=== PATIENT | female | born 1950 | race Caucasian/White ===

== ENCOUNTER → 2021-03-01 11:41 | Outpatient (CLI) | payer MEDICARE, SELFPAY ==
--- NOTE | 2021-03-01 | EMB_PTH ---
PATIENT: MARCELLO CARRILLO LOC: [facility] U#:[id number] AGE/SX: 75/F ROOM: RE03/01/[address]: Dr. Bart Ceballos MD : 1950 BED: DIS: SPEC #: [id number] RECD: 03/01/21 13:30 STATUS: JOHNNY PAOLA #: [id number] ALVIN: 03/01/21 00:[address]: Bart Ceballos DEPT: SURGICAL PATHOLOGY RECD BY: Remigio Mcconnell Tissues: Endometrium, NOS Procedures: Surgery Specimen Level IV HEADER OPERATION: Endometrial biopsy PRE-OP DIAGNOSIS: Endometrial thickening TISSUE SUBMITTED: Endometrial biopsy MICROSCOPIC DIAGNOSIS Endometrial biopsy: Scant fragments of benign endometrial epithelium, consistent with atrophic endometrium. See comment. ISAIAS:christofer 03/04/2021 COMMENT The specimen predominantly consists of mucoid tissue. Clinical correlation and appropriate follow up are necessary. MICROSCOPIC DESCRIPTION Slides are reviewed. GROSS DESCRIPTION Received in fixative is one container labeled with the patient's name and designated EMB. The specimen consists of multiple fragments of hemorrhagic mucoid tissue that in aggregate measure 2.5 x 1 x 0.2 cm. The specimen is totally submitted in one cassette. / ISAIAS:christofer 03/01/21 TC:4 CPT: 80998
== END ==
PROVIDERS: Visit Provider Obstetrics & Gynecology
DX: R93.89 Abnormal findings on diagnostic imaging of other specified body structures (principal)
CPT/HCPCS: 88305

== ENCOUNTER 2021-03-25 09:29 | Day surgery (SDC) | payer MEDICARE, SELFPAY ==
--- NOTE | 2021-03-21 11:10 | EKG12_ITS ---
Test Reason : PREOP Blood Pressure : / mmHG Vent. Rate : 066 BPM Atrial Rate : 066 BPM P-R Int : 172 ms QRS Dur : 082 ms QT Int : 410 ms P-R-T Axes : 078 028 043 degrees QTc Int : 429 ms Normal sinus rhythm Low voltage QRS Borderline ECG Confirmed by CLARK PIRES, ABRAHAM ([id number]), editorial manager JEFFREY ADAN ([id number]) on 03/22/2021 11:19:59 A M Referred By: Bart Ceballos Confirmed By:CARINA RODAS MD
[2021-03-21 11:44] LABS: Hematocrit 43.7 % (37-47); Mean Corpuscular Hgb 29.6 pg (27.0-32.0); Mean Corpuscular Volume 92.4 fL (81-99); Mean Platelet Vol. 9.3 fl (6.2-12.0); Platelet Count 366 K/mm3 (150-450); RBC Distribution Width CV 12.4 % (11.6-14.6); RBC Distribution Width SD 42.6 fl (35.1-43.9); Red Blood Count 4.73 M/mm3 (4.2-5.4); White Blood Count 7.9 K/mm3 (4.4-11.0)
[2021-03-21 11:49] LABS: Partial Thromboplast Time 22.5 Seconds (24.1-36.2); Prothrombin Time (Protime)PT. 12.5 SECONDS (11.7-14.9)
[2021-03-21 12:06] LABS: ALB/GLOB Ratio 0.8 RATIO (0.9-2.4); AST(SGOT) 33 U/L (15-37); Alanine Aminotransfer ALT/SGPT 47 U/L (13-56); Albumin, Serum 3.1 g/dL (3.2-5.0); Alkaline Phosphatase 72 U/L (45-117); Anion Gap 7 (5-15); BUN 14 mg/dL (7-18); BUN/Creat Ratio 17.7 RATIO (10-20); Calcium,Total 9.1 mg/dL (8.5-10.1); Chloride 105 mmol/L (98-107); Creatinine, Serum 0.79 mg/dL (0.55-1.02); EST Glomerular Filtration Rate 76 mL/min (>60); Est Glom Filt Rate - Afr Amer 92 mL/min (>60); Glucose 95 mg/dL (74-106); Protein, Total 7.1 g/dL (6.4-8.2); Sodium Level 140 mmol/L (136-145)
--- NOTE | 2021-03-24 20:48 | HP.PCM_ITS ---
History and Physical Date of Admission: 03/25/21 Surgical History and Physical Jessika Mccain, a 70 year old female 3 0 0 0 3, presents for D and C, Hysteroscopy on March 25, 2021 at 12:30. -- Thickened Endometrium -- Jessika presents here today as referral from Shu Chow PA-C for thickened Endometrium. 70 y.o. G 3 P 3 post-menopausal non-smoker and reports that she had been having trouble with her lower back and had an MRI which revealed spurs on her back, but also a need for an US that she had at [facility] on 01-30-21 with thickened Endometrium of 15.9 mm . 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 Thick endometrium Jessika claims it started US 01-30-21 at [facility] and has been present 4 weeks ago. It occurs all the time. It is located in the Uterus. Jessika characterizes the quality asymptomatic. Severity is moderate and very concerned. Additional comments are: denies any vaginal bleeding. MEDICATIONS HISTORY: Patient is also takin. lisinopril 20 mg-hydrochlorothiazide 25 mg tablet, One pill by mouth once a day 2. metoprolol succinate ER 50 mg tablet,extended release 24 hr, One pill by mouth once a day ALLERGIES: No Known Allergies Infections - Chicken pox, Mumps and Measles Illnesses - HTN, Spurs on Back, Meineires Dx Accidents - None Hospitalizations - see surgery Review of Systems: GENERAL - Denies fever, or chills SKIN - Denies skin changes EYES - Denies visual changes EARS - Denies difficulty hearing NOSE - Denies nasal congestion or bleeding MOUTH - Denies sore throat or difficulty swallowing NECK - Denies pain or swelling RESPIRATORY - Denies shortness of breath or wheezing CARDIOVASCULAR - Denies palpitations or chest pain GASTROINTESTINAL - Denies nausea, vomiting, diarrhea, constipation GENITOURINARY - Denies dysuria, frequency of urination, incontinence of urine MUSCULOSKELETAL - Denies joint or muscle pain NEUROLOGICAL - Denies localized numbness or weakness PSYCHIATRIC - Denies depression or anxiety ENDOCRINE - Denies heat or cold intolerance, weight loss or gain HEMATO-IMMUNOLOGIC - Denies excesive bleeding with cuts SOCIAL HISTORY: Alcohol Use - None Smoking - Never Diet - no special diet Lifestyle - moderate stress lifestyle and Exercise - minimal Seat Belt Use - always Employer - [employer] Illicit Drug Use - None Sexual Activity - Spouse-Sig Other Name - Ar Spouse-Sig Other Occupation - [employer] Children Name(s) - 3 children Control - postmenopausal FAMILY HISTORY: MENSTRUAL HISTORY: LMP Known?- Postmenopausal PAST PREGNANCIES: Total Pregnancies - 3; Full Term Pregnancies - 3; Premature - 0; Abortions, Induced - 0; Abortions, Spontaneous - 0; Ectopics - 0; Multiple Births - 0; Living Children - 3 PHYSICAL EXAM BP- 138/74 Sitting, Right arm, large cuff Weight- 236.48445 lbs Height- 61.5 inch BMI:43.96 CONSTITUTIONAL - NAD, well nourished, and well developed SKIN - No rash, lesions, or ulcers HEENT - Normocephalic, PERRLA, EOMI NECK - No nodes, no nuchal rigidity and thyroid normal size and texture LYMPH NODES - Palpation of lymph nodes in neck and groins within normal limits LUNGS - CTA x2 without wheezes, crackles or rales CARDIAC - Regular rate and rhythm without rubs, murmurs, or gallops ABDOMEN - Without hepatosplenomegaly, distention, masses, rebound, or guarding; normal bowel sounds; no hernias EXTREMITIES - No edema or calf tenderness NEUROLOGICAL - Cranial nerves II-XII grossly intact PSYCHIATRIC - A and O to time, place, person, mood and affect External Genitial Vagina - non-tender without lesions Urethra/Urethral Meatus - non-tender Bladder - non-tender Vagina - loss of rugae and lax vaginal sidewalls Cervix - without cervical motion tenderness and has normal size and features without evident lesions Uterus - uterus 6-7 cm non tender Adnexa - clear without massess or tenderness ASSESSMENT/PLAN: 1. Abnormal Findings On Diagnostic Imaging Of Other Specified Body Structures EMBx results benign in the office. Likely polyp. Will proceed with D and C, H/S. Discussed RBAs and all questions answered.
--- NOTE | 2021-03-24 20:49 | PCM.HP.BLA ---
History and Physical Date of Admission: 03/25/21 Surgical History and Physical Wanda Denton, a 42 year old female 5 0 0 0 5, presents for L/S LSO and right salpingectomy on March 25, 2021 at 1:30. -- Chronic LLQ Pain; Prior ESSURE -- Concerns regarding LLQ pain from a (L) Ovarian cyst found on US in . 42 y.o. G 5 P 5 non-smoker with history of Irregular Menses and LMP of 12-25-20. Reports that the pain will often radiate around to her back, often cramping with a pulling, stabbing sensation. Adds that she feels very bloated and just not feeling well. LLQ Pain began 6 months ago. Wanda claims it started gradually and has been present Cyst on Ovary seen in . It occurs all the time. It is located in the LLQ of the abdomen. Wanda characterizes it to be to the back. Wanda characterizes the quality cramping.; Wanda characterizes the quality searing.; Wanda characterizes the quality stabbing. Severity is moderate and not improving; Associated signs and symptoms are no menses for 3-4 months. Additional comments are: Feels awful. Additional comments are: cyst noted on left ovary in November. MEDICATIONS HISTORY: Current medications prescribed by our practice are: 1. Provera 10 mg tablet, One pill by mouth once a day ALLERGIES: NKA Infections - Chicken pox Illnesses - no serious past illnesses Accidents - no injuries of consequence Hospitalizations - Childbirth Review of Systems: GENERAL - Denies fever, or chills SKIN - Denies skin changes EYES - Denies visual changes EARS - Denies difficulty hearing NOSE - Denies nasal congestion or bleeding MOUTH - Denies sore throat or difficulty swallowing NECK - Denies pain or swelling RESPIRATORY - Denies shortness of breath or wheezing CARDIOVASCULAR - Denies palpitations or chest pain GASTROINTESTINAL - Denies nausea, vomiting, diarrhea, constipation GENITOURINARY - Denies dysuria, frequency of urination, incontinence of urine MUSCULOSKELETAL - Denies joint or muscle pain NEUROLOGICAL - Denies localized numbness or weakness PSYCHIATRIC - Denies depression or anxiety ENDOCRINE - Denies heat or cold intolerance, weight loss or gain HEMATO-IMMUNOLOGIC - Denies excesive bleeding with cuts SOCIAL HISTORY: Alcohol Use - occasionally Smoking - denies use Diet - no special diet Lifestyle - Exercise - active Seat Belt Use - always 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 Maternal Grandfather: Prostate CA. MENSTRUAL HISTORY: LMP Known?- DefiniteAmount/Duration - 4 days, Regularity - Irregular, Frequency - monthly days, LMP - 12/24/20, Age Onset Menarche - 14 PAST PREGNANCIES: Total Pregnancies - 5; Full Term Pregnancies - 5; Premature - 0; Abortions, Induced - 0; Abortions, Spontaneous - 0; Ectopics - 0; Multiple Births - 0; Living Children - 5 SURGICAL HISTORY: 1. 05/30/2010 Essilana Tubal ; Bart Ceballos M.D. - PHYSICAL EXAM BP- 100/70 Sitting, Right arm, regular cuff Weight- 144.54102 lbs Height- 69.00 inch BMI:21.43 CONSTITUTIONAL - NAD, well nourished, and well developed SKIN - No rash, lesions, or ulcers HEENT - Normocephalic, PERRLA, EOMI NECK - No nodes, no nuchal rigidity and thyroid normal size and texture LYMPH NODES - Palpation of lymph nodes in neck and groins within normal limits LUNGS - CTA x2 without wheezes, crackles or rales CARDIAC - Regular rate and rhythm without rubs, murmurs, or gallops ABDOMEN - Without hepatosplenomegaly, distention, masses, rebound, or guarding; normal bowel sounds; no hernias EXTREMITIES - No edema or calf tenderness NEUROLOGICAL - Cranial nerves II-XII grossly intact PSYCHIATRIC - A and O to time, place, person, mood and affect ASSESSMENT/PLAN: 1. Abdominal Pain,LLQ Likely persistent left ovarian cyst by history and time course. Not resolving. Will proceed with L/S LSO and RS. Discussed RBAs including possibility of not helping or need for laparotomy.
[2021-03-25] VITALS (9 sets, daily range): BP systolic 137–169; BP diastolic 65–97; PULSE 58–70; RESP 16; TEMP 36.2–36.5; O2SAT 95–97; BMI 42.9
[2021-03-25] MEDS: Lactated Ringers 1,000 ML 100 ML IV (10:26)
--- NOTE | 2021-03-25 11:41 | PCM.OPRPT ---
Problems Associated Problem List Diagnoses (1) Abn findings- organs: Report of Operation Date of Procedure: 03/25/21 Pre-Operative Diagnosis: Thickened Endometrial Lining in Postmenopausal Patient Post-Operative Diagnosis: Thickened Endometrial Lining in Postmenopausal Patient Surgery/Procedure Performed:: Diagnostic Hysteroscopy, Dilation and Curettage Description of Surgical Findings:: 8 cm endometrial cavity with 1 x 3 cm endometrial polyp noted. Cervix high in vagina which would make robotic approach preferred if hysterectomy is necessary Surgeon: Bart Ceballos Type of Anesthesia: MAC Anesthesiologist: Ross Ayers Specimen's removed: Endocervical and endometrial curettings Estimated Blood Loss (mL): Minimal Fluids Replaced: Crystalloid Description of Procedure: Indications: This is a 70 year old patient who had a recent ultrasound done which showed a thickened endometrium of 15 mm. Given this we decided to proceed with the above surgery. The patient has been counseled regarding the risk and indications of this procedure including the possibility of bleeding, infection, and injury to surrounding structures such as bowel bladder. All questions were answered and we consider the patient well-informed. Procedure: The patient was taken to the operating room where after induction of general anesthesia, she was placed in the dorsolithotomy position and prepped and draped in the usual sterile fashion. Anterior cervix was grasped with the tenaculum and dilated to about 4-5 mm. Endocervical curettings were obtained. A 3 mm hysteroscope was placed in the uterus of the above findings were noted. Cervix was dilated to about 7-8 mm and uterus was gently curetted removing all contents. Hysteroscope was reinserted and all material was noted to be removed. In the course of the procedure approximately 100 cc of saline distending media was used and virtually all of this was recovered. Patient tolerated procedure well was taken to recovery room in satisfactory condition sponge instrument and needle counts were all reportedly correct. Estimated blood loss for the case was minimal. Specimens to pathology was endometrial and endocervical curettings Complications: None Grafts/Implants Used: None Complications None Admit VTE Documentation VTE Present on Admission: Yes VTE Mechan Device Prophylaxis: SCD's
--- NOTE | 2021-03-25 11:45 | DCINST_ITS ---
Discharge Instructions Diet Discharge Diet: No restrictions (Increase fluid intake for the next 48 hours.) Activity Discharge Activity: Return to Normal Activity, May not drive while taking narcotic pain medications., May Shower and May Take a Tub Bath May resume sexual activity in: 1 week Additional Activity Instructions:: Ambulate often the next week after surgery. Nothing in the vagina for 1 week. Dressing / Incision Call your doctor if your incision/area has: Continuous Slow Oozing, Sudden Increased Bleeding, Increased Pain/ Swelling, Increased Redness and Foul Smell ing Discharge Call your doctor if you observe: Fever of 101 or Higher, Inability to urinate, Inability to have a bowel movement and Using more than one pad per hour Follow Up Care Please Follow Up With: Bart Ceballos MD When: Call [phone] for an appointment in 2 to 3 weeks Test Results: Test results from this visit will be discussed in further detail at your follow-up appointment, if applicable. Discharge Plan Admission Primary Reason for Your Visit: Dilation and Curettage Attending Provider: Bart Ceballos Primary Care Provider: Shu Chow Discharge Orders/Prescriptions Prescriptions: Continued metoprolol tartrate 50 mg Tablet 50 mg PO DAILY RF: 0 lisinopril-hydrochlorothiazide 20-25 mg Tablet 1 tab PO DAILY RF: 0 calcium carbonate-vitamin D3 [Calcium 600 + D(3)] 600 mg(1,500mg) -400 unit Tablet 3 tab PO DAILY RF: 0 Referrals / Follow Up: hSu Chow PA [Primary Care Provider] - Disposition Disposition (needs filled in before D/C Order can be placed): Home, self care
--- NOTE | 2021-03-25 12:30 | EMB_PTH ---
PATIENT: MARCELLO [place]RILLO [place] [facility] [place][id number] AGE/SX: 70/F ROOM: RE03/25/[address]: Dr. Bart Ceballos MD : 1950 BED: DIS: 03/25/2021 SPEC #: [id number] RECD: 03/25/21 15:26 STATUS: JOHNNY PAOLA #: [id number] ALVIN: 03/25/21 12:[address]: Bart Ceballos DEPT: SURGICAL PATHOLOGY RECD BY: Katerin Scales ENTERED: 03/26/21 08:28 SP TYPE: ENDOM BX/C MANUELA DR: JUVENTINO Pérez Tissues: A - Endocervical B - Endometrium, NOS Procedures: Surgery Specimen Level IV HEADER OPERATION: Hysterectomy, dilation and curettage PRE-OP DIAGNOSIS: Thickened endometrial lining in postmenopausal patient TISSUE SUBMITTED: A ? Endocervical curettage, B ? Endometrial curettings MICROSCOPIC DIAGNOSIS A. Endocervix, curettings: Strips of benign superficial endocervix and squamous mucosa. B. Endometrium, curettings: Polypoid fragments of simple cystic hyperplasia without atypia. AM:christofer 03/27/2021 MICROSCOPIC DESCRIPTION Slides are reviewed. GROSS DESCRIPTION A - Received in fixative is one container labeled with the patient's name and designated endocervical curettings. The specimen consists of multiple irregular fragments of sofia mucoid tissue that in aggregate measure 2 x 1 x 0.1 cm. The specimen is totally submitted in one cassette. B - Received in fixative is one container labeled with the patient's name and designated endometrial curettings. The specimen consists of multiple variable sized fragments of sofia-pink polypoid tissue measuring in aggregate 3.5 x 3 x 1 cm. The largest piece measures 1.7 cm in greatest dimension. The largest piece is serially sectioned. The intermediate sized piece is bisected. The entire specimen is submitted in three cassettes. / SJ:christofer 03/26/21 TC:5 CPT: 86021 x2
== END 2021-03-25 13:58 | disposition home or self-care (01) ==
LOC: SDC 09:32 → AC 09:33
PROVIDERS: PCP Physician Assistant; Referring Provider Obstetrics & Gynecology; Visit Provider Obstetrics & Gynecology
PROC: 0UDB8ZZ Extraction of Endometrium, Via Natural or Artificial Opening Endoscopic (ICD-10-PCS; CPT 58558; principal; 2021-03-25 12:20)
DX: N85.01 Benign endometrial hyperplasia (principal); M19.90 Unspecified osteoarthritis, unspecified site; E78.00 Pure hypercholesterolemia, unspecified; I10 Essential (primary) hypertension; Z79.899 Other long term (current) drug therapy; Z87.891 Personal history of nicotine dependence; R94.31 Abnormal electrocardiogram [ECG] [EKG]
CPT/HCPCS: 00952; 58558; 36415; 80053; 85027; 85610; 85730; 86850; 86900; 86901; 87426; 88305; 93005; C9803; J7120; A4216

== ENCOUNTER 2025-03-20 11:03 | Day surgery (SDC) | payer MEDICARE, SELFPAY ==
[2025-03-20] VITALS (9 sets, daily range): BP systolic 122–171; BP diastolic 44–83; PULSE 54–65; RESP 14–16; TEMP 36.6–36.9; O2SAT 97–99; BMI 34.2
--- NOTE | 2025-03-20 11:15 | PCM.PRE.AN2 ---
ASA Classification* ASA Classification ASA Classification: 2 Assessment & Plan Anesthesia* Anesthesia Assessment Anesthesia Assessment: Discussed sedation and/or anesthesia options, risks, benefits, and alternatives with patient/parents/legal guardian/POA. Questions invited. The patient/parents/legal guardian/POA seems to understand and agrees to proceed with anesthesia plan. Reviewed the physical assessment, medical history, allergy history and patient home medications list prior to surgery/procedure/anesthetic and documented any changes. Performed airway and anesthesia risk assessments. Anesthesia Type Anesthesia Type: MAC Anesthesia Focused Assessment* Airway Assessment Mouth opens: >3 cm Mallampati Score: II Focused Labs Anesthesia Preop lab: CBC WBC 7.7 K/mm3 (4.4-11.0) 03/09/25 10:15 03/09/25 RBC 4.57 M/mm3 (4.2-5.4) 03/09/25 10:15 03/09/25 Hgb 13.9 g/dL (12.0-15.0) 03/09/25 10:15 03/09/25 Hct 41.3 % (37-47) 03/09/25 10:15 03/09/25 Plt Count 382 K/mm3 (150-450) 03/09/25 10:15 03/09/25 CHEMISTRY Potassium 4.2 mmol/L (3.3-5.1) 03/09/25 10:15 03/09/25 Sodium 139 mmol/L (133-145) 03/09/25 10:15 03/09/25 BUN 15 mg/dL (4-19) 03/09/25 10:15 03/09/25 Creatinine 0.74 mg/dL (0.70-1.20) 03/09/25 10:15 03/09/25 Glucose 101 mg/dL (70-99) H 03/09/25 10:15 03/09/25 COAG PT 12.5 SECONDS (11.7-14.9) 03/21/21 11:01 03/21/21 Pre-Assessment Diagnosis/Proposed Procedure Planned Operative Procedure(s): INSERTION VASCULAR PORT LEFT Anesthesia History 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 When Was Last Pacemaker Check QUESTION #4 FULL TEXT: You/Your Family Experience fever (hyperthermia) with Anesthesia Last Oral Intake Last Oral intake: Last Oral Intake NPO since Meds taken in AM with sips of water? Meds patient instructed to take am of surgery PONV PONV - internet sales representative: PONV - internet sales representative Female Yes 03/17/25 11:44 HX of Motion Sickness No 03/17/25 11:44 HX of N/V After Surgery No 03/17/25 11:44 Non-Smoker Yes 03/17/25 11:44 Duration of Surgery greater No 03/17/25 11:44 than 60 minutes Number of Risk Factors 2 03/17/25 11:44 PONV Score Moderate Risk 03/17/25 11:44 Height & Weight Height & Weight: Anesthesia: Height & Weight Height 5 ft 2 in 03/17/25 08:59 Weight: 84.822 kg 03/17/25 08:59 Respiratory Assessment Respiratory Assessment - internet sales representative: Respiratory Tract Infection Hx - internet sales representative Hx Respiratory Tract Infection No 03/17/25 11:44 STOP Sleep Apnea STOP Sleep Apnea - internet sales representative: STOP Sleep Apnea - internet sales representative Hx Hypertension Yes: controlled with med 03/17/25 11:44 Hx Sleep Apnea No 03/17/25 11:44 CPAP Yes 03/17/25 11:44 BIPAP Do you snore loudly (louder No 03/17/25 11:44 than talking or can be heard Do you often feel tired/ No 03/17/25 11:44 fatigued/ sleepy during daytime? Has anyone observed you stop No 03/17/25 11:44 breathing during sleep? STOP Results Negative 03/17/25 11:44 QUESTION #5 FULL TEXT : Do you snore loudly (louder than talking or can be heard through closed doors)? Tobacco Use History Tobacco Use History - internet sales representative: Tobacco Use History - internet sales representative Tobacco Use Non-smoker 03/18/21 09:51 Smoking Status Former smoker 03/17/25 11:44 Hx Tobacco Use No 03/17/25 11:44 Years Smoking Packs Smoked per Day Smoking Cessation Date was No - quit smoking greater 03/17/25 11:44 within the last 15 years than 15 years ago Hx Smoking Cessation Date 11/02/89 03/17/25 11:44 Hx Smoking Cessation No 03/17/25 11:44 Counseling Hematologic Medial History Hematologic Hx - internet sales representative: Hematologic Medical Hx - senior counsel commercial Hx of Blood Transfusion No 03/17/25 11:44 Hx of Transfusion in last 3 No 03/17/25 11:44 Months Date of Last Transfusion (if within last 3 months) Ever experience any problems No 03/17/25 11:44 with transfusion(s)? Specify any problems Hx of Preganancy in last 3 No 03/17/25 11:44 Months Nurse Filling Out Transfusion DSCHRIBER 03/17/25 11:44 & Questions: Date: 03/17/25 03/17/25 11:44 Time: 11:45 03/17/25 11:44 Patient unable to answer at this time (ie. confused, unrespo /Reproduction History /Reproductive History - internet sales representative: /Reproductive Hx- internet sales representative Hx Now Gestational Age (in weeks): EDC: Hx Hx Para Hx Section SAB No 03/17/25 11:44 Active Medications Active Medications: Current Medications Generic Name Dose Route Start Last Admin Trade Name Freq PRN Reason Stop Dose Admin Cefazolin Sodium 2 gm/ Sodium 110 mls @ 150 mls/hr 03/20/25 12:30 Chloride IV 03/20/25 13:13 INTRAOP ONE PFSH Medical History Loss of hearing Wears glasses Post-menopausal Cancer Asthma History of pain when walking Encounter for education Regional lymph node metastasis present Degenerative joint disease Arthritis High cholesterol Migraine headache History of Meniere's disease Former smoker Hx of echocardiogram Hypertension Home Medications ?Medication ?Instructions ?Recorded ?Last Taken ?Type lisinopril 20 1 tab PO DAILY 03/18/21 03/25/21 History mg-hydrochlorothiazide 25 mg tablet metoprolol tartrate 50 mg tablet 50 mg PO DAILY 03/18/21 03/25/21 History multivitamin 1 tab PO QDAY 03/06/25 Unknown History turmeric 400 mg capsule 400 mg PO DAILY 03/06/25 Unknown History lidocaine-prilocaine 2.5 %-2.5 % 1 applic topical ONCE PRN port 03/15/25 Unknown Rx topical cream access 30 days #30 grams ondansetron 8 mg disintegrating 8 mg PO Q8H PRN nausea and 03/15/25 Unknown Rx tablet vomiting #30 tabs prochlorperazine maleate 10 mg 10 mg PO Q6H PRN nausea and 03/15/25 Unknown Rx tablet vomiting #30 tabs Allergy/AdvReac Type Severity Reaction Status Date / Time No Known Allergies Allergy Verified 03/17/25 11:42 Family History Father Heart disease Aunt Breast cancer Surgical History History of hysteroscopy History of colectomy History of total right knee replacement Hx of colonoscopy Social History Smoking Status: Former smoker Tobacco: How many years used: 5 alcohol intake: never substance use type: does not use Review of Systems (Anesthesia) ROS Narrative System reviewed and no additional complaints, except as documented.
--- NOTE | 2025-03-20 12:05 | PCM.HP.STD ---
HPI - General General Date of Admission: 03/20/25 Date of Service: 03/20/25 Chief Complaint: Mediport placement HPI Narrative MARCELLO CARRILLO, is a 74 F who presents today for Mediport placement. She was recently discovered to have colon cancer. Her treating oncologist have recommended chemotherapy. She is supposed to begin chemotherapy I believe on March 21. [facility] Medical History Loss of hearing Wears glasses Post-menopausal Cancer Asthma History of pain when walking Encounter for education Regional lymph node metastasis present Degenerative joint disease Arthritis High cholesterol Migraine headache History of Meniere's disease Former smoker Hx of echocardiogram Hypertension Home Medications ?Medication ?Instructions ?Recorded ?Last Taken ?Type lisinopril 20 1 tab PO DAILY 03/18/21 03/25/21 History mg-hydrochlorothiazide 25 mg tablet metoprolol tartrate 50 mg tablet 50 mg PO DAILY 03/18/21 03/20/25 07:00 History multivitamin 1 tab PO QDAY 03/06/25 Unknown History turmeric 400 mg capsule 400 mg PO DAILY 03/06/25 Unknown History lidocaine-prilocaine 2.5 %-2.5 % 1 applic topical ONCE PRN port 03/15/25 Unknown Rx topical cream access 30 days #30 grams ondansetron 8 mg disintegrating 8 mg PO Q8H PRN nausea and 03/15/25 Unknown Rx tablet vomiting #30 tabs prochlorperazine maleate 10 mg 10 mg PO Q6H PRN nausea and 03/15/25 Unknown Rx tablet vomiting #30 tabs Allergy/AdvReac Type Severity Reaction Status Date / Time No Known Allergies Allergy Verified 03/20/25 11:27 Family History Father Heart disease Aunt Breast cancer Surgical History History of hysteroscopy History of colectomy History of total right knee replacement Hx of colonoscopy Social History Smoking Status: Former smoker Tobacco: How many years used: 5 alcohol intake: never substance use type: does not use Vital Signs Vital Signs Vital Signs: Weight Weight: 187 lb Assessment & Plan Assessment/Plan (1) Colon cancer: QUALIFIERS: Colon location: ascending Qualified Code(s): C18.2 - Malignant neoplasm of ascending colon PLAN: Plan Patient is a 74-year-old female with recently discovered and treated colon cancer. Her treating oncologist are recommending chemotherapy. She presents today for port placement. This will begin shortly
[2025-03-20] MEDS: Lactated Ringers 1,000 ML 15 ML IV (12:12)
[2025-03-20] MEDS: Cefazolin 2 GM in 0.9% Normal Saline (100mL Bag) 100 ML IV (12:30)
[2025-03-20] MEDS: Lidocaine 1% /Epi 1:100 (20ml) 20 ML Vial (12:57)
[2025-03-20] MEDS: Bupivacaine Mpf 0.5% 30 ML VIAL (12:57)
--- NOTE | 2025-03-20 13:16 | EX.PCM.DISCH ---
Discharge Instructions Diet Discharge Diet: Light diet - advance as tolerated Activity Discharge Activity: May Shower May shower in (days): 2 Ice area for (Minutes): 30 Dressing / Incision Call your doctor if your incision/area has: Continuous Slow Oozing, Sudden Increased Bleeding, Increased Pain/ Swelling, Increased Redness, Foul Smelling Discharge and Swelling at the incision site Call your doctor if you observe: Fever of 101 or Higher Cleanse incision/area with: Soap & Water Follow Up Care Please Follow Up With: Michael Gaines MD When: as needed Test Results: Test results from this visit will be discussed in further detail at your follow-up appointment, if applicable. Discharge Plan Admission Primary Reason for Your Visit: Mediport placement Attending Provider: Michael Gaines Primary Care Provider: Shu Chow Instructions Print Language: Latvian Discharge Orders/Prescriptions Prescriptions: New oxycodone-acetaminophen [Percocet] 5-325 mg tablet 1 tab PO Q8H PRN (Reason: pain) 3 Days Qty: 5 0RF Continued multivitamin Tablet 1 tab PO QDAY turmeric 400 mg capsule 400 mg PO DAILY lidocaine-prilocaine 2.5-2.5 % cream 1 applic topical ONCE PRN (Reason: port access) 30 Days Qty: 30 2RF ondansetron 8 mg tablet,disintegrating 8 mg PO Q8H PRN (Reason: nausea and vomiting) Qty: 30 2RF prochlorperazine maleate 10 mg tablet 10 mg PO Q6H PRN (Reason: nausea and vomiting) Qty: 30 2RF metoprolol tartrate 50 mg Tablet 50 mg PO DAILY lisinopril-hydrochlorothiazide 20-25 mg Tablet 1 tab PO DAILY Referrals / Follow Up: Shu Chow PA [Primary Care Provider] - Disposition Disposition (needs filled in before D/C Order can be placed): Home, Self Care
--- NOTE | 2025-03-20 13:17 | PCM.POST.ANE ---
Anesthesia: Postop Eval I Current Vital Signs Temperature: 97.9 F Pulse Rate: 54 Blood Pressure: 124/52 Respiratory Rate: 14 Pulse Ox: 97 Oxygen Delivery Method: Room Air Assessment Airway patent: Yes Spontaneous unlabored respirations: Yes Mental status: Awake nausea: No Vomiting: No Anesthesia Complication: No Fluid Hydration Crystalloid volume administer (ml): 500 Total IV fluid infused: 500 Progress Note Anesthesia document: Postop Eval 1 completed: Yes
--- NOTE | 2025-03-20 13:21 | PCM.OPRPT ---
Problems Associated Problem List Diagnoses (1) Colon cancer: Procedures Cardiovascular CF Procedures [id number]: [id number] Insert tunneled cv cath Operative Report (Standard) Operative Information Date of Procedure: 03/20/25 Pre-Operative Diagnosis: Colon cancer Post-Operative Diagnosis: Colon cancer Surgery/Procedure Performed: Left subclavian Mediport placement with C arm extension service advisor: No Type of Anesthesia: Local and MAC RN Documented Start/Stop Times: Operation Date: 03/20/25 12:30 Case Time Into Pre-Op 03/20/25 11:17 Out of Pre-Op 03/20/25 12:24 Anesthesia Start 03/20/25 12:27 Into Room 03/20/25 12:27 Procedure Start 03/20/25 12:43 Procedure End 03/20/25 13:08 Anesthesia End 03/20/25 13:11 Out of Room 03/20/25 13:11 Into Recovery 03/20/25 13:15 Procedure Start Time: 12:43 Procedure Stop Time: 13:08 Select all DRAINS/GRAFTS/IMPLANTS that apply: Implanted device Implanted device details: PowerPort injectable Mediport Special Medications: 2 g Ancef IV preop Estimated Blood Loss: 5 mL Specimen collected: No Description of surgery: The patient is a 74-year-old female who was recently seen in the office with a new diagnosis of colon cancer. She has undergone surgery and her treating oncology team is recommending chemotherapy. As a result she presents for placement of a Mediport. In the office we discussed the details of the planned procedure as well as risks benefits and alternatives. She wishes to proceed. The patient was brought to the operating today following informed consent. Preoperative antibiotics were given and a timeout was performed. She was placed supine on the operative table with arms outstretched and arm boards. A MAC anesthesia was induced. Once adequately sedated an axillary roll was placed between her shoulder blades to improve exposure. The left upper chest and neck regions were prepped and draped in the usual manner. Local anesthetic was then injected in the left periclavicular area. Then using the supplied needle and syringe I was able to gain access to the left subclavian vein on the first pass. The blood return was a dark red, nonpulsatile, venous appearing blood return. The supplied guidewire was then threaded through the aperture and the needle. This was advanced without difficulty. It was secured to the drapes using a curved hemostat. C-arm was brought in and confirmed good positioning of the wire. A small incision was made in the left upper chest for placement of the subcutaneous hub of the port. Local anesthetic was injected into this area. Incision was made using #15 blade. Bovie electrocautery was then used dissect down through the subcutaneous tissues. A subcutaneous pocket was created. Another small incision was made at the entry point of the guidewire. The Mediport tubing was then attached to the tunneling device and this was used to tunnel with a tubing into the larger incision and up and out through the smaller more superior incision. Tubing was then trimmed to about 20 cm. No bed then attached to the port hub. The hub was then affixed to the underlying pectoralis fascia using Prolene suture x 2. The dilator and tear-away sheath were then threaded over the guidewire and was advanced. C arm was used to confirm good placement. The dilator and guidewire were then removed thus leaving that sheath in place. The free end of the Mediport tubing was then threaded down the sheath. The sheath was then extracted. The port was tested using injectable saline. It mirza and flushed easily. Hemostasis was excellent. The wound was then closed with 3-0 Vicryl and 4-0 Vicryl. Skin glue was applied as dressing. The port was then accessed using 1 inch Mccain needle accessing tubing. A sterile 2 x 2 was placed underneath the accessing needle. A large Tegaderm was then applied over the entire area. The access and tubing was able to draw and flush easily. It was then flushed with heparin flush. The patient was awakened from anesthesia and taken to recovery in good condition. Surgical Findings: See operative note Complications Complications: No Admit VTE Documentation VTE Present on Admission: No VTE Mechan Device Prophylaxis: SCD's VTE Pharm Prophylaxis ordered?: No Reason prophylaxis not ordered: Treatment Not Indicated
--- NOTE | 2025-03-20 13:23 | RAD_ITS ---
PROCEDURE: CXR FOR LINE PLACEMENT 03/20/2025 REASON FOR EXAM: NEW PORT PLACEMENT TECHNIQUE: Single AP upright view of the chest COMPARISON: November 17, 2024 FINDINGS: Heart normal size. New left central venous port in good position terminating in the superior vena cava. No infiltrates. No pleural effusions. No pneumothorax. Osseous structures grossly appear intact. RAD/CXR for Line Placement IMPRESSION: 1. New left central venous port in good position terminating in superior vena cava. 2. No infiltrates. 3. No pneumothorax. Reading [facility]
--- NOTE | 2025-03-20 14:24 | POSTOPAN2_ITS ---
Anesthesia Postop Eval I Sum Postop Eval Completion status Anesthesia document: Postop Eval 1 completed: Yes Anesthesia Postop Eval I Summary Anesthesia Postop Eval I Summary: Anesthesia Postop Eval I: Assessment Summary Airway patent Yes 03/20/25 13:18 REALTY [email or web address] Spontaneous unlabored Yes 03/20/25 13:18 REALTY [email or web address] [email or web address] respirations Mental status Awake 03/20/25 13:18 REALTY LOAN [email or web address] nausea No 03/20/25 13:18 REALTY LOAN [email or web address].[email or web address] Vomiting No 03/20/25 13:18 REALTY LOAN [email or web address].[email or web address] Anesthesia Postop Eval I: Fluid Summary Crystalloid volume administer 500 03/20/25 13:18 REALTY [email or web address] [email or web address] (ml) Colloids volume administered ( ml) Blood Product volume administered (ml) Total IV fluid infused 500 03/20/25 13:18 REALTY LOAN [email or web address].HBARR Anesthesia Postop Eval I: Summary Notes Anesthesia Complication No 03/20/25 13:18 REALTY [email or web address] Anesthesia Complication Comment: Post-operative progress note Anesthesia: Postop Eval II Evaluation Mental status: Awake Pain Level: 0 nausea: No Vomiting: No
--- NOTE | 2025-03-20 14:24 | PCM.POSTANE2 ---
Anesthesia Postop Eval I Sum Postop Eval Completion status Anesthesia document: Postop Eval 1 completed: Yes Anesthesia Postop Eval I Summary Anesthesia Postop Eval I Summary: Anesthesia Postop Eval I: Assessment Summary Airway patent Yes 03/20/25 13:18 NEW [email or web address] [email or web address] Spontaneous unlabored Yes 03/20/25 13:18 NEW [email or web address] [email or web address] respirations Mental status Awake 03/20/25 13:18 NEW GRAD [email or web address] nausea No 03/20/25 13:18 NEW GRAD [email or web address] Vomiting No 03/20/25 13:18 NEW GRAD [email or web address] Anesthesia Postop Eval I: Fluid Summary Crystalloid volume administer 500 03/20/25 13:18 NEW GRAD [email or web address] (ml) Colloids volume administered ( ml) Blood Product volume administered (ml) Total IV fluid infused 500 03/20/25 13:18 NEW GRAD [email or web address].HBARR Anesthesia Postop Eval I: Summary Notes Anesthesia Complication No 03/20/25 13:18 NEW GRAD [email or web address].HBARR Anesthesia Complication Comment: Post-operative progress note Anesthesia: Postop Eval II Evaluation Mental status: Awake Pain Level: 0 nausea: No Vomiting: No
== END 2025-03-20 14:56 | disposition home or self-care (01) ==
LOC: SDC 11:08 → AC 11:08
PROVIDERS: PCP Physician Assistant; Referring Provider Surgery; Visit Provider Surgery
PROC: (CPT 36561; principal; 2025-03-20 12:15)
DX: C18.2 Malignant neoplasm of ascending colon (principal); I10 Essential (primary) hypertension; J45.909 Unspecified asthma, uncomplicated; Z79.899 Other long term (current) drug therapy; Z87.891 Personal history of nicotine dependence
CPT/HCPCS: 36561; 00532; 71045; 77001; C1788; J2405

== ENCOUNTER 2025-05-13 12:10 | Inpatient (IN) | payer MEDICARE, SELFPAY ==
[2025-05-13] VITALS (13 sets, daily range): BP systolic 89–135; BP diastolic 53–92; PULSE 17–114; RESP 14–120; TEMP 36.8–38.3; O2SAT 94–99; BMI 32.5; BMI 33.9
--- NOTE | 2025-05-13 12:46 | CT_ITS ---
PROCEDURE: BRAIN/HEAD WITHOUT CONTRAST 05/13/2025 REASON FOR EXAM: HEAD TRAUMA TECHNIQUE: BRAIN/HEAD WITHOUT CONTRAST Coronal and Sagittal reconstruction series were provided. One or more dose reduction techniques were used (e.g., Automated exposure control, adjustment of the mA and/or kV according to patient size, use of iterative reconstruction technique. RADIATION DOSE SUMMARY: CTDlvol: 45 mGy DLP: 779 mGycm COMPARISON: None FINDINGS: Brain: There is calcification in the left parietal lobe measuring approximately 1.8 x 1.5 cm trans axially (series 2, image 26). No midline shift or mass effect. Bilateral basal ganglia calcifications. CSF Spaces: Unremarkable for age Sinuses/Mastoids: Clear at visualized levels Bones: No displaced fracture. Atherosclerotic calcification of the intracranial vasculature. CT/Brain/Head without Contrast IMPRESSION: Focal calcification in the left parietal lobe measuring up to 1.8 cm, concernin g for metastatic spread in this patient with history of colon cancer. Differential also includes other neoplasms (meningioma ) or sequela of prior insult (vascular, infectious/inflammatory). Recommend contrast-enhanced MRI for further evaluati on, if not previously performed. Reading Location: [id number]
--- OUTSIDE RECORDS SUMMARY | 2025-05-13 13:03 | XMS RPT_ITS | CCD ---
Author Organization [facility] Care Team Providers Care Decator Operator Name Role Phone Pavel Elkins Unavailable Unavailable Pavel Elkins Unavailable Unavailable Shu Chow PA-C Unavailable Shu Chow PA-C Unavailable Etta jewel lathe operator, . . Unavailable ENT Provider Unavailable Unavailable General Surgery Provider Unavailable Unavail able [facility], . Unavailable Lin PIRES, Dr. Bart Rausch Unavailable Orthopedic Provider Unavailable Unavailable Stella LAI, Hiral Shannon Unavailable [phone] Vanna AGRICULTURAL SCIENCES PROFESSOR, Becky Unavailable Joao ZHUN, Sasha Amador Unavailable Unavailable Keila ZHUN, Roverto Rausch Unavailable Unavailab Nicole Mcmillan Unavailable Unavailable Russ ZHUN, Irish Unavailable Unavailabl e Citlali AGRICULTURAL SCIENCES PROFESSOR, Venessa K Unavailable Josie Bray SECURITY INFRASTRUCTURE ENGINEER-C, Robin Shay Unavailable Khalida Loya RN Unavailable Unavailable Silvestre ZHUN, Karlie Unavailable Unavailable Nathalie Jett MA Unavailable Unavailable Benny AGRICULTURAL SCIENCES PROFESSOR, Andrew Unavailable Unavailable Unavailable Unavailable Carlie Xiao LPN Unavailable Unavailabl SHU Neves Consulting Unavailable KALPESH BOLES DR Admitting Unavailable KALPESH BOLES DR Attending Unavailable KALPESH BOLES DR Primary Care Unavailable PROVIDER, UNKNOWN Consulting Unavailable SHU CHOW Consulting Unavailable KALPESH BOLES DR Admitting Unavailable KALPESH BOLES DR Attending Unavailable KALPESH BOLES DR Primary Care Unavailable PROVIDER, UNKNOWN Consulting Unavailable SHU CHOW Consulting Unavailable BOLES, FLEX Primary Care Unavailable BOLES, FLEX Admitting Unavailable BOLES, FLEX Attending Unavailable PROVIDER, UNKNOWN Consulting Unavailable BOLES, FLEX Attending Unavailable CHOW, SHU J Consulting Unavailable BOLES, FLEX Primary Care Unavailable BOLES, FLEX Admitting Unavailable PROVIDER, UNKNOWN Consulting Unavailable CHOW, SHU J Consulting Unavailable BOLES, FLEX Primary Care Unavailable BOLES, FLEX Admitting Unavailable BOLES, FLEX Attending Unavailable PROVIDER, UNKNOWN Consulting Unavailable RAMSEY, YARI PAC Admitting Unavailable CHOW, SHU J Consulting Unavailable RAMSEY, YARI PAC Attending Unavailable RAMSEY, YARI PAC Primary Care Unavailable PROVIDER, UNKNOWN Consulting Unavailable CHOW, SHU J Consulting Unavailable CHOW, SHU J Primary Care Unavailable CHOW, SHU J Admitting Unavailable CHOW, SHU J Attending Unavailable PROVIDER, UNKNOWN Consulting Unavailable Chow PA-C, Shu J Primary Care Provider Santana TELLO, Hiral Mays Unavailable Unavaila brant LEGER, Sachi Foster Unavailable Zeferino TELLO, Eleonora Unavailable Unavailable Amy Zhang Unavailable Unavailable Chow PA-C, Shu J Primary Care Provider Cheryl MACARIO, Crystal Unavailable Unavail able Chow PA, Shu Primary Care Provider Shikha Marroquin LPN Attending Provider Unavailab Dr. Sachi Steward MD Referring Provider Dr. [place] MD Attending Provider Dr. [place] MD Referring Provider Chow PA, Shu Referring Provider Keila MELLO-C, Alyssa Attending Provider Dr. Michael Gaines MD Attending Provider Dr. Michael Gaines MD Referring Provider Dr. Michael Gaines MD Other Provider [phone] Dr. [place] MD Referring Provider Dr. [place] MD Referring Provider Dr. [place] MD Referring Provider MACKENZIE REYES Attending Unavailable CHOW, SHU J Primary Care Unavailable CHAKA, SACHI G Referring Unavailable CHOW, SHU J Referring Unavailable CHOW, SHU J Primary Care Unavailable CHOW, SHU J Referring Unavailable CHOW, SHU J Primary Care Unavailable CHAKA, SACHI G Attending Unavailable CHOW, SHU J Primary Care Unavailable CHAKA, SACHI G Attending Unavailable CHAKA, SACHI G Referring Unavailable CHOW, SHU J Primary Care Unavailable CHAKA, SACHI G Attending Unavailable CHAKA, SACHI G Referring Unavailable CHOW, SHU J Primary Care Unavailable BOLESFLEX Referring Unavailable CHAKA, SACHI G Attending Unavailable CHOW, SHU J Referring Unavailable CHOW, SHU J Primary Care Unavailable CHAKA, SACHI G Attending Unavailable AGATA MONTOYA Attending Unavailable HCOW, SHU J Primary Care Unavailable MALICK RICCI Referring Unavailable CHOW, SHU J Referring Unavailable CHOW, SHU J Primary Care Unavailable CHAKA, SACHI G Attending Unavailable BOLES FLEX Referring Unavailable CHOW, SHU J Primary Care Unavailable CONSULT, ANESTHESIA PAIN MED Consulting Silvina vailable CHAKA, SACHI G Admitting Unavailable CHAKA, SACHI G Attending Unavailable ALEJANDROHTMACKENZIE PATEL Attending Unavailable CHOW, SHU J Primary Care Unavailable CHAKA, SACHI G Referring Unavailable Dr. [place] MD Referring Provider [phone] Michael Gaines Referring Unavailable WanekMichael Attending Unavailable WanekMichael Consulting Unavailable Chow, Shu Primary Care Unavailable Chow, Shu Primary Care Unavailable Chow, Shu Referring Unavailable [place] Attending Unavailable Chow, Shu Referring Unavailable Keila SECURITY INFRASTRUCTURE ENGINEER, Alyssa Attending Unavailable Chow, Shu Primary Care Unavailable Chow, Shu Referring Unavailable Keila SECURITY INFRASTRUCTURE ENGINEER, Alyssa Attending Unavailable Chow, Shu Primary Care Unavailable Chow, Shu Referring Unavailable Keila SECURITY INFRASTRUCTURE ENGINEER, Alyssa Attending Unavailable Chow, Shu Primary Care Unavailable Chow, Shu Referring Unavailable WanekMichael Attending Unavailable Chow, Shu Primary Care Unavailable Chow, Shu Primary Care Unavailable [place] Attending Unavailable Chaka, Sachi Referring Unavailable Chow, Shu Primary Care Unavailable Chow, Shu Referring Unavailable Keila SECURITY INFRASTRUCTURE ENGINEER, Alyssa Attending Unavailable Michael Gaines Referring Unavailable Michael Gaines Attending Unavailable [facility] Primary Care Unavailable Chow Shu Primary Care Unavailable [place] Referring Unavailable [place] Attending Unavailable [facility] Care Unavailable Shikha Marroquin Attending Unavailable Medications Current Medications Medication Drug Class(es) Dates Sig (Normalized) Sig (Original) acetaminophen 325 mg oral tablet (7 sources) Start: 01-24-2025 End: 02-03-2025 take 2 tablets by mouth every eight hours Acetaminophen 325 MG tablet Take 2 tablets by mouth every 8 hours for 10 days. 60 tablet 01/24/2025 Active Start: 01-23-2025 End: 01-28-2025 take 1 tablet by mouth every eight hours 975 mg, Oral, EVERY 8 HOURS NON-STANDARD, First dose on Thu01/23/25 at 1500, Until Discontinued, Maximum dose of acetaminophen is 4000 mg from all sources in 24 hours., Post-op/Post-Proc Start: 01-23-2025 End: 01-23-2025 take 4000 mg by mouth every twenty-four hours 975 mg, Oral, ONCE, 1 dose, On Thu01/23/25 at 0600, Maximum dose of acetaminophen is 4000 mg from all sources in 24 hours., Pre-op/Pre-Proc End: 01-24-2025 Acetaminophen 325 MG tablet Take 1 tablet by mouth as needed for Mild Pain. 01/24/2025 Discontinued (Stop Taking at Discharge) acetaminophen 325 mg / oxyCODONE hydrochloride 5 mg oral tablet (5 sources) Opioid Agonist Start: 03-20-2025 take 1 tablet by mouth every eight hours as needed for pain Oxycodone-Acetaminophen (Percocet) 5-325 mg tablet Active 1 {tbl} PO Q8H as needed for pain 5 3 0 March 20, 2025 Malignant neoplasm of colon Malignant neoplasm of ascending colon calcium citrate 950 mg oral tablet (8 sources) take 1 tablet by mouth once daily in the morning Calcium citrate 950 (200 Ca) MG tablet Take 1 tablet by mouth daily every morning. Active Calcium Citrate / Vitamin D (20 sources) Calcium-Vitamin D gabapentin 100 mg oral capsule (4 sources) Anti-epilept ic Agent Start: 01-23-2025 End: 02-03-2025 take 1 capsule by mouth every eight hours Gabapentin 100 MG capsule Take 1 capsule by mouth every 8 hours for 10 days. 30 capsule 01/24/2025 02/03/2025 Active Start: 01-23-2025 End: 01-23-2025 take 1 dose by mouth once 300 mg, Oral, ONCE, 1 dose, On Thu01/23/25 at 0600, Pre-op/Pre-Proc hydroCHLOROthiazide 25 mg / lisinopril 20 mg oral tablet (20 sources) Thiazide Diuretic, Angiotensin Converting Enzyme Inhibitor Start: 06-27-2024 lisinopriL 20 mg-hydrochlorothiazide 25 mg tablet ; 1 (one) Tablet daily for 0 days Quantity: 90 {Tablet} Refills: 1 Ordered: 24-Feb-2025 JOELLE Chow Start: 24-Feb-2025 Start: 02-05-2024 lisinopriL 20 mg-hydrochlorothiazide 25 mg tablet ; 1 (one) Tablet daily for 0 days Quantity: 90 {Tablet} Refills: 1 Ordered: 05-Feb-2024 JOELLE Chow Start: 05-Feb-2024 Start: 01-20-2024 lisinopriL 20 mg-hydrochlorothiazide 25 mg tablet ; 1 (one) Tablet daily for 0 days Quantity: 30 {Tablet} Refills: 0 Ordered: 20-Jan-2024 JOELLE Chow Start: 20-Jan-2024 Start: 03-18-2021 Lisinopril-Hyd rochlorothiazide 20-25 mg Tablet Active 1 {tbl} PO DAILY March 18, 2021 12:00am ibuprofen 600 mg oral tablet (3 sources) Nonsteroidal Anti-inflammatory Drug Start: 01-23-2025 End: 02-03-2025 take 1 tablet by mouth every eight hours Ibuprofen 600 MG tablet Take 1 tablet by mouth every 8 hours for 10 days. 30 tablet 01/24/2025 02/03/2025 Active lidocaine 25 mg/ml / prilocaine 25 mg/ml topical cream (7 sources) Antiarrhythmic, Amide Local Anesthetic Start: 03-15-2025 Lidocaine-Priloc kevin 2.5-2.5 % cream Active 1 NMA TOPICAL ONCE as needed for port access 30 30 2 March 15, 2025 12:00am Malignant neoplasm of colon Malignant neoplasm of ascending colon 24 hr metoprolol succinate 50 mg extended release oral tablet (20 sources) beta-Adrenergic Leena Start: 02-23-2025 metoprolol succinate ER 50 mg tablet,extended release 24 hr ; 1 (one) Tablet once daily for 0 days Quantity: 90 {Tablet} Refills: 1 Ordered: 23-Feb-2025 JOELLE Chow Start: 23-Feb-2025 Start: 06-27-2024 End: 01-28-2025 metoprolol succinate ER 50 m g tablet,extended release 24 hr ; 1 (one) Tablet once daily for 0 days Quantity: 90 {Tablet} Refills: 1 Ordered: 23-Feb-2025 JOELLE Chow Start: 23-Feb-2025 Start: 02-05-2024 metoprolol suc cinate ER 50 mg tablet,extended release 24 hr ; 1 (one) Tablet once daily for 0 days Quantity: 90 {Tablet} Refills: 1 Ordered: 05-Feb-2024 JOELLE Chow Start: 05-Feb-2024 Start: 01-20-2024 metoprolol suc cinate ER 50 mg tablet,extended release 24 hr ; 1 (one) Tablet once daily for 0 days Quantity: 30 {Tablet} Refills: 0 Ordered: 20-Jan-2024 JOELLE Chow Start: 20-Jan-2024 Start: 07-27-2023 metoprolol suc cinate ER 50 mg tablet,extended release 24 hr ; 1 (one) Tablet once daily for 0 days Quantity: 90 {Tablet} Refills: 1 Ordered: 27-Jul-2023 JOELLE Chow Start: 27-Jul-2023 Start: 03-18-2021 take 1 tablet by bennie th once daily Metoprolol Tartrate 50 mg Tablet Active 50 mg PO DAILY March 18, 2021 12:00am Start: 04-29-2017 End: 12-10-2017 take 1 tablet by mouth once daily Metoprolol Tartrate 50 MG Oral Tablet ; 1 (one) Tablet daily for 0 days Quantity: 90 {Tablet} Refills: 3 Ordered: 10-Dec-2017 JOELLE Chow Start: 29-Apr-2017 End: 10-Dec-2017 Status: Inactive Multivitamin Adults Oral Tablet (20 sources) take 1 tablet by mouth once daily Multivitamin Adults Oral Tablet ; 1 daily Multivitamin tablet (7 sources) Start: 03-06-20 Multivitamin tablet Active 1 {tbl} PO daily March 06, 2025 12:00am ondansetron 8 mg disintegrating oral tablet (9 sources) Serotonin-3 Receptor Antagonist Start: 03-15-20 take 1 tablet by mouth every eight hours as needed for nausea and vomiting Ondansetron 8 mg tablet,disintegratin g Active 8 mg PO Q8H as needed for nausea and vomiting 30 March 15, 2025 12:00am Malignant neoplasm of colon Malignant neoplasm of ascending colon Start: 01-24-2025 End: 01-28-2025 take 4 mg intravenously every six hours as needed Start: 01-23-2025 End: 01-24-2025 take 4 mg intravenously every six hours 4 mg, Intravenous, EVERY 6 HOURS NON-STANDARD, 4 doses, First dose on Thu01/23/25 at 1300, Last dose on Thu01/24/25 at 0500, Post-op/Post-Proc prochlorperazine 10 mg oral tablet (8 sources) Phenothiazine Start: 03-15-2025 take 1 tablet by mouth every six hours as needed for nausea and vomiting Prochlorperazine Maleate 10 mg tablet Active 10 mg PO EVERY 6 HOURS as needed for nausea and vomiting March 15, 2025 12:00am Chemotherapy-induced nausea and vomiting Malignant neoplasm of colon Nausea with vomiting, unspecified Adverse effect of antineoplastic and immunosuppressive drugs, initial encounter Malignant neoplasm of ascending colon Start: 01-23-2025 End: 01-23-2025 5 mg, Intravenous, Administe r over 5 Minutes, ONCE NEEDED, 1 dose, Starting on Thu01/23/25 at 1105, Until Thu01/23/25 at 1229, Nausea / Vomiting, FIRST Line Agent, For IV route: dilute dose with 10mL normal saline and give by slow IV push at a rate of 5mg/min. Maximum of 40mg/day., Recovery Turmeric extract (20 sources) Start: 03-06-2025 take 1 capsule by mo uth once daily Turmeric 400 mg capsule Active 400 mg PO DAILY March 06, 2025 12:00am Start: 03-06-2025 take 1 mg by mouth once daily Turmeric 400 mg capsule Active mg PO DAILY March 06, 2025 12:00am take 1 capsule by mo uth once daily in the morning Turmeric 5-1000 MG capsule Take 1,000 mg by mouth daily every morning. Active Turmeric 5-1000 MG capsule Take by mouth. Active Turmeric Completed/Discontinued Medications Medication Drug Class(es) Dates Sig (Normalized) Sig (Original) amoxicillin 875 mg / clavulanate 125 mg oral tablet (20 sources) Penicillin-class Antibacterial Start: 01-02-2020 End: 01-12-2020 take 1 tablet by mouth twice daily at mealtime Amoxicillin-Pot Clavulanate 875-125 MG Oral Tablet ; 1 (one) Tablet BID for 10 days Quantity: 20 {Tablet} Refills: 0 Ordered: 02-Jan-2020 JOELLE Chow Start: 02-Jan-2020 End: 12-Jan-2020 Status: Inactive Comments: Take with food Start: 02-12-2015 End: 02-22-2015 take 1 tablet by mouth twice daily at mealtime AUGMENTIN, 875-125MG (Oral Tablet) ; 1 (one) Tablet BID for 10 days Quantity: 20 {Tablet} Refills: 0 Ordered: 12-Feb-2015 JOELLE Chow Start: 12-Feb-2015 End: 22-Feb-2015 Status: Inactive Comments: Take with food Comment on above: Take with food aspirin 81 mg delayed release oral tablet (20 sources) Platelet Aggregation Inhibitor, Nonsteroidal Anti-inflammatory Drug take 1 tablet by mouth once daily Aspirin 81 MG Oral Tablet Delayed Release ; 1 tablet daily (81 MG) Status: Inactive azithromycin 250 mg oral tablet (20 sources) Macrolide Antimicrobial Start: 10-09-20 16 End: 04-28-20 17 Zithromax Z-David 250 MG Oral Tablet ; 2 (two) Tabs day one, then one daily for 4 days for 0 days Quantity: 1 {Package} Refills: 0 Ordered: 28-Apr-2017 MIRIAM Solano Start: 09-Oct-2016 End: 28-Apr-2017 Status: Inactive benzonatate 100 mg oral capsule (20 sources) Non-narcotic Antitussive Start: 10-09-20 16 End: 04-28-20 17 take 1 capsule by mouth three times daily as needed Tessalon Perles 100 MG Oral Capsule ; 1 (one) Cap three times daily as needed for cough for 0 days Quantity: 30 {Cap} Refills: 0 Ordered: 28-Apr-2017 MIRIAM Solano Start: 09-Oct-2016 End: 28-Apr-2017 Status: Inactive Comments: Medication taken as needed. swallow whole Comment on above: Medication taken as needed. swallow whole calcium carbonate 1500 mg / cholecalciferol 0.01 mg oral tablet (7 sources) Vitamin D Start: 03-18-20 End: 03-06-20 Calcium Carbonate-Vitamin D3 (Calcium 600 + D(3)) 600 mg(1,500mg) -400 unit Tablet Discontinued 3 {tbl} PO DAILY March 18, 2021 12:00am March 06, 2025 4:49pm calcium chloride 0.0014 meq/ml / potassium chloride 0.004 meq/ml / sodium chloride 0.103 meq/ml / sodium lactate 0.028 meq/ml injectable solution (2 sources) Start: 01-26-20 End: 01-26-20 25 500 mL, Intravenous, ONCE, 1 dose, On Thu01/25/25 at 0800, Fluid Bolus Start: 01-23-2025 End: 01-24-2025 Intravenous, at 100 mL/hr, C ONTINUOUS, Starting on Thu01/23/25 at 1130, Until Thu01/24/25 at 0737, Post-op/Post-Proc ciprofloxacin 500 mg oral tablet (20 sources) Quinolone Antimicrobial Start: 10-04-2018 End: 10-11-2018 take 1 tablet by mouth twice daily Cipro 500 MG Oral Tablet ; 1 Tab two times daily for 7 days Quantity: 14 {Tablet} Refills: 0 Ordered: 04-Oct-2018 JOELLE Douglas Start: 04-Oct-2018 End: 11-Oct-2018 Status: Inactive 0.4 ml enoxaparin sodium 100 mg/ml prefilled syringe (1 source) Low Molecular Weight Heparin Start: 01-24-2025 End: 01-28-2025 inject 40 mg by subcutaneous injection every twenty-four hours 40 mg, Subcutaneous, EVERY 24 HOURS, First dose on Thu01/24/25 at 0900, Until Discontinued, For SUBCUTANEOUS route ONLY: alternate injection sites between left and right abdominal wall, pinching location and avoiding area around navel. If unable to use abdominal sites, may use the front or side of thighs., Indications: DVT/PE prophylaxis, Post-op/Post-Proc Gadopiclenol SOLN 1-25 mL (1 source) Start: 12-31-2024 End: 12-31-2024 1-25 mL, Intravenous, ONCE, 1 dose, On 12/31/24 at 0830 1 ml heparin sodium, porcine 5000 unt/ml prefilled syringe (1 source) Unfractionated Heparin, Anti-coagulant Start: 01-23-2025 End: 01-23-2025 5,000 Units, Subcutaneous, ONCE, 1 dose, On 01/23/25 at 0600, Pre op Nurse: Hold for patients receiving Intrathecal morphine or epidural. Consult with Anesthesia Team., Pre-op/Pre-Proc 1 ml hydrALAZINE hydrochloride 20 mg/ml injection (1 source) Arteriolar Vasodilator Start: 01-25-2025 End: 01-28-2025 take 10 mg intravenously every six hours as needed 10 mg, Intravenous, EVERY 6 HOURS NEEDED, Starting on Thu01/25/25 at 2038, Until 01/28/25 at 1438, SBP > 160 mmHg with HR hydroCHLOROthiazide 25 mg oral tablet (2 sources) Thiazide Diuretic Start: 01-27-2025 End: 01-28-2025 take 1 tablet by mouth once daily hydroCHLOROthiazide 25 MG tablet Take 1 tablet by mouth daily. 30 tablet 01/28/2025 01/28/2025 Discontinued (Stop Taking at Discharge) iohexol (OMNIPAQUE) 350 MG/ML injection 1-171 mL (1 source) Start: 12-31-2024 End: 12-31-2024 1-171 mL, Intravenous, ONCE, 1 dose, On 12/31/24 at 0815, Extravasation Risk, CT Procedure labetalol hydrochloride 5 mg/ml injectable solution (1 source) beta-Adrenergic Leena Start: 01-25-2025 End: 01-28-2025 take 10 mg intravenously every six hours as needed 10 mg, Intravenous, EVERY 6 HOURS NEEDED, Starting on Thu01/25/25 at 2030, Until 01/28/25 at 1438, SBP > 160 mmHg with HR >60 bpm, Administration duration: up to 20 mg over 2 minutes. Telemetry required except for COPING MACHINE OPERATOR patients on [address] Floors 6 and 7. For vials: labetalol should be treated as a SINGLE USE VIAL. Discard remaining contents after one use. lisinopril 20 mg oral tablet (2 sources) Angiotensin Converting Enzyme Inhibitor Start: 01-26-2025 End: 01-28-2025 take 1 tablet by mouth once daily Lisinopril 20 MG tablet Take 1 tablet by mouth daily. 30 tablet 01/28/2025 01/28/2025 Discontinued (Stop Taking at Discharge) 50 ml magnesium sulfate 80 mg/ml injection (1 source) Start: 01-25-2025 End: 01-25-2025 4 g, Intravenous, at 12.5 mL/hr, Administer over 4 Hours, ONCE, 1 dose, On Thu01/25/25 at 0615 meclizine hydrochloride 25 mg oral tablet (20 sources) Antiemetic Start: 06-18-2020 End: 01-09-2021 take 1 tablet by mouth every eight hours as needed for dizziness Meclizine HCl 25 MG Oral Tablet ; 1 (one) Tablet every 8 hours prn dizziness for 0 days Quantity: 30 {Tablet} Refills: 0 Ordered: 09-Jan-2021 MIRIAM Lynch Start: 18-Jun-2020 End: 09-Jan-2021 Status: Inactive melatonin 3 mg oral tablet (1 source) Start: 01-23-2025 End: 01-28-2025 take 6 mg by mouth once daily at bedtime as needed 6 mg, Oral, DAILY AT BEDTIME NEEDED, Starting on 01/23/25 at 1444, Until 01/28/25 at 1438, Insomnia, Post-op/Post-Proc metroNIDAZOLE 500 mg oral tablet (3 sources) Nitroimidazole Antimicrobial Start: 01-03-2025 End: 01-09-2026 metroNIDAZOLE 500 MG tablet On the day before your surgery: Take 2 tablets at 1 pm, 2 tablets at 2 pm, and 2 tablets at 9 pm 6 tablet 01/03/2025 01/24/2025 Discontinued (Stop Taking at Discharge) neomycin sulfate 500 mg oral tablet (3 sources) Aminoglycoside Antibacterial Start: 01-03-2025 End: 01-09-2026 Neomycin 500 MG tablet On the day before your surgery: Take 2 tablets at 1 pm, 2 tablets at 2 pm, and 2 tablets at 9 pm 6 tablet 01/03/2025 01/24/2025 Discontinued (Stop Taking at Discharge) nystatin 671261 unt/ml topical cream (20 sources) Polyene Antifungal Start: 06-15-2019 End: 01-29-2023 Nystatin 442995 UNIT/GM External Cream ; 1 (one) Application Application to affected areas BID for 0 days Quantity: 30 {Gram} Refills: 0 Ordered: 29-Jan-2023 JOELLE Chow Start: 15-Jun-2019 End: 29-Jan-2023 Status: Inactive oxyCODONE (2 sources) Opioid Agonist Start: 01-25-2025 End: 01-28-2025 take 1 tablet by mouth every four hours as needed oxyCODONE (ROXICODONE) tablet 5 mg Start: 01-24-2025 End: 01-27-2025 take 1 tablet by mouth every six hours as needed for pain oxyCODONE 5 MG tablet Indications: Malignant neoplasm of ascending colon Take 1 tablet by mouth every 6 hours as needed for Severe Pain for up to 3 days. 5 tablet 01/24/2025 01/27/2025 phenol 14 mg/ml mucosal spray (1 source) Start: 01-23-2025 End: 01-28-2025 microencapsulated potassium chloride 20 meq extended release oral tablet (1 source) Start: 01-25-2025 End: 01-25-2025 40 mEq, Oral, ONCE, 1 dose, On Thu01/25/25 at 0615, Swallow tablets whole; do not crush, chew, or suck on tablet. Tablet may also be broken in half and each half swallowed separately. Prochlorperazine (COMPAZINE) injection 10 mg (1 source) Start: 01-23-2025 End: 01-28-2025 take 10 mg intravenously every six hours as needed Prochlorperazine (COMPAZINE) injection 10 mg simvastatin 40 mg oral tablet (20 sources) HMG-CoA Reductase Inhibitor Start: 01-23-2022 End: 01-29-2023 take 1 tablet by mouth at bedtime Simvastatin 40 MG Oral Tablet ; 1 (one) Tablet at bedtime or with evening meal for 0 days Quantity: 90 {Tablet} Refills: 1 Ordered: 29-Jan-2023 JOELLE Chow Start: 23-Jan-2022 End: 29-Jan-2023 Status: Inactive 1000 ml sodium chloride 9 mg/ml injection (3 sources) Start: 01-25-2025 End: 01-26-2025 Intravenous, at 75 mL/hr, CONTINUOUS, Starting on 01/25/25 at 1730, Until Anne 01/26/25 at 0959 Start: 12-31-2024 End: 12-31-2024 1-250 mL, Intravenous, ONCE NEEDED, 1 dose, Starting on 12/31/24 at 0827, Until 12/31/24 at 0853, Flush, MR Procedure Problems Active Problems Problem Classification Problem Date Documented Da te Episodic/Chronic Acute bronchitis (20 sources) Acute bronchitis; Translations: [Acute bronchitis, unspecified] 10-09-2016 Episodic Administrative/social admission (15 sources) Patient encounter status; Translations: [Counseling, unspecified] Onset: 5 03-15-2025 Episodic Cancer of colon (20 sources) Malignant neoplasm of colon, unspecified; Translations: [Malignant tumor of ascending colon] Onset: 5 12-10-2024 Chronic Cardiac dysrhythmias (20 sources) Cardiac arrhythmia; Translations: [Cardiac arrhythmia, unspecified] 06-27-2024 Chronic Chronic obstructive pulmonary disease and bronchiectasis (20 sources) Bronchitis; Translations: [Bronchitis, not specified as acute or chronic] 04-22-2018 Episodic Conditions associated with dizziness or vertigo (20 sources) Dizziness; Translations: [Dizziness and giddiness] 11-09-2017 Episodic Deficiency and other anemia (5 sources) Anemia; Translations: [Anemia, unspecified] 04-18-2025 Episodic Deficiency and other anemia (2 sources) Anemia, unspecified; Translations: [Anemia, unspecified] Onset: 5 Episodic Disorders of lipid metabolism (20 sources) Hyperlipidemia; Translations: [Hyperlipidemia, unspecified] Onset: 5 11-23-2023 Chronic Comment on above: borderline E Codes: Adverse effects of medical drugs (1 source) Adverse effect of antineoplastic and immunosuppressive drugs, initial encounter; Translations: [Adverse effect of antineoplastic and immunosuppressive drugs, initial encounter] Onset: 5 Episodic Essential hypertension (20 sources) Hypertensive disorder; Translations: [Essential (primary) hypertension] Onset: 5 11-23-2023 Chronic Comment on above: controlled with med Immunizations and screening for infectious disease (20 sources) Needs influenza immunization; Translations: [Encounter for immunization] 10-03-2015 Episodic Maintenance chemotherapy; radiotherapy (13 sources) Patient encounter status; Translations: [Encounter for antineoplastic chemotherapy] Onset: 5 03-21-2025 Chronic Mycoses (20 sources) Candidal intertrigo; Translations: [Candidiasis of skin and nail] 01-02-2020 Episodic Nausea and vomiting (1 source) Nausea with vomiting, unspecified; Translations: [Nausea with vomiting, unspecified] Onset: 5 Episodic Nutritional deficiencies (20 sources) Vitamin D deficiency; Translations: [Vitamin D deficiency, unspecified] 11-23-2023 Chronic Osteoarthritis (20 sources) Arthritis; Translations: [Unspecified osteoarthritis, unspecified site] Onset: 4 11-23-2023 Chronic Other connective tissue disease (20 sources) Tenosynovitis of left radial styloid; Translations: [Radial styloid tenosynovitis [de Quervain]] 01-23-2022 Episodic Other gastrointestinal disorders (7 sources) Diarrhea due to drug; Translations: [Toxic gastroenteritis and colitis] 04-04-2025 Episodic Other gastrointestinal disorders (1 source) Toxic gastroenteritis and colitis; Translations: [Toxic gastroenteritis and colitis] Onset: 5 Episodic Other liver diseases (20 sources) Elevated liver enzymes level; Translations: [Abnormal levels of other serum enzymes] 11-23-2023 Episodic Other lower respiratory disease (20 sources) Lower respiratory tract infection; Translations: [Unspecified acute lower respiratory infection] 05-03-2020 Episodic Other lower respiratory disease (20 sources) Snoring; Translations: [Snoring] 04-22-2018 Episodic Other lower respiratory disease (20 sources) Apnea; Translations: [Apnea, not elsewhere classified] 04-22-2018 Episodic Other lower respiratory disease (20 sources) Multiple nodules of lung; Translations: [Other nonspecific abnormal finding of lung field] 03-09-2025 Episodic Other lower respiratory disease (1 source) Other nonspecific abnormal finding of lung field; Translations: [Other nonspecific abnormal finding of lung field] Onset: 5 Episodic Other nervous system disorders (7 sources) H/O: Meniere's disease; Translations: [Personal history of other diseases of the nervous system and sense organs] 03-09-2025 Episodic Comment on above: PATIENT STATES RESOL CYRUS Other non-traumatic joint disorders (20 sources) Pain in left knee; Translations: [Pain in joint, lower leg] 11-03-2018 Episodic Other nutritional; endocrine; and metabolic disorders (20 sources) Body mass index 40+ - severely obese; Translations: [Body mass index (BMI) 40.0-44.9, adult] 11-03-2018 Chronic Other nutritional; endocrine; and metabolic disorders (20 sources) Morbid obesity; Translations: [Morbid (severe) obesity due to excess calories] 11-23-2023 Chronic Other nutritional; endocrine; and metabolic disorders (13 sources) Obesity; Translations: [Obesity, unspecified] 07-27-2023 Chronic Other screening for suspected conditions (not mental disorders or infectious disease) (20 sources) Endometrium thickened; Translations: [Abnormal findings on diagnostic imaging of other specified body structures] 01-29-2023 Chronic Other screening for suspected conditions (not mental disorders or infectious disease) (20 sources) Computed tomography of brain abnormal; Translations: [Other abnormal findings on diagnostic imaging of central nervous system] Onset: 4 01-23-2022 Episodic Other upper respiratory infections (20 sources) Sinusitis; Translations: [Chronic sinusitis, unspecified] 05-03-2020 Chronic Residual codes; unclassified (20 sources) Obstructive sleep apnea syndrome; Translations: [Obstructive sleep apnea (adult) (pediatric)] 11-23-2023 Chronic Residual codes; unclassified (20 sources) Postmenopausal state; Translations: [Asymptomatic menopausal state] 11-23-2023 Episodic Secondary malignancies (20 sources) Regional lymph node metastasis present ; Translations: [Secondary and unspecified malignant neoplasm of lymph node, unspecified] 03-09-2025 Chronic Secondary malignancies (2 sources) Secondary and unspecified malignant neoplasm of lymph node, unspecified; Translations: [Secondary and unspecified malignant neoplasm of lymph node, unspecified] Onset: 5 Chronic Spondylosis; intervertebral disc disorders; other back problems (7 sources) Backache; Translations: [Dorsalgia, unspecified] 03-09-2025 Episodic Comment on above: bone spurs Unclassified (20 sources) Number of Children 07-27-2023 Comment on above: 3. Unclassified (20 sources) Number of Pregnancies 07-27-2023 Comment on above: 3. Unclassified (20 sources) Vaginal deliveries 07-27-2023 Comment on above: 3. Unclassified (20 sources) Follow up for multiple chronic conditions - The patient is here for follow-up of arthritis, hyperlipidemia, hypertension and obesity. The patient always takes the prescribed medications. No side effects noted. The patient engages in regular exercise program 3-5 times per week. The patient states that the disease has no overall impact. Note for Multiple chronic conditions follow-up: Hasn't been checking BP at home and had stressful 2 weeks which she thinks is playing role. 01-29-2023 Unclassified (20 sources) Follow up for multiple chronic conditions - The patient is here for follow-up of arthritis, hyperlipidemia, hypertension and obesity. The patient always takes the prescribed medications. No side effects noted. The patient engages in regular exercise program 3-5 times per week (walks). The patient's out of office blood pressure checks occur occasionally. The patient states that weight has increased. The patient states that the disease has no overall impact. Note for Multiple chronic conditions follow-up: Feeling well with no complaints. 08-01-2022 Unclassified (20 sources) Follow up for chronic condition - The patient is here for follow-up of hypertension, hyperlipidemia and obesity. The patient always takes the prescribed medications. No side effects noted. The patient engages in regular exercise program 3-5 times per week (every day). The patient's out of office blood pressure checks occur frequently. The patient states that weight has decreased. The patient states that the disease has no overall impact. Note for Chronic condition follow-up: Weight is down 16 pounds. 01-23-2022 Unclassified (20 sources) Endometrial thickening - Pt is here for follow up MRI; endometrial thickening noted on lumbar MRI ordered by ortho.Pt denies symptoms.No family history of uterine cancer.No spotting. 01-23-2021 Unclassified (20 sources) Follow up for multiple chronic conditions - The patient is here for follow-up of arthritis, hyperlipidemia, hypertension and obesity. The patient always takes the prescribed medications. No side effects noted. The patient has low activity level and no regular exercise program. The patient's out of office blood pressure checks occur occasionally. The patient states that weight has increased. The patient states that the disease has no overall impact. Note for Multiple chronic conditions follow-up: Pt need refills on both bp meds.Just started weight loss plan this week - said it was a rough winter. 01-09-2021 Unclassified (20 sources) MCR Well Adult - In general the patient feels well with no complaints, has good energy level and is sleeping well. The patient has a balanced diet and takes supplemental vitamins. The patient does not exercise and sleeps 9 hours per night. The patient denies having trouble with bathing, dressing/grooming, toileting, preparing meals and ambulating. The patient denies having trouble with grocery shopping, driving, use of telephone, housework, laundry, preparing/taking medications and finances. The first day of the last menstrual period was : (age 64). The patient performs monthly self breast exam. 06-18-2020 Unclassified (20 sources) [ADDITIONAL REASON] Follow up for multiple chronic conditions - The patient is here for follow-up of hyperlipidemia, hypertension, obesity and other condition(s) (NELSON, Vitamine D deficiency.). The patient always takes the prescribed medications. No side effects noted. The patient has an active lifestyle but no regular exercise program. The patient's out of office blood pressure checks occur occasionally and dietary compliance is fairly good usually adhering to recommendations. The patient states that breathing effort is stable, there is no recent angina or dyspnea, there are no vision changes or weakness (Last eye appointment was about 4 yrs ago.), pain is generally stable (arthritis. Appt with [facility] next week.), sleep patterns have improved and they do not have headaches. Note for Multiple chronic conditions follow-up: She said that her back was bothering her so [facility] checked and she has 5 spurs on the last 5 spine. 06-18-2020 Unclassified (20 sources) MCR Well Adult - In general the patient feels well with no complaints, has good energy level (depends on day) and is sleeping well. The patient has a balanced diet and takes supplemental vitamins. The patient does not exercise and sleeps 8 hours per night. The patient denies having trouble with bathing, dressing/grooming, toileting, preparing meals and ambulating. The patient denies having trouble with grocery shopping, driving, use of telephone, housework, laundry, preparing/taking medications and finances. The patient performs monthly self breast exam. The patient does not have Healthcare Power of Director Revenue or Living Will. 06-16-2019 Unclassified (20 sources) [ADDITIONAL REASON] Follow up for multiple chronic conditions - The patient is here for follow-up of arthritis, hyperlipidemia, hypertension, obesity and other condition(s) (moderate NELSON, vit D deficiency). The patient always takes the prescribed medications. No side effects noted. The patient has low activity level and no regular exercise program (walking). The patient's out of office blood pressure checks occur occasionally (once every 2 wks) and dietary compliance is fairly good usually adhering to recommendations. The patient states that breathing effort is stable, there is no recent angina or dyspnea, there are no vision changes or weakness (last eye appointment was about 4 years ago), pain is generally stable (none), sleep patterns have improved and they do not have headaches. Note for Multiple chronic conditions follow-up: Last office visit 11/04/2018. No CPAP.For 2-3 days has had red rash under both breasts. 06-16-2019 Unclassified (20 sources) Follow up for multiple chronic conditions - The patient is here for follow-up of arthritis, hyperlipidemia, hypertension, obesity and other condition(s) (moderate NELSON, vit D deficiency). The patient always takes the prescribed medications. No side effects noted. The patient has low activity level and no regular exercise program. The patient's out of office blood pressure checks occur occasionally (once a week; 134/77 last time) and dietary compliance is fairly good usually adhering to recommendations. The patient states that breathing effort is stable, there is no recent angina or dyspnea, there are no vision changes or weakness (last eye appointment was about 4 years ago), pain is generally stable, sleep patterns have improved and they do not have headaches. Note for Multiple chronic conditions follow-up: Does not have CPAP machine - never had CPAP titration done. 11-04-2018 Unclassified (20 sources) MCR Well Adult - In general the patient feels well with minor complaints (Last episode of dizziness was on 11/03/17 - blood pressure was 181/92 so she took meclizine, laid down and slept, and when she woke up she felt fine.), has good energy level and is sleeping well (does get up 2-3 times per night to urinate). The patient has a balanced diet and takes supplemental vitamins. The patient exercises weekly (bike inside) and sleeps 9 hours per night. The patient denies having trouble with bathing, dressing/grooming, toileting, preparing meals and ambulating. The patient denies having trouble with grocery shopping, driving, use of telephone, housework, laundry, preparing/taking medications and finances. The patient performs monthly self breast exam. The patient does not have Healthcare Power of Director Revenue or Living Will. 11-09-2017 Unclassified (20 sources) [ADDITIONAL REASON] Follow up from hospital stay - Name of Hospital: [facility]. Date of Admission: 10/25/2017. Date of Discharge: 10/26/2017. The patient was hospitalized for dizziness. New medications include aspirin , meclizene (and amoxicillin). Post hospital therapies ordered include none (After CT of brain - she needs MRI per hospital, ECHO, carotid doppler and sleep study). Patient was discharged to home. Note for Follow up from hospital stay: Labs, chest x-ray, EKG, and head CT were done. Head CT showed calcification of parietal complex.BP has been running 140s-170s/60s-70s. Has been doing good taking her meds regularly since hospital stay. 11-09-2017 Unclassified (20 sources) [ADDITIONAL REASON] Transition into care - The patient is transitioning into care from a hospital and a summary of care was reviewed. 11-09-2017 Unclassified (20 sources) Follow up for multiple chronic conditions - The patient is here for follow-up of hypertension, hyperlipidemia and other condition(s) (arthritis, vit D deficiency.). The patient always takes the prescribed medications. No side effects noted. The patient has an active lifestyle but no regular exercise program. The patient's out of office blood pressure checks occur rarely (145/?) and dietary compliance is fairly good usually adhering to recommendations. The patient states that breathing effort is stable, there is no recent angina or dyspnea, there are no vision changes or weakness, pain is generally stable and they do not have headaches. Note for Multiple chronic conditions follow-up: Her fall that occurred was when she was helping her grandson and missed the curb - fell down and hit her nose (improved now). 04-29-2017 Unclassified (20 sources) Follow up for multiple chronic conditions - The patient is here for follow-up of hypertension, hyperlipidemia, obesity, arthritis and other condition(s) (vit d deficiency). The patient always takes the prescribed medications. Side effects noted (she was getting hives so she figured it was from metoprolol so she cut out evening dose and only takes it 1 qd now and she doesn't have hives anymore). The patient's out of office blood pressure checks occur occasionally (once a wk; yesterday it was 140/67 (usually is lower than this)) and dietary compliance is fairly good usually adhering to recommendations. The patient states that breathing effort is stable, there is no recent angina or dyspnea, there are no vision changes or weakness, pain is generally stable and they do not have headaches. Note for Multiple chronic conditions follow-up: Weight is down 3 pounds in the past 6 months.Was not contacted regarding sleep study. 04-24-2016 Unclassified (20 sources) Follow up for multiple chronic conditions - The patient is here for follow-up of hypertension and hyperlipidemia (no med; just monitoring). The patient always takes the prescribed medications. No side effects noted. The patient has an active lifestyle but no regular exercise program. The patient's out of office blood pressure checks occur rarely (Last checked 2 months ago and it was 140s/70s.) and dietary compliance is fairly good usually adhering to recommendations (states has been using extra salt in food due to company). The patient states that breathing effort is stable, there is no recent angina or dyspnea, there are no vision changes or weakness, weight has increased (Weight is up 10 pounds since October.) and they do not have headaches. Note for Multiple chronic conditions follow-up: 10/2014: cmp,lipidOccasional feet/ankle swelling. 04-04-2015 Unclassified (20 sources) Follow up for chronic condition - The patient is here for follow-up of hypertension. The patient always takes the prescribed medications. No side effects noted (Take all of metoprolol at night and lisinopril-HCTZ at night; hasn't taken medication yet today). The patient has an active lifestyle but no regular exercise program. The patient's out of office blood pressure checks occur occasionally (Not as high as it was today.), dietary compliance is fairly good usually adhering to recommendations and dietary compliance is fair often eating foods not normally recommended. The patient states that breathing effort is stable, there is no recent angina or dyspnea, there are no vision changes or weakness, weight has increased (Up 2 pounds.) and they do not have headaches. Note for Chronic condition follow-up: Had colonoscopy done 06/2014 - normal. Still planning to do mammogram but hasn't yet. Has received pneumovax in the past but it was about 10 years ago. 10-04-2014 Unclassified (20 sources) Follow up for multiple chronic conditions - The patient is here for follow-up of hyperlipidemia, hypertension, obesity and other condition(s) (NELSON, Vitamine D deficiency.). The patient always takes the prescribed medications. No side effects noted. The patient has an active lifestyle but no regular exercise program. The patient's out of office blood pressure checks occur occasionally and dietary compliance is fairly good usually adhering to recommendations. The patient states that breathing effort is stable, there is no recent angina or dyspnea, there are no vision changes or weakness (Last eye appointment was about 4 yrs ago.), pain is generally stable (arthritis. Appt with [facility] next week.), sleep patterns have improved and they do not have headaches. Note for Multiple chronic conditions follow-up: She said that her back was bothering her so [facility] checked and she has 5 spurs on the last 5 spine. 06-18-2020 Unclassified (20 sources) [ADDITIONAL REASON] MCR Well Adult - In general the patient feels well with no complaints, has good energy level and is sleeping well. The patient has a balanced diet and takes supplemental vitamins. The patient does not exercise and sleeps 9 hours per night. The patient denies having trouble with bathing, dressing/grooming, toileting, preparing meals and ambulating. The patient denies having trouble with grocery shopping, driving, use of telephone, housework, laundry, preparing/taking medications and finances. The first day of the last menstrual period was : (age 64). The patient performs monthly self breast exam. 06-18-2020 Unclassified (16 sources) Follow up for multiple chronic conditions - The patient is here for follow-up of arthritis, hyperlipidemia, hypertension, obesity and other condition(s) (moderate NELSON, vit D deficiency). The patient always takes the prescribed medications. No side effects noted. The patient has low activity level and no regular exercise program (walking). The patient's out of office blood pressure checks occur occasionally (once every 2 wks) and dietary compliance is fairly good usually adhering to recommendations. The patient states that breathing effort is stable, there is no recent angina or dyspnea, there are no vision changes or weakness (last eye appointment was about 4 years ago), pain is generally stable (none), sleep patterns have improved and they do not have headaches. Note for Multiple chronic conditions follow-up: Last office visit 11/04/2018. No CPAP.For 2-3 days has had red rash under both breasts. 06-16-2019 Unclassified (16 sources) [ADDITIONAL REASON] MCR Well Adult - In general the patient feels well with no complaints, has good energy level (depends on day) and is sleeping well. The patient has a balanced diet and takes supplemental vitamins. The patient does not exercise and sleeps 8 hours per night. The patient denies having trouble with bathing, dressing/grooming, toileting, preparing meals and ambulating. The patient denies having trouble with grocery shopping, driving, use of telephone, housework, laundry, preparing/taking medications and finances. The patient performs monthly self breast exam. The patient does not have Healthcare Power of Director Revenue or Living Will. 06-16-2019 Unclassified (17 sources) Transition into care - The patient is transitioning into care from a hospital and a summary of care was reviewed. 11-09-2017 Unclassified (20 sources) [ADDITIONAL REASON] MCR Well Adult - In general the patient feels well with minor complaints (Last episode of dizziness was on 11/03/17 - blood pressure was 181/92 so she took meclizine, laid down and slept, and when she woke up she felt fine.), has good energy level and is sleeping well (does get up 2-3 times per night to urinate). The patient has a balanced diet and takes supplemental vitamins. The patient exercises weekly (bike inside) and sleeps 9 hours per night. The patient denies having trouble with bathing, dressing/grooming, toileting, preparing meals and ambulating. The patient denies having trouble with grocery shopping, driving, use of telephone, housework, laundry, preparing/taking medications and finances. The patient performs monthly self breast exam. The patient does not have Healthcare Power of Director Revenue or Living Will. 11-09-2017 Unclassified (20 sources) Follow up for multiple chronic conditions - The patient is here for follow-up of arthritis, hyperlipidemia, hypertension and obesity. The patient always takes the prescribed medications. No side effects noted. The patient has low activity level and no regular exercise program. The patient's out of office blood pressure checks occur occasionally. The patient states that there is no recent angina or dyspnea and they do not have headaches. The patient states that the disease has no overall impact. Note for Multiple chronic conditions follow-up: Patient states she feels well today, only minor complaint of leg stiffness. She states this is normal for her. 02-05-2024 Unclassified (3 sources) Follow up from hospital stay - Name of Hospital: [facility]. Date of Admission: 10/25/2017. Date of Discharge: 10/26/2017. The patient was hospitalized for dizziness. New medications include aspirin , meclizene (and amoxicillin). Post hospital therapies ordered include none (After CT of brain - she needs MRI per hospital, ECHO, carotid doppler and sleep study). Patient was discharged to home. Note for Follow up from hospital stay: Labs, chest x-ray, EKG, and head CT were done. Head CT showed calcification of parietal complex.BP has been running 140s-170s/60s-70s. Has been doing good taking her meds regularly since hospital stay. 11-09-2017 Unclassified (20 sources) Follow up from hospital stay - Name of Hospital: [facility]. Date of Admission: 01/23/25. Date of Discharge: 01/28/25. The patient was hospitalized for surgery (right hemicolectomy w/ intracorporeal anastomosis). No new medications were prescribed. Consultations ordered while in the hospital include surgery (Follow on 02/21/25). Post hospital therapies ordered include none (discussing at surgery follow up). Patient was discharged to home. Current Symptoms: bloating. Note for Follow up from hospital stay: Tylenol, ibuprofen and gabapentin. Has narcotic if has extreme pain but hasn't had to take that. Pain is 2-3/10.Having BMs - watery, pebble size BMs and passing gas. Some fecal incontinence when passing gas.She spoke to surgeon's office regarding the bloating and they weren't concerned. Don't want her taking stool softeners. Walking helps. 02-01-2025 Unclassified (14 sources) C18.2 - Malignant neoplasm of ascending colon,C77.9 - Secondary and unspecified malignant neoplasm of lymph node, unspecified Unclassified (2 sources) Malignant neoplasm of colon Urinary tract infections (20 sources) Acute urinary tract infection; Translations: [Urinary tract infection, site not specified] 10-04-2018 Episodic Past or Other Problems Problem Classification Problem Date Documented Date Episodic/Chronic Mood disorders (8 sources) Mood disorders Onset: 12-06-2024 Resolved: 02-21-2025 12-06-2024 Residual codes; unclassified (2 sources) Other specified health status; Translations: [Other specified health status] Onset: 01-16-2025 Episodic Unclassified (20 sources) Pre-operative clearance - Surgical procedure(s) planned: other (total right knee replacement). Date of procedure: (12/21/2023) Surgeon: (Dr Kalpesh Boles) and Location of procedure: ([facility]) There have been no problems with general anesthesia or blood/blood products. Note for Pre-operative clearance: Pt has an appt with Dr Kalpesh boles on 12/01. Will have preop appt with ortho on 12/09/23. 11-23-2023 Unclassified (20 sources) MCR Well Adult - In general the patient feels well with no complaints, has good energy level and is sleeping well. The patient has a balanced diet and takes supplemental vitamins. The patient exercises 3 - 4 times per week and sleeps 7 hours per night. The patient denies having trouble with bathing, dressing/grooming, toileting, preparing meals and ambulating. The patient denies having trouble with grocery shopping, driving, use of telephone, housework, laundry, preparing/taking medications and finances. The patient performs monthly self breast exam. The patient does not have Healthcare Power of Director Revenue or Living Will. Note for MCR Well Adult: Feeling well with no complaints. 07-27-2023 Unclassified (20 sources) Cold Symptoms - Symptoms include nasal congestion, runny nose, dry cough, productive cough, headache and facial pain, but do not include ear pain, sore throat (did but it is gone), fever, chills or general malaise. The onset was gradual 5 day(s) ago. The symptoms occur constantly. The patient describes this as moderate in severity and worsening (yesterday). Current treatment includes non-prescription cold medication, NSAIDs (nothing today) and vit C and E. The patient has been exposed to an individual with similar symptoms. Patient denies history of seasonal allergies, recurrent sinusitis, recurrent strep pharyngitis, asthma (possible- Dr Daily said she thought she did), tonsillectomy or recurrent ear infections. 01-02-2020 Unclassified (20 sources) UTI - Symptoms include dysuria, urinary frequency, urinary urgency and dark urine, but do not include hematuria, flank pain, abdominal pain or back pain. There is no assiciated pain. There is no radiation. The patient describes the pain as burning. Onset was gradual 2 week(s) ago. There is no known event that preceded symptom onset. The symptoms occur frequently. The patient describes this as moderate in severity and worsening. Symptoms are relieved by cranberry juice, but are not relieved by urinary anesthetics or non-opioid analgesics. Associated symptoms do not include fever, chills, nausea or vomiting. Risk factors include menopause. 10-04-2018 Unclassified (20 sources) Leg pain - The leg pain began gradually over time and has been occurring for 1 week. The symptoms have been occurring in an increasing pattern. The symptoms are described as a piercing pain and are moderate to severe. The symptoms occur on exertion, when climbing stairs and when walking. There is involvement of the left lower extremity. There are no precipitating factors. Aggravating factors include sitting, walking, running and climbing stairs. There has been no associated chest pain, dizziness, dyspnea, cough, fever or chills. There is a family history of hypertension, while there is no history of myocardial infarction before age 55, coronary artery disease, diabetes, elevated cholesterol, elevated triglycerides or peripheral vascular disease. Note for Leg pain: Iced it which took the swelling away but then it came back.Has had times of no pain at all. Has taken ibuprofen which helps.No recent prolonged travel or sitting prior to symptoms starting.No history of blood clots.Mentions that she had gone about 2 months without vertigo but then has had 2 in April. One happened when she was really tired. Dizzy, vomited, hot - took meclizine and slept and felt fine after that. Saw ENT and was told that ears were fine. Does have constant ringing in the ears. 04-23-2018 Unclassified (20 sources) Follow up diagnostic procedure results - Diagnostic tests performed on : (11/11/17) include mammography, MRI and other (echocardiogram, carotid doppler, sleep study - this was last week and results are not back yet). Follow up visit with no current symptoms. Note for Diagnostic procedure results follow-up: Last episode of vertigo was on Thursday - threw up with it but no headache or other symptoms with it. She took meclizine and slept and felt fine when she woke up. Has had a few other episodes (1-2 times/week) - usually takes meclizine right away and is fine. No known trigger.Has been taking higher dose of lisinopril-HCTZ but thought pharmacist told her she didn't need the metoprolol so hasn't been taking that since her last appt.BP is running 150-160s systolically but when has vertiginous episode it can go up to 170s-180s.Has been having constant humming/ringing in her left ear - seems to get more intense with the vertigo.Also has decreased hearing in the left ear with episodes - sounds like she is in a tunnel or muffled. 12-13-2017 Unclassified (20 sources) Cold Symptoms - Symptoms include nasal congestion, sore throat (improving), productive cough (yellow sputum), wheezing (at night time, has shortness of breath occasionally. Does have an achy pain of her left lower anterior chest. ), general malaise and headache, but do not include runny nose, ear pain, dry cough, fever, chills or facial pain. The onset was sudden 1 week(s) ago. The symptoms occur constantly. The patient describes this as moderate in severity and unchanged. Current treatment includes non-prescription cold medication (Tylenol Cold) and Vicks Vapor Rub ([place]). Risk factors do not include smoking. The patient has been exposed to an individual with an upper respiratory infection ([facility] Patient denies history of seasonal allergies, asthma or tonsillectomy. Note for Upper respiratory infection: Patient applied Vicks vapor rub to upper chest. Noticed that she developed a rash where she applied the Vicks Vapor rub. No previous rash developed in the past when patient used the Vicks Vapor rub. Reviewed by CHARISSE. 10-09-2016 Unclassified (20 sources) Well adult female - The patient feels well with no complaints, has good energy level and is sleeping well. The first day of the last menstrual period was : (1999). The patient has a balanced diet and takes supplemental vitamins. The patient exercises daily (q am). The patient sleeps 8 hours per night. Note for Well adult female: Pt has no complaints. 10-03-2015 Unclassified (20 sources) Cough - The onset of the cough has been gradual and has been occurring in a persistent pattern for 1 week (Last Thursday.). The course has been increasing. The cough occurs all the time. The cough is aggravated by the supine posture. Associated symptoms include headache (and ribs are sore when she coughs. SOB and pulse ox 96%. Has used throat/cough lozenges and uses vicks vapor rub at night and drinking fluids.) and sore throat (Had s/t when first started out with cough but none now.), while there is no fever or post-nasal drip. Note for Cough: Dry at times while other times will expectorate small amounts of yellowish colored sputum. + exposure to someone with similar symptoms. 02-12-2015 Unclassified (20 sources) Wrist pain - The pain is in the left wrist and is described as being located in the radial aspect of wrist. The onset of the wrist pain has been gradual and has been occurring in a persistent pattern for 2 months. The course has been worsening. The wrist pain is characterized as a moderate sharp stabbing. Aggravating factors include physical activity. Note for Wrist pain: Pt also has high bp. She was on metoprolol 50mg BID and lisinopril 20mg/HCTZ 12.5mg in the past but stopped 2-3 months ago because she wanted to change providers. Has ringing in her ears occasionally. No headaches or dizziness. Has been trying to eat better and walk more. Last mammogram and pap was 8-10 years ago. Has never had a colonoscopy. Had labs done through [facility] outreach screening but never received the results. If there is time today she would like to have a complete physical exam. 05-03-2014 Unclassified (20 sources) MCR Well Adult - In general the patient feels well with no complaints, has good energy level and is sleeping well. The patient has a balanced diet and takes supplemental vitamins. The patient exercises 3 - 4 times per week (walks) and sleeps 7 hours per night. The patient denies having trouble with bathing, dressing/grooming, toileting, preparing meals and ambulating. The patient denies having trouble with grocery shopping, driving, use of telephone, housework, laundry, preparing/taking medications and finances. The patient performs monthly self breast exam. The patient does not have Healthcare Power of Director Revenue or Living Will. Note for MCR Well Adult: Doing TOPS for weight loss - cut out all sweets but ice cream. 06-27-2024 Unclassified (1 source) Patient encounter status 01-11-2025 Unclassified (6 sources) MCR Well Adult - In general the patient feels well with minor complaints (Dx with colon cancer.), has decreased energy level and is sleeping well. The patient has a balanced diet and takes no supplemental vitamins & iron. The patient exercises 3 - 4 times per week and sleeps 8 hours per night. The patient denies having trouble with bathing, dressing/grooming, toileting, preparing meals and ambulating. The patient denies having trouble with grocery shopping, driving, use of telephone, housework, laundry, preparing/taking medications and finances. The patient performs monthly self breast exam. The patient does not have Healthcare Power of Director Revenue or Living Will. Note for MCR Well Adult: Has spoken with international recruiter and is in process.Started chemo - has had one treatment so far. Every other week x 12 sessions. 03-24-2025 Results Test Name Value Interpretation Reference Range Facility Carcinoembryonic Antigenon 0 05-03-2025 CEA 8.3 ng/mL High 0.0-4.7 [facility] Comment on above: Result Comment: Nons mokers <3.9 Smokers <5.6 [facility] Electrochemiluminescence Immunoassay (ECLIA) Values obtained with different assay methods or kits cannot be used interchangeably. Results cannot be interpreted as absolute evidence of the presence or absence of malignant disease. Performed at: - [facility], [place], [place] [id number] Agricultural Technician: Abimael Sheridan PhD, Phone: [phone] Performed By: #### L 503.0106, L503.6550, L3100.2300, L501.2300, L503.6030 ####[facility] [id number] [place], [address] Absolute lymphocyte countOrd ered By: [facility] on 05-02-2025 Lymphocytes Auto (Unsp spec) [#/Vol] 1.36 10*3/uL 0.83-4.51 [facility] Absolute neutrophil countOrd ered By: [facility] on 05-02-2025 Neutrophils (Bld) [#/Vol] 1.9 10*3/uL Low 2.0-7.7 [facility] Anion gap in Serum or Plasma Ordered By: [facility] on 05-02-2025 Anion gap [Moles/Vol] 13 mmol/L 5-15 [facility] Automated lymphocyte count a s percentage of total leukocytesOrdered By: [facility] on 05-02-2025 Lymphocytes/100 WBC Auto (Unsp spec) 32.5 % 19-41 [facility] BUN/creatinine ratioOrdered By: [facility] on 05-02-2025 Urea nitrogen/Creatinine [Mass ratio] 22.2 mg/mg High 10-20 [facility] Basophil percentageOrdered B y: [facility] [place] on 05-02-2025 Basophils/100 WBC (Bld) 1.0 % 0-1 [facility] Bilirubin, totalOrdered By: [facility] on 05-02-2025 Bilirubin [Mass/Vol] 0.31 mg/dL 0.00-1.30 [facility] CBC W/Diff, Automatedon Absolute Lymph 1.36 X10 3/uL Normal 0.83-4.51 [facility] Comment on above: Performed By: #### L 100.0100, L500.4050, L501.5200 #### [facility] [address] [place], [address] Absolute Neut 1.9 X10 3/uL Low 2.0-7.7 [facility] Comment on above: Performed By: #### L 100.0100, L500.4050, L501.5200 #### [facility] [address] [place], [address] Basophils/100 WBC (Bld) 1.0 % Normal 0-1 [facility] Comment on above: Performed By: #### L 100.0100, L500.4050, L501.5200 #### [facility] [address] [place], [address] Eosinophils/100 WBC (Bld) 8.6 % High 0-5 [facility] Comment on above: Performed By: #### L 100.0100, L500.4050, L501.5200 #### [facility] [address] [place], [address] Erythrocyte distribution width (RBC) [Ratio] 14.4 % Normal 11.6-14.6 [facility] Comment on above: Performed By: #### L 100.0100, L500.4050, L501.5200 #### [facility] [address] [place], [address] Hematocrit (Bld) [Volume fraction] 36.1 % Low 37-47 [facility] Comment on above: Performed By: #### L 100.0100, L500.4050, L501.5200 #### [facility] [address] [place], [address] Hemoglobin (Bld) [Mass/Vol] 11.9 g/dL Low 12.0-15.0 [facility] Comment on above: Performed By: #### L 100.0100, L500.4050, L501.5200 #### [facility] [address] [place], [address] IG% 0.700 Normal 0.0-0.9 [facility] Comment on above: Result Comment: IG% - Immature Granulocytes (promyelocytes, myelocytes and metamyelocytes) > 1% indicates that a LEFT SHIFT is Present. Performed By: #### L 100.0100, L500.4050, L501.5200 #### [facility] [address] [place], [address] Lymphocytes/100 WBC (Bld) 32.5 % Normal 19-41 [facility] Comment on above: Performed By: #### L 100.0100, L500.4050, L501.5200 #### [facility] [address] [place], [address] MCH (RBC) [Entitic mass] 29.8 pg Normal 27.0-32.0 [facility] Comment on above: Performed By: #### L 100.0100, L500.4050, L501.5200 #### [facility] [address] [place], [address] MCHC (RBC) [Mass/Vol] 33.0 g/dL Normal 32-36 [facility] Comment on above: Performed By: #### L 100.0100, L500.4050, L501.5200 #### [facility] [address] [place], [address] MCV (RBC) [Entitic vol] 90.5 fL Normal 81-99 [facility] Comment on above: Performed By: #### L 100.0100, L500.4050, L501.5200 #### [facility] [address] [place], [address] Monocytes/100 WBC (Bld) 11.5 % High 0-10 [facility] Comment on above: Performed By: #### L 100.0100, L500.4050, L501.5200 #### [facility] [address] [place], [address] Neutrophils/100 WBC (Bld) 45.7 % Low 47-70 [facility] Comment on above: Performed By: #### L 100.0100, L500.4050, L501.5200 #### [facility] [address] [place], [address] Nucleated RBC (Bld) [#/Vol] 0 10*3/uL Normal 0-5 [facility] Comment on above: Performed By: #### L 100.0100, L500.4050, L501.5200 #### [facility] [address] [place], [address] Platelet mean volume (Bld) [Entitic vol] 8.3 fL Normal 6.2-12.0 [facility] Comment on above: Performed By: #### L 100.0100, L500.4050, L501.5200 #### [facility] [address] [place], [address] Platelets (Bld) [#/Vol] 197 10*3/uL Normal 150-450 [facility] Comment on above: Performed By: #### L 100.0100, L500.4050, L501.5200 #### [facility] [address] [place], [address] RBC (Bld) [#/Vol] 3.99 10*6/uL Low 4.2-5.4 [facility] Comment on above: Performed By: #### L 100.0100, L500.4050, L501.5200 #### [facility] [address] [place], [address] RDW SD 43.6 fl Normal 35.1-43.9 [facility] Comment on above: Performed By: #### L 100.0100, L500.4050, L501.5200 #### [facility] [address] [place], [address] WBC (Bld) [#/Vol] 4.2 10*3/uL Low 4.4-11.0 [facility] Comment on above: Performed By: #### L 100.0100, L500.4050, L501.5200 #### [facility] [address] [place], [address] Carbon dioxide, total [Moles /volume] in Central venous bloodOrdered By: [place] on 05-02-2025 CO2 [Moles/Vol] 22.3 mmol/L 21.0-32.0 [facility] Chloride assayOrdered By: [place] on 05-02-2025 Chloride [Moles/Vol] 103 mmol/L 98-108 [facility] Comprehensive Metabolic Prof ilon 05-02-2025 Albumin [Mass/Vol] 3.4 g/dL Normal 3.4-4.8 [facility] Comment on above: Performed By: #### L 100.0100, L500.4050, L501.5200 #### [facility] [address] [place], [address] Albumin/Globulin [Mass ratio] 1.1 {ratio} Normal 0.9-2.4 [facility] Comment on above: Performed By: #### L 100.0100, L500.4050, L501.5200 #### [facility] [address] [place], [address] ALK PHOS 82 U/L Normal 35-104 [facility] Comment on above: Performed By: #### L 100.0100, L500.4050, L501.5200 #### [facility] [address] [place], [address] ALT [Catalytic activity/Vol] 53 U/L High <=34 [facility] Comment on above: Performed By: #### L 100.0100, L500.4050, L501.5200 #### [facility] [address] [place], [address] AST [Catalytic activity/Vol] 48 U/L High <=31 [facility] Comment on above: Performed By: #### L 100.0100, L500.4050, L501.5200 #### [facility] [address] [place], [address] Bilirubin [Mass/Vol] 0.31 mg/dL Normal 0.00-1.30 [facility] Comment on above: Performed By: #### L 100.0100, L500.4050, L501.5200 #### [facility] [address] [place], [address] BUN/CRE 22.2 RATIO High 10-20 [facility] Comment on above: Performed By: #### L 100.0100, L500.4050, L501.5200 #### [facility] [address] [place], [address] Calcium [Mass/Vol] 9.1 mg/dL Normal 7.6-11.0 [facility] Comment on above: Performed By: #### L 100.0100, L500.4050, L501.5200 #### [facility] [address] [place], [address] Chloride [Moles/Vol] 103 mmol/L Normal 98-108 [facility] Comment on above: Performed By: #### L 100.0100, L500.4050, L501.5200 #### [facility] [address] [place], [address] CO2 [Moles/Vol] 22.3 mmol/L Normal 21.0-32.0 [facility] Comment on above: Performed By: #### L 100.0100, L500.4050, L501.5200 #### [facility] [address] [place], [address] Creatinine [Mass/Vol] 0.76 mg/dL Normal 0.70-1.20 [facility] Comment on above: Performed By: #### L 100.0100, L500.4050, L501.5200 #### [facility] [address] [place], [address] ECRCL 60.24 ml/min Normal 50-250 [facility] Comment on above: Performed By: #### L 100.0100, L500.4050, L501.5200 #### [facility] [address] [place], [address] GAP 13 Normal 5-15 [facility] Comment on above: Performed By: #### L 100.0100, L500.4050, L501.5200 #### [facility] [address] [place], [address] GFR/1.73 sq M.predicted among non-blacks MDRD (S/P/Bld) [Vol rate/Area] 82 mL/min/{1.73_m2} Normal >60 [facility] Comment on above: Result Comment: mL/m in/1.73m2 CKD-EPI Creatinine Equation (2020) Performed By: #### L 100.0100, L500.4050, L501.5200 #### [facility] [address] [place], [address] Globulin (S) [Mass/Vol] 3.1 g/dL Normal 2.2-4.2 [facility] Comment on above: Performed By: #### L 100.0100, L500.4050, L501.5200 #### [facility] [address] [place], [address] Glucose [Mass/Vol] 153 mg/dL High 70-99 [facility] Comment on above: Performed By: #### L 100.0100, L500.4050, L501.5200 #### [facility] [address] [place], [address] Potassium [Moles/Vol] 3.3 mmol/L Normal 3.3-5.1 [facility] Comment on above: Performed By: #### L 100.0100, L500.4050, L501.5200 #### [facility] [address] [place], [address] Sodium [Moles/Vol] 138 mmol/L Normal 133-145 [facility] Comment on above: Performed By: #### L 100.0100, L500.4050, L501.5200 #### [facility] [address] [place], [address] T PROT 6.5 g/dL Normal 5.9-8.4 [facility] Comment on above: Performed By: #### L 100.0100, L500.4050, L501.5200 #### [facility] [address] [place], [address] Urea nitrogen [Mass/Vol] 17 mg/dL Normal 4-19 [facility] Comment on above: Performed By: #### L 100.0100, L500.4050, L501.5200 #### [facility] [address] [place], [address] Eosinophil percentageOrdered By: [place] on 05-02-2025 Eosinophils/100 WBC (Bld) 8.6 % High 0-5 [facility] Erythrocyte distribution wid th ratioOrdered By: [place] on 05-02-2025 Erythrocyte distribution width (RBC) [Ratio] 14.4 % 11.6-14.6 [facility] Erythrocyte distribution wid th standard deviationOrdered By: [place] on 05-02-2025 Erythrocyte distribution width (RBC) [Ratio] 43.6 fl 35.1-43.9 [facility] Ferritinon 05-02-2025 Ferritin [Mass/Vol] 151 ng/mL Normal 22-378 [facility] Comment on above: Performed By: #### L 503.0106, L503.6550, L3100.2300, L501.2300, L503.6030 ####[facility] [address] [place], [place], [id number] Glomerular filtration rate ( GFR) estimation/1.73 sq m using serum, plasma, or whole bOrdered By: [place] on 05-02-2025 GFR/1.73 sq M.predicted among non-blacks MDRD (S/P/Bld) [Vol rate/Area] 82 mL/min/{1.73_m2} >60 [facility] Comment on above: mL/min/1.73m2 CKD-EP I Creatinine Equation (2020) Hematocrit Auto (Bld) [Volum e fraction]Ordered By: [place] on 05-02-2025 Hematocrit (Bld) [Volume fraction] 36.1 % Low 37-47 [facility] Hemoglobin measurementOrdere d By: [place] on 05-02-2025 Hemoglobin (Bld) [Mass/Vol] 11.9 g/dL Low 12.0-15.0 [facility] Immature granulocytes/100 WB C Auto (Bld)Ordered By: [place] on 05-02-2025 Immature granulocytes/100 WBC (Bld) 0.700 % 0.0-0.9 [facility] Comment on above: IG% - Immature Granu locytes (promyelocytes, myelocytes and metamyelocytes) > 1% indicates that a LEFT SHIFT is Present. Iron+Iron Binding Capacityon 05-02-2025 Iron [Mass/Vol] 70 ug/dL Normal 50-170 [facility] Comment on above: Performed By: #### L 503.0106, L503.6550, L3100.2300, L501.2300, L503.6030 ####[facility] [id number] [place], [place], [id number] IRON SATURATION 21.0 Normal 13-59 [facility] Comment on above: Performed By: #### L 503.0106, L503.6550, L3100.2300, L501.2300, L503.6030 ####[facility] [address] [place], [address] TIBC 337 ug/dL Normal 250-450 [facility] Comment on above: Performed By: #### L 503.0106, L503.6550, L3100.2300, L501.2300, L503.6030 ####[facility] [address] [place], [address] UIBC 267 ug/dL Normal 228-428 [facility] Comment on above: Performed By: #### L 503.0106, L503.6550, L3100.2300, L501.2300, L503.6030 ####[facility] [address] [place], [address] Laboratory - Chemistry and C hemistry - challengeOrdered By: [place] on 05-02-2025 AST [Catalytic activity/Vol] 48 U/L High <32 [facility] MCV (mean corpuscular volume ) determinationOrdered By: [place] on 05-02-2025 MCV (RBC) [Entitic vol] 90.5 fL 81-99 [facility] Magnesiumon 05-02-2025 Magnesium [Mass/Vol] 2.1 mg/dL Normal 1.5-2.2 [facility] Comment on above: Performed By: #### L 100.0100, L500.4050, L501.5200 #### [facility] [address] [place], [address] Magnesium measurement (mass/ volume)Ordered By: [place] on 05-02-2025 Magnesium (Unsp spec) [Mass/Vol] 2.1 mg/dL 1.5-2.2 [facility] Mean corpuscular hemoglobin (MCH) determinationOrdered By: [place] on 05-02-2025 MCH (RBC) [Entitic mass] 29.8 pg 27.0-32.0 [facility] Mean corpuscular hemoglobin concentration (MCHC) determinationOrdered By: [place] on 05-02-2025 MCHC (RBC) [Mass/Vol] 33.0 g/dL 32-36 [facility] Mean platelet volume determi nationOrdered By: [facility] Senia on 05-02-2025 Platelet mean volume (Bld) [Entitic vol] 8.3 fL 6.2-12.0 [facility] Monocyte percentageOrdered B y: [facility] Senia on 05-02-2025 Monocytes/100 WBC (Bld) 11.5 % High 0-10 [facility] Neutrophil percentageOrdered By: [facility] on 05-02-2025 Neutrophils/100 WBC (Bld) 45.7 % Low 47-70 [facility] Nucleated red blood cell per centageOrdered By: [facility] on 05-02-2025 Nucleated RBC/100 WBC (Bld) [Ratio] 0 % 0-5 [facility] Oncology Visit Reporton 07 Oncology Visit Report [facility] [address] [place] [id number] OFFICE VISIT Date of Service: 05/02/25 0800 MR#: [id number] Acct: [id number] Name: JESSIKA CARRILLO Rep #: [id number] : 1950 From: Alyssa Lynch NP [employer]ITY [employer]URE ENGINEER -C Age/Sex: 74/F Location: [facility] Status: Signed HPI Subjective Date of Service 05/02/25 Chief Complaint Colon cancer on treatment History of Present Illness 74-year-old female with no family of colon cancer had screening colonoscopy August 17, [address] Boles at [place] with 2 sessile polypoid lesions were found, at 30 cm was positive for adenocarcinoma, the second lesion was at 50 cm no pathology was found. November 17, 2024 CT scan of the abdomen and pelvis showed a filling defect at the mid descending colon, none specific mesenteric lymph nodes, hypodense foci in the right and left hepatic lobes too small to characterize. Incidental findings were a right renal cyst and a 10 mm hypodense focus in the upper pole of the left kidney. Patient was then referred to [facility] for further management. December 31, 2024 MRI of the abdomen and pelvis: Benign cysts in the liver and kidney, ascending colonic mass with adjacent infiltrative or reactive inflammatory change with a mass abutting the inferior right lobe of liver without dividing the fat plane and right mesenteric lymphadenopathy. December 31, 2024 CT of the chest: 2 nonspecific pulmonary nodules in the left lung base measuring 6 mm and 3 mm. January 23, 2025 robotic right hemicolectomy at [facility] by Dr. Antonio. 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 Mismatch repair protein by IHC showed MLH1 absent/lost, PMS2 absent/lost, MSH2 present/intact, MSH6 present/intact. 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 No further testing was indicated. Treatment summary and response: January 23, 2025 robotic right hemicolectomy at [facility]. March 21, 2025 adjuvant modified FOLFOX 6 Interval History The patient is presenting to clinic accompanied by adult daughter, Don for an evaluation anticipating she will begin cycle 4 adjuvant mFOLFOX. Reports she had 4-6 episodes of diarrhea on days 4-6 of each cycle. Admits she usually has some episodes before she decides to use loperamide. However, loperamide is effective. . Appetite fair, PO fluid intake estimated as 2 L of fluid each day, water. No numbness/tingling outside of cold exposure. Denies fever/chills, sweats, headaches, dizziness, mouth sores, rash, abd pain, N/V, swelling of her extremities. [facility] Medical History Anemia Diarrhea due to drug Encounter for chemotherapy management Loss of hearing Wears glasses Post-menopausal Cancer Asthma History of pain when walking Encounter for education Regional lymph node metastasis present Degenerative joint disease Arthritis High cholesterol Migraine headache History of Meniere's disease Former smoker Hx of echocardiogram Hypertension Surgical History History of hysteroscopy History of colectomy History of total right knee replacement Hx of colonoscopy Family History Father Heart disease Aunt Breast cancer Social History Smoking Status: Former smoker Tobacco: How many years used: 5 alcohol intake: never substance use type: does not use ROS ROS Narrative Negative except as documented in the interval HPI Intake Vital Signs 04/18/25 09:29 05/02/25 08:03 Height 5 ft 2 in 5 ft 2 in Weight: 185 lb 180 lb 7 oz BMI 33.8 33.0 BP 129/83 H 118/76 Blood Pressure Location Lt brachial Rt brachial Position Sitting Sitting Respiration 16 18 Pulse 69 77 Pulse Source Monitor Monitor Temp 98.5 F 97.7 F L Temperature Source Temporal Artery Temporal Artery Pulse Oximetry (%) 96 97 Oxygen Delivery Method room air room air Intake Is patient in pain?: No Allergies No Known Allergies Allergy (Verified 05/02/25 08:04) Medications ???Medication ???Instructions ???Recorded ???Confirmed ???Type lisinopril 20 1 tab PO DAILY 03/18/21 05/02/25 H istory mg-hydrochlorothiazide 25 mg tablet metoprolol tartrate 50 mg tablet 50 mg PO DAILY 03/18/21 05/02/25 H ist (more content not included)... Normal [facility] Phosphoruson 05-02-2025 Phosphate [Mass/Vol] 3.0 mg/dL Normal 2.7-4.5 [facility] Comment on above: Performed By: #### L 503.0106, L503.6550, L3100.2300, L501.2300, L503.6030 #### [facility] [address] [place], [address] Platelet countOrdered By: Ru Conn on 05-02-2025 Platelets (Bld) [#/Vol] 197 10*3/uL 150-450 [facility] Potassium measurement (mass/ volume)Ordered By: [place] on 05-02-2025 Potassium (Unsp spec) [Mass/Vol] 3.3 mmol/L 3.3-5.1 [facility] RBC Auto (Bld) [#/Vol]Ordere d By: [place] on 05-02-2025 RBC (Bld) [#/Vol] 3.99 10*6/uL Low 4.2-5.4 [facility] Serum creatinine measurement (mass/volume)Ordered By: [place] on 05-02-2025 Creatinine [Mass/Vol] 0.76 mg/dL 0.70-1.20 [facility] Serum globulin measurementOr dered By: [place] on 05-02-2025 Globulin (S) [Mass/Vol] 3.1 g/dL 2.2-4.2 [facility] Serum glucose measurement (m ass/volume)Ordered By: [place] on 05-02-2025 Glucose [Mass/Vol] 153 mg/dL High 70-99 [facility] Serum or plasma alanine rojo otransferase (ALT) measurementOrdered By: [place] on 05-02-2025 ALT [Catalytic activity/Vol] 53 U/L High <35 [facility] Serum or plasma albumin alfredo urement (mass/volume)Ordered By: [place] on 05-02-2025 Albumin [Mass/Vol] 3.4 g/dL 3.4-4.8 [facility] Serum or plasma albumin/glob ulin mass ratioOrdered By: [place] on 05-02-2025 Albumin/Globulin [Mass ratio] 1.1 {ratio} 0.9-2.4 [facility] Serum or plasma alkaline marisabel sphatase measurementOrdered By: [place] on 05-02-2025 ALP [Catalytic activity/Vol] 82 U/L 35-104 [facility] Serum or plasma calcium alfredo urement (mass/volume)Ordered By: [place] on 05-02-2025 Calcium [Mass/Vol] 9.1 mg/dL 7.6-11.0 [facility] Serum or plasma urea nitroge n measurement (mass/volume)Ordered By: [place] on 05-02-2025 Urea nitrogen [Mass/Vol] 17 mg/dL 4-19 [facility] Sodium levelOrdered By: Kurt mejia Senia on 05-02-2025 Sodium [Moles/Vol] 138 mmol/L 133-145 [facility] Total proteinOrdered By: Shady burroughs Senia on 05-02-2025 Protein [Mass/Vol] 6.5 g/dL 5.9-8.4 [facility] Vitamin B12on 05-02-2025 Cobalamin (Vitamin B12) [Mass/Vol] 633 pg/mL Normal 180-914 [facility] Comment on above: Performed By: #### L 503.0106, L503.6550, L3100.2300, L501.2300, L503.6030 ####[facility] [address] [place], [address] White blood cell (WBC) count Ordered By: Kurtjackie Conn on 05-02-2025 WBC (Bld) [#/Vol] 4.2 10*3/uL Low 4.4-11.0 [facility] Absolute lymphocyte countOrd ered By: New [place] on 04-18-2025 Lymphocytes Auto (Unsp spec) [#/Vol] 1.59 10*3/uL 0.83-4.51 [facility] Absolute neutrophil countOrd ered By: [place] on 04-18-2025 Neutrophils (Bld) [#/Vol] 2.6 10*3/uL 2.0-7.7 [facility] Anion gap in Serum or Plasma Ordered By: [place] on 04-18-2025 Anion gap [Moles/Vol] 12 mmol/L 5-15 [facility] Automated lymphocyte count a s percentage of total leukocytesOrdered By: [place] on 04-18-2025 Lymphocytes/100 WBC Auto (Unsp spec) 30.1 % 19-41 [facility] BUN/creatinine ratioOrdered By: [place] on 04-18-2025 Urea nitrogen/Creatinine [Mass ratio] 18.4 mg/mg 10-20 [facility] Basophil percentageOrdered B y: [place] on 04-18-2025 Basophils/100 WBC (Bld) 0.9 % 0-1 [facility] Bilirubin, totalOrdered By: [place] on 04-18-2025 Bilirubin [Mass/Vol] 0.25 mg/dL 0.00-1.30 [facility] CBC W/Diff, Automatedon 04-02 Absolute Lymph 1.59 X10 3/uL Normal 0.83-4.51 [facility] Comment on above: Performed By: #### L 100.0100, L500.4050, L501.5200 ####[facility] [address] [place], [address] Absolute Neut 2.6 X10 3/uL Normal 2.0-7.7 [facility] Comment on above: Performed By: #### L 100.0100, L500.4050, L501.5200 ####[facility] [address] [place], [address] Basophils/100 WBC (Bld) 0.9 % Normal 0-1 [facility] Comment on above: Performed By: #### L 100.0100, L500.4050, L501.5200 ####[facility] [address] [place], [address] Eosinophils/100 WBC (Bld) 5.3 % High 0-5 [facility] Comment on above: Performed By: #### L 100.0100, L500.4050, L501.5200 ####[facility] [address] [place], [address] Erythrocyte distribution width (RBC) [Ratio] 13.2 % Normal 11.6-14.6 [facility] Comment on above: Performed By: #### L 100.0100, L500.4050, L501.5200 ####[facility] [address] [place], [address] Hematocrit (Bld) [Volume fraction] 35.4 % Low 37-47 [facility] Comment on above: Performed By: #### L 100.0100, L500.4050, L501.5200 ####[facility] [address] [place], [address] Hemoglobin (Bld) [Mass/Vol] 11.8 g/dL Low 12.0-15.0 [facility] Comment on above: Performed By: #### L 100.0100, L500.4050, L501.5200 ####[facility] [address] [place], [address] IG% 0.600 Normal 0.0-0.9 [facility] Comment on above: Result Comment: IG% - Immature Granulocytes (promyelocytes, myelocytes and metamyelocytes) > 1% indicates that a LEFT SHIFT is Present. Performed By: #### L 100.0100, L500.4050, L501.5200 ####[facility] [address] [place], [address] Lymphocytes/100 WBC (Bld) 30.1 % Normal 19-41 [facility] Comment on above: Performed By: #### L 100.0100, L500.4050, L501.5200 ####[facility] [address] [place], [address] MCH (RBC) [Entitic mass] 30.0 pg Normal 27.0-32.0 [facility] Comment on above: Performed By: #### L 100.0100, L500.4050, L501.5200 ####[facility] [address] [place], [address] MCHC (RBC) [Mass/Vol] 33.3 g/dL Normal 32-36 [facility] Comment on above: Performed By: #### L 100.0100, L500.4050, L501.5200 ####[facility] [address] [place], [address] MCV (RBC) [Entitic vol] 90.1 fL Normal 81-99 [facility] Comment on above: Performed By: #### L 100.0100, L500.4050, L501.5200 ####[facility] [address] [place], [address] Monocytes/100 WBC (Bld) 13.4 % High 0-10 [facility] Comment on above: Performed By: #### L 100.0100, L500.4050, L501.5200 ####[facility] [address] [place], [address] Neutrophils/100 WBC (Bld) 49.7 % Normal 47-70 [facility] Comment on above: Performed By: #### L 100.0100, L500.4050, L501.5200 ####[facility] [address] [place], [address] Nucleated RBC (Bld) [#/Vol] 0 10*3/uL Normal 0-5 [facility] Comment on above: Performed By: #### L 100.0100, L500.4050, L501.5200 ####[facility] [address] [place], [address] Platelet mean volume (Bld) [Entitic vol] 8.6 fL Normal 6.2-12.0 [facility] Comment on above: Performed By: #### L 100.0100, L500.4050, L501.5200 ####[facility] [address] [place], [address] Platelets (Bld) [#/Vol] 216 10*3/uL Normal 150-450 [facility] Comment on above: Performed By: #### L 100.0100, L500.4050, L501.5200 ####[facility] [address] [place], [address] RBC (Bld) [#/Vol] 3.93 10*6/uL Low 4.2-5.4 [facility] Comment on above: Performed By: #### L 100.0100, L500.4050, L501.5200 ####[facility] [address] [place], [address] RDW SD 42.1 fl Normal 35.1-43.9 [facility] Comment on above: Performed By: #### L 100.0100, L500.4050, L501.5200 ####[facility] [address] [place], [address] WBC (Bld) [#/Vol] 5.3 10*3/uL Normal 4.4-11.0 [facility] Comment on above: Performed By: #### L 100.0100, L500.4050, L501.5200 ####[facility] [address] [place], [address] Carbon dioxide, total [Moles /volume] in Central venous bloodOrdered By: [place] on 04-18-2025 CO2 [Moles/Vol] 24.3 mmol/L 21.0-32.0 [facility] Chloride assayOrdered By: Ru Conn on 04-18-2025 Chloride [Moles/Vol] 102 mmol/L 98-108 [facility] Comprehensive Metabolic Prof ilon 04-18-2025 Albumin [Mass/Vol] 3.6 g/dL Normal 3.4-4.8 [facility] Comment on above: Performed By: #### L 100.0100, L500.4050, L501.5200 ####[facility] [address] [place], [address] Albumin/Globulin [Mass ratio] 1.3 {ratio} Normal 0.9-2.4 [facility] Comment on above: Performed By: #### L 100.0100, L500.4050, L501.5200 ####[facility] [address] [place], [address] ALK PHOS 85 U/L Normal 35-104 [facility] Comment on above: Performed By: #### L 100.0100, L500.4050, L501.5200 ####[facility] [address] [place], [address] ALT [Catalytic activity/Vol] 24 U/L Normal <=34 [facility] Comment on above: Performed By: #### L 100.0100, L500.4050, L501.5200 ####[facility] [address] [place], [address] AST [Catalytic activity/Vol] 25 U/L Normal <=31 [facility] Comment on above: Performed By: #### L 100.0100, L500.4050, L501.5200 ####[facility] [address] [place], [address] Bilirubin [Mass/Vol] 0.25 mg/dL Normal 0.00-1.30 [facility] Comment on above: Performed By: #### L 100.0100, L500.4050, L501.5200 ####[facility] [address] [place], [address] BUN/CRE 18.4 RATIO Normal 10-20 [facility] Comment on above: Performed By: #### L 100.0100, L500.4050, L501.5200 ####[facility] [address] [place], [address] Calcium [Mass/Vol] 9.4 mg/dL Normal 7.6-11.0 [facility] Comment on above: Performed By: #### L 100.0100, L500.4050, L501.5200 ####[facility] [address] [place], [address] Chloride [Moles/Vol] 102 mmol/L Normal 98-108 [facility] Comment on above: Performed By: #### L 100.0100, L500.4050, L501.5200 ####[facility] [address] [place], [address] CO2 [Moles/Vol] 24.3 mmol/L Normal 21.0-32.0 [facility] Comment on above: Performed By: #### L 100.0100, L500.4050, L501.5200 ####[facility] [address] [place], [address] Creatinine [Mass/Vol] 0.78 mg/dL Normal 0.70-1.20 [facility] Comment on above: Performed By: #### L 100.0100, L500.4050, L501.5200 ####[facility] [address] [place], [address] ECRCL 61.03 ml/min Normal 50-250 [facility] Comment on above: Performed By: #### L 100.0100, L500.4050, L501.5200 ####[facility] [address] [place], [address] GAP 12 Normal 5-15 [facility] Comment on above: Performed By: #### L 100.0100, L500.4050, L501.5200 ####[facility] [address] [place], [address] GFR/1.73 sq M.predicted among non-blacks MDRD (S/P/Bld) [Vol rate/Area] 79 mL/min/{1.73_m2} Normal >60 [facility] Comment on above: Result Comment: mL/m in/1.73m2 CKD-EPI Creatinine Equation (2020) Performed By: #### L 100.0100, L500.4050, L501.5200 ####[facility] [address], [address] Globulin (S) [Mass/Vol] 2.8 g/dL Normal 2.2-4.2 [facility] Comment on above: Performed By: #### L 100.0100, L500.4050, L501.5200 ####[facility] [address] [place], [address] Glucose [Mass/Vol] 135 mg/dL High 70-99 [facility] Comment on above: Performed By: #### L 100.0100, L500.4050, L501.5200 ####[facility] [address] [place], [address] Potassium [Moles/Vol] 3.9 mmol/L Normal 3.3-5.1 [facility] Comment on above: Performed By: #### L 100.0100, L500.4050, L501.5200 ####[facility] [address] [place], [address] Sodium [Moles/Vol] 138 mmol/L Normal 133-145 [facility] Comment on above: Performed By: #### L 100.0100, L500.4050, L501.5200 ####[facility] [address] [place], [address] T PROT 6.4 g/dL Normal 5.9-8.4 [facility] Comment on above: Performed By: #### L 100.0100, L500.4050, L501.5200 ####[facility] [address] [place], [address] Urea nitrogen [Mass/Vol] 14 mg/dL Normal 4-19 [facility] Comment on above: Performed By: #### L 100.0100, L500.4050, L501.5200 ####[facility] [address] [place], [address] Eosinophil percentageOrdered By: [place] on 04-18-2025 Eosinophils/100 WBC (Bld) 5.3 % High 0-5 [facility] Erythrocyte distribution wid th ratioOrdered By: [place] on 04-18-2025 Erythrocyte distribution width (RBC) [Ratio] 13.2 % 11.6-14.6 [facility] Erythrocyte distribution wid th standard deviationOrdered By: [place] on 04-18-2025 Erythrocyte distribution width (RBC) [Ratio] 42.1 fl 35.1-43.9 [facility] Glomerular filtration rate ( GFR) estimation/1.73 sq m using serum, plasma, or whole bOrdered By: [place] on 04-18-2025 GFR/1.73 sq M.predicted among non-blacks MDRD (S/P/Bld) [Vol rate/Area] 79 mL/min/{1.73_m2} >60 [facility] Comment on above: mL/min/1.73m2 CKD-EP I Creatinine Equation (2020) Hematocrit Auto (Bld) [Volum e fraction]Ordered By: [facility] on 04-18-2025 Hematocrit (Bld) [Volume fraction] 35.4 % Low 37-47 [facility] Hemoglobin measurementOrdere d By: [place] on 04-18-2025 Hemoglobin (Bld) [Mass/Vol] 11.8 g/dL Low 12.0-15.0 [facility] Immature granulocytes/100 WB C Auto (Bld)Ordered By: [place] on 04-18-2025 Immature granulocytes/100 WBC (Bld) 0.600 % 0.0-0.9 [facility] Comment on above: IG% - Immature Granu locytes (promyelocytes, myelocytes and metamyelocytes) > 1% indicates that a LEFT SHIFT is Present. Laboratory - Chemistry and C hemistry - challengeOrdered By: [place] on 04-18-2025 AST [Catalytic activity/Vol] 25 U/L <32 [facility] MCV (mean corpuscular volume ) determinationOrdered By: [place] on 04-18-2025 MCV (RBC) [Entitic vol] 90.1 fL 81-99 [facility] Magnesiumon 04-18-2025 Magnesium [Mass/Vol] 2.0 mg/dL Normal 1.5-2.2 [facility] Comment on above: Performed By: #### L 100.0100, L500.4050, L501.5200 ####[facility] [address] [place], [address] Magnesium measurement (mass/ volume)Ordered By: [facility] on 04-18-2025 Magnesium (Unsp spec) [Mass/Vol] 2.0 mg/dL 1.5-2.2 [facility] Mean corpuscular hemoglobin (MCH) determinationOrdered By: [facility] on 04-18-2025 MCH (RBC) [Entitic mass] 30.0 pg 27.0-32.0 [facility] Mean corpuscular hemoglobin concentration (MCHC) determinationOrdered By: [facility] Senia on 04-18-2025 MCHC (RBC) [Mass/Vol] 33.3 g/dL 32-36 [facility] Mean platelet volume determi nationOrdered By: [facility] Senia on 04-18-2025 Platelet mean volume (Bld) [Entitic vol] 8.6 fL 6.2-12.0 [facility] Monocyte percentageOrdered B y: [place] on 04-18-2025 Monocytes/100 WBC (Bld) 13.4 % High 0-10 [facility] Neutrophil percentageOrdered By: [facility] Senia on 04-18-2025 Neutrophils/100 WBC (Bld) 49.7 % 47-70 [facility] Nucleated red blood cell per centageOrdered By: [facility] Senia on 04-18-2025 Nucleated RBC/100 WBC (Bld) [Ratio] 0 % 0-5 [facility] Oncology Visit Reporton 04-02 Oncology Visit Report [facility] [address] [place] [address] OFFICE VISIT Date of Service: 04/18/25928 MR#: [id number] Acct: [id number] Name: JESSIKA CARRILLO Rep #: [id number] : 1950 From: [place] MD Age/Sex: 74/F Location: [facility] Status: Signed HPI Subjective Date of Service 04/18/25 Chief Complaint Colon cancer on treatment History of Present Illness 74-year-old female with no family of colon cancer had screening colonoscopy August 17, [address] Boles at [place] with 2 sessile polypoid lesions were found, at 30 cm was positive for adenocarcinoma, the second lesion was at 50 cm no pathology was found. November 17, 2024 CT scan of the abdomen and pelvis showed a filling defect at the mid descending colon, none specific mesenteric lymph nodes, hypodense foci in the right and left hepatic lobes too small to characterize. Incidental findings were a right renal cyst and a 10 mm hypodense focus in the upper pole of the left kidney. Patient was then referred to [facility] for further management. December 31, 2024 MRI of the abdomen and pelvis: Benign cysts in the liver and kidney, ascending colonic mass with adjacent infiltrative or reactive inflammatory change with a mass abutting the inferior right lobe of liver without dividing the fat plane and right mesenteric lymphadenopathy. December 31, 2024 CT of the chest: 2 nonspecific pulmonary nodules in the left lung base measuring 6 mm and 3 mm. January 23, 2025 robotic right hemicolectomy at [facility] by Dr. Antonio. 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 Mismatch repair protein by IHC showed MLH1 absent/lost, PMS2 absent/lost, MSH2 present/intact, MSH6 present/intact. 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 No further testing was indicated. Treatment summary and response: January 23, 2025 robotic right hemicolectomy at [facility]. March 21, 2025 adjuvant modified FOLFOX 6 PFSH Medical History (Updated 04/18/25 @ 09:[address] [place] MD) Anemia Diarrhea due to drug Encounter for chemotherapy management Loss of hearing Wears glasses Post-menopausal Cancer Asthma History of pain when walking Encounter for education Regional lymph node metastasis present Degenerative joint disease Arthritis High cholesterol Migraine headache History of Meniere's disease Former smoker Hx of echocardiogram Hypertension Surgical History History of hysteroscopy History of colectomy History of total right knee replacement Hx of colonoscopy Family History Father Heart disease Aunt Breast cancer Social History Smoking Status: Former smoker Tobacco: How many years used: 5 alcohol intake: never substance use type: does not use ROS Constitutional Constitutional: Reports systems reviewed and no addt'l complaints, except as documented and other Details: able to do ADL independently ; Denies fatigue, fever(s) or weight loss Eyes Eyes: Reports systems reviewed and no addt'l complaints, except as documented ENT HEENT: Reports systems reviewed and no addt'l complaints, except as documented; Denies mouth lesions Cardiovascular Cardiovascular: Reports systems reviewed and no addt'l complaints, except as documented; Denies chest pain with activity or edema Respiratory/Chest Respiratory/Chest: Reports systems reviewed and no addt'l complaints, except as documented; Denies cough or dyspnea Gastrointestinal Gastrointestinal: Reports systems reviewed and no addt'l complaints, except as documented, diarrhea, nausea and other Details: Infrequent episodes of nausea, diarrhea is manageable with diet modification and Imodium ; Denies dysphagia, hematochezia or melena Genitourinary Genitourinary: Reports systems reviewed and no addt'l complaints, except as documented Musculoskeletal Musculoskeletal: Reports systems reviewed and no addt'l complaints, except as documented, arthralgias, back pain and other Details: Chronic ; Denies difficulty walking Integumentary Integumentary: Reports systems reviewed and no addt'l complaints, except as documented; Denies new lesions Neurologic Neurologic: Reports systems reviewed and no addt'l complaints, except as documented; Denies focal weakness or paresthe (more content not included)... Normal [facility] Platelet countOrdered By: Ru Conn on 04-18-2025 Platelets (Bld) [#/Vol] 216 10*3/uL 150-450 [facility] Potassium measurement (mass/ volume)Ordered By: [place] on 04-18-2025 Potassium (Unsp spec) [Mass/Vol] 3.9 mmol/L 3.3-5.1 [facility] RBC Auto (Bld) [#/Vol]Ordere d By: [place] on 04-18-2025 RBC (Bld) [#/Vol] 3.93 10*6/uL Low 4.2-5.4 [facility] Serum creatinine measurement (mass/volume)Ordered By: [place] on 04-18-2025 Creatinine [Mass/Vol] 0.78 mg/dL 0.70-1.20 [facility] Serum globulin measurementOr dered By: [place] on 04-18-2025 Globulin (S) [Mass/Vol] 2.8 g/dL 2.2-4.2 [facility] Serum glucose measurement (m ass/volume)Ordered By: [place] on 04-18-2025 Glucose [Mass/Vol] 135 mg/dL High 70-99 [facility] Serum or plasma alanine rojo otransferase (ALT) measurementOrdered By: [place] on 04-18-2025 ALT [Catalytic activity/Vol] 24 U/L <35 [facility] Serum or plasma albumin alfredo urement (mass/volume)Ordered By: [place] on 04-18-2025 Albumin [Mass/Vol] 3.6 g/dL 3.4-4.8 [facility] Serum or plasma albumin/glob ulin mass ratioOrdered By: [place] on 04-18-2025 Albumin/Globulin [Mass ratio] 1.3 {ratio} 0.9-2.4 [facility] Serum or plasma alkaline marisabel sphatase measurementOrdered By: [place] on 04-18-2025 ALP [Catalytic activity/Vol] 85 U/L 35-104 [facility] Serum or plasma calcium alfredo urement (mass/volume)Ordered By: [place] on 04-18-2025 Calcium [Mass/Vol] 9.4 mg/dL 7.6-11.0 [facility] Serum or plasma urea nitroge n measurement (mass/volume)Ordered By: [place] on 04-18-2025 Urea nitrogen [Mass/Vol] 14 mg/dL 4-19 [facility] Sodium levelOrdered By: Kurt mejia Senia on 04-18-2025 Sodium [Moles/Vol] 138 mmol/L 133-145 [facility] Total proteinOrdered By: Shady burroughs [place]ia on 04-18-2025 Protein [Mass/Vol] 6.4 g/dL 5.9-8.4 [facility] White blood cell (WBC) count Ordered By: [place] on 04-18-2025 WBC (Bld) [#/Vol] 5.3 10*3/uL 4.4-11.0 [facility] Absolute lymphocyte countOrd ered By: [facility] on 04-04-2025 Lymphocytes Auto (Unsp spec) [#/Vol] 1.69 10*3/uL 0.83-4.51 [facility] Absolute neutrophil countOrd ered By: [place] on 04-04-2025 Neutrophils (Bld) [#/Vol] 3.6 10*3/uL 2.0-7.7 [facility] Anion gap in Serum or Plasma Ordered By: Kurtjackie Conn on 04-04-2025 Anion gap [Moles/Vol] 10 mmol/L 5-15 [facility] Automated lymphocyte count a s percentage of total leukocytesOrdered By: Kurtjackie Conn on 04-04-2025 Lymphocytes/100 WBC Auto (Unsp spec) 27.5 % 19-41 [facility] BUN/creatinine ratioOrdered By: Kurtjackie Conn on 04-04-2025 Urea nitrogen/Creatinine [Mass ratio] 20.4 mg/mg High 10-20 [facility] Basophil percentageOrdered B y: Kurtjackie Conn on 04-04-2025 Basophils/100 WBC (Bld) 1.1 % High 0-1 [facility] Bilirubin, totalOrdered By: Kurtjackie Conn on 04-04-2025 Bilirubin [Mass/Vol] 0.21 mg/dL 0.00-1.30 [facility] CBC W/Diff, Automatedon Absolute Lymph 1.69 X10 3/uL Normal 0.83-4.51 [facility] Comment on above: Performed By: #### L 100.0100, L501.5200, L500.4050 ####[facility] [address] [place], [address] Absolute Neut 3.6 X10 3/uL Normal 2.0-7.7 [facility] Comment on above: Performed By: #### L 100.0100, L501.5200, L500.4050 ####[facility] [address] [place], [address] Basophils/100 WBC (Bld) 1.1 % High 0-1 [facility] Comment on above: Performed By: #### L 100.0100, L501.5200, L500.4050 ####[facility] [address] [place], [address] Eosinophils/100 WBC (Bld) 4.6 % Normal 0-5 [facility] Comment on above: Performed By: #### L 100.0100, L501.5200, L500.4050 ####[facility] [address] [place], [address] Erythrocyte distribution width (RBC) [Ratio] 12.7 % Normal 11.6-14.6 [facility] Comment on above: Performed By: #### L 100.0100, L501.5200, L500.4050 ####[facility] [address] [place], [address] Hematocrit (Bld) [Volume fraction] 37.5 % Normal 37-47 [facility] Comment on above: Performed By: #### L 100.0100, L501.5200, L500.4050 ####[facility] [address] [place], [address] Hemoglobin (Bld) [Mass/Vol] 12.2 g/dL Normal 12.0-15.0 [facility] Comment on above: Performed By: #### L 100.0100, L501.5200, L500.4050 ####[facility] [address] [place], [address] IG% 0.500 Normal 0.0-0.9 [facility] Comment on above: Result Comment: IG% - Immature Granulocytes (promyelocytes, myelocytes and metamyelocytes) > 1% indicates that a LEFT SHIFT is Present. Performed By: #### L 100.0100, L501.5200, L500.4050 ####[facility] [address] [place], [address] Lymphocytes/100 WBC (Bld) 27.5 % Normal 19-41 [facility] Comment on above: Performed By: #### L 100.0100, L501.5200, L500.4050 ####[facility] [address] [place], [address] MCH (RBC) [Entitic mass] 30.0 pg Normal 27.0-32.0 [facility] Comment on above: Performed By: #### L 100.0100, L501.5200, L500.4050 ####[facility] [address] [place], [address] MCHC (RBC) [Mass/Vol] 32.5 g/dL Normal 32-36 [facility] Comment on above: Performed By: #### L 100.0100, L501.5200, L500.4050 ####[facility] [address] [place], [address] MCV (RBC) [Entitic vol] 92.4 fL Normal 81-99 [facility] Comment on above: Performed By: #### L 100.0100, L501.5200, L500.4050 ####[facility] [address] [place], [address] Monocytes/100 WBC (Bld) 8.3 % Normal 0-10 [facility] Comment on above: Performed By: #### L 100.0100, L501.5200, L500.4050 ####[facility] [address] [place], [address] Neutrophils/100 WBC (Bld) 58.0 % Normal 47-70 [facility] Comment on above: Performed By: #### L 100.0100, L501.5200, L500.4050 ####[facility] [address] [place], [address] Nucleated RBC (Bld) [#/Vol] 0 10*3/uL Normal 0-5 [facility] Comment on above: Performed By: #### L 100.0100, L501.5200, L500.4050 ####[facility] [address] [place], [address] Platelet mean volume (Bld) [Entitic vol] 8.8 fL Normal 6.2-12.0 [facility] Comment on above: Performed By: #### L 100.0100, L501.5200, L500.4050 ####[facility] [address] [place], [address] Platelets (Bld) [#/Vol] 270 10*3/uL Normal 150-450 [facility] Comment on above: Performed By: #### L 100.0100, L501.5200, L500.4050 ####[facility] [address] [place], [address] RBC (Bld) [#/Vol] 4.06 10*6/uL Low 4.2-5.4 [facility] Comment on above: Performed By: #### L 100.0100, L501.5200, L500.4050 ####[facility] [address] [place], [address] RDW SD 42.2 fl Normal 35.1-43.9 [facility] Comment on above: Performed By: #### L 100.0100, L501.5200, L500.4050 ####[facility] [address] [place], [address] WBC (Bld) [#/Vol] 6.2 10*3/uL Normal 4.4-11.0 [facility] Comment on above: Performed By: #### L 100.0100, L501.5200, L500.4050 ####[facility] [address] [place], [address] Carbon dioxide, total [Moles /volume] in Central venous bloodOrdered By: [place] on 04-04-2025 CO2 [Moles/Vol] 25.8 mmol/L 21.0-32.0 [facility] Chloride assayOrdered By: Ru Conn on 04-04-2025 Chloride [Moles/Vol] 105 mmol/L 98-108 [facility] Comprehensive Metabolic Prof ilon 04-04-2025 Albumin [Mass/Vol] 3.7 g/dL Normal 3.4-4.8 [facility] Comment on above: Performed By: #### L 100.0100, L501.5200, L500.4050 ####[facility] [address] [place], [address] Albumin/Globulin [Mass ratio] 1.3 {ratio} Normal 0.9-2.4 [facility] Comment on above: Performed By: #### L 100.0100, L501.5200, L500.4050 ####[facility] [address] [place], [address] ALK PHOS 77 U/L Normal 35-104 [facility] Comment on above: Performed By: #### L 100.0100, L501.5200, L500.4050 ####[facility] [address] [place], [address] ALT [Catalytic activity/Vol] 26 U/L Normal <=34 [facility] Comment on above: Performed By: #### L 100.0100, L501.5200, L500.4050 ####[facility] [address] [place], [address] AST [Catalytic activity/Vol] 28 U/L Normal <=31 [facility] Comment on above: Performed By: #### L 100.0100, L501.5200, L500.4050 ####[facility] [address] [place], [address] Bilirubin [Mass/Vol] 0.21 mg/dL Normal 0.00-1.30 [facility] Comment on above: Performed By: #### L 100.0100, L501.5200, L500.4050 ####[facility] [address] [place], [address] BUN/CRE 20.4 RATIO High 10-20 [facility] Comment on above: Performed By: #### L 100.0100, L501.5200, L500.4050 ####[facility] [address] [place], [address] Calcium [Mass/Vol] 9.1 mg/dL Normal 7.6-11.0 [facility] Comment on above: Performed By: #### L 100.0100, L501.5200, L500.4050 ####[facility] [address] [place], [address] Chloride [Moles/Vol] 105 mmol/L Normal 98-108 [facility] Comment on above: Performed By: #### L 100.0100, L501.5200, L500.4050 ####[facility] [address] [place], [address] CO2 [Moles/Vol] 25.8 mmol/L Normal 21.0-32.0 [facility] Comment on above: Performed By: #### L 100.0100, L501.5200, L500.4050 ####[facility] [address] [place], [address] Creatinine [Mass/Vol] 0.68 mg/dL Low 0.70-1.20 [facility] Comment on above: Performed By: #### L 100.0100, L501.5200, L500.4050 ####[facility] [address] [place], [address] ECRCL 61.42 ml/min Normal 50-250 [facility] Comment on above: Performed By: #### L 100.0100, L501.5200, L500.4050 ####[facility] [address] [place], [address] GAP 10 Normal 5-15 [facility] Comment on above: Performed By: #### L 100.0100, L501.5200, L500.4050 ####[facility] [address] [place], [address] GFR/1.73 sq M.predicted among non-blacks MDRD (S/P/Bld) [Vol rate/Area] 91 mL/min/{1.73_m2} Normal >60 [facility] Comment on above: Result Comment: mL/m in/1.73m2 CKD-EPI Creatinine Equation (2020) Performed By: #### L 100.0100, L501.5200, L500.4050 ####[facility] [address] [place], [address] Globulin (S) [Mass/Vol] 2.8 g/dL Normal 2.2-4.2 [facility] Comment on above: Performed By: #### L 100.0100, L501.5200, L500.4050 ####[facility] [address] [place], [address] Glucose [Mass/Vol] 124 mg/dL High 70-99 [facility] Comment on above: Performed By: #### L 100.0100, L501.5200, L500.4050 ####[facility] [address] [place], [address] Potassium [Moles/Vol] 4.0 mmol/L Normal 3.3-5.1 [facility] Comment on above: Performed By: #### L 100.0100, L501.5200, L500.4050 ####[facility] [address] [place], [address] Sodium [Moles/Vol] 140 mmol/L Normal 133-145 [facility] Comment on above: Performed By: #### L 100.0100, L501.5200, L500.4050 ####[facility] [address] [place], [address] T PROT 6.6 g/dL Normal 5.9-8.4 [facility] Comment on above: Performed By: #### L 100.0100, L501.5200, L500.4050 ####[facility] [address] [place], [address] Urea nitrogen [Mass/Vol] 14 mg/dL Normal 4-19 [facility] Comment on above: Performed By: #### L 100.0100, L501.5200, L500.4050 ####[facility] [address] [place], [address] Eosinophil percentageOrdered By: [place] on 04-04-2025 Eosinophils/100 WBC (Bld) 4.6 % 0-5 [facility] Erythrocyte distribution wid th ratioOrdered By: [place] on 04-04-2025 Erythrocyte distribution width (RBC) [Ratio] 12.7 % 11.6-14.6 [facility] Erythrocyte distribution wid th standard deviationOrdered By: [facility] Conn on 04-04-2025 Erythrocyte distribution width (RBC) [Ratio] 42.2 fl 35.1-43.9 [facility] Glomerular filtration rate ( GFR) estimation/1.73 sq m using serum, plasma, or whole bOrdered By: [facility] Conn on 04-04-2025 GFR/1.73 sq M.predicted among non-blacks MDRD (S/P/Bld) [Vol rate/Area] 91 mL/min/{1.73_m2} >60 [facility] Comment on above: mL/min/1.73m2 CKD-EP I Creatinine Equation (2020) Hematocrit Auto (Bld) [Volum e fraction]Ordered By: [facility] Conn on 04-04-2025 Hematocrit (Bld) [Volume fraction] 37.5 % 37-47 [facility] Hemoglobin measurementOrdere d By: [facility] [place] on 04-04-2025 Hemoglobin (Bld) [Mass/Vol] 12.2 g/dL 12.0-15.0 [facility] Immature granulocytes/100 WB C Auto (Bld)Ordered By: [facility] Conn on 04-04-2025 Immature granulocytes/100 WBC (Bld) 0.500 % 0.0-0.9 [facility] Comment on above: IG% - Immature Granu locytes (promyelocytes, myelocytes and metamyelocytes) > 1% indicates that a LEFT SHIFT is Present. Laboratory - Chemistry and C hemistry - challengeOrdered By: [facility] Conn on 04-04-2025 AST [Catalytic activity/Vol] 28 U/L <32 [facility] MCV (mean corpuscular volume ) determinationOrdered By: [facility] on 04-04-2025 MCV (RBC) [Entitic vol] 92.4 fL 81-99 [facility] Magnesiumon 04-04-2025 Magnesium [Mass/Vol] 2.1 mg/dL Normal 1.5-2.2 [facility] Comment on above: Performed By: #### L 100.0100, L501.5200, L500.4050 ####[facility] [address] [place], [address] Magnesium measurement (mass/ volume)Ordered By: [place] on 04-04-2025 Magnesium (Unsp spec) [Mass/Vol] 2.1 mg/dL 1.5-2.2 [facility] Mean corpuscular hemoglobin (MCH) determinationOrdered By: [facility] Conn on 04-04-2025 MCH (RBC) [Entitic mass] 30.0 pg 27.0-32.0 [facility] Mean corpuscular hemoglobin concentration (MCHC) determinationOrdered By: [facility] Conn on 04-04-2025 MCHC (RBC) [Mass/Vol] 32.5 g/dL 32-36 [facility] Mean platelet volume determi nationOrdered By: [facility] Conn on 04-04-2025 Platelet mean volume (Bld) [Entitic vol] 8.8 fL 6.2-12.0 [facility] Monocyte percentageOrdered B y: [facility] [place] on 04-04-2025 Monocytes/100 WBC (Bld) 8.3 % 0-10 [facility] Neutrophil percentageOrdered By: [facility] [place] on 04-04-2025 Neutrophils/100 WBC (Bld) 58.0 % 47-70 [facility] Nucleated red blood cell per centageOrdered By: [facility] [place] on 04-04-2025 Nucleated RBC/100 WBC (Bld) [Ratio] 0 % 0-5 [facility] Oncology Visit Reporton Oncology Visit Report [facility] [place] [facility] [address] [place] [address] OFFICE VISIT Date of Service: 04/04/25 0814 MR#: [id number] Acct: [id number] Name: FITOJESSIKA Shannon Perry Rep #: [id number] : 1950 From: Alyssa Lynch NP [employer]ITY [employer]STRUCTURE ENGINEER -C Age/Sex: 74/F Location: [facility] Status: Signed HPI Subjective Date of Service 04/04/25 Chief Complaint Colon cancer on treatment History of Present Illness 74-year-old female with no family of colon cancer had screening colonoscopy August 17, [address] Boles at [place] with 2 sessile polypoid lesions were found, at 30 cm was positive for adenocarcinoma, the second lesion was at 50 cm no pathology was found. November 17, 2024 CT scan of the abdomen and pelvis showed a filling defect at the mid descending colon, none specific mesenteric lymph nodes, hypodense foci in the right and left hepatic lobes too small to characterize. Incidental findings were a right renal cyst and a 10 mm hypodense focus in the upper pole of the left kidney. Patient was then referred to [facility] for further management. December 31, 2024 MRI of the abdomen and pelvis: Benign cysts in the liver and kidney, ascending colonic mass with adjacent infiltrative or reactive inflammatory change with a mass abutting the inferior right lobe of liver without dividing the fat plane and right mesenteric lymphadenopathy. December 31, 2024 CT of the chest: 2 nonspecific pulmonary nodules in the left lung base measuring 6 mm and 3 mm. January 23, 2025 robotic right hemicolectomy at [facility] by Dr. Antonio. 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 Mismatch repair protein by IHC showed MLH1 absent/lost, PMS2 absent/lost, MSH2 present/intact, MSH6 present/intact. 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 No further testing was indicated. Treatment summary and response: January 23, 2025 robotic right hemicolectomy at [facility]. March 21, 2025- mFOLFOX Interval History The patient is presenting to clinic accompanied by adult daughter, Don for an evaluation anticipating she will begin cycle 2 adjuvant mFOLFOX. Experienced diarrhea on days 4 5, estimates 12 or more episodes each day. She did not use loperamide until the evening of day 5. Did force herself to drink electrolyte rich solutions. No numbness/tingling outside of cold exposure. Denies fever/chills, sweats, headaches, dizziness, mouth sores, rash, abd pain, N/V, swelling of her extremities. Appetite good, PO fluid intake estimated as 2 L of fluid each day. 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[employer]RASTRUCTURE ENGINEER-C) Diarrhea due to drug Encounter for chemotherapy management Loss of hearing Wears glasses Post-menopausal Cancer Asthma History of pain when walking Encounter for education Regional lymph node metastasis present Degenerative joint disease Arthritis High cholesterol Migraine headache History of Meniere's disease Former smoker Hx of echocardiogram Hypertension Surgical History History of hysteroscopy History of colectomy History of total right knee replacement Hx of colonoscopy Family History Father Heart disease Aunt Breast cancer Social History Smoking Status: Former smoker Tobacco: How many years used: 5 alcohol intake: never substance use type: does not use ROS ROS Narrative Negative except as documented in the interval HPI Intake Vital Signs 03/15/25 08:10 04/04/25 08:16 Height 5 ft 2 in 5 ft 2 in Weight: 187 lb 4 oz BMI 34.2 BP 133/83 H Blood Pressure Location Rt brachial Position Sitting Respiration 16 Pulse 64 Pulse Source Monitor Temp 98.2 F Temperature Source Temporal Artery Pulse Oximetry (%) 97 Oxygen Delivery Method room air Intake Allergies No Known Allergies Allergy (Verified 04/04/25 08:19) Medications ???Medication ???Instructions ???Recorded ???Confirmed ???Type lisinopril 20 1 tab PO DAILY 03/18/21 04/04/25 H istory mg-hydrochlorothiazide 25 mg tablet metoprolol tartrate 50 mg tablet 50 mg PO DAILY 03/18/21 04/04/25 H istory multivitamin 1 tab PO QDAY 03/06/25 04/04/25 Hi story turmeric 400 mg capsule 400 mg PO DAILY 03/06/25 04/04/25 History lidocaine-prilocain (more content not included)... Normal [facility] Platelet countOrdered By: Ru Conn on 04-04-2025 Platelets (Bld) [#/Vol] 270 10*3/uL 150-450 [facility] Potassium measurement (mass/ volume)Ordered By: [place] on 04-04-2025 Potassium (Unsp spec) [Mass/Vol] 4.0 mmol/L 3.3-5.1 [facility] RBC Auto (Bld) [#/Vol]Ordere d By: [place] on 04-04-2025 RBC (Bld) [#/Vol] 4.06 10*6/uL Low 4.2-5.4 [facility] Serum creatinine measurement (mass/volume)Ordered By: [place] on 04-04-2025 Creatinine [Mass/Vol] 0.68 mg/dL Low 0.70-1.20 [facility] Serum globulin measurementOr dered By: [place] on 04-04-2025 Globulin (S) [Mass/Vol] 2.8 g/dL 2.2-4.2 [facility] Serum glucose measurement (m ass/volume)Ordered By: [place] on 04-04-2025 Glucose [Mass/Vol] 124 mg/dL High 70-99 [facility] Serum or plasma alanine rojo otransferase (ALT) measurementOrdered By: [place] on 04-04-2025 ALT [Catalytic activity/Vol] 26 U/L <35 [facility] Serum or plasma albumin alfredo urement (mass/volume)Ordered By: [place] on 04-04-2025 Albumin [Mass/Vol] 3.7 g/dL 3.4-4.8 [facility] Serum or plasma albumin/glob ulin mass ratioOrdered By: [place] on 04-04-2025 Albumin/Globulin [Mass ratio] 1.3 {ratio} 0.9-2.4 [facility] Serum or plasma alkaline marisabel sphatase measurementOrdered By: [place] on 04-04-2025 ALP [Catalytic activity/Vol] 77 U/L 35-104 [facility] Serum or plasma calcium alfredo urement (mass/volume)Ordered By: [place] on 04-04-2025 Calcium [Mass/Vol] 9.1 mg/dL 7.6-11.0 [facility] Serum or plasma urea nitroge n measurement (mass/volume)Ordered By: [place] on 04-04-2025 Urea nitrogen [Mass/Vol] 14 mg/dL 4-19 [facility] Sodium levelOrdered By: Kurt mejia Senia on 04-04-2025 Sodium [Moles/Vol] 140 mmol/L 133-145 [facility] Total proteinOrdered By: Shady burroughs Senia on 04-04-2025 Protein [Mass/Vol] 6.6 g/dL 5.9-8.4 [facility] White blood cell (WBC) count Ordered By: New Senia on 04-04-2025 WBC (Bld) [#/Vol] 6.2 10*3/uL 4.4-11.0 [facility] Carcinoembryonic Antigenon 0 03-22-2025 CEA 5.5 ng/mL High 0.0-4.7 [facility] Comment on above: Order Comment: ADD O N FROM EARLIER TODAY, THANKS Result Comment: Nons mokers <3.9 Smokers <5.6 [facility] Electrochemiluminescence Immunoassay (ECLIA) Values obtained with different assay methods or kits cannot be used interchangeably. Results cannot be interpreted as absolute evidence of the presence or absence of malignant disease. Performed at: [facility] [employer] [id number] Agricultural Technician: Abimael Sheridan PhD, Phone: [phone] Performed By: #### L [id number] #### [facility] [address] [place], [address] Absolute lymphocyte countOrd ered By: Kurtjackie Conn on 03-21-2025 Lymphocytes Auto (Unsp spec) [#/Vol] 2.00 10*3/uL 0.83-4.51 [facility] Absolute neutrophil countOrd ered By: uKrtjackie Conn on 03-21-2025 Neutrophils (Bld) [#/Vol] 4.1 10*3/uL 2.0-7.7 [facility] Anion gap in Serum or Plasma Ordered By: [place] on 03-21-2025 Anion gap [Moles/Vol] 10 mmol/L 5-15 [facility] Automated lymphocyte count a s percentage of total leukocytesOrdered By: [place] on 03-21-2025 Lymphocytes/100 WBC Auto (Unsp spec) 28.7 % - [facility] BUN/creatinine ratioOrdered By: [place] on 03-21-2025 Urea nitrogen/Creatinine [Mass ratio] 24.4 mg/mg High - [facility] Basophil percentageOrdered B y: [place] on 03-21-2025 Basophils/100 WBC (Bld) 0.7 % 0- [facility] Bilirubin, totalOrdered By: [place] on 03-21-2025 Bilirubin [Mass/Vol] 0.23 mg/dL 0.00-1.30 [facility] CBC W/Diff, Automatedon 03-03 Absolute Lymph 2.00 X10 3/uL Normal 0.83-4.51 [facility] Comment on above: Performed By: #### L 100.0100, L500.4050, L501.5200 ####[facility] [address] [place], [address] Absolute Neut 4.1 X10 3/uL Normal 2.0-7.7 [facility] Comment on above: Performed By: #### L 100.0100, L500.4050, L501.5200 ####[facility] [address] [place], [address] Basophils/100 WBC (Bld) 0.7 % Normal 0-1 [facility] Comment on above: Performed By: #### L 100.0100, L500.4050, L501.5200 ####[facility] [address] [place], [address] Eosinophils/100 WBC (Bld) 3.4 % Normal 0-5 [facility] Comment on above: Performed By: #### L 100.0100, L500.4050, L501.5200 ####[facility] [address] [place], [address] Erythrocyte distribution width (RBC) [Ratio] 12.6 % Normal 11.6-14.6 [facility] Comment on above: Performed By: #### L 100.0100, L500.4050, L501.5200 ####[facility] [address] [place], [address] Hematocrit (Bld) [Volume fraction] 37.7 % Normal 37-47 [facility] Comment on above: Performed By: #### L 100.0100, L500.4050, L501.5200 ####[facility] [address] [place], [address] Hemoglobin (Bld) [Mass/Vol] 12.2 g/dL Normal 12.0-15.0 [facility] Comment on above: Performed By: #### L 100.0100, L500.4050, L501.5200 ####[facility] [address] [place], [address] IG% 0.400 Normal 0.0-0.9 [facility] Comment on above: Result Comment: IG% - Immature Granulocytes (promyelocytes, myelocytes and metamyelocytes) > 1% indicates that a LEFT SHIFT is Present. Performed By: #### L 100.0100, L500.4050, L501.5200 ####[facility] [address] [place], [address] Lymphocytes/100 WBC (Bld) 28.7 % Normal 19-41 [facility] Comment on above: Performed By: #### L 100.0100, L500.4050, L501.5200 ####[facility] [address] [place], [address] MCH (RBC) [Entitic mass] 29.9 pg Normal 27.0-32.0 [facility] Comment on above: Performed By: #### L 100.0100, L500.4050, L501.5200 ####[facility] [address] [place], [address] MCHC (RBC) [Mass/Vol] 32.4 g/dL Normal 32-36 [facility] Comment on above: Performed By: #### L 100.0100, L500.4050, L501.5200 ####[facility] [address] [place], [address] MCV (RBC) [Entitic vol] 92.4 fL Normal 81-99 [facility] Comment on above: Performed By: #### L 100.0100, L500.4050, L501.5200 ####[facility] [address] [place], [address] Monocytes/100 WBC (Bld) 7.9 % Normal 0-10 [facility] Comment on above: Performed By: #### L 100.0100, L500.4050, L501.5200 ####[facility] [address] [place], [address] Neutrophils/100 WBC (Bld) 58.9 % Normal 47-70 [facility] Comment on above: Performed By: #### L 100.0100, L500.4050, L501.5200 ####[facility] [address] [place], [address] Nucleated RBC (Bld) [#/Vol] 0 10*3/uL Normal 0-5 [facility] Comment on above: Performed By: #### L 100.0100, L500.4050, L501.5200 ####[facility] [address] [place], [address] Platelet mean volume (Bld) [Entitic vol] 9.4 fL Normal 6.2-12.0 [facility] Comment on above: Performed By: #### L 100.0100, L500.4050, L501.5200 ####[facility] [address] [place], [address] Platelets (Bld) [#/Vol] 326 10*3/uL Normal 150-450 [facility] Comment on above: Performed By: #### L 100.0100, L500.4050, L501.5200 ####[facility] [address] [place], [address] RBC (Bld) [#/Vol] 4.08 10*6/uL Low 4.2-5.4 [facility] Comment on above: Performed By: #### L 100.0100, L500.4050, L501.5200 ####[facility] [address] [place], [address] RDW SD 42.9 fl Normal 35.1-43.9 [facility] Comment on above: Performed By: #### L 100.0100, L500.4050, L501.5200 ####[facility] [address] [place], [address] WBC (Bld) [#/Vol] 7.0 10*3/uL Normal 4.4-11.0 [facility] Comment on above: Performed By: #### L 100.0100, L500.4050, L501.5200 ####[facility] [address] [place], [address] Carbon dioxide, total [Moles /volume] in Central venous bloodOrdered By: [place] on 03-21-2025 CO2 [Moles/Vol] 24.6 mmol/L 21.0-32.0 [facility] Chloride assayOrdered By: Ru Conn on 03-21-2025 Chloride [Moles/Vol] 105 mmol/L 98-108 [facility] Comprehensive Metabolic Prof ilon 03-21-2025 Albumin [Mass/Vol] 3.7 g/dL Normal 3.4-4.8 [facility] Comment on above: Performed By: #### L 100.0100, L500.4050, L501.5200 ####[facility] [address] [place], [address] Albumin/Globulin [Mass ratio] 1.2 {ratio} Normal 0.9-2.4 [facility] Comment on above: Performed By: #### L 100.0100, L500.4050, L501.5200 ####[facility] [address] [place], [address] ALK PHOS 63 U/L Normal 35-104 [facility] Comment on above: Performed By: #### L 100.0100, L500.4050, L501.5200 ####[facility] [address] [place], [address] ALT [Catalytic activity/Vol] 18 U/L Normal <=34 [facility] Comment on above: Performed By: #### L 100.0100, L500.4050, L501.5200 ####[facility] [address] [place], [address] AST [Catalytic activity/Vol] 24 U/L Normal <=31 [facility] Comment on above: Performed By: #### L 100.0100, L500.4050, L501.5200 ####[facility] [address] [place], [address] Bilirubin [Mass/Vol] 0.23 mg/dL Normal 0.00-1.30 [facility] Comment on above: Performed By: #### L 100.0100, L500.4050, L501.5200 ####[facility] [address] [place], [address] BUN/CRE 24.4 RATIO High 10-20 [facility] Comment on above: Performed By: #### L 100.0100, L500.4050, L501.5200 ####[facility] [address] [place], [address] Calcium [Mass/Vol] 9.0 mg/dL Normal 7.6-11.0 [facility] Comment on above: Performed By: #### L 100.0100, L500.4050, L501.5200 ####[facility] [address] [place], [address] Chloride [Moles/Vol] 105 mmol/L Normal 98-108 [facility] Comment on above: Performed By: #### L 100.0100, L500.4050, L501.5200 ####[facility] [address] [place], [address] CO2 [Moles/Vol] 24.6 mmol/L Normal 21.0-32.0 [facility] Comment on above: Performed By: #### L 100.0100, L500.4050, L501.5200 ####[facility] [address] [place], [address] Creatinine [Mass/Vol] 0.77 mg/dL Normal 0.70-1.20 [facility] Comment on above: Performed By: #### L 100.0100, L500.4050, L501.5200 ####[facility] [address] [place], [address] ECRCL 61.90 ml/min Normal 50-250 [facility] Comment on above: Performed By: #### L 100.0100, L500.4050, L501.5200 ####[facility] [address] [place], [address] GAP 10 Normal 5-15 [facility] Comment on above: Performed By: #### L 100.0100, L500.4050, L501.5200 ####[facility] [address] [place], [address] GFR/1.73 sq M.predicted among non-blacks MDRD (S/P/Bld) [Vol rate/Area] 81 mL/min/{1.73_m2} Normal >60 [facility] Comment on above: Result Comment: mL/m in/1.73m2 CKD-EPI Creatinine Equation (2020) Performed By: #### L 100.0100, L500.4050, L501.5200 ####[facility] [address] [place], [address] Globulin (S) [Mass/Vol] 3.0 g/dL Normal 2.2-4.2 [facility] Comment on above: Performed By: #### L 100.0100, L500.4050, L501.5200 ####[facility] [address] [place], [address] Glucose [Mass/Vol] 124 mg/dL High 70-99 [facility] Comment on above: Performed By: #### L 100.0100, L500.4050, L501.5200 ####[facility] [address] [place], [address] Potassium [Moles/Vol] 3.8 mmol/L Normal 3.3-5.1 [facility] Comment on above: Performed By: #### L 100.0100, L500.4050, L501.5200 ####[facility] [address] [place], [address] Sodium [Moles/Vol] 139 mmol/L Normal 133-145 [facility] Comment on above: Performed By: #### L 100.0100, L500.4050, L501.5200 ####[facility] [address] [place], [address] T PROT 6.6 g/dL Normal 5.9-8.4 [facility] Comment on above: Performed By: #### L 100.0100, L500.4050, L501.5200 ####[facility] [address] [place], [address] Urea nitrogen [Mass/Vol] 19 mg/dL Normal 4-19 [facility] Comment on above: Performed By: #### L 100.0100, L500.4050, L501.5200 ####[facility] [address] [place], [address] Eosinophil percentageOrdered By: [place] on 03-21-2025 Eosinophils/100 WBC (Bld) 3.4 % 0-5 [facility] Erythrocyte distribution wid th ratioOrdered By: [facility] on 03-21-2025 Erythrocyte distribution width (RBC) [Ratio] 12.6 % 11.6-14.6 [facility] Erythrocyte distribution wid th standard deviationOrdered By: [place] on 03-21-2025 Erythrocyte distribution width (RBC) [Ratio] 42.9 fl 35.1-43.9 [facility] Glomerular filtration rate ( GFR) estimation/1.73 sq m using serum, plasma, or whole bOrdered By: [place] on 03-21-2025 GFR/1.73 sq M.predicted among non-blacks MDRD (S/P/Bld) [Vol rate/Area] 81 mL/min/{1.73_m2} >60 [facility] Comment on above: mL/min/1.73m2 CKD-EP I Creatinine Equation (2020) Hematocrit Auto (Bld) [Volum e fraction]Ordered By: [facility] on 03-21-2025 Hematocrit (Bld) [Volume fraction] 37.7 % 37-47 [facility] Hemoglobin measurementOrdere d By: [place] on 03-21-2025 Hemoglobin (Bld) [Mass/Vol] 12.2 g/dL 12.0-15.0 [facility] Immature granulocytes/100 WB C Auto (Bld)Ordered By: [place] on 03-21-2025 Immature granulocytes/100 WBC (Bld) 0.400 % 0.0-0.9 [facility] Comment on above: IG% - Immature Granu locytes (promyelocytes, myelocytes and metamyelocytes) > 1% indicates that a LEFT SHIFT is Present. Laboratory - Chemistry and C hemistry - challengeOrdered By: [place] on 03-21-2025 AST [Catalytic activity/Vol] 24 U/L <32 [facility] MCV (mean corpuscular volume ) determinationOrdered By: [place] on 03-21-2025 MCV (RBC) [Entitic vol] 92.4 fL 81-99 [facility] Magnesiumon 03-21-2025 Magnesium [Mass/Vol] 2.1 mg/dL Normal 1.5-2.2 [facility] Comment on above: Performed By: #### L 100.0100, L500.4050, L501.5200 ####[facility] [address] [place], [place], [id number] Magnesium measurement (mass/ volume)Ordered By: [place] on 03-21-2025 Magnesium (Unsp spec) [Mass/Vol] 2.1 mg/dL 1.5-2.2 [facility] Mean corpuscular hemoglobin (MCH) determinationOrdered By: [place] on 03-21-2025 MCH (RBC) [Entitic mass] 29.9 pg 27.0-32.0 [facility] Mean corpuscular hemoglobin concentration (MCHC) determinationOrdered By: [place] on 03-21-2025 MCHC (RBC) [Mass/Vol] 32.4 g/dL 32-36 [facility] Mean platelet volume determi nationOrdered By: [place] on 03-21-2025 Platelet mean volume (Bld) [Entitic vol] 9.4 fL 6.2-12.0 [facility] Monocyte percentageOrdered B y: [place] on 03-21-2025 Monocytes/100 WBC (Bld) 7.9 % 0-10 [facility] Neutrophil percentageOrdered By: [facility] on 03-21-2025 Neutrophils/100 WBC (Bld) 58.9 % 47-70 [facility] Nucleated red blood cell per centageOrdered By: [facility] Conn on 03-21-2025 Nucleated RBC/100 WBC (Bld) [Ratio] 0 % 0-5 [facility] Oncology Visit Reporton 03-03 Oncology Visit Report [facility] [address] [place] [address] OFFICE VISIT Date of Service: 03/21/25 0800 MR#: [id number] Acct: [id number] Name: JESSIKA CARRILLO Rep #: [id number] : 1950 From: Alyssa Lynch NP SECURITY INFRASTRUCTURE ENGINEER -C Age/Sex: 74/F Location: [facility] Status: Signed HPI Subjective Date of Service 03/21/25 Chief Complaint Colon cancer History of Present Illness 74-year-old female with no family of colon cancer had screening colonoscopy August 17, [address] Boles at [place] with 2 sessile polypoid lesions were found, at 30 cm was positive for adenocarcinoma, the second lesion was at 50 cm no pathology was found. November 17, 2024 CT scan of the abdomen and pelvis showed a filling defect at the mid descending colon, none specific mesenteric lymph nodes, hypodense foci in the right and left hepatic lobes too small to characterize. Incidental findings were a right renal cyst and a 10 mm hypodense focus in the upper pole of the left kidney. Patient was then referred to [facility] for further management. December 31, 2024 MRI of the abdomen and pelvis: Benign cysts in the liver and kidney, ascending colonic mass with adjacent infiltrative or reactive inflammatory change with a mass abutting the inferior right lobe of liver without dividing the fat plane and right mesenteric lymphadenopathy. December 31, 2024 CT of the chest: 2 nonspecific pulmonary nodules in the left lung base measuring 6 mm and 3 mm. January 23, 2025 robotic right hemicolectomy at [facility] by Dr. Antonio. 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 Mismatch repair protein by IHC showed MLH1 absent/lost, PMS2 absent/lost, MSH2 present/intact, MSH6 present/intact. 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 No further testing was indicated. Treatment summary and response: January 23, 2025 robotic right hemicolectomy at [facility]. March 21, 2025- mFOLFOX Interval History The patient is presenting to clinic accompanied by adult daughter, Don for an evaluation anticipating she will begin adjuvant mFOLFOX. No diarrhea. LBM 03/21/25. Reports active lifestyle and good support system by way of daughters. [facility] Medical History (Updated 03/21/25 @ 08:45 by Alyssa Lynch SECURITY INFRASTRUCTURE ENGINEER, SECURITY INFRASTRUCTURE ENGINEER-C) Encounter for chemotherapy management Loss of hearing Wears glasses Post-menopausal Cancer Asthma History of pain when walking Encounter for education Regional lymph node metastasis present Degenerative joint disease Arthritis High cholesterol Migraine headache History of Meniere's disease Former smoker Hx of echocardiogram Hypertension Surgical History History of hysteroscopy History of colectomy History of total right knee replacement Hx of colonoscopy Family History Father Heart disease Aunt Breast cancer Social History Smoking Status: Former smoker Tobacco: How many years used: 5 alcohol intake: never substance use type: does not use ROS ROS Narrative Negative except as documented in the interval HPI Intake Vital Signs 03/15/25 08:10 03/21/25 08:02 03/21/25 08:05 Height 5 ft 2 in 5 ft 2 in 5 ft 2 in Weight: 190 lb BMI 34.7 BP 158/88 H Blood Pressure Location Lt brachial Position Sitting Respiration 16 Pulse 60 Pulse Source Monitor Temp 98.2 F Temperature Source Temporal Artery Pulse Oximetry (%) 98 Oxygen Delivery Method room air Intake Is patient in pain?: No Allergies No Known Allergies Allergy (Verified 03/21/25 08:04) Medications ???Medication ???Instructions ???Recorded ???Confirmed ???Type lisinopril 20 1 tab PO DAILY 03/18/21 03/21/25 H istory mg-hydrochlorothiazide 25 mg tablet metoprolol tartrate 50 mg tablet 50 mg PO DAILY 03/18/21 03/21/25 H istory multivitamin 1 tab PO QDAY 03/06/25 03/21/25 Hi story turmeric 400 mg capsule 400 mg PO DAILY 03/06/25 03/21/25 History lidocaine-prilocaine 2.5 %-2.5 % 1 applic topical ONCE PRN port 03/21/25 Rx topical cream access 30 days #30 grams ondansetron 8 mg disintegrating 8 mg PO Q8H PRN nausea and 5 03/21/25 Rx tablet vomiting #30 tabs prochlorperazine maleate 10 mg 10 mg PO Q6H PRN nausea and 03/21/25 Rx tablet (more content not included)... Normal [facility] Platelet countOrdered By: Ru Conn on 03-21-2025 Platelets (Bld) [#/Vol] 326 10*3/uL 150-450 [facility] Potassium measurement (mass/ volume)Ordered By: [place] on 03-21-2025 Potassium (Unsp spec) [Mass/Vol] 3.8 mmol/L 3.3-5.1 [facility] RBC Auto (Bld) [#/Vol]Ordere d By: [place] on 03-21-2025 RBC (Bld) [#/Vol] 4.08 10*6/uL Low 4.2-5.4 [facility] Serum creatinine measurement (mass/volume)Ordered By: [place] on 03-21-2025 Creatinine [Mass/Vol] 0.77 mg/dL 0.70-1.20 [facility] Serum globulin measurementOr dered By: [place] on 03-21-2025 Globulin (S) [Mass/Vol] 3.0 g/dL 2.2-4.2 [facility] Serum glucose measurement (m ass/volume)Ordered By: [place] on 03-21-2025 Glucose [Mass/Vol] 124 mg/dL High 70-99 [facility] Serum or plasma alanine rojo otransferase (ALT) measurementOrdered By: [place] on 03-21-2025 ALT [Catalytic activity/Vol] 18 U/L <35 [facility] Serum or plasma albumin alfredo urement (mass/volume)Ordered By: [place] on 03-21-2025 Albumin [Mass/Vol] 3.7 g/dL 3.4-4.8 [facility] Serum or plasma albumin/glob ulin mass ratioOrdered By: [place] on 03-21-2025 Albumin/Globulin [Mass ratio] 1.2 {ratio} 0.9-2.4 [facility] Serum or plasma alkaline marisabel sphatase measurementOrdered By: [place] on 03-21-2025 ALP [Catalytic activity/Vol] 63 U/L 35-104 [facility] Serum or plasma calcium alfredo urement (mass/volume)Ordered By: [place] on 03-21-2025 Calcium [Mass/Vol] 9.0 mg/dL 7.6-11.0 [facility] Serum or plasma carcinoembry onic antigen measurement (mass/volume)Ordered By: Alyssa Lynch on 03-21-2025 Carcinoembryonic Ag [Mass/Vol] 5.5 ng/mL High 0.0-4.7 [facility] Comment on above: Nonsmokers <3.9 Smok ers <5.6[facility] Electrochemiluminescence Immunoassay(ECLIA)Values obtained with different assay methods or kitscannot be used interchangeably. Results cannot beinterpreted as absolute evidence of the presence orabsence of malignant disease.Performed at: [employer] [id number] Director: Abimael Sheridan PhD, Phone: [phone] Serum or plasma urea nitroge n measurement (mass/volume)Ordered By: [place] on 03-21-2025 Urea nitrogen [Mass/Vol] 19 mg/dL 4-19 [facility] Sodium levelOrdered By: Kurt Conn on 03-21-2025 Sodium [Moles/Vol] 139 mmol/L 133-145 [facility] Total proteinOrdered By: Shady Conn on 03-21-2025 Protein [Mass/Vol] 6.6 g/dL 5.9-8.4 [facility] White blood cell (WBC) count Ordered By: [place] on 03-21-2025 WBC (Bld) [#/Vol] 7.0 10*3/uL 4.4-11.0 [facility] CXR for Line Placementon CXR for Line Placement [facility] Services [address] [place] [address] CXR for Line Placement MR#: [id number] Acct: [id number] Name: JESSIKA CARRILLO Rep #: [id number] : 1950 F 74 From: Russell Greco MD PCP: JUVENTINO Pérez [place] [facility] [place]: CXR for Line Placement Date of Exam: 03/20/25 Exam# [id number] Ordering Dr: Michael Gaines MD PROCEDURE: CXR FOR LINE PLACEMENT 03/20/2025 REASON FOR EXAM: NEW PORT PLACEMENT TECHNIQUE: Single AP upright view of the chest COMPARISON: November 17, 2024 FINDINGS: Heart normal size. New left central venous port in good position terminating in the superior vena cava. No infiltrates. No pleural effusions. No pneumothorax. Osseous structures grossly appear intact. RAD/CXR for Line Placement IMPRESSION: 1. New left central venous port in good position terminating in superior vena cava. 2. No infiltrates. 3. No pneumothorax. Reading [facility] CC: Dr. Michael Gaines MD; JUVENTINO Pérez Lace Inspector: Signed Normal [facility] Discharge Instructionon 03-02 Discharge Instruction [facility] Medical Records Department [address] [place] [address] Instructions for Home/Discharge Instructions 03/20/25 1316 MR#: [id number] Acct: [id number] Name: JESSIKA CARRILLO Rep #: [id number] : 1950 74 From: Michael Gaines MD PCP: JUVENTINO Pérez [place] [place]charge Instructions Diet Discharge Diet: Light diet - advance as tolerated Activity Discharge Activity: May Shower May shower in (days): 2 Ice area for (Minutes): 30 Dressing / Incision Call your doctor if your incision/area has: Continuous Slow Oozing, Sudden Increased Bleeding, Increased Pain/ Swelling, Increased Redness, Foul Smelling Discharge and Swelling at the incision site Call your doctor if you observe: Fever of 101 or Higher Cleanse incision/area with: Soap Water Follow Up Care Please Follow Up With: Michael Gaines MD When: as needed Test Results: Test results from this visit will be discussed in further detail at your follow-up appointment, if applicable. Discharge Plan Admission Primary Reason for Your Visit: Mediport placement Attending Provider: Michael Gaines Primary Care Provider: Shu Chow Instructions Print Language: [place] African Discharge Orders/Prescriptions Prescriptions: New oxycodone-acetaminophen [Percocet] 5-325 mg tablet 1 tab PO Q8H PRN (Reason: pain) 3 Days Qty: 5 0RF Continued multivitamin Tablet 1 tab PO QDAY turmeric 400 mg capsule 400 mg PO DAILY lidocaine-prilocaine 2.5-2.5 % cream 1 applic topical ONCE PRN (Reason: port access) 30 Days Qty: 30 2RF ondansetron 8 mg tablet,disintegrating 8 mg PO Q8H PRN (Reason: nausea and vomiting) Qty: 30 2RF prochlorperazine maleate 10 mg tablet 10 mg PO Q6H PRN (Reason: nausea and vomiting) Qty: 30 2RF metoprolol tartrate 50 mg Tablet 50 mg PO DAILY lisinopril-hydrochlorothia zide 20-25 mg Tablet 1 tab PO DAILY Referrals / Follow Up: Shu Chow PA [Primary Care Provider] - Disposition Disposition (needs filled in before D/C Order can be placed): Home, Self Care 03/20/25 1320 Michael Gaines MD CC: JUVENTINO Pérez Signed Normal [facility] MR/POSTOP.[facility] 03-20-2025 MR/POSTOP.[facility] Medical Records Department [address] [place] [address] Anesthesia Postop Eval I 03/20/25 1317 MR#: [id number] Acct: [id number] Name: JESSIKA CARRILLO Rep #: [id number] : 1950 74 From: Ora Perez CRNA PCP: JUVENTINO Pérez Status:REG [facility] Y Race: C Location: [place] [address] Anesthesia: Postop Eval I Current Vital Signs Temperature: 97.9 F Pulse Rate: 54 Blood Pressure: 124/52 Respiratory Rate: 14 Pulse Ox: 97 Oxygen Delivery Method: Room Air Assessment Airway patent: Yes Spontaneous unlabored respirations: Yes Mental status: Awake nausea: No Vomiting: No Anesthesia Complication: No Fluid Hydration Crystalloid volume administer (ml): 500 Total IV fluid infused: 500 Progress Note Anesthesia document: Postop Eval 1 completed: Yes 03/20/25 1318 Date Ora Perez GANG PUNCH OPERATOR Cosigner Signature: Date CC: Signed Normal [facility] MR/PURQKQRX5nd 03-20-2025 [facility] Medical Records Department [address] [place] [address] Anesthesia Postop Eval II 03/20/25 1424 MR#: [id number] Acct: [id number] Name: JESSIKA CARRILLO Rep #: [id number] : 1950 74 From: Josue Ceballos MD PCP: JUVENTINO Pérez [place] [place] Race: C Location: [place] [address] Anesthesia Postop Eval I Sum Postop Eval Completion status Anesthesia document: Postop Eval 1 completed: Yes Anesthesia Postop Eval I Summary Anesthesia Postop Eval I Summary: Anesthesia Postop Eval I: Assessment Summary Airway patent Yes 03/20/25 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 Spontaneous unlabored Yes 03/20/25 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 respirations Mental status Awake 03/20/25 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 nausea No 03/20/25 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 Vomiting No 03/20/25 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 Anesthesia Postop Eval I: Fluid Summary Crystalloid volume administer 500 03/20/25 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 (ml) Colloids volume administered ( ml) Blood Product volume administered (ml) Total IV fluid infused 500 03/20/25 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 Anesthesia Postop Eval I: Summary Notes Anesthesia Complication No 03/20/25 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 Anesthesia Complication Comment: Post-operative progress note Anesthesia: Postop Eval II Evaluation Mental status: Awake Pain Level: 0 nausea: No Vomiting: No 03/20/25 1424 Date Josue Smyth Signature: Date CC: Signed Normal [facility] Operative Reporton 5 Operative Report [facility] Medical Records Department [address] [place] [address] Operative Report 03/20/25 1321 MR#: [id number] Acct: [id number] Name: JESSIKA CARRILLO Rep #: [id number] : 1950 74 From: Michael Gaines MD PCP: JUVENTINO Pérez Status:[facility] Location: [place] [address] Problems Associated Problem List Diagnoses (1) Colon cancer: Procedures Cardiovascular CF Procedures [id number]-39xxx: [id number] Insert tunneled cv cath Operative Report (Standard) Operative Information Date of Procedure: 03/20/25 Pre-Operative Diagnosis: Colon cancer Post-Operative Diagnosis: Colon cancer Surgery/Procedure Performed: Left subclavian Mediport placement with C arm retail receiving clerk: No Type of Anesthesia: Local and MAC RN Documented Start/Stop Times: Operation Date: 03/20/25 12:30 Case Time Into Pre-Op 03/20/25 11:17 Out of Pre-Op 03/20/25 12:24 Anesthesia Start 03/20/25 12:27 Into Room 03/20/25 12:27 Procedure Start 03/20/25 12:43 Procedure End 03/20/25 13:08 Anesthesia End 03/20/25 13:11 Out of Room 03/20/25 13:11 Into Recovery 03/20/25 13:15 Procedure Start Time: 12:43 Procedure Stop Time: 13:08 Select all DRAINS/GRAFTS/IMPLANTS that apply: Implanted device Implanted device details: PowerPort injectable Mediport Special Medications: 2 g Ancef IV preop Estimated Blood Loss: 5 mL Specimen collected: No Description of surgery: The patient is a 74-year-old female who was recently seen in the office with a new diagnosis of colon cancer. She has undergone surgery and her treating oncology team is recommending chemotherapy. As a result she presents for placement of a Mediport. In the office we discussed the details of the planned procedure as well as risks benefits and alternatives. She wishes to proceed. The patient was brought to the operating today following informed consent. Preoperative antibiotics were given and a timeout was performed. She was placed supine on the operative table with arms outstretched and arm boards. A MAC anesthesia was induced. Once adequately sedated an axillary roll was placed between her shoulder blades to improve exposure. The left upper chest and neck regions were prepped and draped in the usual manner. Local anesthetic was then injected in the left periclavicular area. Then using the supplied needle and syringe I was able to gain access to the left subclavian vein on the first pass. The blood return was a dark red, nonpulsatile, venous appearing blood return. The supplied guidewire was then threaded through the aperture and the needle. This was advanced without difficulty. It was secured to the drapes using a curved hemostat. C-arm was brought in and confirmed good positioning of the wire. A small incision was made in the left upper chest for placement of the subcutaneous hub of the port. Local anesthetic was injected into this area. Incision was made using #15 blade. Bovie electrocautery was then used dissect down through the subcutaneous tissues. A subcutaneous pocket was created. Another small incision was made at the entry point of the guidewire. The Mediport tubing was then attached to the tunneling device and this was used to tunnel with a tubing into the larger incision and up and out through the smaller more superior incision. Tubing was then trimmed to about 20 cm. No bed then attached to the port hub. The hub was then affixed to the underlying pectoralis fascia using Prolene suture x 2. The dilator and tear-away sheath were then threaded over the guidewire and was advanced. C arm was used to confirm good placement. The dilator and guidewire were then removed thus leaving that sheath in place. The free end of the Mediport tubing was then threaded down the sheath. The sheath was then extracted. The port was tested using injectable saline. It mirza and flushed easily. Hemostasis was excellent. The wound was then closed with 3-0 Vicryl and 4-0 Vicryl. Skin glue was applied as dressing. The port was then accessed using 1 inch Mccain needle accessing tubing. A sterile 2 x 2 was placed underneath the accessing needle. A large Tegaderm was then applied over the entire area. The access and tubing was able to draw and flush easily. It was then flushed with heparin flush. The patient was awakened from anesthesia and taken to recovery in good condition. Surgical Findings: See operative note Complications Complications: No Admit VTE Documentation VTE Present on Admission: No VTE Mechan Device Prophylaxis: SCD's VTE Pharm Prophylaxis ordered?: No Reason prophylaxis not ordered: Treatment Not Indicated 03/20/25 1335 Cosigner Signature (if applicable): CC: Dr. Michael Gaines MD; JUVENTINO Pérez Signed Normal [facility] CBC (INCLUDES DIFF/PLT)on Basophils (Bld) [#/Vol] 0.055 10*3/uL Normal 0-200 [facility] Comment on above: Performed By: #### 7 600, 899, 64213, 6399, 74429 #### [facility] [address], [address] [place] [address] Pouring Crane Operator: Esteban Shen MD Basophils/100 WBC (Bld) 0.5 % Normal [facility] Comment on above: Performed By: #### 7 600, 899, 69071, 6399, 61658 #### [facility] [address], [address] [place] [address] Pouring Crane Operator: Esteban Shen MD Eosinophils (Bld) [#/Vol] 0.154 10*3/uL Normal 15-500 [facility] Comment on above: Performed By: #### 7 600, 899, 91071, 6399, 25620 #### [facility] [address], [address] [place] [address] Pouring Crane Operator: Esteban Shen MD Eosinophils/100 WBC (Bld) 1.4 % Normal [facility] Comment on above: Performed By: #### 7 600, 899, 07993, 6399, 33047 #### [facility] of [address], [address] [place] [address] Pouring Crane Operator: Esteban Shen MD Erythrocyte distribution width (RBC) [Ratio] 14.0 % Normal 11.0-15.0 [facility] Comment on above: Performed By: #### 7 600, 899, 39677, 6399, 10233 #### [facility] of [address], [address] [place] [address] Pouring Crane Operator: Esteban Shen MD Hematocrit (Bld) [Volume fraction] 42.3 % Normal 35.0-45.0 [facility] Comment on above: Performed By: #### 7 600, 899, 66135, 6399, 04155 #### [facility] of [address], [address] [place] [address] Pouring Crane Operator: Esteban Shen MD Hemoglobin (Bld) [Mass/Vol] 13.0 g/dL Normal 11.7-15.5 [facility] Comment on above: Performed By: #### 7 600, 899, 64310, 6399, 02604 #### [facility] of [place] [address] Pouring Crane Operator: Esteban Shen MD Lymphocytes (Bld) [#/Vol] 1.606 10*3/uL Normal 850-3900 [facility] Comment on above: Performed By: #### 7 600, 899, 74407, 6399, 73200 #### [facility] of [place] [address] Pouring Crane Operator: Esteban Shen MD Lymphocytes/100 WBC (Bld) 14.6 % Normal [facility] Comment on above: Performed By: #### 7 600, 899, 82400, 6399, 42219 #### [facility] of [address], [address] [place] [address] Pouring Crane Operator: Esteban Shen MD MCH (RBC) [Entitic mass] 29.7 pg Normal 27.0-33.0 [facility] Comment on above: Performed By: #### 7 600, 899, 80291, 6399, 25688 #### [facility] [place] [address] Pouring Crane Operator: Esteban Shen MD MCHC (RBC) [Mass/Vol] 30.7 g/dL Low 32.0-36.[address] [facility] Comment on above: Result Comment: For adults, a slight decrease in the calculated MCHC value (in the range of 30 to 32 g/dL) is most likely not clinically significant; however, it should be interpreted with caution in correlation with other red cell parameters and the patient's clinical condition. Performed By: #### 7 600, 899, 74509, 6399, 70681 #### [facility] [place] [address] Pouring Crane Operator: Esteban Shen MD MCV (RBC) [Entitic vol] 96.6 fL Normal 80.0-100.0 [facility] Comment on above: Performed By: #### 7 600, 899, 75994, 6399, 03732 #### [facility] [place] [address] Pouring Crane Operator: Esteban Shen MD Monocytes (Bld) [#/Vol] 0.539 10*3/uL Normal 200-950 [facility] Comment on above: Performed By: #### 7 600, 899, 69956, 6399, 87928 #### [facility] [place] [address] Pouring Crane Operator: Esteban Shen MD Monocytes/100 WBC (Bld) 4.9 % Normal [facility] Comment on above: Performed By: #### 7 600, 899, 16636, 6399, 23942 #### [facility] [place] [address] Pouring Crane Operator: Esteban Shen MD Neutrophils (Bld) [#/Vol] 8.646 10*3/uL High 6288-8730 [facility] Comment on above: Performed By: #### 7 600, 899, 77683, 6399, 43390 #### [facility] of [place] [address] Pouring Crane Operator: Esteban Shen MD Neutrophils/100 WBC (Bld) 78.6 % Normal [facility] Comment on above: Performed By: #### 7 600, 899, 41420, 6399, 09462 #### [facility] of [place] [address] Pouring Crane Operator: Esteban Shen MD Platelet mean volume (Bld) [Entitic vol] 10.4 fL Normal 7.5-12.5 [facility] Comment on above: Performed By: #### 7 600, 899, 50151, 6399, 99080 #### [facility] of [place] [address] Pouring Crane Operator: Esteban Shen MD Platelets (Bld) [#/Vol] 357 10*3/uL Normal 140-400 [facility] Comment on above: Performed By: #### 7 600, 899, 40111, 6399, 95675 #### [facility] of [place] [address] Pouring Crane Operator: Esteban Shen MD RBC (Bld) [#/Vol] 4.38 10*6/uL Normal 3.80-5.10 [facility] Comment on above: Performed By: #### 7 600, 899, 48302, 6399, 51997 #### [facility] of [place] [address] Pouring Crane Operator: Esteban Shen MD WBC (Bld) [#/Vol] 11.0 10*3/uL High 3.8-10.8 [facility] Comment on above: Performed By: #### 7 600, 899, 40218, 6399, 10177 #### [facility] of [address] [place] [address] Pouring Crane Operator: Esteban Shen MD [facility] METABOLIC PANE [facility] 03-18-2025 Albumin [Mass/Vol] 4.0 g/dL Normal 3.6-5.1 [facility] Comment on above: Performed By: #### 7 600, 899, 36775, 6399, 57305 #### [facility] of [place] [address] Pouring Crane Operator: Esteban Shen MD Albumin/Globulin [Mass ratio] 1.5 {ratio} Normal 1.0-2.5 [facility] Comment on above: Performed By: #### 7 600, 899, 37881, 6399, 29921 #### [facility] of [place] [address] Pouring Crane Operator: Esteban Shen MD ALP [Catalytic activity/Vol] 55 U/L Normal 37-153 [facility] Comment on above: Performed By: #### 7 600, 899, 03866, 6399, 27118 #### [facility] of [place] [address] Pouring Crane Operator: Esteban Shen MD ALT [Catalytic activity/Vol] 19 U/L Normal 6-29 [facility] Comment on above: Performed By: #### 7 600, 899, 62374, 6399, 54483 #### [facility] of [place] [address] Pouring Crane Operator: Esteban Shen MD AST [Catalytic activity/Vol] 18 U/L Normal 10-35 [facility] Comment on above: Performed By: #### 7 600, 899, 14573, 6399, 73481 #### [facility] of [place] [address] Pouring Crane Operator: Esteban Shen MD Bilirubin [Mass/Vol] 0.4 mg/dL Normal 0.2-1.2 [facility] Comment on above: Performed By: #### 7 600, 899, 19827, 6399, 91734 #### [facility] of [address], [address] [place] [address] Pouring Crane Operator: Esteban Shen MD BUN/CREATININE RATIO SEE NOTE: Normal 6-22 [facility] Comment on above: Result Comment: Not Reported: BUN and Creatinine are within reference range. Performed By: #### 7 600, 899, 94154, 6399, 36794 #### [facility] of [address], [address] [place] [address] Pouring Crane Operator: Esteban Shen MD Calcium [Mass/Vol] 9.3 mg/dL Normal 8.6-10.4 [facility] Comment on above: Performed By: #### 7 600, 899, 07461, 6399, 44020 #### [facility] of [place] [address] Pouring Crane Operator: Esteban Shen MD Chloride [Moles/Vol] 105 mmol/L Normal 98-110 [facility] Comment on above: Performed By: #### 7 600, 899, 71194, 6399, 35280 #### [facility] [place] [address] Pouring Crane Operator: Esteban Shen MD CO2 [Moles/Vol] 25 mmol/L Normal 20-32 [facility] Comment on above: Performed By: #### 7 600, 899, 60114, 6399, 91221 #### [facility] of [place] [address] Pouring Crane Operator: Esteban Shen MD Creatinine [Mass/Vol] 0.66 mg/dL Normal 0.60-1.00 Replaced By [facility] Comment on above: Performed By: #### 7 600, 899, 33596, 6399, 74867 #### [facility] of [place] [address] Pouring Crane Operator: Esteban Shen MD GFR/1.73 sq M.predicted among non-blacks MDRD (S/P/Bld) [Vol rate/Area] 91 mL/min/{1.73_m2} Normal > OR = 60 [facility] Comment on above: Performed By: #### 7 600, 899, 15600, 6399, 26847 #### [facility] [place] [address] Pouring Crane Operator: Esteban Shen MD Globulin (S) [Mass/Vol] 2.7 g/dL Normal 1.9-3.7 [facility] Comment on above: Performed By: #### 7 600, 899, 56024, 6399, 66229 #### [facility] of [place] [address] Pouring Crane Operator: Esteban Shen MD Glucose [Mass/Vol] 96 mg/dL Normal 65-99 [facility] Comment on above: Result Comment: Fasting reference interval Performed By: #### 7 600, 899, 90978, 6399, 47382 #### [facility] [place] [address] Pouring Crane Operator: Esteban Shen MD Potassium [Moles/Vol] 4.4 mmol/L Normal 3.5-5.3 Replaced By [facility] Comment on above: Performed By: #### 7 600, 899, 17551, 6399, 92005 #### [facility] [place] [address] Pouring Crane Operator: Esteban Shen MD Protein [Mass/Vol] 6.7 g/dL Normal 6.1-8.1 [facility] Comment on above: Performed By: #### 7 600, 899, 18093, 6399, 92830 #### [facility] of [place] [address] Pouring Crane Operator: Esteban Shen MD Sodium [Moles/Vol] 140 mmol/L Normal 135-146 [facility] Comment on above: Performed By: #### 7 600, 899, 52476, 6399, 16883 #### [facility] of [place] [address] Pouring Crane Operator: Esteban Shen MD Urea nitrogen [Mass/Vol] 21 mg/dL Normal 7-25 [facility] Comment on above: Performed By: #### 7 600, 899, 05499, 6399, 08731 #### [facility] [place] [address] Pouring Crane Operator: Esteban Shen MD LIPID PANEL, [address] Cholesterol [Mass/Vol] 190 mg/dL Normal <200 [facility] Comment on above: Performed By: #### 7 600, 899, 32045, 6399, 95960 #### [facility] [address], [address] [place] [address] Pouring Crane Operator: Esteban Shen MD Cholesterol in HDL [Mass/Vol] 66 mg/dL Normal > OR = 50 [facility] Comment on above: Performed By: #### 7 600, 899, 80544, 6399, 80616 #### [facility] [place] [address] Pouring Crane Operator: Esteban Shen MD Cholesterol in LDL [Mass/Vol] 103 mg/dL High [facility] Comment on above: Result Comment: Refe rence range: <100 Desirable range <100 mg/dL for primary prevention; <70 mg/dL for patients with CHD or diabetic patients with > or = 2 CHD risk factors. LDL-C is now calculated using the Sugey calculation, which is a validated novel method providing better accuracy than the Friedewald equation in the estimation of LDL-C. Rohan HO et al. NIEVES. 2013;310(19): 6527-3529 (http://education.Publons.LIBCAST/faq/GQT247) Performed By: #### 7 600, 899, 64274, 6399, 10170 #### [facility] [address], [address] [place] [address] Pouring Crane Operator: Esteban Shen MD Cholesterol.total/Chol esterol in HDL [Mass ratio] 2.9 {ratio} Normal <5.0 [facility] Comment on above: Performed By: #### 7 600, 899, 90077, 6399, 40480 #### [facility] [place] [address] Pouring Crane Operator: Esteban Shen MD NON HDL CHOLESTEROL 124 mg/dL (calc) Normal <130 [facility] Comment on above: Result Comment: For patients with diabetes plus 1 major ASCVD risk factor, treating to a non-HDL-C goal of <100 mg/dL (LDL-C of <70 mg/dL) is considered a therapeutic option. Performed By: #### 7 600, 899, 44130, 6399, 89919 #### [facility] [place] [address] Pouring Crane Operator: Esteban Shen MD Triglyceride [Mass/Vol] 116 mg/dL Normal <150 [facility] Comment on above: Performed By: #### 7 600, 899, 69460, 6399, 35687 #### [facility] [place] [address] Pouring Crane Operator: Esteban Shen MD T4, FREEon 03-18-2025 Free T4 [Mass/Vol] 1.0 ng/dL Normal 0.8-1.8 [facility] Comment on above: Performed By: #### 7 600, 899, 88174, 6399, 48622 #### [facility] [place] [address] Pouring Crane Operator: Esteban Shen MD TSHon 03-18-2025 TSH Qn 2.46 m[IU]/L Normal 0.40-4.50 [facility] Comment on above: Performed By: #### 1 0231, 7600, 76792, 899, 1005, 866 #### [facility] [place] [address] Pouring Crane Operator: Esteban Shen MD VITAMIN D,25-OH,TOTAL,IAon 0 03-18-2025 VITAMIN D,25-OH,TOTAL,IA 26 ng/mL Low 30-100 [facility] Comment on above: Result Comment: Ryan[place] min D Status 25-OH Vitamin D: Deficiency: <20 ng/mL Insufficiency: 20 - 29 ng/mL Optimal: > or = 30 ng/mL For 25-OH Vitamin D testing on patients on D2-supplementation and patients for whom quantitation of D2 and D3 fractions is required, the QuestAssureD(TM) 25-OH VIT D, (D2,D3), LC/MS/MS is recommended: order code 08541 (patients >2yrs). See Note 1 Note 1 For additional information, please refer to http://education.Publons.LIBCAST/faq/TQD210 (This link is being provided for informational/ educational purposes only.) Performed By: #### 1 0231, 7600, 21838, [phone], [phone], 866 #### [facility] [place] [id number] [facility], [address] [place] [id number] Pouring Crane Operator: Esteban Shen MD Laboratory - Chemistry and C hemistry - challengeon 03-17-2025 Albumin [Mass/Vol] 4.0 g/dL Normal 3.6 - 5.1 g/dL [facility], [facility].; [employer] Albumin/Globulin [Mass ratio] 1.5 {ratio} Normal 1.0 - 2.5 [facility], [facility].; [employer] ALP [Catalytic activity/Vol] 55 U/L Normal 37 - 153 U/L [facility], [facility].; [employer] [facility] ALT [Catalytic activity/Vol] 19 U/L Normal 6 - 29 U/L [facility], [facility].; [employer] AST [Catalytic activity/Vol] 18 U/L Normal 10 - 35 U/L [facility], [facility].; [employer] Bilirubin [Mass/Vol] 0.4 mg/dL Normal 0.2 - 1 .2 mg/dL [facility], [facility].; [employer] Calcium [Mass/Vol] 9.3 mg/dL Normal 8.6 - 10. 4 mg/dL [facility], [facility].; [employer] Chloride [Moles/Vol] 105 mmol/L Normal 98 - 11 0 mmol/L [facility], [facility].; [employer] Cholesterol [Mass/Vol] 190 mg/dL Normal [facility] [employer] [facility]. Cholesterol in HDL [Mass/Vol] 66 mg/dL Normal [facility].; [facility]. Cholesterol in LDL [Mass/Vol] 103 mg/dL Abnormal [facility].; [facility], [facility]. CO2 [Moles/Vol] 25 mmol/L Normal 20 - 32 mmol/L [facility].; [facility], [facility]. Creatinine [Mass/Vol] 0.66 mg/dL Normal 0.60 - 1.00 mg/dL [facility].; [employer], [facility]. Free T4 [Mass/Vol] 1.0 ng/dL Normal 0.8 - 1.8 ng/dL [facility].; [employer] [facility]. GFR/1.73 sq M.predicted among non-blacks MDRD (S/P/Bld) [Vol rate/Area] 91 mL/min/{1.73_m2} Normal [facility].; [facility], [facility]. Glucose [Mass/Vol] 96 mg/dL Normal 65 - 99 mg/dL [facility].; [employer], [facility]. Potassium [Moles/Vol] 4.4 mmol/L Normal 3.5 - 5.3 mmol/L [facility].; [facility], [employer]. Protein [Mass/Vol] 6.7 g/dL Normal 6.1 - 8.1 g/dL [facility], [facility].; [employer], [employer] Sodium [Moles/Vol] 140 mmol/L Normal 135 - 146 mmol/L [facility].; [employer], [employer] Triglyceride [Mass/Vol] 116 mg/dL Normal [facility].; [employer], [employer] TSH Qn 2.46 m[IU]/L Normal 0.40 - 4.50 {mIU/L} [facility].; [employer], [employer] Urea nitrogen [Mass/Vol] 21 mg/dL Normal 7 - 25 mg/dL [facility].; [employer]. Laboratory - Hematology and Cell countson 03-17-2025 Basophils (Bld) [#/Vol] 0.055 10*3/uL Normal 0 - 200 {cells/uL} [facility].; [facility]. Basophils/100 WBC (Bld) 0.5 % Normal [facility].; [facility], [facility]. Eosinophils (Bld) [#/Vol] 0.154 10*3/uL Normal 15 - 500 {cells/uL} [facility], [facility].; [facility], [facility]. Eosinophils/100 WBC (Bld) 1.4 % Normal [facility].; [facility], [facility] Erythrocyte distribution width (RBC) [Ratio] 14.0 % Normal 11.0 - 15.0 % [facility].; [facility], [facility]. Hematocrit (Bld) [Volume fraction] 42.3 % Normal 35.0 - 45.0 % [facility], [facility].; [facility], [facility] Hemoglobin (Bld) [Mass/Vol] 13.0 g/dL Normal 11.7 - 15.5 g/dL [facility].; [facility], [facility]. Lymphocytes (Bld) [#/Vol] 1.606 10*3/uL Normal 850 - 3900 {cells/uL} [facility].; [facility], [facility]. Lymphocytes/100 WBC (Bld) 14.6 % Normal [facility].; [employer], [facility]. MCH (RBC) [Entitic mass] 29.7 pg Normal 27.0 - 33.0 pg [facility].; [employer], [facility]. MCHC (RBC) [Mass/Vol] 30.7 g/dL Abnormal 32.0 - 36.0 g/dL [facility].; [facility], [facility]. MCV (RBC) [Entitic vol] 96.6 fL Normal 80.0 - 100.0 fL [facility].; [facility], [facility]. Monocytes (Bld) [#/Vol] 0.539 10*3/uL Normal 200 - 950 {cells/uL} [facility], [facility].; [employer], [facility]. Monocytes/100 WBC (Bld) 4.9 % Normal [facility].; [facility]. Neutrophils (Bld) [#/Vol] 8.646 10*3/uL Abnormal 1500 - 7800 {cells/uL} [facility].; [employer]. Neutrophils/100 WBC (Bld) 78.6 % Normal [employer]. Platelet mean volume (Bld) [Entitic vol] 10.4 fL Normal 7.5 - 12.5 fL [facility].; [employer]. Platelets (Bld) [#/Vol] 357 10*3/uL Normal 140 - 400 [employer]. RBC (Bld) [#/Vol] 4.38 10*6/uL Normal 3.80 - 5.10 {Million/u L} [employer]. WBC (Bld) [#/Vol] 11.0 10*3/uL Abnormal 3.8 - 10.8 [facility].; [employer]. No Panel Informationon 03-17 BUN/CREATININE RATIO SEE NOTE: Normal 6 - 22 [facility].; [employer]. CHOL/HDLC RATIO 2.9 Normal [employer] GLOBULIN 2.7 Normal 1.9 - 3.7 [facility].; [employer]. NON HDL CHOLESTEROL 124 Normal [facility].; [employer]. VITAMIN D,25-OH,TOTAL,IA 26 ng/mL Abnormal 30 - 100 ng/mL [employer]. Oncology Visit Reporton 03-02 Oncology Visit Report [facility] [address] [place] [address] OFFICE VISIT Date of Service: 03/15/25804 MR#: [id number] Acct: [id number] Name: JESSIKA CARRILLO Rep #: [id number] : 1950 From: Alyssa Lynch NP SECURITY INFRASTRUCTURE ENGINEER -C Age/Sex: 74/F Location: [facility] Status: Signed HPI Subjective Date of Service 03/15/25 Chief Complaint Colon cancer History of Present Illness 74-year-old female with no family of colon cancer had screening colonoscopy August 17, [address] Boles at [place] with 2 sessile polypoid lesions were found, at 30 cm was positive for adenocarcinoma, the second lesion was at 50 cm no pathology was found. November 17, 2024 CT scan of the abdomen and pelvis showed a filling defect at the mid descending colon, none specific mesenteric lymph nodes, hypodense foci in the right and left hepatic lobes too small to characterize. Incidental findings were a right renal cyst and a 10 mm hypodense focus in the upper pole of the left kidney. Patient was then referred to [facility] for further management. December 31, 2024 MRI of the abdomen and pelvis: Benign cysts in the liver and kidney, ascending colonic mass with adjacent infiltrative or reactive inflammatory change with a mass abutting the inferior right lobe of liver without dividing the fat plane and right mesenteric lymphadenopathy. December 31, 2024 CT of the chest: 2 nonspecific pulmonary nodules in the left lung base measuring 6 mm and 3 mm. January 23, 2025 robotic right hemicolectomy at [facility] by Dr. Antonio. 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 Mismatch repair protein by IHC showed MLH1 absent/lost, PMS2 absent/lost, MSH2 present/intact, MSH6 present/intact. 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 No further testing was indicated. Treatment summary and response: January 23, 2025 robotic right hemicolectomy at [facility]. Interval History The patient is presenting to clinic accompanied by adult daughter, Don for an education visit. No diarrhea, has not identified any aggravating foods. Reports active lifestyle and good support system by way of daughters. [facility] Medical History (Updated 03/15/25 @ 08:16 by Alyssa Lynch NP, SECURITY INFRASTRUCTURE ENGINEER-C) Encounter for education Lung nodules Regional lymph node metastasis present Degenerative joint disease Arthritis High cholesterol Back pain Migraine headache Syncope History of Meniere's disease Former smoker Hx of echocardiogram Hypertension Surgical History History of colectomy History of total right knee replacement Hx of colonoscopy Family History Father Heart disease Aunt Breast cancer Social History Smoking Status: Former smoker Tobacco: How many years used: 5 alcohol intake: never substance use type: does not use ROS ROS Narrative Negative except as documented in the interval HPI Intake Vital Signs 03/09/25 09:22 03/15/25 08:06 03/15/25 08:10 Height 5 ft 2 in 5 ft 2 in 5 ft 2 in Weight: 185 lb 2 oz 187 lb 3 oz BMI 33.8 34.2 BP 157/85 H 151/80 H Blood Pressure Location Lt brachial Rt brachial Position Sitting Sitting Respiration 16 16 Pulse 63 57 L Pulse Source Monitor Monitor Temp 97.3 F L 98.2 F Temperature Source Temporal Artery Temporal Artery Pulse Oximetry (%) 100 98 Oxygen Delivery Method room air room air Intake Allergies No Known Allergies Allergy (Verified 03/15/25 08:09) Medications ???Medication ???Instructions ???Recorded ???Confirmed ???Type lisinopril 20 1 tab PO DAILY 03/18/21 03/15/25 H istory mg-hydrochlorothiazide 25 mg tablet metoprolol tartrate 50 mg tablet 50 mg PO DAILY 03/18/21 03/15/25 H istory multivitamin 1 tab PO QDAY 03/06/25 03/15/25 Hi story turmeric 400 mg capsule mg PO DAILY 03/06/25 03/15/25 Hist ory lidocaine-prilocaine 2.5 %-2.5 % 1 applic topical ONCE PRN port 03/15/25 Rx topical cream access 30 days #30 grams ondansetron 8 mg disintegrating 8 mg PO Q8H PRN nausea and 5 03/15/25 Rx tablet vomiting #30 tabs prochlorperazine maleate 10 mg 10 mg PO Q6H PRN nausea and 03/15/25 Rx tablet vomiting #30 tabs Have you fallen in the past year?: No Central Venous Access Minal (more content not included)... Normal [facility] Surgery Visit Reporton 03-15 Surgery Visit Report [facility] [address] [place] [address] OFFICE VISIT Date of Service: 03/15/25 MR#: [id number] Acct: [id number] Name: JESSIKA CARRILLO Rep #: [id number] : 1950 Provider: Dr. Michael pagan MD Age/Sex: 74/F Location: [facility] Status: Signed Intake Vital Signs 03/09/25 09:22 03/15/25 08:10 03/15/25 10:10 Height 5 ft 2 in 5 ft 2 in 5 ft 2 in Weight: 187 lb 3 oz BMI 34.2 BP 148/84 H Blood Pressure Location Rt brachial Position Sitting Respiration 18 Pulse 61 Pulse Source Monitor Temp 97.6 F L Temp Source Temporal Pulse Oximetry (%) 96 Oxygen Delivery Method room air Intake Visit Reasons: PORT PLACEMENT Chief Complaint: port placement Accompanied by: Daughter Is patient in pain?: No Allergies No Known Allergies Allergy (Verified 03/15/25 10:11) Medications ???Medication ???Instructions ???Recorded ???Confirmed ???Type lisinopril 20 1 tab PO DAILY 03/18/21 03/15/25 H istory mg-hydrochlorothiazide 25 mg tablet metoprolol tartrate 50 mg tablet 50 mg PO DAILY 03/18/21 03/15/25 H istory multivitamin 1 tab PO QDAY 03/06/25 03/15/25 Hi story turmeric 400 mg capsule mg PO DAILY 03/06/25 03/15/25 Hist ory lidocaine-prilocaine 2.5 %-2.5 % 1 applic topical ONCE PRN port 03/15/25 Rx topical cream access 30 days #30 grams ondansetron 8 mg disintegrating 8 mg PO Q8H PRN nausea and 5 03/15/25 Rx tablet vomiting #30 tabs prochlorperazine maleate 10 mg 10 mg PO Q6H PRN nausea and 03/15/25 Rx tablet vomiting #30 tabs Have you fallen in the past year?: No PFSH Medical History Encounter for education Lung nodules Regional lymph node metastasis present Degenerative joint disease Arthritis High cholesterol Back pain Migraine headache Syncope History of Meniere's disease Former smoker Hx of echocardiogram Hypertension Surgical History History of colectomy History of total right knee replacement Hx of colonoscopy Family History Father Heart disease Aunt Breast cancer Social History Smoking Status: Former smoker Tobacco: How many years used: 5 alcohol intake: never substance use type: does not use HPI HPI HPI: The patient is a 74-year-old female who is being seen today to discuss port placement. She was recently discovered to have colon cancer. Her treating oncologist have recommended chemotherapy. She is supposed to begin chemotherapy I believe on March 21. She is here to discuss and schedule port placement ROS General General: Yes colon cancer; No weight change, appetite, fatigue, breast cancer or weakness HEENT HEENT: No difficulty swallowing, eye injury, eye surgery, swollen glands or hoarseness Endo Endocrine: No thyroid disease, diabetes mellitus, thyroid cancer, Hair loss, heat intolerance or cold intolerance Skin Skin: No rash or changing moles Musc Musculoskeletal: Yes arthritis; No back problems, rheumatoid arthritis, gout or joint pain Cardio Cardiovascular: Yes high blood pressure; No murmur, pacemaker, heart disease, atrial fibrillation, heart attack, heart stent, palpitations, shortness of breath with exertion or chest pain Psych Psychiatric: No depression, anxiety or hearing voices Resp Respiratory: No shortness of breath, No sleep apnea, No cough, No COPD, Yes asthma, No emphysema and No wheezing Gastro Gastrointestinal: No abdominal pain, No nausea or vomiting, No diarrhea, No constipation, No blood in stool, No acid reflux, Yes hemorrhoids, No ulcers, No gallbladder problem and No black,tarry stools Justino Hematologic: No blood thinners, No blood disorders, No bleeding, No anemia and No blood clots Neuro Neurologic: No numbness, No tingling and No weakness Exam Const General: cooperative, healthy appearing, comfortable and no acute distress HENRI Head: normal to inspection Eyes General: appearance normal, both eyes and all related structures Neck Neck: normal visual inspection Resp Effort Inspection: normal respiratory effort Assessment and Plan Assessment and Plan (1) Colon cancer: Status: Acute Qualifiers: Colon location: ascending Qualified Code(s): C18.2 - Malignant neoplasm of ascending colon Plan: The patient is a 74-year-old female recently discovered to have colon cancer. We discussed the details of the planned Mediport placement. We will place this on her left side. We discussed risks and benefits and she wishes to proceed. This will be scheduled in a timely manner. Coding Level o (more content not included)... Normal [facility] Carcinoembryonic Antigenon 0 03-10-2025 CEA 6.3 ng/mL High 0.0-4.7 [facility] Comment on above: Result Comment: Nons mokers <3.9 Smokers <5.6 [facility] Electrochemiluminescence Immunoassay (ECLIA) Values obtained with different assay methods or kits cannot be used interchangeably. Results cannot be interpreted as absolute evidence of the presence or absence of malignant disease. Performed at: [address] [id number] Agricultural Technician: Abimael Sheridan PhD, Phone: [phone] Performed By: #### L 100.7183, K024.4720, W0832.8811 ####[facility] [address] [place], [address] Absolute lymphocyte countOrd ered By: [place] on 03-09-2025 Lymphocytes Auto (Unsp spec) [#/Vol] 1.75 10*3/uL 0.83-4.51 [facility] Absolute neutrophil countOrd ered By: [place] on 03-09-2025 Neutrophils (Bld) [#/Vol] 5.1 10*3/uL 2.0-7.7 [facility] Anion gap in Serum or Plasma Ordered By: [place] on 03-09-2025 Anion gap [Moles/Vol] 11 mmol/L 5-15 [facility] Automated lymphocyte count a s percentage of total leukocytesOrdered By: [place] on 03-09-2025 Lymphocytes/100 WBC Auto (Unsp spec) 22.7 % 19-41 [facility] BUN/creatinine ratioOrdered By: [facility] on 03-09-2025 Urea nitrogen/Creatinine [Mass ratio] 20.1 mg/mg High 10-20 [facility] Basophil percentageOrdered B y: [place] on 03-09-2025 Basophils/100 WBC (Bld) 1.2 % High 0-1 [facility] Bilirubin, totalOrdered By: [facility] on 03-09-2025 Bilirubin [Mass/Vol] 0.41 mg/dL 0.00-1.30 [facility] CBC W/Diff, Automatedon Absolute Lymph 1.75 X10 3/uL Normal 0.83-4.51 [facility] Comment on above: Performed By: #### L 100.0100, L500.4050, L3100.2300 ####[facility] [address] [place], [address] Absolute Neut 5.1 X10 3/uL Normal 2.0-7.7 [facility] Comment on above: Performed By: #### L 100.0100, L500.4050, L3100.2300 ####[facility] [address] [place], [address] Basophils/100 WBC (Bld) 1.2 % High 0-1 [facility] Comment on above: Performed By: #### L 100.0100, L500.4050, L3100.2300 ####[facility] [address] [place], [address] Eosinophils/100 WBC (Bld) 2.5 % Normal 0-5 [facility] Comment on above: Performed By: #### L 100.0100, L500.4050, L3100.2300 ####[facility] [address] [place], [address] Erythrocyte distribution width (RBC) [Ratio] 12.9 % Normal 11.6-14.6 [facility] Comment on above: Performed By: #### L 100.0100, L500.4050, L3100.2300 ####[facility] [address] [place], [address] Hematocrit (Bld) [Volume fraction] 41.3 % Normal 37-47 [facility] Comment on above: Performed By: #### L 100.0100, L500.4050, L3100.2300 ####[facility] [address] [place], [address] Hemoglobin (Bld) [Mass/Vol] 13.9 g/dL Normal 12.0-15.0 [facility] Comment on above: Performed By: #### L 100.0100, L500.4050, L3100.2300 ####[facility] [address] [place], [address] IG% 0.400 Normal 0.0-0.9 [facility] Comment on above: Result Comment: IG% - Immature Granulocytes (promyelocytes, myelocytes and metamyelocytes) > 1% indicates that a LEFT SHIFT is Present. Performed By: #### L 100.0100, L500.4050, L3100.2300 ####[facility] [address] [place], [address] Lymphocytes/100 WBC (Bld) 22.7 % Normal 19-41 [facility] Comment on above: Performed By: #### L 100.0100, L500.4050, L3100.2300 ####[facility] [address] [place], [address] MCH (RBC) [Entitic mass] 30.4 pg Normal 27.0-32.0 [facility] Comment on above: Performed By: #### L 100.0100, L500.4050, L3100.2300 ####[facility] [address] [place], [address] MCHC (RBC) [Mass/Vol] 33.7 g/dL Normal 32-36 [facility] Comment on above: Performed By: #### L 100.0100, L500.4050, L3100.2300 ####[facility] [address] [place], [address] MCV (RBC) [Entitic vol] 90.4 fL Normal 81-99 [facility] Comment on above: Performed By: #### L 100.0100, L500.4050, L3100.2300 ####[facility] [address] [place], [address] Monocytes/100 WBC (Bld) 6.7 % Normal 0-10 [facility] Comment on above: Performed By: #### L 100.0100, L500.4050, L3100.2300 ####[facility] [address] [place], [address] Neutrophils/100 WBC (Bld) 66.5 % Normal 47-70 [facility] Comment on above: Performed By: #### L 100.0100, L500.4050, L3100.2300 ####[facility] [address] [place], [address] Nucleated RBC (Bld) [#/Vol] 0 10*3/uL Normal 0-5 [facility] Comment on above: Performed By: #### L 100.0100, L500.4050, L3100.2300 ####[facility] [address] [place], [address] Platelet mean volume (Bld) [Entitic vol] 8.8 fL Normal 6.2-12.0 [facility] Comment on above: Performed By: #### L 100.0100, L500.4050, L3100.2300 ####[facility] [address] [place], [address] Platelets (Bld) [#/Vol] 382 10*3/uL Normal 150-450 [facility] Comment on above: Performed By: #### L 100.0100, L500.4050, L3100.2300 ####[facility] [address] [place], [address] RBC (Bld) [#/Vol] 4.57 10*6/uL Normal 4.2-5.4 [facility] Comment on above: Performed By: #### L 100.0100, L500.4050, L3100.2300 ####[facility] [address] [place], [address] RDW SD 42.3 fl Normal 35.1-43.9 [facility] Comment on above: Performed By: #### L 100.0100, L500.4050, L3100.2300 ####[facility] [address] [place], [address] WBC (Bld) [#/Vol] 7.7 10*3/uL Normal 4.4-11.0 [facility] [facility] Comment on above: Performed By: #### L 100.0100, L500.4050, L3100.2300 ####[facility] [address] [place], [address] Carbon dioxide, total [Moles /volume] in Central venous bloodOrdered By: New oCnn on 03-09-2025 CO2 [Moles/Vol] 25.5 mmol/L 21.0-32.0 [facility] Chloride assayOrdered By: Ru Conn on 03-09-2025 Chloride [Moles/Vol] 102 mmol/L 98-108 [facility] Comprehensive Metabolic Prof ilon 03-09-2025 Albumin [Mass/Vol] 4.1 g/dL Normal 3.4-4.8 [facility] Comment on above: Performed By: #### L 100.0100, L500.4050, L3100.2300 ####[facility] [address] [place], [address] Albumin/Globulin [Mass ratio] 1.3 {ratio} Normal 0.9-2.4 [facility] Comment on above: Performed By: #### L 100.0100, L500.4050, L3100.2300 ####[facility] [address] [place], [address] ALK PHOS 73 U/L Normal 35-104 [facility] Comment on above: Performed By: #### L 100.0100, L500.4050, L3100.2300 ####[facility] [address] [place], [address] ALT [Catalytic activity/Vol] 26 U/L Normal <=34 [facility] Comment on above: Performed By: #### L 100.0100, L500.4050, L3100.2300 ####[facility] [address] [place], [address] AST [Catalytic activity/Vol] 34 U/L High <=31 [facility] Comment on above: Performed By: #### L 100.0100, L500.4050, L3100.2300 ####[facility] [address] [place], [address] Bilirubin [Mass/Vol] 0.41 mg/dL Normal 0.00-1.30 [facility] Comment on above: Performed By: #### L 100.0100, L500.4050, L3100.2300 ####[facility] [address] [place], [address] BUN/CRE 20.1 RATIO High 10-20 [facility] Comment on above: Performed By: #### L 100.0100, L500.4050, L3100.2300 ####[facility] [address] [place], [address] Calcium [Mass/Vol] 9.8 mg/dL Normal 7.6-11.0 [facility] Comment on above: Performed By: #### L 100.0100, L500.4050, L3100.2300 ####[facility] [address] [place], [address] Chloride [Moles/Vol] 102 mmol/L Normal 98-108 [facility] Comment on above: Performed By: #### L 100.0100, L500.4050, L3100.2300 ####[facility] [address] [place], [address] CO2 [Moles/Vol] 25.5 mmol/L Normal 21.0-32.0 [facility] Comment on above: Performed By: #### L 100.0100, L500.4050, L3100.2300 ####[facility] [address] [place], [address] Creatinine [Mass/Vol] 0.74 mg/dL Normal 0.70-1.20 [facility] Comment on above: Performed By: #### L 100.0100, L500.4050, L3100.2300 ####[facility] [address] [place], [address] GAP 11 Normal 5-15 [facility] Comment on above: Performed By: #### L 100.0100, L500.4050, L3100.2300 ####[facility] [address] [place], [address] GFR/1.73 sq M.predicted among non-blacks MDRD (S/P/Bld) [Vol rate/Area] 84 mL/min/{1.73_m2} Normal >60 [facility] Comment on above: Result Comment: mL/m in/1.73m2 CKD-EPI Creatinine Equation (2020) Performed By: #### L 100.0100, L500.4050, L3100.2300 ####[facility] [address] [place], [address] Globulin (S) [Mass/Vol] 3.3 g/dL Normal 2.2-4.2 [facility] Comment on above: Performed By: #### L 100.0100, L500.4050, L3100.2300 ####[facility] [address] [place], [address] Glucose [Mass/Vol] 101 mg/dL High 70-99 [facility] Comment on above: Performed By: #### L 100.0100, L500.4050, L3100.2300 ####[facility] [address] [place], [address] Potassium [Moles/Vol] 4.2 mmol/L Normal 3.3-5.1 [facility] Comment on above: Performed By: #### L 100.0100, L500.4050, L3100.2300 ####[facility] [address] [place], [address] Sodium [Moles/Vol] 139 mmol/L Normal 133-145 [facility] Comment on above: Performed By: #### L 100.0100, L500.4050, L3100.2300 ####[facility] [address] [place], [address] T PROT 7.4 g/dL Normal 5.9-8.4 [facility] Comment on above: Performed By: #### L 100.0100, L500.4050, L3100.2300 ####[facility] [address] [place], [address] Urea nitrogen [Mass/Vol] 15 mg/dL Normal 4-19 [facility] Comment on above: Performed By: #### L 100.0100, L500.4050, L3100.2300 ####[facility] [address] [place], [address] Eosinophil percentageOrdered By: [place] on 03-09-2025 Eosinophils/100 WBC (Bld) 2.5 % 0-5 [facility] Erythrocyte distribution wid th ratioOrdered By: [facility] on 03-09-2025 Erythrocyte distribution width (RBC) [Ratio] 12.9 % 11.6-14.6 [facility] Erythrocyte distribution wid th standard deviationOrdered By: [place] on 03-09-2025 Erythrocyte distribution width (RBC) [Ratio] 42.3 fl 35.1-43.9 [facility] Glomerular filtration rate ( GFR) estimation/1.73 sq m using serum, plasma, or whole bOrdered By: [facility] Conn on 03-09-2025 GFR/1.73 sq M.predicted among non-blacks MDRD (S/P/Bld) [Vol rate/Area] 84 mL/min/{1.73_m2} >60 [facility] Comment on above: mL/min/1.73m2 CKD-EP I Creatinine Equation (2020) Hematocrit Auto (Bld) [Volum e fraction]Ordered By: [facility] Conn on 03-09-2025 Hematocrit (Bld) [Volume fraction] 41.3 % 37-47 [facility] Hemoglobin measurementOrdere d By: [place] on 03-09-2025 Hemoglobin (Bld) [Mass/Vol] 13.9 g/dL 12.0-15.0 [facility] Immature granulocytes/100 WB C Auto (Bld)Ordered By: [place] on 03-09-2025 Immature granulocytes/100 WBC (Bld) 0.400 % 0.0-0.9 [facility] Comment on above: IG% - Immature Granu locytes (promyelocytes, myelocytes and metamyelocytes) > 1% indicates that a LEFT SHIFT is Present. Laboratory - Chemistry and C hemistry - challengeOrdered By: [place] on 03-09-2025 AST [Catalytic activity/Vol] 34 U/L High <32 [facility] MCV (mean corpuscular volume ) determinationOrdered By: [place] on 03-09-2025 MCV (RBC) [Entitic vol] 90.4 fL 81-99 [facility] Mean corpuscular hemoglobin (MCH) determinationOrdered By: [place] on 03-09-2025 MCH (RBC) [Entitic mass] 30.4 pg 27.0-32.0 [facility] Mean corpuscular hemoglobin concentration (MCHC) determinationOrdered By: [place] on 03-09-2025 MCHC (RBC) [Mass/Vol] 33.7 g/dL 32-36 [facility] Mean platelet volume determi nationOrdered By: [place] on 03-09-2025 Platelet mean volume (Bld) [Entitic vol] 8.8 fL 6.2-12.0 [facility] Monocyte percentageOrdered B y: [place] on 03-09-2025 Monocytes/100 WBC (Bld) 6.7 % 0-10 [facility] Neutrophil percentageOrdered By: [place] on 03-09-2025 Neutrophils/100 WBC (Bld) 66.5 % 47-70 [facility] Nucleated red blood cell per centageOrdered By: [place] on 03-09-2025 Nucleated RBC/100 WBC (Bld) [Ratio] 0 % 0-5 [facility] Oncology Visit Reporton Oncology Visit Report [facility] [place] [facility] [address] [place] [address] OFFICE VISIT Date of Service: 03/09/2515 MR#: [id number] Acct: [id number] Name: JESSIKA CARRILLO Perry Rep #: [id number] : 1950 From: [place] MD Age/Sex: 74/F Location: [facility] Status: Signed HPI Subjective Date of Service 03/09/25 Chief Complaint Colon cancer History of Present Illness 74-year-old female with no family of colon cancer had screening colonoscopy August 17, [address] Boles at [place] with 2 sessile polypoid lesions were found, at 30 cm was positive for adenocarcinoma, the second lesion was at 50 cm no pathology was found. November 17, 2024 CT scan of the abdomen and pelvis showed a filling defect at the mid descending colon, none specific mesenteric lymph nodes, hypodense foci in the right and left hepatic lobes too small to characterize. Incidental findings were a right renal cyst and a 10 mm hypodense focus in the upper pole of the left kidney. Patient was then referred to [facility] for further management. December 31, 2024 MRI of the abdomen and pelvis: Benign cysts in the liver and kidney, ascending colonic mass with adjacent infiltrative or reactive inflammatory change with a mass abutting the inferior right lobe of liver without dividing the fat plane and right mesenteric lymphadenopathy. December 31, 2024 CT of the chest: 2 nonspecific pulmonary nodules in the left lung base measuring 6 mm and 3 mm. January 23, 2025 robotic right hemicolectomy at [facility] by Dr. Antonio. 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 Mismatch repair protein by IHC showed MLH1 absent/lost, PMS2 absent/lost, MSH2 present/intact, MSH6 present/intact. 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 No further testing was indicated. Treatment summary and response: January 23, 2025 robotic right hemicolectomy at [facility]. [facility] Medical History (Updated 03/09/25 @ 10:[address] [place] Conn MD) Lung nodules Regional lymph node metastasis present Degenerative joint disease Arthritis High cholesterol Back pain Migraine headache Syncope History of Meniere's disease Former smoker Hx of echocardiogram Hypertension Surgical History History of colectomy History of total right knee replacement Hx of colonoscopy Family History (Updated 03/09/25 @ 09:27 by Kalie Burnett) Father Heart disease Aunt Breast cancer Social History (Updated 03/09/25 @ 09:26 by Kalie Burnett) Smoking Status: Former smoker Tobacco: How many years used: 5 alcohol intake: never substance use type: does not use ROS Constitutional Constitutional: Reports systems reviewed and no addt'l complaints, except as documented and other Details: , lives alone, 1 level house, able to do ADL independently ; Denies fatigue, fever(s) or weight loss Eyes Eyes: Reports systems reviewed and no addt'l complaints, except as documented ENT HEENT: Reports systems reviewed and no addt'l complaints, except as documented; Denies mouth lesions Cardiovascular Cardiovascular: Reports systems reviewed and no addt'l complaints, except as documented; Denies chest pain with activity or edema Respiratory/Chest Respiratory/Chest: Reports systems reviewed and no addt'l complaints, except as documented; Denies cough or dyspnea Gastrointestinal Gastrointestinal: Reports systems reviewed and no addt'l complaints, except as documented; Denies change in bowel habits, dysphagia, hematochezia or melena Genitourinary Genitourinary: Reports systems reviewed and no addt'l complaints, except as documented Musculoskeletal Musculoskeletal: Reports systems reviewed and no addt'l complaints, except as documented, arthralgias, back pain and other Details: Chronic ; Denies difficulty walking Integumentary Integumentary: Reports systems reviewed and no addt'l complaints, except as documented; Denies new lesions Neurologic Neurologic: Reports systems reviewed and no addt'l complaints, except as documented; Denies focal weakness or paresthesias Psychiatric Psychiatric: Reports systems reviewed and no addt'l complaints, except as documented Endocrine Endocrinology: Reports systems reviewed and no addt'l complaints, except as documented Hematologic/Lymphatic Hematologic/Lymphatic: Reports systems reviewed and no addt'l complaints, except as documen (more content not included)... Normal [facility] Platelet countOrdered By: Ru Conn on 03-09-2025 Platelets (Bld) [#/Vol] 382 10*3/uL 150-450 [facility] Potassium measurement (mass/ volume)Ordered By: [place] on 03-09-2025 Potassium (Unsp spec) [Mass/Vol] 4.2 mmol/L 3.3-5.1 [facility] RBC Auto (Bld) [#/Vol]Ordere d By: [place] Conn on 03-09-2025 RBC (Bld) [#/Vol] 4.57 10*6/uL 4.2-5.4 [facility] Serum creatinine measurement (mass/volume)Ordered By: [place] Conn on 03-09-2025 Creatinine [Mass/Vol] 0.74 mg/dL 0.70-1.20 [facility] Serum globulin measurementOr dered By: [place] Conn on 03-09-2025 Globulin (S) [Mass/Vol] 3.3 g/dL 2.2-4.2 [facility] Serum glucose measurement (m ass/volume)Ordered By: [place] Conn on 03-09-2025 Glucose [Mass/Vol] 101 mg/dL High 70-99 [facility] Serum or plasma alanine rojo otransferase (ALT) measurementOrdered By: [place] on 03-09-2025 ALT [Catalytic activity/Vol] 26 U/L <35 [facility] Serum or plasma albumin alfredo urement (mass/volume)Ordered By: [place] Conn on 03-09-2025 Albumin [Mass/Vol] 4.1 g/dL 3.4-4.8 [facility] Serum or plasma albumin/glob ulin mass ratioOrdered By: [place] Conn on 03-09-2025 Albumin/Globulin [Mass ratio] 1.3 {ratio} 0.9-2.4 [facility] Serum or plasma alkaline marisabel sphatase measurementOrdered By: [place] on 03-09-2025 ALP [Catalytic activity/Vol] 73 U/L 35-104 [facility] Serum or plasma calcium alfredo urement (mass/volume)Ordered By: [place] on 03-09-2025 Calcium [Mass/Vol] 9.8 mg/dL 7.6-11.0 [facility] Serum or plasma carcinoembry onic antigen measurement (mass/volume)Ordered By: [place] Conn on 03-09-2025 Carcinoembryonic Ag [Mass/Vol] 6.3 ng/mL High 0.0-4.7 [facility] Comment on above: Nonsmokers <3.9 Smok ers <5.6[employer] Electrochemiluminescence Immunoassay(ECLIA)Values obtained with different assay methods or kitscannot be used interchangeably. Results cannot beinterpreted as absolute evidence of the presence orabsence of malignant disease.Performed at: [facility] [place], [place] [address] Director: Abimael Sheridan PhD, Phone: [phone] Serum or plasma urea nitroge n measurement (mass/volume)Ordered By: [place] on 03-09-2025 Urea nitrogen [Mass/Vol] 15 mg/dL 4-19 [facility] Sodium levelOrdered By: Kurt mejia [place] on 03-09-2025 Sodium [Moles/Vol] 139 mmol/L 133-145 [facility] Total proteinOrdered By: Shady burroughs [place] on 03-09-2025 Protein [Mass/Vol] 7.4 g/dL 5.9-8.4 [facility] White blood cell (WBC) count Ordered By: [place] on 03-09-2025 WBC (Bld) [#/Vol] 7.7 10*3/uL 4.4-11.0 [facility] CBC,PLATELETSon 01-28-2025 Erythrocyte distribution width (RBC) [Ratio] 13.1 % 10.8 - 14.9 % [facility] Hematocrit (Bld) [Volume fraction] 36.4 % 34.9 - 44.3 % [facility] Hemoglobin (Bld) [Mass/Vol] 12.1 g/dL 11.4 - 15.2 g/dL [facility] Interpretation and review of laboratory results Abnormal [facility] MCH (RBC) [Entitic mass] 30.3 pg 25.9 - 33.[address] [facility] MCHC (RBC) [Mass/Vol] 33.2 g/dL 31.4 - 35.9 g/dL [facility] MCV (RBC) [Entitic vol] 91 fL 79.6 - 97.[address] [facility] Platelet mean volume (Bld) [Entitic vol] 8.8 fL 8.5 - 12.[address] [facility] Platelets (Bld) [#/Vol] 377 10*3/uL 150 - 393 K/uL [facility] RBC (Bld) [#/Vol] 4 10*6/uL [facility] WBC (Bld) [#/Vol] 11.33 10*3/uL High 3.99 - 11.19 K/uL [facility] Hematocrit (Bld) [Volume fraction] 36.4 % Normal 34.9-44.3 [facility] Comment on above: Performed By: #### H EMOGC #### [facility] (DEFAULT) [address] [address] Hemoglobin (Bld) [Mass/Vol] 12.1 g/dL Normal 11.4-15.2 [facility] Comment on above: Performed By: #### H EMOGC #### [facility] (DEFAULT) [address] [address] MCV (RBC) [Entitic vol] 91.0 fL Normal 79.6-97.7 [facility] Comment on above: Performed By: #### H EMOGC #### [facility] (DEFAULT) [address] [address] Mean Cell Hgb 30.3 pg Normal 25.9-33.9 [facility] Comment on above: Performed By: #### H EMOGC #### [facility] (DEFAULT) [address] [address] Mean Cell Hgb Conc 33.2 g/dL Normal 31.4-35.9 [facility] Comment on above: Performed By: #### H EMOGC #### [facility] (DEFAULT) [address] [address] Platelet mean volume (Bld) [Entitic vol] 8.8 fL Normal 8.5-12.2 [facility] Comment on above: Performed By: #### H EMOGC #### [facility] (DEFAULT) [address] [address] Platelets (Bld) [#/Vol] 377 10*3/uL Normal 150-393 [facility] Comment on above: Performed By: #### H EMOGC #### [facility] (DEFAULT) [address] [place] [address] RBC (Bld) [#/Vol] 4.00 10*6/uL Normal 3.91-5.04 [facility] Comment on above: Performed By: #### H [facility] #### [facility] (DEFAULT) [address] [place] [address] RBC Distribution 13.1 % Normal 10.8-14.9 [facility] Comment on above: Performed By: #### H [facility] #### [facility] (DEFAULT) [address] [place] [address] WBC (Bld) [#/Vol] 11.33 10*3/uL High 3.99-11.19 [facility] Comment on above: Performed By: #### H [facility] #### [facility] (DEFAULT) [address] [place] [address] CHEM 7 (LYTES,BUN,CREA,GLUC) on 01-28-2025 Anion gap [Moles/Vol] 11 mmol/L 7 - 17 mmol/L [facility] Chloride [Moles/Vol] 104 mmol/L 98 - 10 8 mmol/L [facility] CO2 [Moles/Vol] 25 mmol/L 21 - 31 mmol/L [facility] Creatinine [Mass/Vol] 0.66 mg/dL 0.50 - 1.20 mg/dL [facility] eGFR, CKD-EPI, Female - PINF [facility] Comment on above: Reported eGFR is bas ed on the CKD-EPI 2020 equation using creatinine, age, and sex. Glucose [Mass/Vol] 98 mg/dL 70 - 179 mg/dL [facility] Osmolality Calc [Osmolality] [address] [facility] Potassium [Moles/Vol] 4.2 mmol/L 3.5 - 5.0 mmol/L [facility] Sodium [Moles/Vol] 136 mmol/L 135 - 145 mmol/L [facility] Urea nitrogen [Mass/Vol] 10 mg/dL 7 - 25 mg/dL [facility] Urea nitrogen/Creatinine [Mass ratio] 15 mg/mg [facility] Anion gap [Moles/Vol] 11 mmol/L Normal 7-17 [facility] Comment on above: Performed By: #### MILAGRO HUNT, CHM7 #### [facility] (DEFAULT) [address] [place] [address] Chloride [Moles/Vol] 104 mmol/L Normal 98-108 [facility] Comment on above: Performed By: #### MILAGRO HUNT, CHM7 #### [facility] (DEFAULT) [address] [place] [address] CO2 [Moles/Vol] 25 mmol/L Normal 21-31 [facility] Comment on above: Performed By: #### MILAGRO HUNT, CHM7 #### [facility] (DEFAULT) [address] [place] [address] Creatinine [Mass/Vol] 0.66 mg/dL Normal 0.50-1.20 [facility] Comment on above: Performed By: #### MILAGRO HUNT, CHM7 #### [facility] (DEFAULT) [address] [place] [address] eGFR, CKD-EPI, Female > Normal >=60 [facility] Comment on above: Result Comment: Repo rted eGFR is based on the CKD-EPI 2020 equation using creatinine, age, and sex. Performed By: #### MILAGRO HUNT, CHM7 #### [facility] (DEFAULT) [address] [place] [address] Glucose [Mass/Vol] 98 mg/dL Normal Nonfastin g : 70-179 mg/dL; Fastin-99 [facility] Comment on above: Performed By: #### MILAGRO HUNT, CHM7 #### [facility] (DEFAULT) [address] [place] [address] Osmolality [Osmolality] 285 mosm/kg Normal 278-305 [facility] Comment on above: Performed By: #### MILAGRO HUNT, CHM7 #### [facility] (DEFAULT) [address] [place] [address] Potassium [Moles/Vol] 4.2 mmol/L Normal 3.5-5.0 [facility] Comment on above: Performed By: #### MILAGRO HUNT, CHM7 #### [facility] (DEFAULT) [address] [place] [address] Sodium [Moles/Vol] 136 mmol/L Normal 135-145 [facility] Comment on above: Performed By: #### MILAGRO HUNT CHM7 #### [facility] (DEFAULT) [address] [place] [address] Urea nitrogen [Mass/Vol] 10 mg/dL Normal 7-25 [facility] Comment on above: Performed By: #### MILAGRO HUNT CHM7 #### [facility] (DEFAULT) [address] [place] [address] Urea nitrogen/Creatinine [Mass ratio] 15 mg/mg Normal [facility] Comment on above: Performed By: #### MILAGRO HUNT, CHM7 #### [facility] (DEFAULT) [address] [place] [address] MAGNESIUMon 01-28-2025 Magnesium [Mass/Vol] 1.8 mg/dL 1.6 - 2 .6 mg/dL [facility] Magnesium [Mass/Vol] 1.8 mg/dL Normal 1.6-2.6 [facility] Comment on above: Performed By: #### MILAGRO HUNT, CHM7 #### [facility] (DEFAULT) [address] [place] [address] No Panel Informationon 01-28 Interpretation and review of laboratory results Normal [facility] PHOSPHATE, INORGANICon 01-28 Phosphate [Mass/Vol] 3.2 mg/dL 2.2 - 4 .6 mg/dL [facility] Phosphorous 3.2 mg/dL Normal 2.2-4.6 [facility] Comment on above: Performed By: #### M POORNIMA, MILAGRO, CHM7 #### [facility] (DEFAULT) [address] [place] [address] XR ABDOMEN 1 VIEW PORTABLEon 01-28-2025 XR ABDOMEN 1 VIEW PORTABLE EXAM: XR ABDOMEN 1 VIEW PORTABLE, 01/28/2025 03:42 AM COMPARISON: XR ABDOMEN 1 VIEW PORTABLE January 27, 2025 CLINICAL INDICATIONS: Comparison to prior KUB FINDINGS: Tubes: None. Bowel gas pattern: Increased mild gaseous distention of small bowel, measuring up to 3.3 cm. No visible colonic gas aside from a small amount of gas in the rectum. No visible free air. Abnormal calcifications/Radiopaciti es: Extensive subcutaneous emphysema. Bones: No acute abnormality. Other findings: None. IMPRESSION: Worsening probable postoperative ileus versus less likely obstruction. Normal [facility] XR Abdomen Single viewon IMPRESSION: Worsening probable postoperative ileus versus less likely obstruction. OLOGY EXAM: XR ABDOMEN 1 V IEW PORTABLE, 01/28/2025 03:42 AM COMPARISON: XR ABDOMEN 1 VIEW PORTABLE January 27, 2025 CLINICAL INDICATIONS: Comparison to prior KUB FINDINGS: Tubes: None. Bowel gas pattern: Increased mild gaseous distention of small bowel, measuring up to 3.3 cm. No visible colonic gas aside from a small amount of gas in the rectum. No visible free air. Abnormal calcifications/Radiopaciti es: Extensive subcutaneous emphysema. Bones: No acute abnormality. Other findings: None. RADIOLOGY Katia Palencia MD - 01/28/2025 EXAM: XR ABDOMEN 1 VIEW PORTABLE, 01/28/2025 03:42 AM COMPARISON: XR ABDOMEN 1 VIEW PORTABLE January 27, 2025 CLINICAL INDICATIONS: Comparison to prior KUB FINDINGS: Tubes: None. Bowel gas pattern: Increased mild gaseous distention of small bowel, measuring up to 3.3 cm. No visible colonic gas aside from a small amount of gas in the rectum. No visible free air. Abnormal calcifications/Radiopaciti es: Extensive subcutaneous emphysema. Bones: No acute abnormality. Other findings: None. IMPRESSION IMPRESSION: Worsening probable postoperative ileus versus less likely obstruction. [facility] Radiology Study observation (narrative) [facility] XR Abdomen Single viewOrdere d By: Katia Palencia on 01-28-[address] [facility] Work Phone: CBC,PLATELETSon 01-27-2025 Erythrocyte distribution width (RBC) [Ratio] 13.2 % 10.8 - 14.9 % [facility] Hematocrit (Bld) [Volume fraction] 37.2 % 34.9 - 44.3 % [facility] Hemoglobin (Bld) [Mass/Vol] 11.7 g/dL 11.4 - 15.2 g/dL [facility] Interpretation and review of laboratory results Abnormal [facility] MCH (RBC) [Entitic mass] 29.2 pg 25.9 - 33.[address] [facility] MCHC (RBC) [Mass/Vol] 31.5 g/dL 31.4 - 35.9 g/dL [facility] MCV (RBC) [Entitic vol] 92.8 fL 79.6 - 97.[address] [facility] Platelet mean volume (Bld) [Entitic vol] 9.8 fL 8.5 - 12.[address] [facility] Platelets (Bld) [#/Vol] 379 10*3/uL 150 - 393 K/uL [facility] RBC (Bld) [#/Vol] 4.01 10*6/uL [facility] WBC (Bld) [#/Vol] 11.95 10*3/uL High 3.99 - 11.19 K/uL [facility] Hematocrit (Bld) [Volume fraction] 37.2 % Normal 34.9-44.3 [facility] Comment on above: Performed By: #### [facility] #### [facility] (DEFAULT) [address] [address] Hemoglobin (Bld) [Mass/Vol] 11.7 g/dL Normal 11.4-15.2 [facility] Comment on above: Performed By: #### H EMOGC #### [facility] (DEFAULT) [address] [address] MCV (RBC) [Entitic vol] 92.8 fL Normal 79.6-97.7 [facility] Comment on above: Performed By: #### H EMOGC #### [facility] (DEFAULT) [address] [address] Mean Cell Hgb 29.2 pg Normal 25.9-33.9 [facility] Comment on above: Performed By: #### H EMOGC #### [facility] (DEFAULT) [address] [address] Mean Cell Hgb Conc 31.5 g/dL Normal 31.4-35.9 [facility] Comment on above: Performed By: #### H EMOGC #### [facility] (DEFAULT) [address] [address] Platelet mean volume (Bld) [Entitic vol] 9.8 fL Normal 8.5-12.2 [facility] Comment on above: Performed By: #### H EMOGC #### [facility] (DEFAULT) [address] [address] Platelets (Bld) [#/Vol] 379 10*3/uL Normal 150-393 [facility] Comment on above: Performed By: #### H EMOGC #### [facility] (DEFAULT) [address] [address] RBC (Bld) [#/Vol] 4.01 10*6/uL Normal 3.91-5.04 [facility] Comment on above: Performed By: #### H EMOGC #### [facility] (DEFAULT) [address] [place] [address] RBC Distribution 13.2 % Normal 10.8-14.9 [facility] Comment on above: Performed By: #### [facility] #### [facility] (DEFAULT) [address] [place] [address] WBC (Bld) [#/Vol] 11.95 10*3/uL High 3.99-11.19 [facility] Comment on above: Performed By: #### [facility] #### [facility] (DEFAULT) [address] [place] [address] CHEM 7 (LYTES,BUN,CREA,GLUC) on 01-27-2025 Anion gap [Moles/Vol] 12 mmol/L 7 - 17 mmol/L [facility] Chloride [Moles/Vol] 105 mmol/L 98 - 10 8 mmol/L [facility] CO2 [Moles/Vol] 23 mmol/L 21 - 31 mmol/L [facility] Creatinine [Mass/Vol] 0.85 mg/dL 0.50 - 1.20 mg/dL [facility] eGFR, CKD-EPI, Female 70 - PINF [facility] Comment on above: Reported eGFR is bas ed on the CKD-EPI 2020 equation using creatinine, age, and sex. Glucose [Mass/Vol] 84 mg/dL 70 - 179 mg/dL [facility] Osmolality Calc [Osmolality] [address] [facility] Potassium [Moles/Vol] 4 mmol/L 3.5 - 5.0 mmol/L [facility] Sodium [Moles/Vol] 136 mmol/L 135 - 145 mmol/L [facility] Urea nitrogen [Mass/Vol] 12 mg/dL 7 - 25 mg/dL [facility] Urea nitrogen/Creatinine [Mass ratio] 14 mg/mg [facility] Anion gap [Moles/Vol] 12 mmol/L Normal 7-17 [facility] Comment on above: Performed By: #### [facility] #### [facility] (DEFAULT) [address] [address] Chloride [Moles/Vol] 105 mmol/L Normal 98-108 [facility] Comment on above: Performed By: #### H EMO #### [facility] (DEFAULT) [address] [address] CO2 [Moles/Vol] 23 mmol/L Normal 21-31 [facility] Comment on above: Performed By: #### H EMOGC #### [facility] (DEFAULT) [address] [address] Creatinine [Mass/Vol] 0.85 mg/dL Normal 0.50-1.20 [facility] Comment on above: Performed By: #### [facility] #### [facility] (DEFAULT) [address] [address] GFR/1.73 sq M.predicted among non-blacks MDRD (S/P/Bld) [Vol rate/Area] 71 mL/min/{1.73_m2} Normal >=60 [facility] Comment on above: Result Comment: Repo rted eGFR is based on the CKD-EPI 2020 equation using creatinine, age, and sex. Performed By: #### [facility] #### [facility] (DEFAULT) [address] [address] Glucose [Mass/Vol] 84 mg/dL Normal Nonfastin g : 70-179 mg/dL; Fastin-99 [facility] Comment on above: Performed By: #### H EMO #### [facility] (DEFAULT) [address] [address] Osmolality [Osmolality] 284 mosm/kg Normal 278-305 [facility] Comment on above: Performed By: #### H EMOGC #### [facility] (DEFAULT) [address] [address] Potassium [Moles/Vol] 4.0 mmol/L Normal 3.5-5.0 [facility] Comment on above: Performed By: #### H EMOGC #### [facility] (DEFAULT) [address] [place] [address] Sodium [Moles/Vol] 136 mmol/L Normal 135-145 [facility] Comment on above: Performed By: #### H EMOGC #### [facility] (DEFAULT) [address] [place] [address] Urea nitrogen [Mass/Vol] 12 mg/dL Normal 7-25 [facility] Comment on above: Performed By: #### H EMO #### [facility] (DEFAULT) [address] [place] [address] Urea nitrogen/Creatinine [Mass ratio] 14 mg/mg Normal [facility] Comment on above: Performed By: #### H EMO #### [facility] (DEFAULT) [address] [place] [address] MAGNESIUMon 01-27-2025 Magnesium [Mass/Vol] 2.1 mg/dL 1.6 - 2 .6 mg/dL [facility] Magnesium [Mass/Vol] 2.1 mg/dL Normal 1.6-2.6 [facility] Comment on above: Performed By: #### H EMO #### [facility] (DEFAULT) [address] [place] [address] No Panel Informationon 01-27 Interpretation and review of laboratory results Normal [facility] PHOSPHATE, INORGANICon 01-27 Phosphate [Mass/Vol] 3.5 mg/dL 2.2 - 4 .6 mg/dL [facility] Phosphorous 3.5 mg/dL Normal 2.2-4.6 [facility] Comment on above: Performed By: #### H EMO #### [facility] (DEFAULT) [address] [place] [address] XR ABDOMEN 1 VIEW PORTABLEon 01-27-2025 XR ABDOMEN 1 VIEW PORTABLE EXAM: XR ABDOMEN 1 VIEW PORTABLE, 01/27/2025 07:58 AM COMPARISON: Abdominal radiograph dated January 25, 2025. CLINICAL INDICATIONS: Comparsion to prior KUB. Still remains mildly bloated and full feeling. FINDINGS: Tubes: None. Bowel gas pattern: Persistent mild diffuse small bowel gaseous dilatation. No abnormal large bowel dilatation. No visible free air. Abnormal calcifications/Radiopaciti es: None. Bones: No acute abnormality. Spinal degenerative changes. Other findings: Extensive body wall subcutaneous emphysema. IMPRESSION: Unchanged small bowel ileus. Normal [facility] XR Abdomen Single viewon IMPRESSION: Unchanged small bowel ileus. OLOGY EXAM: XR ABDOMEN 1 V IEW PORTABLE, 01/27/2025 07:58 AM COMPARISON: Abdominal radiograph dated January 25, 2025. CLINICAL INDICATIONS: Comparsion to prior KUB. Still remains mildly bloated and full feeling. FINDINGS: Tubes: None. Bowel gas pattern: Persistent mild diffuse small bowel gaseous dilatation. No abnormal large bowel dilatation. No visible free air. Abnormal calcifications/Radiopaciti es: None. Bones: No acute abnormality. Spinal degenerative changes. Other findings: Extensive body wall subcutaneous emphysema. RADIOLOGY Maria Victoria Vaca MD - 01/27/2025 EXAM: XR ABDOMEN 1 VIEW PORTABLE, 01/27/2025 07:58 AM COMPARISON: Abdominal radiograph dated January 25, 2025. CLINICAL INDICATIONS: Comparsion to prior KUB. Still remains mildly bloated and full feeling. FINDINGS: Tubes: None. Bowel gas pattern: Persistent mild diffuse small bowel gaseous dilatation. No abnormal large bowel dilatation. No visible free air. Abnormal calcifications/Radiopaciti es: None. Bones: No acute abnormality. Spinal degenerative changes. Other findings: Extensive body wall subcutaneous emphysema. IMPRESSION IMPRESSION: Unchanged small bowel ileus. [facility] Radiology Study observation (narrative) [facility] XR Abdomen Single viewOrdere d By: Maria Victoria Vaca on 01-27-[address] [facility] Work Phone: CARDIAC RHYTHMon 01-26-[address] [facility] CBC,PLATELETSon 01-26-2025 Erythrocyte distribution width (RBC) [Ratio] 12.8 % 10.8 - 14.9 % [facility] Hematocrit (Bld) [Volume fraction] 39.2 % 34.9 - 44.3 % [facility] Hemoglobin (Bld) [Mass/Vol] 12.6 g/dL 11.4 - 15.2 g/dL [facility] Interpretation and review of laboratory results Abnormal [facility] MCH (RBC) [Entitic mass] 29.2 pg 25.9 - 33.[address] [facility] MCHC (RBC) [Mass/Vol] 32.1 g/dL 31.4 - 35.9 g/dL [facility] MCV (RBC) [Entitic vol] 91 fL 79.6 - 97.[address] [facility] Platelet mean volume (Bld) [Entitic vol] 9.2 fL 8.5 - 12.[address] [facility] Platelets (Bld) [#/Vol] 355 10*3/uL 150 - 393 K/uL [facility] RBC (Bld) [#/Vol] 4.31 10*6/uL [facility] WBC (Bld) [#/Vol] 11.52 10*3/uL High 3.99 - 11.19 K/uL [facility] Hematocrit (Bld) [Volume fraction] 39.2 % Normal 34.9-44.3 [facility] Comment on above: Performed By: #### MILAGRO HUNT, ANITAM7 #### [facility] (DEFAULT) [address] [place] [address] Hemoglobin (Bld) [Mass/Vol] 12.6 g/dL Normal 11.4-15.2 [facility] Comment on above: Performed By: #### MILAGRO HUNT, ANITAM7 #### [facility] (DEFAULT) [address] [place] [address] MCV (RBC) [Entitic vol] 91.0 fL Normal 79.6-97.7 [facility] Comment on above: Performed By: #### M POORNIMA IPB, CHM7 #### [facility] (DEFAULT) [address] [address] Mean Cell Hgb 29.2 pg Normal 25.9-33.9 [facility] Comment on above: Performed By: #### M POORNIMA, IPB, CHM7 #### [facility] (DEFAULT) [address] [address] Mean Cell Hgb Conc 32.1 g/dL Normal 31.4-35.9 [facility] Comment on above: Performed By: #### Miracle NOGUERA IPB, CHM7 #### [facility] (DEFAULT) [address] [address] Platelet mean volume (Bld) [Entitic vol] 9.2 fL Normal 8.5-12.2 [facility] Comment on above: Performed By: #### Miracle NOGUERA, IPB, CHM7 #### [facility] (DEFAULT) [address] [address] Platelets (Bld) [#/Vol] 355 10*3/uL Normal 150-393 [facility] Comment on above: Performed By: #### M POORNIMA, IPB, CHM7 #### [facility] (DEFAULT) [address] [address] RBC (Bld) [#/Vol] 4.31 10*6/uL Normal 3.91-5.04 [facility] Comment on above: Performed By: #### M GO, IPB, CHM7 #### [facility] (DEFAULT) [address] [address] RBC Distribution 12.8 % Normal 10.8-14.9 [facility] Comment on above: Performed By: #### M GO, IPB, CHM7 #### [facility] (DEFAULT) [address] [address] WBC (Bld) [#/Vol] 11.52 10*3/uL High 3.99-11.19 [facility] Comment on above: Performed By: #### MILAGRO HUNT CHM7 #### [facility] (DEFAULT) [address] [place], [place] [address] CHEM 7 (LYTES,BUN,CREA,GLUC) on 01-26-2025 Anion gap [Moles/Vol] 9 mmol/L 7 - 17 mmol/L [facility] Chloride [Moles/Vol] 105 mmol/L 98 - 10 8 mmol/L [facility] CO2 [Moles/Vol] 27 mmol/L 21 - 31 mmol/L [facility] Creatinine [Mass/Vol] 0.53 mg/dL 0.50 - 1.20 mg/dL [facility] eGFR, CKD-EPI, Female - PINF [facility] Comment on above: Reported eGFR is bas ed on the CKD-EPI 2020 equation using creatinine, age, and sex. Glucose [Mass/Vol] 109 mg/dL 70 - 179 mg/dL [facility] Osmolality Calc [Osmolality] [address] [facility] Potassium [Moles/Vol] 4.3 mmol/L 3.5 - 5.0 mmol/L [facility] Sodium [Moles/Vol] 137 mmol/L 135 - 145 mmol/L [facility] Urea nitrogen [Mass/Vol] 9 mg/dL 7 - 25 mg/dL [facility] Urea nitrogen/Creatinine [Mass ratio] 17 mg/mg [facility] Anion gap [Moles/Vol] 9 mmol/L Normal 7-17 [facility] Comment on above: Performed By: #### MILAGRO HUNT CHM7 #### [facility] (DEFAULT) [address] [place] [address] Chloride [Moles/Vol] 105 mmol/L Normal 98-108 [facility] Comment on above: Performed By: #### MILAGRO HUNT CHM7 #### [facility] (DEFAULT) [address] [place] [address] CO2 [Moles/Vol] 27 mmol/L Normal 21-31 [facility] Comment on above: Performed By: #### MILAGRO HUNT CHM7 #### [facility] (DEFAULT) [address] [place] [address] Creatinine [Mass/Vol] 0.53 mg/dL Normal 0.50-1.20 [facility] Comment on above: Performed By: #### MILAGRO HUNT CHM7 #### [facility] (DEFAULT) [address] [place] [address] eGFR, CKD-EPI, Female > Normal >=60 [facility] Comment on above: Result Comment: Repo rted eGFR is based on the CKD-EPI 2020 equation using creatinine, age, and sex. Performed By: #### MILAGRO HUNT CHM7 #### [facility] (DEFAULT) [address] [place] [address] Glucose [Mass/Vol] 109 mg/dL Normal Nonfastin g : 70-179 mg/dL; Fastin-99 [facility] Comment on above: Performed By: #### MILAGRO HUNT CHM7 #### [facility] (DEFAULT) [address] [place] [address] Osmolality [Osmolality] 287 mosm/kg Normal 278-305 [facility] Comment on above: Performed By: #### MILAGRO HUNT CHM7 #### [facility] (DEFAULT[facility] [address] [place] [address] Potassium [Moles/Vol] 4.3 mmol/L Normal 3.5-5.0 [facility] Comment on above: Performed By: #### MILAGRO HUNT CHM7 #### [facility] (DEFAULT) [address] [place] [address] Sodium [Moles/Vol] 137 mmol/L Normal 135-145 [facility] Comment on above: Performed By: #### MILAGRO HUNT CHM7 #### [facility] (DEFAULT) [address] [place] [address] Urea nitrogen [Mass/Vol] 9 mg/dL Normal 7-25 [facility] Comment on above: Performed By: #### MILAGRO HUNT, CHM7 #### [facility] (DEFAULT) [address] [place] [address] Urea nitrogen/Creatinine [Mass ratio] 17 mg/mg Normal [facility] Comment on above: Performed By: #### MILAGRO HUNT, CHM7 #### [facility] (DEFAULT) [address] [place] [address] MAGNESIUMon 01-26-2025 Magnesium [Mass/Vol] 2.2 mg/dL 1.6 - 2 .6 mg/dL [facility] Magnesium [Mass/Vol] 2.2 mg/dL Normal 1.6-2.6 [facility] Comment on above: Performed By: #### MILAGRO HUNT CHMNegro #### [facility] (DEFAULT) [address] [place] [address] No Panel Informationon 01-26 Interpretation and review of laboratory results Normal [facility] PHOSPHATE, INORGANICon 01-26 Phosphate [Mass/Vol] 2.6 mg/dL 2.2 - 4 .6 mg/dL [facility] Phosphorous 2.6 mg/dL Normal 2.2-4.6 [facility] Comment on above: Performed By: #### MILAGRO HUNT, CHM7 #### [facility] (DEFAULT) [address] [place] [address] CBC,PLATELETSon 01-25-2025 Erythrocyte distribution width (RBC) [Ratio] 12.7 % 10.8 - 14.9 % [facility] Hematocrit (Bld) [Volume fraction] 43.3 % 34.9 - 44.3 % [facility] Hemoglobin (Bld) [Mass/Vol] 14 g/dL 11.4 - 15.2 g/dL [facility] Interpretation and review of laboratory results Normal [facility] MCH (RBC) [Entitic mass] 29.3 pg 25.9 - 33.[address] [facility] MCHC (RBC) [Mass/Vol] 32.3 g/dL 31.4 - 35.9 g/dL [facility] MCV (RBC) [Entitic vol] 90.6 fL 79.6 - 97.[address] [facility] Platelet mean volume (Bld) [Entitic vol] 9.5 fL 8.5 - 12.[address] [facility] Platelets (Bld) [#/Vol] 330 10*3/uL 150 - 393 K/uL [facility] RBC (Bld) [#/Vol] 4.78 10*6/uL [facility] WBC (Bld) [#/Vol] 10.65 10*3/uL 3.99 - 11.19 K/uL [facility] Hematocrit (Bld) [Volume fraction] 43.3 % Normal 34.9-44.3 [facility] Comment on above: Performed By: #### [facility] #### [facility] (DEFAULT) [address] [address] Hemoglobin (Bld) [Mass/Vol] 14.0 g/dL Normal 11.4-15.2 [facility] Comment on above: Performed By: #### [facility] #### [facility] (DEFAULT) [address] [address] MCV (RBC) [Entitic vol] 90.6 fL Normal 79.6-97.7 [facility] Comment on above: Performed By: #### [facility] #### [facility] (DEFAULT) [address] [address] Mean Cell Hgb 29.3 pg Normal 25.9-33.9 [facility] Comment on above: Performed By: #### [facility] #### [facility] (DEFAULT) [address] [place] [address] Mean Cell Hgb Conc 32.3 g/dL Normal 31.4-35.9 [facility] Comment on above: Performed By: #### H EMOGC #### [facility] (DEFAULT) [address] [place] [address] Platelet mean volume (Bld) [Entitic vol] 9.5 fL Normal 8.5-12.2 [facility] Comment on above: Performed By: #### H EMOGC #### [facility] (DEFAULT) [address] [place] [address] Platelets (Bld) [#/Vol] 330 10*3/uL Normal 150-393 [facility] Comment on above: Performed By: #### H EMOGC #### [facility] (DEFAULT) [address] [place] [address] RBC (Bld) [#/Vol] 4.78 10*6/uL Normal 3.91-5.04 [facility] Comment on above: Performed By: #### H EMOGC #### [facility] (DEFAULT) [address] [place] [address] RBC Distribution 12.7 % Normal 10.8-14.9 [facility] Comment on above: Performed By: #### H EMOGC #### [facility] (DEFAULT) [address] [place] [address] WBC (Bld) [#/Vol] 10.65 10*3/uL Normal 3.99-11.19 [facility] Comment on above: Performed By: #### H EMOGC #### [facility] (DEFAULT) [address] [address] CHEM 7 (LYTES,BUN,CREA,GLUC) Ordered By: Randi Bonner on 01-25-2025 Anion gap [Moles/Vol] 13 mmol/L 7 - 17 mmol/L [facility] Chloride [Moles/Vol] 105 mmol/L 98 - 10 8 mmol/L [facility] CO2 [Moles/Vol] 26 mmol/L 21 - 31 mmol/L [facility] Creatinine [Mass/Vol] 0.76 mg/dL 0.50 - 1.20 mg/dL [facility] eGFR, CKD-EPI, Female 82 - PINF [facility] Comment on above: Reported eGFR is bas ed on the CKD-EPI 2020 equation using creatinine, age, and sex. Glucose [Mass/Vol] 94 mg/dL 70 - 179 mg/dL [facility] Osmolality Calc [Osmolality] [address] [facility] Potassium [Moles/Vol] 3.7 mmol/L 3.5 - 5.0 mmol/L [facility] Sodium [Moles/Vol] 140 mmol/L 135 - 145 mmol/L [facility] Urea nitrogen [Mass/Vol] 16 mg/dL 7 - 25 mg/dL [facility] Urea nitrogen/Creatinine [Mass ratio] 21 mg/mg [facility] CHEM 7 (LYTES,BUN,CREA,GLUC) on 01-25-2025 Anion gap [Moles/Vol] 13 mmol/L Normal 7-17 [facility] Comment on above: Performed By: #### MILAGRO HUNT, CHM7 #### [facility] (DEFAULT) [address] [place] [address] Chloride [Moles/Vol] 105 mmol/L Normal 98-108 [facility] Comment on above: Performed By: #### MILAGRO HUNT, CHM7 #### [facility] (DEFAULT) [address] [place] [address] CO2 [Moles/Vol] 26 mmol/L Normal 21-31 [facility] Comment on above: Performed By: #### MILAGRO HUNT, CHM7 #### [facility] (DEFAULT) [address] [place] [address] Creatinine [Mass/Vol] 0.76 mg/dL Normal 0.50-1.20 [facility] Comment on above: Performed By: #### MILAGRO HUNT CHM7 #### [facility] (DEFAULT) [address] [place] [address] GFR/1.73 sq M.predicted among non-blacks MDRD (S/P/Bld) [Vol rate/Area] 82 mL/min/{1.73_m2} Normal >=60 [facility] Comment on above: Result Comment: Repo rted eGFR is based on the CKD-EPI 2020 equation using creatinine, age, and sex. Performed By: #### MILAGRO HUNT CHM7 #### [facility] (DEFAULT) [address] [place] [address] Glucose [Mass/Vol] 94 mg/dL Normal Nonfastin g : 70-179 mg/dL; Fastin-99 [facility] Comment on above: Performed By: #### MILAGRO HUNT CHM7 #### [facility] (DEFAULT) [address] [place] [address] Osmolality [Osmolality] 293 mosm/kg Normal 278-305 [facility] Comment on above: Performed By: #### MILAGRO HUNT CHMiracle7 #### [facility] (DEFAULT) [address] [place] [address] Potassium [Moles/Vol] 3.7 mmol/L Normal 3.5-5.0 [facility] Comment on above: Performed By: #### MILAGRO HUNT CHM7 #### [facility] (DEFAULT) [address] [place] [address] Sodium [Moles/Vol] 140 mmol/L Normal 135-145 [facility] Comment on above: Performed By: #### MILAGRO HUNT CHMiracle7 #### [facility] (DEFAULT) [address] [place] [address] Urea nitrogen [Mass/Vol] 16 mg/dL Normal 7-25 [facility] Comment on above: Performed By: #### MILAGRO HUNT CHM7 #### [facility] (DEFAULT) [address] [place] [address] Urea nitrogen/Creatinine [Mass ratio] 21 mg/mg Normal [facility] Comment on above: Performed By: #### MILAGRO HUNT CHM7 #### [facility] (DEFAULT) [address] [place] [address] MAGNESIUMon 01-25-2025 Magnesium [Mass/Vol] 1.9 mg/dL 1.6 - 2 .6 mg/dL [facility] Magnesium [Mass/Vol] 1.9 mg/dL Normal 1.6-2.6 [facility] Comment on above: Performed By: #### MILAGRO HUNT CHM7 #### [facility] (DEFAULT) [address] [place] [address] No Panel Informationon 01-25 Interpretation and review of laboratory results Normal [facility] PHOSPHATE, INORGANICon 01-25 Phosphate [Mass/Vol] 2.8 mg/dL 2.2 - 4 .6 mg/dL [facility] Phosphorous 2.8 mg/dL Normal 2.2-4.6 [facility] Comment on above: Performed By: #### MILAGRO HUNT CHM7 #### [facility] (DEFAULT) [address] [place] [address] XR ABDOMEN 1 VIEW PORTABLEon 01-25-2025 XR ABDOMEN 1 VIEW PORTABLE EXAM: XR ABDOMEN 1 VIEW PORTABLE, 01/25/2025 18:53 PM COMPARISON: No priors available for comparison. CLINICAL INDICATIONS: emesis and nausea FINDINGS: Tubes: None. Bowel gas pattern: Mild diffuse gaseous distention of small bowel. No visible free air. Abnormal calcifications/Radiopaciti es: None. Bones: No acute abnormality. Other findings: Body wall emphysema likely postoperative. IMPRESSION: Mild diffuse gaseous distention of small bowel, suggesting ileus. Normal [facility] XR Abdomen Single viewon IMPRESSION: Mild diffuse gaseous distention of small bowel, suggesting ileus. OLOGY EXAM: XR ABDOMEN 1 V IEW PORTABLE, 01/25/2025 18:53 PM COMPARISON: No priors available for comparison. CLINICAL INDICATIONS: emesis and nausea FINDINGS: Tubes: None. Bowel gas pattern: Mild diffuse gaseous distention of small bowel. No visible free air. Abnormal calcifications/Radiopaciti es: None. Bones: No acute abnormality. Other findings: Body wall emphysema likely postoperative. RADIOLOGY Cali Suarez M D - 01/25/2025 EXAM: XR ABDOMEN 1 VIEW PORTABLE, 01/25/2025 18:53 PM COMPARISON: No priors available for comparison. CLINICAL INDICATIONS: emesis and nausea FINDINGS: Tubes: None. Bowel gas pattern: Mild diffuse gaseous distention of small bowel. No visible free air. Abnormal calcifications/Radiopaciti es: None. Bones: No acute abnormality. Other findings: Body wall emphysema likely postoperative. IMPRESSION IMPRESSION: Mild diffuse gaseous distention of small bowel, suggesting ileus. [facility] Radiology Study observation (narrative) [facility] XR Abdomen Single viewOrdere d By: Cali Suarez on 01-25-[address] [facility] Work Phone: CBC,PLATELETSon 01-24-2025 Erythrocyte distribution width (RBC) [Ratio] 12.5 % 10.8 - 14.9 % [facility] Hematocrit (Bld) [Volume fraction] 36.5 % 34.9 - 44.3 % [facility] Hemoglobin (Bld) [Mass/Vol] 11.9 g/dL 11.4 - 15.2 g/dL [facility] Interpretation and review of laboratory results Normal [facility] MCH (RBC) [Entitic mass] 29.5 pg 25.9 - 33.[address] [facility] MCHC (RBC) [Mass/Vol] 32.6 g/dL 31.4 - 35.9 g/dL [facility] MCV (RBC) [Entitic vol] 90.6 fL 79.6 - 97.[address] [facility] Platelet mean volume (Bld) [Entitic vol] 10.1 fL 8.5 - 12.[address] [facility] Platelets (Bld) [#/Vol] 279 10*3/uL 150 - 393 K/uL [facility] RBC (Bld) [#/Vol] 4.03 10*6/uL [facility] WBC (Bld) [#/Vol] 11.1 10*3/uL 3.99 - 11.19 K/uL [facility] Hematocrit (Bld) [Volume fraction] 36.5 % Normal 34.9-44.3 [facility] Comment on above: Performed By: #### MILAGRO HUNT CHM7 #### [facility] (DEFAULT) [address] [place] [address] [id number] Hemoglobin (Bld) [Mass/Vol] 11.9 g/dL Normal 11.4-15.2 [facility] Comment on above: Performed By: #### MILAGRO HUNT CHM7 #### [facility] (DEFAULT) [address] [place] [address] 25098 MCV (RBC) [Entitic vol] 90.6 fL Normal 79.6-97.7 [facility] Comment on above: Performed By: #### MILAGRO HUNT, CHM7 #### [facility] (DEFAULT) [address] [place] [address] 09298 Mean Cell Hgb 29.5 pg Normal 25.9-33.9 [facility] Comment on above: Performed By: #### MILAGRO HUNT, CHM7 #### [facility] (DEFAULT) [address] [place] [address] 20146 Mean Cell Hgb Conc 32.6 g/dL Normal 31.4-35.9 [facility] Comment on above: Performed By: #### MILAGRO HUNT, CHM7 #### [facility] (DEFAULT) [address] [place] [address] 36671 Platelet mean volume (Bld) [Entitic vol] 10.1 fL Normal 8.5-12.2 [facility] Comment on above: Performed By: #### MILAGRO HUNT, CHM7 #### [facility] (DEFAULT) [address] [place] [address] 80771 Platelets (Bld) [#/Vol] 279 10*3/uL Normal 150-393 [facility] Comment on above: Performed By: #### MILAGRO HUNT, CHM7 #### [facility] (DEFAULT) [address] [place] [address] 99841 RBC (Bld) [#/Vol] 4.03 10*6/uL Normal 3.91-5.04 [facility] Comment on above: Performed By: #### MILAGRO HUNT, CHM7 #### [facility] (DEFAULT) [address] [place] [address] 68761 RBC Distribution 12.5 % Normal 10.8-14.9 [facility] Comment on above: Performed By: #### MILAGRO HUNT, CHM7 #### [facility] (DEFAULT) [address] [place] [address] 97461 WBC (Bld) [#/Vol] 11.10 10*3/uL Normal 3.99-11.19 [facility] Comment on above: Performed By: #### MILAGRO HUNT, CHM7 #### [facility] (DEFAULT) [address] [place] [address] 96690 CHEM 7 (LYTES,BUN,CREA,GLUC) on 01-24-2025 Anion gap [Moles/Vol] 13 mmol/L 7 - 17 mmol/L [facility] Chloride [Moles/Vol] 102 mmol/L 98 - 10 8 mmol/L [facility] CO2 [Moles/Vol] 23 mmol/L 21 - 31 mmol/L [facility] Creatinine [Mass/Vol] 0.78 mg/dL 0.50 - 1.20 mg/dL [facility] eGFR, CKD-EPI, Female 79 - PINF [facility] Comment on above: Reported eGFR is bas ed on the CKD-EPI 2020 equation using creatinine, age, and sex. Glucose [Mass/Vol] 109 mg/dL 70 - 179 mg/dL [facility] Interpretation and review of laboratory results Abnormal [facility] Osmolality Calc [Osmolality] [address] [facility] Potassium [Moles/Vol] 5.3 mmol/L High 3.5 - 5.0 mmol/L [facility] Comment on above: Specimen slightly he molyzed. Potassium results may be falsey elevated by more than 0.5 mmol/L. Consider recollection. Sodium [Moles/Vol] 133 mmol/L Low 135 - 145 mmol/L [facility] Urea nitrogen [Mass/Vol] 13 mg/dL 7 - 25 mg/dL [facility] Urea nitrogen/Creatinine [Mass ratio] 17 mg/mg [facility] Anion gap [Moles/Vol] 13 mmol/L Normal 7-17 [facility] Comment on above: Performed By: #### MILAGRO HUNT CHM7 #### [facility] (DEFAULT) [address] [place] [address] Chloride [Moles/Vol] 102 mmol/L Normal 98-108 [facility] Comment on above: Performed By: #### MILAGRO HUNT CHM7 #### [facility] (DEFAULT) [address] [place] [address] CO2 [Moles/Vol] 23 mmol/L Normal 21-31 [facility] Comment on above: Performed By: #### MILAGRO HUNT CHM7 #### [facility] (DEFAULT) [address] [place] [address] Creatinine [Mass/Vol] 0.78 mg/dL Normal 0.50-1.20 [facility] Comment on above: Performed By: #### MILAGRO HUNT CHMiracle7 #### [facility] (DEFAULT) [address] [place] [address] 26505 GFR/1.73 sq M.predicted among non-blacks MDRD (S/P/Bld) [Vol rate/Area] 79 mL/min/{1.73_m2} Normal >=60 [facility] Comment on above: Result Comment: Repo rted eGFR is based on the CKD-EPI 2020 equation using creatinine, age, and sex. Performed By: #### MILAGRO HUNT CHM7 #### [facility] (DEFAULT) [address] [place] [address] 23885 Glucose [Mass/Vol] 109 mg/dL Normal Nonfastin g : 70-179 mg/dL; Fastin-99 [facility] Comment on above: Performed By: #### MILAGRO HUNT CHM7 #### [facility] (DEFAULT) [address] [place] [address] 78599 Osmolality [Osmolality] 283 mosm/kg Normal 278-305 [facility] Comment on above: Performed By: #### MILAGRO HUNT CHM7 #### [facility] (DEFAULT) [address] [place] [address] 95315 Potassium [Moles/Vol] 5.3 mmol/L High 3.5-5.0 [facility] Comment on above: Result Comment: Spec imen slightly hemolyzed. Potassium results may be falsey elevated by more than 0.5 mmol/L. Consider recollection. Performed By: #### MILAGRO HUNT CHMNegro #### [facility] (DEFAULT) [address] [place] [address] 61077 Sodium [Moles/Vol] 133 mmol/L Low 135-145 [facility] Comment on above: Performed By: #### MILAGRO HUNT CHM7 #### [facility] (DEFAULT) [address] [place] [address] 89076 Urea nitrogen [Mass/Vol] 13 mg/dL Normal 7-25 [facility] Comment on above: Performed By: #### MILAGRO HUNT CHM7 #### [facility] (DEFAULT) [address] [place] [address] 89220 Urea nitrogen/Creatinine [Mass ratio] 17 mg/mg Normal [facility] Comment on above: Performed By: #### MILAGRO HUNT CHM7 #### [facility] (DEFAULT) [address] [place] [address] 22963 MAGNESIUMon 01-24-2025 Magnesium [Mass/Vol] 1.8 mg/dL 1.6 - 2 .6 mg/dL [facility] Magnesium [Mass/Vol] 1.8 mg/dL Normal 1.6-2.6 [facility] Comment on above: Performed By: #### MILAGRO HUNT CHM7 #### [facility] (DEFAULT) [address] [place] [address] 85364 No Panel Informationon 01-24 Interpretation and review of laboratory results Normal [facility] PHOSPHATE, INORGANICon 01-24 Phosphate [Mass/Vol] 4.1 mg/dL 2.2 - 4 .6 mg/dL [facility] Phosphorous 4.1 mg/dL Normal 2.2-4.6 [facility] Comment on above: Performed By: #### MILAGRO HUNT CHM7 #### [facility] (DEFAULT) [address] [place] [address] 38356 ABORH TYPE RECONFIRMATIONon 01-23-2025 ABO/RH(D) TYPE Positive [facility] ABO/RH(D) TYPE Positive Normal [facility] Comment on above: Performed By: #### MILAGRO HUNT CHM7 #### [facility] (DEFAULT) [address] [place] [address] 87632 CONTINUOUS CARDIAC MONITORIN G STRIPon 01-23-[address] [facility] CONTINUOUS CARDIAC MONITORIN G STRIPOrdered By: Unassigned Pacs on 01-23-[address] [facility] Work Phone: [id number] PROMOTER METHYLATION, A CCESSIONINGon 01-23-2025 AP BLOCK/SLIDE ID [id number] [facility] Comment on above: Performed By: #### M GO, IPB, CHM7 #### [facility] (DEFAULT) [address] [place] [address] AP SLIDE SCANNED [facility] Comment on above: Performed By: #### M GO, IPB, CHM7 #### [facility] (DEFAULT) [address] [place] [address] APCP HISTOLOGY COMMENTS [facility] Comment on above: Performed By: #### M GO, IPB, CHM7 #### [facility] (DEFAULT) [address] [place] [address] SURG PATH REQUESTon 01-24-20 Case Report [facility] Comment on above: Result Comment: Surg ical Pathology Report Case: [id number] Authorizing Provider: AFRICA Thomas Collected: 01/23/2025 10:43 AM [facility] Received: 01/23/2025 11:35 AM Pathologist: AFRICA Mercado Specimen: SURG PATH, Right colon and terminal ileum Performed By: #### S URGP #### [facility] (DEFAULT) [address] [place] [address] Clinical History Malignant neoplasm o f ascending colon. Medical History: Malignant neoplasm of colon. Essential hypertension, benign. Hyperlipidemia. Arthritis. [facility] Comment on above: Performed By: #### S URGP #### [facility] (DEFAULT) [address] [place] [address] Gross Description [facility] Comment on above: Result Comment: The specimen is received in one properly labeled container with the patient's name and accession number. A. The specimen is designated right colon and terminal ileum and consists of a segment of large bowel and terminal ileum with attached pericolonic fat. The portion of terminal ileum is 15.5 cm in length with an average internal circumference of 3 cm and a wall thickness of 0.6 cm. The serosa is sofia-pink and smooth and the mucosa is sofia and finely granular with a regular folding pattern. The segment of large bowel and cecum measure 31.5 cm in length and ranges in internal circumference from 4 cm to 6.5 cm and a wall thickness of 0.7 cm. The serosal surface is sofia-pink and covered by lobulated adipose tissue and shows an area of puckering and induration at the level of the ascending colon. The serosal surface in the area of puckering is inked blue and the proximal and distal along with the mesenteric margins are inked green. Opening the specimen reveals a 6.3 x 4.0 x 2.0 cm sofia-brown fungating mass in the ascending colon with gross depth of invasion of 1.5 cm. The mass is 20.5 cm from the proximal resection margin and 22.5 cm from the distal resection margin. Cut sections of the mass reveal castro-white homogeneous cut surfaces invading the bowel wall. The mass abuts the inked serosal surface and is 2 cm from the mesenteric margin with possible linear spiculation into the pericolonic adipose. The remainder of the mucosal surface is unremarkable. The appendix is present and unremarkable measuring 3.7 cm in length and 0.5 cm in average diameter. A total of 25 lymph nodes are found in the pericolonic adipose, 10 lymph nodes are found near to the mass measuring from 1.1 x 0.7 x 0.4 cm to 2.3 x 1.8 x 1.5 cm. Cut sections of the larger nodes reveal fleshy sofia-pink cut surfaces with white discoloration suspicious for metastatic involvement. 15 lymph nodes are found distant to the mass measuring from 0.5 x 0.5 x 0.3 cm to 1.5 x 1.5 x 0.8 cm. Cut sections of the larger lymph nodes reveal unremarkable sofia-brown cut surfaces. (TP) RS 27 Cassettes: A1, proximal margin (shave) A2, distal margin (shave) A3, mass to inked serosal surface A4, mass to inked serosal surface and mesenteric margin A5, mass with possible linear spiculation into pericolonic adipose A6-A8, motor vehicle representative mass A9, random uninvolved large bowel A10, random uninvolved small bowel A11, appendix A12-A14, two lymph nodes each, near to mass, differentially inked, bisected A15-A16, one lymph node each, trisected A17, one lymph node, suspicious for metastatic involvement, trisected A18-A19, one lymph node, suspicious for metastatic involvement, quadrisected A20, three lymph nodes, distant to mass A21-A22, two lymph nodes each, distant to mass, differentially inked, bisected A23-A24, one lymph node each, distant to mass, trisected A25, three lymph nodes, distant to mass A26, two lymph nodes, distant to mass, bisected A27, one lymph node, distant to mass, quadrisected Lab Use Only: JobID [id number] Performed By: #### S URGP #### [facility] (DEFAULT) [address] [place] [address] Microscopic Description Normal [facility] Comment on above: Result Comment: A mi croscopic examination was performed. All controls show appropriate reactivity. All immunohistochemistry (IHC), in situ hybridization (SHAE), and histochemical tests were developed by and are performed at the [facility], Histology and IHC Lab, [address] [place] [address]. All Immunofluorescent (IF) tests were developed by and are performed at the [facility], Renal Division, [address] [place] [address]. All tests reported here, except for PD-L1, have not been cleared by or approved by the [place] Food and Drug Administration (FDA). The laboratory is regulated under CLIA as qualified to perform high-complexity testing. The tests are used for clinical purposes. They should not be regarded as investigational or for research. Performed By: #### S URGP #### [facility] (DEFAULT) [address] [place] [address] Pathologic Diagnosis Normal [facility] Comment on above: Result Comment: A. 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 Tumor infiltrates through muscularis propria, focally into pericolonic soft tissue. Small vessel lymphovascular invasion is identified. Metastatic carcinoma identified in six of twenty-seven lymph nodes (6/27). Resection margins are negative for carcinoma. Pathology stage: pT3/N2a. Terminal ileum, negative for malignancy. Appendix with fibrous obliteration of lumen, negative for malignancy. Comment: Mismatch Repair Protein (MMR) Nuclear Expression by IHC: (present/intact or absent/lost) MLH1: absent/lost PMS2: absent/lost MSH2: present/intact MSH6: present/intact IHC Interpretation: Loss of nuclear expression of MLH1 and PMS2: testing for methylation of the MLH1 promoter is requested. (the presence of MLH1 methylation suggests that the tumor is sporadic and germline evaluation is probably not indicated; absence of MLH1 methylation suggests the possibility of Gabreil syndrome, and sequencing and/or large deletion/duplication testing of germline MLH1 may be indicated)# # There are exceptions to the above IHC interpretations. These results should not be considered in isolation, and clinical correlation with genetic counseling is recommended to assess the need for germline testing. The mismatch repair proteins are evaluated by immunohistochemistry on formalin-fixed, paraffin-embedded tissue, using clone [id number] for MLH1, clone EP51 for PMS2, clone RED2 for MSH2, and clone EP49 for MSH6, and Tissue Lyndon Genie? Pro Detection Kit, DAB on the Debbie Tissue Lyndon Genie Advanced Staining System. Convincing nuclear staining in > 1% of tumor cells that is as strong as internal control is considered present/intact. Complete absence of nuclear staining in tumor cells in the presence of nuclear expression in internal control cells is considered absent/lost. Rarely a discrete area of a tumor can show loss of staining with retained nuclear expression in the adjacent tumor cells and internal control cells, which is regarded as subclonal loss and can also be of clinical significance. at 1813 EDT Performed By: #### S URGP #### [facility] (DEFAULT) [address] [place] [address] Professional Interpretation Performed at: [facility] Comment on above: Result Comment: [facility] For Immediate Release to Patient's MyChart? Yes [address] [place] [address] Performed By: #### S URGP #### [facility] (DEFAULT) [address] [place] [address] 07269 Synoptic Checklist Normal [facility] Comment on above: Result Comment: COLO N AND RECTUM: Resection COLON AND RECTUM: RESECTION - All Specimens 8th Edition - Protocol posted: 04/20/2024 SPECIMEN Procedure: Right hemicolectomy TUMOR Tumor Site: Ascending colon Histologic Type: Medullary adenocarcinoma Histologic Grade: G3, poorly differentiated Tumor Size: Greatest dimension (Centimeters): 6.3 cm Tumor Extent: Invades through muscularis propria into the pericolonic or perirectal tissue Macroscopic Tumor Perforation: Not identified Lymphatic and / or Vascular Invasion: Small vessel Perineural Invasion: Not identified Tumor Budding Score: High (10 or more) Type of Polyp in which Invasive Carcinoma Arose: None identified Treatment Effect: No known presurgical therapy MARGINS Margin Status for Invasive Carcinoma: All margins negative for invasive carcinoma Closest Margin(s) to Invasive Carcinoma: Mesenteric Distance from Invasive Carcinoma to Closest Margin: 2.3 cm Margin Status for Non-Invasive Tumor: All margins negative for high-grade dysplasia / intramucosal carcinoma and low-grade dysplasia REGIONAL LYMPH NODES Regional Lymph Node Status: : Tumor present in regional lymph node(s) Number of Lymph Nodes with Tumor: 6 Number of Lymph Nodes Examined: 27 Tumor Deposits: Not identified pTNM CLASSIFICATION (AJCC 8th Edition) Reporting of pT, pN, and (when applicable) pM categories is based on information available to the pathologist at the time the report is issued. As per the AJCC (Chapter 1, 8th Ed.) it is the managing physician's responsibility to establish the final pathologic stage based upon all pertinent information, including but potentially not limited to this pathology report. pT Category: pT3 pN Category: pN2a Performed By: #### S URGP #### [facility] (DEFAULT) [address] [place] [address] 16141 CBC AND ELECTRONIC DIFFon Basophils (Bld) [#/Vol] 0.06 10*3/uL 0.00 - 0.15 K/uL [facility] Basophils/100 WBC (Bld) 0.8 % [facility] Differential cell count method Nom (Bld) Electronic Differential O [facility] Eosinophils (Bld) [#/Vol] 0.33 10*3/uL 0.00 - 0.42 K/uL [facility] Eosinophils/100 WBC (Bld) 4.2 % [facility] Erythrocyte distribution width (RBC) [Ratio] 12.8 % 10.8 - 14.9 % [facility] Hematocrit (Bld) [Volume fraction] 43.6 % 34.9 - 44.3 % [facility] Hemoglobin (Bld) [Mass/Vol] 13.8 g/dL 11.4 - 15.2 g/dL [facility] Immature granulocytes (Bld) [#/Vol] K/uL NINF - 0.08 K/uL [facility] Immature granulocytes/100 WBC (Bld) 0.4 % [facility] Lymphocytes (Bld) [#/Vol] 1.98 10*3/uL 1.16 - 3.51 K/uL [facility] Lymphocytes/100 WBC (Bld) 25.4 % [facility] MCH (RBC) [Entitic mass] 29.4 pg 25.9 - 33.[address] [facility] MCHC (RBC) [Mass/Vol] 31.7 g/dL 31.4 - 35.9 g/dL [facility] MCV (RBC) [Entitic vol] 93 fL 79.6 - 97.[address] [facility] Monocytes (Bld) [#/Vol] 0.58 10*3/uL 0.22 - 0.87 K/uL [facility] Monocytes/100 WBC (Bld) 7.4 % [facility] Neutrophils (Bld) [#/Vol] 4.83 10*3/uL 1.64 - 7.28 K/uL [facility] Nucleated RBC/100 WBC (Bld) [Ratio] 0 % NINF [facility] Platelet mean volume (Bld) [Entitic vol] 10.2 fL 8.5 - 12.[address] [facility] Platelets (Bld) [#/Vol] 375 10*3/uL 150 - 393 K/uL [facility] RBC (Bld) [#/Vol] 4.69 10*6/uL [facility] Segmented neutrophils/100 WBC (Bld) 61.8 % [facility] WBC (Bld) [#/Vol] 7.81 10*3/uL 3.99 - 11.19 K/uL [facility] Basophils (Bld) [#/Vol] 0.06 10*3/uL Normal 0.00-0.15 [facility] Comment on above: Performed By: #### L [id number] #### [facility] (DEFAULT) [address] [place] [address] 66706 Basophils/100 WBC (Bld) 0.8 % Normal [facility] Comment on above: Performed By: #### L [id number] #### [facility] (DEFAULT) [address] [place] [address] 85469 DIFF STATUS Electronic Differential Normal [facility] Comment on above: Performed By: #### L [id number] #### [facility] (DEFAULT) [address] [place] [address] 80253 Eosinophils (Bld) [#/Vol] 0.33 10*3/uL Normal 0.00-0.42 [facility] Comment on above: Performed By: #### L [id number] #### [facility] (DEFAULT) [address] [place] [address] 17528 Eosinophils/100 WBC (Bld) 4.2 % Normal [facility] Comment on above: Performed By: #### L [id number] #### [facility] (DEFAULT) [address] [place] [address] 05072 Hematocrit (Bld) [Volume fraction] 43.6 % Normal 34.9-44.3 [facility] Comment on above: Performed By: #### L [id number] #### [facility] (DEFAULT) [address] [place] [address] 01602 Hemoglobin (Bld) [Mass/Vol] 13.8 g/dL Normal 11.4-15.2 [facility] Comment on above: Performed By: #### L [id number] #### [facility] (DEFAULT) [address] [address] Immature Grans % 0.4 % Normal [facility] Comment on above: Performed By: #### L [id number] #### [facility] (DEFAULT) [address] [address] Immature Grans Absolute < Normal <=0.08 [facility] Comment on above: Performed By: #### L [id number] #### [facility] (DEFAULT) [address] [address] Lymphocytes (Bld) [#/Vol] 1.98 10*3/uL Normal 1.16-3.51 [facility] Comment on above: Performed By: #### L [id number] #### [facility] (DEFAULT) [address] [address] Lymphocytes/100 WBC (Bld) 25.4 % Normal [facility] Comment on above: Performed By: #### L [id number] #### [facility] (DEFAULT) [address] [address] MCV (RBC) [Entitic vol] 93.0 fL Normal 79.6-97.7 [facility] Comment on above: Performed By: #### L [id number] #### [facility] (DEFAULT) [address] [address] Mean Cell Hgb 29.4 pg Normal 25.9-33.9 [facility] Comment on above: Performed By: #### L [id number] #### [facility] (DEFAULT) [address] [address] Mean Cell Hgb Conc 31.7 g/dL Normal 31.4-35.9 [facility] Comment on above: Performed By: #### L [id number] #### [facility] (DEFAULT) [address] [address] Monocytes (Bld) [#/Vol] 0.58 10*3/uL Normal 0.22-0.87 [facility] Comment on above: Performed By: #### L [id number] #### [facility] (DEFAULT) [address] [place] [address] 99486 Monocytes/100 WBC (Bld) 7.4 % Normal [facility] Comment on above: Performed By: #### L [id number] #### [facility] (DEFAULT) [address] [place] [address] 04561 Nucleated RBC 0.0 /100 WBC Normal <=0.2 [facility] Comment on above: Performed By: #### L [id number] #### [facility] (DEFAULT) [address] [place] [address]4740 Platelet mean volume (Bld) [Entitic vol] 10.2 fL Normal 8.5-12.2 [facility] Comment on above: Performed By: #### L [id number] #### [facility] (DEFAULT) [address] [place] [address] 20862 Platelets (Bld) [#/Vol] 375 10*3/uL Normal 150-393 [facility] Comment on above: Performed By: #### L [id number] #### [facility] (DEFAULT) [address] [place] [address] 76336 RBC (Bld) [#/Vol] 4.69 10*6/uL Normal 3.91-5.04 [facility] Comment on above: Performed By: #### L [id number] #### [facility] (DEFAULT) [address] [place] [address] 45329 RBC Distribution 12.8 % Normal 10.8-14.9 [facility] Comment on above: Performed By: #### L [id number] #### [facility] (DEFAULT) [address] [place] [address] 51679 Segs + Bands Auto 61.8 % Normal [facility] Comment on above: Performed By: #### L [id number] #### [facility] (DEFAULT) [address] [place] [address] Segs + Bands,Absolute Auto 4.83 K/uL Normal 1.64-7.28 [facility] Comment on above: Performed By: #### L [id number] #### [facility] (DEFAULT) [address] [place] [address] WBC (Bld) [#/Vol] 7.81 10*3/uL Normal 3.99-11.19 [facility] Comment on above: Performed By: #### L [id number] #### [facility] (DEFAULT) [address] [place] [address] COMPREHENSIVE METABOLIC PANE Anish 01-10-2025 Albumin [Mass/Vol] 4.2 g/dL 3.5 - 5.0 g/dL [facility] ALP [Catalytic activity/Vol] 55 U/L 32 - 126 U/L [facility] ALT [Catalytic activity/Vol] 16 U/L 9 - 48 U/L [facility] Anion gap [Moles/Vol] 14 mmol/L 7 - 17 mmol/L [facility] AST [Catalytic activity/Vol] 19 U/L 10 - 39 U/L [facility] Bilirubin [Mass/Vol] 0.4 mg/dL NINF - 1.5 mg/dL [facility] Calcium [Mass/Vol] 9.8 mg/dL 8.6 - 10. 5 mg/dL [facility] Chloride [Moles/Vol] 99 mmol/L 98 - 10 8 mmol/L [facility] CO2 [Moles/Vol] 30 mmol/L 21 - 31 mmol/L [facility] Creatinine [Mass/Vol] 0.68 mg/dL 0.50 - 1.20 mg/dL [facility] eGFR, CKD-EPI, Female - PINF [facility] Comment on above: Reported eGFR is bas ed on the CKD-EPI 2020 equation using creatinine, age, and sex. Glucose [Mass/Vol] 80 mg/dL 70 - 99 mg/dL [facility] Osmolality Calc [Osmolality] [address] [facility] Potassium [Moles/Vol] 4.3 mmol/L 3.5 - 5.0 mmol/L [facility] Protein [Mass/Vol] 7.4 g/dL 6.4 - 8.3 g/dL [facility] Sodium [Moles/Vol] 139 mmol/L 135 - 145 mmol/L [facility] Urea nitrogen [Mass/Vol] 17 mg/dL 7 - 25 mg/dL [facility] Urea nitrogen/Creatinine [Mass ratio] 25 mg/mg [facility] Albumin [Mass/Vol] 4.2 g/dL Normal 3.5-5.0 [facility] Comment on above: Performed By: #### M POORNIMA IPB, CHM7 #### [facility] (DEFAULT) [address] [place] [address] 69130 ALP [Catalytic activity/Vol] 55 U/L Normal 32-126 [facility] Comment on above: Performed By: #### M POORNIMA IPB, CHM7 #### [facility] (DEFAULT) [address] [place] [address] 03896 ALT [Catalytic activity/Vol] 16 U/L Normal 9-48 [facility] Comment on above: Performed By: #### M POORNIMA IPB, CHM7 #### [facility] (DEFAULT) [address] [place] [address] 91869 Anion gap [Moles/Vol] 14 mmol/L Normal 7-17 [facility] Comment on above: Performed By: #### M POORNIMA IPB, CHM7 #### [facility] (DEFAULT) [address] [place] [address] 52875 AST [Catalytic activity/Vol] 19 U/L Normal 10-39 [facility] Comment on above: Performed By: #### Miracle NOGUERA IPB, CHM7 #### [facility] (DEFAULT) [address] [place] [address] 77421 Bilirubin [Mass/Vol] 0.4 mg/dL Normal <1.5 [facility] Comment on above: Performed By: #### MILAGRO HUNT, CHM7 #### [facility] (DEFAULT) [address] [place] [address] 40004 Calcium [Mass/Vol] 9.8 mg/dL Normal 8.6-10.5 [facility] Comment on above: Performed By: #### MILAGRO HUNT, CHM7 #### [facility] (DEFAULT) [address] [place] [address] 05465 Chloride [Moles/Vol] 99 mmol/L Normal 98-108 [facility] Comment on above: Performed By: #### MILAGRO HUNT, CHM7 #### [facility] (DEFAULT) [address] [place] [address] 00282 CO2 [Moles/Vol] 30 mmol/L Normal 21-31 [facility] Comment on above: Performed By: #### MILAGRO HUNT, CHM7 #### [facility] (DEFAULT) [address] [place] [address] 75250 Creatinine [Mass/Vol] 0.68 mg/dL Normal 0.50-1.20 [facility] Comment on above: Performed By: #### MILAGRO HUNT, CHM7 #### [facility] (DEFAULT) [address] [place] [address] 79524 eGFR, CKD-EPI, Female > Normal >=60 [facility] Comment on above: Result Comment: Repo rted eGFR is based on the CKD-EPI 2020 equation using creatinine, age, and sex. Performed By: #### MILAGRO HUNT, CHM7 #### [facility] (DEFAULT) [address] [place] [address] 41275 Glucose [Mass/Vol] 80 mg/dL Normal 70-99 [facility] Comment on above: Performed By: #### MILAGRO HUNT, CHM7 #### [facility] (DEFAULT) [address] [place] [address] 73720 Osmolality [Osmolality] 292 mosm/kg Normal 278-305 [facility] Comment on above: Performed By: #### MILAGRO HUNT, CHM7 #### [facility] (DEFAULT) [address] [place] [address] 12168 Potassium [Moles/Vol] 4.3 mmol/L Normal 3.5-5.0 [facility] Comment on above: Performed By: #### MILAGRO HUNT, CHM7 #### [facility] (DEFAULT) [address] [place] [address] 41453 Protein [Mass/Vol] 7.4 g/dL Normal 6.4-8.3 [facility] Comment on above: Performed By: #### MILAGRO HUNT, CHM7 #### [facility] (DEFAULT) [address] [place] [address] 46153 Sodium [Moles/Vol] 139 mmol/L Normal 135-145 [facility] Comment on above: Performed By: #### MILAGRO HUNT, CHM7 #### [facility] (DEFAULT) [address] [place] [address] 58637 Urea nitrogen [Mass/Vol] 17 mg/dL Normal 7-25 [facility] Comment on above: Performed By: #### MILAGRO HUNT, CHM7 #### [facility] (DEFAULT) [address] [place] [address] 79467 Urea nitrogen/Creatinine [Mass ratio] 25 mg/mg Normal [facility] Comment on above: Performed By: #### MILAGRO HUNT, CHM7 #### [facility] (DEFAULT) [address] [place] [address] 54859 PREPARE TO TRANSFUSE OR RED BLOOD CELLSon 01-10-[address] [facility] PROTIME-INRon 01-10-2025 INR Coag (Bld) [Relative time] 0.9 {INR} 0.9 - 1.[address] [facility] Interpretation and review of laboratory results Normal [facility] PT Coag (PPP) [Time] 12.3 s [facility] INR Coag (PPP) [Relative time] 0.9 {INR} Normal 0.9-1.1 [facility] Comment on above: Performed By: #### MILAGRO HUNT CHM7 #### [facility] (DEFAULT) [address] [place] [address] 88430 PT Coag (PPP) [Time] 12.3 s Normal 11.9-14.2 [facility] Comment on above: Performed By: #### MILAGRO HUNT CHM7 #### [facility] (DEFAULT) [address] [place] [address] 69249 PTTon 01-10-2025 aPTT Coag (PPP) [Time] 24.6 s [facility] Interpretation and review of laboratory results Normal [facility] aPTT Coag (Bld) [Time] 24.6 s Normal 24.0-34.3 [facility] Comment on above: Performed By: #### MILAGRO HUNT, LAURA #### [facility] (DEFAULT) [address] [place] [address] 00407 TYPE AND SCREEN - PREADMISSI ONon 01-10-2025 ABO/RH(D) TYPE Positive [facility] Specimen Expiration 02/09/2025 23:59 [facility] ABO/RH(D) TYPE Positive Normal [facility] Comment on above: Performed By: #### X MPO #### [facility] (DEFAULT) [address] [place] [address] 85477 Specimen Expiration 01/26/2025 23:59 Normal [facility] Comment on above: Performed By: #### X MPO #### [facility] (DEFAULT) [address] [place] [address] CHEST WITH CONTRASTon CT CHEST WITH CONTRAST EXAM: CT CHEST WI TH CONTRAST COMPARISON: None CLINICAL INDICATIONS: colon cancer staging TECHNIQUE: IV contrast enhanced axial CT images of the chest 5 mm with 1 mm contiguous high-resolution, coronal MIP and sagittal MPR series. FINDINGS: No acute fracture or suspicious osseous lesion. Degenerative changes seen in the osseous structures. The soft tissues demonstrate no acute abnormality. There is no axillary, supraclavicular, mediastinal, or hilar lymphadenopathy. Normal appearance of the thyroid gland. No large central pulmonary embolus. The heart is normal in size without pericardial effusion. No thoracic aortic aneurysm or dissection. Coronary artery and aortic atherosclerosis. There is evidence of prior granulomatous disease. The upper abdomen is evaluated in detail on the same day separately dictated MRI abdomen. The central airways are patent. No pneumothorax or pleural effusion. There is evidence of prior granulomatous disease. No focal pulmonary consolidation. Solid noncalcified 6 x 4 mm left lower lobe pulmonary nodule. Solid noncalcified 3 mm subpleural left lower lobe pulmonary nodule. 3/235. IMPRESSION: 1. Two nonspecific pulmonary nodules in the left lung base measuring 6 mm and 3 mm. 2. No intrathoracic lymphadenopathy. Vivian Cyr M.D. This report has been electronically signed and verified by the Radiologist whose name is printed above. This report contains privileged and confidential information and is intended solely for the use of the individual or entity to which it is addressed. If you are not the intended recipient of this report, you are hereby notified that any copying, distribution, dissemination or action taken in relation to the contents of this report is strictly prohibited and may be unlawful. If you have received this report in error, please notify the sender immediately at [phone] and permanently delete the original report and destroy any copies or printouts. Normal [facility] MRI ABDOMEN WITH AND WITHOUT CONTRASTon 01-02-2025 MRI ABDOMEN WITH AND WITHOUT CONTRAST EXAM: MRI ABDOMEN WITH AND WITHOUT CONTRAST, 12/31/2024 09:00 AM CLINICAL INDICATIONS: Abnormal CT scan with liver / renal lesion in setting of colon cancer C18.2:Malignant neoplasm of ascending colon Sex: Female, Age: 74 years COMPARISON: CT abdomen pelvis from November 17, 2024 TECHNIQUE: Multiplanar, multisequence MRI scanning was performed of the abdomen before and after the administration of intravenous contrast. CONTRAST: Gadopiclenol SOLN 1-25 mL; Route of Administration: Intravenous; Dose: 8.5 mL. FINDINGS: Lung Bases: Please see dedicated chest CT scan of the same date for full description of the intra-thoracic contents. Liver: Normal size. Levar lobe configuration. Mild signal loss on out of phase imaging suggests steatosis. Scattered hepatic cysts, two of which correspond with the hypodense lesions seen on prior CT. No suspicious hepatic lesion. Possible involvement by the colonic mass as described below. Gallbladder: Normal. Bile Ducts: Normal in caliber. Spleen: Normal. Pancreas: There are couple punctate pancreatic cystic foci without suspicious features. No main ductal dilatation. Adrenals: Normal. Kidneys: Bilateral simple renal cysts. A left-sided cyst corresponds with the too hypodensity on the prior CT. No suspicious renal lesion. No hydronephrosis. Gastrointestinal: The stomach is normal. Large duodenal diverticulum abutting the pancreatic head/uncinate. Bowel loops are nondilated. Heterogeneously enhancing, diffusion restricting mass in the ascending colon is poorly evaluated on MRI, but approximately measures 5 cm in length (24/49). There is adjacent stranding which could be due to local infiltration or reactive inflammation. No clear delineation between the edge of the mass in the inferior right lobe of liver (/,88). Peritoneum/retroperitoneum : No ascites. Lymph nodes: Multiple right mesenteric nodes, concerning for malignant involvement given proximity to the colonic mass. An example right midabdominal node measures 1.4 x 1.1 cm (). No lymphadenopathy outside the mesentery. Vasculature: The abdominal aorta is normal in course and caliber. Patent celiac and superior mesenteric arteries. Patent portal, splenic, and superior mesenteric veins. Body Wall: Small fat-containing umbilical hernia. Bones: Multilevel degenerative changes of the spine. Mildly heterogeneous marrow may be secondary to degenerative change. No suspicious osseous lesion. IMPRESSION: 1. Benign cysts in the liver and kidney, some of which correspond with the hypodensities described on the prior CT. 2. Ascending colonic mass with adjacent infiltrative or reactive inflammatory change, poorly evaluated on MRI. The mass abuts the inferior right lobe of liver without a dividing fat plane, raising concern for local invasion. 3. Right mesenteric lymphadenopathy, suspicious for metastatic disease. Normal [facility] CREAT/GFRon 12-31-2024 Creatinine [Mass/Vol] 0.61 mg/dL 0.50 - 1.20 mg/dL [facility] GFR/1.73 sq M.predicted CKD-EPI (S/P/Bld) [Vol rate/Area] - PINF [facility] Comment on above: Reported eGFR is bas ed on the CKD-EPI 2020 equation using creatinine, age, and sex. Interpretation and review of laboratory results Normal [facility] Test performed at ad dress of the patient encounter. [facility] CBC + DIFFon 11-17-2024 Baso # 0.02 x10EE3/UL Normal 0.00 - 0.10 [facility] Comment on above: Performed By: #### 2 [id number] #### [facility],[address] [place] [address] 18822 Basophils/100 WBC (Bld) 0.3 % Normal 0.0 - 2.0 [facility] Comment on above: Performed By: #### 2 88680 #### [facility],[address] [place] [address] 58648 CBC + DIFF Normal [facility] Comment on above: Result Comment: CBC- COMPLETE BLOOD COUNT Performed By: #### 2 97917 #### [facility],[address] [place] [address] 19657 EO # 0.29 x10EE3/UL Normal 0.00 - 0.50 [facility] Comment on above: Performed By: #### 2 58039 #### [facility],[address] [place] [address] 17399 Eosinophils/100 WBC (Bld) 4.3 % Normal 0.0 - 7.0 [facility] Comment on above: Performed By: #### 2 29288 #### [facility],[address] [place] [address] 40370 Erythrocyte distribution width (RBC) [Ratio] 13.0 % Normal 12.0 - 15.6 [facility] Comment on above: Performed By: #### 2 39109 #### [facility],[address] [place] [address] Hematocrit (Bld) [Volume fraction] 47.5 % High 34.0 - 46.0 [facility] Comment on above: Performed By: #### 2 25215 #### [facility],[address] [place] [address] Hemoglobin (Bld) [Mass/Vol] 15.8 g/dL Normal 12.0 - 16.0 [facility] Comment on above: Performed By: #### 2 53948 #### [facility],[address] [place] [address] Lymph # 1.93 x10EE3/UL Normal 0.80 - 2.80 [facility] Comment on above: Performed By: #### 2 40225 #### [place] [address] Lymphocytes/100 WBC (Bld) 28.9 % Normal 20.0 - 45.0 [facility] Comment on above: Performed By: #### 2 97327 #### [facility],[address] [place] [address] MANUAL DIFF N/A Normal [facility] Comment on above: Performed By: #### 2 03193 #### [facility],[address] [place], [place] [id number] MCH (RBC) [Entitic mass] 30 pg Normal 27 - 33 [facility] Comment on above: Performed By: #### 2 17631 #### [place] [id number] MCHC 33 X10 3 Normal 32 - 36 [facility] Comment on above: Performed By: #### 2 43862 #### [facility],[address] [place], [place] [id number] MCV (RBC) [Entitic vol] 90 fL Normal 80 - 99 [facility] Comment on above: Performed By: #### 2 94081 #### [facility],[address] [place] [address] 80040 Alexander # 0.55 x10EE3/UL Normal 0.20 - 1.00 [facility] Comment on above: Performed By: #### 2 05022 #### [facility],[address] [place] [address] 67604 MONOS % 8.3 % Normal 0.0 - 10.0 [facility] Comment on above: Performed By: #### 2 32638 #### [facility],[address] [place] [address] 79095 Morphology Miguel (Bld) [Interp] N/A Normal [facility] Comment on above: Performed By: #### 2 26773 #### [facility],[address] [place] [address] 27342 Neut # 3.89 x10EE3/UL Normal 1.50 - 7.10 [facility] Comment on above: Performed By: #### 2 20112 #### [facility],[address] [place] [address] 92154 Neutrophils/100 WBC (Bld) 58.3 % Normal 46.0 - 76.0 [facility] Comment on above: Performed By: #### 2 68819 #### [facility],[address] [place] [address] 52325 PLATELET 373 x10EE3/UL Normal 150 - 450 [facility] Comment on above: Performed By: #### 2 91176 #### [facility],[address] [place] [address] 76123 Platelet mean volume (Bld) [Entitic vol] 7.8 fL Normal 6.6 - 10.5 [facility] Comment on above: Result Comment: AUTO MATED DIFFERENTIAL Performed By: #### 2 37193 #### [facility],[address] [place] [address] 02287 RBC 5.28 x 10EE6/UL Normal 4.10 - 5.30 [facility] Comment on above: Performed By: #### 2 55596 #### [facility],[address] [place] [address] 82152 WBC 6.7 x 10EE3/UL Normal 4.5 - 10.8 [facility] Comment on above: Performed By: #### 2 33877 #### [facility],[address] [place] [address] 16019 CHEST 2 VIEWSon 11-17-2024 CHEST 2 VIEWS [place] [address] Patient: JESSIKA CARRILLO Phone#: : [phone] Age: 74 Gender: F Pt. Type: Out Account: [id number] Location: [facility] Ordering: FLEX BOLES Exam Date: 11/17/2024/8:11 Family Phys: SHU CHOW Charge Code: [id number] Physician: Reeves Order #: [id number] Dose#: PROCEDURE: X-RAY CHEST 2 VIEWS COMPARISON: [facility], , CHEST 2 VIEWS, 12/01/2023, 9:37. INDICATIONS: Colon cancer FINDINGS: LUNGS: Normal. No significant pulmonary parenchymal abnormalities. VASCULATURE: Normal. Unremarkable pulmonary vasculature. CARDIAC: Normal. No cardiac silhouette abnormality or cardiomegaly. MEDIASTINUM: Aorta is ectatic. PLEURA: Normal. No effusion or pleural thickening. BONES: No fracture or visible bony lesion. Degenerative changes of the spine are present. OTHER: There is mild pectus excavatum. CONCLUSION: No acute disease. No significant change has occurred. Dictated by: Bertha Granda MD on 11/17/2024 at 8:37 Approved by: Bertha Granda MD on 11/17/2024 at 8:39 Normal [facility] CMP with eGFRon 11-17-2024 AGE 74 years Normal [facility] Comment on above: Performed By: #### 2 91842 #### [facility],[address] [place] [address] 45080 Albumin [Mass/Vol] 3.6 g/dL Normal 3.4 - 5.0 [facility] Comment on above: Performed By: #### 2 48870 #### [facility],[address] [place] [address] 52300 Albumin/Globulin [Mass ratio] 0.9 {ratio} Normal 0.9 - 1.6 [facility] Comment on above: Performed By: #### 2 23449 #### [facility],[address] [place] [address] 54117 ALK PHOS 73 U/L Normal 46 - 116 [facility] Comment on above: Performed By: #### 2 68671 #### [facility],[address] [place] [address] 42796 ALT [Catalytic activity/Vol] 27 U/L Normal 16 - 63 [facility] Comment on above: Performed By: #### 2 05202 #### [facility],[address] [place] [address] 28863 Anion gap [Moles/Vol] 13 mmol/L Normal 10 - 20 [facility] Comment on above: Performed By: #### 2 72573 #### [facility],[address] [place] [address] 71796 AST [Catalytic activity/Vol] 20 U/L Normal 13 - 39 [facility] Comment on above: Performed By: #### 2 06510 #### [facility],[address] [place] [address] 02430 B/C RATIO 24 ratio Normal 0 - 30 [facility] Comment on above: Performed By: #### 2 03969 #### [facility],[address] [place] [address] 62717 Bilirubin [Mass/Vol] 0.4 mg/dL Normal 0.2 - 1.0 [facility] Comment on above: Performed By: #### 2 68477 #### [facility],[address] [place] [address] 14398 Calcium [Mass/Vol] 9.5 mg/dL Normal 8.5 - 10.1 [facility] Comment on above: Performed By: #### 2 41919 #### [facility],[address] [place] [address] 49456 Chloride [Moles/Vol] 103 mmol/L Normal 98 - 107 [facility] Comment on above: Performed By: #### 2 22271 #### [facility],[address] [place] [address] 28276 CMP with eGFR Normal [facility] Comment on above: Result Comment: COMP REHENSIVE METABOLIC PANEL Performed By: #### 2 81095 #### [facility],[address] [place] [address] 10388 CO2 [Moles/Vol] 29.4 mmol/L Normal 21.0 - 32.0 [facility] Comment on above: Performed By: #### 2 72869 #### [facility],[address] [place] [address] 63774 Creatinine [Mass/Vol] 0.86 mg/dL Normal 0.55 - 1.02 [facility] Comment on above: Performed By: #### 2 02631 #### [facility],[address] [place] [address] 89796 GFR/1.73 sq M.predicted among non-blacks MDRD (S/P/Bld) [Vol rate/Area] mL/min/{1.73_m2} Normal 60 - 999 [facility] Comment on above: Performed By: #### 2 06338 #### [facility],[address] [place] [address] 83779 Result Comment: ACCO RDING TO THE NATIONAL KIDNEY DISEASE EDUCATION PROGRAM(NKDE), A NORMAL eGFR IS A VALUE GREATER THAN OR EQUAL TO 60 ML/MIN/1.73 SQ METERS. CHRONIC KIDNEY DISEASE: <60mL/MIN/1.73 SQ METERS KIDNEY FAILURE: <15mL/MIN/1.73 SQ METERS THIS TEST SHOULD ONLY BE USED FOR PATIENTS 18 YEARS OF AGE AND OLDER. Globulin (S) [Mass/Vol] 4.1 g/dL High 1.5 - 3.8 [facility] Comment on above: Performed By: #### 2 35504 #### [facility],[address] [place] [address] 17724 Glucose [Mass/Vol] 94 mg/dL Normal 74 - 106 [facility] Comment on above: Performed By: #### 2 11821 #### [facility],[address] [place] [address] 55460 Potassium [Moles/Vol] 4.0 mmol/L Normal 3.5 - 5.1 [facility] Comment on above: Performed By: #### 2 51568 #### [address] [address] Protein [Mass/Vol] 7.7 g/dL Normal 6.4 - 8.2 [facility] Comment on above: Performed By: #### 2 62082 #### [address] [address] Sodium [Moles/Vol] 141 mmol/L Normal 136 - 145 [facility] Comment on above: Performed By: #### 2 44541 #### [address] [address] Urea nitrogen [Mass/Vol] 21 mg/dL High 7 - 18 [facility] Comment on above: Performed By: #### 2 53222 #### [address] [address] [address] CT ABDOMEN/PELVIS [facility] [address] CT ABDOMEN/PELVIS [place] [address] Patient: JESSIKA CARRILLO Phone#: : 1950 Age: 74 Gender: F Pt. Type: Out Account: [id number] Location: 062 Ordering: FLEX BOLES Exam Date: 11/17/2024/9:17 Family Phys: SHU CHOW Charge Code: [id number] Physician: Reeves Order #: [id number] Dose#: [id number] PROCEDURE: CT ABDOMEN/PELVIS WITH CONTRAST COMPARISON: None. INDICATIONS: Adenocarcinoma, colon. TECHNIQUE: After obtaining the patient's consent, CT images were created with non-ionic intravenous contrast and oral contrast material. All CT scans at this facility use dose modulation, iterative reconstruction, and/or weight based dosing when appropriate to reduce radiation dose to as low as reasonably achievable. IV CONTRAST: Omnipaque 350,80ml TOTAL DOSE: 28.40 CTDIvol(mGy) FINDINGS: LIVER: There is a 12 millimeter hypodense focus in the mid left hepatic lobe too small to characterize with certainty. Small hypodense focus in the mid right hepatic lobe is present too small to characterize with certainty. No other focal or enhancing lesion is identified. BILIARY: Normal. No visible dilatation or calcification. PANCREAS: Normal. No lesion, fluid collection, ductal dilatation, or atrophy. SPLEEN: Normal. No enlargement or focal lesion. KIDNEYS: A 21 millimeter right renal cyst is present. Right kidney is otherwise unremarkable. There is no evidence of hydronephrosis. There is a 10 millimeter hypodense exophytic focus arising from the upper pole of the left kidney too small to characterize with certainty. ADRENALS: Normal. No mass or enlargement. AORTA/VASCULAR: Normal. No aneurysm or dissection. RETROPERITONEUM: Normal. No mass or adenopathy. BOWEL/MESENTERY: A 5 centimeter duodenal diverticulum is present. At the mid ascending colon there is an irregularly-shaped 3.2 x 3.7 x 2.1 centimeter filling defect suspicious for neoplastic process. Scattered nonspecific mesenteric lymph nodes are present. There is a grouping of mesenteric lymph nodes adjacent to the mid ascending colon. ABDOMINAL WALL: Normal. No mass or hernia. Continued Report - Page 2 of 2 Patient: JESSIKA CARRILLO Phone#: : 1950 Age: 74 Gender: F Pt. Type: Out Account: [id number] Location: 062 Ordering: FLEX BOLES Exam Date: 11/17/2024/9:17 Family Phys: SHU CHOW Charge Code: [id number] Physician: Reeves Order #: [id number] Dose#: [id number] URINARY BLADDER: Normal. No visible focal wall thickening, lesion, or calculus. PELVIC NODES: Normal. No adenopathy. PELVIC ORGANS: Normal. No visible mass. Pelvic organs appropriate for patient age. BONES: Degenerative changes of the spine are present. LUNG BASES: Normal. No visible pulmonary or pleural disease. OTHER: Negative. CONCLUSION: 1. Irregularly shaped filling defect at the mid ascending colon. 2. Nonspecific mesenteric lymph nodes are present. 3. Right renal cyst. 4. 10 millimeter hypo dense focus too small to characterize with certainty at the upper pole of the left kidney. 5. Hypodense foci are present in the right and left hepatic lobes too small to characterize with certainty. Dictated by: Bertha Granda MD on 11/17/2024 at 11:16 Approved by: Bertha Granda MD on 11/17/2024 at 11:29 Normal [facility] Supplemental Reporton 2023 Supplemental Report . Pathology Reports Accession: Collected Date/Time: Received Date/Time: Pathologist: [id number] 08/17/2024 13:36 EDT 08/19/2024 08:23 EDT CALI EVANS MD Supplemental Report SUPPLEMENTAL: [facility] [address] [place] [id number] MLH1 Methylation Analysis Clinical summary and Indication: Colon Adenocarcinoma Body Site: Colon Biopsy MLH1 Result: Positive Hypermethylation of the MLH1 promoter was detected in the provided specimen. Hypermethylation of the MLH1 promoter and presence of BRAF V600E mutation are characteristic of sporadic cancers. Results should be interpreted in conjunction with clinical and other laboratory findings for the most accurate interpretation. Complete report scanned into chart. Electronically Signed by Diagnostic interpretation performed at [facility] CALI EVANS Sign out Date: 09/23/2024 14:35 Performing Lab: [facility], [address] [place] [address] Pathology Dept Final Surgical Pathology Report DIAGNOSIS: A. COLON, BIOPSY AT 30 CM: - POSITIVE FOR ADENOCARCINOMA WITH A NONSPECIFIC IMMUNOPHENOTYPE - KERATIN CHELITA STRONGLY POSITIVE. KERATIN AE1/3 AND CDX2 FOCAL WEAK POSITIVE. PAX8, GATA3, S100, P40, CD45, CK7, CK20, CD117, VIMENTIN, SYNAPTOPHYSIN NEGATIVE B. COLON, BIOPSY AT 50 CM: - COLONIC MUCOSA WITHOUT SIGNIFICANT MICROSCOPIC PATHOLOGY Colon and Rectum Biomarker Reporting Template RESULTS Mismatch Repair IMMUNOHISTOCHEMISTRY (IHC) TESTING FOR MISMATCH REPAIR (MMR) PROTEINS: MLH1 RESULT: Loss of nuclear expression MSH2 RESULT: Intact nuclear expression MSH6 RESULT: Intact nuclear expression PMS2 RESULT: Loss of nuclear expression IHC INTERPRETATION: Loss of nuclear expression of MLH1 and PMS2: testing for methylation of the MLH1 promoter and / or mutation of BRAF is indicated (the presence of a BRAF V600E mutation and / or MLH1 methylation suggests that the tumor is sporadic and germline evaluation is probably not indicated; absence of both MLH1 methylation and of BRAF V600E mutation suggests the possibility of Gabriel syndrome and sequencing and / or large deletion / duplication testing of germline MLH1 may be indicated) LEARNING SUPPORT ASSISTANT TUMOR BLOCK(S): A Pathology Reports Accession: Collected Date/Time: Received Date/Time: Pathologist: [id number] 08/17/2024 13:36 EDT 08/19/2024 08:23 EDT CALI EVANS MD COMMENT: [facility] - [id number] CLINICAL INFORMATION: HISTORY OF POLYPS SPECIMEN: A COLON BX AT 130cm B COLON BX AT 150cm GROSS DESCRIPTION: All parts labelled with patient name and [id number]. Received in formalin labeled biopsy at 130 cm are multiple sofia-brown tissue fragments aggregating to 0.7 x 0.4 x 0.3 cm greatest dimension. TS-1 B. received in formalin labeled biopsy at 150 cm is 1 wispy sofia tissue fragment measuring 0.5 x 0.3 cm greatest dimension. TS-1 Ines Merrill, Grossing Edm Operator/ Dr. Cali Evans, Pathologist Performed by Ines Merrill MICROSCOPIC DESCRIPTION: The microscopic examination is performed, except in the case of Gross Only. Electronically Signed by Pathology Report verified by [facility] CALI EVANS Sign out Date: 08/30/2024 15:56 Performing Lab: [facility], [address] [place] [address] Pathology Dept Disclaimer If ancillary studies were utilized, the following Laboratory Developed Test (LDT) disclaimer will apply: Under CLIA requirements, [facility] is qualified to perform high complexity testing. For all ancillary stains, positive and negative controls stain appropriately. Performance characteristics of immunohistochemical and chromogenic in-situ hybridization tests have been determined by [facility]. These tests are used for clinical purposes, They should not be regarded as investigational or for research. Normal [facility] Final Surgical Pathology Rep matthias 08-30-2024 Final Surgical Pathology Report . Pathology Reports Accession: Collected Date/Time: Received Date/Time: Pathologist: [id number] 08/17/2024 13:36 EDT 08/19/2024 08:23 EDT CALI EVANS MD Final Surgical Pathology Report DIAGNOSIS: A. COLON, BIOPSY AT 30 CM: - POSITIVE FOR ADENOCARCINOMA WITH A NONSPECIFIC IMMUNOPHENOTYPE - KERATIN CHELITA STRONGLY POSITIVE. KERATIN AE1/3 AND CDX2 FOCAL WEAK POSITIVE. PAX8, GATA3, S100, P40, CD45, CK7, CK20, CD117, VIMENTIN, SYNAPTOPHYSIN NEGATIVE B. COLON, BIOPSY AT 50 CM: - COLONIC MUCOSA WITHOUT SIGNIFICANT MICROSCOPIC PATHOLOGY Colon and Rectum Biomarker Reporting Template RESULTS Mismatch Repair IMMUNOHISTOCHEMISTRY (IHC) TESTING FOR MISMATCH REPAIR (MMR) PROTEINS: MLH1 RESULT: Loss of nuclear expression MSH2 RESULT: Intact nuclear expression MSH6 RESULT: Intact nuclear expression PMS2 RESULT: Loss of nuclear expression IHC INTERPRETATION: Loss of nuclear expression of MLH1 and PMS2: testing for methylation of the MLH1 promoter and / or mutation of BRAF is indicated (the presence of a BRAF V600E mutation and / or MLH1 methylation suggests that the tumor is sporadic and germline evaluation is probably not indicated; absence of both MLH1 methylation and of BRAF V600E mutation suggests the possibility of Gabriel syndrome and sequencing and / or large deletion / duplication testing of germline MLH1 may be indicated) LEARNING SUPPORT ASSISTANT TUMOR BLOCK(S): A COMMENT: [facility] - [id number] CLINICAL INFORMATION: HISTORY OF POLYPS SPECIMEN: A COLON BX AT 130cm B COLON BX AT 150cm GROSS DESCRIPTION: All parts labelled with patient name and [id number] A. Received in formalin labeled biopsy at 130 cm are multiple sofia-brown tissue fragments aggregating to 0.7 x 0.4 x 0.3 cm greatest dimension. TS-1 B. received in formalin labeled biopsy at 150 cm is 1 wispy sofia tissue fragment measuring 0.5 x 0.3 cm greatest dimension. TS-1 Ines Merrill, Grossing Edm Operator/ Dr. Cali Evans, Pathologist Performed by Ines Merrill MICROSCOPIC DESCRIPTION: The microscopic examination is performed, except in the case of Gross Only. Pathology Reports Accession: Collected Date/Time: Received Date/Time: Pathologist: [id number] 08/17/2024 13:36 EDT 08/19/2024 08:23 EDT CALI EVANS MD Electronically Signed by Pathology Report verified by [facility] CALI EVANS Sign out Date: 08/30/2024 15:56 Performing Lab: [facility], [address] [place] [address] Pathology Dept Disclaimer If ancillary studies were utilized, the following Laboratory Developed Test (LDT) disclaimer will apply: Under CLIA requirements, [facility] is qualified to perform high complexity testing. For all ancillary stains, positive and negative controls stain appropriately. Performance characteristics of immunohistochemical and chromogenic in-situ hybridization tests have been determined by [facility]. These tests are used for clinical purposes, They should not be regarded as investigational or for research. Normal [facility] OPERATIVE PROCEDURESon 08-27 OPERATIVE PROCEDURES [facility] OPERATIVE REPORT NAME ACCOUNT SEX AGE ADMIT DISCHARGE PT MED. RECORD# NUMBER DATE DATE TYPE JESSIKA CARRILLO [id number] F 74 08/17/24 08/17/24 2 [id number] ROOM: [facility] DATE OF : 1950 DICTATING PHYSICIAN: Flex Boles DATE OF SURGERY: August 17, 2024 SURGEON: Flex Boles MD CROTCH PIECE BASTER: ANESTHESIOLOGIST: ANESTHETIC: PREOPERATIVE DIAGNOSIS: POSTOPERATIVE DIAGNOSIS: Screening colonoscopy, diverticulosis, colonic polyps and hemorrhoids. OPERATION PERFORMED: Colonoscopy with biopsy, polypectomy and tattooing (tattoo was placed at 130 cm; this was at 70 cm on withdrawal). COMPLICATIONS: ESTIMATED BLOOD LOSS: Minimal. SPECIMEN: Biopsies at 130 cm and 150 cm, sent to Pathology. DISPOSITION: Stable, to recovery. INDICATIONS: Jessika Carrillo is a 74-year-old lady who presents for screening endoscopy. Of note is the fact that she has been in good health. DESCRIPTION OF OPERATION: After informed consent and intravenous fluids, she was brought to the endoscopy suite and placed on a padded gurney in the left lateral decubitus position with adequate padding at pressure points, and time-out verification was done appropriately. She was given sedation per Anesthesia with monitoring throughout. Digital examination showed external hemorrhoidal tags, normal tone, small internal tags, and no discrete mass. The Olympus [id number] flexible endoscope was introduced through the anal verge and carefully advanced, protecting the surrounding mucosa. The scope was advanced through the rectal vault and in through the sigmoid Page 1 of 2 JESSIKA CARRILLO Operative Report JESSIKA Perry GERARDO : 1950 colon, which was rather tortuous. Fluid, mucus and stool particles were irrigated and suctioned. She does have scattered diverticula in the sigmoid and descending colon. The scope was advanced through the sigmoid and descending colon, beyond the splenic flexure, transverse colon, hepatic flexure, and ascending colon toward the ileocecal junction. At about 130 cm, there was a raised, rounded, somewhat sessile polypoid structure which was biopsied with the cold grasp forceps using standard technique. There was good hemostasis. The scope was passed beyond this to the area of the cecum. At 150 cm, close to the cecum, there were some raised, rounded areas which were biopsied with the cold grasp forceps using standard technique. The patient has a rather patulous and floppy colon. It appeared this may be close to the ileocecal junction. There was good hemostasis. The scope was then carefully rotated. The prep was not very good, but with copious irrigation and suctioning the view improved. The scope was withdrawn after documenting the landmarks. The scope was carefully withdrawn through the ascending colon. At about 130 cm, the previously-described raised, rounded, sessile polypoid structure which was erythematous was noted. Additional biopsies were taken with the cold grasp forceps. It was noted that upon withdrawal this appeared to be closer to 70 cm, and the scope was further withdrawn until it was immediately proximal to the above-described polypoid lesion. This area was injected with methylene blue using standard technique to demarcate this area. The scope was then further withdrawn through the transverse, descending and sigmoid colon. There were scattered diverticula, especially in the descending and sigmoid colon. The scope was withdrawn into the rectal vault, retroflexed, rotated, straightened out and withdrawn with decompression. There were some internal and external hemorrhoids, but there was no tear and no fissure, and no other worrisome findings were encountered. The patient tolerated the procedure well. She does have a large, patulous, floppy colon indicating possible constipation. I will discuss the findings with her and give her instructions, and pathology will be followed by my office as an outpatient. Dictated By: Flex Boles MD 08/17/24 13:53 JOB #: [id number] Transcribed By: dasia 08/17/24 16:29 Electronically signed by: E-Sign Dr. Flex Boles MD 08/27/24 12:39 Page 2 of 2 JESSIKA CARRILLO Operative Report Normal [facility] 3D MAMM BILAT SCREENon 08-01 3D MAMM BILAT SCREEN [place] [address] Patient: FITOJESSIKA Shannon. Phone#: : 1950 Age: 73 Gender: F Pt. Type: Out Account: [id number] Location: [facility] Ordering: SHU CHOW Exam Date: 08/01/2024/10:25 Family Phys: Charge Code: [id number] Physician: Reeves Order #: [id number] Dose#: PROCEDURE: BILATERAL SCREENING BREAST TOMOSYNTHESIS MAMMOGRAM WITH CAD COMPARISON: [facility], 3D BILAT SCREEN, 08/28/2022, 13:27. [facility], 3D BILAT SCREEN, 08/21/2023, 11:12. INDICATIONS: screening BREAST COMPOSITION: Scattered areas fibroglandular density. FINDINGS: DIAGNOSTIC CATEGORY 1--NEGATIVE NO CHANGE FROM COMPARISON ASSESSMENT. RIGHT BREAST: No significant suspicious finding. No significant change has occurred. LEFT BREAST: No significant suspicious finding. No significant change has occurred. RECOMMENDATIONS: ROUTINE MAMMOGRAM AND CLINICAL EVALUATION IN 12 MONTHS. PLEASE NOTE: A NORMAL MAMMOGRAM DOES NOT EXCLUDE THE POSSIBILITY OF BREAST CANCER. A CLINICALLY SUSPICIOUS PALPABLE LUMP SHOULD BE BIOPSIED. THIS FACILITY UTILIZES A REMINDER SYSTEM TO ENSURE THAT ALL PATIENTS RECEIVE REMINDER LETTERS FOR APPOINTMENTS. THIS INCLUDES REMINDERS FOR ROUTINE MAMMOGRAMS, DIAGNOSITC MAMMOGRAMS, OR OTHER BREAST IMAGING INTERVENTIONS WHEN APPROPRIATE. THIS PATIENT WILL BE PLACED IN THE APPROPRIATE REMINDER SYSTEM. Dictated by: Bertha Granda MD on 08/01/2024 at 12:43 Approved by: Bertha Granda MD on 08/01/2024 at 12:45 Normal [facility] COMPREHENSIVE METABOLIC PANE Anish 07-06-2024 Albumin [Mass/Vol] 4.2 g/dL Normal 3.6-5.1 [facility] Comment on above: Performed By: #### 1 0231, 7600, 53066, 899, 1005, 866 #### [facility] [place] [address] Pouring Crane Operator: Esteban Shen MD Albumin/Globulin [Mass ratio] 1.4 {ratio} Normal 1.0-2.5 [facility] Comment on above: Performed By: #### 1 0231, 7600, 85017, 899, 1005, 866 #### [facility] [place] [address] Pouring Crane Operator: Esteban Shen MD ALP [Catalytic activity/Vol] 56 U/L Normal 37-153 [facility] Comment on above: Performed By: #### 1 0231, 7600, 36666, 899, 1005, 866 #### [facility] [place] [address] Pouring Crane Operator: Esteban Shen MD ALT [Catalytic activity/Vol] 25 U/L Normal 6-29 [facility] Comment on above: Performed By: #### 1 0231, 7600, 15889, 899, 1005, 866 #### [facility] [place] [address] Pouring Crane Operator: Esteban Shen MD AST [Catalytic activity/Vol] 30 U/L Normal 10-35 [facility] Comment on above: Performed By: #### 1 0231, 7600, 42017, 899, 1005, 866 #### [facility] [place] [address] Pouring Crane Operator: Esteban Shen MD Bilirubin [Mass/Vol] 0.5 mg/dL Normal 0.2-1.2 [facility] Comment on above: Performed By: #### 1 0231, 7600, 48938, 899, 1005, 866 #### [facility] [place] [address] Pouring Crane Operator: Esteban Shen MD BUN/CREATININE RATIO SEE NOTE: Normal 6-22 [facility] Comment on above: Result Comment: Not Reported: BUN and Creatinine are within reference range. Performed By: #### 1 0231, 7600, 75721, 899, 1005, 866 #### [facility] [address], [address] [place] [address] Pouring Crane Operator: Esteban Shen MD Calcium [Mass/Vol] 9.9 mg/dL Normal 8.6-10.4 [facility] Comment on above: Performed By: #### 1 0231, 7600, 21663, 899, 1005, 866 #### [facility] [address], [address] [place] [address] Pouring Crane Operator: Esteban Shen MD Chloride [Moles/Vol] 100 mmol/L Normal 98-110 [facility] Comment on above: Performed By: #### 1 0231, 7600, 11136, 899, 1005, 866 #### [facility] [address], [address] [place] [address] Pouring Crane Operator: Esteban Shen MD CO2 [Moles/Vol] 29 mmol/L Normal 20-32 [facility] Comment on above: Performed By: #### 1 0231, 7600, 54876, 899, 1005, 866 #### [facility] [address], [address] [place] [address] Pouring Crane Operator: Esteban Shen MD Creatinine [Mass/Vol] 0.70 mg/dL Normal 0.60-1.[address] [facility] Comment on above: Performed By: #### 1 0231, 7600, 67271, 899, 1005, 866 #### [facility] [address], [address] [place] [address] Pouring Crane Operator: Esteban Shen MD GFR/1.73 sq M.predicted among non-blacks MDRD (S/P/Bld) [Vol rate/Area] 91 mL/min/{1.73_m2} Normal > OR = 60 [facility] Comment on above: Performed By: #### 1 0231, 7600, 84185, 899, 1005, 866 #### [facility] [place] [address] Pouring Crane Operator: Esteban Shen MD Globulin (S) [Mass/Vol] 2.9 g/dL Normal 1.9-3.7 [facility] Comment on above: Performed By: #### 1 0231, 7600, 07517, 899, 1005, 866 #### [facility] [place] [address] Pouring Crane Operator: Esteban Shen MD Glucose [Mass/Vol] 91 mg/dL Normal 65-99 [facility] Comment on above: Result Comment: Fasting reference interval Performed By: #### 1 0231, 7600, 12729, 899, 1005, 866 #### [facility] [place] [address] Pouring Crane Operator: Esteban Shen MD Potassium [Moles/Vol] 4.5 mmol/L Normal 3.5-5.3 Replaced By [facility] Comment on above: Performed By: #### 1 0231, 7600, 16325, 899, 1005, 866 #### [facility] [place] [address] Pouring Crane Operator: Esteban Shen MD Protein [Mass/Vol] 7.1 g/dL Normal 6.1-8.1 [facility] Comment on above: Performed By: #### 1 0231, 7600, 79397, 899, 1005, 866 #### [facility] [place] [address] Pouring Crane Operator: Esteban Shen MD Sodium [Moles/Vol] 139 mmol/L Normal 135-146 [facility] Comment on above: Performed By: #### 1 0231, 7600, 06793, 899, 1005, 866 #### [facility] [place] [address] Pouring Crane Operator: Esteban Shen MD Urea nitrogen [Mass/Vol] 14 mg/dL Normal 7-25 [facility] Comment on above: Performed By: #### 1 0231, 7600, 03036, 899, 1005, 866 #### [facility] [place] [address] Pouring Crane Operator: Esteban Shen MD LIPID PANEL, [facility] Cholesterol [Mass/Vol] 213 mg/dL High <200 [facility] Comment on above: Performed By: #### 1 0231, 7600, 05849, 899, 1005, 866 #### [facility] [place] [address] Pouring Crane Operator: Esteban Shen MD Cholesterol in HDL [Mass/Vol] 51 mg/dL Normal > OR = 50 [facility] Comment on above: Performed By: #### 1 0231, 7600, 84578, 899, 1005, 866 #### [facility] [place] [address] Pouring Crane Operator: Esteban Shen MD Cholesterol in LDL [Mass/Vol] 126 mg/dL High [facility] Comment on above: Result Comment: Refe rence range: <100 Desirable range <100 mg/dL for primary prevention; <70 mg/dL for patients with CHD or diabetic patients with > or = 2 CHD risk factors. LDL-C is now calculated using the Sugey calculation, which is a validated novel method providing better accuracy than the Friedewald equation in the estimation of LDL-C. Rohan HO et al. NIEVES. 2013;310(19): 2390-0947 (http://education.Publons.LIBCAST/faq/BGV659) Performed By: #### 1 0231, 7600, 78507, 899, 1005, 866 #### [facility] [address], [address] [place] [address] Pouring Crane Operator: Esteban Shen MD Cholesterol.total/Chol esterol in HDL [Mass ratio] 4.2 {ratio} Normal <5.0 [facility] Comment on above: Performed By: #### 1 0231, 7600, 92793, 899, 1005, 866 #### [facility] [place] [address] Pouring Crane Operator: Esteban Shen MD NON HDL CHOLESTEROL 162 mg/dL (calc) High <130 [facility] Comment on above: Result Comment: For patients with diabetes plus 1 major ASCVD risk factor, treating to a non-HDL-C goal of <100 mg/dL (LDL-C of <70 mg/dL) is considered a therapeutic option. Performed By: #### 1 0231, 7600, 56952, 899, 1005, 866 #### [facility] [place] [address] Pouring Crane Operator: Esteban Shen MD Triglyceride [Mass/Vol] 216 mg/dL High <150 [facility] Comment on above: Result Comment: If a non-fasting specimen was collected, consider repeat triglyceride testing on a fasting specimen if clinically indicated. Jamel et al. J. of Clin. Lipidol. 2015;9:129-169. Performed By: #### 1 0231, 7600, 94720, 899, 1005, 866 #### [facility] [place] [address] Pouring Crane Operator: Esteban Shen MD T4, FREEon 07-06-2024 Free T4 [Mass/Vol] 1.1 ng/dL Normal 0.8-1.8 [facility] Comment on above: Performed By: #### 1 0231, 7600, 44347, 899, 1005, 866 #### [facility] [place] [address] Pouring Crane Operator: Esteban Shen MD TEST AUTHORIZATIONon 024 CLIENT CONTACT: ROVERTO LYNCH Normal [facility] Comment on above: Performed By: #### 1 0231, 7600, 56341, 899, 1005, 866 #### [facility] [address], [address] [place] [address] Pouring Crane Operator: Esteban Shen MD COMMENT Normal [facility] Comment on above: Result Comment: Plea se have the ordering physician or his or her authorized motor vehicle representative sign a copy of this report and promptly return it by faxing it to: [phone] or by returning the form to your lecturer in marketing. Performed By: #### 1 0231, 7600, 08567, 899, 1005, 866 #### [facility] [place] [address] Pouring Crane Operator: Esteban Shen MD REPORT ALWAYS MESSAGE SIGNATURE Normal [facility] Comment on above: Result Comment: The laboratory testing on this patient was verbally requested or confirmed by the ordering physician or his or her authorized motor vehicle representative after contact with an employee of [employer]. Federal regulations require that we maintain on file written authorization for all laboratory testing. Accordingly we are asking that the ordering physician or his or her authorized motor vehicle representative sign a copy of this report and promptly return it to the client services analyst. Signature: Performed By: #### 1 0231, 7600, 77464, 899, 1005, 866 #### [facility] [address], [address] [place] [address] Pouring Crane Operator: Esteban Shen MD TEST CODE: 866SB Normal [facility] Comment on above: Performed By: #### 1 0231, 7600, 91948, 899, 1005, 866 #### [facility] [address], [address] [place] [address] Pouring Crane Operator: Esteban Shen MD TEST NAME: T4, FREE Normal [facility] Comment on above: Performed By: #### 1 0231, 7600, 64605, 899, 1005, 866 #### [facility] [address], [address] [place], [place] [id number] Pouring Crane Operator: Esteban Shen MD TSHon 07-06-2024 TSH Qn 4.86 m[IU]/L High 0.40-4.50 [facility] Comment on above: Performed By: #### 1 0231, 0, 78442, 899, 1005, 866 #### [facility] [address], [address] Pouring Crane Operator: Esteban Shen MD VITAMIN D,25-OH,TOTAL,IAon 0 07-06-2024 VITAMIN D,25-OH,TOTAL,IA 36 ng/mL Normal 30-100 [facility] Comment on above: Result Comment: Ryanne min D Status 25-OH Vitamin D: Deficiency: <20 ng/mL Insufficiency: 20 - 29 ng/mL Optimal: > or = 30 ng/mL For 25-OH Vitamin D testing on patients on D2-supplementation and patients for whom quantitation of D2 and D3 fractions is required, the QuestAssureD(TM) 25-OH VIT D, (D2,D3), LC/MS/MS is recommended: order code 89000 (patients >2yrs). See Note 1 Note 1 For additional information, please refer to http://education.Publons.LIBCAST/faq/KEB884 (This link is being provided for informational/ educational purposes only.) Performed By: #### 1 0231, 0, 78866, 899, 1005, 866 #### [facility] [address], [address] [place] [address] Pouring Crane Operator: Esteban Shen MD Laboratory - Chemistry and C hemistry - challengeon 07-05-2024 Albumin [Mass/Vol] 4.2 g/dL Normal 3.6 - 5.1 g/dL [facility] Albumin/Globulin [Mass ratio] 1.4 {ratio} Normal 1.0 - 2.5 [facility], [facility].; [facility] ALP [Catalytic activity/Vol] 56 U/L Normal 37 - 153 U/L [facility].; [facility], [facility]. ALT [Catalytic activity/Vol] 25 U/L Normal 6 - 29 U/L [facility].; [facility], [employer]. AST [Catalytic activity/Vol] 30 U/L Normal 10 - 35 U/L [facility], [facility].; [employer] [facility] [facility] Bilirubin [Mass/Vol] 0.5 mg/dL Normal 0.2 - 1 .2 mg/dL [facility].; [facility], [facility]. Calcium [Mass/Vol] 9.9 mg/dL Normal 8.6 - 10. 4 mg/dL [facility].; [facility] [facility]. Chloride [Moles/Vol] 100 mmol/L Normal 98 - 11 0 mmol/L [facility], [facility].; [employer], [employer] Cholesterol [Mass/Vol] 213 mg/dL Abnormal [facility].; [facility] [facility] [facility] Cholesterol in HDL [Mass/Vol] 51 mg/dL Normal [facility].; [employer] Cholesterol in LDL [Mass/Vol] 126 mg/dL Abnormal [facility].; [employer]. CO2 [Moles/Vol] 29 mmol/L Normal 20 - 32 mmol/L [facility].; [employer], [facility] Creatinine [Mass/Vol] 0.70 mg/dL Normal 0.60 - 1.00 mg/dL [facility].; [employer]. Free T4 [Mass/Vol] 1.1 ng/dL Normal 0.8 - 1.8 ng/dL [facility].; [employer] Work Phone: GFR/1.73 sq M.predicted among non-blacks MDRD (S/P/Bld) [Vol rate/Area] 91 mL/min/{1.73_m2} Normal [facility].; [employer] Glucose [Mass/Vol] 91 mg/dL Normal 65 - 99 mg/dL [facility] [employer] Potassium [Moles/Vol] 4.5 mmol/L Normal 3.5 - 5.3 mmol/L [facility]; [facility] [facility] [facility] Protein [Mass/Vol] 7.1 g/dL Normal 6.1 - 8.1 g/dL [facility]; [facility] [facility] [facility] Sodium [Moles/Vol] 139 mmol/L Normal 135 - 146 mmol/L [facility]; [facility] [facility] [facility] Triglyceride [Mass/Vol] 216 mg/dL Abnormal [facility]; [facility] [facility] [facility] TSH Qn 4.86 m[IU]/L Abnormal 0.40 - 4.50 {mIU/L} [facility]; [facility] [facility] [facility] Urea nitrogen [Mass/Vol] 14 mg/dL Normal 7 - 25 mg/dL [facility]; [employer] [facility] No Panel Informationon 07-05 [id number] See Below Normal [facility]; [employer] [facility] Work Phone: BUN/CREATININE RATIO SEE NOTE: Normal 6 - 22 [facility]; [employer] [facility] [facility] CHOL/HDLC RATIO 4.2 Normal [facility]; [employer] [facility] CLIENT CONTACT: ROVERTO LYNCH Normal [facility]; [employer] [facility] Work Phone: GLOBULIN 2.9 Normal 1.9 - 3.7 [facility]; [employer] [facility] NON HDL CHOLESTEROL 162 Abnormal [facility]; [employer] [facility] TEST CODE: 866SB Normal [employer] [facility]; [employer] Work Phone: TEST NAME: T4, FREE Normal [facility] [facility]; [employer] Work Phone: VITAMIN D,25-OH,TOTAL,IA 36 ng/mL Normal 30 - 100 ng/mL [facility]; [employer] Final Surgical Pathology Rep [facility] 12-25-2023 Final Surgical Pathology Report . Pathology Reports Accession: Collected Date/Time: Received Date/Time: Pathologist: [id number] 12/21/2023 08:30 EST 12/23/2023 08:05 CALI FLAHERTY MD Final Surgical Pathology Report DIAGNOSIS: RIGHT KNEE BONE: - DEGENERATIVE ARTICULAR CHANGES WITHOUT ACUTE INFLAMMATION OR TUMOR COMMENT: [facility] # [id number] CLINICAL INFORMATION: OSTEOARTHRITIS RIGHT KNEE SPECIMEN: A BONE RIGHT KNEE GROSS DESCRIPTION: All parts labelled with patient name and [id number] Received in formalin labelled right knee bone Dimensions/description - multiple convex and concave fragmented portions of sofia-yellow bone/soft tissue aggregating 8 x 8 x 4.5 cm, articular surfaces are focally eburnated, cartilage is focally nodular, underlying bone is yellow/dense to trabecular RS-1 following decalcification JUVENTINO Hernandez Dictated by KELLEY MARTIN MICROSCOPIC DESCRIPTION: The microscopic examination is performed, except in the case of Gross Only. Electronically Signed by Pathology Report verified by [facility] CALI EVANS Sign out Date: 12/25/2023 10:06 Performing Lab: [facility], [address] [place] [address] Pathology Dept Disclaimer If ancillary studies were utilized, the following Laboratory Developed Test (LDT) disclaimer will apply: Under CLIA requirements, [facility] is qualified to perform high complexity testing. For all ancillary stains, positive and negative controls stain appropriately. Performance characteristics of immunohistochemical and chromogenic in-situ hybridization tests have been determined by [facility]. These tests are used for clinical purposes, They should not be regarded as investigational or for research. Normal [facility] KNEE 2 VIEWS RTon 12-21-2023 KNEE 2 VIEWS [place] [address] Patient: JESSIKA CARRILLO Phone#: : 1950 Age: 73 Gender: F Pt. Type: Out Account: [id number] Location: [id number] Ordering: [facility] Date: 12/21/2023/10:30 Family Phys: SHU CHOW Charge Code: [id number] Physician: Reeves Order #: [id number] Dose#: PROCEDURE: X-RAY KNEE RT 2 VIEWS COMPARISON: [facility], XR, KNEE COMPLETE RT MIN 4 VIEWS, 06/25/2015, 12:19. INDICATIONS: Post Operative. FINDINGS: BONES: Postoperative changes of right knee arthroplasty with tibial and femoral hardware components. SOFT TISSUES: Expected postoperative air in the soft tissues. Cutaneous rossana are present. EFFUSION: None visible. OTHER: Negative. CONCLUSION: 1. Expected postoperative changes of right knee arthroplasty. Dictated by: Fernanda Santooy MD on 12/21/2023 at 13:53 Approved by: Fernanad Santoyo MD on 12/21/2023 at 13:54 Normal [facility] BMP with eGFRon 12-01-2023 AGE 73 years Normal [facility] Comment on above: Performed By: #### 2 72259 #### [facility],[address] [place], [place] [id number] Anion gap [Moles/Vol] 11 mmol/L Normal 10 - 20 [facility] Comment on above: Performed By: #### 2 45492 #### [facility],[address] [place], [place] [id number] BMP with eGFR Normal [facility] Comment on above: Result Comment: BASI C METABOLIC PANEL Performed By: #### 2 76337 #### [address] [address] Calcium [Mass/Vol] 9.7 mg/dL Normal 8.5 - 10.1 [facility] Comment on above: Performed By: #### 2 23762 #### [facility],[address] [place] [address] Chloride [Moles/Vol] 103 mmol/L Normal 98 - 107 [facility] Comment on above: Performed By: #### 2 28001 #### [facility],[address] [place] [address]67 CO2 [Moles/Vol] 29.7 mmol/L Normal 21.0 - 32.0 [facility] Comment on above: Performed By: #### 2 32786 #### [facility],[address] [place] [address]65 Creatinine [Mass/Vol] 0.91 mg/dL Normal 0.55 - 1.02 [facility] Comment on above: Performed By: #### 2 65214 #### [facility],[address] [place] [address] 81429 eGFR 60 ML/MINUTE Normal 60 - 999 [facility] Comment on above: Performed By: #### 2 80328 #### [facility],[address] [place] [address] GFR/1.73 sq M.predicted among non-blacks MDRD (S/P/Bld) [Vol rate/Area] mL/min/{1.73_m2} Normal 60 - 999 [facility] Comment on above: Result Comment: ACCO RDING TO THE NATIONAL KIDNEY DISEASE EDUCATION PROGRAM(NKDE), A NORMAL eGFR IS A VALUE GREATER THAN OR EQUAL TO 60 ML/MIN/1.73 SQ METERS. CHRONIC KIDNEY DISEASE: <60mL/MIN/1.73 SQ METERS KIDNEY FAILURE: <15mL/MIN/1.73 SQ METERS THIS TEST SHOULD ONLY BE USED FOR PATIENTS 18 YEARS OF AGE AND OLDER. Performed By: #### 2 32306 #### [facility],[address] [place] [address] Glucose [Mass/Vol] 98 mg/dL Normal 74 - 106 [facility] Comment on above: Performed By: #### 2 04319 #### [facility],[address] [place] [address] Potassium [Moles/Vol] 3.9 mmol/L Normal 3.5 - 5.1 [facility] Comment on above: Performed By: #### 2 45155 #### [address] [address] Sodium [Moles/Vol] 140 mmol/L Normal 136 - 145 [facility] Comment on above: Performed By: #### 2 11417 #### [facility],[address] [place] [address]8427 Urea nitrogen [Mass/Vol] 13 mg/dL Normal 7 - 18 [facility] Comment on above: Performed By: #### 2 72432 #### [facility],[address] [place] [address] 63468 CBC + DIFFon 12-01-2023 Baso # 0.10 x10EE3/UL Normal 0.00 - 0.10 [facility] Comment on above: Performed By: #### 2 13518 #### [facility],[address] [place] [address] 67781 Basophils/100 WBC (Bld) 1.3 % Normal 0.0 - 2.0 [facility] Comment on above: Performed By: #### 2 03714 #### [facility],[address] [place] [address]309 CBC + DIFF Normal [facility] Comment on above: Result Comment: CBC- COMPLETE BLOOD COUNT Performed By: #### 2 79184 #### [facility],[address] [place] [address]76 EO # 0.20 x10EE3/UL Normal 0.00 - 0.50 [facility] Comment on above: Performed By: #### 2 78340 #### [facility],[address] [place] [address] 04685 Eosinophils/100 WBC (Bld) 2.9 % Normal 0.0 - 7.0 [facility] Comment on above: Performed By: #### 2 36373 #### [facility],[address] [place] [address]1105 Erythrocyte distribution width (RBC) [Ratio] 13.6 % Normal 12.0 - 15.6 [facility] Comment on above: Performed By: #### 2 96239 #### [facility],[address] [place] [address] 23617 Hematocrit (Bld) [Volume fraction] 46.6 % High 34.0 - 46.0 [facility] Comment on above: Performed By: #### 2 92369 #### [facility],[address] [place] [address] 82843 Hemoglobin (Bld) [Mass/Vol] 15.5 g/dL Normal 12.0 - 16.0 [facility] Comment on above: Performed By: #### 2 79093 #### [facility],[address] [place] [address] 92435 Lymph # 1.60 x10EE3/UL Normal 0.80 - 2.80 [facility] Comment on above: Performed By: #### 2 54397 #### [facility],[address] [place] [address] 93487 Lymphocytes/100 WBC (Bld) 21.4 % Normal 20.0 - 45.0 [facility] Comment on above: Performed By: #### 2 00095 #### [facility],[address] [place] [address]250 MANUAL DIFF N/A Normal [facility] Comment on above: Performed By: #### 2 79609 #### [facility],[address] [place] [address] 17206 MCH (RBC) [Entitic mass] 30 pg Normal 27 - 33 [facility] Comment on above: Performed By: #### 2 60357 #### [facility],[address] [place] [address] 20967 MCHC 33 X10 3 Normal 32 - 36 [facility] Comment on above: Performed By: #### 2 99803 #### [facility],[address] [place] [address]3732 MCV (RBC) [Entitic vol] 91 fL Normal 80 - 99 [facility] Comment on above: Performed By: #### 2 71103 #### [facility],[address] [place] [address] Alexander # 0.60 x10EE3/UL Normal 0.20 - 1.00 [facility] Comment on above: Performed By: #### 2 46479 #### [facility],[address] [place] [address] 15724 MONOS % 7.5 % Normal 0.0 - 10.0 [facility] Comment on above: Performed By: #### 2 92557 #### [facility],[address] [place] [address] 33678 Morphology Miguel (Bld) [Interp] N/A Normal [facility] Comment on above: Result Comment: {CD] Performed By: #### 2 57341 #### [facility],[address] [place] [address]446 Neut # 4.90 x10EE3/UL Normal 1.50 - 7.10 [facility] Comment on above: Performed By: #### 2 29318 #### [facility],[address] [place] [address] 80570 Neutrophils/100 WBC (Bld) 66.9 % Normal 46.0 - 76.0 [facility] Comment on above: Performed By: #### 2 86728 #### [facility],[address] [place] [address]2940 PLATELET 370 x10EE3/UL Normal 150 - 450 [facility] Comment on above: Performed By: #### 2 31009 #### [facility],[address] [place] [address] 88190 Platelet mean volume (Bld) [Entitic vol] 8.2 fL Normal 6.6 - 10.5 [facility] Comment on above: Result Comment: AUTO MATED DIFFERENTIAL Performed By: #### 2 92965 #### [facility],[address] [place] [address] 07585 RBC 5.13 x 10EE6/UL Normal 4.10 - 5.30 [facility] Comment on above: Performed By: #### 2 76469 #### [facility],[address] [place] [address] 20095 WBC 7.3 x 10EE3/UL Normal 4.5 - 10.8 [facility] Comment on above: Performed By: #### 2 44500 #### [facility],[address] [place] [address]22 CHEST 2 VIEWSon 12-01-2023 CHEST [address] [address] Patient: JESSIKA CARRILLO Phone#: : 1950 Age: 73 Gender: F Pt. Type: Out Account: [id number] Location: [facility] Ordering: KALPESH BOLES Exam Date: 12/01/2023/9:37 Family Phys: SHU CHOW Charge Code: [id number] Physician: Reeves Order #: [id number] Dose#: PROCEDURE: X-RAY CHEST 2 VIEWS COMPARISON: None. INDICATIONS: Pre-operative. FINDINGS: LUNGS: Normal. No significant pulmonary parenchymal abnormalities. VASCULATURE: Normal. Unremarkable pulmonary vasculature. CARDIAC: Normal. No cardiac silhouette abnormality or cardiomegaly. MEDIASTINUM: Normal. No visible mass or adenopathy. PLEURA: Normal. No effusion or pleural thickening. BONES: Degenerative changes of the spine are present. Pectus excavatum is present. OTHER: Negative. CONCLUSION: 1. Pectus excavatum. 2. There is no evidence of acute thoracic abnormality. Dictated by: Bertha Granda MD on 12/01/2023 at 15:17 Approved by: Bertha Granda MD on 12/01/2023 at 15:18 Normal [facility] Laboratory - Chemistry and C hemistry - challengeon 11-23-2023 Albumin [Mass/Vol] 4.2 g/dL Normal 3.6 - 5.1 g/dL [facility] Albumin/Globulin [Mass ratio] 1.6 {ratio} Normal 1.0 - 2.5 [facility].; [facility], [facility]. ALP [Catalytic activity/Vol] 51 U/L Normal 37 - 153 U/L [facility].; [facility], [facility]. ALT [Catalytic activity/Vol] 52 U/L Abnormal 6 - 29 U/L [facility], [facility].; [facility], [facility]. AST [Catalytic activity/Vol] 54 U/L Abnormal 10 - 35 U/L [facility], [facility].; [facility], [facility]. Bilirubin [Mass/Vol] 0.4 mg/dL Normal 0.2 - 1 .2 mg/dL [facility], [facility].; [facility], [facility]. Calcium [Mass/Vol] 9.7 mg/dL Normal 8.6 - 10. 4 mg/dL [facility], [facility].; [facility], [facility]. Chloride [Moles/Vol] 106 mmol/L Normal 98 - 11 0 mmol/L [facility], [facility].; [facility] [facility], [employer] CO2 [Moles/Vol] 22 mmol/L Normal 20 - 32 mmol/L [facility].; [facility] [facility], [facility]. Creatinine [Mass/Vol] 0.76 mg/dL Normal 0.60 - 1.00 mg/dL [facility].; [facility], [facility]. GFR/1.73 sq M.predicted among non-blacks MDRD (S/P/Bld) [Vol rate/Area] 82 mL/min/{1.73_m2} Normal [facility].; [facility], [facility]. Glucose [Mass/Vol] 96 mg/dL Normal 65 - 99 mg/dL [facility], [facility].; [facility], [facility]. Potassium [Moles/Vol] 4.6 mmol/L Normal 3.5 - 5.3 mmol/L [facility].; [facility], [facility]. Protein [Mass/Vol] 6.9 g/dL Normal 6.1 - 8.1 g/dL [facility], [facility].; [facility] Sodium [Moles/Vol] 144 mmol/L Normal 135 - 146 mmol/L [facility].; [facility] [facility], [facility]. Urea nitrogen [Mass/Vol] 17 mg/dL Normal 7 - 25 mg/dL [facility].; [facility] [facility], [facility] Laboratory - Hematology and Cell countson 11-23-2023 Basophils (Bld) [#/Vol] 0.073 10*3/uL Normal 0 - 200 {cells/uL} [facility], [facility].; [facility], [facility] Basophils/100 WBC (Bld) 1.0 % Normal [facility].; [facility], [facility] Eosinophils (Bld) [#/Vol] 0.212 10*3/uL Normal 15 - 500 {cells/uL} [facility].; [facility], [facility] Eosinophils/100 WBC (Bld) 2.9 % Normal [facility].; [facility], [facility] Erythrocyte distribution width (RBC) [Ratio] 12.6 % Normal 11.0 - 15.0 % [facility].; [facility], [facility] Hematocrit (Bld) [Volume fraction] 45.8 % Abnormal 35.0 - 45.0 % [facility].; [employer], [facility] Hemoglobin (Bld) [Mass/Vol] 15.2 g/dL Normal 11.7 - 15.5 g/dL [facility].; [facility], [facility]. Lymphocytes (Bld) [#/Vol] 1.927 10*3/uL Normal 850 - 3900 {cells/uL} [facility], [facility].; [facility] [facility], [facility] Lymphocytes/100 WBC (Bld) 26.4 % Normal [facility].; [employer], [facility]. MCH (RBC) [Entitic mass] 30.9 pg Normal 27.0 - 33.0 pg [facility].; [employer], [facility]. MCHC (RBC) [Mass/Vol] 33.2 g/dL Normal 32.0 - 36.0 g/dL [facility], [facility].; [employer], [facility]. MCV (RBC) [Entitic vol] 93.1 fL Normal 80.0 - 100.0 fL [facility].; [employer], [facility]. Monocytes (Bld) [#/Vol] 0.621 10*3/uL Normal 200 - 950 {cells/uL} [facility].; [employer]. Monocytes/100 WBC (Bld) 8.5 % Normal [facility].; [facility], [employer]. Neutrophils (Bld) [#/Vol] 4.468 10*3/uL Normal 1500 - 7800 {cells/uL} [facility].; [employer]. Neutrophils/100 WBC (Bld) 61.2 % Normal [facility].; [employer]. Platelet mean volume (Bld) [Entitic vol] 11.0 fL Normal 7.5 - 12.5 fL [facility].; [employer]. Platelets (Bld) [#/Vol] 360 10*3/uL Normal 140 - 400 [facility].; [employer], [employer] RBC (Bld) [#/Vol] 4.92 10*6/uL Normal 3.80 - 5.10 {Million/u L} [facility].; [employer], [employer]. WBC (Bld) [#/Vol] 7.3 10*3/uL Normal 3.8 - 10.8 [employer].; [employer] No Panel Informationon 11-23 BUN/CREATININE RATIO SEE NOTE: Normal - [facility].; [employer] GLOBULIN 2.7 Normal 1.9 - 3.7 [facility] [facility].; [employer]. Laboratory - Chemistry and C hemistry - challengeon 07-20-2023 Albumin [Mass/Vol] 4.0 g/dL Normal 3.6 - 5.1 g/dL [facility] [facility].; [employer], [employer]. Albumin/Globulin [Mass ratio] 1.4 {ratio} Normal 1.0 - 2.5 [facility] [facility].; [employer], [employer]. ALP [Catalytic activity/Vol] 47 U/L Normal 37 - 153 U/L [employer] [facility].; [employer]. ALT [Catalytic activity/Vol] 54 U/L Abnormal 6 - 29 U/L [facility].; [facility], [facility]. AST [Catalytic activity/Vol] 49 U/L Abnormal 10 - 35 U/L [facility], [facility].; [facility], [facility]. Bilirubin [Mass/Vol] 0.5 mg/dL Normal 0.2 - 1 .2 mg/dL [facility], [facility].; [facility], [facility]. Calcium [Mass/Vol] 9.6 mg/dL Normal 8.6 - 10. 4 mg/dL [facility], [facility].; [facility], [facility]. Chloride [Moles/Vol] 100 mmol/L Normal 98 - 11 0 mmol/L [facility], [facility].; [facility], [facility]. Cholesterol [Mass/Vol] 204 mg/dL Abnormal [facility].; [facility], [facility] Cholesterol in HDL [Mass/Vol] 67 mg/dL Normal [facility], [facility].; [facility], [facility] Cholesterol in LDL [Mass/Vol] 107 mg/dL Abnormal [facility], [facility].; [facility], [facility]. CO2 [Moles/Vol] 28 mmol/L Normal 20 - 32 mmol/L [facility], [facility].; [facility], [facility]. Creatinine [Mass/Vol] 0.83 mg/dL Normal 0.60 - 1.00 mg/dL [facility], [facility].; [facility], [facility]. GFR/1.73 sq M.predicted among non-blacks MDRD (S/P/Bld) [Vol rate/Area] 74 mL/min/{1.73_m2} Normal [facility], [facility].; [facility] [employer] Glucose [Mass/Vol] 96 mg/dL Normal 65 - 99 mg/dL [facility], [facility].; [facility], [facility]. Potassium [Moles/Vol] 3.9 mmol/L Normal 3.5 - 5.3 mmol/L [facility], [facility].; [facility] Protein [Mass/Vol] 6.9 g/dL Normal 6.1 - 8.1 g/dL [facility], [facility].; [facility] Sodium [Moles/Vol] 138 mmol/L Normal 135 - 146 mmol/L [facility] CenterD[facility].; [employer]. Triglyceride [Mass/Vol] 178 mg/dL Abnormal [facility] Center[facility].; [employer] Urea nitrogen [Mass/Vol] 17 mg/dL Normal 7 - 25 mg/dL [facility] [facility].; [employer] No Panel Informationon 07-20 BUN/CREATININE RATIO SEE NOTE: Normal 6 - 22 [facility].; [facility] [employer] [facility] HospitalD[facility] CHOL/HDLC RATIO 3.0 Normal [facility]; [employer] GLOBULIN 2.9 Normal 1.9 - 3.7 [facility].; [employer] NON HDL CHOLESTEROL 137 Abnormal [facility]; [facility] [facility] VITAMIN D,25-OH,TOTAL,IA 22 ng/mL Abnormal 30 - 100 ng/mL [facility].; [employer]. Laboratory - Chemistry and C hemistry - challengeon 08-18-2022 Albumin [Mass/Vol] 4.0 g/dL Normal 3.6 - 5.1 g/dL [facility].; [employer], [employer] Albumin/Globulin [Mass ratio] 1.3 {ratio} Normal 1.0 - 2.5 [facility] [facility].; [employer]. ALP [Catalytic activity/Vol] 60 U/L Normal 37 - 153 U/L [facility] [facility].; [employer], [employer]. ALT [Catalytic activity/Vol] 37 U/L Abnormal 6 - 29 U/L [facility] [facility].; [employer]. AST [Catalytic activity/Vol] 34 U/L Normal 10 - 35 U/L [facility] [facility].; [employer], [employer]. Bilirubin [Mass/Vol] 0.5 mg/dL Normal 0.2 - 1 .2 mg/dL [facility] [facility].; [employer], [employer]. Calcium [Mass/Vol] 9.6 mg/dL Normal 8.6 - 10. 4 mg/dL [facility] [facility].; [employer]. Chloride [Moles/Vol] 98 mmol/L Normal 98 - 11 0 mmol/L [facility].; [facility], [facility]. Cholesterol [Mass/Vol] 225 mg/dL Abnormal [facility].; [facility], [facility]. Cholesterol in HDL [Mass/Vol] 57 mg/dL Normal [facility], [facility].; [facility] Cholesterol in LDL [Mass/Vol] 139 mg/dL Abnormal [facility], [facility].; [facility], [facility]. CO2 [Moles/Vol] 29 mmol/L Normal 20 - 32 mmol/L [facility], [facility].; [facility], [facility]. Creatinine [Mass/Vol] 0.67 mg/dL Normal 0.60 - 1.00 mg/dL [facility], [facility].; [facility], [facility]. GFR/1.73 sq M.predicted among non-blacks MDRD (S/P/Bld) [Vol rate/Area] 92 mL/min/{1.73_m2} Normal [facility], [facility].; [facility], [facility]. Glucose [Mass/Vol] 82 mg/dL Normal 65 - 99 mg/dL [facility], [facility].; [facility], [facility]. Potassium [Moles/Vol] 4.4 mmol/L Normal 3.5 - 5.3 mmol/L [facility], [facility].; [facility], [facility]. Protein [Mass/Vol] 7.2 g/dL Normal 6.1 - 8.1 g/dL [facility], [facility].; [employer] Sodium [Moles/Vol] 136 mmol/L Normal 135 - 146 mmol/L [facility], [facility].; [facility], [facility]. Triglyceride [Mass/Vol] 157 mg/dL Abnormal [facility] Center[facility].; [facility], [facility]. Urea nitrogen [Mass/Vol] 11 mg/dL Normal 7 - 25 mg/dL [facility], [facility].; [facility], [facility]. No Panel Informationon 08-18 BUN/CREATININE RATIO NOT APPLICABLE Normal 6 - 22 [facility], [facility].; [employer] CHOL/HDLC RATIO 3.9 Normal [facility], [facility].; [employer], [employer] GLOBULIN 3.2 Normal 1.9 - 3.7 [facility].; [facility], [facility]. NON HDL CHOLESTEROL 168 Abnormal [facility].; [facility], [facility] VITAMIN D,25-OH,TOTAL,IA 34 ng/mL Normal 30 - 100 ng/mL [facility].; [facility], [facility] Laboratory - Chemistry and C hemistry - challengeon 04-16-2022 Albumin [Mass/Vol] 4.0 g/dL Normal 3.6 - 5.1 g/dL [facility]; [facility], [facility] Albumin/Globulin [Mass ratio] 1.3 {ratio} Normal 1.0 - 2.5 [facility]; [facility], [facility] ALP [Catalytic activity/Vol] 58 U/L Normal 37 - 153 U/L [facility]; [facility], [facility]. ALT [Catalytic activity/Vol] 33 U/L Abnormal 6 - 29 U/L [facility].; [facility], [facility]. AST [Catalytic activity/Vol] 29 U/L Normal 10 - 35 U/L [facility].; [facility] Center[facility]. Bilirubin [Mass/Vol] 0.5 mg/dL Normal 0.2 - 1 .2 mg/dL [facility]; [facility], [facility]. Calcium [Mass/Vol] 9.2 mg/dL Normal 8.6 - 10. 4 mg/dL [facility].; [facility], [facility]. Chloride [Moles/Vol] 105 mmol/L Normal 98 - 11 0 mmol/L [facility].; [facility], [facility]. Cholesterol [Mass/Vol] 208 mg/dL Abnormal [facility]; [facility], [facility] Cholesterol in HDL [Mass/Vol] 57 mg/dL Normal [facility]; [facility], [facility] Cholesterol in LDL [Mass/Vol] 125 mg/dL Abnormal [facility].; [facility], [facility]. CO2 [Moles/Vol] 25 mmol/L Normal 20 - 32 mmol/L [facility].; [facility], [facility] Creatinine [Mass/Vol] 0.78 mg/dL Normal 0.60 - 0.93 mg/dL [facility].; [facility] GFR/1.73 sq M.predicted among blacks MDRD (S/P/Bld) [Vol rate/Area] 88 mL/min/{1.73_m2} Normal [facility]; [facility], [facility] Glucose [Mass/Vol] 98 mg/dL Normal 65 - 99 mg/dL [facility]; [facility], [facility] Potassium [Moles/Vol] 4.3 mmol/L Normal 3.5 - 5.3 mmol/L [facility]; [facility], [facility] Protein [Mass/Vol] 7.0 g/dL Normal 6.1 - 8.1 g/dL [facility]; [facility], [facility] Sodium [Moles/Vol] 139 mmol/L Normal 135 - 146 mmol/L [facility]; [facility], [facility] Triglyceride [Mass/Vol] 145 mg/dL Normal [facility]; [facility], [facility] Urea nitrogen [Mass/Vol] 13 mg/dL Normal 7 - 25 mg/dL [facility]; [facility] [facility] No Panel Informationon 04-16 BUN/CREATININE RATIO NOT APPLICABLE Normal 6 - 22 [facility]; [facility], [facility] CHOL/HDLC RATIO 3.6 Normal [facility]; [facility], [facility] eGFR NON-AFR. CUBAN 76 Normal [facility]; [facility], [facility] GLOBULIN 3.0 Normal 1.9 - 3.7 [facility]; [facility], [facility] NON HDL CHOLESTEROL 151 Abnormal [facility]; [facility] [facility] Laboratory - Chemistry and C hemistry - challengeon 04-11-2021 Albumin [Mass/Vol] 4.0 g/dL Normal 3.6 - 5.1 g/dL [facility].; [facility], [facility] Albumin/Globulin [Mass ratio] 1.3 {ratio} Normal 1.0 - 2.5 [facility]; [facility]. ALP [Catalytic activity/Vol] 67 U/L Normal 37 - 153 U/L [facility], [facility].; [facility], [facility]. ALT [Catalytic activity/Vol] 36 U/L Abnormal 6 - 29 U/L [facility].; [facility], [facility]. AST [Catalytic activity/Vol] 30 U/L Normal 10 - 35 U/L [facility].; [facility], [facility] Bilirubin [Mass/Vol] 0.4 mg/dL Normal 0.2 - 1 .2 mg/dL [facility].; [facility], [facility] Calcium [Mass/Vol] 9.6 mg/dL Normal 8.6 - 10. 4 mg/dL [facility]; [facility], [facility]. Chloride [Moles/Vol] 103 mmol/L Normal 98 - 11 0 mmol/L [facility], [facility].; [facility], [facility] Cholesterol [Mass/Vol] 247 mg/dL Abnormal [facility].; [facility], [facility] Cholesterol in HDL [Mass/Vol] 65 mg/dL Normal [facility]; [facility], [facility] Cholesterol in LDL [Mass/Vol] 163 mg/dL Abnormal [facility]; [facility], [facility]. CO2 [Moles/Vol] 28 mmol/L Normal 20 - 32 mmol/L [facility].; [facility], [facility] Creatinine [Mass/Vol] 0.73 mg/dL Normal 0.60 - 0.93 mg/dL [facility], [facility].; [facility], [facility]. GFR/1.73 sq M.predicted among blacks MDRD (S/P/Bld) [Vol rate/Area] 96 mL/min/{1.73_m2} Normal [facility], [facility].; [facility], [facility]. Glucose [Mass/Vol] 115 mg/dL Abnormal 65 - 99 mg/dL [facility], [facility].; [facility], [facility]. Potassium [Moles/Vol] 4.1 mmol/L Normal 3.5 - 5.3 mmol/L [facility], [facility].; [facility], [facility] Protein [Mass/Vol] 7.0 g/dL Normal 6.1 - 8.1 g/dL [facility]; [facility] Sodium [Moles/Vol] 139 mmol/L Normal 135 - 146 mmol/L [facility]; [facility] Triglyceride [Mass/Vol] 88 mg/dL Normal [facility]; [facility], [facility] Urea nitrogen [Mass/Vol] 16 mg/dL Normal 7 - 25 mg/dL [facility]; [facility] No Panel Informationon 04-11 BUN/CREATININE RATIO NOT APPLICABLE Normal 6 - 22 [facility]; [facility], [facility] CHOL/HDLC RATIO 3.8 Normal [facility]; [facility] eGFR NON-AFR. CUBAN 83 Normal [facility]; [facility] GLOBULIN 3.0 Normal 1.9 - 3.7 [facility]; [facility] NON HDL CHOLESTEROL 182 Abnormal [facility]; [facility] Laboratory - Hematology and Cell countson 01-23-2021 Basophils (Bld) [#/Vol] 0.062 10*3/uL Normal 0 - 200 {cells/uL} [facility]; [facility], [facility] Basophils/100 WBC (Bld) 0.8 % Normal [facility]; [facility], [facility] Eosinophils (Bld) [#/Vol] 0.3 10*3/uL Normal 15 - 500 {cells/uL} [facility]; [facility], [facility] Eosinophils/100 WBC (Bld) 3.9 % Normal [facility]; [facility], [facility] Erythrocyte distribution width (RBC) [Ratio] 13.3 % Normal 11.0 - 15.0 % [facility]; [facility], [facility] Hematocrit (Bld) [Volume fraction] 44.6 % Normal 35.0 - 45.0 % [facility]; [facility], [facility] Hemoglobin (Bld) [Mass/Vol] 14.6 g/dL Normal 11.7 - 15.5 g/dL [facility].; [facility], [facility]. Lymphocytes (Bld) [#/Vol] 2.025 10*3/uL Normal 850 - 3900 {cells/uL} [facility], [facility].; [facility], [facility]. Lymphocytes/100 WBC (Bld) 26.3 % Normal [facility], [facility].; [facility], [facility]. MCH (RBC) [Entitic mass] 30.4 pg Normal 27.0 - 33.0 pg [facility].; [facility], [facility]. MCHC (RBC) [Mass/Vol] 32.7 g/dL Normal 32.0 - 36.0 g/dL [facility], [facility].; [facility], [facility]. MCV (RBC) [Entitic vol] 92.9 fL Normal 80.0 - 100.0 fL [facility], [facility].; [facility], [facility]. Monocytes (Bld) [#/Vol] 0.747 10*3/uL Normal 200 - 950 {cells/uL} [facility], [facility].; [employer], [facility]. Monocytes/100 WBC (Bld) 9.7 % Normal [facility].; [facility], [facility]. Neutrophils (Bld) [#/Vol] 4.566 10*3/uL Normal 1500 - 7800 {cells/uL} [facility], [facility].; [facility], [facility]. Neutrophils/100 WBC (Bld) 59.3 % Normal [facility].; [facility], [facility]. Platelet mean volume (Bld) [Entitic vol] 9.7 fL Normal 7.5 - 12.5 fL [facility].; [facility], [facility]. Platelets (Bld) [#/Vol] 360 10*3/uL Normal 140 - 400 [facility].; [facility], [facility]. RBC (Bld) [#/Vol] 4.80 10*6/uL Normal 3.80 - 5.10 {Million/u L} [facility], [facility].; [employer], [facility]. WBC (Bld) [#/Vol] 7.7 10*3/uL Normal 3.8 - 10.8 [facility].; [facility] Laboratory - Chemistry and C hemistry - challengeon 06-18-2020 Albumin [Mass/Vol] 3.9 g/dL Normal 3.6 - 5.1 g/dL [facility]; [facility], [facility] Albumin/Globulin [Mass ratio] 1.4 {ratio} Normal 1.0 - 2.5 [facility]; [facility], [facility] ALP [Catalytic activity/Vol] 62 U/L Normal 37 - 153 U/L [facility].; [facility], [facility]. ALT [Catalytic activity/Vol] 33 U/L Abnormal 6 - 29 U/L [facility]; [facility], [facility]. AST [Catalytic activity/Vol] 35 U/L Normal 10 - 35 U/L [facility].; [facility], [facility] Bilirubin [Mass/Vol] 0.4 mg/dL Normal 0.2 - 1 .2 mg/dL [facility].; [facility], [facility] Calcium [Mass/Vol] 9.5 mg/dL Normal 8.6 - 10. 4 mg/dL [facility], [facility].; [facility], [facility]. Chloride [Moles/Vol] 108 mmol/L Normal 98 - 11 0 mmol/L [facility].; [facility], [facility]. Cholesterol [Mass/Vol] 207 mg/dL Abnormal [facility]; [facility], [facility] Cholesterol in HDL [Mass/Vol] 53 mg/dL Normal [facility].; [facility], [facility]. Cholesterol in LDL [Mass/Vol] 128 mg/dL Abnormal [facility], [facility] CO2 [Moles/Vol] 14 mmol/L Abnormal 20 - 32 mmol/L [facility].; [facility], [facility]. Creatinine [Mass/Vol] 0.82 mg/dL Normal 0.60 - 0.93 mg/dL [facility], [facility].; [facility] [facility], [facility]. GFR/1.73 sq M.predicted among blacks MDRD (S/P/Bld) [Vol rate/Area] 84 mL/min/{1.73_m2} Normal [facility].; [employer] [facility] Glucose [Mass/Vol] 87 mg/dL Normal 65 - 99 mg/dL [facility].; [facility] [employer] [facility], [facility]. Potassium [Moles/Vol] 4.9 mmol/L Normal 3.5 - 5.3 mmol/L [facility].; [employer] Protein [Mass/Vol] 6.6 g/dL Normal 6.1 - 8.1 g/dL [facility].; [employer] Sodium [Moles/Vol] 140 mmol/L Normal 135 - 146 mmol/L [facility].; [employer] Triglyceride [Mass/Vol] 151 mg/dL Abnormal [facility] [facility]; [employer] Urea nitrogen [Mass/Vol] 13 mg/dL Normal 7 - 25 mg/dL [facility] [facility]; [employer] No Panel Informationon 06-18 [id number] SEE NOTE Normal [facility]; [employer] Work Phone: BUN/CREATININE RATIO NOT APPLICABLE Normal 6 - 22 [facility]; [employer]. CHOL/HDLC RATIO 3.9 Normal [facility]; [employer], [employer]. eGFR NON-AFR. CUBAN 72 Normal [facility]; [employer] EXTRA LAVENDER-TOP TUBE See Below Normal [employer] [facility].; [employer]. Work Phone: GLOBULIN 2.7 Normal 1.9 - 3.7 [employer]; [employer], [employer] NON HDL CHOLESTEROL 154 Abnormal [facility] [facility].; [employer], [employer] Laboratory - Chemistry and C hemistry - challengeon 04-25-2019 25-hydroxyvitamin D3 [Mass/Vol] 30 ng/mL Normal 30 - 100 ng/mL [facility].; [employer], [employer] Albumin [Mass/Vol] 3.8 g/dL Normal 3.6 - 5.1 g/dL [facility].; [facility], [facility]. Albumin/Globulin [Mass ratio] 1.4 {ratio} Normal 1.0 - 2.5 [facility].; [facility], [facility] ALP [Catalytic activity/Vol] 64 U/L Normal 33 - 130 U/L [facility].; [facility], [facility] ALT [Catalytic activity/Vol] 25 U/L Normal 6 - 29 U/L [facility].; [facility], [facility]. AST [Catalytic activity/Vol] 21 U/L Normal 10 - 35 U/L [facility].; [facility], [facility] Bilirubin [Mass/Vol] 0.4 mg/dL Normal 0.2 - 1 .2 mg/dL [facility].; [facility], [facility] Calcium [Mass/Vol] 9.0 mg/dL Normal 8.6 - 10. 4 mg/dL [facility].; [facility], [facility] Chloride [Moles/Vol] 103 mmol/L Normal 98 - 11 0 mmol/L [facility].; [facility], [facility]. Cholesterol [Mass/Vol] 191 mg/dL Normal [facility]; [facility], [facility] Cholesterol in HDL [Mass/Vol] 54 mg/dL Normal [facility].; [facility], [facility]. Cholesterol in LDL [Mass/Vol] 112 mg/dL Abnormal 0 - 100 mg/dL [facility].; [facility], [facility] Cholesterol non HDL [Mass/Vol] 137 mg/dL Abnormal [facility].; [facility], [facility]. Cholesterol.total/Chol esterol in HDL [Mass ratio] 3.5 {ratio} Normal [facility].; [facility], [facility] CO2 [Moles/Vol] 26 mmol/L Normal 20 - 32 mmol/L [facility].; [facility], [facility]. Creatinine [Mass/Vol] 0.67 mg/dL Normal 0.50 - 0.99 mg/dL [facility], [facility].; [facility], [facility] GFR/1.73 sq M.predicted among blacks MDRD (S/P/Bld) [Vol rate/Area] 104 {ML/MIN/1.73M2} Normal [facility].; [facility]. GFR/1.73 sq M.predicted MDRD (S/P/Bld) [Vol rate/Area] 90 {ML/MIN/1.73M2} Normal [facility].; [facility] [employer] [facility] Globulin (S) [Mass/Vol] 2.7 g/dL Normal 1.9 - 3.7 g/dL [facility].; [facility]. Glucose [Mass/Vol] 95 mg/dL Normal 65 - 99 mg/dL [facility]; [facility]. Potassium [Moles/Vol] 4.2 mmol/L Normal 3.5 - 5.3 mmol/L [facility]; [facility] Protein [Mass/Vol] 6.5 g/dL Normal 6.1 - 8.1 g/dL [facility].; [facility]. Sodium [Moles/Vol] 136 mmol/L Normal 135 - 146 mmol/L [facility].; [facility]. Triglyceride [Mass/Vol] 137 mg/dL Normal [facility]; [facility] [facility]. Urea nitrogen [Mass/Vol] 19 mg/dL Normal 7 - 25 mg/dL [facility]; [facility] [employer] [facility], [facility] Urea nitrogen/Creatinine [Mass ratio] 28.8 mg/mg Abnormal 6 - 22 [facility]; [facility] [facility] Laboratory - Chemistry and C hemistry - challengeon 10-04-2018 Bilirubin Ql (U) Negative Normal [facility].; [facility] [facility] [facility] Ketones Ql (U) Negative Normal [facility].; [facility] [facility]. pH (U) 6.0 [pH] Normal [facility].; [facility] [facility], [facility]. Specific gravity (U) [Rel density] 1.025 Normal [facility].; [employer] [facility] Urobilinogen Qn (U) 0.2 mg/dL Normal [facility].; [employer]. Laboratory - Hematology and Cell countson 10-04-2018 Hemoglobin Ql (U) trace, hemolyzed Abnormal [facility].; [employer]. Laboratory - Specimen inform ationon 10-04-2018 Appearance (U) clear Normal [employer].; [employer]. Color (U) yellow Normal [employer].; [employer]. Laboratory - Urinalysison Glucose Test strip (U) [Mass/Vol] Negative Normal [employer].; [employer]. Leukocyte esterase Test strip Ql (U) small Abnormal [employer].; [employer]. Nitrite Ql (U) Negative Normal [employer].; [employer]. Protein Ql (U) 30 mg/dL Abnormal [employer].; [employer]. Laboratory - Chemistry and C hemistry - challengeon 11-09-2017 Bilirubin Ql (U) Negative Normal [employer].; [employer]. Ketones Ql (U) Negative Normal [employer].; [employer]. pH (U) 7.0 [pH] Normal [employer].; [employer]. Specific gravity (U) [Rel density] 1.020 Normal [employer].; [employer]. Urobilinogen Qn (U) 0.2 mg/dL Normal [facility] [employer].; [employer]. Laboratory - Hematology and Cell countson 11-09-2017 Hemoglobin Ql (U) Negative Normal [employer].; [employer]. Laboratory - Specimen inform ationon 11-09-2017 Appearance (U) cloudy Abnormal [employer].; [employer]. Color (U) yellow Normal [employer].; [employer]. Laboratory - Urinalysison Glucose Test strip (U) [Mass/Vol] Negative Normal [employer].; [employer]. Leukocyte esterase Test strip Ql (U) small Abnormal [employer].; [facility]. Nitrite Ql (U) Negative Normal [facility].; [facility] [facility]. Protein Ql (U) Negative Normal [facility].; [facility]. Cardiac Troponin-Ion 017 Troponin I.cardiac mass conc ng/mL Normal < 45.0 [facility] Comment on above: Result Comment: Elev ation of troponin indicates some degree of myocardial necrosis butunless there is a significant rise and/or fall (if elevated) identified,it unlikely that an acute event has taken placeSamples from patients routinely receiving high dose biotin therapy(100-300 mg/day) may show falsely decreased results. Please correlateclinically. Performed By: #### T SH, CTNI, LIPID ####Unless otherwise noted, all testing performed by [address] [phone]: [id number] Director: Robin Hills M.D. Culture, Urineon 10-26-2017 Culture, Urine Test Name: Culture, UrineCulture Status: FinalMicro Source: UrineORGANISM ID: 1 - >100,000 CFU/ml MORGANELLA MORGANII SSP. MORGANII AVOID fluoroquinolone treatment whenever possible. Risk of serious side effects may outweigh benefit.ANTIBIOTIC INTERPRETATION DARBY STATUSAmpicillin R >= 32 FAmp/Sulbactam S 8 FCefazolin R >= 64 FCefepime S <= 1 FCeftazidime S <= 1 FCeftriaxone S <= 1 FCiprofloxacin S <= 0.25 FGentamicin S <= 1 FNitrofurantoin R 128 FPiperacillin/Tazo S <= 4 FTobramycin S <= 1 FTrimeth/Sulfa S <= 20 F Normal [facility] Comment on above: Performed By: #### C BCDIF, PT, CMET, EDCTNI, LIPASE ####Unless otherwise noted, all testing performed by [address] [phone]: [id number] Director: Robin Hills M.D. Lipid Panelon 10-26-2017 Cholesterol 188 mg/dL Normal 100-199 [facility] Comment on above: Performed By: #### T SH, CTNI, LIPID ####Unless otherwise noted, all testing performed by [address] [phone]: [id number] Director: Robin Hills M.D. Cholesterol in VLDL mass conc 25 mg/dL Normal 5-40 [facility] Comment on above: Performed By: #### T SH, CTNI, LIPID ####Unless otherwise noted, all testing performed by [address] [phone]: [id number] Director: Robin Hills M.D. Cholesterol to HDL Ratio 3.2 {ratio} Normal 3.2-4.5 [facility] Comment on above: Result Comment: Bijan le Coronary Heart Disease Risk Factor (CHDRF):Average risk= 4.41/2 Average risk= 3.32 times Average risk= 7.1 Performed By: #### T SH, CTNI, LIPID ####Unless otherwise noted, all testing performed by [address] [phone]: [id number] Director: Robin Hills M.D. HDL Cholesterol 59 mg/dL Normal 40-59 [facility] Comment on above: Performed By: #### T SH, CTNI, LIPID ####Unless otherwise noted, all testing performed by [address] [phone]: [id number] Director: Robin Hills M.D. LDL Cholesterol 104 mg/dL Normal 10-150 [facility] Comment on above: Performed By: #### T SH, CTNI, LIPID ####Unless otherwise noted, all testing performed by [address] [phone]: [id number] Director: Robin Hills M.D. Triglyceride 123 mg/dL Normal 30-150 [facility] Comment on above: Performed By: #### T SH, CTNI, LIPID ####Unless otherwise noted, all testing performed by [address] [phone]: [id number] Director: Robin Hills M.D. Troponin I.cardiac mass conc No Biomarker evidence of myocardial injury within the past 14 hours. Normal [facility] Comment on above: Performed By: #### T SH, CTNI, LIPID ####Unless otherwise noted, all testing performed by [address] [phone]: [id number] Director: Robin Hills M.D. TSHon 10-26-2017 Thyroid stimulating hormone (TSH) 3.53 uIU/mL Normal 0.32-5.00 [facility] Comment on above: Result Comment: Samp les from patients routinely receiving high dose biotin therapy(100-300 mg/day) may show falsely decreased results. Please correlateclinically. Performed By: #### T SH, CTNI, LIPID ####Unless otherwise noted, all testing performed by [address] [phone]: [id number] Director: Robin Hills M.D. Urine with Indicated Culture on 10-26-2017 Bilirubin,Urine Negative Normal NEG;NEGATI VE [facility] Comment on above: Performed By: #### C BCDIF, PT, CMET, EDCTNI, LIPASE ####Unless otherwise noted, all testing performed by [facility] [address] [phone]: [id number] Director: Robin Hills M.D. Blood,Urine Negative Normal NEG;NEGATI VE [facility] Comment on above: Performed By: #### C BCDIF, PT, CMET, EDCTNI, LIPASE ####Unless otherwise noted, all testing performed by [address] [phone]: [id number] Director: Robin Hills M.D. Ketone,Urine Negative Normal NEGATIVE;N EG [facility] Comment on above: Performed By: #### C BCDIF, PT, CMET, EDCTNI, LIPASE ####Unless otherwise noted, all testing performed by [address] [phone]: [id number] Director: Robin Hills M.D. Leuk.Esterase,Urine Small Abnormal Negative [facility] Comment on above: Performed By: #### C BCDIF, PT, CMET, EDCTNI, LIPASE ####Unless otherwise noted, all testing performed by [address] [phone]: [id number] Director: Robin Hills M.D. Mucus, Urine Few Abnormal None Seen [facility] Comment on above: Performed By: #### C BCDIF, PT, CMET, EDCTNI, LIPASE ####Unless otherwise noted, all testing performed by [address] [phone]: [id number] Director: Robin Hills M.D. Nitrite,Urine Positive Abnormal NEG;NEGATI VE [facility] Comment on above: Performed By: #### C BCDIF, PT, CMET, EDCTNI, LIPASE ####Unless otherwise noted, all testing performed by [address] [phone]: [id number] Director: Robin Hills M.D. Protein,Urine Negative Normal NEGATIVE;N EG [facility] Comment on above: Performed By: #### C BCDIF, PT, CMET, EDCTNI, LIPASE ####Unless otherwise noted, all testing performed by [address] [phone]: [id number] Director: Roibn Hills M.D. Specific Harlan,Urine 1.010 Normal 1.003 -1.02 9 [facility] Comment on above: Performed By: #### C BCDIF, PT, CMET, EDCTNI, LIPASE ####Unless otherwise noted, all testing performed by [address] [phone]: [id number] Director: Robin Hills M.D. Squamous Epithelial 5-10 Abnormal 0-3+;NS [facility] Comment on above: Performed By: #### C BCDIF, PT, CMET, EDCTNI, LIPASE ####Unless otherwise noted, all testing performed by [address] [phone]: [id number] Director: Robin Hills M.D. Urine, bacteria in sediment Many Abnormal NS;RARE [facility] Comment on above: Performed By: #### C BCDIF, PT, CMET, EDCTNI, LIPASE ####Unless otherwise noted, all testing performed by [address] [phone]: [id number] Director: Robin Hills M.D. Urine, character Slightly Cloudy Normal [facility] Comment on above: Performed By: #### C BCDIF, PT, CMET, EDCTNI, LIPASE ####Unless otherwise noted, all testing performed by [address] [phone]: [id number] Director: Robin Hills M.D. Urine, color Yellow Normal [facility] Comment on above: Performed By: #### C BCDIF, PT, CMET, EDCTNI, LIPASE ####Unless otherwise noted, all testing performed by [address] [phone]: [id number] Director: Robin Hills M.D. Urine, erythrocytes in sediment by area 0-3 Normal 0-3+;NS [facility] Comment on above: Performed By: #### C BCDIF, PT, CMET, EDCTNI, LIPASE ####Unless otherwise noted, all testing performed by [address] [phone]: [id number] Director: Robin Hills M.D. Urine, glucose presence Negative Normal NEG;NEGATI VE [facility] Comment on above: Performed By: #### C BCDIF, PT, CMET, EDCTNI, LIPASE ####Unless otherwise noted, all testing performed by [address] [phone]: [id number] Director: Robin Hills M.D. Urine, leukocytes in sedmiment 40-60 Abnormal 0-3+;3-5+; NS [facility] Comment on above: Performed By: #### C BCDIF, PT, CMET, EDCTNI, LIPASE ####Unless otherwise noted, all testing performed by [address] [phone]: [id number] Director: Robin Hills M.D. Urine, pH 6.5 [pH] Normal 4.5-8.0 [facility] Comment on above: Performed By: #### C BCDIF, PT, CMET, EDCTNI, LIPASE ####Unless otherwise noted, all testing performed by [address] [phone]: [id number] Director: Robin Hills M.D. Urobilinogen,Urine 0.2 EU/dL Normal 0.2 [facility] Comment on above: Performed By: #### C BCDIF, PT, CMET, EDCTNI, LIPASE ####Unless otherwise noted, all testing performed by [address] [phone]: [id number] Director: Robin Hills M.D. CBC with Diffon 10-25-2017 Basophils Auto #/vol (Bld) 0.1 K/mcL Normal 0-0.2 [facility] Comment on above: Performed By: #### C BCDIF, PT, CMET, EDCTNI, LIPASE ####Unless otherwise noted, all testing performed by [address] [phone]: [id number] Director: Robin Hills M.D. Basophils/100 WBC Auto (Bld) 0.7 % Normal [facility] Comment on above: Performed By: #### C BCDIF, PT, CMET, EDCTNI, LIPASE ####Unless otherwise noted, all testing performed by [address] [phone]: [id number] Director: Robin Hills M.D. Eosinophils 0.2 K/mcL Normal 0-0.5 [facility] Comment on above: Performed By: #### C BCDIF, PT, CMET, EDCTNI, LIPASE ####Unless otherwise noted, all testing performed by [address] [phone]: [id number] Director: Robin Hills M.D. Eosinophils/100 leukocytes 2.0 % Normal [facility] Comment on above: Performed By: #### C BCDIF, PT, CMET, EDCTNI, LIPASE ####Unless otherwise noted, all testing performed by [address] [phone]: [id number] Director: Robin Hills M.D. Erythrocyte distribution width Auto Ratio (RBC) 13.3 % Normal 10-14.4 [facility] Comment on above: Performed By: #### C BCDIF, PT, CMET, EDCTNI, LIPASE ####Unless otherwise noted, all testing performed by [address] [phone]: [id number] Director: Robin Hills M.D. Erythrocytes (RBC) 4.57 M/mcL Normal 3.7-5.0 [facility] Comment on above: Performed By: #### C BCDIF, PT, CMET, EDCTNI, LIPASE ####Unless otherwise noted, all testing performed by [address] [phone]: [id number] Director: Robin Hills M.D. Hematocrit (HCT) 41.4 % Normal 34.4-44.8 [facility] Comment on above: Performed By: #### C BCDIF, PT, CMET, EDCTNI, LIPASE ####Unless otherwise noted, all testing performed by [address] [phone]: [id number] Director: Robin Hills M.D. Hemoglobin mass conc (Bld) 13.7 g/dL Normal 11.6-15.4 [facility] Comment on above: Performed By: #### C BCDIF, PT, CMET, EDCTNI, LIPASE ####Unless otherwise noted, all testing performed by [place] [phone]: [id number] Director: Robin Hills M.D. Lymphocytes 2.0 K/mcL Normal 1.0-3.7 [facility] Comment on above: Performed By: #### C BCDIF, PT, CMET, EDCTNI, LIPASE ####Unless otherwise noted, all testing performed by [address] [phone]: [id number] Director: Robin Hills M.D. Lymphocytes/100 leukocytes 21.3 % Normal [facility] Comment on above: Performed By: #### C BCDIF, PT, CMET, EDCTNI, LIPASE ####Unless otherwise noted, all testing performed by [address] [phone]: [id number] Director: oRbin Hills M.D. MCH 30.0 pg Normal 27.9-33.9 [facility] Comment on above: Performed By: #### C BCDIF, PT, CMET, EDCTNI, LIPASE ####Unless otherwise noted, all testing performed by [address] [phone]: [id number] Director: Robin Hills M.D. MCHC mass conc (RBC) 33.2 g/dL Normal 33.1-35.1 [facility] Comment on above: Performed By: #### C BCDIF, PT, CMET, EDCTNI, LIPASE ####Unless otherwise noted, all testing performed by [address] [phone]: [id number] Director: Robin Hills M.D. MCV 90.5 fL Normal 82.6-98.9 [facility] Comment on above: Performed By: #### C BCDIF, PT, CMET, EDCTNI, LIPASE ####Unless otherwise noted, all testing performed by [address] [phone]: [id number] Director: Robin Hills M.D. Monocytes 0.7 K/mcL High 0.1-0.6 [facility] Comment on above: Performed By: #### C BCDIF, PT, CMET, EDCTNI, LIPASE ####Unless otherwise noted, all testing performed by [address] [phone]: [id number] Director: Robin Hills M.D. Monocytes/100 leukocytes 7.1 % Normal [facility] Comment on above: Performed By: #### C BCDIF, PT, CMET, EDCTNI, LIPASE ####Unless otherwise noted, all testing performed by [address] [phone]: [id number] Director: Robin Hills M.D. Neutrophils 6.3 K/mcL Normal 1.2-6.9 [facility] Comment on above: Performed By: #### C BCDIF, PT, CMET, EDCTNI, LIPASE ####Unless otherwise noted, all testing performed by [address] [phone]: [id number] Director: Robin Hills M.D. Platelet mean volume (PMV) 7.6 fL Normal 7.0-10.6 [facility] Comment on above: Performed By: #### C BCDIF, PT, CMET, EDCTNI, LIPASE ####Unless otherwise noted, all testing performed by [address] [phone]: [id number] Director: Robin Hills M.D. Platelets 314 K/mcL Normal 162-402 [facility] Comment on above: Performed By: #### C BCDIF, PT, CMET, EDCTNI, LIPASE ####Unless otherwise noted, all testing performed by [address] [phone]: [id number] Director: Robin Hills M.D. Segmented Neut % 68.9 % Normal [facility] Comment on above: Performed By: #### C BCDIF, PT, CMET, EDCTNI, LIPASE ####Unless otherwise noted, all testing performed by [address] [phone]: [id number] Director: Robin Hills M.D. WBC (Leukocytes) 9.2 K/mcL Normal 3.4-10.6 [facility] Comment on above: Performed By: #### C BCDIF, PT, CMET, EDCTNI, LIPASE ####Unless otherwise noted, all testing performed by [address] [phone]: [id number] Director: Robin Hills M.D. CHEST (ONE VIEW ONLY)on 10-03 CHEST (ONE VIEW ONLY) Final ReportAccession No: [id number] Performed: Oct 25 2017 3:25PMExamination: CHEST (ONE VIEW ONLY)Vomiting and/or nauseaCHEST (ONE VIEW ONLY) 10/25/2017 3:25 PMFINDINGS: The lungs are well-expanded. There is groundglass density atthe left lung base. There is subtle blunting of the costophrenic sulci.Cardiac silhouette is enlarged. There is moderate thoracic spondylosis.No pneumothorax.IMPRESSION:1. Small bilateral pleural effusions.2. Borderline enlargement of cardiac silhouette.Interpreting Physician: UBALDO CHÁVEZ M.D.Trans: : cc: Normal [facility] CT BRAIN W/O CONTRASTon 10-03 CT BRAIN W/O CONTRAST Final ReportAccession No: [id number] Performed: Oct 25 2017 5:11PMExamination: CT BRAIN W/O CONTRASTCLINICAL HISTORY: Generalized weakness and dizziness with nausea andvomiting.CT BRAIN ON 10/25/2017 AT 5:11 PM:COMPARISON: None.TECHNIQUE: A noncontrast head CT was performed.FINDINGS: There is no midline shift or mass effect. The CSF spaces toinclude the ventricles, cisterns and cerebral sulci are age appropriate.There are no pathologic fluid collections or evidence of acuteintracranial hemorrhage.There are mild hypoattenuating regions within the white matter which aremost compatible with age indeterminate microvascular ischemic changes.There are atherosclerotic calcifications within the carotid siphons.Calcifications are seen within the left posterior parietal region.There is no acute sinus disease. No significant mastoid air cell fluid.The imaged soft tissues of the neck and orbits are unremarkable.IMPRESSION:1. Mild hypoattenuating regions within the white matter which are mostcompatible with age indeterminate microvascular ischemic changes.2. No acute intracranial hemorrhage, midline shift or mass effect.3. There are calcifications in the posterior left parietal region, likelywithin the castro matter. Comparison to prior examinations is recommendedto ensure stability.LEOLA Lee/KAVITHAlectronically Signed by and VerifiedDate Report Signed: 10/26/2017 6:39:08 PMInterpreting Physician: FELIPE,Trans: [id number] : cc: Normal [facility] Comprehensive Metabolic Pane anish 10-25-2017 Alanine aminotransferase (ALT) 42 U/L Normal 14-65 [facility] Comment on above: Result Comment: This test result might be falsely depressed or falsely elevated onsamples drawn from patients taking Sulfasalazine and Sulfapyridine.Venipuncture should occur prior to taking either of these drugs. Performed By: #### C BCDIF, PT, CMET, EDCTNI, LIPASE ####Unless otherwise noted, all testing performed by [address] [phone]: [id number] Director: Robin Hills M.D. Albumin 3.2 g/dL Normal 3.2-5.2 [facility] Comment on above: Performed By: #### C BCDIF, PT, CMET, EDCTNI, LIPASE ####Unless otherwise noted, all testing performed by [address] [phone]: [id number] Director: Robin Hills M.D. Alkaline phosphatase (ALP) 72 U/L Normal 40-150 [facility] Comment on above: Performed By: #### C BCDIF, PT, CMET, EDCTNI, LIPASE ####Unless otherwise noted, all testing performed by [address] [phone]: [id number] Director: Robin Hills M.D. Aspartate aminotransferase (AST) 38 U/L Normal 0-45 [facility] Comment on above: Result Comment: This test result might be falsely depressed or falsely elevated onsamples drawn from patients taking Sulfasalazine and Sulfapyridine.Venipuncture should occur prior to taking either of these drugs. Performed By: #### C BCDIF, PT, CMET, EDCTNI, LIPASE ####Unless otherwise noted, all testing performed by [address] [phone]: [id number] Director: Robin Hills M.D. Bilirubin (total) 0.4 mg/dL Normal 0.3-1.2 [facility] Comment on above: Performed By: #### C BCDIF, PT, CMET, EDCTNI, LIPASE ####Unless otherwise noted, all testing performed by [address] [phone]: [id number] Director: Robin Hills M.D. Calcium 8.9 mg/dL Normal 8.4-10.2 [facility] Comment on above: Performed By: #### C BCDIF, PT, CMET, EDCTNI, LIPASE ####Unless otherwise noted, all testing performed by [address] [phone]: [id number] Director: Robin Hills M.D. Chloride 105 mmol/L Normal 98-108 [facility] Comment on above: Performed By: #### C BCDIF, PT, CMET, EDCTNI, LIPASE ####Unless otherwise noted, all testing performed by [address] [phone]: [id number] Director: Robin Hills M.D. CO2 24 mmol/L Normal 21-32 [facility] Comment on above: Performed By: #### C BCDIF, PT, CMET, EDCTNI, LIPASE ####Unless otherwise noted, all testing performed by [address] [phone]: [id number] Director: Robin Hills M.D. Creatinine 0.89 mg/dL Normal 0.60-1.20 [facility] Comment on above: Performed By: #### C BCDIF, PT, CMET, EDCTNI, LIPASE ####Unless otherwise noted, all testing performed by [address] [phone]: [id number] Director: oRbin Hills M.D. eGFR (black) mL/min/{1.73_m2} Normal [facility] Comment on above: Result Comment: Afri can [place] GFR Calc Performed By: #### C BCDIF, PT, CMET, EDCTNI, LIPASE ####Unless otherwise noted, all testing performed by [address] [phone]: [id number] Director: Robin Hills M.D. eGFR (non-black) mL/min/{1.73_m2} Normal [facility] Comment on above: Result Comment: Non- GFR CalceGFR is an estimated Glomerular Filtration Rate based on the valueof the patient's serum creatinine. In outpatients, eGFR should be usedas a helpful tool in screening for CKD. In inpatients or patients withacute renal failure, eGFR represents the GFR at the moment of the drawand should be used with caution. Performed By: #### C BCDIF, PT, CMET, EDCTNI, LIPASE ####Unless otherwise noted, all testing performed by [address] [phone]: [id number] Director: Robin Hills M.D. Glucose mass conc 135 mg/dL High 70-99 [facility] Comment on above: Result Comment: This test result might be falsely depressed or falsely elevated onsamples drawn from patients taking Sulfasalazine and Sulfapyridine.Venipuncture should occur prior to taking either of these drugs. Performed By: #### C BCDIF, PT, CMET, EDCTNI, LIPASE ####Unless otherwise noted, all testing performed by [address] [phone]: [id number] Director: Robin Hills M.D. Potassium molar conc 3.8 mmol/L Normal 3.5-5.1 [facility] Comment on above: Performed By: #### C BCDIF, PT, CMET, EDCTNI, LIPASE ####Unless otherwise noted, all testing performed by [address] [phone]: [id number] Director: Robin Hills M.D. Protein 7.6 g/dL Normal 6.0-8.0 [facility] Comment on above: Performed By: #### C BCDIF, PT, CMET, EDCTNI, LIPASE ####Unless otherwise noted, all testing performed by [address] [phone]: [id number] Director: Robin Hills M.D. Sodium 138 mmol/L Normal 135-145 [facility] Comment on above: Performed By: #### C BCDIF, PT, CMET, EDCTNI, LIPASE ####Unless otherwise noted, all testing performed by [address] [phone]: [id number] Director: Robin Hills M.D. Urea nitrogen 12 mg/dL Normal 8-25 [facility] Comment on above: Performed By: #### C BCDIF, PT, CMET, EDCTNI, LIPASE ####Unless otherwise noted, all testing performed by [address] [phone]: [id number] Director: Robin Hills M.D. ED Cardiac Troponin-Ion 10-03 Troponin I.cardiac mass conc ng/mL Normal < 45 [facility] Comment on above: Result Comment: Elev ation of troponin indicates some degree of myocardial necrosis butunless there is a significant rise and/or fall (if elevated) identified,it unlikely that an acute event has taken placeSamples from patients routinely receiving high dose biotin therapy(100-300 mg/day) may show falsely decreased results. Please correlateclinically. Performed By: #### C BCDIF, PT, CMET, EDCTNI, LIPASE ####Unless otherwise noted, all testing performed by [address] [phone]: [id number] Director: Robin Hills M.D. Influenza A,B Rapid Molecula dot 10-25-2017 Influenza A Rapid Molecular Not Detected Normal Not Detected [facility] Comment on above: Performed By: #### F LUNAT ####Unless otherwise noted, all testing performed by [address] [phone]: [id number] Director: Robin Hills M.D. Influenza B Rapid Molecular Not Detected Normal Not Detected [facility] Comment on above: Performed By: #### F LUNAT ####Unless otherwise noted, all testing performed by [address] [phone]: [id number] Director: Robin Hills M.D. Lipaseon 10-25-2017 Lipase 115 U/L Normal 73-393 [facility] Comment on above: Performed By: #### C BCDIF, PT, CMET, EDCTNI, LIPASE ####Unless otherwise noted, all testing performed by [address] [phone]: [id number] Director: Robin Hills M.D. Protimeon 10-25-2017 INR Coag RelTime (PPP) 0.90 {INR} Normal [facility] Comment on above: Result Comment: The [place] [employer] recommended therapeutic rangefor Warfarin (Coumadin) therapy goals:PROPHYLAXIS/TREATMENT of:INRVenous Thrombosis, Pulmonary Embolism2.0-3.0Prevention of VTE (Orthopedic Surgery)2.0-3.0Atrial Fibrillation2.0-3.0Myocardial Infarction2.0-3.0Mechanical Prosthetic Heart Valves (Aortic position)2.0-3.0Mechanical Prosthetic Heart Valves (Mitral Position)2.5-3.5American College of Chest Physicians evidence-based clinical practiceguidelines. CHEST. 2012 (9th ed) Performed By: #### C BCDIF, PT, CMET, EDCTNI, LIPASE ####Unless otherwise noted, all testing performed by [address] [phone]: [id number] Director: Robin Hills M.D. Prothrombin time (PT) Coag time (PPP) 11.8 s Normal 11.8-14.3 [facility] Comment on above: Performed By: #### C BCDIF, PT, CMET, EDCTNI, LIPASE ####Unless otherwise noted, all testing performed by [address] [phone]: [id number] Director: Robin Hills M.D. Laboratory - Chemistry and C hemistry - challengeon 04-29-2017 Albumin [Mass/Vol] 3.9 g/dL Normal 3.6 - 5.1 g/dL [facility] [employer], [employer]. Albumin/Globulin [Mass ratio] 1.3 {ratio} Normal 1.0 - 2.5 [facility], [employer].; [employer], [employer] ALP [Catalytic activity/Vol] 69 U/L Normal 33 - 130 U/L [employer] [facility].; [employer], [employer]. ALT [Catalytic activity/Vol] 27 U/L Normal 6 - 29 U/L [employer], [employer]. AST [Catalytic activity/Vol] 26 U/L Normal 10 - 35 U/L [employer].; [employer], [employer] Bilirubin [Mass/Vol] 0.4 mg/dL Normal 0.2 - 1 .2 mg/dL [employer].; [employer], [employer]. Calcium [Mass/Vol] 9.2 mg/dL Normal 8.6 - 10. 4 mg/dL [employer].; [employer], [employer]. Chloride [Moles/Vol] 102 mmol/L Normal 98 - 11 0 mmol/L [facility] [facility].; [employer], [employer]. Cholesterol [Mass/Vol] 193 mg/dL Normal 125 - 200 mg/dL [employer], [employer].; [employer], [employer]. Cholesterol in HDL [Mass/Vol] 61 mg/dL Normal [employer]. Cholesterol in LDL [Mass/Vol] 109 mg/dL Normal [employer].; [employer], [employer]. Cholesterol non HDL [Mass/Vol] 132 mg/dL Normal [employer].; [employer], [employer]. Cholesterol.total/Chol esterol in HDL [Mass ratio] 3.2 {ratio} Normal [employer], [employer].; [employer], [employer]. CO2 [Moles/Vol] 27 mmol/L Normal 20 - 31 mmol/L [employer], [employer]. Creatinine [Mass/Vol] 0.68 mg/dL Normal 0.50 - 0.99 mg/dL [facility].; [employer] [facility], [facility]. GFR/1.73 sq M.predicted among blacks MDRD (S/P/Bld) [Vol rate/Area] 105 {ML/MIN/1.73M2} Normal [facility], [facility].; [facility], [facility]. GFR/1.73 sq M.predicted MDRD (S/P/Bld) [Vol rate/Area] 91 {ML/MIN/1.73M2} Normal [facility], [facility].; [employer], [facility]. Globulin (S) [Mass/Vol] 2.9 g/dL Normal 1.9 - 3.7 g/dL [facility].; [employer], [employer]. Glucose [Mass/Vol] 81 mg/dL Normal 65 - 99 mg/dL [facility], [facility].; [employer], [employer]. Potassium [Moles/Vol] 4.2 mmol/L Normal 3.5 - 5.3 mmol/L [facility].; [employer], [employer]. Protein [Mass/Vol] 6.8 g/dL Normal 6.1 - 8.1 g/dL [facility], [facility].; [employer], [employer]. Sodium [Moles/Vol] 138 mmol/L Normal 135 - 146 mmol/L [facility].; [employer], [employer]. Triglyceride [Mass/Vol] 117 mg/dL Normal [facility], [facility].; [employer], [employer]. Urea nitrogen [Mass/Vol] 17 mg/dL Normal 7 - 25 mg/dL [facility].; [employer], [employer]. Urea nitrogen/Creatinine [Mass ratio] 25.0 mg/mg Abnormal 6 - 22 [facility].; [employer], [employer] Laboratory - Chemistry and C hemistry - challengeon 04-24-2016 25-hydroxyvitamin D3 [Mass/Vol] 31 ng/mL Normal 30 - 100 ng/mL [facility].; [employer] Calcium [Mass/Vol] 9.5 mg/dL Normal 8.6 - 10. 4 mg/dL [facility].; [facility]. Chloride [Moles/Vol] 105 mmol/L Normal 98 - 11 0 mmol/L [facility].; [facility]. CO2 [Moles/Vol] 15 mmol/L Abnormal 19 - 30 mmol/L [facility].; [facility] Creatinine [Mass/Vol] 0.65 mg/dL Normal 0.50 - 0.99 mg/dL [facility].; [facility], [facility]. GFR/1.73 sq M.predicted among blacks MDRD (S/P/Bld) [Vol rate/Area] 107 {ML/MIN/1.73M2} Normal [facility].; [facility], [facility] GFR/1.73 sq M.predicted MDRD (S/P/Bld) [Vol rate/Area] 93 {ML/MIN/1.73M2} Normal [facility].; [employer] [facility] Glucose [Mass/Vol] 81 mg/dL Normal 65 - 99 mg/dL [facility].; [facility], [facility]. Potassium [Moles/Vol] 4.7 mmol/L Normal 3.5 - 5.3 mmol/L [facility].; [facility], [facility]. Sodium [Moles/Vol] 138 mmol/L Normal 135 - 146 mmol/L [facility].; [facility], [facility]. Urea nitrogen [Mass/Vol] 17 mg/dL Normal 7 - 25 mg/dL [facility].; [facility], [facility] Urea nitrogen/Creatinine [Mass ratio] 26.8 mg/mg Abnormal 6 - 22 [facility].; [facility], [facility]. Laboratory - Chemistry and C hemistry - challengeon 10-03-2015 25-hydroxyvitamin D3 [Mass/Vol] 22 ng/mL Abnormal 30 - 100 ng/mL [facility].; [facility], [facility]. Albumin [Mass/Vol] 3.9 g/dL Normal 3.6 - 5.1 g/dL [facility].; [employer], [facility] Albumin/Globulin [Mass ratio] 1.2 {ratio} Normal 1.0 - 2.5 [facility].; [employer] [facility]. ALP [Catalytic activity/Vol] 69 U/L Normal 33 - 130 U/L [facility].; [facility], [facility]. ALT [Catalytic activity/Vol] 34 U/L Abnormal 6 - 29 U/L [facility].; [facility], [facility]. AST [Catalytic activity/Vol] 26 U/L Normal 10 - 35 U/L [facility].; [facility], [facility]. Bilirubin [Mass/Vol] 0.5 mg/dL Normal 0.2 - 1 .2 mg/dL [facility].; [facility], [facility]. Calcium [Mass/Vol] 9.5 mg/dL Normal 8.6 - 10. 4 mg/dL [facility].; [facility], [facility]. Chloride [Moles/Vol] 102 mmol/L Normal 98 - 11 0 mmol/L [facility], [facility].; [facility], [facility]. Cholesterol [Mass/Vol] 221 mg/dL Abnormal 125 - 200 mg/dL [facility].; [facility], [facility]. Cholesterol in HDL [Mass/Vol] 60 mg/dL Normal [facility].; [employer] [facility]. Cholesterol in LDL [Mass/Vol] 131 mg/dL Abnormal [facility].; [facility], [facility]. Cholesterol non HDL [Mass/Vol] 161 mg/dL Abnormal [facility].; [facility], [facility]. Cholesterol.total/Chol esterol in HDL [Mass ratio] 3.7 {ratio} Normal [facility].; [employer] [facility]. CO2 [Moles/Vol] 26 mmol/L Normal 19 - 30 mmol/L [facility].; [facility], [facility]. Creatinine [Mass/Vol] 0.73 mg/dL Normal 0.50 - 0.99 mg/dL [facility].; [facility], [facility]. GFR/1.73 sq M.predicted among blacks MDRD (S/P/Bld) [Vol rate/Area] 99 {ML/MIN/1.73M2} Normal [facility].; [facility], [facility]. GFR/1.73 sq M.predicted MDRD (S/P/Bld) [Vol rate/Area] 86 {ML/MIN/1.73M2} Normal [facility]; [facility], [facility] Globulin (S) [Mass/Vol] 3.2 g/dL Normal 1.9 - 3.7 g/dL [facility].; [facility], [facility] Glucose [Mass/Vol] 84 mg/dL Normal 65 - 99 mg/dL [facility].; [facility], [facility] Potassium [Moles/Vol] 4.2 mmol/L Normal 3.5 - 5.3 mmol/L [facility]; [facility], [facility] Protein [Mass/Vol] 7.1 g/dL Normal 6.1 - 8.1 g/dL [facility]; [facility], [facility] Sodium [Moles/Vol] 139 mmol/L Normal 135 - 146 mmol/L [facility].; [facility], [facility] Triglyceride [Mass/Vol] 150 mg/dL Abnormal [facility]; [facility], [facility] TSH Qn 2.46 m[IU]/L Normal 0.40 - 4.50 {mIU/L} [facility].; [facility], [facility]. Urea nitrogen [Mass/Vol] 17 mg/dL Normal 7 - 25 mg/dL [facility], [facility].; [facility], [facility] Urea nitrogen/Creatinine [Mass ratio] 23.7 mg/mg Abnormal 6 - 22 [facility].; [facility], [facility] Laboratory - Chemistry and C hemistry - challengeon 04-04-2015 Calcium [Mass/Vol] 9.1 mg/dL Normal 8.6 - 10. 4 mg/dL [facility], [facility].; [facility], [facility] Chloride [Moles/Vol] 104 mmol/L Normal 98 - 11 0 mmol/L [facility], [facility].; [facility], [facility]. CO2 [Moles/Vol] 21 mmol/L Normal 19 - 30 mmol/L [facility], [facility].; [facility], [facility] Creatinine [Mass/Vol] 0.68 mg/dL Normal 0.50 - 0.99 mg/dL [facility].; [facility]. GFR/1.73 sq M.predicted among blacks MDRD (S/P/Bld) [Vol rate/Area] 106 {ML/MIN/1.73M2} Normal [facility].; [facility], [facility] GFR/1.73 sq M.predicted MDRD (S/P/Bld) [Vol rate/Area] 92 {ML/MIN/1.73M2} Normal [facility].; [facility] Glucose [Mass/Vol] 82 mg/dL Normal 65 - 99 mg/dL [facility], [facility].; [facility], [facility]. Potassium [Moles/Vol] 4.5 mmol/L Normal 3.5 - 5.3 mmol/L [facility].; [facility], [facility]. Sodium [Moles/Vol] 138 mmol/L Normal 135 - 146 mmol/L [facility], [facility].; [facility], [facility]. Urea nitrogen [Mass/Vol] 16 mg/dL Normal 7 - 25 mg/dL [facility].; [facility], [facility] Urea nitrogen/Creatinine [Mass ratio] 24.0 mg/mg Abnormal 6 - 22 [facility]; [facility], [facility]. Laboratory - Chemistry and C hemistry - challengeon 10-04-2014 Albumin [Mass/Vol] 4.0 g/dL Normal 3.6 - 5.1 g/dL [facility], [facility].; [facility], [facility]. Albumin/Globulin [Mass ratio] 1.3 {ratio} Normal 1.0 - 2.5 [facility].; [facility]. ALP [Catalytic activity/Vol] 70 U/L Normal 33 - 130 U/L [facility].; [facility], [facility]. ALT [Catalytic activity/Vol] 27 U/L Normal 6 - 29 U/L [facility], [facility].; [facility], [facility]. AST [Catalytic activity/Vol] 24 U/L Normal 10 - 35 U/L [facility], [facility].; [facility], [facility]. Bilirubin [Mass/Vol] 0.4 mg/dL Normal 0.2 - 1 .2 mg/dL [facility], [facility].; [facility], [facility]. Calcium [Mass/Vol] 9.3 mg/dL Normal 8.6 - 10. 4 mg/dL [facility], [facility].; [facility], [facility]. Chloride [Moles/Vol] 103 mmol/L Normal 98 - 11 0 mmol/L [facility], [facility].; [facility], [facility]. Cholesterol [Mass/Vol] 239 mg/dL Abnormal 125 - 200 mg/dL [facility], [facility].; [facility], [facility]. Cholesterol in HDL [Mass/Vol] 63 mg/dL Normal [facility], [facility].; [facility], [facility]. Cholesterol in LDL [Mass/Vol] 148 mg/dL Abnormal [facility].; [facility], [facility]. Cholesterol non HDL [Mass/Vol] 177 mg/dL Abnormal [facility], [facility].; [facility], [facility]. Cholesterol.total/Chol esterol in HDL [Mass ratio] 3.8 {ratio} Normal [facility], [facility].; [facility], [employer] CO2 [Moles/Vol] 26 mmol/L Normal 19 - 30 mmol/L [facility], [facility].; [facility], [facility]. Creatinine [Mass/Vol] 0.69 mg/dL Normal 0.50 - 0.99 mg/dL [facility], [facility].; [facility] GFR/1.73 sq M.predicted among blacks MDRD (S/P/Bld) [Vol rate/Area] 106 {ML/MIN/1.73M2} Normal [facility], [facility].; [facility], [facility]. GFR/1.73 sq M.predicted MDRD (S/P/Bld) [Vol rate/Area] 91 {ML/MIN/1.73M2} Normal [facility], [facility].; [employer] Globulin (S) [Mass/Vol] 3.1 g/dL Normal 1.9 - 3.7 g/dL [facility], [facility].; [employer] Glucose [Mass/Vol] 79 mg/dL Normal 65 - 99 mg/dL [facility], [facility].; [facility] Potassium [Moles/Vol] 4.3 mmol/L Normal 3.5 - 5.3 mmol/L [facility].; [facility] Protein [Mass/Vol] 7.1 g/dL Normal 6.1 - 8.1 g/dL [facility]; [facility], [facility] Sodium [Moles/Vol] 138 mmol/L Normal 135 - 146 mmol/L [facility]; [facility] Triglyceride [Mass/Vol] 141 mg/dL Normal [facility]; [facility] Urea nitrogen [Mass/Vol] 16 mg/dL Normal 7 - 25 mg/dL [facility]; [facility] Urea nitrogen/Creatinine [Mass ratio] 22.5 mg/mg Abnormal 6 - 22 [facility]; [facility] Laboratory - Cytologyon Microscopic observation Cyto stain Nom (Cvx) Normal [facility]; [facility] Vital Signs Date Time Vital Sign Value Performing Clinician Facility 05-02-2025 08:03-0400 Body height 157.48 cm Shu Chow PA Work Phone: [facility] 05-02-2025 08:03-0400 Body mass index (BMI) [Ratio] 33 kg/m2 Shu Chow PA Work Phone: [facility] 05-02-2025 08:03-0400 Body temperature 97.7 [degF] Shu Chow PA Work Phone: [facility] 05-02-2025 08:03-0400 Body weight 81.84 kg Shu Chow PA Work Phone: [facility] 05-02-2025 08:03-0400 Diastolic blood pressure 76 mm[Hg] Shu Chow PA Work Phone: [facility] 05-02-2025 08:03-0400 Heart rate 77 /min Shu Chow PA Work Phone: [facility] 05-02-2025 08:03-0400 Respiratory rate 18 /min Shu Chow PA Work Phone: [facility] 05-02-2025 08:03-0400 SaO2% (BldA) [Mass fraction] 97 % Shu Chow PA Work Phone: [facility] 05-02-2025 08:03-0400 Systolic blood pressure 118 mm[Hg] Shu Chow PA Work Phone: 0(932)780-511205 [place] [address] 04-18-2025 09:29-0400 Body height 157.48 cm Shu Chow PA Work Phone: 0(630)496-854805 [place] [address] 04-18-2025 09:29-0400 Body mass index (BMI) [Ratio] 33.8 kg/m2 Shu Chow PA Work Phone: 0(517)944-559491 [address] 04-18-2025 09:29-0400 Body temperature 98.5 [degF] Shu Chow PA Work Phone: 5(968)343-050505 [place] [address] 04-18-2025 09:29-0400 Body weight 83.91 kg Shu Chow PA Work Phone: 7(103)450-657805 [place] [address] 04-18-2025 09:29-0400 Diastolic blood pressure 83 mm[Hg] Shu Chow PA Work Phone: 3(816)489-895291 [address] 04-18-2025 09:29-0400 Heart rate 69 /min Shu Chow PA Work Phone: 3(060)479-538705 [place] [address] 04-18-2025 09:29-0400 Respiratory rate 16 /min Shu Chow PA Work Phone: 0(313)742-186905 [place] [address] 04-18-2025 09:29-0400 SaO2% (BldA) [Mass fraction] 96 % Shu Chow PA Work Phone: 1(759)853-012305 [place] [address] 04-18-2025 09:29-0400 Systolic blood pressure 129 mm[Hg] Shu Chow PA Work Phone: 0(507)470-856405 [place] [address] 04-04-2025 08:16-0400 Body height 157.48 cm Shu Chow PA Work Phone: 5(461)849-147505 [place] [address] 04-04-2025 08:16-0400 Body mass index (BMI) [Ratio] 34.2 kg/m2 Shu Chow PA Work Phone: [facility] 04-04-2025 08:16-0400 Body temperature 98.2 [degF] Shu Chow PA Work Phone: [facility] 04-04-2025 08:16-0400 Body weight 84.93 kg Shu Chow PA Work Phone: [facility] 04-04-2025 08:16-0400 Diastolic blood pressure 83 mm[Hg] Shu Chow PA Work Phone: [facility] 04-04-2025 08:16-0400 Heart rate 64 /min Shu Chow PA Work Phone: [facility] 04-04-2025 08:16-0400 Respiratory rate 16 /min Shu Chow PA Work Phone: [facility] 04-04-2025 08:16-0400 SaO2% (BldA) [Mass fraction] 97 % Shu Chow PA Work Phone: [facility] 04-04-2025 08:16-0400 Systolic blood pressure 133 mm[Hg] Shu Chow PA Work Phone: [facility] 03-24-2025 08:48-0400 Body height 152.4 cm Shu Haney Chow PA-C Work Phone: [facility]; [employer] [facility]. 03-24-2025 08:48-0400 Body mass index (BMI) [Ratio] 37.11 kg/m2 Shu Lyndon Chow PA-C Work Phone: [facility]; [facility] [facility]. 03-24-2025 08:48-0400 Body surface area Derived from formula 1.83 m2 Shu J Chow PA-C Work Phone: [employer]; [employer] [facility]. 03-24-2025 08:48-0400 Body weight 86.18 kg Shu Abbotter PA-C Work Phone: [employer] [facility]; [facility] [facility] 03-24-2025 08:48-0400 Diastolic blood pressure 82 mm[Hg] Shu Haney Chow PA-C Work Phone: [facility] [employer]; [employer] Comment on above: Patient Position: Sitting; Cuff Location : Left Arm; Cuff Size: Standard 03-24-2025 08:48-0400 Heart rate 72 /min Shu Haney Chow PA-C Work Phone: [employer]; [employer] Comment on above: Pattern: Regular 03-24-2025 08:48-0400 Systolic blood pressure 135 mm[Hg] Shu Haney Chow PA-C Work Phone: [employer]; [employer] Comment on above: Patient Position: Sitting; Cuff Location : Left Arm; Cuff Size: Standard 03-21-2025 08:05-0400 Body height 157.48 cm Shu Chow PA Work Phone: [facility] 03-21-2025 08:05-0400 Body mass index (BMI) [Ratio] 34.7 kg/m2 Shu Chow PA Work Phone: [facility] 03-21-2025 08:05-0400 Body temperature 98.2 [degF] Shu Chow PA Work Phone: [facility] 03-21-2025 08:05-0400 Body weight 86.18 kg Shu Chow PA Work Phone: [facility] 03-21-2025 08:05-0400 Diastolic blood pressure 88 mm[Hg] Shu Chow PA Work Phone: [facility] 03-21-2025 08:05-0400 Heart rate 60 /min Shu Chow PA Work Phone: [facility] 03-21-2025 08:05-0400 Respiratory rate 16 /min Shu Chow PA Work Phone: [facility] 03-21-2025 08:05-0400 SaO2% (BldA) [Mass fraction] 98 % Shu Chow PA Work Phone: [facility] 03-21-2025 08:05-0400 Systolic blood pressure 158 mm[Hg] Shu Chow PA Work Phone: [facility] 03-20-2025 13:42-0400 Body temperature 98.5 [degF] Shu Chow PA Work Phone: 4(533)425-724105 [place] [address] 03-20-2025 13:42-0400 Diastolic blood pressure 61 mm[Hg] Shu Chow PA Work Phone: 3(377)049-956505 [place] [address] 03-20-2025 13:42-0400 Heart rate 55 /min Shu Chow PA Work Phone: 2(558)408-677405 [place] [address] 03-20-2025 13:42-0400 Respiratory rate 16 /min Shu Chow PA Work Phone: [facility] 03-20-2025 13:42-0400 SaO2% (BldA) [Mass fraction] 99 % Shu Chow PA Work Phone: [facility] 03-20-2025 13:42-0400 Systolic blood pressure 129 mm[Hg] Shu Chow PA Work Phone: [facility] 03-20-2025 12:08-0400 Body height 157.48 cm Shu Chow PA Work Phone: [facility] 03-20-2025 11:38-0400 Body mass index (BMI) [Ratio] 34.2 kg/m2 Shu Chow PA Work Phone: [facility] 03-20-2025 11:38-0400 Body weight 85 kg Shu Chow PA Work Phone: [facility] 03-15-2025 10:10-0400 Body height 157.48 cm Shu Chow PA Work Phone: [facility] 03-15-2025 10:10-0400 Body mass index (BMI) [Ratio] 34.2 kg/m2 Shu Chow PA Work Phone: [facility] 03-15-2025 10:10-0400 Body temperature 97.6 [degF] Shu Chow PA Work Phone: [facility] 03-15-2025 10:10-0400 Body weight 84.9 kg Shu Chow PA Work Phone: 9(096)067-925905 [place] [address] 03-15-2025 10:10-0400 Diastolic blood pressure 84 mm[Hg] Shu Chow PA Work Phone: 6(746)266-592705 [place] [address] 03-15-2025 10:10-0400 Heart rate 61 /min Shu Chow PA Work Phone: 9(876)724-898405 [place] [address] 03-15-2025 10:10-0400 Respiratory rate 18 /min Shu Chow PA Work Phone: 3(276)339-275905 [place] [address] 03-15-2025 10:10-0400 SaO2% (BldA) [Mass fraction] 96 % Shu Chow PA Work Phone: 3(595)125-053805 [place] [address] 03-15-2025 10:10-0400 Systolic blood pressure 148 mm[Hg] Shu Chow PA Work Phone: 6(674)073-481005 [place] [address] 03-15-2025 08:10-0400 Body height 157.48 cm Shu Chow PA Work Phone: [facility] 03-15-2025 08:10-0400 Body mass index (BMI) [Ratio] 34.2 kg/m2 Shu Chow PA Work Phone: [facility] 03-15-2025 08:10-0400 Body temperature 98.2 [degF] Shu Chow PA Work Phone: [facility] 03-15-2025 08:10-0400 Body weight 84.9 kg Shu Chow PA Work Phone: 6(393)015-426205 [place] [address] 03-15-2025 08:10-0400 Diastolic blood pressure 80 mm[Hg] Shu Chow PA Work Phone: 4(437)420-592902 [place] [address] 03-15-2025 08:10-0400 Heart rate 57 /min Shu Chow PA Work Phone: 6(689)584-772502 [place] [address] 03-15-2025 08:10-0400 Respiratory rate 16 /min Shu Chow PA Work Phone: 1(734)662-417702 [place] [address] 03-15-2025 08:10-0400 SaO2% (BldA) [Mass fraction] 98 % Shu Chow PA Work Phone: 8(145)278-959502 [place] [address] 03-15-2025 08:10-0400 Systolic blood pressure 151 mm[Hg] Shu Chow PA Work Phone: 8(117)307-995602 [place] [address] 03-09-2025 09:22-0400 Body mass index (BMI) [Ratio] 33.8 kg/m2 Shu Chow PA Work Phone: 2(358)089-174002 [place] [address] 03-09-2025 09:22-0400 Body temperature 97.3 [degF] Shu Chow PA Work Phone: 7(449)536-160302 [place] [address] 03-09-2025 09:22-0400 Body weight 83.97 kg Shu Chow PA Work Phone: 6(286)399-572302 [place] [address] 03-09-2025 09:22-0400 Diastolic blood pressure 85 mm[Hg] Shu Chow PA Work Phone: 1(150)793-517202 [place] [address] 03-09-2025 09:22-0400 Heart rate 63 /min Shu Chow PA Work Phone: 1(248)238-558602 [place] [address] 03-09-2025 09:22-0400 Respiratory rate 16 /min Shu Chow PA Work Phone: 3(939)515-221602 [place] [address] 03-09-2025 09:22-0400 SaO2% (BldA) [Mass fraction] 100 % Shu Chow PA Work Phone: 2(313)294-952905 [place] [address] 03-09-2025 09:22-0400 Systolic blood pressure 157 mm[Hg] Shu JAUREGUI Work Phone: [facility] 02-21-2025 13:21-0400 Body height 154.9 cm Sachi Chaka MBBS Work Phone: [facility] 02-21-2025 13:21-0400 Body mass index (BMI) [Ratio] 35.64 kg/m2 Sachi Chaka MBBS Work Phone: [facility] 02-21-2025 13:21-040 Body temperature 98.01 [degF] Sachi Chaka MBBS Work Phone: [facility] 02-21-2025 13:21040 Body weight 85.55 kg Sachi Chaka MBBS Work Phone: [facility] 02-21-2025 13:21-0400 Diastolic blood pressure 74 mm[Hg] Sachi Chaka MBBS Work Phone: [facility] 02-21-2025 13:21-0400 Heart rate 75 /min Sachi Chaka MBBS Work Phone: [facility] 02-21-2025 13:21-0400 Respiratory rate 18 /min Sachi Chaka MBBS Work Phone: [facility] 02-21-2025 13:21-0400 SaO2% (BldA) [Mass fraction] 97 % Sachi Chaka MBBS Work Phone: [facility] Comment on above: room air 02-21-2025 13:21-0400 Systolic blood pressure 166 mm[Hg] Sachi Chaka MBBS Work Phone: [facility] 02-01-2025 14:11040 Body height 152.4 cm Amy HERNANDEZ [facility], [facility]. 02-01-2025 14:11-0400 Body mass index (BMI) [Ratio] 36.72 kg/m2 Amy Soriano [facility].; [facility]. 02-01-2025 14:110400 Body surface area Derived from formula 1.82 m2 Amy Soriano [facility].; [facility] 02-01-2025 14:110400 Body weight 85.28 kg Amy Soriano [facility].; [facility]. 02-01-2025 14:110400 Diastolic blood pressure 83 mm[Hg] Amy Soriano [facility].; [facility]. Comment on above: Patient Position: Sitting; Cuff Location : Left Arm; Cuff Size: Standard 02-01-2025 14:110400 Heart rate 75 /min Amy Soriano [facility].; [facility]. Comment on above: Pattern: Regular 02-01-2025 14:110400 Systolic blood pressure 121 mm[Hg] Amy Soriano [facility].; [facility]. Comment on above: Patient Position: Sitting; Cuff Location : Left Arm; Cuff Size: Standard 01-28-2025 08:07-0400 Body temperature 97.81 [degF] Sachi Rosas MBBS Work Phone: [facility] 01-28-2025 08:07-0400 Diastolic blood pressure 74 mm[Hg] Sachi Rosas MBBS Work Phone: [facility] 01-28-2025 08:07-0400 Heart rate 68 /min Sachi Chaka MBBS Work Phone: [facility] 01-28-2025 08:07-0400 Respiratory rate 16 /min Sachimele Rosas MBBS Work Phone: [facility] 01-28-2025 08:07-0400 SaO2% (BldA) [Mass fraction] 95 % Sachimele Rosas MBBS Work Phone: [facility] 01-28-2025 08:07-0400 Systolic blood pressure 170 mm[Hg] Sachi Chaka MBBS Work Phone: [facility] 01-23-2025 05:58-0400 Body height 154.9 cm Sachi Chaka MBBS Work Phone: [facility] 01-23-2025 05:58-0400 Body mass index (BMI) [Ratio] 35.52 kg/m2 Sachi Chaka MBBS Work Phone: [facility] 01-23-2025 05:58-0400 Body weight 85.28 kg Sachi Chaka MBBS Work Phone: [facility] 01-10-2025 15:20-0400 Diastolic blood pressure 72 mm[Hg] Mackenzie Takhtay [employer] Work Phone: [facility] 01-10-2025 15:20-0400 Systolic blood pressure 128 mm[Hg] Mackenzie Takhtay [employer]ERK Work Phone: [facility] 01-10-2025 14:34-0400 Body height 154.9 cm Mackenzie Takhtay [employer] CLERK Work Phone: [facility] 01-10-2025 14:34-0400 Body mass index (BMI) [Ratio] 36.15 kg/m2 Mackenzie Takhtay [employer]ERK Work Phone: [facility] 01-10-2025 14:34-0400 Body temperature 97.9 [degF] Mackenzie Takhtay [employer] CLERK Work Phone: [facility] 01-10-2025 14:34-0400 Body weight 86.77 kg Mackenzie Takhtay [employer]ERK Work Phone: [facility] 01-10-2025 14:34-0400 Heart rate 70 /min Mackenzie Takhtay [employer] CLERK Work Phone: [facility] 01-10-2025 14:34-0400 Respiratory rate 16 /min Mackenzie Reyes [employer]ERK Work Phone: [facility] 01-10-2025 14:34-0400 SaO2% (BldA) [Mass fraction] 98 % Mackenzie Reyes [employer]ERK Work Phone: [facility] 12-31-2024 08:03-0500 Body height 152.4 cm Sachi Chaka MBBS Work Phone: [facility] 12-31-2024 08:03-0500 Diastolic blood pressure 79 mm[Hg] Sachi Chaka MBBS Work Phone: [facility] 12-31-2024 08:03-0500 Heart rate 70 /min Sachi Chaka MBBS Work Phone: [facility] 12-31-2024 08:03-0500 Systolic blood pressure 176 mm[Hg] Sachi Chaka MBBS Work Phone: [facility] 12-06-2024 13:06-0500 Body height 154 cm Sachi Chaka MBBS Work Phone: [facility] 12-06-2024 13:06-0500 Body mass index (BMI) [Ratio] 36.76 kg/m2 Sachi Hcaka MBBS Work Phone: [facility] 12-06-2024 13:06-0500 Body temperature 98.1 [degF] Sachi Chaka MBBS Work Phone: [facility] 12-06-2024 13:06-0500 Body weight 87.18 kg Sachi Chaka MBBS Work Phone: [facility] Comment on above: w/o shoes 12-06-2024 13:06-0500 Diastolic blood pressure 77 mm[Hg] Sachi Chaka MBBS Work Phone: [facility] 12-06-2024 13:06-0500 Heart rate 74 /min Sachi Chaka MBBS Work Phone: [facility] 12-06-2024 13:06-0500 Respiratory rate 18 /min Sachi Chaka MBBS Work Phone: [facility] 12-06-2024 13:06-0500 SaO2% (BldA) [Mass fraction] 95 % Sachi Chaka MBBS Work Phone: [facility] 12-06-2024 13:06-0500 Systolic blood pressure 177 mm[Hg] Sachi Chaka MBBS Work Phone: [facility] 06-27-2024 13:56-0400 Body height 152.4 cm Roverto Lynch [facility], [facility].; [employer], [facility]. 06-27-2024 13:56-0400 Body mass index (BMI) [Ratio] 37.5 kg/m2 Roverto Rausch Keila [facility], [facility].; [facility], [facility]. 06-27-2024 13:56-0400 Body surface area Derived from formula 1.83 m2 Roverto Lynch [facility], [facility].; [facility], [facility]. 06-27-2024 13:56-0400 Body weight 87.09 kg Roverto Lynch [facility], [facility].; [employer] 06-27-2024 13:56-0400 Diastolic blood pressure 78 mm[Hg] Roverto Lynch [facility], [facility].; [employer], [employer] Comment on above: Patient Position: Sitting; Cuff Location : Left Arm; Cuff Size: Standard 06-27-2024 13:56-0400 Heart rate 72 /min Roverto Lynch [facility] [employer]. Comment on above: Pattern: Regular 06-27-2024 13:56-0400 Systolic blood pressure 130 mm[Hg] Roverto Lynch LPN [employer] Comment on above: Patient Position: Sitting; Cuff Location : Left Arm; Cuff Size: Standard 02-05-2024 10:44-0400 Body height 152.4 cm Shu J Chow PA-C Work Phone: [employer] 02-05-2024 10:44-0400 Body mass index (BMI) [Ratio] 41.21 kg/m2 Shu J Chow PA-C Work Phone: [employer].; [employer] [facility]. 02-05-2024 10:44-0400 Body surface area Derived from formula 1.91 m2 Shu J Chow PA-C Work Phone: [employer].; [employer] [facility]. 02-05-2024 10:44-0400 Body weight 95.71 kg Shu J Chow PA-C Work Phone: [employer].; [employer]. 02-05-2024 10:44-0400 Diastolic blood pressure 82 mm[Hg] Shu J Chow PA-C Work Phone: [employer].; [employer]. Comment on above: Patient Position: Sitting; Cuff Location : Left Arm; Cuff Size: Standard 02-05-2024 10:44-0400 Heart rate 71 /min Shu J Chow PA-C Work Phone: [employer].; [employer]. Comment on above: Pattern: Regular 02-05-2024 10:44-0400 Systolic blood pressure 124 mm[Hg] Shu J Chow PA-C Work Phone: [employer].; [employer]. Comment on above: Patient Position: Sitting; Cuff Location : Left Arm; Cuff Size: Standard 11-23-2023 10:25-0500 Body height 152.4 cm Roverto M Keila [facility], [facility].; [facility], [facility]. 11-23-2023 10:25-0500 Body mass index (BMI) [Ratio] 43.55 kg/m2 Roverto Lynch [facility], Inc.; [employer] [facility], Inc[facility] 11-23-2023 10:25-0500 Body surface area Derived from formula 1.96 m2 Roverto Lynch [facility], [facility].; [employer] [facility]. 11-23-2023 10:25-0500 Body weight 101.15 kg Roverto Lynch [facility], [facility].; [employer], [facility]. 11-23-2023 10:25-0500 Diastolic blood pressure 78 mm[Hg] Roverto Lynch [facility], [facility].; [employer] Comment on above: Patient Position: Sitting; Cuff Location : Right Arm; Cuff Size: Standard 11-23-2023 10:25-0500 Heart rate 67 /min Roverto Lynch [facility], [facility].; [employer], [employer]. Comment on above: Pattern: Regular 11-23-2023 10:25-0500 Systolic blood pressure 139 mm[Hg] Roverto Lynch [facility], [facility].; [employer], [employer] Comment on above: Patient Position: Sitting; Cuff Location : Right Arm; Cuff Size: Standard 07-27-2023 09:30-0400 Body height 152.4 cm Roverto Lynch [facility], [facility].; [employer] 07-27-2023 09:30-0400 Body mass index (BMI) [Ratio] 45.89 kg/m2 Roverto Lynch [facility], [facility].; [employer] [facility], [facility]. 07-27-2023 09:30-0400 Body surface area Derived from formula 2 m2 Roverto Lynch [facility], [facility].; [employer] [facility]. 07-27-2023 09:30-0400 Body weight 106.6 kg Roverto Lynch [facility] MePlease [facility] HospitalNucle[facility].; [employer]. 07-27-2023 09:30-0400 Diastolic blood pressure 75 mm[Hg] Roverto Lynch LPN [facility] [employer].; [employer] [facility]. Comment on above: Patient Position: Sitting; Cuff Location : Left Arm; Cuff Size: Standard 07-27-2023 09:30-0400 Heart rate 81 /min Roverto Lynch LPN [facility], [employer].; [employer]. Comment on above: Pattern: Regular 07-27-2023 09:30-0400 Systolic blood pressure 136 mm[Hg] Roverto Lynch [facility]PN [facility].; [employer]. Comment on above: Patient Position: Sitting; Cuff Location : Left Arm; Cuff Size: Standard 01-29-2023 09:32-0400 Body weight 105.24 kg Shu JAUREGUI-C Work Phone: [employer] [facility].; [employer]. 01-29-2023 09:32-0400 Diastolic blood pressure 84 mm[Hg] Shu JAUREGUI-C Work Phone: [employer] [facility].; [employer]. Comment on above: Patient Position: Sitting; Cuff Location : Left Arm; Cuff Size: Standard 01-29-2023 09:32-0400 Heart rate 70 /min Shu Chow PA-C Work Phone: [employer] [facility].; [employer]. Comment on above: Pattern: Regular 01-29-2023 09:32-0400 Systolic blood pressure 153 mm[Hg] Shu JAUREGUI-C Work Phone: [employer] [facility].; [employer]. Comment on above: Patient Position: Sitting; Cuff Location : Left Arm; Cuff Size: Standard 08-01-2022 10:20-0400 Body height 152.4 cm Roverto Lynch LPN [facility] [facility], [employer].; [employer]. 08-01-2022 10:20-0400 Body mass index (BMI) [Ratio] 43.94 kg/m2 Roverto Lynch LPN [facility], [facility].; [facility], [facility]. 08-01-2022 10:20-0400 Body surface area Derived from formula 1.96 m2 Roverto Aparicioach [facility], [facility].; [employer] [facility], [facility] 08-01-2022 10:20-0400 Body weight 102.06 kg Roverto Lynch [facility], [facility].; [employer] [facility]. 08-01-2022 10:20-0400 Diastolic blood pressure 82 mm[Hg] Roverto Lynch [facility], [facility].; [employer]. Comment on above: Patient Position: Sitting; Cuff Location : Left Arm; Cuff Size: Standard 08-01-2022 10:20-0400 Heart rate 71 /min Roverto Lynch [facility], [facility].; [employer]. Comment on above: Pattern: Regular 08-01-2022 10:20-0400 Systolic blood pressure 137 mm[Hg] Roverto Lynch [facility], [facility].; [employer]. Comment on above: Patient Position: Sitting; Cuff Location : Left Arm; Cuff Size: Standard 01-23-2022 [id number]:110400 Body height 152.4 cm Roverto Lynch AGRICULTURAL SCIENCES PROFESSOR [facility], [facility].; [employer]. 01-23-2022 13:11-0400 Body mass index (BMI) [Ratio] 42.97 kg/m2 Roverto Lynch [facility], [facility].; [employer] 01-23-2022 13:110400 Body surface area Derived from formula 1.94 m2 Roverto Lynch [facility], [facility].; [employer] [facility]. 01-23-2022 13:110400 Body weight 99.79 kg Roverto Lynch [facility], [facility].; [employer]. 01-23-2022 13:11-0400 Diastolic blood pressure 72 mm[Hg] Roverto [facility] Center[facility] Bi[facility].; [employer]. Comment on above: Patient Position: Sitting; Cuff Location : Left Arm; Cuff Size: Standard 01-23-2022 13:11-0400 Heart rate 72 /min Roverto Allenlabach [facility], [facility].; [employer] [facility]. Comment on above: Pattern: Regular 01-23-2022 13:11-0400 Systolic blood pressure 121 mm[Hg] Roverto Aparicioach AGRICULTURAL SCIENCES PROFESSOR [facility], Inc.; [employer]. Comment on above: Patient Position: Sitting; Cuff Location : Left Arm; Cuff Size: Standard 01-23-2021 10:55-0400 Body height 152.4 cm [facility] [employer].; [employer] [facility]. 01-23-2021 10:55-0400 Body mass index (BMI) [Ratio] 46.09 kg/m2 Roverto Rausch Keila [facility], Inc.; [employer] [facility]. 01-23-2021 10:55-0400 Body surface area Derived from formula 2 m2 Roverto M Keila [facility], [facility].; [employer]. 01-23-2021 10:55-0400 Body weight 107.05 kg Roverto Lynch [facility], [facility].; [employer]. 01-23-2021 10:55-0400 Diastolic blood pressure 84 mm[Hg] Roverto Allenlabach [facility], [employer].; [employer]. Comment on above: Patient Position: Sitting; Cuff Location : Right Arm; Cuff Size: Standard 01-23-2021 10:55-0400 Heart rate 71 /min Roverto Allenlabach AGRICULTURAL SCIENCES PROFESSOR [facility], [employer].; [employer]. Comment on above: Pattern: Regular 01-23-2021 10:55-0400 Systolic blood pressure 151 mm[Hg] Roverto Aparicioach AGRICULTURAL SCIENCES PROFESSOR [employer] [facility].; [employer]. Comment on above: Patient Position: Sitting; Cuff Location : Right Arm; Cuff Size: Standard 01-09-2021 09:51-0500 Body height 152.4 cm Shu Chow PA-C Work Phone: [facility] [employer]; [employer] [facility]. 01-09-2021 09:51-0500 Body mass index (BMI) [Ratio] 46.87 kg/m2 Shu Abbotter PA-C Work Phone: [employer] [facility] [employer].; [employer] [facility]. 01-09-2021 09:51-0500 Body surface area Derived from formula 2.02 m2 Shu Abbotter PA-C Work Phone: [employer] [facility] [employer]; [employer] [facility]. 01-09-2021 09:51-0500 Body weight 108.86 kg Shu Abbotter PA-C Work Phone: [employer]; [employer] [facility]. 01-09-2021 09:51-0500 Diastolic blood pressure 79 mm[Hg] Shu Abbotter PA-C Work Phone: [employer]; [employer]. Comment on above: Patient Position: Sitting; Cuff Location : Left Arm; Cuff Size: Standard 01-09-2021 09:51-0500 Heart rate 66 /min Shu Abbotter PA-C Work Phone: [employer]; [employer]. Comment on above: Pattern: Regular 01-09-2021 09:51-0500 Systolic blood pressure 127 mm[Hg] Shu Abbotter PA-C Work Phone: [employer]; [employer]. Comment on above: Patient Position: Sitting; Cuff Location : Left Arm; Cuff Size: Standard 06-18-2020 08:32-0400 Body height 152.4 cm Shu Haney Chow PA-C Work Phone: [employer]; [employer]. 06-18-2020 08:32-0400 Body mass index (BMI) [Ratio] 44.92 kg/m2 Shu Haney Chow PA-C Work Phone: [employer]; [employer]. 06-18-2020 08:32-0400 Body surface area Derived from formula 1.98 m2 Suh Haney Chow PA-C Work Phone: [employer]; [employer]. 06-18-2020 08:32-0400 Body weight 104.33 kg Shu Haney Chow PA-C Work Phone: [employer].; [employer]. 06-18-2020 08:32-0400 Diastolic blood pressure 80 mm[Hg] Shu Haney Chow PA-C Work Phone: [employer]; [employer]. Comment on above: Patient Position: Sitting; Cuff Location : Left Arm; Cuff Size: Standard 06-18-2020 08:32-0400 Heart rate 64 /min Shu Haney Chow PA-C Work Phone: [employer]; [employer]. Comment on above: Pattern: Regular 06-18-2020 08:32-0400 Inhaled oxygen concentration 20 % Shu Lyndon Chow PA-C Work Phone: [employer]; [employer]. Comment on above: Room air 06-18-2020 08:32-0400 Inhaled oxygen concentration 21 % Shu Lyndon Chow PA-C Work Phone: [employer]; [employer]. Comment on above: Room air 06-18-2020 08:32-0400 SaO2% (BldA) [Mass fraction] 99 % Shu Haney Chow PA-C Work Phone: [employer]; [employer]. 06-18-2020 08:32-0400 Systolic blood pressure 128 mm[Hg] Shu Lyndon Chow PA-C Work Phone: [employer]; [employer]. Comment on above: Patient Position: Sitting; Cuff Location : Left Arm; Cuff Size: Standard 01-02-2020 11:42-0500 Body height 152.4 cm Irish Cruzgretchen PINEDA [facility], [facility].; [employer] [facility], [facility]. 01-02-2020 11:42-0500 Body mass index (BMI) [Ratio] 45.11 kg/m2 Irish Anthonygretchen [facility], [facility].; [employer], [employer] 01-02-2020 11:42-0500 Body surface area Derived from formula 1.98 m2 Irish Solnao LPN [facility], [facility].; [employer] [facility], [facility] 01-02-2020 11:42-0500 Body temperature 98.1 [degF] Irish Wegretchen [facility], [facility].; [employer], [employer] Comment on above: Method: Tympanic 01-02-2020 11:42-0500 Body weight 104.78 kg Irishkatherine Solano LPN [facility], [facility].; [employer], [employer] 01-02-2020 11:42-0500 Diastolic blood pressure 76 mm[Hg] Irish Solano [facility]Please [facility], [facility].; [employer], [employer]. Comment on above: Patient Position: Sitting; Cuff Location : Left Arm; Cuff Size: Standard 01-02-2020 11:42-0500 Heart rate 72 /min Irishkatherine Solano LPN [facility], [facility].; [employer] Comment on above: Pattern: Regular 01-02-2020 11:42-0500 Inhaled oxygen concentration 20 % Irish Solano LPN [facility], [facility].; [employer], [employer] Comment on above: Room air 01-02-2020 11:42-0500 Inhaled oxygen concentration 21 % Irish Solano LPN [facility], [facility].; [employer], [employer]. Comment on above: Room air 01-02-2020 11:42-0500 SaO2% (BldA) [Mass fraction] 95 % Irish Solano LPN [facility], [facility].; [employer], [employer] 01-02-2020 11:42-0500 Systolic blood pressure 130 mm[Hg] Irish Solano LPN [facility], [facility].; [employer]. Comment on above: Patient Position: Sitting; Cuff Location : Left Arm; Cuff Size: Standard 06-15-2019 10:47-0400 Body height 152.4 cm Irish Wegretchen PINEDA [facility], [facility].; [employer], [employer] 06-15-2019 10:47-0400 Body mass index (BMI) [Ratio] 43.94 kg/m2 Irish Wegretchen PINEDA [employer].; [employer], [employer] 06-15-2019 10:47-0400 Body surface area Derived from formula 1.96 m2 Irish Russ PINEDA [employer], [employer].; [employer], [employer] 06-15-2019 10:47-0400 Body weight 102.06 kg Irish Russ PINEDA [employer], [employer].; [employer], [employer] 06-15-2019 10:47-0400 Diastolic blood pressure 84 mm[Hg] Irish Russ PINEDA [employer], [employer] Comment on above: Patient Position: Sitting; Cuff Location : Left Arm; Cuff Size: Standard 06-15-2019 10:47-0400 Heart rate 71 /min Irish Russ PINEDA [employer], [employer], [employer] Comment on above: Pattern: Regular 06-15-2019 10:47-0400 Systolic blood pressure 130 mm[Hg] Irish Wegretchen PINEDA [employer], [employer].; [employer], [employer] Comment on above: Patient Position: Sitting; Cuff Location : Left Arm; Cuff Size: Standard 11-04-2018 10:45-0500 Body height 152.4 cm Irish Wegretchen PINEDA [employer].; [employer] 11-04-2018 10:45-0500 Body mass index (BMI) [Ratio] 43.55 kg/m2 Irish Russ PINEDA [employer].; [employer], [employer] 11-04-2018 10:45-0500 Body surface area Derived from formula 1.96 m2 Irish Solano LPN [employer], [employer]. 11-04-2018 10:45-0500 Body weight 101.15 kg Irish Sanchezshiva PINEDA [employer].; [employer]. 11-04-2018 10:45-0500 Diastolic blood pressure 80 mm[Hg] Irish Cruzgretchen PINEDA [employer].; [employer]. Comment on above: Patient Position: Sitting; Cuff Location : Left Arm; Cuff Size: Standard 11-04-2018 10:45-0500 Heart rate 77 /min Irish Cruzgretchen PINEDA [employer]. Comment on above: Pattern: Regular 11-04-2018 10:45-0500 Inhaled oxygen concentration 20 % Irish Cruzgretchen PINEDA [employer]. Comment on above: Room air 11-04-2018 10:45-0500 Inhaled oxygen concentration 21 % Irish Cruzgretchen PINEDA [employer]. Comment on above: Room air 11-04-2018 10:45-0500 SaO2% (BldA) [Mass fraction] 97 % Irish Hopkinsstefanie [facility] Healthcare[facility]ers[facility] The[facility], Inc.; [employer]. 11-04-2018 10:45-0500 Systolic blood pressure 127 mm[Hg] Irish Cruzgretchen PINEDA [employer], [employer]. Comment on above: Patient Position: Sitting; Cuff Location : Left Arm; Cuff Size: Standard 10-04-2018 08:24-0500 Body height 152.4 cm [employer]uVisible Technologies PA-C Work Phone: [employer].; [employer]. 10-04-2018 08:24-0500 Body mass index (BMI) [Ratio] 43.36 kg/m2 [employer] PA-C Work Phone: [employer].; [employer]. 10-04-2018 08:24-0500 Body surface area Derived from formula 1.95 m2 [employer] PA-C Work Phone: [employer]; [employer] 10-04-2018 08:24-0500 Body temperature 98 [degF] Shu Abbotter PA-C Work Phone: [employer]; [employer]. Comment on above: Method: Tympanic 10-04-2018 08:24-0500 Body weight 100.7 kg Shu Abbotter PA-C Work Phone: [employer]; [employer]. 10-04-2018 08:24-0500 Diastolic blood pressure 84 mm[Hg] Shu Chow PA-C Work Phone: [employer]; [employer]. Comment on above: Patient Position: Sitting; Cuff Location : Left Arm; Cuff Size: Standard 10-04-2018 08:24-0500 Heart rate 75 /min Shu Abbotter PA-C Work Phone: [employer]; [employer]. Comment on above: Pattern: Regular 10-04-2018 08:24-0500 Systolic blood pressure 150 mm[Hg] Shu Chow PA-C Work Phone: [employer]; [employer]. Comment on above: Patient Position: Sitting; Cuff Location : Left Arm; Cuff Size: Standard 04-22-2018 09:53-0400 Body height 152.4 cm Shu Haney Chow PA-C Work Phone: [employer]; [employer]. 04-22-2018 09:53-0400 Body mass index (BMI) [Ratio] 42.38 kg/m2 Shu Haney Chow PA-C Work Phone: [employer]; [employer]. 04-22-2018 09:53-0400 Body surface area Derived from formula 1.93 m2 Shu J Chow PA-C Work Phone: [employer]; [employer] 04-22-2018 09:53-0400 Body weight 98.43 kg Shu Abbotter PA-C Work Phone: [employer].; [employer]. 04-22-2018 09:53-0400 Diastolic blood pressure 89 mm[Hg] Shu Abbotter PA-C Work Phone: [employer].; [employer]. Comment on above: Patient Position: Sitting; Cuff Location : Left Arm; Cuff Size: Standard 04-22-2018 09:53-0400 Heart rate 73 /min Shu Abbotter PA-C Work Phone: [employer]; [employer]. Comment on above: Pattern: Regular 04-22-2018 09:53-0400 Inhaled oxygen concentration 20 % Shu Haney Chow PA-C Work Phone: [employer]; [employer]. Comment on above: Room air 04-22-2018 09:53-0400 Inhaled oxygen concentration 21 % Shu Haney Chow PA-C Work Phone: [employer].; [employer]. Comment on above: Room air 04-22-2018 09:53-0400 SaO2% (BldA) [Mass fraction] 97 % Shu Abbotter PA-C Work Phone: [employer].; [employer] 04-22-2018 09:53-0400 Systolic blood pressure 142 mm[Hg] Shu Haney Chow PA-C Work Phone: [employer].; [employer]. Comment on above: Patient Position: Sitting; Cuff Location : Left Arm; Cuff Size: Standard 12-10-2017 10:05-0500 Body height 152.4 cm Roverto Lynch LPN [employer] 12-10-2017 10:05-0500 Body mass index (BMI) [Ratio] 42.77 kg/m2 Roverto Lynch [facility] Medical CenterZulahoo.; [employer] 12-10-2017 10:05-0500 Body surface area Derived from formula 1.94 m2 Roverto Rausch Keila PINEDA [facility], [facility].; [employer] 12-10-2017 10:05-0500 Body weight 99.34 kg Roverto Rausch Keila PINEDA [facility], [employer].; [employer] 12-10-2017 10:05-0500 Diastolic blood pressure 86 mm[Hg] Roverto Rausch Keila [facility] [employer], [employer] Comment on above: Patient Position: Sitting; Cuff Location : Right Arm; Cuff Size: Standard 12-10-2017 10:05-0500 Heart rate 83 /min Roverto Rausch Keila [facility], [employer].; [employer], [employer] Comment on above: Pattern: Regular 12-10-2017 10:05-0500 Systolic blood pressure 159 mm[Hg] Roverto Rausch Keila PINEDA [employer], [employer] Comment on above: Patient Position: Sitting; Cuff Location : Right Arm; Cuff Size: Standard 11-09-2017 10:31-0500 Body height 152.4 cm Irish Solano LPN [employer], [employer] 11-09-2017 10:31-0500 Body mass index (BMI) [Ratio] 42.57 kg/m2 Irish Solano LPN [employer], [employer], [employer] 11-09-2017 10:31-0500 Body surface area Derived from formula 1.94 m2 Irish Solano LPN [employer], [employer] 11-09-2017 10:31-0500 Body weight 98.88 kg Irish Russ [facility], Inc.; [employer] 11-09-2017 10:31-0500 Diastolic blood pressure 93 mm[Hg] Irish Solano LPN [employer]. Comment on above: Patient Position: Sitting; Cuff Location : Left Arm; Cuff Size: Standard 11-09-2017 10:31-0500 Heart rate 72 /min Irish Cruzgretchen PINEDA [employer], [employer]. Comment on above: Pattern: Regular 11-09-2017 10:31-0500 Systolic blood pressure 156 mm[Hg] Irish Hopkinsstefanie PINEDA [facility], [facility].; [employer], [employer] Comment on above: Patient Position: Sitting; Cuff Location : Left Arm; Cuff Size: Standard 04-29-2017 11:02-0400 Body height 152.4 cm Irish Cruzgretchen PINEDA [employer], [employer], [employer]. 04-29-2017 11:02-0400 Body mass index (BMI) [Ratio] 41.99 kg/m2 Irish Cruzgretchen [facility] [employer], Inc.; [employer] 04-29-2017 11:02-0400 Body surface area Derived from formula 1.93 m2 Irish Anthonygretchen [facility], Inc.; [employer], [employer] 04-29-2017 11:02-0400 Body weight 97.52 kg Irish Cruzgretchen [facility], Inc.; [employer], [employer]. 04-29-2017 11:02-0400 Diastolic blood pressure 84 mm[Hg] Irish Cruzluis angelshiva AGRICULTURAL SCIENCES PROFESSOR [employer], [employer] Comment on above: Patient Position: Sitting; Cuff Location : Left Arm; Cuff Size: Standard 04-29-2017 11:02-0400 Heart rate 64 /min Irish Cruzgretchen PINEDA [employer]. Comment on above: Pattern: Regular 04-29-2017 11:02-0400 Systolic blood pressure 162 mm[Hg] Irish Solano AGRICULTURAL SCIENCES PROFESSOR [employer]. Comment on above: Patient Position: Sitting; Cuff Location : Left Arm; Cuff Size: Standard 10-09-2016 12:49-0500 Body height 154.94 cm Hiral Dillon RN [employer], [employer].; [employer], [employer]. 10-09-2016 12:49-0500 Body mass index (BMI) [Ratio] 39.87 kg/m2 Hiral Dillon RN [employer].; [employer]. 10-09-2016 12:49-0500 Body surface area Derived from formula 1.93 m2 Hiral Dillon RN [employer].; [employer]. 10-09-2016 12:49-0500 Body temperature 97.6 [degF] Hiral Dillon RN [employer].; [employer]. Comment on above: Method: Tympanic 10-09-2016 12:49-0500 Body weight 95.71 kg Hiral Dillon RN [employer].; [employer]. 10-09-2016 12:49-0500 Diastolic blood pressure 89 mm[Hg] Hiral Dillon RN [employer].; [employer]. Comment on above: Patient Position: Sitting; Cuff Location : Right Arm; Cuff Size: Standard 10-09-2016 12:49-0500 Heart rate 78 /min Hiral Dillon RN [employer].; [employer]. Comment on above: Pattern: Regular 10-09-2016 12:49-0500 Inhaled oxygen concentration 20 % Shu Chow PA-C Work Phone: [employer]; [employer]. Comment on above: Room air 10-09-2016 12:49-0500 Inhaled oxygen concentration 21 % Hiral Dillon RN [employer].; [employer]. Comment on above: Room air 10-09-2016 12:49-0500 SaO2% (BldA) [Mass fraction] 94 % Hiral Dillon RN [employer].; [employer]. 10-09-2016 12:49-0500 Systolic blood pressure 157 mm[Hg] Hiral Dillon RN [employer].; [employer]. Comment on above: Patient Position: Sitting; Cuff Location : Right Arm; Cuff Size: Standard 04-24-2016 09:01-0400 Body height 154.94 cm Shu Abbotter PA-C Work Phone: [employer].; [employer]. 04-24-2016 09:01-0400 Body mass index (BMI) [Ratio] 40.43 kg/m2 Shu Abbotter PA-C Work Phone: [employer].; [employer]. 04-24-2016 09:01-0400 Body surface area Derived from formula 1.94 m2 Shu Abbotter PA-C Work Phone: [employer]. 04-24-2016 09:01-0400 Body weight 97.07 kg Shu Abbotter PA-C Work Phone: [employer]. 04-24-2016 09:01-0400 Diastolic blood pressure 84 mm[Hg] Shu Abbotter PA-C Work Phone: [employer]. Comment on above: Patient Position: Sitting; Cuff Location : Left Arm; Cuff Size: Standard 04-24-2016 09:01-0400 Heart rate 67 /min Shu Abbotter PA-C Work Phone: [employer]; [employer]. Comment on above: Pattern: Regular 04-24-2016 09:01-0400 Systolic blood pressure 142 mm[Hg] Shu Abbotter PA-C Work Phone: [employer]. Comment on above: Patient Position: Sitting; Cuff Location : Left Arm; Cuff Size: Standard 10-03-2015 10:17-0500 Body height 154.94 cm Shu Abbotter PA-C Work Phone: [employer]. 10-03-2015 10:17-0500 Body mass index (BMI) [Ratio] 41.1 kg/m2 Shu Haney Chow PA-C Work Phone: [employer]. 10-03-2015 10:17-0500 Body surface area Derived from formula 1.96 m2 Shu Haney Chow PA-C Work Phone: [employer].; [employer]. 10-03-2015 10:17-0500 Body weight 98.66 kg Shu Abbotter PA-C Work Phone: [employer]. 10-03-2015 10:17-0500 Diastolic blood pressure 84 mm[Hg] Shu Abbotter PA-C Work Phone: [employer]. Comment on above: Patient Position: Sitting; Cuff Location : Left Arm; Cuff Size: Standard 10-03-2015 10:17-0500 Heart rate 61 /min Shu Abbotter PA-C Work Phone: [employer]; [employer]. Comment on above: Pattern: Regular 10-03-2015 10:17-0500 Systolic blood pressure 136 mm[Hg] Shu Abbotter PA-C Work Phone: [employer]. Comment on above: Patient Position: Sitting; Cuff Location : Left Arm; Cuff Size: Standard 04-04-2015 09:40-0400 Body height 156.46 cm Irish Solano LPN [employer] [facility] [facility].; [employer]. 04-04-2015 09:40-0400 Body mass index (BMI) [Ratio] 39.89 kg/m2 Irish Solano LPN [employer], [employer]. 04-04-2015 09:40-0400 Body surface area Derived from formula 1.96 m2 Irish Solano LPN [employer], [employer]. 04-04-2015 09:40-0400 Body weight 97.67 kg Irish Solano LPN [employer]. 04-04-2015 09:40-0400 Diastolic blood pressure 90 mm[Hg] Irish Russ PINEDA [employer] [facility], [employer]. Comment on above: Patient Position: Sitting; Cuff Location : Left Arm; Cuff Size: Standard 04-04-2015 09:40-0400 Heart rate 63 /min Irish Russ PINEDA [facility] [facility], Inc.; [employer]. Comment on above: Pattern: Regular 04-04-2015 09:40-0400 Systolic blood pressure 178 mm[Hg] Irish Russ PINEDA [employer]. Comment on above: Patient Position: Sitting; Cuff Location : Left Arm; Cuff Size: Standard 02-12-2015 18:30-0400 Body temperature 98 [degF] Sasha Shepherd LPN [employer], [employer]. 02-12-2015 18:30-0400 Body weight 95.71 kg Sasha Shepherd LPN [facility] [facility], [employer]. 02-12-2015 18:30-0400 Diastolic blood pressure 84 mm[Hg] Sasha Shepherd LPN [employer], [employer]. Comment on above: Patient Position: Sitting; Cuff Location : Left Arm; Cuff Size: Standard 02-12-2015 18:30-0400 Heart rate 81 /min Sasha Shepherd LPN [facility] [facility], [employer]. Comment on above: Pattern: Regular 02-12-2015 18:30-0400 Inhaled oxygen concentration 20 % Sasha Shepherd LPN [facility] [facility], [employer]. Comment on above: Room air 02-12-2015 18:30-0400 Inhaled oxygen concentration 21 % Sasha Shepherd LPN [facility] [facility], [employer]. Comment on above: Room air 02-12-2015 18:30-0400 SaO2% (BldA) [Mass fraction] 96 % Sasha Shepherd LPN [facility], Inc.; [employer] 02-12-2015 18:30-0400 Systolic blood pressure 155 mm[Hg] Sasha Shepherd LPN [facility] [employer]. Comment on above: Patient Position: Sitting; Cuff Location : Left Arm; Cuff Size: Standard 10-04-2014 09:50-0500 Body height 152.4 cm Shu J Chow PA-C Work Phone: [employer] 10-04-2014 09:50-0500 Body mass index (BMI) [Ratio] 40.11 kg/m2 Shu Lyndon Chow PA-C Work Phone: [employer].; [employer]. 10-04-2014 09:50-0500 Body surface area Derived from formula 1.89 m2 Shu J Chow PA-C Work Phone: [employer].; [employer]. 10-04-2014 09:50-0500 Body weight 93.16 kg Shu Lyndon Chow PA-C Work Phone: [employer].; [employer]. 10-04-2014 09:50-0500 Diastolic blood pressure 93 mm[Hg] Shu Lyndon Chow PA-C Work Phone: [employer]. Comment on above: Patient Position: Sitting; Cuff Location : Left Arm; Cuff Size: Standard 10-04-2014 09:50-0500 Heart rate 73 /min Shu Lyndon Chow PA-C Work Phone: [employer]. Comment on above: Pattern: Regular 10-04-2014 09:50-0500 Systolic blood pressure 171 mm[Hg] Shu Lyndon Chow PA-C Work Phone: [employer]. Comment on above: Patient Position: Sitting; Cuff Location : Left Arm; Cuff Size: Standard 05-03-2014 10:13-0400 Body height 154.94 cm Shu Lyndon Chow PA-C Work Phone: [employer] 05-03-2014 10:13-0400 Body mass index (BMI) [Ratio] 38.36 kg/m2 Shu Haney Chow PA-C Work Phone: [employer]; [employer]. 05-03-2014 10:13-0400 Body surface area Derived from formula 1.9 m2 Shu Haney Chow PA-C Work Phone: [employer]. 05-03-2014 10:13-0400 Body weight 92.08 kg Shu Haney Chow PA-C Work Phone: [employer]; [employer]. 05-03-2014 10:13-0400 Diastolic blood pressure 110 mm[Hg] Shu Haney Chow PA-C Work Phone: [employer]; [employer]. Comment on above: Patient Position: Sitting; Cuff Location : Left Arm; Cuff Size: Standard 05-03-2014 10:13-0400 Heart rate 74 /min Shu Haney Chow PA-C Work Phone: [employer]; [employer]. Comment on above: Pattern: Regular 05-03-2014 10:13-0400 Systolic blood pressure 200 mm[Hg] Shu Haney Chow PA-C Work Phone: [employer]; [employer]. Comment on above: Patient Position: Sitting; Cuff Location : Left Arm; Cuff Size: Standard Encounters Encounter Date Encounter Type Care Provider Facility Start: 05-04-2025 ambulatory [facility] Facility :[facility] Start: 05-02-[address] Sherry Conn MD -[facility] Start: 05-02-2025 End: 05-02-2025 Patient encounter procedure Alyssa HAWKINS -[facility] Work Phone: Start: 05-02-2025 End: 05-02-2025 ambulatory Shu Chow PA Work Phone: -[facility] Start: 04-18-2025 End: 04-18-[address] [place] Conn MD -[facility] Work Phone: Start: 04-18-2025 End: 04-18-2025 ambulatory Shu Abbotter PA Work Phone: [facility] Work Phone: Start: 04-18-[address] Sherry Conn MD -[facility] Start: 04-04-[address] Sherry Conn MD -[facility] Start: 04-04-2025 End: 04-04-2025 Patient encounter procedure Alyssa AllenKeila SECURITY INFRASTRUCTURE ENGINEER-C -[facility] Work Phone: Start: 04-04-2025 End: 04-04-2025 ambulatory Shu Chow PA Work Phone: [facility] Work Phone: Start: 03-24-2025 End: 03-24-2025 Patient encounter procedure Shu Chow PA-C Work Phone: [facility]; [facility] Start: 03-24-2025 End: 03-24-2025 Periodic preventive med est patient 65yrs& older Shu Abbotter PA-C Work [facility]: [facility] Start: 03-21-[address] Sherry Conn MD -[facility] Start: 03-21-2025 End: 03-21-2025 Patient encounter procedure Alyssa AllenKeila SECURITY INFRASTRUCTURE ENGINEER-C -[facility] Work Phone: Start: 03-21-2025 End: 03-21-2025 ambulatory Shu Abbotter PA Work Phone: [facility] Work Phone: Start: 03-20-2025 ambulatory Michael Gaines Facility :[facility] Start: 03-20-2025 Non-patient / Non-visit Dr. Storm PIRES -[facility] Start: 03-20-2025 End: 03-20-2025 Admission to same day surgery center Dr. Michael G[facility] Start: 03-20-2025 End: 03-20-2025 ambulatory Shu Chow PA Work Phone: [facility] Work Phone: Start: 03-17-2025 End: 03-17-[facility]: [facility] Start: 03-15-2025 End: 03-15-[address] Michael Gaines MD -[facility] Work Phone: Start: 03-15-2025 End: 03-15-[address] [facility] Work Phone: [facility] Work Phone: Start: 03-15-2025 End: 03-15-2025 Patient encounter procedure Alyssa Lynch NP-C -[facility] Work Phone: Start: 03-15-2025 End: 03-15-[address] [facility] Work Phone: [facility] Work Phone: Start: 03-09-[address] Sherry Conn MD -[facility] Start: 03-09-2025 End: 03-09-[address] New Conn MD -[facility] Work Phone: Start: 03-09-2025 End: 03-09-2025 ambulatory [facility] Facility:[facility] Start: 03-06-2025 Non-patient / Non-visit Shikha Pleitez si, LPN -[facility] Work Phone: Start: 03-06-2025 ambulatory [facility] Facility :[facility] Start: 02-21-2025 End: 02-21-2025 Postop follow up visit related to original px Sachi Rosas MBBS Work Phone: Division of Colon & Rectal Surgery Comment on above: Malignant neoplasm o f ascending colon (Primary Dx) Start: 02-21-2025 ambulatory SHU Chiu ty:[facility] Start: 02-01-2025 End: 02-01-2025 Office outpatient visit 25 minutes Shu Chow PA-C Work Phone: [employer] [facility] [employer] Start: 02-01-2025 ambulatory AGATA Ellis ity:[facility] Start: 01-30-2025 End: 01-30-2025 Telephone follow-up Shu Chow PA-C Work Phone: [employer] Start: 01-29-2025 End: 01-29-2025 ambulatory Tricia Otero RN Oncology Nurse Wendi amador Start: 01-23-2025 End: 01-28-2025 Evaluation and management of inpatient Sachi LEGER Work Phone: [email or web address] Comment on above: Colon cancer Start: 01-16-2025 End: 01-16-2025 Orders Shu Chow PA-C Work Phone: [employer] Start: 01-16-2025 ambulatory SHU Chiu ty:[facility] Start: 01-13-2025 Review Shu Chow PA-C Work Phone: [employer] [facility] [employer] Start: 01-10-2025 ambulatory MACKENZIE REYES Facilit y:[facility] Start: 01-10-2025 End: 01-10-2025 Office outpatient new 45 minutes Mackenzie Reyes POLISHER AND SANDER-RECEIVING ROOM CLERK Work Phone: Pre-Procedure Evaluation and Assessment [facility] Comment on above: Preop exam for inter nal medicine (Primary Dx); Malignant neoplasm of ascending colon; Essential hypertension; Mixed hyperlipidemia; Abnormal coagulation profile Start: 01-10-2025 End: 01-10-2025 Patient encounter status Mackenzie Reyes POLISHER AND SANDER-RECEIVING ROOM CLERK Work Phone: [facility] Start: 01-10-2025 Encounter for other preprocedural examination MACKENZIE REYES Facility:[facility] Start: 01-10-2025 End: 01-10-2025 Clinical Support Encounter [facility] Humberto Payton 8 Work Phone: [facility] Comment on above: Malignant neoplasm o f ascending colon (Primary Dx) Start: 01-10-2025 ambulatory MACKENZIEALEX REYES Facilit y:[facility] Start: 01-03-2025 ambulatory SHU Chiu ty:[facility] Start: 12-31-2024 ambulatory SHU Ellisi ty:[facility] Start: 12-31-2024 End: 12-31-2024 Subsequent hospital visit by physician Sachi LEGER Work Phone: [facility] Comment on above: Arrived Start: 12-06-2024 End: 12-06-2024 Office consultation new/estab patient 40 min Sachi LEGER Work Phone: Division of Colon & Rectal Surgery Comment on above: Malignant neoplasm o f ascending colon (Primary Dx) Start: 12-06-2024 ambulatory SHU Chiu ty:[facility] Start: 11-17-2024 End: 11-17-2024 ambulatory [facility] Start: 11-15-2024 Evaluation and manag ement of inpatient [facility] Start: 08-17-2024 End: 08-17-2024 ambulatory [facility] Start: 08-01-2024 End: 08-01-2024 ambulatory [facility] Start: 07-05-2024 End: 07-06-2024 Orders Shu Chow PA-C Work Phone: [employer] [facility] Start: 06-27-2024 End: 06-27-2024 Patient encounter procedure Shu Chow PA-C Work Phone: [facility].; [facility]. Start: 06-27-2024 End: 06-27-2024 Periodic preventive med est patient 65yrs& older Shu Chow PA-C Work Phone: [employer]. Start: 05-04-2024 End: 05-06-2024 Orders Shu Chow PA-C Work Phone: [employer] Start: 02-05-2024 End: 02-05-2024 Office outpatient visit 25 minutes Shu Chow PA-C Work Phone: [employer]. Start: 12-23-2023 End: 02-04-2024 ambulatory [facility] Start: 12-21-2023 End: 12-21-2023 ambulatory DURAND Lyndon [facility] Start: 12-01-2023 End: 12-01-2023 ambulatory SHU Lyndon [facility] Start: 12-01-2023 End: 12-01-2023 Encounter for other preprocedural examination KALPESH BOLES [facility] Start: 11-23-2023 End: 11-23-2023 Patient encounter procedure Shu Chow PA-C Work Phone: [facility] [facility]. Start: 11-23-2023 End: 11-23-2023 Preprocedural examination done Shu Chow PA-C Work Phone: [employer]. Start: 07-27-2023 End: 07-27-2023 Patient encounter procedure Shu Chow PA-C Work Phone: [employer]. Start: 07-20-2023 End: 07-20-2023 Orders Shu Chow PA-C Work Phone: [employer]. Start: 01-29-2023 End: 01-29-2023 Office outpatient visit 25 minutes Shu Chow PA-C Work Phone: [employer]. Start: 08-18-2022 End: 08-18-2022 Orders Shu Chow PA-C Work Phone: [employer]. Start: 08-01-2022 End: 08-01-2022 Patient encounter procedure Shu Chow PA-C Work Phone: [employer]. Start: 04-16-2022 End: 04-16-2022 Orders Shu Chow PA-C Work Phone: [employer]. Start: 01-23-2022 End: 01-23-2022 Office outpatient visit 25 minutes Shu Chow PA-C Work Phone: [employer]. Start: 04-11-2021 End: 04-11-2021 Orders Shu Chow PA-C Work Phone: [employer]. Start: 01-23-2021 End: 01-23-2021 Office outpatient visit 15 minutes Shu Chow PA-C Work Phone: [employer]. Start: 01-09-2021 End: 01-09-2021 Office outpatient visit 25 minutes Shu Chow PA-C Work Phone: [employer]. Start: 06-25-2020 End: 06-25-2020 Orders Shu Chow PA-C Work Phone: [employer]. Start: 06-25-2020 End: 06-25-2020 Orders Shu Chow PA-C Work Phone: [employer]. Start: 06-18-2020 End: 06-18-2020 Patient encounter procedure Irish Solano LPN [employer]. Start: 05-03-2020 End: 05-07-2020 Orders Shu Chow PA-C Work Phone: [employer]. Start: 01-02-2020 End: 01-02-2020 Office outpatient visit 15 minutes Shu Chow PA-C Work Phone: [employer]. Start: 06-15-2019 End: 06-16-2019 Patient encounter procedure Irish Solano LPN [employer]. Start: 05-18-2019 End: 05-18-2019 Orders Shu Chow PA-C Work Phone: [employer]. Start: 11-04-2018 End: 11-04-2018 Office outpatient visit 25 minutes Shu Chow PA-C Work Phone: [employer]. Start: 10-04-2018 End: 10-04-2018 Office outpatient visit 15 minutes Shu Chow PA-C Work Phone: [employer]. Start: 04-26-2018 End: 04-26-2018 Orders Shu Chow PA-C Work Phone: [employer]. Start: 04-22-2018 End: 04-23-2018 Office outpatient visit 15 minutes Shu Chow PA-C Work Phone: [employer]. Start: 12-14-2017 End: 12-14-2017 Orders Shu Chow PA-C Work Phone: [employer]. Start: 12-10-2017 End: 12-13-2017 Patient encounter procedure Shu Chow PA-C Work Phone: [employer]. Start: 11-09-2017 End: 11-09-2017 Patient encounter procedure Irish Solano AGRICULTURAL SCIENCES PROFESSOR [employer]. Start: 10-25-2017 End: 10-25-2017 Emergency department patient visit [facility] Facility:[facility] Start: 09-04-2017 End: 09-04-2017 Orders Shu Chow PA-C Work Phone: [employer]. Start: 04-29-2017 End: 04-29-2017 Office outpatient visit 15 minutes Shu Chow PA-C Work Phone: [employer]. Start: 10-09-2016 End: 10-09-2016 Patient encounter procedure Shu Chow PA-C Work Phone: [employer]. Start: 04-24-2016 End: 04-24-2016 Patient encounter procedure Shu Chow PA-C Work Phone: [employer]. Start: 04-23-2016 End: 04-23-2016 Historical Summary Shu Chow PA-C Work Phone: [employer]. Start: 10-10-2015 End: 10-10-2015 Orders Shu Chow PA-C Work Phone: [employer]. Start: 10-03-2015 End: 10-03-2015 Patient encounter procedure Shu Chow PA-C Work Phone: [employer]. Start: 08-22-2015 End: 08-22-2015 Orders Shu Chow PA-C Work Phone: [employer]. Start: 04-04-2015 End: 04-04-2015 Patient encounter procedure Shu Chow PA-C Work Phone: [employer]. Start: 02-12-2015 End: 02-12-2015 Patient encounter procedure Shu Chow PA-C Work Phone: [employer]. Start: 10-04-2014 End: 10-04-2014 Patient encounter procedure Shu Chow PA-C Work Phone: [employer]. Start: 05-03-2014 End: 05-03-2014 Manual pelvic examination Shu ROLDANC Work Phone: [employer].; [employer]. Start: 05-03-2014 End: 05-03-2014 Patient encounter procedure Shu JAUREGUI-C Work Phone: [employer]. [facility] Shu JAUREGUI-C Work Phone: [employer].; [employer] Admission to [facility] Carlie Xiao AGRICULTURAL SCIENCES PROFESSORGallup Indian Medical CenterLocalmind [facility] HospitalNuclea Biote[employer]ologies Inc.; [facility] [facility], Inc. Admission to [facility] Roverto Lynch AGRICULTURAL SCIENCES PROFESSOR [facility].; [facility], [facility] Admission to [facility] Amy Leonbrittanie [facility], [facility].; [facility] Manual pelvic examination Amy Edwardbrittanie [facility], [facility] Patient encounter procedure Roverto Miracle Lynch LPN [facility].; [facility] Patient encounter procedure Amyjen Soriano [facility].; [facility] Procedures Date Procedure Procedure Detail Performing Clinician Start: 05-02-2025 Estimated creatinine clearance Shu Chow PA Work Phone: Start: 04-18-2025 Estimated creatinine clearance Shu Chow PA Work Phone: Start: 04-04-2025 Estimated creatinine clearance Shu Chow PA Work Phone: Start: 03-24-2025 End: 03-24-2025 Adv care pln/ no alt dcsn mkr docd or refusal Shu Haney Chow PA-C Work Phone: Start: 03-24-2025 End: 03-24-2025 Depression screening Shu J Chow PA -C Work Phone: Start: 03-24-2025 End: 03-24-2025 Falls risk assessment documented Shu J Chow PA-C Work Phone: Start: 03-24-2025 End: 03-24-2025 PPPS, subseq visit Shu J Chow PA- C Work Phone: Start: 03-24-2025 End: 03-24-2025 Pt falls assess docd w/o fall/injury past year Shu J Chow PA-C Work Phone: Start: 03-24-2025 End: 03-24-2025 Scr dep neg, no plan reqd Shu Haney Palm er PA-C Work Phone: Start: 03-21-2025 Estimated creatinine clearance Shu Chow PA Work Phone: Start: 03-20-2025 End: 03-20-2025 port placement for CA treatment Amy Soriano CCMA Start: 03-20-2025 Plain chest X-ray Debbie sa Geraldo JAUREGUI Work Phone: Start: 03-20-2025 Implantation to cardiovascular system Shu Geraldo JAUREGUI Work Phone: Start: 03-20-2025 Fluoroscopic guidance Miracle cuauhtemoc Geraldo JAUREGUI Work Phone: Start: 01-28-2025 Radiologic exam abdo men 1 view Malick Mays Ricci POLISHER AND SANDER-RECEIVING ROOM CLERK Work Phone: Start: 01-28-2025 Assay of magnesium Giorgio Mares MD Work Phone: Start: 01-27-2025 Radiologic exam abdo men 1 view Malick Ricci POLISHER AND SANDER-RECEIVING ROOM CLERK Work Phone: Start: 01-27-2025 Assay of magnesium Giorgio Mares MD Work Phone: Start: 01-26-2025 CARDIAC RHYTHM Other Ot her OT Start: 01-26-2025 Assay of magnesium Giorgio Mares MD Work Phone: Start: 01-25-2025 Radiologic exam abdo men 1 view Rica Ocampo MD Work Phone: Start: 01-25-2025 Assay of magnesium Giorgio Mares MD Work Phone: Start: 01-24-2025 Assay of magnesium Giorgio Mares MD Work Phone: Start: 01-23-2025 End: 01-23-2025 Right hemicolectomy Amy Soriano CCMA Start: 01-23-2025 CONTINUOUS CARDIAC MONITORING STRIP Other Other Start: 01-23-2025 End: 01-23-2025 Laparoscopy colectomy partial w/anastomosis Sachi LEGER Work Phone: Start: 01-23-2025 CONTINUOUS CARDIAC MONITORING STRIP Other Other Start: 01-23-2025 ABORH TYPE RECONFIRMATION Akua Grove DO Work Phone: Start: 01-10-2025 Antibody screen Mackenzie haley POLISHER AND SANDER-RECEIVING ROOM CLERK Work Phone: Start: 01-10-2025 Antibody screen MACKENZIE HALEY Comment on above: Performed By: #### X MPO #### [facility] (DEFAULT) [address] [place] [id number] Start: 01-10-2025 Blood typing serologic abo Mackenzie Noblesbrendanfrancis POLISHER AND SANDER-RECEIVING ROOM CLERK Work Phone: Start: 01-10-2025 CBC AND ELECTRONIC DIFF Mackenzie Reyes POLISHER AND SANDER-RECEIVING ROOM CLERK Work Phone: Start: 01-10-2025 Complete blood count with white cell differential, automated Mackenzie Reyes POLISHER AND SANDER-RECEIVING ROOM CLERK Work Phone: Start: 01-10-2025 Comprehensive metabo lic panel Mackenzie Reyes POLISHER AND SANDER-RECEIVING ROOM CLERK Work Phone: Start: 01-10-2025 PREPARE TO TRANSFUSE OR RED BLOOD CELLS Mackenzie Noblesmady POLISHER AND SANDER-RECEIVING ROOM CLERK Work Phone: Start: 12-31-2024 Creatinine blood Sachi G Chaka MBBS Work Phone: Start: 06-27-2024 End: 06-27-2024 Adv care pln/ no alt dcsn mkr docd or refusal Shu Chow PA-C Work Phone: Start: 06-27-2024 End: 06-27-2024 Depression screening Shu Strickland Work Phone: Start: 06-27-2024 End: 06-29-2024 Ecg routine ecg w/least 12 lds w/i&r Shu Chow PA-C Work Phone: Comment on above: Sinus rhythm with oc casional supraventricular complexes. Start: 06-27-2024 End: 06-27-2024 Falls risk assessment documented Shu Chow PA-C Work Phone: Start: 06-27-2024 End: 06-27-2024 No Known Past Surgical History Shu Chow PA-C Work Phone: Start: 06-27-2024 End: 06-27-2024 PPPS, subseq visit Shu Chow PA- C Work Phone: Start: 06-27-2024 End: 06-27-2024 Pt falls assess docd w/o fall/injury past year Shu Chow PA-C Work Phone: Start: 06-27-2024 End: 06-27-2024 Scr dep neg, no plan reqd Shu Abbott er PA-C Work Phone: Start: 12-03-2023 End: 12-03-2023 Total replacement of right knee joint Shu Chow PA-C Work Phone: Start: 11-23-2023 End: 11-27-2023 Ecg routine ecg w/least 12 lds w/i&r Shu Chow PA-C Work Phone: Comment on above: Normal sinus rhythm Start: 07-27-2023 End: 07-27-2023 Adv care pln/ no alt dcsn mkr docd or refusal Shu Chow PA-C Work Phone: Start: 07-27-2023 End: 07-27-2023 Depression screening Shu Chow PA -C Work Phone: Start: 07-27-2023 End: 07-27-2023 Falls risk assessment documented Shu Chow PA-C Work Phone: Start: 07-27-2023 End: 07-27-2023 PPPS, subseq visit Shu Chow PA- C Work Phone: Start: 07-27-2023 End: 07-27-2023 Pt falls assess docd w/o fall/injury past year Shu Chow PA-C Work Phone: Start: 07-27-2023 End: 07-27-2023 Scr dep neg, no plan reqd Shu Abbott er PA-C Work Phone: Start: 07-27-2023 End: 08-24-2023 Screening digital breast tomosynthesis bi Shu Haney Chow PA-C Work Phone: Start: 07-20-2023 End: 07-20-2023 Lipid panel Roverto Rausch Keila LP N Comment on above: TC 204, HDL 67, LDL 107, Trig 178 Start: 08-01-2022 End: 08-01-2022 Bone density scan Roverto Rausch Keila LP N Comment on above: Normal. Start: 08-01-2022 End: 08-28-2022 Screening mammography Roverto Rausch Keila AGRICULTURAL SCIENCES PROFESSOR Comment on above: Normal. Start: 08-01-2022 End: 08-29-2022 Dxa bone density study 1/> sites axial skel Shu Lyndon Abbotter PA-C Work Phone: Start: 07-17-2022 End: 07-17-2022 Lab findings surveillance Roverto Rausch Markus ach AGRICULTURAL SCIENCES PROFESSOR Comment on above: 98 CMP Start: 01-23-2021 End: 02-04-2021 Us abdominal real time w/image documentation Shu Haney Chow PA-C Work Phone: Start: 06-18-2020 End: 06-18-2020 Depression screening Shu Lyndon Abbotter PA -C Work Phone: Start: 06-18-2020 End: 06-18-2020 Falls risk assessment documented Shutim Abbotter PA-C Work Phone: Start: 06-18-2020 End: 06-18-2020 PPPS, subseq visit Shu Lyndon Abbotter PA- C Work Phone: Start: 06-18-2020 End: 06-18-2020 Pt falls assess docd w/o fall/injury past year Shu Lyndon Abbotter PA-C Work Phone: Start: 06-18-2020 End: 06-18-2020 Scr dep neg, no plan reqd Shu Haney Scar er PA-C Work Phone: Start: 06-14-2020 End: 03-04-2022 Screening mammography bi 2-view breast inc cad Shu J Chow PA-C Work Phone: Start: 06-15-2019 End: 06-15-2019 Depression screening Shu Chow PA -C Work Phone: Start: 06-15-2019 End: 06-15-2019 Falls risk assessment documented Shu Abbotter PA-C Work Phone: Start: 06-15-2019 End: 06-15-2019 PPPS, subseq visit Shu Abbotter PA- C Work Phone: Start: 06-15-2019 End: 06-15-2019 Pt falls assess docd 2/> falls/fall w/injury/yr Shu Abbotter PA-C Work Phone: Start: 06-15-2019 End: 06-15-2019 Scr dep neg, no plan reqd Shu Abbott er PA-C Work Phone: Start: 05-18-2019 End: 03-04-2022 Screening mammography bi 2-view breast inc cad Shu Abbotter PA-C Work Phone: Start: 04-25-2019 End: 04-25-2019 vit d Roverto Lynch LP N Comment on above: Normal. 30 Start: 04-26-2018 End: 03-04-2022 Polysom 6/>yrs sleep w/cpap 4/> addl jacob attnd Shu Haney Chow PA-C Work Phone: Start: 12-14-2017 End: 05-12-2018 Continuous negative pressure ventj initiat&mgm Shu Abbotter PA-C Work Phone: Start: 12-10-2017 End: 12-10-2017 Body mass index documented Shu Haney Pal heriberto PA-C Work Phone: Start: 11-09-2017 End: 11-09-2017 Body mass index documented Shu Haney Pal heriberto PA-C Work Phone: Start: 11-09-2017 End: 11-09-2017 Most recent diastol blood pres >/equal 90 mm hg Shu Haney Chow PA-C Work Phone: Start: 11-09-2017 End: 11-09-2017 Most recent systolic blood pres>/equal 140 mm hg Shu ROLDANC Work Phone: Start: 11-09-2017 End: 11-09-2017 Pt falls assess docd w/o fall/injury past year Shu JAUREGUI-C Work Phone: Start: 11-09-2017 End: 11-09-2017 Scr dep neg, no plan reqd Shu ROLDANC Work Phone: Start: 11-09-2017 End: 12-11-2017 Mri brain brain stem w/o contrast material Shu Chow PA-C Work Phone: Start: 11-09-2017 End: 11-11-2017 Duplex scan extracranial art compl bi study Shu ROLDANC Work Phone: Start: 11-09-2017 End: 11-13-2017 Doppler echocard pulse wave w/spectral display Shu Chow PA-C Work Phone: Start: 11-09-2017 End: 12-13-2017 PPPS, subseq visit Shu ROLDAN C Work Phone: Start: 11-09-2017 End: 12-10-2017 Screening mammography bi 2-view breast inc cad Shu ROLDANC Work Phone: Start: 11-09-2017 End: 11-09-2017 Falls risk assessment documented Shu ROLDANC Work Phone: Start: 11-09-2017 End: 11-09-2017 Depression screen annual Shu yan PA-C Work Phone: Start: 04-29-2017 End: 04-29-2017 Depression screen annual Shu yan PA-C Work Phone: Start: 04-29-2017 End: 08-11-2017 Falls risk assessment documented Shu JAUREGUI-C Work Phone: Start: 10-03-2015 End: 08-29-2019 PPPS, initial visit Shu Vela Work Phone: Start: 10-03-2015 End: 12-12-2015 Dxa bone density study 1/> sites axial skel Shu Lyndon Chow PA-C Work Phone: Start: 10-03-2015 End: 10-31-2015 Mammogram, screening Suh Lyndon Strickland Work Phone: Start: 10-02-2015 End: 10-02-2015 Thyrotropin [Units/volume] in Serum or Plasma Roverto Lynch LPN Comment on above: 2.46 Start: 10-02-2014 End: 10-02-2014 Basic metabolic 2000 panel - Serum or Plasma Roverto Lynch LPN Comment on above: glucose 82 Start: 06-06-2014 End: 06-06-2014 Screening colonoscopy Roverto Lynch LPN Comment on above: Normal. Dr Abby Boles Start: 05-03-2014 End: 05-03-2014 No Known Past Surgical History Shu Chow PA-C Work Phone: Start: 05-02-2014 End: 05-02-2014 Microscopic examination of cervical Papanicolaou smear Roverto Lynch AGRICULTURAL SCIENCES PROFESSOR LMP Roverto M Schlaba ch AGRICULTURAL SCIENCES PROFESSOR Comment on above: 64 LMP Roverto M Schlaba ch AGRICULTURAL SCIENCES PROFESSOR Comment on above: 64 LMP Amy Soriano CCMA Comment on above: 64 Ophthalmic examinati on and evaluation Roverto yLnch AGRICULTURAL SCIENCES PROFESSOR Comment on above: 4 years ago Ophthalmic examinati on and evaluation Roverto Lynch AGRICULTURAL SCIENCES PROFESSOR Comment on above: 4 years ago Ophthalmic examinati on and evaluation Amy Soriano CCMA Comment on above: 4 years ago Plan of Treatment Date Care Activity Detail Author Start: 01-28-2026 Potassium [Moles/volume] in Serum or Plasma POTASSIUM [facility] Start: 08-17-2025 Screening for malignant neoplasm of colon COLORECTAL CANCER SCREENING DISCUSSION [facility] Start: 07-03-2025 Influenza vaccination INFLUENZA VACCINE (Season Ended) [facility] Start: 05-02-2025 Carcinoembryonic Ag [Mass/volume] in Serum or Plasma [facility] Start: 05-02-2025 Cobalamin (Vitamin B12) [Mass/volume] in Serum or Plasma [facility] Start: 05-02-2025 Ferritin [Mass/volume] in Serum or Plasma [facility] Start: 05-02-2025 Iron and Iron binding capacity panel - Serum or Plasma [facility] Start: 05-02-2025 Serum inorganic phosphate measurement [facility] Start: 05-02-2025 [facility] Start: 05-02-2025 Vital signs measurements [facility] Start: 04-18-2025 [facility] Start: 04-18-2025 Vital signs measurements [facility] Start: 04-04-2025 [facility] Start: 04-04-2025 Vital signs measurements [facility] Start: 03-24-2025 Patient encounter procedure Medical; [facility] Start: 24-Mar-2025 08:20-04:00 JOELLE Chow [facility] Start: 03-21-2025 Carcinoembryonic Ag [Mass/volume] in Serum or Plasma [facility] Start: 03-21-2025 [facility] Start: 03-21-2025 Venous catheter care management [facility] Start: 03-21-2025 Vital signs measurements [facility] Start: 03-21-2025 [facility] Start: 03-20-2025 Anesthesia access central venous circulation ANESTH VASCULAR ACCESS [facility] Start: 03-20-2025 Insj tunneled ctr vad w/subq port age 4 yr/> INSERT TUNNELED CV CATH [facility] Start: 03-20-2025 Patient discharge [facility] Start: 03-17-2025 25 hydroxy includes fractions if performed [employer] Start: 03-17-2025 Assay of free thyroxine [employer]. Start: 03-17-2025 Assay of thyroid stimulating hormone tsh [employer]. Start: 03-17-2025 Comprehensive metabolic panel [employer] Start: 03-17-2025 [facility]id [facility]; [facility]. Start: 03-17-2025 Blood count complete auto&auto difrntl wbc [facility]; [facility] Start: 03-17-2025 Nursing evaluation of patient and report Medical; Nurse visit - AWV. [facility] Start: 17-Mar-2025 09:00-04:00 NURSE, FLOAT Appointment [facility] Start: 03-09-2025 Patient referral [facility] Work Phone: Start: 02-21-2025 End: 02-21-2025 Patient encounter procedure 02/21/2025 1:45 PM EDT Office Visit Division of Colon & Rectal Surgery [address] [phone] Sachi Rosas MBBS [address] [phone] Division of Colon & Rectal Surgery Start: 02-01-2025 Patient encounter procedure Medical; Hospital F/U - IPFU [facility] 01/28, R hemicolectomy sec. to colon ca [facility] Start: 01-Feb-2025 14:00-04:00 JOELLE Chow [facility]ment [facility] Start: 01-23-2025 End: 01-23-2025 Evaluation and management of inpatient 01/23/2025 7:15 AM EDT - 01/23/2025 12:15 PM EDT Surgery [facility]CT [facility] [address] [place] [address] Sachi Rosas MBBS [address] [phone] COLECTOMY PARTIAL ROBOTIC XI RIGHT [facility] Comment on above: COLECTOMY PARTIAL ROBOTIC XI RIGHT Start: 01-23-2025 End: 01-23-2025 Laparoscopy colectomy partial w/anastomosis COLECTOMY PARTIAL ROBOTIC XI RIGHT Malignant neoplasm of ascending colon 01/23/2025 7:15 AM EDT [facility] Start: 01-23-2025 Evaluation and management of inpatient 01/23/2025 5:15 AM EDT Hospital Encounter [facility] [address] [place] [phone] Sachi Rosas, MBBS [address] [phone] Malignant neoplasm of ascending colon [facility] Comment on above: Malignant neoplasm of ascending colon Start: 01-16-2025 End: 01-16-2025 Anesthesia consultation 01/16/2025 2:00 PM EDT Pre-Operative Nurse Assessment [facility] [address] [place] [phone] Sachi Rosas, MBBS [address] [place] [phone] [facility] Start: 01-03-2025 End: 01-03-2025 Telemedicine consultation with patient 01/03/2025 7:45 AM EST Telemedicine Division of Colon & Rectal Surgery [address] [place] [phone] Sachi Rosas, MBBS [address] [phone] Division of Colon & Rectal Surgery Start: 12-31-2024 End: 12-31-2024 Patient encounter procedure [facility] Start: 12-06-2024 End: 12-06-2025 CT Chest W contrast IV CT CHEST WITH CONTRAST Imaging Routine Malignant neoplasm of ascending colon Expected: 12/06/2024, Expires: 12/06/2025 [facility] Comment on above: Expected: 12/06/2024, Expires: Start: 12-06-2024 End: 12-06-2025 MR Abdomen WO and W contrast IV MRI ABDOMEN WITH AND WITHOUT CONTRAST Imaging Routine Malignant neoplasm of ascending colon Expected: 12/06/2024, Expires: 12/06/[address] [facility] Comment on above: Expected: 12/06/2024, Expires: Start: 2024 RSV VACCINE (1 - 1-dose 75+ series) RSV VACCINE (1 - 1-dose 75+ series) [facility] Start: 08-04-2024 Patient encounter procedure Medical; EXTENDED RTN - 6 mo rtn [facility] Start: 04-Aug-2024 13:10-04:00 JOELLE Chow [facility] Start: 07-05-2024 Assay of thyroid stimulating hormone tsh TSH (THYROID STIMULATING HORMONE) (99636) Start: 05-Jul-2024 08:27-04:00 Request [employer]. Start: 07-05-2024 Lipid panel LIPID PANEL (75833) Start: 05-Jul-2024 08:25-04:00 Request [employer]. Start: 07-05-2024 Comprehensive metabolic panel CMP w/ GFR* ([id number]) Start: 05-Jul-2024 08:25-04:00 Request [employer]. Start: 07-05-2024 25 hydroxy includes fractions if performed Vitamin D, 25-Hydroxy, LC/MS/MS ([id number]) Start: 05-Jul-2024 08:25-04:00 Request [employer]. Start: 07-05-2024 Nursing evaluation of patient and report Medical; Nurse visit - Fasting Labs - MJP [employer] Start: 05-Jul-2024 08:20-04:00 NURSE, FLOAT Appointment Request [employer] Start: 07-03-2024 COVID-19 VACCINE () COVID-19 VACCINE () [facility] Start: 07-03-2024 Influenza vaccination INFLUENZA VACCINE (#1) [facility] Start: 06-28-2024 Assay of thyroid stimulating hormone tsh TSH (THYROID STIMULATING HORMONE) ([id number]) Start: 28-Jun-2024 Request [employer]. Start: 06-27-2024 End: 06-27-2024 Ecg routine ecg w/least 12 lds w/i&r ELECTROCARDIOGRAM WITH INTERPRETATION ([id number]) Date: 27-Jun-2024 Comments: Sinus rhythm with occasional supraventricular complexes. [employer]. Comment on above: Sinus rhythm with occasional supraventri cular complexes. Start: 06-27-2024 Patient encounter procedure Medical; PHYSICAL - Medicare wellness [employer]. Start: 27-Jun-2024 14:00-04:00 JOELLE Chow Appointment Request [facility] Start: 06-27-2024 Screening digital breast tomosynthesis bi Mammogram 3D (tomosynthesis), bilateral (75828) Start: 27-Jun-2024 Intent [employer]; [employer]. Start: 06-02-2024 25 hydroxy includes fractions if performed Vitamin D, 25-Hydroxy, LC/MS/MS (61391) Start: 02-Jun-2024 Request [employer]; [employer]. Start: 06-02-2024 Comprehensive metabolic panel CMP w/ GFR* (44587) Start: 02-Jun-2024 Request [employer]. Start: 06-02-2024 Lipid panel LIPID PANEL ([id number]) Start: 02-Jun-2024 Request [employer]. Start: 06-02-2024 Nursing evaluation of patient and report Medical; Nurse visit - Medicare wellness fasting labs MJP [employer]. Start: 02-Jun-2024 08:40-04:00 NURSE, FLOAT Appointment Request [employer]. Start: 02-04-2024 Patient encounter procedure [employer] Start: 11-23-2023 Ecg routine ecg w/least 12 lds w/i&r ELECTROCARDIOGRAM WITH INTERPRETATION ([id number]) Start: 23-Nov-2023 Intent Comments: Normal sinus rhythm [employer]; [employer]. Comment on above: Normal sinus rhythm Start: 11-23-2023 Blood count complete auto&auto difrntl wbc CBC, PLATELETS & AUT DIFF (F) (37747) Start: 23-Nov-2023 10:46 Request [employer]; [employer]. Start: 11-23-2023 Comprehensive metabolic panel CMP w/ GFR* ([id number]) Start: 23-Nov-2023 10:46 Request [employer]; [employer]. Start: 11-23-2023 Admission to same day surgery [facility]; EXTENDED RTN - preop [facility] R knee (surgery 12/21 [employer]. Start: 23-Nov-2023 10:20 JOELLE Chow Appointment Request [employer]. Start: 07-27-2023 Provider Instructions for Treatment [facility] HM Issues, 65+ female Indication: Medicare annual wellness visit, subsequent Start: 27-Jul-2023 Instruction Type: Provider Instructions for Treatment [employer]. Start: 1999 Pneumococcal vaccination PNEUMOCOCCAL VACCINE SERIES (1 of 1 - PCV) [facility] Start: 1999 Zoster vaccine hzv live for subcutaneous use ZOSTER (SHINGLES) VACCINE (1 of 2) [facility] Start: 1989 Lipid panel LIPID SCREENING [facility] Start: 1989 Screening for malignant neoplasm of breast MAMMOGRAM SCREENING DISCUSSION [facility] Start: 1970 Screening for malignant neoplasm of cervix CERVICAL CANCER SCREENING DISCUSSION [facility] Start: 1968 Third diphtheria, tetanus and acellular pertussis (DTaP) vaccination TDAP (ADULT) [facility] Start: 1949 Hepatitis C screening HEPATITIS C VIRUS SCREENING [facility] Start: 1949 Screening for osteoporosis DEXA SCAN DISCUSSION [facility] Start: 1949 Tetanus vaccination TETANUS [facility] Alanine aminotransfe rase [Enzymatic activity/volume] in Serum or Plasma [facility] Albumin [Mass/volume ] in Serum or Plasma [facility] Alkaline phosphatase [Enzymatic activity/volume] in Serum or Plasma [facility] Anion gap in Serum o r Plasma [facility] Bilirubin, total measurement [facility] BUN/Creatinine ratio [facility] Calcium [Mass/volume ] in Serum or Plasma [facility] Carbon dioxide, tota l [Moles/volume] in Central venous blood [facility] Carcinoembryonic Ag [Mass/volume] in Serum or Plasma [facility] Cobalamin (Vitamin B 12) [Mass/volume] in Serum or Plasma [facility] Creatinine [Mass/vol ume] in Serum or Plasma [facility] End: 12-31-2024 CT Chest W contrast IV [facility] Comment on above: 1 Occurrences starting 12/31/2024 until 12/31/2024 Ecg routine ecg w/le ast 12 lds w/i&r MN ECG ROUTINE ECG W/LEAST 12 LDS W/I&R MN - OFFICE PERFORMED Routine Preop exam for internal medicine Malignant neoplasm of ascending colon Essential hypertension Mixed hyperlipidemia Ordered: 01/10/2025 [facility] Comment on above: Ordered: 01/10/2025 Erythrocyte mean corpuscular volume determination [facility] Ferritin [Mass/volum e] in Serum or Plasma [facility] Glucose [Mass/volume ] in Serum or Plasma [facility] Hematocrit [Volume Fraction] of Blood [facility] Hemoglobin [Mass/vol ume] in Blood [facility] Iron [Mass/mass] in Unspecified specimen [facility] Iron and Iron bindin g capacity panel - Serum or Plasma [facility] Iron saturation [Mas s Fraction] in Serum or Plasma [facility] Leukocytes [#/volume ] in Blood [facility] Magnesium measurement [facility] Mean corpuscular hemoglobin concentration determination [facility] Mean corpuscular hemoglobin determination [facility] Measurement of renal function [facility] End: 12-31-2024 MR Abdomen WO and W contrast IV [facility] Comment on above: 1 Occurrences starting 12/31/2024 until 12/31/2024 Neutrophil count [facility] Neutrophil percent differential count [facility] Patient referral [facility] Work Phone: Platelets [#/volume] in Blood [facility] Potassium measurement [facility] Red blood cell count [facility] Red cell distributio n width determination [facility] Serum chloride measurement [facility] Serum inorganic phosphate measurement [facility] Sodium measurement [facility] SURG PATH REQUEST [facility] Comment on above: Release Upon Ordering for 1 Occurrences starting 01/23/2025, 1 completed Total iron binding capacity measurement [facility] Total protein measurement [facility] Urea nitrogen [Mass/volume] in Serum or Plasma [facility] Immunizations Immunization Date Immunization Notes Care Provider Zachary alfarolashay 06-18-2020 diphtheria, tetanus toxoids and acellular pertussis vaccine, unspecified formulation Shu Chow PA-C Work Phone: [employer]; [employer] 10-02-2017 influenza, injectabl e, quadrivalent, contains preservative Shu Chow PA-C Work Phone: [employer]; [employer] 10-03-2015 ADMINISTRATION OF INFLUENZA VIRUS VACCINE (G0008) Shu Chow PA-C Work Phone: [employer]; [employer] 10-03-2015 influenza, seasonal, injectable Shu Chow PA-C Work Phone: [employer]; [employer]. Comment on above: Site: Deltoid (Left) VIS Given: * Inactivated Influenza (06/08/2015) 10-02-2015 influenza virus vacc ine, unspecified formulation Shu Chow PA-C Work Phone: [employer]; [employer] 04-04-2015 pneumococcal polysaccharide vaccine, 23 valent Shu Chow PA-C Work Phone: [employer]; [employer] Comment on above: Site: Deltoid (Right )VIS Given: * Pneumococcal Polysaccharide (PPSV23) (08/07/09) 10-04-2014 influenza, seasonal, injectable Shu Chow PA-C Work Phone: [facility]. Comment on above: Site: Deltoid (Right )VIS Given: * Influenza, Inactivated ([id number]) 10-04-2014 pneumococcal conjuga te vaccine, 13 valent Shu Chow PA-C Work Phone: [facility]. Comment on above: Site: Deltoid (Left) VIS Given: * Pneumococcal Conjugate (PCV13) (12/29/12) Payers Date Payer Category Payer Medicare [id number] 2025 Self-pay 2024 Medicare (Managed Care) MEDICARE [employer] PPO [id number] 2024 Medicare [id number] 1949 Unknown [id number] 2.16840.1.536459.3.579.2. 651 1949 Unknown [id number] 2.16840.1.464302.3.579.2. 651 1949 Unknown [id number] 2.16.840.1.490965.3.579.2. 651 1949 Unknown [id number] 2.16.840.1.567987.3.579.2. 651 1949 Unknown [id number] 2.16.840.1.461311.3.579.2. 651 1949 Unknown [id number] 2.16.840.1.812618.3.579.2. 651 1949 Unknown [id number] 2.16.840.1.708037.3.579.2. 651 1949 Unknown [id number] 2.16.840.1.354893.3.579.2. 594 1949 Unknown [id number] 2.16.840.1.161334.3.579.2. 594 1949 Unknown [id number] 2.16.840.1.782849.3.579.2. 594 1949 Unknown [id number] 2.16.840.1.793244.3.579.2. 594 1949 Unknown [id number] 2.16.840.1.773418.3.579.2. 594 1949 Unknown [id number] 2.16.840.1.667305.3.579.2. 594 1949 Unknown [id number] 2.16.840.1.271843.3.579.2. 594 1949 Unknown [id number] 2.16.840.1.869894.3.579.2. 594 1949 Unknown [id number] 2.16.840.1.259540.3.579.2. 594 1949 Unknown [id number] 2.16.840.1.092581.3.579.2. 594 1949 Unknown [id number] 2.16.840.1.063867.3.579.2. 594 Medicare [id number] Unknown Unknown [id number] 2.16.840.1.525252.3.579.2. 462 Unknown [id number] 2.16.840.1.837404.3.579.2. 462 Unknown [id number] 2.16.840.1.526531.3.579.2. 462 Unknown [id number] 2.16.840.1.691519.3.579.2. 462 Unknown [id number] 2.16.840.1.244507.3.579.2. 462 Unknown [id number] 2.16.840.1.471398.3.579.2. 462 Unknown [id number] 2.16.840.1.942282.3.579.2. 462 Unknown [id number] 2.16.840.1.174591.3.579.2. 462 Unknown [id number] 2.16.840.1.353960.3.579.2. 462 Unknown [id number] 2.16.840.1.649664.3.579.2. 462 Unknown [id number] 2.16.840.1.141354.3.579.2. 462 Social History Date Type Detail Facility Start: 12-06-2024 End: 02-21-2025 Caffeine Use [facility] Marital status: Marital status: ; . [facility] [employer] Tobacco Use: Tobacco Use: ; F ormer smoker. [facility] Start: 1950 Female [facility] Start: 12-06-2024 End: 03-17-2025 Ex-smoker [facility] Work Phone: End: 12-06-2019 History of tobacco use Current smoker [facility] End: 12-06-2019 History of tobacco use Cigarette Smoker [facility] Start: 12-06-2024 Tobacco use and exposure Smokeless tobacco non-user [facility] Start: 12-06-2024 End: 01-24-2025 Alcoholic beverage intake Current drinker of alcohol (finding) [facility] Start: 12-06-2024 End: 02-21-[address] use [address] [facility] Hospital Adolescent depressio n screening assessment [address] [facility] Start: 12-06-2024 Alcohol Comment wine twice per year [facility] Start: 1950 Sex assigned at Not on file O [facility] Start: 11-22-2024 Sex Female (finding) [facility] Start: 01-01-2025 Gender identity Identifies as female gender (finding) [facility] Start: 01-01-2025 Sexual orientation Heterosexual (fin gustavo) [facility] How often to you hav e a drink containing alcohol? Never [facility] Start: 02-21-2025 Alcoholic beverage intake Ex-drinker (finding) [facility] Start: 03-18-2021 Tobacco Use Tobacco Use [facility] Medical Equipment Procedure Code Equipment Code Equipment Origin al Text Equipment Identifier Dates Insertion, vascular access port ([id number]) Vascular port/catheter [id number] FDA Start: 03-20-2025 Goals Date Patient Goal Desired Activity /State Functional Status Date Assessment Result Facility 01-23-2025 Are you deaf, or do you have serious difficulty hearing No 01/23/2025 3:57 PM Yoav Liang RN No [facility] 01-23-2025 Are you blind, or do you have serious difficulty seeing, even when wearing glasses No 01/23/2025 3:57 PM Yoav Liang RN No [facility] 01-23-2025 Do you have serious difficulty walking or climbing stairs No 01/23/2025 3:57 PM Yoav Liang RN No [facility] 01-23-2025 Do you have difficul ty dressing or bathing No 01/23/2025 3:57 PM Yoav Liang RN No [facility] 01-23-2025 Because of a physica l, mental, or emotional condition, do you have difficulty doing errands alone such as visiting a physician's office or shopping No 01/23/2025 3:57 PM Yoav Liang RN No [facility] Status Date Assessment Result Facility 03-20-2025 Cognitive function Voice/Name [facility] Work Phone: 01-23-2025 Because of a physica l, mental, or emotional condition, do you have serious difficulty concentrating, remembering, or making decisions No 01/23/2025 3:57 PM EDT Yoav Schwartz, RN No 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 Boles at [place] with 2 sessile polypoid lesions were found, at 30 cm was positive for adenocarcinoma, the second lesion was at 50 cm no pathology was found. November 17, 2024 CT scan of the abdomen and pelvis showed a filling defect at the mid descending colon, none specific mesenteric lymph nodes, hypodense foci in the right and left hepatic lobes too small to characterize. Incidental findings were a right renal cyst and a 10 mm hypodense focus in the upper pole of the left kidney. Patient was then referred to [facility] for further management. December 31, 2024 MRI of the abdomen and pelvis: Benign cysts in the liver and kidney, ascending colonic mass with adjacent infiltrative or reactive inflammatory change with a mass abutting the inferior right lobe of liver without dividing the fat plane and right mesenteric lymphadenopathy. December 31, 2024 CT of the chest: 2 nonspecific pulmonary nodules in the left lung base measuring 6 mm and 3 mm. January 23, 2025 robotic right hemicolectomy at [facility] by Dr. Antonio. 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 Mismatch repair protein by IHC showed MLH1 absent/lost, PMS2 absent/lost, MSH2 present/intact, MSH6 present/intact. The presence of hyper methylation of MLH1 promoter in the tumor sample with loss of MLH1 expression by IHC suggests a MLH1 germline mismatch repair gene mutation isnot present. No further testing was indicated. Treatment summary and response: January 23, 2025 robotic right hemicolectomy at [facility]. March 21, 2025 adjuvant modified FOLFOX 6 Interval History The patient is presenting to clinic accompanied by adult daughter, Don for an evaluation anticipating she will begin cycle 4 adjuvant mFOLFOX. Reports she had 4-6 episodes of diarrhea on days 4-6 of each cycle. Admits she usually has some episodes before she decides to use loperamide. However, loperamide is effective. . Appetite fair, PO fluid intake estimated as 2 L of fluid each day, water. No numbness/tingling outside of cold exposure. Denies fever/chills, sweats, headaches, dizziness, mouth sores, rash, abd pain, N/V, swelling of her extremities. [facility] Medical History Anemia Diarrhea due to drug Encounter for chemotherapy management Loss of hearing Wears glasses Post-menopausal Cancer Asthma History of pain when walking Encounter for education Regional lymph node metastasis present Degenerative joint disease Arthritis High cholesterol Migraine headache History of Meniere's disease Former smoker Hx of echocardiogram Hypertension Surgical History History of hysteroscopy History of colectomy History of total right knee replacement Hx of colonoscopy Family History Father Heart disease Aunt Breast cancer Social History Smoking Status: Former smoker Tobacco: How many years used: 5 alcohol intake: never substance use type: does not use ROS ROS Narrative Negative except as documented in the interval HPI Intake Vital Signs 04/18/25 09:29 05/02/25 08:03 Height 5 ft 2 in 5 ft 2 in Weight: 185 lb 180 lb 7 oz BMI 33.8 33.0 BP 129/83 H 118/76 Blood Pressure Location Lt brachial Rt brachial Position Sitting Sitting Respiration 16 18 Pulse 69 77 Pulse Source Monitor Monitor Temp 98.5 F 97.7 F L Temperature Source Temporal Artery Temporal Artery Pulse Oximetry (%) 96 97 Oxygen Delivery Method room air room air Intake Is patient in pain?: No Allergies No Known Allergies Allergy (Verified 05/02/25 08:04) Medications ?Medication ?Instructions ?Recorded ?Confirmed ?Type lisinopril 20 1 tab PO DAILY 03/18/2111/26 History mg-hydrochlorothiazide 25 mg tablet metoprolol tartrate 50 mg tablet 50 mg PO DAILY 05/02/25 History multivitamin 1 tab PO QDAY 03/06/2505/02 History turmeric 400 mg capsule 400 mg PO DAILY 03/06/2511/26 History lidocaine-prilocaine 2.5 %-2.5 % 1 applic topical ONCE PRN port 03/15/25 05/02/25 Rx topical cream access 30 days #30 grams ondansetron 8 mg disintegrating 8 mg PO Q8H PRN nausea and 03/15/25 05/02/25 Rx tablet vomiting #30 tabs prochlorperazine maleate 10 mg 10 mg PO Q6H PRN nausea and 03/15/25 05/02/25 Rx tablet vomiting #30 tabs oxycodone-acetaminophen 5 mg-325 1 tab PO Q8H PRN pain 3 days #5 03/20/25 Rx mg tablet (Percocet) tabs Have you fallen in the past year?: No Central Venous Access Central Venous Access: Yes Port/PICC: Port Laboratory Tests 05/02/25 07:50 WBC 4.2 L Hgb 11.9 L Hct 36.1 L Plt Count 197 Absolute Neuts (auto) 1.9 L Laboratory Tests 05/02/25 07:50 Sodium 138 Potassium 3.3 Chloride 103 Carbon Dioxide 22.3 BUN 17 Creatinine 0.76 Glucose 153 H Calcium 9.1 Magnesium 2.1 Total Bilirubin 0.31 AST 48 H ALT 53 H Alkaline Phosphatase 82 Albumin 3.4 Exam Physical Exam Narrative ECOG 0-1 Const alert, oriented x3 and no apparent distress General Appearance: comfortable Nutritional Appearance: overweight HEENT Face and Sinus: normal facial exam Mouth: oral and palatal mucosa normal Eyes General Eye: normal appearance of both eyes Neck no lymphadenopathy and no JVD Chest Chest: vascular access Resp clear to auscultation bilaterally Cardio regular rate, regular rhythm, S1 normal heart sound and S2 normal heart sound Jugular Venous Distention: Negative for JVD GI normal to inspection, nondistended, normoactive bowel sounds and soft to palpation Back/Spine no CVA tenderness and no thoracic nor lumbar tenderness Extremity no clubbing, cyanosis or edema Skin no rashes or lesions noted Neuro oriented x3, CN's II-XII intact bilaterally, moves all extremities and no focal motor deficits Speech: speech normal Gait (Neuro): normal gait Psych mental status grossly normal Coding Level of Care Code Off vis,est,level 4 Exam Problem Focused Diagnoses Malignant neoplasm of ascending colon C18.2 Colon location: ascending Regional lymph node metastasis present C77.9 Lung nodules R91.8 Anemia D64.9 Diarrhea due to drug K52.1 Encounter for chemotherapy management Z51.11 Assessment and Plan Assessment and Plan (1) Colon cancer: Status: Acute Qualifiers: Colon location: ascending Qualified Code(s): C18.2 - Malignant neoplasmof ascending colon (2) Regional lymph node metastasis present: Status: Acute (3) Lung nodules: Status: Acute (4) Anemia: Status: Acute (5) Diarrhea due to drug: Status: Acute (6) Encounter for chemotherapy management: Status: Acute Plan 74-year-old female with high risk stage III colon cancer (T3, N2, M0), status post robotic assisted right hemicolectomy December 2024 at [facility]. There are 2 subcentimeter too small to characterize lung nodules that will be followedup. Started adjuvant modified FOLFOX March 2025 with diarrhea being main side effect experienced Chronic comorbid conditions: Hypertension, dyslipidemia, DJD, obesity and history of M?ni?re's disease. Recommendations: Based on NCCN guidelines and up-to-date review of treatment of stage III high risk colon cancer with intent to cure advise: 1. Continue 6 months adjuvant modified FOLFOX 6. Proceed with cycle 4 today. Declining ANC observed. 2. 2 lung nodules will be followed up with CT of the chest, abdomen and pelvis at the end of treatment. 3. Will follow CEA to normalization, a preoperative CEA from outside was not found. CEA pending. 4. Anemia of cancer and chemotherapy- grade 1. continue to monitor. Iron studies are pending. 5. Diarrhea- grade 1. Counseled on aggressive use of loperamide. Encouraged BRAT diet/electrolyte rich solutions during times of GI losses RTO on 05/16/25 for ?c5 FOLFOX. Clinical Quality Measures Falls Risk Screening/Assistive Devices Have you fallen in the past year?: No 05/02/25922 <Electronically signed by Alyssa HAWKINS> Date _ Alyssa HAWKINS Cosigner Signature: Date (if applicable) CC: ~ [employer] Work Phone: [phone]) 660-715206-17-2025 Progress [facility] [address] [address] OFFICE VISIT Date of Service: 04/18/2529 MR#: [id number] Acct: [id number] Name: JESSIKA CARRILLO Rep #: [id number] : 1950 From: New peterson MD Age/Sex: 74/F Location: [facility] Status: Signed HPI Subjective Date of Service 04/18/25 Chief Complaint Colon cancer on treatment History of Present Illness 74-year-old female with no family of colon cancer had screening colonoscopy August 17, 2024 by at [place] with 2 sessile polypoid lesions were found, at 30 cm was positive for adenocarcinoma, the second lesion was at 50 cm no pathology was found. November 17, 2024 CT scan of the abdomen and pelvis showed a filling defect at the mid descending colon, none specific mesenteric lymph nodes, hypodense foci in the right and left hepatic lobes too small to characterize. Incidental findings were a right renal cyst and a 10 mm hypodense focus in the upper pole of the left kidney. Patient was then referred to [facility] for further management. December 31, 2024 MRI of the abdomen and pelvis: Benign cysts in the liver and kidney, ascending colonic mass with adjacent infiltrative or reactive inflammatory change with a mass abutting the inferior right lobe of liver without dividing the fat plane and right mesenteric lymphadenopathy. December 31, 2024 CT of the chest: 2 nonspecific pulmonary nodules in the left lung base measuring 6 mmand 3 mm. January 23, 2025 robotic right hemicolectomy at [facility] by Dr. Antonio. 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 Mismatch repair protein by IHC showed MLH1 absent/lost, PMS2 absent/lost, MSH2 present/intact, MSH6 present/intact. The presence of hyper methylation of MLH1 promoter in the tumor sample with loss of MLH1 expression by IHC suggests a MLH1 germline mismatch repair gene mutation isnot present. No further testing was indicated. Treatment summary and response: January 23, 2025 robotic right hemicolectomy at [facility]. March 21, 2025 adjuvant modified FOLFOX 6 PFSH Medical History (Updated 04/18/25 @ 09:[address] [place] MD) Anemia Diarrhea due to drug Encounter for chemotherapy management Loss of hearing Wears glasses Post-menopausal Cancer Asthma History of pain when walking Encounter for education Regional lymph node metastasis present Degenerative joint disease Arthritis High cholesterol Migraine headache History of Meniere's disease Former smoker Hx of echocardiogram Hypertension Surgical History History of hysteroscopy History of colectomy History of total right knee replacement Hx of colonoscopy Family History Father Heart disease Aunt Breast cancer Social History (Reviewed 04/18/25 @ 09:32 by [place] Amos Smoking Status: Former smoker Tobacco: How many years used: 5 alcohol intake: never substance use type: does not use ROS Constitutional Constitutional: Reports systems reviewed and no addt'l complaints, except as documented and other Details: able to do ADL independently ; Denies fatigue, fever(s) or weight loss Eyes Eyes: Reports systems reviewed and no addt'l complaints, except as documented ENT HEENT: Reports systems reviewed and no addt'l complaints, except as documented; Denies mouth lesions Cardiovascular Cardiovascular: Reports systems reviewed and no addt'l complaints, except as documented; Denies chest pain with activity or edema Respiratory/Chest Respiratory/Chest: Reports systems reviewed and no addt'l complaints, except as documented; Denies cough or dyspnea Gastrointestinal Gastrointestinal: Reports systems reviewed and no addt'l complaints, except as documented, diarrhea, nausea and other Details: Infrequent episodes of nausea, diarrhea is manageable with diet modification and Imodium ; Denies dysphagia, hematochezia or melena Genitourinary Genitourinary: Reports systems reviewed and no addt'l complaints, except as documented Musculoskeletal Musculoskeletal: Reports systems reviewed and no addt'l complaints, except as documented, arthralgias, back pain and other Details: Chronic ; Denies difficulty walking Integumentary Integumentary: Reports systems reviewed and no addt'l complaints, except as documented; Denies new lesions Neurologic Neurologic: Reports systems reviewed and no addt'l complaints, except as documented; Denies focal weakness or paresthesias Psychiatric Psychiatric: Reports systems reviewed and no addt'l complaints, except as documented Endocrine Endocrinology: Reports systems reviewed and no addt'l complaints, except as documented and cold intolerance Hematologic/Lymphatic Hematologic/Lymphatic: Reports systems reviewed and no addt'l complaints, exceptas documented Intake Vital Signs 03/15/25 08:10 04/04/25 08:16 04/18/25 09:29 Height 5 ft 2 in 5 ft 2 in 5 ft 2 in Weight: 84.935 kg 83.915 kg BMI 34.2 33.8 BP 133/83 H 129/83 H Blood Pressure Location Rt brachial Lt brachial Position Sitting Sitting Respiration 16 16 Pulse 64 69 Pulse Source Monitor Monitor Temp 98.2 F 98.5 F Temperature Source Temporal Artery Temporal Artery Pulse Oximetry (%) 97 96 Oxygen Delivery Method room air room air Intake Inter Com Servicer Required: No Accompanied by: Daughter Is patient in pain?: No Allergies No Known Allergies Allergy (Verified 04/18/25 09:31) Medications ?Medication ?Instructions ?Recorded ?Confirmed ?Type lisinopril 20 1 tab PO DAILY 03/18/2104/02 History mg-hydrochlorothiazide 25 mg tablet metoprolol tartrate 50 mg tablet 50 mg PO DAILY 04/18/25 History multivitamin 1 tab PO QDAY 03/06/2504/18 History turmeric 400 mg capsule 400 mg PO DAILY 03/06/25 History lidocaine-prilocaine 2.5 %-2.5 % 1 applic topical ONCE PRN port 03/15/25 04/18/25 Rx topical cream access 30 days #30 grams ondansetron 8 mg disintegrating 8 mg PO Q8H PRN nausea and 03/15/25 04/18/25 Rx tablet vomiting #30 tabs prochlorperazine maleate 10 mg 10 mg PO Q6H PRN nausea and 03/15/25 04/18/25 Rx tablet vomiting #30 tabs oxycodone-acetaminophen 5 mg-325 1 tab PO Q8H PRN pain 3 days #5 03/20/25 04/18/25 Rx mg tablet (Percocet) tabs Have you fallen in the past year?: No Central Venous Access Central Venous Access: Yes Port/PICC: Port (left chest) Laboratory Tests 03/09/25 03/21/25 10:15 07:56 Carcinoembryonic Ag 6.3 H 5.5 H Exam Physical Exam Narrative ECOG 0-1 Const alert, oriented x3 and no apparent distress General Appearance: cooperative and comfortable Nutritional Appearance: overweight HEENT Face and Sinus: normal facial exam Mouth: oral and palatal mucosa normal Eyes General Eye: normal appearance of both eyes Neck no lymphadenopathy and no JVD Chest Chest: vascular access Resp clear to auscultation bilaterally Cardio regular rate and regular rhythm Jugular Venous Distention: Negative for JVD GI soft to palpation, non-tender and non-distended Back/Spine no thoracic nor lumbar tenderness Extremity no clubbing, cyanosis or edema Skin no rashes or lesions noted Neuro oriented x3, CN's II-XII intact bilaterally, moves all extremities and no focal motor deficits Coordination / Balance: [id number] test normal Speech: speech normal Gait (Neuro): normal gait Psych mental status grossly normal Coding Level of Care Code Off vis,est,level 4 Exam Problem Focused Diagnoses Malignant neoplasm of ascending colon C18.2 Colon location: ascending Regional lymph node metastasis present C77.9 Lung nodules R91.8 Anemia D64.9 Diarrhea due to drug K52.1 Assessment and Plan Assessment and Plan (1) Colon cancer: Status: Acute Qualifiers: Colon location: ascending Qualified Code(s): C18.2 - Malignant neoplasmof ascending colon (2) Regional lymph node metastasis present: Status: Acute (3) Lung nodules: Status: Acute (4) Anemia: Status: Acute (5) Diarrhea due to drug: Status: Acute Plan 74-year-old female with high risk stage III colon cancer (T3, N2, M0), status post robotic assistedright hemicolectomy December 2024 at [facility]. There are 2 subcentimeter too small to characterize lung nodules that will be followedup. Started adjuvant modified FOLFOX March 2025 with diarrhea being main side effect experienced Chronic comorbid conditions: Hypertension, dyslipidemia, DJD, obesity and history of M?ni?re's disease. Recommendations: Based on NCCN guidelines and up-to-date review of treatment of stage III high riskcolon cancer with intent to cure advise: 1. Continue 6 months adjuvant modified FOLFOX 6. 2. Supportive treatment with antiemetics and Imodium 3. 2 lung nodules will be followed up with CT of the chest, abdomen and pelvis at the end of treatment. 4. Will follow CEA to normalization, a preoperative CEA from outside was not found. 5. Anemia of cancer and chemotherapy, will evaluate for any nutritional deficiencies of iron or B12 Patient was seen with her daughter, impression and plan discussed. [place] MD Inspector [employer], [facility] Divisions of Medical Oncology & Hematology Department of Internal Medicine [place] [phone] This note was generated using a voice recognition system software. Although itwas reviewed by the author prior to finalization, it may still contain incorrectwords, spelling, and punctuation that were not noted when reviewing prior to saving. If a clinically significant typo or inaccurately typed phrase is noted, please notify the author. Clinical Quality Measures Falls Risk Screening/Assistive Devices Have you fallen in the past year?: No 04/18/25 0954 [email or web address] PIRES> Date _ [place] MD Cosigner Signature: Date (if applicable) CC: ~ [facility]06-17-2025 Progress note Author [place] [facility] Note Date/Time April 18, 2025 9:54 am [facility] [address] [address] OFFICE VISIT Date of Service: 04/18/25 0929 MR#: [id number] Acct: [id number] Name: JESSIKA CARRILLO Rep #: [id number] : 1950 From: New peterson MD Age/Sex: 74/F Location: [facility] Status: Signed HPI Subjective Date of Service 04/18/25 Chief Complaint Colon cancer on treatment History of Present Illness 74-year-old female with no family of colon cancer had screening colonoscopy August 17, [address] Boles at [place] with 2 sessile polypoid lesions were found, at 30 cm was positive for adenocarcinoma, the second lesion was at 50 cm no pathology was found. November 17, 2024 CT scan of the abdomen and pelvis showed a filling defect at the mid descending colon, none specific mesenteric lymph nodes, hypodense foci in the right and left hepatic lobes too small to characterize. Incidental findings were a right renal cyst and a 10 mm hypodense focus in the upper pole of the left kidney. Patient was then referred to [facility] for further management. December 31, 2024 MRI of the abdomen and pelvis: Benign cysts in the liver and kidney, ascending colonic mass with adjacent infiltrative or reactive inflammatory change with a mass abutting the inferior right lobe of liver without dividing the fat plane and right mesenteric lymphadenopathy. December 31, 2024 CT of the chest: 2 nonspecific pulmonary nodules in the left lung base measuring 6 mm and 3 mm. January 23, 2025 robotic right hemicolectomy at [facility] by Dr. Antonio. 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 Mismatch repair protein by IHC showed MLH1 absent/lost, PMS2 absent/lost, MSH2 present/intact, MSH6 present/intact. The presence of hyper methylation of MLH1 promoter in the tumor sample with loss of MLH1 expression by IHC suggests a MLH1 germline mismatch repair gene mutation isnot present. No further testing was indicated. Treatment summary and response: January 23, 2025 robotic right hemicolectomy at [facility]. March 21, 2025 adjuvant modified FOLFOX 6 PFSH Medical History (Updated 04/18/25 @ 09:[address] [place] MD) Anemia Diarrhea due to drug Encounter for chemotherapy management Loss of hearing Wears glasses Post-menopausal Cancer Asthma History of pain when walking Encounter for education Regional lymph node metastasis present Degenerative joint disease Arthritis High cholesterol Migraine headache History of Meniere's disease Former smoker Hx of echocardiogram Hypertension Surgical History History of hysteroscopy History of colectomy History of total right knee replacement Hx of colonoscopy Family History Father Heart disease Aunt Breast cancer Social History Smoking Status: Former smoker Tobacco: How many years used: 5 alcohol intake: never substance use type: does not use ROS Constitutional Constitutional: Reports systems reviewed and no addt'l complaints, except as documented and other Details: able to do ADL independently ; Denies fatigue, fever(s) or weight loss Eyes Eyes: Reports systems reviewed and no addt'l complaints, except as documented ENT HEENT: Reports systems reviewed and no addt'l complaints, except as documented; Denies mouth lesions Cardiovascular Cardiovascular: Reports systems reviewed and no addt'l complaints, except as documented; Denies chest pain with activity or edema Respiratory/Chest Respiratory/Chest: Reports systems reviewed and no addt'l complaints, except as documented; Denies cough or dyspnea Gastrointestinal Gastrointestinal: Reports systems reviewed and no addt'l complaints, except as documented, diarrhea, nausea and other Details: Infrequent episodes of nausea, diarrhea is manageable with diet modification and Imodium ; Denies dysphagia, hematochezia or melena Genitourinary Genitourinary: Reports systems reviewed and no addt'l complaints, except as documented Musculoskeletal Musculoskeletal: Reports systems reviewed and no addt'l complaints, except as documented, arthralgias, back pain and other Details: Chronic ; Denies difficulty walking Integumentary Integumentary: Reports systems reviewed and no addt'l complaints, except as documented; Denies new lesions Neurologic Neurologic: Reports systems reviewed and no addt'l complaints, except as documented; Denies focal weakness or paresthesias Psychiatric Psychiatric: Reports systems reviewed and no addt'l complaints, except as documented Endocrine Endocrinology: Reports systems reviewed and no addt'l complaints, except as documented and cold intolerance Hematologic/Lymphatic Hematologic/Lymphatic: Reports systems reviewed and no addt'l complaints, exceptas documented Intake Vital Signs 03/15/25 08:10 04/04/25 08:16 04/18/25 09:29 Height 5 ft 2 in 5 ft 2 in 5 ft 2 in Weight: 84.935 kg 83.915 kg BMI 34.2 33.8 BP 133/83 H 129/83 H Blood Pressure Location Rt brachial Lt brachial Position Sitting Sitting Respiration 16 16 Pulse 64 69 Pulse Source Monitor Monitor Temp 98.2 F 98.5 F Temperature Source Temporal Artery Temporal Artery Pulse Oximetry (%) 97 96 Oxygen Delivery Method room air room air Intake Inter Com Servicer Required: No Accompanied by: Daughter Is patient in pain?: No Allergies No Known Allergies Allergy (Verified 04/18/25 09:31) Medications ?Medication ?Instructions ?Recorded ?Confirmed ?Type lisinopril 20 1 tab PO DAILY 03/18/2104/02 History mg-hydrochlorothiazide 25 mg tablet metoprolol tartrate 50 mg tablet 50 mg PO DAILY 04/18/25 History multivitamin 1 tab PO QDAY 03/06/2504/18 History turmeric 400 mg capsule 400 mg PO DAILY 03/06/25 History lidocaine-prilocaine 2.5 %-2.5 % 1 applic topical ONCE PRN port 03/15/25 04/18/25 Rx topical cream access 30 days #30 grams ondansetron 8 mg disintegrating 8 mg PO Q8H PRN nausea and 03/15/25 04/18/25 Rx tablet vomiting #30 tabs prochlorperazine maleate 10 mg 10 mg PO Q6H PRN nausea and 03/15/25 04/18/25 Rx tablet vomiting #30 tabs oxycodone-acetaminophen 5 mg-325 1 tab PO Q8H PRN pain 3 days #5 03/20/25 04/18/25 Rx mg tablet (Percocet) tabs Have you fallen in the past year?: No Central Venous Access Central Venous Access: Yes Port/PICC: Port (left chest) Laboratory Tests 03/09/25 03/21/25 10:15 07:56 Carcinoembryonic Ag 6.3 H 5.5 H Exam Physical Exam Narrative ECOG 0-1 Const alert, oriented x3 and no apparent distress General Appearance: cooperative and comfortable Nutritional Appearance: overweight HEENT Face and Sinus: normal facial exam Mouth: oral and palatal mucosa normal Eyes General Eye: normal appearance of both eyes Neck no lymphadenopathy and no JVD Chest Chest: vascular access Resp clear to auscultation bilaterally Cardio regular rate and regular rhythm Jugular Venous Distention: Negative for JVD GI soft to palpation, non-tender and non-distended Back/Spine no thoracic nor lumbar tenderness Extremity no clubbing, cyanosis or edema Skin no rashes or lesions noted Neuro oriented x3, CN's II-XII intact bilaterally, moves all extremities and no focal motor deficits Coordination / Balance: [id number] test normal Speech: speech normal Gait (Neuro): normal gait Psych mental status grossly normal Coding Level of Care Code Off vis,est,level 4 Exam Problem Focused Diagnoses Malignant neoplasm of ascending colon C18.2 Colon location: ascending Regional lymph node metastasis present C77.9 Lung nodules R91.8 Anemia D64.9 Diarrhea due to drug K52.1 Assessment and Plan Assessment and Plan (1) Colon cancer: Status: Acute Qualifiers: Colon location: ascending Qualified Code(s): C18.2 - Malignant neoplasmof ascending colon (2) Regional lymph node metastasis present: Status: Acute (3) Lung nodules: Status: Acute (4) Anemia: Status: Acute (5) Diarrhea due to drug: Status: Acute Plan 74-year-old female with high risk stage III colon cancer (T3, N2, M0), status post robotic assisted right hemicolectomy December 2024 at [facility]. There are 2 subcentimeter too small to characterize lung nodules that will be followedup. Started adjuvant modified FOLFOX March 2025 with diarrhea being main side effect experienced Chronic comorbid conditions: Hypertension, dyslipidemia, DJD, obesity and history of M?ni?re's disease. Recommendations: Based on NCCN guidelines and up-to-date review of treatment of stage III high risk colon cancer with intent to cure advise: 1. Continue 6 months adjuvant modified FOLFOX 6. 2. Supportive treatment with antiemetics and Imodium 3. 2 lung nodules will be followed up with CT of the chest, abdomen and pelvis at the end of treatment. 4. Will follow CEA to normalization, a preoperative CEA from outside was not found. 5. Anemia of cancer and chemotherapy, will evaluate for any nutritional deficiencies of iron or B12 Patient was seen with her daughter, impression and plan discussed. [place] MD Inspector Eyeglass Frames, [facility] Divisions of Medical Oncology & Hematology Department of Internal Medicine [place] [phone] This note was generated using a voice recognition system software. Although itwas reviewed by the author prior to finalization, it may still contain incorrectwords, spelling, and punctuation that were not noted when reviewing prior to saving. If a clinically significant typo or inaccurately typed phrase is noted, please notify the author. Clinical Quality Measures Falls Risk Screening/Assistive Devices Have you fallen in the past year?: No 04/18/25 0954 <Electronically signed by New barroso MD> Date _ [place] MD Cosigner Signature: Date (if applicable) CC: ~ [employer] Work Phone: 1(584) 822-732205-20-2025 Progress [facility] [address] [place] [address] OFFICE VISIT Date of Service: 03/21/25 0800 MR#: [id number] Acct: [id number] Name: JESSIKA CARRILLO Rep #: [id number] : 1950 From: Alyssa Zavala ch, NP SECURITY INFRASTRUCTURE ENGINEER-C Age/Sex: 74/F Location: [facility] Status: Signed HPI Subjective Date of Service 03/21/25 Chief Complaint Colon cancer History of Present Illness 74-year-old female with no family of colon cancer had screening colonoscopy August 17, 2024 by at [place] with 2 sessile polypoid lesions were found, at 30 cm was positive for adenocarcinoma, the second lesion was at 50 cm no pathology was found. November 17, 2024 CT scan of the abdomen and pelvis showed a filling defect at the mid descending colon, none specific mesenteric lymph nodes, hypodense foci in the right and left hepatic lobes too small to characterize. Incidental findings were a right renal cyst and a 10 mm hypodense focus in the upper pole of the left kidney. Patient was then referred to [facility] for further management. December 31, 2024 MRI of the abdomen and pelvis: Benign cysts in the liver and kidney, ascending colonic mass with adjacent infiltrative or reactive inflammatory change with a mass abutting the inferior right lobe of liver without dividing the fat plane and right mesenteric lymphadenopathy. December 31, 2024 CT of the chest: 2 nonspecific pulmonary nodules in the left lung base measuring 6 mmand 3 mm. January 23, 2025 robotic right hemicolectomy at [facility] by Dr. Antonio. 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 Mismatch repair protein by IHC showed MLH1 absent/lost, PMS2 absent/lost, MSH2 present/intact, MSH6 present/intact. The presence of hyper methylation of MLH1 promoter in the tumor sample with loss of MLH1 expression by IHC suggests a MLH1 germline mismatch repair gene mutation isnot present. No further testing was indicated. Treatment summary and response: January 23, 2025 robotic right hemicolectomy at [facility]. March 21, 2025- mFOLFOX Interval History The patient is presenting to clinic accompanied by adult daughter, Don for an evaluation anticipating she will begin adjuvant mFOLFOX. No diarrhea. LBM 03/21/25. Reports active lifestyle and good support system by way of daughters. [facility] Medical History (Updated 03/21/25 @ 08:45 by Alyssa Lynch SECURITY INFRASTRUCTURE ENGINEER, SECURITY INFRASTRUCTURE ENGINEER-C) Encounter for chemotherapy management Loss of hearing Wears glasses Post-menopausal Cancer Asthma History of pain when walking Encounter for education Regional lymph node metastasis present Degenerative joint disease Arthritis High cholesterol Migraine headache History of Meniere's disease Former smoker Hx of echocardiogram Hypertension Surgical History History of hysteroscopy History of colectomy History of total right knee replacement Hx of colonoscopy Family History Father Heart disease Aunt Breast cancer Social History Smoking Status: Former smoker Tobacco: How many years used: 5 alcohol intake: never substance use type: does not use ROS ROS Narrative Negative except as documented in the interval HPI Intake Vital Signs 03/15/25 08:10 03/21/25 08:02 03/21/25 08:05 Height 5 ft 2 in 5 ft 2 in 5 ft 2 in Weight: 190 lb BMI 34.7 BP 158/88 H Blood Pressure Location Lt brachial Position Sitting Respiration 16 Pulse 60 Pulse Source Monitor Temp 98.2 F Temperature Source Temporal Artery Pulse Oximetry (%) 98 Oxygen Delivery Method room air Intake Is patient in pain?: No Allergies No Known Allergies Allergy (Verified 03/21/25 08:04) Medications ?Medication ?Instructions ?Recorded ?Confirmed ?Type lisinopril 20 1 tab PO DAILY 03/18/2103/03 History mg-hydrochlorothiazide 25 mg tablet metoprolol tartrate 50 mg tablet 50 mg PO DAILY 03/21/25 History multivitamin 1 tab PO QDAY 03/06/2503/21 History turmeric 400 mg capsule 400 mg PO DAILY 03/06/25 History lidocaine-prilocaine 2.5 %-2.5 % 1 applic topical ONCE PRN port 03/15/25 03/21/25 Rx topical cream access 30 days #30 grams ondansetron 8 mg disintegrating 8 mg PO Q8H PRN nausea and 03/15/25 03/21/25 Rx tablet vomiting #30 tabs prochlorperazine maleate 10 mg 10 mg PO Q6H PRN nausea and 03/15/25 03/21/25 Rx tablet vomiting #30 tabs oxycodone-acetaminophen 5 mg-325 1 tab PO Q8H PRN pain 3 days #5 03/20/25 03/21/25 Rx mg tablet (Percocet) tabs Have you fallen in the past year?: No Central Venous Access Central Venous Access: Yes Port/PICC: Port (left upper chest ) Laboratory Tests 03/21/25 07:56 WBC 7.0 Hgb 12.2 Hct 37.7 Plt Count 326 Absolute Neuts (auto) 4.1 Exam Physical Exam Narrative ECOG 0-1 Const alert, oriented x3 and no apparent distress General Appearance: comfortable Nutritional Appearance: overweight HEENT Face and Sinus: normal facial exam Mouth: oral and palatal mucosa normal Eyes General Eye: normal appearance of both eyes Neck no lymphadenopathy and no JVD Chest Chest: vascular access Resp clear to auscultation bilaterally Cardio regular rate, regular rhythm, S1 normal heart sound and S2 normal heart sound Jugular Venous Distention: Negative for JVD GI normal to inspection, nondistended, normoactive bowel sounds and soft to palpation Back/Spine no CVA tenderness and no thoracic nor lumbar tenderness Extremity no clubbing, cyanosis or edema Skin no rashes or lesions noted Neuro oriented x3, CN's II-XII intact bilaterally, moves all extremities and no focal motor deficits Speech: speech normal Gait (Neuro): normal gait Psych mental status grossly normal Coding Level of Care Code Off vis,est,level 4 Exam Problem Focused Diagnoses Malignant neoplasm of ascending colon C18.2 Colon location: ascending Regional lymph node metastasis present C77.9 Lung nodules R91.8 Encounter for chemotherapy management Z51.11 Assessment and Plan Assessment and Plan (1) Colon cancer: Status: Acute Qualifiers: Colon location: ascending Qualified Code(s): C18.2 - Malignant neoplasmof ascending colon (2) Regional lymph node metastasis present: Status: Acute (3) Lung nodules: Status: Acute (4) Encounter for chemotherapy management: Status: Acute Orders: Orders Carcinoembryonic Antigen Today C18.2 - Malignant neoplasm of ascending colon Plan 74-year-old female with high risk stage III colon cancer (T3, N2, M0), status post robotic assistedright hemicolectomy December 2024 at [facility]. There are 2 subcentimeter too small to characterize lung nodules that will be followedup. Chronic comorbid conditions: Hypertension, dyslipidemia, DJD, obesity and history of M?ni?re's disease. Recommendations: Based on NCCN guidelines and up-to-date review of treatment of stage III high riskcolon cancer with intent to cure advise: 1. 6 months adjuvant modified FOLFOX 6. The patient's questions were addressedto her satisfaction and she is agreeable to proceed with cycle 1 today. 2. Preoperative CEA was requested. 3. Two lung nodules will be followed up with CT of the chest, abdomen and pelvisat the end of treatment. Clinical Quality Measures Falls Risk Screening/Assistive Devices Have you fallen in the past year?: No 03/21/25 0848 h SECURITY INFRASTRUCTURE ENGINEER SECURITY INFRASTRUCTURE ENGINEER-C> Date _ Alyssa Lynch SECURITY INFRASTRUCTURE ENGINEER SECURITY INFRASTRUCTURE ENGINEER-C Cosigner Signature: Date (if applicable) CC: ~ [facility]05-20-2025 Progress note Author Alyssa Lynch [facility] Note Date/Time March 21, 2025 8:48a m [facility] [address] [place] [address] OFFICE VISIT Date of Service: 03/21/25 0800 MR#: [id number] Acct: [id number] Name: JESSIKA CARRILLO Rep #: [id number] : 1950 From: Alyssa Zavala anita SECURITY INFRASTRUCTURE ENGINEER SECURITY INFRASTRUCTURE ENGINEER-C Age/Sex: 74/F Location: [facility] Status: Signed HPI Subjective Date of Service 03/21/25 Chief Complaint Colon cancer History of Present Illness 74-year-old female with no family of colon cancer had screening colonoscopy August 17, [address] Boles at [place] with 2 sessile polypoid lesions were found, at 30 cm was positive for adenocarcinoma, the second lesion was at 50 cm no pathology was found. November 17, 2024 CT scan of the abdomen and pelvis showed a filling defect at the mid descending colon, none specific mesenteric lymph nodes, hypodense foci in the right and left hepatic lobes too small to characterize. Incidental findings were a right renal cyst and a 10 mm hypodense focus in the upper pole of the left kidney. Patient was then referred to [facility] for further management. December 31, 2024 MRI of the abdomen and pelvis: Benign cysts in the liver and kidney, ascending colonic mass with adjacent infiltrative or reactive inflammatory change with a mass abutting the inferior right lobe of liver without dividing the fat plane and right mesenteric lymphadenopathy. December 31, 2024 CT of the chest: 2 nonspecific pulmonary nodules in the left lung base measuring 6 mm and 3 mm. January 23, 2025 robotic right hemicolectomy at [facility] by Dr. Antonio. 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 Mismatch repair protein by IHC showed MLH1 absent/lost, PMS2 absent/lost, MSH2 present/intact, MSH6 present/intact. The presence of hyper methylation of MLH1 promoter in the tumor sample with loss of MLH1 expression by IHC suggests a MLH1 germline mismatch repair gene mutation isnot present. No further testing was indicated. Treatment summary and response: January 23, 2025 robotic right hemicolectomy at [facility]. March 21, 2025- mFOLFOX Interval History The patient is presenting to clinic accompanied by adult daughter, Don for an evaluation anticipating she will begin adjuvant mFOLFOX. No diarrhea. LBM 03/21/25. Reports active lifestyle and good support system by way of daughters. [facility] Medical History (Updated 03/21/25 @ 08:45 by Alyssa Lynch SECURITY INFRASTRUCTURE ENGINEER, SECURITY INFRASTRUCTURE ENGINEER-C) Encounter for chemotherapy management Loss of hearing Wears glasses Post-menopausal Cancer Asthma History of pain when walking Encounter for education Regional lymph node metastasis present Degenerative joint disease Arthritis High cholesterol Migraine headache History of Meniere's disease Former smoker Hx of echocardiogram Hypertension Surgical History History of hysteroscopy History of colectomy History of total right knee replacement Hx of colonoscopy Family History Father Heart disease Aunt Breast cancer Social History Smoking Status: Former smoker Tobacco: How many years used: 5 alcohol intake: never substance use type: does not use ROS ROS Narrative Negative except as documented in the interval HPI Intake Vital Signs 03/15/25 08:10 03/21/25 08:02 03/21/25 08:05 Height 5 ft 2 in 5 ft 2 in 5 ft 2 in Weight: 190 lb BMI 34.7 BP 158/88 H Blood Pressure Location Lt brachial Position Sitting Respiration 16 Pulse 60 Pulse Source Monitor Temp 98.2 F Temperature Source Temporal Artery Pulse Oximetry (%) 98 Oxygen Delivery Method room air Intake Is patient in pain?: No Allergies No Known Allergies Allergy (Verified 03/21/25 08:04) Medications ?Medication ?Instructions ?Recorded ?Confirmed ?Type lisinopril 20 1 tab PO DAILY 03/18/21 05/2 0 History mg-hydrochlorothiazide 25 mg tablet metoprolol tartrate 50 mg tablet 50 mg PO DAILY 03/21/25 History multivitamin 1 tab PO QDAY 03/06/2503/21 History turmeric 400 mg capsule 400 mg PO DAILY 03/06/25 History lidocaine-prilocaine 2.5 %-2.5 % 1 applic topical ONCE PRN port 03/15/25 03/21/25 Rx topical cream access 30 days #30 grams ondansetron 8 mg disintegrating 8 mg PO Q8H PRN nausea and 03/15/25 03/21/25 Rx tablet vomiting #30 tabs prochlorperazine maleate 10 mg 10 mg PO Q6H PRN nausea and 03/15/25 03/21/25 Rx tablet vomiting #30 tabs oxycodone-acetaminophen 5 mg-325 1 tab PO Q8H PRN pain 3 days #5 03/20/25 03/21/25 Rx mg tablet (Percocet) tabs Have you fallen in the past year?: No Central Venous Access Central Venous Access: Yes Port/PICC: Port (left upper chest ) Laboratory Tests 03/21/25 07:56 WBC 7.0 Hgb 12.2 Hct 37.7 Plt Count 326 Absolute Neuts (auto) 4.1 Exam Physical Exam Narrative ECOG 0-1 Const alert, oriented x3 and no apparent distress General Appearance: comfortable Nutritional Appearance: overweight HEENT Face and Sinus: normal facial exam Mouth: oral and palatal mucosa normal Eyes General Eye: normal appearance of both eyes Neck no lymphadenopathy and no JVD Chest Chest: vascular access Resp clear to auscultation bilaterally Cardio regular rate, regular rhythm, S1 normal heart sound and S2 normal heart sound Jugular Venous Distention: Negative for JVD GI normal to inspection, nondistended, normoactive bowel sounds and soft to palpation Back/Spine no CVA tenderness and no thoracic nor lumbar tenderness Extremity no clubbing, cyanosis or edema Skin no rashes or lesions noted Neuro oriented x3, CN's II-XII intact bilaterally, moves all extremities and no focal motor deficits Speech: speech normal Gait (Neuro): normal gait Psych mental status grossly normal Coding Level of Care Code Off vis,est,level 4 Exam Problem Focused Diagnoses Malignant neoplasm of ascending colon C18.2 Colon location: ascending Regional lymph node metastasis present C77.9 Lung nodules R91.8 Encounter for chemotherapy management Z51.11 Assessment and Plan Assessment and Plan (1) Colon cancer: Status: Acute Qualifiers: Colon location: ascending Qualified Code(s): C18.2 - Malignant neoplasmof ascending colon (2) Regional lymph node metastasis present: Status: Acute (3) Lung nodules: Status: Acute (4) Encounter for chemotherapy management: Status: Acute Orders: Orders Carcinoembryonic Antigen Today C18.2 - Malignant neoplasm of ascending colon Plan 74-year-old female with high risk stage III colon cancer (T3, N2, M0), status post robotic assisted right hemicolectomy December 2024 at [facility]. There are 2 subcentimeter too small to characterize lung nodules that will be followedup. Chronic comorbid conditions: Hypertension, dyslipidemia, DJD, obesity and history of M?ni?re's disease. Recommendations: Based on NCCN guidelines and up-to-date review of treatment of stage III high risk colon cancer with intent to cure advise: 1. 6 months adjuvant modified FOLFOX 6. The patient's questions were addressedto her satisfaction and she is agreeable to proceed with cycle 1 today. 2. Preoperative CEA was requested. 3. Two lung nodules will be followed up with CT of the chest, abdomen and pelvisat the end of treatment. Clinical Quality Measures Falls Risk Screening/Assistive Devices Have you fallen in the past year?: No 03/21/25 0848 <Electronically signed by Alyssa TORRESC> Date _ Alyssa HAWKINS Cosigner Signature: Date (if applicable) CC: ~ [facility] Work Phone: 1(521) 798-207205-19-2025 Radiology Diagnostic study note [facility] Imaging Services [address] [place], [place] [address] CXR for Line Placement MR#: [id number] Acct: [id number] Name: JESSIKA CARRILLO Rep #: [id number] : 1950 F 74 From: Tomer Greco MD PCP: JUVENTINO Pérez Status: [facility] Study:CXR for Line Placement Date of Exam: 03/20/25 Exam# [id number] Ordering Dr: St lou Gaines MD PROCEDURE: CXR FOR LINE PLACEMENT 03/20/2025 REASON FOR EXAM: NEW PORT PLACEMENT TECHNIQUE: Single AP upright view of the chest COMPARISON: November 17, 2024 FINDINGS: Heart normal size. New left central venous port in good position terminating in the superior vena cava. No infiltrates. No pleural effusions. No pneumothorax. Osseous structures grossly appear intact. RAD/CXR for Line Placement IMPRESSION: 1. New left central venous port in good position terminating in superior vena cava. 2. No infiltrates. 3. No pneumothorax. Reading [facility] CC: Dr. Micahel Gaines MD; JUVENTINO Pérez ~ Lace Inspector: Signed [facility]05-19-2025 Consult note [facility] Medical Records Department [address] [place] [address] Anesthesia Postop Eval II 03/20/25 1424 MR#: [id number] Acct: [id number] Name: JESSIKA CARRILLO Rep #:[id number] : 1950 74 From: Josue Ceballos MD PCP: JUVENTINO Pérez Status:REG SDC Y Race: C Location: [place] [address] Anesthesia Postop Eval I Sum Postop Eval Completion status Anesthesia document: Postop Eval 1 completed: Yes Anesthesia Postop Eval I Summary Anesthesia Postop Eval I Summary: Anesthesia Postop Eval I: Assessment Summary Airway patent Yes 03/20/25 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 Spontaneous unlabored Yes 03/20/25 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 respirations Mental status Awake 03/20/25 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 nausea No 03/20/25 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 Vomiting No 03/20/25 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 Anesthesia Postop Eval I: Fluid Summary Crystalloid volume administer 500 03/20/25 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 (ml) Colloids volume administered ( ml) Blood Product volume administered (ml) Total IV fluid infused 500 03/20/25 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 Anesthesia Postop Eval I: Summary Notes Anesthesia Complication No 03/20/25 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 Anesthesia Complication Comment: Post-operative progress note Anesthesia: Postop Eval II Evaluation Mental status: Awake Pain Level: 0 nausea: No Vomiting: No 03/20/25 1424 > Date _ Josue Smyth Signature: Date CC: ~ Signed [facility]05-19-2025 History and physical note Author Michael Gaines [facility] Note Date/Time March 20, 2025 12:07 pm [facility] Medical Records Department [address] [place] [address] History & Physical Exam 03/20/25 1205 MR#: [id number] Acct: [id number] Name: JESSIKA CARRILLO Rep #:[id number] : 1950 74 From: Michael Gaines MD PCP: JUVENTINO Pérez Status:[facility] Location: [place] [address] HPI - General General Date of Admission: 03/20/25 Date of Service: 03/20/25 Chief Complaint: Mediport placement HPI Narrative JESSIKA CARRILLO, is a 74 F who presents today for Mediport placement. She was recently discovered to have colon cancer. Her treating oncologist have recommended chemotherapy. She is supposed to begin chemotherapy I believe on March 21. [facility] Medical History Loss of hearing Wears glasses Post-menopausal Cancer Asthma History of pain when walking Encounter for education Regional lymph node metastasis present Degenerative joint disease Arthritis High cholesterol Migraine headache History of Meniere's disease Former smoker Hx of echocardiogram Hypertension Home Medications ?Medication ?Instructions ?Recorded ?Last Taken ?Type lisinopril 20 1 tab PO DAILY 03/18/2103/03 History mg-hydrochlorothiazide 25 mg tablet metoprolol tartrate 50 mg tablet 50 mg PO DAILY 03/20/25 07:00 History multivitamin 1 tab PO QDAY 03/06/25 Unkno wn History turmeric 400 mg capsule 400 mg PO DAILY 03/06/25 Unk nown History lidocaine-prilocaine 2.5 %-2.5 % 1 applic topical ONCE PRN port 03/15/25 Unknown Rx topical cream access 30 days #30 grams ondansetron 8 mg disintegrating 8 mg PO Q8H PRN nausea and 03/15/25 Unknown Rx tablet vomiting #30 tabs prochlorperazine maleate 10 mg 10 mg PO Q6H PRN nausea and 03/15/25 Unknown Rx tablet vomiting #30 tabs Allergy/AdvReac Type Severity Reaction Status Date / Time No Known Allergies Allergy Verified 03/20/25 11:27 Family History Father Heart disease Aunt Breast cancer Surgical History History of hysteroscopy History of colectomy History of total right knee replacement Hx of colonoscopy Social History Smoking Status: Former smoker Tobacco: How many years used: 5 alcohol intake: never substance use type: does not use Vital Signs Vital Signs Vital Signs: Weight Weight: 187 lb Assessment & Plan Assessment/Plan (1) Colon cancer: QUALIFIERS: Colon location: ascending Qualified Code(s): C18.2 - Malignant neoplasm of ascending colon PLAN: Plan Patient is a 74-year-old female with recently discovered and treated colon cancer. Her treating oncologist are recommending chemotherapy. She presents today for port placement. This will begin shortly 03/20/25 1207 <Electronically signed by Michael Gaines MD> Cosigner Signature (if applicable): CC: Dr. Michael Gaines MD; JUVENTINO Pérez~ Signed [facility] Work Phone: 1(323) 706-736605-19-2025 Procedure note [facility] Medical Records Department [address] [place] [address] Operative Report 03/20/25 1321 MR#: [id number] Acct: [id number] Name: JESSIKA CARRILLO Rep #:[id number] : 1950 74 From: Michael Gaines MD PCP: JUVENTINO Pérez Status:[facility] Location: [place] [address] Problems Associated Problem List Diagnoses (1) Colon cancer: Procedures Cardiovascular CF Procedures [id number]: [id number] Insert tunneled cv cath Operative Report (Standard) Operative Information Date of Procedure: 03/20/25 Pre-Operative Diagnosis: Colon cancer Post-Operative Diagnosis: Colon cancer Surgery/Procedure Performed: Left subclavian Mediport placement with C arm retail receiving clerk: No Type of Anesthesia: Local and MAC RN Documented Start/Stop Times: Operation Date: 03/20/25 12:30 Case Time Into Pre-Op 03/20/25 11:17 Out of Pre-Op 03/20/25 12:24 Anesthesia Start 03/20/25 12:27 Into Room 03/20/25 12:27 Procedure Start 03/20/25 12:43 Procedure End 03/20/25 13:08 Anesthesia End 03/20/25 13:11 Out of Room 03/20/25 13:11 Into Recovery 03/20/25 13:15 Procedure Start Time: 12:43 Procedure Stop Time: 13:08 Select all DRAINS/GRAFTS/IMPLANTS that apply: Implanted device Implanted device details: PowerPort injectable Mediport Special Medications: 2 g Ancef IV preop Estimated Blood Loss: 5 mL Specimen collected: No Description of surgery: The patient is a 74-year-old female who was recently seen in the office with a new diagnosis of colon cancer. She has undergone surgery and her treating oncology team is recommending chemotherapy. Asa result she presents for placement of a Mediport. In the office we discussed the details of the planned procedure as well as risks benefits and alternatives. She wishes to proceed. The patient was brought to the operating today following informed consent. Preoperative antibiotics were given and a timeout was performed. She was placedsupine on the operative table with arms outstretched and arm boards. A MAC anesthesia was induced. Once adequately sedated an axillary roll was placed between her shoulder blades to improve exposure. The left upper chest and neck regions were prepped and draped in the usual manner. Local anesthetic was then injected in the left periclavicular area. Then using the supplied needle and syringe I was able to gain access to the left subclavian vein on the first pass. The blood return was a dark red, nonpulsatile, venous appearing blood return. The supplied guidewire was then threaded through the aperture and the needle. This was advanced without difficulty. Itwas secured to the drapes using a curved hemostat. C-arm was brought in and confirmed good positioning of the wire. A small incision was made in the left upper chest for placement of the subcutaneoushub of the port. Local anesthetic was injected into this area. Incision was made using #15 blade. Bovie electrocautery was then used dissect down through the subcutaneous tissues. A subcutaneous pocket was created. Another small incision was made at the entry point of the guidewire. The Mediport tubing was then attached to the tunneling device and this was used to tunnel with a tubing into the larger incision and up and out through the smallermore superior incision. Tubing was then trimmed to about 20 cm. No bed then attached to the port hub. The hub was then affixed to the underlying pectoralisfascia using Prolene suture x 2. The dilator and tear-away sheath were then threaded over the guidewire and was advanced. C arm was used to confirm good placement. The dilator and guidewire were then removed thus leaving that sheathin place. The free end of the Mediport tubing was then threaded down the sheath. The sheath was then extracted. The port was tested using injectable saline. It mirza and flushed easily. Hemostasis was excellent. The wound was then closed with 3-0 Vicryl and 4-0 Vicryl. Skin glue was applied as dressing. The port was then accessed using 1 inch Mccain needle accessing tubing. A sterile 2 x 2 was placed underneath the accessing needle. A large Tegaderm was then applied over the entire area. The access and tubing was able to draw and flush easily. It was then flushed with heparin flush. The patient was awakenedfrom anesthesia and taken to recovery in good condition. Surgical Findings: See operative note Complications Complications: No Admit VTE Documentation VTE Present on Admission: No VTE Mechan Device Prophylaxis: SCD's VTE Pharm Prophylaxis ordered?: No Reason prophylaxis not ordered: Treatment Not Indicated 03/20/25 3431 Cosigner Signature (if applicable): CC: Dr. Michael Gaines MD; JUVENTINO Pérez~ Signed [facility]05-19-2025 Discharge summary [facility] Medical Records Department [address] [place] [address] Instructions for Home/Discharge Instructions 03/20/25 1316 MR#: [id number] Acct: [id number] Name: JESSIKA CARRILLO Rep #:[id number] : 1950 74 From: Michael Gaines MD PCP: JUVENTINO Pérez [place] [place] Instructions Diet Discharge Diet: Light diet - advance as tolerated Activity Discharge Activity: May Shower May shower in (days): 2 Ice area for (Minutes): 30 Dressing / Incision Call your doctor if your incision/area has: Continuous Slow Oozing, Sudden Increased Bleeding, Increased Pain/ Swelling, Increased Redness, Foul Smelling Discharge and Swelling at the incision site Call your doctor if you observe: Fever of 101 or Higher Cleanse incision/area with: Soap & Water Follow Up Care Please Follow Up With: Michael Gaines MD When: as needed Test Results: Test results from this visit will be discussed in further detail at your follow- up appointment, if applicable. Discharge Plan Admission Primary Reason for Your Visit: Mediport placement Attending Provider: Michael Gaines Primary Care Provider: Shu Chow Instructions Print Language: [place] Discharge Orders/Prescriptions Prescriptions: New oxycodone-acetaminophen [Percocet] 5-325 mg tablet 1 tab PO Q8H PRN (Reason: pain) 3 Days Qty: 5 0RF Continued multivitamin Tablet 1 tab PO QDAY turmeric 400 mg capsule 400 mg PO DAILY lidocaine-prilocaine 2.5-2.5 % cream 1 applic topical ONCE PRN (Reason: port access) 30 Days Qty: 30 2RF ondansetron 8 mg tablet,disintegrating 8 mg PO Q8H PRN (Reason: nausea and vomiting) Qty: 30 2RF prochlorperazine maleate 10 mg tablet 10 mg PO Q6H PRN (Reason: nausea and vomiting) Qty: 30 2RF metoprolol tartrate 50 mg Tablet 50 mg PO DAILY lisinopril-hydrochlorothiazide 20-25 mg Tablet 1 tab PO DAILY Referrals / Follow Up: Shu Chow PA [Primary Care Provider] - Disposition Disposition (needs filled in before D/C Order can be placed): Home, Self Care 03/20/25 1320Michael Gaines MD CC: JUVENTINO Pérez ~ Signed [facility]05-19-2025 Consult note [facility] Medical Records Department [address] [place] [address] Anesthesia Postop Eval I 03/20/25 1317 MR#: [id number] Acct: [id number] Name: FITOShivaJESSIKA E Rep #:[id number] : 1950 74 From: Ora Perez CRNA PCP: JUVENTINO Pérez Status:[facility] Y Race: C Location: [place] [address] Anesthesia: Postop Eval I Current Vital Signs Temperature: 97.9 F Pulse Rate: 54 Blood Pressure: 124/52 Respiratory Rate: 14 Pulse Ox: 97 Oxygen Delivery Method: Room Air Assessment Airway patent: Yes Spontaneous unlabored respirations: Yes Mental status: Awake nausea: No Vomiting: No Anesthesia Complication: No Fluid Hydration Crystalloid volume administer (ml): 500 Total IV fluid infused: 500 Progress Note Anesthesia document: Postop Eval 1 completed: Yes 03/20/25 1318 NA> Date _ Ora Perez CRNA Cosigner Signature: Date CC: ~ Signed [facility]05-19-2025 Consult note Author Josue Ceballos [facility] Note Date/Time March 20, 2025 11:16 am [facility] Medical Records Department [address] [address] Pre-Anesthesia Evaluation 03/20/25 1115 MR#: [id number] Acct: [id number] Name: FITOShivaJESSIKA E Rep #:[id number] : 1950 74 From: Josue Ceballos MD PCP: JUVENTINO Pérez Status:[facility] Race: C Location: AC AC22-1 ASA Classification* ASA Classification ASA Classification: 2 Assessment & Plan Anesthesia* Anesthesia Assessment Anesthesia Assessment: Discussed sedation and/or anesthesia options, risks, benefits, and alternatives with patient/parents/legal guardian/POA. Questions invited. The patient/parents/legal guardian/POA seems to understand and agrees to proceedwith anesthesia plan. Reviewed the physical assessment, medical history, allergy history and patient home medications list prior to surgery/procedure/anesthetic and documented any changes. Performed airway and anesthesia risk assessments. Anesthesia Type Anesthesia Type: MAC Anesthesia Focused Assessment* Airway Assessment Mouth opens: >3 cm Mallampati Score: II Focused Labs Anesthesia Preop lab: CBC WBC 7.7 K/mm3 (4.4-11.0) 03/09/25 10:15 03/09/25 RBC 4.57 M/mm3 (4.2-5.4) 03/09/25 10:15 03/09/25 Hgb 13.9 g/dL (12.0-15.0) 03/09/25 10:15 03/09/25 Hct 41.3 % (37-47) 03/09/25 10:15 03/09/25 Plt Count 382 K/mm3 (150-450) 03/09/25 10:15 03/09/25 CHEMISTRY Potassium 4.2 mmol/L (3.3-5.1) 03/09/25 10:15 03/09/25 Sodium 139 mmol/L (133-145) 03/09/25 10:15 03/09/25 BUN 15 mg/dL (4-19) 03/09/25 10:15 03/09/25 Creatinine 0.74 mg/dL (0.70-1.20) 03/09/25 10:15 03/09/25 Glucose 101 mg/dL (70-99) H 03/09/25 10:15 03/09/25 COAG PT 12.5 SECONDS (11.7-14.9) 03/21/21 11:01 Pre-Assessment Diagnosis/Proposed Procedure Planned Operative Procedure(s): INSERTION VASCULAR PORT LEFT Anesthesia History Anesthesia History - lift builder whole: Anesthesia History - lift builder whole Hx Hospitalization No 03/17/25 11:44 Any Problems With Anesthesia Yes: N,V 03/17/25 11:44 Cholinesterase deficiency No 03/17/25 11:44 You/Your Family Experience No 03/17/25 11:44 fever (hyperthermia) with Relationship Recent Exposure to Contagious No 03/25/21 10:01 Disease Does patient have nerve No 03/17/25 11:44 stimulator Patient instructed to have device shut off --Does patient have Pacemaker or ICD? When Was Last Pacemaker Check QUESTION #4 FULL TEXT: You/Your Family Experience fever (hyperthermia) with Anesthesia Last Oral Intake Last Oral intake: Last Oral Intake NPO since Meds taken in AM with sips of water? Meds patient instructed to take am of surgery PONV PONV - lift builder whole: PONV - lift builder whole Female Yes 03/17/25 11:44 HX of Motion Sickness No 03/17/25 11:44 HX of N/V After Surgery No 03/17/25 11:44 Non-Smoker Yes 03/17/25 11:44 Duration of Surgery greater No 03/17/25 11:44 than 60 minutes Number of Risk Factors 2 03/17/25 11:44 PONV Score Moderate Risk 03/17/25 11:44 Height & Weight Height & Weight: Anesthesia: Height & Weight Height 5 ft 2 in 03/17/25 08:59 Weight: 84.822 kg 03/17/25 08:59 Respiratory Assessment Respiratory Assessment - lift builder whole: Respiratory Tract Infection Hx - lift builder whole Hx Respiratory Tract Infection No 03/17/25 11:44 STOP Sleep Apnea STOP Sleep Apnea - lift builder whole: STOP Sleep Apnea - lift builder whole Hx Hypertension Yes: controlled with med 03/17/25 11:44 Hx Sleep Apnea No 03/17/25 11:44 CPAP Yes 03/17/25 11:44 BIPAP Do you snore loudly (louder No 03/17/25 11:44 than talking or can be heard Do you often feel tired/ No 03/17/25 11:44 fatigued/ sleepy during daytime? Has anyone observed you stop No 03/17/25 11:44 breathing during sleep? STOP Results Negative 03/17/25 11:44 QUESTION #5 FULL TEXT : Do you snore loudly (louder than talking or can be heard through closed doors)? 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 Specify any problems Hx of Preganancy in last 3 No 03/17/25 11:44 Months Nurse Filling Out Transfusion DSCHRIBER 03/17/25 11:44 & Questions: Date: 03/17/25 03/17/25 11:44 Time: 11:45 03/17/25 11:44 Patient unable to answer at this time (ie. confused, unrespo /Reproduction History /Reproductive History - lift builder whole: /Reproductive Hx- lift builder whole Hx Now Gestational Age (in weeks): EDC: Hx Hx Para Hx Section SAB No 03/17/25 11:44 Active Medications Active Medications: Current Medications Generic Name Dose Route Start Last Admin Trade Name Freq PRN Reason Stop Dose Admin Cefazolin Sodium 2 gm/ Sodium 110 mls @ 150 mls/hr 03/20/25 12:30 Chloride IV 03/20/25 13:13 INTRAOP ONE PFSH Medical History Loss of hearing Wears glasses Post-menopausal Cancer Asthma History of pain when walking Encounter for education Regional lymph node metastasis present Degenerative joint disease Arthritis High cholesterol Migraine headache History of Meniere's disease Former smoker Hx of echocardiogram Hypertension Home Medications ?Medication ?Instructions ?Recorded ?Last Taken ?Type lisinopril 20 1 tab PO DAILY 03/18/21/02/20 History mg-hydrochlorothiazide 25 mg tablet metoprolol tartrate 50 mg tablet 50 mg PO DAILY 03/25/21 History multivitamin 1 tab PO QDAY 03/06/25 Unkno wn History turmeric 400 mg capsule 400 mg PO DAILY 03/06/25 Unk nown History lidocaine-prilocaine 2.5 %-2.5 % 1 applic topical ONCE PRN port 03/15/25 Unknown Rx topical cream access 30 days #30 grams ondansetron 8 mg disintegrating 8 mg PO Q8H PRN nausea and 03/15/25 Unknown Rx tablet vomiting #30 tabs prochlorperazine maleate 10 mg 10 mg PO Q6H PRN nausea and 03/15/25 Unknown Rx tablet vomiting #30 tabs Allergy/AdvReac Type Severity Reaction Status Date / Time No Known Allergies Allergy Verified 03/17/25 11:42 Family History Father Heart disease Aunt Breast cancer Surgical History History of hysteroscopy History of colectomy History of total right knee replacement Hx of colonoscopy Social History Smoking Status: Former smoker Tobacco: How many years used: 5 alcohol intake: never substance use type: does not use Review of Systems (Anesthesia) ROS Narrative System reviewed and no additional complaints, except as documented. 03/20/25 1116 <Electronically signed by Josue Ceballos MD > Date _ Josue Ceballos MD Cosigner Signature: Date CC: ~ Signed [facility] Work Phone: [phone]) 458-364005-19-2025 History and physical note [facility] Medical Records Department [address] [place] [address] History & Physical Exam 03/20/25 1205 MR#: [id number] Acct: [id number] Name: JESSIKA CARRILLO Rep #:[id number] : 1950 74 From: Michael Gaines MD PCP: JUVENTINO Pérez [place] Location: [address] HPI - General General Date of Admission: 03/20/25 Date of Service: 03/20/25 Chief Complaint: Mediport placement HPI Narrative JESSIKA CARRILLO, is a 74 F who presents today for Mediport placement. She was recently discovered to have colon cancer. Her treating oncologist have recommended chemotherapy. She is supposed to begin chemotherapy I believe on March 21. [facility] Medical History Loss of hearing Wears glasses Post-menopausal Cancer Asthma History of pain when walking Encounter for education Regional lymph node metastasis present Degenerative joint disease Arthritis High cholesterol Migraine headache History of Meniere's disease Former smoker Hx of echocardiogram Hypertension Home Medications ?Medication ?Instructions ?Recorded ?Last Taken ?Type lisinopril 20 1 tab PO DAILY 03/18/2103/03 History mg-hydrochlorothiazide 25 mg tablet metoprolol tartrate 50 mg tablet 50 mg PO DAILY 03/20/25 07:00 History multivitamin 1 tab PO QDAY 03/06/25 Unkno wn History turmeric 400 mg capsule 400 mg PO DAILY 03/06/25 Unk nown History lidocaine-prilocaine 2.5 %-2.5 % 1 applic topical ONCE PRN port 03/15/25 Unknown Rx topical cream access 30 days #30 grams ondansetron 8 mg disintegrating 8 mg PO Q8H PRN nausea and 03/15/25 Unknown Rx tablet vomiting #30 tabs prochlorperazine maleate 10 mg 10 mg PO Q6H PRN nausea and 03/15/25 Unknown Rx tablet vomiting #30 tabs Allergy/AdvReac Type Severity Reaction Status Date / Time No Known Allergies Allergy Verified 03/20/25 11:27 Family History Father Heart disease Aunt Breast cancer Surgical History History of hysteroscopy History of colectomy History of total right knee replacement Hx of colonoscopy Social History Smoking Status: Former smoker Tobacco: How many years used: 5 alcohol intake: never substance use type: does not use Vital Signs Vital Signs Vital Signs: Weight Weight: 187 lb Assessment & Plan Assessment/Plan (1) Colon cancer: QUALIFIERS: Colon location: ascending Qualified Code(s): C18.2 - Malignant neoplasm of ascending colon PLAN: Plan Patient is a 74-year-old female with recently discovered and treated colon cancer. Her treating oncologist are recommending chemotherapy. She presents today for port placement. This will begin shortly 03/20/25 1207 Cosign Signature (if applicable): CC: Dr. Michael Gaines MD; JUVENTINO Pérez~ Signed [facility]05-19-2025 [facility] Medical Records Department [address] [place] [address] History Physical Exam 03/20/25 1205 MR#: [id number] Acct: [id number] Name: JESSIKA CARRILLO Rep #: [id number] : 1950 74 From: Michael Gaines MD PCP: JUVENTINO Pérez Status:[facility] Location: [place] [address] HPI - General General Date of Admission: 03/20/25 Date of Service: 03/20/25 Chief Complaint: Mediport placement HPI Narrative JESSIKA CARRILLO, is a 74 F who presents today for Mediport placement. She was recently discovered to have colon cancer. Her treating oncologist have recommended chemotherapy. She is supposed to begin chemotherapy I believe on March 21. [facility] Medical History Loss of hearing Wears glasses Post-menopausal Cancer Asthma History of pain when walking Encounter for education Regional lymph node metastasis present Degenerative joint disease Arthritis High cholesterol Migraine headache History of Meniere's disease Former smoker Hx of echocardiogram Hypertension Home Medications ???Medication ???Instructions ???Recorded ???Last Taken ???Type lisinopril 20 1 tab PO DAILY 03/18/21 03/25/21 H istory mg-hydrochlorothiazide 25 mg tablet metoprolol tartrate 50 mg tablet 50 mg PO DAILY 03/18/21 03/20/25 0 7:00 History multivitamin 1 tab PO QDAY 03/06/25 Unknown His tory turmeric 400 mg capsule 400 mg PO DAILY 03/06/25 Unknown H istory lidocaine-prilocaine 2.5 %-2.5 % 1 applic topical ONCE PRN port Unknown Rx topical cream access 30 days #30 grams ondansetron 8 mg disintegrating 8 mg PO Q8H PRN nausea and 5 Unknown Rx tablet vomiting #30 tabs prochlorperazine maleate 10 mg 10 mg PO Q6H PRN nausea and Unknown Rx tablet vomiting #30 tabs Allergy/AdvReac Type Severity Reaction Status Date / Time No Known Allergies Allergy Verified 03/20/25 11:27 Family History Father Heart disease Aunt Breast cancer Surgical History History of hysteroscopy History of colectomy History of total right knee replacement Hx of colonoscopy Social History Smoking Status: Former smoker Tobacco: How many years used: 5 alcohol intake: never substance use type: does not use Vital Signs Vital Signs Vital Signs: Weight Weight: 187 lb Assessment Plan Assessment/Plan (1) Colon cancer: QUALIFIERS: Colon location: ascending Qualified Code(s): C18.2 - Malignant neoplasm of ascending colon PLAN: Plan Patient is a 74-year-old female with recently discovered and treated colon cancer. Her treating oncologist are recommending chemotherapy. She presents today for port placement. This will begin shortly 03/20/25 1207 Cosigner Signature (if applicable): CC: Dr. Michael Gaines MD; JUVENTINO [facility]rez [facility] Consult note [facility] Medical Records Department [address] [place] [address] Pre-Anesthesia Evaluation 03/20/25 1115 MR#: [id number] Acct: [id number] Name: JESSIKA CARRILLO Rep #:[id number] : 1950 74 From: Josue Ceballos MD PCP: JUVENTINO Pérez Status:REG SDC Y Race: C Location: [place] [address]- ASA Classification* ASA Classification ASA Classification: 2 Assessment & Plan Anesthesia* Anesthesia Assessment Anesthesia Assessment: Discussed sedation and/or anesthesia options, risks, benefits, and alternatives with patient/parents/legal guardian/POA. Questions invited. The patient/parents/legal guardian/POA seems to understand and agrees to proceedwith anesthesia plan. Reviewed the physical assessment, medical history, allergy history and patient home medications list prior to surgery/procedure/anesthetic and documented any changes. Performed airway and anesthesia risk assessments. Anesthesia Type Anesthesia Type: MAC Anesthesia Focused Assessment* Airway Assessment Mouth opens: >3 cm Mallampati Score: II Focused Labs Anesthesia Preop lab: CBC WBC 7.7 K/mm3 (4.4-11.0) 03/09/25 10:15 03/09/25 RBC 4.57 M/mm3 (4.2-5.4) 03/09/25 10:15 03/09/25 Hgb 13.9 g/dL (12.0-15.0) 03/09/25 10:15 03/09/25 Hct 41.3 % (37-47) 03/09/25 10:15 03/09/25 Plt Count 382 K/mm3 (150-450) 03/09/25 10:15 03/09/25 CHEMISTRY Potassium 4.2 mmol/L (3.3-5.1) 03/09/25 10:15 03/09/25 Sodium 139 mmol/L (133-145) 03/09/25 10:15 03/09/25 BUN 15 mg/dL (4-19) 03/09/25 10:15 03/09/25 Creatinine 0.74 mg/dL (0.70-1.20) 03/09/25 10:15 03/09/25 Glucose 101 mg/dL (70-99) H 03/09/25 10:15 03/09/25 COAG PT 12.5 SECONDS (11.7-14.9) 03/21/21 11:01 Pre-Assessment Diagnosis/Proposed Procedure Planned Operative Procedure(s): INSERTION VASCULAR PORT LEFT Anesthesia History Anesthesia History - lift builder whole: Anesthesia History - lift builder whole Hx Hospitalization No 03/17/25 11:44 Any Problems With Anesthesia Yes: N,V 03/17/25 11:44 Cholinesterase deficiency No 03/17/25 11:44 You/Your Family Experience No 03/17/25 11:44 fever (hyperthermia) with Relationship Recent Exposure to Contagious No 03/25/21 10:01 Disease Does patient have nerve No 03/17/25 11:44 stimulator Patient instructed to have device shut off --Does patient have Pacemaker or ICD? When Was Last Pacemaker Check QUESTION #4 FULL TEXT: You/Your Family Experience fever (hyperthermia) with Anesthesia Last Oral Intake Last Oral intake: Last Oral Intake NPO since Meds taken in AM with sips of water? Meds patient instructed to take am of surgery PONV PONV - lift builder whole: PONV - lift builder whole Female Yes 03/17/25 11:44 HX of Motion Sickness No 03/17/25 11:44 HX of N/V After Surgery No 03/17/25 11:44 Non-Smoker Yes 03/17/25 11:44 Duration of Surgery greater No 03/17/25 11:44 than 60 minutes Number of Risk Factors 2 03/17/25 11:44 PONV Score Moderate Risk 03/17/25 11:44 Height & Weight Height & Weight: Anesthesia: Height & Weight Height 5 ft 2 in 03/17/25 08:59 Weight: 84.822 kg 03/17/25 08:59 Respiratory Assessment Respiratory Assessment - lift builder whole: Respiratory Tract Infection Hx - lift builder whole Hx Respiratory Tract Infection No 03/17/25 11:44 STOP Sleep Apnea STOP Sleep Apnea - lift builder whole: STOP Sleep Apnea - lift builder whole Hx Hypertension Yes: controlled with med 03/17/25 11:44 Hx Sleep Apnea No 03/17/25 11:44 CPAP Yes 03/17/25 11:44 BIPAP Do you snore loudly (louder No 03/17/25 11:44 than talking or can be heard Do you often feel tired/ No 03/17/25 11:44 fatigued/ sleepy during daytime? Has anyone observed you stop No 03/17/25 11:44 breathing during sleep? STOP Results Negative 03/17/25 11:44 QUESTION #5 FULL TEXT : Do you snore loudly (louder than talking or can be heard through closeddoors)? 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 Specify any problems Hx of Preganancy in last 3 No 03/17/25 11:44 Months Nurse Filling Out Transfusion DSCHRIBER 03/17/25 11:44 & Questions: Date: 03/17/25 03/17/25 11:44 Time: 11:45 03/17/25 11:44 Patient unable to answer at this time (ie. confused, unrespo /Reproduction History /Reproductive History - lift builder whole: /Reproductive Hx- lift builder whole Hx Now Gestational Age (in weeks): EDC: Hx Hx Para Hx Section SAB No 03/17/25 11:44 Active Medications Active Medications: Current Medications Generic Name Dose Route Start Last Admin Trade Name Freq PRN Reason Stop Dose Admin Cefazolin Sodium 2 gm/ Sodium 110 mls @ 150 mls/hr 03/20/25 12:30 Chloride IV 03/20/25 13:13 INTRAOP ONE PFSH Medical History Loss of hearing Wears glasses Post-menopausal Cancer Asthma History of pain when walking Encounter for education Regional lymph node metastasis present Degenerative joint disease Arthritis High cholesterol Migraine headache History of Meniere's disease Former smoker Hx of echocardiogram Hypertension Home Medications ?Medication ?Instructions ?Recorded ?Last Taken ?Type lisinopril 20 1 tab PO DAILY 03/18/21 05/02/20 History mg-hydrochlorothiazide 25 mg tablet metoprolol tartrate 50 mg tablet 50 mg PO DAILY 03/25/21 History multivitamin 1 tab PO QDAY 03/06/25 Unkno wn History turmeric 400 mg capsule 400 mg PO DAILY 03/06/25 Unk nown History lidocaine-prilocaine 2.5 %-2.5 % 1 applic topical ONCE PRN port 03/15/25 Unknown Rx topical cream access 30 days #30 grams ondansetron 8 mg disintegrating 8 mg PO Q8H PRN nausea and 03/15/25 Unknown Rx tablet vomiting #30 tabs prochlorperazine maleate 10 mg 10 mg PO Q6H PRN nausea and 03/15/25 Unknown Rx tablet vomiting #30 tabs Allergy/AdvReac Type Severity Reaction Status Date / Time No Known Allergies Allergy Verified 03/17/25 11:42 Family History Father Heart disease Aunt Breast cancer Surgical History History of hysteroscopy History of colectomy History of total right knee replacement Hx of colonoscopy Social History Smoking Status: Former smoker Tobacco: How many years used: 5 alcohol intake: never substance use type: does not use Review of Systems (Anesthesia) ROS Narrative System reviewed and no additional complaints, except as documented. 03/20/25 1116 > Date _ Josue Ramos Signature: Date CC: ~ Signed [facility]05-14-2025 Progress [facility] [place] [address] OFFICE VISIT Date of Service: 03/15/25 0805 MR#: [id number] Acct: [id number] Name: JESSIKA CARRILLO Rep #: [id number] : 1950 From: Alyssa Zavala anita MELLO SECURITY INFRASTRUCTURE ENGINEER-C Age/Sex: 74/F Location: [facility] Status: Signed HPI Subjective Date of Service 03/15/25 Chief Complaint Colon cancer History of Present Illness 74-year-old female with no family of colon cancer had screening colonoscopy August 17, 2024 by at [place] with 2 sessile polypoid lesions were found, at 30 cm was positive for adenocarcinoma, the second lesion was at 50 cm no pathology was found. November 17, 2024 CT scan of the abdomen and pelvis showed a filling defect at the mid descending colon, none specific mesenteric lymph nodes, hypodense foci in the right and left hepatic lobes too small to characterize. Incidental findings were a right renal cyst and a 10 mm hypodense focus in the upper pole of the left kidney. Patient was then referred to [facility] for further management. December 31, 2024 MRI of the abdomen and pelvis: Benign cysts in the liver and kidney, ascending colonic mass with adjacent infiltrative or reactive inflammatory change with a mass abutting the inferior right lobe of liver without dividing the fat plane and right mesenteric lymphadenopathy. December 31, 2024 CT of the chest: 2 nonspecific pulmonary nodules in the left lung base measuring 6 mmand 3 mm. January 23, 2025 robotic right hemicolectomy at [facility] by Dr. Antonio. 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 Mismatch repair protein by IHC showed MLH1 absent/lost, PMS2 absent/lost, MSH2 present/intact, MSH6 present/intact. The presence of hyper methylation of MLH1 promoter in the tumor sample with loss of MLH1 expression by IHC suggests a MLH1 germline mismatch repair gene mutation isnot present. No further testing was indicated. Treatment summary and response: January 23, 2025 robotic right hemicolectomy at [facility]. Interval History The patient is presenting to clinic accompanied by adult daughterDon for an education visit. No diarrhea, has not identified any aggravating foods. Reports active lifestyle and good support system by way of daughters. [facility] Medical History (Updated 03/15/25 @ 08:16 by Alyssa Lynch SECURITY INFRASTRUCTURE ENGINEER, SECURITY INFRASTRUCTURE ENGINEER-C) Encounter for education Lung nodules Regional lymph node metastasis present Degenerative joint disease Arthritis High cholesterol Back pain Migraine headache Syncope History of Meniere's disease Former smoker Hx of echocardiogram Hypertension Surgical History History of colectomy History of total right knee replacement Hx of colonoscopy Family History Father Heart disease Aunt Breast cancer Social History Smoking Status: Former smoker Tobacco: How many years used: 5 alcohol intake: never substance use type: does not use ROS ROS Narrative Negative except as documented in the interval HPI Intake Vital Signs 03/09/25 09:22 03/15/25 08:06 03/15/25 08:10 Height 5 ft 2 in 5 ft 2 in 5 ft 2 in Weight: 185 lb 2 oz 187 lb 3 oz BMI 33.8 34.2 BP 157/85 H 151/80 H Blood Pressure Location Lt brachial Rt brachial Position Sitting Sitting Respiration 16 16 Pulse 63 57 L Pulse Source Monitor Monitor Temp 97.3 F L 98.2 F Temperature Source Temporal Artery Temporal Artery Pulse Oximetry (%) 100 98 Oxygen Delivery Method room air room air Intake Allergies No Known Allergies Allergy (Verified 03/15/25 08:09) Medications ?Medication ?Instructions ?Recorded ?Confirmed ?Type lisinopril 20 1 tab PO DAILY 03/18/2103/02 History mg-hydrochlorothiazide 25 mg tablet metoprolol tartrate 50 mg tablet 50 mg PO DAILY 03/15/25 History multivitamin 1 tab PO QDAY 03/06/2503/15 History turmeric 400 mg capsule mg PO DAILY 03/06/25 5 History lidocaine-prilocaine 2.5 %-2.5 % 1 applic topical ONCE PRN port 03/15/25 03/15/25 Rx topical cream access 30 days #30 grams ondansetron 8 mg disintegrating 8 mg PO Q8H PRN nausea and 03/15/25 03/15/25 Rx tablet vomiting #30 tabs prochlorperazine maleate 10 mg 10 mg PO Q6H PRN nausea and 03/15/25 03/15/25 Rx tablet vomiting #30 tabs Have you fallen in the past year?: No Central Venous Access Central Venous Access: No Exam Physical Exam Narrative ECOG 0-1 Const alert, oriented x3 and no apparent distress General Appearance: comfortable Nutritional Appearance: overweight HEENT Face and Sinus: normal facial exam Mouth: oral and palatal mucosa normal Eyes General Eye: normal appearance of both eyes Neck no lymphadenopathy and no JVD Resp clear to auscultation bilaterally Cardio regular rate and regular rhythm Jugular Venous Distention: Negative for JVD GI soft to palpation, non-tender and non-distended Back/Spine no thoracic nor lumbar tenderness Extremity no clubbing, cyanosis or edema Skin no rashes or lesions noted Neuro oriented x3, CN's II-XII intact bilaterally, moves all extremities and no focal motor deficits Speech: speech normal Gait (Neuro): normal gait Psych mental status grossly normal Coding Level of Care Code Off vis,est,level 5 Exam Problem Focused Diagnoses Malignant neoplasm of ascending colon C18.2 Colon location: ascending Regional lymph node metastasis present C77.9 Lung nodules R91.8 Encounter for education Z71.9 Assessment and Plan Assessment and Plan (1) Colon cancer: Status: Acute Qualifiers: Colon location: ascending Qualified Code(s): C18.2 - Malignant neoplasmof ascending colon (2) Regional lymph node metastasis present: Status: Acute (3) Lung nodules: Status: Acute (4) Encounter for education: Status: Acute Medications: New lidocaine-prilocaine 2.5-2.5 % 1 applic topical ONCE 30 days PRN 30 grams 2RF port access C18.2 - Malignant neoplasm of ascending colon ondansetron 8 mg PO Q8H PRN 30 tabs 2RF nausea and vomiting C18.2 - Malignant neoplasm of ascendingcolon prochlorperazine maleate 10 mg PO Q6H PRN 30 tabs 2RF nausea and vomiting C18.2 - Malignant neoplasm of ascending colon, R11.2 - Nausea with vomiting, unspecified, T45.1X5A - Adverse effect of antineoplastic and immunosuppressive drugs, initial encounter Plan 74-year-old female with high risk stage III colon cancer (T3, N2, M0), status post robotic assistedright hemicolectomy December 2024 at [facility]. There are 2 subcentimeter too small to characterize lung nodules that will be followedup. Chronic comorbid conditions: Hypertension, dyslipidemia, DJD, obesity and history of M?ni?re's disease. Recommendations: Based on NCCN guidelines and up-to-date review of treatment of stage III high riskcolon cancer with intent to cure advise: 1. 6 months adjuvant modified FOLFOX 6. The patient has been thoroughly educated to risks/benefits associated with oxaliplatin, leucovorin,fluorouracil. Specifically, she has been educated to potential side effects, recommendations for symptom management, and circumstances in which she should contact provider immediately, such as the dev elopment of any signs/symptoms of infection inclusive of temperature > 100.4. Encouraged to go directly to ED should fever occur outside normal clinic hours. She has been provided written educational information and after hours contact information and prescriptions for prn antiemetics/EMLA cream. A significant amount of time was allotted for questions. All the patient's concerns were addressedto her satisfaction and she is agreeable to proceed. Tentatively, she will commence with cycle 1 on. 2. Preoperative CEA (if any) requested. 3. Two lung nodules will be followed up with CT of the chest, abdomen and pelvisat the end of treatment. I spent 65 minutes today reviewing labs, records and history. Time includes coordination of care and education, as well as documenting clinical information. Clinical Quality Measures Falls Risk Screening/Assistive Devices Have you fallen in the past year?: No 03/15/25 0930 h SECURITY INFRASTRUCTURE ENGINEER SECURITY INFRASTRUCTURE ENGINEER-C> Date _ Alyssa Lynch SECURITY INFRASTRUCTURE ENGINEER SECURITY INFRASTRUCTURE ENGINEER-C Cosigner Signature: Date (if applicable) CC: ~ [facility]05-14-2025 Progress note Author Alyssa Lynch [facility] Note Date/Time March 15, 2025 9:30a m [facility] [place] [address] OFFICE VISIT Date of Service: 03/15/25804 MR#: [id number] Acct: [id number] Name: JESSIKA CARRILLO Rep #: [id number] : 1950 From: Alyssa Zavala ch SECURITY INFRASTRUCTURE ENGINEER SECURITY INFRASTRUCTURE ENGINEER-C Age/Sex: 74/F Location: [facility] Status: Signed HPI Subjective Date of Service 03/15/25 Chief Complaint Colon cancer History of Present Illness 74-year-old female with no family of colon cancer had screening colonoscopy August 17, [address] Boles at [place] with 2 sessile polypoid lesions were found, at 30 cm was positive for adenocarcinoma, the second lesion was at 50 cm no pathology was found. November 17, 2024 CT scan of the abdomen and pelvis showed a filling defect at the mid descending colon, none specific mesenteric lymph nodes, hypodense foci in the right and left hepatic lobes too small to characterize. Incidental findings were a right renal cyst and a 10 mm hypodense focus in the upper pole of the left kidney. Patient was then referred to [facility] for further management. December 31, 2024 MRI of the abdomen and pelvis: Benign cysts in the liver and kidney, ascending colonic mass with adjacent infiltrative or reactive inflammatory change with a mass abutting the inferior right lobe of liver without dividing the fat plane and right mesenteric lymphadenopathy. December 31, 2024 CT of the chest: 2 nonspecific pulmonary nodules in the left lung base measuring 6 mm and 3 mm. January 23, 2025 robotic right hemicolectomy at [facility] by Dr. Antonio. 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 Mismatch repair protein by IHC showed MLH1 absent/lost, PMS2 absent/lost, MSH2 present/intact, MSH6 present/intact. The presence of hyper methylation of MLH1 promoter in the tumor sample with loss of MLH1 expression by IHC suggests a MLH1 germline mismatch repair gene mutation isnot present. No further testing was indicated. Treatment summary and response: January 23, 2025 robotic right hemicolectomy at [facility]. Interval History The patient is presenting to clinic accompanied by adult daughter, Don for an education visit. No diarrhea, has not identified any aggravating foods. Reports active lifestyle and good support system by way of daughters. [facility] Medical History (Updated 03/15/25 @ 08:16 by Alyssa Lynch SECURITY INFRASTRUCTURE ENGINEER, SECURITY INFRASTRUCTURE ENGINEER-C) Encounter for education Lung nodules Regional lymph node metastasis present Degenerative joint disease Arthritis High cholesterol Back pain Migraine headache Syncope History of Meniere's disease Former smoker Hx of echocardiogram Hypertension Surgical History History of colectomy History of total right knee replacement Hx of colonoscopy Family History Father Heart disease Aunt Breast cancer Social History Smoking Status: Former smoker Tobacco: How many years used: 5 alcohol intake: never substance use type: does not use ROS ROS Narrative Negative except as documented in the interval HPI Intake Vital Signs 03/09/25 09:22 03/15/25 08:06 03/15/25 08:10 Height 5 ft 2 in 5 ft 2 in 5 ft 2 in Weight: 185 lb 2 oz 187 lb 3 oz BMI 33.8 34.2 BP 157/85 H 151/80 H Blood Pressure Location Lt brachial Rt brachial Position Sitting Sitting Respiration 16 16 Pulse 63 57 L Pulse Source Monitor Monitor Temp 97.3 F L 98.2 F Temperature Source Temporal Artery Temporal Artery Pulse Oximetry (%) 100 98 Oxygen Delivery Method room air room air Intake Allergies No Known Allergies Allergy (Verified 03/15/25 08:09) Medications ?Medication ?Instructions ?Recorded ?Confirmed ?Type lisinopril 20 1 tab PO DAILY 03/18/2103/02 History mg-hydrochlorothiazide 25 mg tablet metoprolol tartrate 50 mg tablet 50 mg PO DAILY 03/15/25 History multivitamin 1 tab PO QDAY 03/06/2503/15 History turmeric 400 mg capsule mg PO DAILY 03/06/25 5 History lidocaine-prilocaine 2.5 %-2.5 % 1 applic topical ONCE PRN port 03/15/25 03/15/25 Rx topical cream access 30 days #30 grams ondansetron 8 mg disintegrating 8 mg PO Q8H PRN nausea and 03/15/25 03/15/25 Rx tablet vomiting #30 tabs prochlorperazine maleate 10 mg 10 mg PO Q6H PRN nausea and 03/15/25 03/15/25 Rx tablet vomiting #30 tabs Have you fallen in the past year?: No Central Venous Access Central Venous Access: No Exam Physical Exam Narrative ECOG 0-1 Const alert, oriented x3 and no apparent distress General Appearance: comfortable Nutritional Appearance: overweight HEENT Face and Sinus: normal facial exam Mouth: oral and palatal mucosa normal Eyes General Eye: normal appearance of both eyes Neck no lymphadenopathy and no JVD Resp clear to auscultation bilaterally Cardio regular rate and regular rhythm Jugular Venous Distention: Negative for JVD GI soft to palpation, non-tender and non-distended Back/Spine no thoracic nor lumbar tenderness Extremity no clubbing, cyanosis or edema Skin no rashes or lesions noted Neuro oriented x3, CN's II-XII intact bilaterally, moves all extremities and no focal motor deficits Speech: speech normal Gait (Neuro): normal gait Psych mental status grossly normal Coding Level of Care Code Off vis,est,level 5 Exam Problem Focused Diagnoses Malignant neoplasm of ascending colon C18.2 Colon location: ascending Regional lymph node metastasis present C77.9 Lung nodules R91.8 Encounter for education Z71.9 Assessment and Plan Assessment and Plan (1) Colon cancer: Status: Acute Qualifiers: Colon location: ascending Qualified Code(s): C18.2 - Malignant neoplasmof ascending colon (2) Regional lymph node metastasis present: Status: Acute (3) Lung nodules: Status: Acute (4) Encounter for education: Status: Acute Medications: New lidocaine-prilocaine 2.5-2.5 % 1 applic topical ONCE 30 days PRN 30 grams 2RF port access C18.2 - Malignant neoplasm of ascending colon ondansetron 8 mg PO Q8H PRN 30 tabs 2RF nausea and vomiting C18.2 - Malignant neoplasm of ascending colon prochlorperazine maleate 10 mg PO Q6H PRN 30 tabs 2RF nausea and vomiting C18.2 - Malignant neoplasm of ascending colon, R11.2 - Nausea with vomiting, unspecified, T45.1X5A - Adverse effect of antineoplastic and immunosuppressive drugs, initial encounter Plan 74-year-old female with high risk stage III colon cancer (T3, N2, M0), status post robotic assisted right hemicolectomy December 2024 at [facility]. There are 2 subcentimeter too small to characterize lung nodules that will be followedup. Chronic comorbid conditions: Hypertension, dyslipidemia, DJD, obesity and history of M?ni?re's disease. Recommendations: Based on NCCN guidelines and up-to-date review of treatment of stage III high risk colon cancer with intent to cure advise: 1. 6 months adjuvant modified FOLFOX 6. The patient has been thoroughly educated to risks/benefits associated with oxaliplatin, leucovorin, fluorouracil. Specifically, she has been educated to potential side effects, recommendations for symptom management, and circumstances in which she should contact provider immediately, such as the development of any signs/symptoms of infection inclusive of temperature > 100.4. Encouraged to go directly to ED should fever occur outside normal clinic hours. She has been provided written educational information and after hours contact information and prescriptions for prn antiemetics/EMLA cream. A significant amount of time was allotted for questions. All the patient's concerns were addressed to her satisfaction and she is agreeable to proceed. Tentatively, she will commence with cycle 1 on . 2. Preoperative CEA (if any) requested. 3. Two lung nodules will be followed up with CT of the chest, abdomen and pelvisat the end of treatment. I spent 65 minutes today reviewing labs, records and history. Time includes coordination of care and education, as well as documenting clinical information. Clinical Quality Measures Falls Risk Screening/Assistive Devices Have you fallen in the past year?: No 03/15/25 0930 <Electronically signed by Alyssa li NP SECURITY INFRASTRUCTURE ENGINEER-C> Date _ Alyssa Lynch NP SECURITY INFRASTRUCTURE ENGINEER-C Cosigner Signature: Date (if applicable) CC: ~ [facility] Work Phone: [phone] 323-237805-08-2025 Evaluation note* Diagnosis Onset Date Resolution Status Admit Date Colon cancer acute March 09 8:53am Lung nodules acute March 09 8:53am Regional lymph node metastas is present acute March 09, 2025 8: 53am Colon cancer acute March 15 7:58am Encounter for education acute M ay 2024 7:58am Lung nodules acute March 15 7:58am Regional lymph node metastas is present acute March 15, 2025 7 :58am [employer] [facility] Work Phone: 1(261) 826-931205-08-2025 Evaluation note* Diagnosis Onset Date Resolution Status Admit Date Colon cancer acute March 09 8:53am Lung nodules acute March 09 8:53am Regional lymph node metastas is present acute March 09, 2025 8: 53am Colon cancer acute March 15 7:58am Encounter for education acute M ay 2024 7:58am Lung nodules acute March 15 7:58am Regional lymph node metastas is present acute March 15, 2025 7 :58am Colon cancer acute March 15 9:51am Colon cancer acute March 20 11:03am [facility] Work Phone: 1(373) 441-997505-08-2025 Evaluation note* Diagnosis Onset Date Resolution Status Admit Date Colon cancer acute March 09 8:53am Lung nodules acute March 09 8:53am Regional lymph node metastas is present acute March 09, 2025 8: 53am Colon cancer acute March 15 7:58am Encounter for education acute M ay 2024 7:58am Lung nodules acute March 15 7:58am Regional lymph node metastas is present acute March 15, 2025 7 :58am Colon cancer acute March 15 9:51am Colon cancer acute March 20 11:03am Colon cancer acute March 21 7:21am Encounter for chemotherapy management acute March 21, 2025 7 :21am Lung nodules acute March 21 7:21am Regional lymph node metastas is present acute March 21, 2025 7 :21am [facility] Work Phone: 1(945) 189-572705-08-2025 Evaluation note* Diagnosis Onset Date Resolution Status Admit Date Colon cancer acute March 09 8:53am Lung nodules acute March 09 8:53am Regional lymph node metastas is present acute March 09, 2025 8: 53am Colon cancer acute March 15 7:58am Encounter for education acute M ay 2024 7:58am Lung nodules acute March 15 7:58am Regional lymph node metastas is present acute March 15, 2025 7 :58am Colon cancer acute March 15 9:51am Colon cancer acute March 20 11:03am Colon cancer acute March 21 7:21am Encounter for chemotherapy management acute March 21, 2025 7 :21am Lung nodules acute March 21 7:21am Regional lymph node metastas is present acute March 21, 2025 7 :21am Colon cancer acute April 04 7:42am Encounter for chemotherapy management acute April 04, 2025 7 :42am Lung nodules acute April 04 7:42am Regional lymph node metastas is present acute April 04, 2025 7 :42am [employer] Work Phone: 1(624) 789-164105-08-2025 Evaluation note* Diagnosis Onset Date Resolution Status Admit Date Colon cancer acute March 09 8:53am Lung nodules acute March 09 8:53am Regional lymph node metastas is present acute March 09, 2025 8: 53am Colon cancer acute March 15 7:58am Encounter for education acute M ay 2024 7:58am Lung nodules acute March 15 7:58am Regional lymph node metastas is present acute March 15, 2025 7 :58am Colon cancer acute March 15 9:51am Colon cancer acute March 20 11:03am Colon cancer acute March 21 7:21am Encounter for chemotherapy management acute March 21, 2025 7 :21am Lung nodules acute March 21 7:21am Regional lymph node metastas is present acute March 21, 2025 7 :21am Colon cancer acute April 04 7:42am Diarrhea due to drug acute April 04, 2025 7:42am Encounter for chemotherapy management acute April 04, 2025 7 :42am Lung nodules acute April 04 7:42am Regional lymph node metastas is present acute April 04, 2025 7 :42am Anemia acute April 18 8:49am Colon cancer acute April 18 8:49am Diarrhea due to drug acute April 18, 2025 8:49am Lung nodules acute April 18 8:49am Regional lymph node metastas is present acute April 18, 2025 8:49am [facility] Work Phone: 1([phone]) 501-780705-08-2025 Evaluation note* Diagnosis Onset Date Resolution Status Admit Date Colon cancer acute March 09 8:53am Lung nodules acute March 09 8:53am Regional lymph node metastas is present acute March 09, 2025 8: 53am Colon cancer acute March 15 7:58am Encounter for education acute M 2024 7:58am Lung nodules acute March 15 7:58am Regional lymph node metastas is present acute March 15, 2025 7 :58am Colon cancer acute March 15 9:51am Colon cancer acute March 20 11:03am Colon cancer acute March 21 7:21am Encounter for chemotherapy management acute March 21, 2025 7 :21am Lung nodules acute March 21 7:21am Regional lymph node metastas is present acute March 21, 2025 7 :21am Colon cancer acute April 04 7:42am Diarrhea due to drug acute April 04, 2025 7:42am Encounter for chemotherapy management acute April 04, 2025 7 :42am Lung nodules acute April 04 7:42am Regional lymph node metastas is present acute April 04, 2025 7 :42am Anemia acute April 18 8:49am Colon cancer acute April 18 8:49am Diarrhea due to drug acute April 18, 2025 8:49am Lung nodules acute April 18 8:49am Regional lymph node metastas is present acute April 18, 2025 8:49am Anemia acute May 02, 2025 7:29am Colon cancer acute May 02 7:29am Diarrhea due to drug acute May 02, 2025 7:29am Encounter for chemotherapy management acute May 02, 2025 7 :29am Lung nodules acute May 02 7:29am Regional lymph node metastas is present acute May 02, 2025 7 :29am [facility] Work Phone: 1(646) 663-992904-22-2025 History of Present illness Narrative* Malick Ricci, POLISHER [employer]ANDER[employer]RECEIVING ROOM CLERK - 02/21/2025 1:45 PM EDT Chief Complaint: Chief Complaint Patient presents with Post Op Visit 01/23/2025 COLECTOMY PARTIAL ROBOTIC XI RIGHT HPI: Jessika Carrillo a 74 y.o. female returns for follow up after robotic partial right colectomy on 01/23/2025. In the interim she has done very well. Appetite, energy levels, and bowel function are back at baseline. She is aware of the need for adjuvant treatment and wishes to follow up locally. Pathologic Diagnosis A. Right colon, terminal ileum and appendix, robotic right hemicolectomy: Medullary carcinoma of the ascending colon, 6.3 cm, see comment and synoptic report. Tumor infiltrates through muscularis propria, focally into pericolonic soft tissue. Small vessel lymphovascular invasion is identified. Metastatic carcinoma identified in six of twenty-seven lymph nodes (6/27). Resection margins are negative for carcinoma. Pathology stage: pT3/N2a. Terminal ileum, negative for malignancy. Appendix with fibrous obliteration of lumen, negative for malignancy. Subjective: BP 166/74 Pulse 75 Temp 98 F (36.7 C) (Infrared) Resp 18 Ht 1.549 m (5' 1) Wt 85.5 kg (188 lb 9.6 oz) SpO2 97% Comment: room air BMI 35.64 kg/m Smoking Status Former Physical Exam: Gen: Alert, well appearing, and in no distress Cardiac: Normal rate Abdomen: soft, non-tender, non-distended. Well healed surgical incisions Neuro: No focal deficits, II-XII grossly intact, alert & oriented X 3 A/P: Jessika Carrillo is a 74 y.o. female with a history of colon cancer s/p partial colectomy. Her recovery has been uneventful, but pathology suggest she will need follow up treatment. - Referral to oncology. Prefer to establish with [facility] as this is closer to home. Referral placed and faxed. Patient was seen in conjunction with Dr. Rosas and the plan of care was developed by him. [facility] * AFRICA Thomas - 02/21/2025 1:45 PM EDT I saw and evaluated the patient with SECURITY [employer]RASTRUCTURE ENGINEER. I personally reviewed the chart / imaging studies and provided a substantive portion of the care for this patient. I personally performed all aspects of the medical decision making for this encounter. I have reviewed and verified this documentation and it accurately reflects our care and have added a separate note to reflect my clinical impression. Doing well, denies any new issues, reports good bowel function. Exam normal with incisions healing well. Pathologic Diagnosis A. Right colon, terminal ileum and appendix, robotic right hemicolectomy: Medullary carcinoma of the ascending colon, 6.3 cm, see comment and synoptic report. Tumor infiltrates through muscularis propria, focally into pericolonic soft tissue. Small vessel lymphovascular invasion is identified. Metastatic carcinoma identified in six of twenty-seven lymph nodes (6/27). Resection margins are negative for carcinoma. Pathology stage: pT3/N2a. Terminal ileum, negative for malignancy. Appendix with fibrous obliteration of lumen, negative for malignancy. Comment: Mismatch Repair Protein (MMR) Nuclear Expression by IHC: (present/intact or absent/lost) MLH1: absent/lost PMS2: absent/lost MSH2: present/intact MSH6: present/intact Need of adjuvant immunotherapy / chemotherapy was discussed given LN+ disease. Patient indicated that she wishes to pursue treatment locally. A referral was sent to Dr. Schuler's office. She will return to see me on as needed basis. [facility] Instructions* Patient Instructions* Irish Boyce RN - 02/21/2025 1:45 PM EDT Survey Following your visit today, you may receive a survey via text or email asking about your experience. We are always looking for ways to improve your visit. Please share your feedback and comments withus- We would love to hear from you! [facility] Tele[facility] encounter Note* Telephone Encounter - Tricia Otero RN - 01/29/2025 12:15 PM EDT AUTOMATED POST DISCHARGE FOLLOW UP CALL Jessika Carrillo received an automated post discharge call on 01/29/2025 , after discharge from the hospital yesterday. An alert in the [employer] ([employer]) system was received after the patient completed the automated call assessment. The ([employer] System) Alert, medical record, and discharge summary were reviewed. A call back to the patient was then placed to the patient on 01/29/2025. [employer] Questionnaire with Alert: Feedback and alerts Question (Questions are listed alphabetically) Response Alert Are you feeling worse than you felt when you left the facility? No At this time, do you need a nurse to contact you regarding any other concerns? No Do you have any questions about any of your follow-up appointments? No Do you have any questions about your follow up process or care instructions that we have provided? Yes Alert We like to recognize any employee or doctor who did an excellent job for you while you were in the facility. Are there any employees or doctors you'd like to recognize? When you were discharged, were you prescribed any new medications? No SITUATION: The nurse followed up with the patient with regard to the (above) [employer] post- discharge alerts. In discussion of how they are feeling since being discharged from the hospital, the patient's condition can be best described as stable. The patient reports they have no questions or concerns at this time. BACKGROUND: Patient has a history of arthritis, HTN, HLD, ascending colon cancer. Patient underwent robotic right colectomy 01/23/[address] Rosas.She tolerated the procedure well and there were no immediate complications. Her hospital course was complicated by an ileus for which she was NPO for 2 days. She had + ROBF and her nausea resolved. At that point her diet was advanced to regular diet, which she tolerated well. She was discharged 01/28/25 home in stable condition. On day of discharge, she was ambulating independently, voiding spontaneously, and tolerating a regular diet. She reports pain is controlled on an oral regimen, and vital signs are stable. Medications: gabapentin, ibuprofen. Change: Acetaminophen. Resume Home Meds.Stop flagyl and neomycin. Ask your provider about: oxycodone. DME: no needs identified HHC: no needs identified. LDA: Incisions Abd laparoscopic puncture five and all closed with dermabond Appointments:02/21 Dr Rosas, Referrals: JTOCC ASSESSMENT: SYMPTOMS: QUESTIONS: Assessment Plan Any Additional Symptoms? Patient Reports NO current symptomseating and drinking w/o difficulty.Having BM's urinating w/o difficulty. Incisions c/d/i Instructed how to access the After Hours Nurse Triage Line after the provider's office has closed by calling the provider's office number. It will automatically ring over to the Nurse. We are available whenever the office is closed on weekends & holidays, 25/05. Other: MEDICATIONS: QUESTIONS: Assessment Plan Any Questions regarding your Meds? No If Yes: What questions do they have about their medications? Do you understand why you have been prescribed your medications? Yes Do you understand how to take your medications? Yes Could you fill your medications (new/ renewed) after discharge? Yes If no: What medications were you not able to fill & why? Did someone review/ provide education about your meds with you or your caregiver prior to discharge? Yes Other: FOLLOW UP: QUESTIONS: Assessment Plan Do you have any upcoming appointments with your primary doctor at the [facility]? Yes 02/21/2025 1:45 PM S[facility] Rosas Division of Colon & Rectal Surgery Arrive at: Arrive to [facility] Registration [phone] How do you plan to get to your appointments? (Transportation) Family member Other: EDUCATION: QUESTIONS: Assessment Plan Where you provided a copy of your AVS/Discharge Instructions at Discharge? Yes Patient instructed that if they have any additional clinical needs, questions or a change in condition to contact their physician's office. Provided patient/caregiver with primary physician's phone number and informed them that this number is routed to the [facility] Clinical Call Center nurse triage team after hours. Do you have questions about your Discharge Instructions (AVS)? No If Yes: What questions do they have? Prior to your discharge, did you receive education about your Discharge needs/ Review AVS? (i.e. teaching on medication management, line/tubes/drain/airways, injection teaching, home health care, equipment, appointments, symptom management, etc)? Yes Prior to discharge, did you/caregiver provide a demonstration back on how you would care for yourself at home after discharge? Yes Other: POST ACUTE CARE: QUESTIONS: Assessment Plan HOME HEALTH/ INFUSION/ PT/ OT Were any services arranged for you for your discharge needs? No QUESTIONS: Assessment Plan DURABLE MEDICAL EQUIPMENT Any new DME at discharge? No Do you have any other DME at home currently? yes - Cane (Standard), yes - Walker (Standard - no wheels), and yes - Walker (with 2 front wheels) What DME do you use at home? Walker (with 2 front wheels) QUESTIONS: Assessment Plan LINES/TUBES/DRAINS Do you have any Lines/Tubes/Drains? Yes If Yes: Patient has: Surgical Incision If Yes: Contact Information Supply Company Incisions laparoscopic punctures closed with dermabond Patient confirms they have the contact information for they supply company No - Nurse Provided supplies from hospital at discharge. Patient confirms they have supplies required at home? No - No supplies needed/ required at home Patient confirms they know how to obtain more when needed? No - No supplies needed/ indicated Nurse reviewed education about the patient's lines/tubes/drains and patient verbalizes understanding of care Yes, Nurse reviewed care instructions and education of patient's incisions on abd and laparoscopic punctures closed with dermabond with Patient. Patient verbalizes understanding of care needs and reports they know who to contact if they have additional questions or issues related to the above. Reviewed s/s of infection. Call if temperature of 100.4 or above. Incision (s) appears red, swollen, painful, draining (color yellow/green, pus-like, odor) red streak from incision. If incision appears to be opening or coming apart. Pt states understanding. ADDITIONAL NEEDS/ QUESTIONS: Assessment Plan RESOLUTION/PLAN Patient verbalized understanding of instructions/ education listed above. No additional needs identified, forwarding the above information to the patient's primary team. Dr Rosas Patient instructed when to seek Help: Patient instructed on signs and symptoms and when they call their physician s office. Instructed patient that if they have any additional clinical needs, questions or a change in condition to contacttheir physician s office, which is routed to the [facility] [place] nurse triage team afterhours. Discussed emergency plan with patient. If patient has a medical emergency, patient instructed to call 911, or proceed to their nearest emergency room. Assisted the patient to formulate a plan, such as keeping all healthcare provider numbers in a prominent place. Tricia Otero RN, BSN, OCN [facility] Post Discharge Call Team & Nurse Clinical Call Center Team [facility] Miscellaneous Notes* Telephone Encounter - Tricia Otero RN - 01/29/2025 12:15 PM EDT AUTOMATED POST DISCHARGE FOLLOW UP CALL Jessika Carrillo received an automated post discharge call on 01/29/2025 , after discharge from the hospital yesterday. An alert in the [employer] system was received after the patient completed the automated call assessment. The ([employer] System) Alert, medical record, and discharge summary were reviewed. A call back to the patient was then placed to the patient on 01/29/2025. [employer] Questionnaire with Alert: Feedback and alerts Question (Questions are listed alphabetically) Response Alert Are you feeling worse than you felt when you left the facility? No At this time, do you need a nurse to contact you regarding any other concerns? No Do you have any questions about any of your follow-up appointments? No Do you have any questions about your follow up process or care instructions that we have provided? Yes Alert We like to recognize any employee or doctor who did an excellent job for you while you were in the facility. Are there any employees or doctors you'd like to recognize? When you were discharged, were you prescribed any new medications? No SITUATION: The nurse followed up with the patient with regard to the (above) [employer] post- discharge alerts. In discussion of how they are feeling since being discharged from the hospital, the patient's condition can be best described as stable. The patient reports they have no questions or concerns at this time. BACKGROUND: Patient has a history of arthritis, HTN, HLD, ascending colon cancer. Patient underwent robotic right colectomy 01/23/[address] Rosas.She tolerated the procedure well and there were no immediate complications. Her hospital course was complicated by an ileus for which she was NPO for 2 days. She had + ROBF and her nausea resolved. At that point her diet was advanced to regular diet, which she tolerated well. She was discharged 01/28/25 home in stable condition. On day of discharge, she was ambulating independently, voiding spontaneously, and tolerating a regular diet. She reports pain is controlled on an oral regimen, and vital signs are stable. Medications: gabapentin, ibuprofen. Change: Acetaminophen. Resume Home Meds.Stop flagyl and neomycin. Ask your provider about: oxycodone. DME: no needs identified HHC: no needs identified. LDA: Incisions Abd laparoscopic puncture five and all closed with dermabond Appointments:02/21 Dr Rosas, Referrals: [facility]TOCC ASSESSMENT: SYMPTOMS: QUESTIONS: Assessment Plan Any Additional Symptoms? Patient Reports NO current symptomseating and drinking w/o difficulty.Having BM's urinating w/o difficulty. Incisions c/d/i Instructed how to access the After Hours Nurse Triage Line after the provider's office has closed by calling the provider's office number. It will automatically ring over to the Nurse. We are available whenever the office is closed on weekends & holidays, 25/05. Other: MEDICATIONS: QUESTIONS: Assessment Plan Any Questions regarding your Meds? No If Yes: What questions do they have about their medications? Do you understand why you have been prescribed your medications? Yes Do you understand how to take your medications? Yes Could you fill your medications (new/ renewed) after discharge? Yes If no: What medications were you not able to fill & why? Did someone review/ provide education about your meds with you or your caregiver prior to discharge? Yes Other: FOLLOW UP: QUESTIONS: Assessment Plan Do you have any upcoming appointments with your primary doctor at the [facility]? Yes 02/21/2025 1:45 PM Sachi Rosas Division of Colon & Rectal Surgery Arrive at: Arrive to [facility] Registration [phone] How do you plan to get to your appointments? (Transportation) Family member Other: EDUCATION: QUESTIONS: Assessment Plan Where you provided a copy of your AVS/Discharge Instructions at Discharge? Yes Patient instructed that if they have any additional clinical needs, questions or a change in condition to contact their physician's office. Provided patient/caregiver with primary physician's phone number and informed them that this number is routed to the [facility] nurse triage team after hours. Do you have questions about your Discharge Instructions (AVS)? No If Yes: What questions do they have? Prior to your discharge, did you receive education about your Discharge needs/ Review AVS? (i.e. teaching on medication management, line/tubes/drain/airways, injection teaching, home health care, equipment, appointments, symptom management, etc)? Yes Prior to discharge, did you/caregiver provide a demonstration back on how you would care for yourself at home after discharge? Yes Other: POST ACUTE CARE: QUESTIONS: Assessment Plan HOME HEALTH/ INFUSION/ PT/ OT Were any services arranged for you for your discharge needs? No QUESTIONS: Assessment Plan DURABLE MEDICAL EQUIPMENT Any new DME at discharge? No Do you have any other DME at home currently? yes - Cane (Standard), yes - Walker (Standard - no wheels), and yes - Walker (with 2 front wheels) What DME do you use at home? Walker (with 2 front wheels) QUESTIONS: Assessment Plan LINES/TUBES/DRAINS Do you have any Lines/Tubes/Drains? Yes If Yes: Patient has: Surgical Incision If Yes: Contact Information Supply Company Incisions laparoscopic punctures closed with dermabond Patient confirms they have the contact information for they supply company No - Nurse Provided supplies from hospital at discharge. Patient confirms they have supplies required at home? No - No supplies needed/ required at home Patient confirms they know how to obtain more when needed? No - No supplies needed/ indicated Nurse reviewed education about the patient's lines/tubes/drains and patient verbalizes understanding of care Yes, Nurse reviewed care instructions and education of patient's incisions on abd and laparoscopic punctures closed with dermabond with Patient. Patient verbalizes understanding of care needs and reports they know who to contact if they have additional questions or issues related to the above. Reviewed s/s of infection. Call if temperature of 100.4 or above. Incision (s) appears red, swollen, painful, draining (color yellow/green, pus-like, odor) red streak from incision. If incision appears to be opening or coming apart. Pt states understanding. ADDITIONAL NEEDS/ QUESTIONS: Assessment Plan RESOLUTION/PLAN Patient verbalized understanding of instructions/ education listed above. No additional needs identified, forwarding the above information to the patient's primary team. Dr Rosas Patient instructed when to seek Help: Patient instructed on signs and symptoms and when they call their physician s office. Instructed patient that if they have any additional clinical needs, questions or a change in condition to contacttheir physician s office, which is routed to the [facility] [place] nurse triage team afterhours. Discussed emergency plan with patient. If patient has a medical emergency, patient instructed to call 911, or proceed to their nearest emergency room. Assisted the patient to formulate a plan, such as keeping all healthcare provider numbers in a prominent place. Tricia Otero RN, BSN, OCN [facility] Post Discharge Call Team & Nurse Clinical Call [facility] Nurse Note* Nursing Notes - Reyna Maher RN - 01/28/2025 12:28 PM EDT AVS read to pt and family they voice understanding. IV's removed. Meds reviewed. Pt d/c'd in stablecondition at this time. [facility]03-29-[facility] Miscellaneous Notes* Nursing Notes - Reyna Maher RN - 01/28/2025 12:28 PM EDT AVS read to pt and family they voice understanding. IV's removed. Meds reviewed. Pt d/c'd in stablecondition at this time. * Nursing Notes - Miracle Etienne RN - 01/27/2025 9:53 AM EDT 01/27/25 0953 Final Discharge Planning Discharge Disposition Home Plan Plan pt to DC to home in am. Patient/Family In Agreement With Plan yes Plan Comments see note Transport Request Mode of Transfer Private Vehicle [facility] PCR Discharge Note Jessika Carrillo was discussed in medical rounds for discharge to home in am. PCRM met with the patient to discuss final discharge plan. The pt will DC to home independently. She will have outpt follow-up. She will have JTOCC follow-up. Services for Discharge Jessika Carrillo is to discharge to home with support provided by family. She will be discharging with outpt services. Consults with Final Discharge Recommendations NA Lines/Tubes/Drains/Wounds/Supplies The patient does not require any line/tube/drain or wound supplies. Medications Medical team will reconcile her medications at discharge. Durable Medical Equipment No DME needs were identified during this admission. Transportation Transportation to home will be provided by family. Education Patient and family instructed on the discharge plan. Follow Up(s) See AVS. 02/21/2025 1:45 PM Sachi Rosas Division of Colon & Rectal Surgery Arrive at: Arrive to [facility] Floor Registration [facility] Risk of Readmission: 2.9% Risk of Readmission: 2.9 Category Reference: Low: 0% - 5% Medium - Low: 5.1% - 10% Medium - High: 10.1% - 16% High: 16.1% - 100% Readmission Risk Interventions Documented: Yes Was a referral made to an Ambulatory PCRM? Yes, Eleonora Mcgarry The PCRM has updated the patient's nurse Reyna regarding the final discharge plan. This pt will discharge to home in am. The pt is to follow all appointments, and instructions as listed in the AVS. No other discharge needs have been identified at this time. Patient and family are in agreement with final discharge plan. Please refer to AVS and medical record for additional information. Jessika Carrillo has been instructed to call with questions. PCRM will continue to follow with medical team for any additional discharge planning needs. For evening and weekend discharge assistance please page the financial services professional PCRM at [phone]. PCRM to continue to follow and provide support. Natalia Etienne RN Float PCRM [phone] * Nursing Notes - Reyna Maher RN - 01/27/2025 9:10 AM EDT 0900- Lovenox education given pt able to perform return demonstration correctly at this time. * Plan of Care - Rickie Armstrong RN - 01/26/2025 6:26 PM EDT Patient has performed amazing walking 5 times has chewed gum and has been tolerating a clear liquiddiet. She has had no nausea and no emesis. However her abdomen remains tympanic and she has not passed gas since yesterday. Patient remains at risk for emesis. However Bp has come down and more controlled. Patient is progressing as expected. * Plan of Care - Alberta Cowart PT - 01/26/2025 1:48 PM EDT Problem: PT - General Goals Goal: Supine <-> Sit Transfers - Patient will perform supine to/from sit transfers with independence and without use of hospital bed features in order to improve functional mobility and safety. Outcome: Met Goal: Sit <-> Stand Transfers - Patient will perform sit to/from stand transfers with independence and without an assistive device in order to improve functional mobility and safety. Outcome: Met Goal: Standing Endurance/Balance - Patient will perform standing balance tasks for 5 min with independence and without an assistive device to improve endurance and safety with standing tasks such as cooking. Outcome: Met Goal: Ambulation - Patient will ambulate 500 feet with independence and without an assistive deviceto improve ability to safely navigate home and community. Outcome: Progressing Goal: Strength - Patient will verbalize understanding of exercise program. Outcome: Met Alberta Cowart PT , DPT, CLT License #: [id number] * Nursing Notes - Lianna Charles RN - 01/25/2025 8:09 PM EDT 1957 (R) PIV Infiltrated and removed. Pictured in chart along with abdominal sites 2007 Contacted financial services professional regarding [id number] Jessika Carrillo. Pt's BP 191/111 (MAP 144). Hx HTN. Resting in bed. Denied pain/symptoms. No PRN for increased BP. Looks like she was elevated during the day as well. CB [id number] Inquired about tele order due to labetalol admin instructions 0420 Contacted financial services professional regarding [id number] Jessika Carrillo. Pt reports having three loose black stools on shift. Patient states that this has been ongoing postoperatively. She was wondering if there was anything to help w/ BM. CB [id number] * Plan of Care - Nelly Ramirez RN - 01/25/2025 5:32 PM EDT Problem: Adult Inpatient Plan of Care Goal: Optimal Comfort and Wellbeing Intervention: Monitor Pain and Promote Comfort Flowsheets (Taken 01/25/2025 1731) Pain Management Interventions: [id number] dosing utilized diversional activity provided pain management plan reviewed with patient/caregiver premedicated for activity * Nursing Notes - Nelly Ramirez RN - 01/25/2025 3:54 PM EDT This RN notified Dr. Rica Ocampo via secure chat, patient with 550 ml emesis after ambulation. IV nausea medicine given. Dr. Strauss at bedside to assess. New orders place, NPO and XR A/P. This Rn will continue to monitor. * Nursing Notes - Yoav Schwartz RN - 01/24/2025 4:40 PM EDT Patient had 3 bowel movements today. Bowel movements look bloody, picture of last BM taken and uploaded to chart. Vidhya Lucas NP notified. * Nursing Notes - Miracle Etienne, RN - 01/24/2025 3:12 PM EDT 01/24/25 1512 Final Discharge Planning Discharge Disposition Home Services at Discharge Outpatient clinical services (ie: lab draws, transfusions, injectables) Plan Plan pt to DC to home in am as she remains stable. Patient/Family In Agreement With Plan yes Plan Comments see note Transport Request Mode of Transfer Private Vehicle [facility] PCRM Discharge Note Jessika Carrillo was discussed in medical rounds for discharge to home in am as she remains stable. PCRM met with the patient and family to discuss final discharge plan. The pt will DC to home independently and follow-up outpt. Services for Discharge Jessika Carrillo is to discharge to home with support provided by family. She will be discharging with outpt services. Consults with Final Discharge Recommendations NA Lines/Tubes/Drains/Wounds/Supplies The patient does not require any line/tube/drain or wound supplies. Medications Medical team will reconcile her medications at discharge. The scripts were sent electronically to local pharmacy. Durable Medical Equipment No DME needs were identified during this admission. Transportation Transportation to home will be provided by family. Education Patient and family instructed on the discharge plan. Follow Up(s) See AVS. 02/21/2025 1:45 PM Sachi Rosas Division of Colon & Rectal Surgery Arrive at: Arrive to [facility] First Floor Registration [facility] Risk of Readmission: 2.9% Risk of Readmission: 2.9 Category Reference: Low: 0% - 5% Medium - Low: 5.1% - 10% Medium - High: 10.1% - 16% High: 16.1% - 100% Readmission Risk Interventions Documented: Yes ACO patient- NO Was a referral made to an Ambulatory PCRM? no The PCRM has updated the patient's nurse Yoav regarding the final discharge plan. This pt will discharge to home in am. The pt is to follow all appointments, and instructions as listed in the AVS. No other discharge needs have been identified at this time. Patient and family are in agreement with final discharge plan. Please refer to AVS and medical record for additional information. Jessika Carrillo has been instructed to call with questions. PCRM will continue to follow with medical team for any additional discharge planning needs. For evening and weekend discharge assistance please page the financial services professional PCRM at [phone]. PCRM to continue to follow and provide support. Natalia Etienne RN Float PCRM [phone] * Nursing Notes - Miralce Etienne RN - 01/24/2025 10:45 AM EDT 01/24/25 1045 Referral Information Arrived From operating room Readmission Information Was patient readmitted within 30 Days? No Information Source Information Source patient ;child Information Source Name Lucy Rosen Information Source Number [phone] Outpatient Providers Outpatient Providers Updated In IHIS Yes Contact Information Parent Partner/SW Added to Care Team Yes This Submarine Cable Equipment Technician is Primary Parent Partner/SW No Parent Partner Name Natalia Etienne Parent Partner's Social Work Contact Name Cluster coverage. Game Breeding Farm Manager's Phone Number see care team. Living Environment Lives With alone (daughter Don lives close by) Living Arrangement and Set Up house Provides Primary Care For no one Caregiving Concerns NA Primary Care Provided By self Support System Immediate family;Congregational;Extended family;Friends;Neighbors Able to Return to Prior Arrangements yes Functional Status Patient's Functional Status Prior To This Admission? Independent Are There Status Changes This Admission? No Changes Observed Since Admission? No Changes Observed Concerns With Patient Being Able To Care For Themselves At Discharge? Has Assistance (Friend, Family, Skilled Provider) Who Is Patient's Primary Contact For Discharge Planning, Education And Care For Discharge? self Can Support Person Meet The Care Needs Of The Patient? Yes Employment/Financial Employed? Retired Employment Details NA Employment/Financial Concerns no Employment/Financial Comments NA Source Of Income social security Financial Concerns none Insurance Medical Insurance Verified Yes Prescription Coverage Yes Pharmacy updated in IHIS Yes Initial Discharge Planning Home Care Services (ENGINE ASSEMBLY SUPERVISOR) No Home Therapies (ENGINE ASSEMBLY SUPERVISOR) None DME (ENGINE ASSEMBLY SUPERVISOR) None Medical Supplies (ENGINE ASSEMBLY SUPERVISOR) None Patient Goal for Discharge Get better Anticipated Services at Discharge Outpatient clinical services (ie: lab draws, transfusions, injectables) Anticipated Changes Related to Illness none Current Discharge Risk chronically ill Transportation Available car Discharge Coordination/Progress pt to DC to home once medically stable. Home Care Services (ENGINE ASSEMBLY SUPERVISOR) Additional Home Care Services (ENGINE ASSEMBLY SUPERVISOR) no Assessment/Concerns to be Addressed Concerns To Be Addressed no discharge needs identified;denies needs/concerns at this time Concerns Comments see note PCRM Initial Assessment Met with the pt and daughter Christal to complete the initial assessment. Explained role and function of PCRM in multidisciplinary team. Contact number provided for questions. Demographic information reviewed with patient/family and confirmed as correct. The pt is alert and oriented and able to answer questions. She lives in her home alone but her daughter Don lives close by. She also has great support from her friends, neighbors and zoroastrian. She hs no HHC or DME and denies needs. Family will transport to home. She follows with Dr Rosas. Reason for Admission: 74 y.o. 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 Estimated length of stay: 2-3 days. Advance directives Patient does not have Advanced Directives on File Lines/Drains/Tubes PIV Initial PCRM Discharge Planning DC to home independently. Final plan will be determined closer to discharge, pending therapy and medical team recommendations. Patient/family verbalized understanding and agreement with the plan of care. Patient/family have no questions at this time. PCRM will continue to follow patient with multidisciplinary team for ongoing assessment of needs and for discharge planning. Medical team updated. PCRM to continue to follow and provide support. Natalia Etienne RN Float PCR [phone] For evening and weekend discharge assistance please page the financial services professional PCRM at [phone]. * Plan of Care - Alberta Cowart, PT - 01/24/2025 9:23 AM EDT Problem: PT - General Goals Goal: Supine <-> Sit Transfers - Patient will perform supine to/from sit transfers with independence and without use of hospital bed features in order to improve functional mobility and safety. Outcome: Ongoing Goal: Sit <-> Stand Transfers - Patient will perform sit to/from stand transfers with independence and without an assistive device in order to improve functional mobility and safety. Outcome: Ongoing Goal: Standing Endurance/Balance - Patient will perform standing balance tasks for 5 min with independence and without an assistive device to improve endurance and safety with standing tasks such as cooking. Outcome: Ongoing Goal: Ambulation - Patient will ambulate 500 feet with independence and without an assistive deviceto improve ability to safely navigate home and community. Outcome: Ongoing Goal: Strength - Patient will verbalize understanding of exercise program. Outcome: Ongoing Alberta Cowart PT , DPT, CLT License #: [id number] * Plan of Care - Leobardo Garcia OT - 01/24/2025 9:01 AM EDT Problem: OT - ADLs Goal: Lower Body Dressing - Patient will complete lower body dressing tasks with standby assistanceusing adaptive equipment/compensatory strategies as needed for improved ability to complete self-care activities. Outcome: Ongoing Goal: Grooming - Patient will complete grooming in standing with supervision for improved ability to safely complete ADLs. Outcome: Ongoing Goal: Toileting - Patient will complete toileting task with supervision and adaptive equipment as needed for improved ability to safely complete self-care activities. Outcome: Ongoing Goal: Bathing - Patient will perform full body bathing routine with standby assistance while seatedfor improved ability to complete self-care activities Outcome: Ongoing Problem: OT - Transfers Goal: Transfers Logroll - Patient will properly utilize logroll technique transfer to EOB with standby assistance, in order to follow precautions and improve participation in ADLs. Outcome: Ongoing Goal: Transfers Toilet/ Bedside Commode - Patient will transfer to/from toilet/bedside commode withsupervision for improved ability to safely complete ADLs. Outcome: Ongoing Goal: Transfers Shower - Patient will demonstrate safe completion of shower transfer to mimic home environment with standby assistance in preparation for safe discharge. Outcome: Ongoing Problem: OT - Balance Goal: Balance - Standing - Patient will perform ~5 minutes of functional task in standing with supervision and good balance to promote safety and improved balance required for self-care activities. Outcome: Ongoing Problem: OT - Endurance Goal: Endurance Functional Mobility - Patient will complete distance needed for common household mobility with no rest breaks for improved tolerance to safely complete I/ADL's Outcome: Ongoing Goal: Endurance Functional Task Standing - Patient will engage in standing functional task for ~5 minutes with supervision to improve activity tolerance necessary for safe ADL completion at recommended discharge destination. Outcome: Ongoing * Plan of Care - Glendy Simms MD - 01/24/2025 7:16 AM EDT Anesthesia Acute Pain Progress Note S: Patient seen and examined at bedside. No acute events overnight. Pain well- controlled with current regimen. Patient complained of mild headache overnight. Denies SOB, nausea, emesis, pruritus, and paresthesias. O: Temp: [97.5 F (36.4 C)-97.6 F (36.4 C)] 97.5 F (36.4 C) Pulse (Heart Rate): [56-63] 56 Resp Rate: [10-16] 12 BP: (121-164)/(56-74) 133/60 O2 Sat (%): [92 %-99 %] 96 % General: NAD Neuro: Alert and oriented, no focal deficits, bilateral lower extremity motor strength 5/5, sensation intact Assessment and Plan: 74 y.o. female s/p Procedure(s) (LRB): COLECTOMY PARTIAL ROBOTIC XI RIGHT (Right) on 01/23/25. Patient received an intrathecal morphine dose for post-op pain control. Doing well with minimal adverse effects. APS will sign off at this time. Please call [phone] or page [phone] with any questions or concerns. Glendy Simms MD Anesthesiology * Nursing Notes - Yoav Schwartz RN - 01/23/2025 3:00 PM EDT On admission to [facility], from PACU a dual RN initial assessment of skin condition was performed by Yoav Schwartz RN and Reyna Maher RN. Skin Assessment: Skin not within defined limits. - Pressure Injury suspected: No - Wound(s) identified: Yes - Consult ordered: No - Photo taken and uploaded into notes in IHIS: Yes Patient admitted from PACU right partial robotic colectomy. Patient has x5 laparoscpic incisions, covered with dermabond and open to air. No other ski issues noted on admission. Bro Score: 20 LDA Added:No Liliia Kostiuk, RN * Plan of Care - KIRBY Dhaliwal - 01/23/2025 2:52 PM EDT Colorectal Surgery Post-Op Check Note S: Jessika Carrillo is a 74 y.o. female who is now status post robotic right colectomy. I came to evaluate the patient after coming up to the hospital floor. Patient reports pain is controlled. Drowsy. Patient denies chest pain, shortness of breath, nausea or vomiting. O: BP 141/68 (BP Location: Left arm, BP Position: Lying) Pulse 61 Temp 97.5 F (36.4 C) (Oral) Resp 14 Ht 1.549 m (5' 1) Wt 85.3 kg (188 lb) SpO2 94% BMI 35.52 kg/m Smoking Status Former : Gen: laying in bed, NAD Lung: no increased work of breathing, on RA Cardiac: regular rate and rhythm Abdomen: soft, appropriately tender to palpation, non-distended; lap surgical incisions c/d/I with derma oviedo : palencia with clear yellow urine Extremities: no cyanosis or edema, SCDs in place A/P: Jessika Carrillo is a 74 y.o. female who is now s/p robotic right colectomy. Patient is recovering well post-operatively. - Out of bed to chair tonight - palencia to continue tonight - pain and nausea control as needed - will continue to monitor KIRBY Dhaliwal * Op Note - AFRICA Thomas - 01/23/2025 12:41 PM EDT Preoperative diagnosis: Ascending Colon Adenocarcinoma Postoperative diagnosis: Ascending Colon Adenocarcinoma Procedure: Robotic Right Hemicolectomy with Intracorporeal Anastomosis Surgeon: Dr. Sachi Rosas Anesthesia: Gen. Via endotracheal tube Complications: None Specimen: Terminal ileum and right colon EBL: Minimal. Drain: None Indications for procedure: Patient presented to colorectal surgery office with recently diagnosed ascending colon adenocarcinoma. Decision was made to proceed with robotic right hemicolectomy. Risks, benefits and potential complications were discussed with patient at length. Details of procedure: The patient came in via ambulatory surgery, was seen by anesthesiology in the preoperative assessment area then taken to the operating room and placed supine on the operating table. The patient's identity was confirmed, sequential compression devices were placed and IV antibiotics were administered. Gen. Anesthesia was administered via endotracheal tube without difficulty. Upon successfull induction of anesthesia and Palencia catheter was inserted sterilely. The operative site was prepped and draped in the usual sterile manner and pneumoperitoneum was established using a 5 mm Opti-Vu port in the left upper quadrant. Upon confirming atraumatic entry, the 5 mm optivue port was converted to 12 mm robotic trocar. Additional 8 mm robotic ports were placed in supra pubic, left lateral and left paraumbilical region and a 5 mm assist port was placed in left flank. We began by retracting the small bowel loops medially to expose ileocolic pedicle. A mesenteric window was created near the origin of the vessels and a white load of robotic stapler was used to divide the vessels at this location. Following this a medial to lateral dissection was performed paying careful attention to avoid injury to right ureter. Once we reached the lateral extent of our dissection, the lateral peritoneal attachments of right colon were divided using sharp dissection. The mesentery of terminal ileum was then freed from its retroperitoneal attachment. The proximal transverse colon was then retracted in caudad dissection and its superior attachments including hepatic flexure were divided using vessel sealer device. At this point, we proceeded with dividing the terminal ileum with Robotic VIDYA stapler about 15 cm from the ileocecal junction. The interventing mesentery was divided using sequential firing of the vessel sealer device. Similarly, transverse colon was divided using Robotic VIDYA stapler. This resultedin complete freeing of the specimen. We now proceeded with an intracorporeal isoperistaltic anastomosis. The terminal ileum was aligned with the transverse colon using a stay suture. Then, an enterotomy was created on each loop of the bowel and an Robotic VIDYA 60 mm stapler was passed into the bowel lumen via these enterotomies. The stapler was fired creating a side to side anastomosis. The resultant common enterotomy was closed using a running 3-0 Stratifix suture. The 12 mm port site was extended to a 5 cm transverse incision. A wound protector device was placedand the specimen was then exteriorized via this site. The fascial incision was closed in layers using running #1 PDS sutures. Finally, the skin was closed using 4-0 Monocryl and Dermabond was applied. The patient tolerated the procedure well, there were no immediate postoperative or post anesthesia complications. Patient was taken from the operating room to recovery room in stable condition. All instrument and sponge counts were correct and I was scrubbed and present throughout the entire case. * Brief Op Note - Giorgio Mares MD - 01/23/2025 11:27 AM EDT Jessika Carrillo ([id number]) PRE OPERATIVE DIAGNOSIS Malignant neoplasm of ascending colon [C18.2] POST OPERATIVE DIAGNOSIS Malignant neoplasm of ascending colon [C18.2] PROCEDURE PERFORMED Procedure(s) (LRB): COLECTOMY PARTIAL ROBOTIC XI RIGHT (Right) PRIMARY CLOSURE Yes INTRAOPERATIVE FINDINGS Proximal right colon mass with tattoo seen distally. Hand sewn isoperistaltic side to side anastomosis. SURGEON Surgeons and Role: * AFRICA Thomas - Primary ANESTHESIOLOGIST Anesthesiologist: George Negron MD; Michael Blank MD Supervisor Plastics Assisting: Tanmay Martinez DDS SURGICAL STAFF Gourmet Coffee Attendant: Whitney Castillo RN Physician Engagement Director: Casi Kinney PA-C Relief Gourmet Coffee Attendant: Nelly Fuentes RN Relief Scrub: Chirag Sunshine; Jessenia Madrigal Scrub Person: Lala Kirkland Fellow: Giorgio Mares MD COMPLICATIONS None ESTIMATED BLOOD LOSS Minimal SPECIMENS ID Type Source Tests Collected by Time Destination 1 : Right colon and terminal ileum Permanent SURG PATH SURG PATH REQUEST AFRICA Thomas 01/23/2025 1043 Colon Resection Operation performed with curative intent Yes Tumor Location (select all that apply) Ascending colon Extent of colon and vascular resection (select all that apply) Right hemicolectomy - ileocolic, right colic (if present) Giorgio Mares MD January 23, 2025 11:27 AM Cosigned by AFRICA Thomas at 01/25/2025 12:41 PM EDT [facility] History of Present illness Narrative* Breann Mar RN - 01/28/2025 12:15 PM EDT PCRM received message from bedside RN asking about home PT. Reviewed EMR, PT recommending OP rehab services. Team placed order for OP rehab. PCRM placed hand off for primary PCRM to schedule and follow up with the patient. ISAIAS Mcneal RN [facility] Float PCRM Pager: [phone] Float Pager: [phone] If any changes to this individualized plan of care during evening and weekend hours and assistance is needed, please page the financial services professional PCRM at [phone]. * Zainab Rosas MD - 01/28/2025 9:13 AM EDT Colorectal Surgery Daily Progress Note Attending: AFRICA Thomas Length of Stay: 5 Surgery: robotic R colectomy 01/23/25 Subjective/Interval events: - N or V, KuB with improved distention +BMs WBC stable O:BP 170/74 (BP Location: Left arm, BP Position: Lying) Pulse 68 Temp 97.8 F (36.6 C) (Oral) Resp 16 Ht 1.549 m (5' 1) Wt 85.3 kg (188 lb) SpO2 95% BMI 35.52 kg/m Smoking Status Former 01/27 0700 - 01/28 0659 In: 780 [P.O.:780] Out: 1600 [Urine:1600] PE: General: NAD, lying in bed Pulm: Respirations easy and non labored Abd: soft, nd, appropriately tender, port sites c/d/I with dermabond Labs: WBC/Hgb/Hct/Plts: 11.33/12.1/36.4/377 (03/29 0308) Bun/Creat/Cl/CO2/Glucose: 10/0.66/104/25/98 (01/29 308) Na/K+/Phos/Mg/Ca: 136/4.2/3.2/1.8/-- (01/29 308) A/P: Jessika Carrillo is a 74 y.o. female with ascending adenocarcinoma s/p robotic right colectomy 01/23/25 Today's Plan - DC today, Will make sure she has OP PT setup Primary Problem/Diagnosis: ascending colon adenocarcinoma s/p robotic right colectomy 01/23/25 +ROBF Drains: none Wound Care: dermabond PT/OT consulted, Activity as tolerated Acute pain Continue multimodal pain regimen. Oxycodone prn Complexity. Obesity, Class II Body mass index is 35.52 kg/m . - Follow with PCP for dietary and lifestyle modifications. Any conditions listed below are present on admission unless otherwise specified. . Essential primary HTN (POA): continue home metoprolol and lisinopril. Start hctz Central Line Indications: No line currently in place Fall Risk: Assessed for patient fall risk and discussed safety measures during rounding. Diet: DIET REGULAR No Carbonated Beverages DVT prophylaxis: Lovenox, Ambulate daily, SCD's. [place]: removed 01/24 Lines: PIV Code status: Full Level of care: Med Surg Planned Discharge date: TBD pending resolution of leukocytosis and more robust bowel function. Dispo- DC today Patient seen with colorectal team, plan of care discussed, and they are in agreement. Zainab Rosas MD * Malick Ricci APRN-RECEIVING ROOM CLERK - 01/27/2025 7:00 AM EDT Colorectal Surgery Daily Progress Note Attending: AFRICA Thomas Length of Stay: 4 Surgery: robotic R colectomy 01/23/25 Subjective/Interval events: Overall reports feeling pretty good. Passing some flatus, but does feeling a little bloated and full. WBC remains elevated at ~12. Vitals are stable and she is afebrile. O:BP 160/72 (BP Location: Left arm, BP Position: Lying) Pulse 71 Temp 98.1 F (36.7 C) (Oral) Resp 14 Ht 1.549 m (5' 1) Wt 85.3 kg (188 lb) SpO2 95% BMI 35.52 kg/m Smoking Status Former 01/26 0700 - 01/27 0659 In: 600 [P.O.:600] Out: 1050 [Urine:1050] PE: General: NAD, lying in bed Pulm: Respirations easy and non labored Abd: soft, nd, appropriately tender, port sites c/d/I with dermabond Labs: WBC/Hgb/Hct/Plts: 11.95/11.7/37.2/379 (01/27 227) Bun/Creat/Cl/CO2/Glucose: 12/0.85/105/23/84 (01/27 227) Na/K+/Phos/Mg/Ca: 136/4.0/3.5/2.1/-- (01/27 227) A/P: Jessika Carrillo is a 74 y.o. female with ascending adenocarcinoma s/p robotic right colectomy 01/23/25 Today's Plan -Resume Hydrochlorothiazide for better BP control -KUB to evaluate small bowel ileus -Leukocytosis, will continue to monitor. If further elevated on Thursday would obtain a CT scan Primary Problem/Diagnosis: ascending colon adenocarcinoma s/p robotic right colectomy 01/23/25 ROBF Drains: none Wound Care: dermabond PT/OT consulted, Activity as tolerated Acute pain Continue multimodal pain regimen. Oxycodone prn Complexity. Obesity, Class II Body mass index is 35.52 kg/m . - Follow with PCP for dietary and lifestyle modifications. Any conditions listed below are present on admission unless otherwise specified. . Essential primary HTN (POA): continue home metoprolol and lisinopril. Start hctz Central Line Indications: No line currently in place Fall Risk: Assessed for patient fall risk and discussed safety measures during rounding. Diet: DIET REGULAR No Carbonated Beverages DVT prophylaxis: Lovenox, Ambulate daily, SCD's. Palencia: removed 01/24 Lines: PIV Code status: Full Level of care: Med Surg Planned Discharge date: TBD pending resolution of leukocytosis and more robust bowel function. Dispo- TBD Patient seen with colorectal team, plan of care discussed, and they are in agreement. KIRBY Madera * Alberta Cowart, PT - 01/26/2025 1:48 PM EDT Acute Physical Therapy Treatment Prior Gross Functional Mobility: independent Current AM-PAC score(s): CURRENT AM-PAC Mobility Raw Score: 23 Based on the above AM-PAC score(s) and PT clinical judgment, patient is a good candidate for discharge to Home with Outpatient Rehab Services (initial 25/05 assist at home (daughters noted they are able to provide) Outpatient PT for improvement in overall strength and balance training) Barriers to discharge home: None Mobility equipment available at home: front-wheeled walker, straight cane, rollator, none used ADL equipment available at home: grab bars, hand held shower hose Equipment needed for discharge: none Current therapy frequency recommendation in acute: PT Therapy Frequency: 1 time a week Activity Recommendations for outside of rehab session: up with Ax1 and FWW. walk 3-4 times a day atleast. encourage sit<>stands at chair. Precautions and Weightbearing Status: Existing Precautions/Restrictions: abdominal, fall No critical lines at this time Patient Safety Communication Prior to Visit: Nursing Subjective: I love the way to get out of bed you taught me. I've been using it and it really helps with pain! Pain: General Pain Documentation (Adult, OB, Peds) Presence of Pain: denies pain/discomfort Presence of Pain Score (Auto-calculated): 0 Pain Location: abdomen, incisional DVPRS (Defense and Veterans Pain Rating Scale) DVPRS: Rest: 0- no pain DVPRS: Activity: 1- mild pain Objective/Observation: Vitals/Vitals Responses to Treatment: stable O2 Device: room air Cognition Overall Cognitive Status: Within Functional Limits Arousal/Alertness: Appropriate responses to stimuli Orientation Level: Oriented X4 Following Commands: Follows all commands and directions without difficulty Safety Judgment: Good awareness of safety precautions Awareness of Errors: Good awareness of errors made Deficits: Fully aware of deficits Attention Span: Appears intact Memory: Appears intact Problem Solving: Able to problem solve independently Extremity Assessments: See PT Evaluation flowsheet for Extremity Measurement updates. Skin and Edema: Balance: Sitting Balance Static Sitting-Level of Assistance: Independent Dynamic Sitting-Level of Assistance: Independent Sitting Balance Skilled Intervention/Details: seated EOB and at chair Standing Balance Static Standing-Level of Assistance: Independent Dynamic Standing-Level of Assistance: Independent Standing Balance Skilled Intervention/Details: standing in room at Edge of chair to move lines and get comfortable prior to sitting. x2 minutes, Mobility Assessment/Intervention: Rolling/Turning Mobility [place] Level: Rolling/Turning: independent Bed Features/Set-up: Rolling/Turning: Flat Skilled Intervention/Details: Rolling/Turning: use of log roll technique Supine to Sit Mobility [place] Level: Supine->Sit: independent Bed Features/Set-up: Supine->Sit: Flat Skilled Intervention/Details: Supine->Sit: use of log roll technique Sit to Supine Mobility [place] Level: Sit->Supine: independent Bed Features/Set-up: Sit->Supine: Flat Skilled Intervention/Details: Sit->Supine: use of log roll technique Transfer Assessment/Intervention: Sit to Stand Transfer [place] Level: Sit->Stand: independent Skilled Intervention/Details: Sit->Stand: from chair and EOB Stand to Sit Transfer [place] Level: Stand->Sit: independent Skilled Intervention/Details: Stand->Sit: to EOB and chair Bed-Chair Transfer [place] Level: Bed<->Chair: independent Skilled Intervention/Details: Bed<->Chair: walked around bed x 10 feet to chair on other sideof the room without the use of the FWW. did demonstrate bilateral trendelenberg Gait/Functional Mobility Assessment/Intervention: Gait Assessment [place] Level: Gait: modified independence Assistive Device: Gait: gait belt, front-wheeled walker Ambulation Distance (Feet): 800 Skilled Intervention/Details - Gait: demonstrated improved mike this session from previous session Stairs Assessment/Intervention: Outcome Score(s): CURRENT [facility] Basic Mobility Inpatient Short Form Turning over in bed: 4 - No Assistance Moving from lying on back to sittin - No Assistance Moving to and from bed to chair: 4 - No Assistance Sitting/standing from chair: 4 - No Assistance Walk in hospital room: 4 - No Assistance Climbing 3-5 steps with a railin - A Little Assistance CURRENT [facility] Mobility Raw Score: 23 CURRENT [facility] Mobility Functional Limitation: 11.20% Impaired in Basic Mobility Interventions: Intervention 1 Intervention Name: sit to stands from chair Sets/Reps/Duration: 1 x 8 reps ( to fatigue) Details: educated to perform 1 set 3 x a day to fatigue for improvement in lower body strength. Assessment & Plan: Jessika demonstrated improvement in ability this session with perfect execution of log roll technique. Her mike was improved and she demonstrated very strong gait with the use of the FWW. As she noted that she felt more comfortable walking with the walker, utilizzed this during the session. She was able to walk 10 feet without the walker at the end of the session demonstrating B trendelenberg but overall stable gait with no LOB. Patient Instruction/Education this session: Learners: Patient, Family Education provided: Home exercise program Teaching method: Verbal Education/Instruction, Demonstration Learner response: Applies knowledge, States/Identifies/Teaches back, Returns demonstration Plan for next session: progress ambulation without the use of the FWW Acute PT Goals Plan of Care by Alberta Cowart PT at 01/26/2025 1:48 PM Version 1 of 1 Problem: PT - General Goals Goal: Supine <-> Sit Transfers - Patient will perform supine to/from sit transfers with independence and without use of hospital bed features in order to improve functional mobility and safety. Outcome: Met Goal: Sit <-> Stand Transfers - Patient will perform sit to/from stand transfers with independence and without an assistive device in order to improve functional mobility and safety. Outcome: Met Goal: Standing Endurance/Balance - Patient will perform standing balance tasks for 5 min with independence and without an assistive device to improve endurance and safety with standing tasks such as cooking. Outcome: Met Goal: Ambulation - Patient will ambulate 500 feet with independence and without an assistive deviceto improve ability to safely navigate home and community. Outcome: Progressing Goal: Strength - Patient will verbalize understanding of exercise program. Outcome: Met Alberta Cowart PT , DPT, CLT License #: [id number] PT treatment consisted of the following to progress towards the above goal(s): PT Evaluation and Treatment Time Therapeutic Activity Time Entry: 15 Treating Therapist: Alberta Cowart PT , DPT, CLT License #: [id number] Additional Details: PT Co-Eval/Treatment Information Co-evaluation/co-treatment performed?: No simultaneous skilled care performed PPE used during patient interaction: gloves Patient location at end of session: chair Alarms on at end of session: RN aware, none altered Needs in reach. Time In: 1348 Time Out: 1403 Total Visit Time: 15 minutes Total Treatment Time (skilled, billable minutes): 15 minutes Upon discontinuation of Acute Care Physical Therapy Services or patient discharge from the hospitalthis note represents the current Physical Therapy Discharge Summary. * Malick Ricci, POLISHER AND SANDER-RECEIVING ROOM CLERK - 01/26/2025 7:15 AM EDT Colorectal Surgery Daily Progress Note Attending: AFRICA Thomsa Length of Stay: 3 Surgery: robotic R colectomy 01/23/25 Subjective/Interval events: Episode of emesis yesterday afternoon, feeling a little better today. Reports she is starting to have more of appetite. Having BMs, that are slightly blood tinged. O:BP 139/63 (BP Location: Left arm, BP Position: Lying) Pulse 70 Temp 97.6 F (36.4 C) (Oral) Resp 14 Ht 1.549 m (5' 1) Wt 85.3 kg (188 lb) SpO2 93% BMI 35.52 kg/m Smoking Status Former 01/25 0700 - 01/26 0659 In: 1893.8 [P.O.:800; I.V.:1058.3] Out: 1475 [Urine:800] PE: General: NAD, lying in bed Pulm: Respirations easy and non labored Abd: soft, nd, appropriately tender, port sites c/d/I with dermabond Labs: WBC/Hgb/Hct/Plts: 11.52/12.6/39.2/355 (01/26 307) Bun/Creat/Cl/CO2/Glucose: 9/0.53/105/27/109 (01/26 307) Na/K+/Phos/Mg/Ca: 137/4.3/2.6/2.2/-- (01/26 307) A/P: Jessika Carrillo is a 74 y.o. female with ascending adenocarcinoma s/p robotic right colectomy 01/23/25 Today's Plan -Resume lovenox -Clears this AM. If tolerating will give regular for dinner and SL MIV. Primary Problem/Diagnosis: ascending colon adenocarcinoma s/p robotic right colectomy 01/23/25 ROBF Drains: none Wound Care: dermabond PT/OT consulted, Activity as tolerated Acute pain Continue multimodal pain regimen. Oxycodone prn Complexity. Obesity, Class II Body mass index is 35.52 kg/m . - Follow with PCP for dietary and lifestyle modifications. Any conditions listed below are present on admission unless otherwise specified. . Essential primary HTN (POA): continue home metoprolol and lisinopril. Hold hctz CENTRAL LINES: Central Line Indications: No line currently in place Fall Risk: Assessed for patient fall risk and discussed safety measures during rounding. Diet: DIET CLEAR LIQUID Oral Supplement; No Carbonated Beverages DIET REGULAR No Carbonated Beverages DVT prophylaxis: Lovenox, Ambulate daily, SCD's. [place]: removed 01/24 Lines: PIV Code status: Full Level of care: Med Surg Planned Discharge date: Tomorrow, 01/27 Dispo- discharge today Patient seen with colorectal team, plan of care discussed, and they are in agreement. KIRBY Madera * Grace Garcias - 01/25/2025 3:22 PM EDT Introduced self and role of the welder assistant to patient/family. Provided emotional and spiritual support and the patient/family responded by sharing their experience and discussed the following: Patient sitting in chair, no family present. Patient reports that she is doing ok, has family here to support her who are just not in the room at this time. Offered active listening, comfort, supportand prayer. Patient/family encouraged to request a welder assistant as needed. Chaplains are available in-house 24 hours a day and 7 days a week. For urgent matters in the [facility],please page [phone]. If the request is not urgent, please enter a consult. Consults are responded to within 24 hours. Bobbin Collector Grace Garcias, Crow,MAHL, BCC Senior [facility] Bass 12, 18, 19 25/05 On-Call Pager [facility] ([phone]) 01/25/25 1500 Clinical Encounter Type Visited With Patient Visit Type Introduction Pastoral Time Spent 15 min Referral (Rounding) Jew Encounters Jew Needs Prayer Spiritual Assessment Emotional Observation Coping well Hope Observation Specific hope focus Support Observation By Family Interventions Provided Active listening;Prayer;Supportive presence Facilitated Verbalization of feelings Explored Expectations Hydroelectric Plant Mechanical Engineer Education Hydroelectric Plant Mechanical Engineer Service Available Yes Educated Patient Plan of Care Continue Visiting PRN * Shila Lantigua, WAREHOUSE PULLER - 01/25/2025 1:41 PM EDTSummary: Psychosocial Assessment Psychosocial Assessment Per chart review, patient is a 74 y.o., female, who was 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 SW met with patient and daughters to introduce self, explain social staff worker role during inpatient stay, and answer questions. Patient was alert and oriented x4 and agreeable to SW visit. Contact Information: Parent Partner Name: Please see care team Social Work Contact Name: Please see care team Advance Directive Discussion: Patient does not have any advance directives on file. SW inquired whether or not patient is interested in completing health care power of patent attorney and/or living will paperwork during this admission. SW reviewed the documents, discussed the benefits of completing them, and provided education re: Legal NOK (LNOK). Patient expressed interest in completing the documents,but requested additional time to review the paperwork. Per patient's request, copies of both documents were provided for them to review. Patient informed of SW availability to assist in completing documents during inpatient hospitalization or at a future appointment. SW advised paperwork does NOT have to be completed at [facility] and canbe completed in the community by either a public notary or witnessed by two individuals not relatedto the patient. Patient voiced understanding and stated plan to reach out to SW should they requireadditional information and/or assistance in completing the documents. Legal NOK: Pt LNOK would be her three adult children: DaughterDon, Daughter, Christal Carreno, Daughter, Kaia Dinh, Emotional/Psychological: Mood: congruent to situation, congruent to affect Current Interpersonal Conduct/Behavior: appropriate to situation, cooperative Mental Health Conditions/Symptoms: denies Previous Mental Health Treatment: not applicable Emotional/Psychological Comments: Pt denies any history of or current concerns related to mental health or emotional needs. Pt endorses good support systems and coping skills. Distress Screen: Deferred to allow for pt to rest with family at bedside. Pt endorses good support,limited stressors, and denies any distressing concerns related to physical, emotional, sexual, or spiritual well-being at this time. Patient Coping/Stress Concerns: Patient Coping/Stress Concerns: No Patient Personal Strengths: able to adapt, courageous, expressive of emotions, expressive of needs,positive attitude, strong support system, future/goal oriented, motivated Sources Of Support: adult child(jerald), other family members Reaction To Health Status: adjusting, accepting Understanding Of Condition And Treatment: adequate understanding of medical condition, adequate understanding of treatment Living Environment: Lives With: alone Living Arrangement and Set Up: house (1 level w/ basement; Ramp to enter) Caregiver Coping/Stress Concerns: Caregiver Coping/Stress Concerns: No Reaction To Health Status: accepting, adjusting, hopeful, motivated Employment/Financial: Employed?: Retired Employment/Financial Concerns: no Source Of Income: social security Food Insecurity: Within the past 12 months, did you worry that your food would run out before you got money to buy more?: No Within the past 12 months, did the food you bought just not last and you didn t have money to get more?: No Housing/Utilities: Do you have housing?: Yes Are you worried about losing your housing?: No Within the past 12 months, have you or your family members you live with been unable to get utilities (heat, electricity) when it was really needed?: No Transportation: Within the past 12 months, has lack of transportation kept you from medical appointments, getting your medicines, non-medical meetings or appointments, work, or from getting things that you need?: No Alcohol Use: Q1: How often do you have a drink containing alcohol?: Never Substance Use: How many times in the past year have you used illegal drugs?: Never Interpersonal Safety: Do you feel physically and emotionally safe where you currently live?: Patient unable to answer Within the past 12 months, have you been hit, slapped, kicked or otherwise physically hurt by someone?: Patient unable to answer Within the past 12 months, have you been humiliated or emotionally abused in other ways by your partner or ex-partner?: Patient unable to answer Community Resources: No community resource linkage identified at this time. Patient denied the needfor resource information and new referrals. Pt was encouraged to contact SW should this status change in the future. Anticipated Discharge Plan: Anticipated Discharge Plan: Home Pt confirms that they will have transportation home following discharge and wishes to return home. Medical Team Considerations: None SW Interventions/Recommendations: Service SW name and contact information placed on white board in patient's room to contact as needed. SW will continue to remain available to provide assistance and support as needed during inpatient stay. Informed pt of 25/05 availability of SW if needs change. Reviewed AD and identified LNOK. Identified pt access to resources relevant to [facility]. SW provided emotional support through active listening,and the normalization and validation of feelings and emotions. ALEKS Henry IRP Game Breeding Farm Manager PH: [phone] For Evening (4:30pm-8am), Weekend, and Holiday SW needs please call [phone] or page [phone]. * France Rooney RN - 01/25/2025 10:33 AM EDT Jessika Carrillo's POC discussed this morning in multidisciplinary rounds. Patient will discharge today as anticipated. [facility] All four prescriptions have been processed through insurance for pickler helper. Total co-pay is $4.00. PCRM met with patient at the bedside to discussdischarge planning. Patient is not interested in additional PT/OT upon discharge. Family reports they are working on ordering her a tub transfer bench/shower chair to accommodate her set up. No additional questions or concerns from patient, family or bedside RM Nelly at this time. Please refer to final discharge note completed by Natalia Etienne on 01/24/2025 for additional discharge details. PCRM will continue to follow and provide support as needed. France ESPARZA, RN, PCRM Phone #: [phone] For evening and weekend discharge assistance please page the financial services professional PCRM at [phone]. Addendum at 1504: Per Dr. Ocampo, patient will not be discharging today. * AMIRAH Fung - 01/24/2025 1:25 PM EDTSummary: KARINE Advance Directives Advance Directives Consult Reason for Consult: Patient wanting to complete advance directives. Referral Source[facility] Advance Directives Discussion: SW met with pt who was A&Ox4 at the time of visit. Patient does not have any advance directives on file. SW inquired whether or not patient is interested in completing health care power of patent attorney and/or living will paperwork during this admission. SW reviewed the documents, discussed the benefits of completing them, and provided education re: Legal NOK (LNOK).Patient expressed interest in completing the documents, but requested additional time to review thepaperwork. Per patient's request, copies of both documents were provided for them to review. Patient informed of SW availability to assist in completing documents during inpatient hospitalization or at a future appointment. SW advised paperwork does NOT have to be completed at [facility] and canbe completed in the community by either a public notary or witnessed by two individuals not relatedto the patient. Patient voiced understanding and stated plan to reach out to SW should they requireadditional information and/or assistance in completing the documents. Legal NOK: Patient has three adult children: Don (ph: [phone]), Christal (ph: [phone]), and Kaia (ph:[phone]). She reported her spouse is . * Miracle Etienne RN - 01/24/2025 9:55 AM EDT Jessika BISHOP discussed this am in multidisciplinary rounds. The pt was admitted overnight, 74 y.o. 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 Pt now POD 1, awaiting bowel function. Pt from home, plan to return once medically stable. PT/OT c/s for eval. Dispo TBD. PCRM to continue to follow, and provide support. Natalia Etienne RN PCRM [phone] For evening and weekend discharge assistance please page the financial services professional PCRM at [phone]. * Alberta Cowart, PT - 01/24/2025 9:23 AM EDT Acute Physical Therapy Evaluation Prior Gross Functional Mobility: independent Current AM-PAC score(s): CURRENT AM-PAC Mobility Raw Score: 21 Based on the above AM-PAC score(s) and PT clinical judgment, patient is a good candidate for discharge to Home with Outpatient Rehab Services (initial 25/05 assist at home (daughters noted they are able to provide) Outpatient PT for improvement in overall strength and balance training) Barriers to discharge home: None Mobility equipment available at home: front-wheeled walker, straight cane, rollator, none used ADL equipment available at home: grab bars, hand held shower hose Equipment needed for discharge: none Current therapy frequency recommendation in acute: PT Therapy Frequency: 4 times a week Activity Recommendations for outside of rehab session: up with Ax1 and gait belt. walk 2-3 times this date and up in chait 2-3 times for 2-3 hours Precautions and Weightbearing Status: Existing Precautions/Restrictions: fall No critical lines at this time Patient Safety Communication Prior to Visit: Nursing Subjective: Jessika reports that she has no pain and is resting comfortably in bed when the therapy team entered the room Pain: General Pain Documentation (Adult, OB, Peds) Presence of Pain: denies pain/discomfort Presence of Pain Score (Auto-calculated): 0 Pain Location: abdomen, incisional DVPRS (Defense and Veterans Pain Rating Scale) DVPRS: Rest: 0- no pain DVPRS: Activity: 4- mild pain Home Setting Residence: House (1st floor setup) Lives With: alone () Patient receives help from : none Patient reported support for discharge plannin hour supervision, 24 hour physical assistance (daughters will be taking turn staying with her as well as close friends and neighbors from her [employer] that have offered to help as much as needed) First floor setup: bedroom, tub shower, grab bars (usually uses tub) Second floor setup: walk in shower Number of stairs to enter home: ramp entrance Number of stairs in home: 0 Mobility Equipment Available: front-wheeled walker, straight cane, rollator, none used ADL Equipment Available: grab bars, hand held shower hose Previous Level of Function Gross Functional Mobility: independent Assistive Device: none used Prior level ADL Overview: Independent with all ADLs Bed Mobility: independent Transfers: independent Stairs: independent Ambulation: independent with all needs Prior Level of Function Details: denies falls Objective/Observation: Vitals/Vitals Responses to Treatment: stable O2 Device: room air Cognition Overall Cognitive Status: Within Functional Limits Arousal/Alertness: Appropriate responses to stimuli Orientation Level: Oriented X4 Following Commands: Follows all commands and directions without difficulty Safety Judgment: Good awareness of safety precautions Awareness of Errors: Good awareness of errors made Deficits: Fully aware of deficits Attention Span: Appears intact Memory: Appears intact Problem Solving: Able to problem solve independently Vision Screen Currently wearing corrective lenses: No Visual Impairments Observed?: No Speech Speech: no gross deficits noted Successful Methods (Communication Strategies): verbal speech Hearing Hearing: no gross deficits noted Extremity Assessments: RLE Assessment RLE Assessment: Within Functional Limits LLE Assessment LLE Assessment: Within Functional Limits Sensation Overall Sensation: Intact Sensation Comments: denies any numbness/tingling Mobility Assessment: Supine to Sit Mobility [place] Level: Supine->Sit: stand-by assist Bed Features/Set-up: Supine->Sit: Use of bed rail, Head of bed elevated Skilled Rationale: Verbal cues, Hand placement, Positioning, Technique of activity Skilled Intervention/Details: Supine->Sit: educated on use of log roll technique Sit to Supine Mobility [place] Level: Sit->Supine: not tested Skilled Intervention/Details: Sit->Supine: seated in chair at end of session Balance: Sitting Balance Static Sitting-Level of Assistance: Supervision Dynamic Sitting-Level of Assistance: Contact guard Sitting Balance Skilled Intervention/Details: seated at EOB and in chair Standing Balance Static Standing-Level of Assistance: Stand-by assist Dynamic Standing-Level of Assistance: Contact guard Standing-Balance Support: Gait belt Skilled Rationale: Verbal cues, Full extension to upright positioning/posture Transfer Assessment: Sit to Stand Transfer [place] Level: Sit->Stand: stand-by assist Assistive Device: Sit->Stand: gait belt Skilled Rationale: Verbal cues, Hand placement Skilled Intervention/Details: Sit->Stand: from EOB Stand to Sit Transfer [place] Level: Stand->Sit: stand-by assist Assistive Device: Stand->Sit: gait belt Skilled Rationale: Verbal cues, Hand placement Skilled Intervention/Details: Stand->Sit: 1x to chair Gait/Functional Mobility: Gait Assessment [place] Level: Gait: contact guard assist (contact guard to standby assist) Assistive Device: Gait: gait belt (initially with handheld assist but progressed to ambulation without assist and) Ambulation Distance (Feet): 450 Gait Deviations Identified: decreased mike (decreased R LE stance time, apears antalgic however patient denies pain of the R LE, slight R LE trendelenberg) Gait Skilled Rationale: verbal Stairs: Outcome Score(s): CURRENT [facility] Basic Mobility Inpatient Short Form Turning over in bed: 4 - No Assistance Moving from lying on back to sittin - No Assistance Moving to and from bed to chair: 3 - A Little Assistance Sitting/standing from chair: 4 - No Assistance Walk in hospital room: 3 - A Little Assistance Climbing 3-5 steps with a railin - A Little Assistance CURRENT [facility] Mobility Raw Score: 21 CURRENT [facility] Mobility Functional Limitation: 28.97% Impaired in Basic Mobility Interventions: Assessment & Plan: Patient was admitted for colon cancer and seen for therapy evaluation related to discharge recommendations. Exam findings include impairments in: Strength, Balance, Transfers, Gait/Locomotion, Aerobic capacity/endurance. These impairments contribute to functional limitations including Ambulation/locomotionpain, Decreased ambulation distance/endurance, Difficulty stair climbing/descent, Increased fall risk, Difficulty ambulating on uneven/dynamic surfaces, Difficulty with bed mobility, Difficulty with transfers, Difficulty getting off the floor, Decreased functional mobility. Current clinical presentation is Evolving - changing/inconsistent clinical characteristics (Moderate). Patient history factors impacting Plan Of Care include s/p surgery for colectomy. Patient will benefit from skilled physical therapy to address these impairments, functional limitations, and participation restrictions and has good rehab potential to achieve therapy goals. Planned Therapy Interventions: bed mobility training, endurance, functional activity tolerance, gait training, strengthening, transfer training Patient Instruction/Education this session: Learners: Patient, Adult Child/Children Education provided: Activity outside of therapy, Bed mobility, Gait belt use, Gait training safety,Fall precautions, Role of this discipline, Safety Teaching method: Audiovisual, Verbal Education/Instruction, Teach back Learner response: Applies knowledge, States/Identifies/Teaches back Learning preferences: Auditory, Visual Learning considerations: No barriers/ready to learn Plan for next session: progress ambulation, balance trainingi Acute PT Goals Plan of Care by Alberta Cowart PT at 01/24/2025 9:23 AM Version 1 of 1 Problem: PT - General Goals Goal: Supine <-> Sit Transfers - Patient will perform supine to/from sit transfers with independence and without use of hospital bed features in order to improve functional mobility and safety. Outcome: Ongoing Goal: Sit <-> Stand Transfers - Patient will perform sit to/from stand transfers with independence and without an assistive device in order to improve functional mobility and safety. Outcome: Ongoing Goal: Standing Endurance/Balance - Patient will perform standing balance tasks for 5 min with independence and without an assistive device to improve endurance and safety with standing tasks such as cooking. Outcome: Ongoing Goal: Ambulation - Patient will ambulate 500 feet with independence and without an assistive deviceto improve ability to safely navigate home and community. Outcome: Ongoing Goal: Strength - Patient will verbalize understanding of exercise program. Outcome: Ongoing Alberta Cowart PT , DPT, CLT License #: [id number] PT treatment consisted of the following to progress towards the above goal(s): PT Evaluation and Treatment Time PT Evaluation (Moderate) Time Entry: 22 Evaluating Therapist: Alberta Cowart PT , DINAH, CLT License #: [id number] Additional Details: PT Co-Eval/Treatment Information Co-evaluation/co-treatment performed?: Yes, simultaneous billable skilled care was necessary due tomedical complexity and functional deficits Other discipline: OT Rationale for need to co-eval/treat: coordination Co-treatment goal focus: balance, mobility Evaluation Complexity Components History: High (3 personal factors and/or comorbidities) Body Systems Review: High (Addressing a total of 4 or more elements) Clinical Presentation: Evolving - changing/inconsistent clinical characteristics (Moderate) Clinical Decision Making Complexity: Moderate Time In: 900 Time Out: 922 Total Visit Time: 22 minutes Total Treatment Time (skilled, billable minutes): 22 minutes PPE used during patient interaction: gloves Patient location at end of session: chair Alarms on at end of session: chair alarm Needs in reach. Upon discontinuation of Acute Care Physical Therapy Services or patient discharge from the hospitalthis note represents the current Physical Therapy Discharge Summary. * Leobardorafa Garcia, OT - 01/24/2025 9:01 AM EDT Acute Occupational Therapy Evaluation Prior Gross Functional Mobility: independent Current AM-PAC score(s): CURRENT AM-PAC Activity Raw Score: 17 Based on the above AM-PAC score(s) and OT clinical judgment, discharge destination recommendation is: Home with Home Health (Initial 24 supervision/support) Barriers to discharge home: Patient needs assistance with functional mobility, Patient needs assistance with ADLs, Patient needs assistance with IADLs (see note below) Mobility equipment available at home: front-wheeled walker, straight cane, rollator, none used ADL equipment available at home: grab bars, hand held shower hose Equipment recommendations for discharge: tub bench Equipment issued: Current therapy frequency recommendation(s) in acute: 3 times a week Activity Recommendations for outside of rehab session: 01/24: x1 assist with gait belt and FWW as needed Precautions and Weightbearing Status: OT Existing Precautions/Restrictions: fall No critical lines at this time Patient Safety Communication Prior to Visit: Nursing Subjective: pt supine in bed upon arrival and agreeable for OT evaluation this date; daughter and son in law present in room throughout Pain: General Pain Documentation (Adult, OB, Peds) Presence of Pain: denies pain/discomfort Presence of Pain Score (Auto-calculated): 0 Pain Location: abdomen, incisional DVPRS (Defense and Veterans Pain Rating Scale) DVPRS: Rest: 0- no pain DVPRS: Activity: 4- mild pain Home Setting Residence: House (1st floor setup) Lives With: alone () Patient receives help from : none Patient reported support for discharge plannin hour supervision, 24 hour physical assistance (daughters will be taking turn staying with her as well as close friends and neighbors from her [place] that have offered to help as much as needed) First floor setup: bedroom, tub shower, grab bars (usually uses tub) Second floor setup: walk in shower Number of stairs to enter home: ramp entrance Number of stairs in home: 0 Mobility Equipment Available: front-wheeled walker, straight cane, rollator, none used ADL Equipment Available: grab bars, hand held shower hose Previous Level of Function Gross Functional Mobility: independent Assistive Device: none used Prior level ADL Overview: Independent with all ADLs Bed Mobility: independent Transfers: independent Stairs: independent Ambulation: independent with all needs Prior Level of Function Details: denies falls IADL History Primary Language: [place] Objective/Observation: Vitals/Vitals Responses to Treatment: WFL O2 Device: room air Vision Screen Currently wearing corrective lenses: No Visual Impairments Observed?: No Speech Speech: no gross deficits noted Successful Methods (Communication Strategies): verbal speech Hearing Hearing: no gross deficits noted Cognition Overall Cognitive Status: Within Functional Limits Arousal/Alertness: Appropriate responses to stimuli Orientation Level: Oriented X4 Following Commands: Follows all commands and directions without difficulty Safety Judgment: Good awareness of safety precautions Awareness of Errors: Good awareness of errors made Deficits: Fully aware of deficits Attention Span: Appears intact Memory: Appears intact Problem Solving: Able to problem solve independently ADLs: ADL Assessment: LE Dressing Deficit ADL Anticipated Performance (ADLs not directly observed this session): Eating, Grooming, Bathing, Toileting, UE Dressing Eating Assistance: Independent Grooming Assistance: Stand by Bathing Assistance: Moderate UE Dressing Assistance: Set up supervision LE Dressing Assistance: Moderate LE Dressing Location: edge of bed LE Dressing Deficit: Don/doff R sock, Don/doff L sock, Balance, Activity tolerance, Pain LE Dressing Skilled Rationale (Verbal/Tactile/Visual/Demonstration): Compensatory techniques, Cues for increased safety, Technique of activity, Facilitate positioning, Facilitate postural control LE Dressing Intervention/Details: pt unable to reach compensatory figure 4 technique this date to promote LB dressing; pt educated on long-handled adaptive equipment however defers need at this time and reports she will have the support she needs at home Toilet Assistance: Contact guard assist Extremity Assessments: RUE Assessment RUE Assessment: Within Functional Limits Right UE Assessment Details: generalized deconditioning LUE Assessment LUE Assessment: Within Functional Limits Left UE Assessment Details: generalized deconditioning Balance: Sitting Balance Static Sitting-Level of Assistance: Supervision Dynamic Sitting-Level of Assistance: Contact guard Sitting Balance Skilled Intervention/Details: pt seated unsupported EOB with no LOB; required CGA when attempting to reach figure 4 position for LB dressing Standing Balance Static Standing-Level of Assistance: Stand-by assist Dynamic Standing-Level of Assistance: Stand-by assist, Contact guard Standing-Balance Support: Gait belt, No upper extremity support Skilled Rationale: Verbal cues, Full extension to upright positioning/posture Standing Balance Skilled Intervention/Details: pt progressed from R hand held assist to no UE support; good upright posture Neuro: Sensation Overall Sensation: Intact Sensation Comments: pt denies n/t Skin and Edema: Mobility Assessment: Supine to Sit Mobility [place] Level: Supine->Sit: stand-by assist Bed Features/Set-up: Supine->Sit: Use of bed rail, Head of bed elevated Skilled Rationale: Positioning, Hand placement, Verbal cues, Technique of activity, Cues for increased safety Skilled Intervention/Details: Supine->Sit: x1 to R EOB; pt's bed slightly elevated to mimic homesetup; verbal cues for log rolling technique with good carryover; increased effort required Sit to Supine Mobility [place] Level: Sit->Supine: not tested Skilled Intervention/Details: Sit->Supine: pt seated in armed chair at end of session Transfer Assessment: Sit to Stand Transfer [place] Level: Sit->Stand: stand-by assist Assistive Device: Sit->Stand: gait belt Skilled Rationale: Positioning, Verbal cues, Full extension to upright positioning/posture Skilled Intervention/Details: Sit->Stand: x1 from EOB; good upright posture Stand to Sit Transfer [place] Level: Stand->Sit: stand-by assist Assistive Device: Stand->Sit: gait belt, armed chair Skilled Rationale: Positioning, Hand placement, Verbal cues, Controlled descent for sitting Skilled Intervention/Details: Stand->Sit: x1 to armed chair; verbal cues to reach back to assistwith controlled descent with fair eccentric control; verbal cues for breathing strategies during descent to assist with pain management Functional Mobility: Functional Mobility [place] Level: Functional Mobility/Gait: (CGA - SBA) Assistive Device: Functional Mobility/Gait: gait belt, hand held assist (R hand held assist progressing to no UE support) Functional Mobility Distance: Distance needed for common household mobility Ambulation Distance (Feet): 450 Functional Mobility Deficits: Activity tolerance, Balance, Decreased step length, Generalized weakness, Pain, Slowed gait speed Functional Mobility Skilled Rationale: Verbal cues, Technique of activity Skilled Intervention/Details - Functional Mobility/Gait: pt ambulated into hallway initially requiring R hand held assist to promote stability however pt able to progress to SBA with no UE support; slowed gait speed noted however pt reports that speed soto she is very similar to baseline, but her stabillity is wobbly Outcome Score(s): CURRENT [facility] Daily Activity Inpatient Short Form Putting on/Taking Off Lower Body Clothin - A Lot of Assistance Bathin - A Lot of Assistance Toiletin - A Little Assistance Putting on/Taking Off Upper Body Clothin - A Little Assistance Groomin - A Little Assistance Eatin - No Assistance CURRENT [facility] Activity Raw Score: 17 CURRENT [facility] Activity Functional Limitation/Modifier: 50.11% Currently Impaired in Daily Activity- CK Assessment & Plan: Patient was admitted for POD1 R colectomy and seen for therapy evaluation related to post-op deconditioning 2/2 disease process impacting ADLs. Exam findings include impairments in: balance, endurance, pain with movement, posture, reaction speed, strength, transfers. These impairments contribute to occupational performance limitations including bathing, dressing, grooming, toileting, functional mobility, ADL transfers. The following factors impact the plan of care: POD1 Patient will benefit from skilled occupational therapy to address these impairments, occupational performance limitations, and participation restrictions. Patient's rehab potential is: good. Planned Therapy Interventions (OT Eval): ADL retraining, IADL retraining, balance training, bed mobility training, functional activity tolerance, strengthening, transfer training Patient Instruction/Education this session: Learners: Patient Education provided: Role of this discipline, Plan of care Teaching method: Verbal Education/Instruction Learner response: Applies knowledge Learning preferences: Auditory Learning considerations: No barriers/ready to learn Plan for next session: progress LB/standing ADLs and bathing routine; functional transfers/mobilitytolerance; AE as needed Acute OT Goals Plan of Care by Leobardo Garcia OT at 01/24/2025 9:01 AM Version 1 of 1 Problem: OT - ADLs Goal: Lower Body Dressing - Patient will complete lower body dressing tasks with standby assistanceusing adaptive equipment/compensatory strategies as needed for improved ability to complete self-care activities. Outcome: Ongoing Goal: Grooming - Patient will complete grooming in standing with supervision for improved ability to safely complete ADLs. Outcome: Ongoing Goal: Toileting - Patient will complete toileting task with supervision and adaptive equipment as needed for improved ability to safely complete self-care activities. Outcome: Ongoing Goal: Bathing - Patient will perform full body bathing routine with standby assistance while seatedfor improved ability to complete self-care activities Outcome: Ongoing Problem: OT - Transfers Goal: Transfers Logroll - Patient will properly utilize logroll technique transfer to EOB with standby assistance, in order to follow precautions and improve participation in ADLs. Outcome: Ongoing Goal: Transfers Toilet/ Bedside Commode - Patient will transfer to/from toilet/bedside commode withsupervision for improved ability to safely complete ADLs. Outcome: Ongoing Goal: Transfers Shower - Patient will demonstrate safe completion of shower transfer to mimic home environment with standby assistance in preparation for safe discharge. Outcome: Ongoing Problem: OT - Balance Goal: Balance - Standing - Patient will perform ~5 minutes of functional task in standing with supervision and good balance to promote safety and improved balance required for self-care activities. Outcome: Ongoing Problem: OT - Endurance Goal: Endurance Functional Mobility - Patient will complete distance needed for common household mobility with no rest breaks for improved tolerance to safely complete I/ADL's Outcome: Ongoing Goal: Endurance Functional Task Standing - Patient will engage in standing functional task for ~5 minutes with supervision to improve activity tolerance necessary for safe ADL completion at recommended discharge destination. Outcome: Ongoing OT treatment consisted of the following to work and progress towards the above goal(s): OT Evaluation and Treatment Time OT Evaluation (Moderate) Time Entry: Evaluating Therapist: Leobardo Garcia OT Additional Details: OT Co-Eval/Treatment Information Co-evaluation/co-treatment performed?: Yes, simultaneous billable skilled care was necessary due tomedical complexity and functional deficits Other discipline: PT Rationale for need to co-eval/treat: postural control Co-treatment goal focus: self-care, balance, endurance OT Evaluation Complexity Occupational Profile and Client History: Moderate - expanded history Assessment of Occupational Performance: Moderate (3-5 performance deficits) Clinical Decision/Performance Deficits: Moderate (detailed assessments w/several treatment options) Time In: 900 Time Out: 921 Total Visit Time: 21 minutes Total Treatment Time (skilled, billable minutes): 21 minutes PPE used during patient interaction: gloves Patient location at end of session: chair Alarms on at end of session: chair alarm Needs in reach. Upon discontinuation of Acute Care Occupational Therapy Services or patient discharge from the hospital this note represents the current Occupational Therapy Discharge Summary. * Vidhya Lucas, RAMBO-RECEIVING ROOM CLERK - 01/24/2025 7:37 AM EDT Colorectal Surgery Daily Progress Note Attending: AFRICA Thomas Length of Stay: 1 Surgery: robotic right colectomy 01/23/25 Subjective/Interval events: No acute events. Denies pain or nausea. No bowel function O:BP 140/69 (BP Location: Left arm, BP Position: Lying) Pulse 58 Temp 97.8 F (36.6 C) (Axillary) Resp 12 Ht 1.549 m (5' 1) Wt 85.3 kg (188 lb) SpO2 95% BMI 35.52 kg/m Smoking Status Former 01/23 0700 - 01/24 0659 In: 3317.4 [P.O.:340; I.V.:2827.4] Out: 730 [Urine:730] PE: General: NAD, lying in bed Pulm: Respirations easy and non labored Abd: soft, nd, appropriately tender, ls site c/d/I with dermabond, mild ecchymosis surrounding leftupper extraction site : palencia with clear yellow urine Labs: WBC/Hgb/Hct/Plts: 11.10/11.9/36.5/279 (01/24 310) Bun/Creat/Cl/CO2/Glucose: 13/0.78/102/23/109 (01/24 310) Na/K+/Phos/Mg/Ca: 133/5.3/4.1/1.8/-- (01/24 310) A/P: Jessika Carrillo is a 74 y.o. female with ascending adenocarcinoma s/p robotic right colectomy 01/23/25 Today's Plan SLIV AROBF Advance to regular diet as tolerated Void trial Diagnosis: ascending colon adenocarcinoma Surgery: robotic right colectomy 01/23/25 AROBF Drains: none Wound Care: dermabond PT/OT consulted, Activity as tolerated Acute pain Continue multimodal pain regimen. Oxycodone prn Complexity. Hyponatremia - Secondary to fluid shifts. Monitor. Obesity, Class II Body mass index is 35.52 kg/m . - Follow with PCP for dietary and lifestyle modifications. Any conditions listed below are present on admission unless otherwise specified. . Essential Primary Hypertension (POA): continue home metoprolol, hold lisinopril/hctz CENTRAL LINES: Central Line Indications: No line currently in place Can line/s be removed today? Select all that apply No line in place at this time Dressing/s Clean/Dry/Intact?: Select all that apply No line currently in place Fall Risk: Assessed for patient fall risk and discussed safety measures during rounding. Diet: DIET REGULAR Low Fiber DVT prophylaxis: Lovenox, Ambulate daily, SCD's. Palencia: removal 01/24 Lines: PIV Code status: Full Level of care: Med Surg Planned Discharge date: pending surgical recovery Dispo- inpatient Patient seen with colorectal team, plan of care discussed, and they are in agreement. KIRBY Dhaliwal [facility]* Nursing Notes - Miracle Etienne RN - 01/27/2025 9:53 AM EDT 01/27/25 0953 Final Discharge Planning Discharge Disposition Home Plan Plan pt to DC to home in am. Patient/Family In Agreement With Plan yes Plan Comments see note Transport Request Mode of Transfer Private Vehicle [facility] PCR Discharge Note Jessika Carrillo was discussed in medical rounds for discharge to home in am. PCRM met with the patient to discuss final discharge plan. The pt will DC to home independently. She will have outpt follow-up. She will have JTO follow-up. Services for Discharge Jessika Carrillo is to discharge to home with support provided by family. She will be discharging with outpt services. Consults with Final Discharge Recommendations NA Lines/Tubes/Drains/Wounds/Supplies The patient does not require any line/tube/drain or wound supplies. Medications Medical team will reconcile her medications at discharge. Durable Medical Equipment No DME needs were identified during this admission. Transportation Transportation to home will be provided by family. Education Patient and family instructed on the discharge plan. Follow Up(s) See AVS. 02/21/2025 1:45 PM [facility] Rosas Division of Colon & Rectal Surgery [facility] Risk of Readmission: 2.9% Risk of Readmission: 2.9 Category Reference: Low: 0% - 5% Medium - Low: 5.1% - 10% Medium - High: 10.1% - 16% High: 16.1% - 100% Readmission Risk Interventions Documented: Yes Was a referral made to an Ambulatory PCRM? Yes, Eleonora Mcgarry The PCRM has updated the patient's nurse Reyna regarding the final discharge plan. This pt will discharge to home in am. The pt is to follow all appointments, and instructions as listed in the AVS. No other discharge needs have been identified at this time. Patient and family are in agreement with final discharge plan. Please refer to AVS and medical record for additional information. Jessika Gerardo has been instructed to call with questions. PCRM will continue to follow with medical team for any additional discharge planning needs. For evening and weekend discharge assistance please page the financial services professional PCRM at [phone]. PCRM to continue to follow and provide support. Natalia Etienne RN Float PCRM [phone] [facility]03-28-[facility] Nurse Note* Nursing Notes - Reyna Maher RN - 01/27/2025 9:10 AM EDT 0900- Lovenox education given pt able to perform return demonstration correctly at this time. [facility]03-27[facility] Plan of care note* Plan of Care - Rickie Armstrong RN - 01/26/2025 6:26 PM EDT Patient has performed amazing walking 5 times has chewed gum and has been tolerating a clear liquiddiet. She has had no nausea and no emesis. However her abdomen remains tympanic and she has not passed gas since yesterday. Patient remains at risk for emesis. However Bp has come down and more controlled. Patient is progressing as expected. [facility]03-27[facility] Plan of care note* Plan of Care - Alberta Cowart PT - 01/26/2025 1:48 PM EDT Problem: PT - General Goals Goal: Supine <-> Sit Transfers - Patient will perform supine to/from sit transfers with independence and without use of hospital bed features in order to improve functional mobility and safety. Outcome: Met Goal: Sit <-> Stand Transfers - Patient will perform sit to/from stand transfers with independence and without an assistive device in order to improve functional mobility and safety. Outcome: Met Goal: Standing Endurance/Balance - Patient will perform standing balance tasks for 5 min with independence and without an assistive device to improve endurance and safety with standing tasks such as cooking. Outcome: Met Goal: Ambulation - Patient will ambulate 500 feet with independence and without an assistive deviceto improve ability to safely navigate home and community. Outcome: Progressing Goal: Strength - Patient will verbalize understanding of exercise program. Outcome: Met Alberta Cowart PT , DPT, CLT License #: [id number] [facility]03-26-[facility] Nurse Note* Nursing Notes - Lianna Charles RN - 01/25/2025 8:09 PM EDT 195 (R) PIV Infiltrated and removed. Pictured in chart along with abdominal sites 2007 Contacted financial services professional regarding [id number] Jessika Leid. Pt's BP 191/111 (MAP 144). Hx HTN. Resting in bed. Denied pain/symptoms. No PRN for increased BP. Looks like she was elevated during the day as well. CB [phone] [id number] Inquired about tele order due to labetalol admin instructions 0420 Contacted financial services professional regarding [id number] Jessika Leid. Pt reports having three loose black stools on shift. Patient states that this has been ongoing postoperatively. She was wondering if there was anything to help w/ BM. [phone] [facility] Plan of care note* Plan of Care - Nelly Ramirez RN - 01/25/2025 5:32 PM EDT Problem: Adult Inpatient Plan of Care Goal: Optimal Comfort and Wellbeing Intervention: Monitor Pain and Promote Comfort Flowsheets (Taken 01/25/2025 1731) Pain Management Interventions: [id number] dosing utilized diversional activity provided pain management plan reviewed with patient/caregiver premedicated for activity [facility]03-[facility] Nurse Note* Nursing Notes - Nelly Ramirez RN - 01/25/2025 3:54 PM EDT This RN notified Dr. Rica Ocmapo via secure chat, patient with 550 ml emesis after ambulation. IV nausea medicine given. Dr. Strauss at bedside to assess. New orders place, NPO and XR A/P. This Rn will continue to monitor. [facility]03-[facility] Nurse Note* Nursing Notes - Yoav Schwartz RN - 01/24/2025 4:40 PM EDT Patient had 3 bowel movements today. Bowel movements look bloody, picture of last BM taken and uploaded to chart. Vidhya Lucas NP notified. [facility]03-[facility] Nurse Note* Nursing Notes - Miracle Etienne RN - 01/24/2025 3:12 PM EDT 01/24/25 1512 Final Discharge Planning Discharge Disposition Home Services at Discharge Outpatient clinical services (ie: lab draws, transfusions, injectables) Plan Plan pt to DC to home in am as she remains stable. Patient/Family In Agreement With Plan yes Plan Comments see note Transport Request Mode of Transfer Private Vehicle [facility] PCRM Discharge Note Jessika Carrillo was discussed in medical rounds for discharge to home in am as she remains stable. PCRM met with the patient and family to discuss final discharge plan. The pt will DC to home independently and follow-up outpt. Services for Discharge Jessika Carrillo is to discharge to home with support provided by family. She will be discharging with outpt services. Consults with Final Discharge Recommendations NA Lines/Tubes/Drains/Wounds/Supplies The patient does not require any line/tube/drain or wound supplies. Medications Medical team will reconcile her medications at discharge. The scripts were sent electronically to local pharmacy. Durable Medical Equipment No DME needs were identified during this admission. Transportation Transportation to home will be provided by family. Education Patient and family instructed on the discharge plan. Follow Up(s) See AVS. 02/21/2025 1:45 PM Sachi Rosas Division of Colon & Rectal Surgery Arrive at: Arrive to [facility] First Floor Registration [facility] Risk of Readmission: 2.9% Risk of Readmission: 2.9 Category Reference: Low: 0% - 5% Medium - Low: 5.1% - 10% Medium - High: 10.1% - 16% High: 16.1% - 100% Readmission Risk Interventions Documented: Yes ACO patient- NO Was a referral made to an Ambulatory PCRM? no The PCRM has updated the patient's nurse Yoav regarding the final discharge plan. This pt will discharge to home in am. The pt is to follow all appointments, and instructions as listed in the AVS. No other discharge needs have been identified at this time. Patient and family are in agreement with final discharge plan. Please refer to AVS and medical record for additional information. Jessika Carrillo has been instructed to call with questions. PCRM will continue to follow with medical team for any additional discharge planning needs. For evening and weekend discharge assistance please page the financial services professional PCRM at [phone]. PCRM to continue to follow and provide support. Natalia Etienne RN Float PCRM [phone] Discharge instructions* Discharge Instructions* KIRBY Dhaliwal - 01/24/2025 11:09 AM EDT Images from the original note were not included. COLORECTAL ADDITIONAL CONTACTS For Concerns During Weekend or Evening Hours: -If you have questions or concerns call and ask the rivet machine operator to page the vice president education financial services professional. Reminder: [employer] messaging goes unmonitored during evenings and weekends. Any concerns or questions during this time, please call using instructions above. Clinic Office Main Number: [phone] Colorectal non-Cancer: [phone] Fax Line: [phone] Parent Partner: Akua Azevedo ([facility]) BILLING RELATED QUESTIONS, please call [phone] ENTEROSTOMAL THERAPY RN + OSTOMY Clinic+ IMPORTANT: Automated Post Discharge Call Patient Information As part of your care, we will call you at the primary number we have on file, the day after you aredischarged at 9:30 a.m. to check on you. Please expect a two-minute automated telephone call from the hospital. This call will come from [phone]. If you are unable to answer or do not receive the automated call, please call [phone] to complete this important evaluation. By answering the phone evaluation, a [facility] nurse will be notified if you have any questions or concerns and call you back. If you have an immediate medical need call your doctor s office, or if you have a medical emergencycall 911. * Medications* KIRBY Dhaliwal - 01/24/2025 11:08 AM EDT Pain Medication A prescription for pain medicine may be sent home with you. Do not drive while taking prescription pain medicine. Eat when taking pain medicines to avoid nausea. When your pain decreases switch to over the counter acetaminophen, like Tylenol. Follow the dose aslabel directs. * Discharge Instr - Activity* KIRBY Dhaliwal - 01/24/2025 11:08 AM EDT Activity No Driving for two weeks. No Driving while on pain medications. No lifting over 10 pounds for 6 weeks. No pushing, pulling or straining of abdominal muscles for 6 weeks. Activity as tolerated. Walking is encouraged however no strenuous exercise. You may shower. Do not take a tub bath, go swimming, or use a hot tub until instructed to do so. * Discharge Instr - Diet* KIRBY Dhaliwal - 01/24/2025 11:08 AM EDT Regular Diet to help you maintain your health and control your weight. Choose healthy fats and oils such ascanola or olive oils, and good sources of fiber and carbohydrates. Choose lean meats or vegetables proteins. Avoid adding salt to your foods. Increase daily intake of fruits and vegetables. You may find it easier to eat smaller meals throughout the day. Advance your diet as tolerated. * Discharge Instr - Notify* KIRBY Dhaliwal - 01/24/2025 11:08 AM EDT For Concerns During Weekend or Evening Hours: -If you have questions or concerns call and ask the rivet machine operator to have the general surgery chief resident paged. Reminder: [employer] messaging goes unmonitored during evenings and weekends. Any concerns or questions during this time, please call using instructions above. Clinic Office Main Number: [phone] NOTIFY PHYSICIAN: SYMPTOMS WOUND INFECTION - Increase in pain in or around wound - Change in the amount of drainage - Change in the color of drainage - Change in the odor of drainage - Warmth in the tissues around the wound - Red streaks on the skin near the wound - Fever (temperature greater than 101 degrees F) - Incision separates or opens up UNRELIEVED PAIN + - Increased or unrelieved pain NAUSEA/VOMITING + - Nausea and vomiting that continues for more than 24 hours - Not able to keep medicine down - Not able to keep fluids down SYMPTOMS OF DVT + DVT = Deep Vein Thrombus, or Blood Clot -Any Tender, Swollen, or Reddened Areas from Your Groin to Your Heels -Numbness or Tingling In Groin or Calf -The Skin on Your Leg Looks Pale or Blue or It Feels Cold To Touch -Numbness or Tingling In Groin or Calf -Any Shortness of Breath -Chest Pain -Fever or Chills SYMPTOMS OF GI BLEED + Call your doctor or nurse if you have signs of slow blood loss such as: -Black tarry bowel movements -Cold hands and feet -Weakness -Dizzyness Call 911 if you suddenly have signs of blood loss such as: -Vomiting blood -Fast heart rate -Feeling faint or blacking out -Passing bright red blood from your rectum * Discharge Instr - Wound Care* KIRBY Dhaliwal - 01/24/2025 11:08 AM EDT Incision located: abdomen FOR YOUR INCISION CARE + - You do not need to cover your incision. - Watch for increasing redness, pus-like discharge or apart of the incision. - Do not let the water from the shower stream hit the incision directly. Dermabond A special skin glue called Dermabond is used to close and cover your incision. It is to stay in place for 10 to 14 days and wears off on its own. The glue is waterproof but you should not soak your incision or take a tub bath for 2 weeks because it could loosen the glue too soon. Do not pick or peel the glue off your skin. [facility] Note* Nursing Notes - Miracle Etienne RN - 01/24/2025 10:45 AM EDT 01/24/25 1045 Referral Information Arrived From operating room Readmission Information Was patient readmitted within 30 Days? No Information Source Information Source patient ;child Information Source Name Lucy Rosen Information Source Number [phone] Outpatient Providers Outpatient Providers Updated In IHIS Yes Contact Information Parent Partner/SW Added to Care Team Yes This Submarine Cable Equipment Technician is Primary Parent Partner/SW No Parent Partner Name Natalia Etienne Parent Partner's Social Work Contact Name Cluster coverage. Game Breeding Farm Manager's Phone Number see care team. Living Environment Lives With alone (daughter Don lives close by) Living Arrangement and Set Up house Provides Primary Care For no one Caregiving Concerns NA Primary Care Provided By self Support System Immediate family;Congregational;Extended family;Friends;Neighbors Able to Return to Prior Arrangements yes Functional Status Patient's Functional Status Prior To This Admission? Independent Are There Status Changes This Admission? No Changes Observed Since Admission? No Changes Observed Concerns With Patient Being Able To Care For Themselves At Discharge? Has Assistance (Friend, Family, Skilled Provider) Who Is Patient's Primary Contact For Discharge Planning, Education And Care For Discharge? self Can Support Person Meet The Care Needs Of The Patient? Yes Employment/Financial Employed? Retired Employment Details NA Employment/Financial Concerns no Employment/Financial Comments NA Source Of Income social security Financial Concerns none Insurance Medical Insurance Verified Yes Prescription Coverage Yes Pharmacy updated in IHIS Yes Initial Discharge Planning Home Care Services (ENGINE ASSEMBLY SUPERVISOR) No Home Therapies (ENGINE ASSEMBLY SUPERVISOR) None DME (ENGINE ASSEMBLY SUPERVISOR) None Medical Supplies (ENGINE ASSEMBLY SUPERVISOR) None Patient Goal for Discharge Get better Anticipated Services at Discharge Outpatient clinical services (ie: lab draws, transfusions, injectables) Anticipated Changes Related to Illness none Current Discharge Risk chronically ill Transportation Available car Discharge Coordination/Progress pt to DC to home once medically stable. Home Care Services (ENGINE ASSEMBLY SUPERVISOR) Additional Home Care Services (ENGINE ASSEMBLY SUPERVISOR) no Assessment/Concerns to be Addressed Concerns To Be Addressed no discharge needs identified;denies needs/concerns at this time Concerns Comments see note PCRM Initial Assessment Met with the pt and daughter Christal to complete the initial assessment. Explained role and function of PCRM in multidisciplinary team. Contact number provided for questions. Demographic information reviewed with patient/family and confirmed as correct. The pt is alert and oriented and able to answer questions. She lives in her home alone but her daughter Don lives close by. She also has great support from her friends, neighbors and zoroastrian. She hs no HHC or DME and denies needs. Family will transport to home. She follows with Dr Rosas. Reason for Admission: 74 y.o. 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 Estimated length of stay: 2-3 days. Advance directives Patient does not have Advanced Directives on File Lines/Drains/Tubes PIV Initial PCRM Discharge Planning DC to home independently. Final plan will be determined closer to discharge, pending therapy and medical team recommendations. Patient/family verbalized understanding and agreement with the plan of care. Patient/family have no questions at this time. PCRM will continue to follow patient with multidisciplinary team for ongoing assessment of needs and for discharge planning. Medical team updated. PCRM to continue to follow and provide support. Natalia Etienne RN Float PCRM [phone] For evening and weekend discharge assistance please page the financial services professional PCRM at [phone]. [facility]03-25-[facility] Plan of care note* Plan of Care - Alberta Cowart, PT - 01/24/2025 9:23 AM EDT Problem: PT - General Goals Goal: Supine <-> Sit Transfers - Patient will perform supine to/from sit transfers with independence and without use of hospital bed features in order to improve functional mobility and safety. Outcome: Ongoing Goal: Sit <-> Stand Transfers - Patient will perform sit to/from stand transfers with independence and without an assistive device in order to improve functional mobility and safety. Outcome: Ongoing Goal: Standing Endurance/Balance - Patient will perform standing balance tasks for 5 min with independence and without an assistive device to improve endurance and safety with standing tasks such as cooking. Outcome: Ongoing Goal: Ambulation - Patient will ambulate 500 feet with independence and without an assistive deviceto improve ability to safely navigate home and community. Outcome: Ongoing Goal: Strength - Patient will verbalize understanding of exercise program. Outcome: Ongoing Alberta Cowart PT , DPT, CLT License #: [id number] [facility]03-[facility] Plan of care note* Plan of Care - Leobardo Garcia OT - 01/24/2025 9:01 AM EDT Problem: OT - ADLs Goal: Lower Body Dressing - Patient will complete lower body dressing tasks with standby assistanceusing adaptive equipment/compensatory strategies as needed for improved ability to complete self-care activities. Outcome: Ongoing Goal: Grooming - Patient will complete grooming in standing with supervision for improved ability to safely complete ADLs. Outcome: Ongoing Goal: Toileting - Patient will complete toileting task with supervision and adaptive equipment as needed for improved ability to safely complete self-care activities. Outcome: Ongoing Goal: Bathing - Patient will perform full body bathing routine with standby assistance while seatedfor improved ability to complete self-care activities Outcome: Ongoing Problem: OT - Transfers Goal: Transfers Logroll - Patient will properly utilize logroll technique transfer to EOB with standby assistance, in order to follow precautions and improve participation in ADLs. Outcome: Ongoing Goal: Transfers Toilet/ Bedside Commode - Patient will transfer to/from toilet/bedside commode withsupervision for improved ability to safely complete ADLs. Outcome: Ongoing Goal: Transfers Shower - Patient will demonstrate safe completion of shower transfer to mimic home environment with standby assistance in preparation for safe discharge. Outcome: Ongoing Problem: OT - Balance Goal: Balance - Standing - Patient will perform ~5 minutes of functional task in standing with supervision and good balance to promote safety and improved balance required for self-care activities. Outcome: Ongoing Problem: OT - Endurance Goal: Endurance Functional Mobility - Patient will complete distance needed for common household mobility with no rest breaks for improved tolerance to safely complete I/ADL's Outcome: Ongoing Goal: Endurance Functional Task Standing - Patient will engage in standing functional task for ~5 minutes with supervision to improve activity tolerance necessary for safe ADL completion at recommended discharge destination. Outcome: Ongoing [facility]03-25-2025 Plan of care note* Plan of Care - Glendy Simms MD - 01/24/2025 7:16 AM EDT Anesthesia Acute Pain Progress Note S: Patient seen and examined at bedside. No acute events overnight. Pain well- controlled with current regimen. Patient complained of mild headache overnight. Denies SOB, nausea, emesis, pruritus, and paresthesias. O: Temp: [97.5 F (36.4 C)-97.6 F (36.4 C)] 97.5 F (36.4 C) Pulse (Heart Rate): [56-63] 56 Resp Rate: [10-16] 12 BP: (121-164)/(56-74) 133/60 O2 Sat (%): [92 %-99 %] 96 % General: NAD Neuro: Alert and oriented, no focal deficits, bilateral lower extremity motor strength 5/5, sensation intact Assessment and Plan: 74 y.o. female s/p Procedure(s) (LRB): COLECTOMY PARTIAL ROBOTIC XI RIGHT (Right) on 01/23/25. Patient received an intrathecal morphine dose for post-op pain control. Doing well with minimal adverse effects. APS will sign off at this time. Please call [phone] or page [phone] with any questions or concerns. Glendy Simms MD Anesthesiology [facility] Work Phone: [phone] Nurse Note* Nursing Notes - Yoav Schwartz RN - 01/23/2025 3:00 PM EDT On admission to [facility], from PACU a dual RN initial assessment of skin condition was performed by Yoav Schwartz RN and Reyna Maher RN. Skin Assessment: Skin not within defined limits. - Pressure Injury suspected: No - Wound(s) identified: Yes - Consult ordered: No - Photo taken and uploaded into notes in IHIS: Yes Patient admitted from PACU right partial robotic colectomy. Patient has x5 laparoscpic incisions, covered with dermabond and open to air. No other ski issues noted on admission. Bro Score: 20 LDA Added:No Yoav Schwartz RN [facility]03-24-2025 Plan of care note* Plan of Care - KIRBY Dhaliwal - 01/23/2025 2:52 PM EDT Colorectal Surgery Post-Op Check Note S: Jessika Carrillo is a 74 y.o. female who is now status post robotic right colectomy. I came to evaluate the patient after coming up to the hospital floor. Patient reports pain is controlled. Drowsy. Patient denies chest pain, shortness of breath, nausea or vomiting. O: BP 141/68 (BP Location: Left arm, BP Position: Lying) Pulse 61 Temp 97.5 F (36.4 C) (Oral) Resp 14 Ht 1.549 m (5' 1) Wt 85.3 kg (188 lb) SpO2 94% BMI 35.52 kg/m Smoking Status Former : Gen: laying in bed, NAD Lung: no increased work of breathing, on RA Cardiac: regular rate and rhythm Abdomen: soft, appropriately tender to palpation, non-distended; lap surgical incisions c/d/I with derma oviedo : palencia with clear yellow urine Extremities: no cyanosis or edema, SCDs in place A/P: Jessika Carrillo is a 74 y.o. female who is now s/p robotic right colectomy. Patient is recovering well post-operatively. - Out of bed to chair tonight - palencia to continue tonight - pain and nausea control as needed - will continue to monitor KIRBY Dhaliwal [facility]03-24-2025 Surgery Postoperative evaluation and management note* Op Note - AFRICA Thomas - 01/23/2025 12:41 PM EDT Preoperative diagnosis: Ascending Colon Adenocarcinoma Postoperative diagnosis: Ascending Colon Adenocarcinoma Procedure: Robotic Right Hemicolectomy with Intracorporeal Anastomosis Surgeon: Dr. Sachi Rosas Anesthesia: Gen. Via endotracheal tube Complications: None Specimen: Terminal ileum and right colon EBL: Minimal. Drain: None Indications for procedure: Patient presented to colorectal surgery office with recently diagnosed ascending colon adenocarcinoma. Decision was made to proceed with robotic right hemicolectomy. Risks, benefits and potential complications were discussed with patient at length. Details of procedure: The patient came in via ambulatory surgery, was seen by anesthesiology in the preoperative assessment area then taken to the operating room and placed supine on the operating table. The patient's identity was confirmed, sequential compression devices were placed and IV antibiotics were administered. Gen. Anesthesia was administered via endotracheal tube without difficulty. Upon successfull induction of anesthesia and Palencia catheter was inserted sterilely. The operative site was prepped and draped in the usual sterile manner and pneumoperitoneum was established using a 5 mm Opti-Vu port in the left upper quadrant. Upon confirming atraumatic entry, the 5 mm optivue port was converted to 12 mm robotic trocar. Additional 8 mm robotic ports were placed in supra pubic, left lateral and left paraumbilical region and a 5 mm assist port was placed in left flank. We began by retracting the small bowel loops medially to expose ileocolic pedicle. A mesenteric window was created near the origin of the vessels and a white load of robotic stapler was used to divide the vessels at this location. Following this a medial to lateral dissection was performed paying careful attention to avoid injury to right ureter. Once we reached the lateral extent of our dissection, the lateral peritoneal attachments of right colon were divided using sharp dissection. The mesentery of terminal ileum was then freed from its retroperitoneal attachment. The proximal transverse colon was then retracted in caudad dissection and its superior attachments including hepatic flexure were divided using vessel sealer device. At this point, we proceeded with dividing the terminal ileum with Robotic VIDYA stapler about 15 cm from the ileocecal junction. The interventing mesentery was divided using sequential firing of the vessel sealer device. Similarly, transverse colon was divided using Robotic VIDYA stapler. This resultedin complete freeing of the specimen. We now proceeded with an intracorporeal isoperistaltic anastomosis. The terminal ileum was aligned with the transverse colon using a stay suture. Then, an enterotomy was created on each loop of the bowel and an Robotic VIDYA 60 mm stapler was passed into the bowel lumen via these enterotomies. The stapler was fired creating a side to side anastomosis. The resultant common enterotomy was closed using a running 3-0 Stratifix suture. The 12 mm port site was extended to a 5 cm transverse incision. A wound protector device was placedand the specimen was then exteriorized via this site. The fascial incision was closed in layers using running #1 PDS sutures. Finally, the skin was closed using 4-0 Monocryl and Dermabond was applied. The patient tolerated the procedure well, there were no immediate postoperative or post anesthesia complications. Patient was taken from the operating room to recovery room in stable condition. All instrument and sponge counts were correct and I was scrubbed and present throughout the entire case. [facility]03-24-2025 Surgery Postoperative evaluation and management note* Brief Op Note - Giorgio Mares MD - 01/23/2025 11:27 AM EDT Jessika Carrillo ([id number]) PRE OPERATIVE DIAGNOSIS Malignant neoplasm of ascending colon [C18.2] POST OPERATIVE DIAGNOSIS Malignant neoplasm of ascending colon [C18.2] PROCEDURE PERFORMED Procedure(s) (LRB): COLECTOMY PARTIAL ROBOTIC XI RIGHT (Right) PRIMARY CLOSURE Yes INTRAOPERATIVE FINDINGS Proximal right colon mass with tattoo seen distally. Hand sewn isoperistaltic side to side anastomosis. SURGEON Surgeons and Role: * AFRICA Thomas - Primary ANESTHESIOLOGIST Anesthesiologist: George Negron MD; Michael Blank MD Supervisor Plastics Assisting: Tanmay Martinez DDS SURGICAL STAFF [employer] Attendant: Whitney Castillo RN Physician Engagement Director: Casi Kinney PA-C Relief [employer] Attendant: Nelly Fuentes RN Relief Scrub: Chirag Sunshine; Jessenia Madrigal Scrub Person: Lala Kirkland Fellow: Giorgio Mares MD COMPLICATIONS None ESTIMATED BLOOD LOSS Minimal SPECIMENS ID Type Source Tests Collected by Time Destination 1 : Right colon and terminal ileum Permanent SURG PATH SURG PATH REQUEST AFRICA Thomas 01/23/2025 1043 Colon Resection Operation performed with curative intent Yes Tumor Location (select all that apply) Ascending colon Extent of colon and vascular resection (select all that apply) Right hemicolectomy - ileocolic, right colic (if present) Giorgio Mares MD January 23, 2025 11:27 AM Cosigned by AFRICA Thomas at 01/25/2025 12:41 PM EDT [facility] Work Phone: 1(940) 486-514903-24-2025 Nurse Surgical operation note* Whitney Castillo RN - 01/23/2025 8:18 AM EDT 0810 Family notified of surgery start 937 Family updated 1040 Hand-off report sent to PACU charge nurse 1058 PACU given notice of arrival 1132 Patient extubated and transported to PACU with anesthesia at bedside [facility] oxygen inhalation[facility] Note* Whitney Castillo RN - 01/23/2025 8:18 AM EDT 0810 Family notified of surgery start 937 Family updated 1040 Hand-off report sent to PACU charge nurse 1058 PACU given notice of arrival 1132 Patient extubated and transported to PACU with anesthesia at bedside on oxygen inhalation. * Maurisio Finn RN - 01/23/2025 6:21 AM EDT Patient denies hx of chemo and radiation. Patient denies metal or foreign objects in body. EXCEPT Rknee replacement. Patient denies hx of seizure or stroke. [facility] Surgical operation note* Maurisio Finn RN - 01/23/2025 6:21 AM EDT Patient denies hx of chemo and radiation. Patient denies metal or foreign objects in body. EXCEPT Rknee replacement. Patient denies hx of seizure or stroke. [facility]03-11-2025 History and physical note* Mackenzie Reyes APRN-RECEIVING ROOM CLERK - 01/10/2025 3:00 PM EDT Images from the original note were not included. PREOPERATIVE ASSESSMENT H&P [facility] Name: Jessika Carrillo Date of Surgery: 01/23/2025 . Surgeon: AFRICA Thomas Pre-Op Diagnosis: Malignant neoplasm of ascending colon Planned Procedure: Laparoscopic / Robotic Right Colectomy Anesthesia Type: planned for general anesthesia SUMMARY AND RECOMMENDATIONS The patient is medically optimized at the time of this visit. Anesthesia/Medical Assessment/plan: Reviewed patient's history, assessment & ECG findings with Anesthesiologist Dr. Spann Strict NPO Diet recommended. Jessika Carrillo is a 74 y.o. year old patient with a history the following diagnoses which increase her risk for perioperative complications. she being referred for pre operative evaluation and optimization. The relative status of the medical conditions are further explained in this note. 1. Preop exam for internal medicine 2. Malignant neoplasm of ascending colon 3. Essential hypertension 4. Mixed hyperlipidemia 5. Abnormal coagulation profile ANESTHESIA and AIRWAY Anesthesia alerts: NELSON Risk, ERAS, PONV Personal history of problems related to anesthesia (ex.Malignant Hyperthermia): no Family History of problems related to anesthesia (ex.Malignant Hyperthermia: no Pacer/AICD: no Parenteral Access: no Glaucoma: no NELSON: no STOP-BANG Risk Assessment Do you snore - Yes Are you frequently tired during the day? - No Have you been observed gasping or choking while asleep? - No Do you have high blood pressure? - Yes Age more than 50? - Yes Gender male? - No Neck circumference greater than 40 cm? - No Neck Circumference (cm): 36 BMI more then 35? - Yes Body mass index is 36.15 kg/m . Mallampati class - 2 TM Distance - 3 FB Oral Opening - 3 FB Teeth - chehalis dentition Cervical range of motion - within normal limits Neck circumference - Neck Circumference (cm): 36 Allergies and adverse drug reactions Not on File ANESTHESIA/AIRWAY ASSESSMENT AND PLAN- # Anesthesia Alerts as above if applicable # Patient is at Intermediate (3-4) risk for NELSON # Previous Airway Details below (if available) CARDIOVASCULAR Do you take Aspirin or other antiplatelet agents? no Do you take anti-coagulations? no Beta Leena: yes - metoprolol Patient denies a history of cardiac events or LA. Denies chest pain, palpitation or worsening SOB over the last few months ASSESSMENT AND PLAN- # Functional status - METS: Moderate: 4-7 METS functional status. 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 # Pre-operative Risk Evaluation: Patient Meets the Following RCRI Criteria (RCRI): *High-risk surgery: 1 criteria suggesting a 6.0% risk of major cardiac events or within 30 days. Jessika Carrillo is at a Elevated risk based on the RCRI above. Patient can achieve METS > 4. Per ACC/AHA guidelines, the patient requires no further testing at this time. The patient is at elevated risk for the following perioperative complications not captured by the RCRI: N/A # Essential HTN: Appears poorly controlled on lisinopril-hydrochlorothiazide and metoprolol ; initial BP today 178/82 - Per patient, when she checks this at home, it is controlled on current regimen. - Denies dizziness, SOB, activity intolerance, CP, palpitations, etc. - hold lisinopril-hydrochlorothiazide 24 hours prior to surgery Rechecked at end of visit and BP is 128/72 BP Readings from Last 3 Encounters: 01/10/25 128/72 12/31/24 176/79 12/06/24 177/77 # Hyperlipidemia: stable without medication. CARDIAC TESTING and REVIEW OF PREVIOUS CARDIAC TESTING/IMAGING EKG (01/10/2025): Sinus bradycardia with a HR of 57. No LVH. No ST changes noted as interpreted by me PULMONARY ASSESSMENT AND PLAN: # None Denies Asthma, COPD, or other chronic lung disease Denies recent cough cold or fever PULMONARY TESTING AND REVIEW OF RECORDS if any SOCIAL/SUBSTANCE USE HISTORY Social History Tobacco Use Smoking Status Former Current packs/day: 0.00 Types: Cigarettes Quit date: 12/06/2019 Years since quittin.1 Smokeless Tobacco Never Social History Substance and Sexual Activity Alcohol Use Yes Comment: wine twice per year Social History Substance and Sexual Activity Drug Use Never Does the patient Vape? no ASSESSMENT AND PLAN: # No active use Encouraged to stop all ETOH use at least 5 days prior to surgery and Marijuana use 3 days prior to surgery. HEMATOLOGY History of DVT/PE - no In case of surgeons plan or unforseen emergency, are you okay with receiving blood products? - yes Have you ever been diagnosed with any bleeding disorders in the past (Hemophilia A or B, Von Willebrand Disease)? - No Patient has not received blood transfusions in the last 90 days. ASSESSMENT AND PLAN # None Recommend standard VTE prophylaxis inpatient DIABETES and ENDOCRINOLOGY ASSESSMENT AND PLAN Denies DM 1 or 2 or thyroid disease No results found for: HGBA1C ADDITIONAL DIAGNOSES OF CONCERN # Malignant neoplasm of ascending colon: managed with upcoming surgery. 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 MELD PELD: 6 at 01/10/2025 3:42 PM Calculated from: Serum Creatinine: 0.68 mg/dL (Using min of 1 mg/dL) at 01/10/2025 3:42 PM Total Bilirubin: 0.4 mg/dL (Using min of 1 mg/dL) at 01/10/2025 3:42 PM INR(ratio): 0.9 (Using min of 1) at 01/10/2025 3:42 PM Age: 74 years Denies issues with GERD, CKD, or other chronic conditions. ADVANCED CARE PLANNING (for elderly and frail patients) # Code Status: Not on file FULL CODE MEDICATIONS Current Outpatient Medications Medication Sig Acetaminophen 325 MG tablet Take 1 tablet by mouth as needed for Mild Pain. Calcium citrate 950 (200 Ca) MG tablet Take 1 tablet by mouth daily every morning. lisinopril-hydrochlorothiazide 20-25 MG per tablet Take 1 tablet by mouth daily every morning. Metoprolol succinate 50 MG tablet XL Take 1 tablet by mouth daily every morning. metroNIDAZOLE 500 MG tablet On the day before your surgery: Take 2 tablets at 1 pm, 2 tablets at 2 pm, and 2 tablets at 9 pm Neomycin 500 MG tablet On the day before your surgery: Take 2 tablets at 1 pm, 2 tablets at 2 pm, and 2 tablets at 9 pm Turmeric 5-1000 MG capsule Take 1,000 mg by mouth daily every morning. Medication A/P - Instructions for preoperative medications given to the patient in AVS. LABS Orders Placed This Encounter CBC, EDIF, PLATELET COMPREHENSIVE METABOLIC PANEL PROTIME-INR PTT CBC AND ELECTRONIC DIFF Type and Cross -Preadmission PREPARE TO TRANSFUSE OR RED BLOOD CELLS: 2 Units MN ECG, CLINIC PERFORMED Lab A/P - Personally reviewed pertinent imaging and testing Lab Results Component Value Date SODIUM 139 01/10/2025 POTASSIUM 4.3 01/10/2025 CHLORIDE 99 01/10/2025 CO2 30 01/10/2025 BUN 17 01/10/2025 CREATSERUM 0.68 01/10/2025 GLUCOSE 80 01/10/2025 Lab Results Component Value Date WBC 7.81 01/10/2025 HGB 13.8 01/10/2025 HCT 43.6 01/10/2025 PLATELET 375 01/10/2025 MCV 93.0 01/10/2025 Lab Results Component Value Date INR 0.9 01/10/2025 PT 12.3 01/10/2025 Estimated Creatinine Clearance: 72 mL/min (by C-G formula based on SCr of 0.68 mg/dL). Chest xray (11/17/2024): Thank you for allowing us to participate in the care of Jessika Carrillo. Total time spent on the day of patient's visit was 55 minutes. This includes but is not limited to time spent preparing to see the patient, precharting, reviewing outside medical records, time spent in the patient's room doing a history and physical exam along with medication education, ordering lab test and requesting medical information as well as interpreting lab results and testing completed at [facility] and outside facilities through [facility] Everywhere. All the labs reviewed have been summarized and included in my history above. Note to patient: The Century Cures Act makes medical notes like these available to patients inthe interest of transparency. However, be advised this is a medical document. It is intended as [id number] communication. It is written in medical language and may contain abbreviations or verbiagethat are unfamiliar. It may appear blunt or direct. Medical documents are intended to carry relevant information, facts as evident, and the clinical opinion of the practitioner. Mackenzie Reyes, POLISHER AND SANDER-RECEIVING ROOM CLERK [place] [facility] [facility] [address] [facility] Review of Systems (OSUROS) Review of Systems Constitutional: Negative for activity change, chills and diaphoresis. HENT: Negative for congestion, dental problem, rhinorrhea and sore throat. Respiratory: Negative for cough and shortness of breath. Cardiovascular: Negative for chest pain, palpitations and leg swelling. Gastrointestinal: Negative for abdominal pain, blood in stool, constipation, diarrhea, nausea and vomiting. Endocrine: Negative for cold intolerance and polydipsia. Genitourinary: Negative for difficulty urinating, dysuria and hematuria. Neurological: Negative for dizziness, weakness, numbness and headaches. Hematological: Does not bruise/bleed easily. All other pertinent positives are also in the note above. Physical Examination (PHYSEXAM) Blood pressure 128/72, pulse 70, temperature 97.9 F (36.6 C), resp. rate 16, height 1.549 m (5' 1), weight 86.8 kg (191 lb 4.8 oz), SpO2 98%. Physical Exam Vitals reviewed. Constitutional: General: She is not in acute distress. Appearance: Normal appearance. She is obese. She is not ill-appearing. HENT: Mouth/Throat: Mouth: Mucous membranes are moist. Pharynx: Oropharynx is clear. No posterior oropharyngeal erythema. Eyes: Extraocular Movements: Extraocular movements intact. Conjunctiva/sclera: Conjunctivae normal. Pupils: Pupils are equal, round, and reactive to light. Neck: Vascular: No carotid bruit. Cardiovascular: Rate and Rhythm: Regular rhythm. Bradycardia present. Pulses: Normal pulses. Heart sounds: Normal heart sounds. No murmur heard. No friction rub. No gallop. Pulmonary: Effort: Pulmonary effort is normal. No respiratory distress. Breath sounds: Normal breath sounds. No stridor. No wheezing, rhonchi or rales. Chest: Chest wall: No tenderness. Abdominal: General: Bowel sounds are normal. Palpations: Abdomen is soft. Tenderness: There is no abdominal tenderness. Musculoskeletal: Cervical back: Normal range of motion and neck supple. No tenderness. Right lower leg: No edema. Left lower leg: No edema. Lymphadenopathy: Cervical: No cervical adenopathy. Skin: General: Skin is warm and dry. Capillary Refill: Capillary refill takes less than 2 seconds. Findings: No erythema or rash. Neurological: General: No focal deficit present. Mental Status: She is alert and oriented to person, place, and time. Cranial Nerves: No cranial nerve deficit. Psychiatric: Mood and Affect: Mood normal. Behavior: Behavior normal. Past Medical History: Diagnosis Date Arthritis Essential hypertension, benign Hyperlipidemia Malignant neoplasm of colon Past Surgical History: Procedure Laterality Date KNEE REPLACEMENT Right Patient Care Team: Shu Chow PA-C as PCP - General (Physician Engagement Director) Family History Problem Relation Age of Onset Heart Disease - Other Father Breast Cancer Paternal Aunt 2 aunts with breast cancer Social History Socioeconomic History Marital status: Tobacco Use Smoking status: Former Current packs/day: 0.00 Types: Cigarettes Quit date: 12/06/2019 Years since quittin.1 Smokeless tobacco: Never Substance and Sexual Activity Alcohol use: Yes Comment: wine twice per year Drug use: Never [facility]03-11-2025 History and physical note* KIRBY Segovia - 01/10/2025 3:00 PM EDT Images from the original note were not included. PREOPERATIVE ASSESSMENT H&P [facility] Name: Jessika Carrillo Date of Surgery: 01/23/2025 . Surgeon: AFRICA Thomas Pre-Op Diagnosis: Malignant neoplasm of ascending colon Planned Procedure: Laparoscopic / Robotic Right Colectomy Anesthesia Type: planned for general anesthesia SUMMARY AND RECOMMENDATIONS The patient is medically optimized at the time of this visit. Anesthesia/Medical Assessment/plan: Reviewed patient's history, assessment & ECG findings with Anesthesiologist Dr. Spann Strict NPO Diet recommended. Jessika Carrillo is a 74 y.o. year old patient with a history the following diagnoses which increase her risk for perioperative complications. she being referred for pre operative evaluation and optimization. The relative status of the medical conditions are further explained in this note. 1. Preop exam for internal medicine 2. Malignant neoplasm of ascending colon 3. Essential hypertension 4. Mixed hyperlipidemia 5. Abnormal coagulation profile ANESTHESIA and AIRWAY Anesthesia alerts: NELSON Risk, ERAS, PONV Personal history of problems related to anesthesia (ex.Malignant Hyperthermia): no Family History of problems related to anesthesia (ex.Malignant Hyperthermia: no Pacer/AICD: no Parenteral Access: no Glaucoma: no NELSON: no STOP-BANG Risk Assessment Do you snore - Yes Are you frequently tired during the day? - No Have you been observed gasping or choking while asleep? - No Do you have high blood pressure? - Yes Age more than 50? - Yes Gender male? - No Neck circumference greater than 40 cm? - No Neck Circumference (cm): 36 BMI more then 35? - Yes Body mass index is 36.15 kg/m . Mallampati class - 2 TM Distance - 3 FB Oral Opening - 3 FB Teeth - chehalis dentition Cervical range of motion - within normal limits Neck circumference - Neck Circumference (cm): 36 Allergies and adverse drug reactions Not on File ANESTHESIA/AIRWAY ASSESSMENT AND PLAN- # Anesthesia Alerts as above if applicable # Patient is at Intermediate (3-4) risk for NELSON # Previous Airway Details below (if available) CARDIOVASCULAR Do you take Aspirin or other antiplatelet agents? no Do you take anti-coagulations? no Beta Leena: yes - metoprolol Patient denies a history of cardiac events or LA. Denies chest pain, palpitation or worsening SOB over the last few months ASSESSMENT AND PLAN- # Functional status - METS: Moderate: 4-7 METS functional status. 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 # Pre-operative Risk Evaluation: Patient Meets the Following RCRI Criteria (RCRI): *High-risk surgery: 1 criteria suggesting a 6.0% risk of major cardiac events or within 30 days. Jessika Carrillo is at a Elevated risk based on the RCRI above. Patient can achieve METS > 4. Per ACC/AHA guidelines, the patient requires no further testing at this time. The patient is at elevated risk for the following perioperative complications not captured by the RCRI: N/A # Essential HTN: Appears poorly controlled on lisinopril-hydrochlorothiazide and metoprolol ; initial BP today 178/82 - Per patient, when she checks this at home, it is controlled on current regimen. - Denies dizziness, SOB, activity intolerance, CP, palpitations, etc. - hold lisinopril-hydrochlorothiazide 24 hours prior to surgery Rechecked at end of visit and BP is 128/72 BP Readings from Last 3 Encounters: 01/10/25 128/72 12/31/24 176/79 12/06/24 177/77 # Hyperlipidemia: stable without medication. CARDIAC TESTING and REVIEW OF PREVIOUS CARDIAC TESTING/IMAGING EKG (01/10/2025): Sinus bradycardia with a HR of 57. No LVH. No ST changes noted as interpreted by me PULMONARY ASSESSMENT AND PLAN: # None Denies Asthma, COPD, or other chronic lung disease Denies recent cough cold or fever PULMONARY TESTING AND REVIEW OF RECORDS if any SOCIAL/SUBSTANCE USE HISTORY Social History Tobacco Use Smoking Status Former Current packs/day: 0.00 Types: Cigarettes Quit date: 12/06/2019 Years since quittin.1 Smokeless Tobacco Never Social History Substance and Sexual Activity Alcohol Use Yes Comment: wine twice per year Social History Substance and Sexual Activity Drug Use Never Does the patient Vape? no ASSESSMENT AND PLAN: # No active use Encouraged to stop all ETOH use at least 5 days prior to surgery and Marijuana use 3 days prior to surgery. HEMATOLOGY History of DVT/PE - no In case of surgeons plan or unforseen emergency, are you okay with receiving blood products? - yes Have you ever been diagnosed with any bleeding disorders in the past (Hemophilia A or B, Von Willebrand Disease)? - No Patient has not received blood transfusions in the last 90 days. ASSESSMENT AND PLAN # None Recommend standard VTE prophylaxis inpatient DIABETES and ENDOCRINOLOGY ASSESSMENT AND PLAN Denies DM 1 or 2 or thyroid disease No results found for: HGBA1C ADDITIONAL DIAGNOSES OF CONCERN # Malignant neoplasm of ascending colon: managed with upcoming surgery. 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 MELD PELD: 6 at 01/10/2025 3:42 PM Calculated from: Serum Creatinine: 0.68 mg/dL (Using min of 1 mg/dL) at 01/10/2025 3:42 PM Total Bilirubin: 0.4 mg/dL (Using min of 1 mg/dL) at 01/10/2025 3:42 PM INR(ratio): 0.9 (Using min of 1) at 01/10/2025 3:42 PM Age: 74 years Denies issues with GERD, CKD, or other chronic conditions. ADVANCED CARE PLANNING (for elderly and frail patients) # Code Status: Not on file FULL CODE MEDICATIONS Current Outpatient Medications Medication Sig Acetaminophen 325 MG tablet Take 1 tablet by mouth as needed for Mild Pain. Calcium citrate 950 (200 Ca) MG tablet Take 1 tablet by mouth daily every morning. lisinopril-hydrochlorothiazide 20-25 MG per tablet Take 1 tablet by mouth daily every morning. Metoprolol succinate 50 MG tablet XL Take 1 tablet by mouth daily every morning. metroNIDAZOLE 500 MG tablet On the day before your surgery: Take 2 tablets at 1 pm, 2 tablets at 2 pm, and 2 tablets at 9 pm Neomycin 500 MG tablet On the day before your surgery: Take 2 tablets at 1 pm, 2 tablets at 2 pm, and 2 tablets at 9 pm Turmeric 5-1000 MG capsule Take 1,000 mg by mouth daily every morning. Medication A/P - Instructions for preoperative medications given to the patient in AVS. LABS Orders Placed This Encounter CBC, EDIF, PLATELET COMPREHENSIVE METABOLIC PANEL PROTIME-INR PTT CBC AND ELECTRONIC DIFF Type and Cross -Preadmission PREPARE TO TRANSFUSE OR RED BLOOD CELLS: 2 Units [place] ECG, CLINIC PERFORMED Lab A/P - Personally reviewed pertinent imaging and testing Lab Results Component Value Date SODIUM 139 01/10/2025 POTASSIUM 4.3 01/10/2025 CHLORIDE 99 01/10/2025 CO2 30 01/10/2025 BUN 17 01/10/2025 CREATSERUM 0.68 01/10/2025 GLUCOSE 80 01/10/2025 Lab Results Component Value Date WBC 7.81 01/10/2025 HGB 13.8 01/10/2025 HCT 43.6 01/10/2025 PLATELET 375 01/10/2025 MCV 93.0 01/10/2025 Lab Results Component Value Date INR 0.9 01/10/2025 PT 12.3 01/10/2025 Estimated Creatinine Clearance: 72 mL/min (by C-G formula based on SCr of 0.68 mg/dL). Chest xray (11/17/2024): Thank you for allowing us to participate in the care of Jessika Carrillo. Total time spent on the day of patient's visit was 55 minutes. This includes but is not limited to time spent preparing to see the patient, precharting, reviewing outside medical records, time spent in the patient's room doing a history and physical exam along with medication education, ordering lab test and requesting medical information as well as interpreting lab results and testing completed at [facility] and outside facilities through [facility] Everywhere. All the labs reviewed have been summarized and included in my history above. Note to patient: The Century Cures Act makes medical notes like these available to patients inthe interest of transparency. However, be advised this is a medical document. It is intended as onti-vl-qvvn communication. It is written in medical language and may contain abbreviations or verbiagethat are unfamiliar. It may appear blunt or direct. Medical documents are intended to carry relevant information, facts as evident, and the clinical opinion of the practitioner. Mackenzie Reyes, POLISHER AND SANDER-RECEIVING ROOM CLERK [facility] [address] [facility] Review of Systems (OSUROS) Review of Systems Constitutional: Negative for activity change, chills and diaphoresis. HENT: Negative for congestion, dental problem, rhinorrhea and sore throat. Respiratory: Negative for cough and shortness of breath. Cardiovascular: Negative for chest pain, palpitations and leg swelling. Gastrointestinal: Negative for abdominal pain, blood in stool, constipation, diarrhea, nausea and vomiting. Endocrine: Negative for cold intolerance and polydipsia. Genitourinary: Negative for difficulty urinating, dysuria and hematuria. Neurological: Negative for dizziness, weakness, numbness and headaches. Hematological: Does not bruise/bleed easily. All other pertinent positives are also in the note above. Physical Examination (PHYSEXAM) Blood pressure 128/72, pulse 70, temperature 97.9 F (36.6 C), resp. rate 16, height 1.549 m (5' 1), weight 86.8 kg (191 lb 4.8 oz), SpO2 98%. Physical Exam Vitals reviewed. Constitutional: General: She is not in acute distress. Appearance: Normal appearance. She is obese. She is not ill-appearing. HENT: Mouth/Throat: Mouth: Mucous membranes are moist. Pharynx: Oropharynx is clear. No posterior oropharyngeal erythema. Eyes: Extraocular Movements: Extraocular movements intact. Conjunctiva/sclera: Conjunctivae normal. Pupils: Pupils are equal, round, and reactive to light. Neck: Vascular: No carotid bruit. Cardiovascular: Rate and Rhythm: Regular rhythm. Bradycardia present. Pulses: Normal pulses. Heart sounds: Normal heart sounds. No murmur heard. No friction rub. No gallop. Pulmonary: Effort: Pulmonary effort is normal. No respiratory distress. Breath sounds: Normal breath sounds. No stridor. No wheezing, rhonchi or rales. Chest: Chest wall: No tenderness. Abdominal: General: Bowel sounds are normal. Palpations: Abdomen is soft. Tenderness: There is no abdominal tenderness. Musculoskeletal: Cervical back: Normal range of motion and neck supple. No tenderness. Right lower leg: No edema. Left lower leg: No edema. Lymphadenopathy: Cervical: No cervical adenopathy. Skin: General: Skin is warm and dry. Capillary Refill: Capillary refill takes less than 2 seconds. Findings: No erythema or rash. Neurological: General: No focal deficit present. Mental Status: She is alert and oriented to person, place, and time. Cranial Nerves: No cranial nerve deficit. Psychiatric: Mood and Affect: Mood normal. Behavior: Behavior normal. Past Medical History: Diagnosis Date Arthritis Essential hypertension, benign Hyperlipidemia Malignant neoplasm of colon Past Surgical History: Procedure Laterality Date KNEE REPLACEMENT Right Patient Care Team: Shu Chow PA-C as PCP - General (Physician Engagement Director) Family History Problem Relation Age of Onset Heart Disease - Other Father Breast Cancer Paternal Aunt 2 aunts with breast cancer Social History Socioeconomic History Marital status: Tobacco Use Smoking status: Former Current packs/day: 0.00 Types: Cigarettes Quit date: 12/06/2019 Years since quittin.1 Smokeless tobacco: Never Substance and Sexual Activity Alcohol use: Yes Comment: wine twice per year Drug use: [facility]* Patient Instructions* Shanell Mayo LPN - 01/10/2025 3:00 PM EDT PRIOR TO SURGERY INSTRUCTIONS Please follow these instructions prior to surgery to help us minimize delays and complications to your surgery THE FOLLOWING MEDICATIONS LABS, STUDIES, AND CONSULTATIONS WERE ORDERED TODAY: Orders Placed This Encounter CBC, EDIF, PLATELET COMPREHENSIVE METABOLIC PANEL PROTIME-INR PTT Type and Cross -Preadmission PREPARE TO TRANSFUSE OR RED BLOOD CELLS: 2 Units [place] ECG, CLINIC PERFORMED PREOPERATIVE MEDICATION INSTRUCTIONS Below are instructions for what to do with your medicines before your surgery/procedure. Take the medications marked take the morning of surgery/procedure with a sip of water. Please follow this table below for instructions on which medications to hold prior to surgery If you have a change in daily medications prior to surgery/procedure, call the [facility] Clinic at [phone]. Current Outpatient Medications Medication Sig Acetaminophen 325 MG tablet Take 1 tablet by mouth as needed for Mild Pain. Take AM surgery if needed Calcium citrate 950 (200 Ca) MG tablet Take 1 tablet by mouth daily every morning. Hold the morningof surgery lisinopril-hydrochlorothiazide 20-25 MG per tablet Take 1 tablet by mouth daily every morning. Holdthe morning of surgery Metoprolol succinate 50 MG tablet XL Take 1 tablet by mouth daily every morning. Take AM of surgery metroNIDAZOLE 500 MG tablet On the day before your surgery: Take 2 tablets at 1 pm, 2 tablets at 2 pm, and 2 tablets at 9 pm Take as directed. Neomycin 500 MG tablet On the day before your surgery: Take 2 tablets at 1 pm, 2 tablets at 2 pm, and 2 tablets at 9 pm Take as directed Turmeric 5-1000 MG capsule Take 1,000 mg by mouth daily every morning. Do Not take 14 days prior tosurgery DO NOT take Excedrin, ibuprofen, Advil, Voltaren (Diclofenac), Motrin, naproxen, or Aleve, Mobic (Meloxicam) for the 7 days before surgery unless your surgeon has instructed you otherwise. Acetaminophen (Tylenol) is ok to take up until the day of surgery for pain control VITAMINS & HERBALS Do NOT take herbal medications or vitamins such as, but not limited to, fish oil (Hammond-3), garlic,glucosamine -chondroitin, gingko, ginseng, probiotics, or multivitamins) 2 weeks before surgery unless your surgeon instructed differently. If your Medical Doctor has prescribed vitamins or herbal supplements due to a medical condition such as malabsorption issues, only hold the day of surgery. DIET INSTRUCTIONS: NO food or drink after 11 pm the night before surgery except for enough water to take your medications. (No Candy, Mints and/or Gum). If your surgeon has given you special shakes to take prior to surgery, it is okay to take them and follow those instructions OTHER PREOPERATIVE INSTRUCTIONS: To lessen your chance of getting an infection after your surgery, you will need to wash your skin with a special soap called 4% Chlorhexidine Gluconate (CHG) before your surgery. Your nurse has givenyou CHG soap today and written instructions; Getting Your Skin Ready for Surgery. Please review the instructions carefully prior to your surgery. Patient identified as being at high risk for sleep apnea. Patient education material for obstructive sleep apnea given and reviewed. PREOPERATIVE INSTRUCTIONS: If additional testing has been ordered by [facility] outside of what can be done today after your visit, we will contact you with an appointment date, location and time for this testing. Please complete this testing as it would be vital to proceeding with your surgery. Any delays in testing could result in delays in your surgery. Please bring remote/s for any devices that you may have implanted like ICDs, pacemakers, nerve stimulators (deep brain, vagus, pudendal, hypoglossal, sacral or spinal) Do not wear any jewelry, watches, rings, hairpieces, makeup, dentures, glasses or contact lenses onday of surgery. Do not wear artificial nails or nail canadian the day of surgery. Do NOT bring your hearing aids or dentures or partials with you into surgery. They may get lost. Give them to someone to bring to you after surgery Shower the night before and the morning of surgery. If we have provided you with a special soap, follow those directions. AVOID using surgical soap around eyes, ears, nose, mouth, and genital areas Avoid any creams, ointments or deodorant on the morning of surgery Do not shave, or pluck hair from anywhere near the surgical area for 1 week prior to surgery. [place] your teeth and rinse your mouth the morning of surgery. Avoid Swallowing toothpaste. If you are a female, under the age of 60, you may be required to provide a urine specimen the morning of surgery. DO NOT DRINK ALCOHOL for at least 5 days prior to surgery. AVOID USING NICOTINE or TOBACCO of any form around the time of surgery. This includes but not limited to: Smoking, Cigarettes, Vaping, Chewing/Rubbing Tobacco and Nicorette Gum. If you smoke, we recommend that you quit smoking at least 2 weeks prior to surgery as nicotine products can impair wound healing. Your anesthesia team recommends that you have no nicotine in your system for at least 24 hours (at a minimum) prior to anesthesia. Your surgery could get cancelled at your surgeon's discretion if you do not follow these instructions AVOID MARIJUANA USE for at least 72 hours prior to surgery. Arriving to surgery intoxicated or under the influence of recreational drugs may result in cancellation of procedure. If you have a cold or flu symptoms, recently hospitalized or new diagnosis, please contact your surgeon s office before your procedure. If you become ill, develop a fever, cough, develop any type of infection, or are admitted to the hospital for any reason within 14 days of your scheduled surgery, please notify our team ([facility])and your surgeon's office. You may need to have your surgery moved, as we would not want to put youat risk for complications, You MUST arrange for a responsible adult to drive you to your procedure, stay for the surgery, listen to discharge instructions, and drive you home after surgery, otherwise your surgery may be cancelled. [facility] Preoperative Testing Clinic Mary Cain [phone] AVS/EEH [facility] History of Present illness Narrative* Hali Barnett RN - 01/10/2025 1:30 PM EDT Patient was provided with instructions for pre surgery BOWEL PREP and patient education handout on Colectomy. Demonstrated to patient the steps regarding bowel prep day before surgery. Pt able to verbalize understanding of instructions of bowel prep. Also reviewed the handout regarding all aspects of preparing for surgery, what will happen day of surgery, recovering in hospital and at home. Patients voiced questions were answered to patients satisfaction. Patient provided with 2 Ensure Surgery Clear Carbohydrate drinks, samples of 2 Ensure Plus High Protein supplements and a coupon for Ensureproducts. [facility] Instructions* Patient Instructions* Hali Barnett RN - 01/10/2025 1:30 PM EDT You are scheduled for surgery on 01/23/25 with AFRICA Thomas. We will call you the day prior to your surgery date to provide you with your arrival timesand location details. You will be asked to arrive 2 hours prior to your scheduled surgery time. Planning ahead for surgery: Call the office immediately if you develop a fever, an infection, the flu, or other illness To reduce the risk of infection, your healthcare team may instruct you to start showering or cleansing with a soap containing Chlorhexidine Gluconate (CHG) such as Hibiclens. You are scheduled for a Humberto Pre-Anesthesia Assessment ([facility]) appointment on 01/16/25(telephone call). A pre-operative RN will call you to complete this pre-anesthesia assessment within two weeks of your scheduled procedure date. Please have an up-to-date medication list available as the RN will review your allergies, medications, and medical history during this visit. This visit will help determineyour procedural readiness and location of procedure. Additional Needs Prior to Surgery: Bring a comprehensive medication list that includes medication name, dosage, and frequency. Do not smoke after 6pm the night before your surgery. You may shower the morning of your surgery. Plan ahead about valuables, transportation, and being back home. If you are expected to go home the day of your surgery, a responsible adult must drive you home andstay with you for a recommended 24 hours. Your clothes and valuables will be given to your support person while you are in surgery. If you require an overnight stay at the hospital, arrange for home transport according to your anticipated discharge date. On the day of discharge ensure your support person is available to be taughtabout your care needs and help you get home. For your surgery you should plan: To spend one night or several nights in the hospital If you are coming in from out of town: You may want to make arrangements for lodging at the [facility] , or the [facility], [address] [facility], . Discounted rates are available upon request at the [facility]. Please inquire about free shuttle service to and from the hospital. [employer] shuttle service can be contacted at . On the Day of Surgery: Please check in at the central Registration Office on the entry level accountant (2 hours prior to surgery time). After Registration you be directed to our Perioperative Unit for your procedure. Surgery times can vary from the actual scheduled times. They can be either longer or shorter than expected. Please check the below website for our current Visitor Policy prior to your scheduled Surgery: [email or web address] Pre-Operative Bowel Preparation [facility] 2022 A bowel prep is done to prepare the bowel for surgery or a procedure. Its purpose is to clear out the bowel of all solid matter. Please follow these instructions. Begin the bowel prep on the day before your scheduled surgery. Prescriptions will be sent to your pharmacy [facility] [address] [place] [phone] [facility] for: Dulcolax 20 mg (available over the counter) MiraLAX 238 g (available over the counter) Metronidazole or Erythromycin (if Metronidazole allergic) Neomycin On the day before your surgery: Drink only clear liquids. You should not have any solid food or milk products until after your surgery. Do not drink any liquids that are red, orange or purple in color. You may drink as much of these liquids as you like. In fact, the more you drink, the better your prep and the better your body will tolerate the prep. Also, continue drinking clear fluids after you finish the prep (until midnight) will make it easier to place your IV on the morning of surgery. These clear liquids are allowed: Water Strained fruit juices with no pulp Popsicles Ice Soft drinks Gatorade (Lemon [place] preferred) Clear broth or bouillon Jell-O Coffee or tea with no milk or cream Micah-Aid (no red, orange or purple) Begin the bowel prep: Plan ahead so that you will have a bathroom nearby. You may need to get to the toilet right away. You will have several bowel movements through the day. They will become very watery. The bowels are clear or clean when there is only pale- yellow fluid without flecks of stool. Please follow the steps as directed starting at 11 AM on the day before your surgery. The steps will clean your bowel for surgery and help protect against infection. You may only consume CLEAR LIQUIDS twenty-four (24) hours prior to surgery. STEP 1 - 11 AM: Take all 4, 5 mg Bisacodyl (Dulcolax) tablets (20 mg total in 1 single dose) STEP 2 - 11 AM: Pour the entire 8.3 oz (238 g) bottle of Polyethylene Glycol (MiraLAX) powder into a large 64-ounce bottle of sports drink like Gatorade or PowerAde that is not red, orange, or purplein color. Lemon-[place] is preferred. You may need to pour out a cup of the drink from the bottle intoa glass to make room before pouring the powder into the bottle. Shake well. Drink entire contents (60 oz.) over 2 hours. STEP 3 - 1 PM: Take 2 , 500 mg Metronidazole (Flagyl) tablets and 2 , 500 mg Neomycin tablets STEP 4 - 2 PM: Take 2 , 500 mg Metronidazole (Flagyl) tablets and 2 , 500 mg Neomycin tablets STEP 5 - 9 PM: Take 2 , 500 mg Metronidazole (Flagyl) tablets and 2 , 500 mg Neomycin tablets STEP 6 - Before Bedtime: Take a shower and wash your hair and body as usual. Turn off shower. Apply a generous amount of theHibiclens (chlorhexidine) wash directly onto your skin (We will supply you with the soap prior to your surgery). Lather your body from the neck down. Pay special attention to the area where the surgery will be. Leave the wash on for 5 minutes then rinse well in the shower. Do not discard the Hibiclens (chlorhexidine) wash after showering. You will need to use the same bottle in the morning. Do NOT apply lotion or anything onto skin after showering. Put on clean clothes. STEP 7 - Before Bedtime: - Drink 1 bottle of Ensure Pre-Surgery Clear Nutritional drink. STEP 8- Morning of Surgery: Repeat STEP 6 above. Apply a generous amount of the Hibiclens (chlorhexidine) wash directly onto your skin. Lather your body from the neck down. Pay special attention to the area where the surgery will be. Leave the wash on for 5 minutes then rinse well in the shower. Do NOT apply lotion or anything onto skin after showering. Put on clean clothes. You will likely have extra Hibiclens (chlorhexidine) wash leftover that you may continue to use when you return home after surgery. STEP 9 - Morning of Surgery: - Drink the second bottle of Ensure Pre-Surgery Clear Nutritional drink on the way to the hospital prior to your procedure. STEP 10 - Please bring this form with you to your procedure. The morning of your surgery: Do not eat or drink anything other than the Preoperative Nutrition drink supplied by your doctor ordoctor's office. If you are to take your morning medicines, take with small sips of water only. Bring all medicines you usually take (in the original containers) to the hospital with you. Follow any other instructions you were given to prepare for your surgery. If you have any questions, call your surgeon's office. Nothing to eat or drink (NPO) after midnight except for certain medications (See medication guidelines that were given to you during you pre-op visit) and the Ensure Pre-Surgery clear nutrition drink(see information below for directions on this drink before surgery). * You will be given 2 bottles of Ensure Pre-Surgery clear nutrition drink today to take prior to surgery. What is Ensure Pre-Surgery clear nutrition drink, and what does it do? Surgery creates unique nutrition needs for your body. Ensure Pre-Surgery is formulated for those needs with carbohydrates and antioxidants to help your body recover after surgery. What is the drink important? Your healthcare provider has recommended this specialized Ensure nutrition drink to help your body prepare for, and recover from, surgery. It's important that you follow your doctor's nutrition recommendations to help with recovery. Pre-Surgery Carbohydrate-Loading Drinks have been shown to help patient recovery: Reduced nausea and vomiting after surgery Reduced pain after surgery Reduced time in the hospital When should I drink Ensure Pre-Surgery? We recommend you drink 1 bottle the night before surgery and drink 1 bottle the morning of your surgery up to 2 hours before surgery. This should be consumed quickly (in less than 5 minutes, rather than sipped over time). You should not have anything to eat or drink after midnight before surgery except your doctor's approved medications with a sip of water and this Ensure Pre-Surgery clear nutrition drink that should be consumed in the morning of surgery and finish it no later than 2 hours prior to surgery time. Youshould have nothing to eat or drink at all 2 hours prior to your surgery. What is Ensure High Protein 20 g ? As you continue to recover from surgery, add Ensure High Protein to your diet. Ensure High Protein is the only advanced nutrition shake that has an All-in-One blend with 20 grams of protein, HMB, fiber, vitamins and minerals. Ensure High Protein helps rebuild muscle for strength and energy during recovery from surgery. Ensure High Protein has been clinically shown to help significantly improve health outcomes. Patient who drank Ensure High Protein twice daily saw improvements in nutritional status, weight gain, and vitamin D levels. If you are diabetic, then we recommend Glucerna Shake Hunger Smart (10 fluid oz.) instead of EnsureHigh Protein We are providing you with 2 bottles of Ensure High Protein (or Glucerna if you are diabetic) as a sample for you to use. This is available at all major retailers. Our recommendation is to use a nutritional supplement for 14 days before and 14 days after surgery as part of a healthy diet. This time frame before surgery is a general guideline. Please note: This is a general guideline. The time frame before surgery may be shorter if your surgery is scheduled sooner than 14 days. Please be aware that the Ensure High Protein is different than the Ensure Pre- Surgery Clear Nutrition Drink. Ensure High Protein should not be drank the morning of surgery. This should be consumed when recovering from your surgery. Exercise and Improve Your Strength Before Surgery Being in good physical shape can help you recover from surgery more quickly and with fewer problems. The stronger you are before surgery, the easier things will be for you after surgery. Exercise 30 minutes each day most days of the week. Walking in your neighborhood or on a treadmill, riding a bike, and strength training using light weights are all good options. Try to increase the amount of time or how hard you are exercising every few days to build up your strength and stamina. If you have a regular exercise routine most days of the week, stay with it until your surgery. Your surgeon may have you see a physical therapist (PT) before your surgery if you are not very active or you are weak. Stop Tobacco Use If you smoke or use other tobacco products you need to stop 4 weeks before the surgery. You also need to avoid tobacco use for up to 8 weeks after surgery to help your wound healing. Talk to your doctor about a smoking cessation program. You can also get help through: [facility], National Quit Line, [place] [employer], [place] [employer], Smokefree.gov website Stop Alcohol Use If you drink alcohol you will need to stop drinking 4 weeks before the surgery to reduce your risk of problems after surgery. Avoid alcohol up to 8 weeks after your surgery to help reduce your risk of infection and to help your wound heal more quickly. Talk to your doctor if you need help to stop alcohol use. You may also find these resources helpful:Alcoholics Anonymous (AA) http://www.aa.org/ Rethinking Drinking https://www.rethinkingdrinking.niaaa.nih.gov/ National [place] of Alcohol Abuse and Alcoholism https://niaaa.nih.gov/ Andrews Jerome 778-472-0991 -Inpatient, partial hospitalization and outpatient services for teens or adults and their families, as well as educational programs are offered. PREOPERATIVE PAIN MANAGEMENT Most people can have some pain after surgery. Good pain control helps you feel comfortable so you can take deep breaths, walk and sleep better. This can help lower the risk of complications such as pneumonia or blood clots after surgery. Pain control starts before surgery Your doctor may prescribe medicine to help control your pain. Medications that you may be given before surgery include: Acetaminophen (Tylenol) Oxycodone Gabapentin Other types of medications that you may be given include anti-anxiety and anti- nausea medicines. Taking your pain medicine as ordered by your doctor will bring you the most relief as your body heals. Pain Relief Procedures In addition to medications, your surgeon and/or anesthesiologist may recommend a pain relieving procedure that will be done before you go into the operating room. Spinal Spinal analgesia is a procedure that can provide substantial pain relief after surgery. After cleaning and numbing the skin, a needle is advanced to the intrathecal space (it does not go into your spinal cord). After the needle is in the correct place, pain relieving medication is injected and then the needle is removed. Rare side effects from intrathecal injection may include: headaches, numbness or tingling in the lower legs, back soreness, bleeding, allergic reaction or infection. Epidural Epidural analgesia is another way to give pain medicine after surgery. A very thin plastic tube called an epidural catheter is placed in your back just before surgery. A small pump that delivers numbing medication is attached to the epidural catheter. The catheter is taped to your back and you will be able to move around in bed or walk. The epiduralcan stay in until 24-48 hours before discharge from the hospital. Rare side effects from an epidural may include: headaches, bleeding, allergic reaction or infection. Alternative Pain Relief Options If the previously mentioned pain relief procedures are not best for you, do not worry, there are alternative options to provide pain relief after surgery. Patient Controlled Analgesia (also known as a IN STORE MARKETING REPRESENTATIVE) A IN STORE MARKETING REPRESENTATIVE is a pain pump that could be used to help control pain. The pain medicine is ordered by your doctor. The pump is connected to your IV line and you can push a button when you have pain. This will give a small amount of pain medicine into your blood stream. You should be the only person to push the button. Your nurse will give you further instructions about this pump. Pain control without medication Many patients find that using non-drug therapy for pain control brings them additional relief. Options include, but are not limited to: Relaxation Exercise or movement Distraction, such as reading, watching a movie or erin Aromatherapy Heat or cold therapy (limit time of use) Talk to a staff member to learn more. FOLLOW [facility]AC's RECOMMENDATIONS FOR SKIN PREP AND PREOPERATIVE MEDICATIONS * Attachments The following attachments cannot be sent through Care Everywhere. * Colorectal Resection (Lexis Paul) ([place]) * Use of Incentive Spirometer Before Your Surgery (Lexis Paul) ([place]) [facility] History of Present illness Narrative* AFRICA Thomas - 12/06/2024 1:45 PM EST Subjective Jessika Carrillo is a 74 y.o. female who presents for New Patient (Colon adenocarcinoma at 30 cm, possible mets) History of Present Illness The patient presents for evaluation of right colon cancer with possible liver / renal lesion. She underwent a routine colonoscopy as part of her decennial health check-up, during which a malignancy was identified in the right side of her colon. A subsequent CT scan revealed a hepatic lesion, prompting a referral to our facility by a local surgeon who had initially planned a surgical intervention for the colonic cancer. She has no history of myocardial infarction or cerebrovascular accident. She has been abstinent from tobacco use for the past 30 years and is not currently on any anticoagulant therapy. She retains the ability to ascend and descend stairs, utilizing handrails for support. SOCIAL HISTORY The patient has not smoked for 30 years. Objective Blood pressure 177/77, pulse 74, temperature 98.1 F (36.7 C), temperature source Infrared, resp. rate 18, height 1.54 m (5' 0.63), weight 87.2 kg (192 lb 3.2 oz), SpO2 95%. Physical Exam Abdomen was examined and was within normal limits. Results Imaging Colonoscopy showed cancer on the right side of the colon. CT scan showed a lesion on the liver and lymph nodes around the colon. A small lesion was also noted on the kidney. Assessment & Plan 1. Colon cancer. A recent colonoscopy revealed a cancerous lesion on the right side of the colon. A subsequent CT scan indicated a potential abnormality in the liver, which could be a metastasis, given that this typeof cancer often spreads to the liver via the lymph nodes. Lymph nodes around the colon were also noted. 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 A minor abnormality was also detected in the kidney, but it is not considered significant at this time. An MRI will be conducted to further investigate the liver abnormality. Additionally, a CT scan of the chest will be performed. The results of these tests will guide the subsequent treatment plan. If the liver abnormality is benign, surgical resection of the right side of the colon will be performed, followed by anastomosis. This procedure, typically performed laparoscopically or robotically, requires a hospital stay of 2 to 3 daysand carries a risk of infection in 4 to 5 percent of cases. There is also a 2 percent risk of colost cy, which may be necessary in the event of unexpected findings or severe infection. Other potential risks include bleeding and injury to surrounding organs. If the liver abnormality is malignant, chemotherapy will likely be initiated. The patient's mismatch repair mutation may allow for the use of immunotherapy, a gentler alternative to chemotherapy. The MRI may also provide additional information regarding the kidney abnormality. [facility] Instructions* Patient Instructions* Irish Boyce RN - 12/06/2024 1:45 PM EST - MRI & CT scan ordered - Telehealth to follow imaging Survey Following your visit today, you may receive a survey via text or email asking about your experience. We are always looking for ways to improve your visit. Please share your feedback and comments withus- We would love to hear from you! documented in [facility] Author Ora Perez [facility] Note Date/Time March 20, 2025 1:18p [facility] Medical Records Department [address] [place] [address] Anesthesia Postop Eval I 03/20/25 1317 MR#: [id number] Acct: [id number] Name: JESSIKA CARRILLO Rep #:[id number] : 1950 74 From: Ora Perez CRNA PCP: JUVENTINO Pérez [place] [place] Race: C Location: [place] [address] Anesthesia: Postop Eval I Current Vital Signs Temperature: 97.9 F Pulse Rate: 54 Blood Pressure: 124/52 Respiratory Rate: 14 Pulse Ox: 97 Oxygen Delivery Method: Room Air Assessment Airway patent: Yes Spontaneous unlabored respirations: Yes Mental status: Awake nausea: No Vomiting: No Anesthesia Complication: No Fluid Hydration Crystalloid volume administer (ml): 500 Total IV fluid infused: 500 Progress Note Anesthesia document: Postop Eval 1 completed: Yes 03/20/25 1318 <Electronically signed by Ora Perez CR NA> Date _ Ora Perez CRNA Cosigner Signature: Date CC: ~ Signed [facility] Work Phone: Consult note Author Josue Ceballos [facility] Note Date/Time March 20, 2025 2:24p [facility] Medical Records Department [address] [place] [address] Anesthesia Postop Eval II 03/20/25 1424 MR#: [id number] Acct: [id number] Name: JESSIKA CARRILLO Rep #:[id number] : 1950 74 From: Josue Ceballos MD PCP: JUVENTINO Pérez Status:REG [facility] Y Race: C Location: [address] Anesthesia Postop Eval I Sum Postop Eval Completion status Anesthesia document: Postop Eval 1 completed: Yes Anesthesia Postop Eval I Summary Anesthesia Postop Eval I Summary: Anesthesia Postop Eval I: Assessment Summary Airway patent Yes 03/20/25 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 Spontaneous unlabored Yes 03/20/25 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 respirations Mental status Awake 03/20/25 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 nausea No 03/20/25 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 Vomiting No 03/20/25 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 Anesthesia Postop Eval I: Fluid Summary Crystalloid volume administer 500 03/20/25 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 (ml) Colloids volume administered ( ml) Blood Product volume administered (ml) Total IV fluid infused 500 03/20/25 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 Anesthesia Postop Eval I: Summary Notes Anesthesia Complication No 03/20/25 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 Anesthesia Complication Comment: Post-operative progress note Anesthesia: Postop Eval II Evaluation Mental status: Awake Pain Level: 0 nausea: No Vomiting: No 03/20/25 1424 <Electronically signed by Josue Ceballos MD > Date _ Josue Ceballos MD [facility] Signature: Date CC: ~ Signed [facility] Work Phone: Discharge summary Author Michael Gaines [facility] Note Date/Time March 20, 2025 1:20p m [facility] Medical Records Department [address] [place] [address] Instructions for Home/Discharge Instructions 03/20/25 1316 MR#: [id number] Acct: [id number] Name: JESSIKA CARRILLO Rep #:[id number] : 1950 74 From: Michael Gaines MD PCP: JUVENTINO Pérez [place] [place]charge Instructions Diet Discharge Diet: Light diet - advance as tolerated Activity Discharge Activity: May Shower May shower in (days): 2 Ice area for (Minutes): 30 Dressing / Incision Call your doctor if your incision/area has: Continuous Slow Oozing, Sudden Increased Bleeding, Increased Pain/ Swelling, Increased Redness, Foul Smelling Discharge and Swelling at the incision site Call your doctor if you observe: Fever of 101 or Higher Cleanse incision/area with: Soap & Water Follow Up Care Please Follow Up With: Michael Gaines MD When: as needed Test Results: Test results from this visit will be discussed in further detail at your follow- up appointment, if applicable. Discharge Plan Admission Primary Reason for Your Visit: Mediport placement Attending Provider: Michael Gaines Primary Care Provider: Shu Chow Instructions Print Language: [place] Discharge Orders/Prescriptions Prescriptions: New oxycodone-acetaminophen [Percocet] 5-325 mg tablet 1 tab PO Q8H PRN (Reason: pain) 3 Days Qty: 5 0RF Continued multivitamin Tablet 1 tab PO QDAY turmeric 400 mg capsule 400 mg PO DAILY lidocaine-prilocaine 2.5-2.5 % cream 1 applic topical ONCE PRN (Reason: port access) 30 Days Qty: 30 2RF ondansetron 8 mg tablet,disintegrating 8 mg PO Q8H PRN (Reason: nausea and vomiting) Qty: 30 2RF prochlorperazine maleate 10 mg tablet 10 mg PO Q6H PRN (Reason: nausea and vomiting) Qty: 30 2RF metoprolol tartrate 50 mg Tablet 50 mg PO DAILY lisinopril-hydrochlorothiazide 20-25 mg Tablet 1 tab PO DAILY Referrals / Follow Up: Shu Chow PA [Primary Care Provider] - Disposition Disposition (needs filled in before D/C Order can be placed): Home, Self Care 03/20/25 1320<Electronically signed by Michael Gaines MD>Michael Gaines MD CC: JUVENTINO Pérez ~ Signed [facility] Work Phone: Evaluation note* Diagnosis Malignant neoplasm of ascending colon- Primary [facility] Diagnosis Malignant neoplasm of ascending colon [facility] Diagnosis Malignant neoplasm of ascending colon [facility] Diagnosis Malignant neoplasm of ascending colon- Primary Malignant neoplasm of ascending colon [facility] Diagnosis Preop exam for internal medicine- Primary Other specified pre-operative examination Malignant neoplasm of ascending colon Essential hypertension Unspecified essential hypertension Mixed hyperlipidemia Abnormal coagulation profile Malignant neoplasm of ascending colon [facility] Diagnosis Colon cancer- Primary Malignant neoplasm of colon, unspecified site Malignant neoplasm of ascending colon [facility] Diagnosis Malignant neoplasm of ascending colon- Primary [facility] N[facility]* MRI/CAT Scan (Routine) - Closed Specialty Diagnoses / Procedures Referred By Yaw gayle Referred To Contact Diagnoses Malignant neoplasm of ascending colon Procedures CT CHEST WITH CONTRAST CHG DIAGNOSTIC COMPUTED TOMOGRAPHY THORAX W/CONTRAST Sachi Rosas MBBS [address] [address] Phone: tel: fax: Referral ID Status Reason Start Date Expiration Date Visits Re quested Visits Authorized [id number] Closed 12/06/2024 12/31/2025 1 1 [facility] for visit Narrative* MRI/CAT Scan (Routine) - Closed Specialty Diagnoses / Procedures Referred By Yaw gayle Referred To Contact Diagnoses Malignant neoplasm of ascending colon Procedures MRI ABDOMEN WITH AND WITHOUT CONTRAST CHG MRI ABDOMEN W/O CONTRAST FLWD BY W/CONTRAST Sachi Rosas [employer] [address] [address] Phone: tel: fax: Referral ID Status Reason Start Date Expiration Date Visits Re quested Visits Authorized [id number] Closed 12/06/2024 12/31/[address] Auth/Cert Specialty Diagnoses / Procedures Referred By Yaw t Referred To Contact Diagnoses Malignant neoplasm of ascending colon Malignant neoplasm of ascending colon [C18.2] Procedures MN LAPAROSCOPY COLECTOMY PARTIAL W/ANASTOMOSIS COLECTOMY PARTIAL ROBOTIC XI RIGHT Sachi Rosas, MBBS [address] [place] [address] Phone: tel: fax: [facility] [address] [place] [address] Referral ID Status Reason Start Date Expiration Date Visits Re quested Visits Authorized [id number] [address] [facility] Summary Purpose Family History No Family History Records Found Breast Cancer Status:Active Comments:Paterna l Aunt. Coronary Artery Disease Status:Active Comments :Father. Hypertension Status:Active Comments:Brother . Sister. Mother. Breast Cancer Status:Active Comments:Paterna l Aunt. Coronary Artery Disease Status:Active Comments :Father. Hypertension Status:Active Comments:Brother . Sister. Mother. Breast Cancer Status:Active Comments:Paterna l Aunt. Coronary Artery Disease Status:Active Comments :Father. Hypertension Status:Active Comments:Brother . Sister. Mother. Breast Cancer Status:Active Comments:Paterna l Aunt. Coronary Artery Disease Status:Active Comments :Father. Hypertension Status:Active Comments:Brother . Sister. Mother. Breast Cancer Status:Active Comments:Paterna l Aunt. Coronary Artery Disease Status:Active Comments :Father. Hypertension Status:Active Comments:Brother . Sister. Mother. Breast Cancer Status:Active Comments:Paterna l Aunt. Coronary Artery Disease Status:Active Comments :Father. Hypertension Status:Active Comments:Brother . Sister. Mother. Breast Cancer Status:Active Comments:Paterna l Aunt. Coronary Artery Disease Status:Active Comments :Father. Hypertension Status:Active Comments:Brother . Sister. Mother. Breast Cancer Status:Active Comments:Paterna l Aunt. Coronary Artery Disease Status:Active Comments :Father. Hypertension Status:Active Comments:Brother . Sister. Mother. Breast Cancer Status:Active Comments:Paterna l Aunt. Coronary Artery Disease Status:Active Comments :Father. Hypertension Status:Active Comments:Brother . Sister. Mother. Breast Cancer Status:Active Comments:Paterna l Aunt. Coronary Artery Disease Status:Active Comments :Father. Hypertension Status:Active Comments:Brother . Sister. Mother. Breast Cancer Status:Active Comments:Paterna l Aunt. Coronary Artery Disease Status:Active Comments :Father. Hypertension Status:Active Comments:Brother . Sister. Mother. Breast Cancer Status:Active Comments:Paterna l Aunt. Coronary Artery Disease Status:Active Comments :Father. Hypertension Status:Active Comments:Brother . Sister. Mother. Breast Cancer Status:Active Comments:Paterna l Aunt. Coronary Artery Disease Status:Active Comments :Father. Hypertension Status:Active Comments:Brother . Sister. Mother. Breast Cancer Status:Active Comments:Paterna l Aunt. Coronary Artery Disease Status:Active Comments :Father. Hypertension Status:Active Comments:Brother . Sister. Mother. Breast Cancer Status:Active Comments:Paterna l Aunt. Coronary Artery Disease Status:Active Comments :Father. Hypertension Status:Active Comments:Brother . Sister. Mother. Breast Cancer Status:Active Comments:Paterna l Aunt. Coronary Artery Disease Status:Active Comments :Father. Hypertension Status:Active Comments:Brother . Sister. Mother. Breast Cancer Status:Active Comments:Paterna l Aunt. Coronary Artery Disease Status:Active Comments :Father. Hypertension Status:Active Comments:Brother . Sister. Mother. Breast Cancer Status:Active Comments:Paterna l Aunt. Coronary Artery Disease Status:Active Comments :Father. Hypertension Status:Active Comments:Brother . Sister. Mother. Breast Cancer Status:Active Comments:Paterna l Aunt. Coronary Artery Disease Status:Active Comments :Father. Hypertension Status:Active Comments:Brother . Sister. Mother. Breast Cancer Status:Active Comments:Paterna l Aunt. Coronary Artery Disease Status:Active Comments :Father. Hypertension Status:Active Comments:Brother . Sister. Mother. Breast Cancer Status:Active Comments:Paterna l Aunt. Coronary Artery Disease Status:Active Comments :Father. Hypertension Status:Active Comments:Brother . Sister. Mother. Breast Cancer Status:Active Comments:Paterna l Aunt. Coronary Artery Disease Status:Active Comments :Father. Hypertension Status:Active Comments:Brother . Sister. Mother. Breast Cancer Status:Active Comments:Paterna l Aunt. Coronary Artery Disease Status:Active Comments :Father. Hypertension Status:Active Comments:Brother . Sister. Mother. Breast Cancer Status:Active Comments:Paterna l Aunt. Coronary Artery Disease Status:Active Comments :Father. Hypertension Status:Active Comments:Brother . Sister. Mother. Breast Cancer Status:Active Comments:Paterna l Aunt. Coronary Artery Disease Status:Active Comments :Father. Hypertension Status:Active Comments:Brother . Sister. Mother. Breast Cancer Status:Active Comments:Paterna l Aunt. Coronary Artery Disease Status:Active Comments :Father. Hypertension Status:Active Comments:Brother . Sister. Mother. Breast Cancer Status:Active Comments:Paterna l Aunt. Coronary Artery Disease Status:Active Comments :Father. Hypertension Status:Active Comments:Brother . Sister. Mother. Breast Cancer Status:Active Comments:Paterna l Aunt. Coronary Artery Disease Status:Active Comments :Father. Hypertension Status:Active Comments:Brother . Sister. Mother. Breast Cancer Status:Active Comments:Paterna l Aunt. Coronary Artery Disease Status:Active Comments :Father. Hypertension Status:Active Comments:Brother . Sister. Mother. Breast Cancer Status:Active Comments:Paterna l Aunt. Coronary Artery Disease Status:Active Comments :Father. Hypertension Status:Active Comments:Brother . Sister. Mother. Breast Cancer Status:Active Comments:Paterna l Aunt. Coronary Artery Disease Status:Active Comments :Father. Hypertension Status:Active Comments:Brother . Sister. Mother. Breast Cancer Status:Active Comments:Paterna l Aunt. Coronary Artery Disease Status:Active Comments :Father. Hypertension Status:Active Comments:Brother . Sister. Mother. Relationship Condition Age at Onset Recorded Date/T francis father Cardiac disease Unknown aunt Malignant neoplasm of breast Unknown Breast Cancer Status:Active Comments:Paterna l Aunt. Coronary Artery Disease Status:Active Comments :Father. Hypertension Status:Active Comments:Brother . Sister. Mother. Breast Cancer Status:Active Comments:Paterna l Aunt. Coronary Artery Disease Status:Active Comments :Father. Hypertension Status:Active Comments:Brother . Sister. Mother. Breast Cancer Status:Active Comments:Paterna l Aunt. Coronary Artery Disease Status:Active Comments :Father. Hypertension Status:Active Comments:Brother . Sister. Mother. Breast Cancer Status:Active Comments:Paterna l Aunt. Coronary Artery Disease Status:Active Comments :Father. Hypertension Status:Active Comments:Brother . Sister. Mother. Breast Cancer Status:Active Comments:Paterna l Aunt. Coronary Artery Disease Status:Active Comments :Father. Hypertension Status:Active Comments:Brother . Sister. Mother. Breast Cancer Status:Active Comments:Paterna l Aunt. Coronary Artery Disease Status:Active Comments :Father. Hypertension Status:Active Comments:Brother . Sister. Mother. Breast Cancer Status:Active Comments:Paterna l Aunt. Coronary Artery Disease Status:Active Comments :Father. Hypertension Status:Active Comments:Brother . Sister. Mother. Breast Cancer Status:Active Comments:Paterna l Aunt. Coronary Artery Disease Status:Active Comments :Father. Hypertension Status:Active Comments:Brother . Sister. Mother. Breast Cancer Status:Active Comments:Paterna l Aunt. Coronary Artery Disease Status:Active Comments :Father. Hypertension Status:Active Comments:Brother . Sister. Mother. Breast Cancer Status:Active Comments:Paterna l Aunt. Coronary Artery Disease Status:Active Comments :Father. Hypertension Status:Active Comments:Brother . Sister. Mother. Breast Cancer Status:Active Comments:Paterna l Aunt. Coronary Artery Disease Status:Active Comments :Father. Hypertension Status:Active Comments:Brother . Sister. Mother. Breast Cancer Status:Active Comments:Paterna l Aunt. Coronary Artery Disease Status:Active Comments :Father. Hypertension Status:Active Comments:Brother . Sister. Mother. Breast Cancer Status:Active Comments:Paterna l Aunt. Coronary Artery Disease Status:Active Comments :Father. Hypertension Status:Active Comments:Brother . Sister. Mother. Advance Directives No Advanced Directives Records Found Date Activated Date Inactivated Comments 01/23/2025 2:44 PM Date Activated Date Inactivated Comments 01/23/2025 5:52 AM 01/23/2025 2:44 PM Date Activated Date Inactivated Comments 01/23/2025 2:44 PM Date Activated Date Inactivated Comments 01/23/2025 5:52 AM 01/23/2025 2:44 PM Advance Directive Response Recorded Date/ Time Do you have a Healthcare Power of Director Revenue? No March 17, 2025 11:44am Advance Directive Response Recorded Date/ Time Do you have a Healthcare Power of Director Revenue? No March 17, 2025 11:44am Advance Directives on File No March 032024 11:35am Living Will No March 23, 2025 1 1:35am Do you have a Healthcare Power of Director Revenue? No March 23, 2025 11:35am Advance Directives No March 23 11:35am Advance Directive Response Recorded Date/ Time Do you have a Healthcare Power of Director Revenue? No March 17, 2025 11:44am Advance Directives on File No April 06, 2025 3:33pm Living Will No April 06, 2025 3 :33pm Do you have a Healthcare Power of Director Revenue? No April 06, 2025 3:33pm Advance Directives No April 06 3:33pm Advance Directive Response Recorded Date/ Time Do you have a Healthcare Power of Director Revenue? No March 17, 2025 11:44am Advance Directives on File No April 20, 2025 12:28pm Living Will No April 20, 2025 12:28pm Do you have a Healthcare Power of Director Revenue? No April 20, 2025 12:28pm Advance Directives No April 20 12:28pm Chief Complaint and Reason for Visit Chief Complaint Admit Date Amb Documentation March 06, 2025 4:41pm COLON CA March 09, 2025 8:53am NEW [facility] - LABS - [facility] March 09, 2025 9:58am CHEMO ED March 15, 2025 7:58a m Reason for Visit Admit Date Colon cancer March 09, 2025 8:53am Lung nodules March 09, 2025 8:53am Regional lymph node metastasis present M ay 2024 8:53am Colon cancer March 15, 2025 7:58a m Encounter for education March 15, 2025 7 :58am Lung nodules March 15, 2025 7:58a m Regional lymph node metastasis present M ay 2024 7:58am Chief Complaint Admit Date Amb Documentation March 06, 2025 4:41pm COLON CA March 09, 2025 8:53am NEW [facility] - LABS - [facility] March 09, 2025 9:58am CHEMO ED March 15, 2025 7:58a m PORT PLACEMENT March 15, 2025 9:51a m Chief Complaint Admit Date Amb Documentation March 06, 2025 4:41pm COLON CA March 09, 2025 8:53am NEW [facility] - LABS - [facility] March 09, 2025 9:58am CHEMO ED March 15, 2025 7:58a m PORT PLACEMENT March 15, 2025 9:51a m Insertion, Vascular Port March 20, 2025 11:03am Insertion, Vascular Port March 20, 2025 12:05pm Reason for Visit Admit Date Colon cancer March 09, 2025 8:53am Lung nodules March 09, 2025 8:53am Regional lymph node metastasis present M ay 2024 8:53am Colon cancer March 15, 2025 7:58a m Encounter for education March 15, 2025 7 :58am Lung nodules March 15, 2025 7:58a m Regional lymph node metastasis present M ay 2024 7:58am Colon cancer March 15, 2025 9:51a m Colon cancer March 20, 2025 11:03 am Chief Complaint Admit Date Amb Documentation March 06, 2025 4:41pm COLON CA March 09, 2025 8:53am CHEMO ED March 15, 2025 7:58a m PORT PLACEMENT March 15, 2025 9:51a m Insertion, Vascular Port March 20, 2025 11:03am Insertion, Vascular Port March 20, 2025 12:05pm NEW [facility] - LABS - [facility] March 21, 2025 7:21am NEW [facility] - LABS - [place] March 21, 2025 7:30am Reason for Visit Admit Date Colon cancer March 09, 2025 8:53am Lung nodules March 09, 2025 8:53am Regional lymph node metastasis present M ay 2024 8:53am Colon cancer March 15, 2025 7:58a m Encounter for education March 15, 2025 7 :58am Lung nodules March 15, 2025 7:58a m Regional lymph node metastasis present M ay 2024 7:58am Colon cancer March 15, 2025 9:51a m Colon cancer March 20, 2025 11:03 am Colon cancer March 21, 2025 7:21a m Encounter for chemotherapy management Ma y 2024 7:21am Lung nodules March 21, 2025 7:21a m Regional lymph node metastasis present M ay 2024 7:21am Chief Complaint Admit Date Amb Documentation March 06, 2025 4:41pm COLON CA March 09, 2025 8:53am CHEMO ED March 15, 2025 7:58a m PORT PLACEMENT March 15, 2025 9:51a m Insertion, Vascular Port March 20, 2025 11:03am Insertion, Vascular Port March 20, 2025 12:05pm [facility] - LABS - [facility] March 21, 2025 7:21am 2 WKS - LABS - [facility] April 04, 2025 7:4 2am NEW [facility] - LABS - [facility] April 04, 2025 7:45am Reason for Visit Admit Date Colon cancer March 09, 2025 8:53am Lung nodules March 09, 2025 8:53am Regional lymph node metastasis present M ay 2024 8:53am Colon cancer March 15, 2025 7:58a m Encounter for education March 15, 2025 7 :58am Lung nodules March 15, 2025 7:58a m Regional lymph node metastasis present M ay 2024 7:58am Colon cancer March 15, 2025 9:51a m Colon cancer March 20, 2025 11:03 am Colon cancer March 21, 2025 7:21a m Encounter for chemotherapy management Ma y 2024 7:21am Lung nodules March 21, 2025 7:21a m Regional lymph node metastasis present M ay 2024 7:21am Colon cancer April 04, 2025 7:42a m Encounter for chemotherapy management [facility] 2024 7:42am Lung nodules April 04, 2025 7:42a m Regional lymph node metastasis present J formerly [facility] 2024 7:42am Chief Complaint Admit Date Amb Documentation March 06, 2025 4:41pm COLON CA March 09, 2025 8:53am CHEMO ED March 15, 2025 7:58a m PORT PLACEMENT March 15, 2025 9:51a m Insertion, Vascular Port March 20, 2025 11:03am Insertion, Vascular Port March 20, 2025 12:05pm NEW [facility] - LABS - [place] March 21, 2025 7:21am 2 WKS - LABS - [facility] April 04, 2025 7:4 2am NEW [facility] - LABS - [facility] April 18 8:45am 2 WKS - LABS - [facility] April 18, 2025 8: 49am Reason for Visit Admit Date Colon cancer March 09, 2025 8:53am Lung nodules March 09, 2025 8:53am Regional lymph node metastasis present M ay 2024 8:53am Colon cancer March 15, 2025 7:58a m Encounter for education March 15, 2025 7 :58am Lung nodules March 15, 2025 7:58a m Regional lymph node metastasis present M ay 2024 7:58am Colon cancer March 15, 2025 9:51a m Colon cancer March 20, 2025 11:03 am Colon cancer March 21, 2025 7:21a m Encounter for chemotherapy management Ma y 2024 7:21am Lung nodules March 21, 2025 7:21a m Regional lymph node metastasis present M ay 2024 7:21am Colon cancer April 04, 2025 7:42a m Diarrhea due to drug April 04, 2025 7:42 am Encounter for chemotherapy management Rachell ne 2024 7:42am Lung nodules April 04, 2025 7:42a m Regional lymph node metastasis present J formerly [facility] 2024 7:42am Anemia April 18, 2025 8:49 am Colon cancer April 18, 2025 8:49 am Diarrhea due to drug April 18, 2025 8:4 9am Lung nodules April 18, 2025 8:49 am Regional lymph node metastasis present J formerly [facility] 2024 8:49am Chief Complaint Admit Date Amb Documentation March 06, 2025 4:41pm COLON CA March 09, 2025 8:53am CHEMO ED March 15, 2025 7:58a m PORT PLACEMENT March 15, 2025 9:51a m Insertion, Vascular Port March 20, 2025 11:03am Insertion, Vascular Port March 20, 2025 12:05pm NEW [facility] - LABS - [place] March 21, 2025 7:21am 2 WKS - LABS - [place] April 04, 2025 7:4 2am 2 WKS - LABS - [place] April 18, 2025 8: 49am 2 WKS - LABS - [place] May 02, 2025 7:2 9am NEW [facility] - LABS - [place] May 02, 2025 7:30am Reason for Visit Admit Date Colon cancer March 09, 2025 8:53am Lung nodules March 09, 2025 8:53am Regional lymph node metastasis present M ay 2024 8:53am Colon cancer March 15, 2025 7:58a m Encounter for education March 15, 2025 7 :58am Lung nodules March 15, 2025 7:58a m Regional lymph node metastasis present M ay 2024 7:58am Colon cancer March 15, 2025 9:51a m Colon cancer March 20, 2025 11:03 am Colon cancer March 21, 2025 7:21a m Encounter for chemotherapy management Ma y 2024 7:21am Lung nodules March 21, 2025 7:21a m Regional lymph node metastasis present M ay 2024 7:21am Colon cancer April 04, 2025 7:42a m Diarrhea due to drug April 04, 2025 7:42 am Encounter for chemotherapy management Ju ne 2024 7:42am Lung nodules April 04, 2025 7:42a m Regional lymph node metastasis present J une 2024 7:42am Anemia April 18, 2025 8:49 am Colon cancer April 18, 2025 8:49 am Diarrhea due to drug April 18, 2025 8:4 9am Lung nodules April 18, 2025 8:49 am Regional lymph node metastasis present J une 2024 8:49am Anemia May 02, 2025 7:29a m Colon cancer May 02, 2025 7:29a m Diarrhea due to drug May 02, 2025 7:29 am Encounter for chemotherapy management Ju ly 2024 7:29am Lung nodules May 02, 2025 7:29a m Regional lymph node metastasis present J chata 2024 7:29am Additional Source Comments INFORMATION SOURCE (unrecogn ized section and content) DATE CREATED AUTHOR 04/27/2018 [facility] DATE CREATED AUTHOR AUTHOR'S ORGANIZ ATION 01/02/2024 [facility] ([place]) DATE CREATED AUTHOR AUTHOR'S ORGANIZ ATION 09/26/2024 [facility] DATE CREATED AUTHOR AUTHOR'S ORGANIZ ATION 11/18/2024 [facility] DATE CREATED AUTHOR AUTHOR'S ORGANIZ ATION 03/19/2025 [facility] DATE CREATED AUTHOR AUTHOR'S ORGANIZ ATION 04/29/2025 [facility] DATE CREATED AUTHOR AUTHOR'S ORGANIZ ATION 05/07/2025 [facility] Reason for Visit (unrecogniz ed section and content) Reason Comments New Patient Colon adenocarcinoma at 30 cm, possible mets Specialty Diagnoses / Procedures Referred By Contac t Referred To Contact Colon & Rectal Surgery Diagnoses Adenocarcinoma of colon Flex Boles [facility] [address] [facility] [address] [place] [address] Phone: tel: fax: [facility] [address] [place] [address] Referral ID Status Reason Start Date Expiration Date V isits Requested Visits Authorized [id number] Pending Review 11/22/2024 12/17/2025 1 1 Reason Comments Other Pre op teaching- CER Reason Comments Preoperative Assessment Specialty Diagnoses / Procedures Referred By Yaw gayle Referred To Contact PreOp Diagnoses Malignant neoplasm of ascending colon Sachi Rosas, [place] [address] [place] [address] Phone: tel: fax: Referral ID Status Reason Start Date Expiration Date V isits Requested Visits Authorized [id number] New Request 01/03/2025 01/28/2026 1 1 Reason Onset Date Comments Post-Discharge Follow Up 01/29/2025 Do you have any questions about your follow up process or care instructions that we have provided? Yes Patient Education 01/29/2025 Reason Comments Post Op Visit 01/23/2025 COLECTOMY PARTIAL ROBOTIC XI RIGHT Care Teams (unrecognized sec tion and content) Decator Operator Relationship Specialty Start Date End Date Shu Chow PA-C [address] [place] [phone] PCP - General Physician Engagement Director 12/06/24 Decator Operator Relationship Specialty Start Date End Date Shu Chow PA-C [address] [place] [phone] PCP - General Physician Engagement Director 12/06/24 Decator Operator Relationship Specialty Start Date End Date Shu Chow PA-C [address] [facility] [address] [place] [phone] PCP - General Physician Engagement Director 12/06/24 Decator Operator Relationship Specialty Start Date End Date Shu Chow PA-C [address] [facility] [address] [place] [phone] PCP - General Physician Engagement Director 12/06/24 Decator Operator Relationship Specialty Start Date End Date Shu Chow PA-C [address] [facility] [address] [place] [phone] PCP - General Physician Engagement Director 12/06/24 Decator Operator Relationship Specialty Start Date End Date Shu Chow PA-C [address] [facility] [address] [place] [phone] PCP - General Physician Engagement Director 12/06/24 Sachi Rosas MBBS [address] [phone] Colon Rectal Surgeon Colon And Rectal Surgery 01/24/25 Eleonora Mcgarry, core microarchitect 01/27/25 Decator Operator Relationship Specialty Start Date End Date Shu Chow PA-C [address] [facility] [address] [place] [phone] PCP - General Physician Engagement Director 12/06/24 Sachi Rosas MBBS [address] [phone] Colon Rectal Surgeon Colon And Rectal Surgery 01/24/25 Eleonora Mcgarry, core microarchitect 01/27/25 Decator Operator Relationship Specialty Start Date End Date Shu Chow PA-C PCP - General Physician Engagement Director 12/06/24 Sachi Rosas MBBS [address] [place] [address] Colon Rectal Surgeon Colon And Rectal Surgery 01/24/25 Desiree Luna LISW Game Breeding Farm Manager 02/21/25 Team Status: Active Member Role Status Dates Shu Chow PA, PA Primary Care Provider Active Team Status: Active Member Role Status Dates Shu Chow PA, PA Primary Care Provider Active Start: March 06, 2025 Shikha Marroquin LPN Attending Provider Active S tart: March 06, 2025 Team Status: Inactive Member Role Status Dates Shu Chow PA, PA Primary Care Provider Active Start: March 09, 2025 End: March 09, 2025 Dr. Sachi Rosas MD Referring Provider Active S tart: March 09, 2025 End: March 09, 2025 Dr. [place] MD Attending Provider Active Start: March 09, 2025 End: March 09, 2025 Team Status: Active Member Role Status Dates Shu Chow PA, PA Primary Care Provider Active Start: March 09, 2025 Dr. [place] MD Attending Provider Active Start: March 09, 2025 Dr. [place] MD Referring Provider Active Start: March 09, 2025 Team Status: Inactive Member Role Status Dates Shu Chow PA, PA Primary Care Provider Active Start: March 15, 2025 End: March 15, 2025 Shu Chow PA, PA Referring Provider Active Start: March 15, 2025 End: March 15, 2025 Alyssa Lynch SECURITY INFRASTRUCTURE ENGINEER, SECURITY INFRASTRUCTURE ENGINEER-C Attending Provider Active Start: March 15, 2025 End: March 15, 2025 Team Status: Inactive Member Role Status Dates Shu Chow PA, PA Primary Care Provider Active Start: March 15, 2025 End: March 15, 2025 Shu Chow PA, PA Referring Provider Active Start: March 15, 2025 End: March 15, 2025 Dr. Michael Gaines MD Attending Provider Active Start: March 15, 2025 End: March 15, 2025 Team Status: Inactive Member Role Status Dates Shu Chow PA, PA Primary Care Provider Active Start: March 20, 2025 End: March 20, 2025 Dr. Michael Gaines MD Attending Provider Active Start: March 20, 2025 End: March 20, 2025 Dr. Michael Gaines MD Referring Provider Active Start: March 20, 2025 End: March 20, 2025 Team Status: Active Member Role Status Dates Shu Abbotter PA, PA Primary Care Provider Active Start: March 20, 2025 Dr. Michael Gaines MD Attending Provider Active Start: March 20, 2025 Dr. Michael Gaines MD Referring Provider Active Start: March 20, 2025 Dr. Michael Gaines MD Other Provider Active St art: March 20, 2025 Team Status: Inactive Member Role Status Dates Shu Chow PA, PA Primary Care Provider Active Start: March 21, 2025 End: March 21, 2025 Shu Chow PA, PA Referring Provider Active Start: March 21, 2025 End: March 21, 2025 Alyssa Lynch SECURITY INFRASTRUCTURE ENGINEER, SECURITY INFRASTRUCTURE ENGINEER-C Attending Provider Active Start: March 21, 2025 End: March 21, 2025 Team Status: Active Member Role Status Dates Shu Chow PA, PA Primary Care Provider Active Start: March 21, 2025 Dr. [place] MD Attending Provider Active Start: March 21, 2025 Dr. [place] MD Referring Provider Active Start: March 21, 2025 Team Status: Inactive Member Role Status Dates Shu Chow PA, PA Primary Care Provider Active Start: April 04, 2025 End: April 04, 2025 Shu Chow PA, PA Referring Provider Active Start: April 04, 2025 End: April 04, 2025 Alyssa Lynch SECURITY INFRASTRUCTURE ENGINEER, SECURITY INFRASTRUCTURE ENGINEER-C Attending Provider Active Start: April 04, 2025 End: April 04, 2025 Team Status: Active Member Role Status Dates Shu Chow PA, PA Primary Care Provider Active Start: April 04, 2025 Dr. [place] MD Attending Provider Active Start: April 04, 2025 Dr. [place] MD Referring Provider Active Start: April 04, 2025 Team Status: Active Member Role Status Dates Shu Abbotter PA, PA Primary Care Provider Active Start: April 18, 2025 Dr. [place] MD Attending Provider Active Start: April 18, 2025 Dr. [place] MD Referring Provider Active Start: April 18, 2025 Team Status: Inactive Member Role Status Dates Shu Chow PA, PA Primary Care Provider Active Start: April 18, 2025 End: April 18, 2025 Shu Chow PA, PA Referring Provider Active Start: April 18, 2025 End: April 18, 2025 Dr. [place] MD Attending Provider Active Start: April 18, 2025 End: April 18, 2025 Team Status: Active Member Role/Relationship Status Dates Shu Chow PA, PA Primary Care Provider Active Team Status: Active Member Role/Relationship Status Dates Shu Chow PA, PA Primary Care Provider Active Start: March 06, 2025 Shikha Marroquin LPN Attending Provider Active S tart: March 06, 2025 Team Status: Inactive Member Role/Relationship Status Dates Shu Chow PA, PA Primary Care Provider Active Start: March 09, 2025 End: March 09, 2025 Dr. Sachi Rosas MD Referring Provider Active S tart: March 09, 2025 End: March 09, 2025 Dr. [place] MD Attending Provider Active Start: March 09, 2025 End: March 09, 2025 Team Status: Inactive Member Role/Relationship Status Dates Shu Chow PA, PA Primary Care Provider Active Start: March 15, 2025 End: March 15, 2025 Shu Chow PA, PA Referring Provider Active Start: March 15, 2025 End: March 15, 2025 Alyssa Lynch SECURITY INFRASTRUCTURE ENGINEER, SECURITY INFRASTRUCTURE ENGINEER-C Attending Provider Active Start: March 15, 2025 End: March 15, 2025 Team Status: Inactive Member Role/Relationship Status Dates Shu Chow PA, PA Primary Care Provider Active Start: March 15, 2025 End: March 15, 2025 Shu Chow PA, PA Referring Provider Active Start: March 15, 2025 End: March 15, 2025 Dr. Michael Gaines MD Attending Provider Active Start: March 15, 2025 End: March 15, 2025 Team Status: Inactive Member Role/Relationship Status Dates Shu Chow PA, PA Primary Care Provider Active Start: March 20, 2025 End: March 20, 2025 Dr. Michael Gaines MD Attending Provider Active Start: March 20, 2025 End: March 20, 2025 Dr. Michael Gaines MD Referring Provider Active Start: March 20, 2025 End: March 20, 2025 Team Status: Active Member Role/Relationship Status Dates Shu Chow PA, PA Primary Care Provider Active Start: March 20, 2025 Dr. Michael Gaines MD Attending Provider Active Start: March 20, 2025 Dr. Michael Gaines MD Referring Provider Active Start: March 20, 2025 Dr. Michael Gaines MD Other Provider Active St art: March 20, 2025 Team Status: Inactive Member Role/Relationship Status Dates Shu Chow PA, PA Primary Care Provider Active Start: March 21, 2025 End: March 21, 2025 Shu Chow PA, PA Referring Provider Active Start: March 21, 2025 End: March 21, 2025 Alyssa Lynch SECURITY INFRASTRUCTURE ENGINEER, SECURITY INFRASTRUCTURE ENGINEER-C Attending Provider Active Start: March 21, 2025 End: March 21, 2025 Team Status: Inactive Member Role/Relationship Status Dates Shu Chow PA, PA Primary Care Provider Active Start: April 04, 2025 End: April 04, 2025 Shu Chow PA, PA Referring Provider Active Start: April 04, 2025 End: April 04, 2025 Alyssa Lynch SECURITY INFRASTRUCTURE ENGINEER, SECURITY INFRASTRUCTURE ENGINEER-C Attending Provider Active Start: April 04, 2025 End: April 04, 2025 Team Status: Inactive Member Role/Relationship Status Dates Shu Chow PA, PA Primary Care Provider Active Start: April 18, 2025 End: April 18, 2025 Shu Chow PA, PA Referring Provider Active Start: April 18, 2025 End: April 18, 2025 Dr. [place] MD Attending Provider Active Start: April 18, 2025 End: April 18, 2025 Team Status: Inactive Member Role/Relationship Status Dates Shu Chow PA, PA Primary Care Provider Active Start: May 02, 2025 End: May 02, 2025 Shu Chow PA, PA Referring Provider Active Start: May 02, 2025 End: May 02, 2025 Alyssa Lynch SECURITY INFRASTRUCTURE ENGINEER, SECURITY INFRASTRUCTURE ENGINEER-C Attending Provider Active Start: May 02, 2025 End: May 02, 2025 Team Status: Active Member Role/Relationship Status Dates Shu JAUREGUI PA Primary Care Provider Active Start: May 02, 2025 Dr. [place] MD Attending Provider Active Start: May 02, 2025 Dr. [place] MD Referring Provider Active Start: May 02, 2025 Scheduled Active and Recently Administ ered Medications (unrecognized section and content) Medication Order 01/26/2025 01/27/2025 01/28/2025 Acetaminophen (TYLENOL) tablet 975 mg 975 mg, Oral, EVERY 8 HOURS NON-STANDARD, First dose on Thu01/23/25 at 1500, Until Discontinued, Maximum dose of acetaminophen is 4000 mg from all sources in 24 hours., Post-op/Post-Proc 0852 (Given - Provider: Rickie Armstrong RN)1639 (Given - Provider: Rickie Armstrong RN)2240 (Given - Provider: Sara Ghorta RN) 0538 (Given - Provider: Sara Ghotra RN)1600 (Not Given - Provider: Reyna Maher RN - Reason: Patient/family refused)2311 (Given - Provider: Sara Ghotra RN) 0627 (Given - Provider: Sara Ghotra RN) Enoxaparin Sodium (LOVENOX) injection 40 mg 40 mg, Subcutaneous, EVERY 24 HOURS, First dose on Thu01/24/25 at 0900, Until Discontinued, For SUBCUTANEOUS route ONLY: alternate injection sites between left and right abdominal wall, pinching location and avoiding area around navel. If unable to use abdominal sites, may use the front or side of thighs., Indications: DVT/PE prophylaxis, Post-op/Post-Proc 0758 (Unheld by provider - Provider: Malick Ricci, POLISHER AND SANDER-RECEIVING ROOM CLERK)0852 (Given - Provider: Rickie Armstrong RN) 0859 (Given - Provider: Reyna Maher RN) 0906 (Given - Provider: Reyna Maher RN) Gabapentin (NEURONTIN) capsule 100 mg 100 mg, Oral, EVERY 8 HOURS NON-STANDARD, First dose on Thu01/23/25 at 1500, Until Discontinued, Post-op/Post-Proc 0852 (Given - Provider: Rickie Armstrong RN)1639 (Given - Provider: Rickie Armstrong RN)2240 (Given - Provider: Sara Ghotra RN) 0538 (Given - Provider: Sara Ghotra RN)1600 (Not Given - Provider: Reyna Maher RN - Reason: Patient/family refused)2311 (Given - Provider: Sara Ghotra RN) 0627 (Given - Provider: Sara Ghotra RN) hydroCHLOROthiazide (HYDRODIURIL) tablet 25 mg 25 mg, Oral, DAILY, First dose on Thu01/27/25 at 0900, Until Discontinued 0900 (Given - Provider: Reyna Maher RN) 0906 (Given - Provider: Reyna Maher RN) Ibuprofen (MOTRIN) tablet 600 mg 600 mg, Oral, EVERY 8 HOURS NON-STANDARD, First dose on Thu01/23/25 at 1600, Until Discontinued, Give with food, Post-op/Post-Proc 0852 (Given - Provider: Rickie Armstrong RN)1639 (Given - Provider: Rickie Armstrong RN)2240 (Given - Provider: Sara Ghotra RN) 0859 (Given - Provider: Reyna Maher RN)1600 (Not Given - Provider: Reyna Maher RN - Reason: Patient/family refused)2311 (Given - Provider: Sara Ghotra RN) 0907 (Not Given - Provider: Reyna Maher RN - Reason: Patient/family refused)1130 (Given - Provider: Reyna Maher RN) Lisinopril (PRINIVIL) tablet 20 mg 20 mg, Oral, DAILY, First dose on Thu01/26/25 at 0900, Until Discontinued 1302 (Given - Provider: Rickie Armstrong RN) 0900 (Given - Provider: Reyna Maher RN) 0906 (Given - Provider: Reyna Maher RN) Metoprolol succinate (TOPROL-XL) tablet XL 50 mg 50 mg, Oral, DAILY EVERY MORNING, First dose on Thu01/24/25 at 0900, Until Discontinued, Slow release product. Do not crush. Extended release can be cut in half., Post-op/Post-Proc 0852 (Given - Provider: Rickie Armstrong RN) 0900 (Given - Provider: Reyna Maher RN) 0906 (Given - Provider: Reyna Maher RN) Continuous Medication Order 01/26/2025 01/27/2025 01/28/2025 Sodium chloride 0.9% IV solution (CANCELED) Intravenous, at 75 mL/hr, CONTINUOUS, Starting on Thu01/25/25 at 1730, Until Anne 01/26/25 at 0959 0257 (Paused - Provider: Lianna Charles, RN)0316 ($$New Bag$$ - Provider: Lianna Charles, RN) PRN Medication Order 01/26/2025 01/27/2025 01/28/2025 hydrALAZINE (APRESOLINE) injection 10 mg 10 mg, Intravenous, EVERY 6 HOURS NEEDED, Starting on Thu01/25/25 at 2039, Until 01/28/25 at 1438, SBP > 160 mmHg with HR <60 bpm 0304 (Given - Provider: Lianna Charles, RN) Labetalol (NORMODYNE) injection 10 mg 10 mg, Intravenous, EVERY 6 HOURS NEEDED, Starting on Thu01/25/25 at 2031, Until 01/28/25 at 1438, SBP > 160 mmHg with HR >60 bpm, Administration duration: up to 20 mg over 2 minutes. Telemetry required except for COPING MACHINE OPERATOR patients on [address] Floors 6 and 7. For vials: labetalol should be treated as a SINGLE USE VIAL. Discard remaining contents after one use. 0004 (Given - Provider: Lianna Charles RN) Melatonin tablet 6 mg 6 mg, Oral, DAILY AT BEDTIME NEEDED, Starting on 01/23/25 at 1444, Until 01/28/25 at 1438, Insomnia, Post-op/Post-Proc Ondansetron 4mg/2ml (ZOFRAN) injection 4 mg 4 mg, Intravenous, EVERY 6 HOURS NEEDED, Starting on 01/24/25 at 0720, Until 01/28/25 at 1438, Nausea / Vomiting, 2nd Line Nausea / Vomiting, Post-op/Post-Proc oxyCODONE (ROXICODONE) tablet 5 mg(Linked Group 1) 5 mg, Oral, EVERY 4 HOURS NEEDED, Starting on 01/23/25 at 1444, Until 01/25/25 at 1443, Mild Pain, Moderate Pain, Severe Pain, Use as initial dose. Higher dose may be administered if lower dose was previously documented as ineffective and did not result in adverse effects (RR<10, decrease in level of consciousness)., Post-op/Post-Proc oxyCODONE (ROXICODONE) tablet 5 mg(Linked Group 2) 5 mg, Oral, EVERY 4 HOURS NEEDED, Starting on Thu01/25/25 at 1120, Until 01/28/25 at 1438, Moderate Pain, Severe Pain, Use as initial dose. Higher dose may be administered if lower dose was previously documented as ineffective and did not result in adverse effects (RR<10, decrease in level of consciousness)., Post-op/Post-Proc 0414 (Given - Provider: Lianna Charles, RN - Comment: Pt verbalized pain after ambulating to restroom. Requesting PRN) oxyCODONE HCl (ROXICODONE) tablet 10 mg(Linked Group 2) 10 mg, Oral, EVERY 4 HOURS NEEDED, Starting on Thu01/25/25 at 1120, Until 01/28/25 at 1438, Moderate Pain, Severe Pain, Higher dose may be administered if lower dose was previously documented as ineffective and did not result in adverse effects (RR<10, decrease in level of consciousness). Decrease back to lower dose if patient has adverse effects, or no PRN used in previous 12 hours., Post-op/Post-Proc 4 (See Alternative - Provider: Lianna hCarles, OMER) Phenol (CHLORASEPTIC) 1.4 % oral spray 1 spray 1 spray, Mouth/Throat, NEEDED, Starting on Thu01/23/25 at 1444, Until 01/28/25 at 1438, Sore Throat, Patient may self-administer., Post-op/Post-Proc Prochlorperazine (COMPAZINE) injection 10 mg(Linked Group 3) 10 mg, Intravenous, EVERY 6 HOURS NEEDED, Starting on Thu01/23/25 at 1444, Until 01/28/25 at 1438, Nausea / Vomiting, moderate nausea and vomiting, 1st line (if NOT tolerating PO), For IV route: dilute dose with 10mL normal saline and give by slow IV push at a rate of 5mg/min. Maximum of 40mg/day., Post-op/Post-Proc Prochlorperazine (COMPAZINE) tablet 10 mg(Linked Group 3) 10 mg, Oral, EVERY 6 HOURS NEEDED, Starting on 01/23/25 at 1444, Until 01/28/25 at 1438, Nausea / Vomiting, Refractory Nausea Vomiting, 1st line (if tolerating PO), Post-op/Post-Proc Linked Groups Order Group 1: oxyCODONE (ROXICODONE) tablet 5 mgJump to med 5 mg, Oral, EVERY 4 HOURS NEEDED, Starting on Thu01/23/25 at 1444, Until Thu01/25/25 at 1443, Mild Pain, Moderate Pain, Severe Pain, Use as initial dose. Higher dose may be administered if lower dose was previously documented as ineffective and did not result in adverse effects (RR<10, decrease in level of consciousness)., Post-op/Post-Proc Or oxyCODONE HCl (ROXICODONE) tablet 10 mg () 10 mg, Oral, EVERY 4 HOURS NEEDED, Starting on Thu01/23/25 at 1444, Until 01/25/25 at 1443, Mild Pain, Moderate Pain, Severe Pain, Higher dose may be administered if lower dose was previously documented as ineffective and did not result in adverse effects (RR<10, decrease in level of consciousness). Decrease back to lower dose if patient has adverse effects, or no PRN used in previous 12 hours., Post-op/Post-Proc Group 2: oxyCODONE (ROXICODONE) tablet 5 mgJump to med 5 mg, Oral, EVERY 4 HOURS NEEDED, Starting on Thu01/25/25 at 1120, Until 01/28/25 at 1438, Moderate Pain, Severe Pain, Use as initial dose. Higher dose may be administered if lower dose was previously documented as ineffective and did not result in adverse effects (RR<10, decrease in level of consciousness)., Post-op/Post-Proc Or oxyCODONE HCl (ROXICODONE) tablet 10 mgJump to med 10 mg, Oral, EVERY 4 HOURS NEEDED, Starting on Thu01/25/25 at 1120, Until 01/28/25 at 1438, Moderate Pain, Severe Pain, Higher dose may be administered if lower dose was previously documented as ineffective and did not result in adverse effects (RR<10, decrease in level of consciousness). Decrease back to lower dose if patient has adverse effects, or no PRN used in previous 12 hours., Post-op/Post-Proc Group 3: Prochlorperazine (COMPAZINE) injection 10 mgJump to med 10 mg, Intravenous, EVERY 6 HOURS NEEDED, Starting on 01/23/25 at 1444, Until 01/28/25 at 1438, Nausea / Vomiting, moderate nausea and vomiting, 1st line (if NOT tolerating PO), For IV route: dilute dose with 10mL normal saline and give by slow IV push at a rate of 5mg/min. Maximum of 40mg/day., Post-op/Post-Proc Or Prochlorperazine (COMPAZINE) tablet 10 mgJump to med 10 mg, Oral, EVERY 6 HOURS NEEDED, Starting on 01/23/25 at 1444, Until 01/28/25 at 1438, Nausea / Vomiting, Refractory Nausea Vomiting, 1st line (if tolerating PO), Post-op/Post-Proc Goals (unrecognized section and content) Goals may be documented in a n alternate sectionGoals may be documented in an alternate section FOR RECORDS PERTAINING TO PATIENTS WHO ARE OR HAVE BEEN ENROLLED IN A CHEMICAL DEPENDENCY/SUBSTANCEABUSE PROGRAM, SOME INFORMATION MAY BE OMITTED. This clinical summary was aggregated from multiple sources. Caution should be exercised in using it in the provision of clinical care. This summary normalizes information from multiple sources, and as a consequence, information in this document may materially change the coding, format and clinical context of patient data. In addition, data may be omitted in some cases. CLINICAL DECISIONS SHOULD BE BASED ON THE PRIMARY CLINICAL RECORDS. [employer] [facility]. provides no warranty or guarantee of the accuracy or completeness of information in this document.
--- NOTE | 2025-05-13 13:05 | RAD_ITS ---
PROCEDURE: CHEST 1 VIEW (PORTABLE) 05/13/2025 REASON FOR EXAM: WEAKNESS TECHNIQUE: Frontal view of the chest. COMPARISON: Chest radiograph dated 03/20/2025 FINDINGS: Hardware: Left chest port with tip in the superior vena cava, unchanged. Heart: Cardiac and mediastinal contours are stable. Lungs: No focal consolidation or pleural effusion. Bones: Degenerative changes are identified within the shoulders and thoracic spine. RAD/Chest 1 View (Portable) IMPRESSION: No acute cardiopulmonary abnormality. Reading Location: [facility]
[2025-05-13] MEDS: 0.9% Normal Saline (1000mL) 1,000 ML 1000 ML IV (13:23)
[2025-05-13 13:32] LABS: Hematocrit 34.0 % (37-47); Hemoglobin 11.5 g/dL (12.0-15.0); Mean Corp Hgb Conc 33.8 g/dL (32-36); Mean Corpuscular Volume 89.5 fL (81-99); Mean Platelet Vol. 9.0 fl (6.2-12.0); POSITIVE COUNT YES; POSITIVE DIFFERENTIAL YES; POSITIVE MORPHOLOGY YES; Platelet Count 225 K/mm3 (150-450); RBC Distribution Width CV 14.7 % (11.6-14.6); RBC Distribution Width SD 45.4 fl (35.1-43.9); Red Blood Count 3.80 M/mm3 (4.2-5.4); White Blood Count 2.4 K/mm3 (4.4-11.0)
[2025-05-13 13:37] LABS: AST(SGOT) 24 U/L (<=31); Alanine Aminotransfer ALT/SGPT 25 U/L (<=34); Albumin, Serum 3.1 g/dL (3.4-4.8); Alkaline Phosphatase 74 U/L (35-104); Anion Gap 13 (5-15); BUN 12 mg/dL (4-19); BUN/Creat Ratio 15.0 RATIO (10-20); Calcium,Total 8.7 mg/dL (7.6-11.0); Carbon Dioxide 21.5 mmol/L (21.0-32.0); Chloride 98 mmol/L (98-108); Differential Indicated MANUAL DIFF; Estimated Creatinine Clearance 57.64 ml/min (50-250); Globulin 3.4 g/dL (2.2-4.2); Glucose 147 mg/dL (70-99); Lipase 13 U/L (13-75); Magnesium 1.9 mg/dL (1.5-2.2); Potassium 3.1 mmol/L (3.3-5.1)
--- NOTE | 2025-05-13 14:16 | EDS_ITS ---
HPI History of Present Illness Chief Complaint: Syncope Informant: patient and family Narrative Narrative: Patient is a 74-year-old female with history of colon cancer currently undergoing chemotherapy and status post right hemicolectomy (December 2024). Her last treatment was May 02. States this week she has had increased diarrhea, decreased appetite and dizziness. Denies any blood in her stool. Denies any vomiting. Yesterday was going unlock the door before her grandson came over and she passed out. She did hit the right side of her head. She states everything went black before she fell. She woke up on the ground. She is not exactly sure how long she was on the ground was able to get herself back up. Told her daughter about it today who called the office and they recommended either pushing fluids or coming in for evaluation. They opted to come in. Patient denies any fever or chills. Denies any chest pain or shortness of breath. Denies any swelling of her legs. Does not have a colostomy. PFSH PFS Medical History Anemia Diarrhea due to drug Encounter for chemotherapy management Loss of hearing Wears glasses Post-menopausal Cancer Asthma History of pain when walking Encounter for education Regional lymph node metastasis present Degenerative joint disease Arthritis High cholesterol Migraine headache History of Meniere's disease Former smoker Hx of echocardiogram Hypertension Home Medications ?Medication ?Instructions ?Recorded ?Last Taken ?Type lisinopril 20 1 tab PO DAILY 03/18/2105/02 History mg-hydrochlorothiazide 25 mg tablet metoprolol succinate 50 mg 50 mg PO DAILY 05/13/2510/26 History tablet,extended release 24 hr Allergy/AdvReac Type Severity Reaction Status Date / Time No Known Allergies Allergy Verified 05/02/25 08:04 Family History Father Heart disease Aunt Breast cancer Surgical History History of hysteroscopy History of colectomy History of total right knee replacement Hx of colonoscopy Social History Smoking Status: Former smoker Tobacco: How many years used: 5 alcohol intake: never substance use type: does not use ROS ROS ED Constitutional Constitutional ED: Reports other Details: Decreased appetite ; Denies chills or fever(s) Eyes Eyes: Denies change in vision ENT ENT ED: Denies sore throat Cardiovascular Cardiovascular: Denies chest pain or palpitations Respiratory/Chest Respiratory/Chest: Denies cough or dyspnea Gastrointestinal Gastrointestinal: Reports diarrhea and nausea; Denies abdominal pain or vomiting Musculoskeletal Musculoskeletal: Denies arthralgias or myalgias Integumentary Reports other Details: Bruising to the right buddhism Neurologic Neurologic: Reports weakness; Denies headache(s) or paresthesias Hematologic/Lymphatic Hematologic/Lymphatic: Denies easy bleeding or easy bruising EXAM Physical Exam Const Vital Signs: 05/13/25 12:11 05/13/25 12:13 05/13/25 12:27 Temperature 98.3 F 98.9 F Temperature Source Oral Oral Pulse Rate 17 L 93 Pulse Rate [Lying] Pulse Rate [Sitting (for 1 minute prior to obtaining)] Pulse Rate [Standing (for 1 minute prior to obtaining)] Respiratory Rate 120 H 14 Respiratory Effort Normal Respiratory Pattern Normal Blood Pressure 89/53 L 99/72 Blood Pressure [Lying] Blood Pressure [Sitting (for 1 minute prior to obtaining)] Blood Pressure [Standing (for 1 minute prior to obtaining)] Blood Pressure Mean 65 81 Blood Pressure Mean [Lying] Blood Pressure Mean [Sitting (for 1 minute prior to obtaining)] Blood Pressure Mean [Standing (for 1 minute prior to obtaining)] Pulse Ox 94 97 Oxygen Delivery Method Room Air Room Air 05/13/25 13:13 05/13/25 14:00 05/13/25 15:00 Temperature 98.6 F 98.7 F 98.7 F Temperature Source Temporal Temporal Oral Pulse Rate 89 89 78 Pulse Rate [Lying] Pulse Rate [Sitting (for 1 minute prior to obtaining)] Pulse Rate [Standing (for 1 minute prior to obtaining)] Respiratory Rate 18 18 27 H Respiratory Effort Respiratory Pattern Blood Pressure 100/60 107/59 L 105/67 Blood Pressure [Lying] Blood Pressure [Sitting (for 1 minute prior to obtaining)] Blood Pressure [Standing (for 1 minute prior to obtaining)] Blood Pressure Mean 73 75 79 Blood Pressure Mean [Lying] Blood Pressure Mean [Sitting (for 1 minute prior to obtaining)] Blood Pressure Mean [Standing (for 1 minute prior to obtaining)] Pulse Ox 99 97 95 Oxygen Delivery Method Room Air Room Air 05/13/25 16:00 05/13/25 16:02 Temperature Temperature Source Pulse Rate 81 Pulse Rate [Lying] 85 Pulse Rate [Sitting (for 1 minute prior to obtaining)] 92 Pulse Rate [Standing (for 1 minute prior to obtaining)] 114 H Respiratory Rate 14 Respiratory Effort Respiratory Pattern Blood Pressure 126/74 H Blood Pressure [Lying] 115/69 Blood Pressure [Sitting (for 1 minute prior to obtaining)] 114/75 Blood Pressure [Standing (for 1 minute prior to obtaining)] 114/92 H Blood Pressure Mean 91 Blood Pressure Mean [Lying] 84 Blood Pressure Mean [Sitting (for 1 minute prior to obtaining)] 88 Blood Pressure Mean [Standing (for 1 minute prior to obtaining)] 99 Pulse Ox 96 Oxygen Delivery Method Room Air Positive well nourished and well developed General Appearance ED: well developed and NAD HEENT Reports dry mucous membranes HEENT Narrative: Ecchymosis to the right buddhism area. No hematoma appreciated. No signs of facial trauma. No hemotympanum. trauma Mouth ED: Yes dry mucous membranes Mouth: dry mucous membranes Neck supple and no JVD Chest Wall inspection of chest normal and palpation of chest normal Resp normal respiratory effort and clear to auscultation bilaterally Cardio regular rhythm and no murmurs Rate: tachycardic GI normal to inspection, nondistended, normoactive bowel sounds and non-tender Auscultation: normoactive bowel sounds Palpation: soft; Negative for tender or guarding Extremity normal to inspection General Extremety ED: Negative for edema General Extremity: Negative for edema Neuro oriented x3 Sensorium / Orientation: alert Motor Exam: general weakness Psych mental status grossly normal MDM MDM MDM Narrative Medical decision making narrative: Patient evaluated for near syncopal episode that occurred yesterday with subsequent head injury. She is been very weak. Upon arrival she is tachycardic and hypotensive. Side claiming chest pain shortness of breath. Has been having ongoing diarrhea. No report of any fevers. Differential includes dehydration, sepsis, RODOLFO, hypovolemia, arrhythmia, intracranial hemorrhage, electrolyte disturbance. Given her ongoing diarrhea lower suspicion for bowel obstruction. She is not any abdominal pain is low suspicion for acute intra-abdominal infection or acute surgical process. Patient does have a leukopenia with white blood cell count of 2.4 and absolute neutrophil count of 0.7. She is afebrile. She does not require empiric antibiotics or cultures at this time. Lactate elevated 2.4 and it is unclear if this is from hypovolemia, hypoperfusion or sepsis. BMP shows hyponatremia the sodium 132, potassium 3.1 however bicarb and anion gap as well as kidney function are normal. Liver enzymes are normal. CT of the brain obtained because of her syncopal episode and head injury. There is a focal dense calcification of the left parotid lobe measuring 1.8 cm which is concern for metastatic spread. No report of any vasogenic edema associated with it. Patient is given 2 L of IV fluid. On repeat evaluation she states she is feeling better. She is finally able to provide urine. This is pending. Will obtain orthostatic vital signs. She is unaware of any history of atrial fibrillation which she states once her PCP did tell her that her heart sounded irregular. Case discussed with Dr. Conn, oncology on-call about the CT findings. He states she will need an MRI. If she gets discharged home they can arrange for it on Thursday. States that for diarrhea associated with her chemotherapy she can off-label use Imodium every 2 hours for up to 12 doses in 1 day. No other recommendations at this time. Repeat EKG continues show atrial flutter. I do not see any prior record in our system of a history of atrial flutter. After 2 L of fluid patient's blood pressure is no longer orthostatic positive but her heart rate does go up. Her urinalysis is concerning for infection with 500 leukocyte esterase, 5-10 white blood cells and 2+ bacteria. Given presentation of syncope, leukopenia, urinary tract infection, dehydration, head injury and possible new onset atrial flutter I do think she would benefit from admission for further monitoring overnight. Patient is agreeable at this time. Will discuss with hospitalist for admission. Will hold off on anticoagulation given her recent head injury and possible new brain mass. Does not require rate control at this time. Lab Data Attestation: I reviewed the patient's lab results. Labs: Laboratory Results - last 24 hr 05/13/25 05/13/25 12:54 15:43 WBC 2.4 L RBC 3.80 L Hgb 11.5 L Hct 34.0 L MCV 89.5 MCH 30.3 MCHC 33.8 RDW Std Deviation 45.4 H RDW Coeff of [place] 14.7 H Plt Count 225 MPV 9.0 Neut % (Auto) Not Reportable Absolute Neuts (auto) 0.7 L Absolute Lymphs (auto) 0.98 Total Counted 100 Neutrophils % (Manual) 28 L Band Neutrophils % 2 Lymphocytes % (Manual) 40 Monocytes % (Manual) 29 H Eosinophils % (Manual) 1 Sodium 132 L Potassium 3.1 L Chloride 98 Carbon Dioxide 21.5 Anion Gap 13 BUN 12 Creatinine 0.83 Estim Creat Clear Calc 57.64 Est GFR (MDRD) Non-Af 74 BUN/Creatinine Ratio 15.0 Glucose 147 H Lactic Acid 2.4 H* Calcium 8.7 Magnesium 1.9 Total Bilirubin 0.42 AST 24 ALT 25 Alkaline Phosphatase 74 Total Protein 6.4 Albumin 3.1 L Globulin 3.4 Albumin/Globulin Ratio 0.9 Lipase 13 Urine Color Yellow Urine Clarity Sl. Cloudy Urine pH 6.5 Ur Specific [place] 1.010 Urine Protein 30 H Urine Glucose (UA) Normal Urine Ketones Negative Urine Occult Blood 10 H Urine Nitrite Negative Urine Bilirubin Negative Urine Urobilinogen Normal Ur Leukocyte Esterase 500 H Urine RBC 0-5 SEEN Urine WBC 5-10 SEEN Ur Squamous Epith Cells 0-5 SEEN Amorphous Sediment 1+ Urine Bacteria 2+ Hyaline Casts 0-5 SEEN Urine Mucus 1+ Radiography Chest X-Ray - ED: 1 View, Read by ED Physician, Read by Radiologist and No Acute Disease Diagnostic Testing: Clinical Impression(s) from Imaging Studies Brain CT 05/13/25 12:46 IMPRESSION: Focal calcification in the left parietal lobe measuring up to 1.8 cm, concerning for metastatic spread in this patient with history of colon cancer. Differential also includes other neoplasms (meningioma) or sequela of prior insult (vascular, infectious/inflammatory). Recommend contrast-enhanced MRI for further evaluation, if not previously performed. Reading Location: [id number] Chest X-Ray 05/13/25 13:05 IMPRESSION: No acute cardiopulmonary abnormality. Reading Location: [id number] Rhythm Strip Rhythm Strip: A-fib Rate: 97 Ectopy: None EKG Initial EKG: Attestation: I personally reviewed and interpreted this EKG as follows: Interpretation: Atrial Flutter Comments: Atrial flutter rate of 97 bpm with variable AV block Normal axis Normal ST segments Normal QT/QTc Compared to prior EKG patient now appears to have atrial flutter Follow-up EKG: Attestation: I personally reviewed and interpreted this EKG as follows: Interpretation: Atrial Flutter Comments: Atrial flutter with variable AV block at a rate of 82 bpm Normal axis Normal intervals Normal ST segments Low voltage QRS Management Discussion w/another healthcare provider: [employer]chool Substitute Teacher (oncology ) Discharge Plan Triage Chief Complaint: Syncope ED Provider: Cadence Castillo Dx/Rx/DC Orders Clinical Impression: Syncope and collapse, Colon cancer, Closed head injury, Acute hypokalemia, Neutropenia, Acidosis, lactic, New onset atrial flutter, Leukopenia, Abnormal brain CT, Acute UTI, Personal history of chemotherapy Prescriptions: No Action lisinopril-hydrochlorothiazide 20-25 mg Tablet 1 tab PO DAILY metoprolol succinate 50 mg tablet extended release 24 hr 50 mg PO DAILY Primary Care Provider: Shu Chow Referrals: Shu Chow PA [Primary Care Provider] - Print Language: Greenlandic
[2025-05-13 14:27] LABS: Neutrophil-Band 2 % (0-5); Neutrophil-Segmented 28 % (47-70); Total Cells Counted 100 (MANUAL DIFF)
[2025-05-13] MEDS: 0.9% Normal Saline (1000mL) 1,000 ML 999 ML IV (14:36)
[2025-05-13] MEDS: Potassium Chloride 10mEq/100mL 10 MEQ/100 ML IV.SOLN. 100 MEQ IV BOLUS (15:19)
--- NOTE | 2025-05-13 15:48 | EKG12_ITS ---
Test Reason : REPEAT Blood Pressure : */* mmHG Vent. Rate : 82 BPM Atrial Rate : 374 BPM P-R Int : * ms QRS Dur : 84 ms QT Int : 408 ms P-R-T Axes : 94 31 -58 degrees QTcB Int : 476 ms Atrial flutter with variable A-V block Low voltage QRS Abnormal ECG Confirmed by PHILLY PIRES, LAURA ([id number]), editorial writer MELISSA VALENTE ([id number]) on 05/15/2025 11:33:02 AM Referred By: Confirmed By: LAURA FRAGA MD
[2025-05-13 15:57] LABS: Color, Urine Yellow (Yellow); Glucose, Dipstick Normal (Normal); Ketone-Dipstick Negative (Negative); Leukocyte Esterase-Dipstick 500 /ul (Negative); Nitrite-Dipstick Negative (Negative); Occult Blood-Urine 10 /ul (Negative); Protein-Dipstick 30 mg/dl (Negative); Specific Gravity, Urine 1.010 (1.002-1.030); Urine Bilirubin Dipstick Negative (Negative)
[2025-05-13 16:39] LABS: Red Blood Cells-Urine 0-5 SEEN /hpf (0-5); Squamous Epithelial Cells - UA 0-5 SEEN /hpf (5-10)
[2025-05-13 16:41] LABS: Mucous, Urine 1+ /hpf (<or=2+)
[2025-05-13 17:03] LABS: Reflex Lactate? Y
--- OUTSIDE RECORDS SUMMARY | 2025-05-13 17:15 | XMS RPT_ITS | CCD ---
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 . Unavailable ENT Provider Unavailable Unavailable General Surgery Provider Unavailable Unavail able [facility], . Unavailable Lin PIRES, Dr. Bart Rausch Unavailable [phone] Orthopedic Provider Unavailable Unavailable Stella LAI, Hiral Shannon Unavailable [phone] Vanna CHAR FILTER TANK TENDER HEAD, Becky Unavailable Joao ZHUN, Sasha Amador Unavailable Unavailable Keila ZHUN, Roverto Rausch Unavailable Unavailab Nicole Mcmillan Unavailable Unavailable Russ ZHUN, Irish Unavailable Unavailabl e Citlali CHAR FILTER TANK TENDER HEAD, Venessa K Unavailable Josie Bray BRIDGE MAINTAINER-C, Robin Shay Unavailable Khalida Loya RN Unavailable Unavailable Silvestre ZHUN, Karlie Unavailable Unavailable Nathalie Jett MA Unavailable Unavailable Benny CHAR FILTER TANK TENDER HEAD, Andrew Unavailable Unavailable Unavailable Unavailable Carlie Xiao [...] Unavailable CHOW, SHU J Primary Care Unavailable COHW, SHU J Admitting Unavailable CHOW, SHU J Attending Unavailable PROVIDER, UNKNOWN Consulting Unavailable Chow PA-C, Shu J Primary Care Provider Santana TELLO, Hiral Mays Unavailable Unavaila brant LEGER, Sachi Foster Unavailable Zeferino TELLO, Eleonora Unavailable Unavailable Amy Zhang Unavailable Unavailable Chow PA-C, Shu J Primary Care Provider Cheyrl MACARIO, Crystal Unavailable Unavail able Chow PA, Shu Primary Care Provider Shikha Marroquin LPN Attending Provider Unavailab Dr. Sachi Steward MD Referring Provider Dr. [place] MD Attending Provider Dr. [place] MD Referring Provider Chow PA, Shu Referring Provider Keila MELLO-C, Alyssa Attending Provider Dr. Michael Gaines MD Attending Provider Dr. Michael Gaines MD Referring Provider Dr. Michael Gaines MD Other Provider Dr. [place] MD Referring Provider [...] J Primary Care Unavailable BOLESFLEX Referring Unavailable CHKAA, SACHI G Attending Unavailable CHOW, SHU J Referring Unavailable CHOW, SHU J Primary Care Unavailable CHAKA, SACHI G Attending Unavailable AGATA MONTOYA Attending Unavailable CHOW, SHU J Primary Care Unavailable MALICK RICCI [...] Dr. [place] MD Referring Provider [phone] Michael Gaines Referring Unavailable WanekMichael Attending Unavailable WanekMichael Consulting Unavailable Chow, Shu Primary Care Unavailable Chow, Shu Primary Care Unavailable Chow, Shu Referring Unavailable Nwe [place] Attending Unavailable Chow, Shu Referring Unavailable Keila BRIDGE MAINTAINER, Alyssa Attending Unavailable Chow, Shu Primary Care Unavailable Chow, Shu Referring Unavailable Keila BRIDGE MAINTAINER, Alyssa Attending Unavailable Chow, Shu Primary Care Unavailable Chow, Shu Referring Unavailable Keila BRIDGE MAINTAINER, Alyssa Attending Unavailable Chow, Shu Primary Care Unavailable Chow, Shu Referring Unavailable WanekMichael Attending Unavailable Chow, Shu Primary Care Unavailable Chow, Shu Primary Care Unavailable [place] Attending Unavailable Chaka, Sachi Referring Unavailable Chow, Shu Primary Care Unavailable Chow, Shu Referring Unavailable Keila BRIDGE MAINTAINER, Alyssa Attending Unavailable Michael Gaines Referring Unavailable Michael Gaines Attending Unavailable [facility] Primary Care Unavailable Chow Shu Primary Care Unavailable [place] Referring Unavailable [place] Attending Unavailable [facility] Care Unavailable Shikha Marroquin Attending Unavailable Medications [...] over 2 minutes. Telemetry required except for GRAIN GRADER patients on [address] 6 and 7. [...] 01/24/2025 Discontinued (Stop Taking at Discharge) nystatin 416507 unt/ml topical cream (20 sources) Polyene Antifungal Start: 06-15-2019 End: 01-29-2023 Nystatin 724148 UNIT/GM External Cream ; 1 (one) Application [...] patient does not have Healthcare Power of Paper Machine Backtender or Living Will. 06-16-2019 Unclassified (20 sources) [...] patient does not have Healthcare Power of Paper Machine Backtender or Living Will. 11-09-2017 Unclassified (20 sources) [ADDITIONAL REASON] Follow up from hospital stay - Name of Hospital: [facility]. Date of Admission: 10/25/2017. Date of [...] that her back was bothering her so [facility] checked and she has 5 spurs [...] patient does not have Healthcare Power of Paper Machine Backtender or Living Will. 06-16-2019 Unclassified (17 sources) [...] patient does not have Healthcare Power of Paper Machine Backtender or Living Will. 11-09-2017 Unclassified (20 sources) [...] from hospital stay - Name of Hospital: [facility]. Date of Admission: 10/25/2017. Date of [...] (Dr Kalpesh Boles) and Location of procedure: ([facility]) There have been no problems with general [...] patient does not have Healthcare Power of Paper Machine Backtender or Living Will. Note for MCR Well [...] an upper respiratory infection (cold symptoms around [facility]). Patient denies history of seasonal allergies, [...] had a colonoscopy. Had labs done through [facility] outreach screening but never received the results. [...] patient does not have Healthcare Power of Paper Machine Backtender or Living Will. Note for MCR Well [...] patient does not have Healthcare Power of Paper Machine Backtender or Living Will. Note for MCR Well Adult: Has spoken with fruit express agent and is in process.Started chemo - has had one treatment so far. Every other week x 12 sessions. 03-24-2025 Results Test Name Value Interpretation Reference Range Facility Carcinoembryonic Antigenon 0 05-03-2025 CEA 8.3 ng/mL High 0.0-4.7 [facility] Comment on above: Result Comment: Nons mokers <3.9 Smokers <5.6 [facility] Electrochemiluminescence Immunoassay (ECLIA) Values obtained with different assay methods or kits cannot be used interchangeably. Results cannot be interpreted as absolute evidence of the presence or absence of malignant disease. Performed at: - [facility], [place], [place] [id number] Scouts: Abimael Sheridan PhD, Phone: [phone] Performed By: #### L 503.0106, L503.6550, L3100.2300, L501.2300, L503.6030 ####[facility] [address] [place], [address] Absolute lymphocyte countOrd ered By: [facility] on 05-02-2025 Lymphocytes Auto (Unsp spec) [#/Vol] 1.36 10*3/uL 0.83-4.51 [facility] Absolute neutrophil countOrd ered By: [facility] on 05-02-2025 Neutrophils (Bld) [#/Vol] 1.9 10*3/uL Low 2.0-7.7 [facility] Anion gap in Serum or Plasma Ordered By: [facility] on 05-02-2025 Anion gap [Moles/Vol] 13 mmol/L 5-15 [facility] Automated lymphocyte count a s percentage of total leukocytesOrdered By: [facility] on 05-02-2025 Lymphocytes/100 WBC Auto (Unsp spec) 32.5 % 19-41 [facility] BUN/creatinine ratioOrdered By: [facility] on 05-02-2025 Urea nitrogen/Creatinine [Mass ratio] 22.2 mg/mg High 10-20 [facility] Basophil percentageOrdered B y: [facility] [place]ia on 05-02-2025 Basophils/100 WBC (Bld) 1.0 % 0-1 [facility] Bilirubin, totalOrdered By: [facility] on 05-02-2025 Bilirubin [Mass/Vol] 0.31 mg/dL 0.00-1.30 [facility] CBC W/Diff, Automatedon Absolute Lymph 1.36 X10 3/uL Normal 0.83-4.51 [facility] Comment on above: Performed By: #### L 100.0100, L500.4050, L501.5200 #### [facility] [address] [place], [address] Absolute Neut 1.9 X10 3/uL Low 2.0-7.7 [facility] Comment on above: Performed By: #### L 100.0100, L500.4050, L501.5200 #### [facility] [address] [place], [address] Basophils/100 WBC (Bld) 1.0 % Normal 0-1 [facility] Comment on above: Performed By: #### L 100.0100, L500.4050, L501.5200 #### [facility] [address] [place], [address] Eosinophils/100 WBC (Bld) 8.6 % High 0-5 [facility] Comment on above: Performed By: #### L 100.0100, L500.4050, L501.5200 #### [facility] [address] [place], [address] Erythrocyte distribution width (RBC) [Ratio] 14.4 % Normal 11.6-14.6 [facility] Comment on above: Performed By: #### L 100.0100, L500.4050, L501.5200 #### [facility] [address] [place], [address] Hematocrit (Bld) [Volume fraction] 36.1 % Low 37-47 [facility] Comment on above: Performed By: #### L 100.0100, L500.4050, L501.5200 #### [facility] [address] [place], [address] Hemoglobin (Bld) [Mass/Vol] 11.9 g/dL Low 12.0-15.0 [facility] Comment on above: Performed By: #### L 100.0100, L500.4050, L501.5200 #### [facility] [address] [place], [address] IG% 0.700 Normal 0.0-0.9 [facility] Comment on above: Result Comment: IG% - Immature Granulocytes (promyelocytes, myelocytes and metamyelocytes) > 1% indicates that a LEFT SHIFT is Present. Performed By: #### L 100.0100, L500.4050, L501.5200 #### [facility] [address] [place], [address] Lymphocytes/100 WBC (Bld) 32.5 % Normal 19-41 [facility] Comment on above: Performed By: #### L 100.0100, L500.4050, L501.5200 #### [facility] [address] [place], [address] MCH (RBC) [Entitic mass] 29.8 pg Normal 27.0-32.0 [facility] Comment on above: Performed By: #### L 100.0100, L500.4050, L501.5200 #### [facility] [address] [place], [address] MCHC (RBC) [Mass/Vol] 33.0 g/dL Normal 32-36 [facility] Comment on above: Performed By: #### L 100.0100, L500.4050, L501.5200 #### [facility] [address] [place], [address] MCV (RBC) [Entitic vol] 90.5 fL Normal 81-99 [facility] Comment on above: Performed By: #### L 100.0100, L500.4050, L501.5200 #### [facility] [address] [place], [address] Monocytes/100 WBC (Bld) 11.5 % High 0-10 [facility] Comment on above: Performed By: #### L 100.0100, L500.4050, L501.5200 #### [facility] [address] [place], [address] Neutrophils/100 WBC (Bld) 45.7 % Low 47-70 [facility] Comment on above: Performed By: #### L 100.0100, L500.4050, L501.5200 #### [facility] [address] [place], [address] Nucleated RBC (Bld) [#/Vol] 0 10*3/uL Normal 0-5 [facility] Comment on above: Performed By: #### L 100.0100, L500.4050, L501.5200 #### [facility] [address] [place], [address] Platelet mean volume (Bld) [Entitic vol] 8.3 fL Normal 6.2-12.0 [facility] Comment on above: Performed By: #### L 100.0100, L500.4050, L501.5200 #### [facility] [address] [place], [address] Platelets (Bld) [#/Vol] 197 10*3/uL Normal 150-450 [facility] Comment on above: Performed By: #### L 100.0100, L500.4050, L501.5200 #### [facility] [address] [place], [address] RBC (Bld) [#/Vol] 3.99 10*6/uL Low 4.2-5.4 [facility] Comment on above: Performed By: #### L 100.0100, L500.4050, L501.5200 #### [facility] [address] [place], [address] RDW SD 43.6 fl Normal 35.1-43.9 [facility] Comment on above: Performed By: #### L 100.0100, L500.4050, L501.5200 #### [facility] [address] [place], [address] WBC (Bld) [#/Vol] 4.2 10*3/uL Low 4.4-11.0 [facility] Comment on above: Performed By: #### L 100.0100, L500.4050, L501.5200 #### [facility] [address] [place], [address] Carbon dioxide, total [Moles /volume] in Central venous bloodOrdered By: [place] on 05-02-2025 CO2 [Moles/Vol] 22.3 mmol/L 21.0-32.0 [facility] Chloride assayOrdered By: Ru [place] on 05-02-2025 Chloride [Moles/Vol] 103 mmol/L 98-108 [facility] Comprehensive Metabolic Prof ilon 05-02-2025 Albumin [Mass/Vol] 3.4 g/dL Normal 3.4-4.8 [facility] Comment on above: Performed By: #### L 100.0100, L500.4050, L501.5200 #### [facility] [address] [place], [address] Albumin/Globulin [Mass ratio] 1.1 {ratio} Normal 0.9-2.4 [facility] Comment on above: Performed By: #### L 100.0100, L500.4050, L501.5200 #### [facility] [address] [place], [address] ALK PHOS 82 U/L Normal 35-104 [facility] Comment on above: Performed By: #### L 100.0100, L500.4050, L501.5200 #### [facility] [address] [place], [address] ALT [Catalytic activity/Vol] 53 U/L High <=34 [facility] Comment on above: Performed By: #### L 100.0100, L500.4050, L501.5200 #### [facility] [address] [place], [address] AST [Catalytic activity/Vol] 48 U/L High <=31 [facility] Comment on above: Performed By: #### L 100.0100, L500.4050, L501.5200 #### [facility] [address] [place], [address] Bilirubin [Mass/Vol] 0.31 mg/dL Normal 0.00-1.30 [facility] Comment on above: Performed By: #### L 100.0100, L500.4050, L501.5200 #### [facility] [address] [place], [address] BUN/CRE 22.2 RATIO High 10-20 [facility] Comment on above: Performed By: #### L 100.0100, L500.4050, L501.5200 #### [facility] [address] [place], [address] Calcium [Mass/Vol] 9.1 mg/dL Normal 7.6-11.0 [facility] Comment on above: Performed By: #### L 100.0100, L500.4050, L501.5200 #### [facility] [address] [place], [address] Chloride [Moles/Vol] 103 mmol/L Normal 98-108 [facility] Comment on above: Performed By: #### L 100.0100, L500.4050, L501.5200 #### [facility] [address] [place], [address] CO2 [Moles/Vol] 22.3 mmol/L Normal 21.0-32.0 [facility] Comment on above: Performed By: #### L 100.0100, L500.4050, L501.5200 #### [facility] [address] [place], [address] Creatinine [Mass/Vol] 0.76 mg/dL Normal 0.70-1.20 [facility] Comment on above: Performed By: #### L 100.0100, L500.4050, L501.5200 #### [facility] [address] [place], [address] ECRCL 60.24 ml/min Normal 50-250 [facility] Comment on above: Performed By: #### L 100.0100, L500.4050, L501.5200 #### [facility] [address] [place], [address] GAP 13 Normal 5-15 [facility] Comment on above: Performed By: #### L 100.0100, L500.4050, L501.5200 #### [facility] [address] [place], [address] GFR/1.73 sq M.predicted among non-blacks MDRD (S/P/Bld) [Vol rate/Area] 82 mL/min/{1.73_m2} Normal >60 [facility] Comment on above: Result Comment: mL/m in/1.73m2 CKD-EPI Creatinine Equation (2020) Performed By: #### L 100.0100, L500.4050, L501.5200 #### [facility] [address] [place], [address] Globulin (S) [Mass/Vol] 3.1 g/dL Normal 2.2-4.2 [facility] Comment on above: Performed By: #### L 100.0100, L500.4050, L501.5200 #### [facility] [address] [place], [address] Glucose [Mass/Vol] 153 mg/dL High 70-99 [facility] Comment on above: Performed By: #### L 100.0100, L500.4050, L501.5200 #### [facility] [address] [place], [address] Potassium [Moles/Vol] 3.3 mmol/L Normal 3.3-5.1 [facility] Comment on above: Performed By: #### L 100.0100, L500.4050, L501.5200 #### [facility] [address] [place], [address] Sodium [Moles/Vol] 138 mmol/L Normal 133-145 [facility] Comment on above: Performed By: #### L 100.0100, L500.4050, L501.5200 #### [facility] [address] [place], [address] T PROT 6.5 g/dL Normal 5.9-8.4 [facility] Comment on above: Performed By: #### L 100.0100, L500.4050, L501.5200 #### [facility] [address] [place], [address] Urea nitrogen [Mass/Vol] 17 mg/dL Normal 4-19 [facility] Comment on above: Performed By: #### L 100.0100, L500.4050, L501.5200 #### [facility] [address] [place], [address] Eosinophil percentageOrdered By: [place] on 05-02-2025 Eosinophils/100 WBC (Bld) 8.6 % High 0-5 [facility] Erythrocyte distribution wid th ratioOrdered By: [place] on 05-02-2025 Erythrocyte distribution width (RBC) [Ratio] 14.4 % 11.6-14.6 [facility] Erythrocyte distribution wid th standard deviationOrdered By: [place] on 05-02-2025 Erythrocyte distribution width (RBC) [Ratio] 43.6 fl 35.1-43.9 [facility] Ferritinon 05-02-2025 Ferritin [Mass/Vol] 151 ng/mL Normal 22-378 [facility] Comment on above: Performed By: #### L 503.0106, L503.6550, L3100.2300, L501.2300, L503.6030 ####[facility] [address] [place], [place], [address] Glomerular filtration rate ( GFR) estimation/1.73 sq m using serum, plasma, or whole bOrdered By: [place] on 05-02-2025 GFR/1.73 sq M.predicted among non-blacks MDRD (S/P/Bld) [Vol rate/Area] 82 mL/min/{1.73_m2} >60 [facility] Comment on above: mL/min/1.73m2 CKD-EP I Creatinine Equation (2020) Hematocrit Auto (Bld) [Volum e fraction]Ordered By: [place] on 05-02-2025 Hematocrit (Bld) [Volume fraction] 36.1 % Low 37-47 [facility] Hemoglobin measurementOrdere d By: [place] on 05-02-2025 Hemoglobin (Bld) [Mass/Vol] 11.9 g/dL Low 12.0-15.0 [facility] Immature granulocytes/100 WB C Auto (Bld)Ordered By: [place] on 05-02-2025 Immature granulocytes/100 WBC (Bld) 0.700 % 0.0-0.9 [facility] Comment on above: IG% - Immature Granu locytes (promyelocytes, myelocytes and metamyelocytes) > 1% indicates that a LEFT SHIFT is Present. Iron+Iron Binding Capacityon 05-02-2025 Iron [Mass/Vol] 70 ug/dL Normal 50-170 [facility] Comment on above: Performed By: #### L 503.0106, L503.6550, L3100.2300, L501.2300, L503.6030 ####[facility] [address] [place], [place], [address] IRON SATURATION 21.0 Normal 13-59 [facility] Comment on above: Performed By: #### L 503.0106, L503.6550, L3100.2300, L501.2300, L503.6030 ####[facility] [address] [place], [address] TIBC 337 ug/dL Normal 250-450 [facility] Comment on above: Performed By: #### L 503.0106, L503.6550, L3100.2300, L501.2300, L503.6030 ####[facility] [address] [place], [address] UIBC 267 ug/dL Normal 228-428 [facility] Comment on above: Performed By: #### L 503.0106, L503.6550, L3100.2300, L501.2300, L503.6030 ####[facility] [address] [place], [address] Laboratory - Chemistry and C hemistry - challengeOrdered By: [place] on 05-02-2025 AST [Catalytic activity/Vol] 48 U/L High <32 [facility] MCV (mean corpuscular volume ) determinationOrdered By: [place] on 05-02-2025 MCV (RBC) [Entitic vol] 90.5 fL 81-99 [facility] Magnesiumon 05-02-2025 Magnesium [Mass/Vol] 2.1 mg/dL Normal 1.5-2.2 [facility] Comment on above: Performed By: #### L 100.0100, L500.4050, L501.5200 #### [facility] [address] [place], [address] Magnesium measurement (mass/ volume)Ordered By: [place] on 05-02-2025 Magnesium (Unsp spec) [Mass/Vol] 2.1 mg/dL 1.5-2.2 [facility] Mean corpuscular hemoglobin (MCH) determinationOrdered By: [place] on 05-02-2025 MCH (RBC) [Entitic mass] 29.8 pg 27.0-32.0 [facility] Mean corpuscular hemoglobin concentration (MCHC) determinationOrdered By: [place] on 05-02-2025 MCHC (RBC) [Mass/Vol] 33.0 g/dL 32-36 [facility] Mean platelet volume determi nationOrdered By: [facility] [place] on 05-02-2025 Platelet mean volume (Bld) [Entitic vol] 8.3 fL 6.2-12.0 [facility] Monocyte percentageOrdered B y: [facility] [place] on 05-02-2025 Monocytes/100 WBC (Bld) 11.5 % High 0-10 [facility] Neutrophil percentageOrdered By: [facility] on 05-02-2025 Neutrophils/100 WBC (Bld) 45.7 % Low 47-70 [facility] Nucleated red blood cell per centageOrdered By: [facility] on 05-02-2025 Nucleated RBC/100 WBC (Bld) [Ratio] 0 % 0-5 [facility] Oncology Visit Reporton 07 Oncology Visit Report [facility] [facility] [address] [place] [id number] OFFICE VISIT Date of Service: 05/02/25 0800 MR#: [id number] Acct: [id number] Name: JESSIKA CARRILLO Rep #: [id number] : 1950 From: Alyssa Lynch NP BRIDGE MAINTAINER -C Age/Sex: 74/F Location[place] [facility] [place]: Signed HPI Subjective Date of Service 05/02/25 Chief Complaint Colon cancer on treatment History of Present Illness 74-year-old female with no family of colon cancer had screening colonoscopy August 17, [address] Boles at [place] with 2 sessile polypoid lesions were found, [...] left kidney. Patient was then referred to [facility] for further management. December 31, 2024 MRI [...] January 23, 2025 robotic right hemicolectomy at [facility] by Dr. [place]. Pathology: Right colon terminal [...] January 23, 2025 robotic right hemicolectomy at [facility]. March 21, 2025 adjuvant modified FOLFOX 6 [...] abd pain, N/V, swelling of her extremities. [facility] Medical History Anemia Diarrhea due to drug [...] H ist (more content not included)... Normal [facility] Phosphoruson 05-02-2025 Phosphate [Mass/Vol] 3.0 mg/dL Normal 2.7-4.5 [facility] Comment on above: Performed By: #### L 503.0106, L503.6550, L3100.2300, L501.2300, L503.6030 #### [facility] [address] [place], [address] Platelet countOrdered By: [place] on 05-02-2025 Platelets (Bld) [#/Vol] 197 10*3/uL 150-450 [facility] Potassium measurement (mass/ volume)Ordered By: [place] on 05-02-2025 Potassium (Unsp spec) [Mass/Vol] 3.3 mmol/L 3.3-5.1 [facility] RBC Auto (Bld) [#/Vol]Ordere d By: [place] on 05-02-2025 RBC (Bld) [#/Vol] 3.99 10*6/uL Low 4.2-5.4 [facility] Serum creatinine measurement (mass/volume)Ordered By: [place] on 05-02-2025 Creatinine [Mass/Vol] 0.76 mg/dL 0.70-1.20 [facility] Serum globulin measurementOr dered By: [place] on 05-02-2025 Globulin (S) [Mass/Vol] 3.1 g/dL 2.2-4.2 [facility] Serum glucose measurement (m ass/volume)Ordered By: [place] on 05-02-2025 Glucose [Mass/Vol] 153 mg/dL High 70-99 [facility] Serum or plasma alanine rojo otransferase (ALT) measurementOrdered By: [place] on 05-02-2025 ALT [Catalytic activity/Vol] 53 U/L High <35 [facility] Serum or plasma albumin alfredo urement (mass/volume)Ordered By: [place] on 05-02-2025 Albumin [Mass/Vol] 3.4 g/dL 3.4-4.8 [facility] Serum or plasma albumin/glob ulin mass ratioOrdered By: [place] on 05-02-2025 Albumin/Globulin [Mass ratio] 1.1 {ratio} 0.9-2.4 [facility] Serum or plasma alkaline marisabel sphatase measurementOrdered By: [place] on 05-02-2025 ALP [Catalytic activity/Vol] 82 U/L 35-104 [facility] Serum or plasma calcium alfredo urement (mass/volume)Ordered By: [place] on 05-02-2025 Calcium [Mass/Vol] 9.1 mg/dL 7.6-11.0 [facility] Serum or plasma urea nitroge n measurement (mass/volume)Ordered By: [place] on 05-02-2025 Urea nitrogen [Mass/Vol] 17 mg/dL 4-19 [facility] Sodium levelOrdered By: Kurt mejia Senia on 05-02-2025 Sodium [Moles/Vol] 138 mmol/L 133-145 [facility] Total proteinOrdered By: Shady burroughs Senia on 05-02-2025 Protein [Mass/Vol] 6.5 g/dL 5.9-8.4 [facility] Vitamin B12on 05-02-2025 Cobalamin (Vitamin B12) [Mass/Vol] 633 pg/mL Normal 180-914 [facility] Comment on above: Performed By: #### L 503.0106, L503.6550, L3100.2300, L501.2300, L503.6030 ####[facility] [address] [place], [address] White blood cell (WBC) count Ordered By: Kurtjackie Conn on 05-02-2025 WBC (Bld) [#/Vol] 4.2 10*3/uL Low 4.4-11.0 [facility] Absolute lymphocyte countOrd ered By: [place] Senia on 04-18-2025 Lymphocytes Auto (Unsp spec) [#/Vol] 1.59 10*3/uL 0.83-4.51 [facility] Absolute neutrophil countOrd ered By: [place] on 04-18-2025 Neutrophils (Bld) [#/Vol] 2.6 10*3/uL 2.0-7.7 [facility] Anion gap in Serum or Plasma Ordered By: [place] on 04-18-2025 Anion gap [Moles/Vol] 12 mmol/L 5-15 [facility] Automated lymphocyte count a s percentage of total leukocytesOrdered By: [place] on 04-18-2025 Lymphocytes/100 WBC Auto (Unsp spec) 30.1 % 19-41 [facility] BUN/creatinine ratioOrdered By: [place] on 04-18-2025 Urea nitrogen/Creatinine [Mass ratio] 18.4 mg/mg 10-20 [facility] Basophil percentageOrdered B y: [place] on 04-18-2025 Basophils/100 WBC (Bld) 0.9 % 0-1 [facility] Bilirubin, totalOrdered By: [place] on 04-18-2025 Bilirubin [Mass/Vol] 0.25 mg/dL 0.00-1.30 [facility] CBC W/Diff, Automatedon 04-02 Absolute Lymph 1.59 X10 3/uL Normal 0.83-4.51 [facility] Comment on above: Performed By: #### L 100.0100, L500.4050, L501.5200 ####[facility] [address] [place], [address] Absolute Neut 2.6 X10 3/uL Normal 2.0-7.7 [facility] Comment on above: Performed By: #### L 100.0100, L500.4050, L501.5200 ####[facility] [address] [place], [address] Basophils/100 WBC (Bld) 0.9 % Normal 0-1 [facility] Comment on above: Performed By: #### L 100.0100, L500.4050, L501.5200 ####[facility] [address] [place], [address] Eosinophils/100 WBC (Bld) 5.3 % High 0-5 [facility] Comment on above: Performed By: #### L 100.0100, L500.4050, L501.5200 ####[facility] [address] [place], [address] Erythrocyte distribution width (RBC) [Ratio] 13.2 % Normal 11.6-14.6 [facility] Comment on above: Performed By: #### L 100.0100, L500.4050, L501.5200 ####[facility] [address] [place], [address] Hematocrit (Bld) [Volume fraction] 35.4 % Low 37-47 [facility] Comment on above: Performed By: #### L 100.0100, L500.4050, L501.5200 ####[facility] [address] [place], [address] Hemoglobin (Bld) [Mass/Vol] 11.8 g/dL Low 12.0-15.0 [facility] Comment on above: Performed By: #### L 100.0100, L500.4050, L501.5200 ####[facility] [address] [place], [address] IG% 0.600 Normal 0.0-0.9 [facility] Comment on above: Result Comment: IG% - Immature Granulocytes (promyelocytes, myelocytes and metamyelocytes) > 1% indicates that a LEFT SHIFT is Present. Performed By: #### L 100.0100, L500.4050, L501.5200 ####[facility] [address] [place], [address] Lymphocytes/100 WBC (Bld) 30.1 % Normal 19-41 [facility] Comment on above: Performed By: #### L 100.0100, L500.4050, L501.5200 ####[facility] [address] [place], [address] MCH (RBC) [Entitic mass] 30.0 pg Normal 27.0-32.0 [facility] Comment on above: Performed By: #### L 100.0100, L500.4050, L501.5200 ####[facility] [address] [place], [address] MCHC (RBC) [Mass/Vol] 33.3 g/dL Normal 32-36 [facility] Comment on above: Performed By: #### L 100.0100, L500.4050, L501.5200 ####[facility] [address] [place], [address] MCV (RBC) [Entitic vol] 90.1 fL Normal 81-99 [facility] Comment on above: Performed By: #### L 100.0100, L500.4050, L501.5200 ####[facility] [address] [place], [address] Monocytes/100 WBC (Bld) 13.4 % High 0-10 [facility] Comment on above: Performed By: #### L 100.0100, L500.4050, L501.5200 ####[facility] [address] [place], [address] Neutrophils/100 WBC (Bld) 49.7 % Normal 47-70 [facility] Comment on above: Performed By: #### L 100.0100, L500.4050, L501.5200 ####[facility] [address] [place], [address] Nucleated RBC (Bld) [#/Vol] 0 10*3/uL Normal 0-5 [facility] Comment on above: Performed By: #### L 100.0100, L500.4050, L501.5200 ####[facility] [address] [place], [address] Platelet mean volume (Bld) [Entitic vol] 8.6 fL Normal 6.2-12.0 [facility] Comment on above: Performed By: #### L 100.0100, L500.4050, L501.5200 ####[facility] [address] [place], [address] Platelets (Bld) [#/Vol] 216 10*3/uL Normal 150-450 [facility] Comment on above: Performed By: #### L 100.0100, L500.4050, L501.5200 ####[facility] [address] [place], [address] RBC (Bld) [#/Vol] 3.93 10*6/uL Low 4.2-5.4 [facility] Comment on above: Performed By: #### L 100.0100, L500.4050, L501.5200 ####[facility] [address] [place], [address] RDW SD 42.1 fl Normal 35.1-43.9 [facility] Comment on above: Performed By: #### L 100.0100, L500.4050, L501.5200 ####[facility] [address] [place], [address] WBC (Bld) [#/Vol] 5.3 10*3/uL Normal 4.4-11.0 [facility] Comment on above: Performed By: #### L 100.0100, L500.4050, L501.5200 ####[facility] [address] [place], [address] Carbon dioxide, total [Moles /volume] in Central venous bloodOrdered By: [place] on 04-18-2025 CO2 [Moles/Vol] 24.3 mmol/L 21.0-32.0 [facility] Chloride assayOrdered By: Ru [place] on 04-18-2025 Chloride [Moles/Vol] 102 mmol/L 98-108 [facility] Comprehensive Metabolic Prof ilon 04-18-2025 Albumin [Mass/Vol] 3.6 g/dL Normal 3.4-4.8 [facility] Comment on above: Performed By: #### L 100.0100, L500.4050, L501.5200 ####[facility] [address] [place], [address] Albumin/Globulin [Mass ratio] 1.3 {ratio} Normal 0.9-2.4 [facility] Comment on above: Performed By: #### L 100.0100, L500.4050, L501.5200 ####[facility] [address] [place], [address] ALK PHOS 85 U/L Normal 35-104 [facility] Comment on above: Performed By: #### L 100.0100, L500.4050, L501.5200 ####[facility] [address] [place], [address] ALT [Catalytic activity/Vol] 24 U/L Normal <=34 [facility] Comment on above: Performed By: #### L 100.0100, L500.4050, L501.5200 ####[facility] [address] [place], [address] AST [Catalytic activity/Vol] 25 U/L Normal <=31 [facility] Comment on above: Performed By: #### L 100.0100, L500.4050, L501.5200 ####[facility] [address] [place], [address] Bilirubin [Mass/Vol] 0.25 mg/dL Normal 0.00-1.30 [facility] Comment on above: Performed By: #### L 100.0100, L500.4050, L501.5200 ####[facility] [address] [place], [address] BUN/CRE 18.4 RATIO Normal 10-20 [facility] Comment on above: Performed By: #### L 100.0100, L500.4050, L501.5200 ####[facility] [address] [place], [address] Calcium [Mass/Vol] 9.4 mg/dL Normal 7.6-11.0 [facility] Comment on above: Performed By: #### L 100.0100, L500.4050, L501.5200 ####[facility] [address] [place], [address] Chloride [Moles/Vol] 102 mmol/L Normal 98-108 [facility] Comment on above: Performed By: #### L 100.0100, L500.4050, L501.5200 ####[facility] [address] [place], [address] CO2 [Moles/Vol] 24.3 mmol/L Normal 21.0-32.0 [facility] Comment on above: Performed By: #### L 100.0100, L500.4050, L501.5200 ####[facility] [address] [place], [address] Creatinine [Mass/Vol] 0.78 mg/dL Normal 0.70-1.20 [facility] Comment on above: Performed By: #### L 100.0100, L500.4050, L501.5200 ####[facility] [address] [place], [address] ECRCL 61.03 ml/min Normal 50-250 [facility] Comment on above: Performed By: #### L 100.0100, L500.4050, L501.5200 ####[facility] [address] [place], [address] GAP 12 Normal 5-15 [facility] Comment on above: Performed By: #### L 100.0100, L500.4050, L501.5200 ####[facility] [address] [place], [address] GFR/1.73 sq M.predicted among non-blacks MDRD (S/P/Bld) [Vol rate/Area] 79 mL/min/{1.73_m2} Normal >60 [facility] Comment on above: Result Comment: mL/m in/1.73m2 CKD-EPI Creatinine Equation (2020) Performed By: #### L 100.0100, L500.4050, L501.5200 ####[facility] [address] [place], [address] Globulin (S) [Mass/Vol] 2.8 g/dL Normal 2.2-4.2 [facility] Comment on above: Performed By: #### L 100.0100, L500.4050, L501.5200 ####[facility] [address] [place], [address] Glucose [Mass/Vol] 135 mg/dL High 70-99 [facility] Comment on above: Performed By: #### L 100.0100, L500.4050, L501.5200 ####[facility] [address] [place], [address] Potassium [Moles/Vol] 3.9 mmol/L Normal 3.3-5.1 [facility] Comment on above: Performed By: #### L 100.0100, L500.4050, L501.5200 ####[facility] [address] [place], [address] Sodium [Moles/Vol] 138 mmol/L Normal 133-145 [facility] Comment on above: Performed By: #### L 100.0100, L500.4050, L501.5200 ####[facility] [address] [place], [address] T PROT 6.4 g/dL Normal 5.9-8.4 [facility] Comment on above: Performed By: #### L 100.0100, L500.4050, L501.5200 ####[facility] [address] [place], [address] Urea nitrogen [Mass/Vol] 14 mg/dL Normal 4-19 [facility] Comment on above: Performed By: #### L 100.0100, L500.4050, L501.5200 ####[facility] [address] [place], [address] Eosinophil percentageOrdered By: [place] on 04-18-2025 Eosinophils/100 WBC (Bld) 5.3 % High 0-5 [facility] Erythrocyte distribution wid th ratioOrdered By: [place] on 04-18-2025 Erythrocyte distribution width (RBC) [Ratio] 13.2 % 11.6-14.6 [facility] Erythrocyte distribution wid th standard deviationOrdered By: [place] on 04-18-2025 Erythrocyte distribution width (RBC) [Ratio] 42.1 fl 35.1-43.9 [facility] Glomerular filtration rate ( GFR) estimation/1.73 sq m using serum, plasma, or whole bOrdered By: [place] on 04-18-2025 GFR/1.73 sq M.predicted among non-blacks MDRD (S/P/Bld) [Vol rate/Area] 79 mL/min/{1.73_m2} >60 [facility] Comment on above: mL/min/1.73m2 CKD-EP I Creatinine Equation (2020) Hematocrit Auto (Bld) [Volum e fraction]Ordered By: [facility] 04-18-2025 Hematocrit (Bld) [Volume fraction] 35.4 % Low 37-47 [facility] Hemoglobin measurementOrdere d By: [place] on 04-18-2025 Hemoglobin (Bld) [Mass/Vol] 11.8 g/dL Low 12.0-15.0 [facility] Immature granulocytes/100 WB C Auto (Bld)Ordered By: [place] on 04-18-2025 Immature granulocytes/100 WBC (Bld) 0.600 % 0.0-0.9 [facility] Comment on above: IG% - Immature Granu locytes (promyelocytes, myelocytes and metamyelocytes) > 1% indicates that a LEFT SHIFT is Present. Laboratory - Chemistry and C hemistry - challengeOrdered By: [place] on 04-18-2025 AST [Catalytic activity/Vol] 25 U/L <32 [facility] MCV (mean corpuscular volume ) determinationOrdered By: [place] on 04-18-2025 MCV (RBC) [Entitic vol] 90.1 fL 81-99 [facility] Magnesiumon 04-18-2025 Magnesium [Mass/Vol] 2.0 mg/dL Normal 1.5-2.2 [facility] Comment on above: Performed By: #### L 100.0100, L500.4050, L501.5200 ####[facility] [address] [place], [address] Magnesium measurement (mass/ volume)Ordered By: [facility] on 04-18-2025 Magnesium (Unsp spec) [Mass/Vol] 2.0 mg/dL 1.5-2.2 [facility] Mean corpuscular hemoglobin (MCH) determinationOrdered By: [facility] on 04-18-2025 MCH (RBC) [Entitic mass] 30.0 pg 27.0-32.0 [facility] Mean corpuscular hemoglobin concentration (MCHC) determinationOrdered By: [facility] Senia on 04-18-2025 MCHC (RBC) [Mass/Vol] 33.3 g/dL 32-36 [facility] Mean platelet volume determi nationOrdered By: [facility] Senia on 04-18-2025 Platelet mean volume (Bld) [Entitic vol] 8.6 fL 6.2-12.0 [facility] Monocyte percentageOrdered B y: [place] on 04-18-2025 Monocytes/100 WBC (Bld) 13.4 % High 0-10 [facility] Neutrophil percentageOrdered By: [facility] Senia on 04-18-2025 Neutrophils/100 WBC (Bld) 49.7 % 47-70 [facility] Nucleated red blood cell per centageOrdered By: [facility] Senia on 04-18-2025 Nucleated RBC/100 WBC (Bld) [Ratio] 0 % 0-5 [facility] Oncology Visit Reporton 04-02 Oncology Visit Report [facility] [place] [facility] [address] [place] [address] OFFICE VISIT Date of Service: 04/18/25928 MR#: [id number] Acct: [id number] Name: JESSIKA CARRILLO Rep #: [id number] : 1950 From: [place] MD Age/Sex: 74/F Location: [facility] [place] Status: Signed HPI Subjective Date of Service 04/18/25 Chief Complaint Colon cancer on treatment History of Present Illness 74-year-old female with no family of colon cancer had screening colonoscopy August 17, [address] Boles at [place] with 2 sessile polypoid lesions were found, [...] left kidney. Patient was then referred to [facility] for further management. December 31, 2024 MRI [...] January 23, 2025 robotic right hemicolectomy at [facility] by Dr. [place]. Pathology: Right colon terminal [...] January 23, 2025 robotic right hemicolectomy at [facility]. March 21, 2025 adjuvant modified FOLFOX 6 [...] or paresthe (more content not included)... Normal [facility] Platelet countOrdered By: Ru [place] on 04-18-2025 Platelets (Bld) [#/Vol] 216 10*3/uL 150-450 [facility] Potassium measurement (mass/ volume)Ordered By: [place] on 04-18-2025 Potassium (Unsp spec) [Mass/Vol] 3.9 mmol/L 3.3-5.1 [facility] RBC Auto (Bld) [#/Vol]Ordere d By: [place] on 04-18-2025 RBC (Bld) [#/Vol] 3.93 10*6/uL Low 4.2-5.4 [facility] Serum creatinine measurement (mass/volume)Ordered By: [place] on 04-18-2025 Creatinine [Mass/Vol] 0.78 mg/dL 0.70-1.20 [facility] Serum globulin measurementOr dered By: [place] on 04-18-2025 Globulin (S) [Mass/Vol] 2.8 g/dL 2.2-4.2 [facility] Serum glucose measurement (m ass/volume)Ordered By: [place] on 04-18-2025 Glucose [Mass/Vol] 135 mg/dL High 70-99 [facility] Serum or plasma alanine rojo otransferase (ALT) measurementOrdered By: [place] on 04-18-2025 ALT [Catalytic activity/Vol] 24 U/L <35 [facility] Serum or plasma albumin alfredo urement (mass/volume)Ordered By: [place] on 04-18-2025 Albumin [Mass/Vol] 3.6 g/dL 3.4-4.8 [facility] Serum or plasma albumin/glob ulin mass ratioOrdered By: [place] on 04-18-2025 Albumin/Globulin [Mass ratio] 1.3 {ratio} 0.9-2.4 [facility] Serum or plasma alkaline marisabel sphatase measurementOrdered By: [place] on 04-18-2025 ALP [Catalytic activity/Vol] 85 U/L 35-104 [facility] Serum or plasma calcium alfredo urement (mass/volume)Ordered By: [place] on 04-18-2025 Calcium [Mass/Vol] 9.4 mg/dL 7.6-11.0 [facility] Serum or plasma urea nitroge n measurement (mass/volume)Ordered By: [place] on 04-18-2025 Urea nitrogen [Mass/Vol] 14 mg/dL 4-19 [facility] Sodium levelOrdered By: Kurt mejia Senia on 04-18-2025 Sodium [Moles/Vol] 138 mmol/L 133-145 [facility] Total proteinOrdered By: Shady burroughs Senia on 04-18-2025 Protein [Mass/Vol] 6.4 g/dL 5.9-8.4 [facility] White blood cell (WBC) count Ordered By: [place] on 04-18-2025 WBC (Bld) [#/Vol] 5.3 10*3/uL 4.4-11.0 [facility] Absolute lymphocyte countOrd ered By: [facility] Senia on 04-04-2025 Lymphocytes Auto (Unsp spec) [#/Vol] 1.69 10*3/uL 0.83-4.51 [facility] Absolute neutrophil countOrd ered By: [place] on 04-04-2025 Neutrophils (Bld) [#/Vol] 3.6 10*3/uL 2.0-7.7 [facility] Anion gap in Serum or Plasma Ordered By: Kurtjackie Conn on 04-04-2025 Anion gap [Moles/Vol] 10 mmol/L 5-15 [facility] Automated lymphocyte count a s percentage of total leukocytesOrdered By: Kurtjackie Conn on 04-04-2025 Lymphocytes/100 WBC Auto (Unsp spec) 27.5 % 19-41 [facility] BUN/creatinine ratioOrdered By: Kurtjackie Conn on 04-04-2025 Urea nitrogen/Creatinine [Mass ratio] 20.4 mg/mg High 10-20 [facility] Basophil percentageOrdered B y: Kurtjackie Conn on 04-04-2025 Basophils/100 WBC (Bld) 1.1 % High 0-1 [facility] Bilirubin, totalOrdered By: Kurtjackie Conn on 04-04-2025 Bilirubin [Mass/Vol] 0.21 mg/dL 0.00-1.30 [facility] CBC W/Diff, Automatedon Absolute Lymph 1.69 X10 3/uL Normal 0.83-4.51 [facility] Comment on above: Performed By: #### L 100.0100, L501.5200, L500.4050 ####[facility] [address] [place], [address] Absolute Neut 3.6 X10 3/uL Normal 2.0-7.7 [facility] Comment on above: Performed By: #### L 100.0100, L501.5200, L500.4050 ####[facility] [address] [place], [address] Basophils/100 WBC (Bld) 1.1 % High 0-1 [facility] Comment on above: Performed By: #### L 100.0100, L501.5200, L500.4050 ####[facility] [address] [place], [address] Eosinophils/100 WBC (Bld) 4.6 % Normal 0-5 [facility] Comment on above: Performed By: #### L 100.0100, L501.5200, L500.4050 ####[facility] [address] [place], [address] Erythrocyte distribution width (RBC) [Ratio] 12.7 % Normal 11.6-14.6 [facility] Comment on above: Performed By: #### L 100.0100, L501.5200, L500.4050 ####[facility] [address] [place], [address] Hematocrit (Bld) [Volume fraction] 37.5 % Normal 37-47 [facility] Comment on above: Performed By: #### L 100.0100, L501.5200, L500.4050 ####[facility] [address] [place], [address] Hemoglobin (Bld) [Mass/Vol] 12.2 g/dL Normal 12.0-15.0 [facility] Comment on above: Performed By: #### L 100.0100, L501.5200, L500.4050 ####[facility] [address] [place], [address] IG% 0.500 Normal 0.0-0.9 [facility] Comment on above: Result Comment: IG% - Immature Granulocytes (promyelocytes, myelocytes and metamyelocytes) > 1% indicates that a LEFT SHIFT is Present. Performed By: #### L 100.0100, L501.5200, L500.4050 ####[facility] [address] [place], [address] Lymphocytes/100 WBC (Bld) 27.5 % Normal 19-41 [facility] Comment on above: Performed By: #### L 100.0100, L501.5200, L500.4050 ####[facility] [address] [place], [address] MCH (RBC) [Entitic mass] 30.0 pg Normal 27.0-32.0 [facility] Comment on above: Performed By: #### L 100.0100, L501.5200, L500.4050 ####[facility] [address] [place], [address] MCHC (RBC) [Mass/Vol] 32.5 g/dL Normal 32-36 [facility] Comment on above: Performed By: #### L 100.0100, L501.5200, L500.4050 ####[facility] [address] [place], [address] MCV (RBC) [Entitic vol] 92.4 fL Normal 81-99 [facility] Comment on above: Performed By: #### L 100.0100, L501.5200, L500.4050 ####[facility] [address] [place], [address] Monocytes/100 WBC (Bld) 8.3 % Normal 0-10 [facility] Comment on above: Performed By: #### L 100.0100, L501.5200, L500.4050 ####[facility] [address] [place], [address] Neutrophils/100 WBC (Bld) 58.0 % Normal 47-70 [facility] Comment on above: Performed By: #### L 100.0100, L501.5200, L500.4050 ####[facility] [address] [place], [address] Nucleated RBC (Bld) [#/Vol] 0 10*3/uL Normal 0-5 [facility] Comment on above: Performed By: #### L 100.0100, L501.5200, L500.4050 ####[facility] [address] [place], [address] Platelet mean volume (Bld) [Entitic vol] 8.8 fL Normal 6.2-12.0 [facility] Comment on above: Performed By: #### L 100.0100, L501.5200, L500.4050 ####[facility] [address] [place], [address] Platelets (Bld) [#/Vol] 270 10*3/uL Normal 150-450 [facility] Comment on above: Performed By: #### L 100.0100, L501.5200, L500.4050 ####[facility] [address] [place], [address] RBC (Bld) [#/Vol] 4.06 10*6/uL Low 4.2-5.4 [facility] Comment on above: Performed By: #### L 100.0100, L501.5200, L500.4050 ####[facility] [address] [place], [address] RDW SD 42.2 fl Normal 35.1-43.9 [facility] Comment on above: Performed By: #### L 100.0100, L501.5200, L500.4050 ####[facility] [address] [place], [address] WBC (Bld) [#/Vol] 6.2 10*3/uL Normal 4.4-11.0 [facility] Comment on above: Performed By: #### L 100.0100, L501.5200, L500.4050 ####[facility] [address] [place], [address] Carbon dioxide, total [Moles /volume] in Central venous bloodOrdered By: [place] on 04-04-2025 CO2 [Moles/Vol] 25.8 mmol/L 21.0-32.0 [facility] Chloride assayOrdered By: Ru Conn on 04-04-2025 Chloride [Moles/Vol] 105 mmol/L 98-108 [facility] Comprehensive Metabolic Prof ilon 04-04-2025 Albumin [Mass/Vol] 3.7 g/dL Normal 3.4-4.8 [facility] Comment on above: Performed By: #### L 100.0100, L501.5200, L500.4050 ####[facility] [address] [place], [address] Albumin/Globulin [Mass ratio] 1.3 {ratio} Normal 0.9-2.4 [facility] Comment on above: Performed By: #### L 100.0100, L501.5200, L500.4050 ####[facility] [address] [place], [address] ALK PHOS 77 U/L Normal 35-104 [facility] Comment on above: Performed By: #### L 100.0100, L501.5200, L500.4050 ####[facility] [address] [place], [address] ALT [Catalytic activity/Vol] 26 U/L Normal <=34 [facility] Comment on above: Performed By: #### L 100.0100, L501.5200, L500.4050 ####[facility] [address] [place], [address] AST [Catalytic activity/Vol] 28 U/L Normal <=31 [facility] Comment on above: Performed By: #### L 100.0100, L501.5200, L500.4050 ####[facility] [address] [place], [address] Bilirubin [Mass/Vol] 0.21 mg/dL Normal 0.00-1.30 [facility] Comment on above: Performed By: #### L 100.0100, L501.5200, L500.4050 ####[facility] [address] [place], [address] BUN/CRE 20.4 RATIO High 10-20 [facility] Comment on above: Performed By: #### L 100.0100, L501.5200, L500.4050 ####[facility] [address] [place], [address] Calcium [Mass/Vol] 9.1 mg/dL Normal 7.6-11.0 [facility] Comment on above: Performed By: #### L 100.0100, L501.5200, L500.4050 ####[facility] [address] [place], [address] Chloride [Moles/Vol] 105 mmol/L Normal 98-108 [facility] Comment on above: Performed By: #### L 100.0100, L501.5200, L500.4050 ####[facility] [address] [place], [address] CO2 [Moles/Vol] 25.8 mmol/L Normal 21.0-32.0 [facility] Comment on above: Performed By: #### L 100.0100, L501.5200, L500.4050 ####[facility] [address] [place], [address] Creatinine [Mass/Vol] 0.68 mg/dL Low 0.70-1.20 [facility] Comment on above: Performed By: #### L 100.0100, L501.5200, L500.4050 ####[facility] [address] [place], [address] ECRCL 61.42 ml/min Normal 50-250 [facility] Comment on above: Performed By: #### L 100.0100, L501.5200, L500.4050 ####[facility] [address] [place], [address] GAP 10 Normal 5-15 [facility] Comment on above: Performed By: #### L 100.0100, L501.5200, L500.4050 ####[facility] [address] [place], [address] GFR/1.73 sq M.predicted among non-blacks MDRD (S/P/Bld) [Vol rate/Area] 91 mL/min/{1.73_m2} Normal >60 [facility] Comment on above: Result Comment: mL/m in/1.73m2 CKD-EPI Creatinine Equation (2020) Performed By: #### L 100.0100, L501.5200, L500.4050 ####[facility] [address] [place], [address] Globulin (S) [Mass/Vol] 2.8 g/dL Normal 2.2-4.2 [facility] Comment on above: Performed By: #### L 100.0100, L501.5200, L500.4050 ####[facility] [address] [place], [address] Glucose [Mass/Vol] 124 mg/dL High 70-99 [facility] Comment on above: Performed By: #### L 100.0100, L501.5200, L500.4050 ####[facility] [address] [place], [address] Potassium [Moles/Vol] 4.0 mmol/L Normal 3.3-5.1 [facility] Comment on above: Performed By: #### L 100.0100, L501.5200, L500.4050 ####[facility] [address] [place], [address] Sodium [Moles/Vol] 140 mmol/L Normal 133-145 [facility] Comment on above: Performed By: #### L 100.0100, L501.5200, L500.4050 ####[facility] [address] [place], [address] T PROT 6.6 g/dL Normal 5.9-8.4 [facility] Comment on above: Performed By: #### L 100.0100, L501.5200, L500.4050 ####[facility] [address] [place], [address] Urea nitrogen [Mass/Vol] 14 mg/dL Normal 4-19 [facility] Comment on above: Performed By: #### L 100.0100, L501.5200, L500.4050 ####[facility] [address] [place], [address] Eosinophil percentageOrdered By: [place] on 04-04-2025 Eosinophils/100 WBC (Bld) 4.6 % 0-5 [facility] Erythrocyte distribution wid th ratioOrdered By: [place] on 04-04-2025 Erythrocyte distribution width (RBC) [Ratio] 12.7 % 11.6-14.6 [facility] Erythrocyte distribution wid th standard deviationOrdered By: [facility] on 04-04-2025 Erythrocyte distribution width (RBC) [Ratio] 42.2 fl 35.1-43.9 [facility] Glomerular filtration rate ( GFR) estimation/1.73 sq m using serum, plasma, or whole bOrdered By: [facility] Hospital[facility] Conn on 04-04-2025 GFR/1.73 sq M.predicted among non-blacks MDRD (S/P/Bld) [Vol rate/Area] 91 mL/min/{1.73_m2} >60 [facility] Comment on above: mL/min/1.73m2 CKD-EP I Creatinine Equation (2020) Hematocrit Auto (Bld) [Volum e fraction]Ordered By: [facility] Conn on 04-04-2025 Hematocrit (Bld) [Volume fraction] 37.5 % 37-47 [facility] Hemoglobin measurementOrdere d By: [facility] Senia on 04-04-2025 Hemoglobin (Bld) [Mass/Vol] 12.2 g/dL 12.0-15.0 [facility] Immature granulocytes/100 WB C Auto (Bld)Ordered By: [facility] Conn on 04-04-2025 Immature granulocytes/100 WBC (Bld) 0.500 % 0.0-0.9 [facility] Comment on above: IG% - Immature Granu locytes (promyelocytes, myelocytes and metamyelocytes) > 1% indicates that a LEFT SHIFT is Present. Laboratory - Chemistry and C hemistry - challengeOrdered By: [facility] Conn on 04-04-2025 AST [Catalytic activity/Vol] 28 U/L <32 [facility] MCV (mean corpuscular volume ) determinationOrdered By: [facility] on 04-04-2025 MCV (RBC) [Entitic vol] 92.4 fL 81-99 [facility] Magnesiumon 04-04-2025 Magnesium [Mass/Vol] 2.1 mg/dL Normal 1.5-2.2 [facility] Comment on above: Performed By: #### L 100.0100, L501.5200, L500.4050 ####[facility] [address] [place], [address] Magnesium measurement (mass/ volume)Ordered By: [place] on 04-04-2025 Magnesium (Unsp spec) [Mass/Vol] 2.1 mg/dL 1.5-2.2 [facility] Mean corpuscular hemoglobin (MCH) determinationOrdered By: [facility] Conn on 04-04-2025 MCH (RBC) [Entitic mass] 30.0 pg 27.0-32.0 [facility] Mean corpuscular hemoglobin concentration (MCHC) determinationOrdered By: [facility] Conn on 04-04-2025 MCHC (RBC) [Mass/Vol] 32.5 g/dL 32-36 [facility] Mean platelet volume determi nationOrdered By: [facility] Conn on 04-04-2025 Platelet mean volume (Bld) [Entitic vol] 8.8 fL 6.2-12.0 [facility] Monocyte percentageOrdered B y: [facility] Senia on 04-04-2025 Monocytes/100 WBC (Bld) 8.3 % 0-10 [facility] Neutrophil percentageOrdered By: [facility] Senia on 04-04-2025 Neutrophils/100 WBC (Bld) 58.0 % 47-70 [facility] Nucleated red blood cell per centageOrdered By: [facility] Senia on 04-04-2025 Nucleated RBC/100 WBC (Bld) [Ratio] 0 % 0-5 [facility] Oncology Visit Reporton Oncology Visit Report [facility] [place] [facility] [address] [place] [address] OFFICE VISIT Date of Service: 04/04/25 0814 MR#: [id number] Acct: [id number] Name: FITOJESSIKA Shannon Perry Rep #: [id number] : 1950 From: Alyssa Lynch NP [employer]ID[employer]INTAINER -C Age/Sex: 74/F Location: [facility] [place] Status: Signed HPI Subjective Date of Service 04/04/25 Chief Complaint Colon cancer on treatment History of Present Illness 74-year-old female with no family of colon cancer had screening colonoscopy August 17, [address] Boles at [place] with 2 sessile polypoid lesions were found, [...] left kidney. Patient was then referred to [facility] for further management. December 31, 2024 MRI [...] January 23, 2025 robotic right hemicolectomy at [facility] by Dr. Antonio. Pathology: Right colon terminal [...] January 23, 2025 robotic right hemicolectomy at [facility]. March 21, 2025- mFOLFOX Interval History The [...] as 2 L of fluid each day. [facility] Medical History (Updated 04/04/25 @ 09:22 by Alyssa Lynch BRIDGE MAINTAINER, [employer]ID[employer]INTAINER-C) Diarrhea due to drug Encounter for chemotherapy [...] History lidocaine-prilocain (more content not included)... Normal [facility] Platelet countOrdered By: Ru Conn on 04-04-2025 Platelets (Bld) [#/Vol] 270 10*3/uL 150-450 [facility] Potassium measurement (mass/ volume)Ordered By: [place] on 04-04-2025 Potassium (Unsp spec) [Mass/Vol] 4.0 mmol/L 3.3-5.1 [facility] RBC Auto (Bld) [#/Vol]Ordere d By: [place] on 04-04-2025 RBC (Bld) [#/Vol] 4.06 10*6/uL Low 4.2-5.4 [facility] Serum creatinine measurement (mass/volume)Ordered By: [place] on 04-04-2025 Creatinine [Mass/Vol] 0.68 mg/dL Low 0.70-1.20 [facility] Serum globulin measurementOr dered By: [place] on 04-04-2025 Globulin (S) [Mass/Vol] 2.8 g/dL 2.2-4.2 [facility] Serum glucose measurement (m ass/volume)Ordered By: [place] on 04-04-2025 Glucose [Mass/Vol] 124 mg/dL High 70-99 [facility] Serum or plasma alanine rojo otransferase (ALT) measurementOrdered By: [place] on 04-04-2025 ALT [Catalytic activity/Vol] 26 U/L <35 [facility] Serum or plasma albumin alfredo urement (mass/volume)Ordered By: [place] on 04-04-2025 Albumin [Mass/Vol] 3.7 g/dL 3.4-4.8 [facility] Serum or plasma albumin/glob ulin mass ratioOrdered By: [place] on 04-04-2025 Albumin/Globulin [Mass ratio] 1.3 {ratio} 0.9-2.4 [facility] Serum or plasma alkaline marisabel sphatase measurementOrdered By: [place] on 04-04-2025 ALP [Catalytic activity/Vol] 77 U/L 35-104 [facility] Serum or plasma calcium alfredo urement (mass/volume)Ordered By: [place] on 04-04-2025 Calcium [Mass/Vol] 9.1 mg/dL 7.6-11.0 [facility] Serum or plasma urea nitroge n measurement (mass/volume)Ordered By: [place] on 04-04-2025 Urea nitrogen [Mass/Vol] 14 mg/dL 4-19 [facility] Sodium levelOrdered By: Kurt mejia [place] on 04-04-2025 Sodium [Moles/Vol] 140 mmol/L 133-145 [facility] Total proteinOrdered By: Shady burroughs [place] on 04-04-2025 Protein [Mass/Vol] 6.6 g/dL 5.9-8.4 [facility] White blood cell (WBC) count Ordered By: New [place] on 04-04-2025 WBC (Bld) [#/Vol] 6.2 10*3/uL 4.4-11.0 [facility] Carcinoembryonic Antigenon 0 03-22-2025 CEA 5.5 ng/mL High 0.0-4.7 [facility] Comment on above: Order Comment: ADD O N FROM EARLIER TODAY, THANKS Result Comment: Nons mokers <3.9 Smokers <5.6 [facility] Electrochemiluminescence Immunoassay (ECLIA) Values obtained with different assay methods or kits cannot be used interchangeably. Results cannot be interpreted as absolute evidence of the presence or absence of malignant disease. Performed at: [employer] [address] [id number] [employer]: Abimael Sheridan PhD, Phone: [phone] Performed By: #### L 3145.2199 #### [facility] [address] [place], [address] Absolute lymphocyte countOrd ered By: Kurtjackie Conn on 03-21-2025 Lymphocytes Auto (Unsp spec) [#/Vol] 2.00 10*3/uL 0.83-4.51 [facility] Absolute neutrophil countOrd ered By: Kurtjackie Conn on 03-21-2025 Neutrophils (Bld) [#/Vol] 4.1 10*3/uL 2.0-7.7 [facility] Anion gap in Serum or Plasma Ordered By: [place] on 03-21-2025 Anion gap [Moles/Vol] 10 mmol/L 5-15 [facility] Automated lymphocyte count a s percentage of total leukocytesOrdered By: [place] on 03-21-2025 Lymphocytes/100 WBC Auto (Unsp spec) 28.7 % - [facility] BUN/creatinine ratioOrdered By: [place] on 03-21-2025 Urea nitrogen/Creatinine [Mass ratio] 24.4 mg/mg High - [facility] Basophil percentageOrdered B y: [place] on 03-21-2025 Basophils/100 WBC (Bld) 0.7 % 0- [facility] Bilirubin, totalOrdered By: [place] on 03-21-2025 Bilirubin [Mass/Vol] 0.23 mg/dL 0.00-1.30 [facility] CBC W/Diff, Automatedon 03-03 Absolute Lymph 2.00 X10 3/uL Normal 0.83-4.51 [facility] Comment on above: Performed By: #### L 100.0100, L500.4050, L501.5200 ####[facility] [address] [place], [address] Absolute Neut 4.1 X10 3/uL Normal 2.0-7.7 [facility] Comment on above: Performed By: #### L 100.0100, L500.4050, L501.5200 ####[facility] [address] [place], [address] Basophils/100 WBC (Bld) 0.7 % Normal 0-1 [facility] Comment on above: Performed By: #### L 100.0100, L500.4050, L501.5200 ####[facility] [address] [place], [address] Eosinophils/100 WBC (Bld) 3.4 % Normal 0-5 [facility] Comment on above: Performed By: #### L 100.0100, L500.4050, L501.5200 ####[facility] [address] [place], [address] Erythrocyte distribution width (RBC) [Ratio] 12.6 % Normal 11.6-14.6 [facility] Comment on above: Performed By: #### L 100.0100, L500.4050, L501.5200 ####[facility] [address] [place], [address] Hematocrit (Bld) [Volume fraction] 37.7 % Normal 37-47 [facility] Comment on above: Performed By: #### L 100.0100, L500.4050, L501.5200 ####[facility] [address] [place], [address] Hemoglobin (Bld) [Mass/Vol] 12.2 g/dL Normal 12.0-15.0 [facility] Comment on above: Performed By: #### L 100.0100, L500.4050, L501.5200 ####[facility] [address] [place], [address] IG% 0.400 Normal 0.0-0.9 [facility] Comment on above: Result Comment: IG% - Immature Granulocytes (promyelocytes, myelocytes and metamyelocytes) > 1% indicates that a LEFT SHIFT is Present. Performed By: #### L 100.0100, L500.4050, L501.5200 ####[facility] [address] [place], [address] Lymphocytes/100 WBC (Bld) 28.7 % Normal 19-41 [facility] Comment on above: Performed By: #### L 100.0100, L500.4050, L501.5200 ####[facility] [address] [place], [address] MCH (RBC) [Entitic mass] 29.9 pg Normal 27.0-32.0 [facility] Comment on above: Performed By: #### L 100.0100, L500.4050, L501.5200 ####[facility] [address] [place], [address] MCHC (RBC) [Mass/Vol] 32.4 g/dL Normal 32-36 [facility] Comment on above: Performed By: #### L 100.0100, L500.4050, L501.5200 ####[facility] [address] [place], [address] MCV (RBC) [Entitic vol] 92.4 fL Normal 81-99 [facility] Comment on above: Performed By: #### L 100.0100, L500.4050, L501.5200 ####[facility] [address] [place], [address] Monocytes/100 WBC (Bld) 7.9 % Normal 0-10 [facility] Comment on above: Performed By: #### L 100.0100, L500.4050, L501.5200 ####[facility] [address] [place], [address] Neutrophils/100 WBC (Bld) 58.9 % Normal 47-70 [facility] Comment on above: Performed By: #### L 100.0100, L500.4050, L501.5200 ####[facility] [address] [place], [address] Nucleated RBC (Bld) [#/Vol] 0 10*3/uL Normal 0-5 [facility] Comment on above: Performed By: #### L 100.0100, L500.4050, L501.5200 ####[facility] [address] [place], [address] Platelet mean volume (Bld) [Entitic vol] 9.4 fL Normal 6.2-12.0 [facility] Comment on above: Performed By: #### L 100.0100, L500.4050, L501.5200 ####[facility] [address] [place], [address] Platelets (Bld) [#/Vol] 326 10*3/uL Normal 150-450 [facility] Comment on above: Performed By: #### L 100.0100, L500.4050, L501.5200 ####[facility] [address] [place], [address] RBC (Bld) [#/Vol] 4.08 10*6/uL Low 4.2-5.4 [facility] Comment on above: Performed By: #### L 100.0100, L500.4050, L501.5200 ####[facility] [address] [place], [address] RDW SD 42.9 fl Normal 35.1-43.9 [facility] Comment on above: Performed By: #### L 100.0100, L500.4050, L501.5200 ####[facility] [address] [place], [address] WBC (Bld) [#/Vol] 7.0 10*3/uL Normal 4.4-11.0 [facility] Comment on above: Performed By: #### L 100.0100, L500.4050, L501.5200 ####[facility] [address] [place], [address] Carbon dioxide, total [Moles /volume] in Central venous bloodOrdered By: [place] on 03-21-2025 CO2 [Moles/Vol] 24.6 mmol/L 21.0-32.0 [facility] Chloride assayOrdered By: Ru Conn on 03-21-2025 Chloride [Moles/Vol] 105 mmol/L 98-108 [facility] Comprehensive Metabolic Prof ilon 03-21-2025 Albumin [Mass/Vol] 3.7 g/dL Normal 3.4-4.8 [facility] Comment on above: Performed By: #### L 100.0100, L500.4050, L501.5200 ####[facility] [address] [place], [address] Albumin/Globulin [Mass ratio] 1.2 {ratio} Normal 0.9-2.4 [facility] Comment on above: Performed By: #### L 100.0100, L500.4050, L501.5200 ####[facility] [address] [place], [address] ALK PHOS 63 U/L Normal 35-104 [facility] Comment on above: Performed By: #### L 100.0100, L500.4050, L501.5200 ####[facility] [address] [place], [address] ALT [Catalytic activity/Vol] 18 U/L Normal <=34 [facility] Comment on above: Performed By: #### L 100.0100, L500.4050, L501.5200 ####[facility] [address] [place], [address] AST [Catalytic activity/Vol] 24 U/L Normal <=31 [facility] Comment on above: Performed By: #### L 100.0100, L500.4050, L501.5200 ####[facility] [address] [place], [address] Bilirubin [Mass/Vol] 0.23 mg/dL Normal 0.00-1.30 [facility] Comment on above: Performed By: #### L 100.0100, L500.4050, L501.5200 ####[facility] [address] [place], [address] BUN/CRE 24.4 RATIO High 10-20 [facility] Comment on above: Performed By: #### L 100.0100, L500.4050, L501.5200 ####[facility] [address] [place], [address] Calcium [Mass/Vol] 9.0 mg/dL Normal 7.6-11.0 [facility] Comment on above: Performed By: #### L 100.0100, L500.4050, L501.5200 ####[facility] [address] [place], [address] Chloride [Moles/Vol] 105 mmol/L Normal 98-108 [facility] Comment on above: Performed By: #### L 100.0100, L500.4050, L501.5200 ####[facility] [address] [place], [address] CO2 [Moles/Vol] 24.6 mmol/L Normal 21.0-32.0 [facility] Comment on above: Performed By: #### L 100.0100, L500.4050, L501.5200 ####[facility] [address] [place], [address] Creatinine [Mass/Vol] 0.77 mg/dL Normal 0.70-1.20 [facility] Comment on above: Performed By: #### L 100.0100, L500.4050, L501.5200 ####[facility] [address] [place], [address] ECRCL 61.90 ml/min Normal 50-250 [facility] Comment on above: Performed By: #### L 100.0100, L500.4050, L501.5200 ####[facility] [address] [place], [address] GAP 10 Normal 5-15 [facility] Comment on above: Performed By: #### L 100.0100, L500.4050, L501.5200 ####[facility] [address] [place], [address] GFR/1.73 sq M.predicted among non-blacks MDRD (S/P/Bld) [Vol rate/Area] 81 mL/min/{1.73_m2} Normal >60 [facility] Comment on above: Result Comment: mL/m in/1.73m2 CKD-EPI Creatinine Equation (2020) Performed By: #### L 100.0100, L500.4050, L501.5200 ####[facility] [address] [place], [address] Globulin (S) [Mass/Vol] 3.0 g/dL Normal 2.2-4.2 [facility] Comment on above: Performed By: #### L 100.0100, L500.4050, L501.5200 ####[facility] [address] [place], [address] Glucose [Mass/Vol] 124 mg/dL High 70-99 [facility] Comment on above: Performed By: #### L 100.0100, L500.4050, L501.5200 ####[facility] [address] [place], [address] Potassium [Moles/Vol] 3.8 mmol/L Normal 3.3-5.1 [facility] Comment on above: Performed By: #### L 100.0100, L500.4050, L501.5200 ####[facility] [address] [place], [address] Sodium [Moles/Vol] 139 mmol/L Normal 133-145 [facility] Comment on above: Performed By: #### L 100.0100, L500.4050, L501.5200 ####[facility] [address] [place], [address] T PROT 6.6 g/dL Normal 5.9-8.4 [facility] Comment on above: Performed By: #### L 100.0100, L500.4050, L501.5200 ####[facility] [address] [place], [address] Urea nitrogen [Mass/Vol] 19 mg/dL Normal 4-19 [facility] Comment on above: Performed By: #### L 100.0100, L500.4050, L501.5200 ####[facility] [address] [place], [address] Eosinophil percentageOrdered By: [place] on 03-21-2025 Eosinophils/100 WBC (Bld) 3.4 % 0-5 [facility] Erythrocyte distribution wid th ratioOrdered By: [facility] on 03-21-2025 Erythrocyte distribution width (RBC) [Ratio] 12.6 % 11.6-14.6 [facility] Erythrocyte distribution wid th standard deviationOrdered By: [place] on 03-21-2025 Erythrocyte distribution width (RBC) [Ratio] 42.9 fl 35.1-43.9 [facility] Glomerular filtration rate ( GFR) estimation/1.73 sq m using serum, plasma, or whole bOrdered By: [place] on 03-21-2025 GFR/1.73 sq M.predicted among non-blacks MDRD (S/P/Bld) [Vol rate/Area] 81 mL/min/{1.73_m2} >60 [facility] Comment on above: mL/min/1.73m2 CKD-EP I Creatinine Equation (2020) Hematocrit Auto (Bld) [Volum e fraction]Ordered By: [facility] on 03-21-2025 Hematocrit (Bld) [Volume fraction] 37.7 % 37-47 [facility] Hemoglobin measurementOrdere d By: [place] on 03-21-2025 Hemoglobin (Bld) [Mass/Vol] 12.2 g/dL 12.0-15.0 [facility] Immature granulocytes/100 WB C Auto (Bld)Ordered By: [place] on 03-21-2025 Immature granulocytes/100 WBC (Bld) 0.400 % 0.0-0.9 [facility] Comment on above: IG% - Immature Granu locytes (promyelocytes, myelocytes and metamyelocytes) > 1% indicates that a LEFT SHIFT is Present. Laboratory - Chemistry and C hemistry - challengeOrdered By: [place] on 03-21-2025 AST [Catalytic activity/Vol] 24 U/L <32 [facility] MCV (mean corpuscular volume ) determinationOrdered By: [place] on 03-21-2025 MCV (RBC) [Entitic vol] 92.4 fL 81-99 [facility] Magnesiumon 03-21-2025 Magnesium [Mass/Vol] 2.1 mg/dL Normal 1.5-2.2 [facility] Comment on above: Performed By: #### L 100.0100, L500.4050, L501.5200 ####[facility] [address] [place], [place], [id number] Magnesium measurement (mass/ volume)Ordered By: [place] on 03-21-2025 Magnesium (Unsp spec) [Mass/Vol] 2.1 mg/dL 1.5-2.2 [facility] Mean corpuscular hemoglobin (MCH) determinationOrdered By: [place] on 03-21-2025 MCH (RBC) [Entitic mass] 29.9 pg 27.0-32.0 [facility] Mean corpuscular hemoglobin concentration (MCHC) determinationOrdered By: [place] on 03-21-2025 MCHC (RBC) [Mass/Vol] 32.4 g/dL 32-36 [facility] Mean platelet volume determi nationOrdered By: [place] on 03-21-2025 Platelet mean volume (Bld) [Entitic vol] 9.4 fL 6.2-12.0 [facility] Monocyte percentageOrdered B y: [place] on 03-21-2025 Monocytes/100 WBC (Bld) 7.9 % 0-10 [facility] Neutrophil percentageOrdered By: [facility] on 03-21-2025 Neutrophils/100 WBC (Bld) 58.9 % 47-70 [facility] Nucleated red blood cell per centageOrdered By: [facility] on 03-21-2025 Nucleated RBC/100 WBC (Bld) [Ratio] 0 % 0-5 [facility] Oncology Visit Reporton 03-03 Oncology Visit Report [facility] [address] [place] [address] OFFICE VISIT Date of Service: 03/21/25 0800 MR#: [id number] Acct: [id number] Name: JESSIKA CARRILLO Rep #: [id number] : 1950 From: Alyssa Lynch NP BRIDGE MAINTAINER -C Age/Sex: 74/F Location: [facility] [place] Status: Signed HPI Subjective Date of Service 03/21/25 Chief Complaint Colon cancer History of Present Illness 74-year-old female with no family of colon cancer had screening colonoscopy August 17, [address] Boles at [place] with 2 sessile polypoid lesions were found, [...] left kidney. Patient was then referred to [facility] for further management. December 31, 2024 MRI [...] January 23, 2025 robotic right hemicolectomy at [facility] by Dr. Antonio. Pathology: Right colon terminal [...] January 23, 2025 robotic right hemicolectomy at [facility]. March 21, 2025- mFOLFOX Interval History The patient is presenting to clinic accompanied by adult daughter, Don for an evaluation anticipating she will begin adjuvant mFOLFOX. No diarrhea. LBM 03/21/25. Reports active lifestyle and good support system by way of daughters. [facility] Medical History (Updated 03/21/25 @ 08:45 by Alyssa Lynch BRIDGE MAINTAINER, BRIDGE MAINTAINER-C) Encounter for chemotherapy management Loss of hearing [...] Rx tablet (more content not included)... Normal [facility] Platelet countOrdered By: Ru Conn on 03-21-2025 Platelets (Bld) [#/Vol] 326 10*3/uL 150-450 [facility] Potassium measurement (mass/ volume)Ordered By: [place] on 03-21-2025 Potassium (Unsp spec) [Mass/Vol] 3.8 mmol/L 3.3-5.1 [facility] RBC Auto (Bld) [#/Vol]Ordere d By: [place] on 03-21-2025 RBC (Bld) [#/Vol] 4.08 10*6/uL Low 4.2-5.4 [facility] Serum creatinine measurement (mass/volume)Ordered By: [place] on 03-21-2025 Creatinine [Mass/Vol] 0.77 mg/dL 0.70-1.20 [facility] Serum globulin measurementOr dered By: [place] on 03-21-2025 Globulin (S) [Mass/Vol] 3.0 g/dL 2.2-4.2 [facility] Serum glucose measurement (m ass/volume)Ordered By: [place] on 03-21-2025 Glucose [Mass/Vol] 124 mg/dL High 70-99 [facility] Serum or plasma alanine rojo otransferase (ALT) measurementOrdered By: [place] on 03-21-2025 ALT [Catalytic activity/Vol] 18 U/L <35 [facility] Serum or plasma albumin alfredo urement (mass/volume)Ordered By: [place] on 03-21-2025 Albumin [Mass/Vol] 3.7 g/dL 3.4-4.8 [facility] Serum or plasma albumin/glob ulin mass ratioOrdered By: [place] on 03-21-2025 Albumin/Globulin [Mass ratio] 1.2 {ratio} 0.9-2.4 [facility] Serum or plasma alkaline marisabel sphatase measurementOrdered By: [place] on 03-21-2025 ALP [Catalytic activity/Vol] 63 U/L 35-104 [facility] Serum or plasma calcium alfredo urement (mass/volume)Ordered By: [place] on 03-21-2025 Calcium [Mass/Vol] 9.0 mg/dL 7.6-11.0 [facility] Serum or plasma carcinoembry onic antigen measurement (mass/volume)Ordered By: Alyssa Lynch on 03-21-2025 Carcinoembryonic Ag [Mass/Vol] 5.5 ng/mL High 0.0-4.7 [facility] Comment on above: Nonsmokers <3.9 Smok ers <5.6[facility] [employer] Electrochemiluminescence Immunoassay(ECLIA)Values obtained with different assay methods or kitscannot be used interchangeably. Results cannot beinterpreted as absolute evidence of the presence orabsence of malignant disease.Performed at: [address] [id number] Director: Abimael Sheridan PhD, Phone: [phone] Serum or plasma urea nitroge n measurement (mass/volume)Ordered By: [place] on 03-21-2025 Urea nitrogen [Mass/Vol] 19 mg/dL 4-19 [facility] Sodium levelOrdered By: Kurt Conn on 03-21-2025 Sodium [Moles/Vol] 139 mmol/L 133-145 [facility] Total proteinOrdered By: Shady Conn on 03-21-2025 Protein [Mass/Vol] 6.6 g/dL 5.9-8.4 [facility] White blood cell (WBC) count Ordered By: [place] on 03-21-2025 WBC (Bld) [#/Vol] 7.0 10*3/uL 4.4-11.0 [facility] CXR for Line Placementon CXR for Line Placement [facility] Imaging Services [address] [place] [address] CXR for Line Placement MR#: [id number] Acct: [id number] Name: JESSIKA CARRILLO Rep #: [id number] : 1950 F 74 From: Russell Greco MD PCP: JUVENTINO Pérez Status: [place] [facility] Study: CXR for Line Placement Date of Exam: 03/20/25 Exam# [id number] Ordering Dr: Michael Gaines MD PROCEDURE: CXR [...] No infiltrates. 3. No pneumothorax. [facility] CC: Dr. Michael Gaines MD; JUVENTINO Pérez Oil Pipeline Dispatcher: Signed Normal [facility] Discharge Instructionon 03-02 Discharge Instruction [facility] Medical Records Department [address] [place] [address] Instructions for Home/Discharge Instructions 03/20/25 1316 MR#: [id number] Acct: [id number] Name: JESSIKA CARRILLO Rep #: [id number] : 1950 74 From: Michael Gaines MD PCP: JUVENTINO Pérez Status:[facility] Discharge Instructions Diet Discharge Diet: Light diet [...] Care Provider: Shu Chow Instructions Print Language: Italian Discharge Orders/Prescriptions Prescriptions: New oxycodone-acetaminophen [Percocet] 5-325 [...] Care 03/20/25 1320 Michael Gaines MD CC: JVUENTINO Pérez Signed Normal [facility] MR/POSTOP.[facility] 03-20-2025 MR/POSTOP.[facility] Medical Records Department [address] [place] [address] Anesthesia Postop Eval I 03/20/25 1317 MR#: [id number] Acct: [id number] Name: JESSIKA CARRILLO Rep #: [id number] : 1950 74 From: Ora Perez CRNA PCP: JUVENTINO Pérez Status:REG SDC Y Race: C Location: [place] [address] Anesthesia: Postop Eval I Current Vital Signs [...] completed: Yes 03/20/25 1318 Date Ora Perez CHIEF CONTROLLER Cosigner Signature: Date CC: Signed Normal [facility] MR/[id number] 03-20-2025 [facility] Medical Records Department [address] [place] [address] Anesthesia Postop Eval II 03/20/25 1424 MR#: [id number] Acct: [id number] Name: JESSIKA CARRILLO Rep #: [id number] : 1950 74 From: Josue Ceballos MD PCP: JUVENTINO Pérez Status:[facility] Y Race: C Location: [place] [address] Anesthesia Postop Eval I Sum Postop Eval Completion status Anesthesia document: Postop Eval 1 completed: Yes Anesthesia Postop Eval I Summary Anesthesia Postop Eval I Summary: Anesthesia Postop Eval I: Assessment Summary Airway patent Yes 03/20/25 13:18 CHIEF CONTROLLER.HBARR Spontaneous unlabored Yes 03/20/25 13:18 CHIEF CONTROLLER.HBARR respirations Mental status Awake 03/20/25 13:18 CHIEF CONTROLLER.HBARR nausea No 03/20/25 13:18 CHIEF CONTROLLER.HBARR Vomiting No 03/20/25 13:18 CHIEF CONTROLLER.HBARR Anesthesia Postop Eval I: Fluid Summary Crystalloid volume administer 500 03/20/25 13:18 CHIEF CONTROLLER.HBARR (ml) Colloids volume administered ( ml) Blood Product volume administered (ml) Total IV fluid infused 500 03/20/25 13:18 CHIEF CONTROLLER.HBARR Anesthesia Postop Eval I: Summary Notes Anesthesia Complication No 03/20/25 13:18 CHIEF CONTROLLER.HBARR Anesthesia Complication Comment: Post-operative progress note Anesthesia: Postop Eval II Evaluation Mental status: Awake Pain Level: 0 nausea: No Vomiting: No 03/20/25 1424 Date Josue Smyth Signature: Date CC: Signed Normal [facility] Operative Reporton 5 Operative Report [facility] Medical Records Department [address] [place] [address] Operative Report 03/20/25 1321 MR#: [id number] Acct: [id number] Name: JESSIKA CARRILLO Rep #: [id number] : 1950 74 From: Michael Gaines MD PCP: JUVENTINO Pérez Status:[facility] Location: [place] [address] Problems Associated Problem List Diagnoses (1) Colon cancer: Procedures Cardiovascular CF Procedures 33xxx-39xxx: 23208 Insert tunneled cv cath Operative Report (Standard) Operative Information Date of Procedure: 03/20/25 Pre-Operative Diagnosis: Colon cancer Post-Operative Diagnosis: Colon cancer Surgery/Procedure Performed: Left subclavian Mediport placement with C arm post graduate internship: No Type of Anesthesia: Local and MAC [...] Michael Gaines MD; JUVENTINO Pérez Signed Normal [facility] CBC (INCLUDES DIFF/PLT)on Basophils (Bld) [#/Vol] 0.055 10*3/uL Normal 0-200 [facility] Comment on above: Performed By: #### 7 600, 899, 92258, 6399, 97229 #### [facility] [address], [address] [place] [address] Jeeper Operator: Esteban Shen MD Basophils/100 WBC (Bld) 0.5 % Normal [facility] Comment on above: Performed By: #### 7 600, 899, 13107, 6399, 04596 #### [facility] [address], [address] [place] [address] Jeeper Operator: Esteban Shen MD Eosinophils (Bld) [#/Vol] 0.154 10*3/uL Normal 15-500 [facility] Comment on above: Performed By: #### 7 600, 899, 47696, 6399, 11022 #### [facility] [address], [address] [place] [address] Jeeper Operator: Esteban Shen MD Eosinophils/100 WBC (Bld) 1.4 % Normal [facility] Comment on above: Performed By: #### 7 600, 899, 44144, 6399, 26533 #### [facility] of [address], [address] [place] [address] Jeeper Operator: Esteban Shen MD Erythrocyte distribution width (RBC) [Ratio] 14.0 % Normal 11.0-15.0 [facility] Comment on above: Performed By: #### 7 600, 899, 94958, 6399, 82738 #### [facility] of [address], [address] [place] [address] Jeeper Operator: Esteban Shen MD Hematocrit (Bld) [Volume fraction] 42.3 % Normal 35.0-45.0 [facility] Comment on above: Performed By: #### 7 600, 899, 88232, 6399, 22444 #### [facility] of [address], [address] [place] [address] Jeeper Operator: Esteban Shen MD Hemoglobin (Bld) [Mass/Vol] 13.0 g/dL Normal 11.7-15.5 [facility] Comment on above: Performed By: #### 7 600, 899, 48369, 6399, 90161 #### [facility] of [place] [address] Jeeper Operator: Esteban Shen MD Lymphocytes (Bld) [#/Vol] 1.606 10*3/uL Normal 850-3900 [facility] Comment on above: Performed By: #### 7 600, 899, 27106, 6399, 14700 #### [facility] of [place] [address] Jeeper Operator: Esteban Shen MD Lymphocytes/100 WBC (Bld) 14.6 % Normal [facility] Comment on above: Performed By: #### 7 600, 899, 94200, 6399, 68772 #### [facility] of [address], [address] [place] [address] Jeeper Operator: Esteban Shen MD MCH (RBC) [Entitic mass] 29.7 pg Normal 27.0-33.0 [facility] Comment on above: Performed By: #### 7 600, 899, 43715, 6399, 04800 #### [facility] [place] [address] Jeeper Operator: Esteban Shen MD MCHC (RBC) [Mass/Vol] [...] condition. Performed By: #### 7 600, 899, 68750, 6399, 60515 #### [facility] [place] [address] Jeeper Operator: Esteban Shen MD MCV (RBC) [Entitic vol] 96.6 fL Normal 80.0-100.0 [facility] Comment on above: Performed By: #### 7 600, 899, 61054, 6399, 04115 #### [facility] [place] [address] Jeeper Operator: Esteban Shen MD Monocytes (Bld) [#/Vol] 0.539 10*3/uL Normal 200-950 [facility] Comment on above: Performed By: #### 7 600, 899, 62183, 6399, 20829 #### [facility] [place] [address] Jeeper Operator: Esteban Shen MD Monocytes/100 WBC (Bld) 4.9 % Normal [facility] Comment on above: Performed By: #### 7 600, 899, 42605, 6399, 87032 #### [facility] [place] [address] Jeeper Operator: Esteban Shen MD Neutrophils (Bld) [#/Vol] 8.646 10*3/uL High 4321-0672 [facility] Comment on above: Performed By: #### 7 600, 899, 38311, 6399, 57713 #### [facility] of [place] [address] Jeeper Operator: Esteban Shen MD Neutrophils/100 WBC (Bld) 78.6 % Normal [facility] Comment on above: Performed By: #### 7 600, 899, 61527, 6399, 24255 #### [facility] of [place] [address] Jeeper Operator: Esteban Shen MD Platelet mean volume (Bld) [Entitic vol] 10.4 fL Normal 7.5-12.5 [facility] Comment on above: Performed By: #### 7 600, 899, 05536, 6399, 51738 #### [facility] of [place] [address] Jeeper Operator: Esteban Shen MD Platelets (Bld) [#/Vol] 357 10*3/uL Normal 140-400 [facility] Comment on above: Performed By: #### 7 600, 899, 25633, 6399, 34989 #### [facility] of [place] [address] Jeeper Operator: Esteban Shen MD RBC (Bld) [#/Vol] 4.38 10*6/uL Normal 3.80-5.10 [facility] Comment on above: Performed By: #### 7 600, 899, 34683, 6399, 65855 #### [facility] of [place] [address] Jeeper Operator: Esteban Shen MD WBC (Bld) [#/Vol] 11.0 10*3/uL High 3.8-10.8 [facility] Comment on above: Performed By: #### 7 600, 899, 41346, 6399, 70275 #### [facility] of [address] [place] [address] Jeeper Operator: Esteban Shen MD [facility] 03-18-2025 Albumin [Mass/Vol] 4.0 g/dL Normal 3.6-5.1 [facility] Comment on above: Performed By: #### 7 600, 899, 64476, 6399, 38255 #### [facility] of [place] [address] Jeeper Operator: Esteban Shen MD Albumin/Globulin [Mass ratio] 1.5 {ratio} Normal 1.0-2.5 [facility] Comment on above: Performed By: #### 7 600, 899, 39663, 6399, 09203 #### [facility] of [place] [address] Jeeper Operator: Esteban Shen MD ALP [Catalytic activity/Vol] 55 U/L Normal 37-153 [facility] Comment on above: Performed By: #### 7 600, 899, 93423, 6399, 17486 #### [facility] of [place] [address] Jeeper Operator: Esteban Shen MD ALT [Catalytic activity/Vol] 19 U/L Normal 6-29 [facility] Comment on above: Performed By: #### 7 600, 899, 74332, 6399, 56755 #### [facility] of [place] [address] Jeeper Operator: Esteban Shen MD AST [Catalytic activity/Vol] 18 U/L Normal 10-35 [facility] Comment on above: Performed By: #### 7 600, 899, 09014, 6399, 76463 #### [facility] of [place] [address] Jeeper Operator: Esteban Shen MD Bilirubin [Mass/Vol] 0.4 mg/dL Normal 0.2-1.2 [facility] Comment on above: Performed By: #### 7 600, 899, 41748, 6399, 91465 #### [facility] of [address], [address] [place] [address] Jeeper Operator: Esteban Shen MD BUN/CREATININE RATIO SEE NOTE: Normal 6-22 [facility] Comment on above: Result Comment: Not Reported: BUN and Creatinine are within reference range. Performed By: #### 7 600, 899, 40161, 6399, 44470 #### [facility] of [address], [address] [place] [address] Jeeper Operator: Esteban Shen MD Calcium [Mass/Vol] 9.3 mg/dL Normal 8.6-10.4 [facility] Comment on above: Performed By: #### 7 600, 899, 37711, 6399, 10306 #### [facility] of [place] [address] Jeeper Operator: Esteban Shen MD Chloride [Moles/Vol] 105 mmol/L Normal 98-110 [facility] Comment on above: Performed By: #### 7 600, 899, 86385, 6399, 64564 #### [facility] [place] [address] Jeeper Operator: Esteban Shen MD CO2 [Moles/Vol] 25 mmol/L Normal 20-32 [facility] Comment on above: Performed By: #### 7 600, 899, 79118, 6399, 83584 #### [facility] of [place] [address] Jeeper Operator: Esteban Shen MD Creatinine [Mass/Vol] 0.66 mg/dL Normal 0.60-1.[address] [facility] [address] [facility] Comment on above: Performed By: #### 7 600, 899, 16461, 6399, 71236 #### [facility] of [place] [address] Jeeper Operator: Esteban Shen MD GFR/1.73 sq M.predicted among non-blacks MDRD (S/P/Bld) [Vol rate/Area] 91 mL/min/{1.73_m2} Normal > OR = 60 [facility] Comment on above: Performed By: #### 7 600, 899, 64026, 6399, 98763 #### [facility] [place] [address] Jeeper Operator: Esteban Shen MD Globulin (S) [Mass/Vol] 2.7 g/dL Normal 1.9-3.7 [facility] Comment on above: Performed By: #### 7 600, 899, 57019, 6399, 04031 #### [facility] of [place] [address] Jeeper Operator: Esteban Shen MD Glucose [Mass/Vol] 96 mg/dL Normal 65-99 [facility] Comment on above: Result Comment: Fasting reference interval Performed By: #### 7 600, 899, 02990, 6399, 57588 #### [facility] [place] [address] Jeeper Operator: Esteban Shen MD Potassium [Moles/Vol] 4.4 mmol/L Normal 3.5-5.[address] [facility] [address] [facility] Comment on above: Performed By: #### 7 600, 899, 25498, 6399, 68337 #### [facility] [place] [address] Jeeper Operator: Esteban Shen MD Protein [Mass/Vol] 6.7 g/dL Normal 6.1-8.1 [facility] Comment on above: Performed By: #### 7 600, 899, 14857, 6399, 09255 #### [facility] of [place] [address] Jeeper Operator: Esteban Shen MD Sodium [Moles/Vol] 140 mmol/L Normal 135-146 [facility] Comment on above: Performed By: #### 7 600, 899, 98747, 6399, 06017 #### [facility] of [place] [address] Jeeper Operator: Esteban Shen MD Urea nitrogen [Mass/Vol] 21 mg/dL Normal 7-25 [facility] Comment on above: Performed By: #### 7 600, 899, 72798, 6399, 47693 #### [facility] [place] [address] Jeeper Operator: Esteban Shen MD LIPID PANEL, [address] Cholesterol [Mass/Vol] 190 mg/dL Normal <200 [facility] Comment on above: Performed By: #### 7 600, 899, 67072, 6399, 59119 #### [facility] [address], [address] [place] [address] Jeeper Operator: Esteban Shen MD Cholesterol in HDL [Mass/Vol] 66 mg/dL Normal > OR = 50 [facility] Comment on above: Performed By: #### 7 600, 899, 60878, 6399, 85733 #### [facility] [place] [address] Jeeper Operator: Esteban Shen MD Cholesterol in LDL [...] LDL-C. Rohan HO et al. NIEVES. 2013;310(19): 6190-5776 (http://education.Indyarocks.Shoette/faq/SXO695) Performed By: #### 7 600, 899, 86350, 6399, 59731 #### [facility] [address], [address] [place] [address] Jeeper Operator: Esteban Shen MD Cholesterol.total/Chol esterol in HDL [Mass ratio] 2.9 {ratio} Normal <5.0 [facility] Comment on above: Performed By: #### 7 600, 899, 60049, 6399, 71074 #### [facility] [place] [address] Jeeper Operator: Esteban Shen MD NON HDL CHOLESTEROL 124 mg/dL (calc) Normal <130 [facility] Comment on above: Result Comment: For patients with diabetes plus 1 major ASCVD risk factor, treating to a non-HDL-C goal of <100 mg/dL (LDL-C of <70 mg/dL) is considered a therapeutic option. Performed By: #### 7 600, 899, 42343, 6399, 37159 #### [facility] [place] [address] Jeeper Operator: Esteban Shen MD Triglyceride [Mass/Vol] 116 mg/dL Normal <150 [facility] Comment on above: Performed By: #### 7 600, 899, 78917, 6399, 65875 #### [facility] [place] [address] Jeeper Operator: Esteban Shen MD T4, FREEon 03-18-2025 Free T4 [Mass/Vol] 1.0 ng/dL Normal 0.8-1.8 [facility] Comment on above: Performed By: #### 7 600, 899, 57333, 6399, 81126 #### [facility] [place] [address] Jeeper Operator: Esteban Shen MD TSHon 03-18-2025 TSH Qn 2.46 m[IU]/L Normal 0.40-4.50 [facility] Comment on above: Performed By: #### 1 0231, 7600, 36961, 899, 1005, 866 #### [facility] [place] [address] Jeeper Operator: Esteban Shen MD VITAMIN D,25-OH,TOTAL,IAon 0 [...] D, (D2,D3), LC/MS/MS is recommended: order code 58857 (patients >2yrs). See Note 1 Note 1 For additional information, please refer to http://education.Indyarocks.Shoette/faq/TYQ704 (This link is being provided for informational/ educational purposes only.) Performed By: #### 1 0231, 7600, 81698, 899, 1005, 866 #### [facility] [place] [address] [facility], [address] [place] [id number] Jeeper Operator: Esteban Shen MD Laboratory - Chemistry and C hemistry - challengeon 03-17-2025 Albumin [Mass/Vol] 4.0 g/dL Normal 3.6 - 5.1 g/dL [facility], [facility].; [employer] Albumin/Globulin [Mass ratio] 1.5 {ratio} Normal 1.0 - 2.5 [facility], [facility].; [employer] ALP [Catalytic activity/Vol] 55 U/L Normal 37 - 153 U/L [facility], [facility].; [employer] [facility] ALT [Catalytic activity/Vol] 19 U/L Normal 6 - 29 U/L [facility], [facility].; [employer] AST [Catalytic activity/Vol] 18 U/L Normal 10 - 35 U/L [facility], [facility].; [employer] Bilirubin [Mass/Vol] 0.4 mg/dL Normal 0.2 - 1 .2 mg/dL [employer] [facility], [facility].; [employer] Calcium [Mass/Vol] 9.3 mg/dL Normal 8.6 - 10. 4 mg/dL [employer] [facility], [facility].; [employer] Chloride [Moles/Vol] 105 mmol/L Normal 98 - 11 0 mmol/L [facility], [facility].; [employer] Cholesterol [Mass/Vol] 190 mg/dL Normal [facility].; [employer] [facility]. Cholesterol in HDL [Mass/Vol] 66 mg/dL Normal [facility].; [facility]. Cholesterol in LDL [Mass/Vol] 103 mg/dL Abnormal [facility].; [employer] [facility], [facility]. CO2 [Moles/Vol] 25 mmol/L Normal 20 - 32 mmol/L [facility].; [employer] [facility], [facility]. Creatinine [Mass/Vol] 0.66 mg/dL Normal 0.60 - 1.00 mg/dL [facility].; [employer], [facility]. Free T4 [Mass/Vol] 1.0 ng/dL Normal 0.8 - 1.8 ng/dL [facility].; [employer] [facility]. GFR/1.73 sq M.predicted among non-blacks MDRD (S/P/Bld) [Vol rate/Area] 91 mL/min/{1.73_m2} Normal [facility].; [employer] [facility], [facility]. Glucose [Mass/Vol] 96 mg/dL Normal 65 - 99 mg/dL [facility].; [employer], [facility]. Potassium [Moles/Vol] 4.4 mmol/L Normal 3.5 - 5.3 mmol/L [facility].; [employer] [facility], [employer]. Protein [Mass/Vol] 6.7 g/dL Normal 6.1 - 8.1 g/dL [facility], [facility].; [employer], [employer]. Sodium [Moles/Vol] 140 mmol/L Normal 135 - 146 mmol/L [facility].; [employer], [employer]. Triglyceride [Mass/Vol] 116 mg/dL Normal [employer] [facility].; [employer], [employer]. TSH Qn 2.46 m[IU]/L Normal 0.40 - 4.50 {mIU/L} [employer] [facility].; [employer], [employer]. Urea nitrogen [Mass/Vol] 21 mg/dL Normal 7 - 25 mg/dL [facility].; [employer]. Laboratory - Hematology and Cell countson 03-17-2025 Basophils (Bld) [#/Vol] 0.055 10*3/uL Normal 0 - 200 {cells/uL} [facility].; [facility]. Basophils/100 WBC (Bld) 0.5 % Normal [facility].; [facility], [facility]. Eosinophils (Bld) [#/Vol] 0.154 10*3/uL Normal 15 - 500 {cells/uL} [facility], [facility].; [facility], [facility]. Eosinophils/100 WBC (Bld) 1.4 % Normal [facility].; [facility], [facility] Erythrocyte distribution width (RBC) [Ratio] 14.0 % Normal 11.0 - 15.0 % [facility].; [facility], [facility]. Hematocrit (Bld) [Volume fraction] 42.3 % Normal 35.0 - 45.0 % [facility], [facility].; [facility], [facility] Hemoglobin (Bld) [Mass/Vol] 13.0 g/dL Normal 11.7 - 15.5 g/dL [facility].; [facility], [facility]. Lymphocytes (Bld) [#/Vol] 1.606 10*3/uL Normal 850 - 3900 {cells/uL} [facility].; [facility], [facility]. Lymphocytes/100 WBC (Bld) 14.6 % Normal [facility].; [employer], [facility]. MCH (RBC) [Entitic mass] 29.7 pg Normal 27.0 - 33.0 pg [facility].; [employer], [facility]. MCHC (RBC) [Mass/Vol] 30.7 g/dL Abnormal 32.0 - 36.0 g/dL [facility].; [employer] [facility], [facility]. MCV (RBC) [Entitic vol] 96.6 fL Normal 80.0 - 100.0 fL [facility].; [employer] [facility], [facility]. Monocytes (Bld) [#/Vol] 0.539 10*3/uL Normal 200 - 950 {cells/uL} [facility], [facility].; [employer], [facility]. Monocytes/100 WBC (Bld) 4.9 % Normal [facility].; [employer] [facility]. Neutrophils (Bld) [#/Vol] 8.646 10*3/uL Abnormal 1500 - 7800 {cells/uL} [employer] [facility].; [employer]. Neutrophils/100 WBC (Bld) 78.6 % Normal [employer].; [employer]. Platelet mean volume (Bld) [Entitic vol] 10.4 fL Normal 7.5 - 12.5 fL [employer] [facility].; [employer]. Platelets (Bld) [#/Vol] 357 10*3/uL Normal 140 - 400 [employer]. RBC (Bld) [#/Vol] 4.38 10*6/uL Normal 3.80 - 5.10 {Million/u L} [employer].; [employer]. WBC (Bld) [#/Vol] 11.0 10*3/uL Abnormal 3.8 - 10.8 [facility] [employer] [facility].; [employer]. No Panel Informationon 03-17 BUN/CREATININE RATIO SEE NOTE: Normal 6 - 22 [facility] [employer] [facility].; [employer]. CHOL/HDLC RATIO 2.9 Normal [employer]. GLOBULIN 2.7 Normal 1.9 - 3.7 [employer] [facility].; [employer]. NON HDL CHOLESTEROL 124 Normal [facility] [employer] [facility].; [employer]. VITAMIN D,25-OH,TOTAL,IA 26 ng/mL Abnormal 30 - 100 ng/mL [employer]. Oncology Visit Reporton 03-02 Oncology Visit Report [facility] [address] [place] [address] OFFICE VISIT Date of Service: 03/15/25804 MR#: [id number] Acct: [id number] Name: JESSIKA CARRILLO Rep #: [id number] : 1950 From: Alyssa Lynch NP BRIDGE MAINTAINER -C Age/Sex: 74/F Location[place] [facility] [place]: Signed HPI Subjective Date of Service 03/15/25 Chief Complaint Colon cancer History of Present Illness 74-year-old female with no family of colon cancer had screening colonoscopy August 17, [address] Boles at [place] with 2 sessile polypoid lesions were found, [...] left kidney. Patient was then referred to [facility] for further management. December 31, 2024 MRI [...] January 23, 2025 robotic right hemicolectomy at [facility] by Dr. Antonio. Pathology: Right colon terminal [...] January 23, 2025 robotic right hemicolectomy at [facility]. Interval History The patient is presenting to clinic accompanied by adult daughter, Don for an education visit. No diarrhea, has not identified any aggravating foods. Reports active lifestyle and good support system by way of daughters. [facility] Medical History (Updated 03/15/25 @ 08:16 by Alyssa Lynch NP, BRIDGE MAINTAINER-C) Encounter for education Lung nodules Regional lymph [...] Access Minal (more content not included)... Normal [facility] Surgery Visit Reporton 03-15 Surgery Visit Report [facility] [address] [place] [address] OFFICE VISIT Date of Service: 03/15/25 MR#: [id number] Acct: [id number] Name: JESSIKA CARRILLO Rep #: [id number] : 1950 Provider: Dr. Michael pagan MD Age/Sex: 74/F Location: [facility] Status: Signed Intake Vital Signs 03/09/25 09:22 [...] healthy appearing, comfortable and no acute distress HENUT Head: normal to inspection Eyes General: appearance [...] Level o (more content not included)... Normal [facility] Carcinoembryonic Antigenon 0 03-10-2025 CEA 6.3 ng/mL High 0.0-4.7 [facility] Comment on above: Result Comment: Nons mokers <3.9 Smokers <5.6 [facility] Electrochemiluminescence Immunoassay (ECLIA) Values obtained with different assay methods or kits cannot be used interchangeably. Results cannot be interpreted as absolute evidence of the presence or absence of malignant disease. Performed at: [address] [id number] [employer]outs: Abimael Sheridan PhD, Phone: [phone] Performed By: #### L 100.7078, L551.3231, A4863.4113 ####[facility] [address] [place], [address] Absolute lymphocyte countOrd ered By: [place] on 03-09-2025 Lymphocytes Auto (Unsp spec) [#/Vol] 1.75 10*3/uL 0.83-4.51 [facility] Absolute neutrophil countOrd ered By: [place] on 03-09-2025 Neutrophils (Bld) [#/Vol] 5.1 10*3/uL 2.0-7.7 [facility] Anion gap in Serum or Plasma Ordered By: [place] on 03-09-2025 Anion gap [Moles/Vol] 11 mmol/L 5-15 [facility] Automated lymphocyte count a s percentage of total leukocytesOrdered By: [place] on 03-09-2025 Lymphocytes/100 WBC Auto (Unsp spec) 22.7 % 19-41 [facility] BUN/creatinine ratioOrdered By: [facility] [place] on 03-09-2025 Urea nitrogen/Creatinine [Mass ratio] 20.1 mg/mg High 10-20 [facility] Basophil percentageOrdered B y: [place] on 03-09-2025 Basophils/100 WBC (Bld) 1.2 % High 0-1 [facility] Bilirubin, totalOrdered By: [facility] [place]ia on 03-09-2025 Bilirubin [Mass/Vol] 0.41 mg/dL 0.00-1.30 [facility] CBC W/Diff, Automatedon Absolute Lymph 1.75 X10 3/uL Normal 0.83-4.51 [facility] Comment on above: Performed By: #### L 100.0100, L500.4050, L3100.2300 ####[facility] [address] [place], [address] Absolute Neut 5.1 X10 3/uL Normal 2.0-7.7 [facility] Comment on above: Performed By: #### L 100.0100, L500.4050, L3100.2300 ####[facility] [address] [place], [address] Basophils/100 WBC (Bld) 1.2 % High 0-1 [facility] Comment on above: Performed By: #### L 100.0100, L500.4050, L3100.2300 ####[facility] [address] [place], [address] Eosinophils/100 WBC (Bld) 2.5 % Normal 0-5 [facility] Comment on above: Performed By: #### L 100.0100, L500.4050, L3100.2300 ####[facility] [address] [place], [address] Erythrocyte distribution width (RBC) [Ratio] 12.9 % Normal 11.6-14.6 [facility] Comment on above: Performed By: #### L 100.0100, L500.4050, L3100.2300 ####[facility] [address] [place], [address] Hematocrit (Bld) [Volume fraction] 41.3 % Normal 37-47 [facility] Comment on above: Performed By: #### L 100.0100, L500.4050, L3100.2300 ####[facility] [address] [place], [address] Hemoglobin (Bld) [Mass/Vol] 13.9 g/dL Normal 12.0-15.0 [facility] Comment on above: Performed By: #### L 100.0100, L500.4050, L3100.2300 ####[facility] [address] [place], [address] IG% 0.400 Normal 0.0-0.9 [facility] Comment on above: Result Comment: IG% - Immature Granulocytes (promyelocytes, myelocytes and metamyelocytes) > 1% indicates that a LEFT SHIFT is Present. Performed By: #### L 100.0100, L500.4050, L3100.2300 ####[facility] [address] [place], [address] Lymphocytes/100 WBC (Bld) 22.7 % Normal 19-41 [facility] Comment on above: Performed By: #### L 100.0100, L500.4050, L3100.2300 ####[facility] [address] [place], [address] MCH (RBC) [Entitic mass] 30.4 pg Normal 27.0-32.0 [facility] Comment on above: Performed By: #### L 100.0100, L500.4050, L3100.2300 ####[facility] [address] [place], [address] MCHC (RBC) [Mass/Vol] 33.7 g/dL Normal 32-36 [facility] Comment on above: Performed By: #### L 100.0100, L500.4050, L3100.2300 ####[facility] [address] [place], [address] MCV (RBC) [Entitic vol] 90.4 fL Normal 81-99 [facility] Comment on above: Performed By: #### L 100.0100, L500.4050, L3100.2300 ####[facility] [address] [place], [address] Monocytes/100 WBC (Bld) 6.7 % Normal 0-10 [facility] Comment on above: Performed By: #### L 100.0100, L500.4050, L3100.2300 ####[facility] [address] [place], [address] Neutrophils/100 WBC (Bld) 66.5 % Normal 47-70 [facility] Comment on above: Performed By: #### L 100.0100, L500.4050, L3100.2300 ####[facility] [address] [place], [address] Nucleated RBC (Bld) [#/Vol] 0 10*3/uL Normal 0-5 [facility] Comment on above: Performed By: #### L 100.0100, L500.4050, L3100.2300 ####[facility] [address] [place], [address] Platelet mean volume (Bld) [Entitic vol] 8.8 fL Normal 6.2-12.0 [facility] Comment on above: Performed By: #### L 100.0100, L500.4050, L3100.2300 ####[facility] [address] [place], [address] Platelets (Bld) [#/Vol] 382 10*3/uL Normal 150-450 [facility] Comment on above: Performed By: #### L 100.0100, L500.4050, L3100.2300 ####[facility] [address] [place], [address] RBC (Bld) [#/Vol] 4.57 10*6/uL Normal 4.2-5.4 [facility] Comment on above: Performed By: #### L 100.0100, L500.4050, L3100.2300 ####[facility] [address] [place], [address] RDW SD 42.3 fl Normal 35.1-43.9 [facility] Comment on above: Performed By: #### L 100.0100, L500.4050, L3100.2300 ####[facility] [address] [place], [address] WBC (Bld) [#/Vol] 7.7 10*3/uL Normal 4.4-11.0 [facility] Comment on above: Performed By: #### L 100.0100, L500.4050, L3100.2300 ####[facility] [address] [place], [address] Carbon dioxide, total [Moles /volume] in Central venous bloodOrdered By: [place] on 03-09-2025 CO2 [Moles/Vol] 25.5 mmol/L 21.0-32.0 [facility] Chloride assayOrdered By: [place] on 03-09-2025 Chloride [Moles/Vol] 102 mmol/L 98-108 [facility] Comprehensive Metabolic Prof ilon 03-09-2025 Albumin [Mass/Vol] 4.1 g/dL Normal 3.4-4.8 [facility] Comment on above: Performed By: #### L 100.0100, L500.4050, L3100.2300 ####[facility] [address] [place], [address] Albumin/Globulin [Mass ratio] 1.3 {ratio} Normal 0.9-2.4 [facility] Comment on above: Performed By: #### L 100.0100, L500.4050, L3100.2300 ####[facility] [address] [place], [address] ALK PHOS 73 U/L Normal 35-104 [facility] Comment on above: Performed By: #### L 100.0100, L500.4050, L3100.2300 ####[facility] [address] [place], [address] ALT [Catalytic activity/Vol] 26 U/L Normal <=34 [facility] Comment on above: Performed By: #### L 100.0100, L500.4050, L3100.2300 ####[facility] [address] [place], [address] AST [Catalytic activity/Vol] 34 U/L High <=31 [facility] Comment on above: Performed By: #### L 100.0100, L500.4050, L3100.2300 ####[facility] [address] [place], [address] Bilirubin [Mass/Vol] 0.41 mg/dL Normal 0.00-1.30 [facility] Comment on above: Performed By: #### L 100.0100, L500.4050, L3100.2300 ####[facility] [address] [place], [address] BUN/CRE 20.1 RATIO High 10-20 [facility] Comment on above: Performed By: #### L 100.0100, L500.4050, L3100.2300 ####[facility] [address] [place], [address] Calcium [Mass/Vol] 9.8 mg/dL Normal 7.6-11.0 [facility] Comment on above: Performed By: #### L 100.0100, L500.4050, L3100.2300 ####[facility] [address] [place], [address] Chloride [Moles/Vol] 102 mmol/L Normal 98-108 [facility] Comment on above: Performed By: #### L 100.0100, L500.4050, L3100.2300 ####[facility] [address] [place], [address] CO2 [Moles/Vol] 25.5 mmol/L Normal 21.0-32.0 [facility] Comment on above: Performed By: #### L 100.0100, L500.4050, L3100.2300 ####[facility] [address] [place], [address] Creatinine [Mass/Vol] 0.74 mg/dL Normal 0.70-1.20 [facility] Comment on above: Performed By: #### L 100.0100, L500.4050, L3100.2300 ####[facility] [address] [place], [address] GAP 11 Normal 5-15 [facility] Comment on above: Performed By: #### L 100.0100, L500.4050, L3100.2300 ####[facility] [address] [place], [address] GFR/1.73 sq M.predicted among non-blacks MDRD (S/P/Bld) [Vol rate/Area] 84 mL/min/{1.73_m2} Normal >60 [facility] Comment on above: Result Comment: mL/m in/1.73m2 CKD-EPI Creatinine Equation (2020) Performed By: #### L 100.0100, L500.4050, L3100.2300 ####[facility] [address] [place], [address] Globulin (S) [Mass/Vol] 3.3 g/dL Normal 2.2-4.2 [facility] Comment on above: Performed By: #### L 100.0100, L500.4050, L3100.2300 ####[facility] [address] [place], [address] Glucose [Mass/Vol] 101 mg/dL High 70-99 [facility] Comment on above: Performed By: #### L 100.0100, L500.4050, L3100.2300 ####[facility] [address] [place], [address] Potassium [Moles/Vol] 4.2 mmol/L Normal 3.3-5.1 [facility] Comment on above: Performed By: #### L 100.0100, L500.4050, L3100.2300 ####[facility] [address] [place], [address] Sodium [Moles/Vol] 139 mmol/L Normal 133-145 [facility] Comment on above: Performed By: #### L 100.0100, L500.4050, L3100.2300 ####[facility] [address] [place], [address] T PROT 7.4 g/dL Normal 5.9-8.4 [facility] Comment on above: Performed By: #### L 100.0100, L500.4050, L3100.2300 ####[facility] [address] [place], [address] Urea nitrogen [Mass/Vol] 15 mg/dL Normal 4-19 [facility] Comment on above: Performed By: #### L 100.0100, L500.4050, L3100.2300 ####[facility] [address] [place], [address] Eosinophil percentageOrdered By: [place] on 03-09-2025 Eosinophils/100 WBC (Bld) 2.5 % 0-5 [facility] Erythrocyte distribution wid th ratioOrdered By: [facility] Hospital[facility] [place] on 03-09-2025 Erythrocyte distribution width (RBC) [Ratio] 12.9 % 11.6-14.6 [facility] Erythrocyte distribution wid th standard deviationOrdered By: [place] on 03-09-2025 Erythrocyte distribution width (RBC) [Ratio] 42.3 fl 35.1-43.9 [facility] Glomerular filtration rate ( GFR) estimation/1.73 sq m using serum, plasma, or whole bOrdered By: [facility] Hospital[facility]ie [place] on 03-09-2025 GFR/1.73 sq M.predicted among non-blacks MDRD (S/P/Bld) [Vol rate/Area] 84 mL/min/{1.73_m2} >60 [facility] Comment on above: mL/min/1.73m2 CKD-EP I Creatinine Equation (2020) Hematocrit Auto (Bld) [Volum e fraction]Ordered By: [facility] [place] on 03-09-2025 Hematocrit (Bld) [Volume fraction] 41.3 % 37-47 [facility] Hemoglobin measurementOrdere d By: [place] on 03-09-2025 Hemoglobin (Bld) [Mass/Vol] 13.9 g/dL 12.0-15.0 [facility] Immature granulocytes/100 WB C Auto (Bld)Ordered By: [place] Conn on 03-09-2025 Immature granulocytes/100 WBC (Bld) 0.400 % 0.0-0.9 [facility] Comment on above: IG% - Immature Granu locytes (promyelocytes, myelocytes and metamyelocytes) > 1% indicates that a LEFT SHIFT is Present. Laboratory - Chemistry and C hemistry - challengeOrdered By: [place] on 03-09-2025 AST [Catalytic activity/Vol] 34 U/L High <32 [facility] MCV (mean corpuscular volume ) determinationOrdered By: [place] on 03-09-2025 MCV (RBC) [Entitic vol] 90.4 fL 81-99 [facility] Mean corpuscular hemoglobin (MCH) determinationOrdered By: [place] on 03-09-2025 MCH (RBC) [Entitic mass] 30.4 pg 27.0-32.0 [facility] Mean corpuscular hemoglobin concentration (MCHC) determinationOrdered By: [place] on 03-09-2025 MCHC (RBC) [Mass/Vol] 33.7 g/dL 32-36 [facility] Mean platelet volume determi nationOrdered By: [place] on 03-09-2025 Platelet mean volume (Bld) [Entitic vol] 8.8 fL 6.2-12.0 [facility] Monocyte percentageOrdered B y: [place] on 03-09-2025 Monocytes/100 WBC (Bld) 6.7 % 0-10 [facility] Neutrophil percentageOrdered By: [place] on 03-09-2025 Neutrophils/100 WBC (Bld) 66.5 % 47-70 [facility] Nucleated red blood cell per centageOrdered By: [place] on 03-09-2025 Nucleated RBC/100 WBC (Bld) [Ratio] 0 % 0-5 [facility] Oncology Visit Reporton Oncology Visit Report [facility] [address] [place] [id number] OFFICE VISIT Date of Service: 03/09/2515 MR#: [id number] Acct: [id number] Name: JESSIKA CARRILLO Perry Rep #: [id number] : 1950 From: [place] MD Age/Sex: 74/F Location: [facility] [place] Status: Signed HPI Subjective Date of Service 03/09/25 Chief Complaint Colon cancer History of Present Illness 74-year-old female with no family of colon cancer had screening colonoscopy August 17, [address] Boles at [place] with 2 sessile polypoid lesions were found, [...] left kidney. Patient was then referred to [facility] for further management. December 31, 2024 MRI [...] January 23, 2025 robotic right hemicolectomy at [facility] by Dr. Antonio. Pathology: Right colon terminal [...] January 23, 2025 robotic right hemicolectomy at [facility]. [facility] Medical History (Updated 03/09/25 @ 10:09 by [...] as documen (more content not included)... Normal [facility] Platelet countOrdered By: Ru Conn on 03-09-2025 Platelets (Bld) [#/Vol] 382 10*3/uL 150-450 [facility] Potassium measurement (mass/ volume)Ordered By: [place] on 03-09-2025 Potassium (Unsp spec) [Mass/Vol] 4.2 mmol/L 3.3-5.1 [facility] RBC Auto (Bld) [#/Vol]Ordere d By: [place] on 03-09-2025 RBC (Bld) [#/Vol] 4.57 10*6/uL 4.2-5.4 [facility] Serum creatinine measurement (mass/volume)Ordered By: [place] on 03-09-2025 Creatinine [Mass/Vol] 0.74 mg/dL 0.70-1.20 [facility] Serum globulin measurementOr dered By: [place] on 03-09-2025 Globulin (S) [Mass/Vol] 3.3 g/dL 2.2-4.2 [facility] Serum glucose measurement (m ass/volume)Ordered By: [place] on 03-09-2025 Glucose [Mass/Vol] 101 mg/dL High 70-99 [facility] Serum or plasma alanine rojo otransferase (ALT) measurementOrdered By: [place] on 03-09-2025 ALT [Catalytic activity/Vol] 26 U/L <35 [facility] Serum or plasma albumin alfredo urement (mass/volume)Ordered By: [place] on 03-09-2025 Albumin [Mass/Vol] 4.1 g/dL 3.4-4.8 [facility] Serum or plasma albumin/glob ulin mass ratioOrdered By: [place] on 03-09-2025 Albumin/Globulin [Mass ratio] 1.3 {ratio} 0.9-2.4 [facility] Serum or plasma alkaline marisabel sphatase measurementOrdered By: [place] on 03-09-2025 ALP [Catalytic activity/Vol] 73 U/L 35-104 [facility] Serum or plasma calcium alfredo urement (mass/volume)Ordered By: [place] on 03-09-2025 Calcium [Mass/Vol] 9.8 mg/dL 7.6-11.0 [facility] Serum or plasma carcinoembry onic antigen measurement (mass/volume)Ordered By: [place] on 03-09-2025 Carcinoembryonic Ag [Mass/Vol] 6.3 ng/mL High 0.0-4.7 [facility] Comment on above: Nonsmokers <3.9 Smok ers <5.6[employer] Electrochemiluminescence Immunoassay(ECLIA)Values obtained with different assay methods or kitscannot be used interchangeably. Results cannot beinterpreted as absolute evidence of the presence orabsence of malignant disease.Performed at: [facility] [place], [place] [id number] Director: Abimael Sheridan PhD, Phone: [phone] Serum or plasma urea nitroge n measurement (mass/volume)Ordered By: [place] on 03-09-2025 Urea nitrogen [Mass/Vol] 15 mg/dL 4-19 [facility] Sodium levelOrdered By: Kurt mejia Senia on 03-09-2025 Sodium [Moles/Vol] 139 mmol/L 133-145 [facility] Total proteinOrdered By: Shady burroughs Senia on 03-09-2025 Protein [Mass/Vol] 7.4 g/dL 5.9-8.4 [facility] White blood cell (WBC) count Ordered By: [place] on 03-09-2025 WBC (Bld) [#/Vol] 7.7 10*3/uL 4.4-11.0 [facility] CBC,PLATELETSon 01-28-2025 Erythrocyte distribution width (RBC) [Ratio] 13.1 % 10.8 - 14.9 % [facility] Hematocrit (Bld) [Volume fraction] 36.4 % 34.9 - 44.3 % [facility] Hemoglobin (Bld) [Mass/Vol] 12.1 g/dL 11.4 - 15.2 g/dL [facility] Interpretation and review of laboratory results Abnormal [facility] MCH (RBC) [Entitic mass] 30.3 pg 25.9 - 33.9 pg [facility] MCHC (RBC) [Mass/Vol] 33.2 g/dL 31.4 - 35.9 g/dL [facility] MCV (RBC) [Entitic vol] 91 fL 79.6 - 97.7 fL [facility] Platelet mean volume (Bld) [Entitic vol] 8.8 fL 8.5 - 12.2 fL [facility] Platelets (Bld) [#/Vol] 377 10*3/uL 150 - 393 K/uL [facility] RBC (Bld) [#/Vol] 4 10*6/uL [facility] WBC (Bld) [#/Vol] 11.33 10*3/uL High 3.99 - 11.19 K/uL [facility] Hematocrit (Bld) [Volume fraction] 36.4 % Normal 34.9-44.3 [facility] Comment on above: Performed By: #### H EMOGC #### [facility] (DEFAULT) [address] [address] Hemoglobin (Bld) [Mass/Vol] 12.1 g/dL Normal 11.4-15.2 [facility] Comment on above: Performed By: #### H EMOGC #### [facility] (DEFAULT) [address] [address] MCV (RBC) [Entitic vol] 91.0 fL Normal 79.6-97.7 [facility] Comment on above: Performed By: #### H EMOGC #### [facility] (DEFAULT) [address] [address] Mean Cell Hgb 30.3 pg Normal 25.9-33.9 [facility] Comment on above: Performed By: #### H EMOGC #### [facility] (DEFAULT) [address] [address] Mean Cell Hgb Conc 33.2 g/dL Normal 31.4-35.9 [facility] Comment on above: Performed By: #### H EMOGC #### [facility] (DEFAULT) [address] [address] Platelet mean volume (Bld) [Entitic vol] 8.8 fL Normal 8.5-12.2 [facility] Comment on above: Performed By: #### H EMOGC #### [facility] (DEFAULT) [address] [address] Platelets (Bld) [#/Vol] 377 10*3/uL Normal 150-393 [facility] Comment on above: Performed By: #### H EMOGC #### [facility] (DEFAULT) [address] [place] [address] RBC (Bld) [#/Vol] 4.00 10*6/uL Normal 3.91-5.04 [facility] Comment on above: Performed By: #### [facility] [place] #### [facility] (DEFAULT) [address] [place] [address] RBC Distribution 13.1 % Normal 10.8-14.9 [facility] Comment on above: Performed By: #### [facility] [place] #### [facility] (DEFAULT) [address] [place] [address] WBC (Bld) [#/Vol] 11.33 10*3/uL High 3.99-11.19 [facility] Comment on above: Performed By: #### [facility] [place] #### [facility] (DEFAULT) [address] [place] [address] CHEM 7 (LYTES,BUN,CREA,GLUC) on 01-28-2025 Anion gap [Moles/Vol] 11 mmol/L 7 - 17 mmol/L [facility] Chloride [Moles/Vol] 104 mmol/L 98 - 10 8 mmol/L [facility] CO2 [Moles/Vol] 25 mmol/L 21 - 31 mmol/L [facility] Creatinine [Mass/Vol] 0.66 mg/dL 0.50 - 1.20 mg/dL [facility] eGFR, CKD-EPI, Female - PINF [facility] Comment on above: Reported eGFR is bas ed on the CKD-EPI 2020 equation using creatinine, age, and sex. Glucose [Mass/Vol] 98 mg/dL 70 - 179 mg/dL [facility] Osmolality Calc [Osmolality] 285 [facility] Potassium [Moles/Vol] 4.2 mmol/L 3.5 - 5.0 mmol/L [facility] Sodium [Moles/Vol] 136 mmol/L 135 - 145 mmol/L [facility] Urea nitrogen [Mass/Vol] 10 mg/dL 7 - 25 mg/dL [facility] Urea nitrogen/Creatinine [Mass ratio] 15 mg/mg [facility] Anion gap [Moles/Vol] 11 mmol/L Normal 7-17 [facility] Comment on above: Performed By: #### MILAGRO HUNT, CHM7 #### [facility] (DEFAULT) [address] [place] [address] Chloride [Moles/Vol] 104 mmol/L Normal 98-108 [facility] Comment on above: Performed By: #### MILAGRO HUNT, CHM7 #### [facility] (DEFAULT) [address] [place] [address] CO2 [Moles/Vol] 25 mmol/L Normal 21-31 [facility] Comment on above: Performed By: #### MILAGRO HUNT, CHM7 #### [facility] (DEFAULT) [address] [place] [address] Creatinine [Mass/Vol] 0.66 mg/dL Normal 0.50-1.20 [facility] Comment on above: Performed By: #### MILAGRO HUNT, CHM7 #### [facility] (DEFAULT) [address] [place] [address] eGFR, CKD-EPI, Female > Normal >=60 [facility] Comment on above: Result Comment: Repo rted eGFR is based on the CKD-EPI 2020 equation using creatinine, age, and sex. Performed By: #### MILAGRO HUNT, CHM7 #### [facility] (DEFAULT) [address] [place] [address] Glucose [Mass/Vol] 98 mg/dL Normal Nonfastin g : 70-179 mg/dL; Fastin-99 [facility] Comment on above: Performed By: #### MILAGRO HUNT, CHM7 #### [facility] (DEFAULT) [address] [place] [address] Osmolality [Osmolality] 285 mosm/kg Normal 278-305 [facility] Comment on above: Performed By: #### MILAGRO HUNT, CHM7 #### [facility] (DEFAULT) [address] [place] [address] Potassium [Moles/Vol] 4.2 mmol/L Normal 3.5-5.0 [facility] Comment on above: Performed By: #### MILAGRO HUNT, CHM7 #### [facility] (DEFAULT) [address] [place] [address] Sodium [Moles/Vol] 136 mmol/L Normal 135-145 [facility] Comment on above: Performed By: #### MILAGRO HUNT CHM7 #### [facility] (DEFAULT) [address] [place] [address] Urea nitrogen [Mass/Vol] 10 mg/dL Normal 7-25 [facility] Comment on above: Performed By: #### MILAGRO HUNT CHM7 #### [facility] (DEFAULT) [address] [place] [address] Urea nitrogen/Creatinine [Mass ratio] 15 mg/mg Normal [facility] Comment on above: Performed By: #### MILAGRO HUNT, CHM7 #### [facility] (DEFAULT) [address] [place] [address] MAGNESIUMon 01-28-2025 Magnesium [Mass/Vol] 1.8 mg/dL 1.6 - 2 .6 mg/dL [facility] Magnesium [Mass/Vol] 1.8 mg/dL Normal 1.6-2.6 [facility] Comment on above: Performed By: #### MILAGRO HUNT, CHM7 #### [facility] (DEFAULT) [address] [place] [address] No Panel Informationon 01-28 Interpretation and review of laboratory results Normal [facility] PHOSPHATE, INORGANICon 01-28 Phosphate [Mass/Vol] 3.2 mg/dL 2.2 - 4 .6 mg/dL [facility] Phosphorous 3.2 mg/dL Normal 2.2-4.6 [facility] Comment on above: Performed By: #### M POORNIMA, MILAGRO, CHM7 #### [facility] (DEFAULT) [address] [place] [address] XR ABDOMEN 1 VIEW PORTABLEon 01-28-2025 XR [...] postoperative ileus versus less likely obstruction. Normal [facility] XR Abdomen Single viewon IMPRESSION: Worsening probable [...] probable postoperative ileus versus less likely obstruction. [facility] Radiology Study observation (narrative) [facility] XR Abdomen Single viewOrdere d By: Katia Palencia on 01-28-2025 [facility] Work Phone: CBC,PLATELETSon 01-27-2025 Erythrocyte distribution width (RBC) [Ratio] 13.2 % 10.8 - 14.9 % [facility] Hematocrit (Bld) [Volume fraction] 37.2 % 34.9 - 44.3 % [facility] Hemoglobin (Bld) [Mass/Vol] 11.7 g/dL 11.4 - 15.2 g/dL [facility] Interpretation and review of laboratory results Abnormal [facility] MCH (RBC) [Entitic mass] 29.2 pg 25.9 - 33.9 pg [facility] MCHC (RBC) [Mass/Vol] 31.5 g/dL 31.4 - 35.9 g/dL [facility] MCV (RBC) [Entitic vol] 92.8 fL 79.6 - 97.7 fL [facility] Platelet mean volume (Bld) [Entitic vol] 9.8 fL 8.5 - 12.2 fL [facility] Platelets (Bld) [#/Vol] 379 10*3/uL 150 - 393 K/uL [facility] RBC (Bld) [#/Vol] 4.01 10*6/uL [facility] WBC (Bld) [#/Vol] 11.95 10*3/uL High 3.99 - 11.19 K/uL [facility] Hematocrit (Bld) [Volume fraction] 37.2 % Normal 34.9-44.3 [facility] Comment on above: Performed By: #### [facility] [place] #### [facility] (DEFAULT) [address] [address] Hemoglobin (Bld) [Mass/Vol] 11.7 g/dL Normal 11.4-15.2 [facility] Comment on above: Performed By: #### H EMOGC #### [facility] (DEFAULT) [address] [address] MCV (RBC) [Entitic vol] 92.8 fL Normal 79.6-97.7 [facility] Comment on above: Performed By: #### H EMOGC #### [facility] (DEFAULT) [address] [address] Mean Cell Hgb 29.2 pg Normal 25.9-33.9 [facility] Comment on above: Performed By: #### H EMOGC #### [facility] (DEFAULT) [address] [address] Mean Cell Hgb Conc 31.5 g/dL Normal 31.4-35.9 [facility] Comment on above: Performed By: #### H EMOGC #### [facility] (DEFAULT) [address] [address] Platelet mean volume (Bld) [Entitic vol] 9.8 fL Normal 8.5-12.2 [facility] Comment on above: Performed By: #### H EMOGC #### [facility] (DEFAULT) [address] [address] Platelets (Bld) [#/Vol] 379 10*3/uL Normal 150-393 [facility] Comment on above: Performed By: #### H EMOGC #### [facility] (DEFAULT) [address] [address] RBC (Bld) [#/Vol] 4.01 10*6/uL Normal 3.91-5.04 [facility] Comment on above: Performed By: #### H EMOGC #### [facility] (DEFAULT) [address] [place] [address] RBC Distribution 13.2 % Normal 10.8-14.9 [facility] Comment on above: Performed By: #### [facility] [place] #### [facility] (DEFAULT) [address] [place] [address] WBC (Bld) [#/Vol] 11.95 10*3/uL High 3.99-11.19 [facility] Comment on above: Performed By: #### [facility] [place] #### [facility] (DEFAULT) [address] [place] [address] CHEM 7 (LYTES,BUN,CREA,GLUC) on 01-27-2025 Anion gap [Moles/Vol] 12 mmol/L 7 - 17 mmol/L [facility] Chloride [Moles/Vol] 105 mmol/L 98 - 10 8 mmol/L [facility] CO2 [Moles/Vol] 23 mmol/L 21 - 31 mmol/L [facility] Creatinine [Mass/Vol] 0.85 mg/dL 0.50 - 1.20 mg/dL [facility] eGFR, CKD-EPI, Female 70 - PINF [facility] Comment on above: Reported eGFR is bas ed on the CKD-EPI 2020 equation using creatinine, age, and sex. Glucose [Mass/Vol] 84 mg/dL 70 - 179 mg/dL [facility] Osmolality Calc [Osmolality] 284 [facility] Potassium [Moles/Vol] 4 mmol/L 3.5 - 5.0 mmol/L [facility] Sodium [Moles/Vol] 136 mmol/L 135 - 145 mmol/L [facility] Urea nitrogen [Mass/Vol] 12 mg/dL 7 - 25 mg/dL [facility] Urea nitrogen/Creatinine [Mass ratio] 14 mg/mg [facility] Anion gap [Moles/Vol] 12 mmol/L Normal 7-17 [facility] Comment on above: Performed By: #### [facility] [place] #### [facility] (DEFAULT) [address] [address] Chloride [Moles/Vol] 105 mmol/L Normal 98-108 [facility] Comment on above: Performed By: #### H EMO #### [facility] (DEFAULT) [address] [address] CO2 [Moles/Vol] 23 mmol/L Normal 21-31 [facility] Comment on above: Performed By: #### H EMOGC #### [facility] (DEFAULT) [address] [address] Creatinine [Mass/Vol] 0.85 mg/dL Normal 0.50-1.20 [facility] Comment on above: Performed By: #### [facility] [place] #### [facility] (DEFAULT) [address] [address] GFR/1.73 sq M.predicted among non-blacks MDRD (S/P/Bld) [Vol rate/Area] 71 mL/min/{1.73_m2} Normal >=60 [facility] Comment on above: Result Comment: Repo rted eGFR is based on the CKD-EPI 2020 equation using creatinine, age, and sex. Performed By: #### [facility] [place] #### [facility] (DEFAULT) [address] [address] Glucose [Mass/Vol] 84 mg/dL Normal Nonfastin g : 70-179 mg/dL; Fastin-99 [facility] Comment on above: Performed By: #### H EMO #### [facility] (DEFAULT) [address] [address] Osmolality [Osmolality] 284 mosm/kg Normal 278-305 [facility] Comment on above: Performed By: #### H EMOGC #### [facility] (DEFAULT) [address] [address] Potassium [Moles/Vol] 4.0 mmol/L Normal 3.5-5.0 [facility] Comment on above: Performed By: #### H EMOGC #### [facility] (DEFAULT) [address] [place] [address] Sodium [Moles/Vol] 136 mmol/L Normal 135-145 [facility] Comment on above: Performed By: #### H EMOGC #### [facility] (DEFAULT) [address] [place] [address] Urea nitrogen [Mass/Vol] 12 mg/dL Normal 7-25 [facility] Comment on above: Performed By: #### H EMO #### [facility] (DEFAULT) [address] [place] [address] Urea nitrogen/Creatinine [Mass ratio] 14 mg/mg Normal [facility] Comment on above: Performed By: #### H EMO #### [facility] (DEFAULT) [address] [place] [address] MAGNESIUMon 01-27-2025 Magnesium [Mass/Vol] 2.1 mg/dL 1.6 - 2 .6 mg/dL [facility] Magnesium [Mass/Vol] 2.1 mg/dL Normal 1.6-2.6 [facility] Comment on above: Performed By: #### H EMO #### [facility] (DEFAULT) [address] [place] [address] No Panel Informationon 01-27 Interpretation and review of laboratory results Normal [facility] PHOSPHATE, INORGANICon 01-27 Phosphate [Mass/Vol] 3.5 mg/dL 2.2 - 4 .6 mg/dL [facility] Phosphorous 3.5 mg/dL Normal 2.2-4.6 [facility] Comment on above: Performed By: #### H EMO #### [facility] (DEFAULT) [address] [place] [address] XR ABDOMEN 1 VIEW PORTABLEon 01-27-2025 XR [...] emphysema. IMPRESSION: Unchanged small bowel ileus. Normal [facility] XR Abdomen Single viewon IMPRESSION: Unchanged small [...] emphysema. IMPRESSION IMPRESSION: Unchanged small bowel ileus. [facility] Radiology Study observation (narrative) [facility] XR Abdomen Single viewOrdere d By: Maria Victoria Vaca on 01-27-2025 [facility] Work Phone: CARDIAC RHYTHMon 01-26-2025 [facility] CBC,PLATELETSon 01-26-2025 Erythrocyte distribution width (RBC) [Ratio] 12.8 % 10.8 - 14.9 % [facility] Hematocrit (Bld) [Volume fraction] 39.2 % 34.9 - 44.3 % [facility] Hemoglobin (Bld) [Mass/Vol] 12.6 g/dL 11.4 - 15.2 g/dL [facility] Interpretation and review of laboratory results Abnormal [facility] MCH (RBC) [Entitic mass] 29.2 pg 25.9 - 33.9 pg [facility] MCHC (RBC) [Mass/Vol] 32.1 g/dL 31.4 - 35.9 g/dL [facility] MCV (RBC) [Entitic vol] 91 fL 79.6 - 97.7 fL [facility] Platelet mean volume (Bld) [Entitic vol] 9.2 fL 8.5 - 12.2 fL [facility] Platelets (Bld) [#/Vol] 355 10*3/uL 150 - 393 K/uL [facility] RBC (Bld) [#/Vol] 4.31 10*6/uL [facility] WBC (Bld) [#/Vol] 11.52 10*3/uL High 3.99 - 11.19 K/uL [facility] Hematocrit (Bld) [Volume fraction] 39.2 % Normal 34.9-44.3 [facility] Comment on above: Performed By: #### MILAGRO HUNT, ANITAM7 #### [facility] (DEFAULT) [address] [place] [address] Hemoglobin (Bld) [Mass/Vol] 12.6 g/dL Normal 11.4-15.2 [facility] Comment on above: Performed By: #### MILAGRO HUNT, ANITAM7 #### [facility] (DEFAULT) [address] [place] [address] MCV (RBC) [Entitic vol] 91.0 fL Normal 79.6-97.7 [facility] Comment on above: Performed By: #### M POORNIMA IPB, CHM7 #### [facility] (DEFAULT) [address] [address] Mean Cell Hgb 29.2 pg Normal 25.9-33.9 [facility] Comment on above: Performed By: #### M POORNIMA, IPB, CHM7 #### [facility] (DEFAULT) [address] [address] Mean Cell Hgb Conc 32.1 g/dL Normal 31.4-35.9 [facility] Comment on above: Performed By: #### Miracle NOGUERA IPB, CHM7 #### [facility] (DEFAULT) [address] [address] Platelet mean volume (Bld) [Entitic vol] 9.2 fL Normal 8.5-12.2 [facility] Comment on above: Performed By: #### Miracle NOGUERA, IPB, CHM7 #### [facility] (DEFAULT) [address] [address] Platelets (Bld) [#/Vol] 355 10*3/uL Normal 150-393 [facility] Comment on above: Performed By: #### M POORNIMA, IPB, CHM7 #### [facility] (DEFAULT) [address] [address] RBC (Bld) [#/Vol] 4.31 10*6/uL Normal 3.91-5.04 [facility] Comment on above: Performed By: #### M GO, IPB, CHM7 #### [facility] (DEFAULT) [address] [address] RBC Distribution 12.8 % Normal 10.8-14.9 [facility] Comment on above: Performed By: #### M GO, IPB, CHM7 #### [facility] (DEFAULT) [address] [address] [address] WBC (Bld) [#/Vol] 11.52 10*3/uL High 3.99-11.19 [facility] Comment on above: Performed By: #### MILAGRO HUNT CHM7 #### [facility] (DEFAULT) [address] [place], [place] [id number] CHEM 7 (LYTES,BUN,CREA,GLUC) on 01-26-2025 Anion gap [Moles/Vol] 9 mmol/L 7 - 17 mmol/L [facility] Chloride [Moles/Vol] 105 mmol/L 98 - 10 8 mmol/L [facility] CO2 [Moles/Vol] 27 mmol/L 21 - 31 mmol/L [facility] Creatinine [Mass/Vol] 0.53 mg/dL 0.50 - 1.20 mg/dL [facility] eGFR, CKD-EPI, Female - PINF [facility] Comment on above: Reported eGFR is bas ed on the CKD-EPI 2020 equation using creatinine, age, and sex. Glucose [Mass/Vol] 109 mg/dL 70 - 179 mg/dL [facility] Osmolality Calc [Osmolality] 287 [facility] Potassium [Moles/Vol] 4.3 mmol/L 3.5 - 5.0 mmol/L [facility] Sodium [Moles/Vol] 137 mmol/L 135 - 145 mmol/L [facility] Urea nitrogen [Mass/Vol] 9 mg/dL 7 - 25 mg/dL [facility] Urea nitrogen/Creatinine [Mass ratio] 17 mg/mg [facility] Anion gap [Moles/Vol] 9 mmol/L Normal 7-17 [facility] Comment on above: Performed By: #### MILAGRO HUNT CHM7 #### [facility] (DEFAULT) [address] [place] [address] Chloride [Moles/Vol] 105 mmol/L Normal 98-108 [facility] Comment on above: Performed By: #### MILAGRO HUNT CHM7 #### [facility] (DEFAULT) [address] [place] [address] CO2 [Moles/Vol] 27 mmol/L Normal 21-31 [facility] Comment on above: Performed By: #### MILAGRO HUNT CHM7 #### [facility] (DEFAULT) [address] [place] [address] Creatinine [Mass/Vol] 0.53 mg/dL Normal 0.50-1.20 [facility] Comment on above: Performed By: #### MILAGRO HUNT CHM7 #### [facility] (DEFAULT) [address] [place] [address] eGFR, CKD-EPI, Female > Normal >=60 [facility] Comment on above: Result Comment: Repo rted eGFR is based on the CKD-EPI 2020 equation using creatinine, age, and sex. Performed By: #### MILAGRO HUNT CHM7 #### [facility] (DEFAULT) [address] [place] [address] Glucose [Mass/Vol] 109 mg/dL Normal Nonfastin g : 70-179 mg/dL; Fastin-99 [facility] Comment on above: Performed By: #### MILAGRO HUNT CHM7 #### [facility] (DEFAULT) [address] [place] [address] Osmolality [Osmolality] 287 mosm/kg Normal 278-305 [facility] Comment on above: Performed By: #### MILAGRO HUNT CHM7 #### [facility] (DEFAULT) [address] [place] [address] Potassium [Moles/Vol] 4.3 mmol/L Normal 3.5-5.0 [facility] Comment on above: Performed By: #### MILAGRO HUNT CHM7 #### [facility] (DEFAULT) [address] [place] [address] Sodium [Moles/Vol] 137 mmol/L Normal 135-145 [facility] Comment on above: Performed By: #### MILAGRO HUNT CHM7 #### [facility] (DEFAULT) [address] [place] [address] Urea nitrogen [Mass/Vol] 9 mg/dL Normal 7-25 [facility] Comment on above: Performed By: #### MILAGRO HUNT, CHM7 #### [facility] (DEFAULT) [address] [place] [address] Urea nitrogen/Creatinine [Mass ratio] 17 mg/mg Normal [facility] Comment on above: Performed By: #### MILAGRO HUNT, CHM7 #### [facility] (DEFAULT) [address] [place] [address] MAGNESIUMon 01-26-2025 Magnesium [Mass/Vol] 2.2 mg/dL 1.6 - 2 .6 mg/dL [facility] Magnesium [Mass/Vol] 2.2 mg/dL Normal 1.6-2.6 [facility] Comment on above: Performed By: #### MILAGRO HUNT CHMNegro #### [facility] (DEFAULT) [address] [place] [address] No Panel Informationon 01-26 Interpretation and review of laboratory results Normal [facility] PHOSPHATE, INORGANICon 01-26 Phosphate [Mass/Vol] 2.6 mg/dL 2.2 - 4 .6 mg/dL [facility] Phosphorous 2.6 mg/dL Normal 2.2-4.6 [facility] Comment on above: Performed By: #### MILAGRO HUNT, CHM7 #### [facility] (DEFAULT) [address] [place] [address] CBC,PLATELETSon 01-25-2025 Erythrocyte distribution width (RBC) [Ratio] 12.7 % 10.8 - 14.9 % [facility] Hematocrit (Bld) [Volume fraction] 43.3 % 34.9 - 44.3 % [facility] Hemoglobin (Bld) [Mass/Vol] 14 g/dL 11.4 - 15.2 g/dL [facility] Interpretation and review of laboratory results Normal [facility] MCH (RBC) [Entitic mass] 29.3 pg 25.9 - 33.9 pg [facility] MCHC (RBC) [Mass/Vol] 32.3 g/dL 31.4 - 35.9 g/dL [facility] MCV (RBC) [Entitic vol] 90.6 fL 79.6 - 97.7 fL [facility] Platelet mean volume (Bld) [Entitic vol] 9.5 fL 8.5 - 12.2 fL [facility] Platelets (Bld) [#/Vol] 330 10*3/uL 150 - 393 K/uL [facility] RBC (Bld) [#/Vol] 4.78 10*6/uL [facility] WBC (Bld) [#/Vol] 10.65 10*3/uL 3.99 - 11.19 K/uL [facility] Hematocrit (Bld) [Volume fraction] 43.3 % Normal 34.9-44.3 [facility] Comment on above: Performed By: #### [facility] #### [facility] (DEFAULT) [address] [address] Hemoglobin (Bld) [Mass/Vol] 14.0 g/dL Normal 11.4-15.2 [facility] Comment on above: Performed By: #### [facility] #### [facility] (DEFAULT) [address] [address] MCV (RBC) [Entitic vol] 90.6 fL Normal 79.6-97.7 [facility] Comment on above: Performed By: #### [facility] #### [facility] (DEFAULT) [address] [address] Mean Cell Hgb 29.3 pg Normal 25.9-33.9 [facility] Comment on above: Performed By: #### [facility] #### [facility] (DEFAULT) [address] [place] [address] Mean Cell Hgb Conc 32.3 g/dL Normal 31.4-35.9 [facility] Comment on above: Performed By: #### H EMOGC #### [facility] (DEFAULT) [address] [place] [address] Platelet mean volume (Bld) [Entitic vol] 9.5 fL Normal 8.5-12.2 [facility] Comment on above: Performed By: #### H EMOGC #### [facility] (DEFAULT) [address] [place] [address] Platelets (Bld) [#/Vol] 330 10*3/uL Normal 150-393 [facility] Comment on above: Performed By: #### H EMOGC #### [facility] (DEFAULT) [address] [place] [address] RBC (Bld) [#/Vol] 4.78 10*6/uL Normal 3.91-5.04 [facility] Comment on above: Performed By: #### H EMOGC #### [facility] (DEFAULT) [address] [place] [address] RBC Distribution 12.7 % Normal 10.8-14.9 [facility] Comment on above: Performed By: #### H EMOGC #### [facility] (DEFAULT) [address] [place] [address] WBC (Bld) [#/Vol] 10.65 10*3/uL Normal 3.99-11.19 [facility] Comment on above: Performed By: #### H EMOGC #### [facility] (DEFAULT) [address] [address] CHEM 7 (LYTES,BUN,CREA,GLUC) Ordered By: Randi Bonner on 01-25-2025 Anion gap [Moles/Vol] 13 mmol/L 7 - 17 mmol/L [facility] Chloride [Moles/Vol] 105 mmol/L 98 - 10 8 mmol/L [facility] CO2 [Moles/Vol] 26 mmol/L 21 - 31 mmol/L [facility] Creatinine [Mass/Vol] 0.76 mg/dL 0.50 - 1.20 mg/dL [facility] eGFR, CKD-EPI, Female 81 - PINF [facility] Comment on above: Reported eGFR is bas ed on the CKD-EPI 2020 equation using creatinine, age, and sex. Glucose [Mass/Vol] 94 mg/dL 70 - 179 mg/dL [facility] Osmolality Calc [Osmolality] 293 [facility] Potassium [Moles/Vol] 3.7 mmol/L 3.5 - 5.0 mmol/L [facility] Sodium [Moles/Vol] 140 mmol/L 135 - 145 mmol/L [facility] Urea nitrogen [Mass/Vol] 16 mg/dL 7 - 25 mg/dL [facility] Urea nitrogen/Creatinine [Mass ratio] 21 mg/mg [facility] CHEM 7 (LYTES,BUN,CREA,GLUC) on 01-25-2025 Anion gap [Moles/Vol] 13 mmol/L Normal 7-17 [facility] Comment on above: Performed By: #### MILAGRO HUNT, CHM7 #### [facility] (DEFAULT) [address] [place] [address] Chloride [Moles/Vol] 105 mmol/L Normal 98-108 [facility] Comment on above: Performed By: #### MILAGRO HUNT, CHM7 #### [facility] (DEFAULT) [address] [place] [address] CO2 [Moles/Vol] 26 mmol/L Normal 21-31 [facility] Comment on above: Performed By: #### MILAGRO HUNT, CHM7 #### [facility] (DEFAULT) [address] [place] [address] Creatinine [Mass/Vol] 0.76 mg/dL Normal 0.50-1.20 [facility] Comment on above: Performed By: #### MILAGRO HUNT CHM7 #### [facility] (DEFAULT) [address] [place] [address] GFR/1.73 sq M.predicted among non-blacks MDRD (S/P/Bld) [Vol rate/Area] 82 mL/min/{1.73_m2} Normal >=60 [facility] Comment on above: Result Comment: Repo rted eGFR is based on the CKD-EPI 2020 equation using creatinine, age, and sex. Performed By: #### MILAGRO HUNT CHM7 #### [facility] (DEFAULT) [address] [place] [address] Glucose [Mass/Vol] 94 mg/dL Normal Nonfastin g : 70-179 mg/dL; Fastin-99 [facility] Comment on above: Performed By: #### MILAGRO HUNT CHM7 #### [facility] (DEFAULT) [address] [place] [address] Osmolality [Osmolality] 293 mosm/kg Normal 278-305 [facility] Comment on above: Performed By: #### MILAGRO HUNT CHMiracle7 #### [facility] (DEFAULT) [address] [place] [address] Potassium [Moles/Vol] 3.7 mmol/L Normal 3.5-5.0 [facility] Comment on above: Performed By: #### MILAGRO HUNT CHM7 #### [facility] (DEFAULT) [address] [place] [address] Sodium [Moles/Vol] 140 mmol/L Normal 135-145 [facility] Comment on above: Performed By: #### MILAGRO HUNT CHMiracle7 #### [facility] (DEFAULT) [address] [place] [address] Urea nitrogen [Mass/Vol] 16 mg/dL Normal 7-25 [facility] Comment on above: Performed By: #### MILAGRO HUNT CHM7 #### [facility] (DEFAULT) [address] [place] [address] Urea nitrogen/Creatinine [Mass ratio] 21 mg/mg Normal [facility] Comment on above: Performed By: #### MILAGRO HUNT CHM7 #### [facility] (DEFAULT) [address] [place] [address] MAGNESIUMon 01-25-2025 Magnesium [Mass/Vol] 1.9 mg/dL 1.6 - 2 .6 mg/dL [facility] Magnesium [Mass/Vol] 1.9 mg/dL Normal 1.6-2.6 [facility] Comment on above: Performed By: #### MILAGRO HUNT CHM7 #### [facility] (DEFAULT) [address] [place] [address] No Panel Informationon 01-25 Interpretation and review of laboratory results Normal [facility] PHOSPHATE, INORGANICon 01-25 Phosphate [Mass/Vol] 2.8 mg/dL 2.2 - 4 .6 mg/dL [facility] Phosphorous 2.8 mg/dL Normal 2.2-4.6 [facility] Comment on above: Performed By: #### MILAGRO HUNT CHM7 #### [facility] (DEFAULT) [address] [place] [address] XR ABDOMEN 1 VIEW PORTABLEon 01-25-2025 XR [...] distention of small bowel, suggesting ileus. Normal [facility] XR Abdomen Single viewon IMPRESSION: Mild diffuse [...] gaseous distention of small bowel, suggesting ileus. [facility] Radiology Study observation (narrative) [facility] XR Abdomen Single viewOrdere d By: Cali Suarez on 01-25-2025 [facility] Work Phone: CBC,PLATELETSon 01-24-2025 Erythrocyte distribution width (RBC) [Ratio] 12.5 % 10.8 - 14.9 % [facility] Hematocrit (Bld) [Volume fraction] 36.5 % 34.9 - 44.3 % [facility] Hemoglobin (Bld) [Mass/Vol] 11.9 g/dL 11.4 - 15.2 g/dL [facility] Interpretation and review of laboratory results Normal [facility] MCH (RBC) [Entitic mass] 29.5 pg 25.9 - 33.9 pg [facility] MCHC (RBC) [Mass/Vol] 32.6 g/dL 31.4 - 35.9 g/dL [facility] MCV (RBC) [Entitic vol] 90.6 fL 79.6 - 97.7 fL [facility] Platelet mean volume (Bld) [Entitic vol] 10.1 fL 8.5 - 12.2 fL [facility] Platelets (Bld) [#/Vol] 279 10*3/uL 150 - 393 K/uL [facility] RBC (Bld) [#/Vol] 4.03 10*6/uL [facility] WBC (Bld) [#/Vol] 11.1 10*3/uL 3.99 - 11.19 K/uL [facility] Hematocrit (Bld) [Volume fraction] 36.5 % Normal 34.9-44.3 [facility] Comment on above: Performed By: #### MILAGRO HUNT CHM7 #### [facility] (DEFAULT) [address] [place] [address] Hemoglobin (Bld) [Mass/Vol] 11.9 g/dL Normal 11.4-15.2 [facility] Comment on above: Performed By: #### MILAGRO HUNT CHM7 #### [facility] (DEFAULT) [address] [place] [address] MCV (RBC) [Entitic vol] 90.6 fL Normal 79.6-97.7 [facility] Comment on above: Performed By: #### MILAGRO HUNT, CHM7 #### [facility] (DEFAULT) [address] [place] [address] Mean Cell Hgb 29.5 pg Normal 25.9-33.9 [facility] Comment on above: Performed By: #### MILAGRO HUNT, CHM7 #### [facility] (DEFAULT) [address] [place] [address] Mean Cell Hgb Conc 32.6 g/dL Normal 31.4-35.9 [facility] Comment on above: Performed By: #### MILAGRO HUNT, CHM7 #### [facility] (DEFAULT) [address] [place] [address] Platelet mean volume (Bld) [Entitic vol] 10.1 fL Normal 8.5-12.2 [facility] Comment on above: Performed By: #### MILAGRO HUNT, CHM7 #### [facility] (DEFAULT) [address] [place] [address] Platelets (Bld) [#/Vol] 279 10*3/uL Normal 150-393 [facility] Comment on above: Performed By: #### MILAGRO HUNT, CHM7 #### [facility] (DEFAULT) [address] [place] [address] RBC (Bld) [#/Vol] 4.03 10*6/uL Normal 3.91-5.04 [facility] Comment on above: Performed By: #### MILAGRO HUNT, CHM7 #### [facility] (DEFAULT) [address] [place] [address]99 RBC Distribution 12.5 % Normal 10.8-14.9 [facility] Comment on above: Performed By: #### MILAGRO HUNT, CHM7 #### [facility] (DEFAULT) [address] [place] [address] WBC (Bld) [#/Vol] 11.10 10*3/uL Normal 3.99-11.19 [facility] Comment on above: Performed By: #### MILAGRO HUNT, CHM7 #### [facility] (DEFAULT) [address] [place] [address] CHEM 7 (LYTES,BUN,CREA,GLUC) on 01-24-2025 Anion gap [Moles/Vol] 13 mmol/L 7 - 17 mmol/L [facility] Chloride [Moles/Vol] 102 mmol/L 98 - 10 8 mmol/L [facility] CO2 [Moles/Vol] 23 mmol/L 21 - 31 mmol/L [facility] Creatinine [Mass/Vol] 0.78 mg/dL 0.50 - 1.20 mg/dL [facility] eGFR, CKD-EPI, Female 79 - PINF [facility] Comment on above: Reported eGFR is bas ed on the CKD-EPI 2020 equation using creatinine, age, and sex. Glucose [Mass/Vol] 109 mg/dL 70 - 179 mg/dL [facility] Interpretation and review of laboratory results Abnormal [facility] Osmolality Calc [Osmolality] 283 [facility] Potassium [Moles/Vol] 5.3 mmol/L High 3.5 - 5.0 mmol/L [facility] Comment on above: Specimen slightly he molyzed. Potassium results may be falsey elevated by more than 0.5 mmol/L. Consider recollection. Sodium [Moles/Vol] 133 mmol/L Low 135 - 145 mmol/L [facility] Urea nitrogen [Mass/Vol] 13 mg/dL 7 - 25 mg/dL [facility] Urea nitrogen/Creatinine [Mass ratio] 17 mg/mg [facility] Anion gap [Moles/Vol] 13 mmol/L Normal 7-17 [facility] Comment on above: Performed By: #### MILAGRO HUNT CHM7 #### [facility] (DEFAULT) [address] [place] [address] Chloride [Moles/Vol] 102 mmol/L Normal 98-108 [facility] Comment on above: Performed By: #### MILAGRO HUNT CHM7 #### [facility] (DEFAULT) [address] [place] [address] CO2 [Moles/Vol] 23 mmol/L Normal 21-31 [facility] Comment on above: Performed By: #### MILAGRO HUNT CHM7 #### [facility] (DEFAULT) [address] [place] [address] Creatinine [Mass/Vol] 0.78 mg/dL Normal 0.50-1.20 [facility] Comment on above: Performed By: #### MILAGRO HUNT CHMiracle7 #### [facility] (DEFAULT) [address] [place] [address] GFR/1.73 sq M.predicted among non-blacks MDRD (S/P/Bld) [Vol rate/Area] 79 mL/min/{1.73_m2} Normal >=60 [facility] Comment on above: Result Comment: Repo rted eGFR is based on the CKD-EPI 2020 equation using creatinine, age, and sex. Performed By: #### MILAGRO HUNT CHM7 #### [facility] (DEFAULT) [address] [place] [address] Glucose [Mass/Vol] 109 mg/dL Normal Nonfastin g : 70-179 mg/dL; Fastin-99 [facility] Comment on above: Performed By: #### MILAGRO HUNT CHM7 #### [facility] (DEFAULT) [address] [place] [address] Osmolality [Osmolality] 283 mosm/kg Normal 278-305 [facility] Comment on above: Performed By: #### MILAGRO HUNT CHM7 #### [facility] (DEFAULT) [address] [place] [address] Potassium [Moles/Vol] 5.3 mmol/L High 3.5-5.0 [facility] Comment on above: Result Comment: Spec imen slightly hemolyzed. Potassium results may be falsey elevated by more than 0.5 mmol/L. Consider recollection. Performed By: #### MILAGRO HUNT CHMNegro #### [facility] (DEFAULT) [address] [place] [address] Sodium [Moles/Vol] 133 mmol/L Low 135-145 [facility] Comment on above: Performed By: #### MILAGRO HUNT CHM7 #### [facility] (DEFAULT) [address] [place] [address]25 Urea nitrogen [Mass/Vol] 13 mg/dL Normal 7-25 [facility] Comment on above: Performed By: #### MILAGRO HUNT CHM7 #### [facility] (DEFAULT) [address] [place] [address] Urea nitrogen/Creatinine [Mass ratio] 17 mg/mg Normal [facility] Comment on above: Performed By: #### MILAGRO HUNT CHM7 #### [facility] (DEFAULT) [address] [place] [address] MAGNESIUMon 01-24-2025 Magnesium [Mass/Vol] 1.8 mg/dL 1.6 - 2 .6 mg/dL [facility] Magnesium [Mass/Vol] 1.8 mg/dL Normal 1.6-2.6 [facility] Comment on above: Performed By: #### MILAGRO HUNT CHM7 #### [facility] (DEFAULT) [address] [place] [address] No Panel Informationon 01-24 Interpretation and review of laboratory results Normal [facility] PHOSPHATE, INORGANICon 01-24 Phosphate [Mass/Vol] 4.1 mg/dL 2.2 - 4 .6 mg/dL [facility] Phosphorous 4.1 mg/dL Normal 2.2-4.6 [facility] Comment on above: Performed By: #### MILAGRO HUNT CHM7 #### [facility] (DEFAULT) [address] [place] [address] ABORH TYPE RECONFIRMATIONon 01-23-2025 ABO/RH(D) TYPE Positive [facility] ABO/RH(D) TYPE Positive Normal [facility] Comment on above: Performed By: #### MILAGRO HUNT CHM7 #### [facility] (DEFAULT) [address] [place] [address] CONTINUOUS CARDIAC MONITORIN G STRIPon 01-23-2025 [facility] CONTINUOUS CARDIAC MONITORIN G STRIPOrdered By: Unassigned Pacs on 01-23-2025 [facility] Work Phone: [id number] PROMOTER METHYLATION, A CCESSIONINGon 01-23-2025 AP BLOCK/SLIDE ID [id number] [facility] Comment on above: Performed By: #### M GO, IPB, CHM7 #### [facility] (DEFAULT) [address] [place] [address] AP SLIDE SCANNED [facility] Comment on above: Performed By: #### M GO, IPB, CHM7 #### [facility] (DEFAULT) [address] [place] [address] APCP HISTOLOGY COMMENTS [facility] Comment on above: Performed By: #### M GO, IPB, CHM7 #### [facility] (DEFAULT) [address] [place] [address] SURG PATH REQUESTon 01-24-20 Case Report [facility] Comment on above: Result Comment: Surg ical Pathology Report Case: [id number] Authorizing Provider: AFRICA Thomas Collected: 01/23/2025 10:43 AM [facility] Received: 01/23/2025 11:35 AM Pathologist: AFRICA Mercado Specimen: SURG PATH, Right colon and terminal ileum Performed By: #### S URGP #### [facility] (DEFAULT) [address] [place] [address] Clinical History Malignant neoplasm o f ascending colon. Medical History: Malignant neoplasm of colon. Essential hypertension, benign. Hyperlipidemia. Arthritis. [facility] Comment on above: Performed By: #### S URGP #### [facility] (DEFAULT) [address] [place] [address] Gross Description [facility] Comment on above: Result Comment: The specimen [...] possible linear spiculation into pericolonic adipose A6-A8, human resources representative mass A9, random uninvolved large bowel [...] to mass, quadrisected Lab Use Only: JobID [id number] Performed By: #### S URGP #### [facility] (DEFAULT) [address] [place] [address] Microscopic Description Normal [facility] Comment on above: Result Comment: A mi croscopic examination was performed. All controls show appropriate reactivity. All immunohistochemistry (IHC), in situ hybridization (SHAE), and histochemical tests were developed by and are performed at the [facility] Clinical Laboratory, Histology and IHC Lab, [address] [place] [address]. All Immunofluorescent (IF) tests were developed by and are performed at the [facility], Renal Division, [address] [place] [address]. All tests reported here, except for PD-L1, have not been cleared by or approved by the [place] Food and Drug Administration (FDA). The laboratory is regulated under CLIA as qualified to perform high-complexity testing. The tests are used for clinical purposes. They should not be regarded as investigational or for research. Performed By: #### S URGP #### [facility] (DEFAULT) [address] [place] [address] Pathologic Diagnosis Normal [facility] Comment on above: Result Comment: A. R [...] of MLH1 methylation suggests the possibility of Gabriel syndrome, and sequencing and/or large deletion/duplication testing [...] EDT Performed By: #### S URGP #### [facility] (DEFAULT) [address] [place] [address] Professional Interpretation Performed at: [facility] Comment on above: Result Comment: [facility] For Immediate Release to Patient's MyChart? Yes [address] [place] [address] Performed By: #### S URGP #### [facility] (DEFAULT) [address] [place] [address]329 Synoptic Checklist Normal [facility] Comment on above: Result Comment: COLO [...] pN2a Performed By: #### S URGP #### [facility] (DEFAULT) [address] [place] [address] 02033 CBC AND ELECTRONIC DIFFon Basophils (Bld) [#/Vol] 0.06 10*3/uL 0.00 - 0.15 K/uL [facility] Basophils/100 WBC (Bld) 0.8 % [facility] Differential cell count method Nom (Bld) Electronic Differential O [facility] Eosinophils (Bld) [#/Vol] 0.33 10*3/uL 0.00 - 0.42 K/uL [facility] Eosinophils/100 WBC (Bld) 4.2 % [facility] Erythrocyte distribution width (RBC) [Ratio] 12.8 % 10.8 - 14.9 % [facility] Hematocrit (Bld) [Volume fraction] 43.6 % 34.9 - 44.3 % [facility] Hemoglobin (Bld) [Mass/Vol] 13.8 g/dL 11.4 - 15.2 g/dL [facility] Immature granulocytes (Bld) [#/Vol] K/uL NINF - 0.08 K/uL [facility] Immature granulocytes/100 WBC (Bld) 0.4 % [facility] Lymphocytes (Bld) [#/Vol] 1.98 10*3/uL 1.16 - 3.51 K/uL [facility] Lymphocytes/100 WBC (Bld) 25.4 % [facility] MCH (RBC) [Entitic mass] 29.4 pg 25.9 - 33.9 pg [facility] MCHC (RBC) [Mass/Vol] 31.7 g/dL 31.4 - 35.9 g/dL [facility] MCV (RBC) [Entitic vol] 93 fL 79.6 - 97.7 fL [facility] Monocytes (Bld) [#/Vol] 0.58 10*3/uL 0.22 - 0.87 K/uL [facility] Monocytes/100 WBC (Bld) 7.4 % [facility] Neutrophils (Bld) [#/Vol] 4.83 10*3/uL 1.64 - 7.28 K/uL [facility] Nucleated RBC/100 WBC (Bld) [Ratio] 0 % NINF [facility] Platelet mean volume (Bld) [Entitic vol] 10.2 fL 8.5 - 12.2 fL [facility] Platelets (Bld) [#/Vol] 375 10*3/uL 150 - 393 K/uL [facility] RBC (Bld) [#/Vol] 4.69 10*6/uL [facility] Segmented neutrophils/100 WBC (Bld) 61.8 % [facility] WBC (Bld) [#/Vol] 7.81 10*3/uL 3.99 - 11.19 K/uL [facility] Basophils (Bld) [#/Vol] 0.06 10*3/uL Normal 0.00-0.15 [facility] Comment on above: Performed By: #### L [id number] #### [facility] (DEFAULT) [address] [place] [address] 58042 Basophils/100 WBC (Bld) 0.8 % Normal [facility] Comment on above: Performed By: #### L [id number] #### [facility] (DEFAULT) [address] [place] [address] 69607 DIFF STATUS Electronic Differential Normal [facility] Comment on above: Performed By: #### L [id number] #### [facility] (DEFAULT) [address] [place] [address] 81603 Eosinophils (Bld) [#/Vol] 0.33 10*3/uL Normal 0.00-0.42 [facility] Comment on above: Performed By: #### L [id number] #### [facility] (DEFAULT) [address] [place] [address] 41594 Eosinophils/100 WBC (Bld) 4.2 % Normal [facility] Comment on above: Performed By: #### L [id number] #### [facility] (DEFAULT) [address] [place] [address] 37914 Hematocrit (Bld) [Volume fraction] 43.6 % Normal 34.9-44.3 [facility] Comment on above: Performed By: #### L [id number] #### [facility] (DEFAULT) [address] [place] [address] 74996 Hemoglobin (Bld) [Mass/Vol] 13.8 g/dL Normal 11.4-15.2 [facility] Comment on above: Performed By: #### L [id number] #### [facility] (DEFAULT) [address] [address] Immature Grans % 0.4 % Normal [facility] Comment on above: Performed By: #### L [id number] #### [facility] (DEFAULT) [address] [address] Immature Grans Absolute < Normal <=0.08 [facility] Comment on above: Performed By: #### L [id number] #### [facility] (DEFAULT) [address] [address] Lymphocytes (Bld) [#/Vol] 1.98 10*3/uL Normal 1.16-3.51 [facility] Comment on above: Performed By: #### L [id number] #### [facility] (DEFAULT) [address] [address] Lymphocytes/100 WBC (Bld) 25.4 % Normal [facility] Comment on above: Performed By: #### L [id number] #### [facility] (DEFAULT) [address] [address] MCV (RBC) [Entitic vol] 93.0 fL Normal 79.6-97.7 [facility] Comment on above: Performed By: #### L [id number] #### [facility] (DEFAULT) [address] [address] Mean Cell Hgb 29.4 pg Normal 25.9-33.9 [facility] Comment on above: Performed By: #### L [id number] #### [facility] (DEFAULT) [address] [address] Mean Cell Hgb Conc 31.7 g/dL Normal 31.4-35.9 [facility] Comment on above: Performed By: #### L [id number] #### [facility] (DEFAULT) [address] [address] Monocytes (Bld) [#/Vol] 0.58 10*3/uL Normal 0.22-0.87 [facility] Comment on above: Performed By: #### L [id number] #### [facility] (DEFAULT) [address] [place] [address]379 Monocytes/100 WBC (Bld) 7.4 % Normal [facility] Comment on above: Performed By: #### L [id number] #### [facility] (DEFAULT) [address] [place] [address] 63651 Nucleated RBC 0.0 /100 WBC Normal <=0.2 [facility] Comment on above: Performed By: #### L [id number] #### [facility] (DEFAULT) [address] [place] [address] 16373 Platelet mean volume (Bld) [Entitic vol] 10.2 fL Normal 8.5-12.2 [facility] Comment on above: Performed By: #### L [id number] #### [facility] (DEFAULT) [address] [place] [address] 10964 Platelets (Bld) [#/Vol] 375 10*3/uL Normal 150-393 [facility] Comment on above: Performed By: #### L [id number] #### [facility] (DEFAULT) [address] [place] [address] 22762 RBC (Bld) [#/Vol] 4.69 10*6/uL Normal 3.91-5.04 [facility] Comment on above: Performed By: #### L [id number] #### [facility] (DEFAULT) [address] [place] [address] 25882 RBC Distribution 12.8 % Normal 10.8-14.9 [facility] Comment on above: Performed By: #### L [id number] #### [facility] (DEFAULT) [address] [place] [address] 57954 Segs + Bands Auto 61.8 % Normal [facility] Comment on above: Performed By: #### L [id number] #### [facility] (DEFAULT) [address] [place] [address] Segs + Bands,Absolute Auto 4.83 K/uL Normal 1.64-7.28 [facility] Comment on above: Performed By: #### L [id number] #### [facility] (DEFAULT) [address] [place] [address] WBC (Bld) [#/Vol] 7.81 10*3/uL Normal 3.99-11.19 [facility] Comment on above: Performed By: #### L [id number] #### [facility] (DEFAULT) [address] [place] [address] COMPREHENSIVE METABOLIC PANE Anish 01-10-2025 Albumin [Mass/Vol] 4.2 g/dL 3.5 - 5.0 g/dL [facility] ALP [Catalytic activity/Vol] 55 U/L 32 - 126 U/L [facility] ALT [Catalytic activity/Vol] 16 U/L 9 - 48 U/L [facility] Anion gap [Moles/Vol] 14 mmol/L 7 - 17 mmol/L [facility] AST [Catalytic activity/Vol] 19 U/L 10 - 39 U/L [facility] Bilirubin [Mass/Vol] 0.4 mg/dL NINF - 1.5 mg/dL [facility] Calcium [Mass/Vol] 9.8 mg/dL 8.6 - 10. 5 mg/dL [facility] Chloride [Moles/Vol] 99 mmol/L 98 - 10 8 mmol/L [facility] CO2 [Moles/Vol] 30 mmol/L 21 - 31 mmol/L [facility] Creatinine [Mass/Vol] 0.68 mg/dL 0.50 - 1.20 mg/dL [facility] eGFR, CKD-EPI, Female - PINF [facility] Comment on above: Reported eGFR is bas ed on the CKD-EPI 2020 equation using creatinine, age, and sex. Glucose [Mass/Vol] 80 mg/dL 70 - 99 mg/dL [facility] Osmolality Calc [Osmolality] 292 [facility] Potassium [Moles/Vol] 4.3 mmol/L 3.5 - 5.0 mmol/L [facility] Protein [Mass/Vol] 7.4 g/dL 6.4 - 8.3 g/dL [facility] Sodium [Moles/Vol] 139 mmol/L 135 - 145 mmol/L [facility] Urea nitrogen [Mass/Vol] 17 mg/dL 7 - 25 mg/dL [facility] Urea nitrogen/Creatinine [Mass ratio] 25 mg/mg [facility] Albumin [Mass/Vol] 4.2 g/dL Normal 3.5-5.0 [facility] Comment on above: Performed By: #### M POORNIMA IPB, CHM7 #### [facility] (DEFAULT) [address] [place] [address] ALP [Catalytic activity/Vol] 55 U/L Normal 32-126 [facility] Comment on above: Performed By: #### M POORNIMA IPB, CHM7 #### [facility] (DEFAULT) [address] [place] [address] 24347 ALT [Catalytic activity/Vol] 16 U/L Normal 9-48 [facility] Comment on above: Performed By: #### M POORNIMA IPB, CHM7 #### [facility] (DEFAULT) [address] [place] [address] 01842 Anion gap [Moles/Vol] 14 mmol/L Normal 7-17 [facility] Comment on above: Performed By: #### M POORNIMA IPB, CHM7 #### [facility] (DEFAULT) [address] [place] [address] 40791 AST [Catalytic activity/Vol] 19 U/L Normal 10-39 [facility] Comment on above: Performed By: #### Miracle NOGUERA IPB, CHM7 #### [facility] (DEFAULT) [address] [place] [address]26 Bilirubin [Mass/Vol] 0.4 mg/dL Normal <1.5 [facility] Comment on above: Performed By: #### MILAGRO HUNT, CHM7 #### [facility] (DEFAULT) [address] [place] [address]13 Calcium [Mass/Vol] 9.8 mg/dL Normal 8.6-10.5 [facility] Comment on above: Performed By: #### MILAGRO HUNT, CHM7 #### [facility] (DEFAULT) [address] [place] [address] 93881 Chloride [Moles/Vol] 99 mmol/L Normal 98-108 [facility] Comment on above: Performed By: #### MILAGRO HUNT, CHM7 #### [facility] (DEFAULT) [address] [place] [address] 32721 CO2 [Moles/Vol] 30 mmol/L Normal 21-31 [facility] Comment on above: Performed By: #### MILAGRO HUNT, CHM7 #### [facility] (DEFAULT) [address] [place] [address] 15434 Creatinine [Mass/Vol] 0.68 mg/dL Normal 0.50-1.20 [facility] Comment on above: Performed By: #### MILAGRO HUNT, CHM7 #### [facility] (DEFAULT) [address] [place] [address] 88913 eGFR, CKD-EPI, Female > Normal >=60 [facility] Comment on above: Result Comment: Repo rted eGFR is based on the CKD-EPI 2020 equation using creatinine, age, and sex. Performed By: #### MILAGRO HUNT, CHM7 #### [facility] (DEFAULT) [address] [place] [address] 39704 Glucose [Mass/Vol] 80 mg/dL Normal 70-99 [facility] Comment on above: Performed By: #### MILAGRO HUNT, CHM7 #### [facility] (DEFAULT) [address] [place] [address] 14651 Osmolality [Osmolality] 292 mosm/kg Normal 278-305 [facility] Comment on above: Performed By: #### MILAGRO HUNT, CHM7 #### [facility] (DEFAULT) [address] [place] [address] 50011 Potassium [Moles/Vol] 4.3 mmol/L Normal 3.5-5.0 [facility] Comment on above: Performed By: #### MILAGRO HUNT, CHM7 #### [facility] (DEFAULT) [address] [place] [address] 66025 Protein [Mass/Vol] 7.4 g/dL Normal 6.4-8.3 [facility] Comment on above: Performed By: #### MILAGRO HUNT, CHM7 #### [facility] (DEFAULT) [address] [place] [address] 32991 Sodium [Moles/Vol] 139 mmol/L Normal 135-145 [facility] Comment on above: Performed By: #### MILAGRO HUNT, CHM7 #### [facility] (DEFAULT) [address] [place] [address] 82496 Urea nitrogen [Mass/Vol] 17 mg/dL Normal 7-25 [facility] Comment on above: Performed By: #### MILAGRO HUNT, CHM7 #### [facility] (DEFAULT) [address] [place] [address] 68116 Urea nitrogen/Creatinine [Mass ratio] 25 mg/mg Normal [facility] Comment on above: Performed By: #### MILAGRO HUNT, CHM7 #### [facility] (DEFAULT) [address] [place] [address] 66911 PREPARE TO TRANSFUSE OR RED BLOOD CELLSon 01-10-2025 [facility] PROTIME-INRon 01-10-2025 INR Coag (Bld) [Relative time] 0.9 {INR} 0.9 - 1.1 [facility] Interpretation and review of laboratory results Normal [facility] PT Coag (PPP) [Time] 12.3 s [facility] INR Coag (PPP) [Relative time] 0.9 {INR} Normal 0.9-1.1 [facility] Comment on above: Performed By: #### MILAGRO HUNT CHM7 #### [facility] (DEFAULT) [address] [place] [address] 31172 PT Coag (PPP) [Time] 12.3 s Normal 11.9-14.2 [facility] Comment on above: Performed By: #### MILAGRO HUNT CHM7 #### [facility] (DEFAULT) [address] [place] [address] 31723 PTTon 01-10-2025 aPTT Coag (PPP) [Time] 24.6 s [facility] Interpretation and review of laboratory results Normal [facility] aPTT Coag (Bld) [Time] 24.6 s Normal 24.0-34.3 [facility] Comment on above: Performed By: #### MILAGRO HUNT, LAURA #### [facility] (DEFAULT) [address] [place] [address] 41679 TYPE AND SCREEN - PREADMISSI ONon 01-10-2025 ABO/RH(D) TYPE Positive [facility] Specimen Expiration 02/09/2025 23:59 [facility] ABO/RH(D) TYPE Positive Normal [facility] Comment on above: Performed By: #### X MPO #### [facility] (DEFAULT) [address] [place] [address] 60670 Specimen Expiration 01/26/2025 23:59 Normal [facility] Comment on above: Performed By: #### X MPO #### [facility] (DEFAULT) [address] [place] [address] CHEST WITH CONTRASTon CT CHEST WITH [...] 3 mm. 2. No intrathoracic lymphadenopathy. Vivian yCr M.D. This report has been electronically signed [...] error, please notify the sender immediately at [phone] and permanently delete the original report and destroy any copies or printouts. Normal [facility] MRI ABDOMEN WITH AND WITHOUT CONTRASTon 01-02-2025 [...] mesenteric lymphadenopathy, suspicious for metastatic disease. Normal [facility] CREAT/GFRon 12-31-2024 Creatinine [Mass/Vol] 0.61 mg/dL 0.50 - 1.20 mg/dL [facility] GFR/1.73 sq M.predicted CKD-EPI (S/P/Bld) [Vol rate/Area] - PINF [facility] Comment on above: Reported eGFR is bas ed on the CKD-EPI 2020 equation using creatinine, age, and sex. Interpretation and review of laboratory results Normal [facility] Test performed at ad dress of the patient encounter. [facility] CBC + DIFFon 11-17-2024 Baso # 0.02 x10EE3/UL Normal 0.00 - 0.10 [facility] Comment on above: Performed By: #### 2 00076 #### [facility],[address] [place] [address] 85949 Basophils/100 WBC (Bld) 0.3 % Normal 0.0 - 2.0 [facility] Comment on above: Performed By: #### 2 57888 #### [facility],[address] [place] [address] 71576 CBC + DIFF Normal [facility] Comment on above: Result Comment: CBC- COMPLETE BLOOD COUNT Performed By: #### 2 63193 #### [facility],[address] [place] [address] 36249 EO # 0.29 x10EE3/UL Normal 0.00 - 0.50 [facility] Comment on above: Performed By: #### 2 75127 #### [facility],[address] [place] [address] 35618 Eosinophils/100 WBC (Bld) 4.3 % Normal 0.0 - 7.0 [facility] Comment on above: Performed By: #### 2 96653 #### [facility],[address] [place] [address] 63103 Erythrocyte distribution width (RBC) [Ratio] 13.0 % Normal 12.0 - 15.6 [facility] Comment on above: Performed By: #### 2 87357 #### [facility],[address] [place] [address] Hematocrit (Bld) [Volume fraction] 47.5 % High 34.0 - 46.0 [facility] Comment on above: Performed By: #### 2 89306 #### [facility],[address] [place] [address] Hemoglobin (Bld) [Mass/Vol] 15.8 g/dL Normal 12.0 - 16.0 [facility] Comment on above: Performed By: #### 2 15150 #### [facility],[address] [place] [address] Lymph # 1.93 x10EE3/UL Normal 0.80 - 2.80 [facility] Comment on above: Performed By: #### 2 59493 #### [place] [address] Lymphocytes/100 WBC (Bld) 28.9 % Normal 20.0 - 45.0 [facility] Comment on above: Performed By: #### 2 68371 #### [facility],[address] [place] [address] MANUAL DIFF N/A Normal [facility] Comment on above: Performed By: #### 2 00738 #### [facility],[address] [place], [place] [address] MCH (RBC) [Entitic mass] 30 pg Normal 27 - 33 [facility] Comment on above: Performed By: #### 2 51522 #### [place] [id number] MCHC 33 X10 3 Normal 32 - 36 [facility] Comment on above: Performed By: #### 2 29219 #### [facility],[address] [place], [place] [address] MCV (RBC) [Entitic vol] 90 fL Normal 80 - 99 [facility] Comment on above: Performed By: #### 2 22270 #### [facility],[address] [place] [address] 02038 [place] # 0.55 x10EE3/UL Normal 0.20 - 1.00 [facility] Comment on above: Performed By: #### 2 29723 #### [facility],[address] [place] [address] 30799 MONOS % 8.3 % Normal 0.0 - 10.0 [facility] Comment on above: Performed By: #### 2 82253 #### [facility],[address] [place] [address] 72267 Morphology Miguel (Bld) [Interp] N/A Normal [facility] Comment on above: Performed By: #### 2 19337 #### [facility],[address] [place] [address] 72853 Neut # 3.89 x10EE3/UL Normal 1.50 - 7.10 [facility] Comment on above: Performed By: #### 2 13668 #### [facility],[address] [place] [address] 40940 Neutrophils/100 WBC (Bld) 58.3 % Normal 46.0 - 76.0 [facility] Comment on above: Performed By: #### 2 28402 #### [facility],[address] [place] [address] 18446 PLATELET 373 x10EE3/UL Normal 150 - 450 [facility] Comment on above: Performed By: #### 2 34593 #### [facility],[address] [place] [address] 24548 Platelet mean volume (Bld) [Entitic vol] 7.8 fL Normal 6.6 - 10.5 [facility] Comment on above: Result Comment: AUTO MATED DIFFERENTIAL Performed By: #### 2 97077 #### [facility],[address] [place] [address] 39223 RBC 5.28 x 10EE6/UL Normal 4.10 - 5.30 [facility] Comment on above: Performed By: #### 2 22956 #### [facility],[address] [place] [address] 65610 WBC 6.7 x 10EE3/UL Normal 4.5 - 10.8 [facility] Comment on above: Performed By: #### 2 23251 #### [facility],[address] [place] [address] 95148 CHEST 2 VIEWSon 11-17-2024 CHEST 2 VIEWS [place] [address] Patient: JESSIKA CARRILLO Phone#: : 1950 Age: 74 Gender: F Pt. Type: Out Account: [id number] Location: [facility] Ordering: FLEX BOLES Exam Date: 11/17/2024/8:11 Family Phys: SHU CHOW Charge Code: 960026 Physician: Will Order #: [id number] Dose#: PROCEDURE: X-RAY CHEST 2 VIEWS COMPARISON: [facility], , CHEST 2 VIEWS, 12/01/2023, 9:37. INDICATIONS: [...] Granda MD on 11/17/2024 at 8:39 Normal [facility] CMP with eGFRon 11-17-2024 AGE 74 years Normal [facility] Comment on above: Performed By: #### 2 87600 #### [facility],[address] [place] [address] 31841 Albumin [Mass/Vol] 3.6 g/dL Normal 3.4 - 5.0 [facility] Comment on above: Performed By: #### 2 61002 #### [facility],[address] [place] [address] 82989 Albumin/Globulin [Mass ratio] 0.9 {ratio} Normal 0.9 - 1.6 [facility] Comment on above: Performed By: #### 2 87078 #### [facility],[address] [place] [address] 16895 ALK PHOS 73 U/L Normal 46 - 116 [facility] Comment on above: Performed By: #### 2 18066 #### [facility],[address] [place] [address] 17654 ALT [Catalytic activity/Vol] 27 U/L Normal 16 - 63 [facility] Comment on above: Performed By: #### 2 34917 #### [facility],[address] [place] [address] 50808 Anion gap [Moles/Vol] 13 mmol/L Normal 10 - 20 [facility] Comment on above: Performed By: #### 2 66668 #### [facility],[address] [place] [address] 58506 AST [Catalytic activity/Vol] 20 U/L Normal 13 - 39 [facility] Comment on above: Performed By: #### 2 42355 #### [facility],[address] [place] [address] 23154 B/C RATIO 24 ratio Normal 0 - 30 [facility] Comment on above: Performed By: #### 2 91603 #### [facility],[address] [place] [address] 21342 Bilirubin [Mass/Vol] 0.4 mg/dL Normal 0.2 - 1.0 [facility] Comment on above: Performed By: #### 2 73735 #### [facility],[address] [place] [address] 09661 Calcium [Mass/Vol] 9.5 mg/dL Normal 8.5 - 10.1 [facility] Comment on above: Performed By: #### 2 17339 #### [facility],[address] [place] [address] 14514 Chloride [Moles/Vol] 103 mmol/L Normal 98 - 107 [facility] Comment on above: Performed By: #### 2 83739 #### [facility],[address] [place] [address] 07873 CMP with eGFR Normal [facility] Comment on above: Result Comment: COMP REHENSIVE METABOLIC PANEL Performed By: #### 2 23576 #### [facility],[address] [place] [address] 80048 CO2 [Moles/Vol] 29.4 mmol/L Normal 21.0 - 32.0 [facility] Comment on above: Performed By: #### 2 95107 #### [facility],[address] [place] [address] 98447 Creatinine [Mass/Vol] 0.86 mg/dL Normal 0.55 - 1.02 [facility] Comment on above: Performed By: #### 2 37311 #### [facility],[address] [place] [address] 36036 GFR/1.73 sq M.predicted among non-blacks MDRD (S/P/Bld) [Vol rate/Area] mL/min/{1.73_m2} Normal 60 - 999 [facility] Comment on above: Performed By: #### 2 35599 #### [facility],[address] [place] [address] 29128 Result Comment: ACCO RDING TO THE NATIONAL KIDNEY DISEASE EDUCATION PROGRAM(NKDE), A NORMAL eGFR IS A VALUE GREATER THAN OR EQUAL TO 60 ML/MIN/1.73 SQ METERS. CHRONIC KIDNEY DISEASE: <60mL/MIN/1.73 SQ METERS KIDNEY FAILURE: <15mL/MIN/1.73 SQ METERS THIS TEST SHOULD ONLY BE USED FOR PATIENTS 18 YEARS OF AGE AND OLDER. Globulin (S) [Mass/Vol] 4.1 g/dL High 1.5 - 3.8 [facility] Comment on above: Performed By: #### 2 91552 #### [facility],[address] [place] [address] Glucose [Mass/Vol] 94 mg/dL Normal 74 - 106 [facility] Comment on above: Performed By: #### 2 52547 #### [facility],[address] [place] [address] Potassium [Moles/Vol] 4.0 mmol/L Normal 3.5 - 5.1 [facility] Comment on above: Performed By: #### 2 34237 #### [address] [address] Protein [Mass/Vol] 7.7 g/dL Normal 6.4 - 8.2 [facility] Comment on above: Performed By: #### 2 93885 #### [address] [address] Sodium [Moles/Vol] 141 mmol/L Normal 136 - 145 [facility] Comment on above: Performed By: #### 2 91618 #### [address] [address] Urea nitrogen [Mass/Vol] 21 mg/dL High 7 - 18 [facility] Comment on above: Performed By: #### 2 72843 #### [address] [address] [address] ABDOMEN/PELVIS [facility] 2024 CT ABDOMEN/PELVIS [place] [address] Patient: JESSIKA CARRILLO Phone#: : 1950 Age: 74 Gender: F Pt. Type: Out Account: [id number] Location: 062 Ordering: FLEX BOLES Exam Date: 11/17/2024/9:17 Family Phys: SHU CHOW Charge Code: [id number] Physician: Will Order #: [id number] Dose#: [id number] PROCEDURE: CT ABDOMEN/PELVIS WITH CONTRAST [...] 74 Gender: F Pt. Type: Out Account: [id number] Location: 062 Ordering: FLEX BOLES Exam Date: 11/17/2024/9:17 Family Phys: SHU CHOW Charge Code: [id number] Physician: Will Order #: [id number] Dose#: [id number] URINARY BLADDER: Normal. No visible [...] Granda MD on 11/17/2024 at 11:29 Normal [facility] Supplemental Reporton 2023 Supplemental Report . Pathology Reports Accession: Collected Date/Time: Received Date/Time: Pathologist: [id number] 08/17/2024 13:36 EDT 08/19/2024 08:23 EDT CALI EVANS MD Supplemental Report SUPPLEMENTAL: [facility] [address] [place] [address] MLH1 Methylation Analysis Clinical summary and Indication: [...] Electronically Signed by Diagnostic interpretation performed at [facility] CALI EVANS Sign out Date: 09/23/2024 14:35 Performing Lab: [facility], [address] [place] [address] Pathology Dept Final Surgical Pathology Report DIAGNOSIS: [...] testing of germline MLH1 may be indicated) METAL TECHNICIAN TUMOR BLOCK(S): A Pathology Reports Accession: Collected Date/Time: Received Date/Time: Pathologist: [id number] 08/17/2024 13:36 EDT 08/19/2024 08:23 EDT CALI EVANS MD COMMENT: [facility] - [id number] CLINICAL INFORMATION: HISTORY OF POLYPS SPECIMEN: A COLON BX AT 130cm B COLON BX AT 150cm GROSS DESCRIPTION: All parts labelled with patient name and [id number] A. Received in formalin labeled biopsy at 130 cm are multiple sofia-brown tissue fragments aggregating to 0.7 x 0.4 x 0.3 cm greatest dimension. TS-1 B. received in formalin labeled biopsy at 150 cm is 1 wispy sofia tissue fragment measuring 0.5 x 0.3 cm greatest dimension. TS-1 Ines Merrill, Grossing [employer]/ Dr. Cali Evans, Pathologist Performed by Ines Merrill MICROSCOPIC DESCRIPTION: The microscopic examination is performed, except in the case of Gross Only. Electronically Signed by Pathology Report verified by [facility] CALI EVANS Sign out Date: 08/30/2024 15:56 Performing Lab: [facility], [address] [place] [address] Pathology Dept Disclaimer If ancillary studies were utilized, the following Laboratory Developed Test (LDT) disclaimer will apply: Under CLIA requirements, [facility] Pathology Laboratory is qualified to perform high complexity testing. For all ancillary stains, positive and negative controls stain appropriately. Performance characteristics of immunohistochemical and chromogenic in-situ hybridization tests have been determined by [facility] Pathology Laboratory. These tests are used for clinical purposes, They should not be regarded as investigational or for research. Normal [facility] Final Surgical Pathology Rep matthias 08-30-2024 Final Surgical Pathology Report . Pathology Reports Accession: Collected Date/Time: Received Date/Time: Pathologist: [id number] 08/17/2024 13:36 EDT 08/19/2024 08:23 EDT CALI [...] testing of germline MLH1 may be indicated) METAL TECHNICIAN TUMOR BLOCK(S): A COMMENT: [facility] - [id number] CLINICAL INFORMATION: HISTORY OF POLYPS SPECIMEN: A COLON BX AT 130cm B COLON BX AT 150cm GROSS DESCRIPTION: All parts labelled with patient name and [id number] A. Received in formalin labeled biopsy at 130 cm are multiple sofia-brown tissue fragments aggregating to 0.7 x 0.4 x 0.3 cm greatest dimension. TS-1 B. received in formalin labeled biopsy at 150 cm is 1 wispy sofia tissue fragment measuring 0.5 x 0.3 cm greatest dimension. TS-1 Ines Merrill, Grossing [employer]/ Dr. Cali Evans, Pathologist Performed by Ines Merrill MICROSCOPIC DESCRIPTION: The microscopic examination is performed, except in the case of Gross Only. Pathology Reports Accession: Collected Date/Time: Received Date/Time: Pathologist: [id number] 08/17/2024 13:36 EDT 08/19/2024 08:23 EDT CALI EVANS MD Electronically Signed by Pathology Report verified by [facility] CALI EVANS Sign out Date: 08/30/2024 15:56 Performing Lab: [facility], [address] [place] [address] Pathology Dept Disclaimer If ancillary studies were utilized, the following Laboratory Developed Test (LDT) disclaimer will apply: Under CLIA requirements, [facility] Pathology Laboratory is qualified to perform high complexity testing. For all ancillary stains, positive and negative controls stain appropriately. Performance characteristics of immunohistochemical and chromogenic in-situ hybridization tests have been determined by [facility] Pathology Laboratory. These tests are used for clinical purposes, They should not be regarded as investigational or for research. Normal [facility] OPERATIVE PROCEDURESon 08-27 OPERATIVE PROCEDURES [facility] OPERATIVE REPORT NAME ACCOUNT SEX AGE ADMIT DISCHARGE PT MED. RECORD# NUMBER DATE DATE TYPE JESSIKA CARRILLO [id number] F 74 08/17/24 08/17/24 2 [id number] ROOM: [facility] DATE OF : 1950 DICTATING PHYSICIAN: Flex Boles DATE OF SURGERY: August 17, 2024 SURGEON: Flex Boles MD CHORUS MASTER: ANESTHESIOLOGIST: ANESTHETIC: PREOPERATIVE DIAGNOSIS: POSTOPERATIVE DIAGNOSIS: Screening [...] tags, and no discrete mass. The Olympus [id number] flexible endoscope was introduced through the anal [...] Flex Boles MD 08/17/24 13:53 JOB #: [id number] Transcribed By: dasia 08/17/24 16:29 Electronically signed by: E-Sign Dr. Flex Boles MD 08/27/24 12:39 Page 2 of 2 JESSIKA CARRILLO Operative Report Normal [facility] 3D MAMM BILAT SCREENon 08-01 3D MAMM BILAT SCREEN [place] [address] Patient: FITOJESSIKA Shannon. Phone#: : 1950 Age: 73 Gender: F Pt. Type: Out Account: [id number] Location: [facility] Ordering: SHU CHOW Exam Date: 08/01/2024/10:25 Family Phys: Charge Code: [id number] Physician: Will Order #: [id number] Dose#: PROCEDURE: BILATERAL SCREENING BREAST TOMOSYNTHESIS MAMMOGRAM WITH CAD COMPARISON: [facility], 3D BILAT SCREEN, 08/28/2022, 13:27. [facility], 3D BILAT SCREEN, 08/21/2023, 11:12. [...] Granda MD on 08/01/2024 at 12:45 Normal [facility] COMPREHENSIVE METABOLIC PANE Anish 07-06-2024 Albumin [Mass/Vol] 4.2 g/dL Normal 3.6-5.1 [facility] Comment on above: Performed By: #### 1 0231, 7600, 83117, 899, 1005, 866 #### [facility] [place] [address] Jeeper Operator: Esteban Shen MD Albumin/Globulin [Mass ratio] 1.4 {ratio} Normal 1.0-2.5 [facility] Comment on above: Performed By: #### 1 0231, 7600, 90451, 899, 1005, 866 #### [facility] [place] [address] Jeeper Operator: Esteban Shen MD ALP [Catalytic activity/Vol] 56 U/L Normal 37-153 [facility] Comment on above: Performed By: #### 1 0231, 7600, 66211, 899, 1005, 866 #### [facility] [place] [address] Jeeper Operator: Esteban Shen MD ALT [Catalytic activity/Vol] 25 U/L Normal 6-29 [facility] Comment on above: Performed By: #### 1 0231, 7600, 14839, 899, 1005, 866 #### [facility] [place] [address] Jeeper Operator: Esteban Shen MD AST [Catalytic activity/Vol] 30 U/L Normal 10-35 [facility] Comment on above: Performed By: #### 1 0231, 7600, 99488, 899, 1005, 866 #### [facility] [place] [address] Jeeper Operator: Esteban Shen MD Bilirubin [Mass/Vol] 0.5 mg/dL Normal 0.2-1.2 [facility] Comment on above: Performed By: #### 1 0231, 7600, 28552, 899, 1005, 866 #### [facility] [place] [address] Jeeper Operator: Esteban Shen MD BUN/CREATININE RATIO SEE NOTE: Normal 6-22 [facility] Comment on above: Result Comment: Not Reported: BUN and Creatinine are within reference range. Performed By: #### 1 0231, 7600, 16927, 899, 1005, 866 #### [facility] [address], [address] [place] [address] Jeeper Operator: Esteban Shen MD Calcium [Mass/Vol] 9.9 mg/dL Normal 8.6-10.4 [facility] Comment on above: Performed By: #### 1 0231, 7600, 01478, 899, 1005, 866 #### [facility] [address], [address] [place] [address] Jeeper Operator: Esteban Shen MD Chloride [Moles/Vol] 100 mmol/L Normal 98-110 [facility] Comment on above: Performed By: #### 1 0231, 7600, 66242, 899, 1005, 866 #### [facility] [address], [address] [place] [address] Jeeper Operator: Esteban Shen MD CO2 [Moles/Vol] 29 mmol/L Normal 20-32 [facility] Comment on above: Performed By: #### 1 0231, 7600, 58226, 899, 1005, 866 #### [facility] [address], [address] [place] [address] Jeeper Operator: Esteban Shen MD Creatinine [Mass/Vol] 0.70 mg/dL Normal 0.60-1.[address] [facility] Comment on above: Performed By: #### 1 0231, 7600, 82464, 899, 1005, 866 #### [facility] [address], [address] [place] [address] Jeeper Operator: Esteban Shen MD GFR/1.73 sq M.predicted among non-blacks MDRD (S/P/Bld) [Vol rate/Area] 91 mL/min/{1.73_m2} Normal > OR = 60 [facility] Comment on above: Performed By: #### 1 0231, 7600, 51573, 899, 1005, 866 #### [facility] [place] [address] Jeeper Operator: Esteban Shen MD Globulin (S) [Mass/Vol] 2.9 g/dL Normal 1.9-3.7 [facility] Comment on above: Performed By: #### 1 0231, 7600, 01594, 899, 1005, 866 #### [facility] [place] [address] Jeeper Operator: Esteban Shen MD Glucose [Mass/Vol] 91 mg/dL Normal 65-99 [facility] Comment on above: Result Comment: Fasting reference interval Performed By: #### 1 0231, 7600, 71103, 899, 1005, 866 #### [facility] [place] [address] Jeeper Operator: Esteban Shen MD Potassium [Moles/Vol] 4.5 mmol/L Normal 3.5-5.[address] [facility] [address] [facility] Comment on above: Performed By: #### 1 0231, 7600, 82679, 899, 1005, 866 #### [facility] [place] [address] Jeeper Operator: Esteban Shen MD Protein [Mass/Vol] 7.1 g/dL Normal 6.1-8.1 [facility] Comment on above: Performed By: #### 1 0231, 7600, 29822, 899, 1005, 866 #### [facility] [place] [address] Jeeper Operator: Esteban Shen MD Sodium [Moles/Vol] 139 mmol/L Normal 135-146 [facility] Comment on above: Performed By: #### 1 0231, 7600, 82179, 899, 1005, 866 #### [facility] [place] [address] Jeeper Operator: Esteban Shen MD Urea nitrogen [Mass/Vol] 14 mg/dL Normal 7-25 [facility] Comment on above: Performed By: #### 1 0231, 7600, 17034, 899, 1005, 866 #### [facility] [place] [address] Jeeper Operator: Esteban Shen MD LIPID PANEL, [facility] Cholesterol [Mass/Vol] 213 mg/dL High <200 [facility] Comment on above: Performed By: #### 1 0231, 7600, 87701, 899, 1005, 866 #### [facility] [place] [address] Jeeper Operator: Esteban Shen MD Cholesterol in HDL [Mass/Vol] 51 mg/dL Normal > OR = 50 [facility] Comment on above: Performed By: #### 1 0231, 7600, 72644, 899, 1005, 866 #### [facility] [place] [address] Jeeper Operator: Esteban Shen MD Cholesterol in LDL [...] LDL-C. Rohan HO et al. NIEVES. 2013;310(19): 1256-6530 (http://education.Indyarocks.Shoette/faq/XLD667) Performed By: #### 1 0231, 7600, 59120, 899, 1005, 866 #### [facility] [address], [address] [place] [address] Jeeper Operator: Esteban Shen MD Cholesterol.total/Chol esterol in HDL [Mass ratio] 4.2 {ratio} Normal <5.0 [facility] Comment on above: Performed By: #### 1 0231, 7600, 96364, 899, 1005, 866 #### [facility] [place] [address] Jeeper Operator: Esteban Shen MD NON HDL CHOLESTEROL 162 mg/dL (calc) High <130 [facility] Comment on above: Result Comment: For patients with diabetes plus 1 major ASCVD risk factor, treating to a non-HDL-C goal of <100 mg/dL (LDL-C of <70 mg/dL) is considered a therapeutic option. Performed By: #### 1 0231, 7600, 19536, 899, 1005, 866 #### [facility] [place] [address] Jeeper Operator: Esteban Shen MD Triglyceride [Mass/Vol] 216 mg/dL High <150 [facility] Comment on above: Result Comment: If a non-fasting specimen was collected, consider repeat triglyceride testing on a fasting specimen if clinically indicated. Jamel et al. J. of Clin. Lipidol. 2015;9:129-169. Performed By: #### 1 0231, 7600, 53377, 899, 1005, 866 #### [facility] [place] [address] Jeeper Operator: Esteban Shen MD T4, FREEon 07-06-2024 Free T4 [Mass/Vol] 1.1 ng/dL Normal 0.8-1.8 [facility] Comment on above: Performed By: #### 1 0231, 7600, 86414, 899, 1005, 866 #### [facility] [place] [address] Jeeper Operator: Esteban Shen MD TEST AUTHORIZATIONon 024 CLIENT CONTACT: ROVERTO LYNCH Normal [facility] Comment on above: Performed By: #### 1 0231, 7600, 08815, 899, 1005, 866 #### [facility] [address], [address] [place] [address] Jeeper Operator: Esteban Shen MD COMMENT Normal [facility] Comment on above: Result Comment: Plea se have the ordering physician or his or her authorized human resources representative sign a copy of this report and promptly return it by faxing it to: [phone] or by returning the form to your applique sewer. Performed By: #### 1 0231, 7600, 25873, 899, 1005, 866 #### [facility] [place] [address] Jeeper Operator: Esteban Shen MD REPORT ALWAYS MESSAGE SIGNATURE Normal [facility] Comment on above: Result Comment: The laboratory testing on this patient was verbally requested or confirmed by the ordering physician or his or her authorized human resources representative after contact with an employee of [employer]. Federal regulations require that we maintain on file written authorization for all laboratory testing. Accordingly we are asking that the ordering physician or his or her authorized human resources representative sign a copy of this report and promptly return it to the software client architect. Signature: Performed By: #### 1 0231, 7600, 76989, 899, 1005, 866 #### [facility] [address], [address] [place] [address] Jeeper Operator: Esteban Shen MD TEST CODE: 866SB Normal [facility] Comment on above: Performed By: #### 1 0231, 7600, 59050, 899, 1005, 866 #### [facility] [address], [address] [place] [address] Jeeper Operator: Esteban Shen MD TEST NAME: T4, FREE Normal [facility] Comment on above: Performed By: #### 1 0231, 7600, 92914, 899, 1005, 866 #### [facility] [address], [address] [place], [place] [address] Jeeper Operator: Esteban Shen MD TSHon 07-06-2024 TSH Qn 4.86 m[IU]/L High 0.40-4.50 [facility] Comment on above: Performed By: #### 1 0231, 0, 96913, 899, 1005, 866 #### [facility] [address], [address] Jeeper Operator: Esteban Shen MD VITAMIN D,25-OH,TOTAL,IAon 0 [...] D, (D2,D3), LC/MS/MS is recommended: order code 39912 (patients >2yrs). See Note 1 Note 1 For additional information, please refer to http://education.Indyarocks.Shoette/faq/MCB039 (This link is being provided for informational/ educational purposes only.) Performed By: #### 1 0231, 0, 31006, 899, 1005, 866 #### [facility] [address], [address] [place] [address] Jeeper Operator: Esteban Shen MD Laboratory - Chemistry and C hemistry - challengeon 07-05-2024 Albumin [Mass/Vol] 4.2 g/dL Normal 3.6 - 5.1 g/dL [facility] Albumin/Globulin [Mass ratio] 1.4 {ratio} Normal 1.0 - 2.5 [facility], [facility].; [facility] ALP [Catalytic activity/Vol] 56 U/L Normal 37 - 153 U/L [facility].; [facility], [facility]. ALT [Catalytic activity/Vol] 25 U/L Normal 6 - 29 U/L [facility].; [employer] [facility], [employer]. AST [Catalytic activity/Vol] 30 U/L Normal 10 - 35 U/L [facility], [facility].; [employer] [facility] Bilirubin [Mass/Vol] 0.5 mg/dL Normal 0.2 - 1 .2 mg/dL [facility].; [employer] [facility], [facility]. Calcium [Mass/Vol] 9.9 mg/dL Normal 8.6 - 10. 4 mg/dL [facility].; [employer] [facility]. Chloride [Moles/Vol] 100 mmol/L Normal 98 - 11 0 mmol/L [facility], [facility].; [employer], [employer]. Cholesterol [Mass/Vol] 213 mg/dL Abnormal [facility].; [employer] [facility] Cholesterol in HDL [Mass/Vol] 51 mg/dL Normal [facility].; [employer] Cholesterol in LDL [Mass/Vol] 126 mg/dL Abnormal [employer] [facility].; [employer]. CO2 [Moles/Vol] 29 mmol/L Normal 20 - 32 mmol/L [facility].; [employer], [facility] Creatinine [Mass/Vol] 0.70 mg/dL Normal 0.60 - 1.00 mg/dL [facility].; [employer]. Free T4 [Mass/Vol] 1.1 ng/dL Normal 0.8 - 1.8 ng/dL [employer] [facility].; [employer] Work Phone: GFR/1.73 sq M.predicted among non-blacks MDRD (S/P/Bld) [Vol rate/Area] 91 mL/min/{1.73_m2} Normal [facility].; [employer] Glucose [Mass/Vol] 91 mg/dL Normal 65 - 99 mg/dL [facility] [employer] Potassium [Moles/Vol] 4.5 mmol/L Normal 3.5 - 5.3 mmol/L [facility]; [employer] [facility] Protein [Mass/Vol] 7.1 g/dL Normal 6.1 - 8.1 g/dL [facility]; [employer] [facility] Sodium [Moles/Vol] 139 mmol/L Normal 135 - 146 mmol/L [facility]; [employer] [facility] Triglyceride [Mass/Vol] 216 mg/dL Abnormal [employer] [facility]; [employer] [facility] TSH Qn 4.86 m[IU]/L Abnormal 0.40 - 4.50 {mIU/L} [facility]; [employer] [facility] Urea nitrogen [Mass/Vol] 14 mg/dL Normal 7 - 25 mg/dL [facility]; [employer] [facility] No Panel Informationon 07-05 [id number] See Below Normal [facility]; [employer] [facility] Work Phone: BUN/CREATININE RATIO SEE NOTE: Normal 6 - 22 [facility]; [employer] [facility] CHOL/HDLC RATIO 4.2 Normal [facility]; [employer] [facility] CLIENT CONTACT: ROVERTO LYNCH Normal [facility]; [employer] [facility] Work Phone: GLOBULIN 2.9 Normal 1.9 - 3.7 [facility]; [employer] [facility] NON HDL CHOLESTEROL 162 Abnormal [facility]; [employer] [facility] TEST CODE: 866SB Normal [employer] [facility]; [employer] Work Phone: TEST NAME: T4, FREE Normal [employer] [facility]; [employer] Work Phone: VITAMIN D,25-OH,TOTAL,IA 36 ng/mL Normal 30 - 100 ng/mL [facility]; [employer] Final Surgical Pathology Rep [facility] medical [facility] 12-25-2023 Final Surgical Pathology Report . 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 INFLAMMATION OR TUMOR COMMENT: [facility] # [id number] CLINICAL INFORMATION: OSTEOARTHRITIS RIGHT KNEE SPECIMEN: A BONE RIGHT KNEE GROSS DESCRIPTION: All parts labelled with patient name and [id number] Received in formalin labelled right knee bone [...] Electronically Signed by Pathology Report verified by [facility] CALI EVANS Sign out Date: 12/25/2023 10:06 Performing Lab: [facility], [address] [place] [address] Pathology Dept Disclaimer If ancillary studies were utilized, the following Laboratory Developed Test (LDT) disclaimer will apply: Under CLIA requirements, [facility] Pathology Laboratory is qualified to perform high complexity testing. For all ancillary stains, positive and negative controls stain appropriately. Performance characteristics of immunohistochemical and chromogenic in-situ hybridization tests have been determined by [facility] Pathology Laboratory. These tests are used for clinical purposes, They should not be regarded as investigational or for research. Normal [facility] KNEE 2 VIEWS RTon 12-21-2023 KNEE 2 VIEWS [place] [address] Patient: JESSIKA CARRILLO Phone#: : 1950 Age: 73 Gender: F Pt. Type: Out Account: [id number] Location: 062 Ordering: [facility] Date: 12/21/2023/10:30 Family Phys: SHU CHOW Charge Code: [id number] Physician: Will Order #: [id number] Dose#: PROCEDURE: X-RAY KNEE RT 2 VIEWS COMPARISON: [facility], XR, KNEE COMPLETE RT MIN 4 VIEWS, 06/25/2015, 12:19. INDICATIONS: Post Operative. FINDINGS: BONES: Postoperative changes of right knee arthroplasty with tibial and femoral hardware components. SOFT TISSUES: Expected postoperative air in the soft tissues. Cutaneous rossana are present. EFFUSION: None visible. OTHER: Negative. CONCLUSION: 1. Expected postoperative changes of right knee arthroplasty. Dictated by: Fernanda Santoyo MD on 12/21/2023 at 13:53 Approved by: Fernanda Santoyo MD on 12/21/2023 at 13:54 Normal [facility] BMP with eGFRon 12-01-2023 AGE 73 years Normal [facility] Comment on above: Performed By: #### 2 [id number] #### [facility],[address] [place], [place] [id number] Anion gap [Moles/Vol] 11 mmol/L Normal 10 - 20 [facility] Comment on above: Performed By: #### 2 [id number] #### [facility],[address] [place], [place] [id number] BMP with eGFR Normal [facility] Comment on above: Result Comment: BASI C METABOLIC PANEL Performed By: #### 2 [id number] #### [address] [address] Calcium [Mass/Vol] 9.7 mg/dL Normal 8.5 - 10.1 [facility] Comment on above: Performed By: #### 2 86555 #### [facility],[address] [place] [address] 24005 Chloride [Moles/Vol] 103 mmol/L Normal 98 - 107 [facility] Comment on above: Performed By: #### 2 86437 #### [facility],[address] [place] [address] 20258 CO2 [Moles/Vol] 29.7 mmol/L Normal 21.0 - 32.0 [facility] Comment on above: Performed By: #### 2 63287 #### [facility],[address] [place] [address] 09168 Creatinine [Mass/Vol] 0.91 mg/dL Normal 0.55 - 1.02 [facility] Comment on above: Performed By: #### 2 92648 #### [facility],[address] [place] [address] 91607 eGFR 60 ML/MINUTE Normal 60 - 999 [facility] Comment on above: Performed By: #### 2 43294 #### [facility],[address] [place] [address] 96448 GFR/1.73 sq M.predicted among non-blacks MDRD (S/P/Bld) [Vol rate/Area] mL/min/{1.73_m2} Normal 60 - 999 [facility] Comment on above: Result Comment: ACCO RDING TO THE NATIONAL KIDNEY DISEASE EDUCATION PROGRAM(NKDE), A NORMAL eGFR IS A VALUE GREATER THAN OR EQUAL TO 60 ML/MIN/1.73 SQ METERS. CHRONIC KIDNEY DISEASE: <60mL/MIN/1.73 SQ METERS KIDNEY FAILURE: <15mL/MIN/1.73 SQ METERS THIS TEST SHOULD ONLY BE USED FOR PATIENTS 18 YEARS OF AGE AND OLDER. Performed By: #### 2 43471 #### [facility],[address] [place] [address] 45571 Glucose [Mass/Vol] 98 mg/dL Normal 74 - 106 [facility] Comment on above: Performed By: #### 2 86765 #### [facility],[address] [place] [address] 77809 Potassium [Moles/Vol] 3.9 mmol/L Normal 3.5 - 5.1 [facility] Comment on above: Performed By: #### 2 71393 #### [address] [address] Sodium [Moles/Vol] 140 mmol/L Normal 136 - 145 [facility] Comment on above: Performed By: #### 2 30212 #### [facility],[address] [place] [address] 74800 Urea nitrogen [Mass/Vol] 13 mg/dL Normal 7 - 18 [facility] Comment on above: Performed By: #### 2 55959 #### [facility],[address] [place] [address] 39723 CBC + DIFFon 12-01-2023 Baso # 0.10 x10EE3/UL Normal 0.00 - 0.10 [facility] Comment on above: Performed By: #### 2 19694 #### [facility],[address] [place] [address] 87840 Basophils/100 WBC (Bld) 1.3 % Normal 0.0 - 2.0 [facility] Comment on above: Performed By: #### 2 77227 #### [facility],[address] [place] [address] 33451 CBC + DIFF Normal [facility] Comment on above: Result Comment: CBC- COMPLETE BLOOD COUNT Performed By: #### 2 31742 #### [facility],[address] [place] [address] 01595 EO # 0.20 x10EE3/UL Normal 0.00 - 0.50 [facility] Comment on above: Performed By: #### 2 99374 #### [facility],[address] [place] [address] 53728 Eosinophils/100 WBC (Bld) 2.9 % Normal 0.0 - 7.0 [facility] Comment on above: Performed By: #### 2 96260 #### [facility],[address] [place] [address] 40329 Erythrocyte distribution width (RBC) [Ratio] 13.6 % Normal 12.0 - 15.6 [facility] Comment on above: Performed By: #### 2 28189 #### [facility],[address] [place] [address] 88537 Hematocrit (Bld) [Volume fraction] 46.6 % High 34.0 - 46.0 [facility] Comment on above: Performed By: #### 2 68337 #### [facility],[address] [place] [address] 41741 Hemoglobin (Bld) [Mass/Vol] 15.5 g/dL Normal 12.0 - 16.0 [facility] Comment on above: Performed By: #### 2 00489 #### [facility],[address] [place] [address] 64932 Lymph # 1.60 x10EE3/UL Normal 0.80 - 2.80 [facility] Comment on above: Performed By: #### 2 24917 #### [facility],[address] [place] [address] 90144 Lymphocytes/100 WBC (Bld) 21.4 % Normal 20.0 - 45.0 [facility] Comment on above: Performed By: #### 2 32460 #### [facility],[address] [place] [address] 04680 MANUAL DIFF N/A Normal [facility] Comment on above: Performed By: #### 2 63442 #### [facility],[address] [place] [address] 28433 MCH (RBC) [Entitic mass] 30 pg Normal 27 - 33 [facility] Comment on above: Performed By: #### 2 65131 #### [facility],[address] [place] [address] 30334 MCHC 33 X10 3 Normal 32 - 36 [facility] Comment on above: Performed By: #### 2 09809 #### [facility],[address] [place] [address] 53275 MCV (RBC) [Entitic vol] 91 fL Normal 80 - 99 [facility] Comment on above: Performed By: #### 2 91294 #### [facility],[address] [place] [address] 01565 [place] # 0.60 x10EE3/UL Normal 0.20 - 1.00 [facility] Comment on above: Performed By: #### 2 44163 #### [facility],[address] [place] [address] 43393 MONOS % 7.5 % Normal 0.0 - 10.0 [facility] Comment on above: Performed By: #### 2 96793 #### [facility],[address] [place] [address] 06325 Morphology Miguel (Bld) [Interp] N/A Normal [facility] Comment on above: Result Comment: {CD] Performed By: #### 2 34201 #### [facility],[address] [place] [address] 37665 Neut # 4.90 x10EE3/UL Normal 1.50 - 7.10 [facility] Comment on above: Performed By: #### 2 22366 #### [facility],[address] [place] [address] 85236 Neutrophils/100 WBC (Bld) 66.9 % Normal 46.0 - 76.0 [facility] Comment on above: Performed By: #### 2 90301 #### [facility],[address] [place] [address] PLATELET 370 x10EE3/UL Normal 150 - 450 [facility] Comment on above: Performed By: #### 2 59048 #### [facility],[address] [place] [address] 30746 Platelet mean volume (Bld) [Entitic vol] 8.2 fL Normal 6.6 - 10.5 [facility] Comment on above: Result Comment: AUTO MATED DIFFERENTIAL Performed By: #### 2 94562 #### [facility],[address] [place] [address] 26884 RBC 5.13 x 10EE6/UL Normal 4.10 - 5.30 [facility] Comment on above: Performed By: #### 2 16937 #### [facility],[address] [place] [address] 44645 WBC 7.3 x 10EE3/UL Normal 4.5 - 10.8 [facility] Comment on above: Performed By: #### 2 64520 #### [facility],[address] [place] [address] CHEST 2 VIEWSon 12-01-2023 CHEST [address] [address] Patient: JESSIKA CARRILLO Phone#: : 1950 Age: 73 Gender: F Pt. Type: Out Account: [id number] Location: [facility] Ordering: KALPESH BOLES Exam Date: 12/01/2023/9:37 Family Phys: SHU CHOW Charge Code: [id number] Physician: Will Order #: [id number] Dose#: PROCEDURE: X-RAY CHEST 2 VIEWS COMPARISON: [...] Granda MD on 12/01/2023 at 15:18 Normal [facility] Laboratory - Chemistry and C hemistry - challengeon 11-23-2023 Albumin [Mass/Vol] 4.2 g/dL Normal 3.6 - 5.1 g/dL [facility] Albumin/Globulin [Mass ratio] 1.6 {ratio} Normal 1.0 - 2.5 [facility].; [facility], [facility]. ALP [Catalytic activity/Vol] 51 U/L Normal 37 - 153 U/L [facility].; [facility], [facility]. ALT [Catalytic activity/Vol] 52 U/L Abnormal 6 - 29 U/L [facility], [facility].; [facility], [facility]. AST [Catalytic activity/Vol] 54 U/L Abnormal 10 - 35 U/L [facility], [facility].; [facility], [facility]. Bilirubin [Mass/Vol] 0.4 mg/dL Normal 0.2 - 1 .2 mg/dL [facility], [facility].; [facility], [facility]. Calcium [Mass/Vol] 9.7 mg/dL Normal 8.6 - 10. 4 mg/dL [facility], [facility].; [employer] [facility], [facility]. Chloride [Moles/Vol] 106 mmol/L Normal 98 - 11 0 mmol/L [facility], [facility].; [employer] [facility], [employer]. CO2 [Moles/Vol] 22 mmol/L Normal 20 - 32 mmol/L [facility].; [employer] [facility], [facility]. Creatinine [Mass/Vol] 0.76 mg/dL Normal 0.60 - 1.00 mg/dL [facility].; [employer] [facility], [facility]. GFR/1.73 sq M.predicted among non-blacks MDRD (S/P/Bld) [Vol rate/Area] 82 mL/min/{1.73_m2} Normal [facility].; [facility], [facility]. Glucose [Mass/Vol] 96 mg/dL Normal 65 - 99 mg/dL [facility], [facility].; [employer] [facility], [facility]. Potassium [Moles/Vol] 4.6 mmol/L Normal 3.5 - 5.3 mmol/L [facility].; [employer] [facility], [facility]. Protein [Mass/Vol] 6.9 g/dL Normal 6.1 - 8.1 g/dL [facility], [facility].; [employer] [facility] Sodium [Moles/Vol] 144 mmol/L Normal 135 - 146 mmol/L [facility].; [employer] [facility], [facility]. Urea nitrogen [Mass/Vol] 17 mg/dL Normal 7 - 25 mg/dL [facility].; [employer] [facility], [facility] Laboratory - Hematology and Cell countson 11-23-2023 Basophils (Bld) [#/Vol] 0.073 10*3/uL Normal 0 - 200 {cells/uL} [facility], [facility].; [facility], [facility] Basophils/100 WBC (Bld) 1.0 % Normal [facility].; [facility], [facility] Eosinophils (Bld) [#/Vol] 0.212 10*3/uL Normal 15 - 500 {cells/uL} [facility].; [employer] [facility], [facility] Eosinophils/100 WBC (Bld) 2.9 % Normal [facility].; [employer] [facility], [facility] Erythrocyte distribution width (RBC) [Ratio] 12.6 % Normal 11.0 - 15.0 % [facility].; [employer] [facility], [facility] Hematocrit (Bld) [Volume fraction] 45.8 % Abnormal 35.0 - 45.0 % [facility].; [employer], [facility] Hemoglobin (Bld) [Mass/Vol] 15.2 g/dL Normal 11.7 - 15.5 g/dL [facility].; [employer] [facility], [facility]. Lymphocytes (Bld) [#/Vol] 1.927 10*3/uL Normal 850 - 3900 {cells/uL} [facility], [facility].; [employer] [facility], [facility] Lymphocytes/100 WBC (Bld) 26.4 % Normal [facility].; [employer], [facility]. MCH (RBC) [Entitic mass] 30.9 pg Normal 27.0 - 33.0 pg [employer] [facility].; [employer], [facility]. MCHC (RBC) [Mass/Vol] 33.2 g/dL Normal 32.0 - 36.0 g/dL [facility], [facility].; [employer], [facility]. MCV (RBC) [Entitic vol] 93.1 fL Normal 80.0 - 100.0 fL [facility].; [employer], [facility]. Monocytes (Bld) [#/Vol] 0.621 10*3/uL Normal 200 - 950 {cells/uL} [facility].; [employer]. Monocytes/100 WBC (Bld) 8.5 % Normal [facility].; [facility], [employer]. Neutrophils (Bld) [#/Vol] 4.468 10*3/uL Normal 1500 - 7800 {cells/uL} [facility].; [employer]. Neutrophils/100 WBC (Bld) 61.2 % Normal [facility].; [employer]. Platelet mean volume (Bld) [Entitic vol] 11.0 fL Normal 7.5 - 12.5 fL [facility].; [employer]. Platelets (Bld) [#/Vol] 360 10*3/uL Normal 140 - 400 [facility].; [employer], [employer] RBC (Bld) [#/Vol] 4.92 10*6/uL Normal 3.80 - 5.10 {Million/u L} [facility].; [employer], [employer]. WBC (Bld) [#/Vol] 7.3 10*3/uL Normal 3.8 - 10.8 [employer].; [employer] No Panel Informationon 11-23 BUN/CREATININE RATIO SEE NOTE: Normal - [facility].; [employer] GLOBULIN 2.7 Normal 1.9 - 3.7 [employer] [facility].; [employer]. Laboratory - Chemistry and C hemistry - challengeon 07-20-2023 Albumin [Mass/Vol] 4.0 g/dL Normal 3.6 - 5.1 g/dL [employer] [facility].; [employer], [employer]. Albumin/Globulin [Mass ratio] 1.4 {ratio} Normal 1.0 - 2.5 [employer] [facility].; [employer], [employer]. ALP [Catalytic activity/Vol] 47 U/L Normal 37 - 153 U/L [employer] [facility].; [employer]. ALT [Catalytic activity/Vol] 54 U/L Abnormal 6 - 29 U/L [facility].; [facility], [facility]. AST [Catalytic activity/Vol] 49 U/L Abnormal 10 - 35 U/L [facility], [facility].; [facility], [facility]. Bilirubin [Mass/Vol] 0.5 mg/dL Normal 0.2 - 1 .2 mg/dL [facility], [facility].; [facility], [facility]. Calcium [Mass/Vol] 9.6 mg/dL Normal 8.6 - 10. 4 mg/dL [facility], [facility].; [facility], [facility]. Chloride [Moles/Vol] 100 mmol/L Normal 98 - 11 0 mmol/L [facility], [facility].; [facility], [facility]. Cholesterol [Mass/Vol] 204 mg/dL Abnormal [facility].; [facility], [facility] Cholesterol in HDL [Mass/Vol] 67 mg/dL Normal [facility], [facility].; [facility], [facility] Cholesterol in LDL [Mass/Vol] 107 mg/dL Abnormal [facility], [facility].; [facility], [facility]. CO2 [Moles/Vol] 28 mmol/L Normal 20 - 32 mmol/L [facility], [facility].; [facility], [facility]. Creatinine [Mass/Vol] 0.83 mg/dL Normal 0.60 - 1.00 mg/dL [facility], [facility].; [facility], [facility]. GFR/1.73 sq M.predicted among non-blacks MDRD (S/P/Bld) [Vol rate/Area] 74 mL/min/{1.73_m2} Normal [facility], [facility].; [facility] Glucose [Mass/Vol] 96 mg/dL Normal 65 - 99 mg/dL [facility], [facility].; [facility], [facility]. Potassium [Moles/Vol] 3.9 mmol/L Normal 3.5 - 5.3 mmol/L [facility], [facility].; [facility] Protein [Mass/Vol] 6.9 g/dL Normal 6.1 - 8.1 g/dL [facility], [facility].; [facility] Sodium [Moles/Vol] 138 mmol/L Normal 135 - 146 mmol/L [facility] Center[facility].; [employer]. Triglyceride [Mass/Vol] 178 mg/dL Abnormal [facility].; [employer] Urea nitrogen [Mass/Vol] 17 mg/dL Normal 7 - 25 mg/dL [employer] [facility].; [employer] No Panel Informationon 07-20 BUN/CREATININE RATIO SEE NOTE: Normal 6 - 22 [facility].; [employer] [facility] CHOL/HDLC RATIO 3.0 Normal [facility]; [employer] GLOBULIN 2.9 Normal 1.9 - 3.7 [facility].; [employer] NON HDL CHOLESTEROL 137 Abnormal [facility]; [employer] [facility] VITAMIN D,25-OH,TOTAL,IA 22 ng/mL Abnormal 30 - 100 ng/mL [facility].; [employer]. Laboratory - Chemistry and C hemistry - challengeon 08-18-2022 Albumin [Mass/Vol] 4.0 g/dL Normal 3.6 - 5.1 g/dL [facility].; [employer], [employer]. Albumin/Globulin [Mass ratio] 1.3 {ratio} Normal 1.0 - 2.5 [employer] [facility].; [employer]. ALP [Catalytic activity/Vol] 60 U/L Normal 37 - 153 U/L [employer] [facility].; [employer], [employer]. ALT [Catalytic activity/Vol] 37 U/L Abnormal 6 - 29 U/L [employer] [facility].; [employer]. AST [Catalytic activity/Vol] 34 U/L Normal 10 - 35 U/L [employer] [facility].; [employer], [employer]. Bilirubin [Mass/Vol] 0.5 mg/dL Normal 0.2 - 1 .2 mg/dL [employer] [facility].; [employer], [employer]. Calcium [Mass/Vol] 9.6 mg/dL Normal 8.6 - 10. 4 mg/dL [employer] [facility].; [employer]. Chloride [Moles/Vol] 98 mmol/L Normal 98 - 11 0 mmol/L [facility].; [facility], [facility]. Cholesterol [Mass/Vol] 225 mg/dL Abnormal [facility].; [facility], [facility]. Cholesterol in HDL [Mass/Vol] 57 mg/dL Normal [facility], [facility].; [facility] Cholesterol in LDL [Mass/Vol] 139 mg/dL Abnormal [facility], [facility].; [facility], [facility]. CO2 [Moles/Vol] 29 mmol/L Normal 20 - 32 mmol/L [facility], [facility].; [facility], [facility]. Creatinine [Mass/Vol] 0.67 mg/dL Normal 0.60 - 1.00 mg/dL [facility], [facility].; [facility], [facility]. GFR/1.73 sq M.predicted among non-blacks MDRD (S/P/Bld) [Vol rate/Area] 92 mL/min/{1.73_m2} Normal [facility], [facility].; [facility], [facility]. Glucose [Mass/Vol] 82 mg/dL Normal 65 - 99 mg/dL [facility], [facility].; [employer] [facility], [facility]. Potassium [Moles/Vol] 4.4 mmol/L Normal 3.5 - 5.3 mmol/L [facility], [facility].; [employer] [facility], [facility]. Protein [Mass/Vol] 7.2 g/dL Normal 6.1 - 8.1 g/dL [facility], [facility].; [employer] Sodium [Moles/Vol] 136 mmol/L Normal 135 - 146 mmol/L [facility], [facility].; [employer] [facility], [facility]. Triglyceride [Mass/Vol] 157 mg/dL Abnormal [facility].; [employer] [facility], [facility]. Urea nitrogen [Mass/Vol] 11 mg/dL Normal 7 - 25 mg/dL [facility], [facility].; [employer] [facility], [facility]. No Panel Informationon 08-18 BUN/CREATININE RATIO NOT APPLICABLE Normal 6 - 22 [facility], [facility].; [employer] CHOL/HDLC RATIO 3.9 Normal [facility], [facility].; [employer], [employer]. GLOBULIN 3.2 Normal 1.9 - 3.7 [facility].; [facility], [facility]. NON HDL CHOLESTEROL 168 Abnormal [facility].; [facility], [facility] VITAMIN D,25-OH,TOTAL,IA 34 ng/mL Normal 30 - 100 ng/mL [facility].; [facility], [facility] Laboratory - Chemistry and C hemistry - challengeon 04-16-2022 Albumin [Mass/Vol] 4.0 g/dL Normal 3.6 - 5.1 g/dL [facility]; [facility], [facility] Albumin/Globulin [Mass ratio] 1.3 {ratio} Normal 1.0 - 2.5 [facility]; [facility], [facility] ALP [Catalytic activity/Vol] 58 U/L Normal 37 - 153 U/L [facility]; [facility], [facility]. ALT [Catalytic activity/Vol] 33 U/L Abnormal 6 - 29 U/L [facility].; [facility], [facility]. AST [Catalytic activity/Vol] 29 U/L Normal 10 - 35 U/L [facility].; [facility]. Bilirubin [Mass/Vol] 0.5 mg/dL Normal 0.2 - 1 .2 mg/dL [facility]; [facility], [facility]. Calcium [Mass/Vol] 9.2 mg/dL Normal 8.6 - 10. 4 mg/dL [facility].; [facility], [facility]. Chloride [Moles/Vol] 105 mmol/L Normal 98 - 11 0 mmol/L [facility].; [facility], [facility]. Cholesterol [Mass/Vol] 208 mg/dL Abnormal [facility]; [facility], [facility] Cholesterol in HDL [Mass/Vol] 57 mg/dL Normal [facility]; [facility], [facility] Cholesterol in LDL [Mass/Vol] 125 mg/dL Abnormal [facility].; [facility], [facility]. CO2 [Moles/Vol] 25 mmol/L Normal 20 - 32 mmol/L [facility].; [facility], [facility] Creatinine [Mass/Vol] 0.78 mg/dL Normal 0.60 - 0.93 mg/dL [facility].; [facility] GFR/1.73 sq M.predicted among blacks MDRD (S/P/Bld) [Vol rate/Area] 88 mL/min/{1.73_m2} Normal [facility]; [facility], [facility] Glucose [Mass/Vol] 98 mg/dL Normal 65 - 99 mg/dL [facility]; [facility], [facility] Potassium [Moles/Vol] 4.3 mmol/L Normal 3.5 - 5.3 mmol/L [facility]; [facility], [facility] Protein [Mass/Vol] 7.0 g/dL Normal 6.1 - 8.1 g/dL [facility]; [employer] [facility], [facility] Sodium [Moles/Vol] 139 mmol/L Normal 135 - 146 mmol/L [facility]; [facility], [facility] Triglyceride [Mass/Vol] 145 mg/dL Normal [facility]; [employer] [facility], [facility] Urea nitrogen [Mass/Vol] 13 mg/dL Normal 7 - 25 mg/dL [facility]; [employer] [facility] No Panel Informationon 04-16 BUN/CREATININE RATIO NOT APPLICABLE Normal 6 - 22 [facility]; [employer] [facility], [facility] CHOL/HDLC RATIO 3.6 Normal [facility]; [employer] [facility], [facility] eGFR NON-AFR. INDONESIAN 76 Normal [facility]; [facility], [facility] GLOBULIN 3.0 Normal 1.9 - 3.7 [facility]; [facility], [facility] NON HDL CHOLESTEROL 151 Abnormal [facility]; [employer] [facility] Laboratory - Chemistry and C hemistry - challengeon 04-11-2021 Albumin [Mass/Vol] 4.0 g/dL Normal 3.6 - 5.1 g/dL [facility].; [employer] [facility], [facility] Albumin/Globulin [Mass ratio] 1.3 {ratio} Normal 1.0 - 2.5 [facility]; [employer] [facility]. ALP [Catalytic activity/Vol] 67 U/L Normal 37 - 153 U/L [facility], [facility].; [facility], [facility]. ALT [Catalytic activity/Vol] 36 U/L Abnormal 6 - 29 U/L [facility].; [facility], [facility]. AST [Catalytic activity/Vol] 30 U/L Normal 10 - 35 U/L [facility].; [facility], [facility] Bilirubin [Mass/Vol] 0.4 mg/dL Normal 0.2 - 1 .2 mg/dL [facility].; [facility], [facility] Calcium [Mass/Vol] 9.6 mg/dL Normal 8.6 - 10. 4 mg/dL [facility]; [facility], [facility]. Chloride [Moles/Vol] 103 mmol/L Normal 98 - 11 0 mmol/L [facility], [facility].; [facility], [facility] Cholesterol [Mass/Vol] 247 mg/dL Abnormal [facility].; [facility], [facility] Cholesterol in HDL [Mass/Vol] 65 mg/dL Normal [facility]; [facility], [facility] Cholesterol in LDL [Mass/Vol] 163 mg/dL Abnormal [facility]; [facility], [facility]. CO2 [Moles/Vol] 28 mmol/L Normal 20 - 32 mmol/L [facility].; [facility], [facility] Creatinine [Mass/Vol] 0.73 mg/dL Normal 0.60 - 0.93 mg/dL [facility], [facility].; [facility], [facility]. GFR/1.73 sq M.predicted among blacks MDRD (S/P/Bld) [Vol rate/Area] 96 mL/min/{1.73_m2} Normal [facility], [facility].; [facility], [facility]. Glucose [Mass/Vol] 115 mg/dL Abnormal 65 - 99 mg/dL [facility], [facility].; [facility], [facility]. Potassium [Moles/Vol] 4.1 mmol/L Normal 3.5 - 5.3 mmol/L [facility], [facility].; [facility], [facility] Protein [Mass/Vol] 7.0 g/dL Normal 6.1 - 8.1 g/dL [facility]; [facility] Sodium [Moles/Vol] 139 mmol/L Normal 135 - 146 mmol/L [facility]; [facility] Triglyceride [Mass/Vol] 88 mg/dL Normal [facility]; [facility], [facility] Urea nitrogen [Mass/Vol] 16 mg/dL Normal 7 - 25 mg/dL [facility]; [facility] No Panel Informationon 04-11 BUN/CREATININE RATIO NOT APPLICABLE Normal 6 - 22 [facility]; [facility], [facility] CHOL/HDLC RATIO 3.8 Normal [facility]; [facility] eGFR NON-AFR. INDONESIAN 83 Normal [facility]; [facility] GLOBULIN 3.0 Normal 1.9 - 3.7 [facility]; [facility] NON HDL CHOLESTEROL 182 Abnormal [facility]; [facility] Laboratory - Hematology and Cell countson 01-23-2021 Basophils (Bld) [#/Vol] 0.062 10*3/uL Normal 0 - 200 {cells/uL} [facility]; [facility], [facility] Basophils/100 WBC (Bld) 0.8 % Normal [facility]; [facility], [facility] Eosinophils (Bld) [#/Vol] 0.3 10*3/uL Normal 15 - 500 {cells/uL} [facility]; [employer] [facility], [facility] Eosinophils/100 WBC (Bld) 3.9 % Normal [facility]; [employer] [facility], [facility] Erythrocyte distribution width (RBC) [Ratio] 13.3 % Normal 11.0 - 15.0 % [facility]; [facility], [facility] Hematocrit (Bld) [Volume fraction] 44.6 % Normal 35.0 - 45.0 % [facility]; [employer] [facility], [facility] Hemoglobin (Bld) [Mass/Vol] 14.6 g/dL Normal 11.7 - 15.5 g/dL [facility].; [facility], [facility]. Lymphocytes (Bld) [#/Vol] 2.025 10*3/uL Normal 850 - 3900 {cells/uL} [facility], [facility].; [facility], [facility]. Lymphocytes/100 WBC (Bld) 26.3 % Normal [facility], [facility].; [facility], [facility]. MCH (RBC) [Entitic mass] 30.4 pg Normal 27.0 - 33.0 pg [facility].; [facility], [facility]. MCHC (RBC) [Mass/Vol] 32.7 g/dL Normal 32.0 - 36.0 g/dL [facility], [facility].; [facility], [facility]. MCV (RBC) [Entitic vol] 92.9 fL Normal 80.0 - 100.0 fL [facility], [facility].; [facility], [facility]. Monocytes (Bld) [#/Vol] 0.747 10*3/uL Normal 200 - 950 {cells/uL} [facility], [facility].; [employer], [facility]. Monocytes/100 WBC (Bld) 9.7 % Normal [facility].; [facility], [facility]. Neutrophils (Bld) [#/Vol] 4.566 10*3/uL Normal 1500 - 7800 {cells/uL} [facility], [facility].; [facility], [facility]. Neutrophils/100 WBC (Bld) 59.3 % Normal [facility].; [facility], [facility]. Platelet mean volume (Bld) [Entitic vol] 9.7 fL Normal 7.5 - 12.5 fL [facility].; [facility], [facility]. Platelets (Bld) [#/Vol] 360 10*3/uL Normal 140 - 400 [facility].; [facility], [facility]. RBC (Bld) [#/Vol] 4.80 10*6/uL Normal 3.80 - 5.10 {Million/u L} [facility], [facility].; [employer], [facility]. WBC (Bld) [#/Vol] 7.7 10*3/uL Normal 3.8 - 10.8 [facility].; [facility] Laboratory - Chemistry and C hemistry - challengeon 06-18-2020 Albumin [Mass/Vol] 3.9 g/dL Normal 3.6 - 5.1 g/dL [facility]; [facility], [facility] Albumin/Globulin [Mass ratio] 1.4 {ratio} Normal 1.0 - 2.5 [facility]; [facility], [facility] ALP [Catalytic activity/Vol] 62 U/L Normal 37 - 153 U/L [facility].; [facility], [facility]. ALT [Catalytic activity/Vol] 33 U/L Abnormal 6 - 29 U/L [facility]; [facility], [facility]. AST [Catalytic activity/Vol] 35 U/L Normal 10 - 35 U/L [facility].; [facility], [facility] Bilirubin [Mass/Vol] 0.4 mg/dL Normal 0.2 - 1 .2 mg/dL [facility].; [facility], [facility] Calcium [Mass/Vol] 9.5 mg/dL Normal 8.6 - 10. 4 mg/dL [facility], [facility].; [facility], [facility]. Chloride [Moles/Vol] 108 mmol/L Normal 98 - 11 0 mmol/L [facility].; [facility], [facility]. Cholesterol [Mass/Vol] 207 mg/dL Abnormal [facility]; [facility], [facility] Cholesterol in HDL [Mass/Vol] 53 mg/dL Normal [facility].; [facility], [facility]. Cholesterol in LDL [Mass/Vol] 128 mg/dL Abnormal [facility].; [facility], [facility] CO2 [Moles/Vol] 14 mmol/L Abnormal 20 - 32 mmol/L [facility].; [facility], [facility]. Creatinine [Mass/Vol] 0.82 mg/dL Normal 0.60 - 0.93 mg/dL [facility], [facility].; [employer] [facility], [facility]. GFR/1.73 sq M.predicted among blacks MDRD (S/P/Bld) [Vol rate/Area] 84 mL/min/{1.73_m2} Normal [facility].; [employer] [facility] Glucose [Mass/Vol] 87 mg/dL Normal 65 - 99 mg/dL [facility].; [employer] [facility], [facility]. Potassium [Moles/Vol] 4.9 mmol/L Normal 3.5 - 5.3 mmol/L [facility].; [employer] Protein [Mass/Vol] 6.6 g/dL Normal 6.1 - 8.1 g/dL [employer] [facility].; [id number] Sodium [Moles/Vol] 140 mmol/L Normal 135 - 146 mmol/L [employer] [facility].; [id number] Triglyceride [Mass/Vol] 151 mg/dL Abnormal [employer] [facility]; [employer], [employer] Urea nitrogen [Mass/Vol] 13 mg/dL Normal 7 - 25 mg/dL [employer] [facility]; [id number] No Panel Informationon 06-18 [id number] SEE NOTE Normal [facility]; [id number] Work Phone: BUN/CREATININE RATIO NOT APPLICABLE Normal 6 - 22 [facility]; [employer], [employer]. CHOL/HDLC RATIO 3.9 Normal [employer] [facility]; [employer], [employer]. eGFR NON-AFR. INDONESIAN 72 Normal [facility]; [id number]TRA LAVENDER[employer]TOP [employer]UBE See Below Normal [employer] [facility].; [email or web address] Work Phone: GLOBULIN 2.7 Normal 1.9 - 3.7 [employer]; [employer], [employer] NON HDL CHOLESTEROL 154 Abnormal [facility] [employer] [facility].; [employer], [employer] Laboratory - Chemistry and C hemistry - challengeon 04-25-2019 25-hydroxyvitamin D3 [Mass/Vol] 30 ng/mL Normal 30 - 100 ng/mL [facility].; [employer], [employer] Albumin [Mass/Vol] 3.8 g/dL Normal 3.6 - 5.1 g/dL [facility].; [facility], [facility]. Albumin/Globulin [Mass ratio] 1.4 {ratio} Normal 1.0 - 2.5 [facility].; [facility], [facility] ALP [Catalytic activity/Vol] 64 U/L Normal 33 - 130 U/L [facility].; [facility], [facility] ALT [Catalytic activity/Vol] 25 U/L Normal 6 - 29 U/L [facility].; [facility], [facility]. AST [Catalytic activity/Vol] 21 U/L Normal 10 - 35 U/L [facility].; [facility], [facility] Bilirubin [Mass/Vol] 0.4 mg/dL Normal 0.2 - 1 .2 mg/dL [facility].; [facility], [facility] Calcium [Mass/Vol] 9.0 mg/dL Normal 8.6 - 10. 4 mg/dL [facility].; [facility], [facility] Chloride [Moles/Vol] 103 mmol/L Normal 98 - 11 0 mmol/L [facility].; [facility], [facility]. Cholesterol [Mass/Vol] 191 mg/dL Normal [facility]; [facility], [facility] Cholesterol in HDL [Mass/Vol] 54 mg/dL Normal [facility].; [facility], [facility]. Cholesterol in LDL [Mass/Vol] 112 mg/dL Abnormal 0 - 100 mg/dL [facility].; [facility], [facility] Cholesterol non HDL [Mass/Vol] 137 mg/dL Abnormal [facility].; [facility], [facility]. Cholesterol.total/Chol esterol in HDL [Mass ratio] 3.5 {ratio} Normal [facility].; [facility], [facility] CO2 [Moles/Vol] 26 mmol/L Normal 20 - 32 mmol/L [facility].; [facility], [facility]. Creatinine [Mass/Vol] 0.67 mg/dL Normal 0.50 - 0.99 mg/dL [facility], [facility].; [facility], [facility] GFR/1.73 sq M.predicted among blacks MDRD (S/P/Bld) [Vol rate/Area] 104 {ML/MIN/1.73M2} Normal [facility].; [facility]. GFR/1.73 sq M.predicted MDRD (S/P/Bld) [Vol rate/Area] 90 {ML/MIN/1.73M2} Normal [facility].; [employer] [facility] Globulin (S) [Mass/Vol] 2.7 g/dL Normal 1.9 - 3.7 g/dL [facility].; [facility]. Glucose [Mass/Vol] 95 mg/dL Normal 65 - 99 mg/dL [facility]; [facility]. Potassium [Moles/Vol] 4.2 mmol/L Normal 3.5 - 5.3 mmol/L [facility]; [facility] Protein [Mass/Vol] 6.5 g/dL Normal 6.1 - 8.1 g/dL [facility].; [facility]. Sodium [Moles/Vol] 136 mmol/L Normal 135 - 146 mmol/L [facility].; [facility]. Triglyceride [Mass/Vol] 137 mg/dL Normal [facility]; [employer] [facility]. Urea nitrogen [Mass/Vol] 19 mg/dL Normal 7 - 25 mg/dL [facility]; [employer] [facility], [facility] Urea nitrogen/Creatinine [Mass ratio] 28.8 mg/mg Abnormal 6 - 22 [facility]; [employer] [facility] Laboratory - Chemistry and C hemistry - challengeon 10-04-2018 Bilirubin Ql (U) Negative Normal [facility].; [employer] [facility] Ketones Ql (U) Negative Normal [facility].; [employer] [facility]. pH (U) 6.0 [pH] Normal [facility].; [employer] [facility], [facility]. Specific gravity (U) [Rel density] 1.025 Normal [facility].; [employer] [facility] Urobilinogen Qn (U) 0.2 mg/dL Normal [facility].; [email or web address]. Laboratory - Hematology and Cell countson 10-04-2018 Hemoglobin Ql (U) trace, hemolyzed Abnormal [facility].; [email or web address]. Laboratory - Specimen inform ationon 10-04-2018 Appearance (U) clear Normal [email or web address].; [email or web address]. Color (U) yellow Normal [email or web address].; [email or web address] Laboratory - Urinalysison Glucose Test strip (U) [Mass/Vol] Negative Normal [email or web address].; [email or web address]. Leukocyte esterase Test strip Ql (U) small Abnormal [email or web address].; [email or web address]. Nitrite Ql (U) Negative Normal [email or web address].; [email or web address]. Protein Ql (U) 30 mg/dL Abnormal [email or web address].; [email or web address]. Laboratory - Chemistry and C hemistry - challengeon 11-09-2017 Bilirubin Ql (U) Negative Normal [email or web address].; [email or web address]. Ketones Ql (U) Negative Normal [email or web address].; [email or web address]. pH (U) 7.0 [pH] Normal [email or web address].; [email or web address]. Specific gravity (U) [Rel density] 1.020 Normal [email or web address].; [email or web address]. Urobilinogen Qn (U) 0.2 mg/dL Normal [facility] [email or web address] Laboratory - Hematology and Cell countson 11-09-2017 Hemoglobin Ql (U) Negative Normal [email or web address].; [email or web address]. Laboratory - Specimen inform ationon 11-09-2017 Appearance (U) cloudy Abnormal [email or web address].; [email or web address]. Color (U) yellow Normal [email or web address].; [email or web address] Laboratory - Urinalysison Glucose Test strip (U) [Mass/Vol] Negative Normal [email or web address].; [email or web address]. Leukocyte esterase Test strip Ql (U) small Abnormal [email or web address].; [facility]. Nitrite Ql (U) Negative Normal [facility] [place] [facility] [employer] [employer] [facility]. Protein Ql (U) Negative Normal [facility].; [facility]. Cardiac Troponin-Ion 017 Troponin I.cardiac mass conc ng/mL Normal < 45.0 [facility] Comment on above: Result Comment: Elev [...] ####Unless otherwise noted, all testing performed by [address] [phone]: [id number] Director: Robin Hills M.D. Culture, Urineon 10-26-2017 [...] 1 FTrimeth/Sulfa S <= 20 F Normal [facility] Comment on above: Performed By: #### C BCDIF, PT, CMET, EDCTNI, LIPASE ####Unless otherwise noted, all testing performed by [address] [phone]: [id number] Director: Robin Hills M.D. Lipid Panelon 10-26-2017 Cholesterol 188 mg/dL Normal 100-199 [facility] Comment on above: Performed By: #### T SH, CTNI, LIPID ####Unless otherwise noted, all testing performed by [address] [phone]: [id number] Director: Robin Hills M.D. Cholesterol in VLDL mass conc 25 mg/dL Normal 5-40 [facility] Comment on above: Performed By: #### T SH, CTNI, LIPID ####Unless otherwise noted, all testing performed by [address] [phone]: [id number] Director: Robin Hills M.D. Cholesterol to HDL Ratio 3.2 {ratio} Normal 3.2-4.5 [facility] Comment on above: Result Comment: Bijan le Coronary Heart Disease Risk Factor (CHDRF):Average risk= 4.41/2 Average risk= 3.32 times Average risk= 7.1 Performed By: #### T SH, CTNI, LIPID ####Unless otherwise noted, all testing performed by [address] [phone]: [id number] Director: Robin Hills M.D. HDL Cholesterol 59 mg/dL Normal 40-59 [facility] Comment on above: Performed By: #### T SH, CTNI, LIPID ####Unless otherwise noted, all testing performed by [address] [phone]: [id number] Director: Robin Hills M.D. LDL Cholesterol 104 mg/dL Normal 10-150 [facility] Comment on above: Performed By: #### T SH, CTNI, LIPID ####Unless otherwise noted, all testing performed by [address] [phone]: [id number] Director: Robin Hills M.D. Triglyceride 123 mg/dL Normal 30-150 [facility] Comment on above: Performed By: #### T SH, CTNI, LIPID ####Unless otherwise noted, all testing performed by [address] [phone]: [id number] Director: Robin Hills M.D. Troponin I.cardiac mass conc No Biomarker evidence of myocardial injury within the past 14 hours. Normal [facility] Comment on above: Performed By: #### T SH, CTNI, LIPID ####Unless otherwise noted, all testing performed by [address] [phone]: [id number] Director: Robin Hills M.D. TSHon 10-26-2017 Thyroid stimulating hormone (TSH) 3.53 uIU/mL Normal 0.32-5.00 [facility] Comment on above: Result Comment: Samp les from patients routinely receiving high dose biotin therapy(100-300 mg/day) may show falsely decreased results. Please correlateclinically. Performed By: #### T SH, CTNI, LIPID ####Unless otherwise noted, all testing performed by [address] [phone]: [id number] Director: Robin Hills M.D. Urine with Indicated Culture on 10-26-2017 Bilirubin,Urine Negative Normal NEG;NEGATI VE [facility] Comment on above: Performed By: #### C BCDIF, PT, CMET, EDCTNI, LIPASE ####Unless otherwise noted, all testing performed by [facility] [address] [phone]: [id number] Director: Robin Hills M.D. Blood,Urine Negative Normal NEG;NEGATI VE [facility] Comment on above: Performed By: #### C BCDIF, PT, CMET, EDCTNI, LIPASE ####Unless otherwise noted, all testing performed by [address] [phone]: [id number] Director: Robin Hills M.D. Ketone,Urine Negative Normal NEGATIVE;N EG [facility] Comment on above: Performed By: #### C BCDIF, PT, CMET, EDCTNI, LIPASE ####Unless otherwise noted, all testing performed by [address] [phone]: [id number] Director: Robin Hills M.D. Leuk.Esterase,Urine Small Abnormal Negative [facility] Comment on above: Performed By: #### C BCDIF, PT, CMET, EDCTNI, LIPASE ####Unless otherwise noted, all testing performed by [address] [phone]: [id number] Director: Robin Hills M.D. Mucus, Urine Few Abnormal None Seen [facility] Comment on above: Performed By: #### C BCDIF, PT, CMET, EDCTNI, LIPASE ####Unless otherwise noted, all testing performed by [address] [phone]: [id number] Director: Robin Hills M.D. Nitrite,Urine Positive Abnormal NEG;NEGATI VE [facility] Comment on above: Performed By: #### C BCDIF, PT, CMET, EDCTNI, LIPASE ####Unless otherwise noted, all testing performed by [address] [phone]: [id number] Director: Robin Hills M.D. Protein,Urine Negative Normal NEGATIVE;N EG [facility] Comment on above: Performed By: #### C BCDIF, PT, CMET, EDCTNI, LIPASE ####Unless otherwise noted, all testing performed by [address] [phone]: [id number] Director: Robin Hills M.D. Specific Willis,Urine 1.010 Normal 1.003 -1.02 9 [facility] Comment on above: Performed By: #### C BCDIF, PT, CMET, EDCTNI, LIPASE ####Unless otherwise noted, all testing performed by [address] [phone]: [id number] Director: Robin Hills M.D. Squamous Epithelial 5-10 Abnormal 0-3+;NS [facility] Comment on above: Performed By: #### C BCDIF, PT, CMET, EDCTNI, LIPASE ####Unless otherwise noted, all testing performed by [address] [phone]: [id number] Director: Robin Hills M.D. Urine, bacteria in sediment Many Abnormal NS;RARE [facility] Comment on above: Performed By: #### C BCDIF, PT, CMET, EDCTNI, LIPASE ####Unless otherwise noted, all testing performed by [address] [phone]: [id number] Director: Robin Hills M.D. Urine, character Slightly Cloudy Normal [facility] Comment on above: Performed By: #### C BCDIF, PT, CMET, EDCTNI, LIPASE ####Unless otherwise noted, all testing performed by [address] [phone]: [id number] Director: Robin Hills M.D. Urine, color Yellow Normal [facility] Comment on above: Performed By: #### C BCDIF, PT, CMET, EDCTNI, LIPASE ####Unless otherwise noted, all testing performed by [address] [phone]: [id number] Director: Robin Hills M.D. Urine, erythrocytes in sediment by area 0-3 Normal 0-3+;NS [facility] Comment on above: Performed By: #### C BCDIF, PT, CMET, EDCTNI, LIPASE ####Unless otherwise noted, all testing performed by [address] [phone]: [id number] Director: Robin Hills M.D. Urine, glucose presence Negative Normal NEG;NEGATI VE [facility] Comment on above: Performed By: #### C BCDIF, PT, CMET, EDCTNI, LIPASE ####Unless otherwise noted, all testing performed by [address] [phone]: [id number] Director: Robin Hills M.D. Urine, leukocytes in sedmiment 40-60 Abnormal 0-3+;3-5+; NS [facility] Comment on above: Performed By: #### C BCDIF, PT, CMET, EDCTNI, LIPASE ####Unless otherwise noted, all testing performed by [address] [phone]: [id number] Director: Robin Hills M.D. Urine, pH 6.5 [pH] Normal 4.5-8.0 [facility] Comment on above: Performed By: #### C BCDIF, PT, CMET, EDCTNI, LIPASE ####Unless otherwise noted, all testing performed by [address] [phone]: [id number] Director: Robin Hills M.D. Urobilinogen,Urine 0.2 EU/dL Normal 0.[address] [facility] Comment on above: Performed By: #### C BCDIF, PT, CMET, EDCTNI, LIPASE ####Unless otherwise noted, all testing performed by [address] [phone]: [id number] Director: Robin Hills M.D. CBC with Diffon 10-25-2017 Basophils Auto #/vol (Bld) 0.1 K/mcL Normal 0-0.2 [facility] Comment on above: Performed By: #### C BCDIF, PT, CMET, EDCTNI, LIPASE ####Unless otherwise noted, all testing performed by [address] [phone]: [id number] Director: Robin Hills M.D. Basophils/100 WBC Auto (Bld) 0.7 % Normal [facility] Comment on above: Performed By: #### C BCDIF, PT, CMET, EDCTNI, LIPASE ####Unless otherwise noted, all testing performed by [address] [phone]: [id number] Director: Robin Hills M.D. Eosinophils 0.2 K/mcL Normal 0-0.5 [facility] Comment on above: Performed By: #### C BCDIF, PT, CMET, EDCTNI, LIPASE ####Unless otherwise noted, all testing performed by [address] [phone]: [id number] Director: Robin Hills M.D. Eosinophils/100 leukocytes 2.0 % Normal [facility] Comment on above: Performed By: #### C BCDIF, PT, CMET, EDCTNI, LIPASE ####Unless otherwise noted, all testing performed by [address] [phone]: [id number] Director: Robin Hills M.D. Erythrocyte distribution width Auto Ratio (RBC) 13.3 % Normal 10-14.4 [facility] Comment on above: Performed By: #### C BCDIF, PT, CMET, EDCTNI, LIPASE ####Unless otherwise noted, all testing performed by [address] [phone]: [id number] Director: Robin Hills M.D. Erythrocytes (RBC) 4.57 M/mcL Normal 3.7-5.[address] [facility] Comment on above: Performed By: #### C BCDIF, PT, CMET, EDCTNI, LIPASE ####Unless otherwise noted, all testing performed by [address] [phone]: [id number] Director: Robin Hills M.D. Hematocrit (HCT) 41.4 % Normal 34.4-44.8 [facility] Comment on above: Performed By: #### C BCDIF, PT, CMET, EDCTNI, LIPASE ####Unless otherwise noted, all testing performed by [address] [phone]: [id number] Director: Robin Hlils M.D. Hemoglobin mass conc (Bld) 13.7 g/dL Normal 11.6-15.4 [facility] Comment on above: Performed By: #### C BCDIF, PT, CMET, EDCTNI, LIPASE ####Unless otherwise noted, all testing performed by [place] [phone]: [id number] Director: Robin Hills M.D. Lymphocytes 2.0 K/mcL Normal 1.0-3.7 [facility] Comment on above: Performed By: #### C BCDIF, PT, CMET, EDCTNI, LIPASE ####Unless otherwise noted, all testing performed by [address] [phone]: [id number] Director: Robin Hills M.D. Lymphocytes/100 leukocytes 21.3 % Normal [facility] Comment on above: Performed By: #### C BCDIF, PT, CMET, EDCTNI, LIPASE ####Unless otherwise noted, all testing performed by [address] [phone]: [id number] Director: Robin Hills M.D. MCH 30.0 pg Normal 27.9-33.9 [facility] Comment on above: Performed By: #### C BCDIF, PT, CMET, EDCTNI, LIPASE ####Unless otherwise noted, all testing performed by [address] [phone]: [id number] Director: Robin Hills M.D. MCHC mass conc (RBC) 33.2 g/dL Normal 33.1-35.1 [facility] Comment on above: Performed By: #### C BCDIF, PT, CMET, EDCTNI, LIPASE ####Unless otherwise noted, all testing performed by [address] [phone]: [id number] Director: Robin Hills M.D. MCV 90.5 fL Normal 82.6-98.9 [facility] Comment on above: Performed By: #### C BCDIF, PT, CMET, EDCTNI, LIPASE ####Unless otherwise noted, all testing performed by [address] [phone]: [id number] Director: Robin Hills M.D. Monocytes 0.7 K/mcL High 0.1-0.6 [facility] Comment on above: Performed By: #### C BCDIF, PT, CMET, EDCTNI, LIPASE ####Unless otherwise noted, all testing performed by [address] [phone]: [id number] Director: Robin Hills M.D. Monocytes/100 leukocytes 7.1 % Normal [facility] Comment on above: Performed By: #### C BCDIF, PT, CMET, EDCTNI, LIPASE ####Unless otherwise noted, all testing performed by [address] [phone]: [id number] Director: Robin Hills M.D. Neutrophils 6.3 K/mcL Normal 1.2-6.9 [facility] Comment on above: Performed By: #### C BCDIF, PT, CMET, EDCTNI, LIPASE ####Unless otherwise noted, all testing performed by [address] [phone]: [id number] Director: Robin Hills M.D. Platelet mean volume (PMV) 7.6 fL Normal 7.0-10.6 [facility] Comment on above: Performed By: #### C BCDIF, PT, CMET, EDCTNI, LIPASE ####Unless otherwise noted, all testing performed by [address] [phone]: [id number] Director: Robin Hills M.D. Platelets 314 K/mcL Normal 162-402 [facility] Comment on above: Performed By: #### C BCDIF, PT, CMET, EDCTNI, LIPASE ####Unless otherwise noted, all testing performed by [address] [phone]: [id number] Director: Robin Hills M.D. Segmented Neut % 68.9 % Normal [facility] Comment on above: Performed By: #### C BCDIF, PT, CMET, EDCTNI, LIPASE ####Unless otherwise noted, all testing performed by [address] [phone]: [id number] Director: Robin Hills M.D. WBC (Leukocytes) 9.2 K/mcL Normal 3.4-10.6 [facility] Comment on above: Performed By: #### C BCDIF, PT, CMET, EDCTNI, LIPASE ####Unless otherwise noted, all testing performed by [address] [phone]: [id number] Director: Robin Hills M.D. CHEST (ONE VIEW ONLY)on 10-03 CHEST (ONE VIEW ONLY) Final ReportAccession No: [id number] Performed: Oct 25 2017 3:25PMExamination: CHEST (ONE VIEW ONLY)Vomiting and/or nauseaCHEST (ONE VIEW ONLY) 10/25/2017 3:25 PMFINDINGS: The lungs are well-expanded. There is groundglass density atthe left lung base. There is subtle blunting of the costophrenic sulci.Cardiac silhouette is enlarged. There is moderate thoracic spondylosis.No pneumothorax.IMPRESSION:1. Small bilateral pleural effusions.2. Borderline enlargement of cardiac silhouette.Interpreting Physician: UBALDO CHÁVEZ M.D.Trans: : cc: Normal [facility] CT BRAIN W/O CONTRASTon 10-03 CT BRAIN W/O CONTRAST Final ReportAccession No: [id number] Performed: Oct 25 2017 5:11PMExamination: CT [...] Report Signed: 10/26/2017 6:39:08 PMInterpreting Physician: FELIPE,Trans: [id number] : cc: Normal [facility] Comprehensive Metabolic Pane anish 10-25-2017 Alanine aminotransferase (ALT) 42 U/L Normal 14-65 [facility] Comment on above: Result Comment: This test result might be falsely depressed or falsely elevated onsamples drawn from patients taking Sulfasalazine and Sulfapyridine.Venipuncture should occur prior to taking either of these drugs. Performed By: #### C BCDIF, PT, CMET, EDCTNI, LIPASE ####Unless otherwise noted, all testing performed by [address] [phone]: [id number] Director: Robin Hills M.D. Albumin 3.2 g/dL Normal 3.2-5.2 [facility] Comment on above: Performed By: #### C BCDIF, PT, CMET, EDCTNI, LIPASE ####Unless otherwise noted, all testing performed by [address] [phone]: [id number] Director: Robin Hills M.D. Alkaline phosphatase (ALP) 72 U/L Normal 40-150 [facility] Comment on above: Performed By: #### C BCDIF, PT, CMET, EDCTNI, LIPASE ####Unless otherwise noted, all testing performed by [address] [phone]: [id number] Director: Robin Hills M.D. Aspartate aminotransferase (AST) 38 U/L Normal 0-45 [facility] Comment on above: Result Comment: This test result might be falsely depressed or falsely elevated onsamples drawn from patients taking Sulfasalazine and Sulfapyridine.Venipuncture should occur prior to taking either of these drugs. Performed By: #### C BCDIF, PT, CMET, EDCTNI, LIPASE ####Unless otherwise noted, all testing performed by [address] [phone]: [id number] Director: Robin Hills M.D. Bilirubin (total) 0.4 mg/dL Normal 0.3-1.2 [facility] Comment on above: Performed By: #### C BCDIF, PT, CMET, EDCTNI, LIPASE ####Unless otherwise noted, all testing performed by [address] [phone]: [id number] Director: Robin Hills M.D. Calcium 8.9 mg/dL Normal 8.4-10.2 [facility] Comment on above: Performed By: #### C BCDIF, PT, CMET, EDCTNI, LIPASE ####Unless otherwise noted, all testing performed by [address] [phone]: [id number] Director: Robin Hills M.D. Chloride 105 mmol/L Normal 98-108 [facility] Comment on above: Performed By: #### C BCDIF, PT, CMET, EDCTNI, LIPASE ####Unless otherwise noted, all testing performed by [address] [phone]: [id number] Director: Robin Hills M.D. CO2 24 mmol/L Normal 21-32 [facility] Comment on above: Performed By: #### C BCDIF, PT, CMET, EDCTNI, LIPASE ####Unless otherwise noted, all testing performed by [address] [phone]: [id number] Director: Robin Hills M.D. Creatinine 0.89 mg/dL Normal 0.60-1.20 [facility] Comment on above: Performed By: #### C BCDIF, PT, CMET, EDCTNI, LIPASE ####Unless otherwise noted, all testing performed by [address] [phone]: [id number] Director: Robin Hills M.D. eGFR (black) mL/min/{1.73_m2} Normal [facility] Comment on above: Result Comment: Afri can [place] GFR Calc Performed By: #### C BCDIF, PT, CMET, EDCTNI, LIPASE ####Unless otherwise noted, all testing performed by [address] [phone]: [id number] Director: Robin Hills M.D. eGFR (non-black) mL/min/{1.73_m2} Normal [facility] Comment on above: Result Comment: Non- [...] ####Unless otherwise noted, all testing performed by [address] [phone]: [id number] Director: Robin Hills M.D. Glucose mass conc 135 mg/dL High 70-99 [facility] Comment on above: Result Comment: This test result might be falsely depressed or falsely elevated onsamples drawn from patients taking Sulfasalazine and Sulfapyridine.Venipuncture should occur prior to taking either of these drugs. Performed By: #### C BCDIF, PT, CMET, EDCTNI, LIPASE ####Unless otherwise noted, all testing performed by [address] [phone]: [id number] Director: Robin Hills M.D. Potassium molar conc 3.8 mmol/L Normal 3.5-5.1 [facility] Comment on above: Performed By: #### C BCDIF, PT, CMET, EDCTNI, LIPASE ####Unless otherwise noted, all testing performed by [address] [phone]: [id number] Director: Robin Hills M.D. Protein 7.6 g/dL Normal 6.0-8.0 [facility] Comment on above: Performed By: #### C BCDIF, PT, CMET, EDCTNI, LIPASE ####Unless otherwise noted, all testing performed by [address] [phone]: [id number] Director: Robin Hills M.D. Sodium 138 mmol/L Normal 135-145 [facility] Comment on above: Performed By: #### C BCDIF, PT, CMET, EDCTNI, LIPASE ####Unless otherwise noted, all testing performed by [address] [phone]: [id number] Director: Robin Hills M.D. Urea nitrogen 12 mg/dL Normal 8-25 [facility] Comment on above: Performed By: #### C BCDIF, PT, CMET, EDCTNI, LIPASE ####Unless otherwise noted, all testing performed by [address] [phone]: [id number] Director: Robin Hills M.D. ED Cardiac Troponin-Ion 10-03 Troponin I.cardiac mass conc ng/mL Normal < 45 [facility] Comment on above: Result Comment: Elev [...] ####Unless otherwise noted, all testing performed by [address] [phone]: [id number] Director: Robin Hills M.D. Influenza A,B Rapid Molecula dot 10-25-2017 Influenza A Rapid Molecular Not Detected Normal Not Detected [facility] Comment on above: Performed By: #### F LUNAT ####Unless otherwise noted, all testing performed by [address] [phone]: [id number] Director: Robin Hills M.D. Influenza B Rapid Molecular Not Detected Normal Not Detected [facility] Comment on above: Performed By: #### F LUNAT ####Unless otherwise noted, all testing performed by [address] [phone]: [id number] Director: Robin Hills M.D. Lipaseon 10-25-2017 Lipase 115 U/L Normal 73-393 [facility] Comment on above: Performed By: #### C BCDIF, PT, CMET, EDCTNI, LIPASE ####Unless otherwise noted, all testing performed by [address] [phone]: [id number] Director: Robin Hills M.D. Protimeon 10-25-2017 INR Coag RelTime (PPP) 0.90 {INR} Normal [facility] Comment on above: Result Comment: The [place] [employer] recommended therapeutic rangefor Warfarin (Coumadin) therapy goals:PROPHYLAXIS/TREATMENT of:INRVenous Thrombosis, Pulmonary Embolism2.0-3.0Prevention of VTE (Orthopedic Surgery)2.0-3.0Atrial Fibrillation2.0-3.0Myocardial Infarction2.0-3.0Mechanical Prosthetic Heart Valves (Aortic position)2.0-3.0Mechanical Prosthetic Heart Valves (Mitral Position)2.5-3.5American College of Chest Physicians evidence-based clinical practiceguidelines. CHEST. 2012 (9th ed) Performed By: #### C BCDIF, PT, CMET, EDCTNI, LIPASE ####Unless otherwise noted, all testing performed by [address] [phone]: [id number] Director: Robin Hills M.D. Prothrombin time (PT) Coag time (PPP) 11.8 s Normal 11.8-14.3 [facility] Comment on above: Performed By: #### C BCDIF, PT, CMET, EDCTNI, LIPASE ####Unless otherwise noted, all testing performed by [address] [phone]: [id number] Director: Robin Hills M.D. Laboratory - Chemistry and C hemistry - challengeon 04-29-2017 Albumin [Mass/Vol] 3.9 g/dL Normal 3.6 - 5.1 g/dL [facility] [employer], [employer]. Albumin/Globulin [Mass ratio] 1.3 {ratio} Normal 1.0 - 2.5 [facility], [employer].; [employer], [employer]. ALP [Catalytic activity/Vol] 69 U/L Normal 33 - 130 U/L [employer] [facility].; [employer], [employer]. ALT [Catalytic activity/Vol] 27 U/L Normal 6 - 29 U/L [employer], [employer]. AST [Catalytic activity/Vol] 26 U/L Normal 10 - 35 U/L [employer] [employer].; [employer], [employer]. Bilirubin [Mass/Vol] 0.4 mg/dL Normal 0.2 - 1 .2 mg/dL [employer] [employer], [employer]. Calcium [Mass/Vol] 9.2 mg/dL Normal 8.6 - 10. 4 mg/dL [employer] [employer], [employer]. Chloride [Moles/Vol] 102 mmol/L Normal 98 - 11 0 mmol/L [employer] [employer] [facility].; [employer], [employer]. Cholesterol [Mass/Vol] 193 mg/dL Normal 125 - 200 mg/dL [employer] [employer], [employer].; [employer], [employer]. Cholesterol in HDL [Mass/Vol] 61 mg/dL Normal [place] [employer]. Cholesterol in LDL [Mass/Vol] 109 mg/dL Normal [employer], [employer]. Cholesterol non HDL [Mass/Vol] 132 mg/dL Normal [employer], [employer]. Cholesterol.total/Chol esterol in HDL [Mass ratio] 3.2 {ratio} Normal [employer], [employer].; [employer], [employer]. CO2 [Moles/Vol] 27 mmol/L Normal 20 - 31 mmol/L [place] [employer], [employer]. Creatinine [Mass/Vol] 0.68 mg/dL Normal 0.50 - 0.99 mg/dL [facility].; [employer] [facility], [facility]. GFR/1.73 sq M.predicted among blacks MDRD (S/P/Bld) [Vol rate/Area] 105 {ML/MIN/1.73M2} Normal [facility], [facility].; [facility], [facility]. GFR/1.73 sq M.predicted MDRD (S/P/Bld) [Vol rate/Area] 91 {ML/MIN/1.73M2} Normal [facility], [facility].; [employer], [facility]. Globulin (S) [Mass/Vol] 2.9 g/dL Normal 1.9 - 3.7 g/dL [facility].; [employer], [employer]. Glucose [Mass/Vol] 81 mg/dL Normal 65 - 99 mg/dL [facility], [facility].; [employer], [employer]. Potassium [Moles/Vol] 4.2 mmol/L Normal 3.5 - 5.3 mmol/L [facility].; [employer], [employer]. Protein [Mass/Vol] 6.8 g/dL Normal 6.1 - 8.1 g/dL [facility], [facility].; [employer], [employer]. Sodium [Moles/Vol] 138 mmol/L Normal 135 - 146 mmol/L [facility].; [employer], [employer]. Triglyceride [Mass/Vol] 117 mg/dL Normal [employer] [facility], [facility].; [employer], [employer]. Urea nitrogen [Mass/Vol] 17 mg/dL Normal 7 - 25 mg/dL [facility].; [employer], [employer]. Urea nitrogen/Creatinine [Mass ratio] 25.0 mg/mg Abnormal 6 - 22 [facility].; [employer], [employer]. Laboratory - Chemistry and C hemistry - challengeon 04-24-2016 25-hydroxyvitamin D3 [Mass/Vol] 31 ng/mL Normal 30 - 100 ng/mL [facility].; [employer] Calcium [Mass/Vol] 9.5 mg/dL Normal 8.6 - 10. 4 mg/dL [facility].; [facility] Chloride [Moles/Vol] 105 mmol/L Normal 98 - 11 0 mmol/L [facility].; [facility]. CO2 [Moles/Vol] 15 mmol/L Abnormal 19 - 30 mmol/L [facility].; [facility] Creatinine [Mass/Vol] 0.65 mg/dL Normal 0.50 - 0.99 mg/dL [facility].; [facility], [facility]. GFR/1.73 sq M.predicted among blacks MDRD (S/P/Bld) [Vol rate/Area] 107 {ML/MIN/1.73M2} Normal [facility].; [facility], [facility] GFR/1.73 sq M.predicted MDRD (S/P/Bld) [Vol rate/Area] 93 {ML/MIN/1.73M2} Normal [facility].; [employer] [facility] Glucose [Mass/Vol] 81 mg/dL Normal 65 - 99 mg/dL [facility].; [facility], [facility]. Potassium [Moles/Vol] 4.7 mmol/L Normal 3.5 - 5.3 mmol/L [facility].; [facility], [facility]. Sodium [Moles/Vol] 138 mmol/L Normal 135 - 146 mmol/L [facility].; [employer] [facility], [facility]. Urea nitrogen [Mass/Vol] 17 mg/dL Normal 7 - 25 mg/dL [facility].; [facility], [facility] Urea nitrogen/Creatinine [Mass ratio] 26.8 mg/mg Abnormal 6 - 22 [facility].; [employer] [facility], [facility]. Laboratory - Chemistry and C hemistry - challengeon 10-03-2015 25-hydroxyvitamin D3 [Mass/Vol] 22 ng/mL Abnormal 30 - 100 ng/mL [facility].; [employer] [facility], [facility]. Albumin [Mass/Vol] 3.9 g/dL Normal 3.6 - 5.1 g/dL [facility].; [employer], [facility] Albumin/Globulin [Mass ratio] 1.2 {ratio} Normal 1.0 - 2.5 [facility].; [employer] [facility]. ALP [Catalytic activity/Vol] 69 U/L Normal 33 - 130 U/L [facility].; [facility], [facility]. ALT [Catalytic activity/Vol] 34 U/L Abnormal 6 - 29 U/L [facility].; [employer] [facility], [facility]. AST [Catalytic activity/Vol] 26 U/L Normal 10 - 35 U/L [facility].; [facility], [facility]. Bilirubin [Mass/Vol] 0.5 mg/dL Normal 0.2 - 1 .2 mg/dL [facility].; [employer] [facility], [facility]. Calcium [Mass/Vol] 9.5 mg/dL Normal 8.6 - 10. 4 mg/dL [facility].; [employer] [facility], [facility]. Chloride [Moles/Vol] 102 mmol/L Normal 98 - 11 0 mmol/L [facility], [facility].; [facility], [facility]. Cholesterol [Mass/Vol] 221 mg/dL Abnormal 125 - 200 mg/dL [facility].; [facility], [facility]. Cholesterol in HDL [Mass/Vol] 60 mg/dL Normal [facility].; [employer] [facility]. Cholesterol in LDL [Mass/Vol] 131 mg/dL Abnormal [facility].; [employer] [facility], [facility]. Cholesterol non HDL [Mass/Vol] 161 mg/dL Abnormal [facility].; [employer] [facility], [facility]. Cholesterol.total/Chol esterol in HDL [Mass ratio] 3.7 {ratio} Normal [facility].; [employer] [facility]. CO2 [Moles/Vol] 26 mmol/L Normal 19 - 30 mmol/L [facility].; [employer] [facility], [facility]. Creatinine [Mass/Vol] 0.73 mg/dL Normal 0.50 - 0.99 mg/dL [facility].; [employer] [facility], [facility]. GFR/1.73 sq M.predicted among blacks MDRD (S/P/Bld) [Vol rate/Area] 99 {ML/MIN/1.73M2} Normal [facility].; [employer] [facility], [facility]. GFR/1.73 sq M.predicted MDRD (S/P/Bld) [Vol rate/Area] 86 {ML/MIN/1.73M2} Normal [facility]; [facility], [facility] Globulin (S) [Mass/Vol] 3.2 g/dL Normal 1.9 - 3.7 g/dL [facility].; [facility], [facility] Glucose [Mass/Vol] 84 mg/dL Normal 65 - 99 mg/dL [facility].; [facility], [facility] Potassium [Moles/Vol] 4.2 mmol/L Normal 3.5 - 5.3 mmol/L [facility]; [facility], [facility] Protein [Mass/Vol] 7.1 g/dL Normal 6.1 - 8.1 g/dL [facility]; [facility], [facility] Sodium [Moles/Vol] 139 mmol/L Normal 135 - 146 mmol/L [facility].; [facility], [facility] Triglyceride [Mass/Vol] 150 mg/dL Abnormal [facility]; [facility], [facility] TSH Qn 2.46 m[IU]/L Normal 0.40 - 4.50 {mIU/L} [facility].; [facility], [facility]. Urea nitrogen [Mass/Vol] 17 mg/dL Normal 7 - 25 mg/dL [facility], [facility].; [facility], [facility] Urea nitrogen/Creatinine [Mass ratio] 23.7 mg/mg Abnormal 6 - 22 [facility].; [facility], [facility] Laboratory - Chemistry and C hemistry - challengeon 04-04-2015 Calcium [Mass/Vol] 9.1 mg/dL Normal 8.6 - 10. 4 mg/dL [facility], [facility].; [facility], [facility] Chloride [Moles/Vol] 104 mmol/L Normal 98 - 11 0 mmol/L [facility], [facility].; [facility], [facility]. CO2 [Moles/Vol] 21 mmol/L Normal 19 - 30 mmol/L [facility], [facility].; [facility], [facility] Creatinine [Mass/Vol] 0.68 mg/dL Normal 0.50 - 0.99 mg/dL [facility].; [facility]. GFR/1.73 sq M.predicted among blacks MDRD (S/P/Bld) [Vol rate/Area] 106 {ML/MIN/1.73M2} Normal [facility].; [facility], [facility] GFR/1.73 sq M.predicted MDRD (S/P/Bld) [Vol rate/Area] 92 {ML/MIN/1.73M2} Normal [facility].; [facility] Glucose [Mass/Vol] 82 mg/dL Normal 65 - 99 mg/dL [facility], [facility].; [facility], [facility]. Potassium [Moles/Vol] 4.5 mmol/L Normal 3.5 - 5.3 mmol/L [facility].; [facility], [facility]. Sodium [Moles/Vol] 138 mmol/L Normal 135 - 146 mmol/L [facility], [facility].; [facility], [facility]. Urea nitrogen [Mass/Vol] 16 mg/dL Normal 7 - 25 mg/dL [facility].; [facility], [facility] Urea nitrogen/Creatinine [Mass ratio] 24.0 mg/mg Abnormal 6 - 22 [facility]; [facility], [facility]. Laboratory - Chemistry and C hemistry - challengeon 10-04-2014 Albumin [Mass/Vol] 4.0 g/dL Normal 3.6 - 5.1 g/dL [facility], [facility].; [facility], [facility]. Albumin/Globulin [Mass ratio] 1.3 {ratio} Normal 1.0 - 2.5 [facility].; [facility]. ALP [Catalytic activity/Vol] 70 U/L Normal 33 - 130 U/L [facility].; [facility], [facility]. ALT [Catalytic activity/Vol] 27 U/L Normal 6 - 29 U/L [facility], [facility].; [facility], [facility]. AST [Catalytic activity/Vol] 24 U/L Normal 10 - 35 U/L [facility], [facility].; [facility], [facility]. Bilirubin [Mass/Vol] 0.4 mg/dL Normal 0.2 - 1 .2 mg/dL [facility], [facility].; [facility], [facility]. Calcium [Mass/Vol] 9.3 mg/dL Normal 8.6 - 10. 4 mg/dL [facility], [facility].; [facility], [facility]. Chloride [Moles/Vol] 103 mmol/L Normal 98 - 11 0 mmol/L [facility], [facility].; [facility], [facility]. Cholesterol [Mass/Vol] 239 mg/dL Abnormal 125 - 200 mg/dL [facility], [facility].; [facility], [facility]. Cholesterol in HDL [Mass/Vol] 63 mg/dL Normal [facility], [facility].; [facility], [facility]. Cholesterol in LDL [Mass/Vol] 148 mg/dL Abnormal [facility].; [facility], [facility]. Cholesterol non HDL [Mass/Vol] 177 mg/dL Abnormal [facility], [facility].; [employer] [facility], [facility]. Cholesterol.total/Chol esterol in HDL [Mass ratio] 3.8 {ratio} Normal [facility], [facility].; [employer] [facility], [employer]. CO2 [Moles/Vol] 26 mmol/L Normal 19 - 30 mmol/L [facility], [facility].; [employer] [facility], [facility]. Creatinine [Mass/Vol] 0.69 mg/dL Normal 0.50 - 0.99 mg/dL [facility], [facility].; [employer] [facility], [employer] GFR/1.73 sq M.predicted among blacks MDRD (S/P/Bld) [Vol rate/Area] 106 {ML/MIN/1.73M2} Normal [facility], [facility].; [facility], [facility]. GFR/1.73 sq M.predicted MDRD (S/P/Bld) [Vol rate/Area] 91 {ML/MIN/1.73M2} Normal [facility], [facility].; [employer] Globulin (S) [Mass/Vol] 3.1 g/dL Normal 1.9 - 3.7 g/dL [facility], [facility].; [employer] Glucose [Mass/Vol] 79 mg/dL Normal 65 - 99 mg/dL [facility], [facility].; [employer] [facility], [employer] Potassium [Moles/Vol] 4.3 mmol/L Normal 3.5 - 5.3 mmol/L [facility].; [facility] Protein [Mass/Vol] 7.1 g/dL Normal 6.1 - 8.1 g/dL [facility]; [employer] [facility], [facility] Sodium [Moles/Vol] 138 mmol/L Normal 135 - 146 mmol/L [facility]; [facility] Triglyceride [Mass/Vol] 141 mg/dL Normal [facility]; [facility] Urea nitrogen [Mass/Vol] 16 mg/dL Normal 7 - 25 mg/dL [facility]; [facility] Urea nitrogen/Creatinine [Mass ratio] 22.5 mg/mg Abnormal 6 - 22 [facility]; [employer] [facility] Laboratory - Cytologyon Microscopic observation Cyto stain Nom (Cvx) Normal [facility]; [facility] Vital Signs Date Time Vital Sign Value Performing Clinician Facility 05-02-2025 08:03-0400 Body height 157.48 cm Shu Chow PA Work Phone: [facility] 05-02-2025 08:03-0400 Body mass index (BMI) [Ratio] 33 kg/m2 Shu Chow PA Work Phone: [facility] 05-02-2025 08:03-0400 Body temperature 97.7 [degF] Shu Chow PA Work Phone: [facility] 05-02-2025 08:03-0400 Body weight 81.84 kg Shu Chow PA Work Phone: [facility] 05-02-2025 08:03-0400 Diastolic blood pressure 76 mm[Hg] Shu Chow PA Work Phone: [facility] 05-02-2025 08:03-0400 Heart rate 77 /min Shu Chow PA Work Phone: [facility] 05-02-2025 08:03-0400 Respiratory rate 18 /min Shu Chow PA Work Phone: [facility] 05-02-2025 08:03-0400 SaO2% (BldA) [Mass fraction] 97 % Shu Chow PA Work Phone: [facility] 05-02-2025 08:03-0400 Systolic blood pressure 118 mm[Hg] Shu Chow PA Work Phone: [phone] [place] [address] 04-18-2025 09:29-0400 Body height 157.48 cm Shu Chow PA Work Phone: [phone] [place] [address] 04-18-2025 09:29-0400 Body mass index (BMI) [Ratio] 33.8 kg/m2 Shu Chow PA Work Phone: [phone] [address] 04-18-2025 09:29-0400 Body temperature 98.5 [degF] Shu Chow PA Work Phone: [phone] [place] [address] 04-18-2025 09:29-0400 Body weight 83.91 kg Shu Chow PA Work Phone: [phone] [place] [address] 04-18-2025 09:29-0400 Diastolic blood pressure 83 mm[Hg] Shu Chow PA Work Phone: [phone] [address] 04-18-2025 09:29-0400 Heart rate 69 /min Shu Chow PA Work Phone: [phone] [place] [address] 04-18-2025 09:29-0400 Respiratory rate 16 /min Shu Chow PA Work Phone: [phone] [place] [address] 04-18-2025 09:29-0400 SaO2% (BldA) [Mass fraction] 96 % Shu Chow PA Work Phone: [phone] [place] [address] 04-18-2025 09:29-0400 Systolic blood pressure 129 mm[Hg] Shu Chow PA Work Phone: [phone] [place] [address] 04-04-2025 08:16-0400 Body height 157.48 cm Shu Chow PA Work Phone: [phone] [place] [address] 04-04-2025 08:16-0400 Body mass index (BMI) [Ratio] 34.2 kg/m2 Shu Chow PA Work Phone: [facility] 04-04-2025 08:16-0400 Body temperature 98.2 [degF] Shu Chow PA Work Phone: [facility] 04-04-2025 08:16-0400 Body weight 84.93 kg Shu Chow PA Work Phone: [facility] 04-04-2025 08:16-0400 Diastolic blood pressure 83 mm[Hg] Shu Chow PA Work Phone: [facility] 04-04-2025 08:16-0400 Heart rate 64 /min Shu Chow PA Work Phone: [facility] 04-04-2025 08:16-0400 Respiratory rate 16 /min Shu Chow PA Work Phone: [facility] 04-04-2025 08:16-0400 SaO2% (BldA) [Mass fraction] 97 % Shu Chow PA Work Phone: [facility] 04-04-2025 08:16-0400 Systolic blood pressure 133 mm[Hg] Shu Chow PA Work Phone: [facility] 03-24-2025 08:48-0400 Body height 152.4 cm Shu Haney Chow PA-C Work Phone: [facility] [employer]; [employer] [facility]. 03-24-2025 08:48-0400 Body mass index (BMI) [Ratio] 37.11 kg/m2 Shu Lyndon Chow PA-C Work Phone: [email or web address] [facility]; [email or web address] [facility]. 03-24-2025 08:48-0400 Body surface area Derived from formula 1.83 m2 Shu J Chow PA-C Work Phone: [employer]; [employer] [facility]. 03-24-2025 08:48-0400 Body weight 86.18 kg Shu Abbotter PA-C Work Phone: [facility] [employer]; [email or web address] [facility] 03-24-2025 08:48-0400 Diastolic blood pressure 82 mm[Hg] Shu Haney Chow PA-C Work Phone: [facility] [employer]; [employer] Comment on above: Patient Position: Sitting; Cuff Location : Left Arm; Cuff Size: Standard 03-24-2025 08:48-0400 Heart rate 72 /min Shu Haney Chow PA-C Work Phone: [employer]; [employer] Comment on above: Pattern: Regular 03-24-2025 08:48-0400 Systolic blood pressure 135 mm[Hg] Shu Haney Chow PA-C Work Phone: [employer]; [employer] Comment on above: Patient Position: Sitting; Cuff Location : Left Arm; Cuff Size: Standard 03-21-2025 08:05-0400 Body height 157.48 cm Shu Chow PA Work Phone: [facility] 03-21-2025 08:05-0400 Body mass index (BMI) [Ratio] 34.7 kg/m2 Shu Chow PA Work Phone: [facility] 03-21-2025 08:05-0400 Body temperature 98.2 [degF] Shu Chow PA Work Phone: [facility] 03-21-2025 08:05-0400 Body weight 86.18 kg Shu Chow PA Work Phone: [facility] 03-21-2025 08:05-0400 Diastolic blood pressure 88 mm[Hg] Shu Chow PA Work Phone: [facility] 03-21-2025 08:05-0400 Heart rate 60 /min Shu Chow PA Work Phone: [facility] 03-21-2025 08:05-0400 Respiratory rate 16 /min Shu Chow PA Work Phone: [facility] 03-21-2025 08:05-0400 SaO2% (BldA) [Mass fraction] 98 % Shu Chow PA Work Phone: [facility] 03-21-2025 08:05-0400 Systolic blood pressure 158 mm[Hg] Shu Chow PA Work Phone: [facility] 03-20-2025 13:42-0400 Body temperature 98.5 [degF] Shu Chow PA Work Phone: [phone] [place] [address] 03-20-2025 13:42-0400 Diastolic blood pressure 61 mm[Hg] Shu Chow PA Work Phone: [phone] [place] [address] 03-20-2025 13:42-0400 Heart rate 55 /min Shu Chow PA Work Phone: [phone] [place] [address] 03-20-2025 13:42-0400 Respiratory rate 16 /min Shu Chow PA Work Phone: [facility] 03-20-2025 13:42-0400 SaO2% (BldA) [Mass fraction] 99 % Shu Chow PA Work Phone: [facility] 03-20-2025 13:42-0400 Systolic blood pressure 129 mm[Hg] Shu Chow PA Work Phone: [facility] 03-20-2025 12:08-0400 Body height 157.48 cm Shu Chow PA Work Phone: [facility] 03-20-2025 11:38-0400 Body mass index (BMI) [Ratio] 34.2 kg/m2 Shu Chow PA Work Phone: [facility] 03-20-2025 11:38-0400 Body weight 85 kg Shu Chow PA Work Phone: [facility] 03-15-2025 10:10-0400 Body height 157.48 cm Shu Chow PA Work Phone: [facility] 03-15-2025 10:10-0400 Body mass index (BMI) [Ratio] 34.2 kg/m2 Shu Chow PA Work Phone: [facility] 03-15-2025 10:10-0400 Body temperature 97.6 [degF] Shu Chow PA Work Phone: [facility] 03-15-2025 10:10-0400 Body weight 84.9 kg Shu Chow PA Work Phone: [phone] [place] [address] 03-15-2025 10:10-0400 Diastolic blood pressure 84 mm[Hg] Shu Chow PA Work Phone: [phone] [place] [address] 03-15-2025 10:10-0400 Heart rate 61 /min Shu Chow PA Work Phone: 5(756)976-787600 [place] [address] 03-15-2025 10:10-0400 Respiratory rate 18 /min Shu Chow PA Work Phone: 9(982)695-576100 [place] [address] 03-15-2025 10:10-0400 SaO2% (BldA) [Mass fraction] 96 % Shu Chow PA Work Phone: 7(918)661-572700 [place] [address] 03-15-2025 10:10-0400 Systolic blood pressure 148 mm[Hg] Shu Chow PA Work Phone: 2(061)842-734700 [place] [address] 03-15-2025 08:10-0400 Body height 157.48 cm Shu Chow PA Work Phone: [facility] 03-15-2025 08:10-0400 Body mass index (BMI) [Ratio] 34.2 kg/m2 Shu Chow PA Work Phone: [facility] 03-15-2025 08:10-0400 Body temperature 98.2 [degF] Shu Chow PA Work Phone: [facility] 03-15-2025 08:10-0400 Body weight 84.9 kg Shu Chow PA Work Phone: 2(703)325-747700 [place] [address] 03-15-2025 08:10-0400 Diastolic blood pressure 80 mm[Hg] Shu Chow PA Work Phone: 6(531)196-970256 [place] [address] 03-15-2025 08:10-0400 Heart rate 57 /min Shu Chow PA Work Phone: 8(785)193-839756 [place] [address] 03-15-2025 08:10-0400 Respiratory rate 16 /min Shu Chow PA Work Phone: 7(385)102-762156 [place] [address] 03-15-2025 08:10-0400 SaO2% (BldA) [Mass fraction] 98 % Shu Chow PA Work Phone: 7(292)832-282856 [place] [address] 03-15-2025 08:10-0400 Systolic blood pressure 151 mm[Hg] Shu Chow PA Work Phone: 2(134)801-547656 [place] [address] 03-09-2025 09:22-0400 Body mass index (BMI) [Ratio] 33.8 kg/m2 Shu Chow PA Work Phone: 4(752)414-568256 [place] [address] 03-09-2025 09:22-0400 Body temperature 97.3 [degF] Shu Chow PA Work Phone: 5(342)024-047656 [place] [address] 03-09-2025 09:22-0400 Body weight 83.97 kg Shu Chow PA Work Phone: 0(558)800-033756 [place] [address] 03-09-2025 09:22-0400 Diastolic blood pressure 85 mm[Hg] Shu Chow PA Work Phone: 8(838)242-213256 [place] [address] 03-09-2025 09:22-0400 Heart rate 63 /min Shu Chow PA Work Phone: 5(077)088-043556 [place] [address] 03-09-2025 09:22-0400 Respiratory rate 16 /min Shu Chow PA Work Phone: 0(945)943-176256 [place] [address] 03-09-2025 09:22-0400 SaO2% (BldA) [Mass fraction] 100 % Shu Chow PA Work Phone: 7(493)598-370900 [place] [address] 03-09-2025 09:22-0400 Systolic blood pressure 157 mm[Hg] Shu JAUREGUI Work Phone: [facility] 02-21-2025 13:21-0400 Body height 154.9 cm Sachi Chaka MBBS Work Phone: [facility] 02-21-2025 13:21-0400 Body mass index (BMI) [Ratio] 35.64 kg/m2 Sachi Chaka MBBS Work Phone: [facility] 02-21-2025 13:21-040 Body temperature 98.01 [degF] Sachi Chaka MBBS Work Phone: [facility] 02-21-2025 13:21040 Body weight 85.55 kg Sachi Chaka MBBS Work Phone: [facility] 02-21-2025 13:21-0400 Diastolic blood pressure 74 mm[Hg] Sachi Chaka MBBS Work Phone: [facility] 02-21-2025 13:21-0400 Heart rate 75 /min Sachi Chaka MBBS Work Phone: [facility] 02-21-2025 13:21-0400 Respiratory rate 18 /min Sachi Chaka MBBS Work Phone: [facility] 02-21-2025 13:21-0400 SaO2% (BldA) [Mass fraction] 97 % Sachi Chaka MBBS Work Phone: [facility] Comment on above: room air 02-21-2025 13:21-0400 Systolic blood pressure 166 mm[Hg] Sachi Chaka MBBS Work Phone: [facility] 02-01-2025 14:11040 Body height 152.4 cm Amy HERNANDEZ [facility], [facility]. 02-01-2025 14:11-0400 Body mass index (BMI) [Ratio] 36.72 kg/m2 Amy Soriano [facility].; [facility]. 02-01-2025 14:110400 Body surface area Derived from formula 1.82 m2 Amy Soriano [facility].; [facility] 02-01-2025 14:110400 Body weight 85.28 kg Amy Soriano [facility].; [employer] [facility]. 02-01-2025 14:110400 Diastolic blood pressure 83 mm[Hg] Amy Soriano [facility].; [employer] [facility]. Comment on above: Patient Position: Sitting; Cuff Location : Left Arm; Cuff Size: Standard 02-01-2025 14:110400 Heart rate 75 /min Amy Soriano [facility].; [employer] [facility]. Comment on above: Pattern: Regular 02-01-2025 14:110400 Systolic blood pressure 121 mm[Hg] Amy Soriano [facility].; [employer] [facility]. Comment on above: Patient Position: Sitting; Cuff Location : Left Arm; Cuff Size: Standard 01-28-2025 08:07-0400 Body temperature 97.81 [degF] Sachi Rosas MBBS Work Phone: [facility] 01-28-2025 08:07-0400 Diastolic blood pressure 74 mm[Hg] Sachi Rosas MBBS Work Phone: [facility] 01-28-2025 08:07-0400 Heart rate 68 /min Sachi Chaka MBBS Work Phone: [facility] 01-28-2025 08:07-0400 Respiratory rate 16 /min Sachimele Rosas MBBS Work Phone: [facility] 01-28-2025 08:07-0400 SaO2% (BldA) [Mass fraction] 95 % Sachimele Rosas MBBS Work Phone: [facility] 01-28-2025 08:07-0400 Systolic blood pressure 170 mm[Hg] Sachi Chaka MBBS Work Phone: [facility] 01-23-2025 05:58-0400 Body height 154.9 cm Sachi Chaka MBBS Work Phone: [facility] 01-23-2025 05:58-0400 Body mass index (BMI) [Ratio] 35.52 kg/m2 Sachi Chaka MBBS Work Phone: [facility] 01-23-2025 05:58-0400 Body weight 85.28 kg Sachi Chaka MBBS Work Phone: [facility] 01-10-2025 15:20-0400 Diastolic blood pressure 72 mm[Hg] Mackenzie Takhtay [employer]GER [employer] Work Phone: [facility] 01-10-2025 15:20-0400 Systolic blood pressure 128 mm[Hg] Mackenzie Takhtay MANAGER [employer] Work Phone: [facility] 01-10-2025 14:34-0400 Body height 154.9 cm Mackenzie Takhtay MANAGER [employer] Work Phone: [facility] 01-10-2025 14:34-0400 Body mass index (BMI) [Ratio] 36.15 kg/m2 Mackenzie Takhtay MANAGER [employer] Work Phone: [facility] 01-10-2025 14:34-0400 Body temperature 97.9 [degF] Mackenzie Takhtay MANAGER [employer] Work Phone: [facility] 01-10-2025 14:34-0400 Body weight 86.77 kg Mackenzie Takhtay MANAGER [employer] Work Phone: [facility] 01-10-2025 14:34-0400 Heart rate 70 /min Mackenzie Takhtay MANAGER [employer] Work Phone: [facility] 01-10-2025 14:34-0400 Respiratory rate 16 /min Mackenzie Reyes MANAGER [employer] Work Phone: [facility] 01-10-2025 14:34-0400 SaO2% (BldA) [Mass fraction] 98 % Mackenzie Reyes MANAGER [employer] Work Phone: [facility] 12-31-2024 08:03-0500 Body height 152.4 cm Sachi Chaka MBBS Work Phone: [facility] 12-31-2024 08:03-0500 Diastolic blood pressure 79 mm[Hg] Sachi Chaka MBBS Work Phone: [facility] 12-31-2024 08:03-0500 Heart rate 70 /min Sachi Chaka MBBS Work Phone: [facility] 12-31-2024 08:03-0500 Systolic blood pressure 176 mm[Hg] Sachi Chaka MBBS Work Phone: [facility] 12-06-2024 13:06-0500 Body height 154 cm Sachi Chaka MBBS Work Phone: [facility] 12-06-2024 13:06-0500 Body mass index (BMI) [Ratio] 36.76 kg/m2 Sachi Chaka MBBS Work Phone: [facility] 12-06-2024 13:06-0500 Body temperature 98.1 [degF] Sachi Chaka MBBS Work Phone: [facility] 12-06-2024 13:06-0500 Body weight 87.18 kg Sachi Chaka MBBS Work Phone: [facility] Comment on above: w/o shoes 12-06-2024 13:06-0500 Diastolic blood pressure 77 mm[Hg] Sachi Chaka MBBS Work Phone: [facility] 12-06-2024 13:06-0500 Heart rate 74 /min Sachi Chaka MBBS Work Phone: [facility] 12-06-2024 13:06-0500 Respiratory rate 18 /min Sachi Chaka MBBS Work Phone: [facility] 12-06-2024 13:06-0500 SaO2% (BldA) [Mass fraction] 95 % Sachi Chaka MBBS Work Phone: [facility] 12-06-2024 13:06-0500 Systolic blood pressure 177 mm[Hg] Sachi Chaka MBBS Work Phone: [facility] 06-27-2024 13:56-0400 Body height 152.4 cm Roverto Lynch [facility], [facility].; [email or web address], [facility]. 06-27-2024 13:56-0400 Body mass index (BMI) [Ratio] 37.5 kg/m2 Roverto Rausch Keila [facility], [facility].; [email or web address] [facility], [facility]. 06-27-2024 13:56-0400 Body surface area Derived from formula 1.83 m2 Roverto Lynch [facility], [facility].; [email or web address] [facility], [facility]. 06-27-2024 13:56-0400 Body weight 87.09 kg Roverto Lynch [facility], [facility].; [email or web address]. 06-27-2024 13:56-0400 Diastolic blood pressure 78 mm[Hg] Roverto Lynch [facility], [facility].; [email or web address], [employer]. Comment on above: Patient Position: Sitting; Cuff Location : Left Arm; Cuff Size: Standard 06-27-2024 13:56-0400 Heart rate 72 /min Roverto Lynch [facility] [email or web address]. Comment on above: Pattern: Regular 06-27-2024 13:56-0400 Systolic blood pressure 130 mm[Hg] Roverto Lynch LPN [employer].; [employer]. Comment on above: Patient Position: Sitting; Cuff Location : Left Arm; Cuff Size: Standard 02-05-2024 10:44-0400 Body height 152.4 cm Shu J Chow PA-C Work Phone: [email or web address].; [email or web address]. 02-05-2024 10:44-0400 Body mass index (BMI) [Ratio] 41.21 kg/m2 Shu J Chow PA-C Work Phone: [email or web address].; [employer] [facility]. 02-05-2024 10:44-0400 Body surface area Derived from formula 1.91 m2 Shu J Chow PA-C Work Phone: [email or web address].; [employer] [facility]. 02-05-2024 10:44-0400 Body weight 95.71 kg Shu J Chow PA-C Work Phone: [email or web address].; [email or web address]. 02-05-2024 10:44-0400 Diastolic blood pressure 82 mm[Hg] Shu J Chow PA-C Work Phone: [email or web address].; [email or web address]. Comment on above: Patient Position: Sitting; Cuff Location : Left Arm; Cuff Size: Standard 02-05-2024 10:44-0400 Heart rate 71 /min Shu J Chow PA-C Work Phone: [email or web address].; [email or web address]. Comment on above: Pattern: Regular 02-05-2024 10:44-0400 Systolic blood pressure 124 mm[Hg] Shu J Chow PA-C Work Phone: [email or web address].; [email or web address]. Comment on above: Patient Position: Sitting; Cuff Location : Left Arm; Cuff Size: Standard 11-23-2023 10:25-0500 Body height 152.4 cm Roverto M Keila [facility], [facility].; [facility], [facility]. 11-23-2023 10:25-0500 Body mass index (BMI) [Ratio] 43.55 kg/m2 Roverto Lynch [facility] [employer] [facility] 11-23-2023 10:25-0500 Body surface area Derived from formula 1.96 m2 Roverto Lynch [facility] [employer] [facility]. 11-23-2023 10:25-0500 Body weight 101.15 kg Roverto Lynch [facility], [facility].; [employer], [facility]. 11-23-2023 10:25-0500 Diastolic blood pressure 78 mm[Hg] Roverto Lynch [facility], [facility].; [email or web address] Comment on above: Patient Position: Sitting; Cuff Location : Right Arm; Cuff Size: Standard 11-23-2023 10:25-0500 Heart rate 67 /min Roverto Lynch [facility], [facility].; [email or web address], [employer]. Comment on above: Pattern: Regular 11-23-2023 10:25-0500 Systolic blood pressure 139 mm[Hg] Roverto Lynch [facility], [facility].; [employer] Comment on above: Patient Position: Sitting; Cuff Location : Right Arm; Cuff Size: Standard 07-27-2023 09:30-0400 Body height 152.4 cm Roverto Lynch [facility], [facility].; [employer] 07-27-2023 09:30-0400 Body mass index (BMI) [Ratio] 45.89 kg/m2 Roverto Lynch [facility], [facility].; [employer] [facility], [facility]. 07-27-2023 09:30-0400 Body surface area Derived from formula 2 m2 Roverto Lynch [facility], [facility].; [employer] [facility]. 07-27-2023 09:30-0400 Body weight 106.6 kg Roverto Lynch [facility] [employer] [facility].; [email or web address]. 07-27-2023 09:30-0400 Diastolic blood pressure 75 mm[Hg] Roverto Lynch LPN [facility] [employer].; [email or web address] [facility]. Comment on above: Patient Position: Sitting; Cuff Location : Left Arm; Cuff Size: Standard 07-27-2023 09:30-0400 Heart rate 81 /min Roverto Lynch LPN [facility], [employer].; [email or web address]. Comment on above: Pattern: Regular 07-27-2023 09:30-0400 Systolic blood pressure 136 mm[Hg] Roverto Lynch LPN [facility].; [email or web address]. Comment on above: Patient Position: Sitting; Cuff Location : Left Arm; Cuff Size: Standard 01-29-2023 09:32-0400 Body weight 105.24 kg Shu JAUREGUI-C Work Phone: [employer] [facility].; [email or web address]. 01-29-2023 09:32-0400 Diastolic blood pressure 84 mm[Hg] Shu JAUREGUI-C Work Phone: [employer] [facility].; [email or web address]. Comment on above: Patient Position: Sitting; Cuff Location : Left Arm; Cuff Size: Standard 01-29-2023 09:32-0400 Heart rate 70 /min Shu Chow PA-C Work Phone: [employer] [facility].; [email or web address]. Comment on above: Pattern: Regular 01-29-2023 09:32-0400 Systolic blood pressure 153 mm[Hg] Shu JAUREGUI-C Work Phone: [employer] [facility].; [email or web address]. Comment on above: Patient Position: Sitting; Cuff Location : Left Arm; Cuff Size: Standard 08-01-2022 10:20-0400 Body height 152.4 cm Roverto Lynch LPN [employer] [facility], [employer].; [email or web address]. 08-01-2022 10:20-0400 Body mass index (BMI) [Ratio] 43.94 kg/m2 Roverto Lynch LPN [facility], [facility].; [facility], [facility]. 08-01-2022 10:20-0400 Body surface area Derived from formula 1.96 m2 Roverto Aparicioach [facility], [facility].; [employer] [facility] 08-01-2022 10:20-0400 Body weight 102.06 kg Roverto Lynch [facility], [facility].; [employer] [facility]. 08-01-2022 10:20-0400 Diastolic blood pressure 82 mm[Hg] Roverto Lynch [facility], [facility].; [email or web address]. Comment on above: Patient Position: Sitting; Cuff Location : Left Arm; Cuff Size: Standard 08-01-2022 10:20-0400 Heart rate 71 /min Roverto Lynch [facility], [facility].; [email or web address]. Comment on above: Pattern: Regular 08-01-2022 10:20-0400 Systolic blood pressure 137 mm[Hg] Roverto Lynch [facility], [facility].; [email or web address]. Comment on above: Patient Position: Sitting; Cuff Location : Left Arm; Cuff Size: Standard 01-23-2022 13:110400 Body height 152.4 cm Roverto Lynch [employer] [facility], [facility].; [email or web address]. 01-23-2022 13:11-0400 Body mass index (BMI) [Ratio] 42.97 kg/m2 Roverto Lynch [facility], [facility].; [employer] 01-23-2022 13:110400 Body surface area Derived from formula 1.94 m2 Roverto Lynch [facility], [facility].; [employer] [facility]. 01-23-2022 13:110400 Body weight 99.79 kg Roverto Lynch [facility], [facility].; [email or web address]. 01-23-2022 13:11-0400 Diastolic blood pressure 72 mm[Hg] Roverto Lynch [facility].; [email or web address]. Comment on above: Patient Position: Sitting; Cuff Location : Left Arm; Cuff Size: Standard 01-23-2022 13:11-0400 Heart rate 72 /min Roverto Allenlabach [facility], [facility].; [employer] [facility]. Comment on above: Pattern: Regular 01-23-2022 13:11-0400 Systolic blood pressure 121 mm[Hg] Roverto Aparicioach [employer] [facility].; [email or web address]. Comment on above: Patient Position: Sitting; Cuff Location : Left Arm; Cuff Size: Standard 01-23-2021 10:55-0400 Body height 152.4 cm [facility]overto Rausch [facility], [employer].; [employer] [facility]. 01-23-2021 10:55-0400 Body mass index (BMI) [Ratio] 46.09 kg/m2 Roverto Rausch Keila [facility] [employer] [facility]. 01-23-2021 10:55-0400 Body surface area Derived from formula 2 m2 Roverto M Keila [facility], [facility].; [email or web address]. 01-23-2021 10:55-0400 Body weight 107.05 kg Roverto Lynch [facility], [facility].; [employer]. 01-23-2021 10:55-0400 Diastolic blood pressure 84 mm[Hg] Roverto Allenlabach [facility], [employer].; [email or web address]. Comment on above: Patient Position: Sitting; Cuff Location : Right Arm; Cuff Size: Standard 01-23-2021 10:55-0400 Heart rate 71 /min Roverto Allenlabach [employer] [facility], [employer].; [email or web address]. Comment on above: Pattern: Regular 01-23-2021 10:55-0400 Systolic blood pressure 151 mm[Hg] Roverto Aparicioach [employer] [facility].; [email or web address]. Comment on above: Patient Position: Sitting; Cuff Location : Right Arm; Cuff Size: Standard 01-09-2021 09:51-0500 Body height 152.4 cm Shu Chow PA-C Work Phone: [employer] [facility] [employer]; [employer] [facility]. 01-09-2021 09:51-0500 Body mass index (BMI) [Ratio] 46.87 kg/m2 Shu Abbotter PA-C Work Phone: [facility] [employer] [facility]. 01-09-2021 09:51-0500 Body surface area Derived from formula 2.02 m2 Shu Abbotter PA-C Work Phone: [employer] [facility] [employer]; [employer] [facility]. 01-09-2021 09:51-0500 Body weight 108.86 kg Shu Abbotter PA-C Work Phone: [employer]; [employer] [facility]. 01-09-2021 09:51-0500 Diastolic blood pressure 79 mm[Hg] Shu Abbotter PA-C Work Phone: [employer]; [email or web address]. Comment on above: Patient Position: Sitting; Cuff Location : Left Arm; Cuff Size: Standard 01-09-2021 09:51-0500 Heart rate 66 /min Shu Abbotter PA-C Work Phone: [employer]; [email or web address]. Comment on above: Pattern: Regular 01-09-2021 09:51-0500 Systolic blood pressure 127 mm[Hg] Shu Abbotter PA-C Work Phone: [employer]; [email or web address]. Comment on above: Patient Position: Sitting; Cuff Location : Left Arm; Cuff Size: Standard 06-18-2020 08:32-0400 Body height 152.4 cm Shu Haney Chow PA-C Work Phone: [employer]; [email or web address]. 06-18-2020 08:32-0400 Body mass index (BMI) [Ratio] 44.92 kg/m2 Suh Haney Chow PA-C Work Phone: [employer]; [email or web address]. 06-18-2020 08:32-0400 Body surface area Derived from formula 1.98 m2 Shu Haney Chow PA-C Work Phone: [employer]; [email or web address]. 06-18-2020 08:32-0400 Body weight 104.33 kg Shu Haney Chow PA-C Work Phone: [email or web address].; [email or web address] 06-18-2020 08:32-0400 Diastolic blood pressure 80 mm[Hg] Shu Haney Chow PA-C Work Phone: [employer]; [email or web address]. Comment on above: Patient Position: Sitting; Cuff Location : Left Arm; Cuff Size: Standard 06-18-2020 08:32-0400 Heart rate 64 /min Shu Haney Chow PA-C Work Phone: [employer]; [email or web address]. Comment on above: Pattern: Regular 06-18-2020 08:32-0400 Inhaled oxygen concentration 20 % Shu Lyndon Chow PA-C Work Phone: [employer]; [email or web address]. Comment on above: Room air 06-18-2020 08:32-0400 Inhaled oxygen concentration 21 % Shu Lyndon Chow PA-C Work Phone: [employer]; [email or web address]. Comment on above: Room air 06-18-2020 08:32-0400 SaO2% (BldA) [Mass fraction] 99 % Shu Haney Chow PA-C Work Phone: [employer]; [email or web address]. 06-18-2020 08:32-0400 Systolic blood pressure 128 mm[Hg] Shu Lyndon Chow PA-C Work Phone: [employer]; [email or web address]. Comment on above: Patient Position: Sitting; Cuff Location : Left Arm; Cuff Size: Standard 01-02-2020 11:42-0500 Body height 152.4 cm Irish Cruzgretchen PINEDA [facility], [facility].; [employer] [facility], [facility]. 01-02-2020 11:42-0500 Body mass index (BMI) [Ratio] 45.11 kg/m2 Irish Anthonygretchen [facility], [facility].; [employer] 01-02-2020 11:42-0500 Body surface area Derived from formula 1.98 m2 Irish Solano LPN [facility], [facility].; [employer] [facility], [facility] 01-02-2020 11:42-0500 Body temperature 98.1 [degF] Irish Wegretchen [facility], [facility].; [email or web address] Comment on above: Method: Tympanic 01-02-2020 11:42-0500 Body weight 104.78 kg Irishkatherine Solano LPN [facility], [facility].; [email or web address] 01-02-2020 11:42-0500 Diastolic blood pressure 76 mm[Hg] Irish [facility] [employer] [facility], [facility].; [email or web address], [employer]. Comment on above: Patient Position: Sitting; Cuff Location : Left Arm; Cuff Size: Standard 01-02-2020 11:42-0500 Heart rate 72 /min Irishkatherine Solano LPN [facility], [facility].; [email or web address] Comment on above: Pattern: Regular 01-02-2020 11:42-0500 Inhaled oxygen concentration 20 % Irish Solano LPN [facility], Inc.; [email or web address] Comment on above: Room air 01-02-2020 11:42-0500 Inhaled oxygen concentration 21 % Irish Solano LPN [employer] [facility], [facility].; [email or web address], [employer]. Comment on above: Room air 01-02-2020 11:42-0500 SaO2% (BldA) [Mass fraction] 95 % Irish Solano LPN [employer] [facility], Inc.; [email or web address] 01-02-2020 11:42-0500 Systolic blood pressure 130 mm[Hg] Irish Solano LPN [employer] [facility], Inc.; [email or web address]. Comment on above: Patient Position: Sitting; Cuff Location : Left Arm; Cuff Size: Standard 06-15-2019 10:47-0400 Body height 152.4 cm Irish Wegretchen PINEDA [employer] [facility], Inc.; [employer], [employer] 06-15-2019 10:47-0400 Body mass index (BMI) [Ratio] 43.94 kg/m2 Irish Wegretchen PINEDA [email or web address], [email or web address] 06-15-2019 10:47-0400 Body surface area Derived from formula 1.96 m2 Irish Russ PINEDA [email or web address], [employer].; [employer], [employer]. 06-15-2019 10:47-0400 Body weight 102.06 kg Irish Russ PINEDA [employer], [employer].; [employer], [employer]. 06-15-2019 10:47-0400 Diastolic blood pressure 84 mm[Hg] Irish Russ PINEDA [email or web address], [employer], [employer]. Comment on above: Patient Position: Sitting; Cuff Location : Left Arm; Cuff Size: Standard 06-15-2019 10:47-0400 Heart rate 71 /min Irish Russ PINEDA [email or web address], [employer]. Comment on above: Pattern: Regular 06-15-2019 10:47-0400 Systolic blood pressure 130 mm[Hg] Irish Wegretchen PINEDA [employer], [employer].; [employer], [employer]. Comment on above: Patient Position: Sitting; Cuff Location : Left Arm; Cuff Size: Standard 11-04-2018 10:45-0500 Body height 152.4 cm Irish Wegretchen PINEDA [email or web address], [email or web address] 11-04-2018 10:45-0500 Body mass index (BMI) [Ratio] 43.55 kg/m2 Irish Russ PINEDA [email or web address], [employer].; [email or web address] 11-04-2018 10:45-0500 Body surface area Derived from formula 1.96 m2 Irish Solano LPN [email or web address], [employer].; [email or web address]. 11-04-2018 10:45-0500 Body weight 101.15 kg Irish Sanchezshiva PINEDA [email or web address], [employer].; [email or web address]. 11-04-2018 10:45-0500 Diastolic blood pressure 80 mm[Hg] Irish Cruzgretchen PINEDA [email or web address], [employer].; [email or web address]. Comment on above: Patient Position: Sitting; Cuff Location : Left Arm; Cuff Size: Standard 11-04-2018 10:45-0500 Heart rate 77 /min Irish Cruzgretchen PINEDA [email or web address], [employer].; [email or web address]. Comment on above: Pattern: Regular 11-04-2018 10:45-0500 Inhaled oxygen concentration 20 % Irish Cruzgretchen PINEDA [email or web address], [employer].; [email or web address]. Comment on above: Room air 11-04-2018 10:45-0500 Inhaled oxygen concentration 21 % Irish Cruzgretchen PINEDA [email or web address], [employer].; [email or web address]. Comment on above: Room air 11-04-2018 10:45-0500 SaO2% (BldA) [Mass fraction] 97 % Irish Hopkinsstefanie [facility], Inc.; [email or web address]. 11-04-2018 10:45-0500 Systolic blood pressure 127 mm[Hg] Irish Cruzgretchen PINEDA [email or web address], [employer].; [email or web address]. Comment on above: Patient Position: Sitting; Cuff Location : Left Arm; Cuff Size: Standard 10-04-2018 08:24-0500 Body height 152.4 cm [employer] PA-C Work Phone: [email or web address].; [email or web address] 10-04-2018 08:24-0500 Body mass index (BMI) [Ratio] 43.36 kg/m2 [employer] PA-C Work Phone: [email or web address].; [email or web address]. 10-04-2018 08:24-0500 Body surface area Derived from formula 1.95 m2 [employer] PA-C Work Phone: [employer]; [employer] 10-04-2018 08:24-0500 Body temperature 98 [degF] Shu Abbotter PA-C Work Phone: [employer]; [email or web address]. Comment on above: Method: Tympanic 10-04-2018 08:24-0500 Body weight 100.7 kg Shu Abbotter PA-C Work Phone: [employer]; [email or web address]. 10-04-2018 08:24-0500 Diastolic blood pressure 84 mm[Hg] Shu Chow PA-C Work Phone: [employer]; [email or web address]. Comment on above: Patient Position: Sitting; Cuff Location : Left Arm; Cuff Size: Standard 10-04-2018 08:24-0500 Heart rate 75 /min Shu Abbotter PA-C Work Phone: [employer]; [email or web address]. Comment on above: Pattern: Regular 10-04-2018 08:24-0500 Systolic blood pressure 150 mm[Hg] Shu Chow PA-C Work Phone: [employer]; [email or web address]. Comment on above: Patient Position: Sitting; Cuff Location : Left Arm; Cuff Size: Standard 04-22-2018 09:53-0400 Body height 152.4 cm Shu Haney Chow PA-C Work Phone: [employer]; [email or web address]. 04-22-2018 09:53-0400 Body mass index (BMI) [Ratio] 42.38 kg/m2 Shu Haney Chow PA-C Work Phone: [employer]; [email or web address]. 04-22-2018 09:53-0400 Body surface area Derived from formula 1.93 m2 Shu J Chow PA-C Work Phone: [employer]; [employer] 04-22-2018 09:53-0400 Body weight 98.43 kg Shu Abbotter PA-C Work Phone: [email or web address].; [email or web address]. 04-22-2018 09:53-0400 Diastolic blood pressure 89 mm[Hg] Shu Abbotter PA-C Work Phone: [email or web address].; [email or web address]. Comment on above: Patient Position: Sitting; Cuff Location : Left Arm; Cuff Size: Standard 04-22-2018 09:53-0400 Heart rate 73 /min Shu Abbotter PA-C Work Phone: [employer]; [email or web address]. Comment on above: Pattern: Regular 04-22-2018 09:53-0400 Inhaled oxygen concentration 20 % Shu Haney Chow PA-C Work Phone: [employer]; [email or web address]. Comment on above: Room air 04-22-2018 09:53-0400 Inhaled oxygen concentration 21 % Shu Haney Chow PA-C Work Phone: [email or web address].; [email or web address]. Comment on above: Room air 04-22-2018 09:53-0400 SaO2% (BldA) [Mass fraction] 97 % Shu Abbotter PA-C Work Phone: [email or web address].; [employer] 04-22-2018 09:53-0400 Systolic blood pressure 142 mm[Hg] Shu Haney Chow PA-C Work Phone: [email or web address].; [email or web address]. Comment on above: Patient Position: Sitting; Cuff Location : Left Arm; Cuff Size: Standard 12-10-2017 10:05-0500 Body height 152.4 cm Roverto Lynch LPN [employer], [employer] 12-10-2017 10:05-0500 Body mass index (BMI) [Ratio] 42.77 kg/m2 [facility]overto Lynch [facility].; [employer] 12-10-2017 10:05-0500 Body surface area Derived from formula 1.94 m2 Roverto Rausch Keila PINEDA [employer] [facility], Inc.; [employer], Inc. 12-10-2017 10:05-0500 Body weight 99.34 kg Roverto Rausch Keila PINEDA [employer] [facility], Inc.; [employer] 12-10-2017 10:05-0500 Diastolic blood pressure 86 mm[Hg] Roverto Rausch Keila [facility] [employer], [employer].; [employer] Comment on above: Patient Position: Sitting; Cuff Location : Right Arm; Cuff Size: Standard 12-10-2017 10:05-0500 Heart rate 83 /min Roverto Rausch Keila [facility] [employer] [facility], Inc.; [employer], [employer]. Comment on above: Pattern: Regular 12-10-2017 10:05-0500 Systolic blood pressure 159 mm[Hg] Roverto Rausch Keila PINEDA [employer], [employer].; [employer] Comment on above: Patient Position: Sitting; Cuff Location : Right Arm; Cuff Size: Standard 11-09-2017 10:31-0500 Body height 152.4 cm Irish Solano LPN [employer], [employer].; [employer] 11-09-2017 10:31-0500 Body mass index (BMI) [Ratio] 42.57 kg/m2 Irish Solano LPN [employer], [employer].; [email or web address], [employer] 11-09-2017 10:31-0500 Body surface area Derived from formula 1.94 m2 Irish Solano LPN [employer], [employer].; [employer], [employer]. 11-09-2017 10:31-0500 Body weight 98.88 kg Irish Russ [email or web address] Inc.; [employer] 11-09-2017 10:31-0500 Diastolic blood pressure 93 mm[Hg] Irish Solano LPN [email or web address], [employer].; [email or web address]. Comment on above: Patient Position: Sitting; Cuff Location : Left Arm; Cuff Size: Standard 11-09-2017 10:31-0500 Heart rate 72 /min Irish Cruzgretchen PINEDA [email or web address], [employer].; [employer], [employer]. Comment on above: Pattern: Regular 11-09-2017 10:31-0500 Systolic blood pressure 156 mm[Hg] Irish Hopkinsstefanie PINEDA [email or web address] [facility], Inc.; [employer], Inc. Comment on above: Patient Position: Sitting; Cuff Location : Left Arm; Cuff Size: Standard 04-29-2017 11:02-0400 Body height 152.4 cm Irish Cruzgretchen PINEDA [employer], [employer].; [employer], [employer]. 04-29-2017 11:02-0400 Body mass index (BMI) [Ratio] 41.99 kg/m2 Irish Cruzgretchen [facility] [employer], [employer].; [employer], [employer]. 04-29-2017 11:02-0400 Body surface area Derived from formula 1.93 m2 Irish Anthonygretchen [email or web address], Inc.; [employer], [employer]. 04-29-2017 11:02-0400 Body weight 97.52 kg Irish Cruzgretchen [email or web address], Inc.; [employer], [employer]. 04-29-2017 11:02-0400 Diastolic blood pressure 84 mm[Hg] Irish Cruzluis angelshiva [email or web address], [employer].; [employer], Inc. Comment on above: Patient Position: Sitting; Cuff Location : Left Arm; Cuff Size: Standard 04-29-2017 11:02-0400 Heart rate 64 /min Irish Cruzgretchen PINEDA [email or web address], [employer].; [email or web address]. Comment on above: Pattern: Regular 04-29-2017 11:02-0400 Systolic blood pressure 162 mm[Hg] Irish Solano [email or web address], [employer].; [email or web address]. Comment on above: Patient Position: Sitting; Cuff Location : Left Arm; Cuff Size: Standard 10-09-2016 12:49-0500 Body height 154.94 cm Hiral Dillon RN [employer], [employer].; [employer], [employer]. 10-09-2016 12:49-0500 Body mass index (BMI) [Ratio] 39.87 kg/m2 Hiral Dillon RN [email or web address].; [email or web address]. 10-09-2016 12:49-0500 Body surface area Derived from formula 1.93 m2 Hiral Dillon RN [email or web address].; [email or web address]. 10-09-2016 12:49-0500 Body temperature 97.6 [degF] Hiral Dillon RN [email or web address].; [email or web address]. Comment on above: Method: Tympanic 10-09-2016 12:49-0500 Body weight 95.71 kg Hiral Dillon RN [email or web address].; [email or web address]. 10-09-2016 12:49-0500 Diastolic blood pressure 89 mm[Hg] Hiral Dillon RN [email or web address].; [email or web address]. Comment on above: Patient Position: Sitting; Cuff Location : Right Arm; Cuff Size: Standard 10-09-2016 12:49-0500 Heart rate 78 /min Hiral Dillon RN [email or web address].; [email or web address]. Comment on above: Pattern: Regular 10-09-2016 12:49-0500 Inhaled oxygen concentration 20 % Shu Chow PA-C Work Phone: [employer]; [email or web address]. Comment on above: Room air 10-09-2016 12:49-0500 Inhaled oxygen concentration 21 % Hiral Dillon RN [email or web address].; [email or web address]. Comment on above: Room air 10-09-2016 12:49-0500 SaO2% (BldA) [Mass fraction] 94 % Hiral Dillon RN [email or web address].; [email or web address]. 10-09-2016 12:49-0500 Systolic blood pressure 157 mm[Hg] Hiral Dillon RN [email or web address].; [email or web address]. Comment on above: Patient Position: Sitting; Cuff Location : Right Arm; Cuff Size: Standard 04-24-2016 09:01-0400 Body height 154.94 cm Shu Abbotter PA-C Work Phone: [email or web address].; [email or web address]. 04-24-2016 09:01-0400 Body mass index (BMI) [Ratio] 40.43 kg/m2 Shu Abbotter PA-C Work Phone: [employer].; [email or web address]. 04-24-2016 09:01-0400 Body surface area Derived from formula 1.94 m2 Shu Abbotter PA-C Work Phone: [email or web address].; [email or web address]. 04-24-2016 09:01-0400 Body weight 97.07 kg Shu Abbotter PA-C Work Phone: [email or web address].; [email or web address]. 04-24-2016 09:01-0400 Diastolic blood pressure 84 mm[Hg] Shu Abbotter PA-C Work Phone: [employer].; [email or web address]. Comment on above: Patient Position: Sitting; Cuff Location : Left Arm; Cuff Size: Standard 04-24-2016 09:01-0400 Heart rate 67 /min Shu Abbotter PA-C Work Phone: [employer]; [email or web address]. Comment on above: Pattern: Regular 04-24-2016 09:01-0400 Systolic blood pressure 142 mm[Hg] Shu Abbotter PA-C Work Phone: [employer].; [email or web address]. Comment on above: Patient Position: Sitting; Cuff Location : Left Arm; Cuff Size: Standard 10-03-2015 10:17-0500 Body height 154.94 cm Shu Abbotter PA-C Work Phone: [email or web address].; [email or web address]. 10-03-2015 10:17-0500 Body mass index (BMI) [Ratio] 41.1 kg/m2 Shu Haney Chow PA-C Work Phone: [employer].; [email or web address]. 10-03-2015 10:17-0500 Body surface area Derived from formula 1.96 m2 Shu Haney Chow PA-C Work Phone: [employer].; [email or web address]. 10-03-2015 10:17-0500 Body weight 98.66 kg Shu Abbotter PA-C Work Phone: [employer].; [email or web address]. 10-03-2015 10:17-0500 Diastolic blood pressure 84 mm[Hg] Shu Abbotter PA-C Work Phone: [employer].; [email or web address]. Comment on above: Patient Position: Sitting; Cuff Location : Left Arm; Cuff Size: Standard 10-03-2015 10:17-0500 Heart rate 61 /min Shu Abbotter PA-C Work Phone: [employer]; [email or web address]. Comment on above: Pattern: Regular 10-03-2015 10:17-0500 Systolic blood pressure 136 mm[Hg] Shu Abbotter PA-C Work Phone: [email or web address].; [email or web address]. Comment on above: Patient Position: Sitting; Cuff Location : Left Arm; Cuff Size: Standard 04-04-2015 09:40-0400 Body height 156.46 cm Irish Solano LPN [employer] [facility].; [email or web address]. 04-04-2015 09:40-0400 Body mass index (BMI) [Ratio] 39.89 kg/m2 Irish Solano LPN [email or web address], [employer]. 04-04-2015 09:40-0400 Body surface area Derived from formula 1.96 m2 Irish Solano LPN [email or web address], [employer]. 04-04-2015 09:40-0400 Body weight 97.67 kg Irish Solano LPN [employer].; [email or web address]. 04-04-2015 09:40-0400 Diastolic blood pressure 90 mm[Hg] Irish Russ PINEDA [employer] [facility], [employer].; [email or web address]. Comment on above: Patient Position: Sitting; Cuff Location : Left Arm; Cuff Size: Standard 04-04-2015 09:40-0400 Heart rate 63 /min Irish Russ PINEDA [employer] [facility], Inc.; [email or web address]. Comment on above: Pattern: Regular 04-04-2015 09:40-0400 Systolic blood pressure 178 mm[Hg] Irish Russ PINEDA [employer], [employer].; [email or web address]. Comment on above: Patient Position: Sitting; Cuff Location : Left Arm; Cuff Size: Standard 02-12-2015 18:30-0400 Body temperature 98 [degF] Sasha Shepherd LPN [employer], [employer].; [email or web address]. 02-12-2015 18:30-0400 Body weight 95.71 kg Sasha Shepherd LPN [employer] [facility], [employer].; [email or web address]. 02-12-2015 18:30-0400 Diastolic blood pressure 84 mm[Hg] Sasha Shepherd LPN [employer], [employer].; [email or web address]. Comment on above: Patient Position: Sitting; Cuff Location : Left Arm; Cuff Size: Standard 02-12-2015 18:30-0400 Heart rate 81 /min Sasha Shepherd LPN [employer] [facility], [employer].; [email or web address]. Comment on above: Pattern: Regular 02-12-2015 18:30-0400 Inhaled oxygen concentration 20 % Sasha Shepherd LPN [employer] [facility], [employer].; [email or web address]. Comment on above: Room air 02-12-2015 18:30-0400 Inhaled oxygen concentration 21 % Sasha Shepherd LPN [employer] [facility], [employer].; [email or web address]. Comment on above: Room air 02-12-2015 18:30-0400 SaO2% (BldA) [Mass fraction] 96 % Sasha Shepherd LPN [employer] [facility], Inc.; [employer] 02-12-2015 18:30-0400 Systolic blood pressure 155 mm[Hg] Sasha Shepherd LPN [facility] [email or web address]. Comment on above: Patient Position: Sitting; Cuff Location : Left Arm; Cuff Size: Standard 10-04-2014 09:50-0500 Body height 152.4 cm Shu J Chow PA-C Work Phone: [employer].; [email or web address]. 10-04-2014 09:50-0500 Body mass index (BMI) [Ratio] 40.11 kg/m2 Shu Lyndon Chow PA-C Work Phone: [employer].; [employer]. 10-04-2014 09:50-0500 Body surface area Derived from formula 1.89 m2 Shu J Chow PA-C Work Phone: [employer].; [employer]. 10-04-2014 09:50-0500 Body weight 93.16 kg Shu Lyndon Chow PA-C Work Phone: [employer].; [employer]. 10-04-2014 09:50-0500 Diastolic blood pressure 93 mm[Hg] Shu Lyndon Chow PA-C Work Phone: [employer].; [email or web address]. Comment on above: Patient Position: Sitting; Cuff Location : Left Arm; Cuff Size: Standard 10-04-2014 09:50-0500 Heart rate 73 /min Shu Lyndon Chow PA-C Work Phone: [employer].; [email or web address]. Comment on above: Pattern: Regular 10-04-2014 09:50-0500 Systolic blood pressure 171 mm[Hg] Shu Lyndon Chow PA-C Work Phone: [employer].; [email or web address]. Comment on above: Patient Position: Sitting; Cuff Location : Left Arm; Cuff Size: Standard 05-03-2014 10:13-0400 Body height 154.94 cm Shu Lyndon Chow PA-C Work Phone: [employer].; [employer]. 05-03-2014 10:13-0400 Body mass index (BMI) [Ratio] 38.36 kg/m2 Shu Haney Chow PA-C Work Phone: [employer]; [employer]. 05-03-2014 10:13-0400 Body surface area Derived from formula 1.9 m2 Shu Haney Chow PA-C Work Phone: [employer].; [employer]. 05-03-2014 10:13-0400 Body weight 92.08 kg Shu Haney Chow PA-C Work Phone: [employer]; [email or web address]. 05-03-2014 10:13-0400 Diastolic blood pressure 110 mm[Hg] Shu Haney Chow PA-C Work Phone: [employer]; [email or web address]. Comment on above: Patient Position: Sitting; Cuff Location : Left Arm; Cuff Size: Standard 05-03-2014 10:13-0400 Heart rate 74 /min Shu Haney Chow PA-C Work Phone: [employer]; [email or web address]. Comment on above: Pattern: Regular 05-03-2014 10:13-0400 Systolic blood pressure 200 mm[Hg] Shu Haney Chow PA-C Work Phone: [employer]; [email or web address]. Comment on above: Patient Position: Sitting; Cuff Location : Left Arm; Cuff Size: Standard Encounters Encounter Date Encounter Type Care Provider Facility Start: 05-04-2025 ambulatory [facility] Facility :[facility] Start: 05-02-[address] Sherry Conn MD -[facility] Start: 05-02-2025 End: 05-02-2025 Patient encounter procedure Alyssa HAWKINS -[facility] Work Phone: Start: 05-02-2025 End: 05-02-2025 ambulatory Shu Chow PA Work Phone: -[facility] Start: 04-18-2025 End: 04-18-[address] [place] MD -[facility] Work Phone: Start: 04-18-2025 End: 04-18-2025 ambulatory Shu Abbotter PA Work Phone: [facility] Work Phone: Start: 04-18-[address] Sherry Conn MD -[facility] Start: 04-04-[address] Sherry Conn MD -[facility] Start: 04-04-2025 End: 04-04-2025 Patient encounter procedure Alyssa AllenKeila BRIDGE MAINTAINER-C -[facility] Work Phone: Start: 04-04-2025 End: 04-04-2025 ambulatory Shu Chow PA Work Phone: [facility] Work Phone: Start: 03-24-2025 End: 03-24-2025 Patient encounter procedure Shu Chow PA-C [facility] Start: 03-24-2025 End: 03-24-2025 Periodic preventive med est patient 65yrs& older Shu Abbotter PA-C Work [facility] Start: 03-21-[address] Sherry Conn MD -[facility] Start: 03-21-2025 End: 03-21-2025 Patient encounter procedure Alyssa AllenKeila BRIDGE MAINTAINER-C -[facility] Work Phone: Start: 03-21-2025 End: 03-21-2025 ambulatory Shu Abbotter PA Work Phone: [facility] Work Phone: Start: 03-20-2025 ambulatory Michael Gaines Facility :[facility] [place] Start: 03-20-2025 Non-patient / Non-visit Dr. Storm PIRES -[facility] Start: 03-20-2025 End: 03-20-2025 Admission to same day surgery center Dr. Michael Gaines [facility] Start: 03-20-2025 End: 03-20-2025 ambulatory Shu Chow PA Work Phone: [facility] Work Phone: Start: 03-17-2025 End: 03-17-2025 [facility] Phone: [facility] Start: 03-15-2025 End: 03-15-[address] Michael Gaines MD -[facility] Work Phone: Start: 03-15-2025 End: 03-15-2025 ambulatory [facility] Work Phone: [facility] Work Phone: Start: 03-15-2025 End: 03-15-2025 Patient encounter procedure Alyssa Lynch NP-C -[facility] Work Phone: Start: 03-15-2025 End: 03-15-2025 ambulatory [facility] Work Phone: [facility] Work Phone: Start: 03-09-[address] Sherry Conn MD -[facility] Start: 03-09-2025 End: 03-09-[address] [place] MD -[facility] Work Phone: Start: 03-09-2025 End: 03-09-2025 ambulatory [facility] Facility:[facility] Start: 03-06-2025 Non-patient / Non-visit Shikha Pleitez si, LPN -[facility] Work Phone: Start: 03-06-2025 ambulatory [facility] Facility :[facility] Start: 02-21-2025 End: 02-21-2025 Postop follow up visit related to original px Sachi Rosas MBBS Work Phone: Division of Colon & Rectal Surgery Comment on above: Malignant neoplasm o f ascending colon (Primary Dx) Start: 02-21-2025 ambulatory SHU Chiu ty:[facility] Start: 02-01-2025 End: 02-01-2025 Office outpatient visit 25 minutes Shu Chow PA-C Work Phone: [employer] [facility] [employer] Start: 02-01-2025 ambulatory AGATA Ellis ity:[facility] Start: 01-30-2025 End: 01-30-2025 Telephone follow-up Shu Chow PA-C Work Phone: [employer] Start: 01-29-2025 End: 01-29-2025 ambulatory Tricia Otero RN Oncology Nurse Wendi amador Start: 01-23-2025 End: 01-28-2025 Evaluation and management of inpatient Sachi LEGER Work Phone: [email or web address] Comment on above: Colon cancer Start: 01-16-2025 End: 01-16-2025 Orders Shu Chow PA-C Work Phone: [employer] Start: 01-16-2025 ambulatory SHU Chiu ty:[facility] Start: 01-13-2025 Review Shu Chow PA-C Work Phone: [employer] [facility] [employer] Start: 01-10-2025 ambulatory MACKENZIE REYES Facilit y:[facility] Start: 01-10-2025 End: 01-10-2025 Office outpatient new 45 minutes Mackenzie Reyes MANAGER [employer]OOK Work Phone: Pre-Procedure Evaluation and Assessment [facility] Comment on above: Preop exam for inter nal medicine (Primary Dx); Malignant neoplasm of ascending colon; Essential hypertension; Mixed hyperlipidemia; Abnormal coagulation profile Start: 01-10-2025 End: 01-10-2025 Patient encounter status Mackenzie Reyes MANAGER [employer]ET [employer]OOK Work Phone: [facility] Start: 01-10-2025 Encounter for other preprocedural examination MACKENZIE REYES Facility:[facility] Start: 01-10-2025 End: 01-10-2025 Clinical Support Encounter [facility] Nursing Humberto Payton 8 Work Phone: [facility] Comment on above: Malignant neoplasm o f ascending colon (Primary Dx) Start: 01-10-2025 ambulatory MACKENZIEALEX REYES Facilit y:[facility] Start: 01-03-2025 ambulatory SHU Chiu ty:[facility] Start: 12-31-2024 ambulatory SHU Ellisi ty:[facility] Start: 12-31-2024 End: 12-31-2024 Subsequent hospital visit by physician Sachi LEGER Work Phone: [facility] [place] Comment on above: Arrived Start: 12-06-2024 End: 12-06-2024 Office consultation new/estab patient 40 min Sachi LEGER Work Phone: Division of Colon & Rectal Surgery Comment on above: Malignant neoplasm o f ascending colon (Primary Dx) Start: 12-06-2024 ambulatory SHU Chiu ty:[facility] Start: 11-17-2024 End: 11-17-2024 ambulatory [facility] Start: 11-15-2024 Evaluation and manag ement of inpatient [facility] Start: 08-17-2024 End: 08-17-2024 [facility]ulatory [facility] [facility] Start: 08-01-2024 End: 08-01-2024 ambulatory [facility] Start: 07-05-2024 End: 07-06-2024 Orders Shu Chow PA-C Work Phone: [employer] [facility] Start: 06-27-2024 End: 06-27-2024 Patient encounter procedure Shu Chow PA-C Work Phone: [facility].; [facility]. Start: 06-27-2024 End: 06-27-2024 Periodic preventive med est patient 65yrs& older Shu Chow PA-C Work Phone: [email or web address]. Start: 05-04-2024 End: 05-06-2024 Orders Shu Chow PA-C Work Phone: [email or web address]. Start: 02-05-2024 End: 02-05-2024 Office outpatient visit 25 minutes Shu Chow PA-C Work Phone: [email or web address]. Start: 12-23-2023 End: 02-04-2024 ambulatory [facility] Start: 12-21-2023 End: 12-21-2023 ambulatory POND EDDY Lyndon [facility] [place] Start: 12-01-2023 End: 12-01-2023 ambulatory SHU Lyndon [facility] Start: 12-01-2023 End: 12-01-2023 Encounter for other preprocedural examination KALPESH BOLES [facility] Start: 11-23-2023 End: 11-23-2023 Patient encounter procedure Shu Chow PA-C Work Phone: [email or web address] [facility] Start: 11-23-2023 End: 11-23-2023 Preprocedural examination done Shu Chow PA-C Work Phone: [email or web address]. Start: 07-27-2023 End: 07-27-2023 Patient encounter procedure Shu Chow PA-C Work Phone: [email or web address]. Start: 07-20-2023 End: 07-20-2023 Orders Shu Chow PA-C Work Phone: [email or web address]. Start: 01-29-2023 End: 01-29-2023 Office outpatient visit 25 minutes Shu Chow PA-C Work Phone: [email or web address]. Start: 08-18-2022 End: 08-18-2022 Orders Shu Chow PA-C Work Phone: [email or web address]. Start: 08-01-2022 End: 08-01-2022 Patient encounter procedure Shu Chow PA-C Work Phone: [email or web address]. Start: 04-16-2022 End: 04-16-2022 Orders Shu Chow PA-C Work Phone: [email or web address]. Start: 01-23-2022 End: 01-23-2022 Office outpatient visit 25 minutes Shu Chow PA-C Work Phone: [email or web address]. Start: 04-11-2021 End: 04-11-2021 Orders Shu Chow PA-C Work Phone: [email or web address]. Start: 01-23-2021 End: 01-23-2021 Office outpatient visit 15 minutes Shu Chow PA-C Work Phone: [email or web address]. Start: 01-09-2021 End: 01-09-2021 Office outpatient visit 25 minutes Shu Chow PA-C Work Phone: [email or web address]. Start: 06-25-2020 End: 06-25-2020 Orders Shu Chow PA-C Work Phone: [email or web address]. Start: 06-25-2020 End: 06-25-2020 Orders Shu Chow PA-C Work Phone: [email or web address]. Start: 06-18-2020 End: 06-18-2020 Patient encounter procedure Irish Solano LPN [email or web address]. Start: 05-03-2020 End: 05-07-2020 Orders Shu Chow PA-C Work Phone: [email or web address]. Start: 01-02-2020 End: 01-02-2020 Office outpatient visit 15 minutes Shu Chow PA-C Work Phone: [email or web address]. Start: 06-15-2019 End: 06-16-2019 Patient encounter procedure Irish Solano LPN [email or web address]. Start: 05-18-2019 End: 05-18-2019 Orders Shu Chow PA-C Work Phone: [email or web address]. Start: 11-04-2018 End: 11-04-2018 Office outpatient visit 25 minutes Shu Chow PA-C Work Phone: [email or web address]. Start: 10-04-2018 End: 10-04-2018 Office outpatient visit 15 minutes Shu Chow PA-C Work Phone: [email or web address]. Start: 04-26-2018 End: 04-26-2018 Orders Shu Chow PA-C Work Phone: [email or web address]. Start: 04-22-2018 End: 04-23-2018 Office outpatient visit 15 minutes Shu Chow PA-C Work Phone: [email or web address]. Start: 12-14-2017 End: 12-14-2017 Orders Shu Chow PA-C Work Phone: [email or web address]. Start: 12-10-2017 End: 12-13-2017 Patient encounter procedure Shu Chow PA-C Work Phone: [email or web address]. Start: 11-09-2017 End: 11-09-2017 Patient encounter procedure Irish Solano CHAR FILTER T[employer] TEND[email or web address]. Start: 10-25-2017 End: 10-25-2017 Emergency department patient visit [facility] Facility:[place] Start: 09-04-2017 End: 09-04-2017 Orders Shu Chow PA-C Work Phone: [email or web address]. Start: 04-29-2017 End: 04-29-2017 Office outpatient visit 15 minutes Shu Chow PA-C Work Phone: [email or web address]. Start: 10-09-2016 End: 10-09-2016 Patient encounter procedure Shu Chow PA-C Work Phone: [email or web address]. Start: 04-24-2016 End: 04-24-2016 Patient encounter procedure Shu Chow PA-C Work Phone: [email or web address]. Start: 04-23-2016 End: 04-23-2016 Historical Summary Shu Chow PA-C Work Phone: [email or web address]. Start: 10-10-2015 End: 10-10-2015 Orders Shu Chow PA-C Work Phone: [email or web address]. Start: 10-03-2015 End: 10-03-2015 Patient encounter procedure Shu Chow PA-C Work Phone: [email or web address]. Start: 08-22-2015 End: 08-22-2015 Orders Shu Chow PA-C Work Phone: [email or web address]. Start: 04-04-2015 End: 04-04-2015 Patient encounter procedure Shu Chow PA-C Work Phone: [email or web address]. Start: 02-12-2015 End: 02-12-2015 Patient encounter procedure Shu Chow PA-C Work Phone: [email or web address]. Start: 10-04-2014 End: 10-04-2014 Patient encounter procedure Shu Chow PA-C Work Phone: [email or web address]. Start: 05-03-2014 End: 05-03-2014 Manual pelvic examination Shu ROLDANC Work Phone: [email or web address] Start: 05-03-2014 End: 05-03-2014 Patient encounter procedure Shu JAUREGUI-C Work Phone: [email or web address]. [facility] Shu JAUREGUI-C Work Phone: [email or web address] Ad[facility] Carlie Xiao CHAR FILTER TANK TENDER HEADAlta Vista Regional [email or web address] [facility].; [email or web address] [facility] Ad[facility] Roverto Lynch CHAR FILTER TANK TENDER HEAD [facility].; [facility], [facility] Amy Leonbrittanie [facility], [facility].; [facility] Manual pelvic examination Amy Edwardbrittanie [facility].; [facility], [facility] Patient encounter procedure Roverto Miracle Lynch LPN [facility].; [facility] Patient encounter procedure Amyjen Soriano [facility].; [facility] Procedures Date Procedure Procedure Detail Performing Clinician [...] abdo men 1 view Malick Mays Ricci MANAGER [employer] Work Phone: Start: 01-28-2025 Assay of magnesium Giorgio Mares MD Work Phone: Start: 01-27-2025 Radiologic exam abdo men 1 view Malick Ricci MANAGER [employer] Work Phone: Start: 01-27-2025 Assay of magnesium [...] Phone: Start: 01-10-2025 Antibody screen Mackenzie haley MANAGER [employer] Work Phone: Start: 01-10-2025 Antibody screen MACKENZIE HALEY Comment on above: Performed By: #### X MPO #### [facility] (DEFAULT) [address] [place] [id number] Start: 01-10-2025 Blood typing serologic abo Mackenzie Noblesbrendanfrancis MANAGER [employer] Work Phone: Start: 01-10-2025 CBC AND ELECTRONIC DIFF Mackenzie Reyes MANAGER [employer] Work Phone: Start: 01-10-2025 Complete blood count with white cell differential, automated Mackenzie Reyes MANAGER [employer] Work Phone: Start: 01-10-2025 Comprehensive metabo lic panel Mackenzie Reyes MANAGER [employer] Work Phone: Start: 01-10-2025 PREPARE TO TRANSFUSE OR RED BLOOD CELLS Mackenzie Noblesmady MANAGER [employer] Work Phone: Start: 12-31-2024 Creatinine blood Sachi [...] End: 08-28-2022 Screening mammography Roverto Rausch Keila [employer] Comment on above: Normal. Start: 08-01-2022 End: 08-29-2022 Dxa bone density study 1/> sites axial skel Shu Lyndon Abbotter PA-C Work Phone: Start: 07-17-2022 End: 07-17-2022 Lab findings surveillance Roverto Rausch Markus ach [employer] Comment on above: 98 CMP Start: 01-23-2021 [...] Phone: Start: 10-03-2015 End: 10-31-2015 Mammogram, screening Shu Lyndon Strickland Work Phone: Start: 10-02-2015 End: [...] examination of cervical Papanicolaou smear Roverto Lynch [employer] TENDER HEAD LMP Roverto M Schlaba ch [employer] FILTER TANK TENDER HEAD Comment on above: 64 LMP Roverto M Schlaba ch [employer] T[employer] TENDER HEAD Comment on above: 64 LMP Amy Soriano CCMA Comment on above: 64 Ophthalmic examinati on and evaluation Roverto Lynch [employer] T[employer] Comment on above: 4 years ago Ophthalmic examinati on and evaluation Roverto Lynch [employer] T[employer] Comment on above: 4 years ago Ophthalmic examinati on and evaluation Amy Soriano CCMA Comment on above: 4 years ago Plan of Treatment Date Care Activity Detail Author Start: 01-28-2026 Potassium [Moles/volume] in Serum or Plasma POTASSIUM [facility] Start: 08-17-2025 Screening for malignant neoplasm of colon COLORECTAL CANCER SCREENING DISCUSSION [facility] Start: 07-03-2025 Influenza vaccination INFLUENZA VACCINE (Season Ended) [facility] Start: 05-02-2025 Carcinoembryonic Ag [Mass/volume] in Serum or Plasma [facility] Start: 05-02-2025 Cobalamin (Vitamin B12) [Mass/volume] in Serum or Plasma [facility] Start: 05-02-2025 Ferritin [Mass/volume] in Serum or Plasma [facility] Start: 05-02-2025 Iron and Iron binding capacity panel - Serum or Plasma [facility] Start: 05-02-2025 Serum inorganic phosphate measurement [facility] Start: 05-02-2025 [facility] Start: 05-02-2025 Vital signs measurements [facility] Start: 04-18-2025 [facility] Start: 04-18-2025 Vital signs measurements [facility] Start: 04-04-2025 [facility] Start: 04-04-2025 Vital signs measurements [facility] Start: 03-24-2025 Patient encounter procedure Medical; PHYSICAL - AWV [facility] Start: 24-Mar-2025 08:20-04:00 JOELLE Chow [facility]ment [facility] Start: 03-21-2025 Carcinoembryonic Ag [Mass/volume] in Serum or Plasma [facility] Start: 03-21-2025 [facility] Start: 03-21-2025 Venous catheter care management [facility] Start: 03-21-2025 Vital signs measurements [facility] Start: 03-21-2025 [facility] Start: 03-20-2025 Anesthesia access central venous circulation ANESTH VASCULAR ACCESS [facility] Start: 03-20-2025 Insj tunneled ctr vad w/subq port age 4 yr/> INSERT TUNNELED CV CATH [facility] Start: 03-20-2025 Patient discharge [facility] Start: 03-17-2025 25 hydroxy includes fractions if performed [email or web address] Start: 03-17-2025 Assay of free thyroxine [email or web address]. Start: 03-17-2025 Assay of thyroid stimulating hormone tsh [email or web address]. Start: 03-17-2025 Comprehensive metabolic panel [email or web address] Start: 03-17-2025 Lipid panel [facility]; [facility]. Start: 03-17-2025 Blood count complete auto&auto difrntl wbc [facility]; [facility] Start: 03-17-2025 Nursing evaluation of patient and report Medical; Nurse visit - AWV. fasting labs [facility] Start: 17-Mar-2025 09:00-04:00 NURSE, FLOAT Appointment [facility] Start: 03-09-2025 Patient referral [facility] Work Phone: Start: 02-21-2025 End: 02-21-2025 Patient encounter procedure 02/21/2025 1:45 PM EDT Office Visit Division of Colon & Rectal Surgery [address] [phone] Sachi Rosas MBBS [address] [phone] Division of Colon & Rectal Surgery Start: 02-01-2025 Patient encounter procedure Medical; Hospital F/U - IPFU [facility] 01/28, R hemicolectomy sec. to colon ca [facility] Start: 01-Feb-2025 14:00-04:00 JOELLE Chow [facility]ment [facility] Start: 01-23-2025 End: 01-23-2025 Evaluation and management of inpatient 01/23/2025 7:15 AM EDT - 01/23/2025 12:15 PM EDT Surgery [facility]CT PERI[facility] [address] [place] [address] Sachi Rosas MBBS [address] [phone] COLECTOMY PARTIAL ROBOTIC XI RIGHT [facility]CT PERIOP Comment on above: COLECTOMY PARTIAL ROBOTIC XI RIGHT Start: 01-23-2025 End: 01-23-2025 Laparoscopy colectomy partial w/anastomosis COLECTOMY PARTIAL ROBOTIC XI RIGHT Malignant neoplasm of ascending colon 01/23/2025 7:15 AM EDT [facility] Start: 01-23-2025 Evaluation and management of inpatient 01/23/2025 5:15 AM EDT Hospital Encounter [facility] [address] [place] [phone] Sachi Rosas, MBBS [address] [phone] Malignant neoplasm of ascending colon [facility] Comment on above: Malignant neoplasm of ascending colon Start: 01-16-2025 End: 01-16-2025 Anesthesia consultation 01/16/2025 2:00 PM EDT Pre-Operative Nurse Assessment [facility] [address] [place] [phone] Sachi Rosas, MBBS [address] [place] [phone] [facility] Start: 01-03-2025 End: 01-03-2025 Telemedicine consultation with patient 01/03/2025 7:45 AM EST Telemedicine Division of Colon & Rectal Surgery [address] [place] [phone] Sachi Rosas, MBBS [address] [phone] Division of Colon & Rectal Surgery Start: 12-31-2024 End: 12-31-2024 Patient encounter procedure [facility] [place] Start: 12-06-2024 End: 12-06-2025 CT Chest W contrast IV CT CHEST WITH CONTRAST Imaging Routine Malignant neoplasm of ascending colon Expected: 12/06/2024, Expires: 12/06/2025 [facility] Comment on above: Expected: 12/06/2024, Expires: Start: 12-06-2024 End: 12-06-2025 MR Abdomen WO and W contrast IV MRI ABDOMEN WITH AND WITHOUT CONTRAST Imaging Routine Malignant neoplasm of ascending colon Expected: 12/06/2024, Expires: 12/06/2025 [facility] Comment on above: Expected: 12/06/2024, Expires: Start: 2024 RSV VACCINE (1 - 1-dose 75+ series) RSV VACCINE (1 - 1-dose 75+ series) [facility] Start: 08-04-2024 Patient encounter procedure Medical; EXTENDED RTN - 6 mo rtn [facility] Start: 04-Aug-2024 13:10-04:00 JOELLE Chow [facility]ment [facility] Start: 07-05-2024 Assay of thyroid stimulating hormone tsh TSH (THYROID STIMULATING HORMONE) ([id number]) Start: 05-Jul-2024 08:27-04:00 Request [email or web address]. Start: 07-05-2024 Lipid panel LIPID PANEL (38515) Start: 05-Jul-2024 08:25-04:00 Request [email or web address]. Start: 07-05-2024 Comprehensive metabolic panel CMP w/ GFR* ([id number]) Start: 05-Jul-2024 08:25-04:00 Request [email or web address]. Start: 07-05-2024 25 hydroxy includes fractions if performed Vitamin D, 25-Hydroxy, LC/MS/MS ([id number]) Start: 05-Jul-2024 08:25-04:00 Request [email or web address]. Start: 07-05-2024 Nursing evaluation of patient and report Medical; Nurse visit - Fasting Labs - MJP [email or web address] Start: 05-Jul-2024 08:20-04:00 NURSE, FLOAT Appointment Request [email or web address] Start: 07-03-2024 COVID-19 VACCINE () COVID-19 VACCINE () [facility] Start: 07-03-2024 Influenza vaccination INFLUENZA VACCINE (#1) [facility] Start: 06-28-2024 Assay of thyroid stimulating hormone tsh TSH (THYROID STIMULATING HORMONE) (35213) Start: 28-Jun-2024 Request [email or web address] Start: 06-27-2024 End: 06-27-2024 Ecg routine ecg w/least 12 lds w/i&r ELECTROCARDIOGRAM WITH INTERPRETATION ([id number]) Date: 27-Jun-2024 Comments: Sinus rhythm with occasional supraventricular complexes. [email or web address] Comment on above: Sinus rhythm with occasional supraventri cular complexes. Start: 06-27-2024 Patient encounter procedure Medical; PHYSICAL - Medicare wellness [email or web address]. Start: 27-Jun-2024 14:00-04:00 JOELLE Chow Appointment Request [employer] Start: 06-27-2024 Screening digital breast tomosynthesis bi Mammogram 3D (tomosynthesis), bilateral ([id number]) Start: 27-Jun-2024 Intent [employer]; [email or web address] Start: 06-02-2024 25 hydroxy includes fractions if performed Vitamin D, 25-Hydroxy, LC/MS/MS (43753) Start: 02-Jun-2024 Request [employer]; [email or web address]. Start: 06-02-2024 Comprehensive metabolic panel CMP w/ GFR* ([id number]) Start: 02-Jun-2024 Request [email or web address] Start: 06-02-2024 Lipid panel LIPID PANEL (36414) Start: 02-Jun-2024 Request [email or web address] Start: 06-02-2024 Nursing evaluation of patient and report Medical; Nurse visit - Medicare wellness fasting labs [facility] [email or web address]. Start: 02-Jun-2024 08:40-04:00 NURSE, FLOAT Appointment Request [email or web address] Start: 02-04-2024 Patient encounter procedure [email or web address] Start: 11-23-2023 Ecg routine ecg w/least 12 lds w/i&r ELECTROCARDIOGRAM WITH INTERPRETATION ([id number]) Start: 23-Nov-2023 Intent Comments: Normal sinus rhythm [employer]; [email or web address] Comment on above: Normal sinus rhythm Start: 11-23-2023 Blood count complete auto&auto difrntl wbc CBC, PLATELETS & AUT DIFF (F) ([id number]) Start: 23-Nov-2023 10:46 Request [employer]; [email or web address]. Start: 11-23-2023 Comprehensive metabolic panel CMP w/ GFR* ([id number]) Start: 23-Nov-2023 10:46 Request [employer]; [email or web address]. Start: 11-23-2023 Admission to same day surgery [place] [facility]; EXTENDED RTN - preop [facility] ortho R knee (surgery 12/21 [email or web address] Start: 23-Nov-2023 10:20 JOELLE Chow Appointment Request [email or web address]. Start: 07-27-2023 Provider Instructions for Treatment [facility] HM Issues, 65+ female Indication: Medicare annual wellness visit, subsequent Start: 27-Jul-2023 Instruction Type: Provider Instructions for Treatment [email or web address]. Start: 1999 Pneumococcal vaccination PNEUMOCOCCAL VACCINE SERIES (1 of 1 - PCV) [facility] Start: 1999 Zoster vaccine hzv live for subcutaneous use ZOSTER (SHINGLES) VACCINE (1 of 2) [facility] Start: 1989 Lipid panel LIPID SCREENING [facility] Start: 1989 Screening for malignant neoplasm of breast MAMMOGRAM SCREENING DISCUSSION [facility] Start: 1970 Screening for malignant neoplasm of cervix CERVICAL CANCER SCREENING DISCUSSION [facility] Start: 1968 Third diphtheria, tetanus and acellular pertussis (DTaP) vaccination TDAP (ADULT) [facility] Start: 1949 Hepatitis C screening HEPATITIS C VIRUS SCREENING [facility] Start: 1949 Screening for osteoporosis DEXA SCAN DISCUSSION [facility] Start: 1949 Tetanus vaccination TETANUS [facility] Alanine aminotransfe rase [Enzymatic activity/volume] in Serum or Plasma [facility] Albumin [Mass/volume ] in Serum or Plasma [facility] Alkaline phosphatase [Enzymatic activity/volume] in Serum or Plasma [facility] Anion gap in Serum o r Plasma [facility] Bilirubin, total measurement [facility] BUN/Creatinine ratio [facility] Calcium [Mass/volume ] in Serum or Plasma [facility] Carbon dioxide, tota l [Moles/volume] in Central venous blood [facility] Carcinoembryonic Ag [Mass/volume] in Serum or Plasma [facility] Cobalamin (Vitamin B 12) [Mass/volume] in Serum or Plasma [facility] Creatinine [Mass/vol ume] in Serum or Plasma [facility] End: 12-31-2024 CT Chest W contrast IV [facility] Comment on above: 1 Occurrences starting 12/31/2024 until 12/31/2024 Ecg routine ecg w/le ast 12 lds w/i&r NC ECG ROUTINE ECG W/LEAST 12 LDS W/I&R NC - OFFICE PERFORMED Routine Preop exam for internal medicine Malignant neoplasm of ascending colon Essential hypertension Mixed hyperlipidemia Ordered: 01/10/2025 [facility] Comment on above: Ordered: 01/10/2025 Erythrocyte mean corpuscular volume determination [facility] Ferritin [Mass/volum e] in Serum or Plasma [facility] Glucose [Mass/volume ] in Serum or Plasma [facility] Hematocrit [Volume Fraction] of Blood [facility] Hemoglobin [Mass/vol ume] in Blood [facility] Iron [Mass/mass] in Unspecified specimen [facility] Iron and Iron bindin g capacity panel - Serum or Plasma [facility] Iron saturation [Mas s Fraction] in Serum or Plasma [facility] Leukocytes [#/volume ] in Blood [facility] Magnesium measurement [facility] Mean corpuscular hemoglobin concentration determination [facility] Mean corpuscular hemoglobin determination [facility] Measurement of renal function [facility] End: 12-31-2024 MR Abdomen WO and W contrast IV [facility] Comment on above: 1 Occurrences starting 12/31/2024 until 12/31/2024 Neutrophil count [facility] Neutrophil percent differential count [facility] Patient referral [facility] Work Phone: Platelets [#/volume] in Blood [facility] Potassium measurement [facility] Red blood cell count [facility] Red cell distributio n width determination [facility] Serum chloride measurement [facility] Serum inorganic phosphate measurement [facility] Sodium measurement [facility] SURG PATH REQUEST U [facility] Comment on above: Release Upon Ordering for 1 Occurrences starting 01/23/2025, 1 completed Total iron binding capacity measurement [facility] Total protein measurement [facility] Urea nitrogen [Mass/volume] in Serum or Plasma [facility] Immunizations Immunization Date Immunization Notes Care Provider Zachary alfarolashay 06-18-2020 diphtheria, tetanus toxoids and acellular pertussis vaccine, unspecified formulation Shu Chow PA-C Work Phone: [employer] 10-02-2017 influenza, injectabl e, quadrivalent, contains preservative Shu Chow PA-C Work Phone: [employer]; [employer] 10-03-2015 ADMINISTRATION OF INFLUENZA VIRUS VACCINE (G0008) Shu Chow PA-C Work Phone: [employer]; [employer] 10-03-2015 influenza, seasonal, injectable Shu Chow PA-C Work Phone: [employer]; [email or web address] Comment on above: Site: Deltoid (Left) VIS Given: * Inactivated Influenza (06/08/2015) 10-02-2015 influenza virus vacc ine, unspecified formulation Shu Chow PA-C Work Phone: [employer]; [employer] 04-04-2015 pneumococcal polysaccharide vaccine, 23 valent Shu Chow PA-C Work Phone: [employer]; [employer] Comment on above: Site: Deltoid (Right )VIS Given: * Pneumococcal Polysaccharide (PPSV23) (08/07/09) 10-04-2014 influenza, seasonal, injectable Shu Chow PA-C Work Phone: [facility] Comment on above: Site: Deltoid (Right )VIS Given: * Influenza, Inactivated ([id number]) 10-04-2014 pneumococcal conjuga te vaccine, 13 valent Shu Chow PA-C Work Phone: [facility] Comment on above: Site: Deltoid (Left) VIS Given: * Pneumococcal Conjugate (PCV13) (12/29/12) Payers Date Payer Category Payer Medicare [id number] 2025 Self-pay 2024 Medicare (Managed Care) MEDICARE [employer] PPO [id number] 2024 Medicare [id number] 1950 Unknown [id number] 2.16840.1.934456.3.579.2. 651 1949 Unknown [id number] 2.16840.1.201200.3.579.2. 651 1949 Unknown [id number] 2.16.840.1.522213.3.579.2. 651 1949 Unknown [id number] 2.16.840.1.490652.3.579.2. 651 1949 Unknown [id number] 2.16.840.1.179080.3.579.2. 651 1949 Unknown [id number] 2.16.840.1.396899.3.579.2. 651 1949 Unknown [id number] 2.16.840.1.459939.3.579.2. 651 1949 Unknown [id number] 2.16.840.1.901324.3.579.2. 594 1949 Unknown [id number] 2.16.840.1.397905.3.579.2. 594 1949 Unknown [id number] 2.16.840.1.932642.3.579.2. 594 1949 Unknown [id number] 2.16.840.1.218534.3.579.2. 594 1949 Unknown [id number] 2.16.840.1.165340.3.579.2. 594 1949 Unknown [id number] 2.16.840.1.078629.3.579.2. 594 1949 Unknown [id number] 2.16.840.1.206492.3.579.2. 594 1949 Unknown [id number] 2.16.840.1.845957.3.579.2. 594 1949 Unknown [id number] 2.16.840.1.261978.3.579.2. 594 1949 Unknown [id number] 2.16.840.1.266723.3.579.2. 594 1949 Unknown [id number] 2.16.840.1.782371.3.579.2. 594 Medicare [id number] Unknown Unknown [id number] 2.16.840.1.834786.3.579.2. 462 Unknown [id number] 2.16.840.1.083976.3.579.2. 462 Unknown [id number] 2.16.840.1.033305.3.579.2. 462 Unknown [id number] 2.16.840.1.569314.3.579.2. 462 Unknown [id number] 2.16.840.1.580432.3.579.2. 462 Unknown [id number] 2.16.840.1.851806.3.579.2. 462 Unknown [id number] 2.16.840.1.996856.3.579.2. 462 Unknown [id number] 2.16.840.1.371770.3.579.2. 462 Unknown [id number] 2.16.840.1.086990.3.579.2. 462 Unknown [id number] 2.16.840.1.513792.3.579.2. 462 Unknown [id number] 2.16.840.1.988916.3.579.2. 462 Social History Date Type Detail Facility Start: 12-06-2024 End: 02-21-2025 Caffeine Use Caffeine Use [facility] Marital status: Marital status: ; . [facility] [place] Tobacco Use: Tobacco Use: ; F ormer smoker. [facility] [place] [employer] [facility] Start: 1950 Female [facility] Start: 12-06-2024 End: 03-17-2025 Ex-smoker [facility] Work Phone: End: 12-06-2019 History of tobacco use Current smoker [facility] End: 12-06-2019 History of tobacco use Cigarette Smoker [facility] Start: 12-06-2024 Tobacco use and exposure Smokeless tobacco non-user [facility] Start: 12-06-2024 End: 01-24-2025 Alcoholic beverage intake Current drinker of alcohol (finding) [facility] Start: 12-06-2024 End: 02-21-2025 Tobacco use panel [facility] Adolescent depressio n screening assessment 0 [facility] Start: 12-06-2024 Alcohol Comment wine twice per year [facility] Start: 1950 Sex assigned at Not on file O [facility] Start: 11-22-2024 Sex Female (finding) [facility] Start: 01-01-2025 Gender identity Identifies as female gender (finding) [facility] Start: 01-01-2025 Sexual orientation Heterosexual (fin gustavo) [facility] How often to you hav e a drink containing alcohol? Never [facility] Start: 02-21-2025 Alcoholic beverage intake Ex-drinker (finding) [facility] Start: 03-18-2021 Tobacco Use Tobacco Use [facility] Medical Equipment Procedure Code Equipment Code Equipment Origin al Text Equipment Identifier Dates Insertion, vascular access port ([id number]) Vascular port/catheter [id number] FDA Start: 03-20-2025 Goals Date Patient Goal Desired Activity /State Functional Status Date Assessment Result Facility 01-23-2025 Are you deaf, or do you have serious difficulty hearing No 01/23/2025 3:57 PM Yoav Liang RN No [facility] 01-23-2025 Are you blind, or do you have serious difficulty seeing, even when wearing glasses No 01/23/2025 3:57 PM Yoav Liang RN No [facility] 01-23-2025 Do you have serious difficulty walking or climbing stairs No 01/23/2025 3:57 PM Yoav Liang RN No [facility] 01-23-2025 Do you have difficul ty dressing or bathing No 01/23/2025 3:57 PM Yoav Liang RN No [facility] 01-23-2025 Because of a physica l, mental, or emotional condition, do you have difficulty doing errands alone such as visiting a physician's office or shopping No 01/23/2025 3:57 PM Yoav Liang RN No [facility] Mental Status Date Assessment Result Facility 03-20-2025 Cognitive function Voice/Name [facility] Work Phone: 01-23-2025 Because of a physica l, mental, or emotional condition, do you have serious difficulty concentrating, remembering, or making decisions No 01/23/2025 3:57 PM EDT Yoav Schwartz, RN No [facility] Clinical Notes 12-06-2024 to 05-02-2025 Note Date & Type Note Facility 05-02-2025 Progress note [facility] 05-02-2025 Progress note Note Date/Time May 02, 2025 9:23am [facility] [address] [place] [address] OFFICE VISIT Date of Service: 05/02/25 0800 MR#: [id number] Acct: [id number] Name: JESSIKA CARRILLO Rep #: [id number] : 1950 From: Alyssa Zavala ch BRIDGE MAINTAINER BRIDGE MAINTAINER-C Age/Sex: 74/F Location[place] [facility] [place] Status: Signed HPI Subjective Date of Service 05/02/25 Chief Complaint Colon cancer on treatment History of Present Illness 74-year-old female with no family of colon cancer had screening colonoscopy August 17, [address] Boles at [place] with 2 sessile polypoid lesions were found, [...] left kidney. Patient was then referred to [facility] for further management. December 31, 2024 MRI [...] January 23, 2025 robotic right hemicolectomy at [facility] by Dr. Antonio. Pathology: Right colon terminal [...] January 23, 2025 robotic right hemicolectomy at [facility]. March 21, 2025 adjuvant modified FOLFOX 6 [...] abd pain, N/V, swelling of her extremities. [facility] Medical History Anemia Diarrhea due to drug [...] robotic assisted right hemicolectomy December 2024 at [facility]. There are 2 subcentimeter too small to [...] Cosigner Signature: Date (if applicable) CC: ~ [place] [employer] Work Phone: 1(690) 418-626606-17-2025 Progress [facility] [address] [address] OFFICE VISIT Date of Service: 04/18/2529 MR#: [id number] Acct: [id number] Name: JESSIKA CARRILLO Rep #: [id number] : 1950 From: New peterson MD Age/Sex: 74/F Location: [facility] [place] Status: Signed HPI Subjective Date of Service 04/18/25 Chief Complaint Colon cancer on treatment History of Present Illness 74-year-old female with no family of colon cancer had screening colonoscopy August 17, 2024 by at [place] with 2 sessile polypoid lesions were found, [...] left kidney. Patient was then referred to [facility] for further management. December 31, 2024 MRI [...] January 23, 2025 robotic right hemicolectomy at [facility] by Dr. Antonio. Pathology: Right colon terminal [...] January 23, 2025 robotic right hemicolectomy at [facility]. March 21, 2025 adjuvant modified FOLFOX 6 [...] Delivery Method room air room air Intake Nail Specialist Required: No Accompanied by: Daughter Is patient [...] no focal motor deficits Coordination / Balance: ejpugg-ts-zray test normal Speech: speech normal Gait (Neuro): [...] post robotic assistedright hemicolectomy December 2024 at [facility]. There are 2 subcentimeter too small to [...] impression and plan discussed. [place] MD Human Resources Representative, [facility] Divisions of Medical Oncology & Hematology Department of Internal Medicine [place] [address] This note was generated using a voice [...] Cosigner Signature: Date (if applicable) CC: ~ [facility]06-17-2025 Progress note Author [place] [facility] Note Date/Time April 18, 2025 9:54 am [facility] [address] [address] OFFICE VISIT Date of Service: 04/18/25 0929 MR#: [id number] Acct: [id number] Name: JESSIKA CARRILLO Rep #: [id number] : 1950 From: New peterson MD Age/Sex: 74/F Location: [facility] [place] Status: Signed HPI Subjective Date of Service 04/18/25 Chief Complaint Colon cancer on treatment History of Present Illness 74-year-old female with no family of colon cancer had screening colonoscopy August 17, [address] Boles at [place] with 2 sessile polypoid lesions were found, [...] left kidney. Patient was then referred to [facility] for further management. December 31, 2024 MRI [...] January 23, 2025 robotic right hemicolectomy at [facility] by Dr. Antonio. Pathology: Right colon terminal [...] January 23, 2025 robotic right hemicolectomy at [facility]. March 21, 2025 adjuvant modified FOLFOX 6 [...] Delivery Method room air room air Intake Nail Specialist Required: No Accompanied by: Daughter Is patient [...] no focal motor deficits Coordination / Balance: xituwt-pc-fjdk test normal Speech: speech normal Gait (Neuro): [...] robotic assisted right hemicolectomy December 2024 at [facility]. There are 2 subcentimeter too small to [...] impression and plan discussed. [place] MD Human Resources Representative, [facility] Divisions of Medical Oncology & Hematology Department of Internal Medicine [place] [address] This note was generated using a voice [...] Cosigner Signature: Date (if applicable) CC: ~ [place] [employer] Work Phone: 1(723) 486-486705-20-2025 Progress [facility] [address] [place] [address] OFFICE VISIT Date of Service: 03/21/25 0800 MR#: [id number] Acct: [id number] Name: JESSIKA CARRILLO Rep #: [id number] : 1950 From: Alyssa Zavala ch, NP BRIDGE MAINTAINER-C Age/Sex: 74/F Location: [facility] [place] Status: Signed HPI Subjective Date of Service 03/21/25 Chief Complaint Colon cancer History of Present Illness 74-year-old female with no family of colon cancer had screening colonoscopy August 17, 2024 by at [place] with 2 sessile polypoid lesions were found, [...] left kidney. Patient was then referred to [facility] for further management. December 31, 2024 MRI [...] January 23, 2025 robotic right hemicolectomy at [facility] by Dr. Antonio. Pathology: Right colon terminal [...] January 23, 2025 robotic right hemicolectomy at [facility]. March 21, 2025- mFOLFOX Interval History The patient is presenting to clinic accompanied by adult daughter, Don for an evaluation anticipating she will begin adjuvant mFOLFOX. No diarrhea. LBM 03/21/25. Reports active lifestyle and good support system by way of daughters. [facility] Medical History (Updated 03/21/25 @ 08:45 by Alyssa Lynch BRIDGE MAINTAINER, BRIDGE MAINTAINER-C) Encounter for chemotherapy management Loss of hearing [...] post robotic assistedright hemicolectomy December 2024 at [facility]. There are 2 subcentimeter too small to [...] the past year?: No 03/21/25 0848 h BRIDGE MAINTAINER BRIDGE MAINTAINER-C> Date _ Alyssa Lynch BRIDGE MAINTAINER BRIDGE MAINTAINER-C Cosigner Signature: Date (if applicable) CC: ~ [facility]05-20-2025 Progress note Author Alyssa Lynch [facility] Note Date/Time March 21, 2025 8:48a m [facility] [address] [place] [address] OFFICE VISIT Date of Service: 03/21/25 0800 MR#: [id number] Acct: [id number] Name: JESSIKA CARRILLO Rep #: [id number] : 1950 From: Alyssa Zavala anita BRIDGE MAINTAINER BRIDGE MAINTAINER-C Age/Sex: 74/F Location: [facility] [place] Status: Signed HPI Subjective Date of Service 03/21/25 Chief Complaint Colon cancer History of Present Illness 74-year-old female with no family of colon cancer had screening colonoscopy August 17, [address] Boles at [place] with 2 sessile polypoid lesions were found, [...] left kidney. Patient was then referred to [facility] for further management. December 31, 2024 MRI [...] January 23, 2025 robotic right hemicolectomy at [facility] by Dr. Antonio. Pathology: Right colon terminal [...] January 23, 2025 robotic right hemicolectomy at [facility]. March 21, 2025- mFOLFOX Interval History The patient is presenting to clinic accompanied by adult daughter, Don for an evaluation anticipating she will begin adjuvant mFOLFOX. No diarrhea. LBM 03/21/25. Reports active lifestyle and good support system by way of daughters. [facility] Medical History (Updated 03/21/25 @ 08:45 by Alyssa Lynch BRIDGE MAINTAINER, BRIDGE MAINTAINER-C) Encounter for chemotherapy management Loss of hearing [...] robotic assisted right hemicolectomy December 2024 at [facility]. There are 2 subcentimeter too small to [...] Cosigner Signature: Date (if applicable) CC: ~ [facility] Work Phone: 1(197) 133-973405-19-2025 Radiology Diagnostic study note [facility] Imaging Services [address] [place], [place] [address] CXR for Line Placement MR#: [id number] Acct: [id number] Name: JESSIKA CARRILLO Rep #: [id number] : 1950 F 74 From: Tomer Greco MD PCP: JUVENTINO Pérez Status: [facility] Study:CXR for Line Placement Date of Exam: 03/20/25 Exam# [id number] Ordering Dr: St lou Gaines MD PROCEDURE: [...] No infiltrates. 3. No pneumothorax. Reading [facility] CC: Dr. Michael Gaines MD; JUVENTINO Pérez ~ [employer] Dispatcher: Signed [facility]05-19-2025 Consult note [facility] Medical Records Department [address] [place] [address] Anesthesia Postop Eval II 03/20/25 1424 MR#: [id number] Acct: [id number] Name: JESSIKA CARRILLO Rep #:[id number] : 1950 74 From: Josue Ceballos MD PCP: JUVENTINO Pérez Status:REG SDC Y Race: C Location: [place] [address] Anesthesia Postop Eval I Sum Postop Eval Completion status Anesthesia document: Postop Eval 1 completed: Yes Anesthesia Postop Eval I Summary Anesthesia Postop Eval I Summary: Anesthesia Postop Eval I: Assessment Summary Airway patent Yes 03/20/25 13:18 CHIEF CONTROLLER.HBARR Spontaneous unlabored Yes 03/20/25 13:18 CHIEF CONTROLLER.HBARR respirations Mental status Awake 03/20/25 13:18 CHIEF CONTROLLER.HBARR nausea No 03/20/25 13:18 CHIEF CONTROLLER.HBARR Vomiting No 03/20/25 13:18 CHIEF CONTROLLER.HBARR Anesthesia Postop Eval I: Fluid Summary Crystalloid volume administer 500 03/20/25 13:18 CHIEF CONTROLLER.HBARR (ml) Colloids volume administered ( ml) Blood Product volume administered (ml) Total IV fluid infused 500 03/20/25 13:18 CHIEF CONTROLLER.HBARR Anesthesia Postop Eval I: Summary Notes Anesthesia Complication No 03/20/25 13:18 CHIEF CONTROLLER.HBARR Anesthesia Complication Comment: Post-operative progress note Anesthesia: Postop Eval II Evaluation Mental status: Awake Pain Level: 0 nausea: No Vomiting: No 03/20/25 1424 > Date _ Josue Smyth Signature: Date CC: ~ Signed [facility]05-19-2025 History and physical note Author Michael Gaines [facility] Note Date/Time March 20, 2025 12:07 pm [facility] Medical Records Department [address] [place] [address] History & Physical Exam 03/20/25 1205 MR#: [id number] Acct: [id number] Name: JESSIKA CARRILLO Rep #:[id number] : 1950 74 From: Michael Gaines MD PCP: JUVENTINO Pérez Status:[facility] Location: [place] [address] HPI - General General Date of Admission: 03/20/25 Date of Service: 03/20/25 Chief Complaint: Mediport placement HPI Narrative JESSIKA CARRILLO, is a 74 F who presents today for Mediport placement. She was recently discovered to have colon cancer. Her treating oncologist have recommended chemotherapy. She is supposed to begin chemotherapy I believe on March 21. [facility] Medical History Loss of hearing Wears glasses [...] Dr. Michael Gaines MD; JUVENTINO Pérez~ Signed [facility] Work Phone: 1(147) 984-202005-19-2025 Procedure note [facility] Medical Records Department [address] [place] [address] Operative Report 03/20/25 1321 MR#: [id number] Acct: [id number] Name: JESSIKA CARRILLO Rep #:[id number] : 1950 74 From: Michael Gaines MD PCP: JUVENTINO Pérez Status:[facility] Location: [place] [address] Problems Associated Problem List Diagnoses (1) Colon cancer: Procedures Cardiovascular CF Procedures 33xxx-39xxx: 42889 Insert tunneled cv cath Operative Report (Standard) Operative Information Date of Procedure: 03/20/25 Pre-Operative Diagnosis: Colon cancer Post-Operative Diagnosis: Colon cancer Surgery/Procedure Performed: Left subclavian Mediport placement with C arm post graduate internship: No Type of Anesthesia: Local and MAC [...] prophylaxis not ordered: Treatment Not Indicated 03/20/25 3367 Cosigner Signature (if applicable): CC: Dr. Michael Gaines MD; JUVENTINO Pérez~ Signed [facility]05-19-2025 Discharge summary [facility] Medical Records Department [address] [place] [address] Instructions for Home/Discharge Instructions 03/20/25 1316 MR#: [id number] Acct: [id number] Name: JESSIKA CARRILLO Rep #:[id number] : 1950 74 From: Michael Gaines MD PCP: JUVENTINO Pérez Status[place] [place]charge Instructions Diet Discharge Diet: Light diet [...] Care Provider: Shu Chow Instructions Print Language: Italian Discharge Orders/Prescriptions Prescriptions: New oxycodone-acetaminophen [Percocet] 5-325 [...] Gaines MD CC: JUVENTINO Pérez ~ Signed [facility]05-19-2025 Consult note [facility] Medical Records Department [address] [place] [address] Anesthesia Postop Eval I 03/20/25 1317 MR#: [id number] Acct: [id number] Name: FITOShivaJESSIKA E Rep #:[id number] : 1950 74 From: Ora Perez CRNA PCP: JUVENTINO Pérez Status:REG SDC Y Race: C Location: [place] [address] Anesthesia: Postop Eval I Current Vital Signs [...] CRNA Cosigner Signature: Date CC: ~ Signed [facility]05-19-2025 Consult note Author Josue Ceballos [facility] Note Date/Time March 20, 2025 11:16 am [facility] Medical Records Department [address] [facility] [place] [address] Pre-Anesthesia Evaluation 03/20/25 1115 MR#: [id number] Acct: [id number] Name: FITOShivaJESSIKA E Rep #:[id number] : 1950 74 From: Josue Ceballos MD [...] PORT LEFT Anesthesia History Anesthesia History - matrix plater: Anesthesia History - matrix plater Hx Hospitalization No 03/17/25 11:44 Any Problems [...] take am of surgery PONV PONV - matrix plater: PONV - matrix plater Female Yes 03/17/25 11:44 HX of Motion [...] 03/17/25 08:59 Respiratory Assessment Respiratory Assessment - matrix plater: Respiratory Tract Infection Hx - matrix plater Hx Respiratory Tract Infection No 03/17/25 11:44 STOP Sleep Apnea STOP Sleep Apnea - matrix plater: STOP Sleep Apnea - matrix plater Hx Hypertension Yes: controlled with med 03/17/25 [...] Tobacco Use History Tobacco Use History - matrix plater: Tobacco Use History - matrix plater Tobacco Use Non-smoker 03/18/21 09:51 Smoking Status Former smoker 03/17/25 11:44 Hx Tobacco Use No 03/17/25 11:44 Years Smoking Packs Smoked per Day Smoking Cessation Date was No - quit smoking greater 03/17/25 11:44 within the last 15 years than 15 years ago Hx Smoking Cessation Date 11/02/89 03/17/25 11:44 Hx Smoking Cessation No 03/17/25 11:44 Counseling Hematologic Medial History Hematologic Hx - matrix plater: Hematologic Medical Hx - rn clinical documentation specialist Hx of Blood Transfusion No 03/17/25 11:44 [...] confused, unrespo /Reproduction History /Reproductive History - matrix plater: /Reproductive Hx- matrix plater Hx Now Gestational Age (in weeks): EDC: [...] MD Cosigner Signature: Date CC: ~ Signed [facility] Work Phone: 1(603) 440-302305-19-2025 History and physical note [facility] Medical Records Department [address] [place] [address] History & Physical Exam 03/20/25 1205 MR#: [id number] Acct: [id number] Name: JESSIKA CARRILLO Rep #:[id number] : 1950 74 From: Michael Gaines MD PCP: JUVENTINO Pérez Status:[facility] Location: [address] HPI - General General Date of Admission: 03/20/25 Date of Service: 03/20/25 Chief Complaint: Mediport placement HPI Narrative JESSIKA CARRILLO, is a 74 F who presents today for Mediport placement. She was recently discovered to have colon cancer. Her treating oncologist have recommended chemotherapy. She is supposed to begin chemotherapy I believe on March 21. [facility] Medical History Loss of hearing Wears glasses [...] Dr. Michael Gaines MD; JUVENTINO Pérez~ Signed [facility]05-19-2025 [facility] Medical Records Department [address] [place] [address] History Physical Exam 03/20/25 1205 MR#: [id number] Acct: [id number] Name: JESSIKA CARRILLO Rep #: [id number] : 1950 74 From: Michael Gaines MD PCP: JUVENTINO Pérez Status:[facility] Location: [place] [address] HPI - General General Date of Admission: 03/20/25 Date of Service: 03/20/25 Chief Complaint: Mediport placement HPI Narrative JESSIKA CARRILLO, is a 74 F who presents today for Mediport placement. She was recently discovered to have colon cancer. Her treating oncologist have recommended chemotherapy. She is supposed to begin chemotherapy I believe on March 21. [facility] Medical History Loss of hearing Wears glasses [...] CC: Dr. Michael Gaines MD; JUV[facility]INO [facility]rez [facility] Consult note [facility] Medical Records Department [address] [place] [address] Pre-Anesthesia Evaluation 03/20/25 1115 MR#: [id number] Acct: [id number] Name: JESSIKA CARRILLO Rep #:[id number] : 1950 74 From: Josue Ceballos MD PCP: JUVENTINO Pérez Status:REG SDC Y Race: C Location: [place] [address]- ASA Classification* ASA Classification ASA Classification: 2 [...] PORT LEFT Anesthesia History Anesthesia History - matrix plater: Anesthesia History - matrix plater Hx Hospitalization No 03/17/25 11:44 Any Problems [...] take am of surgery PONV PONV - matrix plater: PONV - matrix plater Female Yes 03/17/25 11:44 HX of Motion [...] 03/17/25 08:59 Respiratory Assessment Respiratory Assessment - matrix plater: Respiratory Tract Infection Hx - matrix plater Hx Respiratory Tract Infection No 03/17/25 11:44 STOP Sleep Apnea STOP Sleep Apnea - matrix plater: STOP Sleep Apnea - matrix plater Hx Hypertension Yes: controlled with med 03/17/25 [...] Tobacco Use History Tobacco Use History - matrix plater: Tobacco Use History - matrix plater Tobacco Use Non-smoker 03/18/21 09:51 Smoking Status Former smoker 03/17/25 11:44 Hx Tobacco Use No 03/17/25 11:44 Years Smoking Packs Smoked per Day Smoking Cessation Date was No - quit smoking greater 03/17/25 11:44 within the last 15 years than 15 years ago Hx Smoking Cessation Date 11/02/89 03/17/25 11:44 Hx Smoking Cessation No 03/17/25 11:44 Counseling Hematologic Medial History Hematologic Hx - matrix plater: Hematologic Medical Hx - rn clinical documentation specialist Hx of Blood Transfusion No 03/17/25 11:44 [...] confused, unrespo /Reproduction History /Reproductive History - matrix plater: /Reproductive Hx- matrix plater Hx Now Gestational Age (in weeks): EDC: [...] Josue Ramos Signature: Date CC: ~ Signed [facility]05-14-2025 Progress [facility] [place] [address] OFFICE VISIT Date of Service: 03/15/25 0805 MR#: [id number] Acct: [id number] Name: JESSIKA CARRILLO Rep #: [id number] : 1950 From: Alyssa Zavala anita MELLO BRIDGE MAINTAINER-C Age/Sex: 74/F Location: [facility] [place] Status: Signed HPI Subjective Date of Service 03/15/25 Chief Complaint Colon cancer History of Present Illness 74-year-old female with no family of colon cancer had screening colonoscopy August 17, 2024 by at [place] with 2 sessile polypoid lesions were found, [...] left kidney. Patient was then referred to [facility] for further management. December 31, 2024 MRI [...] January 23, 2025 robotic right hemicolectomy at [facility] by Dr. Antonio. Pathology: Right colon terminal [...] January 23, 2025 robotic right hemicolectomy at [facility]. Interval History The patient is presenting to clinic accompanied by adult daughterDon for an education visit. No diarrhea, has not identified any aggravating foods. Reports active lifestyle and good support system by way of daughters. [facility] Medical History (Updated 03/15/25 @ 08:16 by Alyssa Lynch BRIDGE MAINTAINER, BRIDGE MAINTAINER-C) Encounter for education Lung nodules Regional lymph [...] post robotic assistedright hemicolectomy December 2024 at [facility]. There are 2 subcentimeter too small to [...] the past year?: No 03/15/25 0930 h BRIDGE MAINTAINER BRIDGE MAINTAINER-C> Date _ Alyssa Lynch BRIDGE MAINTAINER BRIDGE MAINTAINER-C Cosigner Signature: Date (if applicable) CC: ~ [facility]05-14-2025 Progress note Author Alyssa Lynch [facility] Note Date/Time March 15, 2025 9:30a m [facility] [place] [address] OFFICE VISIT Date of Service: 03/15/25804 MR#: [id number] Acct: [id number] Name: JESSIKA CARRILLO Rep #: [id number] : 1950 From: Alyssa Zavala ch BRIDGE MAINTAINER BRIDGE MAINTAINER-C Age/Sex: 74/F Location: [facility] [place] Status: Signed HPI Subjective Date of Service 03/15/25 Chief Complaint Colon cancer History of Present Illness 74-year-old female with no family of colon cancer had screening colonoscopy August 17, [address] Boles at [place] with 2 sessile polypoid lesions were found, [...] left kidney. Patient was then referred to [facility] for further management. December 31, 2024 MRI [...] January 23, 2025 robotic right hemicolectomy at [facility] by Dr. Antonio. Pathology: Right colon terminal [...] January 23, 2025 robotic right hemicolectomy at [facility]. Interval History The patient is presenting to clinic accompanied by adult daughter, Don for an education visit. No diarrhea, has not identified any aggravating foods. Reports active lifestyle and good support system by way of daughters. [facility] Medical History (Updated 03/15/25 @ 08:16 by Alyssa Lynch BRIDGE MAINTAINER, BRIDGE MAINTAINER-C) Encounter for education Lung nodules Regional lymph [...] robotic assisted right hemicolectomy December 2024 at [facility]. There are 2 subcentimeter too small to [...] 0930 <Electronically signed by Alyssa li NP BRIDGE MAINTAINER-C> Date _ Alyssa Lynch NP BRIDGE MAINTAINER-C Cosigner Signature: Date (if applicable) CC: ~ [facility] Work Phone: 1(471) 286-373905-08-2025 Evaluation note* Diagnosis Onset Date Resolution Status [...] present acute March 15, 2025 7 :58am [place] [employer] [facility] Work Phone: 1(921) 766-367105-08-2025 Evaluation note* Diagnosis Onset Date Resolution Status [...] 9:51am Colon cancer acute March 20 11:03am [facility] Work Phone: 1(403) 853-734805-08-2025 Evaluation note* Diagnosis Onset Date Resolution Status [...] present acute March 21, 2025 7 :21am [facility] Work Phone: 1(895) 835-308905-08-2025 Evaluation note* Diagnosis Onset Date Resolution Status [...] present acute April 04, 2025 7 :42am [place] [employer] Work Phone: 1(698) 260-471605-08-2025 Evaluation note* Diagnosis Onset Date Resolution Status [...] is present acute April 18, [address] 8:[address] [facility] Work Phone: 1(336) 882-742405-08-2025 Evaluation note* Diagnosis Onset Date Resolution Status [...] present acute May 02, 2025 7 :29am [facility] Work Phone: 1(328) 923-244804-22-2025 History of Present illness Narrative* Malick Ricci, MANAGER PAYROLL-BANQUET COOK - 02/21/2025 1:45 PM EDT Chief Complaint: [...] Referral to oncology. Prefer to establish with [facility] as this is closer to home. Referral placed and faxed. Patient was seen in conjunction with Dr. Rosas and the plan of care was developed by him. KIRBY [facility] Colorectal Surgery * AFRICA Thomas - 02/21/2025 1:45 PM EDT I saw and evaluated the patient with BRIDGE MAINTAINER. I personally reviewed the chart / imaging [...] on as needed basis. documented in this encounterMer[facility]-22-[facility] Instructions* Patient Instructions* Irish Boyce RN - 02/21/2025 1:45 PM EDT Survey Following your visit today, you may receive a survey via text or email asking about your experience. We are always looking for ways to improve your visit. Please share your feedback and comments withus- We would love to hear from you! documented in this encounterOSU [facility] Telephone encounter Note* Telephone Encounter - Tricia Otero RN - 01/29/2025 12:15 PM EDT AUTOMATED POST DISCHARGE FOLLOW UP CALL Jessika Carrillo received an automated post discharge call on 01/29/2025 , after discharge from the hospital yesterday. An alert in the [employer] system was received after the patient completed the automated call assessment. The ([employer] System) Alert, medical record, and discharge summary were reviewed. A call back to the patient was then placed to the patient on 01/29/2025. [employer] Questionnaire with Alert: Feedback and alerts Question [...] the patient with regard to the (above) [employer] post- discharge alerts. In discussion of how [...] [facility] Yes 02/21/2025 1:45 PM Sachi Rosas Division of Colon & Rectal Surgery Arrive at: Arrive to [facility] Registration [phone] How do you plan to get to [...] that this number is routed to the [facility] Clinical Call Center nurse triage [...] s office, which is routed to the [facility] Call [place] nurse triage team afterhours. Discussed emergency plan with patient. If patient has a medical emergency, patient instructed to call 911, or proceed to their nearest emergency room. Assisted the patient to formulate a plan, such as keeping all healthcare provider numbers in a prominent place. Tricia Otero RN, BSN, [facility] Post Discharge Call Team & Nurse Clinical Call Center Team [facility]03-30-[facility]25 Miscellaneous Notes* Telephone Encounter - Tricia Otero RN - 01/29/2025 12:15 PM EDT AUTOMATED POST DISCHARGE FOLLOW UP CALL Jessika Carrillo received an automated post discharge call on 01/29/2025 , after discharge from the hospital yesterday. An alert in the [employer] system was received after the patient completed the automated call assessment. The ([employer] System) Alert, medical record, and discharge summary were reviewed. A call back to the patient was then placed to the patient on 01/29/2025. [employer] Questionnaire with Alert: Feedback and alerts Question [...] the patient with regard to the (above) [employer] post- discharge alerts. In discussion of how [...] [facility] Yes 02/21/2025 1:45 PM Sachi Rosas Division of Colon & Rectal Surgery Arrive at: Arrive to [facility] Registration [phone] How do you plan to get to [...] that this number is routed to the [facility] nurse triage team after hours. Do you [...] s office, which is routed to the [facility] Call [place] nurse triage team afterhours. Discussed emergency plan with patient. If patient has a medical emergency, patient instructed to call 911, or proceed to their nearest emergency room. Assisted the patient to formulate a plan, such as keeping all healthcare provider numbers in a prominent place. Tricia Otero RN, BSN, [facility] Post Discharge Call Team & Nurse Clinical Call Center Team documented in this encounterMercy [facility]03-29-2025 Nurse Note* Nursing Notes - Ryena Maher RN - 01/28/2025 12:28 PM EDT AVS read to pt and family they voice understanding. IV's removed. Meds reviewed. Pt d/c'd in stablecondition at this time. [facility]03-29-2025 Miscellaneous Notes* Nursing Notes - Reyna [...] Transport Request Mode of Transfer Private Vehicle [facility] PCR Discharge Note Jessika Carrillo was [...] to [facility] Floor Registration [facility] Risk of Readmission: 2.9% Risk of Readmission: [...] and weekend discharge assistance please page the neon sign maker PCRM at [phone]. PCRM to continue to follow and provide support. Natalia Etienne RN Float PCRM [phone] * Nursing Notes - Reyna Maher RN [...] Cowart PT , DPT, CLT License #: [id number] * Nursing Notes - Lianna Charles RN - 01/25/2025 8:09 PM EDT 1957 (R) PIV Infiltrated and removed. Pictured in chart along with abdominal sites 2007 Contacted neon sign maker regarding [id number] Jessika Carrillo. Pt's BP 191/111 (MAP 144). Hx HTN. Resting in bed. Denied pain/symptoms. No PRN for increased BP. Looks like she was elevated during the day as well. CB [phone] [id number] Inquired about tele order due to labetalol admin instructions 0420 Contacted neon sign maker regarding [id number] Jessika Carrillo. Pt reports having three loose black stools on shift. Patient states that this has been ongoing postoperatively. She was wondering if there was anything to help w/ BM. CB [phone] * Plan of Care - Nelly Ramirez RN - 01/25/2025 5:32 PM EDT Problem: Adult Inpatient Plan of Care Goal: Optimal Comfort and Wellbeing Intervention: Monitor Pain and Promote Comfort Flowsheets (Taken 01/25/2025 1731) Pain Management Interventions: [id number] dosing utilized diversional activity provided pain management [...] Transport Request Mode of Transfer Private Vehicle [facility] PCRM Discharge Note Jessika Carrillo was [...] & Rectal Surgery Arrive at: Arrive to [facility] First Floor Registration [facility] Risk of Readmission: 2.9% Risk of Readmission: [...] and weekend discharge assistance please page the neon sign maker PCRM at [phone]. PCRM to continue to follow and provide support. Natalia Etienne RN Float PCRM [phone] * Nursing Notes - Miracle Etienne RN - 01/24/2025 10:45 AM EDT 01/24/25 1045 Referral Information Arrived From operating room Readmission Information Was patient readmitted within 30 Days? No Information Source Information Source patient ;child Information Source Name Lucy Rosen Information Source Number [phone] Outpatient Providers Outpatient Providers Updated In IHIS Yes Contact Information Occupational Health Nurse Supervisor/SW Added to Care Team Yes This Correctional Counselor/Case Manager is Primary Occupational Health Nurse Supervisor/SW No Occupational Health Nurse Supervisor Name Natalia Etienne Occupational Health Nurse Supervisor's Social Work Contact Name Cluster coverage. Senior C Software Engineer's Phone Number see care team. Living Environment Lives With alone (daughter Don lives close by) Living Arrangement and Set Up house Provides Primary Care For no one Caregiving Concerns NA Primary Care Provided By self Support System Immediate family;Restorationist;Extended family;Friends;Neighbors Able to Return to Prior Arrangements [...] Yes Initial Discharge Planning Home Care Services (PIPE FITTER AMMONIA) No Home Therapies (PIPE [employer]TER [employer]MONIA) None DME (PIPE FITTER AMMONIA) None Medical Supplies (PIPE FITTER AMMONIA) None Patient Goal for Discharge Get better Anticipated Services at Discharge Outpatient clinical services (ie: lab draws, transfusions, injectables) Anticipated Changes Related to Illness none Current Discharge Risk chronically ill Transportation Available car Discharge Coordination/Progress pt to DC to home once medically stable. Home Care Services (PIPE FITTER AMMONIA) Additional Home Care Services (PIPE [employer]TER [place]MONIA) no Assessment/Concerns to be Addressed Concerns To [...] great support from her friends, neighbors and christianity. She hs no HHC or DME and [...] provide support. Natalia Etienne RN Float PCR [phone] For evening and weekend discharge assistance please page the neon sign maker PCRM at [phone]. * Plan of Care - Alberta Cowart, [...] Cowart PT , DPT, CLT License #: [id number] * Plan of Care - Leobardo Garcia [...] sign off at this time. Please call [phone] or page [phone] with any questions or concerns. Glendy Simms MD Anesthesiology * Nursing Notes - Yoav Schwartz RN - 01/23/2025 3:00 PM EDT On admission to [facility], from PACU a dual RN initial [...] - 01/23/2025 11:27 AM EDT Jessika Carrillo ([id number]) PRE OPERATIVE DIAGNOSIS Malignant neoplasm of ascending [...] Anesthesiologist: George Negron MD; Michael Blank MD Mail Clerk Assisting: Tanmay Martinez DDS SURGICAL STAFF Cloth Stock Sorter: Whitney Castillo RN Physician Smoking Pipe Repairer: Casi Kinney PA-C Relief Cloth Stock Sorter: Nelly Fuentes RN Relief Scrub: Chirag Sunshine; [...] 12:41 PM EDT documented in this encounterU [facility]03-29-[facility] History of Present illness Narrative* Breann Mar RN - 01/28/2025 12:15 PM EDT PCRM received message from bedside RN asking about home PT. Reviewed EMR, PT recommending OP rehab services. Team placed order for OP rehab. PCRM placed hand off for primary PCRM to schedule and follow up with the patient. ISAIAS Mcneal RN OCN Float PCRM Pager: [phone] Float Pager: [phone] If any changes to this individualized plan of care during evening and weekend hours and assistance is needed, please page the neon sign maker PCRM at [phone]. * Zainab Rosas MD - 01/28/2025 9:13 [...] agreement. Zainab Rosas MD * Malick Ricci APRN-BANQUET COOK - 01/27/2025 7:00 AM EDT Colorectal Surgery [...] sitting. x2 minutes, Mobility Assessment/Intervention: Rolling/Turning Mobility [place] Level: Rolling/Turning: independent Bed Features/Set-up: Rolling/Turning: Flat Skilled Intervention/Details: Rolling/Turning: use of log roll technique Supine to Sit Mobility [place] Level: Supine->Sit: independent Bed Features/Set-up: Supine->Sit: Flat Skilled Intervention/Details: Supine->Sit: use of log roll technique Sit to Supine Mobility [place] Level: Sit->Supine: independent Bed Features/Set-up: Sit->Supine: Flat Skilled Intervention/Details: Sit->Supine: use of log roll technique Transfer Assessment/Intervention: Sit to Stand Transfer [place] Level: Sit->Stand: independent Skilled Intervention/Details: Sit->Stand: from chair and EOB Stand to Sit Transfer [place] Level: Stand->Sit: independent Skilled Intervention/Details: Stand->Sit: to EOB and chair Bed-Chair Transfer [place] Level: Bed<->Chair: independent Skilled Intervention/Details: Bed<->Chair: walked around bed x 10 feet to chair on other sideof the room without the use of the FWW. did demonstrate bilateral trendelenberg Gait/Functional Mobility Assessment/Intervention: Gait Assessment [place] Level: Gait: modified independence Assistive Device: Gait: gait belt, front-wheeled walker Ambulation Distance (Feet): 800 Skilled Intervention/Details - Gait: demonstrated improved mike this session from previous session Stairs Assessment/Intervention: Outcome Score(s): [facility] Basic Mobility Inpatient Short Form Turning over in bed: 4 - No Assistance Moving from lying on back to sittin - No Assistance Moving to and from bed to chair: 4 - No Assistance Sitting/standing from chair: 4 - No Assistance Walk in hospital room: 4 - No Assistance Climbing 3-5 steps with a railin - A Little Assistance [facility] Mobility Raw Score: 23 [facility] Mobility Functional Limitation: 11.20% Impaired in Basic [...] Cowart PT , DPT, CLT License #: [id number] PT treatment consisted of the following to progress towards the above goal(s): PT Evaluation and Treatment Time Therapeutic Activity Time Entry: 15 Treating Therapist: Alberta Cowart PT , DPT, CLT License #: [id number] Additional Details: PT Co-Eval/Treatment Information Co-evaluation/co-treatment performed?: [...] Physical Therapy Discharge Summary. * Malick Ricci, MANAGER PAYROLL-BANQUET COOK - 01/26/2025 7:15 AM EDT Colorectal Surgery Daily Progress Note Attending: AFRICA Thomas Length of Stay: 3 Surgery: robotic R [...] EDT Introduced self and role of the customer support specialist to patient/family. Provided emotional and spiritual support and the patient/family responded by sharing their experience and discussed the following: Patient sitting in chair, no family present. Patient reports that she is doing ok, has family here to support her who are just not in the room at this time. Offered active listening, comfort, supportand prayer. Patient/family encouraged to request a customer support specialist as needed. Chaplains are available in-house 24 hours a day and 7 days a week. For urgent matters in the [facility],please page [phone]. If the request is not urgent, please enter a consult. Consults are responded to within 24 hours. Pattern Layout Worker Grace Garcias, Crow,MAHL, BCC Senior [facility] Bass 12, 18, 19 25/05 On-Call Pager [place] ([phone]) 01/25/25 1500 Clinical Encounter Type Visited With Patient Visit Type Introduction Pastoral Time Spent 15 min Referral (Rounding) Muslim Encounters Muslim Needs Prayer Spiritual Assessment Emotional Observation Coping well Hope Observation Specific hope focus Support Observation By Family Interventions Provided Active listening;Prayer;Supportive presence Facilitated Verbalization of feelings Explored Expectations Hybrid Technologist Education Hybrid Technologist Service Available Yes Educated Patient Plan of Care Continue Visiting PRN * Shila Lantigua, ARCHITECTURAL SUPERINTENDENT - 01/25/2025 1:41 PM EDTSummary: Psychosocial Assessment Psychosocial Assessment Per chart review, patient is a 74 y.o., female, who was 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 SW met with patient and daughters to introduce self, explain oncology social worker role during inpatient stay, and answer questions. Patient was alert and oriented x4 and agreeable to SW visit. Contact Information: Occupational Health Nurse Supervisor Name: Please see care team Social Work Contact Name: Please see care team Advance Directive Discussion: Patient does not have any advance directives on file. SW inquired whether or not patient is interested in completing health care power of estate attorney and/or living will paperwork during this [...] does NOT have to be completed at [facility] and canbe completed in the community by [...] of feelings and emotions. ALEKS Henry IRP Senior C Software Engineer PH: [phone] For Evening (4:30pm-8am), Weekend, and Holiday SW needs please call [phone] or page [phone]. * France Rooney RN - 01/25/2025 10:33 AM EDT Jessika Carrillo's POC discussed this morning in multidisciplinary rounds. Patient will discharge today as anticipated. [facility] All four prescriptions have been processed through insurance for steel pickler. Total co-pay is $4.00. PCRM met with [...] needed. France ESPARZA, RN, PCRM Phone #: [phone] For evening and weekend discharge assistance please page the neon sign maker PCRM at [phone]. Addendum at [phone]: Per Dr. Ocampo, patient will not be discharging today. * AMIRAH Fung - 01/24/2025 1:25 PM EDTSummary: KARINE Advance Directives Advance Directives Consult Reason for Consult: Patient wanting to complete advance directives. Referral Source: [facility]bal [facility] Advance Directives Discussion: SW met with pt who was A&Ox4 at the time of visit. Patient does not have any advance directives on file. SW inquired whether or not patient is interested in completing health care power of estate attorney and/or living will paperwork during this [...] does NOT have to be completed at [facility] and canbe completed in the community by either a public notary or witnessed by two individuals not relatedto the patient. Patient voiced understanding and stated plan to reach out to SW should they requireadditional information and/or assistance in completing the documents. Legal NOK: Patient has three adult children: Don (ph: [phone]), Christal (ph: [phone]), and Kaia (ph:[phone]). She reported her spouse is . * [...] and provide support. Natalia Etienne RN PCRM [phone] For evening and weekend discharge assistance please page the neon sign maker PCRM at [phone]. * Alberta Cowart, PT - 01/24/2025 9:23 [...] as close friends and neighbors from her christianity that have offered to help as much [...] numbness/tingling Mobility Assessment: Supine to Sit Mobility [place] Level: Supine->Sit: stand-by assist Bed Features/Set-up: Supine->Sit: Use of bed rail, Head of bed elevated Skilled Rationale: Verbal cues, Hand placement, Positioning, Technique of activity Skilled Intervention/Details: Supine->Sit: educated on use of log roll technique Sit to Supine Mobility [place] Level: Sit->Supine: not tested Skilled Intervention/Details: Sit->Supine: [...] positioning/posture Transfer Assessment: Sit to Stand Transfer [place] Level: Sit->Stand: stand-by assist Assistive Device: Sit->Stand: gait belt Skilled Rationale: Verbal cues, Hand placement Skilled Intervention/Details: Sit->Stand: from EOB Stand to Sit Transfer [place] Level: Stand->Sit: stand-by assist Assistive Device: Stand->Sit: gait belt Skilled Rationale: Verbal cues, Hand placement Skilled Intervention/Details: Stand->Sit: 1x to chair Gait/Functional Mobility: Gait Assessment [place] Level: Gait: contact guard assist (contact guard to standby assist) Assistive Device: Gait: gait belt (initially with handheld assist but progressed to ambulation without assist and) Ambulation Distance (Feet): 450 Gait Deviations Identified: decreased mike (decreased R LE stance time, apears antalgic however patient denies pain of the R LE, slight R LE trendelenberg) Gait Skilled Rationale: verbal Stairs: Outcome Score(s): [facility] Basic Mobility Inpatient Short Form Turning over in bed: 4 - No Assistance Moving from lying on back to sittin - No Assistance Moving to and from bed to chair: 3 - A Little Assistance Sitting/standing from chair: 4 - No Assistance Walk in hospital room: 3 - A Little Assistance Climbing 3-5 steps with a railin - A Little Assistance [facility] Mobility Raw Score: 21 [facility] Mobility Functional Limitation: 28.97% Impaired in Basic [...] Cowart PT , DPT, CLT License #: [id number] PT treatment consisted of the following to progress towards the above goal(s): PT Evaluation and Treatment Time PT Evaluation (Moderate) Time Entry: 22 Evaluating Therapist: Alberta Cowart PT , DINAH, CLT License #: [id number] Additional Details: PT Co-Eval/Treatment Information Co-evaluation/co-treatment performed?: [...] as close friends and neighbors from her christianity that have offered to help as much [...] Details: denies falls IADL History Primary Language: Italian Objective/Observation: Vitals/Vitals Responses to Treatment: WFL O2 [...] Edema: Mobility Assessment: Supine to Sit Mobility [place] Level: Supine->Sit: stand-by assist Bed Features/Set-up: Supine->Sit: Use of bed rail, Head of bed elevated Skilled Rationale: Positioning, Hand placement, Verbal cues, Technique of activity, Cues for increased safety Skilled Intervention/Details: Supine->Sit: x1 to R EOB; pt's bed slightly elevated to mimic homesetup; verbal cues for log rolling technique with good carryover; increased effort required Sit to Supine Mobility [place] Level: Sit->Supine: not tested Skilled Intervention/Details: Sit->Supine: pt seated in armed chair at end of session Transfer Assessment: Sit to Stand Transfer [place] Level: Sit->Stand: stand-by assist Assistive Device: Sit->Stand: gait belt Skilled Rationale: Positioning, Verbal cues, Full extension to upright positioning/posture Skilled Intervention/Details: Sit->Stand: x1 from EOB; good upright posture Stand to Sit Transfer [place] Level: Stand->Sit: stand-by assist Assistive Device: Stand->Sit: gait belt, armed chair Skilled Rationale: Positioning, Hand placement, Verbal cues, Controlled descent for sitting Skilled Intervention/Details: Stand->Sit: x1 to armed chair; verbal cues to reach back to assistwith controlled descent with fair eccentric control; verbal cues for breathing strategies during descent to assist with pain management Functional Mobility: Functional Mobility [place] Level: Functional Mobility/Gait: (CGA - SBA) Assistive [...] her stabillity is wobbly Outcome Score(s): [facility] Daily Activity Inpatient Short Form Putting on/Taking Off Lower Body Clothin - A Lot of Assistance Bathin - A Lot of Assistance Toiletin - A Little Assistance Putting on/Taking Off Upper Body Clothin - A Little Assistance Groomin - A Little Assistance Eatin - No Assistance [facility] Activity Raw Score: 17 [facility] Activity Functional Limitation/Modifier: 50.11% Currently Impaired in [...] Occupational Therapy Discharge Summary. * Vidhya Lucas, RAMBO-BANQUET COOK - 01/24/2025 7:37 AM EDT Colorectal Surgery [...] in agreement. KIRBY Dhaliwal documented in [facility] Nurse Note* Nursing Notes - Miracle Etienne RN - 01/27/2025 9:53 AM EDT 01/27/25 0953 Final Discharge Planning Discharge Disposition Home Plan Plan pt to DC to home in am. Patient/Family In Agreement With Plan yes Plan Comments see note Transport Request Mode of Transfer Private Vehicle [facility] PCR Discharge Note Jessika Carrillo was [...] [facility]al [facility]: [facility] PAYTON CORREA Risk [...] and weekend discharge assistance please page the neon sign maker PCRM at [phone]. PCRM to continue to follow and provide support. Natalia Etienne RN Float PCRM [phone] [facility]03-28-[facility] Nurse Note* Nursing Notes - Reyna Maher RN - 01/27/2025 9:10 AM EDT 0900- Lovenox education given pt able to perform return demonstration correctly at this time. [facility]03-27-[facility] Plan of care note* Plan of [...] more controlled. Patient is progressing as expected. [facility]03-[facility] Plan of care note* Plan of [...] Cowart PT , DPT, CLT License #: [id number] [facility]03-26-[facility] Nurse Note* Nursing Notes - Lianna Charles RN - 01/25/2025 8:09 PM EDT 195 (R) PIV Infiltrated and removed. Pictured in chart along with abdominal sites 2007 Contacted neon sign maker regarding [id number] Jessika Leid. Pt's BP 191/111 (MAP 144). Hx HTN. Resting in bed. Denied pain/symptoms. No PRN for increased BP. Looks like she was elevated during the day as well. CB [id number] Inquired about tele order due to labetalol admin instructions 0420 Contacted neon sign maker regarding [id number] Jessika Leid. Pt reports having three loose black stools on shift. Patient states that this has been ongoing postoperatively. She was wondering if there was anything to help w/ BM. [phone] [facility]03-26-[facility] Plan of care note* Plan of Care - Nelly Ramirez RN - 01/25/2025 5:32 PM EDT Problem: Adult Inpatient Plan of Care Goal: Optimal Comfort and Wellbeing Intervention: Monitor Pain and Promote Comfort Flowsheets (Taken 01/25/2025 1731) Pain Management Interventions: buaizg-glf-fntiz dosing utilized diversional activity provided pain management plan reviewed with patient/caregiver premedicated for activity [facility]03-26-[facility] Nurse Note* Nursing Notes - Nelly Ramirez RN - 01/25/2025 3:54 PM EDT This RN notified Dr. Rica Ocampo via secure chat, patient with 550 ml emesis after ambulation. IV nausea medicine given. Dr. Strauss at bedside to assess. New orders place, NPO and XR A/P. This Rn will continue to monitor. [facility]03-[facility] Nurse Note* Nursing Notes - Yoav Schwartz RN - 01/24/2025 4:40 PM EDT Patient had 3 bowel movements today. Bowel movements look bloody, picture of last BM taken and uploaded to chart. Vidhya Lucas NP notified. [facility]03-[facility] Nurse Note* Nursing Notes - Miracle Etienne RN - 01/24/2025 3:12 PM EDT 01/24/25 1512 Final Discharge Planning Discharge Disposition Home Services at Discharge Outpatient clinical services (ie: lab draws, transfusions, injectables) Plan Plan pt to DC to home in am as she remains stable. Patient/Family In Agreement With Plan yes Plan Comments see note Transport Request Mode of Transfer Private Vehicle [facility] PCRM Discharge Note Jessika Carrillo was [...] & Rectal Surgery Arrive at: Arrive to [facility] First Floor Registration [facility] Risk of Readmission: 2.9% Risk of Readmission: [...] and weekend discharge assistance please page the neon sign maker PCRM at [phone]. PCRM to continue to follow and provide support. Natalia Etienne RN Float PCRM [phone] [facility] Discharge instructions* Discharge Instructions* KIRBY Dhaliwal - 01/24/2025 11:09 AM EDT Images from the original note were not included. COLORECTAL ADDITIONAL CONTACTS For Concerns During Weekend or Evening Hours: -If you have questions or concerns call and ask the graining operator to page the surgical services assistant neon sign maker. Reminder: [employer] messaging goes unmonitored during evenings and weekends. Any concerns or questions during this time, please call using instructions above. Clinic Office Main Number: [phone] Colorectal non-Cancer: [phone] Fax Line: [phone] Occupational Health Nurse Supervisor: Akua Azevedo ([facility]) BILLING RELATED QUESTIONS, please call [phone] ENTEROSTOMAL THERAPY RN + OSTOMY Clinic+ IMPORTANT: Automated Post Discharge Call Patient Information As part of your care, we will call you at the primary number we have on file, the day after you aredischarged at 9:30 a.m. to check on you. Please expect a two-minute automated telephone call from the hospital. This call will come from [phone]. If you are unable to answer or do not receive the automated call, please call [phone] to complete this important evaluation. By answering the phone evaluation, a [facility] nurse will be notified if you have any questions or concerns and call you back. If you have an immediate medical need call your doctor s office, or if you have a medical emergencycall 911. * Medications* KIBRY Dhaliwal - 01/24/2025 11:08 AM EDT Pain [...] questions or concerns call and ask the graining operator to have the general surgery chief resident paged. Reminder: [employer] messaging goes unmonitored during evenings and weekends. Any concerns or questions during this time, please call using instructions above. Clinic Office Main Number: [phone] NOTIFY PHYSICIAN: SYMPTOMS WOUND INFECTION - Increase [...] glue off your skin. documented in this encounterMer[facility]03-[facility]25 Nurse Note* Nursing Notes - Miracle Etienne RN - 01/24/2025 10:45 AM EDT 01/24/25 1045 Referral Information Arrived From operating room Readmission Information Was patient readmitted within 30 Days? No Information Source Information Source patient ;child Information Source Name Lucy Rosen Information Source Number [phone] Outpatient Providers Outpatient Providers Updated In IHIS Yes Contact Information Occupational Health Nurse Supervisor/SW Added to Care Team Yes This Correctional Counselor/Case Manager is Primary Occupational Health Nurse Supervisor/SW No Occupational Health Nurse Supervisor Name Natalia Etienne Occupational Health Nurse Supervisor's Social Work Contact Name Cluster coverage. Senior C Software Engineer's Phone Number see care team. Living Environment Lives With alone (daughter Don lives close by) Living Arrangement and Set Up house Provides Primary Care For no one Caregiving Concerns NA Primary Care Provided By self Support System Immediate family;Restorationist;Extended family;Friends;Neighbors Able to Return to Prior Arrangements [...] Yes Initial Discharge Planning Home Care Services (PIPE FITTER AMMONIA) No Home Therapies (PIPE FITTER AMMONIA) None DME (PIPE FITTER AMMONIA) None Medical Supplies (PIPE FITTER AMMONIA) None Patient Goal for Discharge Get better Anticipated Services at Discharge Outpatient clinical services (ie: lab draws, transfusions, injectables) Anticipated Changes Related to Illness none Current Discharge Risk chronically ill Transportation Available car Discharge Coordination/Progress pt to DC to home once medically stable. Home Care Services (PIPE FITTER AMMONIA) Additional Home Care Services (PIPE FITTER AMMONIA) no Assessment/Concerns to be Addressed Concerns To [...] great support from her friends, neighbors and christianity. She hs no HHC or DME and [...] provide support. Natalia Etienne RN Float PCRM [phone] For evening and weekend discharge assistance please page the neon sign maker PCRM at [phone]. [facility]03-[facility] Plan of care note* Plan of [...] Cowart PT , DPT, CLT License #: [id number] [facility]03-[facility] Plan of care note* Plan of [...] completion at recommended discharge destination. Outcome: Ongoing [facility] Plan of care note* Plan of [...] sign off at this time. Please call [phone] or page [phone] with any questions or concerns. Glendy Simms MD Anesthesiology [facility] Work Phone: [phone] Nurse Note* Nursing Notes - Yoav Schwartz RN - 01/23/2025 3:00 PM EDT On admission to [facility], from PACU a dual RN initial [...] Score: 20 LDA Added:No Yoav Schwartz RN [facility]03-24-[facility]25 Plan of care note* Plan of [...] - will continue to monitor KIRBY Dhaliwal [facility]03-24-[facility] Surgery Postoperative evaluation and management note* [...] and present throughout the entire case. [facility]03-24-2025 Surgery Postoperative evaluation and management note* Brief Op Note - Giorgio Mares MD - 01/23/2025 11:27 AM EDT Jessika Carrillo ([id number]) PRE OPERATIVE DIAGNOSIS Malignant neoplasm of ascending [...] Anesthesiologist: George Negron MD; Michael Blank MD Mail Clerk Assisting: Tanmay Martinez DDS SURGICAL STAFF Cloth Stock Sorter: Whitney Castillo RN Physician Smoking Pipe Repairer: Casi Kinney PA-C Relief Cloth Stock Sorter: Nelly Fuentes RN Relief Scrub: Chirag Sunshine; [...] Thomas at 01/25/2025 12:41 PM EDT [facility] Work Phone: 1(492) 734-107103-24-2025 Nurse Surgical operation note* Whitney Castillo RN - 01/23/2025 8:18 AM EDT 0810 Family notified of surgery start 937 Family updated 1040 Hand-off report sent to PACU charge nurse 1058 PACU given notice of arrival 1132 Patient extubated and transported to PACU with anesthesia at bedside on oxygen inhalation. [facility] Note* Whitney Castillo RN - 01/23/2025 [...] seizure or stroke. documented in this encounterOSU [facility] Nurse Surgical operation note* Maurisio Finn RN - 01/23/2025 6:21 AM EDT Patient denies hx of chemo and radiation. Patient denies metal or foreign objects in body. EXCEPT Rknee replacement. Patient denies hx of seizure or stroke. [facility]03-11-2025 History and physical note* Mackenzie Reyes APRN-BANQUET COOK - 01/10/2025 3:00 PM EDT Images from the original note were not included. PREOPERATIVE ASSESSMENT H&P [facility] Name: eJssika Carrillo Date of Surgery: 01/23/2025 . Surgeon: [...] Oral Opening - 3 FB Teeth - capitan grande band dentition Cervical range of motion - within [...] denies a history of cardiac events or [place]. Denies chest pain, palpitation or worsening SOB over the last few months ASSESSMENT AND PLAN- # Functional status - METS: Moderate: 4-7 METS functional status. 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 It is intended as oypf-cy-dytr communication. It is written in medical language and may contain abbreviations or verbiagethat are unfamiliar. It may appear blunt or direct. Medical documents are intended to carry relevant information, facts as evident, and the clinical opinion of the practitioner. Mackenzie Reyes, MANAGER PAYROLL-BANQUET COOK [facility] Perioperative Clinic [facility] [address] [facility] Review of Systems (OSUROS) Review of Systems [...] Chow PA-C as PCP - General (Physician Smoking Pipe Repairer) Family History Problem Relation Age of Onset Heart Disease - Other Father Breast Cancer Paternal Aunt 2 aunts with breast cancer Social History Socioeconomic History Marital status: Tobacco Use Smoking status: Former Current packs/day: 0.00 Types: Cigarettes Quit date: 12/06/2019 Years since quittin.1 Smokeless tobacco: Never Substance and Sexual Activity Alcohol use: Yes Comment: wine twice per year Drug use: Never [facility]03-11-2025 History and physical note* KIRBY Segovia - 01/10/2025 3:00 PM EDT Images from the original note were not included. PREOPERATIVE ASSESSMENT H&P [facility] Name: Jessika Carrillo Date of Surgery: [...] Oral Opening - 3 FB Teeth - capitan grande band dentition Cervical range of motion - within [...] denies a history of cardiac events or [place]. Denies chest pain, palpitation or worsening SOB over the last few months ASSESSMENT AND PLAN- # Functional status - METS: Moderate: 4-7 METS functional status. 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 It is intended as vdlc-uu-vyrg communication. It is written in medical language and may contain abbreviations or verbiagethat are unfamiliar. It may appear blunt or direct. Medical documents are intended to carry relevant information, facts as evident, and the clinical opinion of the practitioner. Mackenzie Reyes, MANAGER PAYROLL-BANQUET COOK [facility] [address] [facility] Review of Systems (OSUROS) Review of Systems [...] Chow PA-C as PCP - General (Physician Smoking Pipe Repairer) Family History Problem Relation Age of Onset [...] year Drug use: Never documented in this encounterMer[facility]03-11-2025 Instructions* Patient Instructions* Shanell Mayo LPN [...] TRANSFUSE OR RED BLOOD CELLS: 2 Units NC ECG, CLINIC PERFORMED PREOPERATIVE MEDICATION INSTRUCTIONS Below are instructions for what to do with your medicines before your surgery/procedure. Take the medications marked take the morning of surgery/procedure with a sip of water. Please follow this table below for instructions on which medications to hold prior to surgery If you have a change in daily medications prior to surgery/procedure, call the [facility] at [phone]. Current Outpatient Medications Medication Sig Acetaminophen 325 [...] as, but not limited to, fish oil ([place]-3), garlic,glucosamine -chondroitin, gingko, ginseng, probiotics, or multivitamins) [...] Do not wear artificial nails or nail [place] citizen the day of surgery. Do NOT bring [...] area for 1 week prior to surgery. [place] your teeth and rinse your mouth the [...] your scheduled surgery, please notify our team ([facility])and your surgeon's office. You may need to have your surgery moved, as we would not want to put youat risk for complications, You MUST arrange for a responsible adult to drive you to your procedure, stay for the surgery, listen to discharge instructions, and drive you home after surgery, otherwise your surgery may be cancelled. [facility] Preoperative Testing Clinic Mary Cain [phone] AVS/EEH documented in this encounterOSTrihealth03-11-2025 History of Present illness Narrative* Hali Barnett [...] a coupon for Ensureproducts. documented in this encounterMer[facility]03-11-2025 Instructions* Patient Instructions* Hali Barnett RN [...] to make arrangements for lodging at the [facility] , or the [facility], [address] [facility], . Discounted rates are available upon request at the [facility]. Please inquire about free shuttle service to and from the hospital. [employer] shuttle service can be contacted at . On the Day of Surgery: Please check in at the central Registration Office on the carpentry professional (2 hours prior to surgery time). After Registration you be directed to our Perioperative Unit for your procedure. Surgery times can vary from the actual scheduled times. They can be either longer or shorter than expected. Please check the below website for our current Visitor Policy prior to your scheduled Surgery: [email or web address] Pre-Operative Bowel Preparation [facility] 20[facility] A bowel prep is done to prepare the bowel for surgery or a procedure. Its purpose is to clear out the bowel of all solid matter. Please follow these instructions. Begin the bowel prep on the day before your scheduled surgery. Prescriptions will be sent to your pharmacy [facility] [address] [place] [id number] [facility] for: Dulcolax 20 mg (available over the [...] pulp Popsicles Ice Soft drinks Gatorade (Lemon Mechoopda preferred) Clear broth or bouillon Jell-O Coffee [...] is not red, orange, or purplein color. Lemon-new kolig[place] is preferred. You may need to pour [...] program. You can also get help through: [facility] Tobacco Dependency [facility], National Quit Line, [place] Lung Association, [place] Cancer Society, Smokefree.gov website Stop Alcohol Use [...] Anonymous (AA) http://www.aa.org/ Rethinking Drinking https://www.rethinkingdrinking.niaaa.nih.gov/ National [place] of Alcohol Abuse and Alcoholism https://niaaa.nih.gov/ [facility] Jerome 623-689-6462 -Inpatient, partial hospitalization and outpatient services for [...] Patient Controlled Analgesia (also known as a CRTS) A CRTS is a pain pump that could be [...] Care Everywhere. * Colorectal Resection (Lexis Paul) (Italian) * Use of Incentive Spirometer Before Your Surgery (Lexis Paul) (Italian) documented in this encounterOSU [facility] History of Present illness Narrative* [...] regarding the kidney abnormality. documented in this encounterMercy Health [facility]02-04-2025 Instructions* Patient Instructions* Irish Boyce RN [...] to hear from you! documented in this encounterOSTrihealthConsult note Author Ora Perez [facility] Note Date/Time March 20, 2025 1:18p [facility] Medical Records Department [address] [place] [address] Anesthesia Postop Eval I 03/20/25 1317 MR#: [id number] Acct: [id number] Name: JESSIKA CARRILLO Rep #:[id number] : 1950 74 From: Ora Perez CRNA PCP: JUVENTINO Pérez Status:REG [facility] Race: C Location: [place] [address] Anesthesia: Postop Eval I Current Vital Signs [...] CRNA Cosigner Signature: Date CC: ~ Signed [facility] Work Phone: Consult note Author Josue Ceballos [facility] Note Date/Time March 20, 2025 2:24p [facility] Medical Records Department [address] [place] [address] Anesthesia Postop Eval II 03/20/25 1424 MR#: [id number] Acct: [id number] Name: JESSIKA CARRILLO Rep #:[id number] : 1950 74 From: Josue Ceballos MD PCP: JUVENTINO Pérez Status:REG SDC Y Race: C Location: [address] Anesthesia Postop Eval I Sum Postop Eval Completion status Anesthesia document: Postop Eval 1 completed: Yes Anesthesia Postop Eval I Summary Anesthesia Postop Eval I Summary: Anesthesia Postop Eval I: Assessment Summary Airway patent Yes 03/20/25 13:18 CHIEF CONTROLLER.HBARR Spontaneous unlabored Yes 03/20/25 13:18 CHIEF CONTROLLER.HBARR respirations Mental status Awake 03/20/25 13:18 CHIEF CONTROLLER.HBARR nausea No 03/20/25 13:18 CHIEF CONTROLLER.HBARR Vomiting No 03/20/25 13:18 CHIEF CONTROLLER.HBARR Anesthesia Postop Eval I: Fluid Summary Crystalloid volume administer 500 03/20/25 13:18 CHIEF CONTROLLER.HBARR (ml) Colloids volume administered ( ml) Blood Product volume administered (ml) Total IV fluid infused 500 03/20/25 13:18 CHIEF CONTROLLER.HBARR Anesthesia Postop Eval I: Summary Notes Anesthesia Complication No 03/20/25 13:18 CHIEF CONTROLLER.HBARR Anesthesia Complication Comment: Post-operative progress note Anesthesia: Postop Eval II Evaluation Mental status: Awake Pain Level: 0 nausea: No Vomiting: No 03/20/25 1424 <Electronically signed by Josue Ceballos MD > Date _ Josue Ceballos MD [facility] Centerign Signature: Date CC: ~ Signed [facility] Work Phone: Discharge summary Author Michael Gaines [facility] Note Date/Time March 20, 2025 1:20p m [facility] Medical Records Department [address] [place] [address] Instructions for Home/Discharge Instructions 03/20/25 1316 MR#: [id number] Acct: [id number] Name: JESSIKA CARRILLO Rep #:[id number] : 1950 74 From: Michael Gaines MD PCP: JUVENTINO Pérez Status[place] [facility] [place] Instructions Diet Discharge Diet: Light diet [...] for Your Visit: Mediport placement Attending Provider: Micheal Gaines Primary Care Provider: Shu Chow Instructions Print Language: Italian Discharge Orders/Prescriptions Prescriptions: New oxycodone-acetaminophen [Percocet] 5-325 [...] Gaines MD CC: JUVENTINO Pérez ~ Signed [facility] Work Phone: Evaluation note* Diagnosis Malignant neoplasm of ascending colon- Primary [facility] Malignant neoplasm of ascending colon [facility] Diagnosis Malignant neoplasm of ascending colon [facility] Diagnosis Malignant neoplasm of ascending colon- Primary Malignant neoplasm of ascending colon [facility] Diagnosis Preop exam for internal medicine- Primary Other specified pre-operative examination Malignant neoplasm of ascending colon Essential hypertension Unspecified essential hypertension Mixed hyperlipidemia Abnormal coagulation profile Malignant neoplasm of ascending colon [facility] Diagnosis Colon cancer- Primary Malignant neoplasm of colon, unspecified site Malignant neoplasm of ascending colon [facility] Diagnosis [facility]ignant neoplasm of ascending colon- [facility]/CAT Scan (Routine) - Closed Specialty Diagnoses / Procedures Referred By Yaw gayle Referred To Contact Diagnoses Malignant neoplasm of ascending colon Procedures CT CHEST WITH CONTRAST CHG DIAGNOSTIC COMPUTED TOMOGRAPHY THORAX W/CONTRAST Sachi Rosas MBBS [address] [address] Phone: tel: fax: Referral ID Status Reason Start Date Expiration Date Visits Re quested Visits Authorized [id number] Closed 12/06/2024 12/31/2025 1 1 [facility] for visit Narrative* MRI/CAT Scan (Routine) - Closed Specialty Diagnoses / Procedures Referred By Yaw gayle Referred To Contact Diagnoses Malignant neoplasm of ascending colon Procedures MRI ABDOMEN WITH AND WITHOUT CONTRAST CHG MRI ABDOMEN W/O CONTRAST FLWD BY W/CONTRAST Sachi Rosas MBBS [address] [address] Phone: tel: fax: Referral ID Status Reason Start Date Expiration Date Visits Re quested Visits Authorized [id number] Closed 12/06/2024 12/31/2025 1 1 [facility] Auth/Cert Specialty Diagnoses / Procedures Referred By Yaw t Referred To Contact Diagnoses Malignant neoplasm of ascending colon Malignant neoplasm of ascending colon [C18.2] Procedures NC LAPAROSCOPY COLECTOMY PARTIAL W/ANASTOMOSIS COLECTOMY PARTIAL ROBOTIC XI RIGHT Sahci Rosas, MBBS [address] [place] [address] Phone: tel: fax: [facility] [address] [place] [address] Referral ID Status Reason Start Date Expiration Date Visits Re quested Visits Authorized [id number] 1 1 [facility] Summary Purpose Family History No Family [...] Do you have a Healthcare Power of Paper Machine Backtender? No March 17, 2025 11:44am Advance Directive Response Recorded Date/ Time Do you have a Healthcare Power of Paper Machine Backtender? No March 17, 2025 11:44am Advance Directives on File No March 032024 11:35am Living Will No March 23, 2025 1 1:35am Do you have a Healthcare Power of Paper Machine Backtender? No March 23, 2025 11:35am Advance Directives No March 23 11:35am Advance Directive Response Recorded Date/ Time Do you have a Healthcare Power of Paper Machine Backtender? No March 17, 2025 11:44am Advance Directives on File No April 06, 2025 3:33pm Living Will No April 06, 2025 3 :33pm Do you have a Healthcare Power of Paper Machine Backtender? No April 06, 2025 3:33pm Advance Directives No April 06 3:33pm Advance Directive Response Recorded Date/ Time Do you have a Healthcare Power of Paper Machine Backtender? No March 17, 2025 11:44am Advance Directives on File No April 20, 2025 12:28pm Living Will No April 20, 2025 12:28pm Do you have a Healthcare Power of Paper Machine Backtender? No April 20, 2025 12:28pm Advance Directives [...] 2025 7:42a m Encounter for chemotherapy management [facility] 2024 7:42am Lung nodules April 04, 2025 7:42a m Regional lymph node metastasis present [facility] 2024 7:42am Chief Complaint Admit Date [...] m Regional lymph node metastasis present J [facility] 2024 7:42am Anemia April 18, 2025 8:49 am Colon cancer April 18, 2025 8:49 am Diarrhea due to drug April 18, 2025 8:4 9am Lung nodules April 18, 2025 8:49 am Regional lymph node metastasis present J [facility] 2024 8:49am Chief Complaint Admit Date [...] section and content) DATE CREATED AUTHOR 04/27/2018 [facility] DATE CREATED AUTHOR AUTHOR'S ORGANIZ ATION 01/02/2024 [facility] ([place]) DATE CREATED AUTHOR AUTHOR'S ORGANIZ ATION 09/26/2024 [facility] DATE CREATED AUTHOR AUTHOR'S ORGANIZ ATION 11/18/2024 [facility] DATE CREATED AUTHOR AUTHOR'S ORGANIZ ATION 03/19/2025 [facility] DATE CREATED AUTHOR AUTHOR'S ORGANIZ ATION 04/29/2025 [facility] DATE CREATED AUTHOR AUTHOR'S ORGANIZ ATION 05/07/2025 [facility] Reason for Visit (unrecogniz ed section and content) Reason Comments New Patient Colon adenocarcinoma at 30 cm, possible mets Specialty Diagnoses / Procedures Referred By Contac t Referred To Contact Colon & Rectal Surgery Diagnoses Adenocarcinoma of colon Flex [facility] [address] [facility] [address] [place] [address] Phone: tel: fax: [facility] [address] [place] [address] Referral ID Status Reason Start Date Expiration Date V isits Requested Visits Authorized [id number] Pending Review 11/22/2024 12/17/2025 1 1 Reason Comments Other Pre op teaching- CER Reason Comments Preoperative Assessment Specialty Diagnoses / Procedures Referred By Yaw gayle Referred To Contact PreOp Diagnoses Malignant neoplasm of ascending colon Sachi Rosas, [place] [address] [place] [address] Phone: tel: fax: Referral ID Status Reason Start Date Expiration Date V isits Requested Visits Authorized [id number] New Request 01/03/2025 01/28/2026 1 1 Reason Onset Date Comments Post-Discharge Follow Up 01/29/2025 Do you have any questions about your follow up process or care instructions that we have provided? Yes Patient Education 01/29/2025 Reason Comments Post Op Visit 01/23/2025 COLECTOMY PARTIAL ROBOTIC XI RIGHT Care Teams (unrecognized sec tion and content) Nailing Machine Feeder Relationship Specialty Start Date End Date Shu Chow PA-C [address] [place] [phone] PCP - General Physician Smoking Pipe Repairer 12/06/24 Nailing Machine Feeder Relationship Specialty Start Date End Date Shu Chow PA-C [address] [place] [phone] PCP - General Physician Smoking Pipe Repairer 12/06/24 Nailing Machine Feeder Relationship Specialty Start Date End Date Shu Chow PA-C [address] [place] [phone] PCP - General Physician Smoking Pipe Repairer 12/06/24 Nailing Machine Feeder Relationship Specialty Start Date End Date Shu Chow PA-C [address] [place] [phone] PCP - General Physician Smoking Pipe Repairer 12/06/24 Nailing Machine Feeder Relationship Specialty Start Date End Date Shu Chow PA-C [address] [place] [phone] PCP - General Physician Smoking Pipe Repairer 12/06/24 Nailing Machine Feeder Relationship Specialty Start Date End Date Shu Chow PA-C [address] [place] [phone] PCP - General Physician Smoking Pipe Repairer 12/06/24 Sachi Rosas MBBS [address] [address] Colon Rectal Surgeon Colon And Rectal Surgery 01/24/25 Eleonora Mcgarry, lamp tester and inspector 01/27/25 Nailing Machine Feeder Relationship Specialty Start Date End Date Shu Chow PA-C [address] [place] [phone] PCP - General Physician Smoking Pipe Repairer 12/06/24 Sachi Rosas MBBS [address] [address] Colon Rectal Surgeon Colon And Rectal Surgery 01/24/25 Eleonora Mcgarry, lamp tester and inspector 01/27/25 Nailing Machine Feeder Relationship Specialty Start Date End Date Shu Chow PA-C PCP - General Physician Smoking Pipe Repairer 12/06/24 Sachi Rosas MBBS [address] [place] [address] Colon Rectal Surgeon Colon And Rectal Surgery 01/24/25 Desiree Luna LISW Senior C Software Engineer 02/21/25 Team Status: Active Member Role Status [...] 2025 End: March 15, 2025 Alyssa Lynch BRIDGE MAINTAINER, BRIDGE MAINTAINER-C Attending Provider Active Start: March 15, 2025 [...] 2025 End: March 21, 2025 Alyssa Lynch BRIDGE MAINTAINER, BRIDGE MAINTAINER-C Attending Provider Active Start: March 21, 2025 [...] 2025 End: April 04, 2025 Alyssa Lynch BRIDGE MAINTAINER, BRIDGE MAINTAINER-C Attending Provider Active Start: April 04, 2025 [...] 2025 End: March 15, 2025 Alyssa Lynch BRIDGE MAINTAINER, BRIDGE MAINTAINER-C Attending Provider Active Start: March 15, 2025 [...] Team Status: Inactive Member Role/Relationship Status Dates Suh Chow PA, PA Primary Care Provider Active Start: March 21, 2025 End: March 21, 2025 Shu Chow PA, PA Referring Provider Active Start: March 21, 2025 End: March 21, 2025 Alyssa Lynch BRIDGE MAINTAINER, BRIDGE MAINTAINER-C Attending Provider Active Start: March 21, 2025 End: March 21, 2025 Team Status: Inactive Member Role/Relationship Status Dates Shu Chow PA, PA Primary Care Provider Active Start: April 04, 2025 End: April 04, 2025 Shu Chow PA, PA Referring Provider Active Start: April 04, 2025 End: April 04, 2025 Alyssa Lynch BRIDGE MAINTAINER, BRIDGE MAINTAINER-C Attending Provider Active Start: April 04, 2025 [...] 2025 End: May 02, 2025 Alyssa Lynch BRIDGE MAINTAINER, BRIDGE MAINTAINER-C Attending Provider Active Start: May 02, 2025 [...] (Unheld by provider - Provider: Malick Ricci, MANAGER PAYROLL-BANQUET COOK)[phone] (Given - Provider: Rickie Armstrong RN) [phone] [...] over 2 minutes. Telemetry required except for GRAIN GRADER patients on [address] 6 and 7. [...] Post-op/Post-Proc 4 (See Alternative - Provider: Lianna Charles, OMER) Phenol (CHLORASEPTIC) 1.4 % oral spray [...] BE BASED ON THE PRIMARY CLINICAL RECORDS. [employer] [facility]. provides no warranty or guarantee of the accuracy or completeness of information in this document.
--- NOTE | 2025-05-13 17:50 | HP.PCM.HOS_ITS ---
HPI - General General Date of Admission: 05/13/25 Date of Service: 05/13/25 Chief Complaint: Syncope, weakness HPI Narrative MARCELLO CARRILLO, is a 74 F who presents to the emergency room at [facility] at the advice of her PCP due to a syncopal episode she had yesterday and generalized weakness. Patient was under treatment for colon cancer and is on chemotherapy. Workup in the emergency room included a CT of the brain which showed evidence of a left parietal calcification concerning for metastatic disease, she was noted to be hypotensive and tachycardic, EKG was obtained and it was noted that she was in atrial flutter-patient denied ever having that rhythm before. Patient was fluids and labs were obtained, patient's total white blood cell count was low at 2.4, hemoglobin was 11.5, chemistry profile was remarkable for sodium 132 and a potassium of 3.1. Lactic acid was 2.4 and glucose was 147. UA was obtained which showed +2 bacteria, 5-10 WBCs and 0-5 RBCs. Patient was felt to have acute cystitis and new onset atrial flutter with rapid ventricular response as well as hypokalemia. Patient's blood pressure improved with administration of IV fluid, patient was given IV Rocephin, she was not given anything for her atrial flutter as her rate eventually lowered. Patient will be admitted to PCU, IV antibiotics will be continued and she will be given IV fluids, patient will undergo an MRI on 05/15/2025 due to her abnormal brain CT. [facility] Medical History Anemia Diarrhea due to drug Encounter for chemotherapy management Loss of hearing Wears glasses Post-menopausal Cancer Asthma History of pain when walking Encounter for education Regional lymph node metastasis present Degenerative joint disease Arthritis High cholesterol Migraine headache History of Meniere's disease Former smoker Hx of echocardiogram Hypertension Home Medications ?Medication ?Instructions ?Recorded ?Last Taken ?Type lisinopril 20 1 tab PO DAILY 03/18/2105/02 History mg-hydrochlorothiazide 25 mg tablet metoprolol succinate 50 mg 50 mg PO DAILY 05/13/2510/26 History tablet,extended release 24 hr Allergy/AdvReac Type Severity Reaction Status Date / Time No Known Allergies Allergy Verified 05/02/25 08:04 Family History Father Heart disease Aunt Breast cancer Surgical History History of hysteroscopy History of colectomy History of total right knee replacement Hx of colonoscopy Social History Smoking Status: Former smoker Tobacco: How many years used: 5 alcohol intake: never substance use type: does not use ROS Constitutional Constitutional: Reports fatigue and weakness; Denies anorexia, change in weight, chills, fever(s) or night sweats Eyes Eyes: Denies blurry vision, change in vision, discharge from eye(s) or eye pain Cardiovascular Cardiovascular: Reports lightheadedness and syncope; Denies chest pain, claudication, edema or palpitations Respiratory/Chest Respiratory/Chest: Denies cough, hemoptysis, shortness of breath at rest or shortness of breath with exertion Gastrointestinal Gastrointestinal: Denies abdominal pain, constipation, diarrhea, hematemesis, hematochezia, melena, nausea or vomiting Genitourinary Genitourinary: Denies dysuria, hematuria, urinary frequency, urinary hesitancy, urinary incontinence or urinary urgency Musculoskeletal Musculoskeletal: Denies back pain, joint pain, joint stiffness, joint swelling, myalgias or neck pain Neurologic Neurologic: Denies abnormal gait, abnormal speech, dizziness, focal weakness, headache(s), loss of vision, numbness, other visual disturbances, paresthesias, syncope or tingling Psychiatric Psychiatric: Denies anxiety, cognitive impairment, depression, irritability, mood swings or suicidal ideation Endocrine Endocrinology: Denies change in body appearance, cold intolerance, excessive sweating, heat intolerance, polydipsia or polyuria Hematologic/Lymphatic Hematologic/Lymphatic: Denies none, anemia, easy bleeding, easy bruising or lymphadenopathy Allergic/Immunologic Allergic/Immunologic: Denies rhinitis, urticaria, eczemia or asthma Vital Signs Vital Signs Vital Signs: 05/13/25 12:11 05/13/25 12:13 05/13/25 12:27 Temperature 98.3 F 98.9 F Temperature Source Oral Oral Pulse Rate 17 L 93 Pulse Rate [Lying] Pulse Rate [Sitting (for 1 minute prior to obtaining)] Pulse Rate [Standing (for 1 minute prior to obtaining)] Respiratory Rate 120 H 14 Respiratory Effort Normal Respiratory Pattern Normal Blood Pressure 89/53 L 99/72 Blood Pressure [Lying] Blood Pressure [Sitting (for 1 minute prior to obtaining)] Blood Pressure [Standing (for 1 minute prior to obtaining)] Blood Pressure Mean 65 81 Blood Pressure Mean [Lying] Blood Pressure Mean [Sitting (for 1 minute prior to obtaining)] Blood Pressure Mean [Standing (for 1 minute prior to obtaining)] Pulse Ox 94 97 Oxygen Delivery Method Room Air Room Air 05/13/25 13:13 05/13/25 14:00 05/13/25 15:00 Temperature 98.6 F 98.7 F 98.7 F Temperature Source Temporal Temporal Oral Pulse Rate 89 89 78 Pulse Rate [Lying] Pulse Rate [Sitting (for 1 minute prior to obtaining)] Pulse Rate [Standing (for 1 minute prior to obtaining)] Respiratory Rate 18 18 27 H Respiratory Effort Respiratory Pattern Blood Pressure 100/60 107/59 L 105/67 Blood Pressure [Lying] Blood Pressure [Sitting (for 1 minute prior to obtaining)] Blood Pressure [Standing (for 1 minute prior to obtaining)] Blood Pressure Mean 73 75 79 Blood Pressure Mean [Lying] Blood Pressure Mean [Sitting (for 1 minute prior to obtaining)] Blood Pressure Mean [Standing (for 1 minute prior to obtaining)] Pulse Ox 99 97 95 Oxygen Delivery Method Room Air Room Air 05/13/25 16:00 05/13/25 16:02 05/13/25 17:00 Temperature Temperature Source Pulse Rate 81 91 Pulse Rate [Lying] 85 Pulse Rate [Sitting (for 1 minute prior to obtaining)] 92 Pulse Rate [Standing (for 1 minute prior to obtaining)] 114 H Respiratory Rate 14 17 Respiratory Effort Respiratory Pattern Blood Pressure 126/74 H 116/86 H Blood Pressure [Lying] 115/69 Blood Pressure [Sitting (for 1 minute prior to obtaining)] 114/75 Blood Pressure [Standing (for 1 minute prior to obtaining)] 114/92 H Blood Pressure Mean 91 96 Blood Pressure Mean [Lying] 84 Blood Pressure Mean [Sitting (for 1 minute prior to obtaining)] 88 Blood Pressure Mean [Standing (for 1 minute prior to obtaining)] 99 Pulse Ox 96 Oxygen Delivery Method Room Air 05/13/25 17:13 Temperature 98.7 F Temperature Source Pulse Rate 91 Pulse Rate [Lying] Pulse Rate [Sitting (for 1 minute prior to obtaining)] Pulse Rate [Standing (for 1 minute prior to obtaining)] Respiratory Rate 17 Respiratory Effort Respiratory Pattern Blood Pressure 116/86 H Blood Pressure [Lying] Blood Pressure [Sitting (for 1 minute prior to obtaining)] Blood Pressure [Standing (for 1 minute prior to obtaining)] Blood Pressure Mean 96 Blood Pressure Mean [Lying] Blood Pressure Mean [Sitting (for 1 minute prior to obtaining)] Blood Pressure Mean [Standing (for 1 minute prior to obtaining)] Pulse Ox 96 Oxygen Delivery Method Weight Weight: 80.7 kg Body Mass Index (BMI) 32.5 Physical Exam Const alert, oriented x3 and no apparent distress General Appearance: cooperative, well kempt and well developed Orientation / Consciousness: awake, oriented to person, oriented to place and oriented to time HEENT normocephalic, head/scalp atraumatic, hearing grossly normal bilaterally and moist oral mucous membranes Eyes PERRL, EOMs intact bilaterally and conjunctivae normal Neck supple, no JVD, thyroid normal and no carotid bruits General: trachea midline Resp normal respiratory effort, no retractions, no use of accessory muscles and clear to auscultation bilaterally Auscultation: Negative for rales, rhonchi or wheezes Cardio S1 normal heart sound, S2 normal heart sound, no murmurs, no rub and no gallops Cardio Narrative: Heart rate and rhythm is irregular GI normal to inspection, nondistended, normoactive bowel sounds, soft to palpation, non-tender and non-distended Extremity no clubbing, cyanosis or edema Skin no rashes or lesions noted General Skin Exam: no breakdown Neuro oriented x3, CN's II-XII intact bilaterally, moves all extremities, no focal motor deficits and no sensory deficits noted Sensorium / Orientation: awake and alert Speech: speech normal Psych affect normal Results Lab / Micro Data 05/13/25 12:54 05/13/25 12:54 Labs: Laboratory Results - last 24 hr 05/13/25 12:54: WBC 2.4 L, RBC 3.80 L, Hgb 11.5 L, Hct 34.0 L, MCV 89.5, MCH 30.3, MCHC 33.8, RDW Std Deviation 45.4 H, RDW Coeff of Kec[place] 14.7 H, Plt Count 225, MPV 9.0, Neut % (Auto) Not Reportable, Absolute Neuts (auto) 0.7 L, Absolute Lymphs (auto) 0.98, Total Counted 100, Neutrophils % (Manual) 28 L, Band Neutrophils % 2, Lymphocytes % (Manual) 40, Monocytes % (Manual) 29 H, Eosinophils % (Manual) 1, Sodium 132 L, Potassium 3.1 L, Chloride 98, Carbon Dioxide 21.5, Anion Gap 13, BUN 12, Creatinine 0.83, Estim Creat Clear Calc 57.64, Est GFR (MDRD) Non-Af 74, BUN/Creatinine Ratio 15.0, Glucose 147 H, L actic Acid 2.4 H*, Calcium 8.7, Magnesium 1.9, Total Bilirubin 0.42, AST 24, ALT 25, Alkaline Phosphatase 74, Total Protein 6.4, Albumin 3.1 L, Globulin 3.4, Albumin/Globulin Ratio 0.9, Lipase 13 05/13/25 15:43: Urine Color Yellow, Urine Clarity Sl. Cloudy, Urine pH 6.5, Ur Specific [place] 1.010, Urine Protein 30 H, Urine Glucose (UA) Normal, Urine Ketones Negative, Urine Occult Blood 10 H, Urine Nitrite Negative, Urine Bilirubin Negative, Urine Urobilinogen Normal, Ur Leukocyte Esterase 500 H, Urine RBC 0-5 SEEN, Urine WBC 5-10 SEEN, Ur Squamous Epith Cells 0-5 SEEN, Amorphous Sediment 1+, Urine Bacteria 2+, Hyaline Casts 0-5 SEEN, Urine Mucus 1+ Rhythm Strip Rhythm Strip: A-fib Rate: 97 Ectopy: None Imaging Radiology Impression Brain CT 05/13/25 12:46 IMPRESSION: Focal calcification in the left parietal lobe measuring up to 1.8 cm, concerning for metastatic spread in this patient with history of colon cancer. Differential also includes other neoplasms (meningioma) or sequela of prior insult (vascular, infectious/inflammatory). Recommend contrast-enhanced MRI for further evaluation, if not previously performed. Reading Location: [id number] Chest X-Ray 05/13/25 13:05 IMPRESSION: No acute cardiopulmonary abnormality. Reading Location: [facility] Assessment & Plan Assessment/Plan (1) Syncope and collapse: PLAN: Plan 1. Syncope secondary to hypotension from atrial flutter-patient's rate is improved at this time, patient will be admitted to PCU, she will be monitored on telemetry, she already is on a beta-leonardo as an outpatient and this will be continued. Patient will be given IV fluids #2 new onset atrial flutter with RVR-I will talk with the patient tomorrow concerning full anticoagulation, for now, patient will be monitored and will receive beta-leonardo, patient will undergo an echocardiogram on 05/15/2025. #[address] of the brain indicating possible metastatic cancer-patient will undergo an MRI on 05/15/2025, she follows up with oncology as an outpatient. #4 colon cancer-under active treatment with chemotherapy, complicates care, management, recovery, and prognosis #5 hypokalemia-patient will be given potassium supplementation through her IV, BMP will be rechecked #6 acute cystitis-patient will be treated with Rocephin, cultures are pending Total clinical time spent by myself addressing the patient's medical issues, reviewing all of her data, and collaborating with patient's care team: 75 minutes Charges/Coding Visit Charges Inpatient E&M: 73178 Init Hosp L3
--- OUTSIDE RECORDS SUMMARY | 2025-05-13 18:17 | XMS RPT_ITS | CCD ---
Author Organization [facility] Care Team Providers Care Social Work Manager Name Role Phone Pavel Elkins Unavailable Unavailable Pavel Elkins Unavailable Unavailable Shu Chow PA-C Unavailable Shu Chow PA-C Unavailable [place] slate roofer helper, . . Unavailable ENT Provider Unavailable Unavailable General Surgery Provider Unavailable Unavail able [facility], . Unavailable Lin PIRES, Dr. Bart Rausch Unavailable Orthopedic Provider Unavailable Unavailable Stella LAI, Hiral Shannon Unavailable Vanna MACHINIST APPRENTICE WOOD, Becky Unavailable Joao ZHUN, Sasha Amador Unavailable Unavailable Keila ZHUN, Roverto Rausch Unavailable Unavailab Nicole Mcmillan Unavailable Unavailable Russ ZHUN, Irish Unavailable Unavailabl e Citlali MACHINIST APPRENTICE WOOD, Venessa K Unavailable Josie Bray PULL OVER MACHINE OPERATOR-C, Robin Shay Unavailable Khalida Loya RN Unavailable Unavailable Silvestre ZHUN, Karlie Unavailable Unavailable Nathalie Jett MA Unavailable Unavailable Benny MACHINIST APPRENTICE WOOD, Andrew Unavailable Unavailable Unavailable Unavailable Carlie Xiao [...] Unavailable CHOW, SHU J Consulting Unavailable CHOW, SUH J Primary Care Unavailable CHOW, SHU J [...] G Attending Unavailable AGATA MONTOYA Attending Unavailable COHW, SHU J Primary Care Unavailable MALICK RICCI [...] Unavailable Dr. [place] MD Referring Provider Michael Gaines Referring Unavailable WanekMichael Attending Unavailable WanekMichael Consulting Unavailable Chow, Shu Primary Care Unavailable Chow, Shu Primary Care Unavailable Chow, Shu Referring Unavailable [place] Attending Unavailable Chow, Shu Referring Unavailable Keila PULL OVER MACHINE OPERATOR, Alyssa Attending Unavailable Chow, Shu Primary Care Unavailable Chow, Shu Referring Unavailable Keila PULL OVER MACHINE OPERATOR, Alyssa Attending Unavailable Chow, Shu Primary Care Unavailable Chow, Shu Referring Unavailable Keila PULL OVER MACHINE OPERATOR, Alyssa Attending Unavailable Chow, Shu Primary Care Unavailable Chow, Shu Referring Unavailable WanekMichael Attending Unavailable Chow, Shu Primary Care Unavailable Chow, Shu Primary Care Unavailable [place] Attending Unavailable Chaka, Sachi Referring Unavailable Chow, Shu Primary Care Unavailable Chow, Shu Referring Unavailable Keila PULL OVER MACHINE OPERATOR, Alyssa Attending Unavailable Michael Gaines Referring Unavailable Michael Gaines Attending Unavailable [facility] Primary Care Unavailable Chow Shu Primary Care Unavailable [place] Referring Unavailable [place] Attending Unavailable [facility] Care Unavailable Shikha Marroquin Attending Unavailable [...] over 2 minutes. Telemetry required except for [facility]NA[facility] patients on [address] 6 and 7. [...] 01/24/2025 Discontinued (Stop Taking at Discharge) nystatin 044166 unt/ml topical cream (20 sources) Polyene Antifungal Start: 06-15-2019 End: 01-29-2023 Nystatin 486079 UNIT/GM External Cream ; 1 (one) Application [...] patient does not have Healthcare Power of Cloth Spreader Screen Printing or Living Will. 06-16-2019 Unclassified (20 sources) [...] patient does not have Healthcare Power of Cloth Spreader Screen Printing or Living Will. 11-09-2017 Unclassified (20 sources) [ADDITIONAL REASON] Follow up from hospital stay - Name of Hospital: [facility]. Date of Admission: 10/25/2017. Date of Discharge: [...] that her back was bothering her so [facility] checked and she has 5 spurs [...] patient does not have Healthcare Power of Cloth Spreader Screen Printing or Living Will. 06-16-2019 Unclassified (17 sources) [...] patient does not have Healthcare Power of Cloth Spreader Screen Printing or Living Will. 11-09-2017 Unclassified (20 sources) [...] from hospital stay - Name of Hospital: [facility]. Date of Admission: 10/25/2017. Date of Discharge: [...] (Dr Kalpesh Boles) and Location of procedure: ([facility]) There have been no problems with general [...] patient does not have Healthcare Power of Cloth Spreader Screen Printing or Living Will. Note for MCR Well [...] an upper respiratory infection ([facility] Patient denies history of seasonal allergies, asthma [...] had a colonoscopy. Had labs done through [facility] outreach screening but never received the results. [...] patient does not have Healthcare Power of Cloth Spreader Screen Printing or Living Will. Note for MCR Well [...] patient does not have Healthcare Power of Cloth Spreader Screen Printing or Living Will. Note for MCR Well Adult: Has spoken with counter cutter and is in process.Started chemo - has had one treatment so far. Every other week x 12 sessions. 03-24-2025 Results Test Name Value Interpretation Reference Range Facility Carcinoembryonic Antigenon 0 05-03-2025 CEA 8.3 ng/mL High 0.0-4.7 [facility] Comment on above: Result Comment: Nons mokers <3.9 Smokers <5.6 [facility] Electrochemiluminescence Immunoassay (ECLIA) Values obtained with different assay methods or kits cannot be used interchangeably. Results cannot be interpreted as absolute evidence of the presence or absence of malignant disease. Performed at: - [facility], [place], [place] [id number] Community Outreach Worker: Abimael Sheridan PhD, Phone: [phone] Performed By: #### L 503.0106, L503.6550, L3100.2300, L501.2300, L503.6030 ####[facility] [address] [place], [address] Absolute lymphocyte countOrd ered By: [facility]25 Lymphocytes Auto (Unsp spec) [#/Vol] 1.36 10*3/uL 0.83-4.51 [facility] Absolute neutrophil countOrd ered By: [facility] 05-02-2025 Neutrophils (Bld) [#/Vol] 1.9 10*3/uL Low 2.0-7.7 [facility] Anion gap in Serum or Plasma Ordered [facility]: [facility] 05-02-2025 Anion gap [Moles/Vol] 13 mmol/L 5-15 [facility] Automated lymphocyte count a s percentage of total leukocytesOrdered By: [facility] 05-02-2025 Lymphocytes/100 WBC Auto (Unsp spec) 32.5 % 19-41 [facility] BUN/creatinine ratioOrdered By: [facility] on 05-02-2025 Urea nitrogen/Creatinine [Mass ratio] 22.2 mg/mg High 10-20 [facility] Basophil percentageOrdered B y: [facility] on 05-02-2025 Basophils/100 WBC (Bld) 1.0 % 0-1 [facility] Bilirubin, totalOrdered By: [facility] on 05-02-2025 Bilirubin [Mass/Vol] 0.31 mg/dL 0.00-1.30 [facility] CBC W/Diff, Automatedon Absolute Lymph 1.36 X10 3/uL Normal 0.83-4.51 [facility] Comment on above: Performed By: #### L 100.0100, L500.4050, L501.5200 #### [facility] [address] [place], [address] Absolute Neut 1.9 X10 3/uL Low 2.0-7.7 [facility] Comment on above: Performed By: #### L 100.0100, L500.4050, L501.5200 #### [facility] [address] [place], [address] Basophils/100 WBC (Bld) 1.0 % Normal 0-1 [facility] Comment on above: Performed By: #### L 100.0100, L500.4050, L501.5200 #### [facility] [address] [place], [address] Eosinophils/100 WBC (Bld) 8.6 % High 0-5 [facility] Comment on above: Performed By: #### L 100.0100, L500.4050, L501.5200 #### [facility] [address] [place], [address] Erythrocyte distribution width (RBC) [Ratio] 14.4 % Normal 11.6-14.6 [facility] Comment on above: Performed By: #### L 100.0100, L500.4050, L501.5200 #### [facility] [address] [place], [address] Hematocrit (Bld) [Volume fraction] 36.1 % Low 37-47 [facility] Comment on above: Performed By: #### L 100.0100, L500.4050, L501.5200 #### [facility] [address] [place], [address] Hemoglobin (Bld) [Mass/Vol] 11.9 g/dL Low 12.0-15.0 [facility] Comment on above: Performed By: #### L 100.0100, L500.4050, L501.5200 #### [facility] [address] [place], [address] IG% 0.700 Normal 0.0-0.9 [facility] Comment on above: Result Comment: IG% - Immature Granulocytes (promyelocytes, myelocytes and metamyelocytes) > 1% indicates that a LEFT SHIFT is Present. Performed By: #### L 100.0100, L500.4050, L501.5200 #### [facility] [address] [place], [address] Lymphocytes/100 WBC (Bld) 32.5 % Normal 19-41 [facility] Comment on above: Performed By: #### L 100.0100, L500.4050, L501.5200 #### [facility] [address] [place] [place], [address] MCH (RBC) [Entitic mass] 29.8 pg Normal 27.0-32.0 [facility] Comment on above: Performed By: #### L 100.0100, L500.4050, L501.5200 #### [facility] [address] [place], [address] MCHC (RBC) [Mass/Vol] 33.0 g/dL Normal 32-36 [facility] Comment on above: Performed By: #### L 100.0100, L500.4050, L501.5200 #### [facility] [address] [place], [address] MCV (RBC) [Entitic vol] 90.5 fL Normal 81-99 [facility] Comment on above: Performed By: #### L 100.0100, L500.4050, L501.5200 #### [facility] [address] [place], [address] Monocytes/100 WBC (Bld) 11.5 % High 0-10 [facility] Comment on above: Performed By: #### L 100.0100, L500.4050, L501.5200 #### [facility] [address] [place], [address] Neutrophils/100 WBC (Bld) 45.7 % Low 47-70 [facility] Comment on above: Performed By: #### L 100.0100, L500.4050, L501.5200 #### [facility] [address] [place], [address] Nucleated RBC (Bld) [#/Vol] 0 10*3/uL Normal 0-5 [facility] Comment on above: Performed By: #### L 100.0100, L500.4050, L501.5200 #### [facility] [address] [place], [address] Platelet mean volume (Bld) [Entitic vol] 8.3 fL Normal 6.2-12.0 [facility] Comment on above: Performed By: #### L 100.0100, L500.4050, L501.5200 #### [facility] [address] [place], [address] Platelets (Bld) [#/Vol] 197 10*3/uL Normal 150-450 [facility] Comment on above: Performed By: #### L 100.0100, L500.4050, L501.5200 #### [facility] [address] [place], [address] RBC (Bld) [#/Vol] 3.99 10*6/uL Low 4.2-5.4 [facility] Comment on above: Performed By: #### L 100.0100, L500.4050, L501.5200 #### [facility] [address] [place], [address] RDW SD 43.6 fl Normal 35.1-43.9 [facility] Comment on above: Performed By: #### L 100.0100, L500.4050, L501.5200 #### [facility] [address] [place], [address] WBC (Bld) [#/Vol] 4.2 10*3/uL Low 4.4-11.0 [facility] Comment on above: Performed By: #### L 100.0100, L500.4050, L501.5200 #### [facility] [address] [place], [address] Carbon dioxide, total [Moles /volume] in Central venous bloodOrdered By: [place] on 05-02-2025 CO2 [Moles/Vol] 22.3 mmol/L 21.0-32.0 [facility] Chloride assayOrdered By: [place] on 05-02-2025 Chloride [Moles/Vol] 103 mmol/L 98-108 [facility] Comprehensive Metabolic Prof ilon 05-02-2025 Albumin [Mass/Vol] 3.4 g/dL Normal 3.4-4.8 [facility] Comment on above: Performed By: #### L 100.0100, L500.4050, L501.5200 #### [facility] [address] [place], [address] Albumin/Globulin [Mass ratio] 1.1 {ratio} Normal 0.9-2.4 [facility] Comment on above: Performed By: #### L 100.0100, L500.4050, L501.5200 #### [facility] [address] [place], [address] ALK PHOS 82 U/L Normal 35-104 [facility] Comment on above: Performed By: #### L 100.0100, L500.4050, L501.5200 #### [facility] [address] [place], [address] ALT [Catalytic activity/Vol] 53 U/L High <=34 [facility] Comment on above: Performed By: #### L 100.0100, L500.4050, L501.5200 #### [facility] [address] [place], [address] AST [Catalytic activity/Vol] 48 U/L High <=31 [facility] Comment on above: Performed By: #### L 100.0100, L500.4050, L501.5200 #### [facility] [address] [place], [address] Bilirubin [Mass/Vol] 0.31 mg/dL Normal 0.00-1.30 [facility] Comment on above: Performed By: #### L 100.0100, L500.4050, L501.5200 #### [facility] [address] [place], [address] BUN/CRE 22.2 RATIO High 10-20 [facility] Comment on above: Performed By: #### L 100.0100, L500.4050, L501.5200 #### [facility] [address] [place], [address] Calcium [Mass/Vol] 9.1 mg/dL Normal 7.6-11.0 [facility] Comment on above: Performed By: #### L 100.0100, L500.4050, L501.5200 #### [facility] [address] [place], [address] Chloride [Moles/Vol] 103 mmol/L Normal 98-108 [facility] Comment on above: Performed By: #### L 100.0100, L500.4050, L501.5200 #### [facility] [address] [place], [address] CO2 [Moles/Vol] 22.3 mmol/L Normal 21.0-32.0 [facility] Comment on above: Performed By: #### L 100.0100, L500.4050, L501.5200 #### [facility] [address] [place], [address] Creatinine [Mass/Vol] 0.76 mg/dL Normal 0.70-1.20 [facility] Comment on above: Performed By: #### L 100.0100, L500.4050, L501.5200 #### [facility] [address] [place], [address] ECRCL 60.24 ml/min Normal 50-250 [facility] Comment on above: Performed By: #### L 100.0100, L500.4050, L501.5200 #### [facility] [address] [place], [address] GAP 13 Normal 5-15 [facility] Comment on above: Performed By: #### L 100.0100, L500.4050, L501.5200 #### [facility] [address] [place], [address] GFR/1.73 sq M.predicted among non-blacks MDRD (S/P/Bld) [Vol rate/Area] 82 mL/min/{1.73_m2} Normal >60 [facility] Comment on above: Result Comment: mL/m in/1.73m2 CKD-EPI Creatinine Equation (2020) Performed By: #### L 100.0100, L500.4050, L501.5200 #### [facility] [address] [place], [address] Globulin (S) [Mass/Vol] 3.1 g/dL Normal 2.2-4.2 [facility] Comment on above: Performed By: #### L 100.0100, L500.4050, L501.5200 #### [facility] [address] [place], [address] Glucose [Mass/Vol] 153 mg/dL High 70-99 [facility] Comment on above: Performed By: #### L 100.0100, L500.4050, L501.5200 #### [facility] [address] [place], [address] Potassium [Moles/Vol] 3.3 mmol/L Normal 3.3-5.1 [facility] Comment on above: Performed By: #### L 100.0100, L500.4050, L501.5200 #### [facility] [address] [place], [address] Sodium [Moles/Vol] 138 mmol/L Normal 133-145 [facility] Comment on above: Performed By: #### L 100.0100, L500.4050, L501.5200 #### [facility] [address] [place], [address] T PROT 6.5 g/dL Normal 5.9-8.4 [facility] Comment on above: Performed By: #### L 100.0100, L500.4050, L501.5200 #### [facility] [address] [place], [address] Urea nitrogen [Mass/Vol] 17 mg/dL Normal 4-19 [facility] Comment on above: Performed By: #### L 100.0100, L500.4050, L501.5200 #### [facility] [address] [place], [address] Eosinophil percentageOrdered By: [place] on 05-02-2025 Eosinophils/100 WBC (Bld) 8.6 % High 0-5 [facility] Erythrocyte distribution wid th ratioOrdered By: [place] on 05-02-2025 Erythrocyte distribution width (RBC) [Ratio] 14.4 % 11.6-14.6 [facility] Erythrocyte distribution wid th standard deviationOrdered By: [place] on 05-02-2025 Erythrocyte distribution width (RBC) [Ratio] 43.6 fl 35.1-43.9 [facility] Ferritinon 05-02-2025 Ferritin [Mass/Vol] 151 ng/mL Normal 22-378 [facility] Comment on above: Performed By: #### L 503.0106, L503.6550, L3100.2300, L501.2300, L503.6030 ####[facility] [address] [place], [place], [address] Glomerular filtration rate ( GFR) estimation/1.73 sq m using serum, plasma, or whole bOrdered By: [place] on 05-02-2025 GFR/1.73 sq M.predicted among non-blacks MDRD (S/P/Bld) [Vol rate/Area] 82 mL/min/{1.73_m2} >60 [facility] Comment on above: mL/min/1.73m2 CKD-EP I Creatinine Equation (2020) Hematocrit Auto (Bld) [Volum e fraction]Ordered By: [place] on 05-02-2025 Hematocrit (Bld) [Volume fraction] 36.1 % Low 37-47 [facility] Hemoglobin measurementOrdere d By: [place] on 05-02-2025 Hemoglobin (Bld) [Mass/Vol] 11.9 g/dL Low 12.0-15.0 [facility] Immature granulocytes/100 WB C Auto (Bld)Ordered By: [place] on 05-02-2025 Immature granulocytes/100 WBC (Bld) 0.700 % 0.0-0.9 [facility] Comment on above: IG% - Immature Granu locytes (promyelocytes, myelocytes and metamyelocytes) > 1% indicates that a LEFT SHIFT is Present. Iron+Iron Binding Capacityon 05-02-2025 Iron [Mass/Vol] 70 ug/dL Normal 50-170 [facility] Comment on above: Performed By: #### L 503.0106, L503.6550, L3100.2300, L501.2300, L503.6030 ####[facility] [address] [place], [place], [address] IRON SATURATION 21.0 Normal 13-59 [facility] Comment on above: Performed By: #### L 503.0106, L503.6550, L3100.2300, L501.2300, L503.6030 ####[facility] [address] [place], [address] TIBC 337 ug/dL Normal 250-450 [facility] Comment on above: Performed By: #### L 503.0106, L503.6550, L3100.2300, L501.2300, L503.6030 ####[facility] [address] [place], [address] UIBC 267 ug/dL Normal 228-428 [facility] Comment on above: Performed By: #### L 503.0106, L503.6550, L3100.2300, L501.2300, L503.6030 ####[facility] [address] [place], [address] Laboratory - Chemistry and C hemistry - challengeOrdered By: [place] on 05-02-2025 AST [Catalytic activity/Vol] 48 U/L High <32 [facility] MCV (mean corpuscular volume ) determinationOrdered By: [place] on 05-02-2025 MCV (RBC) [Entitic vol] 90.5 fL 81-99 [facility] Magnesiumon 05-02-2025 Magnesium [Mass/Vol] 2.1 mg/dL Normal 1.5-2.2 [facility] Comment on above: Performed By: #### L 100.0100, L500.4050, L501.5200 #### [facility] [address] [place], [address] Magnesium measurement (mass/ volume)Ordered By: [place] on 05-02-2025 Magnesium (Unsp spec) [Mass/Vol] 2.1 mg/dL 1.5-2.2 [facility] Mean corpuscular hemoglobin (MCH) determinationOrdered By: [place] on 05-02-2025 MCH (RBC) [Entitic mass] 29.8 pg 27.0-32.0 [facility] Mean corpuscular hemoglobin concentration (MCHC) determinationOrdered By: [place] on 05-02-2025 MCHC (RBC) [Mass/Vol] 33.0 g/dL 32-36 [facility] Mean platelet volume determi nationOrdered By: [facility] on 05-02-2025 Platelet mean volume (Bld) [Entitic vol] 8.3 fL 6.2-12.0 [facility] Monocyte percentageOrdered B y: [facility] [place] on 05-02-2025 Monocytes/100 WBC (Bld) 11.5 % High 0-10 [facility] Neutrophil percentageOrdered By: [facility] on 05-02-2025 Neutrophils/100 WBC (Bld) 45.7 % Low 47-70 [facility] Nucleated red blood cell per centageOrdered By: [facility]25 Nucleated RBC/100 WBC (Bld) [Ratio] 0 % 0-5 [facility] Oncology Visit Reporton 07 Oncology Visit Report [facility] [address] [place] [address] OFFICE VISIT Date of Service: 05/02/25 0800 MR#: [id number] Acct: [id number] Name: JESSIKA CARRILLO Rep #: [id number] : 1950 From: Alyssa Lynch NP PULL OVER MACHINE OPERATOR -C Age/Sex: 74/F [place] [facility] [place] Status: Signed HPI Subjective Date of Service 05/02/25 Chief Complaint Colon cancer on treatment History of Present Illness 74-year-old female with no family of colon cancer had screening colonoscopy August 17, [address] Boles at [facility] with 2 sessile polypoid lesions were found, [...] left kidney. Patient was then referred to [facility] for further management. December 31, 2024 [...] January 23, 2025 robotic right hemicolectomy at [facility] by Dr. Antonio. Pathology: Right colon [...] January 23, 2025 robotic right hemicolectomy at [facility]. March 21, 2025 adjuvant modified FOLFOX [...] abd pain, N/V, swelling of her extremities. [facility] Medical History Anemia Diarrhea due to drug [...] H ist (more content not included)... Normal [facility] Phosphoruson 05-02-2025 Phosphate [Mass/Vol] 3.0 mg/dL Normal 2.7-4.5 [facility] Comment on above: Performed By: #### L 503.0106, L503.6550, L3100.2300, L501.2300, L503.6030 #### [facility] [address] [place], [address] Platelet countOrdered By: [place] on 05-02-2025 Platelets (Bld) [#/Vol] 197 10*3/uL 150-450 [facility] Potassium measurement (mass/ volume)Ordered By: [place] on 05-02-2025 Potassium (Unsp spec) [Mass/Vol] 3.3 mmol/L 3.3-5.1 [facility] RBC Auto (Bld) [#/Vol]Ordere d By: [place] on 05-02-2025 RBC (Bld) [#/Vol] 3.99 10*6/uL Low 4.2-5.4 [facility] Serum creatinine measurement (mass/volume)Ordered By: [place] on 05-02-2025 Creatinine [Mass/Vol] 0.76 mg/dL 0.70-1.20 [facility] Serum globulin measurementOr dered By: [place] on 05-02-2025 Globulin (S) [Mass/Vol] 3.1 g/dL 2.2-4.2 [facility] Serum glucose measurement (m ass/volume)Ordered By: [place] on 05-02-2025 Glucose [Mass/Vol] 153 mg/dL High 70-99 [facility] Serum or plasma alanine rojo otransferase (ALT) measurementOrdered By: [place] on 05-02-2025 ALT [Catalytic activity/Vol] 53 U/L High <35 [facility] Serum or plasma albumin alfredo urement (mass/volume)Ordered By: [place] on 05-02-2025 Albumin [Mass/Vol] 3.4 g/dL 3.4-4.8 [facility] Serum or plasma albumin/glob ulin mass ratioOrdered By: [place] on 05-02-2025 Albumin/Globulin [Mass ratio] 1.1 {ratio} 0.9-2.4 [facility] Serum or plasma alkaline marisabel sphatase measurementOrdered By: [place] on 05-02-2025 ALP [Catalytic activity/Vol] 82 U/L 35-104 [facility] Serum or plasma calcium alfredo urement (mass/volume)Ordered By: [place] on 05-02-2025 Calcium [Mass/Vol] 9.1 mg/dL 7.6-11.0 [facility] Serum or plasma urea nitroge n measurement (mass/volume)Ordered By: [place] on 05-02-2025 Urea nitrogen [Mass/Vol] 17 mg/dL 4-19 [facility] Sodium levelOrdered By: Kurt mejia [place] on 05-02-2025 Sodium [Moles/Vol] 138 mmol/L 133-145 [facility] Total proteinOrdered By: Shady burroughs [place] on 05-02-2025 Protein [Mass/Vol] 6.5 g/dL 5.9-8.4 [facility] Vitamin B12on 05-02-2025 Cobalamin (Vitamin B12) [Mass/Vol] 633 pg/mL Normal 180-914 [facility] Comment on above: Performed By: #### L 503.0106, L503.6550, L3100.2300, L501.2300, L503.6030 ####[facility] [facility] [address] [place], [address] White blood cell (WBC) count Ordered By: Kurtjackie Conn on 05-02-2025 WBC (Bld) [#/Vol] 4.2 10*3/uL Low 4.4-11.0 [facility] Absolute lymphocyte countOrd ered By: [place] on 04-18-2025 Lymphocytes Auto (Unsp spec) [#/Vol] 1.59 10*3/uL 0.83-4.51 [facility] Absolute neutrophil countOrd ered By: [place] on 04-18-2025 Neutrophils (Bld) [#/Vol] 2.6 10*3/uL 2.0-7.7 [facility] Anion gap in Serum or Plasma Ordered By: [place] on 04-18-2025 Anion gap [Moles/Vol] 12 mmol/L 5-15 [facility] Automated lymphocyte count a s percentage of total leukocytesOrdered By: [place] on 04-18-2025 Lymphocytes/100 WBC Auto (Unsp spec) 30.1 % 19-41 [facility] BUN/creatinine ratioOrdered By: [place] on 04-18-2025 Urea nitrogen/Creatinine [Mass ratio] 18.4 mg/mg 10-20 [facility] Basophil percentageOrdered B y: [place] on 04-18-2025 Basophils/100 WBC (Bld) 0.9 % 0-1 [facility] Bilirubin, totalOrdered By: [place] on 04-18-2025 Bilirubin [Mass/Vol] 0.25 mg/dL 0.00-1.30 [facility] CBC W/Diff, Automatedon 04-02 Absolute Lymph 1.59 X10 3/uL Normal 0.83-4.51 [facility] Comment on above: Performed By: #### L 100.0100, L500.4050, L501.5200 ####[facility] [address] [place], [address] Absolute Neut 2.6 X10 3/uL Normal 2.0-7.7 [facility] Comment on above: Performed By: #### L 100.0100, L500.4050, L501.5200 ####[facility] [address] [place], [address] Basophils/100 WBC (Bld) 0.9 % Normal 0-1 [facility] Comment on above: Performed By: #### L 100.0100, L500.4050, L501.5200 ####[facility] [address] [place], [address] Eosinophils/100 WBC (Bld) 5.3 % High 0-5 [facility] Comment on above: Performed By: #### L 100.0100, L500.4050, L501.5200 ####[facility] [address] [place], [address] Erythrocyte distribution width (RBC) [Ratio] 13.2 % Normal 11.6-14.6 [facility] Comment on above: Performed By: #### L 100.0100, L500.4050, L501.5200 ####[facility] [address] [place], [address] Hematocrit (Bld) [Volume fraction] 35.4 % Low 37-47 [facility] Comment on above: Performed By: #### L 100.0100, L500.4050, L501.5200 ####[facility] [address] [place], [address] Hemoglobin (Bld) [Mass/Vol] 11.8 g/dL Low 12.0-15.0 [facility] Comment on above: Performed By: #### L 100.0100, L500.4050, L501.5200 ####[facility] [address] [place], [address] IG% 0.600 Normal 0.0-0.9 [facility] Comment on above: Result Comment: IG% - Immature Granulocytes (promyelocytes, myelocytes and metamyelocytes) > 1% indicates that a LEFT SHIFT is Present. Performed By: #### L 100.0100, L500.4050, L501.5200 ####[facility] [address] [place], [address] Lymphocytes/100 WBC (Bld) 30.1 % Normal 19-41 [facility] Comment on above: Performed By: #### L 100.0100, L500.4050, L501.5200 ####[facility] [address] [place], [address] MCH (RBC) [Entitic mass] 30.0 pg Normal 27.0-32.0 [facility] Comment on above: Performed By: #### L 100.0100, L500.4050, L501.5200 ####[facility] [address] [place], [address] MCHC (RBC) [Mass/Vol] 33.3 g/dL Normal 32-36 [facility] Comment on above: Performed By: #### L 100.0100, L500.4050, L501.5200 ####[facility] [address] [place], [address] MCV (RBC) [Entitic vol] 90.1 fL Normal 81-99 [facility] Comment on above: Performed By: #### L 100.0100, L500.4050, L501.5200 ####[facility] [address] [place], [address] Monocytes/100 WBC (Bld) 13.4 % High 0-10 [facility] Comment on above: Performed By: #### L 100.0100, L500.4050, L501.5200 ####[facility] [address] [place], [address] Neutrophils/100 WBC (Bld) 49.7 % Normal 47-70 [facility] Comment on above: Performed By: #### L 100.0100, L500.4050, L501.5200 ####[facility] [address] [place], [address] Nucleated RBC (Bld) [#/Vol] 0 10*3/uL Normal 0-5 [facility] Comment on above: Performed By: #### L 100.0100, L500.4050, L501.5200 ####[facility] [address] [place], [address] Platelet mean volume (Bld) [Entitic vol] 8.6 fL Normal 6.2-12.0 [facility] Comment on above: Performed By: #### L 100.0100, L500.4050, L501.5200 ####[facility] [address] [place], [address] Platelets (Bld) [#/Vol] 216 10*3/uL Normal 150-450 [facility] Comment on above: Performed By: #### L 100.0100, L500.4050, L501.5200 ####[facility] [address] [place], [address] RBC (Bld) [#/Vol] 3.93 10*6/uL Low 4.2-5.4 [facility] Comment on above: Performed By: #### L 100.0100, L500.4050, L501.5200 ####[facility] [address] [place], [address] RDW SD 42.1 fl Normal 35.1-43.9 [facility] Comment on above: Performed By: #### L 100.0100, L500.4050, L501.5200 ####[facility] [address] [place], [address] WBC (Bld) [#/Vol] 5.3 10*3/uL Normal 4.4-11.0 [facility] Comment on above: Performed By: #### L 100.0100, L500.4050, L501.5200 ####[facility] [address] [place], [address] Carbon dioxide, total [Moles /volume] in Central venous bloodOrdered By: [place] on 04-18-2025 CO2 [Moles/Vol] 24.3 mmol/L 21.0-32.0 [facility] Chloride assayOrdered By: Ru Conn on 04-18-2025 Chloride [Moles/Vol] 102 mmol/L 98-108 [facility] Comprehensive Metabolic Prof ilon 04-18-2025 Albumin [Mass/Vol] 3.6 g/dL Normal 3.4-4.8 [facility] Comment on above: Performed By: #### L 100.0100, L500.4050, L501.5200 ####[facility] [address] [place], [address] Albumin/Globulin [Mass ratio] 1.3 {ratio} Normal 0.9-2.4 [facility] Comment on above: Performed By: #### L 100.0100, L500.4050, L501.5200 ####[facility] [address] [place], [address] ALK PHOS 85 U/L Normal 35-104 [facility] Comment on above: Performed By: #### L 100.0100, L500.4050, L501.5200 ####[facility] [address] [place], [address] ALT [Catalytic activity/Vol] 24 U/L Normal <=34 [facility] Comment on above: Performed By: #### L 100.0100, L500.4050, L501.5200 ####[facility] [address] [place], [address] AST [Catalytic activity/Vol] 25 U/L Normal <=31 [facility] Comment on above: Performed By: #### L 100.0100, L500.4050, L501.5200 ####[facility] [address] [place], [address] Bilirubin [Mass/Vol] 0.25 mg/dL Normal 0.00-1.30 [facility] Comment on above: Performed By: #### L 100.0100, L500.4050, L501.5200 ####[facility] [address] [place], [address] BUN/CRE 18.4 RATIO Normal 10-20 [facility] Comment on above: Performed By: #### L 100.0100, L500.4050, L501.5200 ####[facility] [address] [place], [address] Calcium [Mass/Vol] 9.4 mg/dL Normal 7.6-11.0 [facility] Comment on above: Performed By: #### L 100.0100, L500.4050, L501.5200 ####[facility] [address] [place], [address] Chloride [Moles/Vol] 102 mmol/L Normal 98-108 [facility] Comment on above: Performed By: #### L 100.0100, L500.4050, L501.5200 ####[facility] [address] [place], [address] CO2 [Moles/Vol] 24.3 mmol/L Normal 21.0-32.0 [facility] Comment on above: Performed By: #### L 100.0100, L500.4050, L501.5200 ####[facility] [address] [place], [address] Creatinine [Mass/Vol] 0.78 mg/dL Normal 0.70-1.20 [facility] Comment on above: Performed By: #### L 100.0100, L500.4050, L501.5200 ####[facility] [address] [place], [address] ECRCL 61.03 ml/min Normal 50-250 [facility] Comment on above: Performed By: #### L 100.0100, L500.4050, L501.5200 ####[facility] [address] [place], [address] GAP 12 Normal 5-15 [facility] Comment on above: Performed By: #### L 100.0100, L500.4050, L501.5200 ####[facility] [address] [place], [address] GFR/1.73 sq M.predicted among non-blacks MDRD (S/P/Bld) [Vol rate/Area] 79 mL/min/{1.73_m2} Normal >60 [facility] Comment on above: Result Comment: mL/m in/1.73m2 CKD-EPI Creatinine Equation (2020) Performed By: #### L 100.0100, L500.4050, L501.5200 ####[facility] [address] [place], [address] Globulin (S) [Mass/Vol] 2.8 g/dL Normal 2.2-4.2 [facility] Comment on above: Performed By: #### L 100.0100, L500.4050, L501.5200 ####[facility] [address] [place], [address] Glucose [Mass/Vol] 135 mg/dL High 70-99 [facility] Comment on above: Performed By: #### L 100.0100, L500.4050, L501.5200 ####[facility] [address] [place], [address] Potassium [Moles/Vol] 3.9 mmol/L Normal 3.3-5.1 [facility] Comment on above: Performed By: #### L 100.0100, L500.4050, L501.5200 ####[facility] [address] [place], [address] Sodium [Moles/Vol] 138 mmol/L Normal 133-145 [facility] Comment on above: Performed By: #### L 100.0100, L500.4050, L501.5200 ####[facility] [address] [place], [address] T PROT 6.4 g/dL Normal 5.9-8.4 [facility] Comment on above: Performed By: #### L 100.0100, L500.4050, L501.5200 ####[facility] [address] [place], [address] Urea nitrogen [Mass/Vol] 14 mg/dL Normal 4-19 [facility] Comment on above: Performed By: #### L 100.0100, L500.4050, L501.5200 ####[facility] [address] [place], [address] Eosinophil percentageOrdered By: [place] on 04-18-2025 Eosinophils/100 WBC (Bld) 5.3 % High 0-5 [facility] Erythrocyte distribution wid th ratioOrdered By: [place] on 04-18-2025 Erythrocyte distribution width (RBC) [Ratio] 13.2 % 11.6-14.6 [facility] Erythrocyte distribution wid th standard deviationOrdered By: [place] on 04-18-2025 Erythrocyte distribution width (RBC) [Ratio] 42.1 fl 35.1-43.9 [facility] Glomerular filtration rate ( GFR) estimation/1.73 sq m using serum, plasma, or whole bOrdered By: [place] on 04-18-2025 GFR/1.73 sq M.predicted among non-blacks MDRD (S/P/Bld) [Vol rate/Area] 79 mL/min/{1.73_m2} >60 [facility] Comment on above: mL/min/1.73m2 CKD-EP I Creatinine Equation (2020) Hematocrit Auto (Bld) [Volum e fraction]Ordered By: [facility] 04-18-2025 Hematocrit (Bld) [Volume fraction] 35.4 % Low 37-47 [facility] Hemoglobin measurementOrdere d By: [place] on 04-18-2025 Hemoglobin (Bld) [Mass/Vol] 11.8 g/dL Low 12.0-15.0 [facility] Immature granulocytes/100 WB C Auto (Bld)Ordered By: [place] on 04-18-2025 Immature granulocytes/100 WBC (Bld) 0.600 % 0.0-0.9 [facility] Comment on above: IG% - Immature Granu locytes (promyelocytes, myelocytes and metamyelocytes) > 1% indicates that a LEFT SHIFT is Present. Laboratory - Chemistry and C hemistry - challengeOrdered By: [place] on 04-18-2025 AST [Catalytic activity/Vol] 25 U/L <32 [facility] MCV (mean corpuscular volume ) determinationOrdered By: [place] on 04-18-2025 MCV (RBC) [Entitic vol] 90.1 fL 81-99 [facility] Magnesiumon 04-18-2025 Magnesium [Mass/Vol] 2.0 mg/dL Normal 1.5-2.2 [facility] Comment on above: Performed By: #### L 100.0100, L500.4050, L501.5200 ####[facility] [address] [place], [address] Magnesium measurement (mass/ volume)Ordered By: [facility] on 04-18-2025 Magnesium (Unsp spec) [Mass/Vol] 2.0 mg/dL 1.5-2.2 [facility] Mean corpuscular hemoglobin (MCH) determinationOrdered By: [facility] on 04-18-2025 MCH (RBC) [Entitic mass] 30.0 pg 27.0-32.0 [facility] Mean corpuscular hemoglobin concentration (MCHC) determinationOrdered By: [facility] [place] on 04-18-2025 MCHC (RBC) [Mass/Vol] 33.3 g/dL 32-36 [facility] Mean platelet volume determi nationOrdered By: [facility] [place] on 04-18-2025 Platelet mean volume (Bld) [Entitic vol] 8.6 fL 6.2-12.0 [facility] Monocyte percentageOrdered B y: [place] on 04-18-2025 Monocytes/100 WBC (Bld) 13.4 % High 0-10 [facility] Neutrophil percentageOrdered By: [facility] [place] on 04-18-2025 Neutrophils/100 WBC (Bld) 49.7 % 47-70 [facility] Nucleated red blood cell per centageOrdered By: [facility] Sen[place] on 04-18-2025 Nucleated RBC/100 WBC (Bld) [Ratio] 0 % 0-5 [facility] Oncology Visit Reporton 04-02 Oncology Visit Report [facility] [place] [facility] [address] [place] [address] OFFICE VISIT Date of Service: 04/18/25928 MR#: [id number] Acct: [id number] Name: JESSIKA CARRILLO Rep #: [id number] : 1950 From: [place] MD Age/Sex: 74/F Location: [facility] [place] Status: Signed HPI Subjective Date of Service 04/18/25 Chief Complaint Colon cancer on treatment History of Present Illness 74-year-old female with no family of colon cancer had screening colonoscopy August 17, [address] Boles at [place] with 2 sessile polypoid lesions were found, [...] left kidney. Patient was then referred to [facility] for further management. December 31, 2024 [...] January 23, 2025 robotic right hemicolectomy at [facility] by Dr. Antonio. Pathology: Right colon [...] January 23, 2025 robotic right hemicolectomy at [facility]. March 21, 2025 adjuvant modified FOLFOX [...] or paresthe (more content not included)... Normal [facility] Platelet countOrdered By: Ru Conn on 04-18-2025 Platelets (Bld) [#/Vol] 216 10*3/uL 150-450 [facility] Potassium measurement (mass/ volume)Ordered By: [place] on 04-18-2025 Potassium (Unsp spec) [Mass/Vol] 3.9 mmol/L 3.3-5.1 [facility] RBC Auto (Bld) [#/Vol]Ordere d By: [place] on 04-18-2025 RBC (Bld) [#/Vol] 3.93 10*6/uL Low 4.2-5.4 [facility] Serum creatinine measurement (mass/volume)Ordered By: [place] on 04-18-2025 Creatinine [Mass/Vol] 0.78 mg/dL 0.70-1.20 [facility] Serum globulin measurementOr dered By: [place] on 04-18-2025 Globulin (S) [Mass/Vol] 2.8 g/dL 2.2-4.2 [facility] Serum glucose measurement (m ass/volume)Ordered By: [place] on 04-18-2025 Glucose [Mass/Vol] 135 mg/dL High 70-99 [facility] Serum or plasma alanine rojo otransferase (ALT) measurementOrdered By: [place] on 04-18-2025 ALT [Catalytic activity/Vol] 24 U/L <35 [facility] Serum or plasma albumin alfredo urement (mass/volume)Ordered By: [place] on 04-18-2025 Albumin [Mass/Vol] 3.6 g/dL 3.4-4.8 [facility] Serum or plasma albumin/glob ulin mass ratioOrdered By: [place] on 04-18-2025 Albumin/Globulin [Mass ratio] 1.3 {ratio} 0.9-2.4 [facility] Serum or plasma alkaline marisabel sphatase measurementOrdered By: [place] on 04-18-2025 ALP [Catalytic activity/Vol] 85 U/L 35-104 [facility] Serum or plasma calcium alfredo urement (mass/volume)Ordered By: [place] on 04-18-2025 Calcium [Mass/Vol] 9.4 mg/dL 7.6-11.0 [facility] Serum or plasma urea nitroge n measurement (mass/volume)Ordered By: [place] on 04-18-2025 Urea nitrogen [Mass/Vol] 14 mg/dL 4-19 [facility] Sodium levelOrdered By: Kurt mejia Sen[place] on 04-18-2025 Sodium [Moles/Vol] 138 mmol/L 133-145 [facility] Total proteinOrdered By: Shady burroughs [place] on 04-18-2025 Protein [Mass/Vol] 6.4 g/dL 5.9-8.4 [facility] White blood cell (WBC) count Ordered By: [place] on 04-18-2025 WBC (Bld) [#/Vol] 5.3 10*3/uL 4.4-11.0 [facility] Absolute lymphocyte countOrd ered By: [facility] [place] on 04-04-2025 Lymphocytes Auto (Unsp spec) [#/Vol] 1.69 10*3/uL 0.83-4.51 [facility] Absolute neutrophil countOrd ered By: [place] on 04-04-2025 Neutrophils (Bld) [#/Vol] 3.6 10*3/uL 2.0-7.7 [facility] Anion gap in Serum or Plasma Ordered By: Kurtjackie Conn on 04-04-2025 Anion gap [Moles/Vol] 10 mmol/L 5-15 [facility] Automated lymphocyte count a s percentage of total leukocytesOrdered By: Kurtjackie Conn on 04-04-2025 Lymphocytes/100 WBC Auto (Unsp spec) 27.5 % 19-41 [facility] BUN/creatinine ratioOrdered By: Kurtjackie Conn on 04-04-2025 Urea nitrogen/Creatinine [Mass ratio] 20.4 mg/mg High 10-20 [facility] Basophil percentageOrdered B y: Kurtjackie Conn on 04-04-2025 Basophils/100 WBC (Bld) 1.1 % High 0-1 [facility] Bilirubin, totalOrdered By: Kurtjackie Conn on 04-04-2025 Bilirubin [Mass/Vol] 0.21 mg/dL 0.00-1.30 [facility] CBC W/Diff, Automatedon Absolute Lymph 1.69 X10 3/uL Normal 0.83-4.51 [facility] Comment on above: Performed By: #### L 100.0100, L501.5200, L500.4050 ####[facility] [address] [place], [address] Absolute Neut 3.6 X10 3/uL Normal 2.0-7.7 [facility] Comment on above: Performed By: #### L 100.0100, L501.5200, L500.4050 ####[facility] [address] [place], [address] Basophils/100 WBC (Bld) 1.1 % High 0-1 [facility] Comment on above: Performed By: #### L 100.0100, L501.5200, L500.4050 ####[facility] [address] [place], [address] Eosinophils/100 WBC (Bld) 4.6 % Normal 0-5 [facility] Comment on above: Performed By: #### L 100.0100, L501.5200, L500.4050 ####[facility] [address] [place], [address] Erythrocyte distribution width (RBC) [Ratio] 12.7 % Normal 11.6-14.6 [facility] Comment on above: Performed By: #### L 100.0100, L501.5200, L500.4050 ####[facility] [address] [place], [address] Hematocrit (Bld) [Volume fraction] 37.5 % Normal 37-47 [facility] Comment on above: Performed By: #### L 100.0100, L501.5200, L500.4050 ####[facility] [address] [place], [address] Hemoglobin (Bld) [Mass/Vol] 12.2 g/dL Normal 12.0-15.0 [facility] Comment on above: Performed By: #### L 100.0100, L501.5200, L500.4050 ####[facility] [address] [place], [address] IG% 0.500 Normal 0.0-0.9 [facility] Comment on above: Result Comment: IG% - Immature Granulocytes (promyelocytes, myelocytes and metamyelocytes) > 1% indicates that a LEFT SHIFT is Present. Performed By: #### L 100.0100, L501.5200, L500.4050 ####[facility] [address] [place], [address] Lymphocytes/100 WBC (Bld) 27.5 % Normal 19-41 [facility] Comment on above: Performed By: #### L 100.0100, L501.5200, L500.4050 ####[facility] [address] [place], [address] MCH (RBC) [Entitic mass] 30.0 pg Normal 27.0-32.0 [facility] Comment on above: Performed By: #### L 100.0100, L501.5200, L500.4050 ####[facility] [address] [place], [address] MCHC (RBC) [Mass/Vol] 32.5 g/dL Normal 32-36 [facility] Comment on above: Performed By: #### L 100.0100, L501.5200, L500.4050 ####[facility] [address] [place], [address] MCV (RBC) [Entitic vol] 92.4 fL Normal 81-99 [facility] Comment on above: Performed By: #### L 100.0100, L501.5200, L500.4050 ####[facility] [address] [place], [address] Monocytes/100 WBC (Bld) 8.3 % Normal 0-10 [facility] Comment on above: Performed By: #### L 100.0100, L501.5200, L500.4050 ####[facility] [address] [place], [address] Neutrophils/100 WBC (Bld) 58.0 % Normal 47-70 [facility] Comment on above: Performed By: #### L 100.0100, L501.5200, L500.4050 ####[facility] [address] [place], [address] Nucleated RBC (Bld) [#/Vol] 0 10*3/uL Normal 0-5 [facility] Comment on above: Performed By: #### L 100.0100, L501.5200, L500.4050 ####[facility] [address] [place], [address] Platelet mean volume (Bld) [Entitic vol] 8.8 fL Normal 6.2-12.0 [facility] Comment on above: Performed By: #### L 100.0100, L501.5200, L500.4050 ####[facility] [address] [place], [address] Platelets (Bld) [#/Vol] 270 10*3/uL Normal 150-450 [facility] Comment on above: Performed By: #### L 100.0100, L501.5200, L500.4050 ####[facility] [address] [place], [address] RBC (Bld) [#/Vol] 4.06 10*6/uL Low 4.2-5.4 [facility] Comment on above: Performed By: #### L 100.0100, L501.5200, L500.4050 ####[facility] [address] [place], [address] RDW SD 42.2 fl Normal 35.1-43.9 [facility] Comment on above: Performed By: #### L 100.0100, L501.5200, L500.4050 ####[facility] [address] [place], [address] WBC (Bld) [#/Vol] 6.2 10*3/uL Normal 4.4-11.0 [facility] Comment on above: Performed By: #### L 100.0100, L501.5200, L500.4050 ####[facility] [address] [place], [address] Carbon dioxide, total [Moles /volume] in Central venous bloodOrdered By: [place] on 04-04-2025 CO2 [Moles/Vol] 25.8 mmol/L 21.0-32.0 [facility] Chloride assayOrdered By: Ru Conn on 04-04-2025 Chloride [Moles/Vol] 105 mmol/L 98-108 [facility] Comprehensive Metabolic Prof ilon 04-04-2025 Albumin [Mass/Vol] 3.7 g/dL Normal 3.4-4.8 [facility] Comment on above: Performed By: #### L 100.0100, L501.5200, L500.4050 ####[facility] [address] [place], [address] Albumin/Globulin [Mass ratio] 1.3 {ratio} Normal 0.9-2.4 [facility] Comment on above: Performed By: #### L 100.0100, L501.5200, L500.4050 ####[facility] [address] [place], [address] ALK PHOS 77 U/L Normal 35-104 [facility] Comment on above: Performed By: #### L 100.0100, L501.5200, L500.4050 ####[facility] [address] [place], [address] ALT [Catalytic activity/Vol] 26 U/L Normal <=34 [facility] Comment on above: Performed By: #### L 100.0100, L501.5200, L500.4050 ####[facility] [address] [place], [address] AST [Catalytic activity/Vol] 28 U/L Normal <=31 [facility] Comment on above: Performed By: #### L 100.0100, L501.5200, L500.4050 ####[facility] [address] [place], [address] Bilirubin [Mass/Vol] 0.21 mg/dL Normal 0.00-1.30 [facility] Comment on above: Performed By: #### L 100.0100, L501.5200, L500.4050 ####[facility] [facility] [address] [place], [address] BUN/CRE 20.4 RATIO High 10-20 [facility] Comment on above: Performed By: #### L 100.0100, L501.5200, L500.4050 ####[facility] [address] [place], [address] Calcium [Mass/Vol] 9.1 mg/dL Normal 7.6-11.0 [facility] Comment on above: Performed By: #### L 100.0100, L501.5200, L500.4050 ####[facility] [address] [place], [address] Chloride [Moles/Vol] 105 mmol/L Normal 98-108 [facility] Comment on above: Performed By: #### L 100.0100, L501.5200, L500.4050 ####[facility] [address] [place], [address] CO2 [Moles/Vol] 25.8 mmol/L Normal 21.0-32.0 [facility] Comment on above: Performed By: #### L 100.0100, L501.5200, L500.4050 ####[facility] [address] [place], [address] Creatinine [Mass/Vol] 0.68 mg/dL Low 0.70-1.20 [facility] Comment on above: Performed By: #### L 100.0100, L501.5200, L500.4050 ####[facility] [address] [place], [address] ECRCL 61.42 ml/min Normal 50-250 [facility] Comment on above: Performed By: #### L 100.0100, L501.5200, L500.4050 ####[facility] [address] [place], [address] GAP 10 Normal 5-15 [facility] Comment on above: Performed By: #### L 100.0100, L501.5200, L500.4050 ####[facility] [address] [place], [address] GFR/1.73 sq M.predicted among non-blacks MDRD (S/P/Bld) [Vol rate/Area] 91 mL/min/{1.73_m2} Normal >60 [facility] Comment on above: Result Comment: mL/m in/1.73m2 CKD-EPI Creatinine Equation (2020) Performed By: #### L 100.0100, L501.5200, L500.4050 ####[facility] [address] [place], [address] Globulin (S) [Mass/Vol] 2.8 g/dL Normal 2.2-4.2 [facility] Comment on above: Performed By: #### L 100.0100, L501.5200, L500.4050 ####[facility] [address] [place], [address] Glucose [Mass/Vol] 124 mg/dL High 70-99 [facility] Comment on above: Performed By: #### L 100.0100, L501.5200, L500.4050 ####[facility] [address] [place], [address] Potassium [Moles/Vol] 4.0 mmol/L Normal 3.3-5.1 [facility] Comment on above: Performed By: #### L 100.0100, L501.5200, L500.4050 ####[facility] [address] [place], [address] Sodium [Moles/Vol] 140 mmol/L Normal 133-145 [facility] Comment on above: Performed By: #### L 100.0100, L501.5200, L500.4050 ####[facility] [address] [place], [address] T PROT 6.6 g/dL Normal 5.9-8.4 [facility] Comment on above: Performed By: #### L 100.0100, L501.5200, L500.4050 ####[facility] [address] [place], [address] Urea nitrogen [Mass/Vol] 14 mg/dL Normal 4-19 [facility] Comment on above: Performed By: #### L 100.0100, L501.5200, L500.4050 ####[facility] [address] [place], [address] Eosinophil percentageOrdered By: [place] on 04-04-2025 Eosinophils/100 WBC (Bld) 4.6 % 0-5 [facility] Erythrocyte distribution wid th ratioOrdered By: [place] on 04-04-2025 Erythrocyte distribution width (RBC) [Ratio] 12.7 % 11.6-14.6 [facility] Erythrocyte distribution wid th standard deviationOrdered By: [facility] Hospital[facility] Conn on 04-04-2025 Erythrocyte distribution width (RBC) [Ratio] 42.2 fl 35.1-43.9 [facility] Glomerular filtration rate ( GFR) estimation/1.73 sq m using serum, plasma, or whole bOrdered By: [facility] Hospital[facility]ie Conn on 04-04-2025 GFR/1.73 sq M.predicted among non-blacks MDRD (S/P/Bld) [Vol rate/Area] 91 mL/min/{1.73_m2} >60 [facility] Comment on above: mL/min/1.73m2 CKD-EP I Creatinine Equation (2020) Hematocrit Auto (Bld) [Volum e fraction]Ordered By: [facility] on 04-04-2025 Hematocrit (Bld) [Volume fraction] 37.5 % 37-47 [facility] Hemoglobin measurementOrdere d By: [facility] Senia on 04-04-2025 Hemoglobin (Bld) [Mass/Vol] 12.2 g/dL 12.0-15.0 [facility] Immature granulocytes/100 WB C Auto (Bld)Ordered By: [facility] on 04-04-2025 Immature granulocytes/100 WBC (Bld) 0.500 % 0.0-0.9 [facility] Comment on above: IG% - Immature Granu locytes (promyelocytes, myelocytes and metamyelocytes) > 1% indicates that a LEFT SHIFT is Present. Laboratory - Chemistry and C hemistry - challengeOrdered By: [facility] Hospital[facility] Conn on 04-04-2025 AST [Catalytic activity/Vol] 28 U/L <32 [facility] MCV (mean corpuscular volume ) determinationOrdered By: [facility] 04-04-2025 MCV (RBC) [Entitic vol] 92.4 fL 81-99 [facility] Magnesiumon 04-04-2025 Magnesium [Mass/Vol] 2.1 mg/dL Normal 1.5-2.2 [facility] Comment on above: Performed By: #### L 100.0100, L501.5200, L500.4050 ####[facility] [address] [place], [address] Magnesium measurement (mass/ volume)Ordered By: [place] on 04-04-2025 Magnesium (Unsp spec) [Mass/Vol] 2.1 mg/dL 1.5-2.2 [facility] Mean corpuscular hemoglobin (MCH) determinationOrdered By: [facility] on 04-04-2025 MCH (RBC) [Entitic mass] 30.0 pg 27.0-32.0 [facility] Mean corpuscular hemoglobin concentration (MCHC) determinationOrdered By: [facility] on 04-04-2025 MCHC (RBC) [Mass/Vol] 32.5 g/dL 32-36 [facility] Mean platelet volume determi nationOrdered By: [facility] Hospital[facility] on 04-04-2025 Platelet mean volume (Bld) [Entitic vol] 8.8 fL 6.2-12.0 [facility] Monocyte percentageOrdered B y: [facility] Senia on 04-04-2025 Monocytes/100 WBC (Bld) 8.3 % 0-10 [facility] Neutrophil percentageOrdered By: [facility] Senia on 04-04-2025 Neutrophils/100 WBC (Bld) 58.0 % 47-70 [facility] Nucleated red blood cell per centageOrdered By: [facility] Senia on 04-04-2025 Nucleated RBC/100 WBC (Bld) [Ratio] 0 % 0-5 [facility] Oncology Visit Reporton Oncology Visit Report [facility] [address] [place] [address] OFFICE VISIT Date of Service: 04/04/25 0814 MR#: [id number] Acct: [id number] Name: FITOJESSIKA Shannon Perry Rep #: [id number] : 1950 From: Alyssa Lynch NP 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 Boles at [place] with 2 sessile polypoid lesions were found, [...] left kidney. Patient was then referred to [facility] for further management. December 31, 2024 [...] January 23, 2025 robotic right hemicolectomy at [facility] by Dr. Antonio. Pathology: Right colon [...] January 23, 2025 robotic right hemicolectomy at [facility]. March 21, 2025- mFOLFOX Interval History [...] as 2 L of fluid each day. 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 Normal [facility] Platelet countOrdered By: uR Conn on 04-04-2025 Platelets (Bld) [#/Vol] 270 10*3/uL 150-450 [facility] Potassium measurement (mass/ volume)Ordered By: [place] on 04-04-2025 Potassium (Unsp spec) [Mass/Vol] 4.0 mmol/L 3.3-5.1 [facility] RBC Auto (Bld) [#/Vol]Ordere d By: [place] on 04-04-2025 RBC (Bld) [#/Vol] 4.06 10*6/uL Low 4.2-5.4 [facility] Serum creatinine measurement (mass/volume)Ordered By: [place] on 04-04-2025 Creatinine [Mass/Vol] 0.68 mg/dL Low 0.70-1.20 [facility] Serum globulin measurementOr dered By: [place] on 04-04-2025 Globulin (S) [Mass/Vol] 2.8 g/dL 2.2-4.2 [facility] Serum glucose measurement (m ass/volume)Ordered By: [place] on 04-04-2025 Glucose [Mass/Vol] 124 mg/dL High 70-99 [facility] Serum or plasma alanine rojo otransferase (ALT) measurementOrdered By: [place] on 04-04-2025 ALT [Catalytic activity/Vol] 26 U/L <35 [facility] Serum or plasma albumin alfredo urement (mass/volume)Ordered By: [place] on 04-04-2025 Albumin [Mass/Vol] 3.7 g/dL 3.4-4.8 [facility] Serum or plasma albumin/glob ulin mass ratioOrdered By: [place] on 04-04-2025 Albumin/Globulin [Mass ratio] 1.3 {ratio} 0.9-2.4 [facility] Serum or plasma alkaline marisabel sphatase measurementOrdered By: [place] on 04-04-2025 ALP [Catalytic activity/Vol] 77 U/L 35-104 [facility] Serum or plasma calcium alfredo urement (mass/volume)Ordered By: [place] on 04-04-2025 Calcium [Mass/Vol] 9.1 mg/dL 7.6-11.0 [facility] Serum or plasma urea nitroge n measurement (mass/volume)Ordered By: [place] on 04-04-2025 Urea nitrogen [Mass/Vol] 14 mg/dL 4-19 [facility] Sodium levelOrdered By: Kurt mejia Senia on 04-04-2025 Sodium [Moles/Vol] 140 mmol/L 133-145 [facility] Total proteinOrdered By: Shady burroughs Senia on 04-04-2025 Protein [Mass/Vol] 6.6 g/dL 5.9-8.4 [facility] White blood cell (WBC) count Ordered By: [place] on 04-04-2025 WBC (Bld) [#/Vol] 6.2 10*3/uL 4.4-11.0 [facility] Carcinoembryonic Antigenon 0 03-22-2025 CEA 5.5 ng/mL High 0.0-4.7 [facility] Comment on above: Order Comment: ADD O N FROM EARLIER TODAY, THANKS Result Comment: Nons mokers <3.9 Smokers <5.6 [facility] Electrochemiluminescence Immunoassay (ECLIA) Values obtained with different assay methods or kits cannot be used interchangeably. Results cannot be interpreted as absolute evidence of the presence or absence of malignant disease. Performed at: [facility] [employer] [address] [id number] Community Outreach Worker: Abimael Sheridan PhD, Phone: [phone] Performed By: #### L 3242.0160 #### [facility] [address] [place], [address] Absolute lymphocyte countOrd ered By: Kurtjackie Conn on 03-21-2025 Lymphocytes Auto (Unsp spec) [#/Vol] 2.00 10*3/uL 0.83-4.51 [facility] Absolute neutrophil countOrd ered By: Kurtjackie Conn on 03-21-2025 Neutrophils (Bld) [#/Vol] 4.1 10*3/uL 2.0-7.7 [facility] Anion gap in Serum or Plasma Ordered By: [place] on 03-21-2025 Anion gap [Moles/Vol] 10 mmol/L 5-15 [facility] Automated lymphocyte count a s percentage of total leukocytesOrdered By: [place] on 03-21-2025 Lymphocytes/100 WBC Auto (Unsp spec) 28.7 % - [facility] BUN/creatinine ratioOrdered By: [place] on 03-21-2025 Urea nitrogen/Creatinine [Mass ratio] 24.4 mg/mg High - [facility] Basophil percentageOrdered B y: [place] on 03-21-2025 Basophils/100 WBC (Bld) 0.7 % 0- [facility] Bilirubin, totalOrdered By: [place] on 03-21-2025 Bilirubin [Mass/Vol] 0.23 mg/dL 0.00-1.30 [facility] CBC W/Diff, Automatedon 03-03 Absolute Lymph 2.00 X10 3/uL Normal 0.83-4.51 [facility] Comment on above: Performed By: #### L 100.0100, L500.4050, L501.5200 ####[facility] [address] [place], [address] Absolute Neut 4.1 X10 3/uL Normal 2.0-7.7 [facility] Comment on above: Performed By: #### L 100.0100, L500.4050, L501.5200 ####[facility] [address] [place], [address] Basophils/100 WBC (Bld) 0.7 % Normal 0-1 [facility] Comment on above: Performed By: #### L 100.0100, L500.4050, L501.5200 ####[facility] [address] [place], [address] Eosinophils/100 WBC (Bld) 3.4 % Normal 0-5 [facility] Comment on above: Performed By: #### L 100.0100, L500.4050, L501.5200 ####[facility] [address] [place], [address] Erythrocyte distribution width (RBC) [Ratio] 12.6 % Normal 11.6-14.6 [facility] Comment on above: Performed By: #### L 100.0100, L500.4050, L501.5200 ####[facility] [address] [place], [address] Hematocrit (Bld) [Volume fraction] 37.7 % Normal 37-47 [facility] Comment on above: Performed By: #### L 100.0100, L500.4050, L501.5200 ####[facility] [address] [place], [address] Hemoglobin (Bld) [Mass/Vol] 12.2 g/dL Normal 12.0-15.0 [facility] Comment on above: Performed By: #### L 100.0100, L500.4050, L501.5200 ####[facility] [address] [place], [address] IG% 0.400 Normal 0.0-0.9 [facility] Comment on above: Result Comment: IG% - Immature Granulocytes (promyelocytes, myelocytes and metamyelocytes) > 1% indicates that a LEFT SHIFT is Present. Performed By: #### L 100.0100, L500.4050, L501.5200 ####[facility] [address] [place], [address] Lymphocytes/100 WBC (Bld) 28.7 % Normal 19-41 [facility] Comment on above: Performed By: #### L 100.0100, L500.4050, L501.5200 ####[facility] [address] [place], [address] MCH (RBC) [Entitic mass] 29.9 pg Normal 27.0-32.0 [facility] Comment on above: Performed By: #### L 100.0100, L500.4050, L501.5200 ####[facility] [address] [place], [address] MCHC (RBC) [Mass/Vol] 32.4 g/dL Normal 32-36 [facility] Comment on above: Performed By: #### L 100.0100, L500.4050, L501.5200 ####[facility] [address] [place], [address] MCV (RBC) [Entitic vol] 92.4 fL Normal 81-99 [facility] Comment on above: Performed By: #### L 100.0100, L500.4050, L501.5200 ####[facility] [address] [place], [address] Monocytes/100 WBC (Bld) 7.9 % Normal 0-10 [facility] Comment on above: Performed By: #### L 100.0100, L500.4050, L501.5200 ####[facility] [address] [place], [address] Neutrophils/100 WBC (Bld) 58.9 % Normal 47-70 [facility] Comment on above: Performed By: #### L 100.0100, L500.4050, L501.5200 ####[facility] [address] [place], [address] Nucleated RBC (Bld) [#/Vol] 0 10*3/uL Normal 0-5 [facility] Comment on above: Performed By: #### L 100.0100, L500.4050, L501.5200 ####[facility] [address] [place], [address] Platelet mean volume (Bld) [Entitic vol] 9.4 fL Normal 6.2-12.0 [facility] Comment on above: Performed By: #### L 100.0100, L500.4050, L501.5200 ####[facility] [address] [place], [address] Platelets (Bld) [#/Vol] 326 10*3/uL Normal 150-450 [facility] Comment on above: Performed By: #### L 100.0100, L500.4050, L501.5200 ####[facility] [address] [place], [address] RBC (Bld) [#/Vol] 4.08 10*6/uL Low 4.2-5.4 [facility] Comment on above: Performed By: #### L 100.0100, L500.4050, L501.5200 ####[facility] [address] [place], [address] RDW SD 42.9 fl Normal 35.1-43.9 [facility] Comment on above: Performed By: #### L 100.0100, L500.4050, L501.5200 ####[facility] [address] [place], [address] WBC (Bld) [#/Vol] 7.0 10*3/uL Normal 4.4-11.0 [facility] Comment on above: Performed By: #### L 100.0100, L500.4050, L501.5200 ####[facility] [address] [place], [address] Carbon dioxide, total [Moles /volume] in Central venous bloodOrdered By: [place] on 03-21-2025 CO2 [Moles/Vol] 24.6 mmol/L 21.0-32.0 [facility] Chloride assayOrdered By: Ru Conn on 03-21-2025 Chloride [Moles/Vol] 105 mmol/L 98-108 [facility] Comprehensive Metabolic Prof ilon 03-21-2025 Albumin [Mass/Vol] 3.7 g/dL Normal 3.4-4.8 [facility] Comment on above: Performed By: #### L 100.0100, L500.4050, L501.5200 ####[facility] [address] [place], [address] Albumin/Globulin [Mass ratio] 1.2 {ratio} Normal 0.9-2.4 [facility] Comment on above: Performed By: #### L 100.0100, L500.4050, L501.5200 ####[facility] [address] [place], [address] ALK PHOS 63 U/L Normal 35-104 [facility] Comment on above: Performed By: #### L 100.0100, L500.4050, L501.5200 ####[facility] [address] [place], [address] ALT [Catalytic activity/Vol] 18 U/L Normal <=34 [facility] Comment on above: Performed By: #### L 100.0100, L500.4050, L501.5200 ####[facility] [address] [place], [address] AST [Catalytic activity/Vol] 24 U/L Normal <=31 [facility] Comment on above: Performed By: #### L 100.0100, L500.4050, L501.5200 ####[facility] [address] [place], [address] Bilirubin [Mass/Vol] 0.23 mg/dL Normal 0.00-1.30 [facility] Comment on above: Performed By: #### L 100.0100, L500.4050, L501.5200 ####[facility] [address] [place], [address] BUN/CRE 24.4 RATIO High 10-20 [facility] Comment on above: Performed By: #### L 100.0100, L500.4050, L501.5200 ####[facility] [address] [place], [address] Calcium [Mass/Vol] 9.0 mg/dL Normal 7.6-11.0 [facility] Comment on above: Performed By: #### L 100.0100, L500.4050, L501.5200 ####[facility] [address] [place], [address] Chloride [Moles/Vol] 105 mmol/L Normal 98-108 [facility] Comment on above: Performed By: #### L 100.0100, L500.4050, L501.5200 ####[facility] [address] [place], [address] CO2 [Moles/Vol] 24.6 mmol/L Normal 21.0-32.0 [facility] Comment on above: Performed By: #### L 100.0100, L500.4050, L501.5200 ####[facility] [address] [place], [address] Creatinine [Mass/Vol] 0.77 mg/dL Normal 0.70-1.20 [facility] Comment on above: Performed By: #### L 100.0100, L500.4050, L501.5200 ####[facility] [address] [place], [address] ECRCL 61.90 ml/min Normal 50-250 [facility] Comment on above: Performed By: #### L 100.0100, L500.4050, L501.5200 ####[facility] [address] [place], [address] GAP 10 Normal 5-15 [facility] Comment on above: Performed By: #### L 100.0100, L500.4050, L501.5200 ####[facility] [address] [place], [address] GFR/1.73 sq M.predicted among non-blacks MDRD (S/P/Bld) [Vol rate/Area] 81 mL/min/{1.73_m2} Normal >60 [facility] Comment on above: Result Comment: mL/m in/1.73m2 CKD-EPI Creatinine Equation (2020) Performed By: #### L 100.0100, L500.4050, L501.5200 ####[facility] [address] [place], [address] Globulin (S) [Mass/Vol] 3.0 g/dL Normal 2.2-4.2 [facility] Comment on above: Performed By: #### L 100.0100, L500.4050, L501.5200 ####[facility] [address] [place], [address] Glucose [Mass/Vol] 124 mg/dL High 70-99 [facility] Comment on above: Performed By: #### L 100.0100, L500.4050, L501.5200 ####[facility] [address] [place], [address] Potassium [Moles/Vol] 3.8 mmol/L Normal 3.3-5.1 [facility] Comment on above: Performed By: #### L 100.0100, L500.4050, L501.5200 ####[facility] [address] [place], [address] Sodium [Moles/Vol] 139 mmol/L Normal 133-145 [facility] Comment on above: Performed By: #### L 100.0100, L500.4050, L501.5200 ####[facility] [address] [place], [address] T PROT 6.6 g/dL Normal 5.9-8.4 [facility] Comment on above: Performed By: #### L 100.0100, L500.4050, L501.5200 ####[facility] [address] [place], [address] Urea nitrogen [Mass/Vol] 19 mg/dL Normal 4-19 [facility] Comment on above: Performed By: #### L 100.0100, L500.4050, L501.5200 ####[facility] [address] [place], [address] Eosinophil percentageOrdered By: [place] on 03-21-2025 Eosinophils/100 WBC (Bld) 3.4 % 0-5 [facility] Erythrocyte distribution wid th ratioOrdered By: [facility] on 03-21-2025 Erythrocyte distribution width (RBC) [Ratio] 12.6 % 11.6-14.6 [facility] Erythrocyte distribution wid th standard deviationOrdered By: [place] on 03-21-2025 Erythrocyte distribution width (RBC) [Ratio] 42.9 fl 35.1-43.9 [facility] Glomerular filtration rate ( GFR) estimation/1.73 sq m using serum, plasma, or whole bOrdered By: [place] on 03-21-2025 GFR/1.73 sq M.predicted among non-blacks MDRD (S/P/Bld) [Vol rate/Area] 81 mL/min/{1.73_m2} >60 [facility] Comment on above: mL/min/1.73m2 CKD-EP I Creatinine Equation (2020) Hematocrit Auto (Bld) [Volum e fraction]Ordered By: [facility] Conn on 03-21-2025 Hematocrit (Bld) [Volume fraction] 37.7 % 37-47 [facility] Hemoglobin measurementOrdere d By: [place] on 03-21-2025 Hemoglobin (Bld) [Mass/Vol] 12.2 g/dL 12.0-15.0 [facility] Immature granulocytes/100 WB C Auto (Bld)Ordered By: [place] on 03-21-2025 Immature granulocytes/100 WBC (Bld) 0.400 % 0.0-0.9 [facility] Comment on above: IG% - Immature Granu locytes (promyelocytes, myelocytes and metamyelocytes) > 1% indicates that a LEFT SHIFT is Present. Laboratory - Chemistry and C hemistry - challengeOrdered By: [place] on 03-21-2025 AST [Catalytic activity/Vol] 24 U/L <32 [facility] MCV (mean corpuscular volume ) determinationOrdered By: [place] on 03-21-2025 MCV (RBC) [Entitic vol] 92.4 fL 81-99 [facility] Magnesiumon 03-21-2025 Magnesium [Mass/Vol] 2.1 mg/dL Normal 1.5-2.2 [facility] Comment on above: Performed By: #### L 100.0100, L500.4050, L501.5200 ####[facility] [address] [place], [place], [address] Magnesium measurement (mass/ volume)Ordered By: [place] on 03-21-2025 Magnesium (Unsp spec) [Mass/Vol] 2.1 mg/dL 1.5-2.2 [facility] Mean corpuscular hemoglobin (MCH) determinationOrdered By: [place] on 03-21-2025 MCH (RBC) [Entitic mass] 29.9 pg 27.0-32.0 [facility] Mean corpuscular hemoglobin concentration (MCHC) determinationOrdered By: [place] on 03-21-2025 MCHC (RBC) [Mass/Vol] 32.4 g/dL 32-36 [facility] Mean platelet volume determi nationOrdered By: [place] on 03-21-2025 Platelet mean volume (Bld) [Entitic vol] 9.4 fL 6.2-12.0 [facility] Monocyte percentageOrdered B y: [place] on 03-21-2025 Monocytes/100 WBC (Bld) 7.9 % 0-10 [facility] Neutrophil percentageOrdered By: [facility] on 03-21-2025 Neutrophils/100 WBC (Bld) 58.9 % 47-70 [facility] Nucleated red blood cell per centageOrdered By: [facility] on 03-21-2025 Nucleated RBC/100 WBC (Bld) [Ratio] 0 % 0-5 [facility] Oncology Visit Reporton 03-03 Oncology Visit Report [facility] [facility] [address] [place] [address] OFFICE VISIT Date of Service: 03/21/25 0800 MR#: [id number] Acct: [id number] Name: JESSIKA CARRILLO Rep #: [id number] : 1950 From: Alyssa Lynch NP PULL OVER MACHINE OPERATOR -C Age/Sex: 74/F Location[place] [facility] [place] Status: Signed HPI Subjective Date of Service 03/21/25 Chief Complaint Colon cancer History of Present Illness 74-year-old female with no family of colon cancer had screening colonoscopy August 17, [address] Boles at [place] with 2 sessile polypoid lesions were found, [...] left kidney. Patient was then referred to [facility] for further management. December 31, 2024 [...] January 23, 2025 robotic right hemicolectomy at [facility] by Dr. Antonio. Pathology: Right colon [...] January 23, 2025 robotic right hemicolectomy at [facility]. March 21, 2025- mFOLFOX Interval History The patient is presenting to clinic accompanied by adult daughter, Don for an evaluation anticipating she will begin adjuvant mFOLFOX. No diarrhea. LBM 03/21/25. Reports active lifestyle and good support system by way of daughters. [facility], [facility] Medical History (Updated 03/21/25 @ 08:45 by Alyssa Lynch PULL OVER MACHINE OPERATOR, PULL OVER MACHINE OPERATOR-C) Encounter for chemotherapy management Loss of hearing [...] Rx tablet (more content not included)... Normal [facility] Platelet countOrdered By: Ru Conn on 03-21-2025 Platelets (Bld) [#/Vol] 326 10*3/uL 150-450 [facility] Potassium measurement (mass/ volume)Ordered By: [place] on 03-21-2025 Potassium (Unsp spec) [Mass/Vol] 3.8 mmol/L 3.3-5.1 [facility] RBC Auto (Bld) [#/Vol]Ordere d By: [place] on 03-21-2025 RBC (Bld) [#/Vol] 4.08 10*6/uL Low 4.2-5.4 [facility] Serum creatinine measurement (mass/volume)Ordered By: [place] on 03-21-2025 Creatinine [Mass/Vol] 0.77 mg/dL 0.70-1.20 [facility] Serum globulin measurementOr dered By: [place] on 03-21-2025 Globulin (S) [Mass/Vol] 3.0 g/dL 2.2-4.2 [facility] Serum glucose measurement (m ass/volume)Ordered By: [place] on 03-21-2025 Glucose [Mass/Vol] 124 mg/dL High 70-99 [facility] Serum or plasma alanine rojo otransferase (ALT) measurementOrdered By: [place] on 03-21-2025 ALT [Catalytic activity/Vol] 18 U/L <35 [facility] Serum or plasma albumin alfredo urement (mass/volume)Ordered By: [place] on 03-21-2025 Albumin [Mass/Vol] 3.7 g/dL 3.4-4.8 [facility] Serum or plasma albumin/glob ulin mass ratioOrdered By: [place] on 03-21-2025 Albumin/Globulin [Mass ratio] 1.2 {ratio} 0.9-2.4 [facility] Serum or plasma alkaline marisabel sphatase measurementOrdered By: [place] on 03-21-2025 ALP [Catalytic activity/Vol] 63 U/L 35-104 [facility] Serum or plasma calcium alfredo urement (mass/volume)Ordered By: [place] on 03-21-2025 Calcium [Mass/Vol] 9.0 mg/dL 7.6-11.0 [facility] Serum or plasma carcinoembry onic antigen measurement (mass/volume)Ordered By: Alyssa Lynch on 03-21-2025 Carcinoembryonic Ag [Mass/Vol] 5.5 ng/mL High 0.0-4.7 [facility] Comment on above: Nonsmokers <3.9 Smok ers <5.6[employer] Electrochemiluminescence Immunoassay(ECLIA)Values obtained with different assay methods or kitscannot be used interchangeably. Results cannot beinterpreted as absolute evidence of the presence orabsence of malignant disease.Performed at: [address] [id number] Director: Abimael Sheridan PhD, Phone: [phone] Serum or plasma urea nitroge n measurement (mass/volume)Ordered By: [place] on 03-21-2025 Urea nitrogen [Mass/Vol] 19 mg/dL 4-19 [facility] Sodium levelOrdered By: Kurt Conn on 03-21-2025 Sodium [Moles/Vol] 139 mmol/L 133-145 [facility] Total proteinOrdered By: Shady Conn on 03-21-2025 Protein [Mass/Vol] 6.6 g/dL 5.9-8.4 [facility] White blood cell (WBC) count Ordered By: [place] on 03-21-2025 WBC (Bld) [#/Vol] 7.0 10*3/uL 4.4-11.0 [facility] CXR for Line Placementon CXR for Line Placement [facility] Imaging Services [address] [place] [address] CXR for Line Placement MR#: [id number] Acct: [id number] Name: JESSIKA CARRILLO Rep #: [id number] : 1950 F 74 From: Russell Greco MD PCP: JUVENTINO Pérez [place] [facility] [place] Study: CXR for Line Placement Date of Exam: 03/20/25 Exam# [id number] Ordering Dr: Michael Gaines MD PROCEDURE: CXR [...] No infiltrates. 3. No pneumothorax. [facility] CC: Dr. Michael Gaines MD; JUVENTINO Pérez Assembler 1St Shift: Signed Normal [facility] Discharge Instructionon 03-02 Discharge Instruction [facility] Medical Records Department [address] [place] [address] Instructions for Home/Discharge Instructions 03/20/25 1316 MR#: [id number] Acct: [id number] Name: JESSIKA CARRILLO Rep #: [id number] : 1950 74 From: Michael Gaines MD PCP: JUVENTINO Pérez [place] [facility] [place] Instructions Diet Discharge Diet: Light diet [...] Care Provider: Shu Chow Instructions Print Language: Omani Discharge Orders/Prescriptions Prescriptions: New oxycodone-acetaminophen [Percocet] 5-325 [...] Gaines MD CC: JUVENTINO Pérez Signed Normal [facility] MR/POSTOP.[facility] 03-20-2025 MR/POSTOP.[facility] Medical Records Department [address] [place] [address] Anesthesia Postop Eval I 03/20/25 1317 MR#: [id number] Acct: [id number] Name: JESSIKA CARRILLO Rep #: [id number] : 1950 74 From: Ora Perez CRNA PCP: JUVENTINO Pérez Status:REG SDC Y Race: C Location: [place] [address] Anesthesia: Postop Eval I Current Vital Signs [...] completed: Yes 03/20/25 1318 Date Ora Perez PROGRAMMER [employer]NA[employer] Cosigner Signature: Date CC: Signed Normal [facility] MR/[id number] 03-20-2025 [facility] Medical Records Department [address] [place] [address] Anesthesia Postop Eval II 03/20/25 1424 MR#: [id number] Acct: [id number] Name: JESSIKA CARRILLO Rep #: [id number] : 1950 74 From: Josue Ceballos MD PCP: JUVENTINO Pérez [place] [facility] [place] Race: C Location: [place] [address] Anesthesia Postop Eval I Sum Postop Eval Completion status Anesthesia document: Postop Eval 1 completed: Yes Anesthesia Postop Eval I Summary Anesthesia Postop Eval I Summary: Anesthesia Postop Eval I: Assessment Summary Airway patent Yes 03/20/25 13:18 [employer]GRAM[employer]NA[employer].HBARR Spontaneous unlabored Yes 03/20/25 13:18 [employer]GRAMMER [employer].[facility]ARR respirations Mental status Awake 03/20/25 13:18 [employer]GRAM[employer].[facility]ARR nausea No 03/20/25 13:18 [employer]GRAM[employer].[facility] Vomiting No 03/20/25 13:18 [employer]GRAMMER [employer].[facility]ARR Anesthesia Postop Eval I: Fluid Summary Crystalloid volume administer 500 03/20/25 13:18 [employer]GRAM[employer].HBARR (ml) Colloids volume administered ( ml) Blood Product volume administered (ml) Total IV fluid infused 500 03/20/25 13:18 [employer].[facility]ARR Anesthesia Postop Eval I: Summary Notes Anesthesia Complication No 03/20/25 13:18 [employer]GRAMMER [employer].HBARR Anesthesia Complication Comment: Post-operative progress note Anesthesia: Postop Eval II Evaluation Mental status: Awake Pain Level: 0 nausea: No Vomiting: No 03/20/25 1424 Date Josue Smyth Signature: Date CC: Signed Normal [facility] Operative Reporton 5 Operative Report [facility] Medical Records Department [address] [place] [address] Operative Report 03/20/25 1321 MR#: [id number] Acct: [id number] Name: JESSIKA CARRILLO Rep #: [id number] : 1950 74 From: Michael Gaines MD PCP: JUVENTINO Pérez Status:[facility] Location: [place] [address] Problems Associated Problem List Diagnoses (1) Colon cancer: Procedures Cardiovascular CF Procedures 33xxx-39xxx: [id number] Insert tunneled cv cath Operative Report (Standard) Operative Information Date of Procedure: 03/20/25 Pre-Operative Diagnosis: Colon cancer Post-Operative Diagnosis: Colon cancer Surgery/Procedure Performed: Left subclavian Mediport placement with C arm monkey keeper: No Type of Anesthesia: Local and MAC [...] Michael Gaines MD; JUVENTINO Pérez Signed Normal [facility] CBC (INCLUDES DIFF/PLT)on Basophils (Bld) [#/Vol] 0.055 10*3/uL Normal 0-200 [facility] Comment on above: Performed By: #### 7 600, 899, 23907, 6399, 51377 #### [facility] [address], [address] [place] [address] [employer]amite Mixer: Esteban Shen MD Basophils/100 WBC (Bld) 0.5 % Normal [facility] Comment on above: Performed By: #### 7 600, 899, 67084, 6399, 30900 #### [facility] [address], [address] [place] [address] [employer]amite Mixer: Esteban Shen MD Eosinophils (Bld) [#/Vol] 0.154 10*3/uL Normal 15-500 [facility] Comment on above: Performed By: #### 7 600, 899, 33781, 6399, 38180 #### [facility] [address], [address] [place] [address] [employer]amite Mixer: Esteban Shen MD Eosinophils/100 WBC (Bld) 1.4 % Normal [facility] Comment on above: Performed By: #### 7 600, 899, 34051, 6399, 72406 #### [facility] of [address], [address] [place] [address] [employer]am[employer] Mixer: Esteban Shen MD Erythrocyte distribution width (RBC) [Ratio] 14.0 % Normal 11.0-15.0 [facility] Comment on above: Performed By: #### 7 600, 899, 95169, 6399, 14033 #### [facility] of [address], [address] [place] [address] [employer]am[employer] Mixer: Esteban Shen MD Hematocrit (Bld) [Volume fraction] 42.3 % Normal 35.0-45.0 [facility] Comment on above: Performed By: #### 7 600, 899, 85252, 6399, 45273 #### [facility] of [address], [address] [place] [address] [employer]amite Mixer: Esteban Shen MD Hemoglobin (Bld) [Mass/Vol] 13.0 g/dL Normal 11.7-15.5 [facility] Comment on above: Performed By: #### 7 600, 899, 48265, 6399, 81229 #### [facility] of [place] [address] Foamite Mixer: Esteban Shen MD Lymphocytes (Bld) [#/Vol] 1.606 10*3/uL Normal 850-3900 [facility] Comment on above: Performed By: #### 7 600, 899, 12038, 6399, 12432 #### [facility] of [place] [address] Foamite Mixer: Esteban Shen MD Lymphocytes/100 WBC (Bld) 14.6 % Normal [facility] Comment on above: Performed By: #### 7 600, 899, 50348, 6399, 24466 #### [facility] of [address], [address] [place] [address] [employer]amite Mixer: Esteban Shen MD MCH (RBC) [Entitic mass] 29.7 pg Normal 27.0-33.0 [facility] Comment on above: Performed By: #### 7 600, 899, 35182, 6399, 97009 #### [facility] [place] [address] [employer]amite Mixer: Esteban Shen MD MCHC (RBC) [Mass/Vol] 30.7 [...] condition. Performed By: #### 7 600, 899, 57935, 6399, 55023 #### [facility] [place] [address] Foamite Mixer: Esteban Shen MD MCV (RBC) [Entitic vol] 96.6 fL Normal 80.0-100.0 [facility] Comment on above: Performed By: #### 7 600, 899, 64024, 6399, 06213 #### [facility] [place] [address] Foamite Mixer: Esteban Shen MD Monocytes (Bld) [#/Vol] 0.539 10*3/uL Normal 200-950 [facility] Comment on above: Performed By: #### 7 600, 899, 15328, 6399, 49919 #### [facility] [place] [address] Foamite Mixer: Esteban Shen MD Monocytes/100 WBC (Bld) 4.9 % Normal [facility] Comment on above: Performed By: #### 7 600, 899, 48803, 6399, 17934 #### [facility] [place] [address] Foamite Mixer: Esteban Shen MD Neutrophils (Bld) [#/Vol] 8.646 10*3/uL High 6173-4321 [facility] Comment on above: Performed By: #### 7 600, 899, 76210, 6399, 68904 #### [facility] of [place] [address] Foamite Mixer: Esteban Shen MD Neutrophils/100 WBC (Bld) 78.6 % Normal [facility] Comment on above: Performed By: #### 7 600, 899, 71847, 6399, 05747 #### [facility] of [place] [address] Foamite Mixer: Esteban Shen MD Platelet mean volume (Bld) [Entitic vol] 10.4 fL Normal 7.5-12.5 [facility] Comment on above: Performed By: #### 7 600, 899, 09559, 6399, 30081 #### [facility] of [place] [address] Foamite Mixer: Esteban Shen MD Platelets (Bld) [#/Vol] 357 10*3/uL Normal 140-400 [facility] Comment on above: Performed By: #### 7 600, 899, 32911, 6399, 74985 #### [facility] of [place] [address] Foamite Mixer: Esteban Shen MD RBC (Bld) [#/Vol] 4.38 10*6/uL Normal 3.80-5.10 [facility] Comment on above: Performed By: #### 7 600, 899, 82539, 6399, 40568 #### [facility] of [place] [address] Foamite Mixer: Esteban Shen MD WBC (Bld) [#/Vol] 11.0 10*3/uL High 3.8-10.8 [facility] Comment on above: Performed By: #### 7 600, 899, 99627, 6399, 80590 #### [facility] of [address] [place] [address] Foamite Mixer: Esteban Shen MD [facility] 03-18-2025 Albumin [Mass/Vol] 4.0 g/dL Normal 3.6-5.1 [facility] Comment on above: Performed By: #### 7 600, 899, 03812, 6399, 58912 #### [facility] of [place] [address] Foamite Mixer: Esteban Shen MD Albumin/Globulin [Mass ratio] 1.5 {ratio} Normal 1.0-2.5 [facility] Comment on above: Performed By: #### 7 600, 899, 94206, 6399, 47015 #### [facility] of [place] [address] Foamite Mixer: Esteban Shen MD ALP [Catalytic activity/Vol] 55 U/L Normal 37-153 [facility] Comment on above: Performed By: #### 7 600, 899, 82857, 6399, 84044 #### [facility] of [place] [address] Foamite Mixer: Esteban Shen MD ALT [Catalytic activity/Vol] 19 U/L Normal 6-29 [facility] Comment on above: Performed By: #### 7 600, 899, 23321, 6399, 97235 #### [facility] of [place] [address] Foamite Mixer: Esteban Shen MD AST [Catalytic activity/Vol] 18 U/L Normal 10-35 [facility] Comment on above: Performed By: #### 7 600, 899, 28398, 6399, 58618 #### [facility] of [place] [address] Foamite Mixer: Esetban Shen MD Bilirubin [Mass/Vol] 0.4 mg/dL Normal 0.2-1.2 [facility] Comment on above: Performed By: #### 7 600, 899, 92038, 6399, 09889 #### [facility] of [address], [address] [place] [address] Foamite Mixer: Esteban Shen MD BUN/CREATININE RATIO SEE NOTE: Normal 6-22 [facility] Comment on above: Result Comment: Not Reported: BUN and Creatinine are within reference range. Performed By: #### 7 600, 899, 51404, 6399, 09486 #### [facility] of [address], [address] [place] [address] Foamite Mixer: Esteban Shen MD Calcium [Mass/Vol] 9.3 mg/dL Normal 8.6-10.4 [facility] Comment on above: Performed By: #### 7 600, 899, 93040, 6399, 05949 #### [facility] of [place] [address] Foamite Mixer: Esteban Shen MD Chloride [Moles/Vol] 105 mmol/L Normal 98-110 [facility] Comment on above: Performed By: #### 7 600, 899, 69018, 6399, 63451 #### [facility] [place] [address] Foamite Mixer: Esteban Shen MD CO2 [Moles/Vol] 25 mmol/L Normal 20-32 [facility] Comment on above: Performed By: #### 7 600, 899, 47230, 6399, 65243 #### [facility] of [place] [address] Foamite Mixer: Esteban Shen MD Creatinine [Mass/Vol] 0.66 mg/dL Normal 0.60-1.[address] [facility] Comment on above: Performed By: #### 7 600, 899, 61894, 6399, 05114 #### [facility] of [place] [address] Foamite Mixer: Esteban Shen MD GFR/1.73 sq M.predicted among non-blacks MDRD (S/P/Bld) [Vol rate/Area] 91 mL/min/{1.73_m2} Normal > OR = 60 [facility] Comment on above: Performed By: #### 7 600, 899, 08563, 6399, 86711 #### [facility] [place] [address] Foamite Mixer: Esteban Shen MD Globulin (S) [Mass/Vol] 2.7 g/dL Normal 1.9-3.7 [facility] Comment on above: Performed By: #### 7 600, 899, 68466, 6399, 13257 #### [facility] of [place] [address] Foamite Mixer: Esteban Shen MD Glucose [Mass/Vol] 96 mg/dL Normal 65-99 [facility] Comment on above: Result Comment: Fasting reference interval Performed By: #### 7 600, 899, 46779, 6399, 24433 #### [facility] [place] [address] Foamite Mixer: Esteban Shen MD Potassium [Moles/Vol] 4.4 mmol/L Normal 3.5-5.3 [facility] Comment on above: Performed By: #### 7 600, 899, 87499, 6399, 14401 #### [facility] [place] [address] Foamite Mixer: Esteban Shen MD Protein [Mass/Vol] 6.7 g/dL Normal 6.1-8.1 [facility] Comment on above: Performed By: #### 7 600, 899, 72663, 6399, 09499 #### [facility] of [place] [address] Foamite Mixer: Esteban Shen MD Sodium [Moles/Vol] 140 mmol/L Normal 135-146 [facility] Comment on above: Performed By: #### 7 600, 899, 62473, 6399, 66688 #### [facility] of [place] [address] Foamite Mixer: Esteban Shen MD Urea nitrogen [Mass/Vol] 21 mg/dL Normal 7-25 [facility] Comment on above: Performed By: #### 7 600, 899, 08312, 6399, 24574 #### [facility] [place] [address] Foamite Mixer: Esteban Shen MD LIPID PANEL, [address] Cholesterol [Mass/Vol] 190 mg/dL Normal <200 [facility] Comment on above: Performed By: #### 7 600, 899, 06211, 6399, 50659 #### [facility] [address], [address] [place] [address] Foamite Mixer: Esteban Shen MD Cholesterol in HDL [Mass/Vol] 66 mg/dL Normal > OR = 50 [facility] Comment on above: Performed By: #### 7 600, 899, 43496, 6399, 70326 #### [facility] [place] [address] Foamite Mixer: Esteban Shen MD Cholesterol in LDL [Mass/Vol] [...] LDL-C. Rohan HO et al. NIEVES. 2013;310(19): 5388-7284 (http://education.[employer] Network/faq/YHV030) Performed By: #### 7 600, 899, 06040, 6399, 63223 #### [facility] [address], [address] [place] [address] Foamite Mixer: Esteban Shen MD Cholesterol.total/Chol esterol in HDL [Mass ratio] 2.9 {ratio} Normal <5.0 [facility] Comment on above: Performed By: #### 7 600, 899, 68284, 6399, 46029 #### [facility] [place] [address] Foamite Mixer: Esteban Shen MD NON HDL CHOLESTEROL 124 mg/dL (calc) Normal <130 [facility] Comment on above: Result Comment: For patients with diabetes plus 1 major ASCVD risk factor, treating to a non-HDL-C goal of <100 mg/dL (LDL-C of <70 mg/dL) is considered a therapeutic option. Performed By: #### 7 600, 899, 07790, 6399, 36796 #### [facility] [place] [address] Foamite Mixer: Esteban Shen MD Triglyceride [Mass/Vol] 116 mg/dL Normal <150 [facility] Comment on above: Performed By: #### 7 600, 899, 43024, 6399, 59966 #### [facility] [place] [address] Foamite Mixer: Esteban Shen MD T4, FREEon 03-18-2025 Free T4 [Mass/Vol] 1.0 ng/dL Normal 0.8-1.8 [facility] Comment on above: Performed By: #### 7 600, 899, 10478, 6399, 19593 #### [facility] [place] [address] Foamite Mixer: Esteban Shen MD TSHon 03-18-2025 TSH Qn 2.46 m[IU]/L Normal 0.40-4.50 [facility] Comment on above: Performed By: #### 1 0231, 7600, 66336, 899, 1005, 866 #### [facility] [place] [address] Foamite Mixer: Esteban Shen MD VITAMIN D,25-OH,TOTAL,IAon 0 03-18-2025 [...] D, (D2,D3), LC/MS/MS is recommended: order code 99234 (patients >2yrs). See Note 1 Note 1 For additional information, please refer to http://education.[employer]iv[employer] Wellness.[employer] Network/faq/QYP000 (This link is being provided for informational/ educational purposes only.) Performed By: #### 1 0231, 7600, 30829, 899, 1005, 866 #### [facility] [place] [address] [facility], [address] [place] [address] Foamite Mixer: Esteban Shen MD Laboratory - Chemistry and C hemistry - challengeon 03-17-2025 Albumin [Mass/Vol] 4.0 g/dL Normal 3.6 - 5.1 g/dL [facility], [facility].; [place] [employer] Albumin/Globulin [Mass ratio] 1.5 {ratio} Normal 1.0 - 2.5 [facility], [facility].; [place] [employer] ALP [Catalytic activity/Vol] 55 U/L Normal 37 - 153 U/L [facility], [facility].; [place] [employer] [facility] ALT [Catalytic activity/Vol] 19 U/L Normal 6 - 29 U/L [facility], [facility].; [place] [employer] AST [Catalytic activity/Vol] 18 U/L Normal 10 - 35 U/L [facility], [facility].; [place] [employer] Bilirubin [Mass/Vol] 0.4 mg/dL Normal 0.2 - 1 .2 mg/dL [place] [employer] [facility], [facility].; [place] [employer] Calcium [Mass/Vol] 9.3 mg/dL Normal 8.6 - 10. 4 mg/dL [place] [employer] [facility], [facility].; [place] [employer] Chloride [Moles/Vol] 105 mmol/L Normal 98 - 11 0 mmol/L [facility], [facility].; [employer] Cholesterol [Mass/Vol] 190 mg/dL Normal [facility] [place] [employer] [facility]. Cholesterol in HDL [Mass/Vol] 66 mg/dL Normal [facility]. Cholesterol in LDL [Mass/Vol] 103 mg/dL Abnormal [facility].; [place] [employer] [facility], [facility]. CO2 [Moles/Vol] 25 mmol/L Normal 20 - 32 mmol/L [facility].; [place] [employer] [facility], [facility]. Creatinine [Mass/Vol] 0.66 mg/dL Normal 0.60 - 1.00 mg/dL [facility].; [place] [employer], [facility]. Free T4 [Mass/Vol] 1.0 ng/dL Normal 0.8 - 1.8 ng/dL [facility].; [place] [employer] [facility]. GFR/1.73 sq M.predicted among non-blacks MDRD (S/P/Bld) [Vol rate/Area] 91 mL/min/{1.73_m2} Normal [facility].; [place] [employer] [facility], [facility]. Glucose [Mass/Vol] 96 mg/dL Normal 65 - 99 mg/dL [facility].; [place] [employer], [facility]. Potassium [Moles/Vol] 4.4 mmol/L Normal 3.5 - 5.3 mmol/L [facility].; [place] [employer] [facility], [employer]. Protein [Mass/Vol] 6.7 g/dL Normal 6.1 - 8.1 g/dL [facility], [facility].; [place] [employer], [employer]. Sodium [Moles/Vol] 140 mmol/L Normal 135 - 146 mmol/L [facility].; [place] [employer], [employer]. Triglyceride [Mass/Vol] 116 mg/dL Normal [place] [employer] [facility].; [place] [employer], [employer]. TSH Qn 2.46 m[IU]/L Normal 0.40 - 4.50 {mIU/L} [place] [employer] [facility].; [place] [employer], [employer]. Urea nitrogen [Mass/Vol] 21 mg/dL Normal 7 - 25 mg/dL [facility].; [employer] Laboratory - Hematology and Cell countson 03-17-2025 Basophils (Bld) [#/Vol] 0.055 10*3/uL Normal 0 - 200 {cells/uL} [facility].; [facility]. Basophils/100 WBC (Bld) 0.5 % Normal [facility].; [facility], [facility]. Eosinophils (Bld) [#/Vol] 0.154 10*3/uL Normal 15 - 500 {cells/uL} [facility], [facility].; [facility], [facility]. Eosinophils/100 WBC (Bld) 1.4 % Normal [facility], [facility] Erythrocyte distribution width (RBC) [Ratio] 14.0 % Normal 11.0 - 15.0 % [facility], [facility]. Hematocrit (Bld) [Volume fraction] 42.3 % Normal 35.0 - 45.0 % [facility], [facility].; [facility], [facility] Hemoglobin (Bld) [Mass/Vol] 13.0 g/dL Normal 11.7 - 15.5 g/dL [facility], [facility]. Lymphocytes (Bld) [#/Vol] 1.606 10*3/uL Normal 850 - 3900 {cells/uL} [facility], [facility]. Lymphocytes/100 WBC (Bld) 14.6 % Normal [facility].; [place] [facility], [facility]. MCH (RBC) [Entitic mass] 29.7 pg Normal 27.0 - 33.0 pg [facility].; [place] [facility], [facility]. MCHC (RBC) [Mass/Vol] 30.7 g/dL Abnormal 32.0 - 36.0 g/dL [facility].; [place] [employer] [facility], [facility]. MCV (RBC) [Entitic vol] 96.6 fL Normal 80.0 - 100.0 fL [facility].; [place] [employer] [facility], [facility]. Monocytes (Bld) [#/Vol] 0.539 10*3/uL Normal 200 - 950 {cells/uL} [facility], [facility].; [place] [facility], [facility]. Monocytes/100 WBC (Bld) 4.9 % Normal [facility].; [place] [employer] [facility]. Neutrophils (Bld) [#/Vol] 8.646 10*3/uL Abnormal 1500 - 7800 {cells/uL} [place] [employer] [facility] [employer]. Neutrophils/100 WBC (Bld) 78.6 % Normal [place] [employer] Platelet mean volume (Bld) [Entitic vol] 10.4 fL Normal 7.5 - 12.5 fL [place] [employer] [facility] [employer]. Platelets (Bld) [#/Vol] 357 10*3/uL Normal 140 - 400 [place] [employer] RBC (Bld) [#/Vol] 4.38 10*6/uL Normal 3.80 - 5.10 {Million/u L} [place] [employer].; [employer] WBC (Bld) [#/Vol] 11.0 10*3/uL Abnormal 3.8 - 10.8 [facility] [employer] [facility] [employer]. No Panel Informationon 03-17 BUN/CREATININE RATIO SEE NOTE: Normal 6 - 22 [facility] [employer] [facility] [employer] CHOL/HDLC RATIO 2.9 Normal [place] [employer]. GLOBULIN 2.7 Normal 1.9 - 3.7 [place] [employer] [facility] [employer]. NON HDL CHOLESTEROL 124 Normal [facility] [employer] [facility] [employer]. VITAMIN D,25-OH,TOTAL,IA 26 ng/mL Abnormal 30 - 100 ng/mL [place] [employer] 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 Boles at [place] with 2 sessile polypoid lesions were found, [...] left kidney. Patient was then referred to [facility] for further management. December 31, 2024 [...] January 23, 2025 robotic right hemicolectomy at [facility] by Dr. Antonio. Pathology: Right colon [...] January 23, 2025 robotic right hemicolectomy at [facility]. Interval History The patient is presenting to clinic accompanied by adult daughter, Don for an education visit. No diarrhea, has not identified any aggravating foods. Reports active lifestyle and good support system by way of daughters. [facility], [facility] Medical History (Updated 03/15/25 @ 08:16 by Alyssa Lycnh NP, PULL OVER MACHINE OPERATOR-C) Encounter for education Lung nodules Regional lymph [...] Access Minal (more content not included)... Normal [facility] Surgery Visit Reporton 03-15 Surgery Visit Report [facility] [address] [place] [address] OFFICE VISIT Date of Service: 03/15/25 MR#: [id number] Acct: [id number] Name: JESSIKA CARRILLO Rep #: [id number] : 1950 Provider: Dr. Michael pagan MD Age/Sex: 74/F Location: [facility] Status: Signed Intake Vital Signs 03/09/25 09:22 [...] healthy appearing, comfortable and no acute distress HENSD Head: normal to inspection Eyes General: appearance [...] Level o (more content not included)... Normal [facility] Carcinoembryonic Antigenon 0 03-10-2025 CEA 6.3 ng/mL High 0.0-4.7 [facility] Comment on above: Result Comment: Nons mokers <3.9 Smokers <5.6 [facility] [employer] Electrochemiluminescence Immunoassay (ECLIA) Values obtained with different assay methods or kits cannot be used interchangeably. Results cannot be interpreted as absolute evidence of the presence or absence of malignant disease. Performed at: [address] [id number] Community Outreach Worker: Abimael Sheridan PhD, Phone: [phone] Performed By: #### L 100.9634, Z631.1220, X1141.7708 ####[facility] [address] [place], [address] Absolute lymphocyte countOrd ered By: [place] on 03-09-2025 Lymphocytes Auto (Unsp spec) [#/Vol] 1.75 10*3/uL 0.83-4.51 [facility] Absolute neutrophil countOrd ered By: [place] on 03-09-2025 Neutrophils (Bld) [#/Vol] 5.1 10*3/uL 2.0-7.7 [facility] Anion gap in Serum or Plasma Ordered By: [place] on 03-09-2025 Anion gap [Moles/Vol] 11 mmol/L 5-15 [facility] Automated lymphocyte count a s percentage of total leukocytesOrdered By: [place] on 03-09-2025 Lymphocytes/100 WBC Auto (Unsp spec) 22.7 % 19-41 [facility] BUN/creatinine ratioOrdered By: [facility]ia on 03-09-2025 Urea nitrogen/Creatinine [Mass ratio] 20.1 mg/mg High 10-20 [facility] Basophil percentageOrdered B y: [place] on 03-09-2025 Basophils/100 WBC (Bld) 1.2 % High 0-1 [facility] Bilirubin, totalOrdered By: [facility] [place] on 03-09-2025 Bilirubin [Mass/Vol] 0.41 mg/dL 0.00-1.30 [facility] CBC W/Diff, Automatedon Absolute Lymph 1.75 X10 3/uL Normal 0.83-4.51 [facility] Comment on above: Performed By: #### L 100.0100, L500.4050, L3100.2300 ####[facility] [address] [place], [address] Absolute Neut 5.1 X10 3/uL Normal 2.0-7.7 [facility] Comment on above: Performed By: #### L 100.0100, L500.4050, L3100.2300 ####[facility] [address] [place], [address] Basophils/100 WBC (Bld) 1.2 % High 0-1 [facility] Comment on above: Performed By: #### L 100.0100, L500.4050, L3100.2300 ####[facility] [address] [place], [address] Eosinophils/100 WBC (Bld) 2.5 % Normal 0-5 [facility] Comment on above: Performed By: #### L 100.0100, L500.4050, L3100.2300 ####[facility] [address] [place], [address] Erythrocyte distribution width (RBC) [Ratio] 12.9 % Normal 11.6-14.6 [facility] Comment on above: Performed By: #### L 100.0100, L500.4050, L3100.2300 ####[facility] [address] [place], [address] Hematocrit (Bld) [Volume fraction] 41.3 % Normal 37-47 [facility] Comment on above: Performed By: #### L 100.0100, L500.4050, L3100.2300 ####[facility] [address] [place], [address] Hemoglobin (Bld) [Mass/Vol] 13.9 g/dL Normal 12.0-15.0 [facility] Comment on above: Performed By: #### L 100.0100, L500.4050, L3100.2300 ####[facility] [address] [place], [address] IG% 0.400 Normal 0.0-0.9 [facility] Comment on above: Result Comment: IG% - Immature Granulocytes (promyelocytes, myelocytes and metamyelocytes) > 1% indicates that a LEFT SHIFT is Present. Performed By: #### L 100.0100, L500.4050, L3100.2300 ####[facility] [address] [place], [address] Lymphocytes/100 WBC (Bld) 22.7 % Normal 19-41 [facility] Comment on above: Performed By: #### L 100.0100, L500.4050, L3100.2300 ####[facility] [address] [place], [address] MCH (RBC) [Entitic mass] 30.4 pg Normal 27.0-32.0 [facility] Comment on above: Performed By: #### L 100.0100, L500.4050, L3100.2300 ####[facility] [address] [place], [address] MCHC (RBC) [Mass/Vol] 33.7 g/dL Normal 32-36 [facility] Comment on above: Performed By: #### L 100.0100, L500.4050, L3100.2300 ####[facility] [address] [place], [address] MCV (RBC) [Entitic vol] 90.4 fL Normal 81-99 [facility] Comment on above: Performed By: #### L 100.0100, L500.4050, L3100.2300 ####[facility] [address] [place], [address] Monocytes/100 WBC (Bld) 6.7 % Normal 0-10 [facility] Comment on above: Performed By: #### L 100.0100, L500.4050, L3100.2300 ####[facility] [address] [place], [address] Neutrophils/100 WBC (Bld) 66.5 % Normal 47-70 [facility] Comment on above: Performed By: #### L 100.0100, L500.4050, L3100.2300 ####[facility] [address] [place], [address] Nucleated RBC (Bld) [#/Vol] 0 10*3/uL Normal 0-5 [facility] Comment on above: Performed By: #### L 100.0100, L500.4050, L3100.2300 ####[facility] [address] [place], [address] Platelet mean volume (Bld) [Entitic vol] 8.8 fL Normal 6.2-12.0 [facility] Comment on above: Performed By: #### L 100.0100, L500.4050, L3100.2300 ####[facility] [address] [place], [address] Platelets (Bld) [#/Vol] 382 10*3/uL Normal 150-450 [facility] Comment on above: Performed By: #### L 100.0100, L500.4050, L3100.2300 ####[facility] [address] [place], [address] RBC (Bld) [#/Vol] 4.57 10*6/uL Normal 4.2-5.4 [facility] Comment on above: Performed By: #### L 100.0100, L500.4050, L3100.2300 ####[facility] [address] [place], [address] RDW SD 42.3 fl Normal 35.1-43.9 [facility] Comment on above: Performed By: #### L 100.0100, L500.4050, L3100.2300 ####[facility] [address] [place], [address] WBC (Bld) [#/Vol] 7.7 10*3/uL Normal 4.4-11.0 [facility] Comment on above: Performed By: #### L 100.0100, L500.4050, L3100.2300 ####[facility] [address] [place], [address] Carbon dioxide, total [Moles /volume] in Central venous bloodOrdered By: [place] on 03-09-2025 CO2 [Moles/Vol] 25.5 mmol/L 21.0-32.0 [facility] Chloride assayOrdered By: Ru [place] on 03-09-2025 Chloride [Moles/Vol] 102 mmol/L 98-108 [facility] Comprehensive Metabolic Prof ilon 03-09-2025 Albumin [Mass/Vol] 4.1 g/dL Normal 3.4-4.8 [facility] Comment on above: Performed By: #### L 100.0100, L500.4050, L3100.2300 ####[facility] [address] [place], [address] Albumin/Globulin [Mass ratio] 1.3 {ratio} Normal 0.9-2.4 [facility] Comment on above: Performed By: #### L 100.0100, L500.4050, L3100.2300 ####[facility] [address] [place], [address] ALK PHOS 73 U/L Normal 35-104 [facility] Comment on above: Performed By: #### L 100.0100, L500.4050, L3100.2300 ####[facility] [address] [place], [address] ALT [Catalytic activity/Vol] 26 U/L Normal <=34 [facility] Comment on above: Performed By: #### L 100.0100, L500.4050, L3100.2300 ####[facility] [address] [place], [address] AST [Catalytic activity/Vol] 34 U/L High <=31 [facility] Comment on above: Performed By: #### L 100.0100, L500.4050, L3100.2300 ####[facility] [address] [place], [address] Bilirubin [Mass/Vol] 0.41 mg/dL Normal 0.00-1.30 [facility] Comment on above: Performed By: #### L 100.0100, L500.4050, L3100.2300 ####[facility] [address] [place], [address] BUN/CRE 20.1 RATIO High 10-20 [facility] Comment on above: Performed By: #### L 100.0100, L500.4050, L3100.2300 ####[facility] [address] [place], [address] Calcium [Mass/Vol] 9.8 mg/dL Normal 7.6-11.0 [facility] Comment on above: Performed By: #### L 100.0100, L500.4050, L3100.2300 ####[facility] [address] [place], [address] Chloride [Moles/Vol] 102 mmol/L Normal 98-108 [facility] Comment on above: Performed By: #### L 100.0100, L500.4050, L3100.2300 ####[facility] [address] [place], [address] CO2 [Moles/Vol] 25.5 mmol/L Normal 21.0-32.0 [facility] Comment on above: Performed By: #### L 100.0100, L500.4050, L3100.2300 ####[facility] [address] [place], [address] Creatinine [Mass/Vol] 0.74 mg/dL Normal 0.70-1.20 [facility] Comment on above: Performed By: #### L 100.0100, L500.4050, L3100.2300 ####[facility] [address] [place], [address] GAP 11 Normal 5-15 [facility] Comment on above: Performed By: #### L 100.0100, L500.4050, L3100.2300 ####[facility] [address] [place], [address] GFR/1.73 sq M.predicted among non-blacks MDRD (S/P/Bld) [Vol rate/Area] 84 mL/min/{1.73_m2} Normal >60 [facility] Comment on above: Result Comment: mL/m in/1.73m2 CKD-EPI Creatinine Equation (2020) Performed By: #### L 100.0100, L500.4050, L3100.2300 ####[facility] [address] [place], [address] Globulin (S) [Mass/Vol] 3.3 g/dL Normal 2.2-4.2 [facility] Comment on above: Performed By: #### L 100.0100, L500.4050, L3100.2300 ####[facility] [address] [place], [address] Glucose [Mass/Vol] 101 mg/dL High 70-99 [facility] Comment on above: Performed By: #### L 100.0100, L500.4050, L3100.2300 ####[facility] [address] [place], [address] Potassium [Moles/Vol] 4.2 mmol/L Normal 3.3-5.1 [facility] Comment on above: Performed By: #### L 100.0100, L500.4050, L3100.2300 ####[facility] [address] [place], [address] Sodium [Moles/Vol] 139 mmol/L Normal 133-145 [facility] Comment on above: Performed By: #### L 100.0100, L500.4050, L3100.2300 ####[facility] [address] [place], [address] T PROT 7.4 g/dL Normal 5.9-8.4 [facility] Comment on above: Performed By: #### L 100.0100, L500.4050, L3100.2300 ####[facility] [address] [place], [address] Urea nitrogen [Mass/Vol] 15 mg/dL Normal 4-19 [facility] Comment on above: Performed By: #### L 100.0100, L500.4050, L3100.2300 ####[facility] [address] [place], [address] Eosinophil percentageOrdered By: [place] on 03-09-2025 Eosinophils/100 WBC (Bld) 2.5 % 0-5 [facility] Erythrocyte distribution wid th ratioOrdered By: [facility] [place] on 03-09-2025 Erythrocyte distribution width (RBC) [Ratio] 12.9 % 11.6-14.6 [facility] Erythrocyte distribution wid th standard deviationOrdered By: [place] on 03-09-2025 Erythrocyte distribution width (RBC) [Ratio] 42.3 fl 35.1-43.9 [facility] Glomerular filtration rate ( GFR) estimation/1.73 sq m using serum, plasma, or whole bOrdered By: [facility] Conn on 03-09-2025 GFR/1.73 sq M.predicted among non-blacks MDRD (S/P/Bld) [Vol rate/Area] 84 mL/min/{1.73_m2} >60 [facility] Comment on above: mL/min/1.73m2 CKD-EP I Creatinine Equation (2020) Hematocrit Auto (Bld) [Volum e fraction]Ordered By: [facility] Conn on 03-09-2025 Hematocrit (Bld) [Volume fraction] 41.3 % 37-47 [facility] Hemoglobin measurementOrdere d By: [place] on 03-09-2025 Hemoglobin (Bld) [Mass/Vol] 13.9 g/dL 12.0-15.0 [facility] Immature granulocytes/100 WB C Auto (Bld)Ordered By: [place] on 03-09-2025 Immature granulocytes/100 WBC (Bld) 0.400 % 0.0-0.9 [facility] Comment on above: IG% - Immature Granu locytes (promyelocytes, myelocytes and metamyelocytes) > 1% indicates that a LEFT SHIFT is Present. Laboratory - Chemistry and C hemistry - challengeOrdered By: [place] on 03-09-2025 AST [Catalytic activity/Vol] 34 U/L High <32 [facility] MCV (mean corpuscular volume ) determinationOrdered By: [place] on 03-09-2025 MCV (RBC) [Entitic vol] 90.4 fL 81-99 [facility] Mean corpuscular hemoglobin (MCH) determinationOrdered By: [place] on 03-09-2025 MCH (RBC) [Entitic mass] 30.4 pg 27.0-32.0 [facility] Mean corpuscular hemoglobin concentration (MCHC) determinationOrdered By: [place] on 03-09-2025 MCHC (RBC) [Mass/Vol] 33.7 g/dL 32-36 [facility] Mean platelet volume determi nationOrdered By: [place] on 03-09-2025 Platelet mean volume (Bld) [Entitic vol] 8.8 fL 6.2-12.0 [facility] Monocyte percentageOrdered B y: [place] on 03-09-2025 Monocytes/100 WBC (Bld) 6.7 % 0-10 [facility] Neutrophil percentageOrdered By: [place] on 03-09-2025 Neutrophils/100 WBC (Bld) 66.5 % 47-70 [facility] Nucleated red blood cell per centageOrdered By: [place] on 03-09-2025 Nucleated RBC/100 WBC (Bld) [Ratio] 0 % 0-5 [facility] Oncology Visit Reporton Oncology Visit Report [facility] [place] [facility] [address] [place] [address] OFFICE VISIT Date of Service: 03/09/2515 MR#: [id number] Acct: [id number] Name: JESSKIA CARRILLO Perry Rep #: [id number] : 1950 From: [place] MD Age/Sex: 74/F Location: [facility] [place] Status: Signed HPI Subjective Date of Service 03/09/25 Chief Complaint Colon cancer History of Present Illness 74-year-old female with no family of colon cancer had screening colonoscopy August 17, [address] Boles at [place] with 2 sessile polypoid lesions were found, [...] left kidney. Patient was then referred to [facility] for further management. December 31, 2024 [...] January 23, 2025 robotic right hemicolectomy at [facility] by Dr. Antonio. Pathology: Right colon [...] January 23, 2025 robotic right hemicolectomy at [facility]. [facility] Medical History (Updated 03/09/25 @ 10:09 by [...] as documen (more content not included)... Normal [facility] Platelet countOrdered By: Ru [place] on 03-09-2025 Platelets (Bld) [#/Vol] 382 10*3/uL 150-450 [facility] Potassium measurement (mass/ volume)Ordered By: [place] on 03-09-2025 Potassium (Unsp spec) [Mass/Vol] 4.2 mmol/L 3.3-5.1 [facility] RBC Auto (Bld) [#/Vol]Ordere d By: [place] on 03-09-2025 RBC (Bld) [#/Vol] 4.57 10*6/uL 4.2-5.4 [facility] Serum creatinine measurement (mass/volume)Ordered By: [place] on 03-09-2025 Creatinine [Mass/Vol] 0.74 mg/dL 0.70-1.20 [facility] Serum globulin measurementOr dered By: [place] on 03-09-2025 Globulin (S) [Mass/Vol] 3.3 g/dL 2.2-4.2 [facility] Serum glucose measurement (m ass/volume)Ordered By: [place] on 03-09-2025 Glucose [Mass/Vol] 101 mg/dL High 70-99 [facility] Serum or plasma alanine rojo otransferase (ALT) measurementOrdered By: [place] on 03-09-2025 ALT [Catalytic activity/Vol] 26 U/L <35 [facility] Serum or plasma albumin alfredo urement (mass/volume)Ordered By: [place] on 03-09-2025 Albumin [Mass/Vol] 4.1 g/dL 3.4-4.8 [facility] Serum or plasma albumin/glob ulin mass ratioOrdered By: [place] on 03-09-2025 Albumin/Globulin [Mass ratio] 1.3 {ratio} 0.9-2.4 [facility] Serum or plasma alkaline marisabel sphatase measurementOrdered By: [place] on 03-09-2025 ALP [Catalytic activity/Vol] 73 U/L 35-104 [facility] Serum or plasma calcium alfredo urement (mass/volume)Ordered By: [place] on 03-09-2025 Calcium [Mass/Vol] 9.8 mg/dL 7.6-11.0 [facility] Serum or plasma carcinoembry onic antigen measurement (mass/volume)Ordered By: [place] on 03-09-2025 Carcinoembryonic Ag [Mass/Vol] 6.3 ng/mL High 0.0-4.7 [facility] Comment on above: Nonsmokers <3.9 Smok ers <5.6[employer] Electrochemiluminescence Immunoassay(ECLIA)Values obtained with different assay methods or kitscannot be used interchangeably. Results cannot beinterpreted as absolute evidence of the presence orabsence of malignant disease.Performed at: [facility] [place], [place] [id number] Director: Abimael Sheridan PhD, Phone: [phone] Serum or plasma urea nitroge n measurement (mass/volume)Ordered By: [place] on 03-09-2025 Urea nitrogen [Mass/Vol] 15 mg/dL 4-19 [facility] Sodium levelOrdered By: Kurt mejia Senia on 03-09-2025 Sodium [Moles/Vol] 139 mmol/L 133-145 [facility] Total proteinOrdered By: Shady burroughs [place] on 03-09-2025 Protein [Mass/Vol] 7.4 g/dL 5.9-8.4 [facility] White blood cell (WBC) count Ordered By: [place] on 03-09-2025 WBC (Bld) [#/Vol] 7.7 10*3/uL 4.4-11.0 [facility] CBC,PLATELETSon 01-28-2025 Erythrocyte distribution width (RBC) [Ratio] 13.1 % 10.8 - 14.9 % [facility] Hematocrit (Bld) [Volume fraction] 36.4 % 34.9 - 44.3 % [facility] Hemoglobin (Bld) [Mass/Vol] 12.1 g/dL 11.4 - 15.2 g/dL [facility] Interpretation and review of laboratory results Abnormal [facility] MCH (RBC) [Entitic mass] 30.3 pg 25.9 - 33.9 pg [facility] MCHC (RBC) [Mass/Vol] 33.2 g/dL 31.4 - 35.9 g/dL [facility] MCV (RBC) [Entitic vol] 91 fL 79.6 - 97.7 fL [facility] Platelet mean volume (Bld) [Entitic vol] 8.8 fL 8.5 - 12.2 fL [facility] Platelets (Bld) [#/Vol] 377 10*3/uL 150 - 393 K/uL [facility] RBC (Bld) [#/Vol] 4 10*6/uL [facility] WBC (Bld) [#/Vol] 11.33 10*3/uL High 3.99 - 11.19 K/uL [facility] [facility] Hematocrit (Bld) [Volume fraction] 36.4 % Normal 34.9-44.3 [facility] Comment on above: Performed By: #### H EMOGC #### [facility] (DEFAULT) [address] [address] Hemoglobin (Bld) [Mass/Vol] 12.1 g/dL Normal 11.4-15.2 [facility] Comment on above: Performed By: #### H EMOGC #### [facility] (DEFAULT) [address] [address] MCV (RBC) [Entitic vol] 91.0 fL Normal 79.6-97.7 [facility] Comment on above: Performed By: #### H EMOGC #### [facility] (DEFAULT) [address] [address] Mean Cell Hgb 30.3 pg Normal 25.9-33.9 [facility] Comment on above: Performed By: #### H EMOGC #### [facility] (DEFAULT) [address] [address] Mean Cell Hgb Conc 33.2 g/dL Normal 31.4-35.9 [facility] Comment on above: Performed By: #### H EMOGC #### [facility] (DEFAULT) [address] [address] Platelet mean volume (Bld) [Entitic vol] 8.8 fL Normal 8.5-12.2 [facility] Comment on above: Performed By: #### H EMOGC #### [facility] (DEFAULT) [address] [address] Platelets (Bld) [#/Vol] 377 10*3/uL Normal 150-393 [facility] Comment on above: Performed By: #### H EMOGC #### [facility] (DEFAULT) [address] [place] [address] RBC (Bld) [#/Vol] 4.00 10*6/uL Normal 3.91-5.04 [facility] Comment on above: Performed By: #### [facility] #### [facility] (DEFAULT) [address] [place] [address] RBC Distribution 13.1 % Normal 10.8-14.9 [facility] Comment on above: Performed By: #### [facility] #### [facility] (DEFAULT) [address] [place] [address] WBC (Bld) [#/Vol] 11.33 10*3/uL High 3.99-11.19 [facility] Comment on above: Performed By: #### [facility] #### [facility] (DEFAULT) [address] [place] [address] CHEM 7 (LYTES,BUN,CREA,GLUC) on 01-28-2025 Anion gap [Moles/Vol] 11 mmol/L 7 - 17 mmol/L [facility] Chloride [Moles/Vol] 104 mmol/L 98 - 10 8 mmol/L [facility] CO2 [Moles/Vol] 25 mmol/L 21 - 31 mmol/L [facility] Creatinine [Mass/Vol] 0.66 mg/dL 0.50 - 1.20 mg/dL [facility] eGFR, CKD-EPI, Female - PINF [facility] Comment on above: Reported eGFR is bas ed on the CKD-EPI 2020 equation using creatinine, age, and sex. Glucose [Mass/Vol] 98 mg/dL 70 - 179 mg/dL [facility] Osmolality Calc [Osmolality] 285 [facility] Potassium [Moles/Vol] 4.2 mmol/L 3.5 - 5.0 mmol/L [facility] Sodium [Moles/Vol] 136 mmol/L 135 - 145 mmol/L [facility] Urea nitrogen [Mass/Vol] 10 mg/dL 7 - 25 mg/dL [facility] Urea nitrogen/Creatinine [Mass ratio] 15 mg/mg [facility] Anion gap [Moles/Vol] 11 mmol/L Normal 7-17 [facility] Comment on above: Performed By: #### MILAGRO HUNT, CHM7 #### [facility] (DEFAULT) [address] [place] [address] Chloride [Moles/Vol] 104 mmol/L Normal 98-108 [facility] Comment on above: Performed By: #### MILAGRO HUNT, CHM7 #### [facility] (DEFAULT) [address] [place] [address] CO2 [Moles/Vol] 25 mmol/L Normal 21-31 [facility] Comment on above: Performed By: #### MILAGRO HUNT, CHM7 #### [facility] (DEFAULT) [address] [place] [address] Creatinine [Mass/Vol] 0.66 mg/dL Normal 0.50-1.20 [facility] Comment on above: Performed By: #### MILAGRO HUNT, CHM7 #### [facility] (DEFAULT) [address] [place] [address] eGFR, CKD-EPI, Female > Normal >=60 [facility] Comment on above: Result Comment: Repo rted eGFR is based on the CKD-EPI 2020 equation using creatinine, age, and sex. Performed By: #### MILAGRO HUNT, CHM7 #### [facility] (DEFAULT) [address] [place] [address] Glucose [Mass/Vol] 98 mg/dL Normal Nonfastin g : 70-179 mg/dL; Fastin-99 [facility] Comment on above: Performed By: #### MILAGRO HUNT, CHM7 #### [facility] (DEFAULT) [address] [place] [address] Osmolality [Osmolality] 285 mosm/kg Normal 278-305 [facility] Comment on above: Performed By: #### MILAGRO HUNT, CHM7 #### [facility] (DEFAULT) [address] [place] [address] Potassium [Moles/Vol] 4.2 mmol/L Normal 3.5-5.0 [facility] Comment on above: Performed By: #### MILAGRO HUNT, CHM7 #### [facility] (DEFAULT) [address] [place] [address] Sodium [Moles/Vol] 136 mmol/L Normal 135-145 [facility] Comment on above: Performed By: #### MILAGRO HUNT CHM7 #### [facility] (DEFAULT) [address] [place] [address] Urea nitrogen [Mass/Vol] 10 mg/dL Normal 7-25 [facility] Comment on above: Performed By: #### MILAGRO HUNT CHM7 #### [facility] (DEFAULT) [address] [place] [address] Urea nitrogen/Creatinine [Mass ratio] 15 mg/mg Normal [facility] Comment on above: Performed By: #### MILAGRO HUNT, CHM7 #### [facility] (DEFAULT) [address] [place] [address] MAGNESIUMon 01-28-2025 Magnesium [Mass/Vol] 1.8 mg/dL 1.6 - 2 .6 mg/dL [facility] Magnesium [Mass/Vol] 1.8 mg/dL Normal 1.6-2.6 [facility] Comment on above: Performed By: #### MILAGRO HUNT, CHM7 #### [facility] (DEFAULT) [address] [place] [address] No Panel Informationon 01-28 Interpretation and review of laboratory results Normal [facility] PHOSPHATE, INORGANICon 01-28 Phosphate [Mass/Vol] 3.2 mg/dL 2.2 - 4 .6 mg/dL [facility] Phosphorous 3.2 mg/dL Normal 2.2-4.6 [facility] Comment on above: Performed By: #### M POORNIMA, MILAGRO, CHM7 #### [facility] (DEFAULT) [address] [place] [address] XR ABDOMEN 1 VIEW PORTABLEon 01-28-2025 XR [...] postoperative ileus versus less likely obstruction. Normal [facility] XR Abdomen Single viewon IMPRESSION: Worsening [...] probable postoperative ileus versus less likely obstruction. [facility] Radiology Study observation (narrative) [facility] XR Abdomen Single viewOrdere d By: Katia Palencia on 01-28-2025 [facility] Work Phone: CBC,PLATELETSon 01-27-2025 Erythrocyte distribution width (RBC) [Ratio] 13.2 % 10.8 - 14.9 % [facility] Hematocrit (Bld) [Volume fraction] 37.2 % 34.9 - 44.3 % [facility] Hemoglobin (Bld) [Mass/Vol] 11.7 g/dL 11.4 - 15.2 g/dL [facility] Interpretation and review of laboratory results Abnormal [facility] MCH (RBC) [Entitic mass] 29.2 pg 25.9 - 33.9 pg [facility] MCHC (RBC) [Mass/Vol] 31.5 g/dL 31.4 - 35.9 g/dL [facility] MCV (RBC) [Entitic vol] 92.8 fL 79.6 - 97.7 fL [facility] Platelet mean volume (Bld) [Entitic vol] 9.8 fL 8.5 - 12.2 fL [facility] Platelets (Bld) [#/Vol] 379 10*3/uL 150 - 393 K/uL [facility] RBC (Bld) [#/Vol] 4.01 10*6/uL [facility] WBC (Bld) [#/Vol] 11.95 10*3/uL High 3.99 - 11.19 K/uL [facility] Hematocrit (Bld) [Volume fraction] 37.2 % Normal 34.9-44.3 [facility] Comment on above: Performed By: #### [facility] #### [facility] (DEFAULT) [address] [address] Hemoglobin (Bld) [Mass/Vol] 11.7 g/dL Normal 11.4-15.2 [facility] Comment on above: Performed By: #### H EMOGC #### [facility] (DEFAULT) [address] [address] MCV (RBC) [Entitic vol] 92.8 fL Normal 79.6-97.7 [facility] Comment on above: Performed By: #### H EMOGC #### [facility] (DEFAULT) [address] [address] Mean Cell Hgb 29.2 pg Normal 25.9-33.9 [facility] Comment on above: Performed By: #### H EMOGC #### [facility] (DEFAULT) [address] [address] Mean Cell Hgb Conc 31.5 g/dL Normal 31.4-35.9 [facility] Comment on above: Performed By: #### H EMOGC #### [facility] (DEFAULT) [address] [address] Platelet mean volume (Bld) [Entitic vol] 9.8 fL Normal 8.5-12.2 [facility] Comment on above: Performed By: #### H EMOGC #### [facility] (DEFAULT) [address] [address] Platelets (Bld) [#/Vol] 379 10*3/uL Normal 150-393 [facility] Comment on above: Performed By: #### H EMOGC #### [facility] (DEFAULT) [address] [address] RBC (Bld) [#/Vol] 4.01 10*6/uL Normal 3.91-5.04 [facility] Comment on above: Performed By: #### H EMOGC #### [facility] (DEFAULT) [address] [place] [address] RBC Distribution 13.2 % Normal 10.8-14.9 [facility] Comment on above: Performed By: #### [facility] #### [facility] (DEFAULT) [address] [place] [address] WBC (Bld) [#/Vol] 11.95 10*3/uL High 3.99-11.19 [facility] Comment on above: Performed By: #### [facility] #### [facility] (DEFAULT) [address] [place] [address] CHEM 7 (LYTES,BUN,CREA,GLUC) on 01-27-2025 Anion gap [Moles/Vol] 12 mmol/L 7 - 17 mmol/L [facility] Chloride [Moles/Vol] 105 mmol/L 98 - 10 8 mmol/L [facility] CO2 [Moles/Vol] 23 mmol/L 21 - 31 mmol/L [facility] Creatinine [Mass/Vol] 0.85 mg/dL 0.50 - 1.20 mg/dL [facility] eGFR, CKD-EPI, Female 70 - PINF [facility] Comment on above: Reported eGFR is bas ed on the CKD-EPI 2020 equation using creatinine, age, and sex. Glucose [Mass/Vol] 84 mg/dL 70 - 179 mg/dL [facility] Osmolality Calc [Osmolality] 284 [facility] Potassium [Moles/Vol] 4 mmol/L 3.5 - 5.0 mmol/L [facility] Sodium [Moles/Vol] 136 mmol/L 135 - 145 mmol/L [facility] Urea nitrogen [Mass/Vol] 12 mg/dL 7 - 25 mg/dL [facility] Urea nitrogen/Creatinine [Mass ratio] 14 mg/mg [facility] Anion gap [Moles/Vol] 12 mmol/L Normal 7-17 [facility] Comment on above: Performed By: #### [facility] #### [facility] (DEFAULT) [address] [address] Chloride [Moles/Vol] 105 mmol/L Normal 98-108 [facility] Comment on above: Performed By: #### H EMO #### [facility] (DEFAULT) [address] [address] CO2 [Moles/Vol] 23 mmol/L Normal 21-31 [facility] Comment on above: Performed By: #### H EMOGC #### [facility] (DEFAULT) [address] [address] Creatinine [Mass/Vol] 0.85 mg/dL Normal 0.50-1.20 [facility] Comment on above: Performed By: #### [facility] #### [facility] (DEFAULT) [address] [address] GFR/1.73 sq M.predicted among non-blacks MDRD (S/P/Bld) [Vol rate/Area] 71 mL/min/{1.73_m2} Normal >=60 [facility] Comment on above: Result Comment: Repo rted eGFR is based on the CKD-EPI 2020 equation using creatinine, age, and sex. Performed By: #### [facility] #### [facility] (DEFAULT) [address] [address] Glucose [Mass/Vol] 84 mg/dL Normal Nonfastin g : 70-179 mg/dL; Fastin-99 [facility] Comment on above: Performed By: #### H EMO #### [facility] (DEFAULT) [address] [address] Osmolality [Osmolality] 284 mosm/kg Normal 278-305 [facility] Comment on above: Performed By: #### H EMOGC #### [facility] (DEFAULT) [address] [address] Potassium [Moles/Vol] 4.0 mmol/L Normal 3.5-5.0 [facility] Comment on above: Performed By: #### H EMOGC #### [facility] (DEFAULT) [address] [place] [address] Sodium [Moles/Vol] 136 mmol/L Normal 135-145 [facility] Comment on above: Performed By: #### H EMOGC #### [facility] (DEFAULT) [address] [place] [address] Urea nitrogen [Mass/Vol] 12 mg/dL Normal 7-25 [facility] Comment on above: Performed By: #### H EMO #### [facility] (DEFAULT) [address] [place] [address] Urea nitrogen/Creatinine [Mass ratio] 14 mg/mg Normal [facility] Comment on above: Performed By: #### H EMO #### [facility] (DEFAULT) [address] [place] [address] MAGNESIUMon 01-27-2025 Magnesium [Mass/Vol] 2.1 mg/dL 1.6 - 2 .6 mg/dL [facility] Magnesium [Mass/Vol] 2.1 mg/dL Normal 1.6-2.6 [facility] Comment on above: Performed By: #### H EMO #### [facility] (DEFAULT) [address] [place] [address] No Panel Informationon 01-27 Interpretation and review of laboratory results Normal [facility] PHOSPHATE, INORGANICon 01-27 Phosphate [Mass/Vol] 3.5 mg/dL 2.2 - 4 .6 mg/dL [facility] Phosphorous 3.5 mg/dL Normal 2.2-4.6 [facility] Comment on above: Performed By: #### H EMO #### [facility] (DEFAULT) [address] [place] [address] XR ABDOMEN 1 VIEW PORTABLEon 01-27-2025 XR [...] emphysema. IMPRESSION: Unchanged small bowel ileus. Normal [facility] XR Abdomen Single viewon IMPRESSION: Unchanged [...] emphysema. IMPRESSION IMPRESSION: Unchanged small bowel ileus. [facility] Radiology Study observation (narrative) [facility] XR Abdomen Single viewOrdere d By: Maria Victoria Vaca on 01-27-2025 [facility] Work Phone: CARDIAC RHYTHMon 01-26-2025 [facility] CBC,PLATELETSon 01-26-2025 Erythrocyte distribution width (RBC) [Ratio] 12.8 % 10.8 - 14.9 % [facility] Hematocrit (Bld) [Volume fraction] 39.2 % 34.9 - 44.3 % [facility] Hemoglobin (Bld) [Mass/Vol] 12.6 g/dL 11.4 - 15.2 g/dL [facility] Interpretation and review of laboratory results Abnormal [facility] MCH (RBC) [Entitic mass] 29.2 pg 25.9 - 33.9 pg [facility] MCHC (RBC) [Mass/Vol] 32.1 g/dL 31.4 - 35.9 g/dL [facility] MCV (RBC) [Entitic vol] 91 fL 79.6 - 97.7 fL [facility] Platelet mean volume (Bld) [Entitic vol] 9.2 fL 8.5 - 12.2 fL [facility] Platelets (Bld) [#/Vol] 355 10*3/uL 150 - 393 K/uL [facility] RBC (Bld) [#/Vol] 4.31 10*6/uL [facility] WBC (Bld) [#/Vol] 11.52 10*3/uL High 3.99 - 11.19 K/uL [facility] Hematocrit (Bld) [Volume fraction] 39.2 % Normal 34.9-44.3 [facility] Comment on above: Performed By: #### MILAGRO HUNT, ANITAM7 #### [facility] (DEFAULT) [address] [place] [address] Hemoglobin (Bld) [Mass/Vol] 12.6 g/dL Normal 11.4-15.2 [facility] Comment on above: Performed By: #### MILAGRO HUNT, ANITAM7 #### [facility] (DEFAULT) [address] [place] [address] MCV (RBC) [Entitic vol] 91.0 fL Normal 79.6-97.7 [facility] Comment on above: Performed By: #### M POORNIMA IPB, CHM7 #### [facility] (DEFAULT) [address] [address] Mean Cell Hgb 29.2 pg Normal 25.9-33.9 [facility] Comment on above: Performed By: #### M POORNIMA, IPB, CHM7 #### [facility] (DEFAULT) [address] [address] Mean Cell Hgb Conc 32.1 g/dL Normal 31.4-35.9 [facility] Comment on above: Performed By: #### Miracle NOGUERA IPB, CHM7 #### [facility] (DEFAULT) [address] [address] Platelet mean volume (Bld) [Entitic vol] 9.2 fL Normal 8.5-12.2 [facility] Comment on above: Performed By: #### Miracle NOGUERA, IPB, CHM7 #### [facility] (DEFAULT) [address] [address] Platelets (Bld) [#/Vol] 355 10*3/uL Normal 150-393 [facility] Comment on above: Performed By: #### M POORNIMA, IPB, CHM7 #### [facility] (DEFAULT) [address] [address] RBC (Bld) [#/Vol] 4.31 10*6/uL Normal 3.91-5.04 [facility] Comment on above: Performed By: #### M GO, IPB, CHM7 #### [facility] (DEFAULT) [address] [address] RBC Distribution 12.8 % Normal 10.8-14.9 [facility] Comment on above: Performed By: #### M GO, IPB, CHM7 #### [facility] (DEFAULT) [address] [address] WBC (Bld) [#/Vol] 11.52 10*3/uL High 3.99-11.19 [facility] Comment on above: Performed By: #### MILAGRO HUNT CHM7 #### [facility] (DEFAULT) [address] [place], [place] [address] CHEM 7 (LYTES,BUN,CREA,GLUC) on 01-26-2025 Anion gap [Moles/Vol] 9 mmol/L 7 - 17 mmol/L [facility] Chloride [Moles/Vol] 105 mmol/L 98 - 10 8 mmol/L [facility] CO2 [Moles/Vol] 27 mmol/L 21 - 31 mmol/L [facility] Creatinine [Mass/Vol] 0.53 mg/dL 0.50 - 1.20 mg/dL [facility] eGFR, CKD-EPI, Female - PINF [facility] Comment on above: Reported eGFR is bas ed on the CKD-EPI 2020 equation using creatinine, age, and sex. Glucose [Mass/Vol] 109 mg/dL 70 - 179 mg/dL [facility] Osmolality Calc [Osmolality] 287 [facility] Potassium [Moles/Vol] 4.3 mmol/L 3.5 - 5.0 mmol/L [facility] Sodium [Moles/Vol] 137 mmol/L 135 - 145 mmol/L [facility] Urea nitrogen [Mass/Vol] 9 mg/dL 7 - 25 mg/dL [facility] Urea nitrogen/Creatinine [Mass ratio] 17 mg/mg [facility] Anion gap [Moles/Vol] 9 mmol/L Normal 7-17 [facility] Comment on above: Performed By: #### MILAGRO HUNT CHM7 #### [facility] (DEFAULT) [address] [place] [address] Chloride [Moles/Vol] 105 mmol/L Normal 98-108 [facility] Comment on above: Performed By: #### MILAGRO HUNT CHM7 #### [facility] (DEFAULT) [address] [place] [address] CO2 [Moles/Vol] 27 mmol/L Normal 21-31 [facility] Comment on above: Performed By: #### MILAGRO HUNT CHM7 #### [facility] (DEFAULT) [address] [place] [address] Creatinine [Mass/Vol] 0.53 mg/dL Normal 0.50-1.20 [facility] Comment on above: Performed By: #### MILAGRO HUNT CHM7 #### [facility] (DEFAULT) [address] [place] [address] eGFR, CKD-EPI, Female > Normal >=60 [facility] Comment on above: Result Comment: Repo rted eGFR is based on the CKD-EPI 2020 equation using creatinine, age, and sex. Performed By: #### MILAGRO HUNT CHM7 #### [facility] (DEFAULT) [address] [place] [address] Glucose [Mass/Vol] 109 mg/dL Normal Nonfastin g : 70-179 mg/dL; Fastin-99 [facility] Comment on above: Performed By: #### MILAGRO HUNT CHM7 #### [facility] (DEFAULT) [address] [place] [address] Osmolality [Osmolality] 287 mosm/kg Normal 278-305 [facility] Comment on above: Performed By: #### MILAGRO HUNT CHM7 #### [facility] (DEFAULT) [address] [place] [address] Potassium [Moles/Vol] 4.3 mmol/L Normal 3.5-5.0 [facility] Comment on above: Performed By: #### MILAGRO HUTN CHM7 #### [facility] (DEFAULT) [address] [place] [address] Sodium [Moles/Vol] 137 mmol/L Normal 135-145 [facility] Comment on above: Performed By: #### MILAGRO HUNT CHM7 #### [facility] (DEFAULT) [address] [place] [address] Urea nitrogen [Mass/Vol] 9 mg/dL Normal 7-25 [facility] Comment on above: Performed By: #### MILAGRO HUNT, CHM7 #### [facility] (DEFAULT) [address] [place] [address] Urea nitrogen/Creatinine [Mass ratio] 17 mg/mg Normal [facility] Comment on above: Performed By: #### MILAGRO HUNT, CHM7 #### [facility] (DEFAULT) [address] [place] [address] MAGNESIUMon 01-26-2025 Magnesium [Mass/Vol] 2.2 mg/dL 1.6 - 2 .6 mg/dL [facility] Magnesium [Mass/Vol] 2.2 mg/dL Normal 1.6-2.6 [facility] Comment on above: Performed By: #### MILAGRO HUNT CHMNegro #### [facility] (DEFAULT) [address] [place] [address] No Panel Informationon 01-26 Interpretation and review of laboratory results Normal [facility] PHOSPHATE, INORGANICon 01-26 Phosphate [Mass/Vol] 2.6 mg/dL 2.2 - 4 .6 mg/dL [facility] Phosphorous 2.6 mg/dL Normal 2.2-4.6 [facility] Comment on above: Performed By: #### MILAGRO HUNT, CHM7 #### [facility] (DEFAULT) [address] [place] [address] CBC,PLATELETSon 01-25-2025 Erythrocyte distribution width (RBC) [Ratio] 12.7 % 10.8 - 14.9 % [facility] Hematocrit (Bld) [Volume fraction] 43.3 % 34.9 - 44.3 % [facility] Hemoglobin (Bld) [Mass/Vol] 14 g/dL 11.4 - 15.2 g/dL [facility] Interpretation and review of laboratory results Normal [facility] MCH (RBC) [Entitic mass] 29.3 pg 25.9 - 33.9 pg [facility] MCHC (RBC) [Mass/Vol] 32.3 g/dL 31.4 - 35.9 g/dL [facility] MCV (RBC) [Entitic vol] 90.6 fL 79.6 - 97.7 fL [facility] Platelet mean volume (Bld) [Entitic vol] 9.5 fL 8.5 - 12.2 fL [facility] Platelets (Bld) [#/Vol] 330 10*3/uL 150 - 393 K/uL [facility] RBC (Bld) [#/Vol] 4.78 10*6/uL [facility] WBC (Bld) [#/Vol] 10.65 10*3/uL 3.99 - 11.19 K/uL [facility] Hematocrit (Bld) [Volume fraction] 43.3 % Normal 34.9-44.3 [facility] Comment on above: Performed By: #### [facility] #### [facility] (DEFAULT) [address] [address] Hemoglobin (Bld) [Mass/Vol] 14.0 g/dL Normal 11.4-15.2 [facility] Comment on above: Performed By: #### [facility] #### [facility] (DEFAULT) [address] [address] MCV (RBC) [Entitic vol] 90.6 fL Normal 79.6-97.7 [facility] Comment on above: Performed By: #### [facility] #### [facility] (DEFAULT) [address] [address] Mean Cell Hgb 29.3 pg Normal 25.9-33.9 [facility] Comment on above: Performed By: #### [facility] #### [facility] (DEFAULT) [address] [place] [address] Mean Cell Hgb Conc 32.3 g/dL Normal 31.4-35.9 [facility] Comment on above: Performed By: #### H EMOGC #### [facility] (DEFAULT) [address] [place] [address] Platelet mean volume (Bld) [Entitic vol] 9.5 fL Normal 8.5-12.2 [facility] Comment on above: Performed By: #### H EMOGC #### [facility] (DEFAULT) [address] [place] [address] Platelets (Bld) [#/Vol] 330 10*3/uL Normal 150-393 [facility] Comment on above: Performed By: #### H EMOGC #### [facility] (DEFAULT) [address] [place] [address] RBC (Bld) [#/Vol] 4.78 10*6/uL Normal 3.91-5.04 [facility] Comment on above: Performed By: #### H EMOGC #### [facility] (DEFAULT) [address] [place] [address] RBC Distribution 12.7 % Normal 10.8-14.9 [facility] Comment on above: Performed By: #### H EMOGC #### [facility] (DEFAULT) [address] [place] [address] WBC (Bld) [#/Vol] 10.65 10*3/uL Normal 3.99-11.19 [facility] Comment on above: Performed By: #### H EMOGC #### [facility] (DEFAULT) [address] [address] CHEM 7 (LYTES,BUN,CREA,GLUC) Ordered By: Randi Bonner on 01-25-2025 Anion gap [Moles/Vol] 13 mmol/L 7 - 17 mmol/L [facility] Chloride [Moles/Vol] 105 mmol/L 98 - 10 8 mmol/L [facility] CO2 [Moles/Vol] 26 mmol/L 21 - 31 mmol/L [facility] Creatinine [Mass/Vol] 0.76 mg/dL 0.50 - 1.20 mg/dL [facility] eGFR, CKD-EPI, Female 82 - PINF [facility] Comment on above: Reported eGFR is bas ed on the CKD-EPI 2020 equation using creatinine, age, and sex. Glucose [Mass/Vol] 94 mg/dL 70 - 179 mg/dL [facility] Osmolality Calc [Osmolality] 293 [facility] Potassium [Moles/Vol] 3.7 mmol/L 3.5 - 5.0 mmol/L [facility] Sodium [Moles/Vol] 140 mmol/L 135 - 145 mmol/L [facility] Urea nitrogen [Mass/Vol] 16 mg/dL 7 - 25 mg/dL [facility] Urea nitrogen/Creatinine [Mass ratio] 21 mg/mg [facility] CHEM 7 (LYTES,BUN,CREA,GLUC) on 01-25-2025 Anion gap [Moles/Vol] 13 mmol/L Normal 7-17 [facility] Comment on above: Performed By: #### MILAGRO HUNT, CHM7 #### [facility] (DEFAULT) [address] [place] [address] Chloride [Moles/Vol] 105 mmol/L Normal 98-108 [facility] Comment on above: Performed By: #### MILAGRO HUNT, CHM7 #### [facility] (DEFAULT) [address] [place] [address] CO2 [Moles/Vol] 26 mmol/L Normal 21-31 [facility] Comment on above: Performed By: #### MILAGRO HUNT, CHM7 #### [facility] (DEFAULT) [address] [place] [address] Creatinine [Mass/Vol] 0.76 mg/dL Normal 0.50-1.20 [facility] Comment on above: Performed By: #### MILAGRO HUNT CHM7 #### [facility] (DEFAULT) [address] [place] [address] GFR/1.73 sq M.predicted among non-blacks MDRD (S/P/Bld) [Vol rate/Area] 82 mL/min/{1.73_m2} Normal >=60 [facility] Comment on above: Result Comment: Repo rted eGFR is based on the CKD-EPI 2020 equation using creatinine, age, and sex. Performed By: #### MILAGRO HUNT CHM7 #### [facility] (DEFAULT) [address] [place] [address] Glucose [Mass/Vol] 94 mg/dL Normal Nonfastin g : 70-179 mg/dL; Fastin-99 [facility] Comment on above: Performed By: #### MILAGRO HUNT CHM7 #### [facility] (DEFAULT) [address] [place] [address] Osmolality [Osmolality] 293 mosm/kg Normal 278-305 [facility] Comment on above: Performed By: #### MILAGRO HUNT CHMiracle7 #### [facility] (DEFAULT) [address] [place] [address] Potassium [Moles/Vol] 3.7 mmol/L Normal 3.5-5.0 [facility] Comment on above: Performed By: #### MILAGRO HUNT CHM7 #### [facility] (DEFAULT) [address] [place] [address] Sodium [Moles/Vol] 140 mmol/L Normal 135-145 [facility] Comment on above: Performed By: #### MILAGRO HUTN CHMiracle7 #### [facility] (DEFAULT) [address] [place] [address] Urea nitrogen [Mass/Vol] 16 mg/dL Normal 7-25 [facility] Comment on above: Performed By: #### MILAGRO HUNT CHM7 #### [facility] (DEFAULT) [address] [place] [address] Urea nitrogen/Creatinine [Mass ratio] 21 mg/mg Normal [facility] Comment on above: Performed By: #### MILAGRO HUNT CHM7 #### [facility] (DEFAULT) [address] [place] [address] MAGNESIUMon 01-25-2025 Magnesium [Mass/Vol] 1.9 mg/dL 1.6 - 2 .6 mg/dL [facility] Magnesium [Mass/Vol] 1.9 mg/dL Normal 1.6-2.6 [facility] Comment on above: Performed By: #### MILAGRO HUNT CHM7 #### [facility] (DEFAULT) [address] [place] [phone] No Panel Informationon 01-25 Interpretation and review of laboratory results Normal [facility] PHOSPHATE, INORGANICon 01-25 Phosphate [Mass/Vol] 2.8 mg/dL 2.2 - 4 .6 mg/dL [facility] Phosphorous 2.8 mg/dL Normal 2.2-4.6 [facility] Comment on above: Performed By: #### MILAGRO HUNT CHM7 #### [facility] (DEFAULT) [address] [place] [address] XR ABDOMEN 1 VIEW PORTABLEon 01-25-2025 XR [...] distention of small bowel, suggesting ileus. Normal [facility] XR Abdomen Single viewon IMPRESSION: Mild [...] gaseous distention of small bowel, suggesting ileus. [facility] Radiology Study observation (narrative) [facility] XR Abdomen Single viewOrdere d By: Cali Suarez on 01-25-2025 [facility] Work Phone: CBC,PLATELETSon 01-24-2025 Erythrocyte distribution width (RBC) [Ratio] 12.5 % 10.8 - 14.9 % [facility] Hematocrit (Bld) [Volume fraction] 36.5 % 34.9 - 44.3 % [facility] Hemoglobin (Bld) [Mass/Vol] 11.9 g/dL 11.4 - 15.2 g/dL [facility] Interpretation and review of laboratory results Normal [facility] MCH (RBC) [Entitic mass] 29.5 pg 25.9 - 33.9 pg [facility] MCHC (RBC) [Mass/Vol] 32.6 g/dL 31.4 - 35.9 g/dL [facility] MCV (RBC) [Entitic vol] 90.6 fL 79.6 - 97.7 fL [facility] Platelet mean volume (Bld) [Entitic vol] 10.1 fL 8.5 - 12.2 fL [facility] Platelets (Bld) [#/Vol] 279 10*3/uL 150 - 393 K/uL [facility] RBC (Bld) [#/Vol] 4.03 10*6/uL [facility] WBC (Bld) [#/Vol] 11.1 10*3/uL 3.99 - 11.19 K/uL [facility] Hematocrit (Bld) [Volume fraction] 36.5 % Normal 34.9-44.3 [facility] Comment on above: Performed By: #### MILAGRO HUNT CHM7 #### [facility] (DEFAULT) [address] [place] [phone] Hemoglobin (Bld) [Mass/Vol] 11.9 g/dL Normal 11.4-15.2 [facility] Comment on above: Performed By: #### MILAGRO HUNT CHM7 #### [facility] (DEFAULT) [address] [place] [address] MCV (RBC) [Entitic vol] 90.6 fL Normal 79.6-97.7 [facility] Comment on above: Performed By: #### MILAGRO HUNT, CHM7 #### [facility] (DEFAULT) [address] [place] [address] Mean Cell Hgb 29.5 pg Normal 25.9-33.9 [facility] Comment on above: Performed By: #### MILAGRO HUNT, CHM7 #### [facility] (DEFAULT) [address] [place] [address] Mean Cell Hgb Conc 32.6 g/dL Normal 31.4-35.9 [facility] Comment on above: Performed By: #### MILAGRO HUNT, CHM7 #### [facility] (DEFAULT) [address] [place] [address] Platelet mean volume (Bld) [Entitic vol] 10.1 fL Normal 8.5-12.2 [facility] Comment on above: Performed By: #### MILAGRO HUNT, CHM7 #### [facility] (DEFAULT) [address] [place] [address] Platelets (Bld) [#/Vol] 279 10*3/uL Normal 150-393 [facility] Comment on above: Performed By: #### MILAGRO HUNT, CHM7 #### [facility] (DEFAULT) [address] [place] [address] RBC (Bld) [#/Vol] 4.03 10*6/uL Normal 3.91-5.04 [facility] Comment on above: Performed By: #### MILAGRO HUNT, CHM7 #### [facility] (DEFAULT) [address] [place] [address] RBC Distribution 12.5 % Normal 10.8-14.9 [facility] Comment on above: Performed By: #### MILAGRO HUNT, CHM7 #### [facility] (DEFAULT) [address] [place] [address] WBC (Bld) [#/Vol] 11.10 10*3/uL Normal 3.99-11.19 [facility] Comment on above: Performed By: #### MILAGRO HUNT, CHM7 #### [facility] (DEFAULT) [address] [place] [phone] CHEM 7 (LYTES,BUN,CREA,GLUC) on 01-24-2025 Anion gap [Moles/Vol] 13 mmol/L 7 - 17 mmol/L [facility] Chloride [Moles/Vol] 102 mmol/L 98 - 10 8 mmol/L [facility] CO2 [Moles/Vol] 23 mmol/L 21 - 31 mmol/L [facility] Creatinine [Mass/Vol] 0.78 mg/dL 0.50 - 1.20 mg/dL [facility] eGFR, CKD-EPI, Female 79 - PINF [facility] Comment on above: Reported eGFR is bas ed on the CKD-EPI 2020 equation using creatinine, age, and sex. Glucose [Mass/Vol] 109 mg/dL 70 - 179 mg/dL [facility] Interpretation and review of laboratory results Abnormal [facility] Osmolality Calc [Osmolality] 283 [facility] Potassium [Moles/Vol] 5.3 mmol/L High 3.5 - 5.0 mmol/L [facility] Comment on above: Specimen slightly he molyzed. Potassium results may be falsey elevated by more than 0.5 mmol/L. Consider recollection. Sodium [Moles/Vol] 133 mmol/L Low 135 - 145 mmol/L [facility] Urea nitrogen [Mass/Vol] 13 mg/dL 7 - 25 mg/dL [facility] Urea nitrogen/Creatinine [Mass ratio] 17 mg/mg [facility] Anion gap [Moles/Vol] 13 mmol/L Normal 7-17 [facility] Comment on above: Performed By: #### MILAGRO HUNT CHM7 #### [facility] (DEFAULT) [address] [place] [address] Chloride [Moles/Vol] 102 mmol/L Normal 98-108 [facility] Comment on above: Performed By: #### MILAGRO HUNT CHM7 #### [facility] (DEFAULT) [address] [place] [address] CO2 [Moles/Vol] 23 mmol/L Normal 21-31 [facility] Comment on above: Performed By: #### MILAGRO HUNT CHM7 #### [facility] (DEFAULT) [address] [place] [address] Creatinine [Mass/Vol] 0.78 mg/dL Normal 0.50-1.20 [facility] Comment on above: Performed By: #### MILAGRO HUNT CHMiracle7 #### [facility] (DEFAULT) [address] [place] [address] GFR/1.73 sq M.predicted among non-blacks MDRD (S/P/Bld) [Vol rate/Area] 79 mL/min/{1.73_m2} Normal >=60 [facility] Comment on above: Result Comment: Repo rted eGFR is based on the CKD-EPI 2020 equation using creatinine, age, and sex. Performed By: #### MILAGRO HUNT CHM7 #### [facility] (DEFAULT) [address] [place] [address] Glucose [Mass/Vol] 109 mg/dL Normal Nonfastin g : 70-179 mg/dL; Fastin-99 [facility] Comment on above: Performed By: #### MILAGRO HUNT CHM7 #### [facility] (DEFAULT) [address] [place] [address] Osmolality [Osmolality] 283 mosm/kg Normal 278-305 [facility] Comment on above: Performed By: #### MILAGRO HUNT CHM7 #### [facility] (DEFAULT) [address] [place] [address] Potassium [Moles/Vol] 5.3 mmol/L High 3.5-5.0 [facility] Comment on above: Result Comment: Spec imen slightly hemolyzed. Potassium results may be falsey elevated by more than 0.5 mmol/L. Consider recollection. Performed By: #### MILAGRO HUNT CHMNegro #### [facility] (DEFAULT) [address] [place] [address] Sodium [Moles/Vol] 133 mmol/L Low 135-145 [facility] Comment on above: Performed By: #### MILAGRO HUNT CHM7 #### [facility] (DEFAULT) [address] [place] [address] Urea nitrogen [Mass/Vol] 13 mg/dL Normal 7-25 [facility] Comment on above: Performed By: #### MILAGRO HUNT CHM7 #### [facility] (DEFAULT) [address] [place] [address] Urea nitrogen/Creatinine [Mass ratio] 17 mg/mg Normal [facility] Comment on above: Performed By: #### MILAGRO HUNT CHM7 #### [facility] (DEFAULT) [address] [place] [address] MAGNESIUMon 01-24-2025 Magnesium [Mass/Vol] 1.8 mg/dL 1.6 - 2 .6 mg/dL [facility] Magnesium [Mass/Vol] 1.8 mg/dL Normal 1.6-2.6 [facility] Comment on above: Performed By: #### MILAGRO HUNT CHM7 #### [facility] (DEFAULT) [address] [place] [address] No Panel Informationon 01-24 Interpretation and review of laboratory results Normal [facility] PHOSPHATE, INORGANICon 01-24 Phosphate [Mass/Vol] 4.1 mg/dL 2.2 - 4 .6 mg/dL [facility] Phosphorous 4.1 mg/dL Normal 2.2-4.6 [facility] Comment on above: Performed By: #### MILAGRO HUNT CHM7 #### [facility] (DEFAULT) [address] [place] [phone] ABORH TYPE RECONFIRMATIONon 01-23-2025 ABO/RH(D) TYPE Positive [facility] ABO/RH(D) TYPE Positive Normal [facility] Comment on above: Performed By: #### MILAGRO HUNT CHM7 #### [facility] (DEFAULT) [address] [place] [phone] CONTINUOUS CARDIAC MONITORIN G STRIPon 01-23-2025 [facility] CONTINUOUS CARDIAC MONITORIN G STRIPOrdered By: Unassigned Pacs on 01-23-2025 [facility] Work Phone: [id number] PROMOTER METHYLATION, A CCESSIONINGon 01-23-2025 AP BLOCK/SLIDE ID [id number] [facility] Comment on above: Performed By: #### M GO, IPB, CHM7 #### [facility] (DEFAULT) [address] [place] [address] AP SLIDE SCANNED [facility] Comment on above: Performed By: #### M GO, IPB, CHM7 #### [facility] (DEFAULT) [address] [place] [address] [facility] Comment on above: Performed By: #### M GO, IPB, CHM7 #### [facility] (DEFAULT) [address] [place] [address] SURG PATH REQUESTon 01-24-[address] [facility] Comment on above: Result Comment: Surg ical Pathology Report Case: [id number] Authorizing Provider: AFRICA Thomas Collected: 01/23/2025 10:43 AM [facility] Received: 01/23/2025 11:35 AM Pathologist: AFRICA Mercado Specimen: SURG PATH, Right colon and terminal ileum Performed By: #### S URGP #### [facility] (DEFAULT) [address] [place] [address] Clinical History Malignant neoplasm o f ascending colon. Medical History: Malignant neoplasm of colon. Essential hypertension, benign. Hyperlipidemia. Arthritis. 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 All controls show appropriate reactivity. All immunohistochemistry (IHC), in situ hybridization (SHAE), and histochemical tests were developed by and are performed at the [facility] Clinical Laboratory, Histology and IHC Lab, [address] [place] [address]. All Immunofluorescent (IF) tests were developed by and are performed at the [facility] Clinical Laboratory, Renal Division, [address] [place] [address]. All tests reported here, except for PD-L1, have not been cleared by or approved by the [place] Food and Drug Administration (FDA). The laboratory is regulated under CLIA as qualified to perform high-complexity testing. The tests are used for clinical purposes. They should not be regarded as investigational or for research. Performed By: #### S URGP #### [facility] (DEFAULT) [address] [place] [address] Pathologic Diagnosis Normal [facility] Comment on above: Result Comment: A. [...] EDT Performed By: #### S URGP #### [facility] (DEFAULT) [address] [place] [address] Professional Interpretation Performed at: [facility] Comment on above: Result Comment: [facility] For Immediate Release to Patient's MyChart? Yes [address] [place] [address] Performed By: #### S URGP #### [facility] (DEFAULT) [address] [place] [address] Synoptic Checklist Normal [facility] Comment on above: Result Comment: COLO N [...] pN2a Performed By: #### S URGP #### [facility] (DEFAULT) [address] [place] [address] CBC AND ELECTRONIC DIFFon Basophils (Bld) [#/Vol] 0.06 10*3/uL 0.00 - 0.15 K/uL [facility] Basophils/100 WBC (Bld) 0.8 % [facility] Differential cell count method Nom (Bld) Electronic Differential O [facility] Eosinophils (Bld) [#/Vol] 0.33 10*3/uL 0.00 - 0.42 K/uL [facility] Eosinophils/100 WBC (Bld) 4.2 % [facility] Erythrocyte distribution width (RBC) [Ratio] 12.8 % 10.8 - 14.9 % [facility] Hematocrit (Bld) [Volume fraction] 43.6 % 34.9 - 44.3 % [facility] Hemoglobin (Bld) [Mass/Vol] 13.8 g/dL 11.4 - 15.2 g/dL [facility] Immature granulocytes (Bld) [#/Vol] K/uL NINF - 0.08 K/uL [facility] Immature granulocytes/100 WBC (Bld) 0.4 % [facility] Lymphocytes (Bld) [#/Vol] 1.98 10*3/uL 1.16 - 3.51 K/uL [facility] Lymphocytes/100 WBC (Bld) 25.4 % [facility] MCH (RBC) [Entitic mass] 29.4 pg 25.9 - 33.9 pg [facility] MCHC (RBC) [Mass/Vol] 31.7 g/dL 31.4 - 35.9 g/dL [facility] MCV (RBC) [Entitic vol] 93 fL 79.6 - 97.7 fL [facility] Monocytes (Bld) [#/Vol] 0.58 10*3/uL 0.22 - 0.87 K/uL [facility] Monocytes/100 WBC (Bld) 7.4 % [facility] Neutrophils (Bld) [#/Vol] 4.83 10*3/uL 1.64 - 7.28 K/uL [facility] Nucleated RBC/100 WBC (Bld) [Ratio] 0 % NINF [facility] Platelet mean volume (Bld) [Entitic vol] 10.2 fL 8.5 - 12.2 fL [facility] Platelets (Bld) [#/Vol] 375 10*3/uL 150 - 393 K/uL [facility] RBC (Bld) [#/Vol] 4.69 10*6/uL [facility] Segmented neutrophils/100 WBC (Bld) 61.8 % [facility] WBC (Bld) [#/Vol] 7.81 10*3/uL 3.99 - 11.19 K/uL [facility] Basophils (Bld) [#/Vol] 0.06 10*3/uL Normal 0.00-0.15 [facility] Comment on above: Performed By: #### L [id number] #### [facility] (DEFAULT) [address] [place] [address] 45076 Basophils/100 WBC (Bld) 0.8 % Normal [facility] Comment on above: Performed By: #### L AB980 #### [facility] (DEFAULT) [address] [place] [address] 83950 DIFF STATUS Electronic Differential Normal [facility] Comment on above: Performed By: #### L [id number] #### [facility] (DEFAULT) [address] [place] [address] 61514 Eosinophils (Bld) [#/Vol] 0.33 10*3/uL Normal 0.00-0.42 [facility] Comment on above: Performed By: #### L [id number] #### [facility] (DEFAULT) [address] [place] [address] 09988 Eosinophils/100 WBC (Bld) 4.2 % Normal [facility] Comment on above: Performed By: #### L [id number] #### [facility] (DEFAULT) [address] [place] [address] 48967 Hematocrit (Bld) [Volume fraction] 43.6 % Normal 34.9-44.3 [facility] Comment on above: Performed By: #### L [id number] #### [facility] (DEFAULT) [address] [place] [address] 56326 Hemoglobin (Bld) [Mass/Vol] 13.8 g/dL Normal 11.4-15.2 [facility] Comment on above: Performed By: #### L [id number] #### [facility] (DEFAULT) [address] [address] Immature Grans % 0.4 % Normal [facility] Comment on above: Performed By: #### L [id number] #### [facility] (DEFAULT) [address] [address] Immature Grans Absolute < Normal <=0.08 [facility] Comment on above: Performed By: #### L AB980 #### [facility] (DEFAULT) [address] [address] Lymphocytes (Bld) [#/Vol] 1.98 10*3/uL Normal 1.16-3.51 [facility] Comment on above: Performed By: #### L AB980 #### [facility] (DEFAULT) [address] [address] Lymphocytes/100 WBC (Bld) 25.4 % Normal [facility] Comment on above: Performed By: #### L AB980 #### [facility] (DEFAULT) [address] [address] MCV (RBC) [Entitic vol] 93.0 fL Normal 79.6-97.7 [facility] Comment on above: Performed By: #### L AB980 #### [facility] (DEFAULT) [address] [address] Mean Cell Hgb 29.4 pg Normal 25.9-33.9 [facility] Comment on above: Performed By: #### L AB980 #### [facility] (DEFAULT) [address] [address] Mean Cell Hgb Conc 31.7 g/dL Normal 31.4-35.9 [facility] Comment on above: Performed By: #### L AB980 #### [facility] (DEFAULT) [address] [address] Monocytes (Bld) [#/Vol] 0.58 10*3/uL Normal 0.22-0.87 [facility] Comment on above: Performed By: #### L AB980 #### [facility] (DEFAULT) [address] [place] [address] Monocytes/100 WBC (Bld) 7.4 % Normal [facility] Comment on above: Performed By: #### L AB980 #### [facility] (DEFAULT) [address] [place] [address] Nucleated RBC 0.0 /100 WBC Normal <=0.2 [facility] Comment on above: Performed By: #### L AB980 #### [facility] (DEFAULT) [address] [place] [address] Platelet mean volume (Bld) [Entitic vol] 10.2 fL Normal 8.5-12.2 [facility] Comment on above: Performed By: #### L AB980 #### [facility] (DEFAULT) [address] [place] [address] Platelets (Bld) [#/Vol] 375 10*3/uL Normal 150-393 [facility] Comment on above: Performed By: #### L AB980 #### [facility] (DEFAULT) [address] [place] [address] RBC (Bld) [#/Vol] 4.69 10*6/uL Normal 3.91-5.04 [facility] Comment on above: Performed By: #### L AB980 #### [facility] (DEFAULT) [address] [place] [address] RBC Distribution 12.8 % Normal 10.8-14.9 [facility] Comment on above: Performed By: #### L AB980 #### [facility] (DEFAULT) [address] [place] [address] Segs + Bands Auto 61.8 % Normal [facility] Comment on above: Performed By: #### L AB980 #### [facility] (DEFAULT) [address] [place] [address] Segs + Bands,Absolute Auto 4.83 K/uL Normal 1.64-7.28 [facility] Comment on above: Performed By: #### L AB980 #### [facility] (DEFAULT) [address] [place] [address] WBC (Bld) [#/Vol] 7.81 10*3/uL Normal 3.99-11.19 [facility] Comment on above: Performed By: #### L AB980 #### [facility] (DEFAULT) [address] [place] [address] COMPREHENSIVE METABOLIC PANE Anish 01-10-2025 Albumin [Mass/Vol] 4.2 g/dL 3.5 - 5.0 g/dL [facility] ALP [Catalytic activity/Vol] 55 U/L 32 - 126 U/L [facility] ALT [Catalytic activity/Vol] 16 U/L 9 - 48 U/L [facility] Anion gap [Moles/Vol] 14 mmol/L 7 - 17 mmol/L [facility] AST [Catalytic activity/Vol] 19 U/L 10 - 39 U/L [facility] Bilirubin [Mass/Vol] 0.4 mg/dL NINF - 1.5 mg/dL [facility] Calcium [Mass/Vol] 9.8 mg/dL 8.6 - 10. 5 mg/dL [facility] Chloride [Moles/Vol] 99 mmol/L 98 - 10 8 mmol/L [facility] CO2 [Moles/Vol] 30 mmol/L 21 - 31 mmol/L [facility] Creatinine [Mass/Vol] 0.68 mg/dL 0.50 - 1.20 mg/dL [facility] eGFR, CKD-EPI, Female - PINF [facility] Comment on above: Reported eGFR is bas ed on the CKD-EPI 2020 equation using creatinine, age, and sex. Glucose [Mass/Vol] 80 mg/dL 70 - 99 mg/dL [facility] Osmolality Calc [Osmolality] 292 [facility] Potassium [Moles/Vol] 4.3 mmol/L 3.5 - 5.0 mmol/L [facility] Protein [Mass/Vol] 7.4 g/dL 6.4 - 8.3 g/dL [facility] Sodium [Moles/Vol] 139 mmol/L 135 - 145 mmol/L [facility] Urea nitrogen [Mass/Vol] 17 mg/dL 7 - 25 mg/dL [facility] Urea nitrogen/Creatinine [Mass ratio] 25 mg/mg [facility] Albumin [Mass/Vol] 4.2 g/dL Normal 3.5-5.0 [facility] Comment on above: Performed By: #### M POORNIMA IPB, CHM7 #### [facility] (DEFAULT) [address] [place] [address] ALP [Catalytic activity/Vol] 55 U/L Normal 32-126 [facility] Comment on above: Performed By: #### M POORNIMA IPB, CHM7 #### [facility] (DEFAULT) [address] [place] [address] ALT [Catalytic activity/Vol] 16 U/L Normal 9-48 [facility] Comment on above: Performed By: #### M POORNIMA IPB, CHM7 #### [facility] (DEFAULT) [address] [place] [address] Anion gap [Moles/Vol] 14 mmol/L Normal 7-17 [facility] Comment on above: Performed By: #### M POORNIMA IPB, CHM7 #### [facility] (DEFAULT) [address] [place] [address] AST [Catalytic activity/Vol] 19 U/L Normal 10-39 [facility] Comment on above: Performed By: #### Miracle NOGUERA IPB, CHM7 #### [facility] (DEFAULT) [address] [place] [address] Bilirubin [Mass/Vol] 0.4 mg/dL Normal <1.5 [facility] Comment on above: Performed By: #### MILAGRO HUNT, CHM7 #### [facility] (DEFAULT) [address] [place] [address] Calcium [Mass/Vol] 9.8 mg/dL Normal 8.6-10.5 [facility] Comment on above: Performed By: #### MILAGRO HUNT, CHM7 #### [facility] (DEFAULT) [address] [place] [address] Chloride [Moles/Vol] 99 mmol/L Normal 98-108 [facility] Comment on above: Performed By: #### MILAGRO HUNT, CHM7 #### [facility] (DEFAULT) [address] [place] [address] CO2 [Moles/Vol] 30 mmol/L Normal 21-31 [facility] Comment on above: Performed By: #### MILAGRO HUNT, CHM7 #### [facility] (DEFAULT) [address] [place] [address] Creatinine [Mass/Vol] 0.68 mg/dL Normal 0.50-1.20 [facility] Comment on above: Performed By: #### MILAGRO HUNT, CHM7 #### [facility] (DEFAULT) [address] [place] [address] eGFR, CKD-EPI, Female > Normal >=60 [facility] Comment on above: Result Comment: Repo rted eGFR is based on the CKD-EPI 2020 equation using creatinine, age, and sex. Performed By: #### MILAGRO HUNT, CHM7 #### [facility] (DEFAULT) [address] [place] [address] Glucose [Mass/Vol] 80 mg/dL Normal 70-99 [facility] Comment on above: Performed By: #### MILAGRO HUNT, CHM7 #### [facility] (DEFAULT) [address] [place] [address] Osmolality [Osmolality] 292 mosm/kg Normal 278-305 [facility] Comment on above: Performed By: #### MILAGRO HUNT, CHM7 #### [facility] (DEFAULT) [address] [place] [address] Potassium [Moles/Vol] 4.3 mmol/L Normal 3.5-5.0 [facility] Comment on above: Performed By: #### MILAGRO HUNT, CHM7 #### [facility] (DEFAULT) [address] [place] [address] Protein [Mass/Vol] 7.4 g/dL Normal 6.4-8.3 [facility] Comment on above: Performed By: #### MILAGRO HUNT, CHM7 #### [facility] (DEFAULT) [address] [place] [address] Sodium [Moles/Vol] 139 mmol/L Normal 135-145 [facility] Comment on above: Performed By: #### MILAGRO HUNT, CHM7 #### [facility] (DEFAULT) [address] [place] [address] Urea nitrogen [Mass/Vol] 17 mg/dL Normal 7-25 [facility] Comment on above: Performed By: #### MILAGRO HUNT, CHM7 #### [facility] (DEFAULT) [address] [place] [address] Urea nitrogen/Creatinine [Mass ratio] 25 mg/mg Normal [facility] Comment on above: Performed By: #### MILAGRO HUNT, CHM7 #### [facility] (DEFAULT) [address] [place] [address] PREPARE TO TRANSFUSE OR RED BLOOD CELLSon 01-10-2025 [facility] PROTIME-INRon 01-10-2025 INR Coag (Bld) [Relative time] 0.9 {INR} 0.9 - 1.1 [facility] Interpretation and review of laboratory results Normal [facility] PT Coag (PPP) [Time] 12.3 s [facility] INR Coag (PPP) [Relative time] 0.9 {INR} Normal 0.9-1.1 [facility] Comment on above: Performed By: #### MILAGRO HUNT CHM7 #### [facility] (DEFAULT) [address] [place] [address] PT Coag (PPP) [Time] 12.3 s Normal 11.9-14.2 [facility] Comment on above: Performed By: #### MILAGRO HUNT CHM7 #### [facility] (DEFAULT) [address] [place] [address] PTTon 01-10-2025 aPTT Coag (PPP) [Time] 24.6 s [facility] Interpretation and review of laboratory results Normal [facility] aPTT Coag (Bld) [Time] 24.6 s Normal 24.0-34.3 [facility] Comment on above: Performed By: #### MILAGRO HUNT, LAURA #### [facility] (DEFAULT) [address] [place] [address]67 TYPE AND SCREEN - PREADMISSI ONon 01-10-2025 ABO/RH(D) TYPE Positive [facility] Specimen Expiration 02/09/2025 23:59 [facility] ABO/RH(D) TYPE Positive Normal [facility] Comment on above: Performed By: #### X MPO #### [facility] (DEFAULT) [address] [place] [address] Specimen Expiration 01/26/2025 23:59 Normal [facility] Comment on above: Performed By: #### X MPO #### [facility] (DEFAULT) [address] [place] [address] CHEST WITH CONTRASTon CT CHEST WITH [...] error, please notify the sender immediately at [phone] and permanently delete the original report and destroy any copies or printouts. Normal [facility] MRI ABDOMEN WITH AND WITHOUT CONTRASTon [...] mesenteric lymphadenopathy, suspicious for metastatic disease. Normal [facility] CREAT/GFRon 12-31-2024 Creatinine [Mass/Vol] 0.61 mg/dL 0.50 - 1.20 mg/dL [facility] GFR/1.73 sq M.predicted CKD-EPI (S/P/Bld) [Vol rate/Area] - PINF [facility] Comment on above: Reported eGFR is bas ed on the CKD-EPI 2020 equation using creatinine, age, and sex. Interpretation and review of laboratory results Normal [facility] Test performed at ad dress of the patient encounter. [facility] CBC + DIFFon 11-17-2024 Baso # 0.02 x10EE3/UL Normal 0.00 - 0.10 [facility] Comment on above: Performed By: #### 2 00742 #### [facility],[address] [place] [address] Basophils/100 WBC (Bld) 0.3 % Normal 0.0 - 2.0 [facility] Comment on above: Performed By: #### 2 96595 #### [facility],[address] [place] [address]018 CBC + DIFF Normal [facility] Comment on above: Result Comment: CBC- COMPLETE BLOOD COUNT Performed By: #### 2 31235 #### [facility],[address] [place] [address]478 EO # 0.29 x10EE3/UL Normal 0.00 - 0.50 [facility] Comment on above: Performed By: #### 2 45854 #### [facility],[address] [place] [address] 18942 Eosinophils/100 WBC (Bld) 4.3 % Normal 0.0 - 7.0 [facility] Comment on above: Performed By: #### 2 32914 #### [facility],[address] [place] [address]239 Erythrocyte distribution width (RBC) [Ratio] 13.0 % Normal 12.0 - 15.6 [facility] Comment on above: Performed By: #### 2 12319 #### [facility],[address] [place] [address] Hematocrit (Bld) [Volume fraction] 47.5 % High 34.0 - 46.0 [facility] Comment on above: Performed By: #### 2 72858 #### [facility],[address] [place] [address] Hemoglobin (Bld) [Mass/Vol] 15.8 g/dL Normal 12.0 - 16.0 [facility] Comment on above: Performed By: #### 2 95382 #### [facility],[address] [place] [address] Lymph # 1.93 x10EE3/UL Normal 0.80 - 2.80 [facility] Comment on above: Performed By: #### 2 57182 #### [place] [address] Lymphocytes/100 WBC (Bld) 28.9 % Normal 20.0 - 45.0 [facility] Comment on above: Performed By: #### 2 79958 #### [facility],[address] [place] [address] MANUAL DIFF N/A Normal [facility] Comment on above: Performed By: #### 2 72940 #### [facility],[address] [place], [place] [address] MCH (RBC) [Entitic mass] 30 pg Normal 27 - 33 [facility] Comment on above: Performed By: #### 2 40671 #### [place] [id number] MCHC 33 X10 3 Normal 32 - 36 [facility] Comment on above: Performed By: #### 2 04285 #### [facility],[address] [place], [place] [address] MCV (RBC) [Entitic vol] 90 fL Normal 80 - 99 [facility] Comment on above: Performed By: #### 2 23104 #### [facility],[address] [place] [address] 24079 [place] # 0.55 x10EE3/UL Normal 0.20 - 1.00 [facility] Comment on above: Performed By: #### 2 43969 #### [facility],[address] [place] [address] 70672 MONOS % 8.3 % Normal 0.0 - 10.0 [facility] Comment on above: Performed By: #### 2 18794 #### [facility],[address] [place] [address]97 Morphology Miguel (Bld) [Interp] N/A Normal [facility] Comment on above: Performed By: #### 2 83507 #### [facility],[address] [place] [address] 84126 Neut # 3.89 x10EE3/UL Normal 1.50 - 7.10 [facility] Comment on above: Performed By: #### 2 94421 #### [facility],[address] [place] [address] 26828 Neutrophils/100 WBC (Bld) 58.3 % Normal 46.0 - 76.0 [facility] Comment on above: Performed By: #### 2 87748 #### [facility],[address] [place] [address] 43769 PLATELET 373 x10EE3/UL Normal 150 - 450 [facility] Comment on above: Performed By: #### 2 49072 #### [facility],[address] [place] [address] 21267 Platelet mean volume (Bld) [Entitic vol] 7.8 fL Normal 6.6 - 10.5 [facility] Comment on above: Result Comment: AUTO MATED DIFFERENTIAL Performed By: #### 2 27002 #### [facility],[address] [place] [address] 16023 RBC 5.28 x 10EE6/UL Normal 4.10 - 5.30 [facility] Comment on above: Performed By: #### 2 34914 #### [facility],[address] [place] [address] 25904 WBC 6.7 x 10EE3/UL Normal 4.5 - 10.8 [facility] Comment on above: Performed By: #### 2 28766 #### [facility],[address] [place] [address] 18132 CHEST 2 VIEWSon 11-17-2024 CHEST 2 VIEWS [place] [address] Patient: JESSIKA CARRILLO Phone#: : 1950 Age: 74 Gender: F Pt. Type: Out Account: [id number] Location: [facility] Ordering: FLEX BOLES Exam Date: 11/17/2024/8:11 Family Phys: SHU CHOW Charge Code: [id number] Physician: Charlton Order #: [id number] Dose#: PROCEDURE: X-RAY CHEST 2 VIEWS COMPARISON: [facility], , CHEST 2 VIEWS, 12/01/2023, 9:37. [...] Granda MD on 11/17/2024 at 8:39 Normal [facility] CMP with eGFRon 11-17-2024 AGE 74 years Normal [facility] Comment on above: Performed By: #### 2 17783 #### [facility],[address] [place] [address] 14452 Albumin [Mass/Vol] 3.6 g/dL Normal 3.4 - 5.0 [facility] Comment on above: Performed By: #### 2 91238 #### [facility],[address] [place] [address] 70204 Albumin/Globulin [Mass ratio] 0.9 {ratio} Normal 0.9 - 1.6 [facility] Comment on above: Performed By: #### 2 31630 #### [facility],[address] [place] [address] 95766 ALK PHOS 73 U/L Normal 46 - 116 [facility] Comment on above: Performed By: #### 2 95493 #### [facility],[address] [place] [address] 63273 ALT [Catalytic activity/Vol] 27 U/L Normal 16 - 63 [facility] Comment on above: Performed By: #### 2 69680 #### [facility],[address] [place] [address] 30867 Anion gap [Moles/Vol] 13 mmol/L Normal 10 - 20 [facility] Comment on above: Performed By: #### 2 66370 #### [facility],[address] [place] [address] 21554 AST [Catalytic activity/Vol] 20 U/L Normal 13 - 39 [facility] Comment on above: Performed By: #### 2 99956 #### [facility],[address] [place] [address] 04237 B/C RATIO 24 ratio Normal 0 - 30 [facility] Comment on above: Performed By: #### 2 26372 #### [facility],[address] [place] [address] 42143 Bilirubin [Mass/Vol] 0.4 mg/dL Normal 0.2 - 1.0 [facility] Comment on above: Performed By: #### 2 17505 #### [facility],[address] [place] [address] 19703 Calcium [Mass/Vol] 9.5 mg/dL Normal 8.5 - 10.1 [facility] Comment on above: Performed By: #### 2 39870 #### [facility],[address] [place] [address] 01756 Chloride [Moles/Vol] 103 mmol/L Normal 98 - 107 [facility] Comment on above: Performed By: #### 2 41372 #### [facility],[address] [place] [address] 38099 CMP with eGFR Normal [facility] Comment on above: Result Comment: COMP REHENSIVE METABOLIC PANEL Performed By: #### 2 66600 #### [facility],[address] [place] [address] 45738 CO2 [Moles/Vol] 29.4 mmol/L Normal 21.0 - 32.0 [facility] Comment on above: Performed By: #### 2 56743 #### [facility],[address] [place] [address] 86258 Creatinine [Mass/Vol] 0.86 mg/dL Normal 0.55 - 1.02 [facility] Comment on above: Performed By: #### 2 06018 #### [facility],[address] [place] [address] 60967 GFR/1.73 sq M.predicted among non-blacks MDRD (S/P/Bld) [Vol rate/Area] mL/min/{1.73_m2} Normal 60 - 999 [facility] Comment on above: Performed By: #### 2 68879 #### [facility],[address] [place] [address] 19360 Result Comment: ACCO RDING TO THE NATIONAL KIDNEY DISEASE EDUCATION PROGRAM(NKDE), A NORMAL eGFR IS A VALUE GREATER THAN OR EQUAL TO 60 ML/MIN/1.73 SQ METERS. CHRONIC KIDNEY DISEASE: <60mL/MIN/1.73 SQ METERS KIDNEY FAILURE: <15mL/MIN/1.73 SQ METERS THIS TEST SHOULD ONLY BE USED FOR PATIENTS 18 YEARS OF AGE AND OLDER. Globulin (S) [Mass/Vol] 4.1 g/dL High 1.5 - 3.8 [facility] Comment on above: Performed By: #### 2 79122 #### [facility],[address] [place] [address] 18899 Glucose [Mass/Vol] 94 mg/dL Normal 74 - 106 [facility] Comment on above: Performed By: #### 2 72158 #### [facility],[address] [place] [address] 88655 Potassium [Moles/Vol] 4.0 mmol/L Normal 3.5 - 5.1 [facility] Comment on above: Performed By: #### 2 35359 #### [address] [address] Protein [Mass/Vol] 7.7 g/dL Normal 6.4 - 8.2 [facility] Comment on above: Performed By: #### 2 28733 #### [address] [address] Sodium [Moles/Vol] 141 mmol/L Normal 136 - 145 [facility] Comment on above: Performed By: #### 2 52940 #### [address] [address] Urea nitrogen [Mass/Vol] 21 mg/dL High 7 - 18 [facility] Comment on above: Performed By: #### 2 60407 #### [address] [address] [address] ABDOMEN/PELVIS [facility] 2024 CT ABDOMEN/PELVIS [place] [address] Patient: JESSIKA CARRILLO Phone#: : 1950 Age: 74 Gender: F Pt. Type: Out Account: [id number] Location: 062 Ordering: FLEX BOLES Exam Date: 11/17/2024/9:17 Family Phys: SHU CHOW Charge Code: [id number] Physician: Charlton Order #: [id number] Dose#: [id number] PROCEDURE: CT ABDOMEN/PELVIS WITH CONTRAST [...] 74 Gender: F Pt. Type: Out Account: [id number] Location: 062 Ordering: FLEX BOLES Exam Date: 11/17/2024/9:17 Family Phys: SHU CHOW Charge Code: [id number] Physician: Charlton Order #: [id number] Dose#: [id number] URINARY BLADDER: Normal. No visible [...] Granda MD on 11/17/2024 at 11:29 Normal [facility] Supplemental Reporton 2023 Supplemental Report . Pathology Reports Accession: Collected Date/Time: Received Date/Time: Pathologist: [id number] 08/17/2024 13:36 EDT 08/19/2024 08:23 EDT CALI EVANS MD Supplemental Report SUPPLEMENTAL: [facility] [address] [place] [address] MLH1 Methylation Analysis Clinical summary and Indication: [...] Electronically Signed by Diagnostic interpretation performed at [facility] CALI EVANS Sign out Date: 09/23/2024 14:35 Performing Lab: [facility], [address] [place] [address] Pathology Dept Final Surgical Pathology Report DIAGNOSIS: [...] testing of germline MLH1 may be indicated) PROJECT CONSTRUCTION ASSISTANT MANAGER TUMOR BLOCK(S): A Pathology Reports Accession: Collected Date/Time: Received Date/Time: Pathologist: [id number] 08/17/2024 13:36 EDT 08/19/2024 08:23 EDT CALI EVANS MD COMMENT: [facility] - [id number] CLINICAL INFORMATION: HISTORY OF POLYPS SPECIMEN: A COLON BX AT 130cm B COLON BX AT 150cm GROSS DESCRIPTION: All parts labelled with patient name and [id number]. Received in formalin labeled biopsy at 130 cm are multiple sofia-brown tissue fragments aggregating to 0.7 x 0.4 x 0.3 cm greatest dimension. TS-1 B. received in formalin labeled biopsy at 150 cm is 1 wispy sofia tissue fragment measuring 0.5 x 0.3 cm greatest dimension. TS-1 Ines Merrill, Grossing Destination Sign Repairer/ Dr. Cali Evans, Pathologist Performed by Ines Merrill MICROSCOPIC DESCRIPTION: The microscopic examination is performed, except in the case of Gross Only. Electronically Signed by Pathology Report verified by [facility] CALI EVANS Sign out Date: 08/30/2024 15:56 Performing Lab: [facility], [address] [place] [address] Pathology Dept Disclaimer If ancillary studies were utilized, the following Laboratory Developed Test (LDT) disclaimer will apply: Under CLIA requirements, [facility] Pathology Laboratory is qualified to perform high complexity testing. For all ancillary stains, positive and negative controls stain appropriately. Performance characteristics of immunohistochemical and chromogenic in-situ hybridization tests have been determined by [facility] Pathology Laboratory. These tests are used for clinical purposes, They should not be regarded as investigational or for research. Normal [facility] Final Surgical Pathology Rep matthias 08-30-2024 Final Surgical Pathology Report . Pathology Reports Accession: Collected Date/Time: Received Date/Time: Pathologist: [id number] 08/17/2024 13:36 EDT 08/19/2024 08:23 EDT CALI [...] testing of germline MLH1 may be indicated) PROJECT CONSTRUCTION ASSISTANT MANAGER TUMOR BLOCK(S): A COMMENT: [facility] - [id number] CLINICAL INFORMATION: HISTORY OF POLYPS SPECIMEN: A COLON BX AT 130cm B COLON BX AT 150cm GROSS DESCRIPTION: All parts labelled with patient name and [id number] A. Received in formalin labeled biopsy at 130 cm are multiple sofia-brown tissue fragments aggregating to 0.7 x 0.4 x 0.3 cm greatest dimension. TS-1 B. received in formalin labeled biopsy at 150 cm is 1 wispy sofia tissue fragment measuring 0.5 x 0.3 cm greatest dimension. TS-1 Ines Merrill, Grossing Destination Sign Repairer/ Dr. Cali Evans, Pathologist Performed by Ines Merrill MICROSCOPIC DESCRIPTION: The microscopic examination is performed, except in the case of Gross Only. Pathology Reports Accession: Collected Date/Time: Received Date/Time: Pathologist: [id number] 08/17/2024 13:36 EDT 08/19/2024 08:23 EDT CALI EVANS MD Electronically Signed by Pathology Report verified by [facility] CALI EVANS Sign out Date: 08/30/2024 15:56 Performing Lab: [facility], [address] [place] [address] Pathology Dept Disclaimer If ancillary studies were utilized, the following Laboratory Developed Test (LDT) disclaimer will apply: Under CLIA requirements, [facility] Pathology Laboratory is qualified to perform high complexity testing. For all ancillary stains, positive and negative controls stain appropriately. Performance characteristics of immunohistochemical and chromogenic in-situ hybridization tests have been determined by [facility] Pathology Laboratory. These tests are used for clinical purposes, They should not be regarded as investigational or for research. Normal [facility] OPERATIVE PROCEDURESon 08-27 OPERATIVE PROCEDURES [facility] OPERATIVE REPORT NAME ACCOUNT SEX AGE ADMIT DISCHARGE PT MED. RECORD# NUMBER DATE DATE TYPE JESSIKA CARRILLO [id number] F 74 08/17/24 08/17/24 2 [id number] ROOM: [facility] DATE OF : 1950 DICTATING PHYSICIAN: Flex Boles DATE OF SURGERY: August 17, 2024 SURGEON: Flxe Boles MD WIRE HANGER: ANESTHESIOLOGIST: ANESTHETIC: PREOPERATIVE DIAGNOSIS: POSTOPERATIVE DIAGNOSIS: Screening [...] tags, and no discrete mass. The Olympus [id number] flexible endoscope was introduced through the anal [...] Flex Boles MD 08/17/24 13:53 JOB #: [id number] Transcribed By: dasia 08/17/24 16:29 Electronically signed by: E-Sign Dr. Flex Boles MD 08/27/24 12:39 Page 2 of 2 JESSIKA CARRILLO Operative Report Normal [facility] 3D MAMM BILAT SCREENon 08-01 3D MAMM BILAT SCREEN [place] [address] Patient: FITOJESSIKA Shannon. Phone#: : 1950 Age: 73 Gender: F Pt. Type: Out Account: [id number] Location: [facility] Ordering: SHU CHOW Exam Date: 08/01/2024/10:25 Family Phys: Charge Code: 432274 Physician: Charlton Order #: [id number] Dose#: PROCEDURE: BILATERAL SCREENING BREAST TOMOSYNTHESIS MAMMOGRAM WITH CAD COMPARISON: [facility], 3D BILAT SCREEN, 08/28/2022, 13:27. [facility], 3D BILAT SCREEN, 08/21/2023, 11:12. INDICATIONS: screening [...] Granda MD on 08/01/2024 at 12:45 Normal [facility] COMPREHENSIVE METABOLIC PANE Anish 07-06-2024 Albumin [Mass/Vol] 4.2 g/dL Normal 3.6-5.1 [facility] Comment on above: Performed By: #### 1 0231, 7600, 26689, 899, 1005, 866 #### [facility] [place] [address] Foamite Mixer: Esteban Shen MD Albumin/Globulin [Mass ratio] 1.4 {ratio} Normal 1.0-2.5 [facility] Comment on above: Performed By: #### 1 0231, 7600, 09147, 899, 1005, 866 #### [facility] [place] [address] Foamite Mixer: Esteban Shen MD ALP [Catalytic activity/Vol] 56 U/L Normal 37-153 [facility] Comment on above: Performed By: #### 1 0231, 7600, 95905, 899, 1005, 866 #### [facility] [place] [address] [employer]amite Mixer: Esteban Shen MD ALT [Catalytic activity/Vol] 25 U/L Normal 6-29 [facility] Comment on above: Performed By: #### 1 0231, 7600, 86775, 899, 1005, 866 #### [facility] [place] [address] Foamite Mixer: Esteban Shen MD AST [Catalytic activity/Vol] 30 U/L Normal 10-35 [facility] Comment on above: Performed By: #### 1 0231, 7600, 96241, 899, 1005, 866 #### [facility] [place] [address] [employer]amite Mixer: Esteban Shen MD Bilirubin [Mass/Vol] 0.5 mg/dL Normal 0.2-1.2 [facility] Comment on above: Performed By: #### 1 0231, 7600, 06974, 899, 1005, 866 #### [facility] [place] [address] Foamite Mixer: Esteban Shen MD BUN/CREATININE RATIO SEE NOTE: Normal 6-22 [facility] Comment on above: Result Comment: Not Reported: BUN and Creatinine are within reference range. Performed By: #### 1 0231, 7600, 06511, 899, 1005, 866 #### [facility] [address], [address] [place] [address] [employer]amite Mixer: Esteban Shen MD Calcium [Mass/Vol] 9.9 mg/dL Normal 8.6-10.4 [facility] Comment on above: Performed By: #### 1 0231, 7600, 50876, 899, 1005, 866 #### [facility] [address], [address] [place] [address] Foamite Mixer: Esteban Shen MD Chloride [Moles/Vol] 100 mmol/L Normal 98-110 [facility] Comment on above: Performed By: #### 1 0231, 7600, 58704, 899, 1005, 866 #### [facility] [address], [address] [place] [address] Foamite Mixer: Esteban Shen MD CO2 [Moles/Vol] 29 mmol/L Normal 20-32 [facility] Comment on above: Performed By: #### 1 0231, 7600, 94956, 899, 1005, 866 #### [facility] [address], [address] [place] [address] Foamite Mixer: Esteban Shen MD Creatinine [Mass/Vol] 0.70 mg/dL Normal 0.60-1.[address] [facility] Comment on above: Performed By: #### 1 0231, 7600, 40759, 899, 1005, 866 #### [facility] [address], [address] [place] [address] [employer]amite Mixer: Esteban Shen MD GFR/1.73 sq M.predicted among non-blacks MDRD (S/P/Bld) [Vol rate/Area] 91 mL/min/{1.73_m2} Normal > OR = 60 [facility] Comment on above: Performed By: #### 1 0231, 7600, 70186, 899, 1005, 866 #### [facility] [place] [address] Foamite Mixer: Esteban Shen MD Globulin (S) [Mass/Vol] 2.9 g/dL Normal 1.9-3.7 [facility] Comment on above: Performed By: #### 1 0231, 7600, 63375, 899, 1005, 866 #### [facility] [place] [address] Foamite Mixer: Esteban Shen MD Glucose [Mass/Vol] 91 mg/dL Normal 65-99 [facility] Comment on above: Result Comment: Fasting reference interval Performed By: #### 1 0231, 7600, 21437, 899, 1005, 866 #### [facility] [place] [address] Foamite Mixer: Esteban Shen MD Potassium [Moles/Vol] 4.5 mmol/L Normal 3.5-5.[address] [facility] Comment on above: Performed By: #### 1 0231, 7600, 24541, 899, 1005, 866 #### [facility] [place] [address] Foamite Mixer: Esteban Shen MD Protein [Mass/Vol] 7.1 g/dL Normal 6.1-8.1 [facility] Comment on above: Performed By: #### 1 0231, 7600, 37117, 899, 1005, 866 #### [facility] [place] [address] Foamite Mixer: Esteban Shen MD Sodium [Moles/Vol] 139 mmol/L Normal 135-146 [facility] Comment on above: Performed By: #### 1 0231, 7600, 01107, 899, 1005, 866 #### [facility] [place] [address] Foamite Mixer: Esteban Shen MD Urea nitrogen [Mass/Vol] 14 mg/dL Normal 7-25 [facility] Comment on above: Performed By: #### 1 0231, 7600, 28935, 899, 1005, 866 #### [facility] [place] [address] Foamite Mixer: Esteban Shen MD LIPID PANEL, [facility] Cholesterol [Mass/Vol] 213 mg/dL High <200 [facility] Comment on above: Performed By: #### 1 0231, 7600, 43940, 899, 1005, 866 #### [facility] [place] [address] Foamite Mixer: Esteban Shen MD Cholesterol in HDL [Mass/Vol] 51 mg/dL Normal > OR = 50 [facility] Comment on above: Performed By: #### 1 0231, 7600, 62776, 899, 1005, 866 #### [facility] [place] [address] Foamite Mixer: Esteban Shen MD Cholesterol in LDL [Mass/Vol] [...] LDL-C. Rohan HO et al. NIEVES. 2013;310(19): 6707-4658 (http://education.[employer]/faq/RDN378) Performed By: #### 1 0231, 7600, 77237, 899, 1005, 866 #### [facility] [address], [address] [place] [address] Foamite Mixer: Esteban Shen MD Cholesterol.total/Chol esterol in HDL [Mass ratio] 4.2 {ratio} Normal <5.0 [facility] Comment on above: Performed By: #### 1 0231, 7600, 41996, 899, 1005, 866 #### [facility] [place] [address] Foamite Mixer: Esteban Shen MD NON HDL CHOLESTEROL 162 mg/dL (calc) High <130 [facility] Comment on above: Result Comment: For patients with diabetes plus 1 major ASCVD risk factor, treating to a non-HDL-C goal of <100 mg/dL (LDL-C of <70 mg/dL) is considered a therapeutic option. Performed By: #### 1 0231, 7600, 10517, 899, 1005, 866 #### [facility] [place] [address] Foamite Mixer: Esteban Shen MD Triglyceride [Mass/Vol] 216 mg/dL High <150 [facility] Comment on above: Result Comment: If a non-fasting specimen was collected, consider repeat triglyceride testing on a fasting specimen if clinically indicated. Jamel et al. J. of Clin. Lipidol. 2015;9:129-169. Performed By: #### 1 0231, 7600, 33777, 899, 1005, 866 #### [facility] [place] [address] Foamite Mixer: Esteban Shen MD T4, FREEon 07-06-2024 Free T4 [Mass/Vol] 1.1 ng/dL Normal 0.8-1.8 [facility] Comment on above: Performed By: #### 1 0231, 7600, 14941, 899, 1005, 866 #### [facility] [place] [address] Foamite Mixer: Esteban Shen MD TEST AUTHORIZATIONon 024 CLIENT CONTACT: ROVERTO LYNCH Normal [facility] Comment on above: Performed By: #### 1 0231, 7600, 28479, 899, 1005, 866 #### [facility] [address], [address] [place] [address] Foamite Mixer: Esteban Shen MD COMMENT Normal [facility] Comment on above: Result Comment: Plea se have the ordering physician or his or her authorized door to door sales representative sign a copy of this report and promptly return it by faxing it to: [phone] or by returning the form to your hospitality housekeeper. Performed By: #### 1 0231, 7600, 44308, 899, 1005, 866 #### [facility] [place] [address] Foamite Mixer: Esteban Shen MD REPORT ALWAYS MESSAGE SIGNATURE Normal [facility] Comment on above: Result Comment: The laboratory testing on this patient was verbally requested or confirmed by the ordering physician or his or her authorized door to door sales representative after contact with an employee of [employer]. Federal regulations require that we maintain on file written authorization for all laboratory testing. Accordingly we are asking that the ordering physician or his or her authorized door to door sales representative sign a copy of this report and promptly return it to the client solutions manager. Signature: Performed By: #### 1 0231, 7600, 13644, 899, 1005, 866 #### [facility] [address], [address] [place] [address] Foamite Mixer: Esteban Shen MD TEST CODE: 866SB Normal [facility] Comment on above: Performed By: #### 1 0231, 7600, 64936, 899, 1005, 866 #### [facility] [address], [address] [place] [address] Foamite Mixer: Esteban Shen MD TEST NAME: T4, FREE Normal [facility] Comment on above: Performed By: #### 1 0231, 7600, 30700, 899, 1005, 866 #### [facility] [address], [address] [place], [place] [address] Foamite Mixer: Esteban Shen MD TSHon 07-06-2024 TSH Qn 4.86 m[IU]/L High 0.40-4.50 [facility] Comment on above: Performed By: #### 1 0231, 0, 75794, 899, 1005, 866 #### [facility] [address], [address] Foamite Mixer: Esteban Shen MD VITAMIN D,25-OH,TOTAL,IAon 0 07-06-2024 [...] D, (D2,D3), LC/MS/MS is recommended: order code 68959 (patients >2yrs). See Note 1 Note 1 For additional information, please refer to http://education.[employer] Network/faq/GPZ623 (This link is being provided for informational/ educational purposes only.) Performed By: #### 1 0231, 0, 10223, 899, 1005, 866 #### [facility] [address], [address] [place] [address] Foamite Mixer: Esteban Shen MD Laboratory - Chemistry and C hemistry - challengeon 07-05-2024 Albumin [Mass/Vol] 4.2 g/dL Normal 3.6 - 5.1 g/dL [facility] Albumin/Globulin [Mass ratio] 1.4 {ratio} Normal 1.0 - 2.5 [facility], [facility] ALP [Catalytic activity/Vol] 56 U/L Normal 37 - 153 U/L [facility], [facility]. ALT [Catalytic activity/Vol] 25 U/L Normal 6 - 29 U/L [facility].; [place] [employer] [facility], [employer]. AST [Catalytic activity/Vol] 30 U/L Normal 10 - 35 U/L [facility], [facility].; [place] [employer] [facility] Bilirubin [Mass/Vol] 0.5 mg/dL Normal 0.2 - 1 .2 mg/dL [facility].; [place] [employer] [facility], [facility]. Calcium [Mass/Vol] 9.9 mg/dL Normal 8.6 - 10. 4 mg/dL [facility].; [place] [employer] [facility]. Chloride [Moles/Vol] 100 mmol/L Normal 98 - 11 0 mmol/L [facility], [facility].; [place] [employer], [employer]. Cholesterol [Mass/Vol] 213 mg/dL Abnormal [facility].; [place] [employer] [facility] Cholesterol in HDL [Mass/Vol] 51 mg/dL Normal [facility].; [place] [employer] Cholesterol in LDL [Mass/Vol] 126 mg/dL Abnormal [place] [employer] [facility].; [place] [employer]. CO2 [Moles/Vol] 29 mmol/L Normal 20 - 32 mmol/L [facility].; [place] [employer], [facility] Creatinine [Mass/Vol] 0.70 mg/dL Normal 0.60 - 1.00 mg/dL [facility].; [place] [employer]. Free T4 [Mass/Vol] 1.1 ng/dL Normal 0.8 - 1.8 ng/dL [place] [employer] [facility].; [place] [employer] Work Phone: GFR/1.73 sq M.predicted among non-blacks MDRD (S/P/Bld) [Vol rate/Area] 91 mL/min/{1.73_m2} Normal [facility].; [place] [employer] Glucose [Mass/Vol] 91 mg/dL Normal 65 - 99 mg/dL [facility] [employer] [place] [employer] Potassium [Moles/Vol] 4.5 mmol/L Normal 3.5 - 5.3 mmol/L [facility]; [place] [employer] [facility] Protein [Mass/Vol] 7.1 g/dL Normal 6.1 - 8.1 g/dL [facility]; [place] [employer] [facility] Sodium [Moles/Vol] 139 mmol/L Normal 135 - 146 mmol/L [facility]; [place] [employer] [facility] Triglyceride [Mass/Vol] 216 mg/dL Abnormal [place] [employer] [facility]; [place] [employer] [facility] TSH Qn 4.86 m[IU]/L Abnormal 0.40 - 4.50 {mIU/L} [facility]; [place] [employer] [facility] Urea nitrogen [Mass/Vol] 14 mg/dL Normal 7 - 25 mg/dL [facility]; [place] [employer] [facility] No Panel Informationon 07-05 [id number] See Below Normal [facility]; [place] [employer] [facility] Work Phone: BUN/CREATININE RATIO SEE NOTE: Normal 6 - 22 [facility]; [place] [employer] [facility] CHOL/HDLC RATIO 4.2 Normal [facility]; [place] [employer] [facility] CLIENT CONTACT: ROVERTO LYNCH Normal [facility]; [place] [employer] [facility] Work Phone: GLOBULIN 2.9 Normal 1.9 - 3.7 [facility]; [place] [employer] [facility] NON HDL CHOLESTEROL 162 Abnormal [facility]; [employer] [facility] TEST CODE: 866SB Normal [place] [employer] [facility]; [place] [employer] Work Phone: TEST NAME: T4, FREE Normal [place] [employer] [facility]; [email or web address] Work Phone: VITAMIN D,25-OH,TOTAL,IA 36 ng/mL Normal 30 - 100 ng/mL [facility]; [employer] Final Surgical Pathology Rep [facility] 12-25-2023 Final Surgical Pathology Report . 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 INFLAMMATION OR TUMOR COMMENT: [facility] # [id number] CLINICAL INFORMATION: OSTEOARTHRITIS RIGHT KNEE SPECIMEN: A BONE RIGHT KNEE GROSS DESCRIPTION: All parts labelled with patient name and [id number] Received in formalin labelled right knee bone [...] Electronically Signed by Pathology Report verified by [facility] CALI EVANS Sign out Date: 12/25/2023 10:06 Performing Lab: [facility], [address] [place] [address] Pathology Dept Disclaimer If ancillary studies were utilized, the following Laboratory Developed Test (LDT) disclaimer will apply: Under CLIA requirements, [facility] Pathology Laboratory is qualified to perform high complexity testing. For all ancillary stains, positive and negative controls stain appropriately. Performance characteristics of immunohistochemical and chromogenic in-situ hybridization tests have been determined by [facility] Pathology Laboratory. These tests are used for clinical purposes, They should not be regarded as investigational or for research. Normal [facility] ([place] KNEE 2 VIEWS RTon 12-21-2023 KNEE 2 VIEWS [place] [address] Patient: JESSIKA CARRILLO Phone#: : 1950 Age: 73 Gender: F Pt. Type: Out Account: [id number] Location: 062 Ordering: [facility] Date: 12/21/2023/10:30 Family Phys: SHU CHOW Charge Code: 119161 Physician: Charlton Order #: [id number] Dose#: PROCEDURE: X-RAY KNEE RT 2 VIEWS COMPARISON: [facility], XR, KNEE COMPLETE RT MIN 4 [...] Santoyo MD on 12/21/2023 at 13:54 Normal [facility] BMP with eGFRon 12-01-2023 AGE 73 years Normal [facility] Comment on above: Performed By: #### 2 53962 #### [facility],[address] [place], [place] [id number] Anion gap [Moles/Vol] 11 mmol/L Normal 10 - 20 [facility] Comment on above: Performed By: #### 2 83430 #### [facility],[address] [place], [place] [id number] BMP with eGFR Normal [facility] Comment on above: Result Comment: BASI C METABOLIC PANEL Performed By: #### 2 73131 #### [address] [address] Calcium [Mass/Vol] 9.7 mg/dL Normal 8.5 - 10.1 [facility] Comment on above: Performed By: #### 2 31163 #### [facility],[address] [place] [address] Chloride [Moles/Vol] 103 mmol/L Normal 98 - 107 [facility] Comment on above: Performed By: #### 2 44676 #### [facility],[address] [place] [address] CO2 [Moles/Vol] 29.7 mmol/L Normal 21.0 - 32.0 [facility] Comment on above: Performed By: #### 2 58123 #### [facility],[address] [place] [address] Creatinine [Mass/Vol] 0.91 mg/dL Normal 0.55 - 1.02 [facility] Comment on above: Performed By: #### 2 55869 #### [facility],[address] [place] [address] 42496 eGFR 60 ML/MINUTE Normal 60 - 999 [facility] Comment on above: Performed By: #### 2 01005 #### [facility],[address] [place] [address] GFR/1.73 sq M.predicted among non-blacks MDRD (S/P/Bld) [Vol rate/Area] mL/min/{1.73_m2} Normal 60 - 999 [facility] Comment on above: Result Comment: ACCO RDING TO THE NATIONAL KIDNEY DISEASE EDUCATION PROGRAM(NKDE), A NORMAL eGFR IS A VALUE GREATER THAN OR EQUAL TO 60 ML/MIN/1.73 SQ METERS. CHRONIC KIDNEY DISEASE: <60mL/MIN/1.73 SQ METERS KIDNEY FAILURE: <15mL/MIN/1.73 SQ METERS THIS TEST SHOULD ONLY BE USED FOR PATIENTS 18 YEARS OF AGE AND OLDER. Performed By: #### 2 [id number] #### [facility],[address] [place] [address] 94714 Glucose [Mass/Vol] 98 mg/dL Normal 74 - 106 [facility] Comment on above: Performed By: #### 2 [id number] #### [facility],[address] [place] [address] 28016 Potassium [Moles/Vol] 3.9 mmol/L Normal 3.5 - 5.1 [facility] Comment on above: Performed By: #### 2 [id number] #### [address] [address] Sodium [Moles/Vol] 140 mmol/L Normal 136 - 145 [facility] Comment on above: Performed By: #### 2 [id number] #### [facility],[address] [place] [address] 88299 Urea nitrogen [Mass/Vol] 13 mg/dL Normal 7 - 18 [facility] Comment on above: Performed By: #### 2 [id number] #### [facility],[address] [place] [address] 75281 CBC + DIFFon 12-01-2023 Baso # 0.10 x10EE3/UL Normal 0.00 - 0.10 [facility] Comment on above: Performed By: #### 2 24078 #### [facility],[address] [place] [address] 71079 Basophils/100 WBC (Bld) 1.3 % Normal 0.0 - 2.0 [facility] Comment on above: Performed By: #### 2 81809 #### [facility],[address] [place] [address] 32980 CBC + DIFF Normal [facility] Comment on above: Result Comment: CBC- COMPLETE BLOOD COUNT Performed By: #### 2 [id number] #### [facility],[address] [place] [address] 05044 EO # 0.20 x10EE3/UL Normal 0.00 - 0.50 [facility] Comment on above: Performed By: #### 2 [id number] #### [facility],[address] [place] [address] 90994 Eosinophils/100 WBC (Bld) 2.9 % Normal 0.0 - 7.0 [facility] Comment on above: Performed By: #### 2 [id number] #### [facility],[address] [place] [address] 33578 Erythrocyte distribution width (RBC) [Ratio] 13.6 % Normal 12.0 - 15.6 [facility] Comment on above: Performed By: #### 2 41806 #### [facility],[address] [place] [address] 61147 Hematocrit (Bld) [Volume fraction] 46.6 % High 34.0 - 46.0 [facility] Comment on above: Performed By: #### 2 05667 #### [facility],[address] [place] [address] 71589 Hemoglobin (Bld) [Mass/Vol] 15.5 g/dL Normal 12.0 - 16.0 [facility] Comment on above: Performed By: #### 2 87574 #### [facility],[address] [place] [address] 29035 Lymph # 1.60 x10EE3/UL Normal 0.80 - 2.80 [facility] Comment on above: Performed By: #### 2 33412 #### [facility],[address] [place] [address] 78301 Lymphocytes/100 WBC (Bld) 21.4 % Normal 20.0 - 45.0 [facility] Comment on above: Performed By: #### 2 81839 #### [facility],[address] [place] [address] 18828 MANUAL DIFF N/A Normal [facility] Comment on above: Performed By: #### 2 01315 #### [facility],[address] [place] [address] 33499 MCH (RBC) [Entitic mass] 30 pg Normal 27 - 33 [facility] Comment on above: Performed By: #### 2 [id number] #### [facility],[address] [place] [address] 19002 MCHC 33 X10 3 Normal 32 - 36 [facility] Comment on above: Performed By: #### 2 [id number] #### [facility],[address] [place] [address] 09540 MCV (RBC) [Entitic vol] 91 fL Normal 80 - 99 [facility] Comment on above: Performed By: #### 2 72972 #### [facility],[address] [place] [address] 06296 [place] # 0.60 x10EE3/UL Normal 0.20 - 1.00 [facility] Comment on above: Performed By: #### 2 [id number] #### [facility],[address] [place] [address] 29325 MONOS % 7.5 % Normal 0.0 - 10.0 [facility] Comment on above: Performed By: #### 2 [id number] #### [facility],[address] [place] [address] 46866 Morphology Miguel (Bld) [Interp] N/A Normal [facility] Comment on above: Result Comment: {CD] Performed By: #### 2 [id number] #### [facility],[address] [place] [address] 06650 Neut # 4.90 x10EE3/UL Normal 1.50 - 7.10 [facility] Comment on above: Performed By: #### 2 25510 #### [facility],[address] [place] [address] 76697 Neutrophils/100 WBC (Bld) 66.9 % Normal 46.0 - 76.0 [facility] Comment on above: Performed By: #### 2 63889 #### [facility],[address] [place] [address] 69818 PLATELET 370 x10EE3/UL Normal 150 - 450 [facility] Comment on above: Performed By: #### 2 17942 #### [facility],[address] [place] [address] 57608 Platelet mean volume (Bld) [Entitic vol] 8.2 fL Normal 6.6 - 10.5 [facility] Comment on above: Result Comment: AUTO MATED DIFFERENTIAL Performed By: #### 2 [id number] #### [facility],[address] [place] [address] 41407 RBC 5.13 x 10EE6/UL Normal 4.10 - 5.30 [facility] Comment on above: Performed By: #### 2 02595 #### [facility],[address] [place] [address] 71022 WBC 7.3 x 10EE3/UL Normal 4.5 - 10.8 [facility] Comment on above: Performed By: #### 2 25926 #### [facility],[address] [place] [address] 85027 CHEST 2 VIEWSon 12-01-2023 CHEST [address] [address] Patient: JESSIKA CARRILLO Phone#: : [phone] Age: 73 Gender: F Pt. Type: Out Account: [id number] Location: [facility] Ordering: KALPESH BOLES Exam Date: 12/01/2023/9:37 Family Phys: SHU CHOW Charge Code: [id number] Physician: Charlton Order #: [id number] Dose#: PROCEDURE: X-RAY CHEST 2 VIEWS COMPARISON: [...] Granda MD on 12/01/2023 at 15:18 Normal [facility] Laboratory - Chemistry and C hemistry - challengeon 11-23-2023 Albumin [Mass/Vol] 4.2 g/dL Normal 3.6 - 5.1 g/dL [facility] Albumin/Globulin [Mass ratio] 1.6 {ratio} Normal 1.0 - 2.5 [facility], [facility]. ALP [Catalytic activity/Vol] 51 U/L Normal 37 - 153 U/L [facility].; [facility], [facility]. ALT [Catalytic activity/Vol] 52 U/L Abnormal 6 - 29 U/L [facility], [facility].; [facility], [facility]. AST [Catalytic activity/Vol] 54 U/L Abnormal 10 - 35 U/L [facility], [facility].; [facility], [facility]. Bilirubin [Mass/Vol] 0.4 mg/dL Normal 0.2 - 1 .2 mg/dL [facility], [facility].; [facility], [facility]. Calcium [Mass/Vol] 9.7 mg/dL Normal 8.6 - 10. 4 mg/dL [facility], [facility].; [place] [employer] [facility], [facility]. Chloride [Moles/Vol] 106 mmol/L Normal 98 - 11 0 mmol/L [facility], [facility].; [place] [employer] [facility], [employer]. CO2 [Moles/Vol] 22 mmol/L Normal 20 - 32 mmol/L [facility].; [place] [employer] [facility], [facility]. Creatinine [Mass/Vol] 0.76 mg/dL Normal 0.60 - 1.00 mg/dL [facility].; [place] [employer] [facility], [facility]. GFR/1.73 sq M.predicted among non-blacks MDRD (S/P/Bld) [Vol rate/Area] 82 mL/min/{1.73_m2} Normal [facility].; [facility], [facility]. Glucose [Mass/Vol] 96 mg/dL Normal 65 - 99 mg/dL [facility], [facility].; [place] [employer] [facility], [facility]. Potassium [Moles/Vol] 4.6 mmol/L Normal 3.5 - 5.3 mmol/L [facility].; [place] [employer] [facility], [facility]. Protein [Mass/Vol] 6.9 g/dL Normal 6.1 - 8.1 g/dL [facility], [facility].; [place] [employer] [facility] Sodium [Moles/Vol] 144 mmol/L Normal 135 - 146 mmol/L [facility].; [place] [employer] [facility], [facility]. Urea nitrogen [Mass/Vol] 17 mg/dL Normal 7 - 25 mg/dL [facility].; [place] [employer] [facility], [facility] Laboratory - Hematology and Cell countson 11-23-2023 Basophils (Bld) [#/Vol] 0.073 10*3/uL Normal 0 - 200 {cells/uL} [facility], [facility].; [facility], [facility] Basophils/100 WBC (Bld) 1.0 % Normal [facility].; [facility], [facility] Eosinophils (Bld) [#/Vol] 0.212 10*3/uL Normal 15 - 500 {cells/uL} [facility].; [place] [employer] [facility], [facility] Eosinophils/100 WBC (Bld) 2.9 % Normal [facility].; [place] [employer] [facility], [facility] Erythrocyte distribution width (RBC) [Ratio] 12.6 % Normal 11.0 - 15.0 % [facility].; [place] [employer] [facility], [facility] Hematocrit (Bld) [Volume fraction] 45.8 % Abnormal 35.0 - 45.0 % [facility].; [place] [employer], [facility] Hemoglobin (Bld) [Mass/Vol] 15.2 g/dL Normal 11.7 - 15.5 g/dL [facility].; [place] [employer] [facility], [facility]. Lymphocytes (Bld) [#/Vol] 1.927 10*3/uL Normal 850 - 3900 {cells/uL} [facility], [facility].; [place] [employer] [facility], [facility] Lymphocytes/100 WBC (Bld) 26.4 % Normal [facility].; [place] [employer], [facility]. MCH (RBC) [Entitic mass] 30.9 pg Normal 27.0 - 33.0 pg [place] [employer] [facility].; [place] [employer], [facility]. MCHC (RBC) [Mass/Vol] 33.2 g/dL Normal 32.0 - 36.0 g/dL [facility], [facility].; [place] [employer], [facility]. MCV (RBC) [Entitic vol] 93.1 fL Normal 80.0 - 100.0 fL [facility].; [place] [employer], [facility]. Monocytes (Bld) [#/Vol] 0.621 10*3/uL Normal 200 - 950 {cells/uL} [facility].; [place] [employer]. Monocytes/100 WBC (Bld) 8.5 % Normal [facility].; [facility], [employer]. Neutrophils (Bld) [#/Vol] 4.468 10*3/uL Normal 1500 - 7800 {cells/uL} [facility].; [place] [employer]. Neutrophils/100 WBC (Bld) 61.2 % Normal [facility].; [place] [employer]. Platelet mean volume (Bld) [Entitic vol] 11.0 fL Normal 7.5 - 12.5 fL [facility].; [place] [employer]. Platelets (Bld) [#/Vol] 360 10*3/uL Normal 140 - 400 [facility].; [place] [employer], [employer] RBC (Bld) [#/Vol] 4.92 10*6/uL Normal 3.80 - 5.10 {Million/u L} [facility].; [place] [employer], [employer]. WBC (Bld) [#/Vol] 7.3 10*3/uL Normal 3.8 - 10.8 [place] [email or web address] No Panel Informationon 11-23 BUN/CREATININE RATIO SEE NOTE: Normal - [facility].; [place] [employer] GLOBULIN 2.7 Normal 1.9 - 3.7 [place] [employer] [facility].; [place] [employer]. Laboratory - Chemistry and C hemistry - challengeon 07-20-2023 Albumin [Mass/Vol] 4.0 g/dL Normal 3.6 - 5.1 g/dL [place] [employer] [facility].; [place] [employer], [employer]. Albumin/Globulin [Mass ratio] 1.4 {ratio} Normal 1.0 - 2.5 [place] [employer] [facility].; [employer], [employer]. ALP [Catalytic activity/Vol] 47 U/L Normal 37 - 153 U/L [place] [employer] [facility].; [place] [employer]. ALT [Catalytic activity/Vol] 54 U/L Abnormal 6 - 29 U/L [facility].; [facility], [facility]. AST [Catalytic activity/Vol] 49 U/L Abnormal 10 - 35 U/L [facility], [facility].; [facility], [facility]. Bilirubin [Mass/Vol] 0.5 mg/dL Normal 0.2 - 1 .2 mg/dL [facility], [facility].; [facility], [facility]. Calcium [Mass/Vol] 9.6 mg/dL Normal 8.6 - 10. 4 mg/dL [facility], [facility].; [facility], [facility]. Chloride [Moles/Vol] 100 mmol/L Normal 98 - 11 0 mmol/L [facility], [facility].; [facility], [facility]. Cholesterol [Mass/Vol] 204 mg/dL Abnormal [facility].; [facility], [facility] Cholesterol in HDL [Mass/Vol] 67 mg/dL Normal [facility], [facility].; [facility], [facility] Cholesterol in LDL [Mass/Vol] 107 mg/dL Abnormal [facility], [facility].; [facility], [facility]. CO2 [Moles/Vol] 28 mmol/L Normal 20 - 32 mmol/L [facility], [facility].; [facility], [facility]. Creatinine [Mass/Vol] 0.83 mg/dL Normal 0.60 - 1.00 mg/dL [facility], [facility].; [facility], [facility]. GFR/1.73 sq M.predicted among non-blacks MDRD (S/P/Bld) [Vol rate/Area] 74 mL/min/{1.73_m2} Normal [facility], [facility].; [facility] Glucose [Mass/Vol] 96 mg/dL Normal 65 - 99 mg/dL [facility], [facility].; [facility], [facility]. Potassium [Moles/Vol] 3.9 mmol/L Normal 3.5 - 5.3 mmol/L [facility], [facility].; [facility] Protein [Mass/Vol] 6.9 g/dL Normal 6.1 - 8.1 g/dL [facility], [facility].; [facility] Sodium [Moles/Vol] 138 mmol/L Normal 135 - 146 mmol/L [facility] [email or web address] Triglyceride [Mass/Vol] 178 mg/dL Abnormal [facility].; [place] [employer] Urea nitrogen [Mass/Vol] 17 mg/dL Normal 7 - 25 mg/dL [place] [employer] [facility].; [email or web address] No Panel Informationon 07-20 BUN/CREATININE RATIO SEE NOTE: Normal 6 - 22 [facility].; [place] [employer] [facility] CHOL/HDLC RATIO 3.0 Normal [facility]; [place] [employer] GLOBULIN 2.9 Normal 1.9 - 3.7 [facility].; [email or web address] NON HDL CHOLESTEROL 137 Abnormal [facility]; [place] [employer] [facility] VITAMIN D,25-OH,TOTAL,IA 22 ng/mL Abnormal 30 - 100 ng/mL [facility].; [email or web address] Laboratory - Chemistry and C hemistry - challengeon 08-18-2022 Albumin [Mass/Vol] 4.0 g/dL Normal 3.6 - 5.1 g/dL [facility].; [employer], [employer]. Albumin/Globulin [Mass ratio] 1.3 {ratio} Normal 1.0 - 2.5 [place] [employer] [facility].; [place] [employer]. ALP [Catalytic activity/Vol] 60 U/L Normal 37 - 153 U/L [place] [employer] [facility].; [employer], [employer]. ALT [Catalytic activity/Vol] 37 U/L Abnormal 6 - 29 U/L [place] [employer] [facility].; [email or web address] AST [Catalytic activity/Vol] 34 U/L Normal 10 - 35 U/L [place] [employer] [facility].; [employer], [employer]. Bilirubin [Mass/Vol] 0.5 mg/dL Normal 0.2 - 1 .2 mg/dL [place] [employer] [facility].; [employer], [employer]. Calcium [Mass/Vol] 9.6 mg/dL Normal 8.6 - 10. 4 mg/dL [place] [employer] [facility].; [email or web address] Chloride [Moles/Vol] 98 mmol/L Normal 98 - 11 0 mmol/L [facility].; [facility], [facility]. Cholesterol [Mass/Vol] 225 mg/dL Abnormal [facility].; [facility], [facility]. Cholesterol in HDL [Mass/Vol] 57 mg/dL Normal [facility], [facility].; [facility] Cholesterol in LDL [Mass/Vol] 139 mg/dL Abnormal [facility], [facility].; [facility], [facility]. CO2 [Moles/Vol] 29 mmol/L Normal 20 - 32 mmol/L [facility], [facility].; [facility], [facility]. Creatinine [Mass/Vol] 0.67 mg/dL Normal 0.60 - 1.00 mg/dL [facility], [facility].; [facility], [facility]. GFR/1.73 sq M.predicted among non-blacks MDRD (S/P/Bld) [Vol rate/Area] 92 mL/min/{1.73_m2} Normal [facility], [facility].; [facility], [facility]. Glucose [Mass/Vol] 82 mg/dL Normal 65 - 99 mg/dL [facility], [facility].; [place] [employer] [facility], [facility]. Potassium [Moles/Vol] 4.4 mmol/L Normal 3.5 - 5.3 mmol/L [facility], [facility].; [place] [employer] [facility], [facility]. Protein [Mass/Vol] 7.2 g/dL Normal 6.1 - 8.1 g/dL [facility], [facility].; [place] [employer] Sodium [Moles/Vol] 136 mmol/L Normal 135 - 146 mmol/L [facility], [facility].; [place] [employer] [facility], [facility]. Triglyceride [Mass/Vol] 157 mg/dL Abnormal [facility].; [place] [employer] [facility], [facility]. Urea nitrogen [Mass/Vol] 11 mg/dL Normal 7 - 25 mg/dL [facility], [facility].; [place] [employer] [facility], [facility]. No Panel Informationon 08-18 BUN/CREATININE RATIO NOT APPLICABLE Normal 6 - 22 [facility], [facility].; [place] [employer] CHOL/HDLC RATIO 3.9 Normal [facility], [facility].; [place] [employer], [employer]. GLOBULIN 3.2 Normal 1.9 - 3.7 [facility].; [facility], [facility]. NON HDL CHOLESTEROL [address] [facility].; [facility], [facility] VITAMIN D,25-OH,TOTAL,IA 34 ng/mL Normal 30 - 100 ng/mL [facility].; [facility], [facility] Laboratory - Chemistry and C hemistry - challengeon 04-16-2022 Albumin [Mass/Vol] 4.0 g/dL Normal 3.6 - 5.1 g/dL [facility]; [facility], [facility] Albumin/Globulin [Mass ratio] 1.3 {ratio} Normal 1.0 - 2.5 [facility]; [facility], [facility] ALP [Catalytic activity/Vol] 58 U/L Normal 37 - 153 U/L [facility]; [facility], [facility]. ALT [Catalytic activity/Vol] 33 U/L Abnormal 6 - 29 U/L [facility].; [facility], [facility]. AST [Catalytic activity/Vol] 29 U/L Normal 10 - 35 U/L [facility].; [facility]. Bilirubin [Mass/Vol] 0.5 mg/dL Normal 0.2 - 1 .2 mg/dL [facility]; [facility], [facility]. Calcium [Mass/Vol] 9.2 mg/dL Normal 8.6 - 10. 4 mg/dL [facility].; [facility], [facility]. Chloride [Moles/Vol] 105 mmol/L Normal 98 - 11 0 mmol/L [facility].; [facility], [facility]. Cholesterol [Mass/Vol] 208 mg/dL Abnormal [facility]; [facility], [facility] Cholesterol in HDL [Mass/Vol] 57 mg/dL Normal [facility]; [facility], [facility] Cholesterol in LDL [Mass/Vol] 125 mg/dL Abnormal [facility].; [facility], [facility]. CO2 [Moles/Vol] 25 mmol/L Normal 20 - 32 mmol/L [facility].; [facility], [facility] Creatinine [Mass/Vol] 0.78 mg/dL Normal 0.60 - 0.93 mg/dL [facility].; [facility] GFR/1.73 sq M.predicted among blacks MDRD (S/P/Bld) [Vol rate/Area] 88 mL/min/{1.73_m2} Normal [facility]; [facility], [facility] Glucose [Mass/Vol] 98 mg/dL Normal 65 - 99 mg/dL [facility]; [facility], [facility] Potassium [Moles/Vol] 4.3 mmol/L Normal 3.5 - 5.3 mmol/L [facility]; [facility], [facility] Protein [Mass/Vol] 7.0 g/dL Normal 6.1 - 8.1 g/dL [facility]; [place] [employer] [facility], [facility] Sodium [Moles/Vol] 139 mmol/L Normal 135 - 146 mmol/L [facility]; [facility], [facility] Triglyceride [Mass/Vol] 145 mg/dL Normal [facility]; [place] [employer] [facility], [facility] Urea nitrogen [Mass/Vol] 13 mg/dL Normal 7 - 25 mg/dL [facility]; [place] [employer] [facility] No Panel Informationon 04-16 BUN/CREATININE RATIO NOT APPLICABLE Normal 6 - 22 [facility]; [place] [employer] [facility], [facility] CHOL/HDLC RATIO 3.6 Normal [facility]; [place] [employer] [facility], [facility] eGFR NON-AFR. BELIZEAN 76 Normal [facility]; [facility], [facility] GLOBULIN 3.0 Normal 1.9 - 3.7 [facility]; [facility], [facility] NON HDL CHOLESTEROL 151 Abnormal [facility]; [place] [employer] [facility] Laboratory - Chemistry and C hemistry - challengeon 04-11-2021 Albumin [Mass/Vol] 4.0 g/dL Normal 3.6 - 5.1 g/dL [facility].; [place] [employer] [facility], [facility] Albumin/Globulin [Mass ratio] 1.3 {ratio} Normal 1.0 - 2.5 [facility]; [place] [facility]. ALP [Catalytic activity/Vol] 67 U/L Normal 37 - 153 U/L [facility], [facility].; [facility], [facility]. ALT [Catalytic activity/Vol] 36 U/L Abnormal 6 - 29 U/L [facility].; [facility], [facility]. AST [Catalytic activity/Vol] 30 U/L Normal 10 - 35 U/L [facility].; [facility], [facility] Bilirubin [Mass/Vol] 0.4 mg/dL Normal 0.2 - 1 .2 mg/dL [facility].; [facility], [facility] Calcium [Mass/Vol] 9.6 mg/dL Normal 8.6 - 10. 4 mg/dL [facility]; [facility], [facility]. Chloride [Moles/Vol] 103 mmol/L Normal 98 - 11 0 mmol/L [facility], [facility].; [facility], [facility] Cholesterol [Mass/Vol] 247 mg/dL Abnormal [facility].; [facility], [facility] Cholesterol in HDL [Mass/Vol] 65 mg/dL Normal [facility]; [facility], [facility] Cholesterol in LDL [Mass/Vol] 163 mg/dL Abnormal [facility]; [facility], [facility]. CO2 [Moles/Vol] 28 mmol/L Normal 20 - 32 mmol/L [facility].; [facility], [facility] Creatinine [Mass/Vol] 0.73 mg/dL Normal 0.60 - 0.93 mg/dL [facility], [facility].; [facility], [facility]. GFR/1.73 sq M.predicted among blacks MDRD (S/P/Bld) [Vol rate/Area] 96 mL/min/{1.73_m2} Normal [facility], [facility].; [facility], [facility]. Glucose [Mass/Vol] 115 mg/dL Abnormal 65 - 99 mg/dL [facility], [facility].; [facility], [facility]. Potassium [Moles/Vol] 4.1 mmol/L Normal 3.5 - 5.3 mmol/L [facility], [facility].; [facility], [facility] Protein [Mass/Vol] 7.0 g/dL Normal 6.1 - 8.1 g/dL [facility]; [facility] Sodium [Moles/Vol] 139 mmol/L Normal 135 - 146 mmol/L [facility]; [facility] Triglyceride [Mass/Vol] 88 mg/dL Normal [facility]; [facility], [facility] Urea nitrogen [Mass/Vol] 16 mg/dL Normal 7 - 25 mg/dL [facility]; [facility] No Panel Informationon 04-11 BUN/CREATININE RATIO NOT APPLICABLE Normal 6 - 22 [facility]; [facility], [facility] CHOL/HDLC RATIO 3.8 Normal [facility]; [facility] eGFR NON-AFR. BELIZEAN 83 Normal [facility]; [facility] GLOBULIN 3.0 Normal 1.9 - 3.7 [facility]; [facility] NON HDL CHOLESTEROL 182 Abnormal [facility]; [facility] Laboratory - Hematology and Cell countson 01-23-2021 Basophils (Bld) [#/Vol] 0.062 10*3/uL Normal 0 - 200 {cells/uL} [facility]; [facility], [facility] Basophils/100 WBC (Bld) 0.8 % Normal [facility]; [facility], [facility] Eosinophils (Bld) [#/Vol] 0.3 10*3/uL Normal 15 - 500 {cells/uL} [facility]; [place] [employer] [facility], [facility] Eosinophils/100 WBC (Bld) 3.9 % Normal [facility]; [place] [employer] [facility], [facility] Erythrocyte distribution width (RBC) [Ratio] 13.3 % Normal 11.0 - 15.0 % [facility]; [facility], [facility] Hematocrit (Bld) [Volume fraction] 44.6 % Normal 35.0 - 45.0 % [facility]; [place] [employer] [facility], [facility] Hemoglobin (Bld) [Mass/Vol] 14.6 g/dL Normal 11.7 - 15.5 g/dL [facility].; [facility], [facility]. Lymphocytes (Bld) [#/Vol] 2.025 10*3/uL Normal 850 - 3900 {cells/uL} [facility], [facility].; [facility], [facility]. Lymphocytes/100 WBC (Bld) 26.3 % Normal [facility], [facility].; [facility], [facility]. MCH (RBC) [Entitic mass] 30.4 pg Normal 27.0 - 33.0 pg [facility].; [facility], [facility]. MCHC (RBC) [Mass/Vol] 32.7 g/dL Normal 32.0 - 36.0 g/dL [facility], [facility].; [facility], [facility]. MCV (RBC) [Entitic vol] 92.9 fL Normal 80.0 - 100.0 fL [facility], [facility].; [facility], [facility]. Monocytes (Bld) [#/Vol] 0.747 10*3/uL Normal 200 - 950 {cells/uL} [facility], [facility].; [place] [employer], [facility]. Monocytes/100 WBC (Bld) 9.7 % Normal [facility].; [facility], [facility]. Neutrophils (Bld) [#/Vol] 4.566 10*3/uL Normal 1500 - 7800 {cells/uL} [facility], [facility].; [facility], [facility]. Neutrophils/100 WBC (Bld) 59.3 % Normal [facility].; [facility], [facility]. Platelet mean volume (Bld) [Entitic vol] 9.7 fL Normal 7.5 - 12.5 fL [facility].; [facility], [facility]. Platelets (Bld) [#/Vol] 360 10*3/uL Normal 140 - 400 [facility].; [facility], [facility]. RBC (Bld) [#/Vol] 4.80 10*6/uL Normal 3.80 - 5.10 {Million/u L} [facility], [facility].; [place] [employer], [facility]. WBC (Bld) [#/Vol] 7.7 10*3/uL Normal 3.8 - 10.8 [facility].; [facility] Laboratory - Chemistry and C hemistry - challengeon 06-18-2020 Albumin [Mass/Vol] 3.9 g/dL Normal 3.6 - 5.1 g/dL [facility]; [facility], [facility] Albumin/Globulin [Mass ratio] 1.4 {ratio} Normal 1.0 - 2.5 [facility]; [facility], [facility] ALP [Catalytic activity/Vol] 62 U/L Normal 37 - 153 U/L [facility].; [facility], [facility]. ALT [Catalytic activity/Vol] 33 U/L Abnormal 6 - 29 U/L [facility]; [facility], [facility]. AST [Catalytic activity/Vol] 35 U/L Normal 10 - 35 U/L [facility].; [facility], [facility] Bilirubin [Mass/Vol] 0.4 mg/dL Normal 0.2 - 1 .2 mg/dL [facility].; [facility], [facility] Calcium [Mass/Vol] 9.5 mg/dL Normal 8.6 - 10. 4 mg/dL [facility], [facility].; [facility], [facility]. Chloride [Moles/Vol] 108 mmol/L Normal 98 - 11 0 mmol/L [facility].; [facility], [facility]. Cholesterol [Mass/Vol] 207 mg/dL Abnormal [facility]; [facility], [facility] Cholesterol in HDL [Mass/Vol] 53 mg/dL Normal [facility].; [facility], [facility]. Cholesterol in LDL [Mass/Vol] 128 mg/dL Abnormal [facility].; [facility], [facility] CO2 [Moles/Vol] 14 mmol/L Abnormal 20 - 32 mmol/L [facility].; [facility], [facility]. Creatinine [Mass/Vol] 0.82 mg/dL Normal 0.60 - 0.93 mg/dL [facility], [facility].; [place] [employer] [facility], [facility]. GFR/1.73 sq M.predicted among blacks MDRD (S/P/Bld) [Vol rate/Area] 84 mL/min/{1.73_m2} Normal [facility].; [place] [employer] [facility] Glucose [Mass/Vol] 87 mg/dL Normal 65 - 99 mg/dL [facility].; [place] [employer] [facility], [facility]. Potassium [Moles/Vol] 4.9 mmol/L Normal 3.5 - 5.3 mmol/L [facility].; [place] [employer], [employer] Protein [Mass/Vol] 6.6 g/dL Normal 6.1 - 8.1 g/dL [place] [employer] [facility].; [employer] Sodium [Moles/Vol] 140 mmol/L Normal 135 - 146 mmol/L [place] [employer] [facility].; [employer] Triglyceride [Mass/Vol] 151 mg/dL Abnormal [place] [employer] [facility]; [employer], [employer] Urea nitrogen [Mass/Vol] 13 mg/dL Normal 7 - 25 mg/dL [place] [employer] [facility]; [email or web address] No Panel Informationon 06-18 [id number] SEE NOTE Normal [facility]; [email or web address] Work Phone: BUN/CREATININE RATIO NOT APPLICABLE Normal 6 - 22 [facility]; [employer], [employer]. CHOL/HDLC RATIO 3.9 Normal [place] [employer] [facility]; [employer], [employer]. eGFR NON-AFR. BELIZEAN 72 Normal [facility]; [employer] EXTRA LAVENDER-TOP TUBE See Below Normal [place] [employer] [facility].; [employer] Work Phone: GLOBULIN 2.7 Normal 1.9 - 3.7 [place] [employer]; [employer], [employer] NON HDL CHOLESTEROL 154 Abnormal [facility] [employer] [facility].; [employer], [employer] Laboratory - Chemistry and C hemistry - challengeon 04-25-2019 25-hydroxyvitamin D3 [Mass/Vol] 30 ng/mL Normal 30 - 100 ng/mL [facility].; [employer], [employer] Albumin [Mass/Vol] 3.8 g/dL Normal 3.6 - 5.1 g/dL [facility].; [facility], [facility]. Albumin/Globulin [Mass ratio] 1.4 {ratio} Normal 1.0 - 2.5 [facility].; [facility], [facility] ALP [Catalytic activity/Vol] 64 U/L Normal 33 - 130 U/L [facility].; [facility], [facility] ALT [Catalytic activity/Vol] 25 U/L Normal 6 - 29 U/L [facility].; [facility], [facility]. AST [Catalytic activity/Vol] 21 U/L Normal 10 - 35 U/L [facility].; [facility], [facility] Bilirubin [Mass/Vol] 0.4 mg/dL Normal 0.2 - 1 .2 mg/dL [facility].; [facility], [facility] Calcium [Mass/Vol] 9.0 mg/dL Normal 8.6 - 10. 4 mg/dL [facility].; [facility], [facility] Chloride [Moles/Vol] 103 mmol/L Normal 98 - 11 0 mmol/L [facility].; [facility], [facility]. Cholesterol [Mass/Vol] 191 mg/dL Normal [facility]; [facility], [facility] Cholesterol in HDL [Mass/Vol] 54 mg/dL Normal [facility].; [facility], [facility]. Cholesterol in LDL [Mass/Vol] 112 mg/dL Abnormal 0 - 100 mg/dL [facility].; [facility], [facility] Cholesterol non HDL [Mass/Vol] 137 mg/dL Abnormal [facility].; [facility], [facility]. Cholesterol.total/Chol esterol in HDL [Mass ratio] 3.5 {ratio} Normal [facility].; [facility], [facility] CO2 [Moles/Vol] 26 mmol/L Normal 20 - 32 mmol/L [facility].; [facility], [facility]. Creatinine [Mass/Vol] 0.67 mg/dL Normal 0.50 - 0.99 mg/dL [facility], [facility].; [facility], [facility] GFR/1.73 sq M.predicted among blacks MDRD (S/P/Bld) [Vol rate/Area] 104 {ML/MIN/1.73M2} Normal [facility].; [facility]. GFR/1.73 sq M.predicted MDRD (S/P/Bld) [Vol rate/Area] 90 {ML/MIN/1.73M2} Normal [facility].; [place] [employer] [facility] Globulin (S) [Mass/Vol] 2.7 g/dL Normal 1.9 - 3.7 g/dL [facility].; [facility]. Glucose [Mass/Vol] 95 mg/dL Normal 65 - 99 mg/dL [facility]; [facility]. Potassium [Moles/Vol] 4.2 mmol/L Normal 3.5 - 5.3 mmol/L [facility]; [facility] Protein [Mass/Vol] 6.5 g/dL Normal 6.1 - 8.1 g/dL [facility].; [facility]. Sodium [Moles/Vol] 136 mmol/L Normal 135 - 146 mmol/L [facility].; [facility]. Triglyceride [Mass/Vol] 137 mg/dL Normal [facility]; [place] [employer] [facility]. Urea nitrogen [Mass/Vol] 19 mg/dL Normal 7 - 25 mg/dL [facility]; [place] [employer] [facility], [facility] Urea nitrogen/Creatinine [Mass ratio] 28.8 mg/mg Abnormal 6 - 22 [facility]; [place] [employer] [facility] Laboratory - Chemistry and C hemistry - challengeon 10-04-2018 Bilirubin Ql (U) Negative Normal [facility].; [place] [employer] [facility] Ketones Ql (U) Negative Normal [facility].; [place] [employer] [facility]. pH (U) 6.0 [pH] Normal [facility].; [place] [employer] [facility], [facility]. Specific gravity (U) [Rel density] 1.025 Normal [facility].; [place] [employer] [facility] Urobilinogen Qn (U) 0.2 mg/dL Normal [facility].; [employer] Laboratory - Hematology and Cell countson 10-04-2018 Hemoglobin Ql (U) trace, hemolyzed Abnormal [facility] [employer] Laboratory - Specimen inform ationon 10-04-2018 Appearance (U) clear Normal [employer].; [employer] Color (U) yellow Normal [employer] Laboratory - Urinalysison Glucose Test strip (U) [Mass/Vol] Negative Normal [employer]. Leukocyte esterase Test strip Ql (U) small Abnormal [employer] Nitrite Ql (U) Negative Normal [employer].; [employer] Protein Ql (U) 30 mg/dL Abnormal [employer] Laboratory - Chemistry and C hemistry - challengeon 11-09-2017 Bilirubin Ql (U) Negative Normal [employer] Ketones Ql (U) Negative Normal [employer].; [employer] pH (U) 7.0 [pH] Normal [employer] [employer] Specific gravity (U) [Rel density] 1.020 Normal [employer].; [employer]. Urobilinogen Qn (U) 0.2 mg/dL Normal [facility].; [employer] Laboratory - Hematology and Cell countson 11-09-2017 Hemoglobin Ql (U) Negative Normal [employer].; [employer] Laboratory - Specimen inform ationon 11-09-2017 Appearance (U) cloudy Abnormal [employer] Color (U) yellow Normal [employer].; [employer] Laboratory - Urinalysison Glucose Test strip (U) [Mass/Vol] Negative Normal [employer].; [employer] Leukocyte esterase Test strip Ql (U) small Abnormal [employer] Nitrite Ql (U) Negative Normal [facility].; [place] [employer] [facility] Protein Ql (U) Negative Normal [facility].; [facility]. Cardiac Troponin-Ion 017 Troponin I.cardiac mass conc ng/mL Normal < 45.0 [facility] Comment on above: Result Comment: Elev ation [...] ####Unless otherwise noted, all testing performed by [address] [phone]: [id number] Director: [place] M.D. Culture, Urineon 10-26-2017 [...] 1 FTrimeth/Sulfa S <= 20 F Normal [facility] Comment on above: Performed By: #### C BCDIF, PT, CMET, EDCTNI, LIPASE ####Unless otherwise noted, all testing performed by [address] [phone]: [id number] Director: [place] M.D. Lipid Panelon 10-26-2017 Cholesterol 188 mg/dL Normal 100-199 [facility] Comment on above: Performed By: #### T SH, CTNI, LIPID ####Unless otherwise noted, all testing performed by [address] [phone]: [id number] Director: Robin [place] M.D. Cholesterol in VLDL mass conc 25 mg/dL Normal 5-40 [facility] Comment on above: Performed By: #### T SH, CTNI, LIPID ####Unless otherwise noted, all testing performed by [address] [phone]: [id number] Director: Robin Hills M.D. Cholesterol to HDL Ratio 3.2 {ratio} Normal 3.2-4.5 [facility] Comment on above: Result Comment: Bijan le Coronary Heart Disease Risk Factor (CHDRF):Average risk= 4.41/2 Average risk= 3.32 times Average risk= 7.1 Performed By: #### T SH, CTNI, LIPID ####Unless otherwise noted, all testing performed by [address] [phone]: [id number] Director: Robin [place] M.D. HDL Cholesterol 59 mg/dL Normal 40-59 [facility] Comment on above: Performed By: #### T SH, CTNI, LIPID ####Unless otherwise noted, all testing performed by [address] [phone]: [id number] Director: Robin [place] M.D. LDL Cholesterol 104 mg/dL Normal 10-150 [facility] Comment on above: Performed By: #### T SH, CTNI, LIPID ####Unless otherwise noted, all testing performed by [address] [phone]: [id number] Director: Robin [place] M.D. Triglyceride 123 mg/dL Normal 30-150 [facility] Comment on above: Performed By: #### T SH, CTNI, LIPID ####Unless otherwise noted, all testing performed by [address] [phone]: [id number] Director: Robin [place] M.D. Troponin I.cardiac mass conc No Biomarker evidence of myocardial injury within the past 14 hours. Normal [facility] Comment on above: Performed By: #### T SH, CTNI, LIPID ####Unless otherwise noted, all testing performed by [address] [phone]: [id number] Director: Robin [place] M.D. TSHon 10-26-2017 Thyroid stimulating hormone (TSH) 3.53 uIU/mL Normal 0.32-5.00 [facility] Comment on above: Result Comment: Samp les from patients routinely receiving high dose biotin therapy(100-300 mg/day) may show falsely decreased results. Please correlateclinically. Performed By: #### T SH, CTNI, LIPID ####Unless otherwise noted, all testing performed by [address] [phone]: [id number] Director: Robin [place] M.D. Urine with Indicated Culture on 10-26-2017 Bilirubin,Urine Negative Normal NEG;NEGATI VE [facility] Comment on above: Performed By: #### C BCDIF, PT, CMET, EDCTNI, LIPASE ####Unless otherwise noted, all testing performed by [facility] [address] [phone]: [id number] Director: Robin [place] M.D. Blood,Urine Negative Normal NEG;NEGATI VE [facility] Comment on above: Performed By: #### C BCDIF, PT, CMET, EDCTNI, LIPASE ####Unless otherwise noted, all testing performed by [address] [phone]: [id number] Director: Robin [place] M.D. Ketone,Urine Negative Normal NEGATIVE;N EG [facility] Comment on above: Performed By: #### C BCDIF, PT, CMET, EDCTNI, LIPASE ####Unless otherwise noted, all testing performed by [address] [phone]: [id number] Director: Robin [place] M.D. Leuk.Esterase,Urine Small Abnormal Negative [facility] Comment on above: Performed By: #### C BCDIF, PT, CMET, EDCTNI, LIPASE ####Unless otherwise noted, all testing performed by [address] [phone]: [id number] Director: Robin [place] M.D. Mucus, Urine Few Abnormal None Seen [facility] Comment on above: Performed By: #### C BCDIF, PT, CMET, EDCTNI, LIPASE ####Unless otherwise noted, all testing performed by [address] [phone]: [id number] Director: Robin Hills M.D. Nitrite,Urine Positive Abnormal NEG;NEGATI VE [facility] Comment on above: Performed By: #### C BCDIF, PT, CMET, EDCTNI, LIPASE ####Unless otherwise noted, all testing performed by [address] [phone]: [id number] Director: Robin [place] M.D. Protein,Urine Negative Normal NEGATIVE;N EG [facility] Comment on above: Performed By: #### C BCDIF, PT, CMET, EDCTNI, LIPASE ####Unless otherwise noted, all testing performed by [address] [phone]: [id number] Director: Robin Hills M.D. Specific [place],Urine 1.010 Normal 1.003 -1.02 9 [facility] Comment on above: Performed By: #### C BCDIF, PT, CMET, EDCTNI, LIPASE ####Unless otherwise noted, all testing performed by [address] [phone]: [id number] Director: Robin Hills M.D. Squamous Epithelial 5-10 Abnormal 0-3+;NS [facility] Comment on above: Performed By: #### C BCDIF, PT, CMET, EDCTNI, LIPASE ####Unless otherwise noted, all testing performed by [address] [phone]: [id number] Director: Robin Hills M.D. Urine, bacteria in sediment Many Abnormal NS;RARE [facility] Comment on above: Performed By: #### C BCDIF, PT, CMET, EDCTNI, LIPASE ####Unless otherwise noted, all testing performed by [address] [phone]: [id number] Director: Robin Hills M.D. Urine, character Slightly Cloudy Normal [facility] Comment on above: Performed By: #### C BCDIF, PT, CMET, EDCTNI, LIPASE ####Unless otherwise noted, all testing performed by [address] [phone]: [id number] Director: Robin Hills M.D. Urine, color Yellow Normal [facility] Comment on above: Performed By: #### C BCDIF, PT, CMET, EDCTNI, LIPASE ####Unless otherwise noted, all testing performed by [address] [phone]: [id number] Director: Robin Hills M.D. Urine, erythrocytes in sediment by area 0-3 Normal 0-3+;NS [facility] Comment on above: Performed By: #### C BCDIF, PT, CMET, EDCTNI, LIPASE ####Unless otherwise noted, all testing performed by [address] [phone]: [id number] Director: Robin Hills M.D. Urine, glucose presence Negative Normal NEG;NEGATI VE [facility] Comment on above: Performed By: #### C BCDIF, PT, CMET, EDCTNI, LIPASE ####Unless otherwise noted, all testing performed by [address] [phone]: [id number] Director: Robin Hills M.D. Urine, leukocytes in sedmiment 40-60 Abnormal 0-3+;3-5+; NS [facility] Comment on above: Performed By: #### C BCDIF, PT, CMET, EDCTNI, LIPASE ####Unless otherwise noted, all testing performed by [address] [phone]: [id number] Director: Robin Hills M.D. Urine, pH 6.5 [pH] Normal 4.5-8.0 [facility] Comment on above: Performed By: #### C BCDIF, PT, CMET, EDCTNI, LIPASE ####Unless otherwise noted, all testing performed by [address] [phone]: [id number] Director: Robin Hills M.D. Urobilinogen,Urine 0.2 EU/dL Normal 0.2 [facility] Comment on above: Performed By: #### C BCDIF, PT, CMET, EDCTNI, LIPASE ####Unless otherwise noted, all testing performed by [address] [phone]: [id number] Director: Robin Hills M.D. CBC with Diffon 10-25-2017 Basophils Auto #/vol (Bld) 0.1 K/mcL Normal 0-0.2 [facility] Comment on above: Performed By: #### C BCDIF, PT, CMET, EDCTNI, LIPASE ####Unless otherwise noted, all testing performed by [address] [phone]: [id number] Director: Robin Hills M.D. Basophils/100 WBC Auto (Bld) 0.7 % Normal [facility] Comment on above: Performed By: #### C BCDIF, PT, CMET, EDCTNI, LIPASE ####Unless otherwise noted, all testing performed by [address] [phone]: [id number] Director: Robin Hills M.D. Eosinophils 0.2 K/mcL Normal 0-0.5 [facility] Comment on above: Performed By: #### C BCDIF, PT, CMET, EDCTNI, LIPASE ####Unless otherwise noted, all testing performed by [address] [phone]: [id number] Director: Robin Hills M.D. Eosinophils/100 leukocytes 2.0 % Normal [facility] Comment on above: Performed By: #### C BCDIF, PT, CMET, EDCTNI, LIPASE ####Unless otherwise noted, all testing performed by [address] [phone]: [id number] Director: Robin Hills M.D. Erythrocyte distribution width Auto Ratio (RBC) 13.3 % Normal 10-14.4 [facility] Comment on above: Performed By: #### C BCDIF, PT, CMET, EDCTNI, LIPASE ####Unless otherwise noted, all testing performed by [address] [phone]: [id number] Director: Robin Hills M.D. Erythrocytes (RBC) 4.57 M/mcL Normal 3.7-5.0 [facility] Comment on above: Performed By: #### C BCDIF, PT, CMET, EDCTNI, LIPASE ####Unless otherwise noted, all testing performed by [address] [phone]: [id number] Director: Robin Hills M.D. Hematocrit (HCT) 41.4 % Normal 34.4-44.8 [facility] Comment on above: Performed By: #### C BCDIF, PT, CMET, EDCTNI, LIPASE ####Unless otherwise noted, all testing performed by [address] [phone]: [id number] Director: Robin Hills M.D. Hemoglobin mass conc (Bld) 13.7 g/dL Normal 11.6-15.4 [facility] Comment on above: Performed By: #### C BCDIF, PT, CMET, EDCTNI, LIPASE ####Unless otherwise noted, all testing performed by [place] [phone]: [id number] Director: Robin Hills M.D. Lymphocytes 2.0 K/mcL Normal 1.0-3.7 [facility] Comment on above: Performed By: #### C BCDIF, PT, CMET, EDCTNI, LIPASE ####Unless otherwise noted, all testing performed by [address] [phone]: [id number] Director: Robin Hills M.D. Lymphocytes/100 leukocytes 21.3 % Normal [facility] Comment on above: Performed By: #### C BCDIF, PT, CMET, EDCTNI, LIPASE ####Unless otherwise noted, all testing performed by [address] [phone]: [id number] Director: Robin Hills M.D. MCH 30.0 pg Normal 27.9-33.9 [facility] Comment on above: Performed By: #### C BCDIF, PT, CMET, EDCTNI, LIPASE ####Unless otherwise noted, all testing performed by [address] [phone]: [id number] Director: Robin Hills M.D. MCHC mass conc (RBC) 33.2 g/dL Normal 33.1-35.1 [facility] Comment on above: Performed By: #### C BCDIF, PT, CMET, EDCTNI, LIPASE ####Unless otherwise noted, all testing performed by [address] [phone]: [id number] Director: Robin Hills M.D. MCV 90.5 fL Normal 82.6-98.9 [facility] Comment on above: Performed By: #### C BCDIF, PT, CMET, EDCTNI, LIPASE ####Unless otherwise noted, all testing performed by [address] [phone]: [id number] Director: Robin Hills M.D. Monocytes 0.7 K/mcL High 0.1-0.6 [facility] Comment on above: Performed By: #### C BCDIF, PT, CMET, EDCTNI, LIPASE ####Unless otherwise noted, all testing performed by [address] [phone]: [id number] Director: Robin Hills M.D. Monocytes/100 leukocytes 7.1 % Normal [facility] Comment on above: Performed By: #### C BCDIF, PT, CMET, EDCTNI, LIPASE ####Unless otherwise noted, all testing performed by [address] [phone]: [id number] Director: Robin Hills M.D. Neutrophils 6.3 K/mcL Normal 1.2-6.9 [facility] Comment on above: Performed By: #### C BCDIF, PT, CMET, EDCTNI, LIPASE ####Unless otherwise noted, all testing performed by [address] [phone]: [id number] Director: Robin Hills M.D. Platelet mean volume (PMV) 7.6 fL Normal 7.0-10.6 [facility] Comment on above: Performed By: #### C BCDIF, PT, CMET, EDCTNI, LIPASE ####Unless otherwise noted, all testing performed by [address] [phone]: [id number] Director: Robin Hills M.D. Platelets 314 K/mcL Normal 162-402 [facility] Comment on above: Performed By: #### C BCDIF, PT, CMET, EDCTNI, LIPASE ####Unless otherwise noted, all testing performed by [address] [phone]: [id number] Director: Robin Hills M.D. Segmented Neut % 68.9 % Normal [facility] Comment on above: Performed By: #### C BCDIF, PT, CMET, EDCTNI, LIPASE ####Unless otherwise noted, all testing performed by [address] [phone]: [id number] Director: Robin Hills M.D. WBC (Leukocytes) 9.2 K/mcL Normal 3.4-10.6 [facility] Comment on above: Performed By: #### C BCDIF, PT, CMET, EDCTNI, LIPASE ####Unless otherwise noted, all testing performed by [address] [phone]: [id number] Director: Robin Hills M.D. CHEST (ONE VIEW ONLY)on 10-03 CHEST (ONE VIEW ONLY) Final ReportAccession No: [id number] Performed: Oct 25 2017 3:25PMExamination: CHEST (ONE VIEW ONLY)Vomiting and/or nauseaCHEST (ONE VIEW ONLY) 10/25/2017 3:25 PMFINDINGS: The lungs are well-expanded. There is groundglass density atthe left lung base. There is subtle blunting of the costophrenic sulci.Cardiac silhouette is enlarged. There is moderate thoracic spondylosis.No pneumothorax.IMPRESSION:1. Small bilateral pleural effusions.2. Borderline enlargement of cardiac silhouette.Interpreting Physician: UBALDO CHÁVEZ M.D.Trans: : cc: Normal [facility] CT BRAIN W/O CONTRASTon 10-03 CT BRAIN W/O CONTRAST Final ReportAccession No: [id number] Performed: Oct 25 2017 5:11PMExamination: CT [...] Report Signed: 10/26/2017 6:39:08 PMInterpreting Physician: FELIPE,Trans: [id number] : cc: Normal [facility] Comprehensive Metabolic Pane anish 10-25-2017 Alanine aminotransferase (ALT) 42 U/L Normal 14-65 [facility] Comment on above: Result Comment: This test result might be falsely depressed or falsely elevated onsamples drawn from patients taking Sulfasalazine and Sulfapyridine.Venipuncture should occur prior to taking either of these drugs. Performed By: #### C BCDIF, PT, CMET, EDCTNI, LIPASE ####Unless otherwise noted, all testing performed by [address] [phone]: [id number] Director: Robin Hills M.D. Albumin 3.2 g/dL Normal 3.2-5.2 [facility] Comment on above: Performed By: #### C BCDIF, PT, CMET, EDCTNI, LIPASE ####Unless otherwise noted, all testing performed by [address] [phone]: [id number] Director: Robin Hills M.D. Alkaline phosphatase (ALP) 72 U/L Normal 40-150 [facility] Comment on above: Performed By: #### C BCDIF, PT, CMET, EDCTNI, LIPASE ####Unless otherwise noted, all testing performed by [address] [phone]: [id number] Director: Robin Hills M.D. Aspartate aminotransferase (AST) 38 U/L Normal 0-45 [facility] Comment on above: Result Comment: This test result might be falsely depressed or falsely elevated onsamples drawn from patients taking Sulfasalazine and Sulfapyridine.Venipuncture should occur prior to taking either of these drugs. Performed By: #### C BCDIF, PT, CMET, EDCTNI, LIPASE ####Unless otherwise noted, all testing performed by [address] [phone]: [id number] Director: Robin Hills M.D. Bilirubin (total) 0.4 mg/dL Normal 0.3-1.2 [facility] Comment on above: Performed By: #### C BCDIF, PT, CMET, EDCTNI, LIPASE ####Unless otherwise noted, all testing performed by [address] [phone]: [id number] Director: Robin Hills M.D. Calcium 8.9 mg/dL Normal 8.4-10.2 [facility] Comment on above: Performed By: #### C BCDIF, PT, CMET, EDCTNI, LIPASE ####Unless otherwise noted, all testing performed by [address] [phone]: [id number] Director: Robin Hills M.D. Chloride 105 mmol/L Normal 98-108 [facility] Comment on above: Performed By: #### C BCDIF, PT, CMET, EDCTNI, LIPASE ####Unless otherwise noted, all testing performed by [address] [phone]: [id number] Director: Robin Hills M.D. CO2 24 mmol/L Normal 21-32 [facility] Comment on above: Performed By: #### C BCDIF, PT, CMET, EDCTNI, LIPASE ####Unless otherwise noted, all testing performed by [address] [phone]: [id number] Director: Robin Hills M.D. Creatinine 0.89 mg/dL Normal 0.60-1.20 [facility] Comment on above: Performed By: #### C BCDIF, PT, CMET, EDCTNI, LIPASE ####Unless otherwise noted, all testing performed by [address] [phone]: [id number] Director: Robin Hills M.D. eGFR (black) mL/min/{1.73_m2} Normal [facility] Comment on above: Result Comment: Afri can [place] GFR Calc Performed By: #### C BCDIF, PT, CMET, EDCTNI, LIPASE ####Unless otherwise noted, all testing performed by [address] [phone]: [id number] Director: Robin Hills M.D. eGFR (non-black) mL/min/{1.73_m2} Normal [facility] Comment on above: Result Comment: Non- GFR [...] ####Unless otherwise noted, all testing performed by [address] [phone]: [id number] Director: Robin Hills M.D. Glucose mass conc 135 mg/dL High 70-99 [facility] Comment on above: Result Comment: This test result might be falsely depressed or falsely elevated onsamples drawn from patients taking Sulfasalazine and Sulfapyridine.Venipuncture should occur prior to taking either of these drugs. Performed By: #### C BCDIF, PT, CMET, EDCTNI, LIPASE ####Unless otherwise noted, all testing performed by [address] [phone]: [id number] Director: Robin Hills M.D. Potassium molar conc 3.8 mmol/L Normal 3.5-5.1 [facility] Comment on above: Performed By: #### C BCDIF, PT, CMET, EDCTNI, LIPASE ####Unless otherwise noted, all testing performed by [address] [phone]: [id number] Director: Robin Hills M.D. Protein 7.6 g/dL Normal 6.0-8.0 [facility] Comment on above: Performed By: #### C BCDIF, PT, CMET, EDCTNI, LIPASE ####Unless otherwise noted, all testing performed by [address] [phone]: [id number] Director: Robin Hills M.D. Sodium 138 mmol/L Normal 135-145 [facility] Comment on above: Performed By: #### C BCDIF, PT, CMET, EDCTNI, LIPASE ####Unless otherwise noted, all testing performed by [address] [phone]: [id number] Director: Robin Hills M.D. Urea nitrogen 12 mg/dL Normal 8-25 [facility] Comment on above: Performed By: #### C BCDIF, PT, CMET, EDCTNI, LIPASE ####Unless otherwise noted, all testing performed by [address] [phone]: [id number] Director: Robin Hills M.D. ED Cardiac Troponin-Ion 10-03 Troponin I.cardiac mass conc ng/mL Normal < 45 [facility] Comment on above: Result Comment: Elev ation [...] ####Unless otherwise noted, all testing performed by [address] [phone]: [id number] Director: Robin Hills M.D. Influenza A,B Rapid Molecula dot 10-25-2017 Influenza A Rapid Molecular Not Detected Normal Not Detected [facility] Comment on above: Performed By: #### F LUNAT ####Unless otherwise noted, all testing performed by [address] [phone]: [id number] Director: Robin Hills M.D. Influenza B Rapid Molecular Not Detected Normal Not Detected [facility] Comment on above: Performed By: #### F LUNAT ####Unless otherwise noted, all testing performed by [address] [phone]: [id number] Director: Robin Hills M.D. Lipaseon 10-25-2017 Lipase 115 U/L Normal 73-393 [facility] Comment on above: Performed By: #### C BCDIF, PT, CMET, EDCTNI, LIPASE ####Unless otherwise noted, all testing performed by [address] [phone]: [id number] Director: Robin Hills M.D. Protimeon 10-25-2017 INR Coag RelTime (PPP) 0.90 {INR} Normal [facility] Comment on above: Result Comment: The [place] [employer] recommended therapeutic rangefor Warfarin (Coumadin) therapy goals:PROPHYLAXIS/TREATMENT of:INRVenous Thrombosis, Pulmonary Embolism2.0-3.0Prevention of VTE (Orthopedic Surgery)2.0-3.0Atrial Fibrillation2.0-3.0Myocardial Infarction2.0-3.0Mechanical Prosthetic Heart Valves (Aortic position)2.0-3.0Mechanical Prosthetic Heart Valves (Mitral Position)2.5-3.5American College of Chest Physicians evidence-based clinical practiceguidelines. CHEST. 2012 (9th ed) Performed By: #### C BCDIF, PT, CMET, EDCTNI, LIPASE ####Unless otherwise noted, all testing performed by [address] [phone]: [id number] Director: Robin Hills M.D. Prothrombin time (PT) Coag time (PPP) 11.8 s Normal 11.8-14.3 [facility] Comment on above: Performed By: #### C BCDIF, PT, CMET, EDCTNI, LIPASE ####Unless otherwise noted, all testing performed by [address] [phone]: [id number] Director: Robin Hills M.D. Laboratory - Chemistry and C hemistry - challengeon 04-29-2017 Albumin [Mass/Vol] 3.9 g/dL Normal 3.6 - 5.1 g/dL [facility] [employer], [employer]. Albumin/Globulin [Mass ratio] 1.3 {ratio} Normal 1.0 - 2.5 [facility], [employer].; [place] [employer], [employer]. ALP [Catalytic activity/Vol] 69 U/L Normal 33 - 130 U/L [place] [employer] [facility].; [place] [employer], [employer]. ALT [Catalytic activity/Vol] 27 U/L Normal 6 - 29 U/L [place] [employer].; [place] [employer], [employer]. AST [Catalytic activity/Vol] 26 U/L Normal 10 - 35 U/L [place] [employer].; [employer], [employer]. Bilirubin [Mass/Vol] 0.4 mg/dL Normal 0.2 - 1 .2 mg/dL [place] [employer].; [employer], [employer]. Calcium [Mass/Vol] 9.2 mg/dL Normal 8.6 - 10. 4 mg/dL [place] [employer].; [employer], [employer]. Chloride [Moles/Vol] 102 mmol/L Normal 98 - 11 0 mmol/L [place] [employer] [facility] [employer], [employer]. Cholesterol [Mass/Vol] 193 mg/dL Normal 125 - 200 mg/dL [place] [employer], [employer].; [employer], [employer]. Cholesterol in HDL [Mass/Vol] 61 mg/dL Normal [place] [employer] Cholesterol in LDL [Mass/Vol] 109 mg/dL Normal [employer], [employer]. Cholesterol non HDL [Mass/Vol] 132 mg/dL Normal [employer], [employer]. Cholesterol.total/Chol esterol in HDL [Mass ratio] 3.2 {ratio} Normal [employer], [employer].; [employer], [employer]. CO2 [Moles/Vol] 27 mmol/L Normal 20 - 31 mmol/L [place] [employer].; [employer], [employer]. Creatinine [Mass/Vol] 0.68 mg/dL Normal 0.50 - 0.99 mg/dL [facility].; [place] [employer] [facility], [facility]. GFR/1.73 sq M.predicted among blacks MDRD (S/P/Bld) [Vol rate/Area] 105 {ML/MIN/1.73M2} Normal [facility], [facility].; [facility], [facility]. GFR/1.73 sq M.predicted MDRD (S/P/Bld) [Vol rate/Area] 91 {ML/MIN/1.73M2} Normal [facility], [facility].; [place] [employer], [facility]. Globulin (S) [Mass/Vol] 2.9 g/dL Normal 1.9 - 3.7 g/dL [facility].; [place] [employer], [employer]. Glucose [Mass/Vol] 81 mg/dL Normal 65 - 99 mg/dL [facility], [facility].; [place] [employer], [employer]. Potassium [Moles/Vol] 4.2 mmol/L Normal 3.5 - 5.3 mmol/L [facility].; [place] [employer], [employer]. Protein [Mass/Vol] 6.8 g/dL Normal 6.1 - 8.1 g/dL [facility], [facility].; [employer], [employer]. Sodium [Moles/Vol] 138 mmol/L Normal 135 - 146 mmol/L [facility].; [employer], [employer]. Triglyceride [Mass/Vol] 117 mg/dL Normal [place] [employer] [facility], [facility].; [employer], [employer]. Urea nitrogen [Mass/Vol] 17 mg/dL Normal 7 - 25 mg/dL [facility].; [employer], [employer]. Urea nitrogen/Creatinine [Mass ratio] 25.0 mg/mg Abnormal 6 - 22 [facility].; [employer], [employer]. Laboratory - Chemistry and C hemistry - challengeon 04-24-2016 25-hydroxyvitamin D3 [Mass/Vol] 31 ng/mL Normal 30 - 100 ng/mL [facility].; [employer] Calcium [Mass/Vol] 9.5 mg/dL Normal 8.6 - 10. 4 mg/dL [facility].; [facility] [facility]. Chloride [Moles/Vol] 105 mmol/L Normal 98 - 11 0 mmol/L [facility].; [facility]. CO2 [Moles/Vol] 15 mmol/L Abnormal 19 - 30 mmol/L [facility].; [facility] Creatinine [Mass/Vol] 0.65 mg/dL Normal 0.50 - 0.99 mg/dL [facility].; [facility], [facility]. GFR/1.73 sq M.predicted among blacks MDRD (S/P/Bld) [Vol rate/Area] 107 {ML/MIN/1.73M2} Normal [facility].; [facility], [facility] GFR/1.73 sq M.predicted MDRD (S/P/Bld) [Vol rate/Area] 93 {ML/MIN/1.73M2} Normal [facility].; [place] [employer] [facility] Glucose [Mass/Vol] 81 mg/dL Normal 65 - 99 mg/dL [facility].; [facility], [facility]. Potassium [Moles/Vol] 4.7 mmol/L Normal 3.5 - 5.3 mmol/L [facility].; [facility], [facility]. Sodium [Moles/Vol] 138 mmol/L Normal 135 - 146 mmol/L [facility].; [place] [employer] [facility], [facility]. Urea nitrogen [Mass/Vol] 17 mg/dL Normal 7 - 25 mg/dL [facility].; [facility], [facility] Urea nitrogen/Creatinine [Mass ratio] 26.8 mg/mg Abnormal 6 - 22 [facility].; [place] [employer] [facility], [facility]. Laboratory - Chemistry and C hemistry - challengeon 10-03-2015 25-hydroxyvitamin D3 [Mass/Vol] 22 ng/mL Abnormal 30 - 100 ng/mL [facility].; [place] [employer] [facility], [facility]. Albumin [Mass/Vol] 3.9 g/dL Normal 3.6 - 5.1 g/dL [facility].; [place] [employer], [facility] Albumin/Globulin [Mass ratio] 1.2 {ratio} Normal 1.0 - 2.5 [facility].; [place] [employer] [facility]. ALP [Catalytic activity/Vol] 69 U/L Normal 33 - 130 U/L [facility].; [facility], [facility]. ALT [Catalytic activity/Vol] 34 U/L Abnormal 6 - 29 U/L [facility].; [place] [employer] [facility], [facility]. AST [Catalytic activity/Vol] 26 U/L Normal 10 - 35 U/L [facility].; [facility], [facility]. Bilirubin [Mass/Vol] 0.5 mg/dL Normal 0.2 - 1 .2 mg/dL [facility].; [place] [employer] [facility], [facility]. Calcium [Mass/Vol] 9.5 mg/dL Normal 8.6 - 10. 4 mg/dL [facility].; [place] [employer] [facility], [facility]. Chloride [Moles/Vol] 102 mmol/L Normal 98 - 11 0 mmol/L [facility], [facility].; [facility], [facility]. Cholesterol [Mass/Vol] 221 mg/dL Abnormal 125 - 200 mg/dL [facility].; [facility], [facility]. Cholesterol in HDL [Mass/Vol] 60 mg/dL Normal [facility].; [place] [employer] [facility] Cholesterol in LDL [Mass/Vol] 131 mg/dL Abnormal [facility].; [place] [employer] [facility], [facility]. Cholesterol non HDL [Mass/Vol] 161 mg/dL Abnormal [facility].; [place] [employer] [facility], [facility]. Cholesterol.total/Chol esterol in HDL [Mass ratio] 3.7 {ratio} Normal [facility].; [place] [employer] [facility]. CO2 [Moles/Vol] 26 mmol/L Normal 19 - 30 mmol/L [facility].; [place] [employer] [facility], [facility]. Creatinine [Mass/Vol] 0.73 mg/dL Normal 0.50 - 0.99 mg/dL [facility].; [place] [employer] [facility], [facility]. GFR/1.73 sq M.predicted among blacks MDRD (S/P/Bld) [Vol rate/Area] 99 {ML/MIN/1.73M2} Normal [facility].; [place] [employer] [facility], [facility]. GFR/1.73 sq M.predicted MDRD (S/P/Bld) [Vol rate/Area] 86 {ML/MIN/1.73M2} Normal [facility]; [facility], [facility] Globulin (S) [Mass/Vol] 3.2 g/dL Normal 1.9 - 3.7 g/dL [facility].; [facility], [facility] Glucose [Mass/Vol] 84 mg/dL Normal 65 - 99 mg/dL [facility].; [facility], [facility] Potassium [Moles/Vol] 4.2 mmol/L Normal 3.5 - 5.3 mmol/L [facility]; [facility], [facility] Protein [Mass/Vol] 7.1 g/dL Normal 6.1 - 8.1 g/dL [facility]; [facility], [facility] Sodium [Moles/Vol] 139 mmol/L Normal 135 - 146 mmol/L [facility].; [facility], [facility] Triglyceride [Mass/Vol] 150 mg/dL Abnormal [facility]; [facility], [facility] TSH Qn 2.46 m[IU]/L Normal 0.40 - 4.50 {mIU/L} [facility].; [facility], [facility]. Urea nitrogen [Mass/Vol] 17 mg/dL Normal 7 - 25 mg/dL [facility], [facility].; [facility], [facility] Urea nitrogen/Creatinine [Mass ratio] 23.7 mg/mg Abnormal 6 - 22 [facility].; [facility], [facility] Laboratory - Chemistry and C hemistry - challengeon 04-04-2015 Calcium [Mass/Vol] 9.1 mg/dL Normal 8.6 - 10. 4 mg/dL [facility], [facility].; [facility], [facility] Chloride [Moles/Vol] 104 mmol/L Normal 98 - 11 0 mmol/L [facility], [facility].; [facility], [facility]. CO2 [Moles/Vol] 21 mmol/L Normal 19 - 30 mmol/L [facility], [facility].; [facility], [facility] Creatinine [Mass/Vol] 0.68 mg/dL Normal 0.50 - 0.99 mg/dL [facility].; [facility]. GFR/1.73 sq M.predicted among blacks MDRD (S/P/Bld) [Vol rate/Area] 106 {ML/MIN/1.73M2} Normal [facility].; [facility], [facility] GFR/1.73 sq M.predicted MDRD (S/P/Bld) [Vol rate/Area] 92 {ML/MIN/1.73M2} Normal [facility].; [facility] Glucose [Mass/Vol] 82 mg/dL Normal 65 - 99 mg/dL [facility], [facility].; [facility], [facility]. Potassium [Moles/Vol] 4.5 mmol/L Normal 3.5 - 5.3 mmol/L [facility].; [facility], [facility]. Sodium [Moles/Vol] 138 mmol/L Normal 135 - 146 mmol/L [facility], [facility].; [facility], [facility]. Urea nitrogen [Mass/Vol] 16 mg/dL Normal 7 - 25 mg/dL [facility].; [facility], [facility] Urea nitrogen/Creatinine [Mass ratio] 24.0 mg/mg Abnormal 6 - 22 [facility]; [facility], [facility]. Laboratory - Chemistry and C hemistry - challengeon 10-04-2014 Albumin [Mass/Vol] 4.0 g/dL Normal 3.6 - 5.1 g/dL [facility], [facility].; [facility], [facility]. Albumin/Globulin [Mass ratio] 1.3 {ratio} Normal 1.0 - 2.5 [facility].; [facility]. ALP [Catalytic activity/Vol] 70 U/L Normal 33 - 130 U/L [facility].; [facility], [facility]. ALT [Catalytic activity/Vol] 27 U/L Normal 6 - 29 U/L [facility], [facility].; [facility], [facility]. AST [Catalytic activity/Vol] 24 U/L Normal 10 - 35 U/L [facility], [facility].; [facility], [facility]. Bilirubin [Mass/Vol] 0.4 mg/dL Normal 0.2 - 1 .2 mg/dL [facility], [facility].; [facility], [facility]. Calcium [Mass/Vol] 9.3 mg/dL Normal 8.6 - 10. 4 mg/dL [facility], [facility].; [facility], [facility]. Chloride [Moles/Vol] 103 mmol/L Normal 98 - 11 0 mmol/L [facility], [facility].; [facility], [facility]. Cholesterol [Mass/Vol] 239 mg/dL Abnormal 125 - 200 mg/dL [facility], [facility].; [facility], [facility]. Cholesterol in HDL [Mass/Vol] 63 mg/dL Normal [facility], [facility].; [facility], [facility]. Cholesterol in LDL [Mass/Vol] 148 mg/dL Abnormal [facility].; [facility], [facility]. Cholesterol non HDL [Mass/Vol] 177 mg/dL Abnormal [facility], [facility].; [place] [employer] [facility], [facility]. Cholesterol.total/Chol esterol in HDL [Mass ratio] 3.8 {ratio} Normal [facility], [facility].; [place] [employer] [facility], [employer]. CO2 [Moles/Vol] 26 mmol/L Normal 19 - 30 mmol/L [facility], [facility].; [place] [employer] [facility], [facility]. Creatinine [Mass/Vol] 0.69 mg/dL Normal 0.50 - 0.99 mg/dL [facility], [facility].; [place] [employer] [facility] GFR/1.73 sq M.predicted among blacks MDRD (S/P/Bld) [Vol rate/Area] 106 {ML/MIN/1.73M2} Normal [facility], [facility].; [facility], [facility]. GFR/1.73 sq M.predicted MDRD (S/P/Bld) [Vol rate/Area] 91 {ML/MIN/1.73M2} Normal [facility], [facility].; [place] [employer] Globulin (S) [Mass/Vol] 3.1 g/dL Normal 1.9 - 3.7 g/dL [facility], [facility].; [place] [employer] Glucose [Mass/Vol] 79 mg/dL Normal 65 - 99 mg/dL [facility], [facility].; [place] [employer] [facility] Potassium [Moles/Vol] 4.3 mmol/L Normal 3.5 - 5.3 mmol/L [facility].; [facility] Protein [Mass/Vol] 7.1 g/dL Normal 6.1 - 8.1 g/dL [facility]; [place] [employer] [facility], [facility] Sodium [Moles/Vol] 138 mmol/L Normal 135 - 146 mmol/L [facility]; [facility] Triglyceride [Mass/Vol] 141 mg/dL Normal [facility]; [facility] Urea nitrogen [Mass/Vol] 16 mg/dL Normal 7 - 25 mg/dL [facility]; [facility] Urea nitrogen/Creatinine [Mass ratio] 22.5 mg/mg Abnormal 6 - 22 [facility]; [place] [employer] [facility] Laboratory - Cytologyon Microscopic observation Cyto stain Nom (Cvx) Normal [facility]; [facility] Vital Signs Date Time Vital Sign Value Performing Clinician Facility 05-02-2025 08:03-0400 Body height 157.48 cm Shu Chow PA Work Phone: [facility] 05-02-2025 08:03-0400 Body mass index (BMI) [Ratio] 33 kg/m2 Shu Chow PA Work Phone: [facility] 05-02-2025 08:03-0400 Body temperature 97.7 [degF] Shu Chow PA Work Phone: [facility] 05-02-2025 08:03-0400 Body weight 81.84 kg Shu Chow PA Work Phone: [facility] 05-02-2025 08:03-0400 Diastolic blood pressure 76 mm[Hg] Shu Chow PA Work Phone: [facility] 05-02-2025 08:03-0400 Heart rate 77 /min Shu Chow PA Work Phone: [facility] 05-02-2025 08:03-0400 Respiratory rate 18 /min Shu Chow PA Work Phone: [facility] 05-02-2025 08:03-0400 SaO2% (BldA) [Mass fraction] 97 % Shu Chow PA Work Phone: [facility] 05-02-2025 08:03-0400 Systolic blood pressure 118 mm[Hg] Shu Chow PA Work Phone: 5(745)103-600413 [place] [address] 04-18-2025 09:29-0400 Body height 157.48 cm Shu Chow PA Work Phone: 3(439)422-302813 [place] [address] 04-18-2025 09:29-0400 Body mass index (BMI) [Ratio] 33.8 kg/m2 Shu Chow PA Work Phone: 7(125)703-574113 [address] 04-18-2025 09:29-0400 Body temperature 98.5 [degF] Shu Chow PA Work Phone: 5(468)003-829813 [place] [address] 04-18-2025 09:29-0400 Body weight 83.91 kg Shu Chow PA Work Phone: 8(240)586-904913 [place] [address] 04-18-2025 09:29-0400 Diastolic blood pressure 83 mm[Hg] Shu Chow PA Work Phone: 3(397)388-264013 [address] 04-18-2025 09:29-0400 Heart rate 69 /min Shu Chow PA Work Phone: 2(508)797-481713 [place] [address] 04-18-2025 09:29-0400 Respiratory rate 16 /min Shu Chow PA Work Phone: 8(961)741-207613 [place] [address] 04-18-2025 09:29-0400 SaO2% (BldA) [Mass fraction] 96 % Shu Chow PA Work Phone: 7(886)979-616513 [place] [address] 04-18-2025 09:29-0400 Systolic blood pressure 129 mm[Hg] Shu Chow PA Work Phone: 6(187)699-095113 [place] [address] 04-04-2025 08:16-0400 Body height 157.48 cm Shu Chow PA Work Phone: 0(395)027-366813 [place] [address] 04-04-2025 08:16-0400 Body mass index (BMI) [Ratio] 34.2 kg/m2 Shu Chow PA Work Phone: [facility] 04-04-2025 08:16-0400 Body temperature 98.2 [degF] Shu Chow PA Work Phone: [facility] 04-04-2025 08:16-0400 Body weight 84.93 kg Shu Chow PA Work Phone: [facility] 04-04-2025 08:16-0400 Diastolic blood pressure 83 mm[Hg] Shu Chow PA Work Phone: [facility] 04-04-2025 08:16-0400 Heart rate 64 /min Shu Chow PA Work Phone: [facility] 04-04-2025 08:16-0400 Respiratory rate 16 /min Shu Chow PA Work Phone: [facility] 04-04-2025 08:16-0400 SaO2% (BldA) [Mass fraction] 97 % Shu Chow PA Work Phone: [facility] 04-04-2025 08:16-0400 Systolic blood pressure 133 mm[Hg] Shu Chow PA Work Phone: [facility] 03-24-2025 08:48-0400 Body height 152.4 cm Shu Haney Chow PA-C Work Phone: [facility] [employer]; [employer] [facility]. 03-24-2025 08:48-0400 Body mass index (BMI) [Ratio] 37.11 kg/m2 Shu Lyndon Chow PA-C Work Phone: [facility]; [employer] [facility]. 03-24-2025 08:48-0400 Body surface area Derived from formula 1.83 m2 Shu J Chow PA-C Work Phone: [employer]; [employer] [facility]. 03-24-2025 08:48-0400 Body weight 86.18 kg Shu Abbotter PA-C Work Phone: [facility]; [employer] [facility] 03-24-2025 08:48-0400 Diastolic blood pressure 82 mm[Hg] Shu Haney Chow PA-C Work Phone: [facility]; [employer] Comment on above: Patient Position: Sitting; Cuff Location : Left Arm; Cuff Size: Standard 03-24-2025 08:48-0400 Heart rate 72 /min Shu Haney Chow PA-C Work Phone: [employer]; [employer] Comment on above: Pattern: Regular 03-24-2025 08:48-0400 Systolic blood pressure 135 mm[Hg] Shu Haney Chow PA-C Work Phone: [employer]; [employer] Comment on above: Patient Position: Sitting; Cuff Location : Left Arm; Cuff Size: Standard 03-21-2025 08:05-0400 Body height 157.48 cm Shu Chow PA Work Phone: [facility] 03-21-2025 08:05-0400 Body mass index (BMI) [Ratio] 34.7 kg/m2 Shu Chow PA Work Phone: [facility] 03-21-2025 08:05-0400 Body temperature 98.2 [degF] Shu Chow PA Work Phone: [facility] 03-21-2025 08:05-0400 Body weight 86.18 kg Shu Chow PA Work Phone: [facility] 03-21-2025 08:05-0400 Diastolic blood pressure 88 mm[Hg] Shu Chow PA Work Phone: [facility] 03-21-2025 08:05-0400 Heart rate 60 /min Hsu Chow PA Work Phone: [facility] 03-21-2025 08:05-0400 Respiratory rate 16 /min Shu Chow PA Work Phone: [facility] 03-21-2025 08:05-0400 SaO2% (BldA) [Mass fraction] 98 % Shu Chow PA Work Phone: [facility] 03-21-2025 08:05-0400 Systolic blood pressure 158 mm[Hg] Shu Chow PA Work Phone: [facility] 03-20-2025 13:42-0400 Body temperature 98.5 [degF] Shu Chow PA Work Phone: 4(697)573-179013 [place] [address] 03-20-2025 13:42-0400 Diastolic blood pressure 61 mm[Hg] Shu Chow PA Work Phone: 3(003)842-217213 [place] [address] 03-20-2025 13:42-0400 Heart rate 55 /min Shu Chow PA Work Phone: 5(658)246-036013 [place] [address] 03-20-2025 13:42-0400 Respiratory rate 16 /min Shu Chow PA Work Phone: [facility] 03-20-2025 13:42-0400 SaO2% (BldA) [Mass fraction] 99 % Shu Chow PA Work Phone: [facility] 03-20-2025 13:42-0400 Systolic blood pressure 129 mm[Hg] Shu Chow PA Work Phone: [facility] 03-20-2025 12:08-0400 Body height 157.48 cm Shu Chow PA Work Phone: [facility] 03-20-2025 11:38-0400 Body mass index (BMI) [Ratio] 34.2 kg/m2 Shu Chow PA Work Phone: [facility] 03-20-2025 11:38-0400 Body weight 85 kg Shu Chow PA Work Phone: [facility] 03-15-2025 10:10-0400 Body height 157.48 cm Shu Chow PA Work Phone: [facility] 03-15-2025 10:10-0400 Body mass index (BMI) [Ratio] 34.2 kg/m2 Shu Chow PA Work Phone: [facility] 03-15-2025 10:10-0400 Body temperature 97.6 [degF] Shu Chow PA Work Phone: [facility] 03-15-2025 10:10-0400 Body weight 84.9 kg Shu Chow PA Work Phone: 8(696)774-177913 [place] [address] 03-15-2025 10:10-0400 Diastolic blood pressure 84 mm[Hg] Shu Chow PA Work Phone: 9(238)975-870613 [place] [address] 03-15-2025 10:10-0400 Heart rate 61 /min Shu Chow PA Work Phone: 5(801)741-205813 [place] [address] 03-15-2025 10:10-0400 Respiratory rate 18 /min Shu Chow PA Work Phone: 8(345)851-291613 [place] [address] 03-15-2025 10:10-0400 SaO2% (BldA) [Mass fraction] 96 % Shu Chow PA Work Phone: 2(103)643-109513 [place] [address] 03-15-2025 10:10-0400 Systolic blood pressure 148 mm[Hg] Shu Chow PA Work Phone: 3(715)737-626013 [place] [address] 03-15-2025 08:10-0400 Body height 157.48 cm Shu Chow PA Work Phone: [facility] 03-15-2025 08:10-0400 Body mass index (BMI) [Ratio] 34.2 kg/m2 Shu Chow PA Work Phone: [facility] 03-15-2025 08:10-0400 Body temperature 98.2 [degF] Shu Chow PA Work Phone: [facility] 03-15-2025 08:10-0400 Body weight 84.9 kg Shu Chow PA Work Phone: 6(321)272-463913 [place] [address] 03-15-2025 08:10-0400 Diastolic blood pressure 80 mm[Hg] Shu Chow PA Work Phone: 1(077)413-138287 [place] [address] 03-15-2025 08:10-0400 Heart rate 57 /min Shu Chow PA Work Phone: 5(280)185-013387 [place] [address] 03-15-2025 08:10-0400 Respiratory rate 16 /min Shu Chow PA Work Phone: 6(898)526-985087 [place] [address] 03-15-2025 08:10-0400 SaO2% (BldA) [Mass fraction] 98 % Shu Chow PA Work Phone: 5(875)933-013787 [place] [address] 03-15-2025 08:10-0400 Systolic blood pressure 151 mm[Hg] Shu Chow PA Work Phone: 2(681)368-213987 [place] [address] 03-09-2025 09:22-0400 Body mass index (BMI) [Ratio] 33.8 kg/m2 Shu Chow PA Work Phone: 0(870)913-343187 [place] [address] 03-09-2025 09:22-0400 Body temperature 97.3 [degF] Shu Chow PA Work Phone: 7(692)561-492787 [place] [address] 03-09-2025 09:22-0400 Body weight 83.97 kg Shu Chow PA Work Phone: 3(957)344-345787 [place] [address] 03-09-2025 09:22-0400 Diastolic blood pressure 85 mm[Hg] Shu Chow PA Work Phone: 5(924)816-031587 [place] [address] 03-09-2025 09:22-0400 Heart rate 63 /min Shu Chow PA Work Phone: 8(195)244-725587 [place] [address] 03-09-2025 09:22-0400 Respiratory rate 16 /min Shu Chow PA Work Phone: 3(120)201-896987 [place] [address] 03-09-2025 09:22-0400 SaO2% (BldA) [Mass fraction] 100 % Shu Chow PA Work Phone: 9(708)353-144013 [place] [address] 03-09-2025 09:22-0400 Systolic blood pressure 157 mm[Hg] Shu JAUREGUI Work Phone: [facility] 02-21-2025 13:21-0400 Body height 154.9 cm Sachi Chaka MBBS Work Phone: [facility] 02-21-2025 13:21-0400 Body mass index (BMI) [Ratio] 35.64 kg/m2 Sachi Chaka MBBS Work Phone: [facility] 02-21-2025 13:21-040 Body temperature 98.01 [degF] Sachi Chaka MBBS Work Phone: [facility] 02-21-2025 13:21040 Body weight 85.55 kg Sachi Chaka MBBS Work Phone: [facility] 02-21-2025 13:21-0400 Diastolic blood pressure 74 mm[Hg] Sachi Chaka MBBS Work Phone: [facility] 02-21-2025 13:21-0400 Heart rate 75 /min Sachi Chaka MBBS Work Phone: [facility] 02-21-2025 13:21-0400 Respiratory rate 18 /min Sachi Chaka MBBS Work Phone: [facility] 02-21-2025 13:21-0400 SaO2% (BldA) [Mass fraction] 97 % Sachi Chaka MBBS Work Phone: [facility] Comment on above: room air 02-21-2025 13:21-0400 Systolic blood pressure 166 mm[Hg] Sachi Chaka MBBS Work Phone: [facility] 02-01-2025 14:11040 Body height 152.4 cm Amy HERNANDEZ [facility], [facility]. 02-01-2025 14:11-0400 Body mass index (BMI) [Ratio] 36.72 kg/m2 Amy Soriano [facility] 02-01-2025 14:110400 Body surface area Derived from formula 1.82 m2 Amy Soriano [facility].; [facility] 02-01-2025 14:110400 Body weight 85.28 kg Amy Soriano [facility].; [place] [employer] [facility]. 02-01-2025 14:110400 Diastolic blood pressure 83 mm[Hg] Amy Soriano [facility].; [place] [employer] [facility] Comment on above: Patient Position: Sitting; Cuff Location : Left Arm; Cuff Size: Standard 02-01-2025 14:110400 Heart rate 75 /min Amy Soriano [facility].; [place] [employer] [facility] Comment on above: Pattern: Regular 02-01-2025 14:110400 Systolic blood pressure 121 mm[Hg] Amy Soriano [facility].; [place] [employer] [facility]. Comment on above: Patient Position: Sitting; Cuff Location : Left Arm; Cuff Size: Standard 01-28-2025 08:07-0400 Body temperature 97.81 [degF] Sachi Rosas MBBS Work Phone: [facility] 01-28-2025 08:07-0400 Diastolic blood pressure 74 mm[Hg] Sachi Rosas MBBS Work Phone: [facility] 01-28-2025 08:07-0400 Heart rate 68 /min Sachi Chaka MBBS Work Phone: [facility] 01-28-2025 08:07-0400 Respiratory rate 16 /min Sachimele Rosas MBBS Work Phone: [facility] 01-28-2025 08:07-0400 SaO2% (BldA) [Mass fraction] 95 % Sachimele Rosas MBBS Work Phone: [facility] 01-28-2025 08:07-0400 Systolic blood pressure 170 mm[Hg] Sachi Chaka MBBS Work Phone: [facility] 01-23-2025 05:58-0400 Body height 154.9 cm Sachi Chaka MBBS Work Phone: [facility] 01-23-2025 05:58-0400 Body mass index (BMI) [Ratio] 35.52 kg/m2 Sachi Chaka MBBS Work Phone: [facility] 01-23-2025 05:58-0400 Body weight 85.28 kg Sachi Chaka MBBS Work Phone: [facility] 01-10-2025 15:20-0400 Diastolic blood pressure 72 mm[Hg] Mackenzie Takhtay SUBACUTE NURSE-VENEER PRODUCTION MACHINE OPERATOR Work Phone: [facility] 01-10-2025 15:20-0400 Systolic blood pressure 128 mm[Hg] Mackenzie Takhtay SUBACUTE NURSE-VENEER PRODUCTION MACHINE OPERATOR Work Phone: [facility] 01-10-2025 14:34-0400 Body height 154.9 cm Mackenzie Takhtay SUBACUTE NURSE-VENEER PRODUCTION MACHINE OPERATOR Work Phone: [facility] 01-10-2025 14:34-0400 Body mass index (BMI) [Ratio] 36.15 kg/m2 Mackenzie Takhtay SUBACUTE NURSE-VENEER PRODUCTION MACHINE OPERATOR Work Phone: [facility] 01-10-2025 14:34-0400 Body temperature 97.9 [degF] Mackenzie Takhtay SUBACUTE NURSE-VENEER PRODUCTION MACHINE OPERATOR Work Phone: [facility] 01-10-2025 14:34-0400 Body weight 86.77 kg Mackenzie Takhtay SUBACUTE NURSE-VENEER PRODUCTION MACHINE OPERATOR Work Phone: [facility] 01-10-2025 14:34-0400 Heart rate 70 /min Mackenzie Takhtay SUBACUTE NURSE-VENEER PRODUCTION MACHINE OPERATOR Work Phone: [facility] 01-10-2025 14:34-0400 Respiratory rate 16 /min Mackenzie Reyes SUBACUTE NURSE-VENEER PRODUCTION MACHINE OPERATOR Work Phone: [facility] 01-10-2025 14:34-0400 SaO2% (BldA) [Mass fraction] 98 % Mackenzie Reyes SUBACUTE NURSE-VENEER PRODUCTION MACHINE OPERATOR Work Phone: [facility] 12-31-2024 08:03-0500 Body height 152.4 cm Sachi Chaka MBBS Work Phone: [facility] [facility] 12-31-2024 08:03-0500 Diastolic blood pressure 79 mm[Hg] Sachi Chaka MBBS Work Phone: [facility] 12-31-2024 08:03-0500 Heart rate 70 /min Sachi Chaka MBBS Work Phone: [facility] 12-31-2024 08:03-0500 Systolic blood pressure 176 mm[Hg] Sachi Chaka MBBS Work Phone: [facility] 12-06-2024 13:06-0500 Body height 154 cm Sachi Chaka MBBS Work Phone: [facility] 12-06-2024 13:06-0500 Body mass index (BMI) [Ratio] 36.76 kg/m2 Sachi Chaka MBBS Work Phone: [facility] 12-06-2024 13:06-0500 Body temperature 98.1 [degF] Sachi Chaka MBBS Work Phone: [facility] 12-06-2024 13:06-0500 Body weight 87.18 kg Sachi Chaka MBBS Work Phone: [facility] Comment on above: w/o shoes 12-06-2024 13:06-0500 Diastolic blood pressure 77 mm[Hg] Sachi Chaka MBBS Work Phone: [facility] 12-06-2024 13:06-0500 Heart rate 74 /min Sachi Chaka MBBS Work Phone: [facility] 12-06-2024 13:06-0500 Respiratory rate 18 /min Sachi Chaka MBBS Work Phone: [facility] 12-06-2024 13:06-0500 SaO2% (BldA) [Mass fraction] 95 % Sachi Chaka MBBS Work Phone: [facility] 12-06-2024 13:06-0500 Systolic blood pressure 177 mm[Hg] Sachi Chaka MBBS Work Phone: [facility] 06-27-2024 13:56-0400 Body height 152.4 cm Roverto Lynch [facility], [facility].; [employer], [facility]. 06-27-2024 13:56-0400 Body mass index (BMI) [Ratio] 37.5 kg/m2 Roverto Rausch Keila [facility], [facility].; [employer] [facility], [facility]. 06-27-2024 13:56-0400 Body surface area Derived from formula 1.83 m2 Roverto Lynch [facility], [facility].; [employer] [facility], [facility]. 06-27-2024 13:56-0400 Body weight 87.09 kg Roverto Lynch [facility], [facility].; [email or web address] 06-27-2024 13:56-0400 Diastolic blood pressure 78 mm[Hg] Roverto Lynch [facility], [facility].; [employer], [employer]. Comment on above: Patient Position: Sitting; Cuff Location : Left Arm; Cuff Size: Standard 06-27-2024 13:56-0400 Heart rate 72 /min Roverto Lynch [facility], Inc.; [email or web address]. Comment on above: Pattern: Regular 06-27-2024 13:56-0400 Systolic blood pressure 130 mm[Hg] Roverto Lynch LPN [place] [employer]. Comment on above: Patient Position: Sitting; Cuff Location : Left Arm; Cuff Size: Standard 02-05-2024 10:44-0400 Body height 152.4 cm Shu J Chow PA-C Work Phone: [email or web address].; [email or web address] 02-05-2024 10:44-0400 Body mass index (BMI) [Ratio] 41.21 kg/m2 Shu J Chow PA-C Work Phone: [email or web address].; [place] [employer] [facility]. 02-05-2024 10:44-0400 Body surface area Derived from formula 1.91 m2 Shu J Chow PA-C Work Phone: [email or web address].; [place] [employer] [facility]. 02-05-2024 10:44-0400 Body weight 95.71 kg Shu J Chow PA-C Work Phone: [email or web address].; [email or web address] 02-05-2024 10:44-0400 Diastolic blood pressure 82 mm[Hg] Shu J Chow PA-C Work Phone: [email or web address].; [email or web address]. Comment on above: Patient Position: Sitting; Cuff Location : Left Arm; Cuff Size: Standard 02-05-2024 10:44-0400 Heart rate 71 /min Shu J Chow PA-C Work Phone: [email or web address].; [email or web address] Comment on above: Pattern: Regular 02-05-2024 10:44-0400 Systolic blood pressure 124 mm[Hg] Shu J Chow PA-C Work Phone: [email or web address].; [email or web address] Comment on above: Patient Position: Sitting; Cuff Location : Left Arm; Cuff Size: Standard 11-23-2023 10:25-0500 Body height 152.4 cm Roverto M Keila [facility], [facility].; [facility], [facility]. 11-23-2023 10:25-0500 Body mass index (BMI) [Ratio] 43.55 kg/m2 Roverto Lynch [facility], Inc.; [employer] [facility], Inc[employer] 11-23-2023 10:25-0500 Body surface area Derived from formula 1.96 m2 Roverto Lynch [facility], Inc.; [employer] [facility]. 11-23-2023 10:25-0500 Body weight 101.15 kg Roverto Lynch [facility], [facility].; [employer], [facility]. 11-23-2023 10:25-0500 Diastolic blood pressure 78 mm[Hg] Roverto Lynch [facility], [facility].; [employer] Comment on above: Patient Position: Sitting; Cuff Location : Right Arm; Cuff Size: Standard 11-23-2023 10:25-0500 Heart rate 67 /min Roverto Lynch [facility], [facility].; [employer], [employer]. Comment on above: Pattern: Regular 11-23-2023 10:25-0500 Systolic blood pressure 139 mm[Hg] Roverto Lynch [facility], [facility].; [employer] Comment on above: Patient Position: Sitting; Cuff Location : Right Arm; Cuff Size: Standard 07-27-2023 09:30-0400 Body height 152.4 cm Roverto Lynch [facility], [facility].; [employer] 07-27-2023 09:30-0400 Body mass index (BMI) [Ratio] 45.89 kg/m2 Roverto Lynch [facility], [facility].; [place] [employer] [facility], [facility]. 07-27-2023 09:30-0400 Body surface area Derived from formula 2 m2 Roverto Lynch [facility], [facility].; [employer] [facility]. 07-27-2023 09:30-0400 Body weight 106.6 kg Roverto Lynch [facility] [employer] [facility].; [email or web address] 07-27-2023 09:30-0400 Diastolic blood pressure 75 mm[Hg] Roverto Lynch LPN [facility] [employer].; [employer] [facility]. Comment on above: Patient Position: Sitting; Cuff Location : Left Arm; Cuff Size: Standard 07-27-2023 09:30-0400 Heart rate 81 /min Roverto Lynch LPN [facility], [employer].; [employer]. Comment on above: Pattern: Regular 07-27-2023 09:30-0400 Systolic blood pressure 136 mm[Hg] [facility] [email or web address]. Comment on above: Patient Position: Sitting; Cuff Location : Left Arm; Cuff Size: Standard 01-29-2023 09:32-0400 Body weight 105.24 kg Shu JAUREGUI-C Work Phone: [place] [employer] [facility].; [email or web address]. 01-29-2023 09:32-0400 Diastolic blood pressure 84 mm[Hg] Shu JAUREGUI-C Work Phone: [place] [employer] [facility].; [employer]. Comment on above: Patient Position: Sitting; Cuff Location : Left Arm; Cuff Size: Standard 01-29-2023 09:32-0400 Heart rate 70 /min Shu Chow PA-C Work Phone: [place] [employer] [facility].; [employer]. Comment on above: Pattern: Regular 01-29-2023 09:32-0400 Systolic blood pressure 153 mm[Hg] Shu JAUREGUI-C Work Phone: [place] [employer] [facility].; [employer]. Comment on above: Patient Position: Sitting; Cuff Location : Left Arm; Cuff Size: Standard 08-01-2022 10:20-0400 Body height 152.4 cm Roverto Lynch LPN [place] [employer] [facility], [employer].; [employer]. 08-01-2022 10:20-0400 Body mass index (BMI) [Ratio] 43.94 kg/m2 Roverto Lynch LPN [facility], [facility].; [facility], [facility]. 08-01-2022 10:20-0400 Body surface area Derived from formula 1.96 m2 Roverto Aparicioach [facility], [facility].; [employer] [facility], Inc[facility] 08-01-2022 10:20-0400 Body weight 102.06 kg Roverto Lynch [facility], [facility].; [employer] [facility]. 08-01-2022 10:20-0400 Diastolic blood pressure 82 mm[Hg] Roverto Lynch [facility], [facility].; [email or web address]. Comment on above: Patient Position: Sitting; Cuff Location : Left Arm; Cuff Size: Standard 08-01-2022 10:20-0400 Heart rate 71 /min Roverto Lynch [facility], [facility].; [email or web address]. Comment on above: Pattern: Regular 08-01-2022 10:20-0400 Systolic blood pressure 137 mm[Hg] Roverto Lynch [facility], [facility].; [email or web address]. Comment on above: Patient Position: Sitting; Cuff Location : Left Arm; Cuff Size: Standard 01-23-2022 13:110400 Body height 152.4 cm Roverto Lynch [employer] [facility], [facility].; [email or web address]. 01-23-2022 13:11-0400 Body mass index (BMI) [Ratio] 42.97 kg/m2 Roverto Lynch [facility], [facility].; [employer] 01-23-2022 13:110400 Body surface area Derived from formula 1.94 m2 Roverto Lynch [facility], [facility].; [employer] [facility]. 01-23-2022 13:110400 Body weight 99.79 kg Roverto Lynch [facility], [facility].; [email or web address]. 01-23-2022 13:11-0400 Diastolic blood pressure 72 mm[Hg] Roverto Lynch [facility].; [email or web address]. Comment on above: Patient Position: Sitting; Cuff Location : Left Arm; Cuff Size: Standard 01-23-2022 13:11-0400 Heart rate 72 /min Roverto Allenlabach [facility], [facility].; [employer] [facility]. Comment on above: Pattern: Regular 01-23-2022 13:11-0400 Systolic blood pressure 121 mm[Hg] Roverto Aparicioach [employer] [facility], Inc.; [email or web address]. Comment on above: Patient Position: Sitting; Cuff Location : Left Arm; Cuff Size: Standard 01-23-2021 10:55-0400 Body height 152.4 cm [facility]overto [facility]ch [facility], [employer].; [place] [employer] [facility]. 01-23-2021 10:55-0400 Body mass index (BMI) [Ratio] 46.09 kg/m2 Roverto Rausch Keila [facility], Inc.; [place] [employer] [facility]. 01-23-2021 10:55-0400 Body surface area Derived from formula 2 m2 Roverto M Keila [facility], [facility].; [email or web address]. 01-23-2021 10:55-0400 Body weight 107.05 kg Roverto Lynch [facility], [facility].; [place] [employer]. 01-23-2021 10:55-0400 Diastolic blood pressure 84 mm[Hg] Roverto Allenlabach [facility], [employer].; [email or web address]. Comment on above: Patient Position: Sitting; Cuff Location : Right Arm; Cuff Size: Standard 01-23-2021 10:55-0400 Heart rate 71 /min Roverto Allenlabach [employer] [place] [employer] [facility], [employer].; [email or web address]. Comment on above: Pattern: Regular 01-23-2021 10:55-0400 Systolic blood pressure 151 mm[Hg] Roverto Aparicioach [employer] [place] [employer] [facility].; [email or web address]. Comment on above: Patient Position: Sitting; Cuff Location : Right Arm; Cuff Size: Standard 01-09-2021 09:51-0500 Body height 152.4 cm Shu Chow PA-C Work Phone: [employer] [facility] [employer]; [employer] [facility]. 01-09-2021 09:51-0500 Body mass index (BMI) [Ratio] 46.87 kg/m2 Shu Abbotter PA-C Work Phone: [employer] [facility] [employer] [place] [employer] [facility]. 01-09-2021 09:51-0500 Body surface area Derived from formula 2.02 m2 Shu Abbotter PA-C Work Phone: [employer] [facility] [employer]; [employer] [facility]. 01-09-2021 09:51-0500 Body weight 108.86 kg Shu Abbotter PA-C Work Phone: [employer]; [employer] [facility]. 01-09-2021 09:51-0500 Diastolic blood pressure 79 mm[Hg] Shu Abbotter PA-C Work Phone: [employer]; [employer]. Comment on above: Patient Position: Sitting; Cuff Location : Left Arm; Cuff Size: Standard 01-09-2021 09:51-0500 Heart rate 66 /min Shu Abbotter PA-C Work Phone: [employer]; [employer]. Comment on above: Pattern: Regular 01-09-2021 09:51-0500 Systolic blood pressure 127 mm[Hg] Shu Abbotter PA-C Work Phone: [employer]; [employer]. Comment on above: Patient Position: Sitting; Cuff Location : Left Arm; Cuff Size: Standard 06-18-2020 08:32-0400 Body height 152.4 cm Shu Haney Chow PA-C Work Phone: [employer]; [email or web address]. 06-18-2020 08:32-0400 Body mass index (BMI) [Ratio] 44.92 kg/m2 Shu Haney Chow PA-C Work Phone: [employer]; [email or web address]. 06-18-2020 08:32-0400 Body surface area Derived from formula 1.98 m2 Shu Haney Chow PA-C Work Phone: [employer]; [email or web address]. 06-18-2020 08:32-0400 Body weight 104.33 kg Shu Haney Chow PA-C Work Phone: [email or web address].; [email or web address] 06-18-2020 08:32-0400 Diastolic blood pressure 80 mm[Hg] Shu Haney Chow PA-C Work Phone: [employer]; [employer]. Comment on above: Patient Position: Sitting; Cuff Location : Left Arm; Cuff Size: Standard 06-18-2020 08:32-0400 Heart rate 64 /min Shu Haney Chow PA-C Work Phone: [employer]; [employer]. Comment on above: Pattern: Regular 06-18-2020 08:32-0400 Inhaled oxygen concentration 20 % Shu Lyndon Chow PA-C Work Phone: [employer]; [employer]. Comment on above: Room air 06-18-2020 08:32-0400 Inhaled oxygen concentration 21 % Shu Lyndon Chow PA-C Work Phone: [employer]; [employer]. Comment on above: Room air 06-18-2020 08:32-0400 SaO2% (BldA) [Mass fraction] 99 % Shu Haney Chow PA-C Work Phone: [employer]; [employer]. 06-18-2020 08:32-0400 Systolic blood pressure 128 mm[Hg] Shu Lyndon Chow PA-C Work Phone: [employer]; [employer]. Comment on above: Patient Position: Sitting; Cuff Location : Left Arm; Cuff Size: Standard 01-02-2020 11:42-0500 Body height 152.4 cm Irish Cruzgretchen PINEDA [facility], [facility].; [employer] [facility], [facility]. 01-02-2020 11:42-0500 Body mass index (BMI) [Ratio] 45.11 kg/m2 Irish Anthonygretchen [facility], [facility].; [employer] 01-02-2020 11:42-0500 Body surface area Derived from formula 1.98 m2 Irish Solano LPN [facility], [facility].; [place] [employer] [facility], Inc[employer] 01-02-2020 11:42-0500 Body temperature 98.1 [degF] Irish Wegretchen [facility], [facility].; [employer] Comment on above: Method: Tympanic 01-02-2020 11:42-0500 Body weight 104.78 kg Irishkatherine Solano LPN [facility], [facility].; [employer] 01-02-2020 11:42-0500 Diastolic blood pressure 76 mm[Hg] Irish [facility] [employer] [facility], [facility].; [employer], [employer]. Comment on above: Patient Position: Sitting; Cuff Location : Left Arm; Cuff Size: Standard 01-02-2020 11:42-0500 Heart rate 72 /min Irishkatherine Solano LPN [facility], [facility].; [employer] Comment on above: Pattern: Regular 01-02-2020 11:42-0500 Inhaled oxygen concentration 20 % Irish Solano LPN [facility], Inc[employer] Comment on above: Room air 01-02-2020 11:42-0500 Inhaled oxygen concentration 21 % Irish Solano LPN [place] [employer] [facility], [facility].; [employer], [employer]. Comment on above: Room air 01-02-2020 11:42-0500 SaO2% (BldA) [Mass fraction] 95 % Irish Solano LPN [place] [employer] [facility], Inc.; [employer] 01-02-2020 11:42-0500 Systolic blood pressure 130 mm[Hg] Irish Solano LPN [place] [employer] [facility], Inc.; [email or web address]. Comment on above: Patient Position: Sitting; Cuff Location : Left Arm; Cuff Size: Standard 06-15-2019 10:47-0400 Body height 152.4 cm Irish Wegretchen PINEDA [place] [employer] [facility], Inc.; [employer] 06-15-2019 10:47-0400 Body mass index (BMI) [Ratio] 43.94 kg/m2 Irish Wegretchen PINEDA [employer] 06-15-2019 10:47-0400 Body surface area Derived from formula 1.96 m2 Irish Russ PINEDA [employer] 06-15-2019 10:47-0400 Body weight 102.06 kg Irish Russ PINEDA [place] [employer] 06-15-2019 10:47-0400 Diastolic blood pressure 84 mm[Hg] Irish Russ PINEDA [employer] Comment on above: Patient Position: Sitting; Cuff Location : Left Arm; Cuff Size: Standard 06-15-2019 10:47-0400 Heart rate 71 /min Irish Russ PINEDA [employer] Comment on above: Pattern: Regular 06-15-2019 10:47-0400 Systolic blood pressure 130 mm[Hg] Irish Wegretchen PINEDA [place] [employer] Comment on above: Patient Position: Sitting; Cuff Location : Left Arm; Cuff Size: Standard 11-04-2018 10:45-0500 Body height 152.4 cm Irish Wegretchen PINEDA [employer] 11-04-2018 10:45-0500 Body mass index (BMI) [Ratio] 43.55 kg/m2 Irish Russ PINEDA [employer] 11-04-2018 10:45-0500 Body surface area Derived from formula 1.96 m2 Irish Solano LPN [employer]. 11-04-2018 10:45-0500 Body weight 101.15 kg Irish Sanchezshiva PINEDA [employer], [employer]. 11-04-2018 10:45-0500 Diastolic blood pressure 80 mm[Hg] Irish Cruzgretchen PINEDA [employer]. Comment on above: Patient Position: Sitting; Cuff Location : Left Arm; Cuff Size: Standard 11-04-2018 10:45-0500 Heart rate 77 /min Irish Cruzgretchen PINEDA [employer]. Comment on above: Pattern: Regular 11-04-2018 10:45-0500 Inhaled oxygen concentration 20 % Irish Cruzgretchen PINEDA [employer]. Comment on above: Room air 11-04-2018 10:45-0500 Inhaled oxygen concentration 21 % Irish Cruzgretchen PINEDA [employer]. Comment on above: Room air 11-04-2018 10:45-0500 SaO2% (BldA) [Mass fraction] 97 % Irish Hopkinsstefanie [facility], Inc.; [employer]. 11-04-2018 10:45-0500 Systolic blood pressure 127 mm[Hg] Irish Cruzgretchen PINEDA [employer]. Comment on above: Patient Position: Sitting; Cuff Location : Left Arm; Cuff Size: Standard 10-04-2018 08:24-0500 Body height 152.4 cm ShuRotaryView PA-C Work Phone: [employer] 10-04-2018 08:24-0500 Body mass index (BMI) [Ratio] 43.36 kg/m2 [employer] PA-C Work Phone: [employer]. 10-04-2018 08:24-0500 Body surface area Derived from formula 1.95 m2 [employer] PA-C Work Phone: [employer] 10-04-2018 08:24-0500 Body temperature 98 [degF] Shu Abbotter PA-C Work Phone: [employer]; [employer]. Comment on above: Method: Tympanic 10-04-2018 08:24-0500 Body weight 100.7 kg Shu Abbotter PA-C Work Phone: [employer]; [employer]. 10-04-2018 08:24-0500 Diastolic blood pressure 84 mm[Hg] Shu Chow PA-C Work Phone: [employer]; [employer]. Comment on above: Patient Position: Sitting; Cuff Location : Left Arm; Cuff Size: Standard 10-04-2018 08:24-0500 Heart rate 75 /min Shu Abbotter PA-C Work Phone: [employer]; [employer]. Comment on above: Pattern: Regular 10-04-2018 08:24-0500 Systolic blood pressure 150 mm[Hg] Shu Chow PA-C Work Phone: [employer]; [employer]. Comment on above: Patient Position: Sitting; Cuff Location : Left Arm; Cuff Size: Standard 04-22-2018 09:53-0400 Body height 152.4 cm Shu Haney Chow PA-C Work Phone: [employer]; [employer]. 04-22-2018 09:53-0400 Body mass index (BMI) [Ratio] 42.38 kg/m2 Shu Haney Chow PA-C Work Phone: [employer]; [employer]. 04-22-2018 09:53-0400 Body surface area Derived from formula 1.93 m2 Shu J Chow PA-C Work Phone: [employer]; [employer] 04-22-2018 09:53-0400 Body weight 98.43 kg Shu Abbotter PA-C Work Phone: [employer]. 04-22-2018 09:53-0400 Diastolic blood pressure 89 mm[Hg] Shu Abbotter PA-C Work Phone: [employer]. Comment on above: Patient Position: Sitting; Cuff Location : Left Arm; Cuff Size: Standard 04-22-2018 09:53-0400 Heart rate 73 /min Shu Abbotter PA-C Work Phone: [employer]; [employer]. Comment on above: Pattern: Regular 04-22-2018 09:53-0400 Inhaled oxygen concentration 20 % Shu Haney Chow PA-C Work Phone: [employer]; [employer]. Comment on above: Room air 04-22-2018 09:53-0400 Inhaled oxygen concentration 21 % Shu Haney Chow PA-C Work Phone: [employer]. Comment on above: Room air 04-22-2018 09:53-0400 SaO2% (BldA) [Mass fraction] 97 % Shu Abbotter PA-C Work Phone: [employer] 04-22-2018 09:53-0400 Systolic blood pressure 142 mm[Hg] Shu Haney Chow PA-C Work Phone: [employer]. Comment on above: Patient Position: Sitting; Cuff Location : Left Arm; Cuff Size: Standard 12-10-2017 10:05-0500 Body height 152.4 cm Roverto Lynch LPN [employer] 12-10-2017 10:05-0500 Body mass index (BMI) [Ratio] 42.77 kg/m2 [facility]overto [facility] HospitalSzl.it.; [employer] 12-10-2017 10:05-0500 Body surface area Derived from formula 1.94 m2 Roverto Rausch Keila PINEDA [place] [employer] [facility], Inc.; [employer] 12-10-2017 10:05-0500 Body weight 99.34 kg Roverto Rausch Keila PINED[employer] [place] [employer] [facility], Inc.; [employer] 12-10-2017 10:05-0500 Diastolic blood pressure 86 mm[Hg] Roverto Rausch Keila [facility] [employer] Comment on above: Patient Position: Sitting; Cuff Location : Right Arm; Cuff Size: Standard 12-10-2017 10:05-0500 Heart rate 83 /min Roverto Rausch Keila [facility] [employer] [facility], Inc.; [employer] Comment on above: Pattern: Regular 12-10-2017 10:05-0500 Systolic blood pressure 159 mm[Hg] Roverto Rausch Keila PINEDA [place] [employer] Comment on above: Patient Position: Sitting; Cuff Location : Right Arm; Cuff Size: Standard 11-09-2017 10:31-0500 Body height 152.4 cm Irish Solano LPN [employer] 11-09-2017 10:31-0500 Body mass index (BMI) [Ratio] 42.57 kg/m2 Irish Solano LPN [place] [employer] 11-09-2017 10:31-0500 Body surface area Derived from formula 1.94 m2 Irish Solano LPN [place] [employer] 11-09-2017 10:31-0500 Body weight 98.88 kg Irish Russ [facility].; [employer] 11-09-2017 10:31-0500 Diastolic blood pressure 93 mm[Hg] Irish Solano LPN [employer]. Comment on above: Patient Position: Sitting; Cuff Location : Left Arm; Cuff Size: Standard 11-09-2017 10:31-0500 Heart rate 72 /min Irish Cruzgretchen PINEDA [employer], [employer]. Comment on above: Pattern: Regular 11-09-2017 10:31-0500 Systolic blood pressure 156 mm[Hg] Irish Hopkinsstefanie PINEDA [facility], Inc.; [employer] Comment on above: Patient Position: Sitting; Cuff Location : Left Arm; Cuff Size: Standard 04-29-2017 11:02-0400 Body height 152.4 cm Irish Cruzgretchen PINEDA [employer], [employer]. 04-29-2017 11:02-0400 Body mass index (BMI) [Ratio] 41.99 kg/m2 Irish Cruzgretchen [facility] [employer] 04-29-2017 11:02-0400 Body surface area Derived from formula 1.93 m2 Irish Anthonygretchen [facility] Inc.; [employer] 04-29-2017 11:02-0400 Body weight 97.52 kg Irish Cruzgretchen [facility] Inc.; [employer], [employer]. 04-29-2017 11:02-0400 Diastolic blood pressure 84 mm[Hg] Irish Cruzluis angelshiva MACHINIST APPRENTICE WOOD [employer] Comment on above: Patient Position: Sitting; Cuff Location : Left Arm; Cuff Size: Standard 04-29-2017 11:02-0400 Heart rate 64 /min Irish Cruzgretchen PINEDA [employer]. Comment on above: Pattern: Regular 04-29-2017 11:02-0400 Systolic blood pressure 162 mm[Hg] Irish Solano MACHINIST APPRENTICE WOOD [employer]. Comment on above: Patient Position: Sitting; Cuff Location : Left Arm; Cuff Size: Standard 10-09-2016 12:49-0500 Body height 154.94 cm Hiral Dillon RN [place] [employer], [employer].; [employer], [employer]. 10-09-2016 12:49-0500 Body mass index (BMI) [Ratio] 39.87 kg/m2 Hiral Dillon RN [employer]. 10-09-2016 12:49-0500 Body surface area Derived from formula 1.93 m2 Hiral Dillon RN [employer]. 10-09-2016 12:49-0500 Body temperature 97.6 [degF] Hiral Dillon RN [employer].; [employer]. Comment on above: Method: Tympanic 10-09-2016 12:49-0500 Body weight 95.71 kg Hiral Dillon RN [employer]. 10-09-2016 12:49-0500 Diastolic blood pressure 89 mm[Hg] Hiral Dillon RN [employer].; [employer]. Comment on above: Patient Position: Sitting; Cuff Location : Right Arm; Cuff Size: Standard 10-09-2016 12:49-0500 Heart rate 78 /min Hiral Dillon RN [employer]. Comment on above: Pattern: Regular 10-09-2016 12:49-0500 Inhaled oxygen concentration 20 % Shu Chow PA-C Work Phone: [employer]; [employer]. Comment on above: Room air 10-09-2016 12:49-0500 Inhaled oxygen concentration 21 % Hiral Dillon RN [employer].; [employer]. Comment on above: Room air 10-09-2016 12:49-0500 SaO2% (BldA) [Mass fraction] 94 % Hiral Dillon RN [employer]. 10-09-2016 12:49-0500 Systolic blood pressure 157 mm[Hg] Hiral Dillon RN [employer].; [employer]. Comment on above: Patient Position: Sitting; Cuff Location : Right Arm; Cuff Size: Standard 04-24-2016 09:01-0400 Body height 154.94 cm Shu Abbotter PA-C Work Phone: [employer].; [employer]. 04-24-2016 09:01-0400 Body mass index (BMI) [Ratio] 40.43 kg/m2 Shu Abbotter PA-C Work Phone: [employer]. 04-24-2016 09:01-0400 Body surface area Derived from formula 1.94 m2 Shu Abbotter PA-C Work Phone: [employer].; [employer]. 04-24-2016 09:01-0400 Body weight 97.07 kg Shu Abbotter PA-C Work Phone: [employer].; [employer]. 04-24-2016 09:01-0400 Diastolic blood pressure 84 mm[Hg] Shu Abbotter PA-C Work Phone: [employer]. Comment on above: Patient Position: Sitting; Cuff Location : Left Arm; Cuff Size: Standard 04-24-2016 09:01-0400 Heart rate 67 /min Shu Abbotter PA-C Work Phone: [employer]; [employer]. Comment on above: Pattern: Regular 04-24-2016 09:01-0400 Systolic blood pressure 142 mm[Hg] Shu Abbotter PA-C Work Phone: [employer]. Comment on above: Patient Position: Sitting; Cuff Location : Left Arm; Cuff Size: Standard 10-03-2015 10:17-0500 Body height 154.94 cm Shu Abbotter PA-C Work Phone: [employer].; [employer]. 10-03-2015 10:17-0500 Body mass index (BMI) [Ratio] 41.1 kg/m2 Shu Haney Chow PA-C Work Phone: [employer].; [employer]. 10-03-2015 10:17-0500 Body surface area Derived from formula 1.96 m2 Shu aHney Chow PA-C Work Phone: [employer].; [employer]. 10-03-2015 10:17-0500 Body weight 98.66 kg Shu Abbotter PA-C Work Phone: [employer]. 10-03-2015 10:17-0500 Diastolic blood pressure 84 mm[Hg] Shu Abbotter PA-C Work Phone: [employer]. Comment on above: Patient Position: Sitting; Cuff Location : Left Arm; Cuff Size: Standard 10-03-2015 10:17-0500 Heart rate 61 /min Shu Abbotter PA-C Work Phone: [employer]; [employer]. Comment on above: Pattern: Regular 10-03-2015 10:17-0500 Systolic blood pressure 136 mm[Hg] Shu Abbotter PA-C Work Phone: [employer]. Comment on above: Patient Position: Sitting; Cuff Location : Left Arm; Cuff Size: Standard 04-04-2015 09:40-0400 Body height 156.46 cm Irish Solano LPN [place] [employer] [facility].; [email or web address] 04-04-2015 09:40-0400 Body mass index (BMI) [Ratio] 39.89 kg/m2 Irish Solano LPN [employer], [employer]. 04-04-2015 09:40-0400 Body surface area Derived from formula 1.96 m2 Irish Solano LPN [employer], [employer]. 04-04-2015 09:40-0400 Body weight 97.67 kg Irish Solano LPN [employer]. 04-04-2015 09:40-0400 Diastolic blood pressure 90 mm[Hg] Irish Russ PINEDA [place] [employer] [facility], [employer].; [employer]. Comment on above: Patient Position: Sitting; Cuff Location : Left Arm; Cuff Size: Standard 04-04-2015 09:40-0400 Heart rate 63 /min Irish Russ PINEDA [place] [employer] [facility], Inc.; [employer]. Comment on above: Pattern: Regular 04-04-2015 09:40-0400 Systolic blood pressure 178 mm[Hg] Irish Russ PINEDA [place] [employer]. Comment on above: Patient Position: Sitting; Cuff Location : Left Arm; Cuff Size: Standard 02-12-2015 18:30-0400 Body temperature 98 [degF] Sasha Shepherd LPN [place] [employer], [employer].; [employer]. 02-12-2015 18:30-0400 Body weight 95.71 kg Sasha Shepherd LPN [place] [employer] [facility], [employer].; [employer]. 02-12-2015 18:30-0400 Diastolic blood pressure 84 mm[Hg] Sasha Shepherd LPN [employer], [employer].; [employer]. Comment on above: Patient Position: Sitting; Cuff Location : Left Arm; Cuff Size: Standard 02-12-2015 18:30-0400 Heart rate 81 /min Sasha Shepherd LPN [place] [employer] [facility], [employer].; [employer]. Comment on above: Pattern: Regular 02-12-2015 18:30-0400 Inhaled oxygen concentration 20 % Sasha Shepherd LPN [place] [employer] [facility], [employer].; [employer]. Comment on above: Room air 02-12-2015 18:30-0400 Inhaled oxygen concentration 21 % Sasha Shepherd LPN [place] [employer] [facility], [employer].; [employer]. Comment on above: Room air 02-12-2015 18:30-0400 SaO2% (BldA) [Mass fraction] 96 % Sasha Shepherd LPN [place] [employer] [facility], Inc.; [employer] 02-12-2015 18:30-0400 Systolic blood pressure 155 mm[Hg] Sasha Shepherd LPN [facility] [email or web address]. Comment on above: Patient Position: Sitting; Cuff Location : Left Arm; Cuff Size: Standard 10-04-2014 09:50-0500 Body height 152.4 cm Shu J Chow PA-C Work Phone: [employer].; [email or web address] 10-04-2014 09:50-0500 Body mass index (BMI) [Ratio] 40.11 kg/m2 Shu Lyndon Chow PA-C Work Phone: [employer].; [place] [employer]. 10-04-2014 09:50-0500 Body surface area Derived from formula 1.89 m2 Shu J Chow PA-C Work Phone: [employer].; [employer] 10-04-2014 09:50-0500 Body weight 93.16 kg Shu Lyndon Chow PA-C Work Phone: [employer].; [employer] 10-04-2014 09:50-0500 Diastolic blood pressure 93 mm[Hg] Shu Lyndon Chow PA-C Work Phone: [employer].; [employer]. Comment on above: Patient Position: Sitting; Cuff Location : Left Arm; Cuff Size: Standard 10-04-2014 09:50-0500 Heart rate 73 /min Shu Lyndon Chow PA-C Work Phone: [employer].; [employer]. Comment on above: Pattern: Regular 10-04-2014 09:50-0500 Systolic blood pressure 171 mm[Hg] Shu Lyndon Chow PA-C Work Phone: [employer].; [employer]. Comment on above: Patient Position: Sitting; Cuff Location : Left Arm; Cuff Size: Standard 05-03-2014 10:13-0400 Body height 154.94 cm Shu Lyndon Chow PA-C Work Phone: [employer].; [employer] 05-03-2014 10:13-0400 Body mass index (BMI) [Ratio] 38.36 kg/m2 Shu Haney Chow PA-C Work Phone: [employer]; [employer]. 05-03-2014 10:13-0400 Body surface area Derived from formula 1.9 m2 Shu Haney Chow PA-C Work Phone: [employer].; [employer]. 05-03-2014 10:13-0400 Body weight 92.08 kg Shu Haney Chow PA-C Work Phone: [employer]; [employer]. 05-03-2014 10:13-0400 Diastolic blood pressure 110 mm[Hg] Shu Haney Chow PA-C Work Phone: [employer]; [employer]. Comment on above: Patient Position: Sitting; Cuff Location : Left Arm; Cuff Size: Standard 05-03-2014 10:13-0400 Heart rate 74 /min Shu Haney Chow PA-C Work Phone: [employer]; [employer]. Comment on above: Pattern: Regular 05-03-2014 10:13-0400 Systolic blood pressure 200 mm[Hg] Shu Haney Chow PA-C Work Phone: [employer]; [employer]. Comment on above: Patient Position: Sitting; Cuff Location : Left Arm; Cuff Size: Standard Encounters Encounter Date Encounter Type Care Provider Facility Start: 05-04-2025 ambulatory [facility] Facility :[facility] Start: 05-02-[address] Sherry Conn MD -[facility] Start: 05-02-2025 End: 05-02-2025 Patient encounter procedure Alyssa HAWKINS -[facility] Work Phone: Start: 05-02-2025 End: 05-02-2025 ambulatory Shu Chow PA Work Phone: -[facility] Start: 04-18-2025 End: 04-18-[address] [place] Conn MD -[facility] Work Phone: Start: 04-18-2025 End: 04-18-2025 ambulatory hSu Abbotter PA Work Phone: [facility] Work Phone: Start: 04-18-[address] Sherry Conn MD -[facility] Start: 04-04-[address] Sherry Conn MD -[facility] Start: 04-04-2025 End: 04-04-2025 Patient encounter procedure Alyssa AllenKeila PULL OVER MACHINE OPERATOR-C -[facility] Work Phone: Start: 04-04-2025 End: 04-04-2025 ambulatory Shu Chow PA Work Phone: [facility] Work Phone: Start: 03-24-2025 End: 03-24-2025 Patient encounter procedure [facility]u [facility]C [facility] Start: 03-24-2025 End: 03-24-2025 Periodic preventive med est patient 65yrs& older Shu Abbotter PA-C [facility]: [facility] Start: 03-21-[address] Sherry Conn MD -[facility] Start: 03-21-2025 End: 03-21-2025 Patient encounter procedure Alyssa AllenKeila PULL OVER MACHINE OPERATOR-C -[facility] Work Phone: Start: 03-21-2025 End: 03-21-2025 ambulatory Shu Abbotter PA Work Phone: [facility] Work Phone: Start: 03-20-2025 ambulatory Michael Gaines Facility :[facility] Start: 03-20-2025 Non-patient / Non-visit Dr. Storm PIRES -[facility] Start: 03-20-2025 End: 03-20-2025 Admission to same day surgery center Dr. Michael Gaines [facility] Start: 03-20-2025 End: 03-20-2025 ambulatory Shu Chow PA Work Phone: [facility] Work Phone: Start: 03-17-2025 End: 03-17[facility] Start: 03-15-2025 End: 03-15-[address] Michael Gaines MD -[facility] Work Phone: Start: 03-15-2025 End: 03-15-2025 ambulatory [facility] Work Phone: [facility] Work Phone: Start: 03-15-2025 End: 03-15-2025 Patient encounter procedure Alyssa Lynch NP-C -[facility] Work Phone: Start: 03-15-2025 End: 03-15-2025 ambulatory [facility] Work Phone: [facility] Work Phone: Start: 03-09-[address] Sherry Conn MD -[facility] Start: 03-09-2025 End: 03-09-[address] [place] Conn MD -[facility] Work Phone: Start: 03-09-2025 End: 03-09-2025 ambulatory [facility] Facility:[facility] Start: 03-06-2025 Non-patient / Non-visit Shikha Pleitez si, LPN -[facility] Work Phone: Start: 03-06-2025 ambulatory [facility] Facility :[facility] Start: 02-21-2025 End: 02-21-2025 Postop follow up visit related to original px Sachi Rosas MBBS Work Phone: Division of Colon & Rectal Surgery Comment on above: Malignant neoplasm o f ascending colon (Primary Dx) Start: 02-21-2025 ambulatory SHU Chiu ty:[facility] Start: 02-01-2025 End: 02-01-2025 Office outpatient visit 25 minutes Shu Chow PA-C Work Phone: [employer] [facility] [employer] Start: 02-01-2025 ambulatory AGATA Ellis ity:[facility] Start: 01-30-2025 End: 01-30-2025 Telephone follow-up Shu Chow PA-C Work Phone: [employer] Start: 01-29-2025 End: 01-29-2025 ambulatory Tricia Otero RN Oncology Nurse Wendi amador Start: 01-23-2025 End: 01-28-2025 Evaluation and management of inpatient Sachi LEGER Work Phone: [email or web address] Comment on above: Colon cancer Start: 01-16-2025 End: 01-16-2025 Orders Shu Chow PA-C Work Phone: [employer] Start: 01-16-2025 ambulatory SHU Chiu ty:[facility] Start: 01-13-2025 Review Shu Chow PA-C Work Phone: [employer] [facility] Start: 01-10-2025 ambulatory MACKENZIE REYES Facilit y:[facility] Start: 01-10-2025 End: 01-10-2025 Office outpatient new 45 minutes Mackenzie Reyes SUBACUTE NURSE-VENEER PRODUCTION MACHINE OPERATOR Work Phone: Pre-Procedure Evaluation and Assessment [facility] Comment on above: Preop exam for inter nal medicine (Primary Dx); Malignant neoplasm of ascending colon; Essential hypertension; Mixed hyperlipidemia; Abnormal coagulation profile Start: 01-10-2025 End: 01-10-2025 Patient encounter status Mackenzie Reyes SUBACUTE NURSE-VENEER PRODUCTION MACHINE OPERATOR Work Phone: [facility] Start: 01-10-2025 Encounter for other preprocedural examination MACKENZIE REYES Facility:[facility] Start: 01-10-2025 End: 01-10-2025 Clinical Support Encounter [facility] Humberto Payton 8 Work Phone: [facility] [place] Comment on above: Malignant neoplasm o f ascending colon (Primary Dx) Start: 01-10-2025 ambulatory MACKENZIEALEX REYES Facilit y:[facility] Start: 01-03-2025 ambulatory SHU Chiu ty:[facility] Start: 12-31-2024 ambulatory SHU Ellisi ty:[facility] Start: 12-31-2024 End: 12-31-2024 Subsequent hospital visit by physician Sachi LEGER Work Phone: [facility] Comment on above: Arrived Start: 12-06-2024 End: 12-06-2024 Office consultation new/estab patient 40 min Sachi LEGER Work Phone: Division of Colon & Rectal Surgery Comment on above: Malignant neoplasm o f ascending colon (Primary Dx) Start: 12-06-2024 ambulatory SHU Chiu ty:[facility] Start: 11-17-2024 End: 11-17-2024 ambulatory [facility] Start: 11-15-2024 Evaluation and manag ement of inpatient [facility] Start: 08-17-2024 End: 08-17-2024 ambulatory [facility] Start: 08-01-2024 End: 08-01-2024 ambulatory [facility] Start: 07-05-2024 End: 07-06-2024 Orders Shu Chow PA-C Work Phone: [employer] [facility] [employer]. Start: 06-27-2024 End: 06-27-2024 Patient encounter procedure Shu Chow PA-C Work Phone: [facility] [employer].; [facility]. Start: 06-27-2024 End: 06-27-2024 Periodic preventive med est patient 65yrs& older Shu Chow PA-C Work Phone: [employer]. Start: 05-04-2024 End: 05-06-2024 Orders Shu Chow PA-C Work Phone: [email or web address] Start: 02-05-2024 End: 02-05-2024 Office outpatient visit 25 minutes Shu Chow PA-C Work Phone: [email or web address] Start: 12-23-2023 End: 02-04-2024 ambulatory [facility] Start: 12-21-2023 End: 12-21-2023 ambulatory [place] Lyndon [facility] Start: 12-01-2023 End: 12-01-2023 ambulatory SHU Lyndon [facility] Start: 12-01-2023 End: 12-01-2023 Encounter for other preprocedural examination KALPESH BOLES [facility] Start: 11-23-2023 End: 11-23-2023 Patient encounter procedure Shu Chow PA-C Work Phone: [facility] Start: 11-23-2023 End: 11-23-2023 Preprocedural examination done Shu Chow PA-C Work Phone: [email or web address]. Start: 07-27-2023 End: 07-27-2023 Patient encounter procedure Shu Chow PA-C Work Phone: [email or web address]. Start: 07-20-2023 End: 07-20-2023 Orders Shu Chow PA-C Work Phone: [email or web address]. Start: 01-29-2023 End: 01-29-2023 Office outpatient visit 25 minutes Shu Chow PA-C Work Phone: [email or web address] Start: 08-18-2022 End: 08-18-2022 Orders Shu Chow PA-C Work Phone: [employer]. Start: 08-01-2022 End: 08-01-2022 Patient encounter procedure Shu Chow PA-C Work Phone: [employer]. Start: 04-16-2022 End: 04-16-2022 Orders Shu Chow PA-C Work Phone: [employer]. Start: 01-23-2022 End: 01-23-2022 Office outpatient visit 25 minutes Shu Chow PA-C Work Phone: [employer]. Start: 04-11-2021 End: 04-11-2021 Orders Shu Chow PA-C Work Phone: [employer]. Start: 01-23-2021 End: 01-23-2021 Office outpatient visit 15 minutes Shu Chow PA-C Work Phone: [employer]. Start: 01-09-2021 End: 01-09-2021 Office outpatient visit 25 minutes Shu Chow PA-C Work Phone: [employer]. Start: 06-25-2020 End: 06-25-2020 Orders Shu Chow PA-C Work Phone: [employer]. Start: 06-25-2020 End: 06-25-2020 Orders Shu Chow PA-C Work Phone: [employer]. Start: 06-18-2020 End: 06-18-2020 Patient encounter procedure Irish Solano LPN [employer]. Start: 05-03-2020 End: 05-07-2020 Orders Shu Chow PA-C Work Phone: [employer]. Start: 01-02-2020 End: 01-02-2020 Office outpatient visit 15 minutes Shu Chow PA-C Work Phone: [employer]. Start: 06-15-2019 End: 06-16-2019 Patient encounter procedure Irish Solano LPN [employer]. Start: 05-18-2019 End: 05-18-2019 Orders Shu Chow PA-C Work Phone: [employer]. Start: 11-04-2018 End: 11-04-2018 Office outpatient visit 25 minutes Shu Chow PA-C Work Phone: [employer]. Start: 10-04-2018 End: 10-04-2018 Office outpatient visit 15 minutes Shu Chow PA-C Work Phone: [employer]. Start: 04-26-2018 End: 04-26-2018 Orders Shu Chow PA-C Work Phone: [employer]. Start: 04-22-2018 End: 04-23-2018 Office outpatient visit 15 minutes Shu Chow PA-C Work Phone: [employer]. Start: 12-14-2017 End: 12-14-2017 Orders Shu Chow PA-C Work Phone: [employer]. Start: 12-10-2017 End: 12-13-2017 Patient encounter procedure Shu Chow PA-C Work Phone: [employer]. Start: 11-09-2017 End: 11-09-2017 Patient encounter procedure Irish Solano MACHINIST APPRENTICE WOOD [employer]. Start: 10-25-2017 End: 10-25-2017 Emergency department patient visit [facility] Facility:[place] Start: 09-04-2017 End: 09-04-2017 Orders Shu Chow PA-C Work Phone: [employer]. Start: 04-29-2017 End: 04-29-2017 Office outpatient visit 15 minutes Shu Chow PA-C Work Phone: [employer]. Start: 10-09-2016 End: 10-09-2016 Patient encounter procedure Shu Chow PA-C Work Phone: [employer]. Start: 04-24-2016 End: 04-24-2016 Patient encounter procedure Shu Chow PA-C Work Phone: [employer]. Start: 04-23-2016 End: 04-23-2016 Historical Summary Shu Chow PA-C Work Phone: [employer]. Start: 10-10-2015 End: 10-10-2015 Orders Shu Chow PA-C Work Phone: [employer]. Start: 10-03-2015 End: 10-03-2015 Patient encounter procedure Shu Chow PA-C Work Phone: [employer]. Start: 08-22-2015 End: 08-22-2015 Orders Shu Chow PA-C Work Phone: [employer]. Start: 04-04-2015 End: 04-04-2015 Patient encounter procedure Shu Chow PA-C Work Phone: [employer]. Start: 02-12-2015 End: 02-12-2015 Patient encounter procedure Shu Chow PA-C Work Phone: [employer]. Start: 10-04-2014 End: 10-04-2014 Patient encounter procedure Shu Chow PA-C Work Phone: [employer]. Start: 05-03-2014 End: 05-03-2014 Manual pelvic examination Shu ROLDANC Work Phone: [employer].; [employer]. Start: 05-03-2014 End: 05-03-2014 Patient encounter procedure Shu JAUREGUI-C Work Phone: [employer]. Admission to [facility] Shu JAUREGUI-C Work Phone: [employer].; [employer] Admission to [facility] Carlie Xiao MACHINIST APPRENTICE WOODRoosevelt General HospitalMisticom [facility] Inc.; [employer] [facility], [facility]. Admission to [facility] Roverto Lynch MACHINIST APPRENTICE WOOD [facility].; [facility], [facility] Admission to [facility] Amy Leonbrittanie [facility], [facility].; [facility] Manual pelvic examination Amy Edwardbrittanie [facility].; [facility], [facility] Patient encounter procedure Roverto Miracle Lynch LPN [facility].; [facility] Patient encounter procedure Amyjen Soriano [facility].; [facility] Procedures Date Procedure Procedure Detail Performing Clinician [...] abdo men 1 view Malick Mays Ricci SUBACUTE NURSE-VENEER PRODUCTION MACHINE OPERATOR Work Phone: Start: 01-28-2025 Assay of magnesium Giorgio Mares MD Work Phone: Start: 01-27-2025 Radiologic exam abdo men 1 view Malick Ricci SUBACUTE NURSE-VENEER PRODUCTION MACHINE OPERATOR Work Phone: Start: 01-27-2025 Assay of magnesium [...] Phone: Start: 01-10-2025 Antibody screen Mackenzie haley SUBACUTE NURSE-VENEER PRODUCTION MACHINE OPERATOR Work Phone: Start: 01-10-2025 Antibody screen MACKENZIE HALEY Comment on above: Performed By: #### X MPO #### [facility] (DEFAULT) [address] [place] [id number] Start: 01-10-2025 Blood typing serologic abo Mackenzie Noblesbrendanfrancis SUBACUTE NURSE-VENEER PRODUCTION MACHINE OPERATOR Work Phone: Start: 01-10-2025 CBC AND ELECTRONIC DIFF Mackenzie Reyes SUBACUTE NURSE-VENEER PRODUCTION MACHINE OPERATOR Work Phone: Start: 01-10-2025 Complete blood count with white cell differential, automated Mackenzie Reyes SUBACUTE NURSE-VENEER PRODUCTION MACHINE OPERATOR Work Phone: Start: 01-10-2025 Comprehensive metabo lic panel Mackenzie Reyes SUBACUTE NURSE-VENEER PRODUCTION MACHINE OPERATOR Work Phone: Start: 01-10-2025 PREPARE TO TRANSFUSE OR RED BLOOD CELLS Mackenzie Noblesmady SUBACUTE NURSE-VENEER PRODUCTION MACHINE OPERATOR Work Phone: Start: 12-31-2024 Creatinine blood Sachi [...] End: 08-28-2022 Screening mammography Roverto Rausch Keila MACHINIST APPRENTICE WOOD Comment on above: Normal. Start: 08-01-2022 End: 08-29-2022 Dxa bone density study 1/> sites axial skel Shu Lyndon Abbotter PA-C Work Phone: Start: 07-17-2022 End: 07-17-2022 Lab findings surveillance Roverto Rausch Markus ach MACHINIST APPRENTICE WOOD Comment on above: 98 CMP Start: 01-23-2021 [...] examination of cervical Papanicolaou smear Roverto Lynch MACHINIST APPRENTICE WOOD LMP Roverto M Schlaba ch MACHINIST APPRENTICE WOOD Comment on above: 64 LMP Roverto M Schlaba ch MACHINIST APPRENTICE WOOD Comment on above: 64 LMP Amy Soriano CCMA Comment on above: 64 Ophthalmic examinati on and evaluation Roverto Lynch MACHINIST APPRENTICE WOOD Comment on above: 4 years ago Ophthalmic examinati on and evaluation Roverto Lynch MACHINIST APPRENTICE WOOD Comment on above: 4 years ago Ophthalmic examinati on and evaluation Amy Soriano CCMA Comment on above: 4 years ago Plan of Treatment Date Care Activity Detail Author Start: 01-28-2026 Potassium [Moles/volume] in Serum or Plasma POTASSIUM [facility] Start: 08-17-2025 Screening for malignant neoplasm of colon COLORECTAL CANCER SCREENING DISCUSSION [facility] Start: 07-03-2025 Influenza vaccination INFLUENZA VACCINE (Season Ended) [facility] Start: 05-02-2025 Carcinoembryonic Ag [Mass/volume] in Serum or Plasma [facility] Start: 05-02-2025 Cobalamin (Vitamin B12) [Mass/volume] in Serum or Plasma [facility] Start: 05-02-2025 Ferritin [Mass/volume] in Serum or Plasma [facility] Start: 05-02-2025 Iron and Iron binding capacity panel - Serum or Plasma [facility] Start: 05-02-2025 Serum inorganic phosphate measurement [facility] Start: 05-02-2025 [facility] Start: 05-02-2025 Vital signs measurements [facility] Start: 04-18-2025 [facility] Start: 04-18-2025 Vital signs measurements [facility] Start: 04-04-2025 [facility] Start: 04-04-2025 Vital signs measurements [facility] Start: 03-24-2025 Patient encounter procedure Medical; [facility] - [facility] Start: 24-Mar-2025 08:20-04:00 JOELLE Chow [facility]ment [facility] Start: 03-21-2025 Carcinoembryonic Ag [Mass/volume] in Serum or Plasma [facility] Start: 03-21-2025 [facility] Start: 03-21-2025 Venous catheter care management [facility] Start: 03-21-2025 Vital signs measurements [facility] Start: 03-21-2025 [facility] Start: 03-20-2025 Anesthesia access central venous circulation ANESTH VASCULAR ACCESS [facility] Start: 03-20-2025 Insj tunneled ctr vad w/subq port age 4 yr/> INSERT TUNNELED CV CATH [facility] Start: 03-20-2025 Patient discharge [facility] Start: 03-17-2025 25 hydroxy includes fractions if performed [employer] [facility] Start: 03-17-2025 Assay of free thyroxine [email or web address] [employer] Start: 03-17-2025 Assay of thyroid stimulating hormone tsh [email or web address] [employer]. Start: 03-17-2025 Comprehensive metabolic panel [place] [employer] Start: 03-17-2025 Lipid panel [facility]; [facility]. Start: 03-17-2025 Blood count complete auto&auto difrntl wbc [facility]; [facility] Start: 03-17-2025 Nursing evaluation of patient and report Medical; Nurse visit - AWV. [facility] Start: 17-Mar-2025 09:00-04:00 NURSE, FLOAT [facility]ointment [facility] Start: 03-09-2025 Patient referral [facility] Work Phone: Start: 02-21-2025 End: 02-21-2025 Patient encounter procedure 02/21/2025 1:45 PM EDT Office Visit Division of Colon & Rectal Surgery [address] [phone] Sachi Rosas MBBS [address] [phone] Division of Colon & Rectal Surgery Start: 02-01-2025 Patient encounter procedure Medical; Hospital F/U - IPFU [facility] 01/[facility], R hemicolectomy sec. to colon [facility] Start: 01-Feb-2025 14:00-04:00 JOELLE Chow [facility]ment [facility] Start: 01-23-2025 End: 01-23-2025 Evaluation and management of inpatient 01/23/2025 7:15 AM EDT - 01/23/2025 12:15 PM EDT Surgery CCCT PERIOP [address] [place] [address] Sachi Rosas MBBS [address] [phone] COLECTOMY PARTIAL ROBOTIC XI RIGHT CCCT PERI[facility] Comment on above: COLECTOMY PARTIAL ROBOTIC XI RIGHT Start: 01-23-2025 End: 01-23-2025 Laparoscopy colectomy partial w/anastomosis COLECTOMY PARTIAL ROBOTIC XI RIGHT Malignant neoplasm of ascending colon 01/23/2025 7:15 AM EDT [facility] Start: 01-23-2025 Evaluation and management of inpatient 01/23/2025 5:15 AM EDT Hospital Encounter [facility] [address] [place] [phone] Sachi Rosas, MBBS 0 [address] [phone] Malignant neoplasm of ascending colon [facility] Comment on above: Malignant neoplasm of ascending colon Start: 01-16-2025 End: 01-16-2025 Anesthesia consultation 01/16/2025 2:00 PM EDT Pre-Operative Nurse Assessment [facility] [address] [place] [phone] Sachi Rosas, MBBS 0 [address] [place] [address] [facility] [place] [phone] [facility] Start: 01-03-2025 End: 01-03-2025 Telemedicine consultation with patient 01/03/2025 7:45 AM EST Telemedicine Division of Colon & Rectal Surgery [address] [place] [phone] Sachi Rosas, MBBS [address] [phone] Division of Colon & Rectal Surgery Start: 12-31-2024 End: 12-31-2024 Patient encounter procedure [facility] Start: 12-06-2024 End: 12-06-2025 CT Chest W contrast IV CT CHEST WITH CONTRAST Imaging Routine Malignant neoplasm of ascending colon Expected: 12/06/2024, Expires: 12/06/2025 [facility] Comment on above: Expected: 12/06/2024, Expires: Start: 12-06-2024 End: 12-06-2025 MR Abdomen WO and W contrast IV MRI ABDOMEN WITH AND WITHOUT CONTRAST Imaging Routine Malignant neoplasm of ascending colon Expected: 12/06/2024, Expires: 12/06/2025 [facility] Comment on above: Expected: 12/06/2024, Expires: Start: 2024 RSV VACCINE (1 - 1-dose 75+ series) RSV VACCINE (1 - 1-dose 75+ series) [facility] Start: 08-04-2024 Patient encounter procedure Medical; EXTENDED RTN - 6 mo rtn [facility] Start: 04-Aug-2024 13:10-04:00 JEOLLE Chow [facility]ment [facility] Start: 07-05-2024 Assay of thyroid stimulating hormone tsh TSH (THYROID STIMULATING HORMONE) (70851) Start: 05-Jul-2024 08:27-04:00 Request [email or web address] [employer]. Start: 07-05-2024 Lipid panel LIPID PANEL (97560) Start: 05-Jul-2024 08:25-04:00 Request [email or web address] [employer]. Start: 07-05-2024 Comprehensive metabolic panel CMP w/ GFR* (71893) Start: 05-Jul-2024 08:25-04:00 Request [email or web address] [employer]. Start: 07-05-2024 25 hydroxy includes fractions if performed Vitamin D, 25-Hydroxy, LC/MS/MS (70772) Start: 05-Jul-2024 08:25-04:00 Request [email or web address] [employer]. Start: 07-05-2024 Nursing evaluation of patient and report Medical; Nurse visit - Fasting Labs - MJP [email or web address] Start: 05-Jul-2024 08:20-04:00 NURSE, FLOAT Appointment Request [email or web address] Start: 07-03-2024 COVID-19 VACCINE () COVID-19 VACCINE () [facility] Start: 07-03-2024 Influenza vaccination INFLUENZA VACCINE (#1) [facility] Start: 06-28-2024 Assay of thyroid stimulating hormone tsh TSH (THYROID STIMULATING HORMONE) (94057) Start: 28-Jun-2024 Request [facility] Start: 06-27-2024 End: 06-27-2024 Ecg routine ecg w/least 12 lds w/i&r ELECTROCARDIOGRAM WITH INTERPRETATION (76994) Date: 27-Jun-2024 Comments: Sinus rhythm with occasional supraventricular complexes. [facility] Comment on above: Sinus rhythm with occasional supraventri cular complexes. Start: 06-27-2024 Patient encounter procedure Medical; PHYSICAL - Medicare wellness [email or web address] Start: 27-Jun-2024 14:00-04:00 JOELLE Chow Appointment Request [employer] Start: 06-27-2024 Screening digital breast tomosynthesis bi Mammogram 3D (tomosynthesis), bilateral (02206) Start: 27-Jun-2024 Intent [employer]; [employer] Start: 06-02-2024 25 hydroxy includes fractions if performed Vitamin D, 25-Hydroxy, LC/MS/MS (17822) Start: 02-Jun-2024 Request [employer]; [employer] Start: 06-02-2024 Comprehensive metabolic panel CMP w/ GFR* (91922) Start: 02-Jun-2024 Request [employer] Start: 06-02-2024 Lipid panel LIPID PANEL (61456) Start: 02-Jun-2024 Request [employer] Start: 06-02-2024 Nursing evaluation of patient and report Medical; Nurse visit - Medicare wellness fasting labs MJP [facility]. Start: 02-Jun-2024 08:40-04:00 NURSE, FLOAT Appointment Request [facility] Start: 02-04-2024 Patient encounter procedure [facility] Start: 11-23-2023 Ecg routine ecg w/least 12 lds w/i&r ELECTROCARDIOGRAM WITH INTERPRETATION (50751) Start: 23-Nov-2023 Intent Comments: Normal sinus rhythm [employer]; [employer] Comment on above: Normal sinus rhythm Start: 11-23-2023 Blood count complete auto&auto difrntl wbc CBC, PLATELETS & AUT DIFF (F) (45903) Start: 23-Nov-2023 10:46 Request [employer]; [employer] Start: 11-23-2023 Comprehensive metabolic panel CMP w/ GFR* (08046) Start: 23-Nov-2023 10:46 Request [employer]; [employer]. Start: 11-23-2023 Admission to same day surgery [facility]; EXTENDED RTN - preop [facility] R knee (surgery 12/21 [email or web address] Start: 23-Nov-2023 10:20 JOELLE Chow Appointment Request [email or web address] Start: 07-27-2023 Provider Instructions for Treatment [facility] HM Issues, 65+ female Indication: Medicare annual wellness visit, subsequent Start: 27-Jul-2023 Instruction Type: Provider Instructions for Treatment [email or web address] [employer]. Start: 1999 Pneumococcal vaccination PNEUMOCOCCAL VACCINE SERIES (1 of 1 - PCV) [facility] Start: 1999 Zoster vaccine hzv live for subcutaneous use ZOSTER (SHINGLES) VACCINE (1 of 2) [facility] Start: 1989 Lipid panel LIPID SCREENING [facility] Start: 1989 Screening for malignant neoplasm of breast MAMMOGRAM SCREENING DISCUSSION [facility] Start: 1970 Screening for malignant neoplasm of cervix CERVICAL CANCER SCREENING DISCUSSION [facility] Start: 1968 Third diphtheria, tetanus and acellular pertussis (DTaP) vaccination TDAP (ADULT) [facility] Start: 1949 Hepatitis C screening HEPATITIS C VIRUS SCREENING [facility] Start: 1949 Screening for osteoporosis DEXA SCAN DISCUSSION [facility] Start: 1949 Tetanus vaccination TETANUS [facility] Alanine aminotransfe rase [Enzymatic activity/volume] in Serum or Plasma [facility] Albumin [Mass/volume ] in Serum or Plasma [facility] Alkaline phosphatase [Enzymatic activity/volume] in Serum or Plasma [facility] Anion gap in Serum o r Plasma [facility] Bilirubin, total measurement [facility] BUN/Creatinine ratio [facility] Calcium [Mass/volume ] in Serum or Plasma [facility] Carbon dioxide, tota l [Moles/volume] in Central venous blood [facility] Carcinoembryonic Ag [Mass/volume] in Serum or Plasma [facility] Cobalamin (Vitamin B 12) [Mass/volume] in Serum or Plasma [facility] Creatinine [Mass/vol ume] in Serum or Plasma [facility] End: 12-31-2024 CT Chest W contrast IV [facility] Comment on above: 1 Occurrences starting 12/31/2024 until 12/31/2024 Ecg routine ecg w/le ast 12 lds w/i&r WY ECG ROUTINE ECG W/LEAST 12 LDS W/I&R WY - OFFICE PERFORMED Routine Preop exam for internal medicine Malignant neoplasm of ascending colon Essential hypertension Mixed hyperlipidemia Ordered: 01/10/2025 [facility] Comment on above: Ordered: 01/10/2025 Erythrocyte mean corpuscular volume determination [facility] Ferritin [Mass/volum e] in Serum or Plasma [facility] Glucose [Mass/volume ] in Serum or Plasma [facility] Hematocrit [Volume Fraction] of Blood [facility] Hemoglobin [Mass/vol ume] in Blood [facility] Iron [Mass/mass] in Unspecified specimen [facility] Iron and Iron bindin g capacity panel - Serum or Plasma [facility] Iron saturation [Mas s Fraction] in Serum or Plasma [facility] Leukocytes [#/volume ] in Blood [facility] Magnesium measurement [facility] Mean corpuscular hemoglobin concentration determination [facility] Mean corpuscular hemoglobin determination [facility] Measurement of renal function [facility] End: 12-31-2024 MR Abdomen WO and W contrast IV [facility] Comment on above: 1 Occurrences starting 12/31/2024 until 12/31/2024 Neutrophil count [facility] Neutrophil percent differential count [facility] Patient referral [facility] Work Phone: Platelets [#/volume] in Blood [facility] Potassium measurement [facility] Red blood cell count [facility] Red cell distributio n width determination [facility] Serum chloride measurement [facility] Serum inorganic phosphate measurement [facility] Sodium measurement [facility] SURG PATH REQUEST [facility] Comment on above: Release Upon Ordering for 1 Occurrences starting 01/23/2025, 1 completed Total iron binding capacity measurement [facility] Total protein measurement [facility] Urea nitrogen [Mass/volume] in Serum or Plasma [facility] Immunizations Immunization Date Immunization Notes Care Provider Zachary alfarolashay 06-18-2020 diphtheria, tetanus toxoids and acellular pertussis vaccine, unspecified formulation Shu Chow PA-C Work Phone: [employer] [employer] 10-02-2017 influenza, injectabl e, quadrivalent, contains preservative Shu Chow PA-C Work Phone: [employer]; [employer] 10-03-2015 ADMINISTRATION OF INFLUENZA VIRUS VACCINE (G0008) Shu Chow PA-C Work Phone: [employer]; [employer] 10-03-2015 influenza, seasonal, injectable Shu Chow PA-C Work Phone: [employer]; [employer] Comment on above: Site: Deltoid (Left) VIS Given: * Inactivated Influenza (06/08/2015) 10-02-2015 influenza virus vacc ine, unspecified formulation Shu Chow PA-C Work Phone: [employer]; [employer] 04-04-2015 pneumococcal polysaccharide vaccine, 23 valent Shu Chow PA-C Work Phone: [employer]; [employer] Comment on above: Site: Deltoid (Right )VIS Given: * Pneumococcal Polysaccharide (PPSV23) (08/07/09) 10-04-2014 influenza, seasonal, injectable Shu Chow PA-C [facility] Phone: [facility] Comment on above: Site: Deltoid (Right )VIS Given: * Influenza, Inactivated (0390-1620) 10-04-2014 pneumococcal conjuga te vaccine, 13 valent Shu Chow PA-C Work Phone: [facility] Comment on above: Site: Deltoid (Left) VIS Given: * Pneumococcal Conjugate (PCV13) (12/29/12) Payers Date Payer Category Payer Medicare [id number] 2025 Self-pay 2024 Medicare (Managed Care) MEDICARE [employer] PPO [id number] 2024 Medicare [id number] 1950 Unknown [id number] 2.16840.1.942387.3.579.2. 651 1949 Unknown [id number] 2.16840.1.114997.3.579.2. 651 1949 Unknown [id number] 2.16.840.1.960845.3.579.2. 651 1949 Unknown [id number] 2.16.840.1.578513.3.579.2. 651 1949 Unknown [id number] 2.16.840.1.358197.3.579.2. 651 1949 Unknown [id number] 2.16.840.1.061641.3.579.2. 651 1949 Unknown [id number] 2.16.840.1.626097.3.579.2. 651 1949 Unknown [id number] 2.16.840.1.898182.3.579.2. 594 1949 Unknown [id number] 2.16.840.1.849936.3.579.2. 594 1949 Unknown [id number] 2.16.840.1.266207.3.579.2. 594 1949 Unknown [id number] 2.16.840.1.852925.3.579.2. 594 1949 Unknown [id number] 2.16.840.1.104699.3.579.2. 594 1949 Unknown [id number] 2.16.840.1.685453.3.579.2. 594 1949 Unknown [id number] 2.16.840.1.140770.3.579.2. 594 1949 Unknown [id number] 2.16.840.1.753191.3.579.2. 594 1949 Unknown [id number] 2.16.840.1.389849.3.579.2. 594 1949 Unknown [id number] 2.16.840.1.670603.3.579.2. 594 1949 Unknown [id number] 2.16.840.1.496376.3.579.2. 594 Medicare [id number] Unknown Unknown [id number] 2.16.840.1.651972.3.579.2. 462 Unknown [id number] 2.16.840.1.533746.3.579.2. 462 Unknown [id number] 2.16.840.1.693444.3.579.2. 462 Unknown [id number] 2.16.840.1.510206.3.579.2. 462 Unknown [id number] 2.16.840.1.236243.3.579.2. 462 Unknown [id number] 2.16.840.1.424815.3.579.2. 462 Unknown [id number] 2.16.840.1.840415.3.579.2. 462 Unknown [id number] 2.16.840.1.905852.3.579.2. 462 Unknown [id number] 2.16.840.1.764288.3.579.2. 462 Unknown [id number] 2.16.840.1.166430.3.579.2. 462 Unknown [id number] 2.16.840.1.243640.3.579.2. 462 Social History Date Type Detail Facility Start: 12-06-2024 End: 02-21-2025 Caffeine Use [facility]affeine Use [facility] Marital status: Marital status: ; . [facility] [place] [employer] Tobacco Use: Tobacco Use: ; F ormer smoker. [facility] [place] [employer] [facility] Start: 1950 Female [facility] Start: 12-06-2024 End: 03-17-2025 Ex-smoker [facility] Work Phone: End: 12-06-2019 History of tobacco use Current smoker [facility] End: 12-06-2019 History of tobacco use Cigarette Smoker [facility] Start: 12-06-2024 Tobacco use and exposure Smokeless tobacco non-user [facility] Start: 12-06-2024 End: 01-24-2025 Alcoholic beverage intake Current drinker of alcohol (finding) [facility] Start: 12-06-2024 End: 02-21-2025 Tobacco use panel [facility] Adolescent depressio n screening assessment 0 [facility] Start: 12-06-2024 Alcohol Comment wine twice per year [facility] Start: 1950 Sex assigned at Not on file [facility] Start: 11-22-2024 Sex Female (finding) [facility] Start: 01-01-2025 Gender identity Identifies as female gender (finding) [facility] Start: 01-01-2025 Sexual orientation Heterosexual (fin gustavo) [facility] How often to you hav e a drink containing alcohol? Never [facility] Start: 02-21-2025 Alcoholic beverage intake Ex-drinker (finding) [facility] Start: 03-18-2021 Tobacco Use Tobacco Use [facility] Medical Equipment Procedure Code Equipment Code Equipment Origin al Text Equipment Identifier Dates Insertion, vascular access port ([id number]) Vascular port/catheter [id number] FDA Start: 03-20-2025 Goals Date Patient Goal Desired Activity /State Functional Status Date Assessment Result Facility 01-23-2025 Are you deaf, or do you have serious difficulty hearing No 01/23/2025 3:57 PM Yoav Liang RN No [facility] 01-23-2025 Are you blind, or do you have serious difficulty seeing, even when wearing glasses No 01/23/2025 3:57 PM Yoav Liang RN No [facility] 01-23-2025 Do you have serious difficulty walking or climbing stairs No 01/23/2025 3:57 PM Yoav Liang RN No [facility] 01-23-2025 Do you have difficul ty dressing or bathing No 01/23/2025 3:57 PM Yoav Liang RN No [facility] 01-23-2025 Because of a physica l, mental, or emotional condition, do you have difficulty doing errands alone such as visiting a physician's office or shopping No 01/23/2025 3:57 PM Yoav Liang RN No [facility] Mental Status Date Assessment Result Facility 03-20-2025 Cognitive function Voice/Name [facility] Work Phone: 01-23-2025 Because of a physica l, mental, or emotional condition, do you have serious difficulty concentrating, remembering, or making decisions No 01/23/2025 3:57 PM EDT Yoav Schwartz, RN No [facility] Clinical Notes 12-06-2024 to 05-02-2025 Note Date & Type Note Facility 05-02-2025 Progress note [facility] 05-02-2025 Progress note Note Date/Time May 02, 2025 9:23am [facility] [address] [place] [address] OFFICE VISIT Date of Service: 05/02/25 0800 MR#: [id number] Acct: [id number] Name: JESSIKA CARRILLO Rep #: [id number] : 1950 From: Alyssa Zavala ch PULL OVER MACHINE OPERATOR PULL OVER MACHINE OPERATOR-C Age/Sex: 74/F Location: [facility] [place] Status: Signed HPI Subjective Date of Service 05/02/25 Chief Complaint Colon cancer on treatment History of Present Illness 74-year-old female with no family of colon cancer had screening colonoscopy August 17, [address] [place]oles at [place] with 2 sessile polypoid lesions were found, [...] left kidney. Patient was then referred to [facility] for further management. December 31, 2024 [...] January 23, 2025 robotic right hemicolectomy at [facility] by Dr. Antonio. Pathology: Right colon [...] January 23, 2025 robotic right hemicolectomy at [facility]. March 21, 2025 adjuvant modified [employer] [...] abd pain, N/V, swelling of her extremities. [facility] Medical History Anemia Diarrhea due to drug [...] robotic assisted right hemicolectomy December 2024 at [facility]. There are 2 subcentimeter too small [...] Cosigner Signature: Date (if applicable) CC: ~ [place] [employer] Work Phone: [phone]) 739-602606-17-2025 Progress [facility] [address] [address] OFFICE VISIT Date of Service: 04/18/2529 MR#: [id number] Acct: [id number] Name: JESSIKA CARRILLO Rep #: [id number] : 1950 From: New peterson MD Age/Sex: 74/F Location: [facility] [place] Status: Signed HPI Subjective Date of Service 04/18/25 Chief Complaint Colon cancer on treatment History of Present Illness 74-year-old female with no family of colon cancer had screening colonoscopy August 17, 2024 by at [place] with 2 sessile polypoid lesions were found, [...] left kidney. Patient was then referred to [facility] for further management. December 31, 2024 [...] January 23, 2025 robotic right hemicolectomy at [facility] by Dr. Antonio. Pathology: Right colon [...] January 23, 2025 robotic right hemicolectomy at [facility]. March 21, 2025 adjuvant modified FOLFOX [...] Delivery Method room air room air Intake Board [employer] Secretary Required: No Accompanied by: Daughter Is patient [...] no focal motor deficits Coordination / Balance: zmdtmt-of-nddm test normal Speech: speech normal Gait (Neuro): [...] post robotic assistedright hemicolectomy December 2024 at [facility]. There are 2 subcentimeter too small [...] impression and plan discussed. [place] MD Job Service Consultant, [facility] Divisions of Medical Oncology & Hematology Department of Internal Medicine [place] [address] This note was generated using a voice [...] Cosigner Signature: Date (if applicable) CC: ~ [facility]06-17-2025 Progress note Author [place] [facility] Note Date/Time April 18, 2025 9:54 am [facility] [address] [address] OFFICE VISIT Date of Service: 04/18/25 0929 MR#: [id number] Acct: [id number] Name: JESSIKA CARRILLO Rep #: [id number] : 1950 From: New peterson MD Age/Sex: 74/F Location: [facility] [place] Status: Signed HPI Subjective Date of Service 04/18/25 Chief Complaint Colon cancer on treatment History of Present Illness 74-year-old female with no family of colon cancer had screening colonoscopy August 17, [address] Boles at [place] with 2 sessile polypoid lesions were found, [...] left kidney. Patient was then referred to [facility] for further management. December 31, 2024 [...] January 23, 2025 robotic right hemicolectomy at [facility] by Dr. Antonio. Pathology: Right colon [...] January 23, 2025 robotic right hemicolectomy at [facility]. March 21, 2025 adjuvant modified FOLFOX [...] Delivery Method room air room air Intake Board Of [employer] Secretary Required: No Accompanied by: Daughter Is patient [...] no focal motor deficits Coordination / Balance: liwumf-ha-fqqk test normal Speech: speech normal Gait (Neuro): [...] robotic assisted right hemicolectomy December 2024 at [facility]. There are 2 subcentimeter too small [...] impression and plan discussed. [place] MD Job Service Consultant, [facility] Divisions of Medical Oncology & Hematology Department of Internal Medicine [place] [address] This note was generated using a voice [...] Cosigner Signature: Date (if applicable) CC: ~ [place] [employer] Work Phone: 1(795) 890-749005-20-2025 Progress [facility] [address] [place] [address] OFFICE VISIT Date of Service: 03/21/25 0800 MR#: [id number] Acct: [id number] Name: JESSIKA CARRILLO Rep #: [id number] : 1950 From: Alyssa Zavala ch, NP PULL OVER MACHINE OPERATOR-C Age/Sex: 74/F Location: [facility] [place] Status: Signed HPI Subjective Date of Service 03/21/25 Chief Complaint Colon cancer History of Present Illness 74-year-old female with no family of colon cancer had screening colonoscopy August 17, 2024 by at [place] with 2 sessile polypoid lesions were found, [...] left kidney. Patient was then referred to [facility] for further management. December 31, 2024 [...] January 23, 2025 robotic right hemicolectomy at [facility] by Dr. Antonio. Pathology: Right colon [...] January 23, 2025 robotic right hemicolectomy at [facility]. March 21, 2025- mFOLFOX Interval History The patient is presenting to clinic accompanied by adult daughter, Don for an evaluation anticipating she will begin adjuvant mFOLFOX. No diarrhea. LBM 03/21/25. Reports active lifestyle and good support system by way of daughters. [facility] Medical History (Updated 03/21/25 @ 08:45 by Alyssa Lynch PULL OVER MACHINE OPERATOR, PULL OVER MACHINE OPERATOR-C) Encounter for chemotherapy management Loss of hearing [...] post robotic assistedright hemicolectomy December 2024 at [facility]. There are 2 subcentimeter too small [...] the past year?: No 03/21/25 0848 h PULL OVER MACHINE OPERATOR PULL OVER MACHINE OPERATOR-C> Date _ Alyssa Lynch PULL OVER MACHINE OPERATOR PULL OVER MACHINE OPERATOR-C Cosigner Signature: Date (if applicable) CC: ~ [facility]05-20-2025 Progress note Author Alyssa Lynch [facility] Note Date/Time March 21, 2025 8:48a m [facility] [address] [place] [address] OFFICE VISIT Date of Service: 03/21/25 0800 MR#: [id number] Acct: [id number] Name: JESSIKA CARRILLO Rep #: [id number] : 1950 From: Alyssa Zavala anita PULL OVER MACHINE OPERATOR PULL OVER MACHINE OPERATOR-C Age/Sex: 74/F Location: [facility] [place] Status: Signed HPI Subjective Date of Service 03/21/25 Chief Complaint Colon cancer History of Present Illness 74-year-old female with no family of colon cancer had screening colonoscopy August 17, [address] Boles at [place] with 2 sessile polypoid lesions were found, [...] left kidney. Patient was then referred to [facility] for further management. December 31, 2024 [...] January 23, 2025 robotic right hemicolectomy at [facility] by Dr. Antonio. Pathology: Right colon [...] January 23, 2025 robotic right hemicolectomy at [facility]. March 21, 2025- mFOLFOX Interval History The patient is presenting to clinic accompanied by adult daughter, Don for an evaluation anticipating she will begin adjuvant mFOLFOX. No diarrhea. LBM 03/21/25. Reports active lifestyle and good support system by way of daughters. [facility] Medical History (Updated 03/21/25 @ 08:45 by Alyssa Lynch PULL OVER MACHINE OPERATOR, PULL OVER MACHINE OPERATOR-C) Encounter for chemotherapy management Loss of hearing [...] robotic assisted right hemicolectomy December 2024 at [facility]. There are 2 subcentimeter too small [...] Cosigner Signature: Date (if applicable) CC: ~ [facility] Work Phone: 1(862) 395-525705-19-2025 Radiology Diagnostic study note [facility] Imaging Services [address] [place], [place] [address] CXR for Line Placement MR#: [id number] Acct: [id number] Name: JESSIKA CARRILLO Rep #: [id number] : 1950 F 74 From: Tomer Greco MD PCP: JUVENTINO Pérez Status: [facility] Study:CXR for Line Placement Date of Exam: 03/20/25 Exam# [id number] Ordering Dr: [place] Gaines MD PROCEDURE: [...] No infiltrates. 3. No pneumothorax. Reading [facility] CC: Dr. Michael Gaines MD; JUVENTINO Pérez ~ Assembler 1St Shift: Signed [facility]05-19-2025 Consult note [facility] Medical Records Department [address] [place] [address] Anesthesia Postop Eval II 03/20/25 1424 MR#: [id number] Acct: [id number] Name: JESSIKA CARRILLO Rep #:[id number] : 1950 74 From: Josue Ceballos MD PCP: JUVENTINO Pérez Status:REG SDC Y Race: C Location: [place] [address] Anesthesia Postop Eval I Sum Postop Eval Completion status Anesthesia document: Postop Eval 1 completed: Yes Anesthesia Postop Eval I Summary Anesthesia Postop Eval I Summary: Anesthesia Postop Eval I: Assessment Summary Airway patent Yes 03/20/25 13:18 PROGRAMMER ANALY[employer] Spontaneous unlabored Yes 03/20/25 13:18 PROGRAMMER [employer]NA[employer] respirations Mental status Awake 03/20/25 13:18 PROGRAMMER [employer] nausea No 03/20/25 13:18 PROGRAMMER [employer] Vomiting No 03/20/25 13:18 PROGRAMMER ANA[employer] Anesthesia Postop Eval I: Fluid Summary Crystalloid volume administer 500 03/20/25 13:18 PROGRAMMER ANA[employer] (ml) Colloids volume administered ( ml) Blood Product volume administered (ml) Total IV fluid infused 500 03/20/25 13:18 PROGRAMMER ANA[employer] Anesthesia Postop Eval I: Summary Notes Anesthesia Complication No 03/20/25 13:18 PROGRAMMER ANA[employer] Anesthesia Complication Comment: Post-operative progress note Anesthesia: Postop Eval II Evaluation Mental status: Awake Pain Level: 0 nausea: No Vomiting: No 03/20/25 1424 > Date _ Josue Smyth Signature: Date CC: ~ Signed [facility]05-19-2025 History and physical note Author Michael Gaines [facility] Note Date/Time March 20, 2025 12:07 pm [facility] Medical Records Department [address] [place] [address] History & Physical Exam 03/20/25 1205 MR#: [id number] Acct: [id number] Name: JESSIKA CARRILLO Rep #:[id number] : 1950 74 From: Michael Gaines MD PCP: JUVENTINO Pérez Status:[facility] Location: [place] [address] HPI - General General Date of Admission: 03/20/25 Date of Service: 03/20/25 Chief Complaint: Mediport placement HPI Narrative JESSIKA CARRILLO, is a 74 F who presents today for Mediport placement. She was recently discovered to have colon cancer. Her treating oncologist have recommended chemotherapy. She is supposed to begin chemotherapy I believe on March 21. [facility] Medical History Loss of hearing Wears glasses [...] Dr. Michael Gaines MD; JUVENTINO Pérez~ Signed [facility] Work Phone: 1(413) 796-880405-19-2025 Procedure note [facility] Medical Records Department [address] [place] [address] Operative Report 03/20/25 1321 MR#: [id number] Acct: [id number] Name: JESSIKA CARRILLO Rep #:[id number] : 1950 74 From: Michael Gaines MD PCP: JUVENTINO Pérez Status:[facility] Location: [place] [address] Problems Associated Problem List Diagnoses (1) Colon cancer: Procedures Cardiovascular CF Procedures 33xxx-39xxx: 59204 Insert tunneled cv cath Operative Report (Standard) Operative Information Date of Procedure: 03/20/25 Pre-Operative Diagnosis: Colon cancer Post-Operative Diagnosis: Colon cancer Surgery/Procedure Performed: Left subclavian Mediport placement with C arm monkey keeper: No Type of Anesthesia: Local and MAC [...] prophylaxis not ordered: Treatment Not Indicated 03/20/25 0729 Cosigner Signature (if applicable): CC: Dr. Michael Gaines MD; JUVENTINO Pérez~ Signed [facility]05-19-2025 Discharge summary [facility] Medical Records Department [address] [place] [address] Instructions for Home/Discharge Instructions 03/20/25 1316 MR#: [id number] Acct: [id number] Name: JESSIKA CARRILLO Rep #:[id number] : 1950 74 From: Michael Gaines MD PCP: JUVENTINO Pérez [place] [facility] [facility] [place] Instructions Diet Discharge Diet: Light diet [...] Care Provider: Shu Chow Instructions Print Language: Omani Discharge Orders/Prescriptions Prescriptions: New oxycodone-acetaminophen [Percocet] 5-325 [...] Gaines MD CC: JUVENTINO Pérez ~ Signed [facility]05-19-2025 Consult note [facility] Medical Records Department [address] [place] [address] Anesthesia Postop Eval I 03/20/25 1317 MR#: [id number] Acct: [id number] Name: FITOShivaJESSIKA E Rep #:[id number] : 1950 74 From: Ora Perez CRNA PCP: JUVENTINO Pérez Status:REG SDC Y Race: C Location: [place] [address] Anesthesia: Postop Eval I Current Vital Signs [...] CRNA Cosigner Signature: Date CC: ~ Signed [facility]05-19-2025 Consult note Author Josue Ceballos [facility] Note Date/Time March 20, 2025 11:16 am [facility] Medical Records Department [address] [place] [address] Pre-Anesthesia Evaluation 03/20/25 1115 MR#: [id number] Acct: [id number] Name: FITOShivaJESSIKA E Rep #:[id number] : 1950 74 From: Josue Ceballos MD [...] PORT LEFT Anesthesia History Anesthesia 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 - 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: Anesthesia History - 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 Hx Hospitalization No 03/17/25 11:44 Any Problems [...] take am of surgery PONV PONV - 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: PONV - 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 Female Yes 03/17/25 11:44 HX of Motion [...] 03/17/25 08:59 Respiratory Assessment Respiratory Assessment - 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: Respiratory Tract Infection Hx - 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 Hx Respiratory Tract Infection No 03/17/25 11:44 STOP Sleep Apnea STOP Sleep Apnea - 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: STOP Sleep Apnea - 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 Hx Hypertension Yes: controlled with med 03/17/25 [...] Tobacco Use History Tobacco Use History - 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: Tobacco Use History - 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 Tobacco Use Non-smoker 03/18/21 09:51 Smoking Status Former smoker 03/17/25 11:44 Hx Tobacco Use No 03/17/25 11:44 Years Smoking Packs Smoked per Day Smoking Cessation Date was No - quit smoking greater 03/17/25 11:44 within the last 15 years than 15 years ago Hx Smoking Cessation Date 11/02/89 03/17/25 11:44 Hx Smoking Cessation No 03/17/25 11:44 Counseling Hematologic Medial History Hematologic Hx - 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: Hematologic Medical Hx - convention services director Hx of Blood Transfusion No 03/17/25 11:44 [...] confused, unrespo /Reproduction History /Reproductive History - 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: /Reproductive Hx- 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 Hx Now Gestational Age (in weeks): EDC: [...] MD Cosigner Signature: Date CC: ~ Signed [facility] Work Phone: 1(575) 669-262005-19-2025 History and physical note [facility] Medical Records Department [address] [place] [address] History & Physical Exam 03/20/25 1205 MR#: [id number] Acct: [id number] Name: JESSIKA CARRILLO Rep #:[id number] : 1950 74 From: Michael Gaines MD PCP: JUVENTINO Pérez [place] [facility] [place] Location: [address] HPI - General General Date of Admission: 03/20/25 Date of Service: 03/20/25 Chief Complaint: Mediport placement HPI Narrative JESSIKA CARRILLO, is a 74 F who presents today for Mediport placement. She was recently discovered to have colon cancer. Her treating oncologist have recommended chemotherapy. She is supposed to begin chemotherapy I believe on March 21. [facility] Medical History Loss of hearing Wears glasses [...] Dr. Michael Gaines MD; JUVENTINO Pérez~ Signed [facility]05-19-2025 [facility] Medical Records Department [address] [place] [address] History Physical Exam 03/20/25 1205 MR#: [id number] Acct: [id number] Name: JESSIKA CARRILLO Rep #: [id number] : 1950 74 From: Michael Gaines MD PCP: JUVENTINO Pérez Status:[facility] Location: [place] [address] HPI - General General Date of Admission: 03/20/25 Date of Service: 03/20/25 Chief Complaint: Mediport placement HPI Narrative JESSIKA CARRILLO, is a 74 F who presents today for Mediport placement. She was recently discovered to have colon cancer. Her treating oncologist have recommended chemotherapy. She is supposed to begin chemotherapy I believe on March 21. [facility] Medical History Loss of hearing Wears glasses [...] Dr. Michael Gaines MD; JUVENTINO P[facility]rez [facility] Consult note [facility] Medical Records Department [address] [place] [address] Pre-Anesthesia Evaluation 03/20/25 1115 MR#: [id number] Acct: [id number] Name: JESSIKA CARRILLO Rep #:[id number] : 1950 74 From: Josue Ceballos MD PCP: JUVENTINO Pérez Status:REG SDC Y Race: C Location: [place] [address]- ASA Classification* ASA Classification ASA Classification: 2 [...] PORT LEFT Anesthesia History Anesthesia History - 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: Anesthesia History - 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 Hx Hospitalization No 03/17/25 11:44 Any Problems [...] take am of surgery PONV PONV - 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: PONV - 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 Female Yes 03/17/25 11:44 HX of Motion [...] 03/17/25 08:59 Respiratory Assessment Respiratory Assessment - 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: Respiratory Tract Infection Hx - 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 Hx Respiratory Tract Infection No 03/17/25 11:44 STOP Sleep Apnea STOP Sleep Apnea - 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: STOP Sleep Apnea - 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 Hx Hypertension Yes: controlled with med 03/17/25 [...] Tobacco Use History Tobacco Use History - 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: Tobacco Use History - 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 Tobacco Use Non-smoker 03/18/21 09:51 Smoking Status Former smoker 03/17/25 11:44 Hx Tobacco Use No 03/17/25 11:44 Years Smoking Packs Smoked per Day Smoking Cessation Date was No - quit smoking greater 03/17/25 11:44 within the last 15 years than 15 years ago Hx Smoking Cessation Date 11/02/89 03/17/25 11:44 Hx Smoking Cessation No 03/17/25 11:44 Counseling Hematologic Medial History Hematologic Hx - 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: Hematologic Medical Hx - convention services director Hx of Blood Transfusion No 03/17/25 11:44 [...] confused, unrespo /Reproduction History /Reproductive History - 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: /Reproductive Hx- 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 Hx Now Gestational Age (in weeks): EDC: [...] Josue Ramos Signature: Date CC: ~ Signed [facility]05-14-2025 Progress [facility] [address] OFFICE VISIT Date of Service: 03/15/25 0805 MR#: [id number] Acct: [id number] Name: JESSIKA CARRILLO Rep #: [id number] : 1950 From: Alyssa Zavala anita MELLO PULL OVER MACHINE OPERATOR-C Age/Sex: 74/F Location: [facility] [place] Status: Signed HPI Subjective Date of Service 03/15/25 Chief Complaint Colon cancer History of Present Illness 74-year-old female with no family of colon cancer had screening colonoscopy August 17, 2024 by at [place] with 2 sessile polypoid lesions were found, [...] left kidney. Patient was then referred to [facility] for further management. December 31, 2024 [...] January 23, 2025 robotic right hemicolectomy at [facility] by Dr. Antonio. Pathology: Right colon [...] January 23, 2025 robotic right hemicolectomy at [facility]. Interval History The patient is presenting to clinic accompanied by adult daughterDon for an education visit. No diarrhea, has not identified any aggravating foods. Reports active lifestyle and good support system by way of daughters. [facility] Medical History (Updated 03/15/25 @ 08:16 by Alyssa Lynch PULL OVER MACHINE OPERATOR, PULL OVER MACHINE OPERATOR-C) Encounter for education Lung nodules Regional lymph [...] post robotic assistedright hemicolectomy December 2024 at [facility]. There are 2 subcentimeter too small [...] the past year?: No 03/15/25 0930 h PULL OVER MACHINE OPERATOR PULL OVER MACHINE OPERATOR-C> Date _ Alyssa Lynch PULL OVER MACHINE OPERATOR PULL OVER MACHINE OPERATOR-C Cosigner Signature: Date (if applicable) CC: ~ [facility]05-14-2025 Progress note Author Alyssa Lynch [facility] Note Date/Time March 15, 2025 9:30a m [facility] [place] [address] OFFICE VISIT Date of Service: 03/15/25804 MR#: [id number] Acct: [id number] Name: JESSIKA CARRILLO Rep #: [id number] : 1950 From: Alyssa Zavala ch PULL OVER MACHINE OPERATOR PULL OVER MACHINE OPERATOR-C Age/Sex: 74/F Location: [facility] [place] Status: Signed HPI Subjective Date of Service 03/15/25 Chief Complaint Colon cancer History of Present Illness 74-year-old female with no family of colon cancer had screening colonoscopy August 17, [address] Boles at [place] with 2 sessile polypoid lesions were found, [...] left kidney. Patient was then referred to [facility] for further management. December 31, 2024 [...] January 23, 2025 robotic right hemicolectomy at [facility] by Dr. Antonio. Pathology: Right colon [...] January 23, 2025 robotic right hemicolectomy at [facility]. Interval History The patient is presenting to clinic accompanied by adult daughter, Don for an education visit. No diarrhea, has not identified any aggravating foods. Reports active lifestyle and good support system by way of daughters. [facility] Medical History (Updated 03/15/25 @ 08:16 by Alyssa Lynch PULL OVER MACHINE OPERATOR, PULL OVER MACHINE OPERATOR-C) Encounter for education Lung nodules Regional lymph [...] robotic assisted right hemicolectomy December 2024 at [facility]. There are 2 subcentimeter too small [...] 0930 <Electronically signed by Alyssa li NP PULL OVER MACHINE OPERATOR-C> Date _ Alyssa Lynch NP PULL OVER MACHINE OPERATOR-C Cosigner Signature: Date (if applicable) CC: ~ [facility] Work Phone: 1(594) 679-643905-08-2025 Evaluation note* Diagnosis Onset Date Resolution Status [...] present acute March 15, 2025 7 :58am [place] [employer] [facility] Work Phone: 1(478) 819-448705-08-2025 Evaluation note* Diagnosis Onset Date Resolution Status [...] 9:51am Colon cancer acute March 20 11:03am [facility] Work Phone: 1(552) 484-996305-08-2025 Evaluation note* Diagnosis Onset Date Resolution Status [...] present acute March 21, 2025 7 :21am [facility] Work Phone: 1(287) 304-742905-08-2025 Evaluation note* Diagnosis Onset Date Resolution Status [...] present acute April 04, 2025 7 :42am [place] [employer] Work Phone: 1([phone]) 300-489005-08-2025 Evaluation note* Diagnosis Onset Date Resolution Status [...] [facility] Work Phone: 1(769) 517-226605-08-2025 Evaluation note* Diagnosis Onset Date Resolution Status [...] [facility] Work Phone: 1(957) 500-133704-22-2025 History of Present illness Narrative* Malick Ricci, SUBACUTE NURSE-VENEER PRODUCTION MACHINE OPERATOR - 02/21/2025 1:45 PM EDT Chief Complaint: [...] Referral to oncology. Prefer to establish with [facility] as this is closer to home. Referral placed and faxed. Patient was seen in conjunction with Dr. Rosas and the plan of care was developed by him. [facility] * AFRICA Thomas - 02/21/2025 1:45 PM EDT I saw and evaluated the patient with PULL OVER MACHINE OPERATOR. I personally reviewed the chart / imaging [...] on as needed basis. [facility] Instructions* Patient Instructions* Irish Boyce RN - 02/21/2025 1:45 PM EDT Survey Following your visit today, you may receive a survey via text or email asking about your experience. We are always looking for ways to improve your visit. Please share your feedback and comments withus- We would love to hear from you! documented [facility] Telephone encounter Note* Telephone Encounter - Tricia Otero RN - 01/29/2025 12:15 PM EDT AUTOMATED POST DISCHARGE FOLLOW UP CALL Jessika Carrillo received an automated post discharge call on 01/29/2025 , after discharge from the hospital yesterday. An alert in the [employer]) system was received after the patient completed the automated call assessment. The ([employer] System) Alert, medical record, and discharge summary were reviewed. A call back to the patient was then placed to the patient on 01/29/2025. [employer] Questionnaire with Alert: Feedback and alerts Question [...] the patient with regard to the (above) [employer] post- discharge alerts. In discussion of how [...] appointments with your primary doctor at the [facility]? Yes 02/21/2025 1:45 PM Sachi Rosas Division of Colon & Rectal Surgery Arrive at: Arrive to [facility] Registration [phone] How do you plan to get to [...] that this number is routed to the [facility] Clinical Call Center nurse triage team [...] s office, which is routed to the [facility] Call [place] nurse triage team afterhours. Discussed emergency plan with patient. If patient has a medical emergency, patient instructed to call 911, or proceed to their nearest emergency room. Assisted the patient to formulate a plan, such as keeping all healthcare provider numbers in a prominent place. Tricia Otero RN, BSN, OCN [facility] Post Discharge Call Team & Nurse Clinical Call Center Team [facility]03-30-2025 Miscellaneous Notes* Telephone Encounter - Tricia Otero RN - 01/29/2025 12:15 PM EDT AUTOMATED POST DISCHARGE FOLLOW UP CALL Jessika Carrillo received an automated post discharge call on 01/29/2025 , after discharge from the hospital yesterday. An alert in the [employer]) system was received after the patient completed the automated call assessment. The ([employer] System) Alert, medical record, and discharge summary were reviewed. A call back to the patient was then placed to the patient on 01/29/2025. [employer] Questionnaire with Alert: Feedback and alerts Question [...] the patient with regard to the (above) [employer] post- discharge alerts. In discussion of how [...] appointments with your primary doctor at the [facility]? Yes 02/21/2025 1:45 PM Sachi Rosas Division of Colon & Rectal Surgery Arrive at: Arrive to [facility] Registration [phone] How do you plan to get to [...] that this number is routed to the [facility] nurse triage team after hours. Do [...] s office, which is routed to the [facility] [place] nurse triage team afterhours. Discussed emergency plan with patient. If patient has a medical emergency, patient instructed to call 911, or proceed to their nearest emergency room. Assisted the patient to formulate a plan, such as keeping all healthcare provider numbers in a prominent place. Tricia Otero RN, BSN, OCN [facility] Post Discharge Call Team & Nurse Clinical Call Center Team documented in this encounter[facility] Nurse Note* Nursing Notes - Reyna Maher RN - 01/28/2025 12:28 PM EDT AVS read to pt and family they voice understanding. IV's removed. Meds reviewed. Pt d/c'd in stablecondition at this time. [facility]03-29-2025 Miscellaneous Notes* Nursing Notes - Reyna Maher [...] Transport Request Mode of Transfer Private Vehicle [facility] [place] PCR Discharge Note Jessika Carrillo was discussed [...] & Rectal Surgery Arrive at: Arrive to [facility] Floor Registration [facility] Risk of Readmission: 2.9% Risk of Readmission: [...] and weekend discharge assistance please page the stone crusher operator PCRM at [phone]. PCRM to continue to follow and provide support. Natalia Etienne RN Float PCRM [phone] * Nursing Notes - Reyna Maher RN [...] Cowart PT , DPT, CLT License #: [id number] * Nursing Notes - Lianna Charles RN - 01/25/2025 8:09 PM EDT 1956 (R) PIV Infiltrated and removed. Pictured in chart along with abdominal sites 2007 Contacted stone crusher operator regarding [id number] Jessika Carrillo. Pt's BP 191/111 (MAP 144). Hx HTN. Resting in bed. Denied pain/symptoms. No PRN for increased BP. Looks like she was elevated during the day as well. CB [id number] Inquired about tele order due to labetalol admin instructions 0420 Contacted stone crusher operator regarding [id number] Jessika Carrillo. Pt reports having three loose black stools on shift. Patient states that this has been ongoing postoperatively. She was wondering if there was anything to help w/ BM. CB [phone] * Plan of Care - Nelly Ramirez RN - 01/25/2025 5:32 PM EDT Problem: Adult Inpatient Plan of Care Goal: Optimal Comfort and Wellbeing Intervention: Monitor Pain and Promote Comfort Flowsheets (Taken 01/25/2025 1731) Pain Management Interventions: tlzzkh-lov-lfwla dosing utilized diversional activity provided pain management [...] Transport Request Mode of Transfer Private Vehicle [facility] [place] PCRM Discharge Note Jessika Carrillo was discussed [...] & Rectal Surgery Arrive at: Arrive to [facility] First Floor Registration [facility] Risk of Readmission: 2.9% Risk of Readmission: [...] and weekend discharge assistance please page the stone crusher operator PCRM at [phone]. PCRM to continue to follow and provide support. Natalia Etienne RN Float PCRM [phone] * Nursing Notes - Miracle Etienne RN - 01/24/2025 10:45 AM EDT 01/24/25 1045 Referral Information Arrived From operating room Readmission Information Was patient readmitted within 30 Days? No Information Source Information Source patient ;child Information Source Name Lucy Rosen Information Source Number [phone] Outpatient Providers Outpatient Providers Updated In IHIS Yes Contact Information Tower Observer/SW Added to Care Team Yes This Marketing Database Consultant is Primary Tower Observer/SW No Tower Observer Name Natalia Etienne Tower Observer's Social Work Contact Name Cluster coverage. Tele Marketing Executive's Phone Number see care team. Living Environment Lives With alone (daughter Don lives close by) Living Arrangement and Set Up house Provides Primary Care For no one Caregiving Concerns NA Primary Care Provided By self Support System Immediate family;Rastafarian;Extended family;Friends;Neighbors Able to Return to Prior Arrangements [...] Yes Initial Discharge Planning Home Care Services (FUNERAL HOME DIRECTOR) No Home Therapies (FUNERAL HOME DIRECTOR) None DME (FUNERAL HOME DIRECTOR) None Medical Supplies (FUNERAL HOME DIRECTOR) None Patient Goal for Discharge Get better Anticipated Services at Discharge Outpatient clinical services (ie: lab draws, transfusions, injectables) Anticipated Changes Related to Illness none Current Discharge Risk chronically ill Transportation Available car Discharge Coordination/Progress pt to DC to home once medically stable. Home Care Services (FUNERAL HOME DIRECTOR) Additional Home Care Services (FUNERAL HOME DIRECTOR) no Assessment/Concerns to be Addressed Concerns To [...] great support from her friends, neighbors and judaism. She hs no HHC or DME and denies needs. Family will transport to home. She follows with Dr Roass. Reason for Admission: 74 y.o. female with [...] provide support. Natalia Etienne RN Float PCR [phone] For evening and weekend discharge assistance please page the stone crusher operator PCRM at [phone]. * Plan of Care - Alberta Cowart, [...] Cowart PT , DPT, CLT License #: [id number] * Plan of Care - Leobardo Garcia [...] sign off at this time. Please call [phone] or page [phone] with any questions or concerns. Glendy Simms MD Anesthesiology * Nursing Notes - Yoav Schwartz RN - 01/23/2025 3:00 PM EDT On admission to [facility], from PACU a dual RN initial assessment [...] - 01/23/2025 11:27 AM EDT Jessika Carrillo ([id number]) PRE OPERATIVE DIAGNOSIS Malignant neoplasm of ascending [...] Anesthesiologist: George Negron MD; Michael Blank MD Regulatory Affairs Director Assisting: Tanmay Martinez DDS SURGICAL STAFF Lamp Stack Developer: Whitney Castillo RN Physician Final Cigar And Box Examiner: Casi Kinney PA-C Relief Lamp Stack Developer: Nelly Fuentes RN Relief Scrub: Chirag Sunshine; [...] 12:41 PM EDT documented in this encounterU [facility] History of Present illness Narrative* Breann Mar RN - 01/28/2025 12:15 PM EDT PCRM received message from bedside RN asking about home PT. Reviewed EMR, PT recommending OP rehab services. Team placed order for OP rehab. PCRM placed hand off for primary PCRM to schedule and follow up with the patient. ISAIAS Mcneal RN OCN Float PCRM Pager: [phone] ext [phone] Float Pager: [phone] If any changes to this individualized plan of care during evening and weekend hours and assistance is needed, please page the stone crusher operator PCRM at [phone]. * Zainab Rosas MD - 01/28/2025 9:13 [...] agreement. Zainab Rosas MD * Malick Ricci APRN-VENEER PRODUCTION MACHINE OPERATOR - 01/27/2025 7:00 AM EDT Colorectal Surgery [...] sitting. x2 minutes, Mobility Assessment/Intervention: Rolling/Turning Mobility Constable Level: Rolling/Turning: independent Bed Features/Set-up: Rolling/Turning: Flat Skilled Intervention/Details: Rolling/Turning: use of log roll technique Supine to Sit Mobility Constable Level: Supine->Sit: independent Bed Features/Set-up: Supine->Sit: Flat Skilled Intervention/Details: Supine->Sit: use of log roll technique Sit to Supine Mobility Constable Level: Sit->Supine: independent Bed Features/Set-up: Sit->Supine: Flat Skilled Intervention/Details: Sit->Supine: use of log roll technique Transfer Assessment/Intervention: Sit to Stand Transfer Constable Level: Sit->Stand: independent Skilled Intervention/Details: Sit->Stand: from chair and EOB Stand to Sit Transfer Constable Level: Stand->Sit: independent Skilled Intervention/Details: Stand->Sit: to EOB and chair Bed-Chair Transfer Constable Level: Bed<->Chair: independent Skilled Intervention/Details: Bed<->Chair: walked around bed x 10 feet to chair on other sideof the room without the use of the FWW. did demonstrate bilateral trendelenberg Gait/Functional Mobility Assessment/Intervention: Gait Assessment Constable Level: Gait: modified independence Assistive Device: Gait: gait belt, front-wheeled walker Ambulation Distance (Feet): 800 Skilled Intervention/Details - Gait: demonstrated improved mike this session from previous session Stairs Assessment/Intervention: Outcome Score(s): CURRENT [facility] Basic Mobility Inpatient Short Form Turning over in bed: 4 - No Assistance Moving from lying on back to sittin - No Assistance Moving to and from bed to chair: 4 - No Assistance Sitting/standing from chair: 4 - No Assistance Walk in hospital room: 4 - No Assistance Climbing 3-5 steps with a railin - A Little Assistance CURRENT [facility] Mobility Raw Score: 23 CURRENT [facility] Mobility Functional Limitation: 11.20% Impaired in Basic [...] Cowart PT , DPT, CLT License #: [id number] PT treatment consisted of the following to progress towards the above goal(s): PT Evaluation and Treatment Time Therapeutic Activity Time Entry: 15 Treating Therapist: Alberta Cowart PT , DPT, CLT License #: [id number] Additional Details: PT Co-Eval/Treatment Information Co-evaluation/co-treatment performed?: [...] Physical Therapy Discharge Summary. * Malick Ricci, SUBACUTE NURSE-VENEER PRODUCTION MACHINE OPERATOR - 01/26/2025 7:15 AM EDT Colorectal Surgery [...] EDT Introduced self and role of the network systems engineer to patient/family. Provided emotional and spiritual support and the patient/family responded by sharing their experience and discussed the following: Patient sitting in chair, no family present. Patient reports that she is doing ok, has family here to support her who are just not in the room at this time. Offered active listening, comfort, supportand prayer. Patient/family encouraged to request a network systems engineer as needed. Chaplains are available in-house 24 hours a day and 7 days a week. For urgent matters in the [facility],please page [phone]. If the request is not urgent, please enter a consult. Consults are responded to within 24 hours. Wardrobe Manager Grace Garcias, Crow,MAHL, BCC Senior [facility] Bass 12, 18, 19 25/05 On-Call Pager [place] ([phone]) 01/25/25 1500 Clinical Encounter Type Visited With Patient Visit Type Introduction Pastoral Time Spent 15 min Referral (Rounding) Sikh Encounters Sikh Needs Prayer Spiritual Assessment Emotional Observation Coping well Hope Observation Specific hope focus Support Observation By Family Interventions Provided Active listening;Prayer;Supportive presence Facilitated Verbalization of feelings Explored Expectations Graphics Specialist Education Graphics Specialist Service Available Yes Educated Patient Plan of Care Continue Visiting PRN * Shila Lantigua, CHIEF BUILDING INSPECTOR - 01/25/2025 1:41 PM EDTSummary: Psychosocial Assessment Psychosocial Assessment Per chart review, patient is a 74 y.o., female, who was 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 SW met with patient and daughters to introduce self, explain child protective services social worker role during inpatient stay, and answer questions. Patient was alert and oriented x4 and agreeable to SW visit. Contact Information: Tower Observer Name: Please see care team Social Work Contact Name: Please see care team Advance Directive Discussion: Patient does not have any advance directives on file. SW inquired whether or not patient is interested in completing health care power of ambulatory service representative and/or living will paperwork during this admission. [...] does NOT have to be completed at [facility] and canbe completed in the [...] of feelings and emotions. ALEKS Henry IRP Tele Marketing Executive PH: [phone] For Evening (4:30pm-8am), Weekend, and Holiday SW needs please call [phone] or page [phone]. * France Rooney RN - 01/25/2025 10:33 AM EDT Jessika Carrillo's POC discussed this morning in multidisciplinary rounds. Patient will discharge today as anticipated. [facility] All four prescriptions have been processed through insurance for knot picker cloth. Total co-pay is $4.00. PCRM met with [...] needed. France ESPARZA, RN, PCRM Phone #: [phone] For evening and weekend discharge assistance please page the stone crusher operator PCRM at [phone]. Addendum at [phone]: Per Dr. Ocampo, patient will not be discharging today. * AMIRAH Fung - 01/24/2025 1:25 PM EDTSummary: KARINE Advance Directives Advance Directives Consult Reason for Consult: Patient wanting to complete advance directives. Referral Source: Miracle Iqbal [facility] Advance Directives Discussion: SW met with pt who was A&Ox4 at the time of visit. Patient does not have any advance directives on file. SW inquired whether or not patient is interested in completing health care power of ambulatory service representative and/or living will paperwork during this admission. [...] does NOT have to be completed at [facility] and canbe completed in the community by either a public notary or witnessed by two individuals not relatedto the patient. Patient voiced understanding and stated plan to reach out to SW should they requireadditional information and/or assistance in completing the documents. Legal NOK: Patient has three adult children: Don (ph: [phone]), Christal (ph: [phone]), and Kaia (ph:[phone]). She reported her spouse is . * [...] and provide support. Natalia Etienne RN PCRM [phone] For evening and weekend discharge assistance please page the stone crusher operator PCRM at [phone]. * Alberta Cowart, PT - 01/24/2025 9:23 [...] as close friends and neighbors from her judaism that have offered to help as much [...] numbness/tingling Mobility Assessment: Supine to Sit Mobility Constable Level: Supine->Sit: stand-by assist Bed Features/Set-up: Supine->Sit: Use of bed rail, Head of bed elevated Skilled Rationale: Verbal cues, Hand placement, Positioning, Technique of activity Skilled Intervention/Details: Supine->Sit: educated on use of log roll technique Sit to Supine Mobility Constable Level: Sit->Supine: not tested Skilled Intervention/Details: Sit->Supine: [...] positioning/posture Transfer Assessment: Sit to Stand Transfer Constable Level: Sit->Stand: stand-by assist Assistive Device: Sit->Stand: gait belt Skilled Rationale: Verbal cues, Hand placement Skilled Intervention/Details: Sit->Stand: from EOB Stand to Sit Transfer Constable Level: Stand->Sit: stand-by assist Assistive Device: Stand->Sit: gait belt Skilled Rationale: Verbal cues, Hand placement Skilled Intervention/Details: Stand->Sit: 1x to chair Gait/Functional Mobility: Gait Assessment Constable Level: Gait: contact guard assist (contact guard to standby assist) Assistive Device: Gait: gait belt (initially with handheld assist but progressed to ambulation without assist and) Ambulation Distance (Feet): 450 Gait Deviations Identified: decreased mike (decreased R LE stance time, apears antalgic however patient denies pain of the R LE, slight R LE trendelenberg) Gait Skilled Rationale: verbal Stairs: Outcome Score(s): CURRENT [facility] Basic Mobility Inpatient Short Form Turning over in bed: 4 - No Assistance Moving from lying on back to sittin - No Assistance Moving to and from bed to chair: 3 - A Little Assistance Sitting/standing from chair: 4 - No Assistance Walk in hospital room: 3 - A Little Assistance Climbing 3-5 steps with a railin - A Little Assistance CURRENT [facility] Mobility Raw Score: 21 CURRENT [facility] Mobility Functional Limitation: 28.97% Impaired in Basic [...] Cowart PT , DPT, CLT License #: [id number] PT treatment consisted of the following to progress towards the above goal(s): PT Evaluation and Treatment Time PT Evaluation (Moderate) Time Entry: 22 Evaluating Therapist: Alberta Cowart PT , DINAH, CLT License #: [id number] Additional Details: PT Co-Eval/Treatment Information Co-evaluation/co-treatment performed?: [...] as close friends and neighbors from her judaism that have offered to help as much [...] Details: denies falls IADL History Primary Language: Omani Objective/Observation: Vitals/Vitals Responses to Treatment: WFL O2 [...] Edema: Mobility Assessment: Supine to Sit Mobility Constable Level: Supine->Sit: stand-by assist Bed Features/Set-up: Supine->Sit: Use of bed rail, Head of bed elevated Skilled Rationale: Positioning, Hand placement, Verbal cues, Technique of activity, Cues for increased safety Skilled Intervention/Details: Supine->Sit: x1 to R EOB; pt's bed slightly elevated to mimic homesetup; verbal cues for log rolling technique with good carryover; increased effort required Sit to Supine Mobility Constable Level: Sit->Supine: not tested Skilled Intervention/Details: Sit->Supine: pt seated in armed chair at end of session Transfer Assessment: Sit to Stand Transfer Constable Level: Sit->Stand: stand-by assist Assistive Device: Sit->Stand: gait belt Skilled Rationale: Positioning, Verbal cues, Full extension to upright positioning/posture Skilled Intervention/Details: Sit->Stand: x1 from EOB; good upright posture Stand to Sit Transfer Constable Level: Stand->Sit: stand-by assist Assistive Device: Stand->Sit: gait belt, armed chair Skilled Rationale: Positioning, Hand placement, Verbal cues, Controlled descent for sitting Skilled Intervention/Details: Stand->Sit: x1 to armed chair; verbal cues to reach back to assistwith controlled descent with fair eccentric control; verbal cues for breathing strategies during descent to assist with pain management Functional Mobility: Functional Mobility Constable Level: Functional Mobility/Gait: (CGA - SBA) Assistive [...] her stabillity is wobbly Outcome Score(s): CURRENT [facility] Daily Activity Inpatient Short Form Putting on/Taking Off Lower Body Clothin - A Lot of Assistance Bathin - A Lot of Assistance Toiletin - A Little Assistance Putting on/Taking Off Upper Body Clothin - A Little Assistance Groomin - A Little Assistance Eatin - No Assistance CURRENT [facility] Activity Raw Score: 17 CURRENT [facility] Activity Functional Limitation/Modifier: 50.11% Currently Impaired in [...] Occupational Therapy Discharge Summary. * Vidhya Lucas, RAMBO-VENEER PRODUCTION MACHINE OPERATOR - 01/24/2025 7:37 AM EDT Colorectal Surgery [...] in agreement. KIRBY Dhaliwal documented in this encounterSumma [facility] Nurse Note* Nursing Notes - Miracle Etienne RN - 01/27/2025 9:53 AM EDT 01/27/25 0953 Final Discharge Planning Discharge Disposition Home Plan Plan pt to DC to home in am. Patient/Family In Agreement With Plan yes Plan Comments see note Transport Request Mode of Transfer Private Vehicle [facility] [place] PCR Discharge Note Jessika Carrillo was discussed [...] [facility]al [facility] Risk of Readmission: 2.9% Risk of Readmission: [...] and weekend discharge assistance please page the stone crusher operator PCRM at [phone]. PCRM to continue to follow and provide support. Natalia Etienne RN Float PCRM [phone] [facility]03-28-2025 Nurse Note* Nursing Notes - Reyna Maher RN - 01/27/2025 9:10 AM EDT 0900- Lovenox education given pt able to perform return demonstration correctly at this time. [facility]03-27-2025 Plan of care note* Plan of Care [...] more controlled. Patient is progressing as expected. [facility]03-27-2025 Plan of care note* Plan of Care [...] Cowart PT , DPT, CLT License #: [id number] [facility]03-26-2025 Nurse Note* Nursing Notes - Lianna Charles RN - 01/25/2025 8:09 PM EDT 195 (R) PIV Infiltrated and removed. Pictured in chart along with abdominal sites 2007 Contacted stone crusher operator regarding [id number] Jessika Leid. Pt's BP 191/111 (MAP 144). Hx HTN. Resting in bed. Denied pain/symptoms. No PRN for increased BP. Looks like she was elevated during the day as well. CB [id number] Inquired about tele order due to labetalol admin instructions 0420 Contacted stone crusher operator regarding [id number] Jessika Leid. Pt reports having three loose black stools on shift. Patient states that this has been ongoing postoperatively. She was wondering if there was anything to help w/ BM. [phone] [facility]03-26-2025 Plan of care note* Plan of Care - Nelly Ramirez RN - 01/25/2025 5:32 PM EDT Problem: Adult Inpatient Plan of Care Goal: Optimal Comfort and Wellbeing Intervention: Monitor Pain and Promote Comfort Flowsheets (Taken 01/25/2025 1731) Pain Management Interventions: rhvjub-vlv-[id number] dosing utilized diversional activity provided pain management plan reviewed with patient/caregiver premedicated for activity [facility]03-26-2025 Nurse Note* Nursing Notes - Nelly Ramirez RN - 01/25/2025 3:54 PM EDT This RN notified Dr. Rica Ocampo via secure chat, patient with 550 ml emesis after ambulation. IV nausea medicine given. Dr. Strauss at bedside to assess. New orders place, NPO and XR A/P. This Rn will continue to monitor. [facility]03-25-2025 Nurse Note* Nursing Notes - Yoav Schwartz RN - 01/24/2025 4:40 PM EDT Patient had 3 bowel movements today. Bowel movements look bloody, picture of last BM taken and uploaded to chart. Vidhya Lucas NP notified. [facility]03-25-2025 Nurse Note* Nursing Notes - Miracle Etienne RN - 01/24/2025 3:12 PM EDT 01/24/25 1512 Final Discharge Planning Discharge Disposition Home Services at Discharge Outpatient clinical services (ie: lab draws, transfusions, injectables) Plan Plan pt to DC to home in am as she remains stable. Patient/Family In Agreement With Plan yes Plan Comments see note Transport Request Mode of Transfer Private Vehicle [facility] [place] PCRM Discharge Note Jessika Carrillo was discussed [...] & Rectal Surgery Arrive at: Arrive to [facility] First Floor Registration [facility] Risk of Readmission: 2.9% Risk of Readmission: [...] and weekend discharge assistance please page the stone crusher operator PCRM at [phone]. PCRM to continue to follow and provide support. Natalia Etienne RN Float PCRM [phone] [facility] Discharge instructions* Discharge Instructions* KIRBY Dhaliwal - 01/24/2025 11:09 AM EDT Images from the original note were not included. COLORECTAL ADDITIONAL CONTACTS For Concerns During Weekend or Evening Hours: -If you have questions or concerns call and ask the hydrator operator to page the surgical nurse practitioner stone crusher operator. Reminder: Farehelper messaging goes unmonitored during evenings and weekends. Any concerns or questions during this time, please call using instructions above. Clinic Office Main Number: [phone] Colorectal non-Cancer: [phone] Fax Line: [phone] Tower Observer: Akua Azevedo ([facility]) BILLING RELATED QUESTIONS, please call [phone] ENTEROSTOMAL THERAPY RN + OSTOMY Clinic+ IMPORTANT: Automated Post Discharge Call Patient Information As part of your care, we will call you at the primary number we have on file, the day after you aredischarged at 9:30 a.m. to check on you. Please expect a two-minute automated telephone call from the hospital. This call will come from [phone]. If you are unable to answer or do not receive the automated call, please call [phone] to complete this important evaluation. By answering the phone evaluation, a [facility] nurse will be notified if you [...] questions or concerns call and ask the hydrator operator to have the general surgery chief resident paged. Reminder: Pyron Solart messaging goes unmonitored during evenings and weekends. Any concerns or questions during this time, please call using instructions above. Clinic Office Main Number: [phone] NOTIFY PHYSICIAN: SYMPTOMS WOUND INFECTION - Increase [...] glue off your skin. documented [facility] Nurse Note* Nursing Notes - Miracle Etienne RN - 01/24/2025 10:45 AM EDT 01/24/25 1045 Referral Information Arrived From operating room Readmission Information Was patient readmitted within 30 Days? No Information Source Information Source patient ;child Information Source Name Lucy Rosen Information Source Number [phone] Outpatient Providers Outpatient Providers Updated In IHIS Yes Contact Information Tower Observer/SW Added to Care Team Yes This Marketing Database Consultant is Primary Tower Observer/SW No Tower Observer Name Natalia Etienne Tower Observer's Social Work Contact Name Cluster coverage. Tele Marketing Executive's Phone Number see care team. Living Environment Lives With alone (daughter Don lives close by) Living Arrangement and Set Up house Provides Primary Care For no one Caregiving Concerns NA Primary Care Provided By self Support System Immediate family;Rastafarian;Extended family;Friends;Neighbors Able to Return to Prior Arrangements [...] Yes Initial Discharge Planning Home Care Services (FUNERAL HOME DIRECTOR) No Home Therapies (FUNERAL HOME DIRECTOR) None DME (FUNERAL HOME DIRECTOR) None Medical Supplies (FUNERAL HOME DIRECTOR) None Patient Goal for Discharge Get better Anticipated Services at Discharge Outpatient clinical services (ie: lab draws, transfusions, injectables) Anticipated Changes Related to Illness none Current Discharge Risk chronically ill Transportation Available car Discharge Coordination/Progress pt to DC to home once medically stable. Home Care Services (FUNERAL HOME DIRECTOR) Additional Home Care Services (FUNERAL HOME DIRECTOR) no Assessment/Concerns to be Addressed Concerns To [...] great support from her friends, neighbors and judaism. She hs no HHC or DME and [...] provide support. Natalia Etienne RN Float PCRM [phone] For evening and weekend discharge assistance please page the stone crusher operator PCRM at [phone]. [facility]03-25-[facility]25 Plan of care note* Plan of Care [...] Cowart PT , DPT, CLT License #: [id number] [facility]03-25-[facility]25 Plan of care note* Plan of Care [...] completion at recommended discharge destination. Outcome: Ongoing [facility]03-25-[facility]25 Plan of care note* Plan of Care [...] sign off at this time. Please call [phone] or page [phone] with any questions or concerns. Glendy Simms MD Anesthesiology [facility] Work Phone: [phone] Nurse Note* Nursing Notes - Yoav Schwartz RN - 01/23/2025 3:00 PM EDT On admission to [facility], from PACU a dual RN initial assessment [...] Score: 20 LDA Added:No Yoav Schwartz RN [facility]03-24-2025 Plan of care note* Plan of Care [...] - will continue to monitor KIRBY Dhaliwal [facility]03-24-2025 Surgery Postoperative evaluation and management note* Op [...] and present throughout the entire case. [facility]03-24-2025 Surgery Postoperative evaluation and management note* Brief Op Note - Giorgio Mares MD - 01/23/2025 11:27 AM EDT Jessika Carrillo ([id number]) PRE OPERATIVE DIAGNOSIS Malignant neoplasm of ascending [...] Anesthesiologist: George Negron MD; Michael Blank MD Regulatory Affairs Director Assisting: Tanmay Martinez DDS SURGICAL STAFF Lamp Stack Developer: Whitney Castillo RN Physician Final Cigar And Box Examiner: Casi Kinney PA-C Relief Lamp Stack Developer: Nelly Fuentes RN Relief Scrub: Chirag Sunshine; [...] Thomas at 01/25/2025 12:41 PM EDT [facility] Work Phone: [phone] Nurse Surgical operation note* Whitney Castillo RN - 01/23/2025 8:18 AM EDT 0810 Family notified of surgery start 937 Family updated 1040 Hand-off report sent to PACU charge nurse 1058 PACU given notice of arrival 1132 Patient extubated and transported to PACU with anesthesia at bedside on oxygen inhalation. [facility] Nurse Note* Whitney Castillo RN - 01/23/2025 [...] seizure or stroke. [facility] Nurse Surgical operation note* Maurisio Finn RN - 01/23/2025 6:21 AM EDT Patient denies hx of chemo and radiation. Patient denies metal or foreign objects in body. EXCEPT Rknee replacement. Patient denies hx of seizure or stroke. [facility]03-11-[facility]25 History and physical note* Mackenzie Reyes APRN-VENEER PRODUCTION MACHINE OPERATOR - 01/10/2025 3:00 PM EDT Images from the original note were not included. PREOPERATIVE ASSESSMENT H&P [facility] Name: Jessika Carrillo Date of [...] Oral Opening - 3 FB Teeth - pilot station dentition Cervical range of motion - within [...] denies a history of cardiac events or WI. Denies chest pain, palpitation or worsening SOB over the last few months ASSESSMENT AND PLAN- # Functional status - METS: Moderate: 4-7 METS functional status. 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 It is intended as faoe-yz-qnli communication. It is written in medical language and may contain abbreviations or verbiagethat are unfamiliar. It may appear blunt or direct. Medical documents are intended to carry relevant information, facts as evident, and the clinical opinion of the practitioner. Mackenzie Reyes, SUBACUTE NURSE-VENEER PRODUCTION MACHINE OPERATOR [facility] Perioperative Clinic [facility] [address] [facility] Review of Systems (OSUROS) Review of Systems [...] Chow PA-C as PCP - General (Physician Final Cigar And Box Examiner) Family History Problem Relation Age of Onset Heart Disease - Other Father Breast Cancer Paternal Aunt 2 aunts with breast cancer Social History Socioeconomic History Marital status: Tobacco Use Smoking status: Former Current packs/day: 0.00 Types: Cigarettes Quit date: 12/06/2019 Years since quittin.1 Smokeless tobacco: Never Substance and Sexual Activity Alcohol use: Yes Comment: wine twice per year Drug use: Never [facility]03-11-2025 History and physical note* KIRBY Segovia - 01/10/2025 3:00 PM EDT Images from the original note were not included. PREOPERATIVE ASSESSMENT [facility]P [facility] Name: Jessika Carrillo Date of Surgery: [...] Oral Opening - 3 FB Teeth - pilot station dentition Cervical range of motion - within [...] denies a history of cardiac events or WI. Denies chest pain, palpitation or worsening SOB over the last few months ASSESSMENT AND PLAN- # Functional status - METS: Moderate: 4-7 METS functional status. 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 It is intended as cqsm-zg-wzvk communication. It is written in medical language and may contain abbreviations or verbiagethat are unfamiliar. It may appear blunt or direct. Medical documents are intended to carry relevant information, facts as evident, and the clinical opinion of the practitioner. Mackenzie Reyes, SUBACUTE NURSE-VENEER PRODUCTION MACHINE OPERATOR [facility] [address] [facility] Review of Systems (OSUROS) Review of Systems [...] Chow PA-C as PCP - General (Physician Final Cigar And Box Examiner) Family History Problem Relation Age of Onset [...] year Drug use: Never documented in this encounterSum[facility]-2025 Instructions* Patient Instructions* Shanell Mayo LPN - [...] TRANSFUSE OR RED BLOOD CELLS: 2 Units [place] ECG, CLINIC PERFORMED PREOPERATIVE MEDICATION INSTRUCTIONS Below are instructions for what to do with your medicines before your surgery/procedure. Take the medications marked take the morning of surgery/procedure with a sip of water. Please follow this table below for instructions on which medications to hold prior to surgery If you have a change in daily medications prior to surgery/procedure, call the [facility] Clinic at [phone]. Current Outpatient Medications Medication Sig Acetaminophen 325 [...] as, but not limited to, fish oil (Fallon-3), garlic,glucosamine -chondroitin, gingko, ginseng, probiotics, or multivitamins) [...] Do not wear artificial nails or nail turkish the day of surgery. Do NOT bring [...] area for 1 week prior to surgery. Tasley your teeth and rinse your mouth the [...] your scheduled surgery, please notify our team ([facility])and your surgeon's office. You may need to have your surgery moved, as we would not want to put youat risk for complications, You MUST arrange for a responsible adult to drive you to your procedure, stay for the surgery, listen to discharge instructions, and drive you home after surgery, otherwise your surgery may be cancelled. [facility] Preoperative Testing Clinic Mary Cain [phone] AVS/EEH documented in this [facility] History of Present illness Narrative* Hali Barnett [...] a coupon for Ensureproducts. documented in this encounterSum[facility]-2025 Instructions* Patient Instructions* Hali Barnett RN - [...] to make arrangements for lodging at the [facility] , or the [facility], [address] [facility], . Discounted rates are available upon request at the [facility]. Please inquire about free shuttle service to and from the hospital. [employer] shuttle service can be contacted at . On the Day of Surgery: Please check in at the central Registration Office on the entry operator (2 hours prior to surgery time). After Registration you be directed to our Perioperative Unit for your procedure. Surgery times can vary from the actual scheduled times. They can be either longer or shorter than expected. Please check the below website for our current Visitor Policy prior to your scheduled Surgery: [email or web address] Pre-Operative Bowel Preparation [facility] A bowel prep is done to prepare the bowel for surgery or a procedure. Its purpose is to clear out the bowel of all solid matter. Please follow these instructions. Begin the bowel prep on the day before your scheduled surgery. Prescriptions will be sent to your pharmacy [facility] [address] [place] [phone] [facility] for: Dulcolax 20 mg (available over [...] pulp Popsicles Ice Soft drinks Gatorade (Lemon Nikolski preferred) Clear broth or bouillon Jell-O Coffee [...] is not red, orange, or purplein color. Lemon-san pasqual is preferred. You may need to pour [...] program. You can also get help through: [facility] Tobacco Dependency Clinic, National Quit Line, [place] Lung Association, [place] Cancer Society, Smokefree.gov website Stop Alcohol Use [...] Anonymous (AA) http://www.aa.org/ Rethinking Drinking https://www.rethinkingdrinking.niaaa.nih.gov/ National [place] of Alcohol Abuse and Alcoholism https://niaaa.nih.gov/ Andrews Jerome [phone] -Inpatient, partial hospitalization and outpatient services for [...] Patient Controlled Analgesia (also known as a SEWAGE PLANT OPERATOR) A SEWAGE PLANT OPERATOR is a pain pump that could be [...] Care Everywhere. * Colorectal Resection (Lexis Paul) (Omani) * Use of Incentive Spirometer Before Your Surgery (Lexis Paul) (Omani) [facility] History of Present illness Narrative* [place] [...] regarding the kidney abnormality. documented in this encounterSumma [facility]-04-2025 Instructions* Patient Instructions* Irish Boyce RN - [...] to hear from you! documented in this encounterOSBarberton Citizens HospitalConsult note Author Ora Perez [facility] Note Date/Time March 20, 2025 1:18p [facility] Medical Records Department [address] [place] [address] Anesthesia Postop Eval I 03/20/25 1317 MR#: [id number] Acct: [id number] Name: JESSIKA CARRILLO Rep #:[id number] : 1950 74 From: Ora Perez CRNA PCP: JUVENTINO Pérez [place] [facility] [place]: C Location: [place] [address] Anesthesia: Postop Eval I Current Vital Signs [...] CRNA Cosigner Signature: Date CC: ~ Signed [facility] Work Phone: Consult note Author Josue Ceballos [facility] Note Date/Time March 20, 2025 2:24p [facility] Medical Records Department [address] [place] [address] Anesthesia Postop Eval II 03/20/25 1424 MR#: [id number] Acct: [id number] Name: JESSIKA CARRILLO Rep #:[id number] : 1950 74 From: Josue Ceballos MD PCP: JUVENTINO Pérez Status:REG SDC Y Race: C Location: [address] Anesthesia Postop Eval I Sum Postop Eval Completion status Anesthesia document: Postop Eval 1 completed: Yes Anesthesia Postop Eval I Summary Anesthesia Postop Eval I Summary: Anesthesia Postop Eval I: Assessment Summary Airway patent Yes 03/20/25 13:18 PROGRAMMER ANALYST HEALTH IT.HBARR Spontaneous unlabored Yes 03/20/25 13:18 PROGRAMMER ANALYST HEALTH IT.HBARR respirations Mental status Awake 03/20/25 13:18 PROGRAMMER ANALYST HEALTH IT.HBARR nausea No 03/20/25 13:18 PROGRAMMER ANALYST HEALTH IT.HBARR Vomiting No 03/20/25 13:18 PROGRAMMER ANALYST HEALTH IT.HBARR Anesthesia Postop Eval I: Fluid Summary Crystalloid volume administer 500 03/20/25 13:18 PROGRAMMER ANALYST HEALTH IT.HBARR (ml) Colloids volume administered ( ml) Blood Product volume administered (ml) Total IV fluid infused 500 03/20/25 13:18 PROGRAMMER ANALYST HEALTH IT.HBARR Anesthesia Postop Eval I: Summary Notes Anesthesia Complication No 03/20/25 13:18 PROGRAMMER ANALYST HEALTH IT.HBARR Anesthesia Complication Comment: Post-operative progress note Anesthesia: Postop Eval II Evaluation Mental status: Awake Pain Level: 0 nausea: No Vomiting: No 03/20/25 1424 <Electronically signed by Josue Ceballos MD > Date _ Josue Ceballos MD [facility] Signature: Date CC: ~ Signed [facility] Work Phone: Discharge summary Author Michael Gaines [facility] Note Date/Time March 20, 2025 1:20p m [facility] Medical Records Department [address] [place] [address] Instructions for Home/Discharge Instructions 03/20/25 1316 MR#: [id number] Acct: [id number] Name: JESSIKA CARRILLO Rep #:[id number] : 1950 74 From: Michael Gaines MD PCP: JUVENTINO Pérez [place] [facility] [place] Instructions Diet Discharge Diet: Light diet [...] Care Provider: Shu Chow Instructions Print Language: Omani Discharge Orders/Prescriptions Prescriptions: New oxycodone-acetaminophen [Percocet] 5-325 [...] Gaines MD CC: JUVENTINO Pérez ~ Signed [facility] Work Phone: Evaluation note* Diagnosis Malignant neoplasm of ascending colon- Primary [facility] Diagnosis Malignant neoplasm of ascending colon [facility]* Diagnosis Malignant neoplasm of ascending colon [facility] Diagnosis Malignant neoplasm of ascending colon- Primary Malignant neoplasm of ascending colon documented in this encounter [facility]* Diagnosis Preop exam for internal medicine- Primary Other specified pre-operative examination Malignant neoplasm of ascending colon Essential hypertension Unspecified essential hypertension Mixed hyperlipidemia Abnormal coagulation profile Malignant neoplasm of ascending colon [facility] Diagnosis Colon cancer- Primary Malignant neoplasm of colon, unspecified site Malignant neoplasm of ascending colon [facility]* Diagnosis Malignant neoplasm of ascending colon- Primary [facility] Narrative* MRI/CAT Scan (Routine) - Closed Specialty Diagnoses / Procedures Referred By Yaw gayle Referred To Contact Diagnoses Malignant neoplasm of ascending colon Procedures CT CHEST WITH CONTRAST CHG DIAGNOSTIC COMPUTED TOMOGRAPHY THORAX W/CONTRAST Sachi Rosas MBBS [address] [address] Phone: tel: fax: Referral ID Status Reason Start Date Expiration Date Visits Re quested Visits Authorized [id number] Closed 12/06/2024 12/31/2025 1 1 [facility] for visit Narrative* MRI/CAT Scan (Routine) - Closed Specialty Diagnoses / Procedures Referred By Yaw gayle Referred To Contact Diagnoses Malignant neoplasm of ascending colon Procedures MRI ABDOMEN WITH AND WITHOUT CONTRAST CHG MRI ABDOMEN W/O CONTRAST FLWD BY W/CONTRAST Sachi Rosas MBBS [address] [address] Phone: tel: fax: Referral ID Status Reason Start Date Expiration Date Visits Re quested Visits Authorized [id number] Closed 12/06/2024 12/31/2025 1 1 [facility] Narrative* Auth/Cert Specialty Diagnoses / Procedures Referred By Yaw t Referred To Contact Diagnoses Malignant neoplasm of ascending colon Malignant neoplasm of ascending colon [C18.2] Procedures [place] LAPAROSCOPY COLECTOMY PARTIAL W/ANASTOMOSIS COLECTOMY PARTIAL ROBOTIC XI RIGHT Sachi Rosas, MBBS [address] [place] [address] [place] [address] Phone: tel: fax: [facility] [address] [place] [address] Referral ID Status Reason Start Date Expiration Date Visits Re quested Visits Authorized [id number] 1 1 [facility] Summary Purpose Family History No Family History [...] Do you have a Healthcare Power of Cloth Spreader Screen Printing? No March 17, 2025 11:44am Advance Directive Response Recorded Date/ Time Do you have a Healthcare Power of Cloth Spreader Screen Printing? No March 17, 2025 11:44am Advance Directives on File No March 032024 11:35am Living Will No March 23, 2025 1 1:35am Do you have a Healthcare Power of Cloth Spreader Screen Printing? No March 23, 2025 11:35am Advance Directives No March 23 11:35am Advance Directive Response Recorded Date/ Time Do you have a Healthcare Power of Cloth Spreader Screen Printing? No March 17, 2025 11:44am Advance Directives on File No April 06, 2025 3:33pm Living Will No April 06, 2025 3 :33pm Do you have a Healthcare Power of Cloth Spreader Screen Printing? No April 06, 2025 3:33pm Advance Directives No April 06 3:33pm Advance Directive Response Recorded Date/ Time Do you have a Healthcare Power of Cloth Spreader Screen Printing? No March 17, 2025 11:44am Advance Directives on File No April 20, 2025 12:28pm Living Will No April 20, 2025 12:28pm Do you have a Healthcare Power of Cloth Spreader Screen Printing? No April 20, 2025 12:28pm Advance Directives [...] 2025 7:42a m Encounter for chemotherapy management [facility] 2024 7:42am Lung nodules April 04, 2025 7:42a m Regional lymph node metastasis present J [facility] 2024 7:42am Chief Complaint Admit Date Amb [...] m Regional lymph node metastasis present J [facility] 2024 7:42am Anemia April 18, 2025 8:49 am Colon cancer April 18, 2025 8:49 am Diarrhea due to drug April 18, 2025 8:4 9am Lung nodules April 18, 2025 8:49 am Regional lymph node metastasis present J [facility] 2024 8:49am Chief Complaint Admit Date Amb [...] section and content) DATE CREATED AUTHOR 04/27/2018 [facility] DATE CREATED AUTHOR AUTHOR'S ORGANIZ ATION 01/02/2024 [facility] ([place]) DATE CREATED AUTHOR AUTHOR'S ORGANIZ ATION 09/26/2024 [facility] DATE CREATED AUTHOR AUTHOR'S ORGANIZ ATION 11/18/2024 [facility] DATE CREATED AUTHOR AUTHOR'S ORGANIZ ATION 03/19/2025 [facility] DATE CREATED AUTHOR AUTHOR'S ORGANIZ ATION 04/29/2025 [facility] DATE CREATED AUTHOR AUTHOR'S ORGANIZ ATION 05/07/2025 [facility] Reason for Visit (unrecogniz ed section and content) Reason Comments New Patient Colon adenocarcinoma at 30 cm, possible mets Specialty Diagnoses / Procedures Referred By Contac t Referred To Contact Colon & Rectal Surgery Diagnoses Adenocarcinoma of colon Flex Boles [facility] [address] [facility] [address] [place] [address] Phone: tel: fax: [facility] [address] [place] [address] Referral ID Status Reason Start Date Expiration Date V isits Requested Visits Authorized [id number] Pending Review 11/22/2024 12/17/2025 1 1 Reason Comments Other Pre op teaching- CER Reason Comments Preoperative Assessment Specialty Diagnoses / Procedures Referred By Yaw gayle Referred To Contact PreOp Diagnoses Malignant neoplasm of ascending colon Sachi Rosas, [place] [address] [place] [address] [place] [address] Phone: tel: fax: Referral ID Status Reason Start Date Expiration Date V isits Requested Visits Authorized [id number] New Request 01/03/2025 01/28/2026 1 1 Reason Onset Date Comments Post-Discharge Follow Up 01/29/2025 Do you have any questions about your follow up process or care instructions that we have provided? Yes Patient Education 01/29/2025 Reason Comments Post Op Visit 01/23/2025 COLECTOMY PARTIAL ROBOTIC XI RIGHT Care Teams (unrecognized sec tion and content) Social Work Manager Relationship Specialty Start Date End Date Shu Chow PA-C [address] [place] [phone] PCP - General Physician Final Cigar And Box Examiner 12/06/24 Social Work Manager Relationship Specialty Start Date End Date Shu hCow PA-C [address] [place] [phone] PCP - General Physician Final Cigar And Box Examiner 12/06/24 Social Work Manager Relationship Specialty Start Date End Date Shu Chow PA-C [address] [facility] [address] [place] [phone] PCP - General Physician Final Cigar And Box Examiner 12/06/24 Social Work Manager Relationship Specialty Start Date End Date Shu Chow PA-C [address] [facility] [address] [place] [phone] PCP - General Physician Final Cigar And Box Examiner 12/06/24 Social Work Manager Relationship Specialty Start Date End Date Shu Chow PA-C [address] [facility] [address] [place] [phone] PCP - General Physician Final Cigar And Box Examiner 12/06/24 Social Work Manager Relationship Specialty Start Date End Date Shu Chow PA-C [address] [facility] [address] [place] [phone] PCP - General Physician Final Cigar And Box Examiner 12/06/24 Sachi Rosas MBBS [address] [phone] Colon Rectal Surgeon Colon And Rectal Surgery 01/24/25 Eleonora Mcgarry, border machine operator 01/27/25 Social Work Manager Relationship Specialty Start Date End Date Shu Chow PA-C [address] [facility] [address] [place] [phone] PCP - General Physician Final Cigar And Box Examiner 12/06/24 Sachi Rosas MBBS [address] [phone] Colon Rectal Surgeon Colon And Rectal Surgery 01/24/25 Eleonora Mcgarry, border machine operator 01/27/25 Social Work Manager Relationship Specialty Start Date End Date Shu Chow PA-C PCP - General Physician Final Cigar And Box Examiner 12/06/24 Sachi Rosas MBBS [address] [place] [phone] Colon Rectal Surgeon Colon And Rectal Surgery 01/24/25 Desiree Luna LISW Tele Marketing Executive 02/21/25 Team Status: Active Member Role Status [...] 2025 End: March 15, 2025 Alyssa Lynch PULL OVER MACHINE OPERATOR, PULL OVER MACHINE OPERATOR-C Attending Provider Active Start: March 15, 2025 [...] 2025 End: March 21, 2025 Alyssa Lynch PULL OVER MACHINE OPERATOR, PULL OVER MACHINE OPERATOR-C Attending Provider Active Start: March 21, 2025 [...] 2025 End: April 04, 2025 Alyssa Lynch PULL OVER MACHINE OPERATOR, PULL OVER MACHINE OPERATOR-C Attending Provider Active Start: April 04, 2025 [...] 2025 End: March 15, 2025 Alyssa Lynch PULL OVER MACHINE OPERATOR, PULL OVER MACHINE OPERATOR-C Attending Provider Active Start: March 15, 2025 [...] 2025 End: March 21, 2025 Alyssa Lynch PULL OVER MACHINE OPERATOR, PULL OVER MACHINE OPERATOR-C Attending Provider Active Start: March 21, 2025 End: March 21, 2025 Team Status: Inactive Member Role/Relationship Status Dates Shu Chow PA, PA Primary Care Provider Active Start: April 04, 2025 End: April 04, 2025 Shu Chow PA, PA Referring Provider Active Start: April 04, 2025 End: April 04, 2025 Alyssa Lynch PULL OVER MACHINE OPERATOR, PULL OVER MACHINE OPERATOR-C Attending Provider Active Start: April 04, 2025 [...] 2025 End: May 02, 2025 Alyssa Lynch PULL OVER MACHINE OPERATOR, PULL OVER MACHINE OPERATOR-C Attending Provider Active Start: May 02, 2025 [...] (Unheld by provider - Provider: Malick Ricci, SUBACUTE NURSE-VENEER PRODUCTION MACHINE OPERATOR)[id number] (Given - Provider: Rickie Armstrong RN) 0859 [...] over 2 minutes. Telemetry required except for FURNACE HAND patients on [place] Floors 6 and 7. [...] BE BASED ON THE PRIMARY CLINICAL RECORDS. [employer] [facility]. provides no warranty or guarantee of the accuracy or completeness of information in this document.
[2025-05-13] MEDS: KCL 20MEQ in 0.9% NS 20 MEQ/1,000 ML IV.SOLN. 100 MEQ IV (20:12)
[2025-05-13] MEDS: Heparin Injection (Vial) 5,000 UNIT/ML VIAL 5000 UNIT SC (21:24)
[2025-05-14] VITALS (7 sets, daily range): BP systolic 100–127; BP diastolic 49–56; PULSE 99–112; RESP 16–18; TEMP 36.8–37.6; O2SAT 95–97
[2025-05-14] MEDS: KCL 20MEQ in 0.9% NS 20 MEQ/1,000 ML IV.SOLN. 100 MEQ IV ×2 (06:24→16:49)
[2025-05-14 06:40] LABS: Hematocrit 30.5 % (37-47); Hemoglobin 10.8 g/dL (12.0-15.0); Immature Granulocytes Count 0.020 X10^3/uL (0.0-0.0); Mean Corp Hgb Conc 35.4 g/dL (32-36); Mean Corpuscular Volume 86.9 fL (81-99); Mean Platelet Vol. 8.6 fl (6.2-12.0); NRBC Flagged by Analyzer 0 % (0-5); POSITIVE DIFFERENTIAL YES; POSITIVE MORPHOLOGY YES; Platelet Count 214 K/mm3 (150-450); RBC Distribution Width CV 15.0 % (11.6-14.6); RBC Distribution Width SD 46.1 fl (35.1-43.9); Red Blood Count 3.51 M/mm3 (4.2-5.4); White Blood Count 2.4 K/mm3 (4.4-11.0)
[2025-05-14 06:50] LABS: Differential Indicated SCAN CRITERIA MET
[2025-05-14 07:12] LABS: Anion Gap 11 (5-15); BUN 6 mg/dL (4-19); BUN/Creat Ratio 8.5 RATIO (10-20); Calcium,Total 7.9 mg/dL (7.6-11.0); Carbon Dioxide 19.2 mmol/L (21.0-32.0); Chloride 100 mmol/L (98-108); Estimated Creatinine Clearance 58.78 ml/min (50-250); Glucose 110 mg/dL (70-99); Potassium 2.8 mmol/L (3.3-5.1)
[2025-05-14 08:16] LABS: Differential Comment SCANNED
[2025-05-14] MEDS: Heparin Injection (Vial) 5,000 UNIT/ML VIAL 5000 UNIT SC ×2 (08:25→21:10)
[2025-05-14] MEDS: Metoprolol(XL)Succ 50 MG Tablet PO ×2 (08:27→13:10)
[2025-05-14] MEDS: Potassium Chloride Oral Tablet 20 MEQ 40 MEQ PO ×2 (13:11→21:10)
--- NOTE | 2025-05-14 15:33 | PCM.PN.HOSP ---
Reason for Visit Chief Complaint: Syncope, weakness Subjective Subjective Patient was seen and examined today, her potassium today was 2.8, she still remains in atrial FaBB, I increased the patient's metoprolol due to her heart rate above 100 today. Patient has no complaints to this examiner. Objective Data Objective Data Vital Signs: Vital Signs Temp Pulse Resp BP Pulse Ox O2 Del Method 99.0 F 109 H 18 101/49 L 96 Room Air 05/14/25 13:12 05/14/25 13:12 05/14/25 13:12 05/14/25 13:12 05/14/25 13:12 05/14/25 13:12 Oxygen Delivery Method Room Air Weight: 81.5 kg Body Mass Index (BMI) 33.9 Intake & Output: Intake and Output for Last 24 Hours 05/12/25 05/13/25 05/14/25 23:59 23:59 23:59 Intake Total 2270 / 2270 1450 / 1450 Output Total 200 / 200 Balance 2270 / 2270 1250 / 1250 Lab / Micro Data 05/14/25 06:05 05/14/25 06:05 Labs: Laboratory Results - last 24 hr 05/13/25 15:43: Urine Color Yellow, Urine Clarity Sl. Cloudy, Urine pH 6.5, Ur Specific [place] 1.010, Urine Protein 30 H, Urine Glucose (UA) Normal, Urine Ketones Negative, Urine Occult Blood 10 H, Urine Nitrite Negative, Urine Bilirubin Negative, Urine Urobilinogen Normal, Ur Leukocyte Esterase 500 H, Urine RBC 0-5 SEEN, Urine WBC 5-10 SEEN, Ur Squamous Epith Cells 0-5 SEEN, Amorphous Sediment 1+, Urine Bacteria 2+, Hyaline Casts 0-5 SEEN, Urine Mucus 1+ 05/13/25 17:45: Lactic Acid 2.2 H* 05/14/25 06:05: WBC 2.4 L, RBC 3.51 L, Hgb 10.8 L, Hct 30.5 L, MCV 86.9, MCH 30.8, MCHC 35.4, RDW Std Deviation 46.1 H, RDW Coeff of Kecia 15.0 H, Plt Count 214, MPV 8.6, Immature Gran % (Auto) 0.800, Neut % (Auto) 20.2 L, Lymph % (Auto) 45.9 H, Tyrrell % (Auto) 30.7 H, Eos % (Auto) 1.6, Baso % (Auto) 0.8, Absolute Neuts (auto) 0.5 L, Absolute Lymphs (auto) 1.12, Nucleated RBC % 0, Differential Comment SCANNED, Sodium 131 L, Potassium 2.8 L, Chloride 100, Carbon Dioxide 19.2 L, Anion Gap 11, BUN 6, Creatinine 0.65 L, Estim Creat Clear Calc 58.78, Est GFR (MDRD) Non-Af 92, BUN/Creatinine Ratio 8.5 L, Glucose 110 H, Calcium 7.9 Rhythm Strip Rhythm Strip: A-fib Rate: 97 Ectopy: None Physical Exam Narrative alert, oriented x3 and no apparent distress General Appearance: cooperative, well kempt and well developed Orientation / Consciousness: awake, oriented to person, oriented to place and oriented to time HEENT normocephalic, head/scalp atraumatic, hearing grossly normal bilaterally and moist oral mucous membranes Eyes PERRL, EOMs intact bilaterally and conjunctivae normal Neck supple, no JVD, thyroid normal and no carotid bruits General: trachea midline Resp normal respiratory effort, no retractions, no use of accessory muscles and clear to auscultation bilaterally Auscultation: Negative for rales, rhonchi or wheezes Cardio S1 normal heart sound, S2 normal heart sound, no murmurs, no rub and no gallops Cardio Narrative: Heart rate and rhythm is irregular GI normal to inspection, nondistended, normoactive bowel sounds, soft to palpation, non-tender and non-distended Extremity no clubbing, cyanosis or edema Skin no rashes or lesions noted General Skin Exam: no breakdown Neuro oriented x3, CN's II-XII intact bilaterally, moves all extremities, no focal motor deficits and no sensory deficits noted Sensorium / Orientation: awake and alert Speech: speech normal Psych affect normal Assessment & Plan Assessment/Plan (1) Acute UTI: (2) Syncope and collapse: PLAN: Plan 1. Syncope secondary to hypotension from atrial flutter/fib-patient's metoprolol XL will be increased to 100 mg daily starting tomorrow, I gave her an extra dose of metoprolol XL 50 mg this afternoon. #2 new onset atrial flutter with RVR-I will talk with the patient concerning full anticoagulation-I will also talk with her oncologist concerning this, for now, patient will be monitored and will receive beta-leonardo, patient will undergo an echocardiogram on 05/15/2025. #[address] of the brain indicating possible metastatic cancer-patient will undergo an MRI on 05/15/2025, she follows up with oncology as an outpatient. #4 colon cancer-under active treatment with chemotherapy, complicates care, management, recovery, and prognosis #5 hypokalemia-patient will be given potassium supplementation through her IV, BMP will be rechecked #6 acute cystitis-patient will be treated with Rocephin, cultures are pending Total clinical time spent by myself addressing the patient's medical issues, reviewing all of her data, and collaborating with patient's care team: 35 minutes Charges/Coding Visit Charges Inpatient E&M: 11692 Subs Hosp L2
[2025-05-14] MEDS: Ensure Plus High Protein 120 ML LIQUID PO (16:49)
[2025-05-15] MEDS: KCL 20MEQ in 0.9% NS 20 MEQ/1,000 ML IV.SOLN. 100 MEQ IV ×2 (02:47→15:15)
[2025-05-15 03:10] VITALS: BP 124/54; PULSE 99; RESP 16; TEMP 36.9; O2SAT 97
[2025-05-15 06:13] LABS: Anion Gap 10 (5-15); BUN 6 mg/dL (4-19); BUN/Creat Ratio 9.4 RATIO (10-20); Calcium,Total 7.9 mg/dL (7.6-11.0); Carbon Dioxide 17.1 mmol/L (21.0-32.0); Chloride 108 mmol/L (98-108); Estimated Creatinine Clearance 58.78 ml/min (50-250); Glucose 106 mg/dL (70-99); Potassium 3.3 mmol/L (3.3-5.1)
--- NOTE | 2025-05-15 07:00 | MRI_ITS ---
PROCEDURE: BRAIN W/WO CONTRAST 05/15/2025 REASON FOR EXAM: POSSIBLE METASTATIC COLON CANCER TECHNIQUE: BRAIN W/WO CONTRAST Multiplanar and multisequence images were obtained. CONTRAST: Clariscan VOLUME: 15 mL COMPARISON: CT head without contrast, 05/13/2025. FINDINGS: There is an area of low signal on the gradient echo images corresponding to the coarse calcification seen on the CT examination of 05/13/2025. There is no associated vasogenic edema or contrast enhancement. There is focal associated cerebral atrophy. There is a small area of associated white matter signal abnormality. There are areas of subcortical and periventricular white matter signal abnormality in both cerebral hemispheres consistent with chronic ischemic white matter disease. There is a normal sulcal pattern and gyral configuration. There is no evidence of acute intracranial hemorrhage or infarction. The castro-white differentiation is well preserved. There is no evidence of restricted diffusion. The ventricles and basilar cisterns are normal. There are normal flow voids demonstrated in the recognized intracranial vessels. The cerebellum and brainstem are unremarkable. The cerebellar pontine angles are normal. The craniovertebral junction is normal. The sella and suprasellar regions are normal. The orbits and retro-orbital regions are unremarkable. The nasal septum is deviated to the right. The paranasal sinuses are clear. The mastoid air cells are clear. There is normal bone marrow signal in the skull base and calvarium. MRI/Brain W/WO Contrast IMPRESSION: 1. There is an area of abnormal signal on the gradient echo images correspondi ng to the coarse calcifications seen in the left parietal lobe, posteriorly. There is no associated vasogenic edema or contrast enhancement. This is likely a chronic finding, of questionable clinical significance. 2. There are no foci of abnormal intracranial contrast enhancement or vasogeni c edema to suggest metastatic disease. 3. Findings consistent with chronic ischemic white matter disease. Reading Location: [place] [address]
[2025-05-15] MEDS: 0.9% Saline Lock 10 ML Syringe IV ×2 (07:51→09:14)
[2025-05-15] MEDS: Ensure Plus High Protein 120 ML LIQUID PO ×3 (07:51→16:55)
[2025-05-15 07:59] VITALS: PULSE 160
[2025-05-15] MEDS: Metoprolol(XL)Succ 100 MG Tablet PO (07:59)
[2025-05-15 09:00] VITALS: BP 134/75; PULSE 114; RESP 18; TEMP 36.6; O2SAT 97
[2025-05-15] MEDS: Heparin Injection (Vial) 5,000 UNIT/ML VIAL 5000 UNIT SC (09:03)
[2025-05-15 11:38] VITALS: PULSE 98
[2025-05-15] MEDS: Metoprolol(XL)Succ 50 MG Tablet PO (11:38)
--- NOTE | 2025-05-15 11:50 | CASEMGMT ---
RN CM Face to Face with patient for initial transition planning/care coordination assessment. RN CM introduced self and role at [facility]. Patient lying in bed, alert and oriented. Patient willing to participate in assessment and is able to answer all questions appropriately. Care providers, pharmacy, and demographics verified. Strata: 3 PCP: Geraldo Specialists: Senia, oncologist; Preferred Pharmacy: [facility] retail Insurance: [employer] Prescription Benefit: yes Living Will/HPOA: none LNOK: daughter Living Arrangements: Patient lives alone in a 2 story home with bed and bath on first floor, no steps to enter. Patient states she is independent at home. Transportation: self, daughter DME/HHC: Patient has shower chair, raised toilet, cane, grab bars, walker, rollator at home. No previous HHC or SNF. Patient wishes to discharge home, denies need for home health at this time. Patient states she has no further needs or concerns at this time. CM to follow for discharge planning needs that may arise. Disposition Plan: Patient to discharge home with family support and follow-up plans in place. Randi ESPARZA, RN, CM
[2025-05-15 14:42] VITALS: BP 131/81; PULSE 98; RESP 16; TEMP 37.2; O2SAT 97
--- NOTE | 2025-05-15 15:59 | CHAPLAIN ---
Type of Pastoral Visit _x__ Initial Visit ___ Follow-up Visit ___ On-call Visit ___ General Patient Visit ___ Spiritual Assessment ___ Family Conference ___ Bereavement ___ Rapid Response ___ Code Blue ___ Other (describe below) Pastoral Care Referral From _x__ Patient ___ Family ___ Nurse ___ Physician ___ Cub Reporter ___ Senior Ssis Developer ___ Other (describe below) Sacrament/Intervention _x__ Active listening ___ Anointing ___ Advent ___ Bereavement ___ Communion _x__ Elham exploration ___ _x__ Life review _x__ Prayer ___ Reconciliation ___ Sacrament of Sick ___ Supportive presence ___ Wedding ___ Other (describe below) Pastoral Comments patient speaks of her cancer treatments and the question of if they can continue while she has a new issue of health concern; pt has family support and they are available to help at her home; pt was three years ago and has since started attending a different taoism close to home for her convenience; pt looks to God and her elham as helpful to her in these situations; pt welcomes presence and prayer
--- NOTE | 2025-05-15 16:00 | DCINST_ITS ---
Discharge Instructions Follow Up Care Test Results: Test results from this visit will be discussed in further detail at your follow- up appointment, if applicable. Discharge Plan Admission Admit Date/Time: 05/13/25 17:23 Attending Provider: Maciel Montesinos Primary Care Provider: Shu Chow Discharge Orders/Prescriptions Prescriptions: No Action lisinopril-hydrochlorothiazide 20-25 mg Tablet 1 tab PO DAILY metoprolol succinate 50 mg tablet extended release 24 hr 50 mg PO DAILY Referrals / Follow Up: Shu Chow PA [Primary Care Provider] -
--- NOTE | 2025-05-15 16:30 | DCINST_ITS ---
Discharge Instructions DC O2, CPAP, BIPAP needs Home O2 Discharge instructions: No Dressing / Incision Discharge Activity: Return to Normal Activity Weight Bearing Status: Full weight bearing Follow Up Care Test Results: Test results from this visit will be discussed in further detail at your follow- up appointment, if applicable. Discharge Plan Admission Admit Date/Time: 05/13/25 17:23 Primary Reason for Your Visit: urinary tract infection, low potassium Attending Provider: Maciel Montesinos Primary Care Provider: Shu Chow Discharge Orders/Prescriptions Prescriptions: New ondansetron HCl 8 mg tablet 8 mg PO Q8H PRN (Reason: nausea and vomiting) Qty: 30 0RF dicyclomine 20 mg tablet 20 mg PO .QID PRN (Reason: diarrhea) Qty: 40 0RF cephalexin 500 mg capsule 500 mg PO TID Qty: 15 0RF Rx Instructions: start on 05/16/25 losartan 50 mg tablet 50 mg PO DAILY Qty: 30 0RF Continued metoprolol succinate 50 mg tablet extended release 24 hr 50 mg PO DAILY Discontinued lisinopril-hydrochlorothiazide 20-25 mg Tablet 1 tab PO DAILY Referrals / Follow Up: Shu Chow PA [Primary Care Provider] - In 1 Week [place] MD [Med Staff - Active Staff] - See Referral Note (Do not go to your appointment on 05/16/2025, office will call you for a follow-up appointment) Disposition Disposition (needs filled in before D/C Order can be placed): Home, Self Care
[2025-05-15 16:44] VITALS: BP 131/81; PULSE 98; RESP 16; TEMP 37.2; O2SAT 97
--- NOTE | 2025-05-15 16:45 | PCM.DC.SUM ---
Providers Date of Admission: 05/13/25 Date of Discharge: 05/15/25 Primary Care Physician: JUVENTINO Pérez Reason For Visit: NEW ONSET ATRIAL FIB WITH RVR, URINARY TRACT Diagnosis Discharge Diagnosis (1) Acute UTI: Status: Acute Code(s): N39.0 - Urinary tract infection, site not specified (2) Syncope and collapse: Status: Acute Code(s): R55 - Syncope and collapse Plan 1. Syncope secondary to hypotension from atrial flutter/fib-patient's metoprolol XL will be increased to 100 mg daily starting tomorrow, I gave her an extra dose of metoprolol XL 50 mg this afternoon. #2 new onset atrial flutter with RVR-I will talk with the patient concerning full anticoagulation-I will also talk with her oncologist concerning this, for now, patient will be monitored and will receive beta-leonardo, patient will undergo an echocardiogram on 05/15/2025. #[address] of the brain indicating possible metastatic cancer-patient will undergo an MRI on 05/15/2025, she follows up with oncology as an outpatient. #4 colon cancer-under active treatment with chemotherapy, complicates care, management, recovery, and prognosis #5 hypokalemia-patient will be given potassium supplementation through her IV, BMP will be rechecked #6 acute cystitis-patient will be treated with Rocephin, cultures are pending Total clinical time spent by myself addressing the patient's medical issues, reviewing all of her data, and collaborating with patient's care team: 35 minutes Medications at Discharge Home Medications metoprolol succinate 50 mg tablet,extended release 24 hr 50 mg PO DAILY 05/13/25 cephalexin 500 mg capsule 500 mg PO TID #15 caps 05/15/25 dicyclomine 20 mg tablet 20 mg PO .QID PRN diarrhea #40 tabs 05/15/25 losartan 50 mg tablet 50 mg PO DAILY #30 tabs 05/15/25 ondansetron HCl 8 mg tablet 8 mg PO Q8H PRN nausea and vomiting #30 tabs 05/15/25 Hospital Course Operations None Procedures None Summary of Care Provided Minutes Spent on Discharge: 31 Hospital Course: This 74-year-old white female was seen in the emergency room at [facility] with a chief complaint of syncope which occurred the day before she was seen in the emergency room. Patient was unsure of how long she had been unconscious, she was able to get herself back up and told the daughter about it the next day who called her PCPs office and they recommended the patient come into the emergency room for evaluation. Workup in the emergency room showed the patient to have a low white blood cell count of 2.4, hemoglobin was 11.5, chemistry profile showed a sodium of 132 and potassium of 3.1. Patient's lactic acid was elevated at 2.4, urinalysis showed +2 bacteria, 5-10 WBCs and 0-[address] of the brain showed a focal calcification of the left parietal lobe concerning for metastatic disease as the patient had a history of colon cancer. Chest x-ray showed no acute abnormality. EKG was obtained which showed atrial flutter at a rate of 97 with a variable AV block. Patient was given fluid in the emergency room, EKG was repeated and showed continued atrial flutter. Patient was admitted to PCU and monitored on telemetry, an MRI of the brain was obtained which showed no evidence of metastatic disease. I talked to the patient about taking anticoagulants and she agreed to go on anticoagulants. These were not started while the patient was in the hospital, potassium was replaced and the patient was treated with IV Rocephin for acute cystitis. On 05/15/2025, patient was seen and examined: On examination she appeared in good health and spirits, she does not appear to be in any distress. Vital signs as documented. Skin warm and dry and without overt rashes. Neck without JVD, thyroid appears normal, trachea is midline, neck is supple. Lungs clear, normal air movement was noted. Heart exam notable for irregular rhythm, normal sounds and absence of murmurs, rubs or gallops. Abdomen unremarkable and without evidence of organomegaly, masses, or abdominal aortic enlargement, bowel sounds are present in all 4 quadrants, no abdominal tenderness was noted. Extremities nonedematous, no cyanosis was noted, no clubbing was noted. Neuro: Cranial nerves II through XII are grossly intact, no focal motor deficits were noted, sensation to light touch and pinprick is intact, motor exam 5/5 throughout. Psych: Patient is alert and oriented x3, she does not appear anxious or depressed, she does not appear agitated. Patient was discharged in stable condition on 05/15/2025, prior to discharge I talked with her oncologist about placing her on anticoagulation due to the atrial flutter, he stated he did not know of any reason why she could not go on anticoagulation. Since I did not write for a prescription for Eliquis before the patient left the hospital, I contacted her PCPs office to let them know that she would need to be placed on either Eliquis or Xarelto. They were going to get a hold of the patient and discussed this with her. Weight / BMI Weight Weight: 81.5 kg Body Mass Index (BMI) 33.9 ABG / Lab / Microbiology Data 05/14/25 06:05 05/15/25 05:02 Laboratory: Laboratory Results - last 24 hr 05/15/25 05:02: Sodium 134, Potassium 3.3, Chloride 108, Carbon Dioxide 17.1 L, Anion Gap 10, BUN 6, Creatinine 0.59 L, Estim Creat Clear Calc 58.78, Est GFR (MDRD) Non-Af 94, BUN/Creatinine Ratio 9.4 L, Glucose 106 H, Calcium 7.9 Microbiology: Microbiology 05/13/25 17:01 Blood Culture (Wb) - Port Blood Culture - Preliminary No growth in 48 hours. 05/13/25 17:05 Blood Culture (Wb) - Right Wrist Blood Culture - Preliminary No growth in 48 hours. 05/13/25 15:43 Urine, Random Urine Culture - Final Klebsiella pneumoniae sp pneum Mixed Gram Pos & Gram Neg Org Radiography Diagnostic Testing: Radiology Impression Brain MRI 05/15/25 07:00 IMPRESSION: 1. There is an area of abnormal signal on the gradient echo images corresponding to the coarse calcifications seen in the left parietal lobe, posteriorly. There is no associated vasogenic edema or contrast enhancement. This is likely a chronic finding, of questionable clinical significance. 2. There are no foci of abnormal intracranial contrast enhancement or vasogenic edema to suggest metastatic disease. 3. Findings consistent with chronic ischemic white matter disease. Reading Location: [place] [address] D/C Instructions Weight Bearing Status: Full weight bearing DC O2, CPAP, BIPAP Needs Home O2 Discharge instructions: No Meaningful Use Info Meaningful Use Meaningful Use Diagnoses (Choose all that apply): None applicable Discharge Plan Admission Admit Date/Time: 05/13/25 17:23 Primary Reason for Your Visit: urinary tract infection, low potassium Attending Provider: Maciel Montesinos Primary Care Provider: Shu Chow Instructions Additional Instructions / Restrictions: Additional note entered on 05/15/2025 at 6:18 PM: I called in a prescription to the patient's pharmacy for metoprolol succinate 50 mg number 90, 3/day starting 05/16/2025, I also gave word to the pharmacist at [facility] that I would be contacting the patient regarding an anticoagulant for the patient-it appears that neither Eliquis or Xarelto is covered with her prescription plan. I was unable to get a hold of the patient after she left the hospital and I was unable to get hold patient's daughter also. Discharge Orders/Prescriptions Prescriptions: New ondansetron HCl 8 mg tablet 8 mg PO Q8H PRN (Reason: nausea and vomiting) Qty: 30 0RF dicyclomine 20 mg tablet 20 mg PO .QID PRN (Reason: diarrhea) Qty: 40 0RF cephalexin 500 mg capsule 500 mg PO TID Qty: 15 0RF Rx Instructions: start on 05/16/25 losartan 50 mg tablet 50 mg PO DAILY Qty: 30 0RF Continued metoprolol succinate 50 mg tablet extended release 24 hr 50 mg PO DAILY Discontinued lisinopril-hydrochlorothiazide 20-25 mg Tablet 1 tab PO DAILY Referrals / Follow Up: [place] MD [Med Staff - Active Staff] - See Referral Note (Do not go to your appointment on 05/16/2025, office will call you for a follow-up appointment) Shu Chow PA [Primary Care Provider] - In 1 Week (office closed at time of discharge. Please call and schedule follow up appointment.) Disposition Disposition (needs filled in before D/C Order can be placed): Home, Self Care Charges/Coding Visit Charges Inpatient E&M: 00961 Disch Hosp >30min
== END 2025-05-15 17:45 | disposition home or self-care (01) | DRG 309 ==
LOC: ED 16:59 → PCU 18:13
PROVIDERS: Admitting Provider Internal Medicine; Emergency Provider Emergency Medicine; PCP Physician Assistant; Visit Provider Internal Medicine
DX: I48.92 Unspecified atrial flutter (principal); C18.9 Malignant neoplasm of colon, unspecified; C79.9 Secondary malignant neoplasm of unspecified site; N30.00 Acute cystitis without hematuria; I10 Essential (primary) hypertension; E87.6 Hypokalemia; Z92.21 Personal history of antineoplastic chemotherapy; Z87.891 Personal history of nicotine dependence; Z79.899 Other long term (current) drug therapy
CPT/HCPCS: 36415; 36591; 70450; 70552; 70553; 71045; 80048; 80053; 81001; 83605; 83690; 83735; 85025; 87040; 87077; 87086; 87088; 87186; 93005; 97116; 97162; 97166; 97535; 97802; 99285; A9575; A4216

== ENCOUNTER → 2025-06-05 | Outpatient (CLI) | payer MEDICARE, SELFPAY ==
--- NOTE | 2025-06-05 12:59 | ECHOCS_ITS ---
Reason For Study Reason For Study: ATRIAL FLUTTER Procedure This was a 2D Doppler, Color Flow transthoracic echocardiogram. Myocardial strain analysis was performed in this exam to aid in the assessment of cardiac function. Exam performed in department. Left Ventricle Normal LV size. The left ventricular ejection fraction is 60 %. No regional wall motion abnormalities noted. Right Ventricle Normal RV size. Normal systolic function. Atria Normal left atrium. Normal right atrium. Mitral Valve Normal mitral valve. Tricuspid Valve Normal tricuspid valve. Mild (1+) tricuspid valve insufficiency. Pulmonary artery systolic pressure is 23 mmHg. Aortic Valve Trisinus/trileaflet aortic valve. Mild focal aortic valve calcification. Pulmonic Valve Normal pulmonic valve. Great Vessels Normal aortic root. The pulmonary artery is normal size. Inferior vena cava collapse with respiration. Pericardium/Pleural No pericardial effusion. MMode/2D Measurements & Calculations LVIDd: 4.0 cm IVSd: 1.1 cm LVOT diam: 2.0 cm LVIDs: 2.5 cm LVPWd: 0.76 cm LVOT area: 3.1 cm2 RVDd: 2.8 cm FS: 37.1 % asc Aorta Diam: 3.2 cm LAV(MOD-bp): 19.4 ml LVAd ap4: 18.4 cm2 LAV(MOD-bp) Indexed: 10.7 ml/m2 LVLd ap4: 6.7 cm LAV(MOD-sp2): 18.0 ml EDV(MOD-sp4): 42.3 ml LAV(MOD-sp4): 21.5 ml EDV(sp4-el): 42.7 ml LVAs ap4: 10.8 cm2 LVLs ap4: 5.8 cm ESV(MOD-sp4): 17.3 ml ESV(sp4-el): 17.2 ml EF(MOD-sp4): 59.2 % EF(sp4-el): 59.6 % LVAd ap2: 17.3 cm2 SV(MOD-sp4): 25.0 ml SV(MOD-sp2): 20.4 ml LVLd ap2: 6.6 cm SI(MOD-sp4): 13.9 ml/m2 SI(MOD-sp2): 11.3 ml/m2 EDV(MOD-sp2): 37.4 ml EDV(sp2-el): 38.5 ml LVAs ap2: 10.8 cm2 LVLs ap2: 5.6 cm ESV(MOD-sp2): 17.0 ml ESV(sp2-el): 17.5 ml EF(MOD-sp2): 54.6 % SV(sp4-el): 25.5 ml Ao sinus diam: 3.[address] Junction: 2.6 cm LA dimension(2D): 3.3 cm LA A4 area: 10.5 cm2 RA A4 area: 9.6 cm2 TAPSE: 1.8 cm Time Measurements MV dec time: 0.16 sec Doppler Measurements & Calculations MV E max gerson: 82.0 cm/sec Lat Peak E' Gerson: 9.5 cm/sec Med Peak E' Gerson: 9.3 cm/sec MV A max gerson: 78.3 cm/sec E/E' lat: 8.6 E/E' med: 8.8 MV E/A: 1.0 MV dec slope: 520.5 cm/sec2 Ao V2 max: 103.6 cm/sec LV V1 max: 89.9 cm/sec Ao max P.3 mmHg LV V1 max P.2 mmHg Ao V2 mean: 79.1 cm/sec LV V1 mean P.2 mmHg Ao mean P.7 mmHg LV V1 mean: 73.4 cm/sec Ao V2 VTI: 21.7 cm LV V1 VTI: 17.6 cm AV (velocity ratio): 0.81 LINETTE(I,D): 2.5 cm2 LINETTE(V,D): 2.7 cm2 SV(LVOT): 54.4 ml PA V2 max: 73.1 cm/sec TR max gerson: 220.7 cm/sec TR max P.5 mmHg ECHO/Echo Complete Interpretation Summary The left ventricular ejection fraction is 60 %. Normal LV size. Structurally normal valves. The global longitudinal strain is borderline abnorm al. The global longitudinal strain = -16% (abnormal). Ordering Physician: Shu Chow Referring Physician: Shu Chow Performed By: Carlie Bell RDCS
== END | disposition home or self-care (01) ==
PROVIDERS: PCP Physician Assistant; Referring Provider Physician Assistant; Visit Provider Physician Assistant
DX: R55 Syncope and collapse (principal); I48.92 Unspecified atrial flutter
CPT/HCPCS: 93306

== ENCOUNTER 2025-09-11 17:56 | Emergency (ER) | payer MEDICARE, SELFPAY ==
[2025-09-11] VITALS (7 sets, daily range): BP systolic 151–180; BP diastolic 67–89; PULSE 68–86; RESP 16–18; TEMP 37–37.2; O2SAT 96–100; BMI 33.8
--- NOTE | 2025-09-11 19:25 | RAD_ITS ---
PROCEDURE: CHEST PA AND LATERAL 09/11/2025 REASON FOR EXAM: COUGH TECHNIQUE: Procedure Code: RADCXR Modality: DX Procedure: CHEST PA AND LATERAL COMPARISON: 05/13/2025. FINDINGS: Left chest infusion port. The heart is normal in size. The lungs are clear. No acute osseous abnormalities. RAD/Chest PA and Lateral IMPRESSION: NO ACUTE FINDINGS. Reading Location: [id number]
[2025-09-11 19:29] LABS: Hematocrit 37.2 % (37-47); Hemoglobin 12.2 g/dL (12.0-15.0); Immature Granulocytes Count 0.010 X10^3/uL (0.0-0.0); Mean Corp Hgb Conc 32.8 g/dL (32-36); Mean Corpuscular Volume 97.6 fL (81-99); Mean Platelet Vol. 8.8 fl (6.2-12.0); Platelet Count 221 K/mm3 (150-450); RBC Distribution Width CV 13.5 % (11.6-14.6); RBC Distribution Width SD 47.9 fl (35.1-43.9); Red Blood Count 3.81 M/mm3 (4.2-5.4); White Blood Count 4.7 K/mm3 (4.4-11.0)
[2025-09-11 19:30] LABS: NRBC Flagged by Analyzer 0 % (0-5)
--- NOTE | 2025-09-11 19:55 | EX.ED.DYSGE1 ---
HPI History of Present Illness Chief Complaint: Cold Sx Informant: patient and family Narrative Narrative: 75-year-old female presenting to the emergency room with "sore throat fever congestion and cough. Patient currently undergoing chemotherapy with the [facility] for colon cancer. She notes that yesterday she developed sore throat nasal congestion and cough. Today noted a temperature of 100.1. She denies any urinary symptoms. Out of abundance of caution she came to emergency. [facility] Medical History NELSON (obstructive sleep apnea) Obesity Vitamin D deficiency Dizziness New onset a-fib Abnormal brain CT Neutropenia Syncope and collapse Lung nodules Colon cancer Back pain Atrial flutter Anemia Diarrhea due to drug Encounter for chemotherapy management Loss of hearing Asthma Encounter for education Regional lymph node metastasis present Degenerative joint disease Arthritis High cholesterol History of Meniere's disease Hypertension Home Medications Medication Instructions Recorded Last Taken Type metoprolol succinate 50 mg 50 mg PO DAILY 05/13/25 05/13/25 History tablet,extended release 24 hr dicyclomine 20 mg tablet 20 mg PO .QID PRN diarrhea #40 tabs 05/15/25 Unknown Rx losartan 50 mg tablet 50 mg PO DAILY #30 tabs 05/15/25 Unknown Rx ondansetron HCl 8 mg tablet 8 mg PO Q8H PRN nausea and 05/15/25 Unknown Rx vomiting #30 tabs apixaban 5 mg tablet (Eliquis) 5 mg PO DAILY 05/30/25 Unknown History loperamide 2 mg capsule (Imodium 2 mg PO Q6H PRN loose stool 05/30/25 Unknown History A-D) calcium 600 mg (as 1 tab PO QDAY 06/23/25 Unknown History carbonate)-vitamin D3 10 mcg (400 unit) tablet (Calcium with Vitamin D) magnesium 200 mg tablet 200 mg PO DAILY 09/11/25 Unknown History Allergy/AdvReac Type Severity Reaction Status Date / Time oxaliplatin Allergy Intermediate Rash Verified 09/11/25 18:00 Family History Father Heart disease Aunt Breast cancer Surgical History History of hysteroscopy History of colectomy History of total right knee replacement Hx of colonoscopy Social History Smoking Status: Former smoker Tobacco: How many years used: 5 alcohol intake: never substance use type: does not use ROS ROS ED Constitutional Constitutional ED: Reports fever(s) and other Details: Temperature is 100.1 at home ; Denies chills or weight loss Eyes Eyes: Denies change in vision or diplopia ENT ENT ED: Reports rhinorrhea and sore throat; Denies ear pain Cardiovascular Cardiovascular: Denies chest pain, orthopnea, palpitations or racing heartbeat Respiratory/Chest Respiratory/Chest: Reports cough; Denies dyspnea or orthopnea Gastrointestinal Gastrointestinal: Reports nausea and vomiting; Denies abdominal pain or diarrhea Genitourinary Genitourinary ED: Denies dysuria, hematuria or urinary frequency Musculoskeletal Musculoskeletal: Denies arthralgias or myalgias Integumentary Denies abscess or rash Neurologic Neurologic: Denies headache(s) or weakness Psychiatric Psychiatric: Denies anxiety, depression, suicidal ideation or suicidal thoughts Endocrine Endocrinology: Denies polydipsia, polyphagia or polyuria Allergic/Immunologic Allergic/Immunologic ED: Denies mouth swelling, tongue swelling or urticaria EXAM Physical Exam Const Vital Signs: 09/11/25 18:00 09/11/25 18:02 09/11/25 19:00 Temperature 99 F 99 F 98.7 F Temperature Source Oral Oral Oral Pulse Rate 86 86 71 Respiratory Rate 18 18 18 Respiratory Effort Respiratory Pattern Blood Pressure 174/83 H 174/83 H 155/89 H Blood Pressure Mean 113 113 111 Pulse Ox 97 97 97 Oxygen Delivery Method Room Air Room Air Room Air 09/11/25 19:00 09/11/25 20:00 09/11/25 21:00 Temperature 98.7 F 98.6 F Temperature Source Oral Oral Pulse Rate 72 68 Respiratory Rate 18 18 Respiratory Effort Normal Non-Labored Respiratory Pattern Normal Blood Pressure 180/79 H 171/74 H Blood Pressure Mean 112 106 Pulse Ox 96 96 Oxygen Delivery Method Room Air Room Air 09/11/25 22:00 09/11/25 22:26 Temperature 98.8 F 98.8 F Temperature Source Oral Pulse Rate 75 74 Respiratory Rate 16 18 Respiratory Effort Respiratory Pattern Blood Pressure 169/83 H 151/67 H Blood Pressure Mean 111 95 Pulse Ox 100 100 Oxygen Delivery Method Room Air Positive well nourished and well developed General Appearance ED: well developed and NAD HEENT Reports normocephalic, head/scalp atraumatic and moist mucous membranes HEENT Narrative: No significant oropharyngeal erythema or exudate. No palatal petechiae. Tympanic membranes appear normal. Patient has nasal congestion. Eyes PERRL and EOMs intact bilaterally Neck supple and no JVD Neck Narrative: Tender cervical lymphadenopathy Resp normal respiratory effort and clear to auscultation bilaterally Cardio regular rate, regular rhythm and no murmurs GI normal to inspection, nondistended, normoactive bowel sounds and non-tender Palpation: soft Back/Spine no CVA tenderness and normal ROM Extremity normal to inspection General Extremety ED: Negative for edema General Extremity: Negative for edema Neuro oriented x3 and CN's II-XII intact bilaterally Sensorium / Orientation: alert Motor Exam: strength 5/5 throughout Psych mental status grossly normal Mood & Affect: Negative for depressed or tearful Skin no rashes or lesions noted and no wounds MDM MDM MDM Narrative Medical decision making narrative: Differential diagnosis includes viral URI pharyngitis viral syndrome bronchitis pneumonia UTI sepsis Patient clinically appears well other than nasal congestion. Her white count is 4.7 hemoglobin 12.2 platelet count of 221. CMP glucose is 92. Urinalysis shows 5-10 white cells 10-25 squamous cells 0 bacteria negative nitrates and again she is not symptomatic. COVID influenza and RSV swabs were negative my independent interpretation of the chest x-ray is no acute process. At this point patient has yet to have a fever here in the department she is down to 98.8. I think she can be discharged home with supportive care most likely has a viral URI History & Record Review Discussion w/independent historian: Patient and Family Additional record(s) reviewed:: Prior outpatient record and Prior labs Lab Data Attestation: I reviewed the patient's lab results. Labs: Laboratory Results - last 24 hr 09/11/25 09/11/25 19:18 19:50 WBC 4.7 RBC 3.81 L Hgb 12.2 Hct 37.2 MCV 97.6 MCH 32.0 MCHC 32.8 RDW Std Deviation 47.9 H RDW Coeff of Kecia 13.5 Plt Count 221 MPV 8.8 Immature Gran % (Auto) 0.200 Neut % (Auto) 59.0 Lymph % (Auto) 26.1 Pope % (Auto) 12.8 H Eos % (Auto) 1.7 Baso % (Auto) 0.2 Absolute Neuts (auto) 2.8 Absolute Lymphs (auto) 1.22 Nucleated RBC % 0 Sodium 133 Potassium 4.0 Chloride 99 Carbon Dioxide 22.7 Anion Gap 11 BUN 10 Creatinine 0.58 L Estim Creat Clear Calc 60.11 Est GFR (MDRD) Non-Af 94 BUN/Creatinine Ratio 17.2 Glucose 92 Calcium 8.8 Total Bilirubin 0.31 AST 23 ALT 24 Alkaline Phosphatase 69 Total Protein 6.2 Albumin 3.3 L Globulin 2.9 Albumin/Globulin Ratio 1.1 Urine Color Straw Urine Clarity Clear Urine pH 7.0 Ur Specific [place] 1.010 Urine Protein Negative Urine Glucose (UA) Normal Urine Ketones Negative Urine Occult Blood Negative Urine Nitrite Negative Urine Bilirubin Negative Urine Urobilinogen Normal Ur Leukocyte Esterase 100 H Urine RBC 0-5 SEEN Urine WBC 5-10 SEEN Ur Squamous Epith Cells 10-25 SEEN Urine Bacteria 0 SEEN Urine Mucus 0 SEEN Radiography Diagnostic Testing: Clinical Impression(s) from Imaging Studies Chest X-Ray 09/11/25 19:25 IMPRESSION: NO ACUTE FINDINGS. Reading Location: [facility] Discharge Plan Triage Chief Complaint: Cold Sx ED Provider: Cali Silva Dx/Rx/DC Orders Clinical Impression: Viral URI Instructions: ED URI, Viral, No Abx (Adult) Prescriptions: No Action Eliquis 5 mg tablet 5 mg PO DAILY loperamide [Imodium A-D] 2 mg capsule 2 mg PO Q6H PRN (Reason: loose stool) calcium carbonate-vitamin D3 [Calcium with Vitamin D] 600 mg-10 mcg (400 unit) tablet 1 tab PO QDAY metoprolol succinate 50 mg tablet extended release 24 hr 50 mg PO DAILY ondansetron HCl 8 mg tablet 8 mg PO Q8H PRN (Reason: nausea and vomiting) Qty: 30 0RF dicyclomine 20 mg tablet 20 mg PO .QID PRN (Reason: diarrhea) Qty: 40 0RF losartan 50 mg tablet 50 mg PO DAILY Qty: 30 0RF magnesium 200 mg tablet 200 mg PO DAILY Primary Care Provider: Shu Chow Referrals: Shu Chow PA [Primary Care Provider, Medical] - As Needed Print Language: Hong Konger Disposition Disposition: Home, Self Care Discharge Date/Time: 09/11/25 22:30
[2025-09-11 20:07] LABS: Mucous, Urine 0 SEEN /hpf (<or=2+)
[2025-09-11 20:22] LABS: AST(SGOT) 23 U/L (<=31); Alanine Aminotransfer ALT/SGPT 24 U/L (<=34); Albumin, Serum 3.3 g/dL (3.4-4.8); Alkaline Phosphatase 69 U/L (35-104); Anion Gap 11 (5-15); BUN 10 mg/dL (4-19); BUN/Creat Ratio 17.2 RATIO (10-20); Calcium,Total 8.8 mg/dL (7.6-11.0); Carbon Dioxide 22.7 mmol/L (21.0-32.0); Chloride 99 mmol/L (98-108); Estimated Creatinine Clearance 60.11 ml/min (50-250); Globulin 2.9 g/dL (2.2-4.2); Glucose 92 mg/dL (70-99); Potassium 4.0 mmol/L (3.3-5.1)
--- OUTSIDE RECORDS SUMMARY | 2025-09-11 20:45 | XMS RPT_ITS | CCD ---
Author Organization [facility] Care Team Providers Care Boss Dyer Name Role Phone Pavel Elkins Unavailable Unavailable Jonas Elkinsay Unavailable Unavailable Shu Chow PA-C Unavailable Shu Chow PA-C Unavailable Etta tank bottom assembler, . . Unavailable [phone] ENT Provider Unavailable Unavailable General Surgery Provider Unavailable Unavail able [facility], . Unavailable Lin PIRES, Dr. Bart Rausch Unavailable [phone] Orthopedic Provider Unavailable Unavailable Hiral Douglas PA-C Unavailable Vanna STRAINER TENDER, Becky Unavailable Joao ZHUN, Sasha Amador Unavailable Unavailable Keila STRAINER TENDER, Roverto Rausch Unavailable Unavailab Nicole Mcmillan Unavailable Unavailable Russ STRAINER TENDER, Irish Unavailable Unavailabl e Citlali STRAINER TENDER, Venessa K Unavailable Josie Bray WORKDAY FINANCIALS CONSULTANT-C, Robin Shay Unavailable [phone] Shalini TELLO, Khalida Unavailable Unavailable Silvestre STRAINER TENDER, Karlie Unavailable Unavailable Nathalie Jett MA Unavailable Unavailable Benny STRAINER TENDER, Andrew Unavailable Unavailable Unavailable Unavailable Dameon PINEDA, Carlie Unavailable Unavailabl e Shu Chow PA-C Primary Care Provider Hiral Dillon RN Unavailable Unavaila brant LEGER, Sachi G Unavailable Zeferino TELLO, Eleonora Unavailable Unavailable Christie HERNANDEZ, Aym Unavailable Unavailable Chow PA-C, Shu J Primary Care Provider Cheryl MACARIO, Crystal Unavailable Unavail able Chow PA, Shu Primary Care Provider Shikha Marroquin LPN Attending Provider Unavailab brenda Rosas MD, Dr. Nj Referring Provider Senia PIRES, Dr. Wolff Attending Provider Senia PIRES, Dr. Wolff Referring Provider Chow PA, Shu Referring Provider Keila WORKDAY FINANCIALS CONSULTANT-C, Alyssa Attending Provider Eder PIRES, Dr. Michael Mays Attending Provider Eder PIRES, Dr. Michael Mays Referring Provider Eder PIRES, Dr. Michael Mays Other Provider Senia PIRES, Dr. Wolff Referring Provider Senia PIRES, Dr. Wolff Referring Provider Senia PIRES, Dr. Wolff Referring Provider MACKENZIE REYES Attending Unavailable CHOW, [...] Unavailable CHOW, SHU J Primary Care Unavailable BOLES, FLEX Referring Unavailable CHAKA, SACHI G Attending Unavailable CHOW, SHU J Referring Unavailable CHOW, SHU J Primary Care Unavailable CHAKA, SACHI G Attending Unavailable AGATA MONTOYA Attending Unavailable CHOW, SHU J Primary Care Unavailable MALICK RICCI Referring Unavailable CHOW, SHU J Referring Unavailable CHOW, SHU J Primary Care Unavailable CHAKA, SACHI G Attending Unavailable BOLES, FLEX Referring Unavailable CHOW, SHU J Primary Care Unavailable CONSULT, ANESTHESIA PAIN MED Consulting Silvina vailable CHAKA, SACHI G Admitting Unavailable CHAKA, SACHI G Attending Unavailable MACKENZIE REYES Attending Unavailable SHU CHOW Primary Care Unavailable CHAKA, SACHI G Referring Unavailable Dr. [place] MD Referring Provider Dr. [place] MD Referring Provider Dr. Cadence Castillo DO Emergency Provider Jaguar DAWSON, Dr. St Admit Provider Jaguar DAWSON, Dr. St Attending Provider Jaguar DAWSON, Dr. St Other Provider Lee PIRES, Malick Pimentel Unavailable Cardiology Provider Unavailable Unavailable Lizette Kuo Unavailable Unavailabl perry Esquivel MD, Dr. Lopez Attending Provider Dr. [place] MD Referring Provider Dr. [place] MD Referring Provider Chow PA, Shu Attending Provider Kevin PIRES, Dr. Ferguson Attending Provider Dr. [place] MD Referring Provider Dr. [place] MD Referring Provider Chow PA, Shu Primary Care Provider Dr. [place] MD Attending Provider Dr. [place] MD Referring Provider Chow PA, [place] Primary Care Physician Chow PA, Shu Referring Provider Keila MELLO-Alyssa Vela Attending Physician Dr. [place] MD Attending Physician Dr. Cadence Castillo DO Emergency Department Physi taryn Jaguar DAWSON, Dr. St Admitting Physician Dr. Maciel Montesinos DO Attending Physician Dr. Maciel Montesinos DO Nurse Practitioner Dr. John Esquivel MD Attending Physician Chow PA, Shu Attending Physician Dr. Marty Brown MD Attending Physician Dr. [place] MD Referring Provider BOLES, FLEX Admitting Unavailable BOLES, FLEX Attending Unavailable BOLES, FLEX Primary Care Unavailable CHOW, SHU J Consulting Unavailable PROVIDER, UNKNOWN Consulting Unavailable CHOW, SHU J Admitting Unavailable CHOW, SHU J Attending Unavailable CHOW, SHU J Primary Care Unavailable CHOW, SHU J Consulting Unavailable PROVIDER, UNKNOWN Consulting Unavailable BOLES, FLEX Admitting Unavailable BOLES, FLEX Attending Unavailable BOLES, FLEX Primary Care Unavailable CHOW, SHU J Consulting Unavailable PROVIDER, UNKNOWN Consulting Unavailable BOLES, FLEX Admitting Unavailable BOLES, FLEX Attending Unavailable BOLES, FLEX Primary Care Unavailable CHOW, SHU J Consulting Unavailable PROVIDER, UNKNOWN Consulting Unavailable Chow PA, Shu Primary Care Physician Chow PA, Shu Referring Provider Keila WORKDAY FINANCIALS CONSULTANT-C, Alyssa Attending Physician Dr. Marty Brown MD Referring Provider Dr. [place] MD Referring Provider Chow PA, Shu Primary Care Physician Dr. Cadence Castillo DO Emergency Department Physi taryn Dr. Maciel Montesinos DO Admitting Physician Dr. Maciel Montesinos DO Attending Physician Dr. Maciel Montesinos DO Nurse Practitioner Chow PA, Shu Referring Provider Dr. John Esquivel MD Attending Physician Chow PA, Shu Attending Physician Dr. Marty Brown MD Attending Physician Dr. [place] MD Attending Physician Keila WORKDAY FINANCIALS CONSULTANT-C, Alyssa Attending Physician Dr. Marty Brown MD Referring Provider Dr. [place] MD Referring Provider Maciel Montesinos Admitting Unavailable TerMaciel guerin Consulting Unavailable Maciel Montesinos Attending Unavailable Chow PA, Shu Primary Care Unavailable Marty Brown Attending Unavailable Chow PA, Shu Primary Care Unavailable Michael Gaines Attending Unavailable Chow PA, Shu Referring Unavailable Chow PA, Shu Primary Care Unavailable Keila WORKDAY FINANCIALS CONSULTANT, Alyssa Attending Unavailable Chow PA, Shu Referring Unavailable Chow PA, Shu Primary Care Unavailable Chow PA, Shu Attending Unavailable Chow PA, Shu Referring Unavailable Chow PA, Shu Primary Care Unavailable [place] Referring Unavailable [place] Attending Unavailable Chow PA, Shu Primary Care Unavailable Maciel Montesinos Attending Unavailable Jorgeeletslenny Maciel Admitting Unavailable Chow PA, Shu Primary Care Unavailable TereletskyMaciel Admitting Unavailable TerhermankyMaciel Consulting Unavailable Maciel Montesinos Attending Unavailable Chow PA, Shu Primary Care Unavailable Chow PA, Shu Primary Care Unavailable Chow PA, Shu Referring Unavailable [place] Attending Unavailable Marty Brown Attending Unavailable Chow PA, Shu Referring Unavailable Chow PA, Shu Primary Care Unavailable Keila WORKDAY FINANCIALS CONSULTANT, Alyssa Attending Unavailable Chow PA, Shu Primary Care Unavailable Chow PA, Shu Referring Unavailable Chow PA, Shu Primary Care Unavailable Chow PA, Shu Referring Unavailable IsckarusNew Attending Unavailable Chow PA, Shu Referring Unavailable Chow PA, Shu Primary Care Unavailable Keila WORKDAY FINANCIALS CONSULTANT, Alyssa Attending Unavailable Chow PA, Shu Referring Unavailable IsckarNew brock Attending Unavailable Chow PA, Shu Primary Care Unavailable Isckarus Mansour Attending Unavailable Chow PA, Shu Referring Unavailable Chow PA, Shu Primary Care Unavailable Isckarus Mansjackie Attending Unavailable Chow PA, Shu Referring Unavailable Chow PA, Shu Primary Care Unavailable Keila WORKDAY FINANCIALS CONSULTANT, Alyssa Attending Unavailable Chow PA, Shu Referring Unavailable Chow PA, Shu Primary Care Unavailable Michael Gaines Consulting Unavailable Michael Gaines Attending Unavailable Michael Gaines Referring Unavailable Chow PA, Shu Primary Care Unavailable Chow PA, Shu Referring Unavailable Chow PA, Shu Primary Care Unavailable Keila WORKDAY FINANCIALS CONSULTANT, Alyssa Attending Unavailable Wanek, Michael Mays Attending Unavailable Albinoek, Michael Mays Referring Unavailable Chow PA, Shu Primary Care Unavailable Kevin, Marty Attending Unavailable Kevin, Marty Referring Unavailable Chow PA, Shu Primary Care Unavailable Chow PA, Shu Primary Care Unavailable Shikha Marroquin Attending Unavailable Chow PA, Shu Referring Unavailable Isckarus, New Attending Unavailable Chow PA, Shu Primary Care Unavailable Chow PA, Shu Primary Care Unavailable Chow PA, Shu Referring Unavailable Isckarus, Mansour Attending Unavailable PrahJohn Attending Unavailable Chow PA, Shu Primary Care Unavailable Chow PA, Shu Referring Unavailable Chaka, Sachi Referring Unavailable Isckarus, New Attending Unavailable Chow PA, Shu Primary Care Unavailable Allergies Allergy Classification Reported Allergen(s) Allergy Type Date of Onset Reaction(s) Facility (1 source) oxaliplatin Drug Allergy 09-05-2025 Rash [facility] Comment on above: With cycle 9 chemoth erapy (1 source) oxaliplatin Drug Allergy 09-05-2025 [facility] Repository Medications Current Medications Medication Drug Class(es) Dates [...] Pain. 01/24/2025 Discontinued (Stop Taking at Discharge) apixaban 5 mg oral tablet (20 sources) Factor Xa Inhibitor Start: 05-30-2025 take 1 tablet by mouth twice daily Start: 05-16-2025 End: 05-19-2025 Eliquis 5 mg tablet ; 1 (one ) tablet bid for 0 days Quantity: 60 {Tablet} Refills: 0 Ordered: 19-May-2025 Lizette Kuo Logan Start: 16-May-2025 End: 19-May-2025 Status: Inactive calcium carbonate 1500 mg / cholecalciferol 0.01 mg oral tablet (20 sources) Vitamin D Start: 06-23-2025 Start: 03-18-2021 End: 03-06-2025 Calcium Carbonate-Vitamin D3 (Calcium 600 + D(3)) 600 mg(1,500mg) -400 unit Tablet Discontinued 3 {tbl} PO DAILY March 17, 2021 11:00pm March 06, 2025 3:49pm calcium citrate 950 mg oral tablet (8 sources) take 1 tablet by mouth once daily in the morning Calcium citrate 950 (200 Ca) MG tablet Take 1 tablet by mouth daily every morning. Active Calcium Citrate / Vitamin D (20 sources) Calcium-Vitamin D dicyclomine hydrochloride 20 mg oral tablet (20 sources) Anticholinergic Start: 05-15-2025 take 1 tablet by mouth four times daily as needed for diarrhea dicyclomine 20 m g tablet ; 1 tab PRN daily (20 mg) gabapentin 100 mg oral capsule (4 sources) Anti-epileptic Agent Start: 01-23-2025 End: 02-03-2025 take 1 capsule by mouth every eight hours Gabapentin 100 MG capsule Take 1 capsule by mouth every 8 hours for 10 days. 30 capsule 01/24/2025 02/03/2025 Active Start: 01-23-2025 End: 01-23-2025 take 1 dose by mouth once 300 mg, Oral, ONCE, 1 dose, On 01/23/25 at 0600, Pre-op/Pre-Proc ibuprofen 600 mg oral tablet (3 sources) Nonsteroidal Anti-inflammatory Drug Start: 01-23-2025 End: 02-03-2025 take 1 tablet by mouth every eight hours Ibuprofen 600 MG tablet Take 1 tablet by mouth every 8 hours for 10 days. 30 tablet 01/24/2025 02/03/2025 Active loperamide hydrochloride 2 mg oral capsule (9 sources) Opioid Agonist Start: 05-30-2025 take 1 capsule by mouth every six hours as needed losartan potassium 50 mg oral tablet (20 sources) Angiotensin 2 Receptor Leonardo Start: 05-15-2025 take 1 tablet by mouth once daily 24 hr metoprolol succinate 50 mg extended release oral tablet (20 sources) beta-Adrenergic Leonardo Start: 02-23-2025 take 1 tablet by mouth once daily Start: 06-27-2024 End: 01-28-2025 metoprolol succinate ER [...] 27-Jul-2023 JOELLE Chow Start: 27-Jul-2023 Start: 03-18-2021 End: 05-13-2025 take 1 tablet by mouth once daily Metoprolol Tartrate 50 mg Tablet Discontinued 50 mg PO DAILY March 17, 2021 11:00pm May 13, 2025 11:17am Start: 04-29-2017 End: 12-10-2017 take 1 tablet by mouth once daily Metoprolol Tartrate 50 MG Oral Tablet ; 1 (one) Tablet daily for 0 days Quantity: 90 {Tablet} Refills: 3 Ordered: 10-Dec-2017 JOELLE Chow Start: 29-Apr-2017 End: 10-Dec-2017 Status: Inactive Multivitamin Adults Oral Tablet (20 sources) take 1 tablet by mouth once daily Multivitamin Adults Oral Tablet ; 1 daily Multivitamin tablet (20 sources) Start: 06-23-2025 Start: 06-23-2025 Start: 06-23-2025 Multivitamin t ablet Active 1 {tbl} PO daily June 23, 2025 12:00am Start: 03-06-2025 End: 05-13-2025 Multivitamin tablet Disconti nued 1 {tbl} PO daily March 05, 2025 11:00pm May 13, 2025 11:37am Start: 03-06-2025 End: 05-13-2025 Multivitamin tablet Disconti nued 1 {tbl} PO daily March 06, 2025 12:00am May 13, 2025 12:37pm Start: 03-06-2025 Multivitamin t ablet Active 1 {tbl} PO daily March 06, 2025 12:00am ondansetron 8 mg oral tablet (20 sources) Serotonin-3 Receptor Antagonist Start: 05-15-2025 take 1 tablet by mouth every eight hours as needed for nausea and vomiting Start: 03-15-2025 End: 05-13-2025 take 1 tablet by mouth every eight hours as needed for nausea and vomiting Ondansetron 8 mg tablet,disintegrating Discontinued 8 mg PO Q8H as needed for nausea and vomiting March 14, 2025 11:00pm May 13, 2025 11:37am Malignant neoplasm of colon Malignant neoplasm of ascending colon Start: 01-24-2025 End: 01-28-2025 take 4 mg intravenously every six hours as needed Start: 01-23-2025 End: 01-24-2025 take 4 mg intravenously every six hours 4 mg, Intravenous, EVERY 6 HOURS NON-STANDARD, 4 doses, First dose on Thu01/23/25 at 1300, Last dose on Thu01/24/25 at 0500, Post-op/Post-Proc Comment on above: Medication taken as needed. Tumeric (6 sources) Start: 06-23-2025 Start: 06-23-2025 Start: 06-23-2025 Tumeric Active PO June 23, 2025 12:00am Completed/Discontinued Medications Medication Drug Class(es) Dates Sig (Normalized) Sig (Original) acetaminophen 325 mg / oxyCODONE hydrochloride 5 mg oral tablet (16 sources) Opioid Agonist Start: 03-20-2025 End: 05-13-2025 Oxycodone-Acetamin ophen (Percocet) 5-325 mg tablet Discontinued 1 {tbl} PO Q8H as needed for pain 5 3 0 March 20, 2025 May 13, 2025 11:36am Malignant neoplasm of colon Malignant neoplasm of ascending colon amoxicillin 875 mg / clavulanate 125 mg [...] oral tablet (20 sources) Macrolide Antimicrobial Start: 6 End: 7 Zithromax Z-David 250 MG Oral Tablet ; 2 (two) Tabs day one, then one daily for 4 days for 0 days Quantity: 1 {Package} Refills: 0 Ordered: 28-Apr-2017 MIRIAM Solano Start: 09-Oct-2016 End: 28-Apr-2017 Status: Inactive benzonatate 100 mg oral capsule (20 sources) Non-narcotic Antitussive Start: 6 End: 7 take 1 capsule by mouth three times daily as needed Tessalon Perles 100 MG Oral Capsule ; 1 (one) Cap three times daily as needed for cough for 0 days Quantity: 30 {Cap} Refills: 0 Ordered: 28-Apr-2017 MIRIAM Solano Start: 09-Oct-2016 End: 28-Apr-2017 Status: Inactive Comments: Medication taken as needed. swallow whole Comment on above: Medication taken as needed. swallow whole calcium chloride 0.0014 meq/ml / potassium chloride 0.004 meq/ml / sodium chloride 0.103 meq/ml / sodium lactate 0.028 meq/ml injectable solution (2 sources) Start: 5 End: 5 500 mL, Intravenous, ONCE, 1 dose, On Thu01/25/25 at 0800, Fluid Bolus Start: 01-23-2025 End: 01-24-2025 Intravenous, at 100 mL/hr, C ONTINUOUS, Starting on Thu01/23/25 at 1130, Until Thu01/24/25 at 0737, Post-op/Post-Proc cephalexin 500 mg oral capsule (10 sources) Cephalosporin Antibacterial Start: 05-15-2025 End: 05-30-2025 take 1 capsule by mouth three times daily Cephalexin 500 mg capsule Discontinued 500 mg PO THREE TIMES A DAY 15 0 May 14, 2025 11:00pm May 30, 2025 7:45am start on 05/16/25 ciprofloxacin 500 mg oral tablet (20 sources) [...] 5,000 Units, Subcutaneous, ONCE, 1 dose, On Thu01/23/25 at 0600, Pre op Nurse: Hold for [...] 01/28/2025 01/28/2025 Discontinued (Stop Taking at Discharge) hydroCHLOROthiazide 25 mg / lisinopril 20 mg oral tablet (20 sources) Thiazide Diuretic, Angiotensin Converting Enzyme Inhibitor Start: 06-27-2024 End: 05-22-2025 lisinopriL 20 mg-hydrochlorothiazid e 25 mg tablet ; 1 (one) Tablet daily for 0 days Quantity: 90 {Tablet} Refills: 1 Ordered: 22-May-2025 Lizette Kuo Start: 24-Feb-2025 End: 22-May-2025 Status: Inactive Start: 02-05-2024 lisinopriL 20 mg-hydrochlorothiazide 25 mg tablet ; 1 (one) Tablet daily for 0 days Quantity: 90 {Tablet} Refills: 1 Ordered: 05-Feb-2024 JOELLE Chow Start: 05-Feb-2024 Start: 01-20-2024 lisinopriL 20 mg-hydrochlorothiazide 25 mg tablet ; 1 (one) Tablet daily for 0 days Quantity: 30 {Tablet} Refills: 0 Ordered: 20-Jan-2024 JOELLE Chow Start: 20-Jan-2024 Start: 03-18-2021 End: 05-15-2025 Lisinopril-Hydrochlorothiazi de 20-25 mg Tablet Discontinued 1 {tbl} PO DAILY March 17, 2021 11:00pm May 15, 2025 3:36pm iohexol (OMNIPAQUE) 350 MG/ML injection 1-171 mL (1 source) Start: 12-31-2024 End: 12-31-2024 1-171 mL, Intravenous, ONCE, 1 dose, On 12/31/24 at 0815, Extravasation Risk, CT Procedure labetalol hydrochloride 5 mg/ml injectable solution (1 source) beta-Adrenergic Leonardo Start: 01-25-2025 End: 01-28-2025 take 10 mg intravenously every six hours as needed 10 mg, Intravenous, EVERY 6 HOURS NEEDED, Starting on 01/25/25 at 2031, Until 01/28/25 at 1438, SBP > 160 mmHg with HR >60 bpm, Administration duration: up to 20 mg over 2 minutes. Telemetry required except for MEDICAL DEVICE patients on [address] 6 and 7. For vials: labetalol should be treated as a SINGLE USE VIAL. Discard remaining contents after one use. lidocaine 25 mg/ml / prilocaine 25 mg/ml topical cream (18 sources) Antiarrhythmic, Amide Local Anesthetic Start: 03-15-2025 End: 05-13-2025 Lidocaine-Prilocai ne 2.5-2.5 % cream Discontinued 1 NMA TOPICAL ONCE as needed for port access 30 30 2 March 14, 2025 11:00pm May 13, 2025 11:37am Malignant neoplasm of colon Malignant neoplasm of ascending colon lisinopril 20 mg oral tablet (2 sources) [...] 01/24/2025 Discontinued (Stop Taking at Discharge) nystatin [id number] unt/ml topical cream (20 sources) Polyene Antifungal Start: 06-15-2019 End: 01-29-2023 Nystatin [id number] UNIT/GM External Cream ; 1 (one) Application [...] in half and each half swallowed separately. prochlorperazine 10 mg oral tablet (19 sources) Phenothiazine Start: 03-15-2025 End: 05-13-2025 take 1 tablet by mouth every six hours as needed for nausea and vomiting Prochlorperazine Maleate 10 mg tablet Discontinued 10 mg PO EVERY 6 HOURS as needed for nausea and vomiting March 14, 2025 11:00pm May 13, 2025 11:36am Chemotherapy-induced nausea and vomiting Malignant neoplasm of [...] rate of 5mg/min. Maximum of 40mg/day., Recovery Prochlorperazine (COMPAZINE) injection 10 mg (1 source) [...] Until 12/31/24 at 0853, Flush, MR Procedure Turmeric extract (20 sources) Start: 03-06-2025 End: 05-13-2025 take 1 capsule by mouth once daily Turmeric 400 mg capsule Discontinued 400 mg PO DAILY March 05, 2025 11:00pm May 13, 2025 11:37am Start: 03-06-2025 End: 05-13-2025 take 1 capsule by mouth once daily Turmeric 400 mg capsule Discontinued 400 mg PO DAILY March 06, 2025 12:00am May 13, 2025 12:37pm Start: 03-06-2025 take 1 capsule by mo [facility] once daily Turmeric 400 mg capsule Active [...] MG capsule Take by mouth. Active Turmeric Problems Active Problems Problem Classification Problem Date Documented Da te Episodic/Chronic Acute bronchitis (20 sources) Acute bronchitis; Translations: [Acute bronchitis, unspecified] 10-09-2016 Episodic Asthma (6 sources) Asthma; Translations: [Unspecified asthma, uncomplicated] 06-23-2025 Chronic Comment on above: IN THE PAST/NO INHAL ERS. 20 YRS AGO Cancer of colon (20 sources) Malignant tumor of ascending colon; Translations: [Malignant neoplasm of ascending colon] Onset: 11-17-2024 12-10-2024 Chronic Cardiac dysrhythmias (20 sources) Cardiac arrhythmia; Translations: [Cardiac arrhythmia, unspecified] Onset: 07-26-2025 06-27-2024 Chronic Chronic obstructive pulmonary disease and bronchiectasis (20 sources) Bronchitis; Translations: [Bronchitis, not specified as acute or chronic] 04-22-2018 Episodic Conditions associated with dizziness or vertigo (20 sources) Dizziness; Translations: [Dizziness and giddiness] Onset: 07-26-2025 11-09-2017 Episodic Deficiency and other anemia (20 sources) Anemia; Translations: [Anemia, unspecified] 04-18-2025 Episodic Deficiency and other anemia (1 source) Anemia, unspecified; Translations: [Anemia, unspecified] Onset: 09-05-2025 Episodic Diseases of white blood cells (20 sources) Leukopenia; Translations: [Decreased white blood cell count, unspecified] 05-13-2025 Chronic Disorders of lipid metabolism (20 sources) Hyperlipidemia; Translations: [Hyperlipidemia, unspecified] Onset: 01-10-2025 11-23-2023 Chronic Comment on above: borderline Essential hypertension (20 sources) Hypertensive disorder; Translations: [Essential (primary) hypertension] Onset: 01-10-2025 11-23-2023 Chronic Comment on above: controlled with med Fluid and electrolyte disorders (20 sources) Acute hypokalemia; Translations: [Hypokalemia] 05-13-2025 Episodic Immunizations and screening for infectious disease (20 sources) Needs influenza immunization; Translations: [Encounter for immunization] 10-03-2015 Episodic Maintenance chemotherapy; radiotherapy (20 sources) Patient encounter status; Translations: [Encounter for antineoplastic chemotherapy] Onset: 06-27-2025 03-21-2025 Chronic Mycoses (20 sources) Candidal intertrigo; Translations: [Candidiasis of skin and nail] 01-02-2020 Episodic Nutritional deficiencies (20 sources) Vitamin D deficiency; Translations: [Vitamin D deficiency, unspecified] 11-23-2023 Chronic Osteoarthritis (20 sources) Arthritis; Translations: [Unspecified osteoarthritis, unspecified site] 11-23-2023 Chronic Other connective tissue disease (20 sources) Tenosynovitis of left radial styloid; Translations: [Radial styloid tenosynovitis [de Quervain]] 01-23-2022 Episodic Other ear and sense organ disorders (6 sources) Hearing loss; Translations: [Unspecified hearing loss, unspecified ear] 06-23-2025 Chronic Other gastrointestinal disorders (20 sources) Diarrhea due to drug; Translations: [Toxic gastroenteritis and colitis] 04-04-2025 Episodic Other gastrointestinal disorders (1 source) Toxic gastroenteritis and colitis; Translations: [Toxic gastroenteritis and colitis] Onset: 09-05-2025 Episodic Other injuries and conditions due to external causes (20 sources) Closed injury of head; Translations: [Unspecified injury of head, initial encounter] 05-13-2025 Episodic Other liver diseases (20 sources) Elevated [...] nonspecific abnormal finding of lung field] Onset: 09-05-2025 Episodic Other nervous system disorders (18 sources) H/O: Meniere's disease; Translations: [Personal history [...] nutritional; endocrine; and metabolic disorders (20 sources) Obesity; Translations: [Obesity, unspecified] 07-27-2023 Chronic [...] diagnostic imaging of central nervous system] Onset: 01-10-2025 01-23-2022 Episodic Other upper respiratory infections (20 sources) Sinusitis; Translations: [Chronic sinusitis, unspecified] 05-03-2020 Chronic Residual codes; unclassified (20 sources) Obstructive sleep apnea syndrome; Translations: [Obstructive sleep apnea (adult) (pediatric)] 11-23-2023 Chronic Residual codes; unclassified (20 sources) Postmenopausal state; Translations: [Asymptomatic menopausal state] 11-23-2023 Episodic Residual codes; unclassified (20 sources) History of antineoplastic chemotherapy; Translations: [Personal history of antineoplastic chemotherapy] 05-13-2025 Episodic Secondary malignancies (20 sources) Regional lymph node metastasis present ; Translations: [Secondary and unspecified malignant neoplasm of lymph node, unspecified] 03-09-2025 Chronic Secondary malignancies (1 source) Secondary and unspecified malignant neoplasm of lymph node, unspecified; Translations: [Secondary and unspecified malignant neoplasm of lymph node, unspecified] Onset: 09-05-2025 Chronic Spondylosis; intervertebral disc disorders; other back problems (18 sources) Backache; Translations: [Dorsalgia, unspecified] 03-09-2025 Episodic Comment on above: bone spurs Syncope (20 sources) Syncope and collapse; Translations: [Syncope and collapse] Onset: 05-19-2025 05-13-2025 Episodic Unclassified (20 sources) Number of Children 07-27-2023 [...] disease has no overall impact. Note for "Multiple chronic conditions follow-up": Hasn't been checking BP at home and [...] disease has no overall impact. Note for "Multiple chronic conditions follow-up": Feeling well with no complaints. 08-01-2022 Unclassified [...] disease has no overall impact. Note for "Chronic condition follow-up": Weight is down 16 pounds. 01-23-2022 Unclassified [...] disease has no overall impact. Note for "Multiple chronic conditions follow-up": Pt need refills on both bp meds.Just started weight loss plan this week - said it was a "rough winter." 01-09-2021 Unclassified (20 sources) MCR Well Adult [...] they do not have headaches. Note for "Multiple chronic conditions follow-up": She said that her back was bothering [...] patient does not have Healthcare Power of Shared Services And Outsourcing Manager or Living Will. 06-16-2019 Unclassified (20 sources) [...] they do not have headaches. Note for "Multiple chronic conditions follow-up": Last office visit 11/04/2018. No CPAP.For 2-3 [...] they do not have headaches. Note for "Multiple chronic conditions follow-up": Does not have CPAP machine - never [...] patient does not have Healthcare Power of Shared Services And Outsourcing Manager or Living Will. 11-09-2017 Unclassified (20 sources) [ADDITIONAL REASON] Follow up from hospital stay - [facility]. Date of Admission: 10/25/2017. Date of Discharge: 10/26/2017. The patient was hospitalized for dizziness. New medications include aspirin , meclizene (and amoxicillin). Post hospital therapies ordered include none (After CT of brain - she needs MRI per hospital, ECHO, carotid doppler and sleep study). Patient was discharged to home. Note for Follow up from hospital stay": Labs, chest x-ray, EKG, and head CT [...] have headaches. Note for Multiple chronic conditions follow-up": Her fall that occurred was when she [...] have headaches. Note for Multiple chronic conditions follow-up": Weight is down 3 pounds in the [...] have headaches. Note for Multiple chronic conditions follow-up": 10/2014: cmp,lipidOccasional feet/ankle swelling. 04-04-2015 Unclassified (20 [...] they do not have headaches. Note for "Chronic condition follow-up": Had colonoscopy done 06/2014 - normal. Still [...] they do not have headaches. Note for "Multiple chronic conditions follow-up": She said that her back was bothering [...] self breast exam. 06-18-2020 Unclassified (20 sources) Follow up for multiple [...] they do not have headaches. Note for "Multiple chronic conditions follow-up": Last office visit 11/04/2018. No CPAP.For 2-3 days has had red rash under both breasts. 06-16-2019 Unclassified (20 sources) [ADDITIONAL REASON] MCR Well [...] patient does not have Healthcare Power of Shared Services And Outsourcing Manager or Living Will. 06-16-2019 Unclassified (20 sources) Transition into care - The patient [...] patient does not have Healthcare Power of Shared Services And Outsourcing Manager or Living Will. 11-09-2017 Unclassified (20 sources) [...] disease has no overall impact. Note for "Multiple chronic conditions follow-up": Patient states she feels well today, only minor complaint of leg stiffness. She states this is normal for her. 02-05-2024 Unclassified (3 sources) Follow up from hospital stay - [facility]. Date of Admission: 10/25/2017. Date of Discharge: 10/26/2017. The patient was hospitalized for dizziness. New medications include aspirin , meclizene (and amoxicillin). Post hospital therapies ordered include none (After CT of brain - she needs MRI per hospital, ECHO, carotid doppler and sleep study). Patient was discharged to home. Note for Follow up from hospital stay": Labs, chest x-ray, EKG, and head CT were done. Head CT showed calcification of parietal complex.BP has been running 140s-170s/60s-70s. Has been doing good taking her meds regularly since hospital stay. 11-09-2017 Unclassified (20 sources) Follow up from hospital stay - Name of Hospital: [facility]. Date of Admission: 01/23/25. Date of Discharge: 01/28/25. The patient was hospitalized for surgery (right hemicolectomy w/ intracorporeal anastomosis). No new medications were prescribed. Consultations ordered while in the hospital include surgery (Follow on 02/21/25). Post hospital therapies ordered include none (discussing at surgery follow up). Patient was discharged to home. Current Symptoms: bloating. Note for Follow up from hospital stay": Tylenol, ibuprofen and gabapentin. Has narcotic if has extreme pain but hasn't had to take that. Pain is 2-3/10.Having BMs - watery, pebble size BMs and passing gas. Some fecal incontinence when passing gas.She spoke to surgeon's office regarding the bloating and they weren't concerned. Don't want her taking stool softeners. Walking helps. 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 Please call and schedule follow up appointment. Past or Other Problems Problem Classification Problem Date Documented Date Episodic/Chronic Administrative/socia l admission (20 sources) Patient encounter status; Translations: [Counseling, unspecified] Onset: 03-15-2025 03-15-2025 Episodic E Codes: Adverse effects of medical drugs (1 source) Adverse effect of antineoplastic and immunosuppressive drugs, initial encounter; Translations: [Adverse effect of antineoplastic and immunosuppressive drugs, initial encounter] Onset: 03-15-2025 Episodic Mood disorders (8 sources) Mood disorders Onset: 12-06-2024 Resolved: 02-21-2025 12-06-2024 Nausea and vomiting (1 source) Nausea with vomiting, unspecified; Translations: [Nausea with vomiting, unspecified] Onset: 03-15-2025 Episodic Residual codes; unclassified (2 sources) Other specified health status; Translations: [Other specified health status] Onset: 01-16-2025 Episodic Unclassified (20 sources) Pre-operative clearance - Surgical procedure(s) planned: other (total right knee replacement). Date of procedure: (12/21/2023) Surgeon: (Dr Kalpesh Boles) and Location of procedure: ([facility]) There have been no problems with general anesthesia or blood/blood products. Note for Pre-operative clearance": Pt has an appt with Dr Kalpesh [...] patient does not have Healthcare Power of Shared Services And Outsourcing Manager or Living Will. Note for "MCR Well Adult": Feeling well with no complaints. 07-27-2023 Unclassified [...] sinusitis, recurrent strep pharyngitis, asthma (possible- Dr Reynolds said she thought she did), tonsillectomy or [...] triglycerides or peripheral vascular disease. Note for "Leg pain": Iced it which took the swelling away [...] visit with no current symptoms. Note for "Diagnostic procedure results follow-up": Last episode of vertigo was on Thursday [...] an upper respiratory infection (cold symptoms around thanksgiving). Patient denies history of seasonal allergies, asthma or tonsillectomy. Note for Upper respiratory infection": Patient applied Vicks vapor rub to upper [...] sleeps 8 hours per night. Note for "Well adult female": Pt has no complaints. 10-03-2015 Unclassified (20 [...] no fever or post-nasal drip. Note for "Cough": Dry at times while other times will [...] Aggravating factors include physical activity. Note for "Wrist pain": Pt also has high bp. She was [...] had a colonoscopy. Had labs done through [facility] outreach screening but never received the [...] patient does not have Healthcare Power of Shared Services And Outsourcing Manager or Living Will. Note for "MCR Well Adult": Doing TOPS for weight loss - cut out all sweets but ice cream. 06-27-2024 Unclassified (1 source) Patient encounter status 01-11-2025 Unclassified (20 sources) MCR Well Adult - [...] patient does not have Healthcare Power of Shared Services And Outsourcing Manager or Living Will. Note for "MCR Well Adult": Has spoken with bundler and is in process.Started chemo - has had one treatment so far. Every other week x 12 sessions. 03-24-2025 Unclassified (1 source) Follow up from hospital stay - Name of Hospital: [facility]. Date of Admission: 05/13/2025. Date of Discharge: 05/13/2025. The patient was hospitalized for diarrhea, decreased appetite, dizziness/syncope. (Patient fell on 05/12/2025 when she passed out and hit her head on the ground.). New medications include zofran, dicyclomine, keflex(finished course), losartan and Medications discontinued include lisinopril-hydrochlorot hiazide 20mg. Consultations ordered while in the hospital include Follow up with PA and oncology. Patient was discharged to home. Note for Follow up from hospital stay": ER work up showed new onset of atrial flutter and CT of brain was abnormal. patient reports her only current symptoms are diarrhea. Patient states this has been an ongoing side effect from her chemotherapy. Patient also just finished her oral antibiotics she was prescribed in the hospital 05-22-2025 Unclassified (8 sources) [ADDITIONAL REASON] Transition into care - The patient is transitioning into care from an emergency room and a summary of care was reviewed. 05-22-2025 Unclassified (7 sources) Follow up from hospital stay - Name of Hospital: [facility]. Date of Admission: 05/13/2025. Date of Discharge: 05/13/2025. The patient was hospitalized for diarrhea, decreased appetite, dizziness/syncope. (Patient fell on 05/12/2025 when she passed out and hit her head on the ground.). New medications include zofran, dicyclomine, keflex(finished course), losartan and Medications discontinued include lisinopril-hydrochlorot hiazide 20mg. Consultations ordered while in the hospital include Follow up with PA and oncology. Patient was discharged to home. Note for Follow up from hospital stay": ER work up showed new onset of atrial flutter and CT of brain was abnormal (questionable met but MRI WNL). Also noted to have UTI. Patient reports her only current symptom is diarrhea which is improving. Patient states this has been an ongoing side effect from her chemotherapy. Patient also just finished her oral antibiotics she was prescribed in the hospital. 05-23-2025 Unclassified (3 sources) Transition into care - The patient is transitioning into care from an emergency room and a summary of care was reviewed. 05-23-2025 Unclassified (3 sources) [ADDITIONAL REASON] Follow up from hospital stay - Name of Hospital: [facility]. Date of Admission: 05/13/2025. Date of Discharge: 05/13/2025. The patient was hospitalized for diarrhea, decreased appetite, dizziness/syncope. (Patient fell on 05/12/2025 when she passed out and hit her head on the ground.). New medications include zofran, dicyclomine, keflex(finished course), losartan and Medications discontinued include lisinopril-hydrochlorot hiazide 20mg. Consultations ordered while in the hospital include Follow up with PA and oncology. Patient was discharged to home. Note for Follow up from hospital stay": ER work up showed new onset of atrial flutter and CT of brain was abnormal (questionable met but MRI WNL). Also noted to have UTI. Patient reports her only current symptom is diarrhea which is improving. Patient states this has been an ongoing side effect from her chemotherapy. Patient also just finished her oral antibiotics she was prescribed in the hospital. 05-23-2025 Urinary tract infections (20 sources) Acute urinary tract infection; Translations: [Urinary tract infection, site not specified] Onset: 05-18-2025 10-04-2018 Episodic Results Test Name Value Interpretation Reference Range Facility Absolute lymphocyte countOrd ered By: [place] on 09-05-2025 Lymphocytes Auto (Unsp spec) [#/Vol] 1.02 10*3/uL 0.83-4.51 [facility] Absolute neutrophil countOrd ered By: [place] on 09-05-2025 Neutrophils (Bld) [#/Vol] 3.0 10*3/uL 2.0-7.7 [facility] Anion gap in Serum or Plasma Ordered By: [place] on 09-05-2025 Anion gap [Moles/Vol] 9 mmol/L 5-15 [facility] Automated lymphocyte count a s percentage of total leukocytesOrdered By: [place] on 09-05-2025 Lymphocytes/100 WBC Auto (Unsp spec) 20.2 % 19-41 [facility] BUN/creatinine ratioOrdered By: [place] on 09-05-2025 Urea nitrogen/Creatinine [Mass ratio] 19.4 mg/mg 10-20 [facility] Basophil percentageOrdered B y: [place] on 09-05-2025 Basophils/100 WBC (Bld) 0.8 % 0-1 [facility] Bilirubin, totalOrdered By: [place] on 09-05-2025 Bilirubin [Mass/Vol] 0.28 mg/dL 0.00-1.30 [facility] CBC W/Diff, Automatedon Absolute Lymph 1.02 X10 3/uL Normal 0.83-4.51 [facility] Comment on above: Performed By: #### L 100.0100, L500.4050, L501.5200 ####[facility] [address] [place], [address] Absolute Neut 3.0 X10 3/uL Normal 2.0-7.7 [facility] Comment on above: Performed By: #### L 100.0100, L500.4050, L501.5200 ####[facility] [address] [place], [address] Basophils/100 WBC (Bld) 0.8 % Normal 0-1 [facility] Comment on above: Performed By: #### L 100.0100, L500.4050, [id number] ####[facility] [address] [place], [address] Eosinophils/100 WBC (Bld) 6.7 % High 0-5 [facility] Comment on above: Performed By: #### L 100.0100, L500.4050, [id number] ####[facility] [address] [place], [address] Erythrocyte distribution width (RBC) [Ratio] 13.6 % Normal 11.6-14.6 [facility] Comment on above: Performed By: #### L 100.0100, L500.4050, L501.5200 ####[facility] [address] [place], [address] Hematocrit (Bld) [Volume fraction] 36.8 % Low 37-47 [facility] Comment on above: Performed By: #### L 100.0100, L500.4050, [id number] ####[facility] [address] [place], [address] Hemoglobin (Bld) [Mass/Vol] 12.2 g/dL Normal 12.0-15.0 [facility] Comment on above: Performed By: #### L 100.0100, L500.4050, L501.5200 ####[facility] [address] [place], [address] IG% 0.400 Normal 0.0-0.9 [facility] Comment on above: Result Comment: IG% - Immature Granulocytes (promyelocytes, myelocytes andmetamyelocytes) > 1% indicates that a LEFT SHIFT is Present. Performed By: #### L 100.0100, L500.4050, L501.5200 ####[facility] [address] [place], [address] Lymphocytes/100 WBC (Bld) 20.2 % Normal 19-41 [facility] Comment on above: Performed By: #### L 100.0100, L500.4050, L501.5200 ####[facility] [address] [place], [address] MCH (RBC) [Entitic mass] 32.6 pg High 27.0-32.0 [facility] Comment on above: Performed By: #### L 100.0100, L500.4050, L501.5200 ####[facility] [address] [place], [address] MCHC (RBC) [Mass/Vol] 33.2 g/dL Normal 32-36 [facility] Comment on above: Performed By: #### L 100.0100, L500.4050, L501.5200 ####[facility] [address] [place], [address] MCV (RBC) [Entitic vol] 98.4 fL Normal 81-99 [facility] Comment on above: Performed By: #### L 100.0100, L500.4050, L501.5200 ####[facility] [address] [place], [address] Monocytes/100 WBC (Bld) 12.1 % High 0-10 [facility] Comment on above: Performed By: #### L 100.0100, L500.4050, L501.5200 ####[facility] [address] [place], [address] Neutrophils/100 WBC (Bld) 59.8 % Normal 47-70 [facility] Comment on above: Performed By: #### L 100.0100, L500.4050, L501.5200 ####[facility] [address] [place], [address] Nucleated RBC (Bld) [#/Vol] 0 10*3/uL Normal 0-5 [facility] Comment on above: Performed By: #### L 100.0100, L500.4050, L501.5200 ####[facility] [address] [place], [address] Platelet mean volume (Bld) [Entitic vol] 9.2 fL Normal 6.2-12.0 [facility] Comment on above: Performed By: #### L 100.0100, L500.4050, L501.5200 ####[facility] [address] [place], [address] Platelets (Bld) [#/Vol] 226 10*3/uL Normal 150-450 [facility] Comment on above: Performed By: #### L 100.0100, L500.4050, L501.5200 ####[facility] [address] [place], [address] RBC (Bld) [#/Vol] 3.74 10*6/uL Low 4.2-5.4 [facility] Comment on above: Performed By: #### L 100.0100, L500.4050, L501.5200 ####[facility] [address] [place], [address] RDW SD 49.2 fl High 35.1-43.9 [facility] Comment on above: Performed By: #### L 100.0100, L500.4050, L501.5200 ####[facility] [address] [place], [address] WBC (Bld) [#/Vol] 5.1 10*3/uL Normal 4.4-11.0 [facility] Comment on above: Performed By: #### L 100.0100, L500.4050, L501.5200 ####[facility] [address] [place], [address] Carbon dioxide, total [Moles /volume] in Central venous bloodOrdered By: [place] on 09-05-2025 CO2 [Moles/Vol] 25.2 mmol/L 21.0-32.0 [facility] Chloride assayOrdered By: [place] on 09-05-2025 Chloride [Moles/Vol] 104 mmol/L 98-108 [facility] Comprehensive Metabolic Prof chadwick 09-05-2025 Albumin [Mass/Vol] 3.6 g/dL Normal 3.4-4.8 [facility] Comment on above: Performed By: #### L 100.0100, L500.4050, L501.5200 ####[facility] [address] [place], [address] Albumin/Globulin [Mass ratio] 1.1 {ratio} Normal 0.9-2.4 [facility] Comment on above: Performed By: #### L 100.0100, L500.4050, L501.5200 ####[facility] [address] [place], [address] ALK PHOS 71 U/L Normal 35-104 [facility] Comment on above: Performed By: #### L 100.0100, L500.4050, L501.5200 ####[facility] [address] [place], [address] ALT [Catalytic activity/Vol] 23 U/L Normal <=34 [facility] Comment on above: Performed By: #### L 100.0100, L500.4050, L501.5200 ####[facility] [address] [place], [address] AST [Catalytic activity/Vol] 29 U/L Normal <=31 [facility] Comment on above: Performed By: #### L 100.0100, L500.4050, L501.5200 ####[facility] [address] [place], [address] Bilirubin [Mass/Vol] 0.28 mg/dL Normal 0.00-1.30 [facility] Comment on above: Performed By: #### L 100.0100, L500.4050, L501.5200 ####[facility] [address] [place], [address] BUN/CRE 19.4 RATIO Normal 10-20 [facility] Comment on above: Performed By: #### L 100.0100, L500.4050, L501.5200 ####[facility] [address] [place], [address] Calcium [Mass/Vol] 9.1 mg/dL Normal 7.6-11.0 [facility] Comment on above: Performed By: #### L 100.0100, L500.4050, L501.5200 ####[facility] [address] [place], [address] Chloride [Moles/Vol] 104 mmol/L Normal 98-108 [facility] Comment on above: Performed By: #### L 100.0100, L500.4050, L501.5200 ####[facility] [address] [place], [address] CO2 [Moles/Vol] 25.2 mmol/L Normal 21.0-32.0 [facility] Comment on above: Performed By: #### L 100.0100, L500.4050, L501.5200 ####[facility] [address] [place], [address] Creatinine [Mass/Vol] 0.64 mg/dL Low 0.70-1.20 [facility] Comment on above: Performed By: #### L 100.0100, L500.4050, L501.5200 ####[facility] [address] [place], [address] ECRCL 58.70 ml/min Normal 50-250 [facility] Comment on above: Performed By: #### L 100.0100, L500.4050, L501.5200 ####[facility] [address] [place], [address] GAP 9 Normal 5-15 [facility] Comment on above: Performed By: #### L 100.0100, L500.4050, L501.5200 ####[facility] [address] [place], [address] GFR/1.73 sq M.predicted among non-blacks MDRD (S/P/Bld) [Vol rate/Area] 92 mL/min/{1.73_m2} Normal >60 [facility] Comment on above: Result Comment: mL/m in/1.73m2 CKD-EPI Creatinine Equation (2020) Performed By: #### L 100.0100, L500.4050, L501.5200 ####[facility] [address] [place], [address] Globulin (S) [Mass/Vol] 3.3 g/dL Normal 2.2-4.2 [facility] Comment on above: Performed By: #### L 100.0100, L500.4050, L501.5200 ####[facility] [address] [place], [address] Glucose [Mass/Vol] 106 mg/dL High 70-99 [facility] Comment on above: Performed By: #### L 100.0100, L500.4050, L501.5200 ####[facility] [address] [place], [address] Potassium [Moles/Vol] 4.0 mmol/L Normal 3.3-5.1 [facility] Comment on above: Performed By: #### L 100.0100, L500.4050, L501.5200 ####[facility] [address] [place], [address] Sodium [Moles/Vol] 138 mmol/L Normal 133-145 [facility] Comment on above: Performed By: #### L 100.0100, L500.4050, L501.5200 ####[facility] [address] [place], [address] T PROT 6.9 g/dL Normal 5.9-8.4 [facility] Comment on above: Performed By: #### L 100.0100, L500.4050, L501.5200 ####[facility] [address] [place], [address] Urea nitrogen [Mass/Vol] 12 mg/dL Normal 4-19 [facility] Comment on above: Performed By: #### L 100.0100, L500.4050, L501.5200 ####[facility] [address] [place], [address] Eosinophil percentageOrdered By: [place] on 09-05-2025 Eosinophils/100 WBC (Bld) 6.7 % High 0-5 [facility] Erythrocyte distribution wid th ratioOrdered By: [facility] on 09-05-2025 Erythrocyte distribution width (RBC) [Ratio] 13.6 % 11.6-14.6 [facility] Erythrocyte distribution wid th standard deviationOrdered By: [facility] on 09-05-2025 Erythrocyte distribution width (RBC) [Ratio] 49.2 fl High 35.1-43.9 [facility] Glomerular filtration rate ( GFR) estimation/1.73 sq m using serum, plasma, or whole bOrdered By: [place] on 09-05-2025 GFR/1.73 sq M.predicted among non-blacks MDRD (S/P/Bld) [Vol rate/Area] 92 mL/min/{1.73_m2} >60 [facility] Comment on above: mL/min/1.73m2 CKD-EP I Creatinine Equation (2020) Hematocrit Auto (Bld) [Volum e fraction]Ordered By: [place] on 09-05-2025 Hematocrit (Bld) [Volume fraction] 36.8 % Low 37-47 [facility] Hemoglobin measurementOrdere d By: [place] on 09-05-2025 Hemoglobin (Bld) [Mass/Vol] 12.2 g/dL 12.0-15.0 [facility] Immature granulocytes/100 WB C Auto (Bld)Ordered By: [place] on 09-05-2025 Immature granulocytes/100 WBC (Bld) 0.400 % 0.0-0.9 [facility] Comment on above: IG% - Immature Granu locytes (promyelocytes, myelocytes and metamyelocytes) > 1% indicates that a LEFT SHIFT is Present. Laboratory - Chemistry and C hemistry - challengeOrdered By: [place] on 09-05-2025 AST [Catalytic activity/Vol] 29 U/L <32 [facility] MCV (mean corpuscular volume ) determinationOrdered By: [facility] on 09-05-2025 MCV (RBC) [Entitic vol] 98.4 fL 81-99 [facility] Magnesiumon 09-05-2025 Magnesium [Mass/Vol] 2.1 mg/dL Normal 1.5-2.2 [facility] Comment on above: Performed By: #### L 100.0100, L500.4050, L501.5200 ####[facility] [address] [place], [address] Magnesium measurement (mass/ volume)Ordered By: [place] on 09-05-2025 Magnesium (Unsp spec) [Mass/Vol] 2.1 mg/dL 1.5-2.2 [facility] Mean corpuscular hemoglobin (MCH) determinationOrdered By: [place] on 09-05-2025 MCH (RBC) [Entitic mass] 32.6 pg High 27.0-32.0 [facility] Mean corpuscular hemoglobin concentration (MCHC) determinationOrdered By: [place] on 09-05-2025 MCHC (RBC) [Mass/Vol] 33.2 g/dL 32-36 [facility] Mean platelet volume determi nationOrdered By: [place] on 09-05-2025 Platelet mean volume (Bld) [Entitic vol] 9.2 fL 6.2-12.0 [facility] Monocyte percentageOrdered B y: [place] on 09-05-2025 Monocytes/100 WBC (Bld) 12.1 % High 0-10 [facility] Neutrophil percentageOrdered By: [place] on 09-05-2025 Neutrophils/100 WBC (Bld) 59.8 % 47-70 [facility] Nucleated red blood cell per centageOrdered By: [place] on 09-05-2025 Nucleated RBC/100 WBC (Bld) [Ratio] 0 % 0-5 [facility] Oncology Visit Reporton 0 Oncology Visit Report Normal [facility] Phosphoruson 09-05-2025 Phosphate [Mass/Vol] 3.5 mg/dL Normal 2.7-4.5 [facility] Comment on above: Performed By: #### L 501.2300 ####[facility] [address] [place], [address] Platelet countOrdered By: Ru Conn on 09-05-2025 Platelets (Bld) [#/Vol] 226 10*3/uL 150-450 [facility] Potassium measurement (mass/ volume)Ordered By: [place] on 09-05-2025 Potassium (Unsp spec) [Mass/Vol] 4.0 mmol/L 3.3-5.1 [facility] RBC Auto (Bld) [#/Vol]Ordere d By: [place] on 09-05-2025 RBC (Bld) [#/Vol] 3.74 10*6/uL Low 4.2-5.4 [facility] Serum creatinine measurement (mass/volume)Ordered By: [place] on 09-05-2025 Creatinine [Mass/Vol] 0.64 mg/dL Low 0.70-1.20 [facility] Serum globulin measurementOr dered By: [place] on 09-05-2025 Globulin (S) [Mass/Vol] 3.3 g/dL 2.2-4.2 [facility] Serum glucose measurement (m ass/volume)Ordered By: [place] on 09-05-2025 Glucose [Mass/Vol] 106 mg/dL High 70-99 [facility] Serum or plasma alanine rojo otransferase (ALT) measurementOrdered By: [place] on 09-05-2025 ALT [Catalytic activity/Vol] 23 U/L <35 [facility] Serum or plasma albumin alfredo urement (mass/volume)Ordered By: [place] on 09-05-2025 Albumin [Mass/Vol] 3.6 g/dL 3.4-4.8 [facility] Serum or plasma albumin/glob ulin mass ratioOrdered By: [place] on 09-05-2025 Albumin/Globulin [Mass ratio] 1.1 {ratio} 0.9-2.4 [facility] Serum or plasma alkaline marisabel sphatase measurementOrdered By: [place] on 09-05-2025 ALP [Catalytic activity/Vol] 71 U/L 35-104 [facility] Serum or plasma calcium alfredo urement (mass/volume)Ordered By: Kurtjackie Conn on 09-05-2025 Calcium [Mass/Vol] 9.1 mg/dL 7.6-11.0 [facility] Serum or plasma urea nitroge n measurement (mass/volume)Ordered By: [place] on 09-05-2025 Urea nitrogen [Mass/Vol] 12 mg/dL 4-19 [facility] Sodium levelOrdered By: Kurt mejia Sen[place] on 09-05-2025 Sodium [Moles/Vol] 138 mmol/L 133-145 [facility] Total proteinOrdered By: Shayd Conn on 09-05-2025 Protein [Mass/Vol] 6.9 g/dL 5.9-8.4 [facility] White blood cell (WBC) count Ordered By: Kurtjackie Conn on 09-05-2025 WBC (Bld) [#/Vol] 5.1 10*3/uL 4.4-11.0 [facility] Carcinoembryonic Antigenon 1 CEA 7.9 ng/mL High 0.0-4.7 [facility] Comment on above: Result Comment: Nons mokers <3.9 Smokers <5.6[employer] Electrochemiluminescence Immunoassay(ECLIA)Values obtained with different assay methods or kitscannot be used interchangeably. Results cannot beinterpreted as absolute evidence of the presence orabsence of malignant disease.Performed at: [facility] [employer] [id number] Director: Abimael Sheridan PhD, Phone: [phone] Performed By: #### L 501.2300, L3100.2300 ####[facility] [address] [place], [address] CBC W/Diff, Automatedon 10-2 Absolute Lymph 1.45 X10 3/uL Normal 0.83-4.51 [facility] Comment on above: Performed By: #### L 500.4050, L100.0100, L501.5200 ####[facility] [address] [place], [address] Absolute Neut 2.6 X10 3/uL Normal 2.0-7.7 [facility] Comment on above: Performed By: #### L 500.4050, L100.0100, L501.5200 ####[facility] [address] [place], [address] Basophils/100 WBC (Bld) 1.1 % High 0-1 [facility] Comment on above: Performed By: #### L 500.4050, L100.0100, L501.5200 ####[facility] [address] [place], [address] Eosinophils/100 WBC (Bld) 11.3 % High 0-5 [facility] Comment on above: Performed By: #### L 500.4050, L100.0100, L501.5200 ####[facility] [address] [place], [address] Erythrocyte distribution width (RBC) [Ratio] 14.1 % Normal 11.6-14.6 [facility] Comment on above: Performed By: #### L 500.4050, L100.0100, L501.5200 ####[facility] [address] [place], [address] Hematocrit (Bld) [Volume fraction] 36.9 % Low 37-47 [facility] Comment on above: Performed By: #### L 500.4050, L100.0100, L501.5200 ####[facility] [address] [place], [address] Hemoglobin (Bld) [Mass/Vol] 12.3 g/dL Normal 12.0-15.0 [facility] Comment on above: Performed By: #### L 500.4050, L100.0100, L501.5200 ####[facility] [address] [place], [address] IG% 0.600 Normal 0.0-0.9 [facility] Comment on above: Result Comment: IG% - Immature Granulocytes (promyelocytes, myelocytes andmetamyelocytes) > 1% indicates that a LEFT SHIFT is Present. Performed By: #### L 500.4050, L100.0100, L501.5200 ####[facility] [address] [place], [address] Lymphocytes/100 WBC (Bld) 27.4 % Normal 19-41 [facility] Comment on above: Performed By: #### L 500.4050, L100.0100, L501.5200 ####[facility] [address] [place], [address] MCH (RBC) [Entitic mass] 33.0 pg High 27.0-32.0 [facility] Comment on above: Performed By: #### L 500.4050, L100.0100, L501.5200 ####[facility] [address] [place], [address] MCHC (RBC) [Mass/Vol] 33.3 g/dL Normal 32-36 [facility] Comment on above: Performed By: #### L 500.4050, L100.0100, L501.5200 ####[facility] [address] [place], [address] MCV (RBC) [Entitic vol] 98.9 fL Normal 81-99 [facility] Comment on above: Performed By: #### L 500.4050, L100.0100, L501.5200 ####[facility] [address] [place], [address] Monocytes/100 WBC (Bld) 10.2 % High 0-10 [facility] Comment on above: Performed By: #### L 500.4050, L100.0100, L501.5200 ####[facility] [address] [place], [address] Neutrophils/100 WBC (Bld) 49.4 % Normal 47-70 [facility] Comment on above: Performed By: #### L 500.4050, L100.0100, L501.5200 ####[facility] [address] [place], [address] Nucleated RBC (Bld) [#/Vol] 0 10*3/uL Normal 0-5 [facility] Comment on above: Performed By: #### L 500.4050, L100.0100, L501.5200 ####[facility] [address] [place], [address] Platelet mean volume (Bld) [Entitic vol] 9.0 fL Normal 6.2-12.0 [facility] Comment on above: Performed By: #### L 500.4050, L100.0100, L501.5200 ####[facility] [address] [place], [address] Platelets (Bld) [#/Vol] 223 10*3/uL Normal 150-450 [facility] Comment on above: Performed By: #### L 500.4050, L100.0100, L501.5200 ####[facility] [address] [place], [address] RBC (Bld) [#/Vol] 3.73 10*6/uL Low 4.2-5.4 [facility] Comment on above: Performed By: #### L 500.4050, L100.0100, L501.5200 ####[facility] [address] [place], [address] RDW SD 51.0 fl High 35.1-43.9 [facility] Comment on above: Performed By: #### L 500.4050, L100.0100, L501.5200 ####[facility] [address] [place], [address] WBC (Bld) [#/Vol] 5.3 10*3/uL Normal 4.4-11.0 [facility] Comment on above: Performed By: #### L 500.4050, L100.0100, L501.5200 ####[facility] [address] [place], [address] Comprehensive Metabolic Prof [facility] 08-22-2025 Albumin [Mass/Vol] 3.5 g/dL Normal 3.4-4.8 [facility] Comment on above: Performed By: #### L 500.4050, L100.0100, L501.5200 ####[facility] [address] [place], [address] Albumin/Globulin [Mass ratio] 1.0 {ratio} Normal 0.9-2.4 [facility] Comment on above: Performed By: #### L 500.4050, L100.0100, L501.5200 ####[facility] [address] [place], [address] ALK PHOS 74 U/L Normal 35-104 [facility] Comment on above: Performed By: #### L 500.4050, L100.0100, L501.5200 ####[facility] [address] [place], [address] ALT [Catalytic activity/Vol] 23 U/L Normal <=34 [facility] Comment on above: Performed By: #### L 500.4050, L100.0100, L501.5200 ####[facility] [address] [place], [address] AST [Catalytic activity/Vol] 27 U/L Normal <=31 [facility] Comment on above: Performed By: #### L 500.4050, L100.0100, L501.5200 ####[facility] [address] [place], [address] Bilirubin [Mass/Vol] 0.24 mg/dL Normal 0.00-1.30 [facility] Comment on above: Performed By: #### L 500.4050, L100.0100, L501.5200 ####[facility] [address] [place], [address] BUN/CRE 21.9 RATIO High 10-20 [facility] Comment on above: Performed By: #### L 500.4050, L100.0100, L501.5200 ####[facility] [address] [place], [address] Calcium [Mass/Vol] 9.3 mg/dL Normal 7.6-11.0 [facility] Comment on above: Performed By: #### L 500.4050, L100.0100, L501.5200 ####[facility] [address] [place], [address] Chloride [Moles/Vol] 103 mmol/L Normal 98-108 [facility] Comment on above: Performed By: #### L 500.4050, L100.0100, L501.5200 ####[facility] [address] [place], [address] CO2 [Moles/Vol] 25.3 mmol/L Normal 21.0-32.0 [facility] Comment on above: Performed By: #### L 500.4050, L100.0100, L501.5200 ####[facility] [address] [place], [address] Creatinine [Mass/Vol] 0.70 mg/dL Normal 0.70-1.20 [facility] Comment on above: Performed By: #### L 500.4050, L100.0100, L501.5200 ####[facility] [address] [place], [address] ECRCL 58.34 ml/min Normal 50-250 [facility] Comment on above: Performed By: #### L 500.4050, L100.0100, L501.5200 ####[facility] [address] [place], [address] GAP 10 Normal 5-15 [facility] Comment on above: Performed By: #### L 500.4050, L100.0100, L501.5200 ####[facility] [address] [place], [address] GFR/1.73 sq M.predicted among non-blacks MDRD (S/P/Bld) [Vol rate/Area] 89 mL/min/{1.73_m2} Normal >60 [facility] Comment on above: Result Comment: mL/m in/1.73m2 CKD-EPI Creatinine Equation (2020) Performed By: #### L 500.4050, L100.0100, L501.5200 ####[facility] [address] [place], [address] Globulin (S) [Mass/Vol] 3.4 g/dL Normal 2.2-4.2 [facility] Comment on above: Performed By: #### L 500.4050, L100.0100, L501.5200 ####[facility] [address] [place], [address] Glucose [Mass/Vol] 135 mg/dL High 70-99 [facility] Comment on above: Performed By: #### L 500.4050, L100.0100, L501.5200 ####[facility] [address] [place], [address] Potassium [Moles/Vol] 4.0 mmol/L Normal 3.3-5.1 [facility] Comment on above: Performed By: #### L 500.4050, L100.0100, L501.5200 ####[facility] [address] [place], [address] Sodium [Moles/Vol] 139 mmol/L Normal 133-145 [facility] Comment on above: Performed By: #### L 500.4050, L100.0100, L501.5200 ####[facility] [address] [place], [address] T PROT 6.9 g/dL Normal 5.9-8.4 [facility] Comment on above: Performed By: #### L 500.4050, L100.0100, L501.5200 ####[facility] [address] [place], [address] Urea nitrogen [Mass/Vol] 15 mg/dL Normal 4-19 [facility] Comment on above: Performed By: #### L 500.4050, L100.0100, L501.5200 ####[facility] [address] [place], [address] Magnesiumon 08-22-2025 Magnesium [Mass/Vol] 2.0 mg/dL Normal 1.5-2.2 [facility] Comment on above: Performed By: #### L 500.4050, L100.0100, L501.5200 ####[facility] [address] [place], [address] Oncology Visit Reporton 08-03 Oncology Visit Report Normal [facility] Phosphoruson 08-22-2025 Phosphate [Mass/Vol] 4.1 mg/dL Normal 2.7-4.5 [facility] Comment on above: Performed By: #### L 501.2300, L3100.2300 ####[facility] [address] [place], [address] Serum or plasma carcinoembry onic antigen measurement (mass/volume)Ordered By: [place] on 08-22-2025 Carcinoembryonic Ag [Mass/Vol] 7.9 ng/mL High 0.0-4.7 [facility] Comment on above: Nonsmokers <3.9 Smok ers <5.6[employer] Electrochemiluminescence Immunoassay(ECLIA)Values obtained with different assay methods or kitscannot be used interchangeably. Results cannot beinterpreted as absolute evidence of the presence orabsence of malignant disease.Performed at: [facility] [employer] [facility] Director: Abimael Sheridan PhD, Phone: [phone] Absolute lymphocyte countOrd ered By: [place] on 08-08-2025 Lymphocytes Auto (Unsp spec) [#/Vol] 1.24 10*3/uL 0.83-4.51 [facility] Absolute neutrophil countOrd ered By: [place] on 08-08-2025 Neutrophils (Bld) [#/Vol] 2.5 10*3/uL 2.0-7.7 [facility] Anion gap in Serum or Plasma Ordered By: [place] on 08-08-2025 Anion gap [Moles/Vol] 11 mmol/L 5-15 [facility] Automated lymphocyte count a s percentage of total leukocytesOrdered By: [place] on 08-08-2025 Lymphocytes/100 WBC Auto (Unsp spec) 26.7 % 19-41 [facility] BUN/creatinine ratioOrdered By: [place] on 08-08-2025 Urea nitrogen/Creatinine [Mass ratio] 23.5 mg/mg High 10- [facility] Basophil percentageOrdered B y: [place] on 08-08-2025 Basophils/100 WBC (Bld) 0.4 % 0-1 [facility] Bilirubin, totalOrdered By: [place] on 08-08-2025 Bilirubin [Mass/Vol] 0.32 mg/dL 0.00-1.30 [facility] CBC W/Diff, Automatedon Absolute Lymph 1.24 X10 3/uL Normal 0.83-4.51 [facility] Comment on above: Performed By: #### L 100.0100, L501.5200, L500.4050 ####[facility] [address] [place], [address] Absolute Neut 2.5 X10 3/uL Normal 2.0-7.7 [facility] Comment on above: Performed By: #### L 100.0100, L501.5200, L500.4050 ####[facility] [address] [place], [address] Basophils/100 WBC (Bld) 0.4 % Normal 0-1 [facility] Comment on above: Performed By: #### L 100.0100, L501.5200, L500.4050 ####[facility] [address] [place], [address] Eosinophils/100 WBC (Bld) 5.6 % High 0-5 [facility] Comment on above: Performed By: #### L 100.0100, L501.5200, L500.4050 ####[facility] [address] [place], [address] Erythrocyte distribution width (RBC) [Ratio] 14.5 % Normal 11.6-14.6 [facility] Comment on above: Performed By: #### L 100.0100, L501.5200, L500.4050 ####[facility] [address] [place], [address] Hematocrit (Bld) [Volume fraction] 34.7 % Low 37-47 [facility] Comment on above: Performed By: #### L 100.0100, L501.5200, L500.4050 ####[facility] [address] [place], [address] Hemoglobin (Bld) [Mass/Vol] 11.5 g/dL Low 12.0-15.0 [facility] Comment on above: Performed By: #### L 100.0100, L501.5200, L500.4050 ####[facility] [address] [place], [address] IG% 0.200 Normal 0.0-0.9 [facility] Comment on above: Result Comment: IG% - Immature Granulocytes (promyelocytes, myelocytes andmetamyelocytes) > 1% indicates that a LEFT SHIFT is Present. Performed By: #### L 100.0100, L501.5200, L500.4050 ####[facility] [address] [place], [address] Lymphocytes/100 WBC (Bld) 26.7 % Normal 19-41 [facility] Comment on above: Performed By: #### L 100.0100, L501.5200, L500.4050 ####[facility] [address] [place], [address] MCH (RBC) [Entitic mass] 32.8 pg High 27.0-32.0 [facility] Comment on above: Performed By: #### L 100.0100, L501.5200, L500.4050 ####[facility] [address] [place], [address] MCHC (RBC) [Mass/Vol] 33.1 g/dL Normal 32-36 [facility] Comment on above: Performed By: #### L 100.0100, L501.5200, L500.4050 ####[facility] [address] [place], [address] MCV (RBC) [Entitic vol] 98.9 fL Normal 81-99 [facility] Comment on above: Performed By: #### L 100.0100, L501.5200, L500.4050 ####[facility] [address] [place], [address] Monocytes/100 WBC (Bld) 12.7 % High 0-10 [facility] Comment on above: Performed By: #### L 100.0100, L501.5200, L500.4050 ####[facility] [address] [place], [address] Neutrophils/100 WBC (Bld) 54.4 % Normal 47-70 [facility] Comment on above: Performed By: #### L 100.0100, L501.5200, L500.4050 ####[facility] [address] [place], [address] Nucleated RBC (Bld) [#/Vol] 0 10*3/uL Normal 0-5 [facility] Comment on above: Performed By: #### L 100.0100, L501.5200, L500.4050 ####[facility] [address] [place], [address] Platelet mean volume (Bld) [Entitic vol] 9.2 fL Normal 6.2-12.0 [facility] Comment on above: Performed By: #### L 100.0100, L501.5200, L500.4050 ####[facility] [address] [place], [address] Platelets (Bld) [#/Vol] 164 10*3/uL Normal 150-450 [facility] Comment on above: Performed By: #### L 100.0100, L501.5200, L500.4050 ####[facility] [address] [place], [address] RBC (Bld) [#/Vol] 3.51 10*6/uL Low 4.2-5.4 [facility] Comment on above: Performed By: #### L 100.0100, L501.5200, L500.4050 ####[facility] [address] [place], [address] RDW SD 52.5 fl High 35.1-43.9 [facility] Comment on above: Performed By: #### L 100.0100, L501.5200, L500.4050 ####[facility] [address] [place], [address] WBC (Bld) [#/Vol] 4.6 10*3/uL Normal 4.4-11.0 [facility] Comment on above: Performed By: #### L 100.0100, L501.5200, L500.4050 ####[facility] [address] [place], [address] Carbon dioxide, total [Moles /volume] in Central venous bloodOrdered By: [place] on 08-08-2025 CO2 [Moles/Vol] 23.3 mmol/L 21.0-32.0 [facility] Chloride assayOrdered By: Ru Conn on 08-08-2025 Chloride [Moles/Vol] 104 mmol/L 98-108 [facility] Comprehensive Metabolic Prof ilon 08-08-2025 Albumin [Mass/Vol] 3.5 g/dL Normal 3.4-4.8 [facility] Comment on above: Performed By: #### L 100.0100, L501.5200, L500.4050 ####[facility] [address] [place], [address] Albumin/Globulin [Mass ratio] 1.1 {ratio} Normal 0.9-2.4 [facility] Comment on above: Performed By: #### L 100.0100, L501.5200, L500.4050 ####[facility] [address] [place], [address] ALK PHOS 73 U/L Normal 35-104 [facility] Comment on above: Performed By: #### L 100.0100, L501.5200, L500.4050 ####[facility] [address] [place], [address] ALT [Catalytic activity/Vol] 19 U/L Normal <=34 [facility] Comment on above: Performed By: #### L 100.0100, L501.5200, L500.4050 ####[facility] [address] [place], [address] AST [Catalytic activity/Vol] 24 U/L Normal <=31 [facility] Comment on above: Performed By: #### L 100.0100, L501.5200, L500.4050 ####[facility] [address] [place], [address] Bilirubin [Mass/Vol] 0.32 mg/dL Normal 0.00-1.30 [facility] Comment on above: Performed By: #### L 100.0100, L501.5200, L500.4050 ####[facility] [address] [place], [address] BUN/CRE 23.5 RATIO High 10-20 [facility] Comment on above: Performed By: #### L 100.0100, L501.5200, L500.4050 ####[facility] [address] [place], [address] Calcium [Mass/Vol] 9.0 mg/dL Normal 7.6-11.0 [facility] Comment on above: Performed By: #### L 100.0100, L501.5200, L500.4050 ####[facility] [address] [place], [address] Chloride [Moles/Vol] 104 mmol/L Normal 98-108 [facility] Comment on above: Performed By: #### L 100.0100, L501.5200, L500.4050 ####[facility] [address] [place], [address] CO2 [Moles/Vol] 23.3 mmol/L Normal 21.0-32.0 [facility] Comment on above: Performed By: #### L 100.0100, L501.5200, L500.4050 ####[facility] [address] [place], [address] Creatinine [Mass/Vol] 0.64 mg/dL Low 0.70-1.20 [facility] Comment on above: Performed By: #### L 100.0100, L501.5200, L500.4050 ####[facility] [address] [place], [address] ECRCL 57.97 ml/min Normal 50-250 [facility] Comment on above: Performed By: #### L 100.0100, L501.5200, L500.4050 ####[facility] [address] [place], [address] GAP 11 Normal 5-15 [facility] Comment on above: Performed By: #### L 100.0100, L501.5200, L500.4050 ####[facility] [address] [place], [address] GFR/1.73 sq M.predicted among non-blacks MDRD (S/P/Bld) [Vol rate/Area] 91 mL/min/{1.73_m2} Normal >60 [facility] Comment on above: Result Comment: mL/m in/1.73m2 CKD-EPI Creatinine Equation (2020) Performed By: #### L 100.0100, L501.5200, L500.4050 ####[facility] [address] [place], [address] Globulin (S) [Mass/Vol] 3.2 g/dL Normal 2.2-4.2 [facility] Comment on above: Performed By: #### L 100.0100, L501.5200, L500.4050 ####[facility] [address] [place], [address] Glucose [Mass/Vol] 128 mg/dL High 70-99 [facility] Comment on above: Performed By: #### L 100.0100, L501.5200, L500.4050 ####[facility] [address] [place], [address] Potassium [Moles/Vol] 3.8 mmol/L Normal 3.3-5.1 [facility] Comment on above: Performed By: #### L 100.0100, L501.5200, L500.4050 ####[facility] [address] [place], [address] Sodium [Moles/Vol] 138 mmol/L Normal 133-145 [facility] Comment on above: Performed By: #### L 100.0100, L501.5200, L500.4050 ####[facility] [address] [place], [address] T PROT 6.8 g/dL Normal 5.9-8.4 [facility] Comment on above: Performed By: #### L 100.0100, L501.5200, [id number] ####[facility] [address] [place], [address] Urea nitrogen [Mass/Vol] 15 mg/dL Normal 4-19 [facility] Comment on above: Performed By: #### L 100.0100, L501.5200, [id number] ####[facility] [address] [place], [address] Eosinophil percentageOrdered By: [place] on 08-08-2025 Eosinophils/100 WBC (Bld) 5.6 % High 0-5 [facility] Erythrocyte distribution wid th ratioOrdered By: [place] on 08-08-2025 Erythrocyte distribution width (RBC) [Ratio] 14.5 % 11.6-14.6 [facility] Erythrocyte distribution wid th standard deviationOrdered By: [place] on 08-08-2025 Erythrocyte distribution width (RBC) [Ratio] 52.5 fl High 35.1-43.9 [facility] Glomerular filtration rate ( GFR) estimation/1.73 sq m using serum, plasma, or whole bOrdered By: [place] on 08-08-2025 GFR/1.73 sq M.predicted among non-blacks MDRD (S/P/Bld) [Vol rate/Area] 91 mL/min/{1.73_m2} >60 [facility] Comment on above: mL/min/1.73m2 CKD-EP I Creatinine Equation (2020) Hematocrit Auto (Bld) [Volum e fraction]Ordered By: [facility] on 08-08-2025 Hematocrit (Bld) [Volume fraction] 34.7 % Low 37-47 [facility] Hemoglobin measurementOrdere d By: [place] on 08-08-2025 Hemoglobin (Bld) [Mass/Vol] 11.5 g/dL Low 12.0-15.0 [facility] Immature granulocytes/100 WB C Auto (Bld)Ordered By: [place] on 08-08-2025 Immature granulocytes/100 WBC (Bld) 0.200 % 0.0-0.9 [facility] Comment on above: IG% - Immature Granu locytes (promyelocytes, myelocytes and metamyelocytes) > 1% indicates that a LEFT SHIFT is Present. Laboratory - Chemistry and C hemistry - challengeOrdered By: [place] on 08-08-2025 AST [Catalytic activity/Vol] 24 U/L <32 [facility] MCV (mean corpuscular volume ) determinationOrdered By: [place] on 08-08-2025 MCV (RBC) [Entitic vol] 98.9 fL 81-99 [facility] Magnesiumon 08-08-2025 Magnesium [Mass/Vol] 1.9 mg/dL Normal 1.5-2.2 [facility] Comment on above: Performed By: #### L 100.0100, L501.5200, L500.4050 ####[facility] [address] [place], [address] Magnesium measurement (mass/ volume)Ordered By: [place] on 08-08-2025 Magnesium (Unsp spec) [Mass/Vol] 1.9 mg/dL 1.5-2.2 [facility] Mean corpuscular hemoglobin (MCH) determinationOrdered By: [place] on 08-08-2025 MCH (RBC) [Entitic mass] 32.8 pg High 27.0-32.0 [facility] Mean corpuscular hemoglobin concentration (MCHC) determinationOrdered By: [place] on 08-08-2025 MCHC (RBC) [Mass/Vol] 33.1 g/dL 32-36 [facility] Mean platelet volume determi nationOrdered By: [place] on 08-08-2025 Platelet mean volume (Bld) [Entitic vol] 9.2 fL 6.2-12.0 [facility] Monocyte percentageOrdered B y: [place] on 08-08-2025 Monocytes/100 WBC (Bld) 12.7 % High 0-10 [facility] Neutrophil percentageOrdered By: [facility] on 08-08-2025 Neutrophils/100 WBC (Bld) 54.4 % 47-70 [facility] Nucleated red blood cell per centageOrdered By: [place] on 08-08-2025 Nucleated RBC/100 WBC (Bld) [Ratio] 0 % 0-5 [facility] Oncology Visit Reporton Oncology Visit Report Normal [facility] Phosphoruson 08-08-2025 Phosphate [Mass/Vol] 3.2 mg/dL Normal 2.7-4.5 [facility] Comment on above: Performed By: #### L 868.1775 ####[facility] [address] [place], [address] Platelet countOrdered By: Ru Conn on 08-08-2025 Platelets (Bld) [#/Vol] 164 10*3/uL 150-450 [facility] Potassium measurement (mass/ volume)Ordered By: [place] on 08-08-2025 Potassium (Unsp spec) [Mass/Vol] 3.8 mmol/L 3.3-5.1 [facility] RBC Auto (Bld) [#/Vol]Ordere d By: [place] on 08-08-2025 RBC (Bld) [#/Vol] 3.51 10*6/uL Low 4.2-5.4 [facility] Serum creatinine measurement (mass/volume)Ordered By: [place] on 08-08-2025 Creatinine [Mass/Vol] 0.64 mg/dL Low 0.70-1.20 [facility] Serum globulin measurementOr dered By: [place] on 08-08-2025 Globulin (S) [Mass/Vol] 3.2 g/dL 2.2-4.2 [facility] Serum glucose measurement (m ass/volume)Ordered By: [place] on 08-08-2025 Glucose [Mass/Vol] 128 mg/dL High 70-99 [facility] Serum or plasma alanine rojo otransferase (ALT) measurementOrdered By: [place] on 08-08-2025 ALT [Catalytic activity/Vol] 19 U/L <35 [facility] Serum or plasma albumin alfredo urement (mass/volume)Ordered By: [place] on 08-08-2025 Albumin [Mass/Vol] 3.5 g/dL 3.4-4.8 [facility] Serum or plasma albumin/glob ulin mass ratioOrdered By: [place] on 08-08-2025 Albumin/Globulin [Mass ratio] 1.1 {ratio} 0.9-2.4 [facility] Serum or plasma alkaline marisabel sphatase measurementOrdered By: [place] on 08-08-2025 ALP [Catalytic activity/Vol] 73 U/L 35-104 [facility] Serum or plasma calcium alfredo urement (mass/volume)Ordered By: [place] on 08-08-2025 Calcium [Mass/Vol] 9.0 mg/dL 7.6-11.0 [facility] Serum or plasma urea nitroge n measurement (mass/volume)Ordered By: [place] on 08-08-2025 Urea nitrogen [Mass/Vol] 15 mg/dL 4-19 [facility] Sodium levelOrdered By: Kurt mejia Senia on 08-08-2025 Sodium [Moles/Vol] 138 mmol/L 133-145 [facility] Total proteinOrdered By: Shady burroughs Senia on 08-08-2025 Protein [Mass/Vol] 6.8 g/dL 5.9-8.4 [facility] White blood cell (WBC) count Ordered By: [place] on 08-08-2025 WBC (Bld) [#/Vol] 4.6 10*3/uL 4.4-11.0 [facility] 3D MAMM BILAT SCREENon 08-02 3D MAMM BILAT SCREEN [address] ? [place] [address] ? Patient: JESSIKA CARRILLO Phone#: : 1950 Age: 74 Gender: F Pt. Type: Out Account: [id number] Location: [facility] Ordering: SHU CHOW Exam Date: 08/02/2025/11:01 Family Phys: Charge Code: [id number] Physician: Bradford Order #: [id number] Dose#: PROCEDURE: BILATERAL SCREENING BREAST TOMOSYNTHESIS MAMMOGRAM WITH CAD COMPARISON: [facility], 3D BILAT SCREEN, 08/21/2023, 11:12. [facility], 3D BILAT SCREEN, 08/01/2024, 10:25. INDICATIONS: Screening. BREAST COMPOSITION: There are scattered areas of fibroglandular density FINDINGS: DIAGNOSTIC CATEGORY 1--NEGATIVE NO CHANGE FROM COMPARISON ASSESSMENT. RIGHT BREAST: No significant suspicious finding. No significant change has occurred. LEFT BREAST: No significant suspicious finding. No significant change has occurred. RECOMMENDATIONS: ROUTINE MAMMOGRAM AND CLINICAL EVALUATION IN 12 MONTHS. PLEASE NOTE: CLICK HERE IF HIGH RISK A NORMAL MAMMOGRAM DOES NOT EXCLUDE THE [...] SYSTEM. Dictated by: Bertha Granda MD on 08/02/2025 at 11:38 Approved by: Bertha Granda MD on 08/02/2025 at 11:[address] [facility] Cardiology Visit Reporton Cardiology Visit Report Normal [facility] Absolute lymphocyte countOrd ered By: [facility] 07-[facility]25 Lymphocytes Auto (Unsp spec) [#/Vol] 1.22 10*3/uL 0.83-4.51 [facility] Absolute neutrophil countOrd ered By: [facility] on 07-25-2025 Neutrophils (Bld) [#/Vol] 3.3 10*3/uL 2.0-7.7 [facility] Anion gap in Serum or Plasma Ordered By: [facility] on 07-25-2025 Anion gap [Moles/Vol] 11 mmol/L 5-15 [facility] Automated lymphocyte count a s percentage of total leukocytesOrdered By: [facility] on 07-25-2025 Lymphocytes/100 WBC Auto (Unsp spec) 22.5 % 19-41 [facility] BUN/creatinine ratioOrdered By: [facility] on 07-25-2025 Urea nitrogen/Creatinine [Mass ratio] 17.2 mg/mg 10-20 [facility] Basophil percentageOrdered B y: [facility] on 07-25-2025 Basophils/100 WBC (Bld) 0.4 % 0-1 [facility] Bilirubin, totalOrdered By: [facility] on 07-25-2025 Bilirubin [Mass/Vol] 0.26 mg/dL 0.00-1.30 [facility] CBC W/Diff, Automatedon 09-2 3-2025 Absolute Lymph 1.22 X10 3/uL Normal 0.83-4.51 [facility] Comment on above: Performed By: #### L 500.4050, L501.5200, L100.0100 ####[facility] [address] [place], [address] Absolute Neut 3.3 X10 3/uL Normal 2.0-7.7 [facility] Comment on above: Performed By: #### L 500.4050, L501.5200, L100.0100 ####[facility] [address] [place], [address] Basophils/100 WBC (Bld) 0.4 % Normal 0-1 [facility] Comment on above: Performed By: #### L 500.4050, L501.5200, L100.0100 ####[facility] [address] [place], [address] Eosinophils/100 WBC (Bld) 3.9 % Normal 0-5 [facility] Comment on above: Performed By: #### L 500.4050, L501.5200, L100.0100 ####[facility] [address] [place], [address] Erythrocyte distribution width (RBC) [Ratio] 15.5 % High 11.6-14.6 [facility] Comment on above: Performed By: #### L 500.4050, L501.5200, L100.0100 ####[facility] [address] [place], [address] Hematocrit (Bld) [Volume fraction] 34.5 % Low 37-47 [facility] Comment on above: Performed By: #### L 500.4050, L501.5200, L100.0100 ####[facility] [address] [place], [address] Hemoglobin (Bld) [Mass/Vol] 11.5 g/dL Low 12.0-15.0 [facility] Comment on above: Performed By: #### L 500.4050, L501.5200, L100.0100 ####[facility] [address] [place], [address] IG% 0.400 Normal 0.0-0.9 [facility] Comment on above: Result Comment: IG% - Immature Granulocytes (promyelocytes, myelocytes andmetamyelocytes) > 1% indicates that a LEFT SHIFT is Present. Performed By: #### L 500.4050, L501.5200, L100.0100 ####[facility] [address] [place], [address] Lymphocytes/100 WBC (Bld) 22.5 % Normal 19-41 [facility] Comment on above: Performed By: #### L 500.4050, L501.5200, L100.0100 ####[facility] [address] [place], [address] MCH (RBC) [Entitic mass] 32.9 pg High 27.0-32.0 [facility] Comment on above: Performed By: #### L 500.4050, L501.5200, L100.0100 ####[facility] [address] [place], [address] MCHC (RBC) [Mass/Vol] 33.3 g/dL Normal 32-36 [facility] Comment on above: Performed By: #### L 500.4050, L501.5200, L100.0100 ####[facility] [address] [place], [address] MCV (RBC) [Entitic vol] 98.6 fL Normal 81-99 [facility] Comment on above: Performed By: #### L 500.4050, L501.5200, L100.0100 ####[facility] [address] [place], [address] Monocytes/100 WBC (Bld) 13.1 % High 0-10 [facility] Comment on above: Performed By: #### L 500.4050, L501.5200, L100.0100 ####[facility] [address] [place], [address] Neutrophils/100 WBC (Bld) 59.7 % Normal 47-70 [facility] Comment on above: Performed By: #### L 500.4050, L501.5200, L100.0100 ####[facility] [address] [place], [address] Nucleated RBC (Bld) [#/Vol] 0 10*3/uL Normal 0-5 [facility] Comment on above: Performed By: #### L 500.4050, L501.5200, L100.0100 ####[facility] [address] [place], [address] Platelet mean volume (Bld) [Entitic vol] 9.3 fL Normal 6.2-12.0 [facility] Comment on above: Performed By: #### L 500.4050, L501.5200, L100.0100 ####[facility] [address] [place], [address] Platelets (Bld) [#/Vol] 173 10*3/uL Normal 150-450 [facility] Comment on above: Performed By: #### L 500.4050, L501.5200, L100.0100 ####[facility] [address] [place], [address] RBC (Bld) [#/Vol] 3.50 10*6/uL Low 4.2-5.4 [facility] Comment on above: Performed By: #### L 500.4050, L501.5200, L100.0100 ####[facility] [address] [place], [address] RDW SD 55.7 fl High 35.1-43.9 [facility] Comment on above: Performed By: #### L 500.4050, L501.5200, L100.0100 ####[facility] [address] [place], [address] WBC (Bld) [#/Vol] 5.4 10*3/uL Normal 4.4-11.0 [facility] Comment on above: Performed By: #### L 500.4050, L501.5200, L100.0100 ####[facility] [address] [place], [address] Carbon dioxide, total [Moles /volume] in Central venous bloodOrdered By: [place] on 07-25-2025 CO2 [Moles/Vol] 21.9 mmol/L 21.0-32.0 [facility] Chloride assayOrdered By: Ru Conn on 07-25-2025 Chloride [Moles/Vol] 107 mmol/L 98-108 [facility] Comprehensive Metabolic Prof ilon 07-25-2025 Albumin [Mass/Vol] 3.4 g/dL Normal 3.4-4.8 [facility] Comment on above: Performed By: #### L 500.4050, L501.5200, L100.0100 ####[facility] [address] [place], [address] Albumin/Globulin [Mass ratio] 1.0 {ratio} Normal 0.9-2.4 [facility] Comment on above: Performed By: #### L 500.4050, L501.5200, L100.0100 ####[facility] [address] [place], [address] ALK PHOS 69 U/L Normal 35-104 [facility] Comment on above: Performed By: #### L 500.4050, L501.5200, L100.0100 ####[facility] [address] [place], [address] ALT [Catalytic activity/Vol] 20 U/L Normal <=34 [facility] Comment on above: Performed By: #### L 500.4050, L501.5200, L100.0100 ####[facility] [address] [place], [address] AST [Catalytic activity/Vol] 28 U/L Normal <=31 [facility] Comment on above: Performed By: #### L 500.4050, L501.5200, L100.0100 ####[facility] [address] [place], [address] Bilirubin [Mass/Vol] 0.26 mg/dL Normal 0.00-1.30 [facility] Comment on above: Performed By: #### L 500.4050, L501.5200, L100.0100 ####[facility] [address] [place], [address] BUN/CRE 17.2 RATIO Normal 10-20 [facility] Comment on above: Performed By: #### L 500.4050, L501.5200, L100.0100 ####[facility] [address] [place], [address] Calcium [Mass/Vol] 8.9 mg/dL Normal 7.6-11.0 [facility] Comment on above: Performed By: #### L 500.4050, L501.5200, L100.0100 ####[facility] [address] [place], [address] Chloride [Moles/Vol] 107 mmol/L Normal 98-108 [facility] Comment on above: Performed By: #### L 500.4050, L501.5200, L100.0100 ####[facility] [address] [place], [address] CO2 [Moles/Vol] 21.9 mmol/L Normal 21.0-32.0 [facility] Comment on above: Performed By: #### L 500.4050, L501.5200, L100.0100 ####[facility] [address] [place], [address] Creatinine [Mass/Vol] 0.62 mg/dL Low 0.70-1.20 [facility] Comment on above: Performed By: #### L 500.4050, L501.5200, L100.0100 ####[facility] [address] [place], [address] ECRCL 58.75 ml/min Normal 50-250 [facility] Comment on above: Performed By: #### L 500.4050, L501.5200, L100.0100 ####[facility] [address] [place], [address] GAP 11 Normal 5-15 [facility] Comment on above: Performed By: #### L 500.4050, L501.5200, L100.0100 ####[facility] [address] [place], [address] GFR/1.73 sq M.predicted among non-blacks MDRD (S/P/Bld) [Vol rate/Area] 93 mL/min/{1.73_m2} Normal >60 [facility] Comment on above: Result Comment: mL/m in/1.73m2 CKD-EPI Creatinine Equation (2020) Performed By: #### L 500.4050, L501.5200, L100.0100 ####[facility] [address] [place], [address] Globulin (S) [Mass/Vol] 3.4 g/dL Normal 2.2-4.2 [facility] Comment on above: Performed By: #### L 500.4050, L501.5200, L100.0100 ####[facility] [address] [place], [address] Glucose [Mass/Vol] 127 mg/dL High 70-99 [facility] Comment on above: Performed By: #### L 500.4050, L501.5200, L100.0100 ####[facility] [address] [place], [address] Potassium [Moles/Vol] 4.0 mmol/L Normal 3.3-5.1 [facility] Comment on above: Performed By: #### L 500.4050, L501.5200, L100.0100 ####[facility] [address] [place], [address] Sodium [Moles/Vol] 139 mmol/L Normal 133-145 [facility] Comment on above: Performed By: #### L 500.4050, L501.5200, L100.0100 ####[facility] [address] [place], [address] T PROT 6.8 g/dL Normal 5.9-8.4 [facility] Comment on above: Performed By: #### L 500.4050, L501.5200, L100.0100 ####[facility] [address] [place], [address] Urea nitrogen [Mass/Vol] 11 mg/dL Normal 4-19 [facility] Comment on above: Performed By: #### L 500.4050, L501.5200, L100.0100 ####[facility] [address] [place], [address] Eosinophil percentageOrdered By: [place] on 07-25-2025 Eosinophils/100 WBC (Bld) 3.9 % 0-5 [facility] Erythrocyte distribution wid th ratioOrdered By: [place] on 07-25-2025 Erythrocyte distribution width (RBC) [Ratio] 15.5 % High 11.6-14.6 [facility] Erythrocyte distribution wid th standard deviationOrdered By: [place] on 07-25-2025 Erythrocyte distribution width (RBC) [Ratio] 55.7 fl High 35.1-43.9 [facility] Glomerular filtration rate ( GFR) estimation/1.73 sq m using serum, plasma, or whole bOrdered By: [place] on 07-25-2025 GFR/1.73 sq M.predicted among non-blacks MDRD (S/P/Bld) [Vol rate/Area] 93 mL/min/{1.73_m2} >60 [facility] Comment on above: mL/min/1.73m2 CKD-EP I Creatinine Equation (2020) Hematocrit Auto (Bld) [Volum e fraction]Ordered By: [facility] on 07-25-2025 Hematocrit (Bld) [Volume fraction] 34.5 % Low 37-47 [facility] Hemoglobin measurementOrdere d By: [place] on 07-25-2025 Hemoglobin (Bld) [Mass/Vol] 11.5 g/dL Low 12.0-15.0 [facility] Immature granulocytes/100 WB C Auto (Bld)Ordered By: [facility] on 07-25-2025 Immature granulocytes/100 WBC (Bld) 0.400 % 0.0-0.9 [facility] Comment on above: IG% - Immature Granu locytes (promyelocytes, myelocytes and metamyelocytes) > 1% indicates that a LEFT SHIFT is Present. Laboratory - Chemistry and C hemistry - challengeOrdered By: [place] on 07-25-2025 AST [Catalytic activity/Vol] 28 U/L <32 [facility] MCV (mean corpuscular volume ) determinationOrdered By: [facility] on 07-25-2025 MCV (RBC) [Entitic vol] 98.6 fL 81-99 [facility] Magnesiumon 07-25-2025 Magnesium [Mass/Vol] 2.1 mg/dL Normal 1.5-2.2 [facility] Comment on above: Performed By: #### L 500.4050, L501.5200, L100.0100 ####[facility] [address] [place], [address] Magnesium measurement (mass/ volume)Ordered By: [place] on 07-25-2025 Magnesium (Unsp spec) [Mass/Vol] 2.1 mg/dL 1.5-2.2 [facility] Mean corpuscular hemoglobin (MCH) determinationOrdered By: [place] on 07-25-2025 MCH (RBC) [Entitic mass] 32.9 pg High 27.0-32.0 [facility] Mean corpuscular hemoglobin concentration (MCHC) determinationOrdered By: [place] on 07-25-2025 MCHC (RBC) [Mass/Vol] 33.3 g/dL 32-36 [facility] Mean platelet volume determi nationOrdered By: [place] on 07-25-2025 Platelet mean volume (Bld) [Entitic vol] 9.3 fL 6.2-12.0 [facility] Monocyte percentageOrdered B y: [place] on 07-25-2025 Monocytes/100 WBC (Bld) 13.1 % High 0-10 [facility] Neutrophil percentageOrdered By: [facility] on 07-25-2025 Neutrophils/100 WBC (Bld) 59.7 % 47-70 [facility] Nucleated red blood cell per centageOrdered By: [place] on 07-25-2025 Nucleated RBC/100 WBC (Bld) [Ratio] 0 % 0-5 [facility] Oncology Visit Reporton 07-04 Oncology Visit Report Normal [facility] Platelet countOrdered By: Ru Conn on 07-25-2025 Platelets (Bld) [#/Vol] 173 10*3/uL 150-450 [facility] Potassium measurement (mass/ volume)Ordered By: [place] on 07-25-2025 Potassium (Unsp spec) [Mass/Vol] 4.0 mmol/L 3.3-5.1 [facility] RBC Auto (Bld) [#/Vol]Ordere d By: [place] on 07-25-2025 RBC (Bld) [#/Vol] 3.50 10*6/uL Low 4.2-5.4 [facility] Serum creatinine measurement (mass/volume)Ordered By: [place] on 07-25-2025 Creatinine [Mass/Vol] 0.62 mg/dL Low 0.70-1.20 [facility] Serum globulin measurementOr dered By: [place] on 07-25-2025 Globulin (S) [Mass/Vol] 3.4 g/dL 2.2-4.2 [facility] Serum glucose measurement (m ass/volume)Ordered By: [place] on 07-25-2025 Glucose [Mass/Vol] 127 mg/dL High 70-99 [facility] Serum or plasma alanine rojo otransferase (ALT) measurementOrdered By: [place] on 07-25-2025 ALT [Catalytic activity/Vol] 20 U/L <35 [facility] Serum or plasma albumin alfredo urement (mass/volume)Ordered By: [place] on 07-25-2025 Albumin [Mass/Vol] 3.4 g/dL 3.4-4.8 [facility] Serum or plasma albumin/glob ulin mass ratioOrdered By: [place] on 07-25-2025 Albumin/Globulin [Mass ratio] 1.0 {ratio} 0.9-2.4 [facility] Serum or plasma alkaline marisabel sphatase measurementOrdered By: [place] on 07-25-2025 ALP [Catalytic activity/Vol] 69 U/L 35-104 [facility] Serum or plasma calcium alfredo urement (mass/volume)Ordered By: [place] on 07-25-2025 Calcium [Mass/Vol] 8.9 mg/dL 7.6-11.0 [facility] Serum or plasma urea nitroge n measurement (mass/volume)Ordered By: [place] on 07-25-2025 Urea nitrogen [Mass/Vol] 11 mg/dL 4-19 [facility] Sodium levelOrdered By: Kurt Conn on 07-25-2025 Sodium [Moles/Vol] 139 mmol/L 133-145 [facility] Total proteinOrdered By: Shady Conn on 07-25-2025 Protein [Mass/Vol] 6.8 g/dL 5.9-8.4 [facility] White blood cell (WBC) count Ordered By: [facility] on 07-25-2025 WBC (Bld) [#/Vol] 5.4 10*3/uL 4.4-11.0 [facility] Absolute lymphocyte countOrd ered By: [facility] Lymphocytes Auto (Unsp spec) [#/Vol] 1.45 10*3/uL 0.83-4.51 [facility] Absolute neutrophil countOrd ered By: [facility] on 07-11-2025 Neutrophils (Bld) [#/Vol] 2.9 10*3/uL 2.0-7.7 [facility] Anion gap in Serum or Plasma Ordered By: [facility] on 07-11-2025 Anion gap [Moles/Vol] 12 mmol/L 5-15 [facility] Automated lymphocyte count a s percentage of total leukocytesOrdered By: [facility] on 07-11-2025 Lymphocytes/100 WBC Auto (Unsp spec) 28.0 % 19-41 [facility] BUN/creatinine ratioOrdered By: [facility] on 07-11-2025 Urea nitrogen/Creatinine [Mass ratio] 17.4 mg/mg 10-20 [facility] Basophil percentageOrdered B y: [facility] on 07-11-2025 Basophils/100 WBC (Bld) 0.8 % 0-1 [facility] Bilirubin, totalOrdered By: [facility] on 07-11-2025 Bilirubin [Mass/Vol] 0.30 mg/dL 0.00-1.30 [facility] CBC W/Diff, Automatedon Absolute Lymph 1.45 X10 3/uL Normal 0.83-4.51 [facility] Comment on above: Performed By: #### L 500.4050, L100.0100, L501.5200 ####[facility] [address] [place], [address] Absolute Neut 2.9 X10 3/uL Normal 2.0-7.7 [facility] Comment on above: Performed By: #### L 500.4050, L100.0100, L501.5200 ####[facility] [address] [place], [address] Basophils/100 WBC (Bld) 0.8 % Normal 0-1 [facility] Comment on above: Performed By: #### L 500.4050, L100.0100, L501.5200 ####[facility] [address] [place], [address] Eosinophils/100 WBC (Bld) 2.5 % Normal 0-5 [facility] Comment on above: Performed By: #### L 500.4050, L100.0100, L501.5200 ####[facility] [address] [place], [address] Erythrocyte distribution width (RBC) [Ratio] 16.1 % High 11.6-14.6 [facility] Comment on above: Performed By: #### L 500.4050, L100.0100, L501.5200 ####[facility] [address] [place], [address] Hematocrit (Bld) [Volume fraction] 34.6 % Low 37-47 [facility] Comment on above: Performed By: #### L 500.4050, L100.0100, L501.5200 ####[facility] [address] [place], [address] Hemoglobin (Bld) [Mass/Vol] 11.2 g/dL Low 12.0-15.0 [facility] Comment on above: Performed By: #### L 500.4050, L100.0100, L501.5200 ####[facility] [address] [place], [address] IG% 0.200 Normal 0.0-0.9 [facility] Comment on above: Result Comment: IG% - Immature Granulocytes (promyelocytes, myelocytes andmetamyelocytes) > 1% indicates that a LEFT SHIFT is Present. Performed By: #### L 500.4050, L100.0100, L501.5200 ####[facility] [address] [place], [address] Lymphocytes/100 WBC (Bld) 28.0 % Normal 19-41 [facility] Comment on above: Performed By: #### L 500.4050, L100.0100, L501.5200 ####[facility] [address] [place], [address] MCH (RBC) [Entitic mass] 32.1 pg High 27.0-32.0 [facility] Comment on above: Performed By: #### L 500.4050, L100.0100, L501.5200 ####[facility] [address] [place], [address] MCHC (RBC) [Mass/Vol] 32.4 g/dL Normal 32-36 [facility] Comment on above: Performed By: #### L 500.4050, L100.0100, L501.5200 ####[facility] [address] [place], [address] MCV (RBC) [Entitic vol] 99.1 fL High 81-99 [facility] Comment on above: Performed By: #### L 500.4050, L100.0100, L501.5200 ####[facility] [address] [place], [address] Monocytes/100 WBC (Bld) 12.5 % High 0-10 [facility] Comment on above: Performed By: #### L 500.4050, L100.0100, L501.5200 ####[facility] [address] [place], [address] Neutrophils/100 WBC (Bld) 56.0 % Normal 47-70 [facility] Comment on above: Performed By: #### L 500.4050, L100.0100, L501.5200 ####[facility] [address] [place], [address] Nucleated RBC (Bld) [#/Vol] 0 10*3/uL Normal 0-5 [facility] Comment on above: Performed By: #### L 500.4050, L100.0100, L501.5200 ####[facility] [address] [place], [address] Platelet mean volume (Bld) [Entitic vol] 9.1 fL Normal 6.2-12.0 [facility] Comment on above: Performed By: #### L 500.4050, L100.0100, L501.5200 ####[facility] [address] [place], [address] Platelets (Bld) [#/Vol] 218 10*3/uL Normal 150-450 [facility] Comment on above: Performed By: #### L 500.4050, L100.0100, L501.5200 ####[facility] [address] [place], [address] RBC (Bld) [#/Vol] 3.49 10*6/uL Low 4.2-5.4 [facility] Comment on above: Performed By: #### L 500.4050, L100.0100, L501.5200 ####[facility] [address] [place], [address] RDW SD 58.2 fl High 35.1-43.9 [facility] Comment on above: Performed By: #### L 500.4050, L100.0100, L501.5200 ####[facility] [address] [place], [address] WBC (Bld) [#/Vol] 5.2 10*3/uL Normal 4.4-11.0 [facility] Comment on above: Performed By: #### L 500.4050, L100.0100, L501.5200 ####[facility] [address] [place], [address] Carbon dioxide, total [Moles /volume] in Central venous bloodOrdered By: [place] on 07-11-2025 CO2 [Moles/Vol] 22.4 mmol/L 21.0-32.0 [facility] Chloride assayOrdered By: Ru Conn on 07-11-2025 Chloride [Moles/Vol] 106 mmol/L 98-108 [facility] Comprehensive Metabolic Prof ilon 07-11-2025 Albumin [Mass/Vol] 3.6 g/dL Normal 3.4-4.8 [facility] Comment on above: Performed By: #### L 500.4050, L100.0100, L501.5200 ####[facility] [address] [place], [address] Albumin/Globulin [Mass ratio] 1.1 {ratio} Normal 0.9-2.4 [facility] Comment on above: Performed By: #### L 500.4050, L100.0100, L501.5200 ####[facility] [address] [place], [address] ALK PHOS 62 U/L Normal 35-104 [facility] Comment on above: Performed By: #### L 500.4050, L100.0100, L501.5200 ####[facility] [address] [place], [address] ALT [Catalytic activity/Vol] 17 U/L Normal <=34 [facility] Comment on above: Performed By: #### L 500.4050, L100.0100, L501.5200 ####[facility] [address] [place], [address] AST [Catalytic activity/Vol] 26 U/L Normal <=31 [facility] Comment on above: Performed By: #### L 500.4050, L100.0100, L501.5200 ####[facility] [address] [place], [address] Bilirubin [Mass/Vol] 0.30 mg/dL Normal 0.00-1.30 [facility] Comment on above: Performed By: #### L 500.4050, L100.0100, L501.5200 ####[facility] [address] [place], [address] BUN/CRE 17.4 RATIO Normal 10-20 [facility] Comment on above: Performed By: #### L 500.4050, L100.0100, L501.5200 ####[facility] [address] [place], [address] Calcium [Mass/Vol] 9.1 mg/dL Normal 7.6-11.0 [facility] Comment on above: Performed By: #### L 500.4050, L100.0100, L501.5200 ####[facility] [address] [place], [address] Chloride [Moles/Vol] 106 mmol/L Normal 98-108 [facility] Comment on above: Performed By: #### L 500.4050, L100.0100, L501.5200 ####[facility] [address] [place], [address] CO2 [Moles/Vol] 22.4 mmol/L Normal 21.0-32.0 [facility] Comment on above: Performed By: #### L 500.4050, L100.0100, L501.5200 ####[facility] [address] [place], [address] Creatinine [Mass/Vol] 0.68 mg/dL Low 0.70-1.20 [facility] Comment on above: Performed By: #### L 500.4050, L100.0100, L501.5200 ####[facility] [address] [place], [address] ECRCL 60.07 ml/min Normal 50-250 [facility] Comment on above: Performed By: #### L 500.4050, L100.0100, L501.5200 ####[facility] [address] [place], [address] GAP 12 Normal 5-15 [facility] Comment on above: Performed By: #### L 500.4050, L100.0100, L501.5200 ####[facility] [address] [place], [address] GFR/1.73 sq M.predicted among non-blacks MDRD (S/P/Bld) [Vol rate/Area] 91 mL/min/{1.73_m2} Normal >60 [facility] Comment on above: Result Comment: mL/m in/1.73m2 CKD-EPI Creatinine Equation (2020) Performed By: #### L 500.4050, L100.0100, L501.5200 ####[facility] [address] [place], [address] Globulin (S) [Mass/Vol] 3.2 g/dL Normal 2.2-4.2 [facility] Comment on above: Performed By: #### L 500.4050, L100.0100, L501.5200 ####[facility] [address] [place], [address] Glucose [Mass/Vol] 112 mg/dL High 70-99 [facility] Comment on above: Performed By: #### L 500.4050, L100.0100, L501.5200 ####[facility] [address] [place], [address] Potassium [Moles/Vol] 4.2 mmol/L Normal 3.3-5.1 [facility] Comment on above: Performed By: #### L 500.4050, L100.0100, L501.5200 ####[facility] [address] [place], [address] Sodium [Moles/Vol] 140 mmol/L Normal 133-145 [facility] Comment on above: Performed By: #### L 500.4050, L100.0100, L501.5200 ####[facility] [address] [place], [address] T PROT 6.8 g/dL Normal 5.9-8.4 [facility] Comment on above: Performed By: #### L 500.4050, L100.0100, L501.5200 ####[facility] [address] [place], [address] Urea nitrogen [Mass/Vol] 12 mg/dL Normal 4-19 [facility] Comment on above: Performed By: #### L 500.4050, L100.0100, L501.5200 ####[facility] [address] [place], [address] Eosinophil percentageOrdered By: [place] on 07-11-2025 Eosinophils/100 WBC (Bld) 2.5 % 0-5 [facility] Erythrocyte distribution wid th ratioOrdered By: [place] on 07-11-2025 Erythrocyte distribution width (RBC) [Ratio] 16.1 % High 11.6-14.6 [facility] Erythrocyte distribution wid th standard deviationOrdered By: [place] on 07-11-2025 Erythrocyte distribution width (RBC) [Ratio] 58.2 fl High 35.1-43.9 [facility] Glomerular filtration rate ( GFR) estimation/1.73 sq m using serum, plasma, or whole bOrdered By: [place] on 07-11-2025 GFR/1.73 sq M.predicted among non-blacks MDRD (S/P/Bld) [Vol rate/Area] 91 mL/min/{1.73_m2} >60 [facility] Comment on above: mL/min/1.73m2 CKD-EP I Creatinine Equation (2020) Hematocrit Auto (Bld) [Volum e fraction]Ordered By: [place] on 07-11-2025 Hematocrit (Bld) [Volume fraction] 34.6 % Low 37-47 [facility] Hemoglobin measurementOrdere d By: [place] on 07-11-2025 Hemoglobin (Bld) [Mass/Vol] 11.2 g/dL Low 12.0-15.0 [facility] Immature granulocytes/100 WB C Auto (Bld)Ordered By: [place] on 07-11-2025 Immature granulocytes/100 WBC (Bld) 0.200 % 0.0-0.9 [facility] Comment on above: IG% - Immature Granu locytes (promyelocytes, myelocytes and metamyelocytes) > 1% indicates that a LEFT SHIFT is Present. Laboratory - Chemistry and C hemistry - challengeOrdered By: [place] on 07-11-2025 AST [Catalytic activity/Vol] 26 U/L <32 [facility] MCV (mean corpuscular volume ) determinationOrdered By: [place] on 07-11-2025 MCV (RBC) [Entitic vol] 99.1 fL High 81-99 [facility] Magnesiumon 07-11-2025 Magnesium [Mass/Vol] 2.0 mg/dL Normal 1.5-2.2 [facility] Comment on above: Performed By: #### L 500.4050, L100.0100, L501.5200 ####[facility] [address] [place], [address] Magnesium measurement (mass/ volume)Ordered By: [place] on 07-11-2025 Magnesium (Unsp spec) [Mass/Vol] 2.0 mg/dL 1.5-2.2 [facility] Mean corpuscular hemoglobin (MCH) determinationOrdered By: [place] on 07-11-2025 MCH (RBC) [Entitic mass] 32.1 pg High 27.0-32.0 [facility] Mean corpuscular hemoglobin concentration (MCHC) determinationOrdered By: [place] on 07-11-2025 MCHC (RBC) [Mass/Vol] 32.4 g/dL 32-36 [facility] Mean platelet volume determi nationOrdered By: [place] on 07-11-2025 Platelet mean volume (Bld) [Entitic vol] 9.1 fL 6.2-12.0 [facility] Monocyte percentageOrdered B y: [place] on 07-11-2025 Monocytes/100 WBC (Bld) 12.5 % High 0-10 [facility] Neutrophil percentageOrdered By: [place] on 07-11-2025 Neutrophils/100 WBC (Bld) 56.0 % 47-70 [facility] Nucleated red blood cell per centageOrdered By: [place] on 07-11-2025 Nucleated RBC/100 WBC (Bld) [Ratio] 0 % 0-5 [facility] Oncology Visit Reporton 09 Oncology Visit Report Normal [facility] Platelet countOrdered By: Ru [place] on 07-11-2025 Platelets (Bld) [#/Vol] 218 10*3/uL 150-450 [facility] Potassium measurement (mass/ volume)Ordered By: [place] on 07-11-2025 Potassium (Unsp spec) [Mass/Vol] 4.2 mmol/L 3.3-5.1 [facility] RBC Auto (Bld) [#/Vol]Ordere d By: [place] on 07-11-2025 RBC (Bld) [#/Vol] 3.49 10*6/uL Low 4.2-5.4 [facility] Serum creatinine measurement (mass/volume)Ordered By: [place] on 07-11-2025 Creatinine [Mass/Vol] 0.68 mg/dL Low 0.70-1.20 [facility] Serum globulin measurementOr dered By: [place] on 07-11-2025 Globulin (S) [Mass/Vol] 3.2 g/dL 2.2-4.2 [facility] Serum glucose measurement (m ass/volume)Ordered By: [place] on 07-11-2025 Glucose [Mass/Vol] 112 mg/dL High 70-99 [facility] Serum or plasma alanine rojo otransferase (ALT) measurementOrdered By: [place] on 07-11-2025 ALT [Catalytic activity/Vol] 17 U/L <35 [facility] Serum or plasma albumin alfredo urement (mass/volume)Ordered By: [place] on 07-11-2025 Albumin [Mass/Vol] 3.6 g/dL 3.4-4.8 [facility] Serum or plasma albumin/glob ulin mass ratioOrdered By: [place] on 07-11-2025 Albumin/Globulin [Mass ratio] 1.1 {ratio} 0.9-2.4 [facility] Serum or plasma alkaline marisabel sphatase measurementOrdered By: [place] on 07-11-2025 ALP [Catalytic activity/Vol] 62 U/L 35-104 [facility] Serum or plasma calcium alfredo urement (mass/volume)Ordered By: [place] on 07-11-2025 Calcium [Mass/Vol] 9.1 mg/dL 7.6-11.0 [facility] Serum or plasma urea nitroge n measurement (mass/volume)Ordered By: [place] on 07-11-2025 Urea nitrogen [Mass/Vol] 12 mg/dL 4-19 [facility] Sodium levelOrdered By: Kurt Conn on 07-11-2025 Sodium [Moles/Vol] 140 mmol/L 133-145 [facility] Total proteinOrdered By: Shady [place] on 07-11-2025 Protein [Mass/Vol] 6.8 g/dL 5.9-8.4 [facility] White blood cell (WBC) count Ordered By: [place] on 07-11-2025 WBC (Bld) [#/Vol] 5.2 10*3/uL 4.4-11.0 [facility] Carcinoembryonic Antigenon 0 8- CEA 7.9 ng/mL High 0.0-4.7 [facility] Comment on above: Result Comment: Nons mokers <3.9 Smokers <5.6[employer] Electrochemiluminescence Immunoassay(ECLIA)Values obtained with different assay methods or kitscannot be used interchangeably. Results cannot beinterpreted as absolute evidence of the presence orabsence of malignant disease.Performed at: [address] [id number] Director: Abimael Sheridan PhD, Phone: [phone] Performed By: #### L 3100.2300, L501.2300 ####[facility] [address] [place], [address] Absolute lymphocyte countOrd ered By: [facility] on 06-[facility]-2025 Lymphocytes Auto (Unsp spec) [#/Vol] 1.39 10*3/uL 0.83-4.51 [facility] Absolute neutrophil countOrd ered By: [facility] on 06-27-2025 Neutrophils (Bld) [#/Vol] 4.7 10*3/uL 2.0-7.7 [facility] Anion gap in Serum or Plasma Ordered By: [facility] on 06-27-2025 Anion gap [Moles/Vol] 10 mmol/L 5-15 [facility] Automated lymphocyte count a s percentage of total leukocytesOrdered By: [facility] on 06-27-2025 Lymphocytes/100 WBC Auto (Unsp spec) 19.6 % 19-41 [facility] BUN/creatinine ratioOrdered By: [facility] on 06-27-2025 Urea nitrogen/Creatinine [Mass ratio] 20.4 mg/mg High 10-20 [facility] Basophil percentageOrdered B y: [facility] on 06-27-2025 Basophils/100 WBC (Bld) 0.7 % 0-1 [facility] Bilirubin, totalOrdered By: [facility] on 06-27-2025 Bilirubin [Mass/Vol] 0.32 mg/dL 0.00-1.30 [facility] CBC W/Diff, Automatedon 06-03 Absolute Lymph 1.39 X10 3/uL Normal 0.83-4.51 [facility] Comment on above: Performed By: #### L 100.0100, L501.5200, L500.4050 ####[facility] [address] [place], [address] Absolute Neut 4.7 X10 3/uL Normal 2.0-7.7 [facility] Comment on above: Performed By: #### L 100.0100, L501.5200, L500.4050 ####[facility] [address] [place], [address] Basophils/100 WBC (Bld) 0.7 % Normal 0-1 [facility] Comment on above: Performed By: #### L 100.0100, L501.5200, L500.4050 ####[facility] [address] [place], [address] Eosinophils/100 WBC (Bld) 2.5 % Normal 0-5 [facility] Comment on above: Performed By: #### L 100.0100, L501.5200, L500.4050 ####[facility] [address] [place], [address] Erythrocyte distribution width (RBC) [Ratio] 16.8 % High 11.6-14.6 [facility] Comment on above: Performed By: #### L 100.0100, L501.5200, L500.4050 ####[facility] [address] [place], [address] Hematocrit (Bld) [Volume fraction] 34.5 % Low 37-47 [facility] Comment on above: Performed By: #### L 100.0100, L501.5200, L500.4050 ####[facility] [address] [place], [address] Hemoglobin (Bld) [Mass/Vol] 11.4 g/dL Low 12.0-15.0 [facility] Comment on above: Performed By: #### L 100.0100, L501.5200, L500.4050 ####[facility] [address] [place], [address] IG% 0.300 Normal 0.0-0.9 [facility] Comment on above: Result Comment: IG% - Immature Granulocytes (promyelocytes, myelocytes andmetamyelocytes) > 1% indicates that a LEFT SHIFT is Present. Performed By: #### L 100.0100, L501.5200, L500.4050 ####[facility] [address] [place], [address] Lymphocytes/100 WBC (Bld) 19.6 % Normal 19-41 [facility] Comment on above: Performed By: #### L 100.0100, L501.5200, L500.4050 ####[facility] [address] [place], [address] MCH (RBC) [Entitic mass] 31.5 pg Normal 27.0-32.0 [facility] Comment on above: Performed By: #### L 100.0100, L501.5200, L500.4050 ####[facility] [address] [place], [address] MCHC (RBC) [Mass/Vol] 33.0 g/dL Normal 32-36 [facility] Comment on above: Performed By: #### L 100.0100, L501.5200, L500.4050 ####[facility] [address] [place], [address] MCV (RBC) [Entitic vol] 95.3 fL Normal 81-99 [facility] Comment on above: Performed By: #### L 100.0100, L501.5200, L500.4050 ####[facility] [address] [place], [address] Monocytes/100 WBC (Bld) 10.2 % High 0-10 [facility] Comment on above: Performed By: #### L 100.0100, L501.5200, L500.4050 ####[facility] [address] [place], [address] Neutrophils/100 WBC (Bld) 66.7 % Normal 47-70 [facility] Comment on above: Performed By: #### L 100.0100, L501.5200, L500.4050 ####[facility] [address] [place], [address] Nucleated RBC (Bld) [#/Vol] 0 10*3/uL Normal 0-5 [facility] Comment on above: Performed By: #### L 100.0100, L501.5200, L500.4050 ####[facility] [address] [place], [address] Platelet mean volume (Bld) [Entitic vol] 8.8 fL Normal 6.2-12.0 [facility] Comment on above: Performed By: #### L 100.0100, L501.5200, L500.4050 ####[facility] [address] [place], [address] Platelets (Bld) [#/Vol] 219 10*3/uL Normal 150-450 [facility] Comment on above: Performed By: #### L 100.0100, L501.5200, L500.4050 ####[facility] [address] [place], [address] RBC (Bld) [#/Vol] 3.62 10*6/uL Low 4.2-5.4 [facility] Comment on above: Performed By: #### L 100.0100, L501.5200, L500.4050 ####[facility] [address] [place], [address] RDW SD 58.7 fl High 35.1-43.9 [facility] Comment on above: Performed By: #### L 100.0100, L501.5200, L500.4050 ####[facility] [address] [place], [address] WBC (Bld) [#/Vol] 7.1 10*3/uL Normal 4.4-11.0 [facility] Comment on above: Performed By: #### L 100.0100, L501.5200, L500.4050 ####[facility] [address] [place], [address] Carbon dioxide, total [Moles /volume] in Central venous bloodOrdered By: [place] on 06-27-2025 CO2 [Moles/Vol] 23.4 mmol/L 21.0-32.0 [facility] Chloride assayOrdered By: Ru Conn on 06-27-2025 Chloride [Moles/Vol] 105 mmol/L 98-108 [facility] Comprehensive Metabolic Prof ilon 06-27-2025 Albumin [Mass/Vol] 3.6 g/dL Normal 3.4-4.8 [facility] Comment on above: Performed By: #### L 100.0100, L501.5200, L500.4050 ####[facility] [address] [place], [address] Albumin/Globulin [Mass ratio] 1.1 {ratio} Normal 0.9-2.4 [facility] Comment on above: Performed By: #### L 100.0100, L501.5200, L500.4050 ####[facility] [address] [place], [address] ALK PHOS 67 U/L Normal 35-104 [facility] Comment on above: Performed By: #### L 100.0100, L501.5200, L500.4050 ####[facility] [address] [place], [address] ALT [Catalytic activity/Vol] 21 U/L Normal <=34 [facility] Comment on above: Performed By: #### L 100.0100, L501.5200, L500.4050 ####[facility] [address] [place], [address] AST [Catalytic activity/Vol] 26 U/L Normal <=31 [facility] Comment on above: Performed By: #### L 100.0100, L501.5200, L500.4050 ####[facility] [address] [place], [address] Bilirubin [Mass/Vol] 0.32 mg/dL Normal 0.00-1.30 [facility] Comment on above: Performed By: #### L 100.0100, L501.5200, L500.4050 ####[facility] [address] [place], [address] BUN/CRE 20.4 RATIO High 10-20 [facility] Comment on above: Performed By: #### L 100.0100, L501.5200, L500.4050 ####[facility] [address] [place], [address] Calcium [Mass/Vol] 9.2 mg/dL Normal 7.6-11.0 [facility] Comment on above: Performed By: #### L 100.0100, L501.5200, L500.4050 ####[facility] [address] [place], [address] Chloride [Moles/Vol] 105 mmol/L Normal 98-108 [facility] Comment on above: Performed By: #### L 100.0100, L501.5200, L500.4050 ####[facility] [address] [place], [address] CO2 [Moles/Vol] 23.4 mmol/L Normal 21.0-32.0 [facility] Comment on above: Performed By: #### L 100.0100, L501.5200, L500.4050 ####[facility] [address] [place], [address] Creatinine [Mass/Vol] 0.64 mg/dL Low 0.70-1.20 [facility] Comment on above: Performed By: #### L 100.0100, L501.5200, L500.4050 ####[facility] [address] [place], [address] ECRCL 59.91 ml/min Normal 50-250 [facility] Comment on above: Performed By: #### L 100.0100, L501.5200, L500.4050 ####[facility] [address] [place], [address] GAP 10 Normal 5-15 [facility] Comment on above: Performed By: #### L 100.0100, L501.5200, L500.4050 ####[facility] [address] [place], [address] GFR/1.73 sq M.predicted among non-blacks MDRD (S/P/Bld) [Vol rate/Area] 92 mL/min/{1.73_m2} Normal >60 [facility] Comment on above: Result Comment: mL/m in/1.73m2 CKD-EPI Creatinine Equation (2020) Performed By: #### L 100.0100, L501.5200, L500.4050 ####[facility] [address] [place], [address] Globulin (S) [Mass/Vol] 3.2 g/dL Normal 2.2-4.2 [facility] Comment on above: Performed By: #### L 100.0100, L501.5200, L500.4050 ####[facility] [address] [place], [address] Glucose [Mass/Vol] 123 mg/dL High 70-99 [facility] Comment on above: Performed By: #### L 100.0100, L501.5200, L500.4050 ####[facility] [address] [place], [address] Potassium [Moles/Vol] 4.2 mmol/L Normal 3.3-5.1 [facility] Comment on above: Performed By: #### L 100.0100, L501.5200, L500.4050 ####[facility] [address] [place], [address] Sodium [Moles/Vol] 138 mmol/L Normal 133-145 [facility] Comment on above: Performed By: #### L 100.0100, L501.5200, L500.4050 ####[facility] [address] [place], [address] T PROT 6.9 g/dL Normal 5.9-8.4 [facility] Comment on above: Performed By: #### L 100.0100, L501.5200, [id number] ####[facility] [address] [place], [address] Urea nitrogen [Mass/Vol] 13 mg/dL Normal 4-19 [facility] Comment on above: Performed By: #### L 100.0100, L501.5200, [id number] ####[facility] [address] [place], [address] Eosinophil percentageOrdered By: [place] on 06-27-2025 Eosinophils/100 WBC (Bld) 2.5 % 0-5 [facility] Erythrocyte distribution wid th ratioOrdered By: [place] on 06-27-2025 Erythrocyte distribution width (RBC) [Ratio] 16.8 % High 11.6-14.6 [facility] Erythrocyte distribution wid th standard deviationOrdered By: [place] on 06-27-2025 Erythrocyte distribution width (RBC) [Ratio] 58.7 fl High 35.1-43.9 [facility] Glomerular filtration rate ( GFR) estimation/1.73 sq m using serum, plasma, or whole bOrdered By: [place] on 06-27-2025 GFR/1.73 sq M.predicted among non-blacks MDRD (S/P/Bld) [Vol rate/Area] 92 mL/min/{1.73_m2} >60 [facility] Comment on above: mL/min/1.73m2 CKD-EP I Creatinine Equation (2020) Hematocrit Auto (Bld) [Volum e fraction]Ordered By: [facility] on 06-27-2025 Hematocrit (Bld) [Volume fraction] 34.5 % Low 37-47 [facility] Hemoglobin measurementOrdere d By: [place] on 06-27-2025 Hemoglobin (Bld) [Mass/Vol] 11.4 g/dL Low 12.0-15.0 [facility] Immature granulocytes/100 WB C Auto (Bld)Ordered By: [place] on 06-27-2025 Immature granulocytes/100 WBC (Bld) 0.300 % 0.0-0.9 [facility] Comment on above: IG% - Immature Granu locytes (promyelocytes, myelocytes and metamyelocytes) > 1% indicates that a LEFT SHIFT is Present. Laboratory - Chemistry and C hemistry - challengeOrdered By: [place] on 06-27-2025 AST [Catalytic activity/Vol] 26 U/L <32 [facility] MCV (mean corpuscular volume ) determinationOrdered By: [place] on 06-27-2025 MCV (RBC) [Entitic vol] 95.3 fL 81-99 [facility] Magnesiumon 06-27-2025 Magnesium [Mass/Vol] 2.0 mg/dL Normal 1.5-2.2 [facility] Comment on above: Performed By: #### L 100.0100, L501.5200, L500.4050 ####[facility] [address] [place], [address] Magnesium measurement (mass/ volume)Ordered By: [place] on 06-27-2025 Magnesium (Unsp spec) [Mass/Vol] 2.0 mg/dL 1.5-2.2 [facility] Mean corpuscular hemoglobin (MCH) determinationOrdered By: [place] on 06-27-2025 MCH (RBC) [Entitic mass] 31.5 pg 27.0-32.0 [facility] Mean corpuscular hemoglobin concentration (MCHC) determinationOrdered By: [place] on 06-27-2025 MCHC (RBC) [Mass/Vol] 33.0 g/dL 32-36 [facility] Mean platelet volume determi nationOrdered By: [place] on 06-27-2025 Platelet mean volume (Bld) [Entitic vol] 8.8 fL 6.2-12.0 [facility] Monocyte percentageOrdered B y: [place] on 06-27-2025 Monocytes/100 WBC (Bld) 10.2 % High 0-10 [facility] Neutrophil percentageOrdered By: [place] on 06-27-2025 Neutrophils/100 WBC (Bld) 66.7 % 47-70 [facility] Nucleated red blood cell per centageOrdered By: [place] on 06-27-2025 Nucleated RBC/100 WBC (Bld) [Ratio] 0 % 0-5 [facility] Oncology Visit Reporton 06-03 Oncology Visit Report Normal [facility] Phosphoruson 06-27-2025 Phosphate [Mass/Vol] 3.7 mg/dL Normal 2.7-4.5 [facility] Comment on above: Performed By: #### L 3100.2300, L501.2300 ####[facility] [address] [place], [place], [id number] Platelet countOrdered By: Ru Conn on 06-27-2025 Platelets (Bld) [#/Vol] 219 10*3/uL 150-450 [facility] Potassium measurement (mass/ volume)Ordered By: [place] on 06-27-2025 Potassium (Unsp spec) [Mass/Vol] 4.2 mmol/L 3.3-5.1 [facility] RBC Auto (Bld) [#/Vol]Ordere d By: [place] on 06-27-2025 RBC (Bld) [#/Vol] 3.62 10*6/uL Low 4.2-5.4 [facility] Serum creatinine measurement (mass/volume)Ordered By: [place] on 06-27-2025 Creatinine [Mass/Vol] 0.64 mg/dL Low 0.70-1.20 [facility] Serum globulin measurementOr dered By: [place] on 06-27-2025 Globulin (S) [Mass/Vol] 3.2 g/dL 2.2-4.2 [facility] Serum glucose measurement (m ass/volume)Ordered By: [place] on 06-27-2025 Glucose [Mass/Vol] 123 mg/dL High 70-99 [facility] Serum or plasma alanine rojo otransferase (ALT) measurementOrdered By: [place] on 06-27-2025 ALT [Catalytic activity/Vol] 21 U/L <35 [facility] Serum or plasma albumin alfredo urement (mass/volume)Ordered By: [place] on 06-27-2025 Albumin [Mass/Vol] 3.6 g/dL 3.4-4.8 [facility] Serum or plasma albumin/glob ulin mass ratioOrdered By: [place] on 06-27-2025 Albumin/Globulin [Mass ratio] 1.1 {ratio} 0.9-2.4 [facility] Serum or plasma alkaline marisabel sphatase measurementOrdered By: [place] on 06-27-2025 ALP [Catalytic activity/Vol] 67 U/L 35-104 [facility] Serum or plasma calcium alfredo urement (mass/volume)Ordered By: [place] on 06-27-2025 Calcium [Mass/Vol] 9.2 mg/dL 7.6-11.0 [facility] Serum or plasma carcinoembry onic antigen measurement (mass/volume)Ordered By: [place] on 06-27-2025 Carcinoembryonic Ag [Mass/Vol] 7.9 ng/mL High 0.0-4.7 [facility] Comment on above: Nonsmokers <3.9 Smok ers <5.6[employer] Electrochemiluminescence Immunoassay(ECLIA)Values obtained with different assay methods or kitscannot be used interchangeably. Results cannot beinterpreted as absolute evidence of the presence orabsence of malignant disease.Performed at: [address] [id number] Director: Abimael Sheridan PhD, Phone: [phone] Serum or plasma urea nitroge n measurement (mass/volume)Ordered By: [place] on 06-27-2025 Urea nitrogen [Mass/Vol] 13 mg/dL 4-19 [facility] Sodium levelOrdered By: Kurt Cnon on 06-27-2025 Sodium [Moles/Vol] 138 mmol/L 133-145 [facility] Total proteinOrdered By: Shady Conn on 06-27-2025 Protein [Mass/Vol] 6.9 g/dL 5.9-8.4 [facility] White blood cell (WBC) count Ordered By: [place] on 06-27-2025 WBC (Bld) [#/Vol] 7.1 10*3/uL 4.4-11.0 [facility] Absolute lymphocyte countOrd ered By: [place] on 06-13-2025 Lymphocytes Auto (Unsp spec) [#/Vol] 1.42 10*3/uL 0.83-4.51 [facility] Absolute neutrophil countOrd ered By: [facility] on 06-13-2025 Neutrophils (Bld) [#/Vol] 3.1 10*3/uL 2.0-7.7 [facility] Anion gap in Serum or Plasma Ordered By: [place] on 06-13-2025 Anion gap [Moles/Vol] 11 mmol/L 5-15 [facility] Automated lymphocyte count a s percentage of total leukocytesOrdered By: [place] on 06-13-2025 Lymphocytes/100 WBC Auto (Unsp spec) 25.6 % 19-41 [facility] BUN/creatinine ratioOrdered By: [place] on 06-13-2025 Urea nitrogen/Creatinine [Mass ratio] 19.9 mg/mg 10-20 [facility] Basophil percentageOrdered B y: [place] on 06-13-2025 Basophils/100 WBC (Bld) 0.4 % 0-1 [facility] Bilirubin, totalOrdered By: [place] on 06-13-2025 Bilirubin [Mass/Vol] 0.26 mg/dL 0.00-1.30 [facility] CBC W/Diff, Automatedon 06-02 Absolute Lymph 1.42 X10 3/uL Normal 0.83-4.51 [facility] Comment on above: Performed By: #### L 100.0100, L501.5200, L500.4050 ####[facility] [address] [place], [address] Absolute Neut 3.1 X10 3/uL Normal 2.0-7.7 [facility] Comment on above: Performed By: #### L 100.0100, L501.5200, L500.4050 ####[facility] [address] [place], [address] Basophils/100 WBC (Bld) 0.4 % Normal 0-1 [facility] Comment on above: Performed By: #### L 100.0100, L501.5200, L500.4050 ####[facility] [address] [place], [address] Eosinophils/100 WBC (Bld) 4.3 % Normal 0-5 [facility] Comment on above: Performed By: #### L 100.0100, L501.5200, L500.4050 ####[facility] [address] [place], [address] Erythrocyte distribution width (RBC) [Ratio] 17.2 % High 11.6-14.6 [facility] Comment on above: Performed By: #### L 100.0100, L501.5200, L500.4050 ####[facility] [address] [place], [address] Hematocrit (Bld) [Volume fraction] 34.2 % Low 37-47 [facility] Comment on above: Performed By: #### L 100.0100, L501.5200, L500.4050 ####[facility] [address] [place], [address] Hemoglobin (Bld) [Mass/Vol] 10.8 g/dL Low 12.0-15.0 [facility] Comment on above: Performed By: #### L 100.0100, L501.5200, L500.4050 ####[facility] [address] [place], [address] IG% 0.700 Normal 0.0-0.9 [facility] Comment on above: Result Comment: IG% - Immature Granulocytes (promyelocytes, myelocytes andmetamyelocytes) > 1% indicates that a LEFT SHIFT is Present. Performed By: #### L 100.0100, L501.5200, L500.4050 ####[facility] [address] [place], [address] Lymphocytes/100 WBC (Bld) 25.6 % Normal 19-41 [facility] Comment on above: Performed By: #### L 100.0100, L501.5200, L500.4050 ####[facility] [address] [place], [address] MCH (RBC) [Entitic mass] 30.4 pg Normal 27.0-32.0 [facility] Comment on above: Performed By: #### L 100.0100, L501.5200, L500.4050 ####[facility] [address] [place], [address] MCHC (RBC) [Mass/Vol] 31.6 g/dL Low 32-36 [facility] Comment on above: Performed By: #### L 100.0100, L501.5200, L500.4050 ####[facility] [address] [place], [address] MCV (RBC) [Entitic vol] 96.3 fL Normal 81-99 [facility] Comment on above: Performed By: #### L 100.0100, L501.5200, L500.4050 ####[facility] [address] [place], [address] Monocytes/100 WBC (Bld) 13.2 % High 0-10 [facility] Comment on above: Performed By: #### L 100.0100, L501.5200, L500.4050 ####[facility] [address] [place], [address] Neutrophils/100 WBC (Bld) 55.8 % Normal 47-70 [facility] Comment on above: Performed By: #### L 100.0100, L501.5200, L500.4050 ####[facility] [address] [place], [address] Nucleated RBC (Bld) [#/Vol] 0 10*3/uL Normal 0-5 [facility] Comment on above: Performed By: #### L 100.0100, L501.5200, L500.4050 ####[facility] [address] [place], [address] Platelet mean volume (Bld) [Entitic vol] 8.8 fL Normal 6.2-12.0 [facility] Comment on above: Performed By: #### L 100.0100, L501.5200, L500.4050 ####[facility] [address] [place], [address] Platelets (Bld) [#/Vol] 314 10*3/uL Normal 150-450 [facility] Comment on above: Performed By: #### L 100.0100, L501.5200, L500.4050 ####[facility] [address] [place], [address] RBC (Bld) [#/Vol] 3.55 10*6/uL Low 4.2-5.4 [facility] Comment on above: Performed By: #### L 100.0100, L501.5200, L500.4050 ####[facility] [address] [place], [address] RDW SD 60.3 fl High 35.1-43.9 [facility] Comment on above: Performed By: #### L 100.0100, L501.5200, L500.4050 ####[facility] [address] [place], [address] WBC (Bld) [#/Vol] 5.5 10*3/uL Normal 4.4-11.0 [facility] Comment on above: Performed By: #### L 100.0100, L501.5200, L500.4050 ####[facility] [address] [place], [address] Carbon dioxide, total [Moles /volume] in Central venous bloodOrdered By: [place] on 06-13-2025 CO2 [Moles/Vol] 21.4 mmol/L 21.0-32.0 [facility] Chloride assayOrdered By: Ru Conn on 06-13-2025 Chloride [Moles/Vol] 107 mmol/L 98-108 [facility] Comprehensive Metabolic Prof ilon 06-13-2025 Albumin [Mass/Vol] 3.3 g/dL Low 3.4-4.8 [facility] Comment on above: Performed By: #### L 100.0100, L501.5200, L500.4050 ####[facility] [address] [place], [address] Albumin/Globulin [Mass ratio] 1.0 {ratio} Normal 0.9-2.4 [facility] Comment on above: Performed By: #### L 100.0100, L501.5200, L500.4050 ####[facility] [address] [place], [address] ALK PHOS 66 U/L Normal 35-104 [facility] Comment on above: Performed By: #### L 100.0100, L501.5200, L500.4050 ####[facility] [address] [place], [address] ALT [Catalytic activity/Vol] 6 U/L Normal <=34 [facility] Comment on above: Performed By: #### L 100.0100, L501.5200, L500.4050 ####[facility] [address] [place], [address] AST [Catalytic activity/Vol] 24 U/L Normal <=31 [facility] Comment on above: Performed By: #### L 100.0100, L501.5200, L500.4050 ####[facility] [address] [place], [address] Bilirubin [Mass/Vol] 0.26 mg/dL Normal 0.00-1.30 [facility] Comment on above: Performed By: #### L 100.0100, L501.5200, L500.4050 ####[facility] [address] [place], [address] BUN/CRE 19.9 RATIO Normal 10-20 [facility] Comment on above: Performed By: #### L 100.0100, L501.5200, L500.4050 ####[facility] [address] [place], [address] Calcium [Mass/Vol] 9.1 mg/dL Normal 7.6-11.0 [facility] Comment on above: Performed By: #### L 100.0100, L501.5200, L500.4050 ####[facility] [address] [place], [address] Chloride [Moles/Vol] 107 mmol/L Normal 98-108 [facility] Comment on above: Performed By: #### L 100.0100, L501.5200, L500.4050 ####[facility] [address] [place], [address] CO2 [Moles/Vol] 21.4 mmol/L Normal 21.0-32.0 [facility] Comment on above: Performed By: #### L 100.0100, L501.5200, L500.4050 ####[facility] [address] [place], [address] Creatinine [Mass/Vol] 0.62 mg/dL Low 0.70-1.20 [facility] Comment on above: Performed By: #### L 100.0100, L501.5200, L500.4050 ####[facility] [address] [place], [address] ECRCL 59.84 ml/min Normal 50-250 [facility] Comment on above: Performed By: #### L 100.0100, L501.5200, L500.4050 ####[facility] [address] [place], [address] GAP 11 Normal 5-15 [facility] Comment on above: Performed By: #### L 100.0100, L501.5200, L500.4050 ####[facility] [address] [place], [address] GFR/1.73 sq M.predicted among non-blacks MDRD (S/P/Bld) [Vol rate/Area] 93 mL/min/{1.73_m2} Normal >60 [facility] Comment on above: Result Comment: mL/m in/1.73m2 CKD-EPI Creatinine Equation (2020) Performed By: #### L 100.0100, L501.5200, L500.4050 ####[facility] [address] [place], [address] Globulin (S) [Mass/Vol] 3.4 g/dL Normal 2.2-4.2 [facility] Comment on above: Performed By: #### L 100.0100, L501.5200, L500.4050 ####[facility] [address] [place], [address] Glucose [Mass/Vol] 126 mg/dL High 70-99 [facility] Comment on above: Performed By: #### L 100.0100, L501.5200, L500.4050 ####[facility] [address] [place], [address] Potassium [Moles/Vol] 3.9 mmol/L Normal 3.3-5.1 [facility] Comment on above: Performed By: #### L 100.0100, L501.5200, L500.4050 ####[facility] [address] [place], [address] Sodium [Moles/Vol] 140 mmol/L Normal 133-145 [facility] Comment on above: Performed By: #### L 100.0100, L501.5200, L500.4050 ####[facility] [address] [place], [address] T PROT 6.7 g/dL Normal 5.9-8.4 [facility] Comment on above: Performed By: #### L 100.0100, L501.5200, L500.4050 ####[facility] [address] [place], [address] Urea nitrogen [Mass/Vol] 12 mg/dL Normal 4-19 [facility] Comment on above: Performed By: #### L 100.0100, L501.5200, L500.4050 ####[facility] [address] [place], [address] Eosinophil percentageOrdered By: [facility] Health[facility] on 06-13-2025 Eosinophils/100 WBC (Bld) 4.3 % 0-5 [facility] Erythrocyte distribution wid th ratioOrdered By: [place] on 06-13-2025 Erythrocyte distribution width (RBC) [Ratio] 17.2 % High 11.6-14.6 [facility] Erythrocyte distribution wid th standard deviationOrdered By: [facility] Health[facility] on 06-13-2025 Erythrocyte distribution width (RBC) [Ratio] 60.3 fl High 35.1-43.9 [facility] Glomerular filtration rate ( GFR) estimation/1.73 sq m using serum, plasma, or whole bOrdered By: [place] on 06-13-2025 GFR/1.73 sq M.predicted among non-blacks MDRD (S/P/Bld) [Vol rate/Area] 93 mL/min/{1.73_m2} >60 [facility] Comment on above: mL/min/1.73m2 CKD-EP I Creatinine Equation (2020) Hematocrit Auto (Bld) [Volum e fraction]Ordered By: [facility] on 06-13-2025 Hematocrit (Bld) [Volume fraction] 34.2 % Low 37-47 [facility] Hemoglobin measurementOrdere d By: [place] on 06-13-2025 Hemoglobin (Bld) [Mass/Vol] 10.8 g/dL Low 12.0-15.0 [facility] Immature granulocytes/100 WB C Auto (Bld)Ordered By: [place] on 06-13-2025 Immature granulocytes/100 WBC (Bld) 0.700 % 0.0-0.9 [facility] Comment on above: IG% - Immature Granu locytes (promyelocytes, myelocytes and metamyelocytes) > 1% indicates that a LEFT SHIFT is Present. Laboratory - Chemistry and C hemistry - challengeOrdered By: [place] on 06-13-2025 AST [Catalytic activity/Vol] 24 U/L <32 [facility] MCV (mean corpuscular volume ) determinationOrdered By: [place] on 06-13-2025 MCV (RBC) [Entitic vol] 96.3 fL 81-99 [facility] Magnesiumon 06-13-2025 Magnesium [Mass/Vol] 2.0 mg/dL Normal 1.5-2.2 [facility] Comment on above: Performed By: #### L 100.0100, L501.5200, L500.4050 ####[facility] [address] [place], [address] Magnesium measurement (mass/ volume)Ordered By: [place] on 06-13-2025 Magnesium (Unsp spec) [Mass/Vol] 2.0 mg/dL 1.5-2.2 [facility] Mean corpuscular hemoglobin (MCH) determinationOrdered By: [place] on 06-13-2025 MCH (RBC) [Entitic mass] 30.4 pg 27.0-32.0 [facility] Mean corpuscular hemoglobin concentration (MCHC) determinationOrdered By: [place] on 06-13-2025 MCHC (RBC) [Mass/Vol] 31.6 g/dL Low 32-36 [facility] Mean platelet volume determi nationOrdered By: [place] on 06-13-2025 Platelet mean volume (Bld) [Entitic vol] 8.8 fL 6.2-12.0 [facility] Monocyte percentageOrdered B y: [place] on 06-13-2025 Monocytes/100 WBC (Bld) 13.2 % High 0-10 [facility] Neutrophil percentageOrdered By: [place] on 06-13-2025 Neutrophils/100 WBC (Bld) 55.8 % 47-70 [facility] Nucleated red blood cell per centageOrdered By: [place] on 06-13-2025 Nucleated RBC/100 WBC (Bld) [Ratio] 0 % 0-5 [facility] Oncology Visit Reporton 06-02 Oncology Visit Report Normal [facility] Platelet countOrdered By: Ru Conn on 06-13-2025 Platelets (Bld) [#/Vol] 314 10*3/uL 150-450 [facility] Potassium measurement (mass/ volume)Ordered By: [place] on 06-13-2025 Potassium (Unsp spec) [Mass/Vol] 3.9 mmol/L 3.3-5.1 [facility] RBC Auto (Bld) [#/Vol]Ordere d By: [place] on 06-13-2025 RBC (Bld) [#/Vol] 3.55 10*6/uL Low 4.2-5.4 [facility] Serum creatinine measurement (mass/volume)Ordered By: [place] on 06-13-2025 Creatinine [Mass/Vol] 0.62 mg/dL Low 0.70-1.20 [facility] Serum globulin measurementOr dered By: [place] on 06-13-2025 Globulin (S) [Mass/Vol] 3.4 g/dL 2.2-4.2 [facility] Serum glucose measurement (m ass/volume)Ordered By: [place] on 06-13-2025 Glucose [Mass/Vol] 126 mg/dL High 70-99 [facility] Serum or plasma alanine rojo otransferase (ALT) measurementOrdered By: [place] on 06-13-2025 ALT [Catalytic activity/Vol] 6 U/L <35 [facility] Serum or plasma albumin alfredo urement (mass/volume)Ordered By: [place] on 06-13-2025 Albumin [Mass/Vol] 3.3 g/dL Low 3.4-4.8 [facility] Serum or plasma albumin/glob ulin mass ratioOrdered By: [place] on 06-13-2025 Albumin/Globulin [Mass ratio] 1.0 {ratio} 0.9-2.4 [facility] Serum or plasma alkaline marisabel sphatase measurementOrdered By: [place] on 06-13-2025 ALP [Catalytic activity/Vol] 66 U/L 35-104 [facility] Serum or plasma calcium alfredo urement (mass/volume)Ordered By: [place] on 06-13-2025 Calcium [Mass/Vol] 9.1 mg/dL 7.6-11.0 [facility] Serum or plasma urea nitroge n measurement (mass/volume)Ordered By: New Galiciaus on 06-13-2025 Urea nitrogen [Mass/Vol] 12 mg/dL 4-19 [facility] Sodium levelOrdered By: Kurt mejia Grayson on 06-13-2025 Sodium [Moles/Vol] 140 mmol/L 133-145 [facility] Total proteinOrdered By: Shady burroughs Senia on 06-13-2025 Protein [Mass/Vol] 6.7 g/dL 5.9-8.4 [facility] White blood cell (WBC) count Ordered By: [place] on 06-13-2025 WBC (Bld) [#/Vol] 5.5 10*3/uL 4.4-11.0 [facility] Echo Completeon 06-05-2025 Echo Complete Normal [facility] Echocardiogram study reportO rdered By: Marty Brown on 06-05-2025 Study report [facility] [address] [place] [address] Echo Complete 06/05/25 1310 MR#: [id number] Acct: [id number] Name: JESSIKA CARRILLO Rep #:[id number] : 1950 74 From: Marty Shannon Attending Dr: JUVENTINO Pérez atus: REG CLI Ordering Dr: Shu Chow Date : 06/05/25 Location: [facility] Sex: F C Admitted: Reason For Study Reason For Study: ATRIAL FLUTTER Procedure This was a 2D Doppler, Color Flow transthoracic echocardiogram. Myocardial strain analysis was performed in this exam to aid in the assessment of cardiac function. Exam performed in department. Left Ventricle Normal LV size. The left ventricular ejection fraction is 60 %. No regional wallmotion abnormalities noted. Right Ventricle Normal RV size. Normal systolic function. Atria Normal left atrium. Normal right atrium. Mitral Valve Normal mitral valve. Tricuspid Valve Normal tricuspid valve. Mild (1+) tricuspid valve insufficiency. Pulmonary artery systolic pressure is 23 mmHg. Aortic Valve Trisinus/trileaflet aortic valve. Mild focal aortic valve calcification. Pulmonic Valve Normal pulmonic valve. Great Vessels Normal aortic root. The pulmonary artery is normal size. Inferior vena cava collapse with respiration. Pericardium/Pleural No pericardial effusion. MMode/2D Measurements & Calculations LVIDd: 4.0 cm IVSd: 1.1 cm LVOT diam: 2.0 cm LVIDs: 2.5 cm LVPWd: 0.76 cm LVOT area: 3.1 cm2 RVDd: 2.8 cm FS: 37.1 % asc Aorta Diam: 3.2 cm LAV(MOD-bp): 19.4 ml LVAd ap4: 18.4 cm2 LAV(MOD-bp) Indexed: 10.7 ml/m2 LVLd ap4: 6.7 cm LAV(MOD-sp2): 18.0 ml EDV(MOD-sp4): 42.3 ml LAV(MOD-sp4): 21.5 ml EDV(sp4-el): 42.7 ml LVAs ap4: 10.8 cm2 LVLs ap4: 5.8 cm ESV(MOD-sp4): 17.3 ml ESV(sp4-el): 17.2 ml EF(MOD-sp4): 59.2 % EF(sp4-el): 59.6 % __ LVAd ap2: 17.3 cm2 SV(MOD-sp4): 25.0 ml SV(MOD-sp2): 20.4 ml LVLd ap2: 6.6 cm SI(MOD-sp4): 13.9 ml/m2 SI(MOD-sp2): 11.3 ml/m2 EDV(MOD-sp2): 37.4 ml EDV(sp2-el): 38.5 ml LVAs ap2: 10.8 cm2 LVLs ap2: 5.6 cm ESV(MOD-sp2): 17.0 ml ESV(sp2-el): 17.5 ml EF(MOD-sp2): 54.6 % SV(sp4-el): 25.5 ml Ao sinus diam: 3.[address] Junction: 2.6 cm _ LA dimension(2D): 3.3 cm LA A4 area: 10.5 cm2 RA A4 area: 9.6 cm2 __ TAPSE: 1.8 cm Time Measurements MV dec time: 0.16 sec Doppler Measurements & Calculations MV E max vandana: 82.0 cm/sec Lat Peak E' Vandana: 9.5 cm/sec Med Peak E' Vandana: 9.3 cm/sec MV A max vandana: 78.3 cm/sec E/E' lat: 8.6 E/E' med: 8.8 MV E/A: 1.0 __ MV dec slope: 520.5 cm/sec2 Ao V2 max: 103.6 cm/sec LV V1 max: 89.9 cm/sec Ao max P.3 mmHg LV V1 max P.2 mmHg Ao V2 mean: 79.1 cm/sec LV V1 mean P.2 mmHg Ao mean P.7 mmHg LV V1 mean: 73.4 cm/sec Ao V2 VTI: 21.7 cm LV V1 VTI: 17.6 cm AV (velocity ratio): 0.81 LINETTE(I,D): 2.5 cm2 LINETTE(V,D): 2.7 cm2 __ SV(LVOT): 54.4 ml PA V2 max: 73.1 cm/sec TR max vandana: 220.7 cm/sec TR max P.5 mmHg ECHO/Echo Complete Interpretation Summary The left ventricular ejection fraction is 60 %. Normal LV size. Structurally normal valves. The global longitudinal strain is borderline abnormal. The global longitudinal strain = -16% (abnormal). Ordering Physician: Chow, Shu Referring Physician: Shu Chow Performed By: Carlie Bell, ANABELLA 06/05/251715 Date _ Marty Brown MD CC: Shu Chow PA ~ Date Dictated: 06/05/25 1310 Date Transcribed: 06/05/251715 Loop Puller: Signed [facility] Work Phone: [phone] Absolute lymphocyte countOrd ered By: [place] on 05-30-2025 Lymphocytes Auto (Unsp spec) [#/Vol] 1.73 10*3/uL 0.83-4.51 [facility] Absolute neutrophil countOrd ered By: [facility] on 05-30-2025 Neutrophils (Bld) [#/Vol] 4.1 10*3/uL 2.0-7.7 [facility] Anion gap in Serum or Plasma Ordered By: [facility] on 05-30-2025 Anion gap [Moles/Vol] 11 mmol/L 5-15 [facility] Automated lymphocyte count a s percentage of total leukocytesOrdered By: [facility] on 05-30-2025 Lymphocytes/100 WBC Auto (Unsp spec) 26.1 % 19-41 [facility] BUN/creatinine ratioOrdered By: [facility] on 05-30-2025 Urea nitrogen/Creatinine [Mass ratio] 19.7 mg/mg 10-20 [facility] Basophil percentageOrdered B y: [place] on 05-30-2025 Basophils/100 WBC (Bld) 1.7 % High 0-1 [facility] Bilirubin, totalOrdered By: [facility] on 05-30-2025 Bilirubin [Mass/Vol] 0.21 mg/dL 0.00-1.30 [facility] CBC W/Diff, Automatedon 07- Absolute Lymph 1.73 X10 3/uL Normal 0.83-4.51 [facility] Comment on above: Performed By: #### L 100.0100, L501.5200, L500.4050 ####[facility] [address] [place], [address] Absolute Neut 4.1 X10 3/uL Normal 2.0-7.7 [facility] Comment on above: Performed By: #### L 100.0100, L501.5200, L500.4050 ####[facility] [address] [place], [address] Basophils/100 WBC (Bld) 1.7 % High 0-1 [facility] Comment on above: Performed By: #### L 100.0100, L501.5200, L500.4050 ####[facility] [address] [place], [address] Eosinophils/100 WBC (Bld) 0.6 % Normal 0-5 [facility] Comment on above: Performed By: #### L 100.0100, L501.5200, L500.4050 ####[facility] [address] [place], [address] Erythrocyte distribution width (RBC) [Ratio] 17.1 % High 11.6-14.6 [facility] Comment on above: Performed By: #### L 100.0100, L501.5200, L500.4050 ####[facility] [address] [place], [address] Hematocrit (Bld) [Volume fraction] 34.2 % Low 37-47 [facility] Comment on above: Performed By: #### L 100.0100, L501.5200, L500.4050 ####[facility] [address] [place], [address] Hemoglobin (Bld) [Mass/Vol] 10.8 g/dL Low 12.0-15.0 [facility] Comment on above: Performed By: #### L 100.0100, L501.5200, L500.4050 ####[facility] [address] [place], [address] IG% 1.100 High 0.0-0.9 [facility] Comment on above: Result Comment: IG% - Immature Granulocytes (promyelocytes, myelocytes andmetamyelocytes) > 1% indicates that a LEFT SHIFT is Present. Performed By: #### L 100.0100, L501.5200, L500.4050 ####[facility] [address] [place], [address] Lymphocytes/100 WBC (Bld) 26.1 % Normal 19-41 [facility] Comment on above: Performed By: #### L 100.0100, L501.5200, L500.4050 ####[facility] [address] [place], [address] MCH (RBC) [Entitic mass] 30.3 pg Normal 27.0-32.0 [facility] Comment on above: Performed By: #### L 100.0100, L501.5200, L500.4050 ####[facility] [address] [place], [address] MCHC (RBC) [Mass/Vol] 31.6 g/dL Low 32-36 [facility] Comment on above: Performed By: #### L 100.0100, L501.5200, L500.4050 ####[facility] [address] [place], [address] MCV (RBC) [Entitic vol] 95.8 fL Normal 81-99 [facility] Comment on above: Performed By: #### L 100.0100, L501.5200, L500.4050 ####[facility] [address] [place], [address] Monocytes/100 WBC (Bld) 8.7 % Normal 0-10 [facility] Comment on above: Performed By: #### L 100.0100, L501.5200, L500.4050 ####[facility] [address] [place], [address] Neutrophils/100 WBC (Bld) 61.8 % Normal 47-70 [facility] Comment on above: Performed By: #### L 100.0100, L501.5200, L500.4050 ####[facility] [address] [place], [address] Nucleated RBC (Bld) [#/Vol] 0 10*3/uL Normal 0-5 [facility] Comment on above: Performed By: #### L 100.0100, L501.5200, L500.4050 ####[facility] [address] [place], [address] Platelet mean volume (Bld) [Entitic vol] 8.5 fL Normal 6.2-12.0 [facility] Comment on above: Performed By: #### L 100.0100, L501.5200, L500.4050 ####[facility] [address] [place], [address] Platelets (Bld) [#/Vol] 397 10*3/uL Normal 150-450 [facility] Comment on above: Performed By: #### L 100.0100, L501.5200, L500.4050 ####[facility] [address] [place], [address] RBC (Bld) [#/Vol] 3.57 10*6/uL Low 4.2-5.4 [facility] Comment on above: Performed By: #### L 100.0100, L501.5200, L500.4050 ####[facility] [address] [place], [address] RDW SD 59.0 fl High 35.1-43.9 [facility] Comment on above: Performed By: #### L 100.0100, L501.5200, L500.4050 ####[facility] [address] [place], [address] WBC (Bld) [#/Vol] 6.6 10*3/uL Normal 4.4-11.0 [facility] Comment on above: Performed By: #### L 100.0100, L501.5200, L500.4050 ####[facility] [address] [place], [address] Carbon dioxide, total [Moles /volume] in Central venous bloodOrdered By: [place] on 05-30-2025 CO2 [Moles/Vol] 23.4 mmol/L 21.0-32.0 [facility] Chloride assayOrdered By: Ru Conn on 05-30-2025 Chloride [Moles/Vol] 104 mmol/L 98-108 [facility] Comprehensive Metabolic Prof ilon 05-30-2025 Albumin [Mass/Vol] 2.9 g/dL Low 3.4-4.8 [facility] Comment on above: Performed By: #### L 100.0100, L501.5200, L500.4050 ####[facility] [address] [place], [address] Albumin/Globulin [Mass ratio] 0.9 {ratio} Normal 0.9-2.4 [facility] Comment on above: Performed By: #### L 100.0100, L501.5200, L500.4050 ####[facility] [address] [place], [address] ALK PHOS 69 U/L Normal 35-104 [facility] Comment on above: Performed By: #### L 100.0100, L501.5200, L500.4050 ####[facility] [address] [place], [address] ALT [Catalytic activity/Vol] 13 U/L Normal <=34 [facility] Comment on above: Performed By: #### L 100.0100, L501.5200, L500.4050 ####[facility] [address] [place], [address] AST [Catalytic activity/Vol] 25 U/L Normal <=31 [facility] Comment on above: Performed By: #### L 100.0100, L501.5200, L500.4050 ####[facility] [address] [place], [address] Bilirubin [Mass/Vol] 0.21 mg/dL Normal 0.00-1.30 [facility] Comment on above: Performed By: #### L 100.0100, L501.5200, L500.4050 ####[facility] [address] [place], [address] BUN/CRE 19.7 RATIO Normal 10-20 [facility] Comment on above: Performed By: #### L 100.0100, L501.5200, L500.4050 ####[facility] [address] [place], [address] Calcium [Mass/Vol] 8.6 mg/dL Normal 7.6-11.0 [facility] Comment on above: Performed By: #### L 100.0100, L501.5200, L500.4050 ####[facility] [address] [place], [address] Chloride [Moles/Vol] 104 mmol/L Normal 98-108 [facility] Comment on above: Performed By: #### L 100.0100, L501.5200, L500.4050 ####[facility] [address] [place], [address] CO2 [Moles/Vol] 23.4 mmol/L Normal 21.0-32.0 [facility] Comment on above: Performed By: #### L 100.0100, L501.5200, L500.4050 ####[facility] [address] [place], [address] Creatinine [Mass/Vol] 0.66 mg/dL Low 0.70-1.20 [facility] Comment on above: Performed By: #### L 100.0100, L501.5200, L500.4050 ####[facility] [address] [place], [address] ECRCL 60.24 ml/min Normal 50-250 [facility] Comment on above: Performed By: #### L 100.0100, L501.5200, L500.4050 ####[facility] [address] [place], [address] GAP 11 Normal 5-15 [facility] Comment on above: Performed By: #### L 100.0100, L501.5200, L500.4050 ####[facility] [address] [place], [address] GFR/1.73 sq M.predicted among non-blacks MDRD (S/P/Bld) [Vol rate/Area] 92 mL/min/{1.73_m2} Normal >60 [facility] Comment on above: Result Comment: mL/m in/1.73m2 CKD-EPI Creatinine Equation (2020) Performed By: #### L 100.0100, L501.5200, L500.4050 ####[facility] [address] [place], [address] Globulin (S) [Mass/Vol] 3.3 g/dL Normal 2.2-4.2 [facility] Comment on above: Performed By: #### L 100.0100, L501.5200, L500.4050 ####[facility] [address] [place], [address] Glucose [Mass/Vol] 147 mg/dL High 70-99 [facility] Comment on above: Performed By: #### L 100.0100, L501.5200, L500.4050 ####[facility] [address] [place], [address] Potassium [Moles/Vol] 4.5 mmol/L Normal 3.3-5.1 [facility] Comment on above: Performed By: #### L 100.0100, L501.5200, L500.4050 ####[facility] [address] [place], [address] Sodium [Moles/Vol] 138 mmol/L Normal 133-145 [facility] Comment on above: Performed By: #### L 100.0100, L501.5200, L500.4050 ####[facility] [address] [place], [address] T PROT 6.2 g/dL Normal 5.9-8.4 [facility] Comment on above: Performed By: #### L 100.0100, L501.5200, L500.4050 ####[facility] [address] [place], [address] Urea nitrogen [Mass/Vol] 13 mg/dL Normal 4-19 [facility] Comment on above: Performed By: #### L 100.0100, L501.5200, L500.4050 ####[facility] [address] [place], [address] Eosinophil percentageOrdered By: [place] on 05-30-2025 Eosinophils/100 WBC (Bld) 0.6 % 0-5 [facility] Erythrocyte distribution wid th ratioOrdered By: [place] on 05-30-2025 Erythrocyte distribution width (RBC) [Ratio] 17.1 % High 11.6-14.6 [facility] Erythrocyte distribution wid th standard deviationOrdered By: [place] on 05-30-2025 Erythrocyte distribution width (RBC) [Ratio] 59.0 fl High 35.1-43.9 [facility] Glomerular filtration rate ( GFR) estimation/1.73 sq m using serum, plasma, or whole bOrdered By: [facility] on 05-30-2025 GFR/1.73 sq M.predicted among non-blacks MDRD (S/P/Bld) [Vol rate/Area] 92 mL/min/{1.73_m2} >60 [facility] Comment on above: mL/min/1.73m2 CKD-EP I Creatinine Equation (2020) Hematocrit Auto (Bld) [Volum e fraction]Ordered By: [facility] on 05-30-2025 Hematocrit (Bld) [Volume fraction] 34.2 % Low 37-47 [facility] Hemoglobin measurementOrdere d By: [facility] on 05-30-2025 Hemoglobin (Bld) [Mass/Vol] 10.8 g/dL Low 12.0-15.0 [facility] Immature granulocytes/100 WB C Auto (Bld)Ordered By: [facility] on 05-30-2025 Immature granulocytes/100 WBC (Bld) 1.100 % High 0.0-0.9 [facility] Comment on above: IG% - Immature Granu locytes (promyelocytes, myelocytes and metamyelocytes) > 1% indicates that a LEFT SHIFT is Present. Laboratory - Chemistry and C hemistry - challengeOrdered By: [facility] 05-30-2025 AST [Catalytic activity/Vol] 25 U/L <32 [facility] MCV (mean corpuscular volume ) determinationOrdered By: [facility] on 05-30-2025 MCV (RBC) [Entitic vol] 95.8 fL 81-99 [facility] Magnesiumon 05-30-2025 Magnesium [Mass/Vol] 2.1 mg/dL Normal 1.5-2.2 [facility] Comment on above: Performed By: #### L 100.0100, L501.5200, L500.4050 ####[facility] [address] [place], [place], [id number] Magnesium measurement (mass/ volume)Ordered By: [place] on 05-30-2025 Magnesium (Unsp spec) [Mass/Vol] 2.1 mg/dL 1.5-2.2 [facility] Mean corpuscular hemoglobin (MCH) determinationOrdered By: [place] on 05-30-2025 MCH (RBC) [Entitic mass] 30.3 pg 27.0-32.0 [facility] Mean corpuscular hemoglobin concentration (MCHC) determinationOrdered By: [place] on 05-30-2025 MCHC (RBC) [Mass/Vol] 31.6 g/dL Low 32-36 [facility] Mean platelet volume determi nationOrdered By: [place] on 05-30-2025 Platelet mean volume (Bld) [Entitic vol] 8.5 fL 6.2-12.0 [facility] Monocyte percentageOrdered B y: [place] on 05-30-2025 Monocytes/100 WBC (Bld) 8.7 % 0-10 [facility] Neutrophil percentageOrdered By: [place] on 05-30-2025 Neutrophils/100 WBC (Bld) 61.8 % 47-70 [facility] Nucleated red blood cell per centageOrdered By: [place] on 05-30-2025 Nucleated RBC/100 WBC (Bld) [Ratio] 0 % 0-5 [facility] Oncology Visit Reporton 05-03 Oncology Visit Report Normal [facility] Platelet countOrdered By: Ru [place] on 05-30-2025 Platelets (Bld) [#/Vol] 397 10*3/uL 150-450 [facility] Potassium measurement (mass/ volume)Ordered By: [place] on 05-30-2025 Potassium (Unsp spec) [Mass/Vol] 4.5 mmol/L 3.3-5.1 [facility] RBC Auto (Bld) [#/Vol]Ordere d By: [place] on 05-30-2025 RBC (Bld) [#/Vol] 3.57 10*6/uL Low 4.2-5.4 [facility] Serum creatinine measurement (mass/volume)Ordered By: [place] on 05-30-2025 Creatinine [Mass/Vol] 0.66 mg/dL Low 0.70-1.20 [facility] Serum globulin measurementOr dered By: [place] on 05-30-2025 Globulin (S) [Mass/Vol] 3.3 g/dL 2.2-4.2 [facility] Serum glucose measurement (m ass/volume)Ordered By: [place] on 05-30-2025 Glucose [Mass/Vol] 147 mg/dL High 70-99 [facility] Serum or plasma alanine rojo otransferase (ALT) measurementOrdered By: [place] on 05-30-2025 ALT [Catalytic activity/Vol] 13 U/L <35 [facility] Serum or plasma albumin alfredo urement (mass/volume)Ordered By: [place] on 05-30-2025 Albumin [Mass/Vol] 2.9 g/dL Low 3.4-4.8 [facility] Serum or plasma albumin/glob ulin mass ratioOrdered By: [place] on 05-30-2025 Albumin/Globulin [Mass ratio] 0.9 {ratio} 0.9-2.4 [facility] Serum or plasma alkaline marisabel sphatase measurementOrdered By: [place] on 05-30-2025 ALP [Catalytic activity/Vol] 69 U/L 35-104 [facility] Serum or plasma calcium alfredo urement (mass/volume)Ordered By: [place] on 05-30-2025 Calcium [Mass/Vol] 8.6 mg/dL 7.6-11.0 [facility] Serum or plasma urea nitroge n measurement (mass/volume)Ordered By: [place] on 05-30-2025 Urea nitrogen [Mass/Vol] 13 mg/dL 4-19 [facility] Sodium levelOrdered By: Kurt Conn on 05-30-2025 Sodium [Moles/Vol] 138 mmol/L 133-145 [facility] Total proteinOrdered By: Shady Conn on 05-30-2025 Protein [Mass/Vol] 6.2 g/dL 5.9-8.4 [facility] White blood cell (WBC) count Ordered By: [place] on 05-30-2025 WBC (Bld) [#/Vol] 6.6 10*3/uL 4.4-11.0 Claire yan [facility] CULTURE, URINE, ROUTINEon CULTURE, URINE, ROUTINE SEE NOTE Normal [facility] Comment on above: Result Comment: CULTURE, URINE, ROUTINE Micro Number: [id number] Test Status: Final Specimen Source: Urine Specimen Quality: Adequate Result: Mixed genital keny isolated. These superficial bacteria are not indicative of a urinary tract infection. No further organism identification is warranted on this specimen. If clinically indicated, recollect clean-catch, mid-stream urine and transfer immediately to Urine Culture Transport Tube. Performed By: #### 3 95 #### [facility] [address], [address] [place] [id number] Moving Van Driver: Esteban Shen MD Laboratory - Chemistry and C hemistry - challengeon 05-22-2025 Bilirubin Ql (U) Negative Normal [employer] Ketones Ql (U) Negative Normal [employer] [facility] [employer] [employer] pH (U) 6.0 [pH] Normal [employer] [facility] [employer], [employer] Specific gravity (U) [Rel density] 1.020 Normal [facility] [employer] [employer] Urobilinogen Qn (U) 0.2 mg/dL Normal [employer], [employer] Laboratory - Hematology and Cell countson 05-22-2025 Hemoglobin Ql (U) Negative Normal [employer] [facility] [employer] Laboratory - Specimen inform ationon 05-22-2025 Appearance (U) clear Normal [employer] [facility] [employer] [employer] Color (U) yellow Normal [employer] [facility] [employer] Laboratory - Urinalysison Glucose Test strip (U) [Mass/Vol] Negative Normal [employer] [facility] [employer] Leukocyte esterase Test strip Ql (U) trace Normal [employer] [facility] [employer] Nitrite Ql (U) Negative Normal [facility]; [facility], [facility] Protein Ql (U) 30 mg/dL Abnormal [facility], [facility] No Panel Informationon 05-22 CULTURE, URINE, ROUTINE SEE NOTE Normal [facility]. Culture, Blood (WB)on 2024 CUB Blood cultures x2, f rom two different sites No growth in 5 days. Normal [facility] Comment on above: Performed By: #### M 200.1000 ####[facility] [address] [place], [address] CBC W/Diff, Automatedon 05-02 Absolute Neut Normal 2.0-7.7 [facility] Comment on above: Result Comment: Canc elled via OM: Patient Ill Performed By: #### L 100.0100, L500.4050 ####[facility] [address] [place], [address] HCT Normal 37-47 [facility] Comment on above: Result Comment: Canc elled via OM: Patient Ill Performed By: #### L 100.0100, L500.4050 ####[facility] [address] [place], [address] HGB Normal 12.0-15.0 [facility] Comment on above: Result Comment: Canc elled via OM: Patient Ill Performed By: #### L 100.0100, L500.4050 ####[facility] [address] [place], [address] MCH Normal 27.0-32.0 [facility] Comment on above: Result Comment: Canc elled via OM: Patient Ill Performed By: #### L 100.0100, L500.4050 ####[facility] [address] [place], [address] MCHC Normal 32-36 [facility] Comment on above: Result Comment: Canc elled via OM: Patient Ill Performed By: #### L 100.0100, L500.4050 ####[facility] [address] [place], [address] MCV Normal 81-99 [facility] Comment on above: Result Comment: Canc elled via OM: Patient Ill Performed By: #### L 100.0100, L500.4050 ####[facility] [address] [place], [address] NEUT% Normal 47-70 [facility] Comment on above: Result Comment: Canc elled via OM: Patient Ill Performed By: #### L 100.0100, L500.4050 ####[facility] [address] [place], [address] PLT Normal 150-450 [facility] Comment on above: Result Comment: Canc elled via OM: Patient Ill Performed By: #### L 100.0100, L500.4050 ####[facility] [address] [place], [address] RBC Normal 4.2-5.4 [facility] Comment on above: Result Comment: Canc elled via OM: Patient Ill Performed By: #### L 100.0100, L500.4050 ####[facility] [address] [place], [address] RDW CV Normal 11.6-14.6 [facility] Comment on above: Result Comment: Canc elled via OM: Patient Ill Performed By: #### L 100.0100, L500.4050 ####[facility] [address] [place], [address] RDW SD Normal 35.1-43.9 [facility] Comment on above: Result Comment: Canc elled via OM: Patient Ill Performed By: #### L 100.0100, L500.4050 ####[facility] [address] [place], [address] WBC Normal 4.4-11.0 [facility] Comment on above: Result Comment: Canc elled via OM: Patient Ill Performed By: #### L 100.0100, L500.4050 ####[facility] [address] [place], [address] Comprehensive Metabolic Prof ilon 05-16-2025 ALB Normal 3.4-4.8 [facility] Comment on above: Result Comment: Canc elled via OM: Patient Ill Performed By: #### L 100.0100, L500.4050 ####[facility] [address] [place], [address] ALK PHOS Normal 35-104 [facility] Comment on above: Result Comment: Canc elled via OM: Patient Ill Performed By: #### L 100.0100, L500.4050 ####[facility] [address] [place], [address] ALT Normal <=34 [facility] Comment on above: Result Comment: Canc elled via OM: Patient Ill Performed By: #### L 100.0100, L500.4050 ####[facility] [address] [place], [address] AST Normal <=31 [facility] Comment on above: Result Comment: Canc elled via OM: Patient Ill Performed By: #### L 100.0100, L500.4050 ####[facility] [address] [place], [address] BUN Normal 4-19 [facility] Comment on above: Result Comment: Canc elled via OM: Patient Ill Performed By: #### L 100.0100, L500.4050 ####[facility] [address] [place], [address] BUN/CRE Normal 10-20 [facility] Comment on above: Result Comment: Canc elled via OM: Patient Ill Performed By: #### L 100.0100, L500.4050 ####[facility] [address] [place], [address] Calcium Normal 7.6-11.0 [facility] Comment on above: Result Comment: Canc elled via OM: Patient Ill Performed By: #### L 100.0100, L500.4050 ####[facility] [address] [place], [address] CL Normal 98-108 [facility] Comment on above: Result Comment: Canc elled via OM: Patient Ill Performed By: #### L 100.0100, L500.4050 ####[facility] [address] [place], [address] CO2 Normal 21.0-32.0 [facility] Comment on above: Result Comment: Canc elled via OM: Patient Ill Performed By: #### L 100.0100, L500.4050 ####[facility] [address] [place], [address] CREAT,SERUM Normal 0.70-1.20 [facility] Comment on above: Result Comment: Canc elled via OM: Patient Ill Performed By: #### L 100.0100, L500.4050 ####[facility] [address] [place], [address] eGFR Normal >60 [facility] Comment on above: Result Comment: Canc elled via OM: Patient Ill Performed By: #### L 100.0100, L500.4050 ####[facility] [address] [place], [address] GAP Normal 5-15 [facility] Comment on above: Result Comment: Canc elled via OM: Patient Ill Performed By: #### L 100.0100, L500.4050 ####[facility] [address] [place], [address] GLU Normal 70-99 [facility] Comment on above: Result Comment: Canc elled via OM: Patient Ill Performed By: #### L 100.0100, L500.4050 ####[facility] [address] [place], [address] Potassium Normal 3.3-5.1 [facility] Comment on above: Result Comment: Canc elled via OM: Patient Ill Performed By: #### L 100.0100, L500.4050 ####[facility] [address] [place], [address] T BILI Normal 0.00-1.30 [facility] Comment on above: Result Comment: Canc elled via OM: Patient Ill Performed By: #### L 100.0100, L500.4050 ####[facility] [facility] [address] [place], [address] T PROT Normal 5.9-8.4 [facility] Comment on above: Result Comment: Canc elled via OM: Patient Ill Performed By: #### L 100.0100, L500.4050 ####[facility] [address] [place], [address] Comprehensive Metabolic Profil Normal 133-145 [facility] Comment on above: Result Comment: Canc elled via OM: Patient Ill Performed By: #### L 100.0100, L500.4050 ####[facility] [address] [place], [address] Urine Cultureon 05-16-2025 URC Normal [facility] Comment on above: Performed By: #### M 100.2200 ####[facility] [address] [place], [address] Anion gap in Serum or Plasma Ordered By: Maciel Montesinos on 05-15-2025 Anion gap [Moles/Vol] 10 mmol/L 5-15 [facility] BUN/creatinine ratioOrdered By: Maciel Montesinos on 05-15-2025 Urea nitrogen/Creatinine [Mass ratio] 9.4 mg/mg Low 10-20 [facility] Basic Metabolic Profile (BMP )on 05-15-2025 BUN/CRE 9.4 RATIO Low -20 [facility] Comment on above: Performed By: #### L 500.2500 ####[facility] [address] [place], [address] Calcium [Mass/Vol] 7.9 mg/dL Normal 7.6-11.0 [facility] Comment on above: Performed By: #### L 500.2500 ####[facility] [address] [place], [address] Chloride [Moles/Vol] 108 mmol/L Normal 98-108 [facility] Comment on above: Performed By: #### L 500.2500 ####[facility] [address] [place], [address] CO2 [Moles/Vol] 17.1 mmol/L Low 21.0-32.0 [facility] Comment on above: Performed By: #### L 500.2500 ####[facility] [address] [place], [address] Creatinine [Mass/Vol] 0.59 mg/dL Low 0.70-1.20 [facility] Comment on above: Performed By: #### L 500.2500 ####[facility] [address] [place], [address] ECRCL 58.78 ml/min Normal 50-250 [facility] Comment on above: Performed By: #### L 500.2500 ####[facility] [address] [place], [address] GAP 10 Normal -15 [facility] Comment on above: Performed By: #### L 500.2500 ####[facility] [address] [place], [address] GFR/1.73 sq M.predicted among non-blacks MDRD (S/P/Bld) [Vol rate/Area] 94 mL/min/{1.73_m2} Normal >60 [facility] Comment on above: Result Comment: mL/m in/1.73m2 CKD-EPI Creatinine Equation (2020) Performed By: #### L 500.2500 ####[facility] [address] [place], [address] Glucose [Mass/Vol] 106 mg/dL High 70-99 [facility] Comment on above: Performed By: #### L 500.2500 ####[facility] [address] [place], [address] Potassium [Moles/Vol] 3.3 mmol/L Normal 3.3-5.1 [facility] Comment on above: Performed By: #### L 500.2500 ####[facility] [address] [place], [address] Sodium [Moles/Vol] 134 mmol/L Normal 133-145 [facility] Comment on above: Performed By: #### L 500.2500 ####[facility] [address] [place], [address] Urea nitrogen [Mass/Vol] 6 mg/dL Normal 4-19 [facility] Comment on above: Performed By: #### L 500.2500 ####[facility] [address] [place], [address] Brain W/WO Contraston 2024 Brain W/WO Contrast Normal [facility] Carbon dioxide, total [Moles /volume] in Central venous bloodOrdered By: Maciel Montesinos on 05-15-2025 CO2 [Moles/Vol] 17.1 mmol/L Low 21.0-32.0 [facility] Chloride assayOrdered By: Ru Montesinos on 05-15-2025 Chloride [Moles/Vol] 108 mmol/L 98-108 [facility] Discharge Instructionon 05-02 Discharge Instruction Normal [facility] Electrocardiogram reportOrde red By: Marty Brown on 05-15-2025 EKG study [facility] [address] [place] [address] 12 Lead EKG 05/13/25 1544 MR#: [id number] Acct: [id number] Name: JESSIKA CARRILLO Rep #:[id number] : 1950 74 From: Marty Brown MD Attending Dr: Dr. Maciel Montesinos DO Status: ADM IN Ordering Dr: Cadence Castillo DO Date: 05/13/25 Location: [facility] Sex: F C Admitted: 05/13/25 Test Reason : REPEAT Blood Pressure : */* mmHG Vent. Rate : 82 BPM Atrial Rate : 374 BPM P-R Int : * ms QRS Dur : 84 ms QT Int : 408 ms P-R-T Axes : 94 31 -58 degrees QTcB Int : 476 ms Atrial flutter with variable A-V block Low voltage QRS Abnormal ECG Confirmed by MARTY BROWN MD ([id number]), editor in chief MELISSA VALENTE ([id number]) on 05/15/2025 11:33:02 AM Referred By: Confirmed By: MARTY BROWN MD 05/15/25 1133 Date _ Marty Brown MD CC: Dr. Cadence Castillo DO; Dr. Maciel Montesinos DO; JUVENTINO Pérez ~ Signed [facility] Other Phone: Glomerular filtration rate ( GFR) estimation/1.73 sq m using serum, plasma, or whole bOrdered By: Maciel Montesinos on 05-15-2025 GFR/1.73 sq M.predicted among non-blacks MDRD (S/P/Bld) [Vol rate/Area] 94 mL/min/{1.73_m2} >60 [facility] Comment on above: mL/min/1.73m2 CKD-EP I Creatinine Equation (2020) Magnetic resonance imaging r eportOrdered By: Dwayne Jacobson on 05-15-2025 Study report [facility] Imaging Services [address] [place] [address] Brain W/WO Contrast MR#: [id number] Acct: [id number] Name: JESSIKA CARRILLO Rep #: [id number] : 1950 F 74 From: Trevor Jacobson MD PCP: JUVENTINO Pérez Status: ADM IN Study:Brain W/WO Contrast Date of Exam: 05/15/25 Exam# [id number] Ordering Dr: Maciel Baer DO PROCEDURE: BRAIN W/WO CONTRAST 05/15/2025 REASON FOR EXAM: POSSIBLE METASTATIC COLON CANCER TECHNIQUE: BRAIN W/WO CONTRAST Multiplanar and multisequence images were obtained. CONTRAST: Clariscan VOLUME: 15 mL COMPARISON: CT head without contrast, 05/13/2025. FINDINGS: There is an area of low signal on the gradient echo images corresponding to the coarse calcification seen on the CT examination of 05/13/2025. There is no associated vasogenic edema or contrast enhancement. There is focal associated cerebral atrophy. There is a small area of associated white matter signal abnormality. There are areas of subcortical and periventricular white matter signal abnormality in both cerebral hemispheres consistent with chronic ischemic white matter disease. There is a normal sulcal pattern and gyral configuration. There is no evidence of acute intracranial hemorrhage or infarction. The castro-white differentiation is well preserved. There is no evidence of restricted diffusion. The ventricles and basilar cisterns are normal. There are normal flow voids demonstrated in the recognizedintracranial vessels. The cerebellum and brainstem are unremarkable. The cerebellar pontine angles arenormal. The craniovertebral junction is normal. The sella and suprasellar regions are normal. The orbits and retro-orbital regions are unremarkable. The nasal septum is deviated to the right. The paranasal sinuses are clear. The mastoid air cells are clear. There is normal bone marrow signal in the skull base and calvarium. MRI/Brain W/WO Contrast IMPRESSION: 1. There is an area of abnormal signal on the gradient echo images corresponding to the coarse calcifications seen in the left parietal lobe, posteriorly. There is no associated vasogenic edema or contrast enhancement. This is likely a chronic finding, of questionable clinical significance. 2. There are no foci of abnormal intracranial contrast enhancement or vasogenicedema to suggest metastatic disease. 3. Findings consistent with chronic ischemic white matter disease. Reading Location: [place] [address] CC: Dr. Maciel Montesinos DO; JUVENTINO Pérez ~ Loop Puller: Signed [facility] Work Phone: Potassium measurement (mass/ volume)Ordered By: Maciel Montesinos on 05-15-2025 Potassium (Unsp spec) [Mass/Vol] 3.3 mmol/L 3.3-5.1 [facility] Serum creatinine measurement (mass/volume)Ordered By: Maciel Montesinos on 05-15-2025 Creatinine [Mass/Vol] 0.59 mg/dL Low 0.70-1.20 [facility] Serum glucose measurement (m ass/volume)Ordered By: Maciel Montesinos on 05-15-2025 Glucose [Mass/Vol] 106 mg/dL High 70-99 [facility] Serum or plasma calcium alfredo urement (mass/volume)Ordered By: Maciel Montesinos on 05-15-2025 Calcium [Mass/Vol] 7.9 mg/dL 7.6-11.0 [facility] Serum or plasma urea nitroge n measurement (mass/volume)Ordered By: Maciel Montesinos on 05-15-2025 Urea nitrogen [Mass/Vol] 6 mg/dL 4-19 [facility] Sodium levelOrdered By: Maciel Montesinos on 05-15-2025 Sodium [Moles/Vol] 134 mmol/L 133-145 [facility] Absolute lymphocyte countOrd ered By: Maciel Montesinos on 05-14-2025 Lymphocytes Auto (Unsp spec) [#/Vol] 1.12 10*3/uL 0.83-4.51 [facility] Absolute neutrophil countOrd ered By: Maciel Montesinos on 05-14-2025 Neutrophils (Bld) [#/Vol] 0.5 10*3/uL Low 2.0-7.7 [facility] Automated lymphocyte count a s percentage of total leukocytesOrdered By: Maciel Montesinos on 05-14-2025 Lymphocytes/100 WBC Auto (Unsp spec) 45.9 % High 19-41 [facility] Basic Metabolic Profile (BMP )on 05-14-2025 BUN/CRE 8.5 RATIO Low 10-20 [facility] Comment on above: Performed By: #### L 100.0100, L500.2500 ####[facility] [address] [place], [address] Calcium [Mass/Vol] 7.9 mg/dL Normal 7.6-11.0 [facility] Comment on above: Performed By: #### L 100.0100, L500.2500 ####[facility] [address] [place], [address] Chloride [Moles/Vol] 100 mmol/L Normal 98-108 [facility] Comment on above: Performed By: #### L 100.0100, L500.2500 ####[facility] [address] [place], [address] CO2 [Moles/Vol] 19.2 mmol/L Low 21.0-32.0 [facility] Comment on above: Performed By: #### L 100.0100, L500.2500 ####[facility] [address] [place], [address] Creatinine [Mass/Vol] 0.65 mg/dL Low 0.70-1.20 [facility] Comment on above: Performed By: #### L 100.0100, L500.2500 ####[facility] [address] [place], [address] ECRCL 58.78 ml/min Normal 50-250 [facility] Comment on above: Performed By: #### L 100.0100, L500.2500 ####[facility] [address] [place], [address] GAP 11 Normal 5-15 [facility] Comment on above: Performed By: #### L 100.0100, L500.2500 ####[facility] [address] [place], [address] GFR/1.73 sq M.predicted among non-blacks MDRD (S/P/Bld) [Vol rate/Area] 92 mL/min/{1.73_m2} Normal >60 [facility] Comment on above: Result Comment: mL/m in/1.73m2 CKD-EPI Creatinine Equation (2020) Performed By: #### L 100.0100, L500.2500 ####[facility] [address] [place], [address] Glucose [Mass/Vol] 110 mg/dL High 70-99 [facility] Comment on above: Performed By: #### L 100.0100, L500.2500 ####[facility] [address] [place], [address] Potassium [Moles/Vol] 2.8 mmol/L Low 3.3-5.1 [facility] Comment on above: Performed By: #### L 100.0100, L500.2500 ####[facility] [address] [place], [address] Sodium [Moles/Vol] 131 mmol/L Low 133-145 [facility] Comment on above: Performed By: #### L 100.0100, L500.2500 ####[facility] [address] [place], [address] Urea nitrogen [Mass/Vol] 6 mg/dL Normal 4-19 [facility] Comment on above: Performed By: #### L 100.0100, L500.2500 ####[facility] [address] [place], [address] Basophil percentageOrdered B y: Maciel Montesinos on 05-14-2025 Basophils/100 WBC (Bld) 0.8 % 0-1 [facility] Blood manual differential co mment interpretation (narrative result)Ordered By: Maciel Montesinos on 05-14-2025 Manual differential comment Miguel (Bld) [Interp] SCANNED [facility] CBC W/Diff, Automatedon 05-02 SMEAR COMMENT SCANNED Normal [facility] Comment on above: Performed By: #### L 100.0100, L500.2500 ####[facility] [address] [place], [address] Eosinophil percentageOrdered By: Maciel Montesinos on 05-14-2025 Eosinophils/100 WBC (Bld) 1.6 % 0-5 [facility] Erythrocyte distribution wid th ratioOrdered By: Maciel Montesinos on 05-14-2025 Erythrocyte distribution width (RBC) [Ratio] 15.0 % High 11.6-14.6 [facility] Erythrocyte distribution wid th standard deviationOrdered By: Maciel Montesinos on 05-14-2025 Erythrocyte distribution width (RBC) [Ratio] 46.1 fl High 35.1-43.9 [facility] Hematocrit Auto (Bld) [Volum e fraction]Ordered By: Maciel Montesinos on 05-14-2025 Hematocrit (Bld) [Volume fraction] 30.5 % Low 37-47 [facility] Hemoglobin measurementOrdere d By: Maciel Montesinos on 05-14-2025 Hemoglobin (Bld) [Mass/Vol] 10.8 g/dL Low 12.0-15.0 [facility] Immature granulocytes/100 WB C Auto (Bld)Ordered By: Maciel Montesinos on 05-14-2025 Immature granulocytes/100 WBC (Bld) 0.800 % 0.0-0.9 [facility] Comment on above: IG% - Immature Granu locytes (promyelocytes, myelocytes and metamyelocytes) > 1% indicates that a LEFT SHIFT is Present. MCV (mean corpuscular volume ) determinationOrdered By: Maciel Montesinos on 05-14-2025 MCV (RBC) [Entitic vol] 86.9 fL 81-99 [facility] Mean corpuscular hemoglobin (MCH) determinationOrdered By: Maciel Montesinos on 05-14-2025 MCH (RBC) [Entitic mass] 30.8 pg 27.0-32.0 [facility] Mean corpuscular hemoglobin concentration (MCHC) determinationOrdered By: Maciel Montesinos on 05-14-2025 MCHC (RBC) [Mass/Vol] 35.4 g/dL 32-36 [facility] Mean platelet volume determi nationOrdered By: Maciel Montesinos on 05-14-2025 Platelet mean volume (Bld) [Entitic vol] 8.6 fL 6.2-12.0 [facility] Monocyte percentageOrdered B y: Maciel Montesinos on 05-14-2025 Monocytes/100 WBC (Bld) 30.7 % High 0-10 [facility] Neutrophil percentageOrdered By: Maciel Montesinos on 05-14-2025 Neutrophils/100 WBC (Bld) 20.2 % Low 47-70 [facility] Nucleated red blood cell per centageOrdered By: Maciel Montesinos on 05-14-2025 Nucleated RBC/100 WBC (Bld) [Ratio] 0 % 0-5 [facility] Platelet countOrdered By: Ru Montesinos on 05-14-2025 Platelets (Bld) [#/Vol] 214 10*3/uL 150-450 [facility] RBC Auto (Bld) [#/Vol]Ordere d By: Maciel Montesinos on 05-14-2025 RBC (Bld) [#/Vol] 3.51 10*6/uL Low 4.2-5.4 [facility] White blood cell (WBC) count Ordered By: Maciel Montesinos on 05-14-2025 WBC (Bld) [#/Vol] 2.4 10*3/uL Low 4.4-11.0 [facility] 12 Lead EKGon 05-13-2025 12 Lead EKG Normal [facility] Absolute lymphocyte countOrd ered By: Cadence Castillo on 05-13-2025 Lymphocytes Auto (Unsp spec) [#/Vol] 0.98 10*3/uL 0.83-4.51 [facility] Absolute neutrophil countOrd ered By: Cadence Castillo on 05-13-2025 Neutrophils (Bld) [#/Vol] 0.7 10*3/uL Low 2.0-7.7 [facility] Amorphous sediment detection in urine sediment by light microscopyOrdered By: Cadence Castillo on 05-13-2025 Amorphous sediment LM Ql (Urine sed) 1+ [facility] Anion gap in Serum or Plasma Ordered By: Cadence Castillo on 05-13-2025 Anion gap [Moles/Vol] 13 mmol/L 5-15 [facility] BUN/creatinine ratioOrdered By: Cadence Castillo on 05-13-2025 Urea nitrogen/Creatinine [Mass ratio] 15.0 mg/mg 10-20 [facility] Bilirubin Test strip Ql (U)O rdered By: Cadence Castillo on 05-13-2025 Bilirubin Ql (U) Negative Negative [facility] Bilirubin, totalOrdered By: Cadence Castillo on 05-13-2025 Bilirubin [Mass/Vol] 0.42 mg/dL 0.00-1.30 [facility] Blood band neutrophil count as percentage of total leukocytesOrdered By: Cadence Castillo on 05-13-2025 Band form neutrophils/100 WBC (Bld) 2 % 0-5 [facility] Blood cultureOrdered By: Zaria Castillo on 05-13-2025 Bacteria identified Cx Nom (Bld) No growth in 5 days. [facility] Bacteria identified Cx Nom (Bld) No growth in 5 days. [facility] Bacteria identified Cx Nom (Bld) No growth in 5 days. [facility] Bacteria identified Cx Nom (Bld) No growth in 5 days. [facility] Blood eosinophils/100 leukoc ytesOrdered By: Cadence Castillo on 05-13-2025 Eosinophils/100 WBC (Bld) 1 % 0-5 [facility] Blood lymphocytes/100 leukoc ytesOrdered By: Cadence Castillo on 05-13-2025 Lymphocytes/100 WBC (Bld) 40 % 19-41 [facility] Blood monocytes/100 leukocyt esOrdered By: Cadence Castillo on 05-13-2025 Monocytes/100 WBC (Bld) 29 % High 0-10 [facility] Blood segmented neutrophils/ 100 leukocytesOrdered By: Cadence Castillo on 05-13-2025 Segmented neutrophils/100 WBC (Bld) 28 % Low 47-70 [facility] Brain/Head without Contrasto n 05-13-2025 Brain/Head without Contrast Normal [facility] CBC W/Diff, Automatedon 05-02 Absolute Lymph 0.98 X10 3/uL Normal 0.83-4.51 [facility] Comment on above: Performed By: #### L 503.6005, L501.5200, L100.0100, L500.4050, L501.2450 ####[facility] [address] [place], [address] Absolute Neut 0.7 X10 3/uL Low 2.0-7.7 [facility] Comment on above: Performed By: #### L 503.6005, L501.5200, L100.0100, L500.4050, L501.2450 ####[facility] [address] [place], [address] Carbon dioxide, total [Moles /volume] in Central venous bloodOrdered By: Cadence Castillo on 05-13-2025 CO2 [Moles/Vol] 21.5 mmol/L 21.0-32.0 [facility] Chest 1 View (Portable)on Chest 1 View (Portable) Normal [facility] Chloride assayOrdered By: Praveen Castillo on 05-13-2025 Chloride [Moles/Vol] 98 mmol/L 98-108 [facility] Comprehensive Metabolic Prof ilon 05-13-2025 Albumin [Mass/Vol] 3.1 g/dL Low 3.4-4.8 [facility] Comment on above: Performed By: #### L 503.6005, L501.5200, L100.0100, L500.4050, L501.2450 ####[facility] [address] [place], [address] Albumin/Globulin [Mass ratio] 0.9 {ratio} Normal 0.9-2.4 [facility] Comment on above: Performed By: #### L 503.6005, L501.5200, L100.0100, L500.4050, L501.2450 ####[facility] [address] [place], [address] ALK PHOS 74 U/L Normal 35-104 [facility] Comment on above: Performed By: #### L 503.6005, L501.5200, L100.0100, L500.4050, L501.2450 ####[facility] [address] [place], [address] ALT [Catalytic activity/Vol] 25 U/L Normal <=34 [facility] Comment on above: Performed By: #### L 503.6005, L501.5200, L100.0100, L500.4050, L501.2450 ####[facility] [address] [place], [address] AST [Catalytic activity/Vol] 24 U/L Normal <=31 [facility] Comment on above: Performed By: #### L 503.6005, L501.5200, L100.0100, L500.4050, L501.2450 ####[facility] [address] [place], [address] Bilirubin [Mass/Vol] 0.42 mg/dL Normal 0.00-1.30 [facility] Comment on above: Performed By: #### L 503.6005, L501.5200, L100.0100, L500.4050, L501.2450 ####[facility] [address] [place], [address] BUN/CRE 15.0 RATIO Normal 10-20 [facility] Comment on above: Performed By: #### L 503.6005, L501.5200, L100.0100, L500.4050, L501.2450 ####[facility] [address] [place], [address] Calcium [Mass/Vol] 8.7 mg/dL Normal 7.6-11.0 [facility] Comment on above: Performed By: #### L 503.6005, L501.5200, L100.0100, L500.4050, L501.2450 ####[facility] [address] [place], [address] Chloride [Moles/Vol] 98 mmol/L Normal 98-108 [facility] Comment on above: Performed By: #### L 503.6005, L501.5200, L100.0100, L500.4050, L501.2450 ####[facility] [address] [place], [address] CO2 [Moles/Vol] 21.5 mmol/L Normal 21.0-32.0 [facility] Comment on above: Performed By: #### L 503.6005, L501.5200, L100.0100, L500.4050, L501.2450 ####[facility] [address] [place], [address] Creatinine [Mass/Vol] 0.83 mg/dL Normal 0.70-1.20 [facility] Comment on above: Performed By: #### L 503.6005, L501.5200, L100.0100, L500.4050, L501.2450 ####[facility] [address] [place], [address] ECRCL 57.64 ml/min Normal 50-250 [facility] Comment on above: Performed By: #### L 503.6005, L501.5200, L100.0100, L500.4050, L501.2450 ####[facility] [address] [place], [address] GAP 13 Normal 5-15 [facility] Comment on above: Performed By: #### L 503.6005, L501.5200, L100.0100, L500.4050, L501.2450 ####[facility] [address] [place], [address] GFR/1.73 sq M.predicted among non-blacks MDRD (S/P/Bld) [Vol rate/Area] 74 mL/min/{1.73_m2} Normal >60 [facility] Comment on above: Result Comment: mL/m in/1.73m2 CKD-EPI Creatinine Equation (2020) Performed By: #### L 503.6005, L501.5200, L100.0100, L500.4050, L501.2450 ####[facility] [address] [place], [address] Globulin (S) [Mass/Vol] 3.4 g/dL Normal 2.2-4.2 [facility] Comment on above: Performed By: #### L 503.6005, L501.5200, L100.0100, L500.4050, L501.2450 ####[facility] [address] [place], [address] Glucose [Mass/Vol] 147 mg/dL High 70-99 [facility] Comment on above: Performed By: #### L 503.6005, L501.5200, L100.0100, L500.4050, L501.2450 ####[facility] [address] [place], [address] Potassium [Moles/Vol] 3.1 mmol/L Low 3.3-5.1 [facility] Comment on above: Performed By: #### L 503.6005, L501.5200, L100.0100, L500.4050, L501.2450 ####[facility] [address] [place], [address] Sodium [Moles/Vol] 132 mmol/L Low 133-145 [facility] Comment on above: Performed By: #### L 503.6005, L501.5200, L100.0100, L500.4050, L501.2450 ####[facility] [address] [place], [address] T PROT 6.4 g/dL Normal 5.9-8.4 [facility] Comment on above: Performed By: #### L 503.6005, L501.5200, L100.0100, L500.4050, L501.2450 ####[facility] [address] [place], [address] Urea nitrogen [Mass/Vol] 12 mg/dL Normal 4-19 [facility] Comment on above: Performed By: #### L 503.6005, L501.5200, L100.0100, L500.4050, L501.2450 ####[facility] [address] [place], [address] Emergency Department Summary on 05-13-2025 Emergency Department Summary Normal [facility] Erythrocyte distribution wid th ratioOrdered By: Cadence Castillo on 05-13-2025 Erythrocyte distribution width (RBC) [Ratio] 14.7 % High 11.6-14.6 [facility] Erythrocyte distribution wid th standard deviationOrdered By: Cadence Castillo on 05-13-2025 Erythrocyte distribution width (RBC) [Ratio] 45.4 fl High 35.1-43.9 [facility] Glomerular filtration rate ( GFR) estimation/1.73 sq m using serum, plasma, or whole bOrdered By: Cadence Castlilo on 05-13-2025 GFR/1.73 sq M.predicted among non-blacks MDRD (S/P/Bld) [Vol rate/Area] 74 mL/min/{1.73_m2} >60 [facility] Comment on above: mL/min/1.73m2 CKD-EP I Creatinine Equation (2020) H AND P Exam - [facility] 05-13-2025 H&P Exam - Hospitalist Normal [facility] Hematocrit Auto (Bld) [Volum e fraction]Ordered By: Cadence Castillo on 05-13-2025 Hematocrit (Bld) [Volume fraction] 34.0 % Low 37-47 [facility] Hemoglobin measurementOrdere d By: Cadence Castillo on 05-13-2025 Hemoglobin (Bld) [Mass/Vol] 11.5 g/dL Low 12.0-15.0 [facility] Hyaline casts LM.LPF (Urine sed) [#/Area]Ordered By: Cadence Castillo on 05-13-2025 Hyaline casts (Urine sed) [#/Area] 0 /[LPF] 0-5 [facility] Ketones Test strip Ql (U)Ord ered By: Cadence Castillo on 05-13-2025 Ketones Ql (U) Negative Negative [facility] Laboratory - Chemistry and C hemistry - challengeOrdered By: Cadence Castillo on 05-13-2025 AST [Catalytic activity/Vol] 24 U/L <32 [facility] Lactic Acidon 05-13-2025 Lactate [Moles/Vol] 2.2 mmol/L Invalid Interpretation Code 0.0-2.0 [facility] Comment on above: Result Comment: Crit ical Result(s) Called SSHAW at: 1912 by:RADHA??Results read back by same. Performed By: #### L 503.6005 ####[facility] [address] [place], [place], [phone] Lactate [Moles/Vol] 2.4 mmol/L Invalid Interpretation Code 0.0-2.0 [facility] Comment on above: Order Comment: Y Result Comment: Crit ical Result(s) Called to: Eusebio TELLO (ER) by:Tenzin??Results read back by same. Performed By: #### L 503.6005, L501.5200, L100.0100, L500.4050, L501.2450 ####[facility] [address] [place], [place], [id number] Lactic acid measurementOrder ed By: Cadence Castillo on 05-13-2025 Lactate [Moles/Vol] 2.2 mmol/L Critically high 0.0-2.0 [facility] Comment on above: Critical Result(s) C alled SSHAW at: 1912 by: RADHA Results read back by same. Lactate [Moles/Vol] 2.4 mmol/L High 0.0-2.0 [facility] Comment on above: Critical Result(s) C alled to: Euesbio TELLO (ER) by: Tenzin Results read back by same. Lipaseon 05-13-2025 Lipase [Catalytic activity/Vol] 13 U/L Normal -75 [facility] Comment on above: Result Comment: Leonor quintero note:LIPASE revised reference range effective 23.New Lipase methodology. Expected to produce lower valuesthan the previous assay method.NEW Reference Range: 13 - 75 U/L Performed By: #### L 503.6005, L501.5200, L100.0100, L500.4050, L501.2450 ####[facility] [address] [place], [place], [id number] Lipase measurementOrdered By : Cadence Castillo on 05-13-2025 Lipase [Catalytic activity/Vol] 13 U/L 13-75 [facility] Comment on above: Please note:LIPASE r evised reference range effective 23. New Lipase methodology. Expected to produce lower values than the previous assay method. NEW Reference Range: 13 - 75 U/L MCV (mean corpuscular volume ) determinationOrdered By: Cadence Castillo on 05-13-2025 MCV (RBC) [Entitic vol] 89.5 fL 81-99 [facility] Magnesiumon 05-13-2025 Magnesium [Mass/Vol] 1.9 mg/dL Normal 1.5-2.2 [facility] Comment on above: Performed By: #### L 503.6005, L501.5200, L100.0100, L500.4050, L501.2450 ####[facility] [address] [place], [place], [phone] Magnesium measurement (mass/ volume)Ordered By: Cadence Castillo on 05-13-2025 Magnesium (Unsp spec) [Mass/Vol] 1.9 mg/dL 1.5-2.2 [facility] Mean corpuscular hemoglobin (MCH) determinationOrdered By: Cadence Castillo on 05-13-2025 MCH (RBC) [Entitic mass] 30.3 pg 27.0-32.0 [facility] Mean corpuscular hemoglobin concentration (MCHC) determinationOrdered By: Cadence Castillo on 05-13-2025 MCHC (RBC) [Mass/Vol] 33.8 g/dL 32-36 [facility] Mean platelet volume determi nationOrdered By: Cadence Castillo on 05-13-2025 Platelet mean volume (Bld) [Entitic vol] 9.0 fL 6.2-12.0 [facility] Microscopic analysis of urin e for red blood cells (RBC)Ordered By: Cadence Castillo on 05-13-2025 Microscopic analysis of urine for red blood cells (RBC) 0-5 SEEN /hpf 0-5 [facility] Mucus LM Ql (Urine sed)Order ed By: Cadence Castillo on 05-13-2025 Mucus Ql (Urine sed) 1+ /hpf [facility] Nitrite Test strip Ql (U)Ord ered By: Cadence Castillo on 05-13-2025 Nitrite Ql (U) Negative Negative [facility] Platelet countOrdered By: Praveen Castillo on 05-13-2025 Platelets (Bld) [#/Vol] 225 10*3/uL 150-450 [facility] Potassium measurement (mass/ volume)Ordered By: Cadence Castillo on 05-13-2025 Potassium (Unsp spec) [Mass/Vol] 3.1 mmol/L Low 3.3-5.1 [facility] Protein Test strip Ql (U)Ord ered By: Cadence Castillo on 05-13-2025 Protein Ql (U) 30 mg/dl High Negative [facility] RBC Auto (Bld) [#/Vol]Ordere d By: Cadence Castillo on 05-13-2025 RBC (Bld) [#/Vol] 3.80 10*6/uL Low 4.2-5.4 [facility] Serum creatinine measurement (mass/volume)Ordered By: Cadence Castillo on 05-13-2025 Creatinine [Mass/Vol] 0.83 mg/dL 0.70-1.20 [facility] Serum globulin measurementOr dered By: Cadence Castillo on 05-13-2025 Globulin (S) [Mass/Vol] 3.4 g/dL 2.2-4.2 [facility] Serum glucose measurement (m ass/volume)Ordered By: Cadence Castillo on 05-13-2025 Glucose [Mass/Vol] 147 mg/dL High 70-99 [facility] Serum or plasma alanine rojo otransferase (ALT) measurementOrdered By: Cadence Castillo on 05-13-2025 ALT [Catalytic activity/Vol] 25 U/L <35 [facility] Serum or plasma albumin alfredo urement (mass/volume)Ordered By: Cadence Castillo on 05-13-2025 Albumin [Mass/Vol] 3.1 g/dL Low 3.4-4.8 [facility] Serum or plasma albumin/glob ulin mass ratioOrdered By: Cadence Castillo on 05-13-2025 Albumin/Globulin [Mass ratio] 0.9 {ratio} 0.9-2.4 [facility] Serum or plasma alkaline marisabel sphatase measurementOrdered By: Cadence Castillo on 05-13-2025 ALP [Catalytic activity/Vol] 74 U/L 35-104 [facility] Serum or plasma calcium alfredo urement (mass/volume)Ordered By: Cadence Castillo on 05-13-2025 Calcium [Mass/Vol] 8.7 mg/dL 7.6-11.0 [facility] Serum or plasma urea nitroge n measurement (mass/volume)Ordered By: Cadence Castillo on 05-13-2025 Urea nitrogen [Mass/Vol] 12 mg/dL 4-19 [facility] Sodium levelOrdered By: Yarely Castillo on 05-13-2025 Sodium [Moles/Vol] 132 mmol/L Low 133-145 [facility] Squamous epithelial cells de tection in urine sediment by light microscopyOrdered By: Cadence Castillo on 05-13-2025 Epithelial cells.squamous LM Ql (Urine sed) 0-5 SEEN /hpf 5-10 [facility] Total cell countOrdered By: Cadence Castillo on 05-13-2025 Cells counted Molgen (Bld/Tiss) [#] 100 MANUAL DIFF [facility] Total proteinOrdered By: Zaria Castillo on 05-13-2025 Protein [Mass/Vol] 6.4 g/dL 5.9-8.4 [facility] Urinalysis, Completeon 05-13 BACTERIA 2+ /hpf Normal None Seen [facility] Comment on above: Order Comment: CLEAN CATCH Performed By: #### L 400.0001 ####[facility] [address] [place], [address] Mucus Ql (Urine sed) 1+ /hpf Normal [facility] Comment on above: Order Comment: CLEAN CATCH Performed By: #### L 400.0001 ####[facility] [address] [place], [address] AMORPHOUS 1+ Normal [facility] Comment on above: Order Comment: CLEAN CATCH Performed By: #### L 400.0001 ####[facility] [address] [place], [address] CAST,HYALINE 0-5 SEEN Normal 0-5 [facility] Comment on above: Order Comment: CLEAN CATCH Performed By: #### L 400.0001 ####[facility] [address] [place], [address] EPI,SQUAMOUS 0-5 SEEN Normal 5-10 [facility] Comment on above: Order Comment: CLEAN CATCH Performed By: #### L 400.0001 ####[facility] [address] [place], [address] RBC 0-5 SEEN Normal 0-5 [facility] Comment on above: Order Comment: CLEAN CATCH Performed By: #### L 400.0001 ####[facility] [address] [place], [address] WBC 5-10 SEEN Normal 0-5 [facility] Comment on above: Order Comment: CLEAN CATCH Performed By: #### L 400.0001 ####[facility] [address] [place], [address] Urine clarityOrdered By: Zaria Castillo on 05-13-2025 Clarity (U) Sl. Cloudy Clear [facility] Urine color determinationOrd ered By: Cadence Castillo on 05-13-2025 Color (U) Yellow Yellow [facility] Urine cultureOrdered By: Zaria Castillo on 05-13-2025 Bacteria identified Cx Nom (U) Klebsiella pneumoniae sp pneum Abnormal [facility] Bacteria identified Cx Nom (U) Mixed Gram Pos & Gram Neg Org Abnormal [facility] Bacteria identified Cx Nom (U) Klebsiella pneumoniae sp pneum Abnormal [facility] Bacteria identified Cx Nom (U) Mixed Gram Pos & Gram Neg Org Abnormal [facility] Urine glucose detectionOrder ed By: Cadence Castillo on 05-13-2025 Glucose Ql (U) Normal mg/dl Normal [facility] Urine leukocyte esterase det ection by dipstickOrdered By: Cadence Castillo on 05-13-2025 Leukocyte esterase Test strip Ql (U) 500 /ul High Negative [facility] Urine pHOrdered By: Cadence snell on 05-13-2025 pH (U) 6.5 [pH] 5.0 - 8.0 [facility] Urine sediment bacteria coun t by microscopy (number/high power field)Ordered By: Cadence Castillo on 05-13-2025 Bacteria LM.HPF (Urine sed) [#/Area] 2 /[HPF] None Seen [facility] Urine specific gravity measu rementOrdered By: Cadence Castillo on 05-13-2025 Specific gravity (U) [Rel density] 1.010 1.002-1.03 0 [facility] Urine urobilinogen measureme ntOrdered By: Cadence Castillo on 05-13-2025 Urobilinogen Ql (U) Normal mg/dl Normal [facility] White blood cell (WBC) count Ordered By: Cadence Castillo on 05-13-2025 WBC (Bld) [#/Vol] 2.4 10*3/uL Low 4.4-11.0 [facility] White blood cell countOrdere d By: Cadence Castillo on 05-13-2025 White blood cell count 5-10 SEEN /hpf 0-5 [facility] Carcinoembryonic Antigenon 0 - CEA 8.3 ng/mL High 0.0-4.7 [facility] Comment on above: Result Comment: Nons mokers <3.9 Smokers <5.6[employer] Electrochemiluminescence Immunoassay(ECLIA)Values obtained with different assay methods or kitscannot be used interchangeably. Results cannot beinterpreted as absolute evidence of the presence orabsence of malignant disease.Performed at: [facility] [employer] [id number] Director: Abimael Sheridan PhD, Phone: [phone] Performed By: #### L 503.5016, L3100.2300, L501.2300, L503.6030, L503.0106 ####[facility] [address] [place], [place], [phone] Absolute lymphocyte countOrd ered By: [place] on 05-02-2025 Lymphocytes Auto (Unsp spec) [#/Vol] 1.36 10*3/uL 0.83-4.51 [facility] Absolute neutrophil countOrd ered By: [facility] Health[facility]ie Conn on 05-02-2025 Neutrophils (Bld) [#/Vol] 1.9 10*3/uL Low 2.0-7.7 [facility] Anion gap in Serum or Plasma Ordered By: [place] on 05-02-2025 Anion gap [Moles/Vol] 13 mmol/L 5-15 [facility] Automated lymphocyte count a s percentage of total leukocytesOrdered By: [place] on 05-02-2025 Lymphocytes/100 WBC Auto (Unsp spec) 32.5 % -41 [facility] BUN/creatinine ratioOrdered By: [place] on 05-02-2025 Urea nitrogen/Creatinine [Mass ratio] 22.2 mg/mg High 10-20 [facility] Basophil percentageOrdered B y: [place] on 05-02-2025 Basophils/100 WBC (Bld) 1.0 % 0-1 [facility] Bilirubin, totalOrdered By: [place] on 05-02-2025 Bilirubin [Mass/Vol] 0.31 mg/dL 0.00-1.30 [facility] CBC W/Diff, Automatedon Absolute Lymph 1.36 X10 3/uL Normal 0.83-4.51 [facility] Comment on above: Performed By: #### L 501.5200, L100.0100, L500.4050 ####[facility] [address] [place], [address] Absolute Neut 1.9 X10 3/uL Low 2.0-7.7 [facility] Comment on above: Performed By: #### L 501.5200, L100.0100, L500.4050 ####[facility] [address] [place], [address] Basophils/100 WBC (Bld) 1.0 % Normal 0-1 [facility] Comment on above: Performed By: #### L 501.5200, L100.0100, L500.4050 ####[facility] [address] [place], [address] Eosinophils/100 WBC (Bld) 8.6 % High 0-5 [facility] Comment on above: Performed By: #### L 501.5200, L100.0100, L500.4050 ####[facility] [address] [place], [address] Erythrocyte distribution width (RBC) [Ratio] 14.4 % Normal 11.6-14.6 [facility] Comment on above: Performed By: #### L 501.5200, L100.0100, L500.4050 ####[facility] [address] [place], [address] Hematocrit (Bld) [Volume fraction] 36.1 % Low 37-47 [facility] Comment on above: Performed By: #### L 501.5200, L100.0100, L500.4050 ####[facility] [address] [place], [address] Hemoglobin (Bld) [Mass/Vol] 11.9 g/dL Low 12.0-15.0 [facility] Comment on above: Performed By: #### L 501.5200, L100.0100, L500.4050 ####[facility] [address] [place], [address] IG% 0.700 Normal 0.0-0.9 [facility] Comment on above: Result Comment: IG% - Immature Granulocytes (promyelocytes, myelocytes andmetamyelocytes) > 1% indicates that a LEFT SHIFT is Present. Performed By: #### L 501.5200, L100.0100, L500.4050 ####[facility] [address] [place], [address] Lymphocytes/100 WBC (Bld) 32.5 % Normal 19-41 [facility] Comment on above: Performed By: #### L 501.5200, L100.0100, L500.4050 ####[facility] [address] [place], [address] MCH (RBC) [Entitic mass] 29.8 pg Normal 27.0-32.0 [facility] Comment on above: Performed By: #### L 501.5200, L100.0100, L500.4050 ####[facility] [address] [place], [address] MCHC (RBC) [Mass/Vol] 33.0 g/dL Normal 32-36 [facility] Comment on above: Performed By: #### L 501.5200, L100.0100, L500.4050 ####[facility] [address] [place], [address] MCV (RBC) [Entitic vol] 90.5 fL Normal 81-99 [facility] Comment on above: Performed By: #### L 501.5200, L100.0100, L500.4050 ####[facility] [address] [place], [address] Monocytes/100 WBC (Bld) 11.5 % High 0-10 [facility] Comment on above: Performed By: #### L 501.5200, L100.0100, L500.4050 ####[facility] [address] [place], [address] Neutrophils/100 WBC (Bld) 45.7 % Low 47-70 [facility] Comment on above: Performed By: #### L 501.5200, L100.0100, L500.4050 ####[facility] [address] [place], [address] Nucleated RBC (Bld) [#/Vol] 0 10*3/uL Normal 0-5 [facility] Comment on above: Performed By: #### L 501.5200, L100.0100, L500.4050 ####[facility] [address] [place], [address] Platelet mean volume (Bld) [Entitic vol] 8.3 fL Normal 6.2-12.0 [facility] Comment on above: Performed By: #### L 501.5200, L100.0100, L500.4050 ####[facility] [address] [place], [address] Platelets (Bld) [#/Vol] 197 10*3/uL Normal 150-450 [facility] Comment on above: Performed By: #### L 501.5200, L100.0100, L500.4050 ####[facility] [address] [place], [address] RBC (Bld) [#/Vol] 3.99 10*6/uL Low 4.2-5.4 [facility] Comment on above: Performed By: #### L 501.5200, L100.0100, L500.4050 ####[facility] [address] [place], [address] RDW SD 43.6 fl Normal 35.1-43.9 [facility] Comment on above: Performed By: #### L 501.5200, L100.0100, L500.4050 ####[facility] [address] [place], [address] WBC (Bld) [#/Vol] 4.2 10*3/uL Low 4.4-11.0 [facility] Comment on above: Performed By: #### L 501.5200, L100.0100, L500.4050 ####[facility] [address] [place], [address] Carbon dioxide, total [Moles /volume] in Central venous bloodOrdered By: [place] on 05-02-2025 CO2 [Moles/Vol] 22.3 mmol/L 21.0-32.0 [facility] Chloride assayOrdered By: Ru Conn on 05-02-2025 Chloride [Moles/Vol] 103 mmol/L 98-108 [facility] Comprehensive Metabolic Prof ilon 05-02-2025 Albumin [Mass/Vol] 3.4 g/dL Normal 3.4-4.8 [facility] Comment on above: Performed By: #### L 501.5200, L100.0100, L500.4050 ####[facility] [address] [place], [address] Albumin/Globulin [Mass ratio] 1.1 {ratio} Normal 0.9-2.4 [facility] Comment on above: Performed By: #### L 501.5200, L100.0100, L500.4050 ####[facility] [address] [place], [address] ALK PHOS 82 U/L Normal 35-104 [facility] Comment on above: Performed By: #### L 501.5200, L100.0100, L500.4050 ####[facility] [address] [place], [address] ALT [Catalytic activity/Vol] 53 U/L High <=34 [facility] Comment on above: Performed By: #### L 501.5200, L100.0100, L500.4050 ####[facility] [address] [place], [address] AST [Catalytic activity/Vol] 48 U/L High <=31 [facility] Comment on above: Performed By: #### L 501.5200, L100.0100, L500.4050 ####[facility] [address] [place], [address] Bilirubin [Mass/Vol] 0.31 mg/dL Normal 0.00-1.30 [facility] Comment on above: Performed By: #### L 501.5200, L100.0100, L500.4050 ####[facility] [address] [place], [address] BUN/CRE 22.2 RATIO High 10-20 [facility] Comment on above: Performed By: #### L 501.5200, L100.0100, L500.4050 ####[facility] [address] [place], [address] Calcium [Mass/Vol] 9.1 mg/dL Normal 7.6-11.0 [facility] Comment on above: Performed By: #### L 501.5200, L100.0100, L500.4050 ####[facility] [address] [place], [address] Chloride [Moles/Vol] 103 mmol/L Normal 98-108 [facility] Comment on above: Performed By: #### L 501.5200, L100.0100, L500.4050 ####[facility] [address] [place], [address] CO2 [Moles/Vol] 22.3 mmol/L Normal 21.0-32.0 [facility] Comment on above: Performed By: #### L 501.5200, L100.0100, L500.4050 ####[facility] [address] [place], [address] Creatinine [Mass/Vol] 0.76 mg/dL Normal 0.70-1.20 [facility] Comment on above: Performed By: #### L 501.5200, L100.0100, L500.4050 ####[facility] [address] [place], [address] ECRCL 60.24 ml/min Normal 50-250 [facility] Comment on above: Performed By: #### L 501.5200, L100.0100, L500.4050 ####[facility] [address] [place], [address] GAP 13 Normal 5-15 [facility] Comment on above: Performed By: #### L 501.5200, L100.0100, L500.4050 ####[facility] [address] [place], [address] GFR/1.73 sq M.predicted among non-blacks MDRD (S/P/Bld) [Vol rate/Area] 82 mL/min/{1.73_m2} Normal >60 [facility] Comment on above: Result Comment: mL/m in/1.73m2 CKD-EPI Creatinine Equation (2020) Performed By: #### L 501.5200, L100.0100, L500.4050 ####[facility] [address] [place], [address] Globulin (S) [Mass/Vol] 3.1 g/dL Normal 2.2-4.2 [facility] Comment on above: Performed By: #### L 501.5200, L100.0100, L500.4050 ####[facility] [address] [place], [address] Glucose [Mass/Vol] 153 mg/dL High 70-99 [facility] Comment on above: Performed By: #### L 501.5200, L100.0100, L500.4050 ####[facility] [address] [place], [address] Potassium [Moles/Vol] 3.3 mmol/L Normal 3.3-5.1 [facility] Comment on above: Performed By: #### L 501.5200, L100.0100, L500.4050 ####[facility] [address] [place], [address] Sodium [Moles/Vol] 138 mmol/L Normal 133-145 [facility] Comment on above: Performed By: #### L 501.5200, L100.0100, L500.4050 ####[facility] [address] [place], [address] T PROT 6.5 g/dL Normal 5.9-8.4 [facility] Comment on above: Performed By: #### L 501.5200, L100.0100, L500.4050 ####[facility] [address] [place], [address] Urea nitrogen [Mass/Vol] 17 mg/dL Normal 4-19 [facility] Comment on above: Performed By: #### L 501.5200, L100.0100, L500.4050 ####[facility] [address] [place], [address] Eosinophil percentageOrdered By: [place] on 05-02-2025 Eosinophils/100 WBC (Bld) 8.6 % High 0-5 [facility] Erythrocyte distribution wid th ratioOrdered By: [place] on 05-02-2025 Erythrocyte distribution width (RBC) [Ratio] 14.4 % 11.6-14.6 [facility] Erythrocyte distribution wid th standard deviationOrdered By: [facility] Healthjackie Conn on 05-02-2025 Erythrocyte distribution width (RBC) [Ratio] 43.6 fl 35.1-43.9 [facility] Ferritinon 05-02-2025 Ferritin [Mass/Vol] 151 ng/mL Normal 22-378 [facility] Comment on above: Performed By: #### L 503.6550, L3100.2300, L501.2300, L503.6030, L503.0106 ####[facility] [address] [place], [place], [id number] Glomerular filtration rate ( GFR) estimation/1.73 sq m using serum, plasma, or whole bOrdered By: [facility] Healthjackie Conn on 05-02-2025 GFR/1.73 sq M.predicted among non-blacks MDRD (S/P/Bld) [Vol rate/Area] 82 mL/min/{1.73_m2} >60 [facility] Comment on above: mL/min/1.73m2 CKD-EP I Creatinine Equation (2020) Hematocrit Auto (Bld) [Volum e fraction]Ordered By: [place] on 05-02-2025 Hematocrit (Bld) [Volume fraction] 36.1 % Low 37-47 [facility] Hemoglobin measurementOrdere d By: [facility] Healthjackie Conn on 05-02-2025 Hemoglobin (Bld) [Mass/Vol] 11.9 g/dL Low 12.0-15.0 [facility] Immature granulocytes/100 WB C Auto (Bld)Ordered By: [place] on 05-02-2025 Immature granulocytes/100 WBC (Bld) 0.700 % 0.0-0.9 [facility] Comment on above: IG% - Immature Granu locytes (promyelocytes, myelocytes and metamyelocytes) > 1% indicates that a LEFT SHIFT is Present. Iron measurement (mass/mass) Ordered By: [place] on 05-02-2025 Iron (Unsp spec) [Mass/Mass] 70 ug/dL 50-170 [facility] Iron+Iron Binding Capacityon 05-02-2025 Iron [Mass/Vol] 70 ug/dL Normal 50-170 [facility] Comment on above: Performed By: #### L 503.6550, L3100.2300, L501.2300, L503.6030, L503.0106 ####[facility] [address] [place], [address] IRON SATURATION 21.0 Normal 13-59 [facility] Comment on above: Performed By: #### L 503.6550, L3100.2300, L501.2300, L503.6030, L503.0106 ####[facility] [address] [place], [address] TIBC 337 ug/dL Normal 250-450 [facility] Comment on above: Performed By: #### L 503.6550, L3100.2300, L501.2300, L503.6030, L503.0106 ####[facility] [address] [place], [address] UIBC 267 ug/dL Normal 228-428 [facility] Comment on above: Performed By: #### L 503.6550, L3100.2300, L501.2300, L503.6030, L503.0106 ####[facility] [address] [place], [address] Laboratory - Chemistry and C hemistry - challengeOrdered By: [place] on 05-02-2025 AST [Catalytic activity/Vol] 48 U/L High <32 [facility] MCV (mean corpuscular volume ) determinationOrdered By: [place] on 05-02-2025 MCV (RBC) [Entitic vol] 90.5 fL 81-99 [facility] Magnesiumon 05-02-2025 Magnesium [Mass/Vol] 2.1 mg/dL Normal 1.5-2.2 [facility] Comment on above: Performed By: #### L 501.5200, L100.0100, L500.4050 ####[facility] [address] [place], [address] Magnesium measurement (mass/ volume)Ordered By: [place] on 05-02-2025 Magnesium (Unsp spec) [Mass/Vol] 2.1 mg/dL 1.5-2.2 [facility] Mean corpuscular hemoglobin (MCH) determinationOrdered By: [place] on 05-02-2025 MCH (RBC) [Entitic mass] 29.8 pg 27.0-32.0 [facility] Mean corpuscular hemoglobin concentration (MCHC) determinationOrdered By: [place] on 05-02-2025 MCHC (RBC) [Mass/Vol] 33.0 g/dL 32-36 [facility] Mean platelet volume determi nationOrdered By: [place] on 05-02-2025 Platelet mean volume (Bld) [Entitic vol] 8.3 fL 6.2-12.0 [facility] Monocyte percentageOrdered B y: [place] on 05-02-2025 Monocytes/100 WBC (Bld) 11.5 % High 0-10 [facility] Neutrophil percentageOrdered By: [facility] on 05-02-2025 Neutrophils/100 WBC (Bld) 45.7 % Low 47-70 [facility] No Panel InformationOrdered By: [place] on 05-02-2025 Unsaturated Iron Binding Capacity 267 ug/dL 228-428 [facility] Nucleated red blood cell per centageOrdered By: [place] on 05-02-2025 Nucleated RBC/100 WBC (Bld) [Ratio] 0 % 0-5 [facility] Oncology Visit Reporton Oncology Visit Report Normal [facility] Phosphoruson 05-02-2025 Phosphate [Mass/Vol] 3.0 mg/dL Normal 2.7-4.5 [facility] Comment on above: Performed By: #### L 503.6550, L3100.2300, L501.2300, L503.6030, L503.0106 ####[facility] [address] [place], [address] Platelet countOrdered By: Ru Conn on 05-02-2025 Platelets (Bld) [#/Vol] 197 10*3/uL 150-450 [facility] Potassium measurement (mass/ volume)Ordered By: [place] on 05-02-2025 Potassium (Unsp spec) [Mass/Vol] 3.3 mmol/L 3.3-5.1 [facility] RBC Auto (Bld) [#/Vol]Ordere d By: [place] on 05-02-2025 RBC (Bld) [#/Vol] 3.99 10*6/uL Low 4.2-5.4 [facility] Serum creatinine measurement (mass/volume)Ordered By: [place] on 05-02-2025 Creatinine [Mass/Vol] 0.76 mg/dL 0.70-1.20 [facility] Serum globulin measurementOr dered By: [place] on 05-02-2025 Globulin (S) [Mass/Vol] 3.1 g/dL 2.2-4.2 [facility] Serum glucose measurement (m ass/volume)Ordered By: [place] on 05-02-2025 Glucose [Mass/Vol] 153 mg/dL High 70-99 [facility] Serum or plasma alanine rjoo otransferase (ALT) measurementOrdered By: [place] on 05-02-2025 ALT [Catalytic activity/Vol] 53 U/L High <35 [facility] Serum or plasma albumin alfredo urement (mass/volume)Ordered By: [place] on 05-02-2025 Albumin [Mass/Vol] 3.4 g/dL 3.4-4.8 [facility] Serum or plasma albumin/glob ulin mass ratioOrdered By: [place] on 05-02-2025 Albumin/Globulin [Mass ratio] 1.1 {ratio} 0.9-2.4 [facility] Serum or plasma alkaline marisabel sphatase measurementOrdered By: [place] on 05-02-2025 ALP [Catalytic activity/Vol] 82 U/L 35-104 [facility] Serum or plasma calcium alfredo urement (mass/volume)Ordered By: [place] on 05-02-2025 Calcium [Mass/Vol] 9.1 mg/dL 7.6-11.0 [facility] Serum or plasma carcinoembry onic antigen measurement (mass/volume)Ordered By: [place] on 05-02-2025 Carcinoembryonic Ag [Mass/Vol] 8.3 ng/mL High 0.0-4.7 [facility] Comment on above: Nonsmokers <3.9 Smok ers <5.6[employer] Electrochemiluminescence Immunoassay(ECLIA)Values obtained with different assay methods or kitscannot be used interchangeably. Results cannot beinterpreted as absolute evidence of the presence orabsence of malignant disease.Performed at: [facility] [address] [id number] Director: Abimael Sheridan PhD, Phone: [phone] Serum or plasma ferritin any surement (mass/volume)Ordered By: [place] on 05-02-2025 Ferritin [Mass/Vol] 151 ng/mL 22-378 [facility] Serum or plasma iron saturat ion measurement (mass fraction)Ordered By: [place] on 05-02-2025 Iron saturation [Mass fraction] 21.0 % 13-59 [facility] Serum or plasma urea nitroge n measurement (mass/volume)Ordered By: [place] on 05-02-2025 Urea nitrogen [Mass/Vol] 17 mg/dL 4-19 [facility] Sodium levelOrdered By: Kurt Conn on 05-02-2025 Sodium [Moles/Vol] 138 mmol/L 133-145 [facility] Total proteinOrdered By: Shady Conn on 05-02-2025 Protein [Mass/Vol] 6.5 g/dL 5.9-8.4 [facility] Vitamin B12on 05-02-2025 Cobalamin (Vitamin B12) [Mass/Vol] 633 pg/mL Normal 180-914 [facility] Comment on above: Performed By: #### L 503.6550, L3100.2300, L501.2300, L503.6030, L503.0106 ####[facility] [address] [place], [address] Vitamin B12 ser/plasOrdered By: [facility] on 05-02-2025 Cobalamin (Vitamin B12) [Mass/Vol] 633 pg/mL 180-914 [facility] White blood cell (WBC) count Ordered By: [facility] on 05-02-2025 WBC (Bld) [#/Vol] 4.2 10*3/uL Low 4.4-11.0 [facility] Absolute lymphocyte countOrd ered By: [facility] on 04-18-2025 Lymphocytes Auto (Unsp spec) [#/Vol] 1.59 10*3/uL 0.83-4.51 [facility] Absolute neutrophil countOrd ered By: [facility] on 04-18-2025 Neutrophils (Bld) [#/Vol] 2.6 10*3/uL 2.0-7.7 [facility] Anion gap in Serum or Plasma Ordered By: [facility] on 04-18-2025 Anion gap [Moles/Vol] 12 mmol/L 5- [facility] Automated lymphocyte count a s percentage of total leukocytesOrdered By: [facility] on 04-18-2025 Lymphocytes/100 WBC Auto (Unsp spec) 30.1 % - [facility] BUN/creatinine ratioOrdered By: [facility] on 04-18-2025 Urea nitrogen/Creatinine [Mass ratio] 18.4 mg/mg 10- [facility] Basophil percentageOrdered B y: [place] on 04-18-2025 Basophils/100 WBC (Bld) 0.9 % 0- [facility] Bilirubin, totalOrdered By: [facility] on 04-18-2025 Bilirubin [Mass/Vol] 0.25 mg/dL 0.00-1.30 [facility] CBC W/Diff, Automatedon 04-02 Absolute Lymph 1.59 X10 3/uL Normal 0.83-4.51 [facility] Comment on above: Performed By: #### L 500.4050, L501.5200, L100.0100 ####[facility] [address] [place], [address] Absolute Neut 2.6 X10 3/uL Normal 2.0-7.7 [facility] Comment on above: Performed By: #### L 500.4050, L501.5200, L100.0100 ####[facility] [address] [place], [address] Basophils/100 WBC (Bld) 0.9 % Normal 0-1 [facility] Comment on above: Performed By: #### L 500.4050, L501.5200, L100.0100 ####[facility] [address] [place], [address] Eosinophils/100 WBC (Bld) 5.3 % High 0-5 [facility] Comment on above: Performed By: #### L 500.4050, L501.5200, L100.0100 ####[facility] [address] [place], [address] Erythrocyte distribution width (RBC) [Ratio] 13.2 % Normal 11.6-14.6 [facility] Comment on above: Performed By: #### L 500.4050, L501.5200, L100.0100 ####[facility] [address] [place], [address] Hematocrit (Bld) [Volume fraction] 35.4 % Low 37-47 [facility] Comment on above: Performed By: #### L 500.4050, L501.5200, L100.0100 ####[facility] [address] [place], [address] Hemoglobin (Bld) [Mass/Vol] 11.8 g/dL Low 12.0-15.0 [facility] Comment on above: Performed By: #### L 500.4050, L501.5200, L100.0100 ####[facility] [address] [place], [address] IG% 0.600 Normal 0.0-0.9 [facility] Comment on above: Result Comment: IG% - Immature Granulocytes (promyelocytes, myelocytes andmetamyelocytes) > 1% indicates that a LEFT SHIFT is Present. Performed By: #### L 500.4050, L501.5200, L100.0100 ####[facility] [address] [place], [address] Lymphocytes/100 WBC (Bld) 30.1 % Normal 19-41 [facility] Comment on above: Performed By: #### L 500.4050, L501.5200, L100.0100 ####[facility] [address] [place], [address] MCH (RBC) [Entitic mass] 30.0 pg Normal 27.0-32.0 [facility] Comment on above: Performed By: #### L 500.4050, L501.5200, L100.0100 ####[facility] [address] [place], [address] MCHC (RBC) [Mass/Vol] 33.3 g/dL Normal 32-36 [facility] Comment on above: Performed By: #### L 500.4050, L501.5200, L100.0100 ####[facility] [address] [place], [address] MCV (RBC) [Entitic vol] 90.1 fL Normal 81-99 [facility] Comment on above: Performed By: #### L 500.4050, L501.5200, L100.0100 ####[facility] [address] [place], [address] Monocytes/100 WBC (Bld) 13.4 % High 0-10 [facility] Comment on above: Performed By: #### L 500.4050, L501.5200, L100.0100 ####[facility] [address] [place], [address] Neutrophils/100 WBC (Bld) 49.7 % Normal 47-70 [facility] Comment on above: Performed By: #### L 500.4050, L501.5200, L100.0100 ####[facility] [address] [place], [address] Nucleated RBC (Bld) [#/Vol] 0 10*3/uL Normal 0-5 [facility] Comment on above: Performed By: #### L 500.4050, L501.5200, L100.0100 ####[facility] [address] [place], [address] Platelet mean volume (Bld) [Entitic vol] 8.6 fL Normal 6.2-12.0 [facility] Comment on above: Performed By: #### L 500.4050, L501.5200, L100.0100 ####[facility] [address] [place], [address] Platelets (Bld) [#/Vol] 216 10*3/uL Normal 150-450 [facility] Comment on above: Performed By: #### L 500.4050, L501.5200, L100.0100 ####[facility] [address] [place], [address] RBC (Bld) [#/Vol] 3.93 10*6/uL Low 4.2-5.4 [facility] Comment on above: Performed By: #### L 500.4050, L501.5200, L100.0100 ####[facility] [address] [place], [address] RDW SD 42.1 fl Normal 35.1-43.9 [facility] Comment on above: Performed By: #### L 500.4050, L501.5200, L100.0100 ####[facility] [address] [place], [address] WBC (Bld) [#/Vol] 5.3 10*3/uL Normal 4.4-11.0 [facility] Comment on above: Performed By: #### L 500.4050, L501.5200, L100.0100 ####[facility] [address] [place], [address] Carbon dioxide, total [Moles /volume] in Central venous bloodOrdered By: [place] on 04-18-2025 CO2 [Moles/Vol] 24.3 mmol/L 21.0-32.0 [facility] Chloride assayOrdered By: Ru Conn on 04-18-2025 Chloride [Moles/Vol] 102 mmol/L 98-108 [facility] Comprehensive Metabolic Prof ilon 04-18-2025 Albumin [Mass/Vol] 3.6 g/dL Normal 3.4-4.8 [facility] Comment on above: Performed By: #### L 500.4050, L501.5200, L100.0100 ####[facility] [address] [place], [address] Albumin/Globulin [Mass ratio] 1.3 {ratio} Normal 0.9-2.4 [facility] Comment on above: Performed By: #### L 500.4050, L501.5200, L100.0100 ####[facility] [address] [place], [address] ALK PHOS 85 U/L Normal 35-104 [facility] Comment on above: Performed By: #### L 500.4050, L501.5200, L100.0100 ####[facility] [address] [place], [address] ALT [Catalytic activity/Vol] 24 U/L Normal <=34 [facility] Comment on above: Performed By: #### L 500.4050, L501.5200, L100.0100 ####[facility] [address] [place], [address] AST [Catalytic activity/Vol] 25 U/L Normal <=31 [facility] Comment on above: Performed By: #### L 500.4050, L501.5200, L100.0100 ####[facility] [address] [place], [address] Bilirubin [Mass/Vol] 0.25 mg/dL Normal 0.00-1.30 [facility] Comment on above: Performed By: #### L 500.4050, L501.5200, L100.0100 ####[facility] [address] [place], [address] BUN/CRE 18.4 RATIO Normal 10-20 [facility] Comment on above: Performed By: #### L 500.4050, L501.5200, L100.0100 ####[facility] [address] [place], [address] Calcium [Mass/Vol] 9.4 mg/dL Normal 7.6-11.0 [facility] Comment on above: Performed By: #### L 500.4050, L501.5200, L100.0100 ####[facility] [address] [place], [address] Chloride [Moles/Vol] 102 mmol/L Normal 98-108 [facility] Comment on above: Performed By: #### L 500.4050, L501.5200, L100.0100 ####[facility] [address] [place], [address] CO2 [Moles/Vol] 24.3 mmol/L Normal 21.0-32.0 [facility] Comment on above: Performed By: #### L 500.4050, L501.5200, L100.0100 ####[facility] [address] [place], [address] Creatinine [Mass/Vol] 0.78 mg/dL Normal 0.70-1.20 [facility] Comment on above: Performed By: #### L 500.4050, L501.5200, L100.0100 ####[facility] [address] [place], [address] ECRCL 61.03 ml/min Normal 50-250 [facility] Comment on above: Performed By: #### L 500.4050, L501.5200, L100.0100 ####[facility] [address] [place], [address] GAP 12 Normal 5-15 [facility] Comment on above: Performed By: #### L 500.4050, L501.5200, L100.0100 ####[facility] [address] [place], [address] GFR/1.73 sq M.predicted among non-blacks MDRD (S/P/Bld) [Vol rate/Area] 79 mL/min/{1.73_m2} Normal >60 [facility] Comment on above: Result Comment: mL/m in/1.73m2 CKD-EPI Creatinine Equation (2020) Performed By: #### L 500.4050, L501.5200, L100.0100 ####[facility] [address] [place], [address] Globulin (S) [Mass/Vol] 2.8 g/dL Normal 2.2-4.2 [facility] Comment on above: Performed By: #### L 500.4050, L501.5200, L100.0100 ####[facility] [address] [place], [address] Glucose [Mass/Vol] 135 mg/dL High 70-99 [facility] Comment on above: Performed By: #### L 500.4050, L501.5200, L100.0100 ####[facility] [address] [place], [address] Potassium [Moles/Vol] 3.9 mmol/L Normal 3.3-5.1 [facility] Comment on above: Performed By: #### L 500.4050, L501.5200, L100.0100 ####[facility] [address] [place], [address] Sodium [Moles/Vol] 138 mmol/L Normal 133-145 [facility] Comment on above: Performed By: #### L 500.4050, L501.5200, L100.0100 ####[facility] [address] [place], [address] T PROT 6.4 g/dL Normal 5.9-8.4 [facility] Comment on above: Performed By: #### L 500.4050, L501.5200, L100.0100 ####[facility] [address] [place], [address] Urea nitrogen [Mass/Vol] 14 mg/dL Normal 4-19 [facility] Comment on above: Performed By: #### L 500.4050, L501.5200, L100.0100 ####[facility] [address] [place], [address] Eosinophil percentageOrdered By: [place] on 04-18-2025 Eosinophils/100 WBC (Bld) 5.3 % High 0-5 [facility] Erythrocyte distribution wid th ratioOrdered By: [place] on 04-18-2025 Erythrocyte distribution width (RBC) [Ratio] 13.2 % 11.6-14.6 [facility] Erythrocyte distribution wid th standard deviationOrdered By: [facility] on 04-18-2025 Erythrocyte distribution width (RBC) [Ratio] 42.1 fl 35.1-43.9 [facility] Glomerular filtration rate ( GFR) estimation/1.73 sq m using serum, plasma, or whole bOrdered By: [facility] on 04-18-2025 GFR/1.73 sq M.predicted among non-blacks MDRD (S/P/Bld) [Vol rate/Area] 79 mL/min/{1.73_m2} >60 [facility] Comment on above: mL/min/1.73m2 CKD-EP I Creatinine Equation (2020) Hematocrit Auto (Bld) [Volum e fraction]Ordered By: [facility] on 04-18-2025 Hematocrit (Bld) [Volume fraction] 35.4 % Low 37-47 [facility] Hemoglobin measurementOrdere d By: [facility] on 04-18-2025 Hemoglobin (Bld) [Mass/Vol] 11.8 g/dL Low 12.0-15.0 [facility] Immature granulocytes/100 WB C Auto (Bld)Ordered By: [facility] on 04-18-2025 Immature granulocytes/100 WBC (Bld) 0.600 % 0.0-0.9 [facility] Comment on above: IG% - Immature Granu locytes (promyelocytes, myelocytes and metamyelocytes) > 1% indicates that a LEFT SHIFT is Present. Laboratory - Chemistry and C hemistry - challengeOrdered By: [facility] on 04-18-2025 AST [Catalytic activity/Vol] 25 U/L <32 [facility] MCV (mean corpuscular volume ) determinationOrdered By: [facility] 04-18-2025 MCV (RBC) [Entitic vol] 90.1 fL 81-99 [facility] Magnesiumon 04-18-2025 Magnesium [Mass/Vol] 2.0 mg/dL Normal 1.5-2.2 [facility] Comment on above: Performed By: #### L 500.4050, L501.5200, L100.0100 ####[facility] [address] [place], [address] Magnesium measurement (mass/ volume)Ordered By: [place] on 04-18-2025 Magnesium (Unsp spec) [Mass/Vol] 2.0 mg/dL 1.5-2.2 [facility] Mean corpuscular hemoglobin (MCH) determinationOrdered By: [place] on 04-18-2025 MCH (RBC) [Entitic mass] 30.0 pg 27.0-32.0 [facility] Mean corpuscular hemoglobin concentration (MCHC) determinationOrdered By: [place] on 04-18-2025 MCHC (RBC) [Mass/Vol] 33.3 g/dL 32-36 [facility] Mean platelet volume determi nationOrdered By: [place] on 04-18-2025 Platelet mean volume (Bld) [Entitic vol] 8.6 fL 6.2-12.0 [facility] Monocyte percentageOrdered B y: [place] on 04-18-2025 Monocytes/100 WBC (Bld) 13.4 % High 0-10 [facility] Neutrophil percentageOrdered By: [facility] on 04-18-2025 Neutrophils/100 WBC (Bld) 49.7 % 47-70 [facility] Nucleated red blood cell per centageOrdered By: [place] on 04-18-2025 Nucleated RBC/100 WBC (Bld) [Ratio] 0 % 0-5 [facility] Oncology Visit Reporton 04-02 Oncology Visit Report Normal [facility] Platelet countOrdered By: Ru Conn on 04-18-2025 Platelets (Bld) [#/Vol] 216 10*3/uL 150-450 [facility] Potassium measurement (mass/ volume)Ordered By: [place] on 04-18-2025 Potassium (Unsp spec) [Mass/Vol] 3.9 mmol/L 3.3-5.1 [facility] RBC Auto (Bld) [#/Vol]Ordere d By: [place] on 04-18-2025 RBC (Bld) [#/Vol] 3.93 10*6/uL Low 4.2-5.4 [facility] Serum creatinine measurement (mass/volume)Ordered By: [place] on 04-18-2025 Creatinine [Mass/Vol] 0.78 mg/dL 0.70-1.20 [facility] Serum globulin measurementOr dered By: [place] on 04-18-2025 Globulin (S) [Mass/Vol] 2.8 g/dL 2.2-4.2 [facility] Serum glucose measurement (m ass/volume)Ordered By: [place] on 04-18-2025 Glucose [Mass/Vol] 135 mg/dL High 70-99 [facility] Serum or plasma alanine rojo otransferase (ALT) measurementOrdered By: [place] on 04-18-2025 ALT [Catalytic activity/Vol] 24 U/L <35 [facility] Serum or plasma albumin alfredo urement (mass/volume)Ordered By: [place] on 04-18-2025 Albumin [Mass/Vol] 3.6 g/dL 3.4-4.8 [facility] Serum or plasma albumin/glob ulin mass ratioOrdered By: [place] on 04-18-2025 Albumin/Globulin [Mass ratio] 1.3 {ratio} 0.9-2.4 [facility] Serum or plasma alkaline marisabel sphatase measurementOrdered By: [place] on 04-18-2025 ALP [Catalytic activity/Vol] 85 U/L 35-104 [facility] Serum or plasma calcium alfredo urement (mass/volume)Ordered By: [place] on 04-18-2025 Calcium [Mass/Vol] 9.4 mg/dL 7.6-11.0 [facility] Serum or plasma urea nitroge n measurement (mass/volume)Ordered By: [place] on 04-18-2025 Urea nitrogen [Mass/Vol] 14 mg/dL 4-19 [facility] Sodium levelOrdered By: Kurt Conn on 04-18-2025 Sodium [Moles/Vol] 138 mmol/L 133-145 [facility] Total proteinOrdered By: Shady Conn on 04-18-2025 Protein [Mass/Vol] 6.4 g/dL 5.9-8.4 [facility] White blood cell (WBC) count Ordered By: [facility] on 04-18-2025 WBC (Bld) [#/Vol] 5.3 10*3/uL 4.4-11.0 [facility] Absolute lymphocyte countOrd ered By: [facility] on 04-04-2025 Lymphocytes Auto (Unsp spec) [#/Vol] 1.69 10*3/uL 0.83-4.51 [facility] Absolute neutrophil countOrd ered By: [facility] on 04-04-2025 Neutrophils (Bld) [#/Vol] 3.6 10*3/uL 2.0-7.7 [facility] Anion gap in Serum or Plasma Ordered By: [facility] on 04-04-2025 Anion gap [Moles/Vol] 10 mmol/L 5-15 [facility] Automated lymphocyte count a s percentage of total leukocytesOrdered By: [facility] on 04-04-2025 Lymphocytes/100 WBC Auto (Unsp spec) 27.5 % 19-41 [facility] BUN/creatinine ratioOrdered By: [facility] 04-04-2025 Urea nitrogen/Creatinine [Mass ratio] 20.4 mg/mg High 10-20 [facility] Basophil percentageOrdered B y: [place] on 04-04-2025 Basophils/100 WBC (Bld) 1.1 % High 0-1 [facility] Bilirubin, totalOrdered By: [facility] on 04-04-2025 Bilirubin [Mass/Vol] 0.21 mg/dL 0.00-1.30 [facility] CBC W/Diff, Automatedon Absolute Lymph 1.69 X10 3/uL Normal 0.83-4.51 [facility] Comment on above: Performed By: #### L 501.5200, L500.4050, L100.0100 ####[facility] [address] [place], [place], [id number] Absolute Neut 3.6 X10 3/uL Normal 2.0-7.7 [facility] Comment on above: Performed By: #### L 501.5200, L500.4050, L100.0100 ####[facility] [address] [place], [address] Basophils/100 WBC (Bld) 1.1 % High 0-1 [facility] Comment on above: Performed By: #### L 501.5200, L500.4050, L100.0100 ####[facility] [address] [place], [address] Eosinophils/100 WBC (Bld) 4.6 % Normal 0-5 [facility] Comment on above: Performed By: #### L 501.5200, L500.4050, L100.0100 ####[facility] [address] [place], [address] Erythrocyte distribution width (RBC) [Ratio] 12.7 % Normal 11.6-14.6 [facility] Comment on above: Performed By: #### L 501.5200, L500.4050, L100.0100 ####[facility] [address] [place], [address] Hematocrit (Bld) [Volume fraction] 37.5 % Normal 37-47 [facility] Comment on above: Performed By: #### L 501.5200, L500.4050, L100.0100 ####[facility] [address] [place], [address] Hemoglobin (Bld) [Mass/Vol] 12.2 g/dL Normal 12.0-15.0 [facility] Comment on above: Performed By: #### L 501.5200, L500.4050, L100.0100 ####[facility] [address] [place], [address] IG% 0.500 Normal 0.0-0.9 [facility] Comment on above: Result Comment: IG% - Immature Granulocytes (promyelocytes, myelocytes andmetamyelocytes) > 1% indicates that a LEFT SHIFT is Present. Performed By: #### L 501.5200, L500.4050, L100.0100 ####[facility] [address] [place], [address] Lymphocytes/100 WBC (Bld) 27.5 % Normal 19-41 [facility] Comment on above: Performed By: #### L 501.5200, L500.4050, L100.0100 ####[facility] [address] [place], [address] MCH (RBC) [Entitic mass] 30.0 pg Normal 27.0-32.0 [facility] Comment on above: Performed By: #### L 501.5200, L500.4050, L100.0100 ####[facility] [address] [place], [address] MCHC (RBC) [Mass/Vol] 32.5 g/dL Normal 32-36 [facility] Comment on above: Performed By: #### L 501.5200, L500.4050, L100.0100 ####[facility] [address] [place], [address] MCV (RBC) [Entitic vol] 92.4 fL Normal 81-99 [facility] Comment on above: Performed By: #### L 501.5200, L500.4050, L100.0100 ####[facility] [address] [place], [address] Monocytes/100 WBC (Bld) 8.3 % Normal 0-10 [facility] Comment on above: Performed By: #### L 501.5200, L500.4050, L100.0100 ####[facility] [address] [place], [address] Neutrophils/100 WBC (Bld) 58.0 % Normal 47-70 [facility] Comment on above: Performed By: #### L 501.5200, L500.4050, L100.0100 ####[facility] [address] [place], [address] Nucleated RBC (Bld) [#/Vol] 0 10*3/uL Normal 0-5 [facility] Comment on above: Performed By: #### L 501.5200, L500.4050, L100.0100 ####[facility] [address] [place], [address] Platelet mean volume (Bld) [Entitic vol] 8.8 fL Normal 6.2-12.0 [facility] Comment on above: Performed By: #### L 501.5200, L500.4050, L100.0100 ####[facility] [address] [place], [address] Platelets (Bld) [#/Vol] 270 10*3/uL Normal 150-450 [facility] Comment on above: Performed By: #### L 501.5200, L500.4050, L100.0100 ####[facility] [address] [place], [address] RBC (Bld) [#/Vol] 4.06 10*6/uL Low 4.2-5.4 [facility] Comment on above: Performed By: #### L 501.5200, L500.4050, L100.0100 ####[facility] [address] [place], [address] RDW SD 42.2 fl Normal 35.1-43.9 [facility] Comment on above: Performed By: #### L 501.5200, L500.4050, L100.0100 ####[facility] [address] [place], [address] WBC (Bld) [#/Vol] 6.2 10*3/uL Normal 4.4-11.0 [facility] Comment on above: Performed By: #### L 501.5200, L500.4050, L100.0100 ####[facility] [address] [place], [address] Carbon dioxide, total [Moles /volume] in Central venous bloodOrdered By: [place] on 04-04-2025 CO2 [Moles/Vol] 25.8 mmol/L 21.0-32.0 [facility] Chloride assayOrdered By: Ru Conn on 04-04-2025 Chloride [Moles/Vol] 105 mmol/L 98-108 [facility] Comprehensive Metabolic Prof ilon 04-04-2025 Albumin [Mass/Vol] 3.7 g/dL Normal 3.4-4.8 [facility] Comment on above: Performed By: #### L 501.5200, L500.4050, L100.0100 ####[facility] [address] [place], [address] Albumin/Globulin [Mass ratio] 1.3 {ratio} Normal 0.9-2.4 [facility] Comment on above: Performed By: #### L 501.5200, L500.4050, L100.0100 ####[facility] [address] [place], [address] ALK PHOS 77 U/L Normal 35-104 [facility] Comment on above: Performed By: #### L 501.5200, L500.4050, L100.0100 ####[facility] [address] [place], [address] ALT [Catalytic activity/Vol] 26 U/L Normal <=34 [facility] Comment on above: Performed By: #### L 501.5200, L500.4050, L100.0100 ####[facility] [address] [place], [address] AST [Catalytic activity/Vol] 28 U/L Normal <=31 [facility] Comment on above: Performed By: #### L 501.5200, L500.4050, L100.0100 ####[facility] [address] [place], [address] Bilirubin [Mass/Vol] 0.21 mg/dL Normal 0.00-1.30 [facility] Comment on above: Performed By: #### L 501.5200, L500.4050, L100.0100 ####[facility] [address] [place], [address] BUN/CRE 20.4 RATIO High 10-20 [facility] Comment on above: Performed By: #### L 501.5200, L500.4050, L100.0100 ####[facility] [address] [place], [address] Calcium [Mass/Vol] 9.1 mg/dL Normal 7.6-11.0 [facility] Comment on above: Performed By: #### L 501.5200, L500.4050, L100.0100 ####[facility] [address] [place], [address] Chloride [Moles/Vol] 105 mmol/L Normal 98-108 [facility] Comment on above: Performed By: #### L 501.5200, L500.4050, L100.0100 ####[facility] [address] [place], [address] CO2 [Moles/Vol] 25.8 mmol/L Normal 21.0-32.0 [facility] Comment on above: Performed By: #### L 501.5200, L500.4050, L100.0100 ####[facility] [address] [place], [address] Creatinine [Mass/Vol] 0.68 mg/dL Low 0.70-1.20 [facility] Comment on above: Performed By: #### L 501.5200, L500.4050, L100.0100 ####[facility] [address] [place], [address] ECRCL 61.42 ml/min Normal 50-250 [facility] Comment on above: Performed By: #### L 501.5200, L500.4050, L100.0100 ####[facility] [address] [place], [address] GAP 10 Normal 5-15 [facility] Comment on above: Performed By: #### L 501.5200, L500.4050, L100.0100 ####[facility] [address] [place], [address] GFR/1.73 sq M.predicted among non-blacks MDRD (S/P/Bld) [Vol rate/Area] 91 mL/min/{1.73_m2} Normal >60 [facility] Comment on above: Result Comment: mL/m in/1.73m2 CKD-EPI Creatinine Equation (2020) Performed By: #### L 501.5200, L500.4050, L100.0100 ####[facility] [address] [place], [address] Globulin (S) [Mass/Vol] 2.8 g/dL Normal 2.2-4.2 [facility] Comment on above: Performed By: #### L 501.5200, L500.4050, L100.0100 ####[facility] [address] [place], [address] Glucose [Mass/Vol] 124 mg/dL High 70-99 [facility] Comment on above: Performed By: #### L 501.5200, L500.4050, L100.0100 ####[facility] [address] [place], [address] Potassium [Moles/Vol] 4.0 mmol/L Normal 3.3-5.1 [facility] Comment on above: Performed By: #### L 501.5200, L500.4050, L100.0100 ####[facility] [address] [place], [address] Sodium [Moles/Vol] 140 mmol/L Normal 133-145 [facility] Comment on above: Performed By: #### L 501.5200, L500.4050, L100.0100 ####[facility] [address] [place], [address] T PROT 6.6 g/dL Normal 5.9-8.4 [facility] Comment on above: Performed By: #### L 501.5200, L500.4050, L100.0100 ####[facility] [address] [place], [address] Urea nitrogen [Mass/Vol] 14 mg/dL Normal 4-19 [facility] Comment on above: Performed By: #### L 501.5200, L500.4050, L100.0100 ####[facility] [address] [place], [address] Eosinophil percentageOrdered By: [place] on 04-04-2025 Eosinophils/100 WBC (Bld) 4.6 % 0-5 [facility] Erythrocyte distribution wid th ratioOrdered By: [place] on 04-04-2025 Erythrocyte distribution width (RBC) [Ratio] 12.7 % 11.6-14.6 [facility] Erythrocyte distribution wid th standard deviationOrdered By: [facility] on 04-04-2025 Erythrocyte distribution width (RBC) [Ratio] 42.2 fl 35.1-43.9 [facility] Glomerular filtration rate ( GFR) estimation/1.73 sq m using serum, plasma, or whole bOrdered By: [place] on 04-04-2025 GFR/1.73 sq M.predicted among non-blacks MDRD (S/P/Bld) [Vol rate/Area] 91 mL/min/{1.73_m2} >60 [facility] Comment on above: mL/min/1.73m2 CKD-EP I Creatinine Equation (2020) Hematocrit Auto (Bld) [Volum e fraction]Ordered By: [place] on 04-04-2025 Hematocrit (Bld) [Volume fraction] 37.5 % 37-47 [facility] Hemoglobin measurementOrdere d By: [place] on 04-04-2025 Hemoglobin (Bld) [Mass/Vol] 12.2 g/dL 12.0-15.0 [facility] Immature granulocytes/100 WB C Auto (Bld)Ordered By: [facility] on 04-04-2025 Immature granulocytes/100 WBC (Bld) 0.500 % 0.0-0.9 [facility] Comment on above: IG% - Immature Granu locytes (promyelocytes, myelocytes and metamyelocytes) > 1% indicates that a LEFT SHIFT is Present. Laboratory - Chemistry and C hemistry - challengeOrdered By: [place] on 04-04-2025 AST [Catalytic activity/Vol] 28 U/L <32 [facility] MCV (mean corpuscular volume ) determinationOrdered By: [place] on 04-04-2025 MCV (RBC) [Entitic vol] 92.4 fL 81-99 [facility] Magnesiumon 04-04-2025 Magnesium [Mass/Vol] 2.1 mg/dL Normal 1.5-2.2 [facility] Comment on above: Performed By: #### L 501.5200, L500.4050, L100.0100 ####[facility] [address] [place], [address] Magnesium measurement (mass/ volume)Ordered By: [place] on 04-04-2025 Magnesium (Unsp spec) [Mass/Vol] 2.1 mg/dL 1.5-2.2 [facility] Mean corpuscular hemoglobin (MCH) determinationOrdered By: [place] on 04-04-2025 MCH (RBC) [Entitic mass] 30.0 pg 27.0-32.0 [facility] Mean corpuscular hemoglobin concentration (MCHC) determinationOrdered By: [place] on 04-04-2025 MCHC (RBC) [Mass/Vol] 32.5 g/dL 32-36 [facility] Mean platelet volume determi nationOrdered By: [place] on 04-04-2025 Platelet mean volume (Bld) [Entitic vol] 8.8 fL 6.2-12.0 [facility] Monocyte percentageOrdered B y: [place] on 04-04-2025 Monocytes/100 WBC (Bld) 8.3 % 0-10 [facility] Neutrophil percentageOrdered By: Nwe [place] on 04-04-2025 Neutrophils/100 WBC (Bld) 58.0 % 47-70 [facility] Nucleated red blood cell per centageOrdered By: [place] on 04-04-2025 Nucleated RBC/100 WBC (Bld) [Ratio] 0 % 0-5 [facility] Oncology Visit Reporton 060 Oncology Visit Report Normal [facility] Platelet countOrdered By: Ru [place] on 04-04-2025 Platelets (Bld) [#/Vol] 270 10*3/uL 150-450 [facility] Potassium measurement (mass/ volume)Ordered By: [place] on 04-04-2025 Potassium (Unsp spec) [Mass/Vol] 4.0 mmol/L 3.3-5.1 [facility] RBC Auto (Bld) [#/Vol]Ordere d By: [place] on 04-04-2025 RBC (Bld) [#/Vol] 4.06 10*6/uL Low 4.2-5.4 [facility] Serum creatinine measurement (mass/volume)Ordered By: [place] on 04-04-2025 Creatinine [Mass/Vol] 0.68 mg/dL Low 0.70-1.20 [facility] Serum globulin measurementOr dered By: [place] on 04-04-2025 Globulin (S) [Mass/Vol] 2.8 g/dL 2.2-4.2 [facility] Serum glucose measurement (m ass/volume)Ordered By: [place] on 04-04-2025 Glucose [Mass/Vol] 124 mg/dL High 70-99 [facility] Serum or plasma alanine rojo otransferase (ALT) measurementOrdered By: [place] on 04-04-2025 ALT [Catalytic activity/Vol] 26 U/L <35 [facility] Serum or plasma albumin alfredo urement (mass/volume)Ordered By: [place] on 04-04-2025 Albumin [Mass/Vol] 3.7 g/dL 3.4-4.8 [facility] Serum or plasma albumin/glob ulin mass ratioOrdered By: [place] on 04-04-2025 Albumin/Globulin [Mass ratio] 1.3 {ratio} 0.9-2.4 [facility] Serum or plasma alkaline marisabel sphatase measurementOrdered By: [place] on 04-04-2025 ALP [Catalytic activity/Vol] 77 U/L 35-104 [facility] Serum or plasma calcium alfredo urement (mass/volume)Ordered By: [place] on 04-04-2025 Calcium [Mass/Vol] 9.1 mg/dL 7.6-11.0 [facility] Serum or plasma urea nitroge n measurement (mass/volume)Ordered By: [place] on 04-04-2025 Urea nitrogen [Mass/Vol] 14 mg/dL 4-19 [facility] Sodium levelOrdered By: Kurt Conn on 04-04-2025 Sodium [Moles/Vol] 140 mmol/L 133-145 [facility] Total proteinOrdered By: Shady Conn on 04-04-2025 Protein [Mass/Vol] 6.6 g/dL 5.9-8.4 [facility] White blood cell (WBC) count Ordered By: [place] on 04-04-2025 WBC (Bld) [#/Vol] 6.2 10*3/uL 4.4-11.0 [facility] Carcinoembryonic Antigenon 0 5- CEA 5.5 ng/mL High 0.0-4.7 [facility] Comment on above: Order Comment: ADD O N FROM EARLIER TODAY, THANKS Result Comment: Nons mokers <3.9 Smokers <5.6[employer] Electrochemiluminescence Immunoassay(ECLIA)Values obtained with different assay methods or kitscannot be used interchangeably. Results cannot beinterpreted as absolute evidence of the presence orabsence of malignant disease.Performed at: [facility] [employer] [address] [id number] [place], [place] [id number] Director: Abimael Sheridan PhD, Phone: [phone] Performed By: #### L 3100.2300 ####[facility] [address] [place], [place], [address] Absolute lymphocyte countOrd ered By: [facility] on 03-21-2025 Lymphocytes Auto (Unsp spec) [#/Vol] 2.00 10*3/uL 0.83-4.51 [facility] Absolute neutrophil countOrd ered By: [facility] 03-21-2025 Neutrophils (Bld) [#/Vol] 4.1 10*3/uL 2.0-7.7 [facility] Anion gap in Serum or Plasma Ordered By: [facility] on 03-21-2025 Anion gap [Moles/Vol] 10 mmol/L 5- [facility] Automated lymphocyte count a s percentage of total leukocytesOrdered By: [facility] on 03-21-2025 Lymphocytes/100 WBC Auto (Unsp spec) 28.7 % - [facility] BUN/creatinine ratioOrdered By: [facility] on 03-21-2025 Urea nitrogen/Creatinine [Mass ratio] 24.4 mg/mg High - [facility] Basophil percentageOrdered B y: [facility] on 03-21-2025 Basophils/100 WBC (Bld) 0.7 % 0-1 [facility] Bilirubin, totalOrdered By: [facility] on 03-21-2025 Bilirubin [Mass/Vol] 0.23 mg/dL 0.00-1.30 [facility] CBC W/Diff, Automatedon 03-03 Absolute Lymph 2.00 X10 3/uL Normal 0.83-4.51 [facility] Comment on above: Performed By: #### L 100.0100, L500.4050, L501.5200 ####[facility] [address] [place], [address] Absolute Neut 4.1 X10 3/uL Normal 2.0-7.7 [facility] Comment on above: Performed By: #### L 100.0100, L500.4050, L501.5200 ####[facility] [address] [place], [address] Basophils/100 WBC (Bld) 0.7 % Normal 0-1 [facility] Comment on above: Performed By: #### L 100.0100, L500.4050, L501.5200 ####[facility] [address] [place], [address] Eosinophils/100 WBC (Bld) 3.4 % Normal 0-5 [facility] Comment on above: Performed By: #### L 100.0100, L500.4050, L501.5200 ####[facility] [address] [place], [address] Erythrocyte distribution width (RBC) [Ratio] 12.6 % Normal 11.6-14.6 [facility] Comment on above: Performed By: #### L 100.0100, L500.4050, L501.5200 ####[facility] [address] [place], [address] Hematocrit (Bld) [Volume fraction] 37.7 % Normal 37-47 [facility] Comment on above: Performed By: #### L 100.0100, L500.4050, L501.5200 ####[facility] [address] [place], [address] Hemoglobin (Bld) [Mass/Vol] 12.2 g/dL Normal 12.0-15.0 [facility] Comment on above: Performed By: #### L 100.0100, L500.4050, L501.5200 ####[facility] [address] [place], [address] IG% 0.400 Normal 0.0-0.9 [facility] Comment on above: Result Comment: IG% - Immature Granulocytes (promyelocytes, myelocytes andmetamyelocytes) > 1% indicates that a LEFT SHIFT is Present. Performed By: #### L 100.0100, L500.4050, L501.5200 ####[facility] [address] [place], [address] Lymphocytes/100 WBC (Bld) 28.7 % Normal 19-41 [facility] Comment on above: Performed By: #### L 100.0100, L500.4050, L501.5200 ####[facility] [address] [place], [address] MCH (RBC) [Entitic mass] 29.9 pg Normal 27.0-32.0 [facility] Comment on above: Performed By: #### L 100.0100, L500.4050, L501.5200 ####[facility] [address] [place], [address] MCHC (RBC) [Mass/Vol] 32.4 g/dL Normal 32-36 [facility] Comment on above: Performed By: #### L 100.0100, L500.4050, L501.5200 ####[facility] [address] [place], [address] MCV (RBC) [Entitic vol] 92.4 fL Normal 81-99 [facility] Comment on above: Performed By: #### L 100.0100, L500.4050, L501.5200 ####[facility] [address] [place], [address] Monocytes/100 WBC (Bld) 7.9 % Normal 0-10 [facility] Comment on above: Performed By: #### L 100.0100, L500.4050, L501.5200 ####[facility] [address] [place], [address] Neutrophils/100 WBC (Bld) 58.9 % Normal 47-70 [facility] Comment on above: Performed By: #### L 100.0100, L500.4050, L501.5200 ####[facility] [address] [place], [address] Nucleated RBC (Bld) [#/Vol] 0 10*3/uL Normal 0-5 [facility] Comment on above: Performed By: #### L 100.0100, L500.4050, L501.5200 ####[facility] [address] [place], [address] Platelet mean volume (Bld) [Entitic vol] 9.4 fL Normal 6.2-12.0 [facility] Comment on above: Performed By: #### L 100.0100, L500.4050, L501.5200 ####[facility] [address] [place], [address] Platelets (Bld) [#/Vol] 326 10*3/uL Normal 150-450 [facility] Comment on above: Performed By: #### L 100.0100, L500.4050, L501.5200 ####[facility] [address] [place], [address] RBC (Bld) [#/Vol] 4.08 10*6/uL Low 4.2-5.4 [facility] Comment on above: Performed By: #### L 100.0100, L500.4050, L501.5200 ####[facility] [address] [place], [address] RDW SD 42.9 fl Normal 35.1-43.9 [facility] Comment on above: Performed By: #### L 100.0100, L500.4050, L501.5200 ####[facility] [address] [place], [address] WBC (Bld) [#/Vol] 7.0 10*3/uL Normal 4.4-11.0 [facility] Comment on above: Performed By: #### L 100.0100, L500.4050, L501.5200 ####[facility] [address] [place], [address] Carbon dioxide, total [Moles /volume] in Central venous bloodOrdered By: [place] on 03-21-2025 CO2 [Moles/Vol] 24.6 mmol/L 21.0-32.0 [facility] Chloride assayOrdered By: Ru Conn on 03-21-2025 Chloride [Moles/Vol] 105 mmol/L 98-108 [facility] Comprehensive Metabolic Prof ilon 03-21-2025 Albumin [Mass/Vol] 3.7 g/dL Normal 3.4-4.8 [facility] Comment on above: Performed By: #### L 100.0100, L500.4050, L501.5200 ####[facility] [address] [place], [address] Albumin/Globulin [Mass ratio] 1.2 {ratio} Normal 0.9-2.4 [facility] Comment on above: Performed By: #### L 100.0100, L500.4050, L501.5200 ####[facility] [address] [place], [address] ALK PHOS 63 U/L Normal 35-104 [facility] Comment on above: Performed By: #### L 100.0100, L500.4050, L501.5200 ####[facility] [address] [place], [address] ALT [Catalytic activity/Vol] 18 U/L Normal <=34 [facility] Comment on above: Performed By: #### L 100.0100, L500.4050, L501.5200 ####[facility] [address] [place], [address] AST [Catalytic activity/Vol] 24 U/L Normal <=31 [facility] Comment on above: Performed By: #### L 100.0100, L500.4050, L501.5200 ####[facility] [address] [place], [address] Bilirubin [Mass/Vol] 0.23 mg/dL Normal 0.00-1.30 [facility] Comment on above: Performed By: #### L 100.0100, L500.4050, L501.5200 ####[facility] [address] [place], [address] BUN/CRE 24.4 RATIO High 10-20 [facility] Comment on above: Performed By: #### L 100.0100, L500.4050, L501.5200 ####[facility] [address] [place], [address] Calcium [Mass/Vol] 9.0 mg/dL Normal 7.6-11.0 [facility] Comment on above: Performed By: #### L 100.0100, L500.4050, L501.5200 ####[facility] [address] [place], [address] Chloride [Moles/Vol] 105 mmol/L Normal 98-108 [facility] Comment on above: Performed By: #### L 100.0100, L500.4050, L501.5200 ####[facility] [address] [place], [address] CO2 [Moles/Vol] 24.6 mmol/L Normal 21.0-32.0 [facility] Comment on above: Performed By: #### L 100.0100, L500.4050, L501.5200 ####[facility] [address] [place], [address] Creatinine [Mass/Vol] 0.77 mg/dL Normal 0.70-1.20 [facility] Comment on above: Performed By: #### L 100.0100, L500.4050, L501.5200 ####[facility] [address] [place], [address] ECRCL 61.90 ml/min Normal 50-250 [facility] Comment on above: Performed By: #### L 100.0100, L500.4050, L501.5200 ####[facility] [address] [place], [address] GAP 10 Normal 5-15 [facility] Comment on above: Performed By: #### L 100.0100, L500.4050, L501.5200 ####[facility] [address] [place], [address] GFR/1.73 sq M.predicted among non-blacks MDRD (S/P/Bld) [Vol rate/Area] 81 mL/min/{1.73_m2} Normal >60 [facility] Comment on above: Result Comment: mL/m in/1.73m2 CKD-EPI Creatinine Equation (2020) Performed By: #### L 100.0100, L500.4050, L501.5200 ####[facility] [address] [place], [address] Globulin (S) [Mass/Vol] 3.0 g/dL Normal 2.2-4.2 [facility] Comment on above: Performed By: #### L 100.0100, L500.4050, L501.5200 ####[facility] [address] [place], [address] Glucose [Mass/Vol] 124 mg/dL High 70-99 [facility] Comment on above: Performed By: #### L 100.0100, L500.4050, L501.5200 ####[facility] [address] [place], [address] Potassium [Moles/Vol] 3.8 mmol/L Normal 3.3-5.1 [facility] Comment on above: Performed By: #### L 100.0100, L500.4050, L501.5200 ####[facility] [address] [place], [address] Sodium [Moles/Vol] 139 mmol/L Normal 133-145 [facility] Comment on above: Performed By: #### L 100.0100, L500.4050, L501.5200 ####[facility] [address] [place], [address] T PROT 6.6 g/dL Normal 5.9-8.4 [facility] Comment on above: Performed By: #### L 100.0100, L500.4050, L501.5200 ####[facility] [address] [place], [address] Urea nitrogen [Mass/Vol] 19 mg/dL Normal 4-19 [facility] Comment on above: Performed By: #### L 100.0100, L500.4050, L501.5200 ####[facility] [address] [place], [address] Eosinophil percentageOrdered By: [place] on 03-21-2025 Eosinophils/100 WBC (Bld) 3.4 % 0-5 [facility] Erythrocyte distribution wid th ratioOrdered By: [place] on 03-21-2025 Erythrocyte distribution width (RBC) [Ratio] 12.6 % 11.6-14.6 [facility] Erythrocyte distribution wid th standard deviationOrdered By: [place] on 03-21-2025 Erythrocyte distribution width (RBC) [Ratio] 42.9 fl 35.1-43.9 [facility] Glomerular filtration rate ( GFR) estimation/1.73 sq m using serum, plasma, or whole bOrdered By: [place] on 03-21-2025 GFR/1.73 sq M.predicted among non-blacks MDRD (S/P/Bld) [Vol rate/Area] 81 mL/min/{1.73_m2} >60 [facility] Comment on above: mL/min/1.73m2 CKD-EP I Creatinine Equation (2020) Hematocrit Auto (Bld) [Volum e fraction]Ordered By: [facility] on 03-21-2025 Hematocrit (Bld) [Volume fraction] 37.7 % 37-47 [facility] Hemoglobin measurementOrdere d By: [place] on 03-21-2025 Hemoglobin (Bld) [Mass/Vol] 12.2 g/dL 12.0-15.0 [facility] Immature granulocytes/100 WB C Auto (Bld)Ordered By: [place] on 03-21-2025 Immature granulocytes/100 WBC (Bld) 0.400 % 0.0-0.9 [facility] Comment on above: IG% - Immature Granu locytes (promyelocytes, myelocytes and metamyelocytes) > 1% indicates that a LEFT SHIFT is Present. Laboratory - Chemistry and C hemistry - challengeOrdered By: [facility] on 03-21-2025 AST [Catalytic activity/Vol] 24 U/L <32 [facility] MCV (mean corpuscular volume ) determinationOrdered By: [place] on 03-21-2025 MCV (RBC) [Entitic vol] 92.4 fL 81-99 [facility] Magnesiumon 03-21-2025 Magnesium [Mass/Vol] 2.1 mg/dL Normal 1.5-2.2 [facility] Comment on above: Performed By: #### L 100.0100, L500.4050, L501.5200 ####[facility] [id number] [place], [address] Magnesium measurement (mass/ volume)Ordered By: [place] on 03-21-2025 Magnesium (Unsp spec) [Mass/Vol] 2.1 mg/dL 1.5-2.2 [facility] Mean corpuscular hemoglobin (MCH) determinationOrdered By: [place] on 03-21-2025 MCH (RBC) [Entitic mass] 29.9 pg 27.0-32.0 [facility] Mean corpuscular hemoglobin concentration (MCHC) determinationOrdered By: [place] on 03-21-2025 MCHC (RBC) [Mass/Vol] 32.4 g/dL 32-36 [facility] Mean platelet volume determi nationOrdered By: [place] on 03-21-2025 Platelet mean volume (Bld) [Entitic vol] 9.4 fL 6.2-12.0 [facility] Monocyte percentageOrdered B y: [place] on 03-21-2025 Monocytes/100 WBC (Bld) 7.9 % 0-10 [facility] Neutrophil percentageOrdered By: [place] on 03-21-2025 Neutrophils/100 WBC (Bld) 58.9 % 47-70 [facility] Nucleated red blood cell per centageOrdered By: [place] on 03-21-2025 Nucleated RBC/100 WBC (Bld) [Ratio] 0 % 0-5 [facility] Oncology Visit Reporton 03-03 Oncology Visit Report Normal [facility] Platelet countOrdered By: Ru Conn on 03-21-2025 Platelets (Bld) [#/Vol] 326 10*3/uL 150-450 [facility] Potassium measurement (mass/ volume)Ordered By: [place] on 03-21-2025 Potassium (Unsp spec) [Mass/Vol] 3.8 mmol/L 3.3-5.1 [facility] RBC Auto (Bld) [#/Vol]Ordere d By: [place] on 03-21-2025 RBC (Bld) [#/Vol] 4.08 10*6/uL Low 4.2-5.4 [facility] Serum creatinine measurement (mass/volume)Ordered By: [place] on 03-21-2025 Creatinine [Mass/Vol] 0.77 mg/dL 0.70-1.20 [facility] Serum globulin measurementOr dered By: [place] on 03-21-2025 Globulin (S) [Mass/Vol] 3.0 g/dL 2.2-4.2 [facility] Serum glucose measurement (m ass/volume)Ordered By: [place] on 03-21-2025 Glucose [Mass/Vol] 124 mg/dL High 70-99 [facility] Serum or plasma alanine rojo otransferase (ALT) measurementOrdered By: [place] on 03-21-2025 ALT [Catalytic activity/Vol] 18 U/L <35 [facility] Serum or plasma albumin alfredo urement (mass/volume)Ordered By: [place] on 03-21-2025 Albumin [Mass/Vol] 3.7 g/dL 3.4-4.8 [facility] Serum or plasma albumin/glob ulin mass ratioOrdered By: [facility] Health[facility]ie [facility] on 03-21-2025 Albumin/Globulin [Mass ratio] 1.2 {ratio} 0.9-2.4 [facility] Serum or plasma alkaline marisabel sphatase measurementOrdered By: [facility] Healthjackie Conn on 03-21-2025 ALP [Catalytic activity/Vol] 63 U/L 35-104 [facility] Serum or plasma calcium alfredo urement (mass/volume)Ordered By: [place] on 03-21-2025 Calcium [Mass/Vol] 9.0 mg/dL 7.6-11.0 [facility] Serum or plasma carcinoembry onic antigen measurement (mass/volume)Ordered By: Alyssa Lynch on 03-21-2025 Carcinoembryonic Ag [Mass/Vol] 5.5 ng/mL High 0.0-4.7 [facility] Comment on above: Nonsmokers <3.9 Smok ers <5.6[facility] [employer] Electrochemiluminescence Immunoassay(ECLIA)Values obtained with different assay methods or kitscannot be used interchangeably. Results cannot beinterpreted as absolute evidence of the presence orabsence of malignant disease.Performed at: [facility] [employer] [id number] Director: Abimael Sheridan PhD, Phone: [phone] Serum or plasma urea nitroge n measurement (mass/volume)Ordered By: [place] on 03-21-2025 Urea nitrogen [Mass/Vol] 19 mg/dL - [facility] Sodium levelOrdered By: Kurt mejia Senia on 03-21-2025 Sodium [Moles/Vol] 139 mmol/L 133-145 [facility] Total proteinOrdered By: Shady burroughs [place] on 03-21-2025 Protein [Mass/Vol] 6.6 g/dL 5.9-8.4 [facility] White blood cell (WBC) count Ordered By: Kurtjackie Conn on 03-21-2025 WBC (Bld) [#/Vol] 7.0 10*3/uL 4.4-11.0 [facility] CXR for Line Placementon CXR for Line Placement Normal [facility] Discharge Instructionon 03-02 Discharge Instruction Normal [facility] MR/POSTOP.ANEon 03-20-2025 MR/POSTOP.ANE Normal [facility] MR/[id number] 03-20-2025 MR/POSTOPAN2 Normal [facility] Operative Reporton Operative Report Normal [facility] CBC (INCLUDES DIFF/PLT)on Basophils (Bld) [#/Vol] 0.055 10*3/uL Normal 0-200 [facility] Comment on above: Performed By: #### 7 600, 689, 25443, 0799, 81067 #### [facility] [address], [address] [place] [address] [employer]: Esteban Shen MD Basophils/100 WBC (Bld) 0.5 % Normal [facility] Comment on above: Performed By: #### 7 600, 049, 16361, 3699, 91709 #### [facility] [address], [address] [place] [address] [employer]: Esteban Shen MD Eosinophils (Bld) [#/Vol] 0.154 10*3/uL Normal 15-500 [facility] Comment on above: Performed By: #### 7 600, 709, 72269, 6399, 21179 #### [facility] of [place] [address] [employer]: Esteban Shen MD Eosinophils/100 WBC (Bld) 1.4 % Normal [facility] Comment on above: Performed By: #### 7 600, 899, 72826, 6399, 10214 #### [facility] [place] [address] [employer]: Esteban Shen MD Erythrocyte distribution width (RBC) [Ratio] 14.0 % Normal 11.0-15.0 [facility] Comment on above: Performed By: #### 7 600, 899, 78897, 6399, 00680 #### [facility] [place] [address] [employer]: Esteban Shen MD Hematocrit (Bld) [Volume fraction] 42.3 % Normal 35.0-45.0 [facility] Comment on above: Performed By: #### 7 600, 899, 60101, 6399, 24706 #### [facility] [place] [address] [employer]: Esteban Shen MD Hemoglobin (Bld) [Mass/Vol] 13.0 g/dL Normal 11.7-15.5 [facility] Comment on above: Performed By: #### 7 600, 899, 35064, 6399, 31012 #### [facility] [place] [address] [employer]: Esteban Shen MD Lymphocytes (Bld) [#/Vol] 1.606 10*3/uL Normal 850-3900 [facility] Comment on above: Performed By: #### 7 600, 899, 44459, 6399, 48406 #### [facility] [place] [address] [employer]: Esteban Shen MD Lymphocytes/100 WBC (Bld) 14.6 % Normal [facility] Comment on above: Performed By: #### 7 600, 899, 66690, 6399, 66792 #### [facility] [place] [address] [employer]: Esteban Shen MD MCH (RBC) [Entitic mass] 29.7 pg Normal 27.0-33.0 [facility] Comment on above: Performed By: #### 7 600, 899, 72704, 6399, 16399 #### [facility] [place] [address] [employer]: Esteban Shen MD MCHC (RBC) [Mass/Vol] 30.7 [...] condition. Performed By: #### 7 600, 899, 49779, 6399, 88846 #### [facility] [place] [address] [employer]: Esteban Shen MD MCV (RBC) [Entitic vol] 96.6 fL Normal 80.0-100.0 [facility] Comment on above: Performed By: #### 7 600, 899, 88356, 6399, 71993 #### [facility] [place] [address] [employer]: Esteban Shen MD Monocytes (Bld) [#/Vol] 0.539 10*3/uL Normal 200-950 [facility] Comment on above: Performed By: #### 7 600, 899, 24022, 6399, 35487 #### [facility] [place] [address] [employer]: Esteban Shen MD Monocytes/100 WBC (Bld) 4.9 % Normal [facility] Comment on above: Performed By: #### 7 600, 899, 86394, 6399, 35948 #### [facility] of [address], [address] [place] [address] [employer]: Esteban Shen MD Neutrophils (Bld) [#/Vol] 8.646 10*3/uL High 8877-0862 [facility] Comment on above: Performed By: #### 7 600, 899, 03485, 6399, 40824 #### [facility] of [address], [address] [place] [address] [employer]: Esteban Shen MD Neutrophils/100 WBC (Bld) 78.6 % Normal [facility] Comment on above: Performed By: #### 7 600, 899, 53597, 6399, 83699 #### [facility] [place] [address] [employer]: Esteban Shen MD Platelet mean volume (Bld) [Entitic vol] 10.4 fL Normal 7.5-12.5 [facility] Comment on above: Performed By: #### 7 600, 899, 88680, 6399, 14106 #### [facility] [place] [address] [employer]: Esteban Shen MD Platelets (Bld) [#/Vol] 357 10*3/uL Normal 140-400 [facility] Comment on above: Performed By: #### 7 600, 899, 72041, 6399, 82157 #### [facility] [place] [address] [employer]: Esteban Shen MD RBC (Bld) [#/Vol] 4.38 10*6/uL Normal 3.80-5.10 [facility] Comment on above: Performed By: #### 7 600, 899, 22091, 6399, 13727 #### [facility] [place] [address] [employer]: Esteban Shen MD WBC (Bld) [#/Vol] 11.0 10*3/uL High 3.8-10.8 [facility] Comment on above: Performed By: #### 7 600, 899, 93340, 6399, 90103 #### [facility] [place] [address] [employer]: Esteban Shen MD COMPREHENSIVE METABOLIC PANE [facility] 03-18-2025 Albumin [Mass/Vol] 4.0 g/dL Normal 3.6-5.1 [facility] Comment on above: Performed By: #### 7 600, 899, 56031, 6399, 55358 #### [facility] [place] [address] [employer]: Esteban Shen MD Albumin/Globulin [Mass ratio] 1.5 {ratio} Normal 1.0-2.5 [facility] Comment on above: Performed By: #### 7 600, 899, 62574, 6399, 09246 #### [facility] [place] [address] [employer]: Esteban Shen MD ALP [Catalytic activity/Vol] 55 U/L Normal 37-153 [facility] Comment on above: Performed By: #### 7 600, 899, 26947, 6399, 62121 #### [facility] [place] [address] [employer]: Esteban Shen MD ALT [Catalytic activity/Vol] 19 U/L Normal 6-29 [facility] Comment on above: Performed By: #### 7 600, 899, 04062, 6399, 69976 #### [facility] [place] [address] [employer]: Esteban Shen MD AST [Catalytic activity/Vol] 18 U/L Normal 10-35 [facility] Comment on above: Performed By: #### 7 600, 899, 90312, 6399, 28330 #### [facility] [place] [address] [employer]: Esteban Shen MD Bilirubin [Mass/Vol] 0.4 mg/dL Normal 0.2-1.2 [facility] Comment on above: Performed By: #### 7 600, 899, 93468, 6399, 22293 #### [facility] [place] [address] [employer]: Esteban Shen MD BUN/CREATININE RATIO SEE NOTE: Normal 6-22 [facility] Comment on above: Result Comment: Not Reported: BUN and Creatinine are within reference range. Performed By: #### 7 600, 899, 05327, 6399, 52985 #### [facility] [place] [address] [employer]: Esteban Shen MD Calcium [Mass/Vol] 9.3 mg/dL Normal 8.6-10.4 [facility] Comment on above: Performed By: #### 7 600, 899, 16803, 6399, 50001 #### [facility] [place] [address] [employer]: Esteban Shen MD Chloride [Moles/Vol] 105 mmol/L Normal 98-110 [facility] Comment on above: Performed By: #### 7 600, 899, 98257, 6399, 84720 #### [facility] [place] [address] [employer]: Esteban Shen MD CO2 [Moles/Vol] 25 mmol/L Normal 20-32 [facility] Comment on above: Performed By: #### 7 600, 899, 13527, 6399, 49245 #### [facility] [place] [address] [employer]: Esteban Shen MD Creatinine [Mass/Vol] 0.66 mg/dL Normal 0.60-1.[address] [facility] Comment on above: Performed By: #### 7 600, 899, 12473, 6399, 09854 #### [facility] [place] [address] [employer]: Esteban Shen MD GFR/1.73 sq M.predicted among non-blacks MDRD (S/P/Bld) [Vol rate/Area] 91 mL/min/{1.73_m2} Normal > OR = 60 [facility] Comment on above: Performed By: #### 7 600, 899, 97013, 6399, 30086 #### [facility] [place] [address] [employer]: Esteban Shen MD Globulin (S) [Mass/Vol] 2.7 g/dL Normal 1.9-3.7 [facility] Comment on above: Performed By: #### 7 600, 899, 88919, 6399, 66021 #### [facility] [place] [address] [employer]: Esteban Shen MD Glucose [Mass/Vol] 96 mg/dL Normal 65-99 [facility] Comment on above: Result Comment: Fasting reference interval Performed By: #### 7 600, 899, 06929, 6399, 32352 #### [facility] [place] [address] Moving [employer]: Esteban Shen MD Potassium [Moles/Vol] 4.4 mmol/L Normal 3.5-5.3 [facility] Comment on above: Performed By: #### 7 600, 899, 12143, 6399, 12501 #### [facility] [place] [address] Moving Van [employer]: Esteban Shen MD Protein [Mass/Vol] 6.7 g/dL Normal 6.1-8.1 [facility] Comment on above: Performed By: #### 7 600, 899, 32119, 6399, 48993 #### [facility] [place] [address] Moving [employer]: Esteban Shen MD Sodium [Moles/Vol] 140 mmol/L Normal 135-146 [facility] Comment on above: Performed By: #### 7 600, 899, 81548, 6399, 13361 #### [facility] [address], [address] [place] [address] Moving [employer]: Esteban Shen MD Urea nitrogen [Mass/Vol] 21 mg/dL Normal 7- [facility] Comment on above: Performed By: #### 7 600, 899, 20907, 6399, 68053 #### [facility] [address], [address] [place] [address] Moving Van [employer]: Esteban Shen MD LIPID PANEL, [place] [address]- Cholesterol [Mass/Vol] 190 mg/dL Normal <200 [facility] Comment on above: Performed By: #### 7 600, 899, 87313, 6399, 52334 #### [facility] [address], [address] [place] [address] Moving Van Driver: Esteban Shen MD Cholesterol in HDL [Mass/Vol] 66 mg/dL Normal > OR = 50 [facility] Comment on above: Performed By: #### 7 600, 899, 82549, 6399, 08822 #### [facility] [address], [address] [place] [address] Moving Van Driver: Esteban Shen MD Cholesterol in LDL [Mass/Vol] 103 mg/dL High [facility] Comment on above: Result Comment: Refe rence range: <100 Desirable range <100 mg/dL for primary prevention; <70 mg/dL for patients with CHD or diabetic patients with > or = 2 CHD risk factors. LDL-C is now calculated using the Rohan-Dexter calculation, which is a validated novel method providing better accuracy than the Friedewald equation in the estimation of LDL-C. Rohan HO et al. NIEVES. 2013;310(19): 1256-4811 (http://education.[employer].Graduway/faq/EUG069) Performed By: #### 7 600, 899, 37845, 6399, 56275 #### [facility] [address], [address] [place] [address] Moving Van Driver: Esteban Shen MD Cholesterol.total/Chol esterol in HDL [Mass ratio] 2.9 {ratio} Normal <5.0 [facility] Comment on above: Performed By: #### 7 600, 899, 56820, 6399, 65705 #### [facility] [place] [address] Moving Van [employer]: Esteban Shen MD NON HDL CHOLESTEROL 124 mg/dL (calc) Normal <130 [facility] Comment on above: Result Comment: For patients with diabetes plus 1 major ASCVD risk factor, treating to a non-HDL-C goal of <100 mg/dL (LDL-C of <70 mg/dL) is considered a therapeutic option. Performed By: #### 7 600, 899, 14484, 6399, 37266 #### [facility] [place] [address] Moving Van [employer]: Esteban Shen MD Triglyceride [Mass/Vol] 116 mg/dL Normal <150 [facility] Comment on above: Performed By: #### 7 600, 899, 31996, 6399, 49249 #### [facility] [place] [address] Moving Van Driver: Esteban Shen MD T4, FREEon 03-18-2025 Free T4 [Mass/Vol] 1.0 ng/dL Normal 0.8-1.8 [facility] Comment on above: Performed By: #### 7 600, 899, 20701, 6399, 80258 #### [facility] [place] [address] Moving Van Driver: Esteban Shen MD TSHon 03-18-2025 TSH Qn 2.46 m[IU]/L Normal 0.40-4.50 [facility] Comment on above: Performed By: #### 7 600, 899, 91071, 6399, 20658 #### [facility] [place] [address] Moving Van [employer]: Esteban Shen MD VITAMIN D,25-OH,TOTAL,IAon 0 03-18-2025 [...] D, (D2,D3), LC/MS/MS is recommended: order code 10805 (patients >2yrs). See Note 1 Note 1 For additional information, please refer to http://education.[employer]/faq/XYY452 (This link is being provided for informational/ educational purposes only.) Performed By: #### 7 600, 129, 64466, 3986, 54955 #### [facility] [address], [address] [place] [id number] Moving Van Driver: Esteban Shen MD Laboratory - Chemistry and C hemistry - challengeon 03-17-2025 Albumin [Mass/Vol] 4.0 g/dL Normal 3.6 - 5.1 g/dL [facility], [facility].; [employer], [employer] Albumin/Globulin [Mass ratio] 1.5 {ratio} Normal 1.0 - 2.5 [employer], [facility].; [employer], [employer]. ALP [Catalytic activity/Vol] 55 U/L Normal 37 - 153 U/L [employer], [facility].; [employer], [employer] ALT [Catalytic activity/Vol] 19 U/L Normal 6 - 29 U/L [employer], [facility].; [employer], [employer] AST [Catalytic activity/Vol] 18 U/L Normal 10 - 35 U/L [employer], [employer], [employer] Bilirubin [Mass/Vol] 0.4 mg/dL Normal 0.2 - 1 .2 mg/dL [employer] [facility], [employer].; [employer], [employer] Calcium [Mass/Vol] 9.3 mg/dL Normal 8.6 - 10. 4 mg/dL [employer] [facility], [employer], [employer] Chloride [Moles/Vol] 105 mmol/L Normal 98 - 11 0 mmol/L [facility].; [facility], [facility] Cholesterol [Mass/Vol] 190 mg/dL Normal Ho [facility].; [facility], [facility] Cholesterol in HDL [Mass/Vol] 66 mg/dL Normal [facility].; [facility], [facility] Cholesterol in LDL [Mass/Vol] 103 mg/dL Abnormal [facility].; [facility] [employer] [facility] CO2 [Moles/Vol] 25 mmol/L Normal 20 - 32 mmol/L [facility].; [facility], [facility] Creatinine [Mass/Vol] 0.66 mg/dL Normal 0.60 - 1.00 mg/dL [facility], [facility].; [facility], [facility] Free T4 [Mass/Vol] 1.0 ng/dL Normal 0.8 - 1.8 ng/dL [facility], [facility].; [facility], [facility] GFR/1.73 sq M.predicted among non-blacks MDRD (S/P/Bld) [Vol rate/Area] 91 mL/min/{1.73_m2} Normal [facility].; [facility], [facility] Glucose [Mass/Vol] 96 mg/dL Normal 65 - 99 mg/dL [facility], [facility].; [facility], [facility]. Potassium [Moles/Vol] 4.4 mmol/L Normal 3.5 - 5.3 mmol/L [facility], [facility].; [facility], [facility] Protein [Mass/Vol] 6.7 g/dL Normal 6.1 - 8.1 g/dL [facility], [facility].; [facility], [facility]. Sodium [Moles/Vol] 140 mmol/L Normal 135 - 146 mmol/L [facility], [facility].; [facility], [facility]. Triglyceride [Mass/Vol] 116 mg/dL Normal [facility], [facility].; [facility], [facility]. TSH Qn 2.46 m[IU]/L Normal 0.40 - 4.50 {mIU/L} [facility], [facility].; [facility], [facility] Urea nitrogen [Mass/Vol] 21 mg/dL Normal 7 - 25 mg/dL [facility] [employer] [facility].; [facility] Laboratory - Hematology and Cell countson 03-17-2025 Basophils (Bld) [#/Vol] 0.055 10*3/uL Normal 0 - 200 {cells/uL} [facility].; [facility], [facility] Basophils/100 WBC (Bld) 0.5 % Normal [facility].; [employer] [facility], [facility] Eosinophils (Bld) [#/Vol] 0.154 10*3/uL Normal 15 - 500 {cells/uL} [facility].; [facility] [employer] [facility] Eosinophils/100 WBC (Bld) 1.4 % Normal [facility].; [employer] [facility] [employer] [facility] Erythrocyte distribution width (RBC) [Ratio] 14.0 % Normal 11.0 - 15.0 % [facility].; [employer], [facility] Hematocrit (Bld) [Volume fraction] 42.3 % Normal 35.0 - 45.0 % [employer] [facility] [employer] [facility].; [employer], [facility]. Hemoglobin (Bld) [Mass/Vol] 13.0 g/dL Normal 11.7 - 15.5 g/dL [facility].; [employer], [facility]. Lymphocytes (Bld) [#/Vol] 1.606 10*3/uL Normal 850 - 3900 {cells/uL} [facility].; [employer] [facility] Lymphocytes/100 WBC (Bld) 14.6 % Normal [facility].; [employer], [facility]. MCH (RBC) [Entitic mass] 29.7 pg Normal 27.0 - 33.0 pg [employer] [facility] [employer] [facility].; [employer], [facility]. MCHC (RBC) [Mass/Vol] 30.7 g/dL Abnormal 32.0 - 36.0 g/dL [facility].; [employer], [facility]. MCV (RBC) [Entitic vol] 96.6 fL Normal 80.0 - 100.0 fL [facility].; [employer], [facility] Monocytes (Bld) [#/Vol] 0.539 10*3/uL Normal 200 - 950 {cells/uL} [employer] [facility].; [employer]. Monocytes/100 WBC (Bld) 4.9 % Normal [employer]. Neutrophils (Bld) [#/Vol] 8.646 10*3/uL Abnormal 1500 - 7800 {cells/uL} [employer], [employer]. Neutrophils/100 WBC (Bld) 78.6 % Normal [employer]. Platelet mean volume (Bld) [Entitic vol] 10.4 fL Normal 7.5 - 12.5 fL [employer], [employer]. Platelets (Bld) [#/Vol] 357 10*3/uL Normal 140 - 400 [employer], [employer] RBC (Bld) [#/Vol] 4.38 10*6/uL Normal 3.80 - 5.10 {Million/u L} [employer], [employer]. WBC (Bld) [#/Vol] 11.0 10*3/uL Abnormal 3.8 - 10.8 [facility] [employer]. No Panel Informationon 03-17 BUN/CREATININE RATIO SEE NOTE: Normal 6 - 22 [facility] [employer], [employer]. CHOL/HDLC RATIO 2.9 Normal [employer]. GLOBULIN 2.7 Normal 1.9 - 3.7 [employer]. NON HDL CHOLESTEROL 124 Normal [facility] [employer]. VITAMIN D,25-OH,TOTAL,IA 26 ng/mL Abnormal 30 - 100 ng/mL [employer].; [employer]. Oncology Visit Reporton 03-02 Oncology Visit Report Normal [facility] Surgery Visit Reporton 03-15 Surgery Visit Report Normal [facility] Carcinoembryonic Antigenon 0 03-10-2025 CEA 6.3 ng/mL High 0.0-4.7 [facility] Comment on above: Result Comment: Nons mokers <3.9 Smokers <5.6[facility] Electrochemiluminescence Immunoassay(ECLIA)Values obtained with different assay methods or kitscannot be used interchangeably. Results cannot beinterpreted as absolute evidence of the presence orabsence of malignant disease.Performed at: [facility] [employer] [id number] Director: Abimael Sheridan PhD, Phone: [phone] Performed By: #### L 100.0100, L500.4050, L3100.2300 ####[facility] [address] [place], [place], [id number] Absolute lymphocyte countOrd ered By: [facility] on 03-09-2025 Lymphocytes Auto (Unsp spec) [#/Vol] 1.75 10*3/uL 0.83-4.51 [facility] Absolute neutrophil countOrd ered By: [facility] 03-09-2025 Neutrophils (Bld) [#/Vol] 5.1 10*3/uL 2.0-7.7 [facility] Anion gap in Serum or Plasma Ordered By: [facility] on 03-09-2025 Anion gap [Moles/Vol] 11 mmol/L 5-15 [facility] Automated lymphocyte count a s percentage of total leukocytesOrdered By: [facility] on 03-09-2025 Lymphocytes/100 WBC Auto (Unsp spec) 22.7 % 19-41 [facility] BUN/creatinine ratioOrdered By: [facility] on 03-09-2025 Urea nitrogen/Creatinine [Mass ratio] 20.1 mg/mg High 10-20 [facility] Basophil percentageOrdered B y: [facility] on 03-09-2025 Basophils/100 WBC (Bld) 1.2 % High 0-1 [facility] Bilirubin, totalOrdered By: [facility] on 03-09-2025 Bilirubin [Mass/Vol] 0.41 mg/dL 0.00-1.30 [facility] CBC W/Diff, Automatedon Absolute Lymph 1.75 X10 3/uL Normal 0.83-4.51 [facility] Comment on above: Performed By: #### L 100.0100, L500.4050, L3100.2300 ####[facility] [address] [place], [address] Absolute Neut 5.1 X10 3/uL Normal 2.0-7.7 [facility] Comment on above: Performed By: #### L 100.0100, L500.4050, L3100.2300 ####[facility] [address] [place], [address] Basophils/100 WBC (Bld) 1.2 % High 0-1 [facility] Comment on above: Performed By: #### L 100.0100, L500.4050, L3100.2300 ####[facility] [address] [place], [address] Eosinophils/100 WBC (Bld) 2.5 % Normal 0-5 [facility] Comment on above: Performed By: #### L 100.0100, L500.4050, L3100.2300 ####[facility] [address] [place], [address] Erythrocyte distribution width (RBC) [Ratio] 12.9 % Normal 11.6-14.6 [facility] Comment on above: Performed By: #### L 100.0100, L500.4050, L3100.2300 ####[facility] [address] [place], [address] Hematocrit (Bld) [Volume fraction] 41.3 % Normal 37-47 [facility] Comment on above: Performed By: #### L 100.0100, L500.4050, L3100.2300 ####[facility] [address] [place], [address] Hemoglobin (Bld) [Mass/Vol] 13.9 g/dL Normal 12.0-15.0 [facility] Comment on above: Performed By: #### L 100.0100, L500.4050, L3100.2300 ####[facility] [address] [place], [address] IG% 0.400 Normal 0.0-0.9 [facility] Comment on above: Result Comment: IG% - Immature Granulocytes (promyelocytes, myelocytes andmetamyelocytes) > 1% indicates that a LEFT SHIFT is Present. Performed By: #### L 100.0100, L500.4050, L3100.2300 ####[facility] [address] [place], [address] Lymphocytes/100 WBC (Bld) 22.7 % Normal 19-41 [facility] Comment on above: Performed By: #### L 100.0100, L500.4050, L3100.2300 ####[facility] [address] [place], [address] MCH (RBC) [Entitic mass] 30.4 pg Normal 27.0-32.0 [facility] Comment on above: Performed By: #### L 100.0100, L500.4050, L3100.2300 ####[facility] [address] [place], [address] MCHC (RBC) [Mass/Vol] 33.7 g/dL Normal 32-36 [facility] Comment on above: Performed By: #### L 100.0100, L500.4050, L3100.2300 ####[facility] [address] [place], [address] MCV (RBC) [Entitic vol] 90.4 fL Normal 81-99 [facility] Comment on above: Performed By: #### L 100.0100, L500.4050, L3100.2300 ####[facility] [address] [place], [address] Monocytes/100 WBC (Bld) 6.7 % Normal 0-10 [facility] Comment on above: Performed By: #### L 100.0100, L500.4050, L3100.2300 ####[facility] [address] [place], [address] Neutrophils/100 WBC (Bld) 66.5 % Normal 47-70 [facility] Comment on above: Performed By: #### L 100.0100, L500.4050, L3100.2300 ####[facility] [address] [place], [address] Nucleated RBC (Bld) [#/Vol] 0 10*3/uL Normal 0-5 [facility] Comment on above: Performed By: #### L 100.0100, L500.4050, L3100.2300 ####[facility] [address] [place], [address] Platelet mean volume (Bld) [Entitic vol] 8.8 fL Normal 6.2-12.0 [facility] Comment on above: Performed By: #### L 100.0100, L500.4050, L3100.2300 ####[facility] [address] [place], [address] Platelets (Bld) [#/Vol] 382 10*3/uL Normal 150-450 [facility] Comment on above: Performed By: #### L 100.0100, L500.4050, L3100.2300 ####[facility] [address] [place], [address] RBC (Bld) [#/Vol] 4.57 10*6/uL Normal 4.2-5.4 [facility] Comment on above: Performed By: #### L 100.0100, L500.4050, L3100.2300 ####[facility] [address] [place], [address] RDW SD 42.3 fl Normal 35.1-43.9 [facility] Comment on above: Performed By: #### L 100.0100, L500.4050, L3100.2300 ####[facility] [address] [place], [address] WBC (Bld) [#/Vol] 7.7 10*3/uL Normal 4.4-11.0 [facility] Comment on above: Performed By: #### L 100.0100, L500.4050, L3100.2300 ####[facility] [address] [place], [address] Carbon dioxide, total [Moles /volume] in Central venous bloodOrdered By: [place] on 03-09-2025 CO2 [Moles/Vol] 25.5 mmol/L 21.0-32.0 [facility] Chloride assayOrdered By: Ru Conn on 03-09-2025 Chloride [Moles/Vol] 102 mmol/L 98-108 [facility] Comprehensive Metabolic Prof ilon 03-09-2025 Albumin [Mass/Vol] 4.1 g/dL Normal 3.4-4.8 [facility] Comment on above: Performed By: #### L 100.0100, L500.4050, L3100.2300 ####[facility] [address] [place], [address] Albumin/Globulin [Mass ratio] 1.3 {ratio} Normal 0.9-2.4 [facility] Comment on above: Performed By: #### L 100.0100, L500.4050, L3100.2300 ####[facility] [address] [place], [address] ALK PHOS 73 U/L Normal 35-104 [facility] Comment on above: Performed By: #### L 100.0100, L500.4050, L3100.2300 ####[facility] [address] [place], [address] ALT [Catalytic activity/Vol] 26 U/L Normal <=34 [facility] Comment on above: Performed By: #### L 100.0100, L500.4050, L3100.2300 ####[facility] [address] [place], [address] AST [Catalytic activity/Vol] 34 U/L High <=31 [facility] Comment on above: Performed By: #### L 100.0100, L500.4050, L3100.2300 ####[facility] [address] [place], [address] Bilirubin [Mass/Vol] 0.41 mg/dL Normal 0.00-1.30 [facility] Comment on above: Performed By: #### L 100.0100, L500.4050, L3100.2300 ####[facility] [address] [place], [address] BUN/CRE 20.1 RATIO High 10-20 [facility] Comment on above: Performed By: #### L 100.0100, L500.4050, L3100.2300 ####[facility] [address] [place], [address] Calcium [Mass/Vol] 9.8 mg/dL Normal 7.6-11.0 [facility] Comment on above: Performed By: #### L 100.0100, L500.4050, L3100.2300 ####[facility] [address] [place], [address] Chloride [Moles/Vol] 102 mmol/L Normal 98-108 [facility] Comment on above: Performed By: #### L 100.0100, L500.4050, L3100.2300 ####[facility] [address] [place], [address] CO2 [Moles/Vol] 25.5 mmol/L Normal 21.0-32.0 [facility] Comment on above: Performed By: #### L 100.0100, L500.4050, L3100.2300 ####[facility] [address] [place], [address] Creatinine [Mass/Vol] 0.74 mg/dL Normal 0.70-1.20 [facility] Comment on above: Performed By: #### L 100.0100, L500.4050, L3100.2300 ####[facility] [address] [place], [address] GAP 11 Normal 5-15 [facility] Comment on above: Performed By: #### L 100.0100, L500.4050, L3100.2300 ####[facility] [address] [place], [address] GFR/1.73 sq M.predicted among non-blacks MDRD (S/P/Bld) [Vol rate/Area] 84 mL/min/{1.73_m2} Normal >60 [facility] Comment on above: Result Comment: mL/m in/1.73m2 CKD-EPI Creatinine Equation (2020) Performed By: #### L 100.0100, L500.4050, L3100.2300 ####[facility] [address] [place], [address] Globulin (S) [Mass/Vol] 3.3 g/dL Normal 2.2-4.2 [facility] Comment on above: Performed By: #### L 100.0100, L500.4050, L3100.2300 ####[facility] [address] [place], [address] Glucose [Mass/Vol] 101 mg/dL High 70-99 [facility] Comment on above: Performed By: #### L 100.0100, L500.4050, L3100.2300 ####[facility] [address] [place], [address] Potassium [Moles/Vol] 4.2 mmol/L Normal 3.3-5.1 [facility] Comment on above: Performed By: #### L 100.0100, L500.4050, L3100.2300 ####[facility] [address] [place], [address] Sodium [Moles/Vol] 139 mmol/L Normal 133-145 [facility] Comment on above: Performed By: #### L 100.0100, L500.4050, L3100.2300 ####[facility] [address] [place], [address] T PROT 7.4 g/dL Normal 5.9-8.4 [facility] Comment on above: Performed By: #### L 100.0100, L500.4050, L3100.2300 ####[facility] [address] [place], [address] Urea nitrogen [Mass/Vol] 15 mg/dL Normal 4-19 [facility] Comment on above: Performed By: #### L 100.0100, L500.4050, L3100.2300 ####[facility] [address] [place], [address] Eosinophil percentageOrdered By: [place] on 03-09-2025 Eosinophils/100 WBC (Bld) 2.5 % 0-5 [facility] Erythrocyte distribution wid th ratioOrdered By: [place] on 03-09-2025 Erythrocyte distribution width (RBC) [Ratio] 12.9 % 11.6-14.6 [facility] Erythrocyte distribution wid th standard deviationOrdered By: [facility] on 03-09-2025 Erythrocyte distribution width (RBC) [Ratio] 42.3 fl 35.1-43.9 [facility] Glomerular filtration rate ( GFR) estimation/1.73 sq m using serum, plasma, or whole bOrdered By: [place] on 03-09-2025 GFR/1.73 sq M.predicted among non-blacks MDRD (S/P/Bld) [Vol rate/Area] 84 mL/min/{1.73_m2} >60 [facility] Comment on above: mL/min/1.73m2 CKD-EP I Creatinine Equation (2020) Hematocrit Auto (Bld) [Volum e fraction]Ordered By: [place] on 03-09-2025 Hematocrit (Bld) [Volume fraction] 41.3 % 37-47 [facility] Hemoglobin measurementOrdere d By: [place] on 03-09-2025 Hemoglobin (Bld) [Mass/Vol] 13.9 g/dL 12.0-15.0 [facility] Immature granulocytes/100 WB C Auto (Bld)Ordered By: [place] on 03-09-2025 Immature granulocytes/100 WBC (Bld) 0.400 % 0.0-0.9 [facility] Comment on above: IG% - Immature Granu locytes (promyelocytes, myelocytes and metamyelocytes) > 1% indicates that a LEFT SHIFT is Present. Laboratory - Chemistry and C hemistry - challengeOrdered By: [place] on 03-09-2025 AST [Catalytic activity/Vol] 34 U/L High <32 [facility] MCV (mean corpuscular volume ) determinationOrdered By: [place] on 03-09-2025 MCV (RBC) [Entitic vol] 90.4 fL 81-99 [facility] Mean corpuscular hemoglobin (MCH) determinationOrdered By: [place] on 03-09-2025 MCH (RBC) [Entitic mass] 30.4 pg 27.0-32.0 [facility] Mean corpuscular hemoglobin concentration (MCHC) determinationOrdered By: [place] on 03-09-2025 MCHC (RBC) [Mass/Vol] 33.7 g/dL 32-36 [facility] Mean platelet volume determi nationOrdered By: [place] on 03-09-2025 Platelet mean volume (Bld) [Entitic vol] 8.8 fL 6.2-12.0 [facility] Monocyte percentageOrdered B y: [place] on 03-09-2025 Monocytes/100 WBC (Bld) 6.7 % 0-10 [facility] Neutrophil percentageOrdered By: [place] on 03-09-2025 Neutrophils/100 WBC (Bld) 66.5 % 47-70 [facility] Nucleated red blood cell per centageOrdered By: [place] on 03-09-2025 Nucleated RBC/100 WBC (Bld) [Ratio] 0 % 0-5 [facility] Oncology Visit Reporton 05-0 Oncology Visit Report Normal [facility] Platelet countOrdered By: Ru Conn on 03-09-2025 Platelets (Bld) [#/Vol] 382 10*3/uL 150-450 [facility] Potassium measurement (mass/ volume)Ordered By: [place] on 03-09-2025 Potassium (Unsp spec) [Mass/Vol] 4.2 mmol/L 3.3-5.1 [facility] RBC Auto (Bld) [#/Vol]Ordere d By: [place] on 03-09-2025 RBC (Bld) [#/Vol] 4.57 10*6/uL 4.2-5.4 [facility] Serum creatinine measurement (mass/volume)Ordered By: [place] on 03-09-2025 Creatinine [Mass/Vol] 0.74 mg/dL 0.70-1.20 [facility] Serum globulin measurementOr dered By: [place] on 03-09-2025 Globulin (S) [Mass/Vol] 3.3 g/dL 2.2-4.2 [facility] Serum glucose measurement (m ass/volume)Ordered By: [place] on 03-09-2025 Glucose [Mass/Vol] 101 mg/dL High 70-99 [facility] Serum or plasma alanine rojo otransferase (ALT) measurementOrdered By: [place] on 03-09-2025 ALT [Catalytic activity/Vol] 26 U/L <35 [facility] Serum or plasma albumin alfredo urement (mass/volume)Ordered By: [place] on 03-09-2025 Albumin [Mass/Vol] 4.1 g/dL 3.4-4.8 [facility] Serum or plasma albumin/glob ulin mass ratioOrdered By: [place] on 03-09-2025 Albumin/Globulin [Mass ratio] 1.3 {ratio} 0.9-2.4 [facility] Serum or plasma alkaline marisabel sphatase measurementOrdered By: [place] on 03-09-2025 ALP [Catalytic activity/Vol] 73 U/L 35-104 [facility] Serum or plasma calcium alfredo urement (mass/volume)Ordered By: [place] on 03-09-2025 Calcium [Mass/Vol] 9.8 mg/dL 7.6-11.0 [facility] Serum or plasma carcinoembry onic antigen measurement (mass/volume)Ordered By: [place] on 03-09-2025 Carcinoembryonic Ag [Mass/Vol] 6.3 ng/mL High 0.0-4.7 [facility] Comment on above: Nonsmokers <3.9 Smok ers <5.6[employer] Electrochemiluminescence Immunoassay(ECLIA)Values obtained with different assay methods or kitscannot be used interchangeably. Results cannot beinterpreted as absolute evidence of the presence orabsence of malignant disease.Performed at: [facility] Director: Abimael Sheridan PhD, Phone: [phone] Serum or plasma urea nitroge n measurement (mass/volume)Ordered By: [place] on 03-09-2025 Urea nitrogen [Mass/Vol] 15 mg/dL 4-19 [facility] Sodium levelOrdered By: Kurt Conn on 03-09-2025 Sodium [Moles/Vol] 139 mmol/L 133-145 [facility] Total proteinOrdered By: [place] Conn on 03-09-2025 Protein [Mass/Vol] 7.4 g/dL 5.9-8.4 [facility] White blood cell (WBC) count Ordered By: [place] on 03-09-2025 WBC (Bld) [#/Vol] 7.7 10*3/uL 4.4-11.0 [facility] CBC,PLATELETSon 01-28-2025 Erythrocyte distribution width (RBC) [Ratio] 13.1 % 10.8 - 14.9 % [facility] Hematocrit (Bld) [Volume fraction] 36.4 % 34.9 - 44.3 % [facility] Hemoglobin (Bld) [Mass/Vol] 12.1 g/dL 11.4 - 15.2 g/dL [facility] Interpretation and review of laboratory results Abnormal [facility] MCH (RBC) [Entitic mass] 30.3 pg 25.9 - 33.9 pg [facility] MCHC (RBC) [Mass/Vol] 33.2 g/dL 31.4 - 35.9 g/dL [facility] MCV (RBC) [Entitic vol] 91 fL 79.6 - 97.7 fL [facility] Platelet mean volume (Bld) [Entitic vol] 8.8 fL 8.5 - 12.2 fL [facility] Platelets (Bld) [#/Vol] 377 10*3/uL 150 - 393 K/uL [facility] RBC (Bld) [#/Vol] 4 10*6/uL [facility] WBC (Bld) [#/Vol] 11.33 10*3/uL High 3.99 - 11.19 K/uL [facility] Hematocrit (Bld) [Volume fraction] 36.4 % Normal 34.9-44.3 [facility] Comment on above: Performed By: #### [facility] #### [facility] (DEFAULT) [address] [address] Hemoglobin (Bld) [Mass/Vol] 12.1 g/dL Normal 11.4-15.2 [facility] Comment on above: Performed By: #### [facility] #### [facility] (DEFAULT) [address] [address] MCV (RBC) [Entitic vol] 91.0 fL Normal 79.6-97.7 [facility] Comment on above: Performed By: #### [facility] #### [facility] (DEFAULT) [address] [address] Mean Cell Hgb 30.3 pg Normal 25.9-33.9 [facility] Comment on above: Performed By: #### H EMOGC #### U [facility] (DEFAULT) [address] [address] Mean Cell Hgb Conc 33.2 g/dL Normal 31.4-35.9 [facility] Comment on above: Performed By: #### H EMOGC #### U [facility] (DEFAULT) [address] [address] Platelet mean volume (Bld) [Entitic vol] 8.8 fL Normal 8.5-12.2 [facility] Comment on above: Performed By: #### H EMOGC #### [facility] (DEFAULT) [address] [address] Platelets (Bld) [#/Vol] 377 10*3/uL Normal 150-393 [facility] Comment on above: Performed By: #### H EMOGC #### [facility] (DEFAULT) [address] [address] RBC (Bld) [#/Vol] 4.00 10*6/uL Normal 3.91-5.04 [facility] Comment on above: Performed By: #### H EMOGC #### [facility] (DEFAULT) [address] [address] RBC Distribution 13.1 % Normal 10.8-14.9 [facility] Comment on above: Performed By: #### H EMOGC #### U [facility] (DEFAULT) [address] [address] WBC (Bld) [#/Vol] 11.33 10*3/uL High 3.99-11.19 [facility] Comment on above: Performed By: #### H EMOGC #### U [facility] (DEFAULT) [address] [address] CHEM 7 (LYTES,BUN,CREA,GLUC) on 01-28-2025 Anion gap [Moles/Vol] 11 mmol/L 7 - 17 mmol/L [facility] Chloride [Moles/Vol] 104 mmol/L 98 - 10 8 mmol/L [facility] CO2 [Moles/Vol] 25 mmol/L 21 - 31 mmol/L [facility] Creatinine [Mass/Vol] 0.66 mg/dL 0.50 - 1.20 mg/dL [facility] eGFR, CKD-EPI, Female - PINF [facility] Comment on above: Reported eGFR is bas ed on the CKD-EPI 2020 equation using creatinine, age, and sex. Glucose [Mass/Vol] 98 mg/dL 70 - 179 mg/dL [facility] Osmolality Calc [Osmolality] 285 [facility] Potassium [Moles/Vol] 4.2 mmol/L 3.5 - 5.0 mmol/L [facility] Sodium [Moles/Vol] 136 mmol/L 135 - 145 mmol/L [facility] Urea nitrogen [Mass/Vol] 10 mg/dL 7 - 25 mg/dL [facility] Urea nitrogen/Creatinine [Mass ratio] 15 mg/mg [facility] Anion gap [Moles/Vol] 11 mmol/L Normal 7-17 [facility] Comment on above: Performed By: #### MILAGRO HUNT, CHM7 #### [facility] (DEFAULT) [address] [place] [address] Chloride [Moles/Vol] 104 mmol/L Normal 98-108 [facility] Comment on above: Performed By: #### MILAGRO HUNT, CHM7 #### [facility] (DEFAULT) [address] [place] [address] CO2 [Moles/Vol] 25 mmol/L Normal 21-31 [facility] Comment on above: Performed By: #### MILAGRO HUNT, CHM7 #### [facility] (DEFAULT) [address] [place] [address] Creatinine [Mass/Vol] 0.66 mg/dL Normal 0.50-1.20 [facility] Comment on above: Performed By: #### MILAGRO HUNT CHM7 #### [facility] (DEFAULT) [address] [place] [address] eGFR, CKD-EPI, Female > Normal >=60 [facility] Comment on above: Result Comment: Repo rted eGFR is based on the CKD-EPI 2020 equation using creatinine, age, and sex. Performed By: #### MILAGRO HUNT CHM7 #### [facility] (DEFAULT) [address] [place] [address] Glucose [Mass/Vol] 98 mg/dL Normal Nonfastin g : 70-179 mg/dL; Fastin-99 [facility] Comment on above: Performed By: #### MILAGRO HUNT CHM7 #### [facility] (DEFAULT) [address] [place] [address] Osmolality [Osmolality] 285 mosm/kg Normal 278-305 [facility] Comment on above: Performed By: #### MILAGRO HUNT CHM7 #### [facility] (DEFAULT) [address] [place] [address] Potassium [Moles/Vol] 4.2 mmol/L Normal 3.5-5.0 [facility] Comment on above: Performed By: #### MILAGRO HUNT CHM7 #### [facility] (DEFAULT) [address] [place] [address] Sodium [Moles/Vol] 136 mmol/L Normal 135-145 [facility] Comment on above: Performed By: #### MILAGRO HUNT CHM7 #### [facility] (DEFAULT) [address] [place] [address] Urea nitrogen [Mass/Vol] 10 mg/dL Normal 7-25 [facility] Comment on above: Performed By: #### MILAGRO HUNT CHM7 #### [facility] (DEFAULT) [address] [place] [address] Urea nitrogen/Creatinine [Mass ratio] 15 mg/mg Normal [facility] Comment on above: Performed By: #### MILAGRO HUNT CHM7 #### [facility] (DEFAULT) [address] [place] [address] MAGNESIUMon 01-28-2025 Magnesium [Mass/Vol] 1.8 mg/dL 1.6 - 2 .6 mg/dL [facility] Magnesium [Mass/Vol] 1.8 mg/dL Normal 1.6-2.6 [facility] Comment on above: Performed By: #### MILAGRO HUNT CHM7 #### [facility] (DEFAULT) [address] [place] [address] No Panel Informationon 01-28 Interpretation and review of laboratory results Normal [facility] PHOSPHATE, INORGANICon 01-28 Phosphate [Mass/Vol] 3.2 mg/dL 2.2 - 4 .6 mg/dL [facility] Phosphorous 3.2 mg/dL Normal 2.2-4.6 [facility] Comment on above: Performed By: #### MILAGRO HUNT CHM7 #### [facility] (DEFAULT) [address] [place] [address] XR ABDOMEN 1 VIEW PORTABLEon 01-28-2025 XR [...] postoperative ileus versus less likely obstruction. Normal [facility] XR Abdomen Single viewon IMPRESSION: Worsening [...] probable postoperative ileus versus less likely obstruction. [facility] Radiology Study observation (narrative) [facility] XR Abdomen Single viewOrdere d By: Katia Palencia on 01-28-2025 [facility] Work Phone: CBC,PLATELETSon 01-27-2025 Erythrocyte distribution width (RBC) [Ratio] 13.2 % 10.8 - 14.9 % [facility] Hematocrit (Bld) [Volume fraction] 37.2 % 34.9 - 44.3 % [facility] Hemoglobin (Bld) [Mass/Vol] 11.7 g/dL 11.4 - 15.2 g/dL [facility] Interpretation and review of laboratory results Abnormal [facility] MCH (RBC) [Entitic mass] 29.2 pg 25.9 - 33.9 pg [facility] MCHC (RBC) [Mass/Vol] 31.5 g/dL 31.4 - 35.9 g/dL [facility] MCV (RBC) [Entitic vol] 92.8 fL 79.6 - 97.7 fL [facility] Platelet mean volume (Bld) [Entitic vol] 9.8 fL 8.5 - 12.2 fL [facility] Platelets (Bld) [#/Vol] 379 10*3/uL 150 - 393 K/uL [facility] RBC (Bld) [#/Vol] 4.01 10*6/uL [facility] WBC (Bld) [#/Vol] 11.95 10*3/uL High 3.99 - 11.19 K/uL [facility] Hematocrit (Bld) [Volume fraction] 37.2 % Normal 34.9-44.3 [facility] Comment on above: Performed By: #### [facility] #### [facility] (DEFAULT) [address] [address] Hemoglobin (Bld) [Mass/Vol] 11.7 g/dL Normal 11.4-15.2 [facility] Comment on above: Performed By: #### H EMO #### [facility] (DEFAULT) [address] [address] MCV (RBC) [Entitic vol] 92.8 fL Normal 79.6-97.7 [facility] Comment on above: Performed By: #### H EMOGC #### [facility] (DEFAULT) [address] [address] Mean Cell Hgb 29.2 pg Normal 25.9-33.9 [facility] Comment on above: Performed By: #### H EMOGC #### [facility] (DEFAULT) [address] [address] Mean Cell Hgb Conc 31.5 g/dL Normal 31.4-35.9 [facility] Comment on above: Performed By: #### H EMOGC #### [facility] (DEFAULT) [address] [place] [address] Platelet mean volume (Bld) [Entitic vol] 9.8 fL Normal 8.5-12.2 [facility] Comment on above: Performed By: #### H EMOGC #### [facility] (DEFAULT) [address] [place] [address] Platelets (Bld) [#/Vol] 379 10*3/uL Normal 150-393 [facility] Comment on above: Performed By: #### H EMO #### [facility] (DEFAULT) [address] [place] [address] RBC (Bld) [#/Vol] 4.01 10*6/uL Normal 3.91-5.04 [facility] Comment on above: Performed By: #### H EMOGC #### [facility] (DEFAULT) [address] [place] [address] RBC Distribution 13.2 % Normal 10.8-14.9 [facility] Comment on above: Performed By: #### H EMOGC #### [facility] (DEFAULT) [address] [place] [address] WBC (Bld) [#/Vol] 11.95 10*3/uL High 3.99-11.19 [facility] Comment on above: Performed By: #### H EMOGC #### [facility] (DEFAULT) [address] [place] [address] CHEM 7 (LYTES,BUN,CREA,GLUC) on 01-27-2025 Anion gap [Moles/Vol] 12 mmol/L 7 - 17 mmol/L [facility] Chloride [Moles/Vol] 105 mmol/L 98 - 10 8 mmol/L [facility] CO2 [Moles/Vol] 23 mmol/L 21 - 31 mmol/L [facility] Creatinine [Mass/Vol] 0.85 mg/dL 0.50 - 1.20 mg/dL [facility] eGFR, CKD-EPI, Female 71 - PINF [facility] Comment on above: Reported eGFR is bas ed on the CKD-EPI 2020 equation using creatinine, age, and sex. Glucose [Mass/Vol] 84 mg/dL 70 - 179 mg/dL [facility] Osmolality Calc [Osmolality] 284 [facility] Potassium [Moles/Vol] 4 mmol/L 3.5 - 5.0 mmol/L [facility] Sodium [Moles/Vol] 136 mmol/L 135 - 145 mmol/L [facility] Urea nitrogen [Mass/Vol] 12 mg/dL 7 - 25 mg/dL [facility] Urea nitrogen/Creatinine [Mass ratio] 14 mg/mg [facility] Anion gap [Moles/Vol] 12 mmol/L Normal 7-17 [facility] Comment on above: Performed By: #### [facility] #### [facility] (DEFAULT) [address] [place] [address] Chloride [Moles/Vol] 105 mmol/L Normal 98-108 [facility] Comment on above: Performed By: #### [facility] #### [facility] (DEFAULT) [address] [place] [address] CO2 [Moles/Vol] 23 mmol/L Normal 21-31 [facility] Comment on above: Performed By: #### [facility] #### [facility] (DEFAULT) [address] [place] [address] Creatinine [Mass/Vol] 0.85 mg/dL Normal 0.50-1.20 [facility] Comment on above: Performed By: #### [facility] #### [facility] (DEFAULT) [address] [place] [address] GFR/1.73 sq M.predicted among non-blacks MDRD (S/P/Bld) [Vol rate/Area] 71 mL/min/{1.73_m2} Normal >=60 [facility] Comment on above: Result Comment: Repo rted eGFR is based on the CKD-EPI 2020 equation using creatinine, age, and sex. Performed By: #### H EMOGC #### [facility] (DEFAULT) [address] [place] [address] Glucose [Mass/Vol] 84 mg/dL Normal Nonfastin g : 70-179 mg/dL; Fastin-99 [facility] Comment on above: Performed By: #### H EMOGC #### [facility] (DEFAULT) [address] [place] [address] Osmolality [Osmolality] 284 mosm/kg Normal 278-305 [facility] Comment on above: Performed By: #### H EMOGC #### [facility] (DEFAULT) [address] [place] [address] Potassium [Moles/Vol] 4.0 mmol/L Normal 3.5-5.0 [facility] Comment on above: Performed By: #### H EMOGC #### [facility] (DEFAULT) [address] [place] [address] Sodium [Moles/Vol] 136 mmol/L Normal 135-145 [facility] Comment on above: Performed By: #### H EMOGC #### [facility] (DEFAULT) [address] [place] [address] Urea nitrogen [Mass/Vol] 12 mg/dL Normal 7-25 [facility] Comment on above: Performed By: #### H EMOGC #### [facility] (DEFAULT) [address] [place] [address] Urea nitrogen/Creatinine [Mass ratio] 14 mg/mg Normal [facility] Comment on above: Performed By: #### H EMOGC #### [facility] (DEFAULT) [address] [place] [address] MAGNESIUMon 01-27-2025 Magnesium [Mass/Vol] 2.1 mg/dL 1.6 - 2 .6 mg/dL [facility] Magnesium [Mass/Vol] 2.1 mg/dL Normal 1.6-2.6 [facility] Comment on above: Performed By: #### [facility] #### [facility] (DEFAULT) [address] [place] [address] No Panel Informationon 01-27 Interpretation and review of laboratory results Normal [facility] PHOSPHATE, INORGANICon 01-27 Phosphate [Mass/Vol] 3.5 mg/dL 2.2 - 4 .6 mg/dL [facility] Phosphorous 3.5 mg/dL Normal 2.2-4.6 [facility] Comment on above: Performed By: #### [facility] #### [facility] (DEFAULT) [address] [place] [id number] XR ABDOMEN 1 VIEW PORTABLEon 01-27-2025 XR [...] emphysema. IMPRESSION: Unchanged small bowel ileus. Normal [facility] XR Abdomen Single viewon IMPRESSION: Unchanged [...] emphysema. IMPRESSION IMPRESSION: Unchanged small bowel ileus. [facility] Radiology Study observation (narrative) [facility] XR Abdomen Single viewOrdere d By: Maria Victoria Vaca on 01-27-2025 [facility] Work Phone: CARDIAC RHYTHMon 01-26-2025 [facility] CBC,PLATELETSon 01-26-2025 Erythrocyte distribution width (RBC) [Ratio] 12.8 % 10.8 - 14.9 % [facility] Hematocrit (Bld) [Volume fraction] 39.2 % 34.9 - 44.3 % [facility] Hemoglobin (Bld) [Mass/Vol] 12.6 g/dL 11.4 - 15.2 g/dL [facility] Interpretation and review of laboratory results Abnormal [facility] MCH (RBC) [Entitic mass] 29.2 pg 25.9 - 33.9 pg [facility] MCHC (RBC) [Mass/Vol] 32.1 g/dL 31.4 - 35.9 g/dL [facility] MCV (RBC) [Entitic vol] 91 fL 79.6 - 97.7 fL [facility] Platelet mean volume (Bld) [Entitic vol] 9.2 fL 8.5 - 12.2 fL [facility] Platelets (Bld) [#/Vol] 355 10*3/uL 150 - 393 K/uL [facility] RBC (Bld) [#/Vol] 4.31 10*6/uL [facility] WBC (Bld) [#/Vol] 11.52 10*3/uL High 3.99 - 11.19 K/uL [facility] Hematocrit (Bld) [Volume fraction] 39.2 % Normal 34.9-44.3 [facility] Comment on above: Performed By: #### MILAGRO HUNT, CHM7 #### [facility] (DEFAULT) [address] [address] Hemoglobin (Bld) [Mass/Vol] 12.6 g/dL Normal 11.4-15.2 [facility] Comment on above: Performed By: #### MILAGRO HUNT, CHM7 #### [facility] (DEFAULT) [address] [address] MCV (RBC) [Entitic vol] 91.0 fL Normal 79.6-97.7 [facility] Comment on above: Performed By: #### MILAGRO HUNT, CHM7 #### [facility] (DEFAULT) [address] [place] [address] Mean Cell Hgb 29.2 pg Normal 25.9-33.9 [facility] Comment on above: Performed By: #### MILAGRO HUNT, CHM7 #### [facility] (DEFAULT) [address] [place] [address] Mean Cell Hgb Conc 32.1 g/dL Normal 31.4-35.9 [facility] Comment on above: Performed By: #### MILAGRO HUNT, CHM7 #### [facility] (DEFAULT) [address] [address] Platelet mean volume (Bld) [Entitic vol] 9.2 fL Normal 8.5-12.2 [facility] Comment on above: Performed By: #### MILAGRO HUNT, CHM7 #### [facility] (DEFAULT) [address] [place] [address] Platelets (Bld) [#/Vol] 355 10*3/uL Normal 150-393 [facility] Comment on above: Performed By: #### MILAGRO HUNT, CHM7 #### [facility] (DEFAULT) [address] [place] [address] RBC (Bld) [#/Vol] 4.31 10*6/uL Normal 3.91-5.04 [facility] Comment on above: Performed By: #### MILAGRO HUNT, ANITAM7 #### [facility] (DEFAULT) [address] [place] [address] RBC Distribution 12.8 % Normal 10.8-14.9 [facility] Comment on above: Performed By: #### MILAGRO HUNT, CHM7 #### [facility] (DEFAULT) [address] [place] [address] WBC (Bld) [#/Vol] 11.52 10*3/uL High 3.99-11.19 [facility] Comment on above: Performed By: #### MILAGRO HUNT, CHM7 #### [facility] (DEFAULT) [address] [place] [address] CHEM 7 (LYTES,BUN,CREA,GLUC) on 01-26-2025 Anion gap [Moles/Vol] 9 mmol/L 7 - 17 mmol/L [facility] Chloride [Moles/Vol] 105 mmol/L 98 - 10 8 mmol/L [facility] CO2 [Moles/Vol] 27 mmol/L 21 - 31 mmol/L [facility] Creatinine [Mass/Vol] 0.53 mg/dL 0.50 - 1.20 mg/dL [facility] eGFR, CKD-EPI, Female - PINF [facility] Comment on above: Reported eGFR is bas ed on the CKD-EPI 2020 equation using creatinine, age, and sex. Glucose [Mass/Vol] 109 mg/dL 70 - 179 mg/dL [facility] Osmolality Calc [Osmolality] 287 [facility] Potassium [Moles/Vol] 4.3 mmol/L 3.5 - 5.0 mmol/L [facility] Sodium [Moles/Vol] 137 mmol/L 135 - 145 mmol/L [facility] Urea nitrogen [Mass/Vol] 9 mg/dL 7 - 25 mg/dL [facility] Urea nitrogen/Creatinine [Mass ratio] 17 mg/mg [facility] Anion gap [Moles/Vol] 9 mmol/L Normal 7-17 [facility] Comment on above: Performed By: #### MILAGRO HUNT, CHM7 #### [facility] (DEFAULT) [address] [place] [address] Chloride [Moles/Vol] 105 mmol/L Normal 98-108 [facility] Comment on above: Performed By: #### MILAGRO HUNT, CHM7 #### [facility] (DEFAULT) [address] [place] [address] CO2 [Moles/Vol] 27 mmol/L Normal 21-31 [facility] Comment on above: Performed By: #### MILAGRO HUNT, CHM7 #### [facility] (DEFAULT) [address] [place] [address] Creatinine [Mass/Vol] 0.53 mg/dL Normal 0.50-1.20 [facility] Comment on above: Performed By: #### MILAGRO HUNT, CHM7 #### [facility] (DEFAULT) [address] [place] [address] eGFR, CKD-EPI, Female > Normal >=60 [facility] Comment on above: Result Comment: Repo rted eGFR is based on the CKD-EPI 2020 equation using creatinine, age, and sex. Performed By: #### MILAGRO HUNT, CHM7 #### [facility] (DEFAULT) [address] [place] [address] Glucose [Mass/Vol] 109 mg/dL Normal Nonfastin g : 70-179 mg/dL; Fastin-99 [facility] Comment on above: Performed By: #### MILAGRO HUNT, CHM7 #### [facility] (DEFAULT) [address] [place] [address] Osmolality [Osmolality] 287 mosm/kg Normal 278-305 [facility] Comment on above: Performed By: #### MILAGRO HUNT, CHM7 #### [facility] (DEFAULT) [address] [place] [address] Potassium [Moles/Vol] 4.3 mmol/L Normal 3.5-5.0 [facility] Comment on above: Performed By: #### MILAGRO HUNT, CHM7 #### [facility] (DEFAULT) [address] [place] [address] Sodium [Moles/Vol] 137 mmol/L Normal 135-145 [facility] Comment on above: Performed By: #### MILAGRO HUNT, CHM7 #### [facility] (DEFAULT) [address] [place] [address] Urea nitrogen [Mass/Vol] 9 mg/dL Normal 7-25 [facility] Comment on above: Performed By: #### MILAGRO HUNT, CHM7 #### [facility] (DEFAULT) [address] [place] [address] 269[address] Urea nitrogen/Creatinine [Mass ratio] 17 mg/mg Normal [facility] Comment on above: Performed By: #### MILAGRO HUNT, CHM7 #### [facility] (DEFAULT) [address] [place] [address] MAGNESIUMon 01-26-2025 Magnesium [Mass/Vol] 2.2 mg/dL 1.6 - 2 .6 mg/dL [facility] Magnesium [Mass/Vol] 2.2 mg/dL Normal 1.6-2.6 [facility] Comment on above: Performed By: #### M MILAGRO NOGUERA CHM7 #### [facility] (DEFAULT) [address] [place] [address] No Panel Informationon 01-26 Interpretation and review of laboratory results Normal [facility] PHOSPHATE, INORGANICon 01-26 Phosphate [Mass/Vol] 2.6 mg/dL 2.2 - 4 .6 mg/dL [facility] Phosphorous 2.6 mg/dL Normal 2.2-4.6 [facility] Comment on above: Performed By: #### M MILAGRO NOGUERA CHM7 #### [facility] (DEFAULT) [address] [place], [place] [id number] CBC,PLATELETSon 01-25-2025 Erythrocyte distribution width (RBC) [Ratio] 12.7 % 10.8 - 14.9 % [facility] Hematocrit (Bld) [Volume fraction] 43.3 % 34.9 - 44.3 % [facility] Hemoglobin (Bld) [Mass/Vol] 14 g/dL 11.4 - 15.2 g/dL [facility] Interpretation and review of laboratory results Normal [facility] MCH (RBC) [Entitic mass] 29.3 pg 25.9 - 33.9 pg [facility] MCHC (RBC) [Mass/Vol] 32.3 g/dL 31.4 - 35.9 g/dL [facility] MCV (RBC) [Entitic vol] 90.6 fL 79.6 - 97.7 fL [facility] Platelet mean volume (Bld) [Entitic vol] 9.5 fL 8.5 - 12.2 fL [facility] Platelets (Bld) [#/Vol] 330 10*3/uL 150 - 393 K/uL [facility] RBC (Bld) [#/Vol] 4.78 10*6/uL [facility] WBC (Bld) [#/Vol] 10.65 10*3/uL 3.99 - 11.19 K/uL [facility] Hematocrit (Bld) [Volume fraction] 43.3 % Normal 34.9-44.3 [facility] Comment on above: Performed By: #### H EMOGC #### [facility] (DEFAULT) [address] [place] [address] Hemoglobin (Bld) [Mass/Vol] 14.0 g/dL Normal 11.4-15.2 [facility] Comment on above: Performed By: #### H EMOGC #### [facility] (DEFAULT) [address] [place] [address] MCV (RBC) [Entitic vol] 90.6 fL Normal 79.6-97.7 [facility] Comment on above: Performed By: #### H EMOGC #### [facility] (DEFAULT) [address] [place] [address] Mean Cell Hgb 29.3 pg Normal 25.9-33.9 [facility] Comment on above: Performed By: #### H EMOGC #### [facility] (DEFAULT) [address] [place] [address] 28547 Mean Cell Hgb Conc 32.3 g/dL Normal 31.4-35.9 [facility] Comment on above: Performed By: #### H EMOGC #### [facility] (DEFAULT) [address] [place] [address] Platelet mean volume (Bld) [Entitic vol] 9.5 fL Normal 8.5-12.2 [facility] Comment on above: Performed By: #### H EMOGC #### [facility] (DEFAULT) [address] [place] [address] Platelets (Bld) [#/Vol] 330 10*3/uL Normal 150-393 [facility] Comment on above: Performed By: #### H EMOGC #### [facility] (DEFAULT) [address] [place] [address]843 RBC (Bld) [#/Vol] 4.78 10*6/uL Normal 3.91-5.04 [facility] Comment on above: Performed By: #### [facility] #### [facility] (DEFAULT) [address] [place] [address]61 RBC Distribution 12.7 % Normal 10.8-14.9 [facility] Comment on above: Performed By: #### [facility] #### [facility] (DEFAULT) [address] [place] [address] WBC (Bld) [#/Vol] 10.65 10*3/uL Normal 3.99-11.19 [facility] Comment on above: Performed By: #### [facility] #### [facility] (DEFAULT) [address] [place] [address] CHEM 7 (LYTES,BUN,CREA,GLUC) Ordered By: Randi Bonner on 01-25-2025 Anion gap [Moles/Vol] 13 mmol/L 7 - 17 mmol/L [facility] Chloride [Moles/Vol] 105 mmol/L 98 - 10 8 mmol/L [facility] CO2 [Moles/Vol] 26 mmol/L 21 - 31 mmol/L [facility] Creatinine [Mass/Vol] 0.76 mg/dL 0.50 - 1.20 mg/dL [facility] eGFR, CKD-EPI, Female 82 - PINF [facility] Comment on above: Reported eGFR is bas ed on the CKD-EPI 2020 equation using creatinine, age, and sex. Glucose [Mass/Vol] 94 mg/dL 70 - 179 mg/dL [facility] Osmolality Calc [Osmolality] 293 [facility] Potassium [Moles/Vol] 3.7 mmol/L 3.5 - 5.0 mmol/L [facility] Sodium [Moles/Vol] 140 mmol/L 135 - 145 mmol/L [facility] Urea nitrogen [Mass/Vol] 16 mg/dL 7 - 25 mg/dL [facility] Urea nitrogen/Creatinine [Mass ratio] 21 mg/mg [facility] CHEM 7 (LYTES,BUN,CREA,GLUC) on 01-25-2025 Anion gap [Moles/Vol] 13 mmol/L Normal 7-17 [facility] Comment on above: Performed By: #### MILAGRO HUNT, CHM7 #### [facility] (DEFAULT) [address] [place] [address] Chloride [Moles/Vol] 105 mmol/L Normal 98-108 [facility] Comment on above: Performed By: #### MILAGRO HUNT, CHM7 #### [facility] (DEFAULT) [address] [place] [address]67 CO2 [Moles/Vol] 26 mmol/L Normal 21-31 [facility] Comment on above: Performed By: #### MILAGRO HUNT, CHM7 #### [facility] (DEFAULT) [address] [address] [place] [address] Creatinine [Mass/Vol] 0.76 mg/dL Normal 0.50-1.20 [facility] Comment on above: Performed By: #### MILAGRO HUNT, CHM7 #### [facility] (DEFAULT) [address] [place] [address]84[address] GFR/1.73 sq M.predicted among non-blacks MDRD (S/P/Bld) [Vol rate/Area] 82 mL/min/{1.73_m2} Normal >=60 [facility] Comment on above: Result Comment: Repo rted eGFR is based on the CKD-EPI 2020 equation using creatinine, age, and sex. Performed By: #### MILAGRO HUNT, CHM7 #### [facility] (DEFAULT) [address] [place] [address]4449 Glucose [Mass/Vol] 94 mg/dL Normal Nonfastin g : 70-179 mg/dL; Fastin-99 [facility] Comment on above: Performed By: #### MILAGRO HUNT, CHM7 #### [facility] (DEFAULT) [address] [place] [address]324 Osmolality [Osmolality] 293 mosm/kg Normal 278-305 [facility] Comment on above: Performed By: #### MILAGRO HUNT, CHMiracle7 #### [facility] (DEFAULT) [address] [place] [address]1522 Potassium [Moles/Vol] 3.7 mmol/L Normal 3.5-5.0 [facility] Comment on above: Performed By: #### MILAGRO HUNT, CHM7 #### [facility] (DEFAULT) [address] [place] [address] 23236 Sodium [Moles/Vol] 140 mmol/L Normal 135-145 [facility] Comment on above: Performed By: #### MILAGRO HUNT, CHM7 #### [facility] (DEFAULT) [address] [place] [address] 66001 Urea nitrogen [Mass/Vol] 16 mg/dL Normal 7-25 [facility] Comment on above: Performed By: #### MILAGRO HUNT, CHM7 #### [facility] (DEFAULT) [address] [place] [address] 38492 Urea nitrogen/Creatinine [Mass ratio] 21 mg/mg Normal [facility] Comment on above: Performed By: #### MILAGRO HUNT, CHM7 #### [facility] (DEFAULT) [address] [place] [address] 34851 MAGNESIUMon 01-25-2025 Magnesium [Mass/Vol] 1.9 mg/dL 1.6 - 2 .6 mg/dL [facility] Magnesium [Mass/Vol] 1.9 mg/dL Normal 1.6-2.6 [facility] Comment on above: Performed By: #### MILAGRO HUNT, CHM7 #### [facility] (DEFAULT) [address] [place] [address] 83919 No Panel Informationon 01-25 Interpretation and review of laboratory results Normal [facility] PHOSPHATE, INORGANICon 01-25 Phosphate [Mass/Vol] 2.8 mg/dL 2.2 - 4 .6 mg/dL [facility] Phosphorous 2.8 mg/dL Normal 2.2-4.6 [facility] Comment on above: Performed By: #### M POORNIMA, IPB, CHM7 #### [facility] (DEFAULT) [address] [place] [address] XR ABDOMEN 1 VIEW PORTABLEon 01-25-2025 XR [...] distention of small bowel, suggesting ileus. Normal [facility] XR Abdomen Single viewon IMPRESSION: Mild [...] gaseous distention of small bowel, suggesting ileus. [facility] Radiology Study observation (narrative) [facility] XR Abdomen Single viewOrdere d By: Cali Suarez on 01-25-2025 [facility] Work Phone: CBC,PLATELETSon 01-24-2025 Erythrocyte distribution width (RBC) [Ratio] 12.5 % 10.8 - 14.9 % [facility] Hematocrit (Bld) [Volume fraction] 36.5 % 34.9 - 44.3 % [facility] Hemoglobin (Bld) [Mass/Vol] 11.9 g/dL 11.4 - 15.2 g/dL [facility] Interpretation and review of laboratory results Normal [facility] MCH (RBC) [Entitic mass] 29.5 pg 25.9 - 33.9 pg [facility] MCHC (RBC) [Mass/Vol] 32.6 g/dL 31.4 - 35.9 g/dL [facility] MCV (RBC) [Entitic vol] 90.6 fL 79.6 - 97.7 fL [facility] Platelet mean volume (Bld) [Entitic vol] 10.1 fL 8.5 - 12.2 fL [facility] Platelets (Bld) [#/Vol] 279 10*3/uL 150 - 393 K/uL [facility] RBC (Bld) [#/Vol] 4.03 10*6/uL [facility] WBC (Bld) [#/Vol] 11.1 10*3/uL 3.99 - 11.19 K/uL [facility] Hematocrit (Bld) [Volume fraction] 36.5 % Normal 34.9-44.3 [facility] Comment on above: Performed By: #### M POORNIMA, IPHarry, CHM7 #### [facility] (DEFAULT) [address] [place] [address] 25024 Hemoglobin (Bld) [Mass/Vol] 11.9 g/dL Normal 11.4-15.2 [facility] Comment on above: Performed By: #### MILAGRO HUNT, CHM7 #### [facility] (DEFAULT) [address] [place] [address]176 MCV (RBC) [Entitic vol] 90.6 fL Normal 79.6-97.7 [facility] Comment on above: Performed By: #### MILAGRO HUNT, CHM7 #### [facility] (DEFAULT) [address] [address] Mean Cell Hgb 29.5 pg Normal 25.9-33.9 [facility] Comment on above: Performed By: #### MILAGRO HUNT, CHM7 #### [facility] (DEFAULT) [address] [place] [address] 36450 Mean Cell Hgb Conc 32.6 g/dL Normal 31.4-35.9 [facility] Comment on above: Performed By: #### MILAGRO HUNT, CHM7 #### [facility] (DEFAULT) [address] [address] Platelet mean volume (Bld) [Entitic vol] 10.1 fL Normal 8.5-12.2 [facility] Comment on above: Performed By: #### MILAGRO HUNT, CHM7 #### [facility] (DEFAULT) [address] [place] [address] 53663 Platelets (Bld) [#/Vol] 279 10*3/uL Normal 150-393 [facility] Comment on above: Performed By: #### MILAGRO HUNT, CHM7 #### [facility] (DEFAULT) [address] [address] RBC (Bld) [#/Vol] 4.03 10*6/uL Normal 3.91-5.04 [facility] Comment on above: Performed By: #### MILAGRO HUNT, CHM7 #### [facility] (DEFAULT) [address] [place] [address] RBC Distribution 12.5 % Normal 10.8-14.9 [facility] Comment on above: Performed By: #### MILAGRO HUNT, CHM7 #### [facility] (DEFAULT) [address] [place] [address] WBC (Bld) [#/Vol] 11.10 10*3/uL Normal 3.99-11.19 [facility] Comment on above: Performed By: #### MILAGRO HUNT, CHM7 #### [facility] (DEFAULT) [address] [place] [address] CHEM 7 (LYTES,BUN,CREA,GLUC) on 01-24-2025 Anion gap [Moles/Vol] 13 mmol/L 7 - 17 mmol/L [facility] Chloride [Moles/Vol] 102 mmol/L 98 - 10 8 mmol/L [facility] CO2 [Moles/Vol] 23 mmol/L 21 - 31 mmol/L [facility] Creatinine [Mass/Vol] 0.78 mg/dL 0.50 - 1.20 mg/dL [facility] eGFR, CKD-EPI, Female 79 - PINF [facility] Comment on above: Reported eGFR is bas ed on the CKD-EPI 2020 equation using creatinine, age, and sex. Glucose [Mass/Vol] 109 mg/dL 70 - 179 mg/dL [facility] Interpretation and review of laboratory results Abnormal [facility] Osmolality Calc [Osmolality] 283 [facility] Potassium [Moles/Vol] 5.3 mmol/L High 3.5 - 5.0 mmol/L [facility] Comment on above: Specimen slightly he molyzed. Potassium results may be falsey elevated by more than 0.5 mmol/L. Consider recollection. Sodium [Moles/Vol] 133 mmol/L Low 135 - 145 mmol/L [facility] Urea nitrogen [Mass/Vol] 13 mg/dL 7 - 25 mg/dL [facility] Urea nitrogen/Creatinine [Mass ratio] 17 mg/mg [facility] Anion gap [Moles/Vol] 13 mmol/L Normal 7-17 [facility] Comment on above: Performed By: #### MILAGRO HUNT, CHM7 #### [facility] (DEFAULT) [address] [place] [address] 33642 Chloride [Moles/Vol] 102 mmol/L Normal 98-108 [facility] Comment on above: Performed By: #### MILAGRO HUNT, CHM7 #### [facility] (DEFAULT) [address] [place] [address] 21049 CO2 [Moles/Vol] 23 mmol/L Normal 21-31 [facility] Comment on above: Performed By: #### MILAGRO HUNT, CHM7 #### [facility] (DEFAULT) [address] [place] [address] 76826 Creatinine [Mass/Vol] 0.78 mg/dL Normal 0.50-1.20 [facility] Comment on above: Performed By: #### MILAGRO HUNT, CHM7 #### [facility] (DEFAULT) [address] [place] [address] 23595 GFR/1.73 sq M.predicted among non-blacks MDRD (S/P/Bld) [Vol rate/Area] 79 mL/min/{1.73_m2} Normal >=60 [facility] Comment on above: Result Comment: Repo rted eGFR is based on the CKD-EPI 2020 equation using creatinine, age, and sex. Performed By: #### MILAGRO HUNT, CHM7 #### [facility] (DEFAULT) [address] [place] [address] 92532 Glucose [Mass/Vol] 109 mg/dL Normal Nonfastin g : 70-179 mg/dL; Fastin-99 [facility] Comment on above: Performed By: #### MILAGRO HUNT, CHM7 #### [facility] (DEFAULT) [address] [place] [address] 72584 Osmolality [Osmolality] 283 mosm/kg Normal 278-305 [facility] Comment on above: Performed By: #### MILAGRO HUNT CHM7 #### [facility] (DEFAULT) [address] [place] [address] 45104 Potassium [Moles/Vol] 5.3 mmol/L High 3.5-5.0 [facility] Comment on above: Result Comment: Spec imen slightly hemolyzed. Potassium results may be falsey elevated by more than 0.5 mmol/L. Consider recollection. Performed By: #### MILAGRO HUNT CHM7 #### [facility] (DEFAULT) [address] [place] [address] 90436 Sodium [Moles/Vol] 133 mmol/L Low 135-145 [facility] Comment on above: Performed By: #### MILAGRO HUNT CHM7 #### [facility] (DEFAULT) [address] [place] [address] 57344 Urea nitrogen [Mass/Vol] 13 mg/dL Normal 7-25 [facility] Comment on above: Performed By: #### MILAGRO HUNT CHM7 #### [facility] (DEFAULT) [address] [place] [address] 51956 Urea nitrogen/Creatinine [Mass ratio] 17 mg/mg Normal [facility] Comment on above: Performed By: #### MILAGRO HUNT CHM7 #### [facility] (DEFAULT) [address] [place] [address] 83626 MAGNESIUMon 01-24-2025 Magnesium [Mass/Vol] 1.8 mg/dL 1.6 - 2 .6 mg/dL [facility] Magnesium [Mass/Vol] 1.8 mg/dL Normal 1.6-2.6 [facility] Comment on above: Performed By: #### MILAGRO HUNT CHNubia #### [facility] (DEFAULT) [address] [place] [address] 79658 No Panel Informationon 01-24 Interpretation and review of laboratory results Normal [facility] PHOSPHATE, INORGANICon 01-24 Phosphate [Mass/Vol] 4.1 mg/dL 2.2 - 4 .6 mg/dL [facility] Phosphorous 4.1 mg/dL Normal 2.2-4.6 [facility] Comment on above: Performed By: #### MILAGRO HUNT, CHM7 #### [facility] (DEFAULT) [address] [place] [address] 73468 ABORH TYPE RECONFIRMATIONon 01-23-2025 ABO/RH(D) TYPE Positive [facility] ABO/RH(D) TYPE Positive Normal [facility] Comment on above: Performed By: #### MILAGRO HUNT, CHM7 #### [facility] (DEFAULT) [address] [place] [address] 63165 CONTINUOUS CARDIAC MONITORIN G STRIPon 01-23-2025 [facility] CONTINUOUS CARDIAC MONITORIN G STRIPOrdered By: Unassigned Pacs on 01-23-2025 [facility] Work Phone: [id number] PROMOTER METHYLATION, A CCESSIONINGon 01-23-2025 AP BLOCK/SLIDE ID [id number] Normal [facility] Comment on above: Performed By: #### MILAGRO HUNT, CHM7 #### [facility] (DEFAULT) [address] [place] [address] 63233 AP SLIDE SCANNED Normal [facility] Comment on above: Performed By: #### MILAGRO HUNT, CHM7 #### [facility] (DEFAULT) [address] [place] [address] 62225 APCP HISTOLOGY COMMENTS Normal [facility] Comment on above: Performed By: #### MILAGRO HUNT, CHM7 #### [facility] (DEFAULT) [address] [place] [address] 21032 SURG PATH REQUESTon 01-24-20 Case Report [facility] Comment on above: Result Comment: Surg ical Pathology Report Case: [id number] Authorizing Provider: AFRICA Thomas Collected: 01/23/2025 10:43 AM [facility]ing [facility] Received: 01/23/2025 11:35 AM Pathologist: AFRICA Mercado Specimen: SURG PATH, Right colon and terminal ileum Performed By: #### S URGP #### [facility] (DEFAULT) [address] [place] [address] Clinical History Malignant neoplasm o f ascending colon. Medical History: Malignant neoplasm of colon. Essential hypertension, benign. Hyperlipidemia. Arthritis. [facility] Comment on above: Performed By: #### S URGP #### [facility] (DEFAULT) [address] [place] [address] Gross Description [facility] Comment on above: Result Comment: The specimen is received in one properly labeled container with the patient's name and accession number. A. The specimen is designated "right colon and terminal ileum" and consists of a segment of large [...] possible linear spiculation into pericolonic adipose A6-A8, maintenance representative mass A9, random uninvolved large bowel [...] to mass, quadrisected Lab Use Only: JobID [id number] Performed By: #### S URGP #### [facility] (DEFAULT) [address] [place] [address] Microscopic Description Normal [facility] Comment on above: Result Comment: A mi croscopic examination was performed. All controls show appropriate reactivity. All immunohistochemistry (IHC), in situ hybridization (SHAE), and histochemical tests were developed by and are performed at the [facility] Clinical Laboratory, Histology and IHC Lab, [address] [place] [address]. All Immunofluorescent (IF) tests were developed by and are performed at the [facility] Clinical Laboratory, Renal Division, [address] [place] [address], [place] [address]. All tests reported here, except for PD-L1, have not been cleared by or approved by the [place] Food and Drug Administration (FDA). The laboratory is regulated under CLIA as qualified to perform high-complexity testing. The tests are used for clinical purposes. They should not be regarded as investigational or for research. Performed By: #### S URGP #### [facility] (DEFAULT) [address] [place] [address] Pathologic Diagnosis Normal [facility] Comment on above: Result Comment: A. [...] EDT Performed By: #### S URGP #### [facility] (DEFAULT) [address] [place] [address] Professional Interpretation Performed at: Normal [facility] Comment on above: Result Comment: [facility] For Immediate Release to Patient's [facility]? Yes [address] [place] [address] Performed By: #### S URGP #### [facility] (DEFAULT) [address] [place] [address] Synoptic Checklist [facility] Comment on above: Result Comment: COLO N [...] pN2a Performed By: #### S URGP #### [facility] (DEFAULT) [address] [address] CBC AND ELECTRONIC DIFFon Basophils (Bld) [#/Vol] 0.06 10*3/uL 0.00 - 0.15 K/uL [facility] Basophils/100 WBC (Bld) 0.8 % [facility] Differential cell count method Nom (Bld) Electronic Differential O [facility] Eosinophils (Bld) [#/Vol] 0.33 10*3/uL 0.00 - 0.42 K/uL [facility] Eosinophils/100 WBC (Bld) 4.2 % [facility] Erythrocyte distribution width (RBC) [Ratio] 12.8 % 10.8 - 14.9 % [facility] Hematocrit (Bld) [Volume fraction] 43.6 % 34.9 - 44.3 % [facility] Hemoglobin (Bld) [Mass/Vol] 13.8 g/dL 11.4 - 15.2 g/dL [facility] Immature granulocytes (Bld) [#/Vol] K/uL NINF - 0.08 K/uL [facility] Immature granulocytes/100 WBC (Bld) 0.4 % [facility] Lymphocytes (Bld) [#/Vol] 1.98 10*3/uL 1.16 - 3.51 K/uL [facility] Lymphocytes/100 WBC (Bld) 25.4 % [facility] MCH (RBC) [Entitic mass] 29.4 pg 25.9 - 33.9 pg [facility] MCHC (RBC) [Mass/Vol] 31.7 g/dL 31.4 - 35.9 g/dL [facility] MCV (RBC) [Entitic vol] 93 fL 79.6 - 97.7 fL [facility] Monocytes (Bld) [#/Vol] 0.58 10*3/uL 0.22 - 0.87 K/uL [facility] Monocytes/100 WBC (Bld) 7.4 % [facility] Neutrophils (Bld) [#/Vol] 4.83 10*3/uL 1.64 - 7.28 K/uL [facility] Nucleated RBC/100 WBC (Bld) [Ratio] 0 % NINF [facility] Platelet mean volume (Bld) [Entitic vol] 10.2 fL 8.5 - 12.2 fL [facility] Platelets (Bld) [#/Vol] 375 10*3/uL 150 - 393 K/uL [facility] RBC (Bld) [#/Vol] 4.69 10*6/uL [facility] Segmented neutrophils/100 WBC (Bld) 61.8 % [facility] WBC (Bld) [#/Vol] 7.81 10*3/uL 3.99 - 11.19 K/uL [facility] Basophils (Bld) [#/Vol] 0.06 10*3/uL Normal 0.00-0.15 [facility] Comment on above: Performed By: #### L [id number] #### [facility] (DEFAULT) [address] [address] Basophils/100 WBC (Bld) 0.8 % Normal [facility] Comment on above: Performed By: #### L [id number] #### [facility] (DEFAULT) [address] [address] DIFF STATUS Electronic Differential Normal [facility] Comment on above: Performed By: #### L [id number] #### [facility] (DEFAULT) [address] [address] Eosinophils (Bld) [#/Vol] 0.33 10*3/uL Normal 0.00-0.42 [facility] Comment on above: Performed By: #### L [id number] #### [facility] (DEFAULT) [address] [address] Eosinophils/100 WBC (Bld) 4.2 % Normal [facility] Comment on above: Performed By: #### L [id number] #### [facility] (DEFAULT) [address] [address] Hematocrit (Bld) [Volume fraction] 43.6 % Normal 34.9-44.3 [facility] Comment on above: Performed By: #### L [id number] #### [facility] (DEFAULT) [address] [address] Hemoglobin (Bld) [Mass/Vol] 13.8 g/dL Normal 11.4-15.2 [facility] Comment on above: Performed By: #### L [id number] #### [facility] (DEFAULT) [address] [address] Immature Grans % 0.4 % Normal [facility] Comment on above: Performed By: #### L [id number] #### [facility] (DEFAULT) [address] [address] Immature Grans Absolute < Normal <=0.08 [facility] Comment on above: Performed By: #### L [id number] #### [facility] (DEFAULT) [address] [address] Lymphocytes (Bld) [#/Vol] 1.98 10*3/uL Normal 1.16-3.51 [facility] Comment on above: Performed By: #### L [id number] #### [facility] (DEFAULT) [address] [address] Lymphocytes/100 WBC (Bld) 25.4 % Normal [facility] Comment on above: Performed By: #### L [id number] #### [facility] (DEFAULT) [address] [address] MCV (RBC) [Entitic vol] 93.0 fL Normal 79.6-97.7 [facility] Comment on above: Performed By: #### L [id number] #### [facility] (DEFAULT) [address] [address] Mean Cell Hgb 29.4 pg Normal 25.9-33.9 [facility] Comment on above: Performed By: #### L [id number] #### [facility] (DEFAULT) [address] [address] Mean Cell Hgb Conc 31.7 g/dL Normal 31.4-35.9 [facility] Comment on above: Performed By: #### L [id number] #### [facility] (DEFAULT) [address] [address] Monocytes (Bld) [#/Vol] 0.58 10*3/uL Normal 0.22-0.87 [facility] Comment on above: Performed By: #### L [id number] #### [facility] (DEFAULT) [address] [address] Monocytes/100 WBC (Bld) 7.4 % Normal [facility] Comment on above: Performed By: #### L [id number] #### [facility] (DEFAULT) [address] [address] Nucleated RBC 0.0 /100 WBC Normal <=0.2 [facility] Comment on above: Performed By: #### L [id number] #### [facility] (DEFAULT) [address] [address] Platelet mean volume (Bld) [Entitic vol] 10.2 fL Normal 8.5-12.2 [facility] Comment on above: Performed By: #### L [id number] #### [facility] (DEFAULT) [address] [place] [address] Platelets (Bld) [#/Vol] 375 10*3/uL Normal 150-393 [facility] Comment on above: Performed By: #### L [id number] #### [place] [facility] (DEFAULT) [address] [place] [address] 95302 RBC (Bld) [#/Vol] 4.69 10*6/uL Normal 3.91-5.04 [facility] Comment on above: Performed By: #### L [id number] #### [facility] (DEFAULT) [address] [place] [address] 47087 RBC Distribution 12.8 % Normal 10.8-14.9 [facility] Comment on above: Performed By: #### L AB980 #### [facility] (DEFAULT) [address] [place] [address] 84875 Segs + Bands Auto 61.8 % Normal [facility] Comment on above: Performed By: #### L AB980 #### [facility] (DEFAULT) [address] [place] [address] 11891 Segs + Bands,Absolute Auto 4.83 K/uL Normal 1.64-7.28 [facility] Comment on above: Performed By: #### L AB980 #### [facility] (DEFAULT) [address] [place] [address] 35561 WBC (Bld) [#/Vol] 7.81 10*3/uL Normal 3.99-11.19 [facility] Comment on above: Performed By: #### L AB980 #### [facility] (DEFAULT) [address] [address] COMPREHENSIVE METABOLIC PANE Anish 01-10-2025 Albumin [Mass/Vol] 4.2 g/dL 3.5 - 5.0 g/dL [facility] ALP [Catalytic activity/Vol] 55 U/L 32 - 126 U/L [facility] ALT [Catalytic activity/Vol] 16 U/L 9 - 48 U/L [facility] Anion gap [Moles/Vol] 14 mmol/L 7 - 17 mmol/L [facility] AST [Catalytic activity/Vol] 19 U/L 10 - 39 U/L [facility] Bilirubin [Mass/Vol] 0.4 mg/dL NINF - 1.5 mg/dL [facility] Calcium [Mass/Vol] 9.8 mg/dL 8.6 - 10. 5 mg/dL [facility] Chloride [Moles/Vol] 99 mmol/L 98 - 10 8 mmol/L [facility] CO2 [Moles/Vol] 30 mmol/L 21 - 31 mmol/L [facility] Creatinine [Mass/Vol] 0.68 mg/dL 0.50 - 1.20 mg/dL [facility] eGFR, CKD-EPI, Female - PINF [facility] Comment on above: Reported eGFR is bas ed on the CKD-EPI 2020 equation using creatinine, age, and sex. Glucose [Mass/Vol] 80 mg/dL 70 - 99 mg/dL [facility] Osmolality Calc [Osmolality] 292 [facility] Potassium [Moles/Vol] 4.3 mmol/L 3.5 - 5.0 mmol/L [facility] Protein [Mass/Vol] 7.4 g/dL 6.4 - 8.3 g/dL [facility] Sodium [Moles/Vol] 139 mmol/L 135 - 145 mmol/L [facility] Urea nitrogen [Mass/Vol] 17 mg/dL 7 - 25 mg/dL [facility] Urea nitrogen/Creatinine [Mass ratio] 25 mg/mg [facility] Albumin [Mass/Vol] 4.2 g/dL Normal 3.5-5.0 [facility] Comment on above: Performed By: #### M POORNIMA, MILAGRO, CHM7 #### [facility] (DEFAULT) [address] [place] [address] ALP [Catalytic activity/Vol] 55 U/L Normal 32-126 [facility] Comment on above: Performed By: #### M POORNIMA IPB, CHM7 #### [facility] (DEFAULT) [address] [place] [address] 44830 ALT [Catalytic activity/Vol] 16 U/L Normal 9-48 [facility] Comment on above: Performed By: #### M POORNIMA IPB, CHM7 #### [facility] (DEFAULT) [address] [place] [address] 33029 Anion gap [Moles/Vol] 14 mmol/L Normal 7-17 [facility] Comment on above: Performed By: #### M POORNIMA IPB, CHM7 #### [facility] (DEFAULT) [address] [place] [address] 30469 AST [Catalytic activity/Vol] 19 U/L Normal 10-39 [facility] Comment on above: Performed By: #### M POORNIMA IPB, CHM7 #### [facility] (DEFAULT) [address] [place] [address] 70860 Bilirubin [Mass/Vol] 0.4 mg/dL Normal <1.5 [facility] Comment on above: Performed By: #### Miracle NOGUERA IPB, CHM7 #### [facility] (DEFAULT) [address] [place] [address] 89353 Calcium [Mass/Vol] 9.8 mg/dL Normal 8.6-10.5 [facility] Comment on above: Performed By: #### M POORNIMA, IPB, CHM7 #### [facility] (DEFAULT) [address] [place] [address] 55510 Chloride [Moles/Vol] 99 mmol/L Normal 98-108 [facility] Comment on above: Performed By: #### M POORNIMA, IPB, CHM7 #### [facility] (DEFAULT) [address] [place] [address] 73767 CO2 [Moles/Vol] 30 mmol/L Normal 21-31 [facility] Comment on above: Performed By: #### MILAGRO HUNT, CHM7 #### [facility] (DEFAULT) [address] [place] [address] 82015 Creatinine [Mass/Vol] 0.68 mg/dL Normal 0.50-1.20 [facility] Comment on above: Performed By: #### MILAGRO HUNT, CHM7 #### [facility] (DEFAULT) [address] [place] [address] 94034 eGFR, CKD-EPI, Female > Normal >=60 [facility] Comment on above: Result Comment: Repo rted eGFR is based on the CKD-EPI 2020 equation using creatinine, age, and sex. Performed By: #### MILAGRO HUNT, CHM7 #### [facility] (DEFAULT) [address] [place] [address] 39069 Glucose [Mass/Vol] 80 mg/dL Normal 70-99 [facility] Comment on above: Performed By: #### MILAGRO HUNT, CHM7 #### [facility] (DEFAULT) [address] [place] [address] 68180 Osmolality [Osmolality] 292 mosm/kg Normal 278-305 [facility] Comment on above: Performed By: #### MILAGRO HUNT, CHM7 #### [facility] (DEFAULT) [address] [place] [address] 99870 Potassium [Moles/Vol] 4.3 mmol/L Normal 3.5-5.0 [facility] Comment on above: Performed By: #### MILAGRO HUNT, CHM7 #### [facility] (DEFAULT) [address] [place] [address] 45242 Protein [Mass/Vol] 7.4 g/dL Normal 6.4-8.3 [facility] Comment on above: Performed By: #### MILAGRO HUNT, CHM7 #### [facility] (DEFAULT) [address] [place] [address] 02579 Sodium [Moles/Vol] 139 mmol/L Normal 135-145 [facility] Comment on above: Performed By: #### MILAGRO HUNT CHM7 #### [facility] (DEFAULT) [address] [place] [address] 79894 Urea nitrogen [Mass/Vol] 17 mg/dL Normal 7-25 [facility] Comment on above: Performed By: #### MILAGRO HUNT CHM7 #### [facility] (DEFAULT) [address] [place] [address] 67087 Urea nitrogen/Creatinine [Mass ratio] 25 mg/mg Normal [facility] Comment on above: Performed By: #### MILAGRO HUNT CHM7 #### [facility] (DEFAULT) [address] [place] [address] 26480 PREPARE TO TRANSFUSE OR RED BLOOD CELLSon 01-10-2025 [facility] PROTIME-INRon 01-10-2025 INR Coag (Bld) [Relative time] 0.9 {INR} 0.9 - 1.1 [facility] Interpretation and review of laboratory results Normal [facility] PT Coag (PPP) [Time] 12.3 s [facility] INR Coag (PPP) [Relative time] 0.9 {INR} Normal 0.9-1.1 [facility] Comment on above: Performed By: #### MILAGRO HUNT CHM7 #### [facility] (DEFAULT) [address] [place] [address] 69062 PT Coag (PPP) [Time] 12.3 s Normal 11.9-14.2 [facility] Comment on above: Performed By: #### MILAGRO HUNT CHM7 #### [facility] (DEFAULT) [address] [place] [address] 84576 PTTon 01-10-2025 aPTT Coag (PPP) [Time] 24.6 s [facility] Interpretation and review of laboratory results Normal [facility] aPTT Coag (Bld) [Time] 24.6 s Normal 24.0-34.3 [facility] Comment on above: Performed By: #### M GO, IPB, CHM7 #### [facility] (DEFAULT) [address] [place] [address] TYPE AND SCREEN - PREADMISSI ONon 01-10-2025 ABO/RH(D) TYPE Positive [facility] Specimen Expiration 02/09/2025 23:59 [facility] ABO/RH(D) TYPE Positive Normal [facility] Comment on above: Performed By: #### X MPO #### [facility] (DEFAULT) [address] [place] [address] 56129 Specimen Expiration 01/26/2025 23:59 Normal [facility] Comment on above: Performed By: #### X MPO #### [facility] (DEFAULT) [address] [place] [address] CHEST WITH CONTRASTon CT CHEST WITH [...] mm subpleural left lower lobe pulmonary nodule. . IMPRESSION: 1. Two nonspecific pulmonary nodules in [...] error, please notify the sender immediately at [phone] and permanently delete the original report and destroy any copies or printouts. Normal [facility] MRI ABDOMEN WITH AND WITHOUT CONTRASTon [...] mesenteric lymphadenopathy, suspicious for metastatic disease. Normal [facility] CREAT/GFRon 12-31-2024 Creatinine [Mass/Vol] 0.61 mg/dL 0.50 - 1.20 mg/dL [facility] GFR/1.73 sq M.predicted CKD-EPI (S/P/Bld) [Vol rate/Area] - PINF [facility] Comment on above: Reported eGFR is bas ed on the CKD-EPI 2020 equation using creatinine, age, and sex. Interpretation and review of laboratory results Normal [facility] Test performed at ad dress of the patient encounter. [facility] CBC + DIFFon 11-17-2024 Baso # 0.02 x10EE3/UL Normal 0.00 - 0.[address] [facility] Comment on above: Performed By: #### 2 54425 #### [facility],[address] [place] [address] Basophils/100 WBC (Bld) 0.3 % Normal 0.0 - 2.[address] [facility] Comment on above: Performed By: #### 2 16485 #### [facility],[address] [place] [address] CBC + DIFF Normal [facility] Comment on above: Result Comment: CBC- COMPLETE BLOOD COUNT Performed By: #### 2 47769 #### [facility],[address] [place] [address] EO # 0.29 x10EE3/UL Normal 0.00 - 0.[address] [facility] Comment on above: Performed By: #### 2 36880 #### [place] [address] Eosinophils/100 WBC (Bld) 4.3 % Normal 0.0 - 7.[address] [facility] Comment on above: Performed By: #### 2 84284 #### [facility],[address] [place] [address] Erythrocyte distribution width (RBC) [Ratio] 13.0 % Normal 12.0 - 15.[address] [facility] Comment on above: Performed By: #### 2 61965 #### [place] [address] Hematocrit (Bld) [Volume fraction] 47.5 % High 34.0 - 46.[address] [facility] Comment on above: Performed By: #### 2 87005 #### [facility],[address] [place] [address] Hemoglobin (Bld) [Mass/Vol] 15.8 g/dL Normal 12.0 - 16.[address] [facility] Comment on above: Performed By: #### 2 89966 #### [facility],[address] [place] [address] Lymph # 1.93 x10EE3/UL Normal 0.80 - 2.[address] [facility] Comment on above: Performed By: #### 2 83452 #### [facility] [place] [address] Lymphocytes/100 WBC (Bld) 28.9 % Normal 20.0 - 45.[address] [facility] Comment on above: Performed By: #### 2 15966 #### [facility],[address] [place] [address] MANUAL DIFF N/A Normal [facility] Comment on above: Performed By: #### 2 00257 #### [place] [address] MCH (RBC) [Entitic mass] 30 pg Normal 27 - [address] [facility] Comment on above: Performed By: #### 2 45416 #### [place] [address] MCHC 33 X10 3 Normal 32 - [address] [facility] Comment on above: Performed By: #### 2 47333 #### [place] [address] MCV (RBC) [Entitic vol] 90 fL Normal 80 - [address] [facility] Comment on above: Performed By: #### 2 63503 #### [place] [address] [place] # 0.55 x10EE3/UL Normal 0.20 - 1.[address] [facility] Comment on above: Performed By: #### 2 00282 #### [place] [address] MONOS % 8.3 % Normal 0.0 - 10.[address] [facility] Comment on above: Performed By: #### 2 66784 #### [place] [address] Morphology Miguel (Bld) [Interp] N/A Normal [facility] Comment on above: Performed By: #### 2 26495 #### [place] [address] Neut # 3.89 x10EE3/UL Normal 1.50 - 7.[address] [facility] Comment on above: Performed By: #### 2 35430 #### [facility],[address] [place] [address] 04145 Neutrophils/100 WBC (Bld) 58.3 % Normal 46.0 - 76.[address] [facility] Comment on above: Performed By: #### 2 74083 #### [facility],[address] [place] [address] 78376 PLATELET 373 x10EE3/UL Normal 150 - [address] [facility] Comment on above: Performed By: #### 2 31650 #### [facility],[address] [place] [address] 15826 Platelet mean volume (Bld) [Entitic vol] 7.8 fL Normal 6.6 - 10.[address] [facility] Comment on above: Result Comment: AUTO MATED DIFFERENTIAL Performed By: #### 2 44431 #### [facility],[address] [place] [address] 54541 RBC 5.28 x 10EE6/UL Normal 4.10 - 5.[address] [facility] Comment on above: Performed By: #### 2 34063 #### [facility],[address] [place] [address] 20487 WBC 6.7 x 10EE3/UL Normal 4.5 - 10.[address] [facility] Comment on above: Performed By: #### 2 22607 #### [facility],[address] [place] [address] 44693 CHEST 2 VIEWSon 11-17-2024 CHEST 2 VIEWS [place] [address] Patient: JESSIKA CARRILLO Phone#: : 1950 Age: 74 Gender: F Pt. Type: Out Account: [id number] Location: [facility] Ordering: FLEX BOLES Exam Date: 11/17/2024/8:11 Family Phys: SHU CHOW Charge Code: [id number] Physician: Bradford Order #: [id number] Dose#: PROCEDURE: X-RAY CHEST 2 VIEWS COMPARISON: [facility], XR, CHEST 2 VIEWS, 12/01/2023, 9:37. INDICATIONS: Colon [...] Granda MD on 11/17/2024 at 8:[address] [facility] CMP with eGFRon 11-17-2024 AGE 74 years Normal [facility] Comment on above: Performed By: #### 2 86467 #### [facility],[address] [place] [address] 21542 Albumin [Mass/Vol] 3.6 g/dL Normal 3.4 - 5.[address] [facility] Comment on above: Performed By: #### 2 14941 #### [facility],[address] [place] [address] 47128 Albumin/Globulin [Mass ratio] 0.9 {ratio} Normal 0.9 - 1.[address] [facility] Comment on above: Performed By: #### 2 16147 #### [facility],[address] [place] [address] 05654 ALK PHOS 73 U/L Normal 46 - [address] [facility] Comment on above: Performed By: #### 2 72939 #### [facility],[address] [place] [address] 17628 ALT [Catalytic activity/Vol] 27 U/L Normal 16 - [address] [facility] Comment on above: Performed By: #### 2 27306 #### [facility],[address] [place] [address] 50957 Anion gap [Moles/Vol] 13 mmol/L Normal 10 - 20 [facility] Comment on above: Performed By: #### 2 05629 #### [facility],[address] [place] [address] 81509 AST [Catalytic activity/Vol] 20 U/L Normal 13 - [address] [facility] Comment on above: Performed By: #### 2 31805 #### [facility],[address] [place] [address] 56946 B/C RATIO 24 ratio Normal 0 - [address] [facility] Comment on above: Performed By: #### 2 74962 #### [facility],[address] [place] [address] 23750 Bilirubin [Mass/Vol] 0.4 mg/dL Normal 0.2 - 1.[address] [facility] Comment on above: Performed By: #### 2 19141 #### [facility],[address] [place] [address] 91234 Calcium [Mass/Vol] 9.5 mg/dL Normal 8.5 - 10.[address] [facility] Comment on above: Performed By: #### 2 32840 #### [facility],[address] [place] [address] 16404 Chloride [Moles/Vol] 103 mmol/L Normal 98 - [address] [facility] Comment on above: Performed By: #### 2 72542 #### [facility],[address] [place] [address] 10325 CMP with eGFR Normal [facility] Comment on above: Result Comment: COMP REHENSIVE METABOLIC PANEL Performed By: #### 2 05317 #### [facility],[address] [place] [address] 52189 CO2 [Moles/Vol] 29.4 mmol/L Normal 21.0 - 32.[address] [facility] Comment on above: Performed By: #### 2 16183 #### [facility],[address] [place] [address] 07068 Creatinine [Mass/Vol] 0.86 mg/dL Normal 0.55 - 1.[address] [facility] Comment on above: Performed By: #### 2 23050 #### [facility],[address] [place] [address] 83177 GFR/1.73 sq M.predicted among non-blacks MDRD (S/P/Bld) [Vol rate/Area] mL/min/{1.73_m2} Normal 60 - [address] [facility] Comment on above: Performed By: #### 2 50602 #### [facility],[address] [place] [address] 20900 Result Comment: ACCO RDING TO THE NATIONAL KIDNEY DISEASE EDUCATION PROGRAM(NKDE), A NORMAL eGFR IS A VALUE GREATER THAN OR EQUAL TO 60 ML/MIN/1.73 SQ METERS. CHRONIC KIDNEY DISEASE: <60mL/MIN/1.73 SQ METERS KIDNEY FAILURE: <15mL/MIN/1.73 SQ METERS THIS TEST SHOULD ONLY BE USED FOR PATIENTS 18 YEARS OF AGE AND OLDER. Globulin (S) [Mass/Vol] 4.1 g/dL High 1.5 - 3.[address] [facility] Comment on above: Performed By: #### 2 21607 #### [facility],[address] [place] [address] 18361 Glucose [Mass/Vol] 94 mg/dL Normal 74 - [address] [facility] Comment on above: Performed By: #### 2 55539 #### [facility],[address] [place] [address] 48364 Potassium [Moles/Vol] 4.0 mmol/L Normal 3.5 - 5.1 [facility] Comment on above: Performed By: #### 2 76944 #### [facility],[address] [place] [address] 56250 Protein [Mass/Vol] 7.7 g/dL Normal 6.4 - 8.[address] [facility] Comment on above: Performed By: #### 2 61391 #### [facility],[address] [place] [address] 04873 Sodium [Moles/Vol] 141 mmol/L Normal 136 - [address] [facility] Comment on above: Performed By: #### 2 74409 #### [facility],[address] [place] [address] 59353 Urea nitrogen [Mass/Vol] 21 mg/dL High 7 - [address] [facility] Comment on above: Performed By: #### 2 25072 #### [facility],[address] [place] [address] ABDOMEN/PELVIS [facility] 2024 CT ABDOMEN/PELVIS [place] [address] Patient: JESSIKA CARRILLO Phone#: : 1950 Age: 74 Gender: F Pt. Type: Out Account: [id number] Location: [facility] Ordering: FLEX BOLES Exam Date: 11/17/2024/9:17 Family Phys: SHU CHOW Charge Code: [id number] Physician: Bradford Order #: [id number] Dose#: [id number] PROCEDURE: CT ABDOMEN/PELVIS WITH CONTRAST [...] 74 Gender: F Pt. Type: Out Account: [id number] Location: 062 Ordering: FLEX BOLES Exam Date: 11/17/2024/9:17 Family Phys: SHU CHOW Charge Code: [id number] Physician: Bradford Order #: [id number] Dose#: [id number] URINARY BLADDER: Normal. No visible [...] Granda MD on 11/17/2024 at 11:[address] [facility] Supplemental Reporton 2023 Supplemental Report . Pathology Reports Accession: Collected Date/Time: Received Date/Time: Pathologist: [id number] 08/17/2024 13:36 EDT 08/19/2024 08:23 CALI BRIONES MD Supplemental Report SUPPLEMENTAL: [facility] [address] [place] [address] MLH1 Methylation Analysis Clinical summary and Indication: [...] Electronically Signed by Diagnostic interpretation performed at [facility] CALI EVANS Sign out Date: 09/23/2024 14:35 Performing Lab: [facility], [address] [place] [address] Pathology Dept Final Surgical Pathology Report DIAGNOSIS: [...] testing of germline MLH1 may be indicated) MANAGER FORMS TUMOR BLOCK(S): A Pathology Reports Accession: Collected Date/Time: Received Date/Time: Pathologist: [id number] 08/17/2024 13:36 EDT 08/19/2024 08:23 CALI BRIONES MD COMMENT: [facility] - [id number] CLINICAL INFORMATION: HISTORY OF POLYPS SPECIMEN: A COLON BX AT 130cm B COLON BX AT 150cm GROSS DESCRIPTION: All parts labelled with patient name and [id number] A. Received in formalin labeled "biopsy at 130 cm" are multiple sofia-brown tissue fragments aggregating to 0.7 x 0.4 x 0.3 cm greatest dimension. TS-1 B. received in formalin labeled "biopsy at 150 cm" is 1 wispy sofia tissue fragment measuring 0.5 x 0.3 cm greatest dimension. TS-1 Ines Merrill, [facility] Director/ Dr. Cali Evans, Pathologist Performed by Ines Merrill MICROSCOPIC DESCRIPTION: The microscopic examination is performed, except in the case of Gross Only. Electronically Signed by Pathology Report verified by [facility] CALI EVANS Sign out Date: 08/30/2024 15:56 Performing Lab: [facility], [address] [place] [address] Pathology Dept Disclaimer If ancillary studies were utilized, the following Laboratory Developed Test (LDT) disclaimer will apply: Under CLIA requirements, [facility] is qualified to perform high complexity testing. For all ancillary stains, positive and negative controls stain appropriately. Performance characteristics of immunohistochemical and chromogenic in-situ hybridization tests have been determined by [facility]. These tests are used for clinical purposes, They should not be regarded as investigational or for research. Normal [facility] Final Surgical Pathology Rep [facility] 08-30-2024 Final Surgical Pathology Report . Pathology Reports Accession: Collected Date/Time: Received Date/Time: Pathologist: [id number] 08/17/2024 13:36 EDT 08/19/2024 08:23 EDT CALI [...] testing of germline MLH1 may be indicated) MANAGER FORMS TUMOR BLOCK(S): A COMMENT: [facility] - [id number] CLINICAL INFORMATION: HISTORY OF POLYPS SPECIMEN: A COLON BX AT 130cm B COLON BX AT 150cm GROSS DESCRIPTION: All parts labelled with patient name and [id number] A. Received in formalin labeled "biopsy at 130 cm" are multiple sofia-brown tissue fragments aggregating to 0.7 x 0.4 x 0.3 cm greatest dimension. TS-1 B. received in formalin labeled "biopsy at 150 cm" is 1 wispy sofia tissue fragment measuring 0.5 x 0.3 cm greatest dimension. TS-1 Ines Merrill, [facility] Director/ Dr. Cali Evans, Pathologist Performed by Ines Merrill MICROSCOPIC DESCRIPTION: The microscopic examination is performed, except in the case of Gross Only. Pathology Reports Accession: Collected Date/Time: Received Date/Time: Pathologist: [id number] 08/17/2024 13:36 EDT 08/19/2024 08:23 EDT CALI EVANS MD Electronically Signed by Pathology Report verified by [facility] CALI EVANS Sign out Date: 08/30/2024 15:56 Performing Lab: [facility], [address] [place] [address] Pathology Dept Disclaimer If ancillary studies were utilized, the following Laboratory Developed Test (LDT) disclaimer will apply: Under CLIA requirements, [facility] Pathology Laboratory is qualified to perform high complexity testing. For all ancillary stains, positive and negative controls stain appropriately. Performance characteristics of immunohistochemical and chromogenic in-situ hybridization tests have been determined by [facility] Pathology Laboratory. These tests are used for clinical purposes, They should not be regarded as investigational or for research. [facility] MAIN OPERATIVE PROCEDURES 08-27 OPERATIVE PROCEDURES [facility] OPERATIVE REPORT NAME ACCOUNT SEX AGE ADMIT DISCHARGE PT MED. RECORD# NUMBER DATE DATE TYPE JESSIKA CARRILLO [id number] F 74 08/17/24 08/17/24 2 [id number] ROOM: [facility] DATE OF : 1950 DICTATING PHYSICIAN: Flex Boles DATE OF SURGERY: August 17, 2024 SURGEON: Flex Boles MD POWER CLEANER OPERATOR: ANESTHESIOLOGIST: ANESTHETIC: PREOPERATIVE DIAGNOSIS: POSTOPERATIVE DIAGNOSIS: Screening [...] tags, and no discrete mass. The Olympus [id number] flexible endoscope was introduced through the anal verge and carefully advanced, protecting the surrounding mucosa. The scope was advanced through the rectal vault and in through the sigmoid Page 1 of 2 JESSIKA CARRILLO Operative Report JESSIKA CARRILLO : 1950 colon, which was rather tortuous. [...] Flex Boles MD 08/17/24 13:53 JOB #: [id number] Transcribed By: dasia 08/17/24 16:29 Electronically signed by: E-Sign Dr. Flex Boles MD 08/27/24 12:39 Page 2 of 2 JESSIKA CARRILLO Operative Report Normal [facility] COMPREHENSIVE METABOLIC PANE Anish 07-06-2024 Albumin [Mass/Vol] 4.2 g/dL Normal 3.6-5.1 [facility] Comment on above: Performed By: #### 1 0231, 1020, 67558, 899, 1005, 866 #### [facility] [address], [address] [place] [phone] Moving Van Driver: Esteban Shen MD Albumin/Globulin [Mass ratio] 1.4 {ratio} Normal 1.0-2.5 [facility] Comment on above: Performed By: #### 1 0231, 7600, 96072, 899, 1005, 866 #### [facility] [place] [address] Moving [employer] Driver: Esteban Shen MD ALP [Catalytic activity/Vol] 56 U/L Normal 37-153 [facility] Comment on above: Performed By: #### 1 0231, 7600, 38310, 899, 1005, 866 #### [facility] [place] [address] Moving [employer] Driver: Esteban Shen MD ALT [Catalytic activity/Vol] 25 U/L Normal 6-29 [facility] Comment on above: Performed By: #### 1 0231, 7600, 38051, 899, 1005, 866 #### [facility] [place] [address] Moving Van Driver: Esteban Shen MD AST [Catalytic activity/Vol] 30 U/L Normal 10-35 [facility] Comment on above: Performed By: #### 1 0231, 7600, 73867, 899, 1005, 866 #### [facility] [place] [address] Moving [employer] Driver: Esteban Shen MD Bilirubin [Mass/Vol] 0.5 mg/dL Normal 0.2-1.2 [facility] Comment on above: Performed By: #### 1 0231, 7600, 44823, 899, 1005, 866 #### [facility] [place] [address] Moving [employer]: Esteban Shen MD BUN/CREATININE RATIO SEE NOTE: Normal 6-22 [facility] Comment on above: Result Comment: Not Reported: BUN and Creatinine are within reference range. Performed By: #### 1 0231, 7600, 67457, 899, 1005, 866 #### [facility] of [place] [address] Moving [employer] Driver: Esteban Shen MD Calcium [Mass/Vol] 9.9 mg/dL Normal 8.6-10.4 [facility] Comment on above: Performed By: #### 1 0231, 7600, 69130, 899, 1005, 866 #### [facility] [place] [address] Moving Van Driver: Esteban Shen MD Chloride [Moles/Vol] 100 mmol/L Normal 98-110 [facility] Comment on above: Performed By: #### 1 0231, 7600, 37175, 899, 1005, 866 #### [facility] [place] [address] Moving Van Driver: Esteban Shen MD CO2 [Moles/Vol] 29 mmol/L Normal 20-32 [facility] Comment on above: Performed By: #### 1 0231, 7600, 36410, 899, 1005, 866 #### [facility] [place] [address] Moving Van Driver: Esteban Shen MD Creatinine [Mass/Vol] 0.70 mg/dL Normal 0.60-1.[address] [facility] Comment on above: Performed By: #### 1 0231, 7600, 38553, 899, 1005, 866 #### [facility] of [place] [address] Moving Van Driver: Esteban Shen MD GFR/1.73 sq M.predicted among non-blacks MDRD (S/P/Bld) [Vol rate/Area] 91 mL/min/{1.73_m2} Normal > OR = 60 [facility] Comment on above: Performed By: #### 1 0231, 7600, 26841, 899, 1005, 866 #### [facility] of [place] [address] Moving Van Driver: Esteban Shen MD Globulin (S) [Mass/Vol] 2.9 g/dL Normal 1.9-3.7 [facility] Comment on above: Performed By: #### 1 0231, 7600, 85228, 899, 1005, 866 #### [facility] of [place] [address] Moving Van Driver: Esteban Shen MD Glucose [Mass/Vol] 91 mg/dL Normal 65-99 [facility] Comment on above: Result Comment: Fasting reference interval Performed By: #### 1 0231, 7600, 63241, 899, 1005, 866 #### [facility] of [place] [address] Moving Van Driver: Esteban Shen MD Potassium [Moles/Vol] 4.5 mmol/L Normal 3.5-5.[address] [facility] Comment on above: Performed By: #### 1 0231, 7600, 67793, 899, 1005, 866 #### [facility] [place] [address] Moving Van Driver: Esteban Shen MD Protein [Mass/Vol] 7.1 g/dL Normal 6.1-8.1 [facility] Comment on above: Performed By: #### 1 0231, 7600, 96553, 899, 1005, 866 #### [facility] [place] [address] Moving Van Driver: Esteban Shen MD Sodium [Moles/Vol] 139 mmol/L Normal 135-146 [facility] Comment on above: Performed By: #### 1 0231, 7600, 91064, 899, 1005, 866 #### [facility] of [place] [address] Moving Van Driver: Esteban Shen MD Urea nitrogen [Mass/Vol] 14 mg/dL Normal 7-25 [facility] Comment on above: Performed By: #### 1 0231, 7600, 86740, 899, 1005, 866 #### [facility] of [address] [place] [address] Moving Van Driver: Esteban Shen MD LIPID PANEL, [facility] 09-0 Cholesterol [Mass/Vol] 213 mg/dL High <200 [facility] Comment on above: Performed By: #### 1 0231, 7600, 59016, 899, 1005, 866 #### [facility] [place] [address] Moving Van Driver: Esteban Shen MD Cholesterol in HDL [Mass/Vol] 51 mg/dL Normal > OR = 50 [facility] Comment on above: Performed By: #### 1 0231, 7600, 30139, 899, 1005, 866 #### [facility] [place] [address] Moving Van Driver: Esteban Shen MD Cholesterol in LDL [Mass/Vol] 126 mg/dL High [facility] Comment on above: Result Comment: Refe rence range: <100 Desirable range <100 mg/dL for primary prevention; <70 mg/dL for patients with CHD or diabetic patients with > or = 2 CHD risk factors. LDL-C is now calculated using the Rohan-Dexter calculation, which is a validated novel method providing better accuracy than the Friedewald equation in the estimation of LDL-C. Rohan HO et al. NIEVES. 2013;310(19): 6042-1276 (http://education.[employer].Graduway/faq/XYJ764) Performed By: #### 1 0231, 7600, 88039, 899, 1005, 866 #### [facility] [place] [address] Moving Van Driver: Esteban Shen MD Cholesterol.total/Chol esterol in HDL [Mass ratio] 4.2 {ratio} Normal <5.0 [facility] Comment on above: Performed By: #### 1 0231, 7600, 68729, 899, 1005, 866 #### [facility] [place] [address] Moving Van Driver: Esteban Shen MD NON HDL CHOLESTEROL 162 mg/dL (calc) High <130 [facility] Comment on above: Result Comment: For patients with diabetes plus 1 major ASCVD risk factor, treating to a non-HDL-C goal of <100 mg/dL (LDL-C of <70 mg/dL) is considered a therapeutic option. Performed By: #### 1 0231, 7600, 64319, 899, 1005, 866 #### [facility] [address], [address] [place] [address] Moving Van Driver: Esteban Shen MD Triglyceride [Mass/Vol] 216 mg/dL High <150 [facility] Comment on above: Result Comment: If a non-fasting specimen was collected, consider repeat triglyceride testing on a fasting specimen if clinically indicated. Jamel et al. J. of Clin. Lipidol. 2015;9:129-169. Performed By: #### 1 0231, 7600, 75218, 899, 1005, 866 #### [facility] [place] [address] Moving Van Driver: Esteban Shen MD T4, FREEon 07-06-2024 Free T4 [Mass/Vol] 1.1 ng/dL Normal 0.8-1.8 [facility] Comment on above: Performed By: #### 7 600, 899, 04563, 6399, 78047 #### [facility] [place] [address] Moving Van Driver: Esteban Shen MD TEST AUTHORIZATIONon 024 CLIENT CONTACT: ROVERTO LYNCH Normal [facility] Comment on above: Performed By: #### 7 600, 899, 91060, 6399, 39343 #### [facility] [place] [address] Moving Van Driver: Esteban Shen MD COMMENT Normal [facility] Comment on above: Result Comment: Leonor quintero have the ordering physician or his or her authorized maintenance representative sign a copy of this report and promptly return it by faxing it to: [phone] or by returning the form to your die cast engineer. Performed By: #### 7 600, 899, 79725, 6399, 72010 #### [facility] [place] [address] Moving Van Driver: Esteban Shen MD REPORT ALWAYS MESSAGE SIGNATURE Normal [facility] Comment on above: Result Comment: The laboratory testing on this patient was verbally requested or confirmed by the ordering physician or his or her authorized maintenance representative after contact with an employee of [employer]. Federal regulations require that we maintain on file written authorization for all laboratory testing. Accordingly we are asking that the ordering physician or his or her authorized maintenance representative sign a copy of this report and promptly return it to the client support administrator. Signature: Performed By: #### 7 600, 899, 43704, 6399, 90135 #### [facility] [place] [address] Moving Van Driver: Esteban Shen MD TEST CODE: 866SB Normal [facility] Comment on above: Performed By: #### 7 600, 899, 69480, 6399, 03541 #### [facility] [place] [address] Moving Van Driver: Esteban Shen MD TEST NAME: T4, FREE Normal [facility] Comment on above: Performed By: #### 7 600, 899, 23304, 6399, 89969 #### [facility] [place] [address] Moving Van Driver: Esteban Shen MD TSHon 07-06-2024 TSH Qn 4.86 m[IU]/L High 0.40-4.50 [facility] Comment on above: Performed By: #### 1 0231, 7600, 32594, 899, 1005, 866 #### [facility] [place] [address] Moving Van Driver: Esteban Shen MD VITAMIN D,25-OH,TOTAL,IAon 0 07-06-2024 VITAMIN D,25-OH,TOTAL,IA 36 ng/mL Normal 30-100 [employer] Comment on above: Result Comment: Ryanne min D Status 25-OH Vitamin D: Deficiency: <20 ng/mL Insufficiency: 20 - 29 ng/mL Optimal: > or = 30 ng/mL For 25-OH Vitamin D testing on patients on D2-supplementation and patients for whom quantitation of D2 and D3 fractions is required, the QuestAssureD(TM) 25-OH VIT D, (D2,D3), LC/MS/MS is recommended: order code 52587 (patients >2yrs). See Note 1 Note 1 For additional information, please refer to http://education.[employer]/faq/VLI561 (This link is being provided for informational/ educational purposes only.) Performed By: #### 7 600, 899, 41207, 6399, 82099 #### [facility] [address], [address] [place] [phone] Moving Van Driver: Esteban Shen MD Laboratory - Chemistry and C hemistry - challengeon 07-05-2024 Albumin [Mass/Vol] 4.2 g/dL Normal 3.6 - 5.1 g/dL [employer] [facility], [facility].; [employer] Albumin/Globulin [Mass ratio] 1.4 {ratio} Normal 1.0 - 2.5 [facility], [facility].; [employer] ALP [Catalytic activity/Vol] 56 U/L Normal 37 - 153 U/L [employer] [facility], [facility].; [employer] ALT [Catalytic activity/Vol] 25 U/L Normal 6 - 29 U/L [employer], [facility].; [employer] AST [Catalytic activity/Vol] 30 U/L Normal 10 - 35 U/L [employer], [facility].; [employer] Bilirubin [Mass/Vol] 0.5 mg/dL Normal 0.2 - 1 .2 mg/dL [employer] [facility], [facility].; [employer] Calcium [Mass/Vol] 9.9 mg/dL Normal 8.6 - 10. 4 mg/dL [facility].; [facility] Chloride [Moles/Vol] 100 mmol/L Normal 98 - 11 0 mmol/L [facility].; [facility] Cholesterol [Mass/Vol] 213 mg/dL Abnormal [facility]; [facility], [facility] Cholesterol in HDL [Mass/Vol] 51 mg/dL Normal [facility]; [facility], [facility] Cholesterol in LDL [Mass/Vol] 126 mg/dL Abnormal [facility]; [facility] CO2 [Moles/Vol] 29 mmol/L Normal 20 - 32 mmol/L [facility]; [facility], [facility] Creatinine [Mass/Vol] 0.70 mg/dL Normal 0.60 - 1.00 mg/dL [facility]; [facility], [facility] Free T4 [Mass/Vol] 1.1 ng/dL Normal 0.8 - 1.8 ng/dL [facility] [employer] [facility].; [facility] Work Phone: GFR/1.73 sq M.predicted among non-blacks MDRD (S/P/Bld) [Vol rate/Area] 91 mL/min/{1.73_m2} Normal [facility]; [facility], [facility] Glucose [Mass/Vol] 91 mg/dL Normal 65 - 99 mg/dL [facility], [facility].; [facility], [facility] Potassium [Moles/Vol] 4.5 mmol/L Normal 3.5 - 5.3 mmol/L [facility].; [facility], [facility] Protein [Mass/Vol] 7.1 g/dL Normal 6.1 - 8.1 g/dL [facility].; [facility], [facility] Sodium [Moles/Vol] 139 mmol/L Normal 135 - 146 mmol/L [facility].; [facility], [facility] Triglyceride [Mass/Vol] 216 mg/dL Abnormal [facility].; [facility], [facility] TSH Qn 4.86 m[IU]/L Abnormal 0.40 - 4.50 {mIU/L} [employer]; [employer]. Urea nitrogen [Mass/Vol] 14 mg/dL Normal 7 - 25 mg/dL [employer] No Panel Informationon 07-05 [id number] See Below Normal [employer]; [employer] Work Phone: BUN/CREATININE RATIO SEE NOTE: Normal 6 - 22 [facility] [employer]; [employer] CHOL/HDLC RATIO 4.2 Normal [employer]; [employer] CLIENT CONTACT: ROVERTO LYNCH Normal [facility] [employer]; [employer] Work Phone: GLOBULIN 2.9 Normal 1.9 - 3.7 [employer]; [employer] NON HDL CHOLESTEROL 162 Abnormal [facility] [employer]; [employer] TEST CODE: 866SB Normal [email or web address]; [email or web address] Work Phone: TEST NAME: T4, FREE Normal [email or web address]; [employer] Work Phone: VITAMIN D,25-OH,TOTAL,IA 36 ng/mL Normal 30 - 100 ng/mL [employer]; [employer]. Final Surgical Pathology Rep [facility] 12-25-2023 Final Surgical Pathology Report . Pathology Reports Accession: Collected Date/Time: Received Date/Time: Pathologist: [id number] 12/21/2023 08:30 EST 12/23/2023 08:05 EST CALI EVANS MD Final Surgical Pathology Report DIAGNOSIS: RIGHT KNEE BONE: - DEGENERATIVE ARTICULAR CHANGES WITHOUT ACUTE INFLAMMATION OR TUMOR COMMENT: [facility] # [id number] CLINICAL INFORMATION: OSTEOARTHRITIS RIGHT KNEE SPECIMEN: A BONE RIGHT KNEE GROSS DESCRIPTION: All parts labelled with patient name and [id number] Received in formalin labelled "right knee bone" Dimensions/description - multiple convex and concave fragmented [...] Electronically Signed by Pathology Report verified by [facility] CALI EVANS Sign out Date: 12/25/2023 10:06 Performing Lab: [facility], [address] [place] [address] Pathology Dept Disclaimer If ancillary studies were utilized, the following Laboratory Developed Test (LDT) disclaimer will apply: Under CLIA requirements, [facility]ology Laboratory is qualified to perform high complexity testing. For all ancillary stains, positive and negative controls stain appropriately. Performance characteristics of immunohistochemical and chromogenic in-situ hybridization tests have been determined by [facility]ology Laboratory. These tests are used for clinical purposes, They should not be regarded as investigational or for research. Normal [facility] ([place]) Laboratory - Chemistry and C hemistry - challengeon 11-23-2023 Albumin [Mass/Vol] 4.2 g/dL Normal 3.6 - 5.1 g/dL [employer] [facility], [employer] Albumin/Globulin [Mass ratio] 1.6 {ratio} Normal 1.0 - 2.5 [facility], [facility].; [employer] ALP [Catalytic activity/Vol] 51 U/L Normal 37 - 153 U/L [employer] ALT [Catalytic activity/Vol] 52 U/L Abnormal 6 - 29 U/L [employer], [employer] AST [Catalytic activity/Vol] 54 U/L Abnormal 10 - 35 U/L [employer], [employer].; [employer] Bilirubin [Mass/Vol] 0.4 mg/dL Normal 0.2 - 1 .2 mg/dL [employer], [employer].; [employer] Calcium [Mass/Vol] 9.7 mg/dL Normal 8.6 - 10. 4 mg/dL [employer], [employer].; [employer] Chloride [Moles/Vol] 106 mmol/L Normal 98 - 11 0 mmol/L [facility].; [facility]. CO2 [Moles/Vol] 22 mmol/L Normal 20 - 32 mmol/L [facility].; [employer] [facility], [facility]. Creatinine [Mass/Vol] 0.76 mg/dL Normal 0.60 - 1.00 mg/dL [facility], [facility].; [facility], [facility]. GFR/1.73 sq M.predicted among non-blacks MDRD (S/P/Bld) [Vol rate/Area] 82 mL/min/{1.73_m2} Normal [facility], [facility].; [facility], [facility]. Glucose [Mass/Vol] 96 mg/dL Normal 65 - 99 mg/dL [facility], [facility].; [employer] [facility], [facility]. Potassium [Moles/Vol] 4.6 mmol/L Normal 3.5 - 5.3 mmol/L [facility].; [employer] [facility], [facility]. Protein [Mass/Vol] 6.9 g/dL Normal 6.1 - 8.1 g/dL [facility].; [employer], [employer]. Sodium [Moles/Vol] 144 mmol/L Normal 135 - 146 mmol/L [facility].; [employer], [employer]. Urea nitrogen [Mass/Vol] 17 mg/dL Normal 7 - 25 mg/dL [facility], [facility].; [employer], [employer] Laboratory - Hematology and Cell countson 11-23-2023 Basophils (Bld) [#/Vol] 0.073 10*3/uL Normal 0 - 200 {cells/uL} [facility].; [employer], [facility]. Basophils/100 WBC (Bld) 1.0 % Normal [facility].; [employer] [facility], [facility]. Eosinophils (Bld) [#/Vol] 0.212 10*3/uL Normal 15 - 500 {cells/uL} [facility], [facility].; [employer], [employer]. Eosinophils/100 WBC (Bld) 2.9 % Normal [facility].; [employer], [employer]. Erythrocyte distribution width (RBC) [Ratio] 12.6 % Normal 11.0 - 15.0 % [facility].; [employer], [facility]. Hematocrit (Bld) [Volume fraction] 45.8 % Abnormal 35.0 - 45.0 % [facility].; [facility], [facility]. Hemoglobin (Bld) [Mass/Vol] 15.2 g/dL Normal 11.7 - 15.5 g/dL [facility], [facility].; [employer] [facility], [facility]. Lymphocytes (Bld) [#/Vol] 1.927 10*3/uL Normal 850 - 3900 {cells/uL} [facility].; [employer], [facility]. Lymphocytes/100 WBC (Bld) 26.4 % Normal [employer] [facility] [employer] [facility].; [employer], [facility]. MCH (RBC) [Entitic mass] 30.9 pg Normal 27.0 - 33.0 pg [facility], [facility].; [employer], [facility]. MCHC (RBC) [Mass/Vol] 33.2 g/dL Normal 32.0 - 36.0 g/dL [facility].; [employer], [facility]. MCV (RBC) [Entitic vol] 93.1 fL Normal 80.0 - 100.0 fL [employer] [facility].; [employer], [facility]. Monocytes (Bld) [#/Vol] 0.621 10*3/uL Normal 200 - 950 {cells/uL} [employer], [facility].; [employer] Monocytes/100 WBC (Bld) 8.5 % Normal [employer] [facility].; [employer], [facility]. Neutrophils (Bld) [#/Vol] 4.468 10*3/uL Normal 1500 - 7800 {cells/uL} [employer] [facility].; [employer], [facility]. Neutrophils/100 WBC (Bld) 61.2 % Normal [employer] [facility].; [employer], [facility]. Platelet mean volume (Bld) [Entitic vol] 11.0 fL Normal 7.5 - 12.5 fL [employer], [facility].; [employer] Platelets (Bld) [#/Vol] 360 10*3/uL Normal 140 - 400 [employer]. RBC (Bld) [#/Vol] 4.92 10*6/uL Normal 3.80 - 5.10 {Million/u L} [facility].; [employer] [facility]. WBC (Bld) [#/Vol] 7.3 10*3/uL Normal 3.8 - 10.8 [facility] Hospital[facility] [employer] [facility].; [employer] No Panel Informationon 11-23 BUN/CREATININE RATIO SEE NOTE: Normal [facility] [employer] [facility].; [employer] [facility] [employer] [facility] GLOBULIN 2.7 Normal 1.9 - 3.7 [facility] HospitalD[facility] [employer] [facility].; [employer] Laboratory - Chemistry and C hemistry - challengeon 07-20-2023 Albumin [Mass/Vol] 4.0 g/dL Normal 3.6 - 5.1 g/dL [facility] HospitalD[facility] [employer] [facility].; [employer], [employer]. Albumin/Globulin [Mass ratio] 1.4 {ratio} Normal 1.0 - 2.5 [facility] HospitalD[facility] [employer] [facility].; [employer]. ALP [Catalytic activity/Vol] 47 U/L Normal 37 - 153 U/L [facility] HospitalD[facility] [employer] [facility].; [employer], [employer]. ALT [Catalytic activity/Vol] 54 U/L Abnormal 6 - 29 U/L [facility] Hospital[facility] [employer] [facility].; [employer], [employer]. AST [Catalytic activity/Vol] 49 U/L Abnormal 10 - 35 U/L [facility].; [employer]. Bilirubin [Mass/Vol] 0.5 mg/dL Normal 0.2 - 1 .2 mg/dL [facility] HospitalD[facility] [employer] [facility].; [employer], [employer]. Calcium [Mass/Vol] 9.6 mg/dL Normal 8.6 - 10. 4 mg/dL [employer] [facility] [employer] [facility].; [employer], [employer]. Chloride [Moles/Vol] 100 mmol/L Normal 98 - 11 0 mmol/L [facility], [facility].; [employer], [employer]. Cholesterol [Mass/Vol] 204 mg/dL Abnormal [facility].; [employer], [employer] Cholesterol in HDL [Mass/Vol] 67 mg/dL Normal [facility] HospitalD[facility].; [employer], [facility]. Cholesterol in LDL [Mass/Vol] 107 mg/dL Abnormal [facility] HospitalD[facility] [employer] [facility].; [employer] [facility], [facility]. CO2 [Moles/Vol] 28 mmol/L Normal 20 - 32 mmol/L [facility], [facility].; [employer] [facility], [facility]. Creatinine [Mass/Vol] 0.83 mg/dL Normal 0.60 - 1.00 mg/dL [facility], [facility].; [employer] [facility], [facility]. GFR/1.73 sq M.predicted among non-blacks MDRD (S/P/Bld) [Vol rate/Area] 74 mL/min/{1.73_m2} Normal [facility] HospitalD[facility] [employer] [facility].; [employer] [facility], [facility]. Glucose [Mass/Vol] 96 mg/dL Normal 65 - 99 mg/dL [facility], [facility].; [employer], [facility]. Potassium [Moles/Vol] 3.9 mmol/L Normal 3.5 - 5.3 mmol/L [facility] HospitalD[facility] [employer] [facility].; [employer], [employer]. Protein [Mass/Vol] 6.9 g/dL Normal 6.1 - 8.1 g/dL [facility], [facility].; [employer], [employer]. Sodium [Moles/Vol] 138 mmol/L Normal 135 - 146 mmol/L [facility], [facility].; [employer], [employer]. Triglyceride [Mass/Vol] 178 mg/dL Abnormal [facility] HospitalD[facility] [employer] [facility].; [employer], [facility]. Urea nitrogen [Mass/Vol] 17 mg/dL Normal 7 - 25 mg/dL [facility] HospitalD[facility] [employer] [facility].; [employer] [facility], [facility]. No Panel Informationon 07-20 BUN/CREATININE RATIO SEE NOTE: Normal 6 - 22 [facility] [employer] [facility].; [employer] CHOL/HDLC RATIO 3.0 Normal [employer] [facility] [employer] [facility].; [employer], [facility]. GLOBULIN 2.9 Normal 1.9 - 3.7 [facility], [facility].; [employer] NON HDL CHOLESTEROL 137 Abnormal [facility], [facility].; [employer] [facility], [facility]. VITAMIN D,25-OH,TOTAL,IA 22 ng/mL Abnormal 30 - 100 ng/mL [facility].; [facility] HospitalD&[facility] [employer] [facility]. Laboratory - Chemistry and C hemistry - challengeon 08-18-2022 Albumin [Mass/Vol] 4.0 g/dL Normal 3.6 - 5.1 g/dL [facility].; [facility], [facility]. Albumin/Globulin [Mass ratio] 1.3 {ratio} Normal 1.0 - 2.5 [facility].; [facility] HospitalD&[facility] [employer] [facility] ALP [Catalytic activity/Vol] 60 U/L Normal 37 - 153 U/L [facility].; [facility], [facility]. ALT [Catalytic activity/Vol] 37 U/L Abnormal 6 - 29 U/L [facility].; [facility], [facility]. AST [Catalytic activity/Vol] 34 U/L Normal 10 - 35 U/L [facility].; [facility], [facility] Bilirubin [Mass/Vol] 0.5 mg/dL Normal 0.2 - 1 .2 mg/dL [facility].; [facility], [facility]. Calcium [Mass/Vol] 9.6 mg/dL Normal 8.6 - 10. 4 mg/dL [facility].; [facility], [facility]. Chloride [Moles/Vol] 98 mmol/L Normal 98 - 11 0 mmol/L [facility].; [facility], [facility]. Cholesterol [Mass/Vol] 225 mg/dL Abnormal [facility].; [facility], [facility] Cholesterol in HDL [Mass/Vol] 57 mg/dL Normal [facility].; [facility], [facility]. Cholesterol in LDL [Mass/Vol] 139 mg/dL Abnormal [facility].; [facility], [facility]. CO2 [Moles/Vol] 29 mmol/L Normal 20 - 32 mmol/L [facility].; [facility], [facility]. Creatinine [Mass/Vol] 0.67 mg/dL Normal 0.60 - 1.00 mg/dL [facility], [facility].; [facility], [facility]. GFR/1.73 sq M.predicted among non-blacks MDRD (S/P/Bld) [Vol rate/Area] 92 mL/min/{1.73_m2} Normal [facility]; [facility] HospitalD&[facility] [employer] [facility] Glucose [Mass/Vol] 82 mg/dL Normal 65 - 99 mg/dL [facility]; [facility] Potassium [Moles/Vol] 4.4 mmol/L Normal 3.5 - 5.3 mmol/L [facility]; [facility] HospitalD&[facility] [employer] [facility] Protein [Mass/Vol] 7.2 g/dL Normal 6.1 - 8.1 g/dL [facility]; [facility] HospitalD&[facility] [employer] [facility] Sodium [Moles/Vol] 136 mmol/L Normal 135 - 146 mmol/L [facility] HospitalD[facility] [employer] [facility]; [facility] HospitalD&[facility] [employer] [facility] Triglyceride [Mass/Vol] 157 mg/dL Abnormal [facility]; [employer] [facility] HamiltonD[facility] [employer] [facility] Urea nitrogen [Mass/Vol] 11 mg/dL Normal 7 - 25 mg/dL [facility] HospitalD[facility] [employer] [facility]; [employer] [facility] HamiltonD&[facility] [employer] [facility] No Panel Informationon 08-18 BUN/CREATININE RATIO NOT APPLICABLE Normal - [facility] HospitalD&[facility] [employer] [facility]; [employer] [facility] HamiltonD[facility] [employer] [facility] CHOL/HDLC RATIO 3.9 Normal [facility] HospitalD&[facility] [employer] [facility]; [facility] HospitalD&[facility] [employer] [facility] GLOBULIN 3.2 Normal 1.9 - 3.7 [facility]; [employer] [facility] [employer] [facility] NON HDL CHOLESTEROL 168 Abnormal [facility]; [employer] [facility] HamiltonD&[facility] [employer] [facility] VITAMIN D,25-OH,TOTAL,IA 34 ng/mL Normal 30 - 100 ng/mL [facility] HospitalD[facility] [employer] [facility]; [employer] [facility] HamiltonD[facility] [employer] [facility] Laboratory - Chemistry and C hemistry - challengeon 04-16-2022 Albumin [Mass/Vol] 4.0 g/dL Normal 3.6 - 5.1 g/dL [facility] HospitalD&[facility] [employer] [facility]; [employer] [facility], [facility] Albumin/Globulin [Mass ratio] 1.3 {ratio} Normal 1.0 - 2.5 [facility]; [employer] [facility] HamiltonD[facility] [employer] [facility] ALP [Catalytic activity/Vol] 58 U/L Normal 37 - 153 U/L [facility] HospitalD&[facility] [employer] [facility]; [employer] [facility], [facility] ALT [Catalytic activity/Vol] 33 U/L Abnormal 6 - 29 U/L [facility].; [facility], [facility]. AST [Catalytic activity/Vol] 29 U/L Normal 10 - 35 U/L [facility].; [facility], [facility]. Bilirubin [Mass/Vol] 0.5 mg/dL Normal 0.2 - 1 .2 mg/dL [facility].; [facility], [facility] Calcium [Mass/Vol] 9.2 mg/dL Normal 8.6 - 10. 4 mg/dL [facility].; [facility], [facility] Chloride [Moles/Vol] 105 mmol/L Normal 98 - 11 0 mmol/L [facility].; [facility], [facility]. Cholesterol [Mass/Vol] 208 mg/dL Abnormal [facility]; [facility], [facility] Cholesterol in HDL [Mass/Vol] 57 mg/dL Normal [facility].; [facility], [facility] Cholesterol in LDL [Mass/Vol] 125 mg/dL Abnormal [facility]; [facility], [facility] CO2 [Moles/Vol] 25 mmol/L Normal 20 - 32 mmol/L [facility].; [facility], [facility]. Creatinine [Mass/Vol] 0.78 mg/dL Normal 0.60 - 0.93 mg/dL [facility], [facility].; [facility], [facility]. GFR/1.73 sq M.predicted among blacks MDRD (S/P/Bld) [Vol rate/Area] 88 mL/min/{1.73_m2} Normal [facility], [facility].; [facility], [facility]. Glucose [Mass/Vol] 98 mg/dL Normal 65 - 99 mg/dL [facility], [facility].; [facility], [facility]. Potassium [Moles/Vol] 4.3 mmol/L Normal 3.5 - 5.3 mmol/L [facility], [facility].; [facility], [facility]. Protein [Mass/Vol] 7.0 g/dL Normal 6.1 - 8.1 g/dL [facility], [facility].; [facility], [facility]. Sodium [Moles/Vol] 139 mmol/L Normal 135 - 146 mmol/L [facility]; [facility] HospitalD&[facility] [employer] [facility] Triglyceride [Mass/Vol] 145 mg/dL Normal [facility]; [employer] [facility] [employer] [facility] Urea nitrogen [Mass/Vol] 13 mg/dL Normal 7 - 25 mg/dL [facility]; [employer] [facility] HamiltonD[facility] [facility] No Panel Informationon 04-16 BUN/CREATININE RATIO NOT APPLICABLE Normal 6 - 22 [facility]; [employer] [facility] HamiltonD[facility] [facility] CHOL/HDLC RATIO 3.6 Normal [facility]; [employer] [facility] HamiltonD[facility] [employer] [facility] eGFR NON-AFR. [place] 76 Normal [facility]; [facility] HospitalD&[facility] [employer] [facility] GLOBULIN 3.0 Normal 1.9 - 3.7 [facility]; [facility], [facility] NON HDL CHOLESTEROL 151 Abnormal [facility]; [employer] [facility] [employer] [facility] Laboratory - Chemistry and C hemistry - challengeon 04-11-2021 Albumin [Mass/Vol] 4.0 g/dL Normal 3.6 - 5.1 g/dL [facility]; [employer] [facility], [facility] Albumin/Globulin [Mass ratio] 1.3 {ratio} Normal 1.0 - 2.5 [facility]; [employer] [facility], [facility] ALP [Catalytic activity/Vol] 67 U/L Normal 37 - 153 U/L [facility]; [employer] [facility], [facility]. ALT [Catalytic activity/Vol] 36 U/L Abnormal 6 - 29 U/L [facility]; [employer] [facility], [facility]. AST [Catalytic activity/Vol] 30 U/L Normal 10 - 35 U/L [facility] HospitalD[facility] [employer] [facility].; [employer] [facility], [facility]. Bilirubin [Mass/Vol] 0.4 mg/dL Normal 0.2 - 1 .2 mg/dL [facility] HospitalD&[facility] [employer] [facility]; [employer] [facility], [facility] Calcium [Mass/Vol] 9.6 mg/dL Normal 8.6 - 10. 4 mg/dL [facility], [facility].; [employer], [facility] Chloride [Moles/Vol] 103 mmol/L Normal 98 - 11 0 mmol/L [facility] HospitalD[facility] [employer] [facility]; [facility], [facility]. Cholesterol [Mass/Vol] 247 mg/dL Abnormal [facility]D&[facility] [employer] [facility].; [facility], [facility]. Cholesterol in HDL [Mass/Vol] 65 mg/dL Normal [facility], [facility].; [facility], Inc[employer] Cholesterol in LDL [Mass/Vol] 163 mg/dL Abnormal [facility], [facility].; [facility], [facility]. CO2 [Moles/Vol] 28 mmol/L Normal 20 - 32 mmol/L [facility] HospitalD&[facility] [employer] [facility].; [facility], [facility]. Creatinine [Mass/Vol] 0.73 mg/dL Normal 0.60 - 0.93 mg/dL [facility], [facility].; [facility], [facility]. GFR/1.73 sq M.predicted among blacks MDRD (S/P/Bld) [Vol rate/Area] 96 mL/min/{1.73_m2} Normal [facility], [facility].; [facility], [employer]. Glucose [Mass/Vol] 115 mg/dL Abnormal 65 - 99 mg/dL [facility], [facility].; [employer], [facility]. Potassium [Moles/Vol] 4.1 mmol/L Normal 3.5 - 5.3 mmol/L [facility], [facility].; [employer], [employer]. Protein [Mass/Vol] 7.0 g/dL Normal 6.1 - 8.1 g/dL [facility], [facility].; [employer], [employer]. Sodium [Moles/Vol] 139 mmol/L Normal 135 - 146 mmol/L [facility] HospitalD[facility] [employer] [facility].; [employer], [employer]. Triglyceride [Mass/Vol] 88 mg/dL Normal [facility] HospitalD[facility] [employer] [facility].; [employer], [employer]. Urea nitrogen [Mass/Vol] 16 mg/dL Normal 7 - 25 mg/dL [facility], [facility].; [employer], [employer]. No Panel Informationon 04-11 BUN/CREATININE RATIO NOT APPLICABLE Normal - [facility], [facility].; [employer] CHOL/HDLC RATIO 3.8 Normal [facility], [facility].; [employer] eGFR NON-AFR. [place] 83 Normal [facility] [employer] [facility].; [employer], [facility]. GLOBULIN 3.0 Normal 1.9 - 3.7 [facility] HospitalD&[facility] [employer] [facility].; [employer] [facility], [facility] NON HDL CHOLESTEROL 182 Abnormal [facility] [employer] [facility].; [facility], [facility] Laboratory - Hematology and Cell countson 01-23-2021 Basophils (Bld) [#/Vol] 0.062 10*3/uL Normal 0 - 200 {cells/uL} [facility] HospitalD[facility] [employer] [facility].; [employer] [facility], [facility] Basophils/100 WBC (Bld) 0.8 % Normal [facility] HospitalD[facility] [employer] [facility].; [facility], [facility] Eosinophils (Bld) [#/Vol] 0.3 10*3/uL Normal 15 - 500 {cells/uL} [facility] HospitalD&[facility] [employer] [facility].; [employer] [facility], [facility] Eosinophils/100 WBC (Bld) 3.9 % Normal [facility] HospitalD&[facility] [employer] [facility].; [employer], [facility] Erythrocyte distribution width (RBC) [Ratio] 13.3 % Normal 11.0 - 15.0 % [facility] HospitalD&[facility] [employer] [facility].; [employer] [facility], [facility] Hematocrit (Bld) [Volume fraction] 44.6 % Normal 35.0 - 45.0 % [facility] HospitalD&[facility] [employer] [facility].; [employer] [facility], [facility] Hemoglobin (Bld) [Mass/Vol] 14.6 g/dL Normal 11.7 - 15.5 g/dL [facility] HospitalD[facility] [employer] [facility].; [employer] [facility], [facility] Lymphocytes (Bld) [#/Vol] 2.025 10*3/uL Normal 850 - 3900 {cells/uL} [facility] HospitalD&[facility] [employer] [facility].; [employer] [facility] [employer] [facility] Lymphocytes/100 WBC (Bld) 26.3 % Normal [facility] HospitalD[facility] [employer] [facility].; [employer] [facility], [facility] MCH (RBC) [Entitic mass] 30.4 pg Normal 27.0 - 33.0 pg [facility] HospitalD&[facility] [employer] [facility].; [employer] [facility], [facility]. MCHC (RBC) [Mass/Vol] 32.7 g/dL Normal 32.0 - 36.0 g/dL [facility] HospitalD&[facility] [employer] [facility].; [employer], [facility]. MCV (RBC) [Entitic vol] 92.9 fL Normal 80.0 - 100.0 fL [facility] HospitalBt[facility].; [facility] HospitalD&[facility] [employer] [facility]. Monocytes (Bld) [#/Vol] 0.747 10*3/uL Normal 200 - 950 {cells/uL} [facility] HospitalD&[facility] [employer] [facility].; [facility] HospitalBtiques. Monocytes/100 WBC (Bld) 9.7 % Normal [facility] HospitalD[facility] [employer] [facility].; [facility], [facility]. Neutrophils (Bld) [#/Vol] 4.566 10*3/uL Normal 1500 - 7800 {cells/uL} [facility] HospitalD[facility] [employer] [facility].; [employer]. Neutrophils/100 WBC (Bld) 59.3 % Normal [facility] HospitalD[facility] [employer] [facility].; [employer], [employer]. Platelet mean volume (Bld) [Entitic vol] 9.7 fL Normal 7.5 - 12.5 fL [facility] HospitalD[facility] [employer] [facility].; [employer], [employer]. Platelets (Bld) [#/Vol] 360 10*3/uL Normal 140 - 400 [facility] HospitalD[facility] [employer] [facility].; [employer]. RBC (Bld) [#/Vol] 4.80 10*6/uL Normal 3.80 - 5.10 {Million/u L} [facility] HospitalD[facility] [employer] [facility].; [employer], [employer]. WBC (Bld) [#/Vol] 7.7 10*3/uL Normal 3.8 - 10.8 [facility] HospitalD[facility] [employer] [facility].; [employer]. Laboratory - Chemistry and C hemistry - challengeon 06-18-2020 Albumin [Mass/Vol] 3.9 g/dL Normal 3.6 - 5.1 g/dL [facility] HospitalD[facility] [employer] [facility].; [employer] [facility], [facility]. Albumin/Globulin [Mass ratio] 1.4 {ratio} Normal 1.0 - 2.5 [facility] HospitalD[facility] [employer] [facility].; [employer]. ALP [Catalytic activity/Vol] 62 U/L Normal 37 - 153 U/L [facility] HospitalD[facility] [employer] [facility].; [employer] [facility], [employer]. ALT [Catalytic activity/Vol] 33 U/L Abnormal 6 - 29 U/L [facility] HospitalD[facility] [employer] [facility].; [employer], [employer]. AST [Catalytic activity/Vol] 35 U/L Normal 10 - 35 U/L [facility].; [facility], [facility]. Bilirubin [Mass/Vol] 0.4 mg/dL Normal 0.2 - 1 .2 mg/dL [facility] HospitalD[facility] [employer] [facility].; [facility], [facility]. Calcium [Mass/Vol] 9.5 mg/dL Normal 8.6 - 10. 4 mg/dL [facility], [facility].; [facility] [facility], [facility]. Chloride [Moles/Vol] 108 mmol/L Normal 98 - 11 0 mmol/L [facility], [facility].; [facility], [facility]. Cholesterol [Mass/Vol] 207 mg/dL Abnormal [facility].; [facility], [facility] Cholesterol in HDL [Mass/Vol] 53 mg/dL Normal [facility] [employer] [facility].; [facility], [facility]. Cholesterol in LDL [Mass/Vol] 128 mg/dL Abnormal [facility], [facility].; [facility], [facility]. CO2 [Moles/Vol] 14 mmol/L Abnormal 20 - 32 mmol/L [facility] [employer] [facility].; [facility], [facility]. Creatinine [Mass/Vol] 0.82 mg/dL Normal 0.60 - 0.93 mg/dL [facility], [facility].; [facility], [facility]. GFR/1.73 sq M.predicted among blacks MDRD (S/P/Bld) [Vol rate/Area] 84 mL/min/{1.73_m2} Normal [facility], [facility].; [facility], [facility]. Glucose [Mass/Vol] 87 mg/dL Normal 65 - 99 mg/dL [facility], [facility].; [facility], [facility]. Potassium [Moles/Vol] 4.9 mmol/L Normal 3.5 - 5.3 mmol/L [facility], [facility].; [employer] [facility], [facility]. Protein [Mass/Vol] 6.6 g/dL Normal 6.1 - 8.1 g/dL [facility], [facility].; [employer] [facility] Sodium [Moles/Vol] 140 mmol/L Normal 135 - 146 mmol/L [facility], [facility].; [employer] [facility] Triglyceride [Mass/Vol] 151 mg/dL Abnormal [facility] [employer] [facility].; [employer] [facility], [facility]. Urea nitrogen [Mass/Vol] 13 mg/dL Normal 7 - 25 mg/dL [employer] No Panel Informationon 06-18 [id number] SEE NOTE Normal [employer] Work Phone: BUN/CREATININE RATIO NOT APPLICABLE Normal 6 - 22 [facility] [employer], [employer] CHOL/HDLC RATIO 3.9 Normal [employer] eGFR NON-AFR. GREEN[place]IC 72 Normal [facility] [employer]. EXTRA LAVENDER-TOP TUBE See Below Normal [employer]; [employer] Work Phone: GLOBULIN 2.7 Normal 1.9 - 3.7 [employer] [facility]; [employer] NON HDL CHOLESTEROL 154 Abnormal [facility] [employer] Laboratory - Chemistry and C hemistry - challengeon 04-25-2019 25-hydroxyvitamin D3 [Mass/Vol] 30 ng/mL Normal 30 - 100 ng/mL [employer] Albumin [Mass/Vol] 3.8 g/dL Normal 3.6 - 5.1 g/dL [employer]. Albumin/Globulin [Mass ratio] 1.4 {ratio} Normal 1.0 - 2.5 [employer]. ALP [Catalytic activity/Vol] 64 U/L Normal 33 - 130 U/L [employer] ALT [Catalytic activity/Vol] 25 U/L Normal 6 - 29 U/L [employer]. AST [Catalytic activity/Vol] 21 U/L Normal 10 - 35 U/L [employer]. Bilirubin [Mass/Vol] 0.4 mg/dL Normal 0.2 - 1 .2 mg/dL [employer]. Calcium [Mass/Vol] 9.0 mg/dL Normal 8.6 - 10. 4 mg/dL [facility], [facility].; [facility], [facility]. Chloride [Moles/Vol] 103 mmol/L Normal 98 - 11 0 mmol/L [facility], [facility].; [facility], [facility]. Cholesterol [Mass/Vol] 191 mg/dL Normal [facility], [facility].; [facility], [facility] Cholesterol in HDL [Mass/Vol] 54 mg/dL Normal [facility], [facility].; [facility], [facility]. Cholesterol in LDL [Mass/Vol] 112 mg/dL Abnormal 0 - 100 mg/dL [facility], [facility].; [facility], [facility] Cholesterol non HDL [Mass/Vol] 137 mg/dL Abnormal [facility], [facility]. Cholesterol.total/Chol esterol in HDL [Mass ratio] 3.5 {ratio} Normal [facility], [facility].; [facility], [facility] CO2 [Moles/Vol] 26 mmol/L Normal 20 - 32 mmol/L [facility], [facility].; [employer] [facility], [facility]. Creatinine [Mass/Vol] 0.67 mg/dL Normal 0.50 - 0.99 mg/dL [facility], [facility].; [facility], [facility]. GFR/1.73 sq M.predicted among blacks MDRD (S/P/Bld) [Vol rate/Area] 104 {ML/MIN/1.73M2} Normal [facility], [facility].; [facility], [facility]. GFR/1.73 sq M.predicted MDRD (S/P/Bld) [Vol rate/Area] 90 {ML/MIN/1.73M2} Normal [facility], [facility].; [employer] [facility], [facility]. Globulin (S) [Mass/Vol] 2.7 g/dL Normal 1.9 - 3.7 g/dL [facility], [facility].; [facility], [facility]. Glucose [Mass/Vol] 95 mg/dL Normal 65 - 99 mg/dL [facility], [facility].; [employer] [facility], [facility]. Potassium [Moles/Vol] 4.2 mmol/L Normal 3.5 - 5.3 mmol/L [facility], [facility].; [facility], [facility]. Protein [Mass/Vol] 6.5 g/dL Normal 6.1 - 8.1 g/dL [employer] [facility].; [employer]. Sodium [Moles/Vol] 136 mmol/L Normal 135 - 146 mmol/L [facility].; [employer]. Triglyceride [Mass/Vol] 137 mg/dL Normal [facility].; [employer]. Urea nitrogen [Mass/Vol] 19 mg/dL Normal 7 - 25 mg/dL [employer] [facility] [employer] [facility].; [employer]. Urea nitrogen/Creatinine [Mass ratio] 28.8 mg/mg Abnormal 6 - 22 [facility]; [employer]. Laboratory - Chemistry and C hemistry - challengeon 10-04-2018 Bilirubin Ql (U) Negative Normal [facility].; [employer]. Ketones Ql (U) Negative Normal [employer] [facility] [employer]. pH (U) 6.0 [pH] Normal [employer]. Specific gravity (U) [Rel density] 1.025 Normal [employer]; [employer] Urobilinogen Qn (U) 0.2 mg/dL Normal [facility] [employer] [facility].; [employer]. Laboratory - Hematology and Cell countson 10-04-2018 Hemoglobin Ql (U) trace, hemolyzed Abnormal [facility] [employer]. Laboratory - Specimen inform ationon 10-04-2018 Appearance (U) clear Normal [employer]; [employer]. Color (U) yellow Normal [employer]. Laboratory - Urinalysison Glucose Test strip (U) [Mass/Vol] Negative Normal [employer]. Leukocyte esterase Test strip Ql (U) small Abnormal [employer]. Nitrite Ql (U) Negative Normal [employer] Protein Ql (U) 30 mg/dL Abnormal [employer]. Laboratory - Chemistry and C hemistry - challengeon 11-09-2017 Bilirubin Ql (U) Negative Normal [employer]. Ketones Ql (U) Negative Normal [employer]. pH (U) 7.0 [pH] Normal [employer]. Specific gravity (U) [Rel density] 1.020 Normal [employer]. Urobilinogen Qn (U) 0.2 mg/dL Normal [employer]. Laboratory - Hematology and Cell countson 11-09-2017 Hemoglobin Ql (U) Negative Normal [employer]. Laboratory - Specimen inform ationon 11-09-2017 Appearance (U) cloudy Abnormal [employer]; [employer]. Color (U) yellow Normal [employer]. Laboratory - Urinalysison Glucose Test strip (U) [Mass/Vol] Negative Normal [employer]. Leukocyte esterase Test strip Ql (U) small Abnormal [employer]. Nitrite Ql (U) Negative Normal [employer]. Protein Ql (U) Negative Normal [employer]; [employer]. Cardiac Troponin-Ion 10-26- 017 Troponin I.cardiac mass conc ng/mL Normal < 45.0 [facility] Comment on above: Result Comment: Elev ation [...] otherwise noted, all testing performed by [facility] [address] [phone]: [id number] Director: Robin Hills M.D. Culture, Urineon 10-26-2017 [...] 1 FTrimeth/Sulfa S <= 20 F Normal [facility] Comment on above: Performed By: #### C BCDIF, PT, CMET, EDCTNI, LIPASE ####Unless otherwise noted, all testing performed by [address] [phone]: [id number] Director: Robin Hills M.D. Lipid Panelon 10-26-2017 Cholesterol 188 mg/dL Normal 100-199 [facility] Comment on above: Performed By: #### T SH, CTNI, LIPID ####Unless otherwise noted, all testing performed by [address] [phone]: [id number] Director: Robin Hills M.D. Cholesterol in VLDL mass conc 25 mg/dL Normal 5-40 [facility] Comment on above: Performed By: #### T SH, CTNI, LIPID ####Unless otherwise noted, all testing performed by [address] [phone]: [id number] Director: Robin Hills M.D. Cholesterol to HDL Ratio 3.2 {ratio} Normal 3.2-4.5 [facility] Comment on above: Result Comment: Bijan brenda Coronary Heart Disease Risk Factor (CHDRF):Average risk= 4.41/2 Average risk= 3.32 times Average risk= 7.1 Performed By: #### T SH, CTNI, LIPID ####Unless otherwise noted, all testing performed by [address] [phone]: [id number] Director: Robin Hills M.D. HDL Cholesterol 59 mg/dL Normal 40-59 [facility] Comment on above: Performed By: #### T SH, CTNI, LIPID ####Unless otherwise noted, all testing performed by [address] [phone]: [id number] Director: Robin Hills M.D. LDL Cholesterol 104 mg/dL Normal 10-150 [facility] Comment on above: Performed By: #### T SH, CTNI, LIPID ####Unless otherwise noted, all testing performed by [address] [phone]: [id number] Director: Robin Hills M.D. Triglyceride 123 mg/dL Normal 30-150 [facility] Comment on above: Performed By: #### T SH, CTNI, LIPID ####Unless otherwise noted, all testing performed by [address] [phone]: [id number] Director: Robin Hills M.D. Troponin I.cardiac mass conc No Biomarker evidence of myocardial injury within the past 14 hours. Normal [facility] Comment on above: Performed By: #### T SH, CTNI, LIPID ####Unless otherwise noted, all testing performed by [address] [phone]: [id number] Director: Robin Hills M.D. TSHon 10-26-2017 Thyroid stimulating hormone (TSH) 3.53 uIU/mL Normal 0.32-5.00 [facility] Comment on above: Result Comment: Samp les from patients routinely receiving high dose biotin therapy(100-300 mg/day) may show falsely decreased results. Please correlateclinically. Performed By: #### T SH, CTNI, LIPID ####Unless otherwise noted, all testing performed by [address] [phone]: [id number] Director: Robin Hills M.D. Urine with Indicated Culture on 10-26-2017 Bilirubin,Urine Negative Normal NEG;NEGATI VE [facility] Comment on above: Performed By: #### C BCDIF, PT, CMET, EDCTNI, LIPASE ####Unless otherwise noted, all testing performed by [address] [phone]: [id number] Director: Robin Hills M.D. Blood,Urine Negative Normal NEG;NEGATI VE [facility] Comment on above: Performed By: #### C BCDIF, PT, CMET, EDCTNI, LIPASE ####Unless otherwise noted, all testing performed by [address] [phone]: [id number] Director: Robin Hills M.D. Ketone,Urine Negative Normal NEGATIVE;N EG [facility] Comment on above: Performed By: #### C BCDIF, PT, CMET, EDCTNI, LIPASE ####Unless otherwise noted, all testing performed by [address] [phone]: [id number] Director: Robin Hills M.D. Leuk.Esterase,Urine Small Abnormal Negative [facility] Comment on above: Performed By: #### C BCDIF, PT, CMET, EDCTNI, LIPASE ####Unless otherwise noted, all testing performed by [address] [phone]: [id number] Director: Robin Hills M.D. Mucus, Urine Few Abnormal None Seen [facility] Comment on above: Performed By: #### C BCDIF, PT, CMET, EDCTNI, LIPASE ####Unless otherwise noted, all testing performed by [address] [phone]: [id number] Director: Robin Hills M.D. Nitrite,Urine Positive Abnormal NEG;NEGATI VE [facility] Comment on above: Performed By: #### C BCDIF, PT, CMET, EDCTNI, LIPASE ####Unless otherwise noted, all testing performed by [address] [phone]: [id number] Director: Robin Hills M.D. Protein,Urine Negative Normal NEGATIVE;N EG [facility] Comment on above: Performed By: #### C BCDIF, PT, CMET, EDCTNI, LIPASE ####Unless otherwise noted, all testing performed by [address] [phone]: [id number] Director: Robin Hills M.D. Specific [place],Urine 1.010 Normal 1.003 -1.02 9 [facility] Comment on above: Performed By: #### C BCDIF, PT, CMET, EDCTNI, LIPASE ####Unless otherwise noted, all testing performed by [address] [phone]: [id number] Director: Robin Hills M.D. Squamous Epithelial 5-10 Abnormal 0-3+;NS [facility] Comment on above: Performed By: #### C BCDIF, PT, CMET, EDCTNI, LIPASE ####Unless otherwise noted, all testing performed by [place] [phone]: [id number] Director: Robin Hills M.D. Urine, bacteria in sediment Many Abnormal NS;RARE [facility] Comment on above: Performed By: #### C BCDIF, PT, CMET, EDCTNI, LIPASE ####Unless otherwise noted, all testing performed by [address] [phone]: [id number] Director: Robin Hills M.D. Urine, character Slightly Cloudy Normal [facility] Comment on above: Performed By: #### C BCDIF, PT, CMET, EDCTNI, LIPASE ####Unless otherwise noted, all testing performed by [address] [phone]: [id number] Director: Robin Hills M.D. Urine, color Yellow Normal [facility] Comment on above: Performed By: #### C BCDIF, PT, CMET, EDCTNI, LIPASE ####Unless otherwise noted, all testing performed by [address] [place] [phone]: [id number] Director: Robin Hills M.D. Urine, erythrocytes in sediment by area 0-3 Normal 0-3+;NS [facility] Comment on above: Performed By: #### C BCDIF, PT, CMET, EDCTNI, LIPASE ####Unless otherwise noted, all testing performed by [address] [phone]: [id number] Director: Robin Hills M.D. Urine, glucose presence Negative Normal NEG;NEGATI VE [facility] Comment on above: Performed By: #### C BCDIF, PT, CMET, EDCTNI, LIPASE ####Unless otherwise noted, all testing performed by [address] [phone]: [id number] Director: Robin Hills M.D. Urine, leukocytes in sedmiment 40-60 Abnormal 0-3+;3-5+; NS [facility] Comment on above: Performed By: #### C BCDIF, PT, CMET, EDCTNI, LIPASE ####Unless otherwise noted, all testing performed by [address] [phone]: [id number] Director: Robin Hills M.D. Urine, pH 6.5 [pH] Normal 4.5-8.0 [facility] Comment on above: Performed By: #### C BCDIF, PT, CMET, EDCTNI, LIPASE ####Unless otherwise noted, all testing performed by [address] [phone]: [id number] Director: Robin Jeana, M.D. Urobilinogen,Urine 0.2 EU/dL Normal 0.2 [facility] Comment on above: Performed By: #### C BCDIF, PT, CMET, EDCTNI, LIPASE ####Unless otherwise noted, all testing performed by [address] [phone]: [id number] Director: Robin Hills M.D. CBC with Diffon 10-25-2017 Basophils Auto #/vol (Bld) 0.1 K/mcL Normal 0-0.2 [facility] Comment on above: Performed By: #### C BCDIF, PT, CMET, EDCTNI, LIPASE ####Unless otherwise noted, all testing performed by [address] [phone]: [id number] Director: Robin Hills M.D. Basophils/100 WBC Auto (Bld) 0.7 % Normal [facility] Comment on above: Performed By: #### C BCDIF, PT, CMET, EDCTNI, LIPASE ####Unless otherwise noted, all testing performed by [address] [phone]: [id number] Director: Robin Hills M.D. Eosinophils 0.2 K/mcL Normal 0-0.5 [facility] Comment on above: Performed By: #### C BCDIF, PT, CMET, EDCTNI, LIPASE ####Unless otherwise noted, all testing performed by [address] [phone]: [id number] Director: Robin Hills M.D. Eosinophils/100 leukocytes 2.0 % Normal [facility] Comment on above: Performed By: #### C BCDIF, PT, CMET, EDCTNI, LIPASE ####Unless otherwise noted, all testing performed by [address] [phone]: [id number] Director: Robin Hills M.D. Erythrocyte distribution width Auto Ratio (RBC) 13.3 % Normal 10-14.4 [facility] Comment on above: Performed By: #### C BCDIF, PT, CMET, EDCTNI, LIPASE ####Unless otherwise noted, all testing performed by [address] [phone]: [id number] Director: Robin Hills M.D. Erythrocytes (RBC) 4.57 M/mcL Normal 3.7-5.0 [facility] Comment on above: Performed By: #### C BCDIF, PT, CMET, EDCTNI, LIPASE ####Unless otherwise noted, all testing performed by [address] [phone]: [id number] Director: Robin Hills M.D. Hematocrit (HCT) 41.4 % Normal 34.4-44.8 [facility] Comment on above: Performed By: #### C BCDIF, PT, CMET, EDCTNI, LIPASE ####Unless otherwise noted, all testing performed by [address] [phone]: [id number] Director: Robin Hills M.D. Hemoglobin mass conc (Bld) 13.7 g/dL Normal 11.6-15.4 [facility] Comment on above: Performed By: #### C BCDIF, PT, CMET, EDCTNI, LIPASE ####Unless otherwise noted, all testing performed by [address] [phone]: [id number] Director: Robin Hills M.D. Lymphocytes 2.0 K/mcL Normal 1.0-3.7 [facility] Comment on above: Performed By: #### C BCDIF, PT, CMET, EDCTNI, LIPASE ####Unless otherwise noted, all testing performed by [address] [phone]: [id number] Director: Robin Hills M.D. Lymphocytes/100 leukocytes 21.3 % Normal [facility] Comment on above: Performed By: #### C BCDIF, PT, CMET, EDCTNI, LIPASE ####Unless otherwise noted, all testing performed by [address] [phone]: [id number] Director: Robin Hills M.D. MCH 30.0 pg Normal 27.9-33.9 [facility] Comment on above: Performed By: #### C BCDIF, PT, CMET, EDCTNI, LIPASE ####Unless otherwise noted, all testing performed by [address] [phone]: [id number] Director: Robin Hills M.D. MCHC mass conc (RBC) 33.2 g/dL Normal 33.1-35.1 [facility] Comment on above: Performed By: #### C BCDIF, PT, CMET, EDCTNI, LIPASE ####Unless otherwise noted, all testing performed by [address] [phone]: [id number] Director: Robin Hills M.D. MCV 90.5 fL Normal 82.6-98.9 [facility] Comment on above: Performed By: #### C BCDIF, PT, CMET, EDCTNI, LIPASE ####Unless otherwise noted, all testing performed by [address] [phone]: [id number] Director: Robin Hills M.D. Monocytes 0.7 K/mcL High 0.1-0.6 [facility] Comment on above: Performed By: #### C BCDIF, PT, CMET, EDCTNI, LIPASE ####Unless otherwise noted, all testing performed by [place] [phone]: [id number] Director: Robin Hills M.D. Monocytes/100 leukocytes 7.1 % Normal [facility] Comment on above: Performed By: #### C BCDIF, PT, CMET, EDCTNI, LIPASE ####Unless otherwise noted, all testing performed by [place] [phone]: [id number] Director: Robin Hills M.D. Neutrophils 6.3 K/mcL Normal 1.2-6.9 [facility] Comment on above: Performed By: #### C BCDIF, PT, CMET, EDCTNI, LIPASE ####Unless otherwise noted, all testing performed by [address] [phone]: [id number] Director: Robin Hills M.D. Platelet mean volume (PMV) 7.6 fL Normal 7.0-10.6 [facility] Comment on above: Performed By: #### C BCDIF, PT, CMET, EDCTNI, LIPASE ####Unless otherwise noted, all testing performed by [address] [phone]: [id number] Director: Robin Hills M.D. Platelets 314 K/mcL Normal 162-402 [facility] Comment on above: Performed By: #### C BCDIF, PT, CMET, EDCTNI, LIPASE ####Unless otherwise noted, all testing performed by [address] [phone]: [id number] Director: Robin Hills M.D. Segmented Neut % 68.9 % Normal [facility] Comment on above: Performed By: #### C BCDIF, PT, CMET, EDCTNI, LIPASE ####Unless otherwise noted, all testing performed by [address] [phone]: [id number] Director: Robin Hills M.D. WBC (Leukocytes) 9.2 K/mcL Normal 3.4-10.6 [facility] Comment on above: Performed By: #### C BCDIF, PT, CMET, EDCTNI, LIPASE ####Unless otherwise noted, all testing performed by [address] [phone]: [id number] Director: Robin Hills M.D. CHEST (ONE VIEW ONLY)on 10-03 CHEST (ONE VIEW ONLY) Final ReportAccession No: [id number] Performed: Oct 25 2017 3:25PMExamination: CHEST (ONE VIEW ONLY)Vomiting and/or nauseaCHEST (ONE VIEW ONLY) 10/25/2017 3:25 PMFINDINGS: The lungs are well-expanded. There is groundglass density atthe left lung base. There is subtle blunting of the costophrenic sulci.Cardiac silhouette is enlarged. There is moderate thoracic spondylosis.No pneumothorax.IMPRESSION:1. Small bilateral pleural effusions.2. Borderline enlargement of cardiac silhouette.Interpreting Physician: UBALDO CHÁVEZ M.D.Trans: : cc: Normal [facility] CT BRAIN W/O CONTRASTon 10-03 CT BRAIN W/O CONTRAST Final ReportAccession No: [id number] Performed: Oct 25 2017 5:11PMExamination: CT [...] to prior examinations is recommendedto ensure stability.LEOLA Lee/KAVITHAlecmartinaally Signed by and VerifiedDate Report Signed: 10/26/2017 6:39:08 PMInterpreting Physician: FELIPE,Trans: [id number] : cc: Normal [facility] Metabolic Pane anish 10-25-2017 Alanine aminotransferase (ALT) 42 U/L Normal 14-65 [facility] Comment on above: Result Comment: This test result might be falsely depressed or falsely elevated onsamples drawn from patients taking Sulfasalazine and Sulfapyridine.Venipuncture should occur prior to taking either of these drugs. Performed By: #### C BCDIF, PT, CMET, EDCTNI, LIPASE ####Unless otherwise noted, all testing performed by [address] [phone]: [id number] Director: Robin Hills M.D. Albumin 3.2 g/dL Normal 3.2-5.2 [facility] Comment on above: Performed By: #### C BCDIF, PT, CMET, EDCTNI, LIPASE ####Unless otherwise noted, all testing performed by [address] [phone]: [id number] Director: Robin Hills M.D. Alkaline phosphatase (ALP) 72 U/L Normal 40-150 [facility] Comment on above: Performed By: #### C BCDIF, PT, CMET, EDCTNI, LIPASE ####Unless otherwise noted, all testing performed by [address] [phone]: [id number] Director: Robin Hills M.D. Aspartate aminotransferase (AST) 38 U/L Normal 0-45 [facility] Comment on above: Result Comment: This test result might be falsely depressed or falsely elevated onsamples drawn from patients taking Sulfasalazine and Sulfapyridine.Venipuncture should occur prior to taking either of these drugs. Performed By: #### C BCDIF, PT, CMET, EDCTNI, LIPASE ####Unless otherwise noted, all testing performed by [address] [phone]: [id number] Director: Robin Hills M.D. Bilirubin (total) 0.4 mg/dL Normal 0.3-1.2 [facility] Comment on above: Performed By: #### C BCDIF, PT, CMET, EDCTNI, LIPASE ####Unless otherwise noted, all testing performed by [address] [phone]: [id number] Director: Robin Hills M.D. Calcium 8.9 mg/dL Normal 8.4-10.2 [facility] Comment on above: Performed By: #### C BCDIF, PT, CMET, EDCTNI, LIPASE ####Unless otherwise noted, all testing performed by [address] [phone]: [id number] Director: Robin Hills M.D. Chloride 105 mmol/L Normal 98-108 [facility] Comment on above: Performed By: #### C BCDIF, PT, CMET, EDCTNI, LIPASE ####Unless otherwise noted, all testing performed by [address] [phone]: [id number] Director: Robin Hills M.D. CO2 24 mmol/L Normal 21-32 [facility] Comment on above: Performed By: #### C BCDIF, PT, CMET, EDCTNI, LIPASE ####Unless otherwise noted, all testing performed by [address] [phone]: [id number] Director: Robin Hills M.D. Creatinine 0.89 mg/dL Normal 0.60-1.20 [facility] Comment on above: Performed By: #### C BCDIF, PT, CMET, EDCTNI, LIPASE ####Unless otherwise noted, all testing performed by [address] [phone]: [id number] Director: Robin Hills M.D. eGFR (black) mL/min/{1.73_m2} Normal [facility] Comment on above: Result Comment: Afri can [place] GFR Calc Performed By: #### C BCDIF, PT, CMET, EDCTNI, LIPASE ####Unless otherwise noted, all testing performed by [address] [phone]: [id number] Director: Robin Hills M.D. eGFR (non-black) mL/min/{1.73_m2} Normal [facility] Comment on above: Result Comment: [...] ####Unless otherwise noted, all testing performed by [address] [phone]: [id number] Director: Robin Hills M.D. Glucose mass conc 135 mg/dL High 70-99 [facility] Comment on above: Result Comment: This test result might be falsely depressed or falsely elevated onsamples drawn from patients taking Sulfasalazine and Sulfapyridine.Venipuncture should occur prior to taking either of these drugs. Performed By: #### C BCDIF, PT, CMET, EDCTNI, LIPASE ####Unless otherwise noted, all testing performed by [address] [phone]: [id number] Director: Robin Hills M.D. Potassium molar conc 3.8 mmol/L Normal 3.5-5.1 [facility] Comment on above: Performed By: #### C BCDIF, PT, CMET, EDCTNI, LIPASE ####Unless otherwise noted, all testing performed by [address] [phone]: [id number] Director: Robin Hills M.D. Protein 7.6 g/dL Normal 6.0-8.0 [facility] Comment on above: Performed By: #### C BCDIF, PT, CMET, EDCTNI, LIPASE ####Unless otherwise noted, all testing performed by [address] [phone]: [id number] Director: Robin Hills M.D. Sodium 138 mmol/L Normal 135-145 [facility] Comment on above: Performed By: #### C BCDIF, PT, CMET, EDCTNI, LIPASE ####Unless otherwise noted, all testing performed by [address] [phone]: [id number] Director: Robin Hills M.D. Urea nitrogen 12 mg/dL Normal 8-25 [facility] Comment on above: Performed By: #### C BCDIF, PT, CMET, EDCTNI, LIPASE ####Unless otherwise noted, all testing performed by [address] [phone]: [id number] Director: Robin Hills M.D. ED Cardiac Troponin-Ion 12-2 Troponin I.cardiac mass conc ng/mL Normal < 45 [facility] Comment on above: Result Comment: Elev ation [...] ####Unless otherwise noted, all testing performed by [address] [phone]: [id number] Director: Robin Hills M.D. Influenza A,B Rapid Molecula dot 10-25-2017 Influenza A Rapid Molecular Not Detected Normal Not Detected [facility] Comment on above: Performed By: #### F LUNAT ####Unless otherwise noted, all testing performed by [address] [phone]: [id number] Director: Robin Hills M.D. Influenza B Rapid Molecular Not Detected Normal Not Detected [facility] Comment on above: Performed By: #### F LUNAT ####Unless otherwise noted, all testing performed by [address] [phone]: [id number] Director: Robin Hills M.D. Lipaseon 10-25-2017 Lipase 115 U/L Normal 73-393 [facility] Comment on above: Performed By: #### C BCDIF, PT, CMET, EDCTNI, LIPASE ####Unless otherwise noted, all testing performed by [address] [phone]: [id number] Director: Robin Hills M.D. Protimeon 10-25-2017 INR Coag RelTime (PPP) 0.90 {INR} Normal [facility] Comment on above: Result Comment: The [place] [employer] recommended therapeutic rangefor Warfarin (Coumadin) therapy goals:PROPHYLAXIS/TREATMENT of:INRVenous Thrombosis, Pulmonary Embolism2.0-3.0Prevention of VTE (Orthopedic Surgery)2.0-3.0Atrial Fibrillation2.0-3.0Myocardial Infarction2.0-3.0Mechanical Prosthetic Heart Valves (Aortic position)2.0-3.0Mechanical Prosthetic Heart Valves (Mitral Position)2.5-3.5Ado[facility] [employer] of [employer] evidence-based clinical practiceguidelines. CHEST. 2012 (9th ed) Performed By: #### C BCDIF, PT, CMET, EDCTNI, LIPASE ####Unless otherwise noted, all testing performed by [address] [phone]: [id number] Director: Robin Hills M.D. Prothrombin time (PT) Coag time (PPP) 11.8 s Normal 11.8-14.3 [facility] Comment on above: Performed By: #### C BCDIF, PT, CMET, EDCTNI, LIPASE ####Unless otherwise noted, all testing performed by [address] [phone]: [id number] Director: Robin Hills M.D. Laboratory - Chemistry and C hemistry - challenge 04-29-2017 Albumin [Mass/Vol] 3.9 g/dL Normal 3.6 - 5.1 g/dL [employer] Albumin/Globulin [Mass ratio] 1.3 {ratio} Normal 1.0 - 2.5 [employer], [employer]. ALP [Catalytic activity/Vol] 69 U/L Normal 33 - 130 U/L [employer].; [employer], [employer]. ALT [Catalytic activity/Vol] 27 U/L Normal 6 - 29 U/L [employer], [employer], [employer] AST [Catalytic activity/Vol] 26 U/L Normal 10 - 35 U/L [employer].; [employer] Bilirubin [Mass/Vol] 0.4 mg/dL Normal 0.2 - 1 .2 mg/dL [facility].; [facility]. Calcium [Mass/Vol] 9.2 mg/dL Normal 8.6 - 10. 4 mg/dL [facility].; [facility], [facility]. Chloride [Moles/Vol] 102 mmol/L Normal 98 - 11 0 mmol/L [facility].; [facility]. Cholesterol [Mass/Vol] 193 mg/dL Normal 125 - 200 mg/dL [facility].; [facility]. Cholesterol in HDL [Mass/Vol] 61 mg/dL Normal [facility].; [facility]. Cholesterol in LDL [Mass/Vol] 109 mg/dL Normal [facility].; [employer] [facility]. Cholesterol non HDL [Mass/Vol] 132 mg/dL Normal [facility].; [facility]. Cholesterol.total/Chol esterol in HDL [Mass ratio] 3.2 {ratio} Normal [facility].; [employer] CO2 [Moles/Vol] 27 mmol/L Normal 20 - 31 mmol/L [facility].; [employer] [facility] [employer] [facility]. Creatinine [Mass/Vol] 0.68 mg/dL Normal 0.50 - 0.99 mg/dL [facility].; [employer] [facility], [facility]. GFR/1.73 sq M.predicted among blacks MDRD (S/P/Bld) [Vol rate/Area] 105 {ML/MIN/1.73M2} Normal [facility].; [employer] [facility], [facility]. GFR/1.73 sq M.predicted MDRD (S/P/Bld) [Vol rate/Area] 91 {ML/MIN/1.73M2} Normal [facility].; [employer] [facility], [facility]. Globulin (S) [Mass/Vol] 2.9 g/dL Normal 1.9 - 3.7 g/dL [facility].; [employer], [facility]. Glucose [Mass/Vol] 81 mg/dL Normal 65 - 99 mg/dL [facility] [employer] [facility].; [facility], [facility]. Potassium [Moles/Vol] 4.2 mmol/L Normal 3.5 - 5.3 mmol/L [facility].; [facility], [facility]. Protein [Mass/Vol] 6.8 g/dL Normal 6.1 - 8.1 g/dL [facility], [facility].; [employer] [facility], [facility]. Sodium [Moles/Vol] 138 mmol/L Normal 135 - 146 mmol/L [facility].; [facility], [facility]. Triglyceride [Mass/Vol] 117 mg/dL Normal [facility].; [facility], [facility]. Urea nitrogen [Mass/Vol] 17 mg/dL Normal 7 - 25 mg/dL [facility].; [facility], [facility]. Urea nitrogen/Creatinine [Mass ratio] 25.0 mg/mg Abnormal 6 - 22 [facility].; [employer] [facility], [facility]. Laboratory - Chemistry and C hemistry - challengeon 04-24-2016 25-hydroxyvitamin D3 [Mass/Vol] 31 ng/mL Normal 30 - 100 ng/mL [facility].; [employer] [facility], [facility]. Calcium [Mass/Vol] 9.5 mg/dL Normal 8.6 - 10. 4 mg/dL [facility].; [employer] [facility], [facility]. Chloride [Moles/Vol] 105 mmol/L Normal 98 - 11 0 mmol/L [facility].; [employer] [facility], [facility]. CO2 [Moles/Vol] 15 mmol/L Abnormal 19 - 30 mmol/L [facility].; [employer] [facility], [facility]. Creatinine [Mass/Vol] 0.65 mg/dL Normal 0.50 - 0.99 mg/dL [facility], [facility].; [facility], [facility]. GFR/1.73 sq M.predicted among blacks MDRD (S/P/Bld) [Vol rate/Area] 107 {ML/MIN/1.73M2} Normal [facility], [facility].; [facility], [facility]. GFR/1.73 sq M.predicted MDRD (S/P/Bld) [Vol rate/Area] 93 {ML/MIN/1.73M2} Normal [facility] [employer] [facility]. Glucose [Mass/Vol] 81 mg/dL Normal 65 - 99 mg/dL [facility].; [facility]. Potassium [Moles/Vol] 4.7 mmol/L Normal 3.5 - 5.3 mmol/L [facility].; [facility], [facility] Sodium [Moles/Vol] 138 mmol/L Normal 135 - 146 mmol/L [facility].; [facility] Urea nitrogen [Mass/Vol] 17 mg/dL Normal 7 - 25 mg/dL [facility].; [facility] Urea nitrogen/Creatinine [Mass ratio] 26.8 mg/mg Abnormal 6 - 22 [facility]; [facility] Laboratory - Chemistry and C hemistry - challengeon 10-03-2015 25-hydroxyvitamin D3 [Mass/Vol] 22 ng/mL Abnormal 30 - 100 ng/mL [facility].; [facility] Albumin [Mass/Vol] 3.9 g/dL Normal 3.6 - 5.1 g/dL [facility] [employer] [facility].; [facility], [facility]. Albumin/Globulin [Mass ratio] 1.2 {ratio} Normal 1.0 - 2.5 [facility].; [facility] [employer] [facility]. ALP [Catalytic activity/Vol] 69 U/L Normal 33 - 130 U/L [facility].; [facility]. ALT [Catalytic activity/Vol] 34 U/L Abnormal 6 - 29 U/L [facility].; [facility]. AST [Catalytic activity/Vol] 26 U/L Normal 10 - 35 U/L [facility].; [facility]. Bilirubin [Mass/Vol] 0.5 mg/dL Normal 0.2 - 1 .2 mg/dL [facility].; [facility], [facility]. Calcium [Mass/Vol] 9.5 mg/dL Normal 8.6 - 10. 4 mg/dL [facility].; [facility] Chloride [Moles/Vol] 102 mmol/L Normal 98 - 11 0 mmol/L [facility].; [facility], [facility]. Cholesterol [Mass/Vol] 221 mg/dL Abnormal 125 - 200 mg/dL [facility].; [facility], [facility]. Cholesterol in HDL [Mass/Vol] 60 mg/dL Normal [facility].; [facility], [facility]. Cholesterol in LDL [Mass/Vol] 131 mg/dL Abnormal [facility].; [facility], [facility]. Cholesterol non HDL [Mass/Vol] 161 mg/dL Abnormal [facility].; [facility], [facility]. Cholesterol.total/Chol esterol in HDL [Mass ratio] 3.7 {ratio} Normal [facility].; [facility], [facility] CO2 [Moles/Vol] 26 mmol/L Normal 19 - 30 mmol/L [facility], [facility].; [employer] [facility], [facility]. Creatinine [Mass/Vol] 0.73 mg/dL Normal 0.50 - 0.99 mg/dL [facility], [facility].; [facility], [facility]. GFR/1.73 sq M.predicted among blacks MDRD (S/P/Bld) [Vol rate/Area] 99 {ML/MIN/1.73M2} Normal [facility], [facility].; [facility], [facility]. GFR/1.73 sq M.predicted MDRD (S/P/Bld) [Vol rate/Area] 86 {ML/MIN/1.73M2} Normal [facility], [facility].; [facility], [facility]. Globulin (S) [Mass/Vol] 3.2 g/dL Normal 1.9 - 3.7 g/dL [facility], [facility].; [facility], [facility]. Glucose [Mass/Vol] 84 mg/dL Normal 65 - 99 mg/dL [facility], [facility].; [facility], [facility]. Potassium [Moles/Vol] 4.2 mmol/L Normal 3.5 - 5.3 mmol/L [facility], [facility].; [facility], [facility]. Protein [Mass/Vol] 7.1 g/dL Normal 6.1 - 8.1 g/dL [facility], [facility].; [facility], [facility]. Sodium [Moles/Vol] 139 mmol/L Normal 135 - 146 mmol/L [facility].; [facility] Triglyceride [Mass/Vol] 150 mg/dL Abnormal [facility].; [facility]. TSH Qn 2.46 m[IU]/L Normal 0.40 - 4.50 {mIU/L} [facility].; [facility] Urea nitrogen [Mass/Vol] 17 mg/dL Normal 7 - 25 mg/dL [facility] [employer] [facility].; [employer] [facility], [facility] Urea nitrogen/Creatinine [Mass ratio] 23.7 mg/mg Abnormal 6 - 22 [facility]; [facility], [facility] Laboratory - Chemistry and C hemistry - challengeon 04-04-2015 Calcium [Mass/Vol] 9.1 mg/dL Normal 8.6 - 10. 4 mg/dL [facility].; [employer] [facility] [employer] [facility] Chloride [Moles/Vol] 104 mmol/L Normal 98 - 11 0 mmol/L [facility].; [employer], [facility]. CO2 [Moles/Vol] 21 mmol/L Normal 19 - 30 mmol/L [facility].; [employer] [facility], [facility]. Creatinine [Mass/Vol] 0.68 mg/dL Normal 0.50 - 0.99 mg/dL [facility].; [facility], [facility]. GFR/1.73 sq M.predicted among blacks MDRD (S/P/Bld) [Vol rate/Area] 106 {ML/MIN/1.73M2} Normal [facility].; [employer] [facility], [facility]. GFR/1.73 sq M.predicted MDRD (S/P/Bld) [Vol rate/Area] 92 {ML/MIN/1.73M2} Normal [facility] [employer] [facility].; [employer] [facility], [facility]. Glucose [Mass/Vol] 82 mg/dL Normal 65 - 99 mg/dL [facility], [facility].; [employer] [facility], [facility]. Potassium [Moles/Vol] 4.5 mmol/L Normal 3.5 - 5.3 mmol/L [facility] [employer] [facility].; [employer] [facility] Sodium [Moles/Vol] 138 mmol/L Normal 135 - 146 mmol/L [facility].; [facility], [facility]. Urea nitrogen [Mass/Vol] 16 mg/dL Normal 7 - 25 mg/dL [facility] [employer] [facility].; [facility], [facility]. Urea nitrogen/Creatinine [Mass ratio] 24.0 mg/mg Abnormal 6 - 22 [facility] [employer] [facility].; [facility], [facility]. Laboratory - Chemistry and C hemistry - challengeon 10-04-2014 Albumin [Mass/Vol] 4.0 g/dL Normal 3.6 - 5.1 g/dL [facility] [employer] [facility].; [facility], [facility]. Albumin/Globulin [Mass ratio] 1.3 {ratio} Normal 1.0 - 2.5 [facility] [employer] [facility].; [employer] [facility], [facility]. ALP [Catalytic activity/Vol] 70 U/L Normal 33 - 130 U/L [facility] [employer] [facility].; [facility], [facility]. ALT [Catalytic activity/Vol] 27 U/L Normal 6 - 29 U/L [facility] [employer] [facility].; [employer] [facility], [facility]. AST [Catalytic activity/Vol] 24 U/L Normal 10 - 35 U/L [facility] [employer] [facility].; [employer] [facility], [facility]. Bilirubin [Mass/Vol] 0.4 mg/dL Normal 0.2 - 1 .2 mg/dL [facility] [employer] [facility].; [employer] [facility], [facility]. Calcium [Mass/Vol] 9.3 mg/dL Normal 8.6 - 10. 4 mg/dL [facility] [employer] [facility].; [employer] [facility], [facility]. Chloride [Moles/Vol] 103 mmol/L Normal 98 - 11 0 mmol/L [facility] [employer] [facility] [facility] [employer] [facility], [facility]. Cholesterol [Mass/Vol] 239 mg/dL Abnormal 125 - 200 mg/dL [facility] [employer] [facility].; [employer] [facility], [facility]. Cholesterol in HDL [Mass/Vol] 63 mg/dL Normal [facility].; [employer] [facility], [facility]. Cholesterol in LDL [Mass/Vol] 148 mg/dL Abnormal [facility].; [employer] [facility], [place]. Cholesterol non HDL [Mass/Vol] 177 mg/dL Abnormal [facility].; [facility], [facility]. Cholesterol.total/Chol esterol in HDL [Mass ratio] 3.8 {ratio} Normal [facility].; [facility], [facility]. CO2 [Moles/Vol] 26 mmol/L Normal 19 - 30 mmol/L [facility], [facility].; [facility], [facility]. Creatinine [Mass/Vol] 0.69 mg/dL Normal 0.50 - 0.99 mg/dL [facility], [facility].; [facility], [facility]. GFR/1.73 sq M.predicted among blacks MDRD (S/P/Bld) [Vol rate/Area] 106 {ML/MIN/1.73M2} Normal [facility], [facility].; [facility], [facility]. GFR/1.73 sq M.predicted MDRD (S/P/Bld) [Vol rate/Area] 91 {ML/MIN/1.73M2} Normal [facility], [facility].; [facility], [facility]. Globulin (S) [Mass/Vol] 3.1 g/dL Normal 1.9 - 3.7 g/dL [facility], [facility].; [facility], [facility]. Glucose [Mass/Vol] 79 mg/dL Normal 65 - 99 mg/dL [facility], [facility].; [facility], [facility]. Potassium [Moles/Vol] 4.3 mmol/L Normal 3.5 - 5.3 mmol/L [facility], [facility].; [facility], [facility]. Protein [Mass/Vol] 7.1 g/dL Normal 6.1 - 8.1 g/dL [facility], [facility].; [facility], [facility]. Sodium [Moles/Vol] 138 mmol/L Normal 135 - 146 mmol/L [facility], [facility].; [facility], [facility]. Triglyceride [Mass/Vol] 141 mg/dL Normal [facility], [facility].; [facility], [facility]. Urea nitrogen [Mass/Vol] 16 mg/dL Normal 7 - 25 mg/dL [facility], [facility].; [facility], [facility]. Urea nitrogen/Creatinine [Mass ratio] 22.5 mg/mg Abnormal 6 - 22 [facility].; [facility] - Cytologyon 07-0 Microscopic observation Cyto stain Nom (Cvx) Normal [facility], [facility].; [facility], [facility] Vital Signs Date Time Vital Sign Value Performing Clinician Facility 09-05-2025 10:06-0500 Body height 154.94 cm Shu Chow PA Work Phone: 9(814)958-828936 [place] [address] 09-05-2025 10:06-0500 Body mass index (BMI) [Ratio] 35 kg/m2 Shu Chow PA Work Phone: 4(320)716-847569 [place] [address] 09-05-2025 10:06-0500 Body temperature 97.3 [degF] Shu Chow PA Work Phone: 1(397)829-673169 [place] [address] 09-05-2025 10:06-0500 Body weight 84.14 kg Shu Chow PA Work Phone: 7(512)280-711269 [place] [address] 09-05-2025 10:06-0500 Diastolic blood pressure 85 mm[Hg] Shu Chow PA Work Phone: 8(132)284-578969 [place] [address] 09-05-2025 10:06-0500 Heart rate 67 /min Shu Chow PA Work Phone: 1(426)827-158869 [place] [address] 09-05-2025 10:06-0500 Respiratory rate 18 /min Shu Chow PA Work Phone: 2(132)446-204269 [place] [address] 09-05-2025 10:06-0500 SaO2% (BldA) [Mass fraction] 96 % Shu Chow PA Work Phone: 0(223)572-773169 [place] [address] 09-05-2025 10:06-0500 Systolic blood pressure 148 mm[Hg] Shu Chow PA Work Phone: 3(578)281-507069 [place] [address] 08-22-2025 11:50-0400 Body temperature 97.2 [degF] Shu Chow PA Work Phone: 7(864)357-604569 [place] [address] 08-22-2025 11:50-0400 Diastolic blood pressure 81 mm[Hg] Shu Chow PA Work Phone: 9(080)901-735136 [place] [address] 08-22-2025 11:50-0400 Heart rate 73 /min Shu Chow PA Work Phone: [facility] 08-22-2025 11:50-0400 Respiratory rate 16 /min Shu Chow PA Work Phone: [facility] 08-22-2025 11:50-0400 SaO2% (BldA) [Mass fraction] 96 % Shu Chow PA Work Phone: [facility] 08-22-2025 11:50-0400 Systolic blood pressure 150 mm[Hg] Shu Chow PA Work Phone: [facility] 08-22-2025 10:06-0400 Body mass index (BMI) [Ratio] 34.8 kg/m2 Shu Chow PA Work Phone: 7(713)252-327636 [place] [address] 08-22-2025 10:06-0400 Body temperature 97.7 [degF] Shu Chow PA Work Phone: 3(124)800-334936 [place] [address] 08-22-2025 10:06-0400 Body weight 83.68 kg Shu Chow PA Work Phone: 3(504)181-674436 [place] [address] 08-22-2025 10:06-0400 Diastolic blood pressure 81 mm[Hg] Shu Chow PA Work Phone: [facility] 08-22-2025 10:06-0400 Heart rate 76 /min Shu Chow PA Work Phone: [facility] 08-22-2025 10:06-0400 Respiratory rate 18 /min Shu Chow PA Work Phone: [facility] 08-22-2025 10:06-0400 SaO2% (BldA) [Mass fraction] 95 % Shu Chow PA Work Phone: [facility] 08-22-2025 10:06-0400 Systolic blood pressure 137 mm[Hg] Shu Chow PA Work Phone: [facility] 08-08-2025 10:06-0400 Body height 154.94 cm Shu Chow PA Work Phone: [facility] 08-08-2025 10:06-0400 Body mass index (BMI) [Ratio] 34.4 kg/m2 Shu Chow PA Work Phone: 1(116)333-261936 [place] [address] 08-08-2025 10:06-0400 Body temperature 97.7 [degF] Shu Chow PA Work Phone: 9(957)178-560636 [place] [address] 08-08-2025 10:06-0400 Body weight 82.72 kg Shu Chow PA Work Phone: 3(428)476-028936 [place] [address] 08-08-2025 10:06-0400 Diastolic blood pressure 83 mm[Hg] Shu Chow PA Work Phone: 5(955)127-266336 [place] [address] 08-08-2025 10:06-0400 Heart rate 74 /min Shu Chow PA Work Phone: 5(533)089-494036 [place] [address] 08-08-2025 10:06-0400 Respiratory rate 18 /min Shu Chow PA Work Phone: 3(036)176-624536 [place] [address] 08-08-2025 10:06-0400 SaO2% (BldA) [Mass fraction] 95 % Shu Chow PA Work Phone: 3(970)116-074436 [place] [address] 08-08-2025 10:06-0400 Systolic blood pressure 144 mm[Hg] Shu Chow PA Work Phone: 7(911)745-707336 [place] [address] 07-26-2025 13:30-0400 Body height 154.94 cm Shu Chow PA Work Phone: 1(612)739-270336 [place] [address] 07-26-2025 13:30-0400 Body mass index (BMI) [Ratio] 34.9 kg/m2 Shu Chow PA Work Phone: 7(092)509-412236 [place] [address] 07-26-2025 13:30-0400 Body weight 83.91 kg Shu Chow PA Work Phone: 5(196)160-964836 [place] [address] 07-26-2025 13:30-0400 Diastolic blood pressure 91 mm[Hg] Shu Chow PA Work Phone: 8(279)992-794736 [place] [address] 07-26-2025 13:30-0400 Heart rate 78 /min Shu Chow PA Work Phone: [facility] 07-26-2025 13:30-0400 Respiratory rate 16 /min Shu Chow PA Work Phone: [facility] 07-26-2025 13:30-0400 Systolic blood pressure 149 mm[Hg] Shu Chow PA Work Phone: [facility] 07-25-2025 15:06-0400 Body temperature 96.9 [degF] Shu Chow PA Work Phone: [facility] 07-25-2025 15:06-0400 Diastolic blood pressure 87 mm[Hg] Shu Chow PA Work Phone: 3(732)678-457036 [place] [address] 07-25-2025 15:06-0400 Heart rate 82 /min Shu Chow PA Work Phone: 1(302)438-720836 [place] [address] 07-25-2025 15:06-0400 Respiratory rate 16 /min Shu Chow PA Work Phone: 7(321)954-120536 [place] [address] 07-25-2025 15:06-0400 SaO2% (BldA) [Mass fraction] 97 % Shu Chow PA Work Phone: [facility] 07-25-2025 15:06-0400 Systolic blood pressure 168 mm[Hg] Shu Chow PA Work Phone: [facility] 07-25-2025 10:41-0400 Body mass index (BMI) [Ratio] 34 kg/m2 Shu Chow PA Work Phone: [facility] 07-25-2025 10:41-0400 Body temperature 97.7 [degF] Shu Chow PA Work Phone: [facility] 07-25-2025 10:41-0400 Body weight 81.76 kg Shu Chow PA Work Phone: [facility] 07-25-2025 10:41-0400 Diastolic blood pressure 85 mm[Hg] Shu Chow PA Work Phone: [facility] 07-25-2025 10:41-0400 Heart rate 70 /min Shu Chow PA Work Phone: [facility] 07-25-2025 10:41-0400 Respiratory rate 16 /min Shu Chow PA Work Phone: [facility] 07-25-2025 10:41-0400 SaO2% (BldA) [Mass fraction] 97 % Shu Chow PA Work Phone: [facility] 07-25-2025 10:41-0400 Systolic blood pressure 150 mm[Hg] Shu Chow PA Work Phone: [facility] 07-11-2025 09:46-0400 Body height 154.94 cm Shu Chow PA Work Phone: [facility] 07-11-2025 09:46-0400 Body mass index (BMI) [Ratio] 33.9 kg/m2 Shu Chow PA Work Phone: [facility] 07-11-2025 09:46-0400 Body temperature 98.2 [degF] Shu Chow PA Work Phone: [facility] 07-11-2025 09:46-0400 Body weight 81.41 kg Shu Chow PA Work Phone: [facility] 07-11-2025 09:46-0400 Diastolic blood pressure 81 mm[Hg] Shu Chow PA Work Phone: [facility] 07-11-2025 09:46-0400 Heart rate 78 /min Shu Chow PA Work Phone: [facility] 07-11-2025 09:46-0400 Respiratory rate 16 /min Shu Chow PA Work Phone: [facility] 07-11-2025 09:46-0400 SaO2% (BldA) [Mass fraction] 95 % Shu Chow PA Work Phone: [facility] 07-11-2025 09:46-0400 Systolic blood pressure 125 mm[Hg] Shu Chow PA Work Phone: [facility] 06-29-2025 14:29-0400 Body temperature 96.4 [degF] Shu Chow PA Work Phone: [facility] 06-29-2025 14:29-0400 Diastolic blood pressure 70 mm[Hg] Shu Chow PA Work Phone: [facility] 06-29-2025 14:29-0400 Heart rate 76 /min Shu Chow PA Work Phone: [facility] 06-29-2025 14:29-0400 Respiratory rate 16 /min Shu Chow PA Work Phone: [facility] 06-29-2025 14:29-0400 SaO2% (BldA) [Mass fraction] 100 % Shu Chow PA Work Phone: [facility] 06-29-2025 14:29-0400 Systolic blood pressure 140 mm[Hg] Shu Chow PA Work Phone: [facility] 06-27-2025 09:43-0400 Body height 154.94 cm Shu Chow PA Work Phone: [facility] 06-27-2025 09:43-0400 Body mass index (BMI) [Ratio] 33.7 kg/m2 Shu Chow PA Work Phone: [facility] 06-27-2025 09:43-0400 Body temperature 98.2 [degF] Shu Chow PA Work Phone: [facility] 06-27-2025 09:43-0400 Body weight 80.99 kg Shu Chow PA Work Phone: [facility] 06-27-2025 09:43-0400 Diastolic blood pressure 81 mm[Hg] Shu Chow PA Work Phone: [facility] 06-27-2025 09:43-0400 Heart rate 77 /min Shu Chow PA Work Phone: [facility] 06-27-2025 09:43-0400 Respiratory rate 18 /min Shu Chow PA Work Phone: [facility] 06-27-2025 09:43-0400 SaO2% (BldA) [Mass fraction] 98 % Shu Chow PA Work Phone: [facility] 06-27-2025 09:43-0400 Systolic blood pressure 137 mm[Hg] Shu Chow PA Work Phone: [facility] 06-16-2025 08:33-0400 Body temperature 96.4 [degF] Shu Chow PA Work Phone: 2(184)687-460336 [place] [address] 06-16-2025 08:33-0400 Diastolic blood pressure 75 mm[Hg] Shu Chow PA Work Phone: 1(960)586-871436 [place] [address] 06-16-2025 08:33-0400 Heart rate 84 /min Shu Chow PA Work Phone: 7(201)074-638936 [place] [address] 06-16-2025 08:33-0400 Respiratory rate 16 /min Shu Chow PA Work Phone: 5(380)682-751236 [place] [address] 06-16-2025 08:33-0400 SaO2% (BldA) [Mass fraction] 100 % Shu Chow PA Work Phone: 4(411)809-421336 [place] [address] 06-16-2025 08:33-0400 Systolic blood pressure 153 mm[Hg] Shu Chow PA Work Phone: [facility] 06-13-2025 11:30-0400 Inhaled oxygen flow rate 3 L/min Shu Chow PA Work Phone: [facility] 06-13-2025 09:37-0400 Body height 154.94 cm Shu Chow PA Work Phone: [facility] 06-13-2025 09:37-0400 Body mass index (BMI) [Ratio] 34.2 kg/m2 Shu Chow PA Work Phone: 7(930)471-934836 [place] [address] 06-13-2025 09:37-0400 Body temperature 96.9 [degF] Shu Chow PA Work Phone: 0(140)861-596236 [place] [address] 06-13-2025 09:37-0400 Body weight 82.1 kg Shu Chow PA Work Phone: 8(871)872-724536 [place] [address] 06-13-2025 09:37-0400 Diastolic blood pressure 81 mm[Hg] Shu Chow PA Work Phone: 9(395)097-344053 [address] 06-13-2025 09:37-0400 Heart rate 72 /min Shu Chow PA Work Phone: 3(779)941-655569 [place] [address] 06-13-2025 09:37-0400 Respiratory rate 16 /min Shu Chow PA Work Phone: 7(499)464-927353 [address] 06-13-2025 09:37-0400 SaO2% (BldA) [Mass fraction] 99 % Shu Chow PA Work Phone: 2(153)868-053936 [place] [address] 06-13-2025 09:37-0400 Systolic blood pressure 125 mm[Hg] Shu Chow PA Work Phone: 4(908)772-368769 [place] [address] 06-01-2025 13:35-0400 Body temperature 96.7 [degF] Shu Chow PA Work Phone: 6(092)567-839653 [address] 06-01-2025 13:35-0400 Diastolic blood pressure 58 mm[Hg] Shu Chow PA Work Phone: 4(120)340-257453 [address] 06-01-2025 13:35-0400 Heart rate 64 /min Shu Chow PA Work Phone: 1(660)701-320736 [place] [address] 06-01-2025 13:35-0400 Respiratory rate 16 /min Shu Chow PA Work Phone: 1(140)703-642853 [address] 06-01-2025 13:35-0400 SaO2% (BldA) [Mass fraction] 99 % Shu Chow PA Work Phone: 4(507)441-453836 [place] [address] 06-01-2025 13:35-0400 Systolic blood pressure 118 mm[Hg] Shu Chow PA Work Phone: [facility] 05-30-2025 08:41-0400 Body height 154.94 cm Shu Chow PA Work Phone: [facility] 05-30-2025 08:41-0400 Body mass index (BMI) [Ratio] 33.6 kg/m2 Shu Chow PA Work Phone: [facility] 05-30-2025 08:41-0400 Body temperature 98.2 [degF] Shu Chow PA Work Phone: [facility] 05-30-2025 08:41-0400 Body weight 80.82 kg Shu Chow PA Work Phone: [facility] 05-30-2025 08:41-0400 Diastolic blood pressure 81 mm[Hg] Shu Chow PA Work Phone: [facility] 05-30-2025 08:41-0400 Heart rate 72 /min Shu Chow PA Work Phone: [facility] 05-30-2025 08:41-0400 Respiratory rate 18 /min Shu Chow PA Work Phone: [facility] 05-30-2025 08:41-0400 SaO2% (BldA) [Mass fraction] 98 % Shu Chow PA Work Phone: [facility] 05-30-2025 08:41-0400 Systolic blood pressure 127 mm[Hg] Shu Chow PA Work Phone: [facility] 05-22-2025 09:47-0400 Body weight 81.1 kg Shu J Chow PA-C Work Phone: [facility] [employer] [facility], [place]. 05-22-2025 09:47-0400 Diastolic blood pressure 80 mm[Hg] Shu J Chow PA-C Work Phone: [facility] [employer] [facility]. Comment on above: Patient Position: Sitting; Cuff Location : Left Arm; Cuff Size: Standard 05-22-2025 09:47-0400 Heart rate 87 /min Shu J Chow PA-C Work Phone: [facility] Comment on above: Pattern: Regular 05-22-2025 09:47-0400 Systolic blood pressure 115 mm[Hg] Shu Lyndon Chow PA-C Work Phone: [facility]. Comment on above: Patient Position: Sitting; Cuff Location : Left Arm; Cuff Size: Standard 05-15-2025 16:44-0400 Body temperature 98.9 [degF] Shu Chow PA Work Phone: [facility] 05-15-2025 16:44-0400 Diastolic blood pressure 81 mm[Hg] Shu Chow PA Work Phone: [facility] 05-15-2025 16:44-0400 Heart rate 98 /min Shu Chow PA Work Phone: [facility] 05-15-2025 16:44-0400 Respiratory rate 16 /min Shu Chow PA Work Phone: [facility] 05-15-2025 16:44-0400 SaO2% (BldA) [Mass fraction] 97 % Shu Chow PA Work Phone: [facility] 05-15-2025 16:44-0400 Systolic blood pressure 131 mm[Hg] Shu Chow PA Work Phone: [facility] 05-15-2025 14:42-0400 Body temperature 98.9 [degF] Shu Chow PA Work Phone: [facility] 05-15-2025 14:42-0400 Diastolic blood pressure 81 mm[Hg] Shu Chow PA Work Phone: [facility] 05-15-2025 14:42-0400 Heart rate 98 /min Shu Chow PA Work Phone: [facility] 05-15-2025 14:42-0400 Respiratory rate 16 /min Shu Chow PA Work Phone: 6(593)185-329236 [place] [address] 05-15-2025 14:42-0400 SaO2% (BldA) [Mass fraction] 97 % Shu Chow PA Work Phone: [facility] 05-15-2025 14:42-0400 Systolic blood pressure 131 mm[Hg] Shu Chow PA Work Phone: 3(632)427-319336 [place] [address] 05-14-2025 12:40-0400 Body height 154.94 cm Shu Chow PA Work Phone: 0(621)754-990736 [place] [address] 05-14-2025 12:40-0400 Body weight 81.5 kg Shu Chow PA Work Phone: 7(437)640-132336 [place] [address] 05-13-2025 18:50-0400 Body mass index (BMI) [Ratio] 33.9 kg/m2 Shu Chow PA Work Phone: 3(549)328-747036 [place] [address] 05-13-2025 18:00-0400 Diastolic blood pressure 64 mm[Hg] Shu Chow PA Work Phone: 6(838)147-510336 [place] [address] 05-13-2025 18:00-0400 Heart rate 89 /min Shu Chow PA Work Phone: 2(305)125-109336 [place] [address] 05-13-2025 18:00-0400 Respiratory rate 14 /min Shu Chow PA Work Phone: [facility] 05-13-2025 18:00-0400 SaO2% (BldA) [Mass fraction] 98 % Shu Chow PA Work Phone: [facility] 05-13-2025 18:00-0400 Systolic blood pressure 114 mm[Hg] Shu Chow PA Work Phone: 9(277)525-496036 [place] [address] 05-13-2025 17:13-0400 Body temperature 98.7 [degF] Shu Chow PA Work Phone: 0(684)025-376836 [place] [address] 05-13-2025 12:27-0400 Body mass index (BMI) [Ratio] 32.5 kg/m2 Hsu Chow PA Work Phone: [facility] 05-13-2025 12:27-0400 Body weight 80.7 kg Shu Chow PA Work Phone: [facility] 05-13-2025 12:11-0400 Body height 157.48 cm Shu Chow PA Work Phone: [facility] 05-02-2025 13:55-0400 Diastolic blood pressure 65 mm[Hg] Shu Chow PA Work Phone: 2(307)968-951336 [place] [address] 05-02-2025 13:55-0400 Heart rate 72 /min Shu Chow PA Work Phone: 2(626)913-109436 [place] [address] 05-02-2025 13:55-0400 Systolic blood pressure 125 mm[Hg] Shu Chow PA Work Phone: 4(421)749-465636 [place] [address] 05-02-2025 08:03-0400 Body height 157.48 cm Shu Chow PA Work Phone: 2(277)968-826436 [place] [address] 05-02-2025 08:03-0400 Body mass index (BMI) [Ratio] 33 kg/m2 Shu Chow PA Work Phone: 0(624)059-497636 [place] [address] 05-02-2025 08:03-0400 Body temperature 97.7 [degF] Shu Chow PA Work Phone: 4(442)941-383136 [place] [address] 05-02-2025 08:03-0400 Body weight 81.84 kg Shu Chow PA Work Phone: [facility] 05-02-2025 08:03-0400 Diastolic blood pressure 76 mm[Hg] Shu Chow PA Work Phone: [facility] 05-02-2025 08:03-0400 Heart rate 77 /min Shu Chow PA Work Phone: [facility] 05-02-2025 08:03-0400 Respiratory rate 18 /min Shu Chow PA Work Phone: [facility] 05-02-2025 08:03-0400 SaO2% (BldA) [Mass fraction] 97 % Shu Chow PA Work Phone: [facility] 05-02-2025 08:03-0400 Systolic blood pressure 118 mm[Hg] Shu Chow PA Work Phone: [facility] 04-18-2025 09:29-0400 Body height 157.48 cm Shu Chow PA Work Phone: 5(160)240-457136 [place] [address] 04-18-2025 09:29-0400 Body mass index (BMI) [Ratio] 33.8 kg/m2 Shu Chow PA Work Phone: 3(213)254-714536 [place] [address] 04-18-2025 09:29-0400 Body temperature 98.5 [degF] Shu Chow PA Work Phone: 2(042)367-299936 [place] [address] 04-18-2025 09:29-0400 Body weight 83.91 kg Shu Chow PA Work Phone: 7(847)907-297236 [place] [address] 04-18-2025 09:29-0400 Diastolic blood pressure 83 mm[Hg] Shu Chow PA Work Phone: 4(869)522-266436 [place] [address] 04-18-2025 09:29-0400 Heart rate 69 /min Shu Chow PA Work Phone: 2(904)583-257336 [place] [address] 04-18-2025 09:29-0400 Respiratory rate 16 /min Shu Chow PA Work Phone: 2(026)215-791036 [place] [address] 04-18-2025 09:29-0400 SaO2% (BldA) [Mass fraction] 96 % Shu Chow PA Work Phone: 5(231)431-725636 [place] [address] 04-18-2025 09:29-0400 Systolic blood pressure 129 mm[Hg] Shu Chow PA Work Phone: [facility] 04-04-2025 08:16-0400 Body height 157.48 cm Shu Chow PA Work Phone: [facility] 04-04-2025 08:16-0400 Body mass index (BMI) [Ratio] 34.2 kg/m2 Shu Chow PA Work Phone: [facility] 04-04-2025 08:16-0400 Body temperature 98.2 [degF] Shu Chow PA Work Phone: [facility] 04-04-2025 08:16-0400 Body weight 84.93 kg Shu Chow PA Work Phone: [facility] 04-04-2025 08:16-0400 Diastolic blood pressure 83 mm[Hg] Shu Chow PA Work Phone: [facility] 04-04-2025 08:16-0400 Heart rate 64 /min Shu Chow PA Work Phone: [facility] 04-04-2025 08:16-0400 Respiratory rate 16 /min Shu Chow PA Work Phone: [facility] 04-04-2025 08:16-0400 SaO2% (BldA) [Mass fraction] 97 % Shu Chow PA Work Phone: [facility] 04-04-2025 08:16-0400 Systolic blood pressure 133 mm[Hg] Shu Chow PA Work Phone: [facility] 03-24-2025 08:48-0400 Body height 152.4 cm Shu J Chow PA-C Work Phone: [email or web address]; [employer] [facility]. 03-24-2025 08:48-0400 Body mass index (BMI) [Ratio] 37.11 kg/m2 Shu J Chow PA-C Work Phone: [email or web address]; [employer] [facility]. 03-24-2025 08:48-0400 Body surface area Derived from formula 1.83 m2 Shu J Chow PA-C Work Phone: [email or web address]; [employer] 03-24-2025 08:48-0400 Body weight 86.18 kg Shu J Chow PA-C Work Phone: [facility] 03-24-2025 08:48-0400 Diastolic blood pressure 82 mm[Hg] Shu Haney Chow PA-C Work Phone: [facility] [employer]. Comment on above: Patient Position: Sitting; Cuff Location : Left Arm; Cuff Size: Standard 03-24-2025 08:48-0400 Heart rate 72 /min Shu Haney Chow PA-C Work Phone: [facility] [employer]. Comment on above: Pattern: Regular 03-24-2025 08:48-0400 Systolic blood pressure 135 mm[Hg] Shu Haney Chow PA-C Work Phone: [facility] [employer]. Comment on above: Patient Position: Sitting; Cuff Location : Left Arm; Cuff Size: Standard 03-21-2025 08:05-0400 Body height 157.48 cm Shu Chow PA Work Phone: [facility] 03-21-2025 08:05-0400 Body mass index (BMI) [Ratio] 34.7 kg/m2 Shu Chow PA Work Phone: [facility] 03-21-2025 08:05-0400 Body temperature 98.2 [degF] Shu Chow PA Work Phone: [facility] 03-21-2025 08:05-0400 Body weight 86.18 kg Shu Chow PA Work Phone: [facility] 03-21-2025 08:05-0400 Diastolic blood pressure 88 mm[Hg] Shu Chow PA Work Phone: [facility] 03-21-2025 08:05-0400 Heart rate 60 /min Shu Chow PA Work Phone: [facility] 03-21-2025 08:05-0400 Respiratory rate 16 /min Shu Chow PA Work Phone: [facility] 03-21-2025 08:05-0400 SaO2% (BldA) [Mass fraction] 98 % Shu Chow PA Work Phone: [facility] 03-21-2025 08:05-0400 Systolic blood pressure 158 mm[Hg] Shu Chow PA Work Phone: 0(510)016-640753 [address] 03-20-2025 13:42-0400 Body temperature 98.5 [degF] Shu Chow PA Work Phone: 1(865)567-916936 [place] [address] 03-20-2025 13:42-0400 Diastolic blood pressure 61 mm[Hg] Shu Chow PA Work Phone: 5(280)654-896453 [address] 03-20-2025 13:42-0400 Heart rate 55 /min Shu Chow PA Work Phone: 1(149)932-384153 [address] 03-20-2025 13:42-0400 Respiratory rate 16 /min Shu Chow PA Work Phone: 2(669)469-291536 [place] [address] 03-20-2025 13:42-0400 SaO2% (BldA) [Mass fraction] 99 % Shu Chow PA Work Phone: 5(487)924-000936 [place] [address] 03-20-2025 13:42-0400 Systolic blood pressure 129 mm[Hg] Shu Chow PA Work Phone: 0(036)758-771636 [place] [address] 03-20-2025 12:08-0400 Body height 157.48 cm Shu Chow PA Work Phone: 8(523)553-868436 [place] [address] 03-20-2025 11:38-0400 Body mass index (BMI) [Ratio] 34.2 kg/m2 Shu Chow PA Work Phone: 1(361)033-069636 [place] [address] 03-20-2025 11:38-0400 Body weight 85 kg Shu Chow PA Work Phone: 1(738)022-813436 [place] [address] 03-15-2025 10:10-0400 Body height 157.48 cm Shu Chow PA Work Phone: 1(736)732-478036 [place] [address] 03-15-2025 10:10-0400 Body mass index (BMI) [Ratio] 34.2 kg/m2 Shu Chow PA Work Phone: [facility] 03-15-2025 10:10-0400 Body temperature 97.6 [degF] Shu Chow PA Work Phone: [facility] 03-15-2025 10:10-0400 Body weight 84.9 kg Shu Chow PA Work Phone: 9(057)565-809236 [place] [address] 03-15-2025 10:10-0400 Diastolic blood pressure 84 mm[Hg] Shu Chow PA Work Phone: 3(233)732-271936 [place] [address] 03-15-2025 10:10-0400 Heart rate 61 /min Shu Chow PA Work Phone: 7(478)795-959736 [place] [address] 03-15-2025 10:10-0400 Respiratory rate 18 /min Shu Chow PA Work Phone: 4(846)864-085436 [place] [address] 03-15-2025 10:10-0400 SaO2% (BldA) [Mass fraction] 96 % Shu Chow PA Work Phone: 9(209)964-112836 [place] [address] 03-15-2025 10:10-0400 Systolic blood pressure 148 mm[Hg] Shu Chow PA Work Phone: 2(476)902-597236 [place] [address] 03-15-2025 08:10-0400 Body height 157.48 cm Shu Chow PA Work Phone: 8(537)688-814536 [place] [address] 03-15-2025 08:10-0400 Body mass index (BMI) [Ratio] 34.2 kg/m2 Shu Chow PA Work Phone: 6(627)190-340336 [place] [address] 03-15-2025 08:10-0400 Body temperature 98.2 [degF] Shu Chow PA Work Phone: [facility] 03-15-2025 08:10-0400 Body weight 84.9 kg Shu Chow PA Work Phone: [facility] 03-15-2025 08:10-0400 Diastolic blood pressure 80 mm[Hg] Shu Chow PA Work Phone: [facility] 03-15-2025 08:10-0400 Heart rate 57 /min Shu Chow PA Work Phone: [facility] 03-15-2025 08:10-0400 Respiratory rate 16 /min Shu Chow PA Work Phone: [facility] 03-15-2025 08:10-0400 SaO2% (BldA) [Mass fraction] 98 % Shu Chow PA Work Phone: [facility] 03-15-2025 08:10-0400 Systolic blood pressure 151 mm[Hg] Shu Chow PA Work Phone: [facility] 03-09-2025 09:22-0400 Body mass index (BMI) [Ratio] 33.8 kg/m2 Shu Chow PA Work Phone: [facility] 03-09-2025 09:22-0400 Body temperature 97.3 [degF] Shu Chow PA Work Phone: [facility] 03-09-2025 09:22-0400 Body weight 83.97 kg Shu Chow PA Work Phone: [facility] 03-09-2025 09:22-0400 Diastolic blood pressure 85 mm[Hg] Shu Chow PA Work Phone: [facility] 03-09-2025 09:22-0400 Heart rate 63 /min Shu Chow PA Work Phone: [facility] 03-09-2025 09:22-0400 Respiratory rate 16 /min Shu Chow PA Work Phone: [facility] 03-09-2025 09:22-0400 SaO2% (BldA) [Mass fraction] 100 % Shu Chow PA Work Phone: [facility] 03-09-2025 09:22-0400 Systolic blood pressure 157 mm[Hg] Shu Chow PA Work Phone: [facility] 02-21-2025 13:21-0400 Body height 154.9 cm Sachi Chaka MBBS Work Phone: [facility] 02-21-2025 13:21-0400 Body mass index (BMI) [Ratio] 35.64 kg/m2 Sachi Chaka MBBS Work Phone: [facility] 02-21-2025 13:21-0400 Body temperature 98.01 [degF] Sachi Chaka MBBS Work Phone: [facility] 02-21-2025 13:21-0400 Body weight 85.55 kg Sachi Chaka MBBS Work Phone: [facility] 02-21-2025 13:21-0400 Diastolic blood pressure 74 mm[Hg] Sachi Chaka MBBS Work Phone: [facility] 02-21-2025 13:21-0400 Heart rate 75 /min Sachi Chaka MBBS Work Phone: [facility] 02-21-2025 13:21-0400 Respiratory rate 18 /min Sachi Chaka MBBS Work Phone: [facility] 02-21-2025 13:21-0400 SaO2% (BldA) [Mass fraction] 97 % Sachi Chaka MBBS Work Phone: [facility] Comment on above: room air 02-21-2025 13:21-0400 Systolic blood pressure 166 mm[Hg] Sachi Chaka MBBS Work Phone: [facility] 02-01-2025 14:110400 Body height 152.4 cm Amy HERNANDEZ [facility], [facility] 02-01-2025 14:11-0400 Body mass index (BMI) [Ratio] 36.72 kg/m2 Amy Paulley [facility].; [facility]. 02-01-2025 14:110400 Body surface area Derived from formula 1.82 m2 Amy Soriano [facility].; [facility]. 02-01-2025 14:110400 Body weight 85.28 kg Amy Soriano [facility].; [facility]. 02-01-2025 14:110400 Diastolic blood pressure 83 mm[Hg] Amy Soriano [facility] [employer] [facility]. Comment on above: Patient Position: Sitting; Cuff Location : Left Arm; Cuff Size: Standard 02-01-2025 14:110400 Heart rate 75 /min Amy Soriano [facility]. Comment on above: Pattern: Regular 02-01-2025 14:110400 Systolic blood pressure 121 mm[Hg] Amy Soriano [facility].; [facility]. Comment on above: Patient Position: Sitting; Cuff Location : Left Arm; Cuff Size: Standard 01-28-2025 08:07-0400 Body temperature 97.81 [degF] Sachi Chaka MBBS Work Phone: [facility] 01-28-2025 08:07-0400 Diastolic blood pressure 74 mm[Hg] Sachi Chaka MBBS Work Phone: [facility] 01-28-2025 08:07-0400 Heart rate 68 /min Sachi Chaka MBBS Work Phone: [facility] 01-28-2025 08:07-0400 Respiratory rate 16 /min Sachi Chaka MBBS Work Phone: [facility] 01-28-2025 08:07-0400 SaO2% (BldA) [Mass fraction] 95 % Sachi Chaka MBBS Work Phone: [facility] 01-28-2025 08:07-0400 Systolic blood pressure 170 mm[Hg] Sachi Chaka MBBS Work Phone: [facility] 01-23-2025 05:58-0400 Body height 154.9 cm Sachi Chaka MB[employer] Work Phone: [facility] 01-23-2025 05:58-0400 Body mass index (BMI) [Ratio] 35.52 kg/m2 Sachi Chaka MBBS Work Phone: [facility] 01-23-2025 05:58-0400 Body weight 85.28 kg Sachi Chaka MBBS Work Phone: [facility] 01-10-2025 15:20-0400 Diastolic blood pressure 72 mm[Hg] Mackenzie Takhtay [employer]UCLE[employer] FUEL PROCESSING TECHNICIAN-[employer]ODUCTION SUPERVISOR Work Phone: [facility] 01-10-2025 15:20-0400 Systolic blood pressure 128 mm[Hg] Mackenzie Takhtay [employer]UCLE[employer] FUEL PROCESSING TECHNICIAN-[employer]ISS[employer] PRODUCTION SUPERVISOR Work Phone: [facility] 01-10-2025 14:34-0400 Body height 154.9 cm Mackenzie Takhtay [employer]UCLE[employer] FUEL PROCESSING TECHNICIAN-COMMISS[employer] PRODUCTION SUPERVISOR Work Phone: [facility] 01-10-2025 14:34-0400 Body mass index (BMI) [Ratio] 36.15 kg/m2 Mackenzie Takhtay [employer]UCLE[employer] FUEL PROCESSING TECHNICIAN-COMMISS[employer] PRODUCTION SUPERVISOR Work Phone: [facility] 01-10-2025 14:34-0400 Body temperature 97.9 [degF] Mackenzie Takhtay NUCLEAR FUEL PROCESSING TECHNICIAN-COMMISSARY PRODUCTION SUPERVISOR Work Phone: [facility] 01-10-2025 14:34-0400 Body weight 86.77 kg Mackenzie Takhtay NUCLEAR FUEL PROCESSING TECHNICIAN-COMMISS[employer] PRODUCTION SUPERVISOR Work Phone: [facility] 01-10-2025 14:34-0400 Heart rate 70 /min Mackenzie Takhtay NUCLE[employer] FUEL PROCESSING TECHNICIAN-COMMISSARY PRODUCTION SUPERVISOR Work Phone: [facility] 01-10-2025 14:34-0400 Respiratory rate 16 /min Mackenzie Dewitt NUCLEAR FUEL PROCESSING TECHNICIAN-COMMISSARY PRODUCTION SUPERVISOR Work Phone: [facility] 01-10-2025 14:34-0400 SaO2% (BldA) [Mass fraction] 98 % Mackenzie Reyes NUCLEAR FUEL PROCESSING TECHNICIAN-COMMISSARY PRODUCTION SUPERVISOR Work Phone: [facility] 12-31-2024 08:03-0500 Body height 152.4 cm Sachi Chaka MBBS Work Phone: [facility] 12-31-2024 08:03-0500 Diastolic blood pressure 79 mm[Hg] Sachi Chaka MBBS Work Phone: [facility] 12-31-2024 08:03-0500 Heart rate 70 /min Sachi Chaka MBBS Work Phone: [facility] 12-31-2024 08:03-0500 Systolic blood pressure 176 mm[Hg] Sachi Chaka MBBS Work Phone: [facility] 12-06-2024 13:06-0500 Body height 154 cm Sachi Chaka MBBS Work Phone: [facility] 12-06-2024 13:06-0500 Body mass index (BMI) [Ratio] 36.76 kg/m2 Sachi Chaka MBBS Work Phone: [facility] 12-06-2024 13:06-0500 Body temperature 98.1 [degF] Sachi Chaka MBBS Work Phone: [facility] 12-06-2024 13:06-0500 Body weight 87.18 kg Sachi Chaka MBBS Work Phone: [facility] Comment on above: w/o shoes 12-06-2024 13:06-0500 Diastolic blood pressure 77 mm[Hg] Sachi Chaka MBBS Work Phone: [facility] 12-06-2024 13:06-0500 Heart rate 74 /min Sachimele Aliciaain MBBS Work Phone: [facility] 12-06-2024 13:06-0500 Respiratory rate 18 /min Sachi Chaka MBBS Work Phone: [facility] 12-06-2024 13:06-0500 SaO2% (BldA) [Mass fraction] 95 % Sachimele Aliciaain MBBS Work Phone: [facility] 12-06-2024 13:06-0500 Systolic blood pressure 177 mm[Hg] Sachi Aliciaain MBBS Work Phone: [facility] 06-27-2024 13:56-0400 Body height 152.4 cm Roverto Lynch LPN [facility] [employer] [facility], [facility]. 06-27-2024 13:56-0400 Body mass index (BMI) [Ratio] 37.5 kg/m2 Roverto Lynch LPN [facility], [facility].; [employer] [facility], [facility]. 06-27-2024 13:56-0400 Body surface area Derived from formula 1.83 m2 Roverto Lynch LPN [facility], [facility].; [employer] [facility], [facility]. 06-27-2024 13:56-0400 Body weight 87.09 kg Roverto Lynch LPN [facility] [employer], [facility]. 06-27-2024 13:56-0400 Diastolic blood pressure 78 mm[Hg] oRverto Lynch LPN [employer] [facility], [facility].; [employer] [facility], [employer]. Comment on above: Patient Position: Sitting; Cuff Location : Left Arm; Cuff Size: Standard 06-27-2024 13:56-0400 Heart rate 72 /min Roverto Lynch LPN [facility] [employer], [employer]. Comment on above: Pattern: Regular 06-27-2024 13:56-0400 Systolic blood pressure 130 mm[Hg] Roverto Lynch LPN [facility].; [employer]. Comment on above: Patient Position: Sitting; Cuff Location : Left Arm; Cuff Size: Standard 02-05-2024 10:44-0400 Body height 152.4 cm Shu J Chow PA-C Work Phone: [facility] [employer]. 02-05-2024 10:44-0400 Body mass index (BMI) [Ratio] 41.21 kg/m2 Shu J Chow PA-C Work Phone: [facility] [employer].; [employer]. 02-05-2024 10:44-0400 Body surface area Derived from formula 1.91 m2 Shu J Chow PA-C Work Phone: [employer].; [employer] 02-05-2024 10:44-0400 Body weight 95.71 kg Shu J Chow PA-C Work Phone: [employer].; [employer]. 02-05-2024 10:44-0400 Diastolic blood pressure 82 mm[Hg] Shu J Chow PA-C Work Phone: [employer].; [employer]. Comment on above: Patient Position: Sitting; Cuff Location : Left Arm; Cuff Size: Standard 02-05-2024 10:44-0400 Heart rate 71 /min Shu J Chow PA-C Work Phone: [employer].; [employer]. Comment on above: Pattern: Regular 02-05-2024 10:44-0400 Systolic blood pressure 124 mm[Hg] Shu J Chow PA-C Work Phone: [employer].; [employer]. Comment on above: Patient Position: Sitting; Cuff Location : Left Arm; Cuff Size: Standard 11-23-2023 10:25-0500 Body height 152.4 cm [facility]overto Lynch LPN [facility].; [employer]. 11-23-2023 10:25-0500 Body mass index (BMI) [Ratio] 43.55 kg/m2 Roverto Lynch [facility] [employer] [facility].; [employer] 11-23-2023 10:25-0500 Body surface area Derived from formula 1.96 m2 Roverto Lynch [facility] [employer] [facility], [facility].; [employer]. 11-23-2023 10:25-0500 Body weight 101.15 kg Roverto Lynch [facility] [employer] [facility] [employer] [facility].; [employer]. 11-23-2023 10:25-0500 Diastolic blood pressure 78 mm[Hg] Roverto Lynch [facility] [employer] [facility] [employer]. Comment on above: Patient Position: Sitting; Cuff Location : Right Arm; Cuff Size: Standard 11-23-2023 10:25-0500 Heart rate 67 /min Roverto Lynch [facility] [employer] [facility] [employer]. Comment on above: Pattern: Regular 11-23-2023 10:25-0500 Systolic blood pressure 139 mm[Hg] Roverto Lynch [facility] [employer] [facility], [facility].; [employer]. Comment on above: Patient Position: Sitting; Cuff Location : Right Arm; Cuff Size: Standard 07-27-2023 09:30-0400 Body height 152.4 cm Roverto Lynch [facility] [employer]. 07-27-2023 09:30-0400 Body mass index (BMI) [Ratio] 45.89 kg/m2 Roverto Lynch [facility] [employer] [facility] [employer]. 07-27-2023 09:30-0400 Body surface area Derived from formula 2 m2 Roverto Rausch Keila [facility] [employer] [facility] [employer] [facility].; [employer]. 07-27-2023 09:30-0400 Body weight 106.6 kg Roverto Lynch [facility] [employer]. 07-27-2023 09:30-0400 Diastolic blood pressure 75 mm[Hg] Roverto Lynch LPN [facility].; [employer] [facility]. Comment on above: Patient Position: Sitting; Cuff Location : Left Arm; Cuff Size: Standard 07-27-2023 09:30-0400 Heart rate 81 /min Roverto Lynch LPN [facility] [employer]. Comment on above: Pattern: Regular 07-27-2023 09:30-0400 Systolic blood pressure 136 mm[Hg] Roverto Lynch LPN [facility].; [employer] [facility]. Comment on above: Patient Position: Sitting; Cuff Location : Left Arm; Cuff Size: Standard 01-29-2023 09:32-0400 Body weight 105.24 kg Shu Chow PA-C Work Phone: [facility].; [employer] [facility]. 01-29-2023 09:32-0400 Diastolic blood pressure 84 mm[Hg] Shu JAUREGUI-Dane Work Phone: [facility].; [employer]. Comment on above: Patient Position: Sitting; Cuff Location : Left Arm; Cuff Size: Standard 01-29-2023 09:32-0400 Heart rate 70 /min Shu JAUREGUI-C Work Phone: [facility].; [employer]. Comment on above: Pattern: Regular 01-29-2023 09:32-0400 Systolic blood pressure 153 mm[Hg] Shu JAUREGUI-Dane Work Phone: [facility].; [employer]. Comment on above: Patient Position: Sitting; Cuff Location : Left Arm; Cuff Size: Standard 08-01-2022 10:20-0400 Body height 152.4 cm Roverto Lynch LPN [facility], [facility].; [employer]. 08-01-2022 10:20-0400 Body mass index (BMI) [Ratio] 43.94 kg/m2 [facility].; [employer] [facility]. 08-01-2022 10:20-0400 Body surface area Derived from formula 1.96 m2 Roverto Allenlabach [facility], [facility].; [employer] [facility]. 08-01-2022 10:20-0400 Body weight 102.06 kg Roverto Rausch Keila PINEDA [facility] [employer] 08-01-2022 10:20-0400 Diastolic blood pressure 82 mm[Hg] Roverto Lynch [facility], [facility].; [employer]. Comment on above: Patient Position: Sitting; Cuff Location : Left Arm; Cuff Size: Standard 08-01-2022 10:20-0400 Heart rate 71 /min Roverto Allenlabach [facility], [facility].; [employer]. Comment on above: Pattern: Regular 08-01-2022 10:20-0400 Systolic blood pressure 137 mm[Hg] Roverto Allenlabach STRAINER TENDER [facility], [facility].; [employer]. Comment on above: Patient Position: Sitting; Cuff Location : Left Arm; Cuff Size: Standard 01-23-2022 13:110400 Body height 152.4 cm Roverto Allenlabach STRAINER TENDER [facility], [facility].; [employer]. 01-23-2022 13:11-0400 Body mass index (BMI) [Ratio] 42.97 kg/m2 Roverto Rausch Keila [facility] [employer] 01-23-2022 13:110400 Body surface area Derived from formula 1.94 m2 Roverto Allenlabach STRAINER TENDER [facility], [facility].; [employer]. 01-23-2022 13:110400 Body weight 99.79 kg Roverto Allenlabach [facility] [employer] [facility], [facility].; [employer]. 01-23-2022 13:110400 Diastolic blood pressure 72 mm[Hg] Roverto Rausch Keila STRAINER TENDER [employer] [facility], [employer]. Comment on above: Patient Position: Sitting; Cuff Location : Left Arm; Cuff Size: Standard 01-23-2022 13:11-0400 Heart rate 72 /min Roverto Lynch [facility] [employer]. Comment on above: Pattern: Regular 01-23-2022 13:11-0400 Systolic blood pressure 121 mm[Hg] Roverto Lynch STRAINER TENDER [facility] [employer]. Comment on above: Patient Position: Sitting; Cuff Location : Left Arm; Cuff Size: Standard 01-23-2021 10:55-0400 Body height 152.4 cm Roverto Lynch [facility] [employer] 01-23-2021 10:55-0400 Body mass index (BMI) [Ratio] 46.09 kg/m2 Roverto Rausch Keila [facility], [employer].; [employer] 01-23-2021 10:55-0400 Body surface area Derived from formula 2 m2 Roverto Rausch Keila [facility] [employer] [facility], [facility].; [employer]. 01-23-2021 10:55-0400 Body weight 107.05 kg Roverto Lynch [facility] [employer] [facility], [employer].; [employer]. 01-23-2021 10:55-0400 Diastolic blood pressure 84 mm[Hg] Roverto Lynch [facility], [facility].; [employer]. Comment on above: Patient Position: Sitting; Cuff Location : Right Arm; Cuff Size: Standard 01-23-2021 10:55-0400 Heart rate 71 /min Roverto Lynch [facility] [employer] [facility].; [employer]. Comment on above: Pattern: Regular 01-23-2021 10:55-0400 Systolic blood pressure 151 mm[Hg] Roverto Lynch [facility] [employer] [facility].; [employer]. Comment on above: Patient Position: Sitting; Cuff Location : Right Arm; Cuff Size: Standard 01-09-2021 09:51-0500 Body height 152.4 cm Shu Chow PA-C Work Phone: [employer] [facility].; [employer]. 01-09-2021 09:51-0500 Body mass index (BMI) [Ratio] 46.87 kg/m2 Shu Haney Chow PA-C Work Phone: [employer]; [employer]. 01-09-2021 09:51-0500 Body surface area Derived from formula 2.02 m2 Shu Haney Chow PA-C Work Phone: [email or web address]; [employer]. 01-09-2021 09:51-0500 Body weight 108.86 kg Shu Haney Chow PA-C Work Phone: [email or web address]; [employer]. 01-09-2021 09:51-0500 Diastolic blood pressure 79 mm[Hg] Shu Haney Chow PA-C Work Phone: [email or web address]; [employer]. Comment on above: Patient Position: Sitting; Cuff Location : Left Arm; Cuff Size: Standard 01-09-2021 09:51-0500 Heart rate 66 /min Shu Haney Chow PA-C Work Phone: [email or web address]; [employer]. Comment on above: Pattern: Regular 01-09-2021 09:51-0500 Systolic blood pressure 127 mm[Hg] Shu Haney Chow PA-C Work Phone: [email or web address]; [employer]. Comment on above: Patient Position: Sitting; Cuff Location : Left Arm; Cuff Size: Standard 06-18-2020 08:32-0400 Body height 152.4 cm Shu Haney Chow PA-C Work Phone: [email or web address]; [employer]. 06-18-2020 08:32-0400 Body mass index (BMI) [Ratio] 44.92 kg/m2 Shu Haney Chow PA-C Work Phone: [email or web address]; [email or web address] 06-18-2020 08:32-0400 Body surface area Derived from formula 1.98 m2 Shu Abbotter PA-C Work Phone: [employer]; [employer]. 06-18-2020 08:32-0400 Body weight 104.33 kg Shu Abbotter PA-C Work Phone: [employer]. 06-18-2020 08:32-0400 Diastolic blood pressure 80 mm[Hg] Shu Abbotter PA-C Work Phone: [employer].; [employer]. Comment on above: Patient Position: Sitting; Cuff Location : Left Arm; Cuff Size: Standard 06-18-2020 08:32-0400 Heart rate 64 /min Shu Abbotter PA-C Work Phone: [employer]; [employer]. Comment on above: Pattern: Regular 06-18-2020 08:32-0400 Inhaled oxygen concentration 20 % Shu Haney Chwo PA-C Work Phone: [employer]; [employer]. Comment on above: Room air 06-18-2020 08:32-0400 Inhaled oxygen concentration 21 % Shu Lyndon Chow PA-C Work Phone: [employer]; [employer]. Comment on above: Room air 06-18-2020 08:32-0400 SaO2% (BldA) [Mass fraction] 99 % Shu Haney Chow PA-C Work Phone: [employer]; [employer]. 06-18-2020 08:32-0400 Systolic blood pressure 128 mm[Hg] Shu Haney Chow PA-C Work Phone: [employer].; [employer]. Comment on above: Patient Position: Sitting; Cuff Location : Left Arm; Cuff Size: Standard 01-02-2020 11:42-0500 Body height 152.4 cm Irish Solano LPN [facility] [employer], [facility]. 01-02-2020 11:42-0500 Body mass index (BMI) [Ratio] 45.11 kg/m2 Irish Russ PINEDA [facility], [facility].; [employer] [facility] 01-02-2020 11:42-0500 Body surface area Derived from formula 1.98 m2 Irishkatherine Solano LPN [facility], [facility].; [employer] [facility], [facility]. 01-02-2020 11:42-0500 Body temperature 98.1 [degF] Irish Russ PINEDA [facility], [facility].; [employer]. Comment on above: Method: Tympanic 01-02-2020 11:42-0500 Body weight 104.78 kg Irish Russ PINEDA [facility], [facility].; [employer], [employer]. 01-02-2020 11:42-0500 Diastolic blood pressure 76 mm[Hg] Irish Solano LPN [employer] [facility], [facility].; [employer]. Comment on above: Patient Position: Sitting; Cuff Location : Left Arm; Cuff Size: Standard 01-02-2020 11:42-0500 Heart rate 72 /min Irishkatherine Solano LPN [employer] [facility], [facility].; [employer], [employer]. Comment on above: Pattern: Regular 01-02-2020 11:42-0500 Inhaled oxygen concentration 20 % Irish Solano LPN [facility], Inc.; [employer], [employer]. Comment on above: Room air 01-02-2020 11:42-0500 Inhaled oxygen concentration 21 % Irish Solano LPN [facility] [employer] [facility], [facility].; [employer]. Comment on above: Room air 01-02-2020 11:42-0500 SaO2% (BldA) [Mass fraction] 95 % Irish Solano STRAINER TENDER [employer] [facility], [facility].; [employer], [employer]. 01-02-2020 11:42-0500 Systolic blood pressure 130 mm[Hg] Irish Solano LPN [employer] [facility] [employer]. Comment on above: Patient Position: Sitting; Cuff Location : Left Arm; Cuff Size: Standard 06-15-2019 10:47-0400 Body height 152.4 cm Irish Cruzgretchen PINEDA [employer] 06-15-2019 10:47-0400 Body mass index (BMI) [Ratio] 43.94 kg/m2 Irish Cruzbenjierd STRAINER T[employer]ER [employer] 06-15-2019 10:47-0400 Body surface area Derived from formula 1.96 m2 Irish Wegretchen STRAINER TENDER [employer] 06-15-2019 10:47-0400 Body weight 102.06 kg Irish Cruzgretchen STRAINER T[employer]ER [employer] 06-15-2019 10:47-0400 Diastolic blood pressure 84 mm[Hg] Irish Cruzgretchen STRAINER TENDER [employer] Comment on above: Patient Position: Sitting; Cuff Location : Left Arm; Cuff Size: Standard 06-15-2019 10:47-0400 Heart rate 71 /min Irish Cruzgretchen STRAINER TENDER [employer] Comment on above: Pattern: Regular 06-15-2019 10:47-0400 Systolic blood pressure 130 mm[Hg] Irish Cruzgretchen PINEDA [employer] Comment on above: Patient Position: Sitting; Cuff Location : Left Arm; Cuff Size: Standard 11-04-2018 10:45-0500 Body height 152.4 cm Irish Wegretchen PINEDA [employer], [employer]. 11-04-2018 10:45-0500 Body mass index (BMI) [Ratio] 43.55 kg/m2 Irish Cruzbenjierd STRAINER TENDER [employer] 11-04-2018 10:45-0500 Body surface area Derived from formula 1.96 m2 Irish Wegretchen PINEDA [employer]. 11-04-2018 10:45-0500 Body weight 101.15 kg Irish Solano MIRIAM [employer] 11-04-2018 10:45-0500 Diastolic blood pressure 80 mm[Hg] Irish Cruzgretchen PINEDA [employer] Comment on above: Patient Position: Sitting; Cuff Location : Left Arm; Cuff Size: Standard 11-04-2018 10:45-0500 Heart rate 77 /min Irish Wegretchen [facility] Hospital[facility] Inc.; [employer] Comment on above: Pattern: Regular 11-04-2018 10:45-0500 Inhaled oxygen concentration 20 % Irish Hopkinsstefanie [facility].; [employer] Comment on above: Room air 11-04-2018 10:45-0500 Inhaled oxygen concentration 21 % Irish Wegretchen [facility] [employer] Comment on above: Room air 11-04-2018 10:45-0500 SaO2% (BldA) [Mass fraction] 97 % Irish Cruzgretchen [facility].; [employer] 11-04-2018 10:45-0500 Systolic blood pressure 127 mm[Hg] Irish Cruzluis angelgutierrez STRAINER TENDERLovelace Rehabilitation HospitalLoftware Inc.; [employer] Comment on above: Patient Position: Sitting; Cuff Location : Left Arm; Cuff Size: Standard 10-04-2018 08:24-0500 Body height 152.4 cm [employer]C Work Phone: [employer].; [employer]. 10-04-2018 08:24-0500 Body mass index (BMI) [Ratio] 43.36 kg/m2 [employer] Work Phone: [employer].; [employer] 10-04-2018 08:24-0500 Body surface area Derived from formula 1.95 m2 [employer] PA-C Work Phone: [employer].; [employer]. 10-04-2018 08:24-0500 Body temperature 98 [degF] Shu Chow PA-C Work Phone: [email or web address]; [employer]. Comment on above: Method: Tympanic 10-04-2018 08:24-0500 Body weight 100.7 kg Shu Chow PA-C Work Phone: [email or web address]; [employer]. 10-04-2018 08:24-0500 Diastolic blood pressure 84 mm[Hg] Shu Chow PA-C Work Phone: [email or web address]; [employer]. Comment on above: Patient Position: Sitting; Cuff Location : Left Arm; Cuff Size: Standard 10-04-2018 08:24-0500 Heart rate 75 /min Shu Chow PA-C Work Phone: [email or web address]; [employer]. Comment on above: Pattern: Regular 10-04-2018 08:24-0500 Systolic blood pressure 150 mm[Hg] Shu Chow PA-C Work Phone: [email or web address]; [employer]. Comment on above: Patient Position: Sitting; Cuff Location : Left Arm; Cuff Size: Standard 04-22-2018 09:53-0400 Body height 152.4 cm Shu J Chow PA-C Work Phone: [email or web address]; [employer]. 04-22-2018 09:53-0400 Body mass index (BMI) [Ratio] 42.38 kg/m2 Shu J Chow PA-C Work Phone: [email or web address]; [employer]. 04-22-2018 09:53-0400 Body surface area Derived from formula 1.93 m2 Suh J Chow PA-C Work Phone: [email or web address]; [employer]. 04-22-2018 09:53-0400 Body weight 98.43 kg Shu J Chow PA-C Work Phone: [employer].; [employer]. 04-22-2018 09:53-0400 Diastolic blood pressure 89 mm[Hg] Shu Abbotter PA-C Work Phone: [employer].; [employer]. Comment on above: Patient Position: Sitting; Cuff Location : Left Arm; Cuff Size: Standard 04-22-2018 09:53-0400 Heart rate 73 /min Shu Abbotter PA-C Work Phone: [employer]; [employer]. Comment on above: Pattern: Regular 04-22-2018 09:53-0400 Inhaled oxygen concentration 20 % Shu Abbotter PA-C Work Phone: [employer]; [employer]. Comment on above: Room air 04-22-2018 09:53-0400 Inhaled oxygen concentration 21 % Shu Abbotter PA-C Work Phone: [employer]; [employer]. Comment on above: Room air 04-22-2018 09:53-0400 SaO2% (BldA) [Mass fraction] 97 % Shu Abbotter PA-C Work Phone: [employer]; [employer]. 04-22-2018 09:53-0400 Systolic blood pressure 142 mm[Hg] Shu Abbotter PA-C Work Phone: [employer].; [employer]. Comment on above: Patient Position: Sitting; Cuff Location : Left Arm; Cuff Size: Standard 12-10-2017 10:05-0500 Body height 152.4 cm Roverto Lynch LPN [employer]. 12-10-2017 10:05-0500 Body mass index (BMI) [Ratio] 42.77 kg/m2 Roverto Lynch LPN [employer].; [employer]. 12-10-2017 10:05-0500 Body surface area Derived from formula 1.94 m2 Roverto Rausch Keila PINEDA [facility], [facility].; [employer] 12-10-2017 10:05-0500 Body weight 99.34 kg Roverto Rausch Keila [facility].; [employer] 12-10-2017 10:05-0500 Diastolic blood pressure 86 mm[Hg] Roverto Rausch Keila [facility], [facility].; [employer] Comment on above: Patient Position: Sitting; Cuff Location : Right Arm; Cuff Size: Standard 12-10-2017 10:05-0500 Heart rate 83 /min Roverto Rausch Keila [facility], [facility].; [employer] Comment on above: Pattern: Regular 12-10-2017 10:05-0500 Systolic blood pressure 159 mm[Hg] Roverto Rausch Keila PINEDA [facility], [facility].; [employer] Comment on above: Patient Position: Sitting; Cuff Location : Right Arm; Cuff Size: Standard 11-09-2017 10:31-0500 Body height 152.4 cm Irish Solano LPN [employer] [facility] [employer] 11-09-2017 10:31-0500 Body mass index (BMI) [Ratio] 42.57 kg/m2 Irish Solano LPN [employer] [facility] [employer] 11-09-2017 10:31-0500 Body surface area Derived from formula 1.94 m2 Irish Solano LPN [employer] [facility].; [employer] 11-09-2017 10:31-0500 Body weight 98.88 kg Irish Russ [facility] [employer] [employer].; [employer] 11-09-2017 10:31-0500 Diastolic blood pressure 93 mm[Hg] Irish Solano LPN [employer] [employer] Comment on above: Patient Position: Sitting; Cuff Location : Left Arm; Cuff Size: Standard 11-09-2017 10:31-0500 Heart rate 72 /min Irish Solano LPN [employer] [facility] [employer]. Comment on above: Pattern: Regular 11-09-2017 10:31-0500 Systolic blood pressure 156 mm[Hg] Irish Cruzgretchen PINEDA [employer] [facility], [facility].; [employer] Comment on above: Patient Position: Sitting; Cuff Location : Left Arm; Cuff Size: Standard 04-29-2017 11:02-0400 Body height 152.4 cm Irishkatherine Solano LPN [employer] [facility], [facility].; [employer] 04-29-2017 11:02-0400 Body mass index (BMI) [Ratio] 41.99 kg/m2 Irish Wegretchen [facility] [employer], [employer].; [employer] 04-29-2017 11:02-0400 Body surface area Derived from formula 1.93 m2 Irishkatherine Solano LPN [employer] [facility], [facility].; [employer], [employer]. 04-29-2017 11:02-0400 Body weight 97.52 kg Irish Russ PINEDA [employer], [employer]. 04-29-2017 11:02-0400 Diastolic blood pressure 84 mm[Hg] Irish Russ PINEDA [employer] [facility] [employer]. Comment on above: Patient Position: Sitting; Cuff Location : Left Arm; Cuff Size: Standard 04-29-2017 11:02-0400 Heart rate 64 /min Irish Solano LPN [employer] [facility] [employer]. Comment on above: Pattern: Regular 04-29-2017 11:02-0400 Systolic blood pressure 162 mm[Hg] Irish Wegretchen PINEDA [employer]. Comment on above: Patient Position: Sitting; Cuff Location : Left Arm; Cuff Size: Standard 10-09-2016 12:49-0500 Body height 154.94 cm Hiral Dillon RN [employer], [employer]. 10-09-2016 12:49-0500 Body mass index (BMI) [Ratio] 39.87 kg/m2 Hiral Dillon RN [employer]. 10-09-2016 12:49-0500 Body surface area Derived from formula 1.93 m2 Hiral Dillon RN [employer]. 10-09-2016 12:49-0500 Body temperature 97.6 [degF] Hiral Dillon RN [employer].; [employer]. Comment on above: Method: Tympanic 10-09-2016 12:49-0500 Body weight 95.71 kg Hiral Dillon RN [employer].; [employer]. 10-09-2016 12:49-0500 Diastolic blood pressure 89 mm[Hg] Hiral Dillon RN [employer].; [employer]. Comment on above: Patient Position: Sitting; Cuff Location : Right Arm; Cuff Size: Standard 10-09-2016 12:49-0500 Heart rate 78 /min Hiral Dillon RN [employer].; [employer]. Comment on above: Pattern: Regular 10-09-2016 12:49-0500 Inhaled oxygen concentration 20 % Shu Chow PA-C Work Phone: [employer].; [employer]. Comment on above: Room air 10-09-2016 12:49-0500 Inhaled oxygen concentration 21 % Hiral Dillon RN [employer].; [employer]. Comment on above: Room air 10-09-2016 12:49-0500 SaO2% (BldA) [Mass fraction] 94 % Hiral Dillon RN [employer].; [employer]. 10-09-2016 12:49-0500 Systolic blood pressure 157 mm[Hg] Hiral Dillon RN [employer].; [employer]. Comment on above: Patient Position: Sitting; Cuff Location : Right Arm; Cuff Size: Standard 04-24-2016 09:01-0400 Body height 154.94 cm Shu Chow PA-C Work Phone: [employer]; [employer]. 04-24-2016 09:01-0400 Body mass index (BMI) [Ratio] 40.43 kg/m2 Shu Abbotter PA-C Work Phone: [employer].; [employer]. 04-24-2016 09:01-0400 Body surface area Derived from formula 1.94 m2 Shu Abbotter PA-C Work Phone: [employer]; [employer]. 04-24-2016 09:01-0400 Body weight 97.07 kg Shu Abbotter PA-C Work Phone: [employer]; [employer]. 04-24-2016 09:01-0400 Diastolic blood pressure 84 mm[Hg] Shu Abbotter PA-C Work Phone: [employer]; [employer]. Comment on above: Patient Position: Sitting; Cuff Location : Left Arm; Cuff Size: Standard 04-24-2016 09:01-0400 Heart rate 67 /min Shu Abbotter PA-C Work Phone: [email or web address]; [employer]. Comment on above: Pattern: Regular 04-24-2016 09:01-0400 Systolic blood pressure 142 mm[Hg] Shu Abbotter PA-C Work Phone: [employer]; [employer]. Comment on above: Patient Position: Sitting; Cuff Location : Left Arm; Cuff Size: Standard 10-03-2015 10:17-0500 Body height 154.94 cm Shu Abbotter PA-C Work Phone: [email or web address]; [employer]. 10-03-2015 10:17-0500 Body mass index (BMI) [Ratio] 41.1 kg/m2 Shu Abbotter PA-C Work Phone: [email or web address]; [employer]. 10-03-2015 10:17-0500 Body surface area Derived from formula 1.96 m2 Shu Abbotter PA-C Work Phone: [employer].; [employer]. 10-03-2015 10:17-0500 Body weight 98.66 kg Shu Abbotter PA-C Work Phone: [employer].; [employer]. 10-03-2015 10:17-0500 Diastolic blood pressure 84 mm[Hg] Shu Abbotter PA-C Work Phone: [employer].; [employer]. Comment on above: Patient Position: Sitting; Cuff Location : Left Arm; Cuff Size: Standard 10-03-2015 10:17-0500 Heart rate 61 /min Shu Abbotter PA-C Work Phone: [email or web address]; [employer]. Comment on above: Pattern: Regular 10-03-2015 10:17-0500 Systolic blood pressure 136 mm[Hg] Shu Abbotter PA-C Work Phone: [email or web address]; [employer]. Comment on above: Patient Position: Sitting; Cuff Location : Left Arm; Cuff Size: Standard 04-04-2015 09:40-0400 Body height 156.46 cm Irish Solano LPN [employer]. 04-04-2015 09:40-0400 Body mass index (BMI) [Ratio] 39.89 kg/m2 Irish Solano LPN [employer].; [employer]. 04-04-2015 09:40-0400 Body surface area Derived from formula 1.96 m2 Irish Solano LPN [employer]. 04-04-2015 09:40-0400 Body weight 97.67 kg Irish Solano LPN [employer].; [employer]. 04-04-2015 09:40-0400 Diastolic blood pressure 90 mm[Hg] Irish Cruzgretchen PINEDA [employer] [facility] [employer]. Comment on above: Patient Position: Sitting; Cuff Location : Left Arm; Cuff Size: Standard 04-04-2015 09:40-0400 Heart rate 63 /min Irish Russ PINEDA [employer] [facility], [facility] Comment on above: Pattern: Regular 04-04-2015 09:40-0400 Systolic blood pressure 178 mm[Hg] Irish Cruzgretchen ZHUN [employer] [facility], [facility] [employer], [employer]. Comment on above: Patient Position: Sitting; Cuff Location : Left Arm; Cuff Size: Standard 02-12-2015 18:30-0400 Body temperature 98 [degF] Sasha Oconnell LPN [employer] [facility] [employer] 02-12-2015 18:30-0400 Body weight 95.71 kg Sasha Oconnell LPN [employer] [facility] [employer] 02-12-2015 18:30-0400 Diastolic blood pressure 84 mm[Hg] Sasha Oconnell LPN [employer], [employer]. Comment on above: Patient Position: Sitting; Cuff Location : Left Arm; Cuff Size: Standard 02-12-2015 18:30-0400 Heart rate 81 /min Sasha Oconnell LPN [employer] [facility] [employer]. Comment on above: Pattern: Regular 02-12-2015 18:30-0400 Inhaled oxygen concentration 20 % Sasha Oconnell LPN [employer] [facility] [employer]. Comment on above: Room air 02-12-2015 18:30-0400 Inhaled oxygen concentration 21 % Sasha Oconnell LPN [employer] [facility], [employer]. Comment on above: Room air 02-12-2015 18:30-0400 SaO2% (BldA) [Mass fraction] 96 % Sasha Oconnell LPN [employer] [facility] [employer] 02-12-2015 18:30-0400 Systolic blood pressure 155 mm[Hg] Sasha Oconnell LPN [employer]. Comment on above: Patient Position: Sitting; Cuff Location : Left Arm; Cuff Size: Standard 10-04-2014 09:50-0500 Body height 152.4 cm Shu Haney Chow PA-C Work Phone: [facility] [employer]. 10-04-2014 09:50-0500 Body mass index (BMI) [Ratio] 40.11 kg/m2 Shu Lyndon Chow PA-C Work Phone: [employer].; [employer] 10-04-2014 09:50-0500 Body surface area Derived from formula 1.89 m2 Shu Lyndon Chow PA-C Work Phone: [employer].; [employer]. 10-04-2014 09:50-0500 Body weight 93.16 kg Shu Lyndon Chow PA-C Work Phone: [employer].; [employer]. 10-04-2014 09:50-0500 Diastolic blood pressure 93 mm[Hg] Shu Lyndon Chow PA-C Work Phone: [employer].; [employer]. Comment on above: Patient Position: Sitting; Cuff Location : Left Arm; Cuff Size: Standard 10-04-2014 09:50-0500 Heart rate 73 /min Shu Lyndon Chow PA-C Work Phone: [employer].; [employer]. Comment on above: Pattern: Regular 10-04-2014 09:50-0500 Systolic blood pressure 171 mm[Hg] Shu Lyndon Chow PA-C Work Phone: [employer].; [employer]. Comment on above: Patient Position: Sitting; Cuff Location : Left Arm; Cuff Size: Standard 05-03-2014 10:13-0400 Body height 154.94 cm Shu J Chow PA-C Work Phone: [employer].; [employer]. 05-03-2014 10:13-0400 Body mass index (BMI) [Ratio] 38.36 kg/m2 Shu Abbotter PA-C Work Phone: [employer]; [employer]. 05-03-2014 10:130400 Body surface area Derived from formula 1.9 m2 Shu Abbotter PA-C Work Phone: [employer]; [employer]. 05-03-2014 10:13-0400 Body weight 92.08 kg Shu Abbotter PA-C Work Phone: [employer]; [employer]. 05-03-2014 10:13-0400 Diastolic blood pressure 110 mm[Hg] Shu Abbotter PA-C Work Phone: [employer]; [employer]. Comment on above: Patient Position: Sitting; Cuff Location : Left Arm; Cuff Size: Standard 05-03-2014 10:130400 Heart rate 74 /min Shu Abbotter PA-C Work Phone: [employer]; [employer]. Comment on above: Pattern: Regular 05-03-2014 10:130400 Systolic blood pressure 200 mm[Hg] Shu Abbotter PA-C Work Phone: [employer]; [employer]. Comment on above: Patient Position: Sitting; Cuff Location : Left Arm; Cuff Size: Standard Encounters Encounter Date Encounter Type Care Provider Facility Start: 09-07-2025 ambulatory [place] ty:[facility] Start: 09-05-2025 End: 09-05-2025 ambulatory [place] Facility:[facility] Start: 08-22-2025 End: 08-22-[address] [place] MD -[facility] Work Phone: Start: 08-22-2025 End: 08-22-2025 ambulatory Shu JAUREGUI Work Phone: -[facility] Start: 08-08-[address] Sherry Conn MD -[facility] Start: 08-08-2025 End: 08-08-[address] [place] MD -[facility] Work Phone: Start: 08-08-2025 End: 08-08-2025 ambulatory Shu Chow PA Work Phone: [facility] Start: 08-02-2025 End: 08-02-2025 ambulatory SHU J CHOW [facility] Start: 08-02-2025 ambulatory Marty Brown Facility:[facility] Start: 08-02-[address] Marty Brown MD -Cardiovascular Services Work Phone: Start: 07-27-[address] Sherry Conn MD -[facility] Start: 07-26-2025 End: 07-26-[address] Marty Brown MD -[facility] Work Phone: Start: 07-26-2025 End: 07-26-2025 ambulatory Shu Chow PA Work Phone: [facility] Start: 07-25-2025 End: 07-25-[address] [place] MD -[facility] Work Phone: Start: 07-25-2025 End: 07-25-2025 ambulatory Shu Chow PA Work Phone: [facility] Start: 07-11-2025 End: 07-11-[address] [place] MD -[facility] Work Phone: Start: 07-11-2025 End: 07-11-2025 ambulatory Shu Chow PA Work Phone: -[facility] Start: 07-11-[address] Sherry Conn MD -[facility] Start: 06-27-2025 End: 06-27-2025 Patient encounter procedure Alyssa HAWKINS -[facility] Work Phone: Start: 06-27-2025 End: 06-27-2025 ambulatory Shu Chow PA Work Phone: -[facility] Start: 06-27-[address] Sherry Conn MD -[facility] Start: 06-13-[address] Sherry Conn MD -[facility] Start: 06-13-2025 End: 06-13-[address] [place] MD -[facility] Work Phone: Start: 06-13-2025 End: 06-13-2025 ambulatory Shu Chow PA Work Phone: -[facility] Start: 06-12-2025 End: 06-12-2025 Orders Shu Chow PA-C Work [facility]: [facility] Start: 06-05-2025 Non-patient / Non-visit Dr. Josee PIRES -[facility] Start: 06-05-2025 End: 06-05-2025 ambulatory Shu Chow PA Work Phone: -Cardiovascular Services Start: 06-05-2025 End: 06-05-2025 Patient encounter procedure Shu Chow PA -Cardiovascular Services Work Phone: Start: 06-05-2025 End: 06-05-2025 ambulatory Shu Chow PA Facility:[facility] Start: 06-01-[address] Sherry Conn MD -[facility] Start: 05-31-2025 Review Shu Chow PA-C Work Phone: [facility] Start: 05-30-[address] Sherry Conn MD -[facility] Start: 05-30-2025 End: 05-30-[address] John Esquivel MD -[facility] Work Phone: Start: 05-30-2025 End: 05-30-2025 ambulatory Shu Chow PA Work Phone: -[facility] Start: 05-22-2025 End: 05-23-2025 Office outpatient visit 25 minutes Shu Chow PA-C Work Phone: [employer] [facility] Start: 05-22-2025 Review Shu Chow PA-C Work Phone: [employer] Start: 05-19-2025 End: 05-19-2025 Historical Summary Shu JAUREGUI-C Work Phone: [facility] Start: 05-17-2025 End: 05-17-2025 Telephone follow-up Shu JAUREGUI-C Work Phone: [facility] Start: 05-16-2025 End: 05-16-2025 Medication Shu JAUREGUI-C Work Phone: [facility] Start: 05-15-2025 Non-patient / Non-visit Dr. Ru Montesinos DO [facility] Work Phone: Start: 05-14-2025 Non-patient / Non-visit Dr. Ru Montesinos DO [facility] Work Phone: Start: 05-13-2025 Non-patient / Non-visit Dr. Ru Montesinos DO [facility] Work Phone: Start: 05-13-2025 End: 05-15-2025 Evaluation and management of inpatient Dr. Maciel Montesinos DO [facility] Work Phone: Start: 05-13-2025 ambulatory Maciel Montesinos Facilit y:[facility] Start: 05-04-[address] Sherry Conn MD [facility] Start: 05-02-[address] Sherry Conn MD [facility] Start: 05-02-2025 End: 05-02-2025 Patient encounter procedure Alyssa HAWKINS -[facility] Work Phone: Start: 05-02-2025 End: 05-02-2025 ambulatory Shu Chow PA Work Phone: [facility] Start: 04-18-2025 End: 04-18-[address] [place] Conn MD -[facility] Work Phone: Start: 04-18-2025 End: 04-18-2025 ambulatory Shu Chow PA Work Phone: [facility] Work Phone: Start: 04-18-[address] Sherry Conn MD -[facility] Start: 04-04-[address] Sherry Chiang [facility] Start: 04-04-2025 End: 04-04-2025 Patient encounter procedure Alyssa Lynch WORKDAY FINANCIALS CONSULTANT-C -[facility] Work Phone: Start: 04-04-2025 End: 04-04-2025 ambulatory Shu Chow PA Work Phone: [facility] Work Phone: Start: 03-24-2025 End: 03-24-2025 Patient encounter procedure Shu Chow PA-C Work Phone: [facility] Start: 03-24-2025 End: 03-24-2025 Periodic preventive med est patient 65yrs& older Shu Chow PA-C Work Phone: [facility] Start: 03-21-[address] Sherry Chiang Oncology Start: 03-21-2025 End: 03-21-2025 Patient encounter procedure Alyssadeborah AllenKeila WORKDAY FINANCIALS CONSULTANT-C -[facility] Work Phone: Start: 03-21-2025 End: 03-21-2025 ambulatory Shu Chow PA Work Phone: [facility] Work Phone: Start: 03-20-2025 ambulatory Michael Gaines Facility :[facility] Start: 03-20-2025 Non-patient / Non-visit Dr. Michael Gaines MD -[facility] Start: 03-20-2025 End: 03-20-2025 Admission to same day surgery center Dr. Michael Gaines MD [facility] Start: 03-20-2025 End: 03-20-2025 ambulatory Shu Chow PA Work Phone: [facility] Work Phone: Start: 03-17-2025 End: 03-17-2025 Orders Shu Chow PA-C Work Phone: [facility] Start: 03-15-2025 End: 03-15-[address] Michael Gaines MD -[facility] Work Phone: Start: 03-15-2025 End: 03-15-2025 ambulatory Shu Chow PA Work Phone: [facility] Work Phone: Start: 03-15-2025 End: 03-15-2025 Patient encounter procedure Alyssa Lynch NP-C -[facility] Work Phone: Start: 03-15-2025 End: 03-15-2025 ambulatory Shu Chow PA Work Phone: [facility] Work Phone: Start: 03-09-[address] Sherry Conn MD -[facility] Start: 03-09-2025 End: 03-09-[address] [place] Conn MD -[facility] Work Phone: Start: 03-09-2025 End: 03-09-2025 ambulatory Sachi Chaka Facility:[facility] Start: 03-06-2025 Non-patient / Non-visit Shikha Pleitez si, LPN -[facility] Work Phone: Start: 03-06-2025 ambulatory Shu Chow PA Facil ity:[facility] Start: 02-21-2025 End: 02-21-2025 Postop follow up visit related to original px Sachi Rosas A[place]ICA Work Phone: Division of Colon & Rectal Surgery Comment on above: Malignant neoplasm o f ascending colon (Primary Dx) Start: 02-21-2025 ambulatory SHU Haney GERALDO Chiu ty:[facility] Start: 02-01-2025 End: 02-01-2025 Office outpatient visit 25 minutes Shu Chow PA-C Work Phone: [email or web address] Start: 02-01-2025 ambulatory AGATA Logan Ellis ity:[facility] Start: 01-30-2025 End: 01-30-2025 Telephone follow-up Shu Chow PA-C Work Phone: [email or web address] Start: 01-29-2025 End: 01-29-2025 ambulatory Tricia Otero RN Oncology Nurse Wendi amador Start: 01-23-2025 End: 01-28-2025 Evaluation and management of inpatient Sachi Rosas [place] Work Phone: [email or web address] Comment on above: Colon cancer Start: 01-16-2025 End: 01-16-2025 Orders Shu Chow PA-C Work Phone: [email or web address] Start: 01-16-2025 ambulatory SHU Lyndon GERALDO Chiu ty:[facility] Start: 01-13-2025 Review Shu Chow PA-C Work Phone: [email or web address] Start: 01-10-2025 ambulatory MACKENZIE REYES Facilit y:[facility] Start: 01-10-2025 End: 01-10-2025 Office outpatient new 45 minutes Mackenzie Reyes NUCLEAR FUEL PROCESSING TECHNICIAN-COMMISSARY PRODUCTION SUPERVISOR Work Phone: Pre-Procedure Evaluation and Assessment [facility] Comment on above: Preop exam for inter nal medicine (Primary Dx); Malignant neoplasm of ascending colon; Essential hypertension; Mixed hyperlipidemia; Abnormal coagulation profile Start: 01-10-2025 End: 01-10-2025 Patient encounter status Mackenzie Reyes NUCLEAR FUEL PROCESSING TECHNICIAN-COMMISSARY PRODUCTION SUPERVISOR Work Phone: [facility] Start: 01-10-2025 Encounter for other preprocedural examination MACKENZIE REYES Facility:[facility] Start: 01-10-2025 End: 01-10-2025 Clinical Support Encounter [facility] Humberto Cain 8 Work Phone: [facility] Comment on above: Malignant neoplasm o f ascending colon (Primary Dx) Start: 01-10-2025 ambulatory MACKENZIE Abby ALEJANDROMASOODAMANDA Facilit y:[facility] Start: 01-03-2025 ambulatory SHU J CHOWDAJUAN Ellisi ty:[facility] Start: 12-31-2024 ambulatory SHU Lyndon CHOW Facili ty:[facility] Start: 12-31-2024 End: 12-31-2024 Subsequent hospital visit by physician Sachi LEGER Work Phone: [facility] [place] Comment on above: Arrived Start: 12-06-2024 End: 12-06-2024 Office consultation new/estab patient 40 min Sachi LEGER Work Phone: Division of Colon & Rectal Surgery Comment on above: Malignant neoplasm o f ascending colon (Primary Dx) Start: 12-06-2024 ambulatory SHU Ellisi ty:[facility] Start: 11-17-2024 End: 11-17-2024 ambulatory [facility] Start: 11-15-2024 Evaluation and management of inpatient [facility] Start: 08-17-2024 End: 08-17-2024 ambulatory [facility] Start: 07-05-2024 End: 07-06-2024 Orders Shu Chow PA-C Work Phone: [facility]. Start: 06-27-2024 End: 06-27-2024 Patient encounter procedure Shu Chow PA-C Work Phone: [facility] Start: 06-27-2024 End: 06-27-2024 Periodic preventive med est patient 65yrs& older Shu Chow PA-C Work Phone: [facility]. Start: 05-04-2024 End: 05-06-2024 Orders Shu Chow PA-C Work Phone: [facility]. Start: 02-05-2024 End: 02-05-2024 Office outpatient visit 25 minutes Shu Chow PA-C Work Phone: [facility]. Start: 11-23-2023 End: 11-23-2023 Patient encounter procedure Shu Chow PA-C Work Phone: [facility]. Start: 11-23-2023 End: 11-23-2023 Preprocedural examination done Shu Chow PA-C Work Phone: [facility]. Start: 07-27-2023 End: 07-27-2023 Patient encounter procedure Shu Chow PA-C Work Phone: [facility]. Start: 07-20-2023 End: 07-20-2023 Orders Shu Chow PA-C Work Phone: [facility]. Start: 01-29-2023 End: 01-29-2023 Office outpatient visit 25 minutes Shu Chow PA-C Work Phone: [facility]. Start: 08-18-2022 End: 08-18-2022 Orders Shu Chow PA-C Work Phone: [facility]. Start: 08-01-2022 End: 08-01-2022 Patient encounter procedure Shu Chow PA-C Work Phone: [facility]. Start: 04-16-2022 End: 04-16-2022 Orders Shu Chow PA-C Work Phone: [email or web address] Start: 01-23-2022 End: 01-23-2022 Office outpatient visit 25 minutes Shu Chow PA-C Work Phone: [email or web address] Start: 04-11-2021 End: 04-11-2021 Orders Shu Chow PA-C Work Phone: [facility]. Start: 01-23-2021 End: 01-23-2021 Office outpatient visit 15 minutes Shu Chow PA-C Work Phone: [facility]. Start: 01-09-2021 End: 01-09-2021 Office outpatient visit 25 minutes Shu Chow PA-C Work Phone: [facility]. Start: 06-25-2020 End: 06-25-2020 Orders Shu Chow PA-C Work Phone: [facility]. Start: 06-25-2020 End: 06-25-2020 Orders Shu Chow PA-C Work Phone: [facility]. Start: 06-18-2020 End: 06-18-2020 Patient encounter procedure Irish Solano LPN [facility]. Start: 05-03-2020 End: 05-07-2020 Orders Shu Chow PA-C Work Phone: [facility]. Start: 01-02-2020 End: 01-02-2020 Office outpatient visit 15 minutes Shu Chow PA-C Work Phone: [facility]. Start: 06-15-2019 End: 06-16-2019 Patient encounter procedure Irish Solano LPN [facility]. Start: 05-18-2019 End: 05-18-2019 Orders Shu Chow PA-C Work Phone: [facility]. Start: 11-04-2018 End: 11-04-2018 Office outpatient visit 25 minutes Shu Chow PA-C Work Phone: [facility]. Start: 10-04-2018 End: 10-04-2018 Office outpatient visit 15 minutes Shu Chow PA-C Work Phone: [facility]. Start: 04-26-2018 End: 04-26-2018 Orders Shu Chow PA-C Work Phone: [facility]. Start: 04-22-2018 End: 04-23-2018 Office outpatient visit 15 minutes Shu Chow PA-C Work Phone: [facility]. Start: 12-14-2017 End: 12-14-2017 Orders Shu Chow PA-C Work Phone: [facility]. Start: 12-10-2017 End: 12-13-2017 Patient encounter procedure Shu Chow PA-C Work Phone: [facility]. Start: 11-09-2017 End: 11-09-2017 Patient encounter procedure Irish Solnao LPN [facility]. Start: 10-25-2017 End: 10-25-2017 Emergency department patient visit [facility] Facility:[place] Start: 09-04-2017 End: 09-04-2017 Orders Shu Chow PA-C Work Phone: [facility]. Start: 04-29-2017 End: 04-29-2017 Office outpatient visit 15 minutes Shu Chow PA-C Work Phone: [facility]. Start: 10-09-2016 End: 10-09-2016 Patient encounter procedure Shu Chow PA-C Work Phone: [facility]. Start: 04-24-2016 End: 04-24-2016 Patient encounter procedure Shu Chow PA-C Work Phone: [facility]. Start: 04-23-2016 End: 04-23-2016 Historical Summary Shu Chow PA-C Work Phone: [facility]. Start: 10-10-2015 End: 10-10-2015 Orders Shu Chow PA-C Work Phone: [facility]. Start: 10-03-2015 End: 10-03-2015 Patient encounter procedure Shu Abbotter PA-C Work Phone: [facility]. Start: 08-22-2015 End: 08-22-2015 Orders Shu JAUREGUI-C Work Phone: [employer] Start: 04-04-2015 End: 04-04-2015 Patient encounter procedure Shu JAUREGUI-C Work Phone: [facility]. Start: 02-12-2015 End: 02-12-2015 Patient encounter procedure Shu JAUREGUI-C Work Phone: [employer] Start: 10-04-2014 End: 10-04-2014 Patient encounter procedure Shu JAUREGUI-C Work Phone: [employer]. Start: 05-03-2014 End: 05-03-2014 Manual pelvic examination Shu Chow PA-C Work Phone: [employer] [facility] [employer] Start: 05-03-2014 End: 05-03-2014 Patient encounter procedure Suh JAUREGUI-Dane Work Phone: [employer] [facility] to [facility] Shu JAUREGUI-Dane Work Phone: [employer] [facility] [employer]. Admission to same day surgery center surgery [place] Carlie Xiao [facility] [employer] [facility]. Admission to [facility] Roverto Lynch STRAINER TENDER [facility].; [facility]. Admission to same day surgery center surgery [place] Amy Soriano [facility], [facility].; [employer] [facility] [employer] Manual pelvic examination [facility].; [employer] [facility] [employer]. Patient encounter procedure Roverto Lynch LPN [employer] [facility], [facility].; [employer] Patient encounter procedure Amy Soriano [facility], [facility] [employer] Procedures Date Procedure Procedure Detail Performing Clinician Start: 09-05-2025 Estimated creatinine clearance Shu JAUREGUI Work Phone: Start: 09-05-2025 Serum inorganic phos phate measurement Shu Chow PA Work Phone: Start: 08-08-2025 Estimated creatinine clearance Shu Chow PA Work Phone: Start: 08-08-2025 Serum inorganic phos phate measurement Shu Chow PA Work Phone: Start: 07-25-2025 Estimated creatinine clearance Shu Chow PA Work Phone: Start: 07-11-2025 Estimated creatinine clearance Shu Chow PA Work Phone: Start: 06-27-2025 Estimated creatinine clearance Shu Chow PA Work Phone: Start: 06-27-2025 Serum inorganic phos phate measurement Shu Chow PA Work Phone: Start: 06-13-2025 Estimated creatinine clearance Shu Chow PA Work Phone: Start: 05-30-2025 Estimated creatinine clearance Shu Chow PA Work Phone: Start: 05-22-2025 End: 06-07-2025 TTE w or wo fol wcon,Doppler Shu J P almer PA-C Work Phone: Start: 05-15-2025 MRI of brain with contrast Shu Chow PA Work Phone: Start: 05-15-2025 Estimated creatinine clearance Shu Chow PA Work Phone: Start: 05-13-2025 Urnls dip stick/tabl et reagent auto microscopy Shu Chow PA Work Phone: Start: 05-13-2025 Blood culture Shu P almer PA Work Phone: Start: 05-13-2025 Urine culture Shu P almer PA Work Phone: Start: 05-13-2025 Plain chest X-ray Debbie sa Chow PA Work Phone: Start: 05-13-2025 Estimated creatinine clearance Shu Chow PA Work Phone: Start: 05-13-2025 Flow cytometry cell surf marker techl only 1st Shu Chow PA Work Phone: Start: 05-13-2025 CT of head without contrast Shu Chow PA Work Phone: Start: 05-02-2025 Estimated creatinine clearance Shu Abbotter PA Work Phone: Start: 05-02-2025 Serum inorganic phos phate measurement Suh Abbotter PA Work Phone: Start: 05-02-2025 Total iron binding c apacity measurement Shu Chow PA Work Phone: Start: 04-18-2025 Estimated creatinine clearance Shu Abbotter PA Work Phone: Start: 04-04-2025 Estimated creatinine clearance Shu Abbotter PA Work Phone: Start: 03-24-2025 End: 03-24-2025 Adv care pln/ no alt dcsn mkr docd or refusal Shu Abbotter PA-C Work Phone: Start: 03-24-2025 End: 03-24-2025 Depression screening Shu Abbotter PA -C Work Phone: Start: 03-24-2025 End: 03-24-2025 Falls risk assessment documented Shu Abbotter PA-C Work Phone: Start: 03-24-2025 End: 03-24-2025 PPPS, subseq visit Shu Abbotter PA- C Work Phone: Start: 03-24-2025 End: 03-24-2025 Pt falls assess docd w/o fall/injury past year Shu Abbotter PA-C Work Phone: Start: 03-24-2025 End: 03-24-2025 Scr dep neg, no plan reqd Shu Abbott er PA-C Work Phone: Start: 03-21-2025 Estimated creatinine clearance Shu Chow PA Work Phone: Start: 03-20-2025 End: 03-20-2025 port placement for CA treatment Amy Soriano CCMA Start: 03-20-2025 Plain chest X-ray Debbie kincaid Gerlado JAUREGUI Work Phone: Start: 03-20-2025 Implantation to cardiovascular system Shu Geraldo JAUREGUI Work Phone: Start: 03-20-2025 Fluoroscopic guidance Miracle cuauhtemoc Geraldo JAUREGUI Work Phone: Start: 01-28-2025 Radiologic exam abdo men 1 view Malick Mays Ricci NUCLEAR FUEL PROCESSING TECHNICIAN-COMMISSARY PRODUCTION SUPERVISOR Work Phone: Start: 01-28-2025 Assay of magnesium Giorgio Mares MD Work Phone: Start: 01-27-2025 Radiologic exam abdo men 1 view Malick Ricci NUCLEAR FUEL PROCESSING TECHNICIAN-COMMISSARY PRODUCTION SUPERVISOR Work Phone: Start: 01-27-2025 Assay of magnesium [...] Phone: Start: 01-10-2025 Antibody screen Mackenzie haley NUCLEAR FUEL PROCESSING TECHNICIAN-COMMISSARY PRODUCTION SUPERVISOR Work Phone: Start: 01-10-2025 Antibody screen MACKENZIE HALEY Comment on above: Performed By: #### X MPO #### [facility] (DEFAULT) [address] [place] [address] Start: 01-10-2025 Blood typing serologic abo Mackenzie Reyes NUCLEAR FUEL PROCESSING TECHNICIAN-COMMISSARY PRODUCTION SUPERVISOR Work Phone: Start: 01-10-2025 CBC AND ELECTRONIC DIFF Mackenzie Reyes NUCLEAR FUEL PROCESSING TECHNICIAN-COMMISSARY PRODUCTION SUPERVISOR Work Phone: Start: 01-10-2025 Complete blood count with white cell differential, automated Mackenzie Noblesmasoodamanda NUCLEAR FUEL PROCESSING TECHNICIAN-COMMISSARY PRODUCTION SUPERVISOR Work Phone: Start: 01-10-2025 Comprehensive metabo lic panel Mackenzie Dewittamanda NUCLEAR FUEL PROCESSING TECHNICIAN-COMMISSARY PRODUCTION SUPERVISOR Work Phone: Start: 01-10-2025 PREPARE TO TRANSFUSE OR RED BLOOD CELLS Mackenzie Noblesmasoodamanda NUCLEAR FUEL PROCESSING TECHNICIAN-COMMISSARY PRODUCTION SUPERVISOR Work Phone: Start: 12-31-2024 Creatinine blood Sachi [...] 06-27-2024 No Known Past Surgical History Shu JAUREGUI-C Work Phone: Start: 06-27-2024 End: 06-27-2024 PPPS, subseq visit Shu Chow PA- C Work Phone: Start: 06-27-2024 End: 06-27-2024 Pt falls assess docd w/o fall/injury past year Shu Chow PA-C Work Phone: Start: 06-27-2024 End: 06-27-2024 Scr dep neg, no plan reqd Shu francisco PA-C Work Phone: Start: 12-03-2023 End: 12-03-2023 Total replacement of right knee joint Shu JAUREGUI-C Work Phone: Start: 11-23-2023 End: 11-27-2023 Ecg [...] Scr dep neg, no plan reqd Shu francisco PA-C Work Phone: Start: 07-27-2023 End: 08-24-2023 Screening digital breast tomosynthesis bi Shu Haney Chow PA-C Work Phone: Start: 07-20-2023 End: 07-20-2023 Lipid panel Rovertodeborah Aparicioach LP N Comment on above: TC 204, HDL 67, LDL 107, Trig 178 Start: 08-01-2022 End: 08-01-2022 Bone density scan Roverto Miracle AparicioKeila LP N Comment on above: Normal. Start: 08-01-2022 End: 08-28-2022 Screening mammography Roverto Miracle AparicioKeila STRAINER TENDER Comment on above: Normal. Start: 08-01-2022 End: 08-29-2022 Dxa bone density study 1/> sites axial skel Shu Lyndon Chow PA-C Work Phone: Start: 07-17-2022 End: 07-17-2022 Lab findings surveillance Roverto Rausch Markus ach STRAINER TENDER Comment on above: 98 CMP Start: 01-23-2021 End: 02-04-2021 Us abdominal real time w/image documentation Shu Lyndon Abbotter PA-C Work Phone: Start: 06-18-2020 End: 06-18-2020 Depression screening Shu Lyndon Chow PA -C Work Phone: Start: 06-18-2020 End: 06-18-2020 Falls risk assessment documented Shubijan Chow PA-C Work Phone: Start: 06-18-2020 End: [...] mammography bi 2-view breast inc cad Shu Haney Chow PA-C Work Phone: Start: 06-15-2019 End: 06-15-2019 Depression screening Shu Abbotter PA -C Work Phone: Start: 06-15-2019 End: 06-15-2019 Falls risk assessment documented Shu Abbotter PA-C Work Phone: Start: 06-15-2019 End: 06-15-2019 PPPS, subseq visit Shu Haney Chow PA- C Work Phone: Start: 06-15-2019 End: 06-15-2019 Pt falls assess docd 2/> falls/fall w/injury/yr Shu Haney Chow PA-C Work Phone: Start: 06-15-2019 End: 06-15-2019 Scr dep neg, no plan reqd Shu Abbott er PA-C Work Phone: Start: 05-18-2019 End: 03-04-2022 Screening mammography bi 2-view breast inc cad Shu Haney Chow PA-C Work Phone: Start: 04-25-2019 End: 04-25-2019 elaine Lynch LP N Comment on above: Normal. 30 Start: 04-26-2018 End: 03-04-2022 Polysom 6/>yrs sleep w/cpap 4/> addl jacob attnd Shu Haney Chow PA-C Work Phone: Start: 12-14-2017 End: 05-12-2018 Continuous negative pressure ventj initiat&mgm Shu Haney Chow PA-C Work Phone: Start: 12-10-2017 End: 12-10-2017 [...] systolic blood pres>/equal 140 mm hg Shu Chow PA-C Work Phone: Start: 11-09-2017 End: 11-09-2017 Pt falls assess docd w/o fall/injury past year Shu Chow PA-C Work Phone: Start: 11-09-2017 End: 11-09-2017 Scr dep neg, no plan reqd Shu francisco PA-C Work Phone: Start: 11-09-2017 End: 12-11-2017 Mri brain brain stem w/o contrast material Shu JAUREGUI-C Work Phone: Start: 11-09-2017 End: 11-11-2017 Duplex scan extracranial art compl bi study Shu Chow PA-C Work Phone: Start: 11-09-2017 End: 11-13-2017 Doppler echocard pulse wave w/spectral display Shu Chow PA-C Work Phone: Start: 11-09-2017 End: 12-13-2017 PPPS, subseq visit Shu Chow PA- C Work Phone: Start: 11-09-2017 End: 12-10-2017 Screening mammography bi 2-view breast inc cad Shu Chow PA-C Work Phone: Start: 11-09-2017 End: 11-09-2017 Falls risk assessment documented Shu Chow PA-C Work Phone: Start: 11-09-2017 End: 11-09-2017 Depression screen annual Shu Mcbride r PA-C Work Phone: Start: 04-29-2017 End: 04-29-2017 Depression screen annual Shu Mcbride r PA-C Work Phone: Start: 04-29-2017 End: 08-11-2017 Falls risk assessment documented Shu Chow PA-C Work Phone: Start: 10-03-2015 End: 08-29-2019 PPPS, initial visit Shu Haney Geraldo Vela Work Phone: Start: 10-03-2015 End: 12-12-2015 Dxa bone density study 1/> sites axial skel Shu Haney Geraldo LAI Work Phone: Start: 10-03-2015 End: 10-31-2015 Mammogram, screening Shu Haney Geraldo Strickland Work Phone: Start: 10-02-2015 End: 10-02-2015 [...] 05-03-2014 No Known Past Surgical History Shu Haney Geraldo LAI Work Phone: Start: 05-02-2014 End: 05-02-2014 Microscopic examination of cervical Papanicolaou smear Roverto Lynch STRAINER TENDER LMP Roverto M Schlaba ch STRAINER TENDER Comment on above: 64 LMP Roverto M Schlaba ch STRAINER TENDER Comment on above: 64 LMP Amy HERNANDEZ Comment on above: 64 Most Recent Cardio Report Hi benedicto Geraldo LAI Work Phone: Comment on above: No Cardiology record s 05/19/2025 Ophthalmic examinati on and evaluation Roverto Allenlabach STRAINER TENDER Comment on above: 4 years ago Ophthalmic examinati on and evaluation Roverto Rausch Keila STRAINER TENDER Comment on above: 4 years ago Ophthalmic examinati on and evaluation Amy HERNANDEZ Comment on above: 4 years ago Plan of Treatment Date Care Activity Detail Author Start: 01-28-2026 Potassium [Moles/volume] in Serum or Plasma POTASSIUM [facility] Start: 09-07-2025 Registered Recurring Registered Recurring [facility] Start: 09-05-2025 End: 09-05-2025 Patient encounter procedure Anemia -[facility] Work Phone: Start: 09-05-2025 Vital signs measurements [facility] Start: 08-22-2025 Serum inorganic phosphate measurement [facility] Start: 08-22-2025 Vital signs measurements [facility] Start: 08-17-2025 Screening for malignant neoplasm of colon COLORECTAL CANCER SCREENING DISCUSSION [facility] Start: 08-08-2025 Serum inorganic phosphate measurement [facility] Start: 08-08-2025 [facility] Start: 08-08-2025 Vital signs measurements [facility] Start: 07-27-2025 Registered Recurring Registered Recurring -[facility] Start: 07-26-2025 Cardiac event recording [facility] Start: 07-26-2025 End: 07-26-2025 Evaluation of diagnostic study results [facility] Start: 07-25-2025 Vital signs measurements [facility] Start: 07-11-2025 [facility] Start: 07-11-2025 Vital signs measurements [facility] Start: 07-03-2025 Influenza vaccination INFLUENZA VACCINE (Season Ended) [facility] Start: 06-27-2025 Carcinoembryonic Ag [Mass/volume] in Serum or Plasma [facility] Start: 06-27-2025 Serum inorganic phosphate measurement [facility] [facility] Start: 06-27-2025 [facility] Start: 06-27-2025 Vital signs measurements [facility] Start: 06-13-2025 [facility] Start: 06-13-2025 Vital signs measurements [facility] Start: 05-30-2025 [facility] Start: 05-30-2025 Vital signs measurements [facility] Start: 05-22-2025 TTE w or wo fol wcon,Doppler Echocardiogram, Complete with contrast per protocol if indicated ADULT (90162) Start: 22-May-2025 Intent [employer] [facility] [facility] Start: 05-22-2025 Culture bacterial quanttative colony count urine Urine Culture ([id number]) Start: 22-May-2025 10:28-04:00 Request [facility]; [facility] Start: 05-22-2025 Patient encounter procedure Medical; Hospital F/U - [facility] IP 05/15, syncope/collapse, UTI, hypokalemia, MJP [facility] Start: 22-May-2025 09:30-04:00 JOELLE Chow Appointment Request [facility] Start: 05-15-2025 Patient discharge [facility] Start: 05-15-2025 [facility] Start: 05-13-2025 Venous catheter care management [facility] Start: 05-13-2025 Assessment of risk of venous thromboembolism [facility] Start: 05-13-2025 Insertion of catheter into peripheral vein [facility] Start: 05-13-2025 Measuring intake and output [facility] Start: 05-13-2025 Providing care according to standard [facility] Start: 05-13-2025 Provision of activity privileges [facility] Start: 05-13-2025 Referral for physical therapy [facility] Start: 05-13-2025 Referral to occupational therapist [facility] Start: 05-13-2025 Referral to service [facility] Start: 05-13-2025 [facility] Start: 05-13-2025 Verification routine [facility] Start: 05-13-2025 Admission procedure [facility] Start: 05-13-2025 End: 05-13-2025 [facility] Start: 05-13-2025 Hospital admission, emergency, from emergency room, medical nature [facility] Start: 05-13-2025 [facility] Start: 05-13-2025 Bacteria identified in Blood by Culture Blood Culture [facility] Start: 05-13-2025 Bacteria identified in Urine by Culture Urine Culture [facility] Start: 05-13-2025 Urine culture [facility] Start: 05-13-2025 End: 05-14-2025 [facility] Start: 05-13-2025 Patient referral to dietitian [facility] Start: 05-02-2025 Carcinoembryonic Ag [Mass/volume] in Serum or Plasma [facility] Start: 05-02-2025 Cobalamin (Vitamin B12) [Mass/volume] in Serum or Plasma [facility] Start: 05-02-2025 Ferritin [Mass/volume] in Serum or Plasma [facility] Start: 05-02-2025 Iron and Iron binding capacity panel - Serum or Plasma [facility] Start: 05-02-2025 Serum inorganic phosphate measurement [facility] Start: 05-02-2025 [facility] Start: 05-02-2025 Vital signs measurements [facility] Start: 04-18-2025 [facility] Start: 04-18-2025 Vital signs measurements [facility] Start: 04-04-2025 [facility] Start: 04-04-2025 Vital signs measurements [facility] Start: 03-24-2025 Patient encounter procedure Medical; [facility] Start: 24-Mar-2025 08:20-04:00 JOELLE Chow App[facility]ment [facility] Start: 03-21-2025 Carcinoembryonic Ag [Mass/volume] in Serum or Plasma [facility] Start: 03-21-2025 [facility] Start: 03-21-2025 Venous catheter care management [facility] Start: 03-21-2025 Vital signs measurements [facility] Start: 03-21-2025 [facility] Start: 03-20-2025 Anesthesia access central venous circulation ANESTH VASCULAR ACCESS [facility] Start: 03-20-2025 Insj tunneled ctr vad w/subq port age 4 yr/> INSERT TUNNELED CV CATH [facility] Start: 03-20-2025 Patient discharge [facility] Start: 03-17-2025 25 hydroxy includes fractions if performed [employer] Start: 03-17-2025 Assay of free thyroxine [employer]. Start: 03-17-2025 Assay of thyroid stimulating hormone tsh [employer]. Start: 03-17-2025 Comprehensive metabolic panel [employer] Start: 03-17-2025 Lipid panel [employer] Start: 03-17-2025 Blood count complete auto&auto difrntl wbc [employer] Start: 03-17-2025 Nursing evaluation of patient and report Medical; Nurse visit - [facility]V. [facility] Start: 17-Mar-2025 09:00-04:00 NURSE, FLOAT Appointment Request [employer] Start: 03-09-2025 Patient referral [facility] Work Phone: Start: 02-21-2025 End: 02-21-2025 Patient encounter procedure 02/21/2025 1:45 PM EDT Office Visit Division of Colon & Rectal Surgery [address] [phone] Sachi Rosas MBBS [address] [phone] Division of Colon & Rectal Surgery Start: 02-01-2025 Patient encounter procedure Medical; Hospital F/U - [facility] 01/28, R hemicolectomy sec. to colon ca [facility] Start: 01-Feb-2025 14:00-04:00 JOELLE Chow Appointment Request [employer] Start: 01-23-2025 End: 01-23-2025 Evaluation and management of inpatient 01/23/2025 7:15 AM EDT - 01/23/2025 12:15 PM EDT Surgery CCCT PERIOP [address] [place] [address] Sachi Rosas MBBS [address] [phone] COLECTOMY PARTIAL ROBOTIC XI RIGHT [facility]CT PERIOP Comment on above: COLECTOMY PARTIAL ROBOTIC XI RIGHT Start: 01-23-2025 End: 01-23-2025 Laparoscopy colectomy partial w/anastomosis COLECTOMY PARTIAL ROBOTIC XI RIGHT Malignant neoplasm of ascending colon 01/23/2025 7:15 AM EDT [facility] Start: 01-23-2025 Evaluation and management of inpatient 01/23/2025 5:15 AM EDT Hospital Encounter [facility] [address] [place] [address] Sachi Rosas MBBS [address] [place] [address] Malignant neoplasm of ascending colon [facility] PERIOP Comment on above: Malignant neoplasm of ascending colon Start: 01-16-2025 End: 01-16-2025 Anesthesia consultation 01/16/2025 2:00 PM EDT Pre-Operative Nurse Assessment [facility] [address] [place] [address] Sachi Rosas MBBS [address] [place] [phone] [facility] Start: 01-03-2025 End: 01-03-2025 Telemedicine consultation with patient 01/03/2025 7:45 AM EST Telemedicine Division of Colon & Rectal Surgery [address] [place] [phone] Sachi Rosas MBBS [address] [place] [address] Division of Colon & Rectal Surgery Start: 12-31-2024 End: 12-31-2024 Patient encounter procedure [facility] Start: 12-06-2024 End: 12-06-2025 CT Chest W contrast IV CT CHEST WITH CONTRAST Imaging Routine Malignant neoplasm of ascending colon Expected: 12/06/2024, Expires: 12/06/2025 [facility] Comment on above: Expected: 12/06/2024, Expires: Start: 12-06-2024 End: 12-06-2025 MR Abdomen WO and W contrast IV MRI ABDOMEN WITH AND WITHOUT CONTRAST Imaging Routine Malignant neoplasm of ascending colon Expected: 12/06/2024, Expires: 12/06/2025 [facility] Comment on above: Expected: 12/06/2024, Expires: Start: 2024 RSV VACCINE (1 - 1-dose 75+ series) RSV VACCINE (1 - 1-dose 75+ series) [facility] Start: 08-04-2024 Patient encounter procedure Medical; EXTENDED RTN - 6 mo rtn [facility] Start: 04-Aug-2024 13:10-04:00 JOELLE Chow Appointment [facility] Start: 07-05-2024 Assay of thyroid stimulating hormone tsh TSH (THYROID STIMULATING HORMONE) (37014) Start: 05-Jul-2024 08:27-04:00 Request [employer] Start: 07-05-2024 Lipid panel LIPID PANEL (01332) Start: 05-Jul-2024 08:25-04:00 Request [employer] Start: 07-05-2024 Comprehensive metabolic panel CMP w/ GFR* (75257) Start: 05-Jul-2024 08:25-04:00 Request [employer]; [employer] Start: 07-05-2024 25 hydroxy includes fractions if performed Vitamin D, 25-Hydroxy, LC/MS/MS ([id number]) Start: 05-Jul-2024 08:25-04:00 Request [employer]; [employer]. Start: 07-05-2024 Nursing evaluation of patient and report Medical; Nurse visit - Fasting Labs - MJP [facility] Start: 05-Jul-2024 08:20-04:00 NURSE, FLOAT Appointment Request [employer] Start: 07-03-2024 COVID-19 VACCINE ( season) COVID-19 VACCINE ( season) [facility] Start: 07-03-2024 Influenza vaccination INFLUENZA VACCINE (#1) [facility] Start: 06-28-2024 Assay of thyroid stimulating hormone tsh TSH (THYROID STIMULATING HORMONE) (67566) Start: 28-Jun-2024 Request [employer] [employer] Start: 06-27-2024 End: 06-27-2024 Ecg routine ecg w/least 12 lds w/i&r ELECTROCARDIOGRAM WITH INTERPRETATION ([id number]) Date: 27-Jun-2024 Comments: Sinus rhythm with occasional supraventricular complexes. [employer] Comment on above: Sinus rhythm with occasional supraventri cular complexes. Start: 06-27-2024 Patient encounter procedure Medical; PHYSICAL - Medicare wellness [employer] Start: 27-Jun-2024 14:00-04:00 JOELLE Cohw Appointment Request [employer] Start: 06-27-2024 Screening digital breast tomosynthesis bi Mammogram 3D (tomosynthesis), bilateral ([id number]) Start: 27-Jun-2024 Intent [employer] Start: 06-02-2024 25 hydroxy includes fractions if performed Vitamin D, 25-Hydroxy, LC/MS/MS (72506) Start: 02-Jun-2024 Request [email or web address]; [employer] Start: 06-02-2024 Comprehensive metabolic panel CMP w/ GFR* (29323) Start: 02-Jun-2024 Request [employer] Start: 06-02-2024 Lipid panel LIPID PANEL (37960) Start: 02-Jun-2024 Request [employer] Start: 06-02-2024 Nursing evaluation of patient and report Medical; Nurse visit - Medicare wellness fasting labs MJP [employer] Start: 02-Jun-2024 08:40-04:00 NURSE, FLOAT Appointment Request [employer] Start: 02-04-2024 Patient encounter procedure [employer] Start: 11-23-2023 Ecg routine ecg w/least 12 lds w/i&r ELECTROCARDIOGRAM WITH INTERPRETATION (32731) Start: 23-Nov-2023 Intent Comments: Normal sinus rhythm [employer] Comment on above: Normal sinus rhythm Start: 11-23-2023 Blood count complete auto&auto difrntl wbc CBC, PLATELETS & AUT DIFF (F) (81481) Start: 23-Nov-2023 10:46 Request [email or web address]; [employer] Start: 11-23-2023 Comprehensive metabolic panel CMP w/ GFR* ([id number]) Start: 23-Nov-2023 10:46 Request [employer]; [employer]. Start: 11-23-2023 Admission to same day surgery [facility] [facility]; EXTENDED RTN - preop etta ortho R knee (surgery 12/21 [employer] Start: 23-Nov-2023 10:20 JOELLE Chow Appointment Request [employer] Start: 07-27-2023 Provider Instructions for Treatment [facility] HM Issues, 65+ female Indication: Medicare annual wellness visit, subsequent Start: 27-Jul-2023 Instruction Type: Provider Instructions for Treatment [employer]; [employer]. Start: 1999 Pneumococcal vaccination PNEUMOCOCCAL VACCINE SERIES (1 of 1 - PCV) [facility] Start: 1999 Zoster vaccine hzv live for subcutaneous use ZOSTER (SHINGLES) VACCINE (1 of 2) [facility] Start: 1989 Lipid panel LIPID SCREENING [facility] Start: 1989 Screening for malignant neoplasm of breast MAMMOGRAM SCREENING DISCUSSION [facility] Start: 1970 Screening for malignant neoplasm of cervix CERVICAL CANCER SCREENING DISCUSSION [facility] Start: 1968 Third diphtheria, tetanus and acellular pertussis (DTaP) vaccination TDAP (ADULT) [facility] Start: 1949 Hepatitis C screening HEPATITIS C VIRUS SCREENING [facility] Start: 1949 Screening for osteoporosis DEXA SCAN DISCUSSION [facility] Start: 1949 Tetanus vaccination TETANUS [facility] Alanine aminotransfe rase [Enzymatic activity/volume] in Serum or Plasma [facility] Albumin [Mass/volume ] in Serum or Plasma [facility] Alkaline phosphatase [Enzymatic activity/volume] in Serum or Plasma [facility] Anion gap in Serum o r Plasma [facility] Bilirubin, total measurement [facility] BUN/Creatinine ratio [facility] Calcium [Mass/volume ] in Serum or Plasma [facility] Carbon dioxide, tota l [Moles/volume] in Central venous blood [facility] Carcinoembryonic Ag [Mass/volume] in Serum or Plasma [facility] Carcinoembryonic Ag [Mass/volume] in Serum or Plasma [facility] Carcinoembryonic Ag [Mass/volume] in Serum or Plasma [facility] CBC W Auto Different ial panel - Blood [facility] Cobalamin (Vitamin B 12) [Mass/volume] in Serum or Plasma [facility] Comprehensive metabo lic 2000 panel - Serum or Plasma [facility] Creatinine [Mass/vol ume] in Serum or Plasma [facility] CT Abdomen and Pelvi s W contrast IV [facility] End: 12-31-2024 CT Chest W contrast IV [facility] Comment on above: 1 Occurrences starting 12/31/2024 until 12/31/2024 Ecg routine ecg w/le ast 12 lds w/i&r FL ECG ROUTINE ECG W/LEAST 12 LDS W/I&R FL - OFFICE PERFORMED Routine Preop exam for internal medicine Malignant neoplasm of ascending colon Essential hypertension Mixed hyperlipidemia Ordered: 01/10/2025 [facility] Comment on above: Ordered: 01/10/2025 Erythrocyte mean corpuscular volume determination [facility] Ferritin [Mass/volum e] in Serum or Plasma [facility] Glucose [Mass/volume ] in Serum or Plasma [facility] Hematocrit [Volume Fraction] of Blood [facility] Hemoglobin [Mass/vol ume] in Blood [facility] Iron [Mass/mass] in Unspecified specimen [facility] Iron and Iron bindin g capacity panel - Serum or Plasma [facility] Iron saturation [Mas s Fraction] in Serum or Plasma [facility] Lactic acid measurement [facility] Leukocytes [#/volume ] in Blood [facility] Magnesium measurement [facility] Mean corpuscular hemoglobin concentration determination [facility] Mean corpuscular hemoglobin determination [facility] Measurement of renal function [facility] End: 12-31-2024 MR Abdomen WO and W contrast IV [facility] Comment on above: 1 Occurrences starting 12/31/2024 until 12/31/2024 Neutrophil count [facility] Neutrophil percent differential count [facility] Patient referral [facility] Work Phone: Platelets [#/volume] in Blood [facility] Potassium measurement [facility] Red blood cell count [facility] Red cell distributio n width determination [facility] Serum chloride measurement [facility] Serum inorganic phosphate measurement [facility] Sodium measurement [facility] SURG PATH REQUEST [facility] Comment on above: Release Upon Ordering for 1 Occurrences starting 01/23/2025, 1 completed Total iron binding capacity measurement [facility] Total protein measurement [facility] Urea nitrogen [Mass/volume] in Serum or Plasma [facility] Immunizations Immunization Date Immunization Notes Care Provider [facility] 06-18-2020 diphtheria, tetanus toxoids and acellular pertussis vaccine, unspecified formulation Shu Chow PA-C Work Phone: [email or web address]; [employer] 10-02-2017 influenza, injectabl e, quadrivalent, contains preservative Shu Chow PA-C Work Phone: [email or web address]; [employer]. 10-03-2015 ADMINISTRATION OF INFLUENZA VIRUS VACCINE (G0008) Shu Chow PA-C Work Phone: [email or web address]; [employer]. 10-03-2015 influenza, seasonal, injectable Shu Chow PA-C Work Phone: [email or web address]; [employer] Comment on above: Site: Deltoid (Left) VIS Given: * Inactivated Influenza (06/08/2015) 10-02-2015 influenza virus vacc ine, unspecified formulation Shu Chow PA-C Work Phone: [email or web address]; [employer]. 04-04-2015 pneumococcal polysaccharide vaccine, 23 valent Shu Chow PA-C Work Phone: [email or web address]; [employer] Comment on above: Site: Deltoid (Right )VIS Given: * Pneumococcal Polysaccharide (PPSV23) (08/07/09) 10-04-2014 influenza, seasonal, injectable Shu Chow PA-C Work Phone: [facility]; [facility] Comment on above: Site: Deltoid (Right )VIS Given: * Influenza, Inactivated ([id number]) 10-04-2014 pneumococcal conjuga te vaccine, 13 valent Shu Chow PA-C Work Phone: [facility]; [facility] Comment on above: Site: Deltoid (Left) VIS Given: * Pneumococcal Conjugate (PCV13) (12/29/12) Payers Date Payer Category Payer Medicare [id number] 2025 Self-pay 2024 Medicare (Managed Care) MEDICARE [employer] PPO [id number] 2024 Private Health Insurance [id number] 1949 Unknown [id number] 2.840.1.823353.3.579.2. 594 1949 Unknown [id number] 2.840.1.830433.3.579.2. 594 1949 Unknown [id number] 2.840.1.177470.3.579.2. 594 1949 Unknown [id number] 2.16.840.1.060876.3.579.2. 594 1949 Unknown [id number] 2.16.840.1.880983.3.579.2. 594 1949 Unknown [id number] 2.16.840.1.222433.3.579.2. 594 1949 Unknown [id number] 2.16.840.1.713691.3.579.2. 594 1949 Unknown [id number] 2.16.840.1.106177.3.579.2. 594 1949 Unknown [id number] 2.16.840.1.972741.3.579.2. 594 1949 Unknown [id number] 2.16.840.1.161742.3.579.2. 594 1949 Unknown [id number] 2.16.840.1.277494.3.579.2. 594 1949 Unknown [id number] 2.16.840.1.058460.3.579.2. 651 1949 Unknown [id number] 2.16.840.1.475362.3.579.2. 651 1949 Unknown [id number] 2.16.840.1.260586.3.579.2. 651 1949 Unknown [id number] 2.16.840.1.977171.3.579.2. 651 Medicare [id number] Unknown Unknown [id number] 2.16.840.1.126673.3.579.2. 462 Unknown [id number] 2.16.840.1.355255.3.579.2. 462 Unknown [id number] 2.16.840.1.603496.3.579.2. 462 Unknown [id number] 2.16.840.1.112384.3.579.2. 462 Unknown [id number] 2.16.840.1.212747.3.579.2. 462 Unknown [id number] 2.840.1.281727.3.579.2. 462 Unknown [id number] 2.840.1.951177.3.579.2. 462 Unknown [id number] 2.840.1.975303.3.579.2. 462 Unknown [id number] 2.840.1.624663.3.579.2. 462 Unknown [id number] 2.840.1.990920.3.579.2. 462 Unknown [id number] 2.840.1.573351.3.579.2. 462 Unknown [id number] 2.840.1.739652.3.579.2. 462 Unknown [id number] 2.840.1.305240.3.579.2. 462 Unknown [id number] 2.840.1.733546.3.579.2. 462 Unknown [id number] 2.840.1.790849.3.579.2. 462 Unknown [id number] 2.840.1.368941.3.579.2. 462 Unknown [id number] 2.840.1.925220.3.579.2. 462 Unknown [id number] 2.840.1.805919.3.579.2. 462 Unknown [id number] 2.840.1.717124.3.579.2. 462 Unknown [id number] 2.840.1.531558.3.579.2. 462 Unknown [id number] 2.840.1.925233.3.579.2. 462 Unknown [id number] 2.840.1.406091.3.579.2. 462 Unknown [id number] 2.16.840.1.914658.3.579.2. 462 Unknown [id number] 2.16.840.1.210948.3.579.2. 462 Unknown [id number] 2.16.840.1.735576.3.579.2. 462 Unknown [id number] 2.16.840.1.287872.3.579.2. 462 Unknown [id number] 2.16.840.1.065304.3.579.2. 462 Social History Date Type Detail Facility Start: 12-06-2024 End: 02-21-2025 Caffeine Use Caffeine Use [facility] Marital status: Marital status: ; . [facility] Tobacco Use: Tobacco Use: ; F ormer smoker. [facility]; [facility] Start: 1950 Female [facility] Start: 12-06-2024 End: 05-13-2025 Ex-smoker [facility] Work Phone: End: 12-06-2019 History of tobacco use Current smoker [facility] End: 12-06-2019 History of tobacco use Cigarette Smoker [facility] Start: 12-06-2024 Tobacco use and exposure Smokeless tobacco non-user [facility] Start: 12-06-2024 End: 01-24-2025 Alcoholic beverage intake Current drinker of alcohol (finding) [facility] Start: 12-06-2024 End: 02-21-2025 Tobacco use panel [facility] Adolescent depressio n screening assessment 0 [facility] Start: 12-06-2024 Alcohol Comment wine twice per year [facility] Start: 1950 Sex assigned at Not on file [facility] Start: 11-22-2024 Sex Female (finding) [facility] Start: 01-01-2025 Gender identity Identifies as female gender (finding) [facility] Start: 01-01-2025 Sexual orientation Heterosexual (timothy chen) [facility] How often to you hav e a drink containing alcohol? Never [facility] Start: 02-21-2025 Alcoholic beverage intake Ex-drinker (finding) [facility] Start: 03-18-2021 Tobacco Use Tobacco Use [facility] Tobacco smoking consumption unknown [facility] Work Phone: NEGATED: Highlighted row No Social History Information Available No Social History Information Available [employer]; [employer] [facility] Work Phone: Medical Equipment Procedure Code Equipment Code Equipment Origin al Text Equipment Identifier Dates Insertion, vascular access port ([id number]) Vascular port/catheter [id number] FDA Start: 03-20-2025 Goals Date Patient Goal Desired Activity /State Functional Status Date Assessment Result Facility 05-15-2025 Functional status Ambulates;Bath room Privilege [facility] Work Phone: 01-23-2025 Are you deaf, or do you have serious difficulty hearing No 01/23/2025 3:57 PM Yoav Liang, OMER No [facility] 01-23-2025 Are you blind, or do you have serious difficulty seeing, even when wearing glasses No 01/23/2025 3:57 PM Yoav Liang RN No [facility] 01-23-2025 Do you have serious difficulty walking or climbing stairs No 01/23/2025 3:57 PM Yoav Liang, OMER No [facility] 01-23-2025 Do you have difficul ty dressing or bathing No 01/23/2025 3:57 PM Yoav Liang, OMER No [facility] 01-23-2025 Because of a physica l, mental, or emotional condition, do you have difficulty doing errands alone such as visiting a physician's office or shopping No 01/23/2025 3:57 PM EDT Yoav Schwartz RN No [facility] Mental Status Date Assessment Result Facility 05-15-2025 Cognitive function Voice/Name [facility] Work Phone: 05-13-2025 Cognitive function Level Of Cons ciousness Awake;Alert;Appropriate;Fol lows Commands [facility] Work Phone: 03-20-2025 Cognitive function Voice/Name [facility] Work Phone: 01-23-2025 Because of a physica l, mental, or emotional condition, do you have serious difficulty concentrating, remembering, or making decisions No 01/23/2025 3:57 PM EDYoav Zacarias RN No [facility] Clinical Notes 12-06-2024 to 08-22-2025 Note Date & Type Note Facility 08-22-2025 Progress note [facility] 07-26-2025 Progress note [facility] 07-26-2025 Progress note Note Date/Time July 26, 2025 2:07pm [facility] [address] [place] [address]. [address] [place] [address] OFFICE VISIT Date of Service: 07/26/25 MR#: [id number] Acct: [id number] Name: JESSIKA CARRILLO Rep #: [id number] : 1950 Provider: Dr. Gabriel Brown MD Age/Sex: 74/F Location: [facility] Status: Signed HPI HPI History of Present Illness Details: Pleasant 74-year-old lady with no previous cardiac history but a history of hypertension who has recently been diagnosed with adenocarcinoma of the colon. Patient is being followed up by oncology and suffered a urinary tract infection also received chemotherapy and then presented to the hospital with diarrhea decreased appetite dizziness and syncope and was diagnosed as having new onset atrial flutter. She was given antibiotics in the hospital treated with hydration and an echocardiogram was ordered. It demonstrated an ejection fraction of 60% the atrial sizes were normal the valvular apparatus was noted jenn normal. She was placed on Eliquis as well as beta-leonardo the dose of the beta-leonardo was reduced. She is here today for a follow-up visit she still gets short of breath when she exerts herself. She has not had any dizziness or diaphoresis near syncope or syncope she still says that she has some palpitations. EKG on admission demonstrated atrial flutter with a variable block and her EKG here today demonstrates a normal sinus rhythm with a rate of 77 bpm. Intake Vital Signs 05/14/25 12:40 07/25/25 10:41 07/26/25 13:30 Height 5 ft 1 in 5 ft 1 in 5 ft 1 in Weight: 185 lb BMI 34.9 BP 149/91 H Blood Pressure Location Lt brachial Position Sitting Respiration 16 Pulse 78 Pulse Source Monitor Intake Visit Reasons: NEW ONSET AFIB (GERALDO) Yoke Setter Required: No Accompanied by: Daughter Is patient in pain?: No Allergies No Known Allergies Allergy (Verified 07/26/25 13:35) Medications ?Medication ?Instructions ?Recorded ?Confirmed ?Type metoprolol succinate 50 mg 50 mg PO DAILY 05/13/25 History tablet,extended release 24 hr dicyclomine 20 mg tablet 20 mg PO .QID PRN diarrhea # 40 tabs 05/15/25 07/26/25 Rx losartan 50 mg tablet 50 mg PO DAILY #30 tabs 05/0207/26/25 Rx ondansetron HCl 8 mg tablet 8 mg PO Q8H PRN nausea and 05/15/25 07/25/25 Rx vomiting #30 tabs apixaban 5 mg tablet (Eliquis) 5 mg PO BID 05/30/25 History loperamide 2 mg capsule (Imodium 2 mg PO Q6H PRN 05/3007/26/25 History A-D) Tumeric PO 06/23/25 07/26/25 History calcium 600 mg (as 1 tab PO QDAY 06/23/2507/26 History carbonate)-vitamin D3 10 mcg (400 unit) tablet (Calcium with Vitamin D) multivitamin 1 tab PO QDAY 06/23/2507/26 History Ejection fraction %: 60 Have you fallen in the past year?: Yes PFSH Medical History NELSON (obstructive sleep apnea) Obesity Vitamin D deficiency Dizziness New onset a-fib Abnormal brain CT Neutropenia Syncope and collapse Lung nodules Colon cancer Back pain Atrial flutter Anemia Diarrhea due to drug Encounter for chemotherapy management Loss of hearing Asthma Encounter for education Regional lymph node metastasis present Degenerative joint disease Arthritis High cholesterol History of Meniere's disease Hypertension Surgical History History of hysteroscopy History of colectomy History of total right knee replacement Hx of colonoscopy Family History Father Heart disease Aunt Breast cancer Social History Smoking Status: Former smoker Tobacco: How many years used: 5 alcohol intake: never substance use type: does not use ROS Const Const: Positive for fatigue; Negative for weakness, daytime sleepiness or difficulty sleeping ENT ENT: Negative for dizziness or Nosebleed/epistaxis Cardio Chest Pain: No Palpitations: Yes feels like its: fast Edema: None Resp Respiratory: Positive for SOB with activity; Negative for SOB at rest, SOB orthopnea\\SOB lying down or Cough GI GI: Negative nausea, vomiting or heartburn Neuro Neuro: Negative for dizziness, lightheadedness, near syncope or weakness Endo Endo: Positive for fatigue Cardiology Exam Const Appearance: cooperative, healthy appearing, no acute distress, well developed and well groomed Nutritional Appearance: average body habitus and well nourished Orientation: alert, awake and oriented x3 Head Head: normal to inspection, normocephalic and atraumatic Ears: hearing grossly normal bilaterally and external ears normal Nose: external nose normal, nares normal, nasal mucous membranes and turbinates normal, septum normal and no nasal discharge Face and Sinus: face symmetric Mouth: oral mucosae normal, tongue normal, oropharynx normal and moist mucous membranes Teeth and gingiva: dentition normal Throat: posterior oropharynx normal, tonsils normal and uvula midline Eyes General: appearance normal, both eyes and all related structures Eyelids: eyelids normal Conjunctivae: conjunctivae normal Pupils: PERRL, normal by confrontation and accommodation normal EOM: EOM intact bilaterally Neck Neck: normal visual inspection, trachea midline and no JVD JVD: +5 Carotids: normal carotid upstroke and bounding pulses Chest Chest inspection: normal inspection of the chest, symmetric chest movement and normal respiratory effort Auscultation: Bilateral: Clear to Auscultation Cardio Palpation: normal PMI Rate: regular rate Rhythm: regular rhythm Heart sounds: S1 normal, S2 normal and normal, physiologic split S2; Negative rub, gallop or murmur GI GI: normal to inspection, soft, no hepatosplenomegaly and bowel sounds present Neuro General: patient alert, patient awake, patient oriented x3, gait normal, moves all extremities and no focal sensory deficit Skin Skin: no rashes or lesions noted Extremities Pulses: Normal: Right Femoral Pulse, Left Femoral Pulse, Right Dorsalis Pedis Pulse, Left Dorsalis Pedis Pulse, Right Posterior Tibial Pulse, Left Posterior Tibial Pulse, Right Radial Pulse and Left Radial Pulse Lower Extremity Edema: None: Bilateral Musculoskel Musculoskeletal: No joint tenderness Psych Psychological: normal affect Supplemental Info Supplemental Information Echocardiogram 06/05/25 Interpretation Summary The left ventricular ejection fraction is 60 %. Normal LV size. Structurally normal valves. The global longitudinal strain is borderline abnormal. The global longitudinal strain = -16% (abnormal). Diagnostics: 2 Electrocardiogram Echocardiogram Chest X-Ray Past Visits: Cardiology Visit Today Assessment and Plan Assessment and Plan (1) Atrial flutter: Status: Acute Plan: Recent onset atrial flutter. The above was likely precipitated by her illness. At this time it appears to have resolved. She does have a [id number] score of3 regardless. She is on anticoagulation. I think that at this time we can obtain a 14-day event monitor and if no evidence of atrial tachyarrhythmia or atrial fibrillation is noted we will discontinue the Eliquis and continue the beta-leonardo and the losartan. She will be seen again in a few months and at that time if she has not had any recurrence of her atrial fibrillation flutter then we may be able to discontinue the anticoagulation as well. Have explained the above to her and her daughter they understand. (2) Hypertension: Status: Chronic Comment: controlled with med Plan: Her blood pressure appears to be fairly well-controlled she will continue the losartan as well as the beta-leonardo. No other changes will be made. Her echocardiogram did not demonstrate any evidence of LVH. Orders: Orders 12 Lead EKG performed by [facility] Today I48.91 - Unspecified atrial fibrillation, I48.92 - Unspecified atrial flutter, R42 - Dizziness and giddiness, R55 - Syncope and collapse 14 Day Event Recorder Preventi Today I48.92 - Unspecified atrial flutter Plan Details Follow Up: 4 Months (sd) Coding Level of Care Code Off vis,new,level 4 Diagnoses Atrial flutter I48.92 Hypertension I10 Coding Level of Care Code Off vis,new,level 4 Diagnoses Atrial flutter I48.92 Hypertension I10 Clinical Quality Measures Falls Risk Screening/Assistive Devices Have you fallen in the past year?: Yes Cardiac Ejection fraction %: 60 07/26/25 1410 <Electronically signed by Marty Shannon> Date _ Marty Brown MD [facility] Signature: Date (if applicable) CC: JUVENTINO Pérez ~ [employer] Work Phone: 1(197) 295-626409-23-2025 Progress [facility] [address] [address] OFFICE VISIT Date of Service: 07/25/25 1039 MR#: [id number] Acct: [id number] Name: JESSIKA CARRILLO Perry Rep #: [id number] : 1950 From: New peterson MD Age/Sex: 74/F Location: [facility] [place] Status: Signed HPI Subjective Date of Service 07/25/25 Chief Complaint Colon cancer on treatment History of Present Illness 74-year-old female with no family of colon cancer had screening colonoscopy August 17, 2024 by at [facility] with 2 sessile polypoid lesions were found, [...] left kidney. Patient was then referred to [facility] for further management. December 31, 2024 MRI [...] January 23, 2025 robotic right hemicolectomy at [facility] by Dr. Antonio. Pathology: Right colon terminal [...] isnot present. No further testing was indicated. May 15, 2025 brain MRI: Following a syncopal episode: IMPRESSION: 1. There is an area of abnormal signal on the gradient echo images corresponding to the coarse calcifications seen in the left parietal lobe, posteriorly. There is no associated vasogenic edema or contrast enhancement. This islikely a chronic finding, of questionable clinical significance. 2. There are no foci of abnormal intracranial contrast enhancement or vasogenicedema to suggest metastatic disease. 3. Findings consistent with chronic ischemic white matter disease. Treatment summary and response: January 23, 2025 robotic right hemicolectomy at [facility]. March 21, 2025 adjuvant modified FOLFOX 6 PFSH Medical History NELSON (obstructive sleep apnea) Obesity Vitamin D deficiency Dizziness New onset a-fib Abnormal brain CT Neutropenia Syncope and collapse Lung nodules Colon cancer Back pain Atrial flutter Anemia Diarrhea due to drug Encounter for chemotherapy management Loss of hearing Asthma Encounter for education [facility] lymph node metastasis present Degenerative joint disease Arthritis High cholesterol History of Meniere's disease Hypertension Surgical History History of hysteroscopy History [...] and no addt'l complaints, except as documented, diarrheaand other Details: diarrhea is manageable with diet modification and Imodium ; Denies dysphagia, hematochezia, melena or nausea Genitourinary Genitourinary: Reports systems reviewed and no [...] addt'l complaints, exceptas documented Intake Vital Signs 06/27/25 09:43 07/25/25 10:40 07/25/25 10:41 Height 5 ft 1 in 5 ft 1 in 5 ft 1 in Weight: 81.76 kg BMI 34.0 BP 150/85 H Blood Pressure Location Rt brachial Position Sitting Respiration 16 Pulse 70 Pulse Source Monitor Temp 97.7 F L Temperature Source Temporal Artery Pulse Oximetry (%) 97 Oxygen Delivery Method room air Intake Is patient in pain?: No Allergies No Known Allergies Allergy (Verified 07/25/25 10:41) Medications ?Medication ?Instructions ?Recorded ?Confirmed ?Type metoprolol succinate 50 mg 50 mg PO DAILY 05/13/25 History tablet,extended release 24 hr dicyclomine 20 mg tablet 20 mg PO .QID PRN diarrhea # 40 tabs 05/15/25 07/25/25 Rx losartan 50 mg tablet 50 mg PO DAILY #30 tabs 05/0207/25/25 Rx ondansetron HCl 8 mg tablet 8 mg PO Q8H PRN nausea and 05/15/25 07/25/25 Rx vomiting #30 tabs apixaban 5 mg tablet (Eliquis) 5 mg PO BID 05/30/25 History loperamide 2 mg capsule (Imodium 2 mg PO Q6H PRN 05/3007/25/25 History A-D) Tumeric PO 06/23/25 07/25/25 History calcium 600 mg (as 1 tab PO QDAY 06/23/2507/25 History carbonate)-vitamin D3 10 mcg (400 unit) tablet (Calcium with Vitamin D) multivitamin 1 tab PO QDAY 06/23/2507/25 History Have you fallen in the past year?: No Central Venous Access Central Venous Access: Yes Port/PICC: Port CBC, CMP July 25, 2025 reviewed in EMR Exam Physical Exam Narrative ECOG 0-1 Const [...] no focal motor deficits Coordination / Balance: [id number]-ad-pybu test normal Speech: speech normal Gait (Neuro): normal gait Psych mental status grossly normal Coding Level of Care Code Off vis,est,level 4 Exam Problem Focused Diagnoses Malignant neoplasm of ascending colon C18.2 Colon location: ascending Regional lymph node metastasis present C77.9 Lung nodules R91.8 Anemia D64.9 Diarrhea due to drug K52.1 Assessment and Plan Assessment and Plan (1) Colon cancer: Status: Chronic Qualifiers: Colon location: ascending Qualified Code(s): C18.2 - Malignant neoplasmof ascending colon (2) Regional lymph node metastasis present: Status: Chronic (3) Lung nodules: Status: Chronic (4) Anemia: Status: Acute (5) Diarrhea due to drug: Status: Resolved Plan 74-year-old female with high risk stage III colon cancer (T3, N2, M0), status post robotic assistedright hemicolectomy December 2024 at [facility]. There are 2 subcentimeter too small to characterize lung nodules that will be followedup. Started adjuvant modified FOLFOX March 2025 with diarrhea being main side effect experienced manageable after fluorouracil leucovorin boluses were laminated. Chronic comorbid conditions: Hypertension, dyslipidemia, DJD, obesity and history of M?ni?re's disease. Recommendations: Based on NCCN guidelines and up-to-date review of treatment of stage III high riskcolon cancer with intent to cure advise: 1. Continue 6 months adjuvant modified FOLFOX 6. She was dose adjusted by eliminating 5-FU bolus asof cycle 5 due to diarrhea. 2. Supportive treatment with antiemetics and Imodium 3. 2 lung nodules will be followed up with CT of the chest, abdomen and pelvis at the end of treatment. 4. Will follow CEA to normalization, a preoperative CEA from outside was not found. 5. Anemia of cancer and chemotherapy, no evidence for nutritional deficiencies of iron or B12 Patient was seen with her daughter, impression and plan discussed. [place] MD [employer], [facility] Divisions of Medical Oncology & Hematology Department of Internal Medicine [place] [phone] This note was generated using a voice [...] you fallen in the past year?: No 07/25/25 1056 dharmesh PIRES> Date _ [place] MD [facility] Signature: Date (if applicable) CC: Dr. [place] MD ~ [facility]09-09-2025 [facility] [address] [address] OFFICE VISIT Date of Service: 07/11/25 0937 MR#: [id number] Acct: [id number] Name: JESSIKA CARRILLO Rep #: [id number] : 1950 From: New peterson MD Age/Sex: 74/F Location: [facility] Status: Signed HPI Subjective Date of Service 07/11/25 Chief Complaint Colon cancer on treatment History of Present Illness 74-year-old female with no family of colon cancer had screening colonoscopy August 17, 2024 by at [facility] with 2 sessile polypoid lesions were found, [...] left kidney. Patient was then referred to [facility] for further management. December 31, 2024 MRI [...] January 23, 2025 robotic right hemicolectomy at [facility] by Dr. Antonio. Pathology: Right colon terminal [...] isnot present. No further testing was indicated. May 15, 2025 brain MRI: Following a syncopal episode: IMPRESSION: 1. There is an area of abnormal signal on the gradient echo images corresponding to the coarse calcifications seen in the left parietal lobe, posteriorly. There is no associated vasogenic edema or contrast enhancement. This islikely a chronic finding, of questionable clinical significance. 2. There are no foci of abnormal intracranial contrast enhancement or vasogenicedema to suggest metastatic disease. 3. Findings consistent with chronic ischemic white matter disease. Treatment summary and response: January 23, 2025 robotic right hemicolectomy at [facility]. March 21, 2025 adjuvant modified FOLFOX 6 PFSH Medical History NESLON (obstructive sleep apnea) Obesity Vitamin D deficiency Dizziness New onset a-fib Abnormal brain CT Neutropenia Syncope and collapse Lung nodules Colon cancer Back pain Atrial flutter Anemia Diarrhea due to drug Encounter for chemotherapy management Loss of hearing Asthma Encounter for education Regional lymph node metastasis present Degenerative joint disease Arthritis High cholesterol History of Meniere's disease Hypertension Surgical History History of hysteroscopy History [...] and no addt'l complaints, except as documented, diarrheaand other Details: diarrhea is manageable with diet modification and Imodium ; Denies dysphagia, hematochezia, melena or nausea Genitourinary Genitourinary: Reports systems reviewed and no [...] addt'l complaints, exceptas documented Intake Vital Signs 06/27/25 09:43 07/11/25 09:38 07/11/25 09:46 Height 5 ft 1 in 5 ft 1 in 5 ft 1 in Weight: 81.42 kg BMI 33.9 BP 125/81 H Blood Pressure Location Lt brachial Position Sitting Respiration 16 Pulse 78 Pulse Source Monitor Temp 98.2 F Temperature Source Temporal Artery Pulse Oximetry (%) 95 Oxygen Delivery Method room air Intake Is patient in pain?: No Allergies No Known Allergies Allergy (Verified 07/11/25 09:43) Medications ?Medication ?Instructions ?Recorded ?Confirmed ?Type metoprolol succinate 50 mg 50 mg PO DAILY 05/13/2507/27 History tablet,extended release 24 hr dicyclomine 20 mg tablet 20 mg PO .QID PRN diarrhea # 40 tabs 05/15/25 07/11/25 Rx losartan 50 mg tablet 50 mg PO DAILY #30 tabs 05/0207/11/25 Rx ondansetron HCl 8 mg tablet 8 mg PO Q8H PRN nausea and 05/15/25 07/11/25 Rx vomiting #30 tabs apixaban 5 mg tablet (Eliquis) 5 mg PO BID 05/30/25 History loperamide 2 mg capsule (Imodium 2 mg PO Q6H PRN 05/3007/11/25 History A-D) Tumeric PO 06/23/25 07/11/25 History calcium 600 mg (as 1 tab PO QDAY 06/23/2507/11 History carbonate)-vitamin D3 10 mcg (400 unit) tablet (Calcium with Vitamin D) multivitamin 1 tab PO QDAY 06/23/2507/11 History Have you fallen in the past year?: No Central Venous Access Central Venous Access: Yes Port/PICC: Port Laboratory Tests 03/09/25 03/21/25 05/02/25 10:15 07:56 07:50 Carcinoembryonic Ag 6.3 H 5.5 H 8.3 H 06/27/25 09:30 Carcinoembryonic Ag 7.9 H Exam Physical Exam Narrative ECOG 0-1 [...] no focal motor deficits Coordination / Balance: yztsbn-lh-xyeu test normal Speech: speech normal Gait (Neuro): normal gait Psych mental status grossly normal Coding Level of Care Code Off vis,est,level 4 Exam Problem Focused Diagnoses Malignant neoplasm of ascending colon C18.2 Colon location: ascending Regional lymph node metastasis present C77.9 Lung nodules R91.8 Anemia D64.9 Diarrhea due to drug K52.1 Assessment and Plan Assessment and Plan (1) Colon cancer: Status: Chronic Qualifiers: Colon location: ascending Qualified Code(s): C18.2 - Malignant neoplasmof ascending colon (2) Regional lymph node metastasis present: Status: Chronic (3) Lung nodules: Status: Chronic (4) Anemia: Status: Acute (5) Diarrhea due to drug: Status: Resolved Plan 74-year-old female with high risk stage III colon cancer (T3, N2, M0), status post robotic assistedright hemicolectomy December 2024 at [facility]. There are 2 subcentimeter too small to characterize lung nodules that will be followedup. Started adjuvant modified FOLFOX March 2025 with diarrhea being main side effect experienced manageable after fluorouracil leucovorin boluses were laminated. Chronic comorbid conditions: Hypertension, dyslipidemia, DJD, obesity and history of M?ni?re's disease. Recommendations: Based on NCCN guidelines and up-to-date review of treatment of stage III high riskcolon cancer with intent to cure advise: 1. Continue 6 months adjuvant modified FOLFOX 6. She was dose adjusted by eliminating 5-FU bolus asof cycle 5 due to diarrhea. 2. Supportive treatment with antiemetics and Imodium 3. 2 lung nodules will be followed up with CT of the chest, abdomen and pelvis at the end of treatment. 4. Will follow CEA to normalization, a preoperative CEA from outside was not found. 5. Anemia of cancer and chemotherapy, no evidence for nutritional deficiencies of iron or B12 Patient was seen with her daughter, impression and plan discussed. [place] MD [employer], [facility] Divisions of Medical Oncology & Hematology Department of Internal Medicine [place] [id number] This note was generated using a voice [...] you fallen in the past year?: No 07/11/25 1005 dharmesh PIRES> Date _ [place] MD Cosigner Signature: Date (if applicable) CC: ~ [facility]09-09-2025 Progress note Author [place] [facility] Note Date/Time July 11, 2025 10:05am [facility] [address] [address] OFFICE VISIT Date of Service: 07/11/25936 MR#: [id number] Acct: [id number] Name: JESSIKA CARRILLO Rep #: [id number] : 1950 From: New peterson MD Age/Sex: 74/F Location: [facility] Status: Signed HPI Subjective Date of Service 07/11/25 Chief Complaint Colon cancer on treatment History of Present Illness 74-year-old female with no family of colon cancer had screening colonoscopy August 17, [address] Boles at [facility] with 2 sessile polypoid lesions were found, [...] left kidney. Patient was then referred to [facility] for further management. December 31, 2024 MRI [...] January 23, 2025 robotic right hemicolectomy at [facility] by Dr. Antonio. Pathology: Right colon terminal [...] isnot present. No further testing was indicated. May 15, 2025 brain MRI: Following a syncopal episode: IMPRESSION: 1. There is an area of abnormal signal on the gradient echo images corresponding to the coarse calcifications seen in the left parietal lobe, posteriorly. There is no associated vasogenic edema or contrast enhancement. This is likely a chronic finding, of questionable clinical significance. 2. There are no foci of abnormal intracranial contrast enhancement or vasogenicedema to suggest metastatic disease. 3. Findings consistent with chronic ischemic white matter disease. Treatment summary and response: January 23, 2025 robotic right hemicolectomy at [facility]. March 21, 2025 adjuvant modified FOLFOX 6 PFSH Medical History NELSON (obstructive sleep apnea) Obesity Vitamin D deficiency Dizziness New onset a-fib Abnormal brain CT Neutropenia Syncope and collapse Lung nodules Colon cancer Back pain Atrial flutter Anemia Diarrhea due to drug Encounter for chemotherapy management Loss of hearing Asthma Encounter for education Regional lymph node metastasis present Degenerative joint disease Arthritis High cholesterol History of Meniere's disease Hypertension Surgical History History of hysteroscopy History [...] and no addt'l complaints, except as documented, diarrhea and other Details: diarrhea is manageable with diet modification and Imodium ; Denies dysphagia, hematochezia, melena or nausea Genitourinary Genitourinary: Reports systems reviewed and no [...] addt'l complaints, exceptas documented Intake Vital Signs 06/27/25 09:43 07/11/25 09:38 07/11/25 09:46 Height 5 ft 1 in 5 ft 1 in 5 ft 1 in Weight: 81.42 kg BMI 33.9 BP 125/81 H Blood Pressure Location Lt brachial Position Sitting Respiration 16 Pulse 78 Pulse Source Monitor Temp 98.2 F Temperature Source Temporal Artery Pulse Oximetry (%) 95 Oxygen Delivery Method room air Intake Is patient in pain?: No Allergies No Known Allergies Allergy (Verified 07/11/25 09:43) Medications ?Medication ?Instructions ?Recorded ?Confirmed ?Type metoprolol succinate 50 mg 50 mg PO DAILY 05/13/2507/27 History tablet,extended release 24 hr dicyclomine 20 mg tablet 20 mg PO .QID PRN diarrhea # 40 tabs 05/15/25 07/11/25 Rx losartan 50 mg tablet 50 mg PO DAILY #30 tabs 05/0207/11/25 Rx ondansetron HCl 8 mg tablet 8 mg PO Q8H PRN nausea and 05/15/25 07/11/25 Rx vomiting #30 tabs apixaban 5 mg tablet (Eliquis) 5 mg PO BID 05/30/25 History loperamide 2 mg capsule (Imodium 2 mg PO Q6H PRN 05/3007/11/25 History A-D) Tumeric PO 06/23/25 07/11/25 History calcium 600 mg (as 1 tab PO QDAY 06/23/2507/11 History carbonate)-vitamin D3 10 mcg (400 unit) tablet (Calcium with Vitamin D) multivitamin 1 tab PO QDAY 06/23/2507/11 History Have you fallen in the past year?: No Central Venous Access Central Venous Access: Yes Port/PICC: Port Laboratory Tests 03/09/25 03/21/25 05/02/25 10:15 07:56 07:50 Carcinoembryonic Ag 6.3 H 5.5 H 8.3 H 06/27/25 09:30 Carcinoembryonic Ag 7.9 H Exam Physical Exam Narrative ECOG 0-1 [...] no focal motor deficits Coordination / Balance: ukzsgf-[id number] test normal Speech: speech normal Gait (Neuro): normal gait Psych mental status grossly normal Coding Level of Care Code Off vis,est,level 4 Exam Problem Focused Diagnoses Malignant neoplasm of ascending colon C18.2 Colon location: ascending Regional lymph node metastasis present C77.9 Lung nodules R91.8 Anemia D64.9 Diarrhea due to drug K52.1 Assessment and Plan Assessment and Plan (1) Colon cancer: Status: Chronic Qualifiers: Colon location: ascending Qualified Code(s): C18.2 - Malignant neoplasmof ascending colon (2) Regional lymph node metastasis present: Status: Chronic (3) Lung nodules: Status: Chronic (4) Anemia: Status: Acute (5) Diarrhea due to drug: Status: Resolved Plan 74-year-old female with high risk stage III colon cancer (T3, N2, M0), status post robotic assisted right hemicolectomy December 2024 at [facility]. There are 2 subcentimeter too small to characterize lung nodules that will be followedup. Started adjuvant modified FOLFOX March 2025 with diarrhea being main side effect experienced manageable after fluorouracil leucovorin boluses were laminated. Chronic comorbid conditions: Hypertension, dyslipidemia, DJD, obesity and history of M?ni?re's disease. Recommendations: Based on NCCN guidelines and up-to-date review of treatment of stage III high risk colon cancer with intent to cure advise: 1. Continue 6 months adjuvant modified FOLFOX 6. She was dose adjusted by eliminating 5-FU bolus as of cycle 5 due to diarrhea. 2. Supportive treatment with antiemetics and Imodium 3. 2 lung nodules will be followed up with CT of the chest, abdomen and pelvis at the end of treatment. 4. Will follow CEA to normalization, a preoperative CEA from outside was not found. 5. Anemia of cancer and chemotherapy, no evidence for nutritional deficiencies of iron or B12 Patient was seen with her daughter, impression and plan discussed. [place] MD [employer] Performance Engineer, [facility] Divisions of Medical Oncology & Hematology Department of Internal Medicine [place] [address] This note was generated using a voice [...] you fallen in the past year?: No 07/11/25 1005 <Electronically signed by New braroso MD> Date _ [place] [facility] Signature: Date (if applicable) CC: ~ [employer] Work Phone: 1(234) 590-899508-26-2025 [facility] [address] [place] [id number] OFFICE VISIT Date of Service: 06/27/25 0941 MR#: [id number] Acct: [id number] Name: JESSIKA CARRILLO Rep #: [id number] : 1950 From: Alyssa Zavala ch [employer] CONS[employer]-C Age/Sex: 74/F [place] [facility] [place] Status: Signed HPI Subjective Date of Service 06/27/25 Chief Complaint Colon cancer on treatment History of Present Illness 74-year-old female with no family of colon cancer had screening colonoscopy August 17, 2024 by at [facility] with 2 sessile polypoid lesions were found, [...] left kidney. Patient was then referred to [facility] for further management. December 31, 2024 MRI [...] January 23, 2025 robotic right hemicolectomy at [facility] by Dr. Antonio. Pathology: Right colon terminal [...] isnot present. No further testing was indicated. May 15, 2025 brain MRI: Following a syncopal episode: IMPRESSION: 1. There is an area of abnormal signal on the gradient echo images corresponding to the coarse calcifications seen in the left parietal lobe, posteriorly. There is no associated vasogenic edema or contrast enhancement. This islikely a chronic finding, of questionable clinical significance. 2. There are no foci of abnormal intracranial contrast enhancement or vasogenicedema to suggest metastatic disease. 3. Findings consistent with chronic ischemic white matter disease. Treatment summary and response: January 23, 2025 robotic right hemicolectomy at [facility]. March 21, 2025 adjuvant modified FOLFOX 6 Interval History The patient is presenting to clinic accompanied by adult daughter for an evaluation anticipating she will begin cycle 7 FOLFOX. Diarrhea continues intermittently. Responds to loperamide. LBM earlier this morning, describes as loose, not watery. Numbness tingling limited only to cold exposure as expected with oxaliplatin. PO fluid intake estimated as 2.5 L/day. Appetite fair. Denies fever/chills, sweats, headache, mouth sores, dizziness, CP, palpitations cough SOB, abd pain, N/V,( has not required any prn antiemetics), swelling of her extremities, bleeding/bruising. [facility] Medical History NELSON (obstructive sleep apnea) Obesity Vitamin D deficiency Dizziness New onset a-fib Abnormal brain CT Neutropenia Syncope and collapse Lung nodules Colon cancer Back pain Atrial flutter Anemia Diarrhea due to drug Encounter for chemotherapy management Loss of hearing Asthma Encounter for education Regional lymph node metastasis present Degenerative joint disease Arthritis High cholesterol History of Meniere's disease Hypertension Surgical History History of hysteroscopy History of colectomy History of total right knee replacement Hx of colonoscopy Family History Father Heart disease Aunt Breast cancer Social History Smoking Status: Former smoker Tobacco: How many years used: 5 alcohol intake: never substance use type: does not use ROS ROS Narrative Negative except as documented in the interval HPI Intake Vital Signs 05/30/25 08:41 06/13/25 09:37 06/27/25 09:43 Height 5 ft 1 in 5 ft 1 in 5 ft 1 in Weight: 178 lb 9 oz BMI 33.7 BP 137/81 H Blood Pressure Location Lt brachial Position Sitting Respiration 18 Pulse 77 Pulse Source Monitor Temp 98.2 F Temperature Source Temporal Artery Pulse Oximetry (%) 98 Oxygen Delivery Method room air Intake Is patient in pain?: No Allergies No Known Allergies Allergy (Verified 06/27/25 09:45) Medications ?Medication ?Instructions ?Recorded ?Confirmed ?Type metoprolol succinate 50 mg 50 mg PO DAILY 05/13/25 History tablet,extended release 24 hr dicyclomine 20 mg tablet 20 mg PO .QID PRN diarrhea # 40 tabs 05/15/25 06/27/25 Rx losartan 50 mg tablet 50 mg PO DAILY #30 tabs 05/0206/27/25 Rx ondansetron HCl 8 mg tablet 8 mg PO Q8H PRN nausea and 05/15/25 06/27/25 Rx vomiting #30 tabs apixaban 5 mg tablet (Eliquis) 5 mg PO BID 05/30/25 History loperamide 2 mg capsule (Imodium 2 mg PO Q6H PRN 05/3006/27/25 History A-D) Tumeric PO 06/23/25 06/27/25 History calcium 600 mg (as 1 tab PO QDAY 06/23/2506/27 History carbonate)-vitamin D3 10 mcg (400 unit) tablet (Calcium with Vitamin D) multivitamin 1 tab PO QDAY 06/23/2506/27 History Have you fallen in the past year?: No Central Venous Access Central Venous Access: Yes Port/PICC: Port Laboratory Tests 06/27/25 09:30 WBC 7.1 Sodium 138 Potassium 4.2 Chloride 105 Carbon Dioxide 23.4 BUN 13 Creatinine 0.64 L Glucose 123 H Calcium 9.2 Magnesium 2.0 Total Bilirubin 0.32 AST 26 ALT 21 Alkaline Phosphatase 67 Albumin 3.6 Exam Physical Exam Narrative ECOG 0-1 Const alert, oriented x3 and no apparent distress General Appearance: comfortable Nutritional Appearance: overweight HEENT Face and Sinus: normal facial exam Mouth: oral and palatal mucosa normal, No lesions and No thrush Eyes Eyes Narrative: wears glasses General Eye: normal appearance of both eyes [...] Assessment and Plan (1) Colon cancer: Status: Chronic Qualifiers: Colon location: ascending Qualified Code(s): C18.2 - Malignant neoplasmof ascending colon (2) Regional lymph node metastasis present: Status: Chronic (3) Lung nodules: Status: Chronic (4) Anemia: Status: Acute (5) Diarrhea due to drug: Status: Resolved (6) Encounter for chemotherapy management: Status: Acute Plan 74-year-old female with high risk stage III colon cancer (T3, N2, M0), status post robotic assistedright hemicolectomy December 2024 at [facility]. There are 2 subcentimeter too small to [...] Continue 6 months adjuvant modified FOLFOX 6. She was dose adjusted by eliminating 5-FU bolus asof cycle 5 due to diarrhea. Proceed with cycle 7 today. 2. Diarrhea?grade 1. Responds well to loperamide. She should continue aggressive use of loperamide increase p.o. fluid intake and electrolyte support 3. 2 lung nodules will be followed up with CT of the chest, abdomen and pelvis at the end of treatment. 4. Will follow CEA to normalization, a preoperative CEA from outside was not found. 5. Anemia of cancer and chemotherapy, no evidence for nutritional deficiencies of iron or B12 Clinical Quality Measures Falls Risk Screening/Assistive Devices Have you fallen in the past year?: No 06/27/25 1028 h [employer] CONSULTANT [employer] CONS[employer]ANT-C> Date _ Alyssa Lynch [employer] CON[employer]ANT [employer] CONS[employer] Cosigner Signature: Date (if applicable) CC: ~ [facility]08-26-2025 Progress note Author Alyssa Lynch [facility] Note Date/Time June 27, 2025 10 :28am [facility] [address] [place] [address] OFFICE VISIT Date of Service: 06/27/25 0941 MR#: [id number] Acct: [id number] Name: JESSIKA CARRILLO Rep #: [id number] : 1950 From: Alyssa Zavala ch, NP [employer] Age/Sex: 74/F Location: [facility] [place] Status: Signed HPI Subjective Date of Service 06/27/25 Chief Complaint Colon cancer on treatment History of Present Illness 74-year-old female with no family of colon cancer had screening colonoscopy August 17, [address] Boles at [facility] with 2 sessile polypoid lesions were found, [...] left kidney. Patient was then referred to [facility] for further management. December 31, 2024 MRI [...] January 23, 2025 robotic right hemicolectomy at [facility] by Dr. Antonio. Pathology: Right colon terminal [...] isnot present. No further testing was indicated. May 15, 2025 brain MRI: Following a syncopal episode: IMPRESSION: 1. There is an area of abnormal signal on the gradient echo images corresponding to the coarse calcifications seen in the left parietal lobe, posteriorly. There is no associated vasogenic edema or contrast enhancement. This is likely a chronic finding, of questionable clinical significance. 2. There are no foci of abnormal intracranial contrast enhancement or vasogenicedema to suggest metastatic disease. 3. Findings consistent with chronic ischemic white matter disease. Treatment summary and response: January 23, 2025 robotic right hemicolectomy at [facility]. March 21, 2025 adjuvant modified FOLFOX 6 Interval History The patient is presenting to clinic accompanied by adult daughter for an evaluation anticipating she will begin cycle 7 FOLFOX. Diarrhea continues intermittently. Responds to loperamide. LBM earlier this morning, describes as loose, not watery. Numbness tingling limited only to cold exposure as expected with oxaliplatin. PO fluid intake estimated as 2.5 L/day. Appetite fair. Denies fever/chills, sweats, headache, mouth sores, dizziness, CP, palpitations cough SOB, abd pain, N/V,( has not required any prn antiemetics), swelling of her extremities, bleeding/bruising. [facility] Medical History NELSON (obstructive sleep apnea) Obesity Vitamin D deficiency Dizziness New onset a-fib Abnormal brain CT Neutropenia Syncope and collapse Lung nodules Colon cancer Back pain Atrial flutter Anemia Diarrhea due to drug Encounter for chemotherapy management Loss of hearing Asthma Encounter for education Regional lymph node metastasis present Degenerative joint disease Arthritis High cholesterol History of Meniere's disease Hypertension Surgical History History of hysteroscopy History of colectomy History of total right knee replacement Hx of colonoscopy Family History Father Heart disease Aunt Breast cancer Social History Smoking Status: Former smoker Tobacco: How many years used: 5 alcohol intake: never substance use type: does not use ROS ROS Narrative Negative except as documented in the interval HPI Intake Vital Signs 05/30/25 08:41 06/13/25 09:37 06/27/25 09:43 Height 5 ft 1 in 5 ft 1 in 5 ft 1 in Weight: 178 lb 9 oz BMI 33.7 BP 137/81 H Blood Pressure Location Lt brachial Position Sitting Respiration 18 Pulse 77 Pulse Source Monitor Temp 98.2 F Temperature Source Temporal Artery Pulse Oximetry (%) 98 Oxygen Delivery Method room air Intake Is patient in pain?: No Allergies No Known Allergies Allergy (Verified 06/27/25 09:45) Medications ?Medication ?Instructions ?Recorded ?Confirmed ?Type metoprolol succinate 50 mg 50 mg PO DAILY 05/13/25 History tablet,extended release 24 hr dicyclomine 20 mg tablet 20 mg PO .QID PRN diarrhea # 40 tabs 05/15/25 06/27/25 Rx losartan 50 mg tablet 50 mg PO DAILY #30 tabs 05/0206/27/25 Rx ondansetron HCl 8 mg tablet 8 mg PO Q8H PRN nausea and 05/15/25 06/27/25 Rx vomiting #30 tabs apixaban 5 mg tablet (Eliquis) 5 mg PO BID 05/30/25 History loperamide 2 mg capsule (Imodium 2 mg PO Q6H PRN 05/3006/27/25 History A-D) Tumeric PO 06/23/25 06/27/25 History calcium 600 mg (as 1 tab PO QDAY 06/23/2506/27 History carbonate)-vitamin D3 10 mcg (400 unit) tablet (Calcium with Vitamin D) multivitamin 1 tab PO QDAY 06/23/2506/27 History Have you fallen in the past year?: No Central Venous Access Central Venous Access: Yes Port/PICC: Port Laboratory Tests 06/27/25 09:30 WBC 7.1 Sodium 138 Potassium 4.2 Chloride 105 Carbon Dioxide 23.4 BUN 13 Creatinine 0.64 L Glucose 123 H Calcium 9.2 Magnesium 2.0 Total Bilirubin 0.32 AST 26 ALT 21 Alkaline Phosphatase 67 Albumin 3.6 Exam Physical Exam Narrative ECOG 0-1 Const alert, oriented x3 and no apparent distress General Appearance: comfortable Nutritional Appearance: overweight HEENT Face and Sinus: normal facial exam Mouth: oral and palatal mucosa normal, No lesions and No thrush Eyes Eyes Narrative: wears glasses General Eye: normal appearance of both eyes [...] Assessment and Plan (1) Colon cancer: Status: Chronic Qualifiers: Colon location: ascending Qualified Code(s): C18.2 - Malignant neoplasmof ascending colon (2) Regional lymph node metastasis present: Status: Chronic (3) Lung nodules: Status: Chronic (4) Anemia: Status: Acute (5) Diarrhea due to drug: Status: Resolved (6) Encounter for chemotherapy management: Status: Acute Plan 74-year-old female with high risk stage III colon cancer (T3, N2, M0), status post robotic assisted right hemicolectomy December 2024 at [facility]. There are 2 subcentimeter too small to [...] Continue 6 months adjuvant modified FOLFOX 6. She was dose adjusted by eliminating 5-FU bolus as of cycle 5 due to diarrhea. Proceed with cycle 7 today. 2. Diarrhea?grade 1. Responds well to loperamide. She should continue aggressive use of loperamide increase p.o. fluid intake and electrolyte support 3. 2 lung nodules will be followed up with CT of the chest, abdomen and pelvis at the end of treatment. 4. Will follow CEA to normalization, a preoperative CEA from outside was not found. 5. Anemia of cancer and chemotherapy, no evidence for nutritional deficiencies of iron or B12 Clinical Quality Measures Falls Risk Screening/Assistive Devices Have you fallen in the past year?: No 06/27/25 1028 <Electronically signed by Alyssa li NP [employer]> Date _ Alyssa Lynch [employer] CONSULTANT [employer] CONS[employer] Cosigner Signature: Date (if applicable) CC: ~ [employer] Work Phone: 1(919) 150-129508-12-2025 [facility] [address] [place] [address] OFFICE VISIT Date of Service: 06/13/25 0932 MR#: [id number] Acct: [id number] Name: JESSIKA CARRILLO Perry Rep #: [id number] : 1950 From: New peterson MD Age/Sex: 74/F Location: [facility] [place] Status: Signed HPI Subjective Date of Service 06/13/25 Chief Complaint Colon cancer on treatment History of Present Illness 74-year-old female with no family of colon cancer had screening colonoscopy August 17, 2024 by at [facility] with 2 sessile polypoid lesions were found, [...] left kidney. Patient was then referred to [facility] for further management. December 31, 2024 MRI [...] January 23, 2025 robotic right hemicolectomy at [facility] by Dr. Antonio. Pathology: Right colon terminal [...] isnot present. No further testing was indicated. May 15, 2025 brain MRI: Following a syncopal episode: IMPRESSION: 1. There is an area of abnormal signal on the gradient echo images corresponding to the coarse calcifications seen in the left parietal lobe, posteriorly. There is no associated vasogenic edema or contrast enhancement. This islikely a chronic finding, of questionable clinical significance. 2. There are no foci of abnormal intracranial contrast enhancement or vasogenicedema to suggest metastatic disease. 3. Findings consistent with chronic ischemic white matter disease. Treatment summary and response: January 23, 2025 robotic right hemicolectomy at [facility]. March 21, 2025 adjuvant modified FOLFOX 6 PFSH Medical History Personal history of chemotherapy Acute UTI Abnormal brain CT Leukopenia New onset atrial flutter Acidosis, lactic Neutropenia Acute hypokalemia Closed head injury Syncope and collapse Colon cancer Atrial flutter Anemia Diarrhea due to drug Encounter for [...] and no addt'l complaints, except as documented, diarrheaand other Details: diarrhea is manageable with diet modification and Imodium ; Denies dysphagia, hematochezia, melena or nausea Genitourinary Genitourinary: Reports systems reviewed and no [...] addt'l complaints, exceptas documented Intake Vital Signs 05/30/25 08:41 06/13/25 09:34 06/13/25 09:37 Height 5 ft 1 in 5 ft 1 in 5 ft 1 in Weight: 82.1 kg BMI 34.2 BP 125/81 H Blood Pressure Location Rt brachial Position Sitting Respiration 16 Pulse 72 Pulse Source Monitor Temp 96.9 F L Temperature Source Temporal Artery Pulse Oximetry (%) 99 Oxygen Delivery Method room air Intake Is patient in pain?: No Allergies No Known Allergies Allergy (Verified 06/13/25 09:35) Medications ?Medication ?Instructions ?Recorded ?Confirmed ?Type metoprolol succinate 50 mg 50 mg PO DAILY 05/13/2510/26 History tablet,extended release 24 hr dicyclomine 20 mg tablet 20 mg PO .QID PRN diarrhea # 40 tabs 05/15/25 06/13/25 Rx losartan 50 mg tablet 50 mg PO DAILY #30 tabs 05/0206/13/25 Rx ondansetron HCl 8 mg tablet 8 mg PO Q8H PRN nausea and 05/15/25 06/13/25 Rx vomiting #30 tabs apixaban 5 mg tablet (Eliquis) 5 mg PO BID 05/30/25 History loperamide 2 mg capsule (Imodium 2 mg PO Q6H PRN 05/3006/13/25 History A-D) Have you fallen in the past year?: No Central Venous Access Central Venous Access: Yes Port/PICC: Port CBC, CMP June 13, 2025 reviewed in EMR Exam Physical Exam Narrative ECOG 0-1 Const [...] no focal motor deficits Coordination / Balance: cudtqf-we-jfxo test normal Speech: speech normal Gait (Neuro): normal gait Psych mental status grossly normal Coding Level of Care Code Off vis,est,level 4 Exam Problem Focused Diagnoses Malignant neoplasm of ascending colon C18.2 Colon location: ascending Regional lymph node metastasis present C77.9 Lung nodules R91.8 Anemia D64.9 Diarrhea due to drug K52.1 Assessment and Plan Assessment and Plan (1) Colon cancer: Status: Chronic Qualifiers: Colon location: ascending Qualified Code(s): C18.2 - Malignant neoplasmof ascending colon (2) Regional lymph node metastasis present: Status: Chronic (3) Lung nodules: Status: Chronic (4) Anemia: Status: Acute (5) Diarrhea due to drug: Status: Acute Plan 74-year-old female with high risk stage III colon cancer (T3, N2, M0), status post robotic assistedright hemicolectomy December 2024 at [facility]. There are 2 subcentimeter too small to [...] Continue 6 months adjuvant modified FOLFOX 6. She was dose adjusted by eliminating 5-FU bolus asof cycle 5 due to diarrhea. 2. Supportive treatment with antiemetics and Imodium 3. 2 lung nodules will be followed up with CT of the chest, abdomen and pelvis at the end of treatment. 4. Will follow CEA to normalization, a preoperative CEA from outside was not found. 5. Anemia of cancer and chemotherapy, no evidence for nutritional deficiencies of iron or B12 Patient was seen with her daughter, impression and plan discussed. [place] MD [employer] Engineer, [facility] Divisions of Medical Oncology & Hematology Department of Internal Medicine [place] [address] This note was generated using a voice [...] you fallen in the past year?: No 06/13/25 1005 dharmesh PIRES> Date _ [place] MD Cosigner Signature: Date (if applicable) CC: ~ [facility]08-12-2025 Progress note Author [place] [facility] Note Date/Time June 13, 2025 10 :05am [facility] [place] [address] OFFICE VISIT Date of Service: 06/13/25 0932 MR#: [id number] Acct: [id number] Name: JESSIKA CARRILLO Rep #: [id number] : 1950 From: New peterson MD Age/Sex: 74/F Location: [facility] [place] Status: Signed HPI Subjective Date of Service 06/13/25 Chief Complaint Colon cancer on treatment History of Present Illness 74-year-old female with no family of colon cancer had screening colonoscopy August 17, [address] Boles at [facility] with 2 sessile polypoid lesions were found, [...] left kidney. Patient was then referred to [facility] for further management. December 31, 2024 MRI [...] January 23, 2025 robotic right hemicolectomy at [facility] by Dr. Antonio. Pathology: Right colon terminal [...] isnot present. No further testing was indicated. May 15, 2025 brain MRI: Following a syncopal episode: IMPRESSION: 1. There is an area of abnormal signal on the gradient echo images corresponding to the coarse calcifications seen in the left parietal lobe, posteriorly. There is no associated vasogenic edema or contrast enhancement. This is likely a chronic finding, of questionable clinical significance. 2. There are no foci of abnormal intracranial contrast enhancement or vasogenicedema to suggest metastatic disease. 3. Findings consistent with chronic ischemic white matter disease. Treatment summary and response: January 23, 2025 robotic right hemicolectomy at [facility]. March 21, 2025 adjuvant modified FOLFOX 6 PFSH Medical History Personal history of chemotherapy Acute UTI Abnormal brain CT Leukopenia New onset atrial flutter Acidosis, lactic Neutropenia Acute hypokalemia Closed head injury Syncope and collapse Colon cancer Atrial flutter Anemia Diarrhea due to drug Encounter for [...] and no addt'l complaints, except as documented, diarrhea and other Details: diarrhea is manageable with diet modification and Imodium ; Denies dysphagia, hematochezia, melena or nausea Genitourinary Genitourinary: Reports systems reviewed and no [...] addt'l complaints, exceptas documented Intake Vital Signs 05/30/25 08:41 06/13/25 09:34 06/13/25 09:37 Height 5 ft 1 in 5 ft 1 in 5 ft 1 in Weight: 82.1 kg BMI 34.2 BP 125/81 H Blood Pressure Location Rt brachial Position Sitting Respiration 16 Pulse 72 Pulse Source Monitor Temp 96.9 F L Temperature Source Temporal Artery Pulse Oximetry (%) 99 Oxygen Delivery Method room air Intake Is patient in pain?: No Allergies No Known Allergies Allergy (Verified 06/13/25 09:35) Medications ?Medication ?Instructions ?Recorded ?Confirmed ?Type metoprolol succinate 50 mg 50 mg PO DAILY 05/13/2510/26 History tablet,extended release 24 hr dicyclomine 20 mg tablet 20 mg PO .QID PRN diarrhea # 40 tabs 05/15/25 06/13/25 Rx losartan 50 mg tablet 50 mg PO DAILY #30 tabs 05/0206/13/25 Rx ondansetron HCl 8 mg tablet 8 mg PO Q8H PRN nausea and 05/15/25 06/13/25 Rx vomiting #30 tabs apixaban 5 mg tablet (Eliquis) 5 mg PO BID 05/30/25 History loperamide 2 mg capsule (Imodium 2 mg PO Q6H PRN 05/3006/13/25 History A-D) Have you fallen in the past year?: No Central Venous Access Central Venous Access: Yes Port/PICC: Port CBC, CMP June 13, 2025 reviewed in EMR Exam Physical Exam Narrative ECOG 0-1 Const [...] no focal motor deficits Coordination / Balance: [id number] test normal Speech: speech normal Gait (Neuro): normal gait Psych mental status grossly normal Coding Level of Care Code Off vis,est,level 4 Exam Problem Focused Diagnoses Malignant neoplasm of ascending colon C18.2 Colon location: ascending Regional lymph node metastasis present C77.9 Lung nodules R91.8 Anemia D64.9 Diarrhea due to drug K52.1 Assessment and Plan Assessment and Plan (1) Colon cancer: Status: Chronic Qualifiers: Colon location: ascending Qualified Code(s): C18.2 - Malignant neoplasmof ascending colon (2) Regional lymph node metastasis present: Status: Chronic (3) Lung nodules: Status: Chronic (4) Anemia: Status: Acute (5) Diarrhea due to drug: Status: Acute Plan 74-year-old female with high risk stage III colon cancer (T3, N2, M0), status post robotic assisted right hemicolectomy December 2024 at [facility]. There are 2 subcentimeter too small to [...] Continue 6 months adjuvant modified FOLFOX 6. She was dose adjusted by eliminating 5-FU bolus as of cycle 5 due to diarrhea. 2. Supportive treatment with antiemetics and Imodium 3. 2 lung nodules will be followed up with CT of the chest, abdomen and pelvis at the end of treatment. 4. Will follow CEA to normalization, a preoperative CEA from outside was not found. 5. Anemia of cancer and chemotherapy, no evidence for nutritional deficiencies of iron or B12 Patient was seen with her daughter, impression and plan discussed. [place] MD [employer], [facility] Divisions of Medical Oncology & Hematology Department of Internal Medicine [place] [phone] This note was generated using a voice [...] you fallen in the past year?: No 06/13/25 1005 <Electronically signed by New barroso MD> Date _ [place] MD Cosigner Signature: Date (if applicable) CC: ~ [employer] Work Phone: 1(783) 670-963407-14-2025 Discharge summary [facility] Medical Records Department [address] [place] [address] Instructions for Home/Discharge Instructions 05/15/25 1630 MR#: [id number] Acct: [id number] Name: JESSIKA CARRILLO Rep #:[id number] : 1950 74 From: Maciel Montesinos DO PCP: JUVENTINO Pérez Status:ADM IN Discharge Instructions DC O2, CPAP, BIPAP needs Home O2 Discharge instructions: No Dressing / Incision Discharge Activity: Return to Normal Activity Weight Bearing Status: Full weight bearing Follow Up Care Test Results: Test results from this visit will be discussed in further detail at your follow- up appointment, if applicable. Discharge Plan Admission Admit Date/Time: 05/13/25 17:23 Primary Reason for Your Visit: urinary tract infection, low potassium Attending Provider: Maciel Montesinos Primary Care Provider: Shu Chow Discharge Orders/Prescriptions Prescriptions: New ondansetron HCl 8 mg tablet 8 mg PO Q8H PRN (Reason: nausea and vomiting) Qty: 30 0RF dicyclomine 20 mg tablet 20 mg PO .QID PRN (Reason: diarrhea) Qty: 40 0RF cephalexin 500 mg capsule 500 mg PO TID Qty: 15 0RF Rx Instructions: start on 05/16/25 losartan 50 mg tablet 50 mg PO DAILY Qty: 30 0RF Continued metoprolol succinate 50 mg tablet extended release 24 hr 50 mg PO DAILY Discontinued lisinopril-hydrochlorothiazide 20-25 mg Tablet 1 tab PO DAILY Referrals / Follow Up: Shu Chow PA [Primary Care Provider] - In 1 Week [place] MD [Med Staff - Active Staff] - See Referral Note (Do not go to your appointment on 05/16/2025, office will call you for a follow-up appointment) Disposition Disposition (needs filled in before D/C Order can be placed): Home, Self Care 05/15/25 1645Maciel Montesinos DO CC: JUVENTINO Pérez ~ Signed [facility]07-14-2025 [facility]07-14-2025 Hospital Discharge instructionsAdditional Instructions Date of Discharge: 05/15/25[facility] Work Phone: [phone]) 245-191807-13-2025 Progress note Author Maciel Montesinos [facility] Note Date/Time May 14, 2025 3:36 pm [facility] Medical Records Department [address] [place] [address] Progress Note - Hospitalist 05/14/25 1533 MR#: [id number] Acct: [id number] Name: JESSIKA CARRILLO Rep #:[id number] : 1950 74 From: Maciel Montesinos DO PCP: JUVENTINO Pérez Status:ADM IN Location: [place] [address] Reason for Visit Chief Complaint: Syncope, weakness Subjective Subjective Patient was seen and examined today, her potassium today was 2.8, she still remains in atrial FaBB, I increased the patient's metoprolol due to her heart rate above 100 today. Patient has no complaints to this examiner. Objective Data Objective Data Vital Signs: Vital Signs Temp Pulse Resp BP Pulse Ox O2 Del Method 99.0 F 109 H 18 101/49 L 96 Room Air 05/14/25 13:12 05/14/25 13:12 05/14/25 13:12 05/14/25 13:12 05/14/25 13:12 05/14/25 13:12 Oxygen Delivery Method Room Air Weight: 81.5 kg Body Mass Index (BMI) 33.9 Intake & Output: Intake and Output for Last 24 Hours 05/12/25 05/13/25 05/14/25 23:59 23:59 23:59 Intake Total 2270 / 2270 1450 / 1450 Output Total 200 / 200 Balance 2270 / 2270 1250 / 1250 Lab / Micro Data 05/14/25 06:05 05/14/25 06:05 Labs: Laboratory Results - last 24 hr 05/13/25 15:43: Urine Color Yellow, Urine Clarity Sl. Cloudy, Urine pH 6.5, Ur Specific [place] 1.010, Urine Protein 30 H, Urine Glucose (UA) Normal, Urine Ketones Negative, Urine Occult Blood 10 H, Urine Nitrite Negative, Urine Bilirubin Negative, Urine Urobilinogen Normal, Ur Leukocyte Esterase 500 H, Urine RBC 0-5 SEEN, Urine WBC 5-10 SEEN, Ur Squamous Epith Cells 0-5 SEEN, Amorphous Sediment 1+, Urine Bacteria 2+, Hyaline Casts 0-5 SEEN, Urine Mucus 1+ 05/13/25 17:45: Lactic Acid 2.2 H* 05/14/25 06:05: WBC 2.4 L, RBC 3.51 L, Hgb 10.8 L, Hct 30.5 L, MCV 86.9, MCH 30.8, MCHC 35.4, RDW Std Deviation 46.1 H, RDW Coeff of [place]ec[place] 15.0 H, Plt Count 214, MPV 8.6, Immature Gran % (Auto) 0.800, Neut % (Auto) 20.2 L, Lymph % (Auto)45.9 H, [place] % (Auto) 30.7 H, Eos % (Auto) 1.6, Baso % (Auto) 0.8, Absolute Neuts (auto) 0.5 L, Absolute Lymphs (auto) 1.12, Nucleated RBC % 0, DifferentialComment SCANNED, Sodium 131 L, Potassium 2.8 L, Chloride 100, Carbon Dioxide 19.2 L, Anion Gap 11, BUN 6, Creatinine 0.65 L, Estim Creat Clear Calc 58.78, Est GFR (MDRD) Non-Af 92, BUN/Creatinine Ratio 8.5 L, Glucose 110 H, Calcium 7.9 Rhythm Strip Rhythm Strip: A-fib Rate: 97 Ectopy: None Physical Exam Narrative alert, oriented x3 and no apparent distress General Appearance: cooperative, well kempt and well developed Orientation / Consciousness: awake, oriented to person, oriented to place and oriented to time HEENT normocephalic, head/scalp atraumatic, hearing grossly normal bilaterally and moist oral mucous membranes Eyes PERRL, EOMs intact bilaterally and conjunctivae normal Neck supple, no JVD, thyroid normal and no carotid bruits General: trachea midline Resp normal respiratory effort, no retractions, no use of accessory muscles and clearto auscultation bilaterally Auscultation: Negative for rales, rhonchi or wheezes Cardio S1 normal heart sound, S2 normal heart sound, no murmurs, no rub and no gallops Cardio Narrative: Heart rate and rhythm is irregular GI normal to inspection, nondistended, normoactive bowel sounds, soft to palpation,non-tender and non-distended Extremity no clubbing, cyanosis or edema Skin no rashes or lesions noted General Skin Exam: no breakdown Neuro oriented x3, CN's II-XII intact bilaterally, moves all extremities, no focal motor deficits and no sensory deficits noted Sensorium / Orientation: awake and alert Speech: speech normal Psych affect normal Assessment & Plan Assessment/Plan (1) Acute UTI: (2) Syncope and collapse: PLAN: Plan 1. Syncope secondary to hypotension from atrial flutter/fib-patient's metoprolol XL will be increased to 100 mg daily starting tomorrow, I gave her anextra dose of metoprolol XL 50 mg this afternoon. #2 new onset atrial flutter with RVR-I will talk with the patient concerning full anticoagulation-I will also talk with her oncologist concerning this, for now, patient will be monitored and will receive beta-leonardo, patient will undergo an echocardiogram on 05/15/2025. #[address] of the brain indicating possible metastatic cancer-patient will undergo an MRI on 05/15/2025, she follows up with oncology as an outpatient. #4 colon cancer-under active treatment with chemotherapy, complicates care, management, recovery, and prognosis #5 hypokalemia-patient will be given potassium supplementation through her IV, BMP will be rechecked #6 acute cystitis-patient will be treated with Rocephin, cultures are pending Total clinical time spent by myself addressing the patient's medical issues, reviewing all of her data, and collaborating with patient's care team: 35 minutes Charges/Coding Visit Charges Inpatient E&M: 29131 Subs Hosp L2 05/14/25 1536 <Electronically signed by Maciel Montesinos DO> Cosigner Signature (if applicable): CC: ~ Signed [facility] Work Phone: 1(838) 927-900007-13-2025 Progress note [facility] Medical Records Department [address] [place] [address] Progress Note - Hospitalist 05/14/25 1533 MR#: [id number] Acct: [id number] Name: JESSIKA CARRILLO Rep #:[id number] : 1950 74 From: Maciel Montesinos DO PCP: JUVENTINO Pérez Status:ADM IN Location: [place] [address] 1 Reason for Visit Chief Complaint: Syncope, weakness Subjective Subjective Patient was seen and examined today, her potassium today was 2.8, she still remains in atrial FaBB,I increased the patient's metoprolol due to her heart rate above 100 today. Patient has no complaints to this examiner. Objective Data Objective Data Vital Signs: Vital Signs Temp Pulse Resp BP Pulse Ox O2 Del Method 99.0 F 109 H 18 101/49 L 96 Room Air 05/14/25 13:12 05/14/25 13:12 05/14/25 13:12 05/14/25 13:12 05/14/25 13:12 05/14/25 13:12 Oxygen Delivery Method Room Air Weight: 81.5 kg Body Mass Index (BMI) 33.9 Intake & Output: Intake and Output for Last 24 Hours 05/12/25 05/13/25 05/14/25 23:59 23:59 23:59 Intake Total 2270 / 2270 1450 / 1450 Output Total 200 / 200 Balance 2270 / 2270 1250 / 1250 Lab / Micro Data 05/14/25 06:05 05/14/25 06:05 Labs: Laboratory Results - last 24 hr 05/13/25 15:43: Urine Color Yellow, Urine Clarity Sl. Cloudy, Urine pH 6.5, Ur Specific [place] 1.010, Urine Protein 30 H, Urine Glucose (UA) Normal, Urine Ketones Negative, Urine Occult Blood 10 H, Urine Nitrite Negative, Urine Bilirubin Negative, Urine Urobilinogen Normal, Ur Leukocyte Esterase 500 H, Urine RBC 0-5 SEEN, Urine WBC 5-10 SEEN, Ur Squamous Epith Cells 0-5 SEEN, Amorphous Sediment 1+, Urine Bacteria 2+, Hyaline Casts 0-5 SEEN, Urine Mucus 1+ 05/13/25 17:45: Lactic Acid 2.2 H* 05/14/25 06:05: WBC 2.4 L, RBC 3.51 L, Hgb 10.8 L, Hct 30.5 L, MCV 86.9, MCH 30.8, MCHC 35.4, RDW Std Deviation 46.1 H, RDW Coeff of Kec[place] 15.0 H, Plt Count 214, MPV 8.6, Immature Gran % (Auto) 0.800, Neut % (Auto) 20.2 L, Lymph % (Auto)45.9 H, [place] % (Auto) 30.7 H, Eos % (Auto) 1.6, Baso % (Auto) 0.8, Absolute Neuts (auto) 0.5 L, Absolute Lymphs (auto) 1.12, Nucleated RBC % 0, DifferentialComment SCANNED, Sodium 131 L, Potassium 2.8 L, Chloride 100, Carbon Dioxide 19.2 L, Anion Gap 11, BUN 6, Creatinine 0.65 L, Estim Creat Clear Calc 58.78, Est GFR (MDRD) Non-Af 92, BUN/Creatinine Ratio 8.5 L,Glucose 110 H, Calcium 7.9 Rhythm Strip Rhythm Strip: A-fib Rate: 97 Ectopy: None Physical Exam Narrative alert, oriented x3 and no apparent distress General Appearance: cooperative, well kempt and well developed Orientation / Consciousness: awake, oriented to person, oriented to place and oriented to time HEENT normocephalic, head/scalp atraumatic, hearing grossly normal bilaterally and moist oral mucous membranes Eyes PERRL, EOMs intact bilaterally and conjunctivae normal Neck supple, no JVD, thyroid normal and no carotid bruits General: trachea midline Resp normal respiratory effort, no retractions, no use of accessory muscles and clearto auscultation bilaterally Auscultation: Negative for rales, rhonchi or wheezes Cardio S1 normal heart sound, S2 normal heart sound, no murmurs, no rub and no gallops Cardio Narrative: Heart rate and rhythm is irregular GI normal to inspection, nondistended, normoactive bowel sounds, soft to palpation,non-tender and non-distended Extremity no clubbing, cyanosis or edema Skin no rashes or lesions noted General Skin Exam: no breakdown Neuro oriented x3, CN's II-XII intact bilaterally, moves all extremities, no focal motor deficits and no sensory deficits noted Sensorium / Orientation: awake and alert Speech: speech normal Psych affect normal Assessment & Plan Assessment/Plan (1) Acute UTI: (2) Syncope and collapse: PLAN: Plan 1. Syncope secondary to hypotension from atrial flutter/fib-patient's metoprolol XL will be increased to 100 mg daily starting tomorrow, I gave her anextra dose of metoprolol XL 50 mg this afternoon. #2 new onset atrial flutter with RVR-I will talk with the patient concerning full anticoagulation-Iwill also talk with her oncologist concerning this, for now, patient will be monitored and will receive beta-leonardo, patient will undergo an echocardiogram on 05/15/2025. #[address] of the brain indicating possible metastatic cancer-patient will undergo an MRI on 05/15/2025, she follows up with oncology as an outpatient. #4 colon cancer-under active treatment with chemotherapy, complicates care, management, recovery, and prognosis #5 hypokalemia-patient will be given potassium supplementation through her IV, BMP will be rechecked #6 acute cystitis-patient will be treated with Rocephin, cultures are pending Total clinical time spent by myself addressing the patient's medical issues, reviewing all of her data, and collaborating with patient's care team: 35 minutes Charges/Coding Visit Charges Inpatient E&M: 43524 Subs Hosp L2 05/14/25 1536 Cosigner Signature (if applicable): CC: ~ Signed [facility]07-12-2025 History and physical note Author Maciel Montesinos [facility] Note Date/Time May 13, 2025 5:58 pm [facility] Medical Records Department [address] [facility] [place] [address] H&P Exam - Hospitalist 05/13/25 1750 MR#: [id number] Acct: [id number] Name: JESSIKA CARRILLO Rep #:[id number] : 1950 74 From: Maciel Montesinos DO PCP: JUVENTINO Pérez Status:ADM IN Location: [place] [id number] HPI - General General Date of Admission: 05/13/25 Date of Service: 05/13/25 Chief Complaint: Syncope, weakness HPI Narrative JESSIKA CARRILLO, is a 74 F who presents to the emergency room at [facility] at the advice of her PCP due to a syncopal episode she had yesterday and generalized weakness. Patient was under treatment for colon cancer and is on chemotherapy. Workup in the emergency room included a CT of the brain which showed evidence of a left parietal calcification concerning for metastatic disease, she was noted to be hypotensive and tachycardic, EKG was obtained and it was noted that she was in atrial flutter-patient denied ever having that rhythm before. Patient was fluids and labs were obtained, patient's total whiteblood cell count was low at 2.4, hemoglobin was 11.5, chemistry profile was remarkable for sodium 132 and a potassium of 3.1. Lactic acid was 2.4 and glucose was 147. UA was obtained which showed +2 bacteria, 5-10 WBCs and 0-5 RBCs. Patient was felt to have acute cystitis and new onset atrial flutter with rapid ventricular response as well as hypokalemia. Patient's blood pressure improved with administration of IV fluid, patient was given IV Rocephin, she was not given anything for her atrial flutter as her rate eventually lowered. Patient will be admitted to PCU, IV antibiotics will be continued and she will be given IV fluids, patient will undergo an MRI on 05/15/2025 due to her abnormal brain CT. [facility] Medical History Anemia Diarrhea due to drug [...] ?Type lisinopril 20 1 tab PO DAILY 03/18/2105/02 History mg-hydrochlorothiazide 25 mg tablet metoprolol succinate 50 mg 50 mg PO DAILY 05/13/2510/26 History tablet,extended release 24 hr Allergy/AdvReac Type Severity Reaction Status Date / Time No Known Allergies Allergy Verified 05/02/25 08:04 Family History Father Heart disease Aunt Breast cancer Surgical History History of hysteroscopy History of colectomy History of total right knee replacement Hx of colonoscopy Social History Smoking Status: Former smoker Tobacco: How many years used: 5 alcohol intake: never substance use type: does not use ROS Constitutional Constitutional: Reports fatigue and weakness; Denies anorexia, change in weight,chills, fever(s) or night sweats Eyes Eyes: Denies blurry vision, change in vision, discharge from eye(s) or eye pain Cardiovascular Cardiovascular: Reports lightheadedness and syncope; Denies chest pain, claudication, edema or palpitations Respiratory/Chest Respiratory/Chest: Denies cough, hemoptysis, shortness of breath at rest or shortness of breath with exertion Gastrointestinal Gastrointestinal: Denies abdominal pain, constipation, diarrhea, hematemesis, hematochezia, melena, nausea or vomiting Genitourinary Genitourinary: Denies dysuria, hematuria, urinary frequency, urinary hesitancy, urinary incontinence or urinary urgency Musculoskeletal Musculoskeletal: Denies back pain, joint pain, joint stiffness, joint swelling, myalgias or neck pain Neurologic Neurologic: Denies abnormal gait, abnormal speech, dizziness, focal weakness, headache(s), loss of vision, numbness, other visual disturbances, paresthesias, syncope or tingling Psychiatric Psychiatric: Denies anxiety, cognitive impairment, depression, irritability, mood swings or suicidal ideation Endocrine Endocrinology: Denies change in body appearance, cold intolerance, excessive sweating, heat intolerance, polydipsia or polyuria Hematologic/Lymphatic Hematologic/Lymphatic: Denies none, anemia, easy bleeding, easy bruising or lymphadenopathy Allergic/Immunologic Allergic/Immunologic: Denies rhinitis, urticaria, eczemia or asthma Vital Signs Vital Signs Vital Signs: 05/13/25 12:11 05/13/25 12:13 05/13/25 12:27 Temperature 98.3 F 98.9 F Temperature Source Oral Oral Pulse Rate 17 L 93 Pulse Rate [Lying] Pulse Rate [Sitting (for 1 minute prior to obtaining)] Pulse Rate [Standing (for 1 minute prior to obtaining)] Respiratory Rate 120 H 14 Respiratory Effort Normal Respiratory Pattern Normal Blood Pressure 89/53 L 99/72 Blood Pressure [Lying] Blood Pressure [Sitting (for 1 minute prior to obtaining)] Blood Pressure [Standing (for 1 minute prior to obtaining)] Blood Pressure Mean 65 81 Blood Pressure Mean [Lying] Blood Pressure Mean [Sitting (for 1 minute prior to obtaining)] Blood Pressure Mean [Standing (for 1 minute prior to obtaining)] Pulse Ox 94 97 Oxygen Delivery Method Room Air Room Air 05/13/25 13:13 05/13/25 14:00 05/13/25 15:00 Temperature 98.6 F 98.7 F 98.7 F Temperature Source Temporal Temporal Oral Pulse Rate 89 89 78 Pulse Rate [Lying] Pulse Rate [Sitting (for 1 minute prior to obtaining)] Pulse Rate [Standing (for 1 minute prior to obtaining)] Respiratory Rate 18 18 27 H Respiratory Effort Respiratory Pattern Blood Pressure 100/60 107/59 L 105/67 Blood Pressure [Lying] Blood Pressure [Sitting (for 1 minute prior to obtaining)] Blood Pressure [Standing (for 1 minute prior to obtaining)] Blood Pressure Mean 73 75 79 Blood Pressure Mean [Lying] Blood Pressure Mean [Sitting (for 1 minute prior to obtaining)] Blood Pressure Mean [Standing (for 1 minute prior to obtaining)] Pulse Ox 99 97 95 Oxygen Delivery Method Room Air Room Air 05/13/25 16:00 05/13/25 16:02 05/13/25 17:00 Temperature Temperature Source Pulse Rate 81 91 Pulse Rate [Lying] 85 Pulse Rate [Sitting (for 1 minute prior to obtaining)] 92 Pulse Rate [Standing (for 1 minute prior to obtaining)] 114 H Respiratory Rate 14 17 Respiratory Effort Respiratory Pattern Blood Pressure 126/74 H 116/86 H Blood Pressure [Lying] 115/69 Blood Pressure [Sitting (for 1 minute prior to obtaining)] 114/75 Blood Pressure [Standing (for 1 minute prior to obtaining)] 114/92 H Blood Pressure Mean 91 96 Blood Pressure Mean [Lying] 84 Blood Pressure Mean [Sitting (for 1 minute prior to obtaining)] 88 Blood Pressure Mean [Standing (for 1 minute prior to obtaining)] 99 Pulse Ox 96 Oxygen Delivery Method Room Air 05/13/25 17:13 Temperature 98.7 F Temperature Source Pulse Rate 91 Pulse Rate [Lying] Pulse Rate [Sitting (for 1 minute prior to obtaining)] Pulse Rate [Standing (for 1 minute prior to obtaining)] Respiratory Rate 17 Respiratory Effort Respiratory Pattern Blood Pressure 116/86 H Blood Pressure [Lying] Blood Pressure [Sitting (for 1 minute prior to obtaining)] Blood Pressure [Standing (for 1 minute prior to obtaining)] Blood Pressure Mean 96 Blood Pressure Mean [Lying] Blood Pressure Mean [Sitting (for 1 minute prior to obtaining)] Blood Pressure Mean [Standing (for 1 minute prior to obtaining)] Pulse Ox 96 Oxygen Delivery Method Weight Weight: 80.7 kg Body Mass Index (BMI) 32.5 Physical Exam Const alert, oriented x3 and no apparent distress General Appearance: cooperative, well kempt and well developed Orientation / Consciousness: awake, oriented to person, oriented to place and oriented to time HEENT normocephalic, head/scalp atraumatic, hearing grossly normal bilaterally and moist oral mucous membranes Eyes PERRL, EOMs intact bilaterally and conjunctivae normal Neck supple, no JVD, thyroid normal and no carotid bruits General: trachea midline Resp normal respiratory effort, no retractions, no use of accessory muscles and clearto auscultation bilaterally Auscultation: Negative for rales, rhonchi or wheezes Cardio S1 normal heart sound, S2 normal heart sound, no murmurs, no rub and no gallops Cardio Narrative: Heart rate and rhythm is irregular GI normal to inspection, nondistended, normoactive bowel sounds, soft to palpation,non-tender and non-distended Extremity no clubbing, cyanosis or edema Skin no rashes or lesions noted General Skin Exam: no breakdown Neuro oriented x3, CN's II-XII intact bilaterally, moves all extremities, no focal motor deficits and no sensory deficits noted Sensorium / Orientation: awake and alert Speech: speech normal Psych affect normal Results Lab / Micro Data 05/13/25 12:54 05/13/25 12:54 Labs: Laboratory Results - last 24 hr 05/13/25 12:54: WBC 2.4 L, RBC 3.80 L, Hgb 11.5 L, Hct 34.0 L, MCV 89.5, MCH 30.3, MCHC 33.8, RDW Std Deviation 45.4 H, RDW Coeff of [place]ec[place] 14.7 H, Plt Count 225, MPV 9.0, Neut % (Auto) Not Reportable, Absolute Neuts (auto) 0.7 L, Absolute Lymphs (auto) 0.98, Total Counted 100, Neutrophils % (Manual) 28 L, Band Neutrophils % 2, Lymphocytes % (Manual) 40, Monocytes % (Manual) 29 H, Eosinophils % (Manual) 1, Sodium 132 L, Potassium 3.1 L, Chloride 98, Carbon Dioxide 21.5, Anion Gap 13, BUN 12, Creatinine 0.83, Estim Creat Clear Calc 57.64, Est GFR (MDRD) Non-Af 74, BUN/Creatinine Ratio 15.0, Glucose 147 H, Lactic Acid 2.4 H*, Calcium 8.7, Magnesium 1.9, Total Bilirubin 0.42, AST 24, ALT25, Alkaline Phosphatase 74, Total Protein 6.4, Albumin 3.1 L, Globulin 3.4, Albumin/Globulin Ratio 0.9, Lipase 13 05/13/25 15:43: Urine Color Yellow, Urine Clarity Sl. Cloudy, Urine pH 6.5, Ur Specific [place] 1.010, Urine Protein 30 H, Urine Glucose (UA) Normal, Urine Ketones Negative, Urine Occult Blood 10 H, Urine Nitrite Negative, Urine Bilirubin Negative, Urine Urobilinogen Normal, Ur Leukocyte Esterase 500 H, Urine RBC 0-5 SEEN, Urine WBC 5-10 SEEN, Ur Squamous Epith Cells 0-5 SEEN, Amorphous Sediment 1+, Urine Bacteria 2+, Hyaline Casts 0-5 SEEN, Urine Mucus 1+ Rhythm Strip Rhythm Strip: A-fib Rate: 97 Ectopy: None Imaging Radiology Impression Brain CT 05/13/25 12:46 IMPRESSION: Focal calcification in the left parietal lobe measuring up to 1.8 cm, concerningfor metastatic spread in this patient with history of colon cancer. Differential also includes other neoplasms (meningioma)or sequela of prior insult (vascular, infectious/inflammatory). Recommend contrast-enhanced MRI for further evaluation, if not previously performed. Reading Location: [facility] Chest X-Ray 05/13/25 13:05 IMPRESSION: No acute cardiopulmonary abnormality. Reading Location: [facility] Assessment & Plan Assessment/Plan (1) Syncope and collapse: PLAN: Plan 1. Syncope secondary to hypotension from atrial flutter-patient's rate is improved at this time, patient will be admitted to PCU, she will be monitored ontelemetry, she already is on a beta-leonardo as an outpatient and this will be continued. Patient will be given IV fluids #2 new onset atrial flutter with RVR-I will talk with the patient tomorrow concerning full anticoagulation, for now, patient will be monitored and will receive beta-leonardo, patient will undergo an echocardiogram on 05/15/2025. #[address] of the brain indicating possible metastatic cancer-patient will undergo an MRI on 05/15/2025, she follows up with oncology as an outpatient. #4 colon cancer-under active treatment with chemotherapy, complicates care, management, recovery, and prognosis #5 hypokalemia-patient will be given potassium supplementation through her IV, BMP will be rechecked #6 acute cystitis-patient will be treated with Rocephin, cultures are pending Total clinical time spent by myself addressing the patient's medical issues, reviewing all of her data, and collaborating with patient's care team: 75 minutes Charges/Coding Visit Charges Inpatient E&M: 28288 Init Hosp L3 05/13/258 <Electronically signed by Maciel Montesinos DO> Cosigner Signature (if applicable): CC: Dr. Maciel Montesinos DO; JUVENTINO Pérez~ Signed [facility] Work Phone: 1(252) 757-111607-12-2025 Evaluation note* Diagnosis Onset Date Resolution Status Admit Date Syncope and collapse acute May 13, 2025 5:23pm Colon cancer chronic May 13 5:23pm Abnormal brain CT inactive May 132024 5:23pm Acidosis, lactic inactive May 5:23pm Acute hypokalemia inactive May 132024 5:23pm Acute UTI inactive May 13 5:23pm Closed head injury inactive May 022024 5:23pm Leukopenia inactive May 13 5:23pm Neutropenia inactive May 13 5:23pm New onset atrial flutter inactive May 13, 2025 5:23pm Personal history of chemotherapy inactive May 13, 2025 5:23pm Encounter for chemotherapy management acute May 30, 2025 7:28am Anemia chronic May 30 7:28am Colon cancer chronic May 30 7:28am 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 May 30, 2025 7:28am Lung nodules chronic May 30 7:28am Regional lymph node metastasis present chronic May 30 7:28am Anemia chronic June 13 8:19am Colon cancer chronic June 13, 2025 8:19am 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 [id number] 8:19am Lung nodules chronic June 13, 2025 8:19am Regional lymph node metastasis present chronic June 13, 2025 8:19am Encounter for chemotherapy management acute June 27 8:53am Anemia chronic June 27 8:53am Colon cancer chronic June 27, 2025 8:53am 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 st 2024 8:53am Lung nodules chronic June 27, 2025 8:53am Regional lymph node metastasis present chronic June 27, 2025 8:53am Anemia chronic July 11, 2025 8:50am Colon cancer chronic July 8:50am 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 Sept ember 2024 8:50am Lung nodules chronic July 8:50am Regional lymph node metastasis present chronic July 8:50am Anemia chronic July 8:48am Colon cancer chronic July 252024 8:48am 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 Sept ember 2024 8:48am Lung nodules chronic July 252024 8:48am Regional lymph node metastasis present chronic July d2024 8:48am Atrial flutter acute July 26, 2025 1:29pm Hypertension chronic July 262024 1:29pm Anemia chronic August 08, 9:12am Colon cancer chronic August 08, 2025 9:12am 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 Octo yi 2024 9:12am Lung nodules August 08, 2025 9:12am Regional lymph node metastasis present August 08, 2025 9:12am Anemia chronic August 22, 2025 9:06am Colon cancer chronic August 9:06am 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 Octo yi 2024 9:06am Lung nodules august 9:06am Regional lymph node metastasis present August 22, 2025 9:06am Anemia chronic September 05, 2025 9:00am Colon cancer chronic September 9:00am 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 Nove [id number] 9:00am Lung nodules september 9:00am Regional lymph node metastasis present September 05, 2025 9:00am [facility] Work Phone: 1(541) 515-910807-12-2025 History and physical note [facility] Medical Records Department [address] [place] [address] H&P Exam - Hospitalist 05/13/25 1750 MR#: [id number] Acct: [id number] Name: JESSIKA CARRILLO Rep #:[id number] : 1950 74 From: Maciel Montesinos DO PCP: JUVENTINO Pérez Status:ADM IN Location: [facility] [id number] HPI - General General Date of Admission: 05/13/25 Date of Service: 05/13/25 Chief Complaint: Syncope, weakness HPI Narrative JESSIKA CARRILLO, is a 74 F who presents to the emergency room at [facility] at the advice of her PCP due to a syncopal episode she had yesterday and generalized weakness. Patient was undertreatment for colon cancer and is on chemotherapy. Workup in the emergency room included a CT of the brain which showed evidence of a left parietal calcification concerning for metastatic disease, she was noted to be hypotensive and tachycardic, EKG was obtained and it was noted that she was in atrial flutter-patient denied ever having that rhythm before. Patient was fluids and labs were obtained, patient's total whiteblood cell count was low at 2.4, hemoglobin was 11.5, chemistry profile was remarkable for sodium 132 and a potassium of 3.1. Lactic acid was 2.4 and glucose was 147. UA was obtained which showed +2 bacteria, 5-10 WBCs and 0-5 RBCs. Patient was felt to have acute cystitis and new onset atrial flutter with rapid ventricular response as well as hypokalemia. Patient's blood pressure improved with administration of IV fluid, patientwas given IV Rocephin, she was not given anything for her atrial flutter as her rate eventually lowered. Patient will be admitted to PCU, IV antibiotics will be continued and she will be given IV flui ds, patient will undergo an MRI on 05/15/2025 due to her abnormal brain CT. [facility] Medical History Anemia Diarrhea due to drug [...] ?Type lisinopril 20 1 tab PO DAILY 03/18/2105/02 History mg-hydrochlorothiazide 25 mg tablet metoprolol succinate 50 mg 50 mg PO DAILY 05/13/2510/26 History tablet,extended release 24 hr Allergy/AdvReac Type Severity Reaction Status Date / Time No Known Allergies Allergy Verified 05/02/25 08:04 Family History Father Heart disease Aunt Breast cancer Surgical History History of hysteroscopy History of colectomy History of total right knee replacement Hx of colonoscopy Social History Smoking Status: Former smoker Tobacco: How many years used: 5 alcohol intake: never substance use type: does not use ROS Constitutional Constitutional: Reports fatigue and weakness; Denies anorexia, change in weight,chills, fever(s) ornight sweats Eyes Eyes: Denies blurry vision, change in vision, discharge from eye(s) or eye pain Cardiovascular Cardiovascular: Reports lightheadedness and syncope; Denies chest pain, claudication, edema or palpitations Respiratory/Chest Respiratory/Chest: Denies cough, hemoptysis, shortness of breath at rest or shortness of breath with exertion Gastrointestinal Gastrointestinal: Denies abdominal pain, constipation, diarrhea, hematemesis, hematochezia, melena,nausea or vomiting Genitourinary Genitourinary: Denies dysuria, hematuria, urinary frequency, urinary hesitancy, urinary incontinence or urinary urgency Musculoskeletal Musculoskeletal: Denies back pain, joint pain, joint stiffness, joint swelling, myalgias or neck pain Neurologic Neurologic: Denies abnormal gait, abnormal speech, dizziness, focal weakness, headache(s), loss of vision, numbness, other visual disturbances, paresthesias, syncope or tingling Psychiatric Psychiatric: Denies anxiety, cognitive impairment, depression, irritability, mood swings or suicidal ideation Endocrine Endocrinology: Denies change in body appearance, cold intolerance, excessive sweating, heat intolerance, polydipsia or polyuria Hematologic/Lymphatic Hematologic/Lymphatic: Denies none, anemia, easy bleeding, easy bruising or lymphadenopathy Allergic/Immunologic Allergic/Immunologic: Denies rhinitis, urticaria, eczemia or asthma Vital Signs Vital Signs Vital Signs: 05/13/25 12:11 05/13/25 12:13 05/13/25 12:27 Temperature 98.3 F 98.9 F Temperature Source Oral Oral Pulse Rate 17 L 93 Pulse Rate [Lying] Pulse Rate [Sitting (for 1 minute prior to obtaining)] Pulse Rate [Standing (for 1 minute prior to obtaining)] Respiratory Rate 120 H 14 Respiratory Effort Normal Respiratory Pattern Normal Blood Pressure 89/53 L 99/72 Blood Pressure [Lying] Blood Pressure [Sitting (for 1 minute prior to obtaining)] Blood Pressure [Standing (for 1 minute prior to obtaining)] Blood Pressure Mean 65 81 Blood Pressure Mean [Lying] Blood Pressure Mean [Sitting (for 1 minute prior to obtaining)] Blood Pressure Mean [Standing (for 1 minute prior to obtaining)] Pulse Ox 94 97 Oxygen Delivery Method Room Air Room Air 05/13/25 13:13 05/13/25 14:00 05/13/25 15:00 Temperature 98.6 F 98.7 F 98.7 F Temperature Source Temporal Temporal Oral Pulse Rate 89 89 78 Pulse Rate [Lying] Pulse Rate [Sitting (for 1 minute prior to obtaining)] Pulse Rate [Standing (for 1 minute prior to obtaining)] Respiratory Rate 18 18 27 H Respiratory Effort Respiratory Pattern Blood Pressure 100/60 107/59 L 105/67 Blood Pressure [Lying] Blood Pressure [Sitting (for 1 minute prior to obtaining)] Blood Pressure [Standing (for 1 minute prior to obtaining)] Blood Pressure Mean 73 75 79 Blood Pressure Mean [Lying] Blood Pressure Mean [Sitting (for 1 minute prior to obtaining)] Blood Pressure Mean [Standing (for 1 minute prior to obtaining)] Pulse Ox 99 97 95 Oxygen Delivery Method Room Air Room Air 05/13/25 16:00 05/13/25 16:02 05/13/25 17:00 Temperature Temperature Source Pulse Rate 81 91 Pulse Rate [Lying] 85 Pulse Rate [Sitting (for 1 minute prior to obtaining)] 92 Pulse Rate [Standing (for 1 minute prior to obtaining)] 114 H Respiratory Rate 14 17 Respiratory Effort Respiratory Pattern Blood Pressure 126/74 H 116/86 H Blood Pressure [Lying] 115/69 Blood Pressure [Sitting (for 1 minute prior to obtaining)] 114/75 Blood Pressure [Standing (for 1 minute prior to obtaining)] 114/92 H Blood Pressure Mean 91 96 Blood Pressure Mean [Lying] 84 Blood Pressure Mean [Sitting (for 1 minute prior to obtaining)] 88 Blood Pressure Mean [Standing (for 1 minute prior to obtaining)] 99 Pulse Ox 96 Oxygen Delivery Method Room Air 05/13/25 17:13 Temperature 98.7 F Temperature Source Pulse Rate 91 Pulse Rate [Lying] Pulse Rate [Sitting (for 1 minute prior to obtaining)] Pulse Rate [Standing (for 1 minute prior to obtaining)] Respiratory Rate 17 Respiratory Effort Respiratory Pattern Blood Pressure 116/86 H Blood Pressure [Lying] Blood Pressure [Sitting (for 1 minute prior to obtaining)] Blood Pressure [Standing (for 1 minute prior to obtaining)] Blood Pressure Mean 96 Blood Pressure Mean [Lying] Blood Pressure Mean [Sitting (for 1 minute prior to obtaining)] Blood Pressure Mean [Standing (for 1 minute prior to obtaining)] Pulse Ox 96 Oxygen Delivery Method Weight Weight: 80.7 kg Body Mass Index (BMI) 32.5 Physical Exam Const alert, oriented x3 and no apparent distress General Appearance: cooperative, well kempt and well developed Orientation / Consciousness: awake, oriented to person, oriented to place and oriented to time HEENT normocephalic, head/scalp atraumatic, hearing grossly normal bilaterally and moist oral mucous membranes Eyes PERRL, EOMs intact bilaterally and conjunctivae normal Neck supple, no JVD, thyroid normal and no carotid bruits General: trachea midline Resp normal respiratory effort, no retractions, no use of accessory muscles and clearto auscultation bilaterally Auscultation: Negative for rales, rhonchi or wheezes Cardio S1 normal heart sound, S2 normal heart sound, no murmurs, no rub and no gallops Cardio Narrative: Heart rate and rhythm is irregular GI normal to inspection, nondistended, normoactive bowel sounds, soft to palpation,non-tender and non-distended Extremity no clubbing, cyanosis or edema Skin no rashes or lesions noted General Skin Exam: no breakdown Neuro oriented x3, CN's II-XII intact bilaterally, moves all extremities, no focal motor deficits and no sensory deficits noted Sensorium / Orientation: awake and alert Speech: speech normal Psych affect normal Results Lab / Micro Data 05/13/25 12:54 05/13/25 12:54 Labs: Laboratory Results - last 24 hr 05/13/25 12:54: WBC 2.4 L, RBC 3.80 L, Hgb 11.5 L, Hct 34.0 L, MCV 89.5, MCH 30.3, MCHC 33.8, RDW Std Deviation 45.4 H, RDW Coeff of [place]ec[place] 14.7 H, Plt Count 225, MPV 9.0, Neut % (Auto) Not Reportable, Absolute Neuts (auto) 0.7 L, Absolute Lymphs (auto) 0.98, Total Counted 100, Neutrophils % (Manual) 28 L, Band Neutrophils % 2, Lymphocytes % (Manual) 40, Monocytes % (Manual) 29 H, Eosinophils % (Manual) 1, Sodium 132 L, Potassium 3.1 L, Chloride 98, Carbon Dioxide 21.5, Anion Gap 13, BUN 12, Creatinine 0.83, Estim Creat Clear Calc 57.64, Est GFR (MDRD) Non-Af 74, BUN/Creatinine Ratio 15.0, Glucose 147 H, Lactic Acid 2.4 H*, Calcium 8.7, Magnesium 1.9, Total Bilirubin 0.42, AST 24, ALT25, Alkaline Phosphatase 74, Total Protein 6.4, Albumin 3.1 L, Globulin 3.4, Albumin/Globulin Ratio 0.9, Lipase 13 05/13/25 15:43: Urine Color Yellow, Urine Clarity Sl. Cloudy, Urine pH 6.5, Ur Specific [place] 1.010, Urine Protein 30 H, Urine Glucose (UA) Normal, Urine Ketones Negative, Urine Occult Blood 10 H, Urine Nitrite Negative, Urine Bilirubin Negative, Urine Urobilinogen Normal, Ur Leukocyte Esterase 500 H, Urine RBC 0-5 SEEN, Urine WBC 5-10 SEEN, Ur Squamous Epith Cells 0-5 SEEN, Amorphous Sediment 1+, Urine Bacteria 2+, Hyaline Casts 0-5 SEEN, Urine Mucus 1+ Rhythm Strip Rhythm Strip: A-fib Rate: 97 Ectopy: None Imaging Radiology Impression Brain CT 05/13/25 12:46 IMPRESSION: Focal calcification in the left parietal lobe measuring up to 1.8 cm, concerningfor metastatic spread in this patient with history of colon cancer. Differential also includes other neoplasms (meningioma)or sequela of priorinsult (vascular, infectious/inflammatory). Recommend contrast-enhanced MRI for further evaluation, if not previouslyperformed. Reading Location: [id number] Chest X-Ray 05/13/25 13:05 IMPRESSION: No acute cardiopulmonary abnormality. Reading Location: [facility] Assessment & Plan Assessment/Plan (1) Syncope and collapse: PLAN: Plan 1. Syncope secondary to hypotension from atrial flutter-patient's rate is improved at this time, patient will be admitted to PCU, she will be monitored ontelemetry, she already is on a beta-leonardo as an outpatient and this will be continued. Patient will be given IV fluids #2 new onset atrial flutter with RVR-I will talk with the patient tomorrow concerning full anticoagulation, for now, patient will be monitored and will receive beta-leonardo, patient will undergo an echocardiogram on 05/15/2025. #[address] of the brain indicating possible metastatic cancer-patient will undergo an MRI on 05/15/2025, she follows up with oncology as an outpatient. #4 colon cancer-under active treatment with chemotherapy, complicates care, management, recovery, and prognosis #5 hypokalemia-patient will be given potassium supplementation through her IV, BMP will be rechecked #6 acute cystitis-patient will be treated with Rocephin, cultures are pending Total clinical time spent by myself addressing the patient's medical issues, reviewing all of her data, and collaborating with patient's care team: 75 minutes Charges/Coding Visit Charges Inpatient E&M: 24128 Init Hosp L3 05/13/25 2080 Cosigner Signature (if applicable): CC: Dr. Maciel Montesinos, DO; JUVENTINO Pérez~ Signed [facility]07-12-2025 Discharge summary [facility] Medical Records Department [address] [place] [address] Emergency Department Summary 05/13/25 MR#: [id number] Acct: [id number] Name: JESSIKA CARRILLO Rep #:[id number] : 1950 74 From: Cadence Clancy PCP: JUVENTINO Pérez Status:REG ER Location: ED HPI History of Present Illness Chief Complaint: Syncope Informant: patient and family Narrative Narrative: Patient is a 74-year-old female with history of colon cancer currently undergoing chemotherapy and status post right hemicolectomy (December 2024). Her last treatment was May 02. States this week she has had increased diarrhea, decreased appetite and dizziness. Denies any blood in her stool. Denies any vomiting. Yesterday was going unlock the door before her grandson came over andshe passed out. She did hit the right side of her head. She states everything went black before she fell. She woke upon the ground. She is not exactly surehow long she was on the ground was able to get herself back up. Told her daughter about it today who called the office and they recommended either pushing fluids or coming in for evaluation. They opted to come in. Patient denies any fever or chills. Denies any chest pain or shortness of breath. Denies any swelling of her legs. Does not have a colostomy. PFSH PFS Medical History Anemia Diarrhea due to drug [...] ?Type lisinopril 20 1 tab PO DAILY 03/18/2105/02 History mg-hydrochlorothiazide 25 mg tablet metoprolol succinate 50 mg 50 mg PO DAILY 05/13/2510/26 History tablet,extended release 24 hr Allergy/AdvReac Type Severity Reaction Status Date / Time No Known Allergies Allergy Verified 05/02/25 08:04 Family History Father Heart disease Aunt Breast cancer Surgical History History of hysteroscopy History of colectomy History of total right knee replacement Hx of colonoscopy Social History Smoking Status: Former smoker Tobacco: How many years used: 5 alcohol intake: never substance use type: does not use ROS ROS ED Constitutional Constitutional ED: Reports other Details: Decreased appetite ; Denies chills or fever(s) Eyes Eyes: Denies change in vision ENT ENT ED: Denies sore throat Cardiovascular Cardiovascular: Denies chest pain or palpitations Respiratory/Chest Respiratory/Chest: Denies cough or dyspnea Gastrointestinal Gastrointestinal: Reports diarrhea and nausea; Denies abdominal pain or vomiting Musculoskeletal Musculoskeletal: Denies arthralgias or myalgias Integumentary Reports other Details: Bruising to the right mandaeism Neurologic Neurologic: Reports weakness; Denies headache(s) or paresthesias Hematologic/Lymphatic Hematologic/Lymphatic: Denies easy bleeding or easy bruising EXAM Physical Exam Const Vital Signs: 05/13/25 12:11 05/13/25 12:13 05/13/25 12:27 Temperature 98.3 F 98.9 F Temperature Source Oral Oral Pulse Rate 17 L 93 Pulse Rate [Lying] Pulse Rate [Sitting (for 1 minute prior to obtaining)] Pulse Rate [Standing (for 1 minute prior to obtaining)] Respiratory Rate 120 H 14 Respiratory Effort Normal Respiratory Pattern Normal Blood Pressure 89/53 L 99/72 Blood Pressure [Lying] Blood Pressure [Sitting (for 1 minute prior to obtaining)] Blood Pressure [Standing (for 1 minute prior to obtaining)] Blood Pressure Mean 65 81 Blood Pressure Mean [Lying] Blood Pressure Mean [Sitting (for 1 minute prior to obtaining)] Blood Pressure Mean [Standing (for 1 minute prior to obtaining)] Pulse Ox 94 97 Oxygen Delivery Method Room Air Room Air 05/13/25 13:13 05/13/25 14:00 05/13/25 15:00 Temperature 98.6 F 98.7 F 98.7 F Temperature Source Temporal Temporal Oral Pulse Rate 89 89 78 Pulse Rate [Lying] Pulse Rate [Sitting (for 1 minute prior to obtaining)] Pulse Rate [Standing (for 1 minute prior to obtaining)] Respiratory Rate 18 18 27 H Respiratory Effort Respiratory Pattern Blood Pressure 100/60 107/59 L 105/67 Blood Pressure [Lying] Blood Pressure [Sitting (for 1 minute prior to obtaining)] Blood Pressure [Standing (for 1 minute prior to obtaining)] Blood Pressure Mean 73 75 79 Blood Pressure Mean [Lying] Blood Pressure Mean [Sitting (for 1 minute prior to obtaining)] Blood Pressure Mean [Standing (for 1 minute prior to obtaining)] Pulse Ox 99 97 95 Oxygen Delivery Method Room Air Room Air 05/13/25 16:00 05/13/25 16:02 Temperature Temperature Source Pulse Rate 81 Pulse Rate [Lying] 85 Pulse Rate [Sitting (for 1 minute prior to obtaining)] 92 Pulse Rate [Standing (for 1 minute prior to obtaining)] 114 H Respiratory Rate 14 Respiratory Effort Respiratory Pattern Blood Pressure 126/74 H Blood Pressure [Lying] 115/69 Blood Pressure [Sitting (for 1 minute prior to obtaining)] 114/75 Blood Pressure [Standing (for 1 minute prior to obtaining)] 114/92 H Blood Pressure Mean 91 Blood Pressure Mean [Lying] 84 Blood Pressure Mean [Sitting (for 1 minute prior to obtaining)] 88 Blood Pressure Mean [Standing (for 1 minute prior to obtaining)] 99 Pulse Ox 96 Oxygen Delivery Method Room Air Positive well nourished and well developed General Appearance ED: well developed and NAD HEENT Reports dry mucous membranes HEENT Narrative: Ecchymosis to the right mandaeism area. No hematoma appreciated. No signs of facial trauma. No hemotympanum. trauma Mouth ED: Yes dry mucous membranes Mouth: dry mucous membranes Neck supple and no JVD Chest Wall inspection of chest normal and palpation of chest normal Resp normal respiratory effort and clear to auscultation bilaterally Cardio regular rhythm and no murmurs Rate: tachycardic GI normal to inspection, nondistended, normoactive bowel sounds and non-tender Auscultation: normoactive bowel sounds Palpation: soft; Negative for tender or guarding Extremity normal to inspection General Extremety ED: Negative for edema General Extremity: Negative for edema Neuro oriented x3 Sensorium / Orientation: alert Motor Exam: general weakness Psych mental status grossly normal MDM MDM MDM Narrative Medical decision making narrative: Patient evaluated for near syncopal episode that occurred yesterday with subsequent head injury. She is been very weak. Upon arrival she is tachycardicand hypotensive. Side claiming chest pain shortness of breath. Has been havingongoing diarrhea. No report of any fevers. Differential includes dehydration, sepsis, RODOLFO, hypovolemia, arrhythmia, intracranial hemorrhage, electrolyte disturbance. Given her ongoing diarrhea lower suspicion for bowel obstruction. She is notany abdominal pain is low suspicion for acute intra-abdominal infection or acute surgical process. Patient does have a leukopenia with white blood cell count of 2.4 and absolute neutrophil count of 0.7. She is afebrile. She does not require empiric antibiotics or cultures at this time. Lactate elevated 2.4 and it is unclear ifthis is from hypovolemia, hypoperfusion or sepsis. BMP shows hyponatremia the sodium 132, potassium 3.1 however bicarb and anion gap as well as kidney function are normal. Liver enzymes are normal. CT of the brain obtained because of her syncopal episode and head injury. Thereis a focal dense calcification of the left parotid lobe measuring 1.8 cm which is concern for metastatic spread. No report of any vasogenic edema associated with it. Patient is given 2 L of IV fluid. On repeat evaluation she states she is feeling better. She is finally able to provide urine. This is pending. Will obtain orthostatic vital signs. She is unaware of any history of atrial fibrillation which she states once her PCP did tell her that her heart soundedirregular. Case discussed with Dr. Conn, oncology on-call about the CT findings. He states she will need an MRI. If she gets discharged home they can arrange for it on Thursday. States that for diarrhea associated with her chemotherapy she canoff- label use Imodium every 2 hours for up to 12 doses in 1 day. No other recommendations at this time. Repeat EKG continues show atrial flutter. I do not see any prior record in our system of a history of atrial flutter. After 2 L of fluid patient's blood pressure is no longer orthostatic positive but her heart rate does go up. Her urinalysis is concerning for infection with 500 leukocyte esterase, 5-10 white blood cells and 2+ bacteria. Given presentation of syncope, leukopenia, urinary tract infection, dehydration,head injury and possible new onset atrial flutter I do think she would benefit from admission for further monitoring overnight. Patient is agreeable at this time. Will discuss with hospitalist for admission. Will hold off on anticoagulation given her recent head injury and possible new brain mass. Does notrequire rate control at this time. Lab Data Attestation: I reviewed the patient's lab results. Labs: Laboratory Results - last 24 hr 05/13/25 05/13/25 12:54 15:43 WBC 2.4 L RBC 3.80 L Hgb 11.5 L Hct 34.0 L MCV 89.5 MCH 30.3 MCHC 33.8 RDW Std Deviation 45.4 H RDW Coeff of Kecia 14.7 H Plt Count 225 MPV 9.0 Neut % (Auto) Not Reportable Absolute Neuts (auto) 0.7 L Absolute Lymphs (auto) 0.98 Total Counted 100 Neutrophils % (Manual) 28 L Band Neutrophils % 2 Lymphocytes % (Manual) 40 Monocytes % (Manual) 29 H Eosinophils % (Manual) 1 Sodium 132 L Potassium 3.1 L Chloride 98 Carbon Dioxide 21.5 Anion Gap 13 BUN 12 Creatinine 0.83 Estim Creat Clear Calc 57.64 Est GFR (MDRD) Non-Af 74 BUN/Creatinine Ratio 15.0 Glucose 147 H Lactic Acid 2.4 H* Calcium 8.7 Magnesium 1.9 Total Bilirubin 0.42 AST 24 ALT 25 Alkaline Phosphatase 74 Total Protein 6.4 Albumin 3.1 L Globulin 3.4 Albumin/Globulin Ratio 0.9 Lipase 13 Urine Color Yellow Urine Clarity Sl. Cloudy Urine pH 6.5 Ur Specific [place] 1.010 Urine Protein 30 H Urine Glucose (UA) Normal Urine Ketones Negative Urine Occult Blood 10 H Urine Nitrite Negative Urine Bilirubin Negative Urine Urobilinogen Normal Ur Leukocyte Esterase 500 H Urine RBC 0-5 SEEN Urine WBC 5-10 SEEN Ur Squamous Epith Cells 0-5 SEEN Amorphous Sediment 1+ Urine Bacteria 2+ Hyaline Casts 0-5 SEEN Urine Mucus 1+ Radiography Chest X-Ray - ED: 1 View, Read by ED Physician, Read by Radiologist and No AcuteDisease Diagnostic Testing: Clinical Impression(s) from Imaging Studies Brain CT 05/13/25 12:46 IMPRESSION: Focal calcification in the left parietal lobe measuring up to 1.8 cm, concerningfor metastatic spread in this patient with history of colon cancer. Differential also includes other neoplasms (meningioma)or sequela of priorinsult (vascular, infectious/inflammatory). Recommend contrast-enhanced MRI for further evaluation, if not previouslyperformed. Reading Location: [facility] Chest X-Ray 05/13/25 13:05 IMPRESSION: No acute cardiopulmonary abnormality. Reading Location: [facility] Rhythm Strip Rhythm Strip: A-fib Rate: 97 Ectopy: None EKG Initial EKG: Attestation: I personally reviewed and interpreted this EKG as follows: Interpretation: Atrial Flutter Comments: Atrial flutter rate of 97 bpm with variable AV block Normal axis Normal ST segments Normal QT/QTc Compared to prior EKG patient now appears to have atrial flutter Follow-up EKG: Attestation: I personally reviewed and interpreted this EKG as follows: Interpretation: Atrial Flutter Comments: Atrial flutter with variable AV block at a rate of 82 bpm Normal axis Normal intervals Normal ST segments Low voltage QRS Management Discussion w/another healthcare provider: [employer] (oncology ) Discharge Plan Triage Chief Complaint: Syncope ED Provider: Cadence Castillo Dx/Rx/DC Orders Clinical Impression: Syncope and collapse, Colon cancer, Closed head injury, Acute hypokalemia, Neutropenia, Acidosis, lactic, New onset atrial flutter, Leukopenia, Abnormal brain CT, Acute UTI, Personal history of chemotherapy Prescriptions: No Action lisinopril-hydrochlorothiazide 20-25 mg Tablet 1 tab PO DAILY metoprolol succinate 50 mg tablet extended release 24 hr 50 mg PO DAILY Primary Care Provider: Shu Chow Referrals: Shu Chow PA [Primary Care Provider] - Print Language: Sierra Leonean What to do if you have Problems For any increased pain, shortness of breath, bleeding, nausea or vomiting, chestpain, or any unexpected problems, contact your Primary Care Provider. Call [facility] ([phone]) or report tothe closest Emergency Room. Call 911 if necessary. 05/13/25 1700 Cosigner Signature (if applicable): CC: JUVENTINO Pérez ~ Signed [facility]07-12-2025 Discharge summary Author aCdence Castillo [facility] Note Date/Time May 13, 2025 5:00 pm [facility] Medical Records Department [address] [place] [address] Emergency Department Summary 05/13/25 MR#: [id number] Acct: [id number] Name: JESSIKA CARRILLO Rep #:[id number] : 1950 74 From: Cadence Clancy PCP: JUVENTINO Pérez Status:REG ER Location: ED HPI History of Present Illness Chief Complaint: Syncope Informant: patient and family Narrative Narrative: Patient is a 74-year-old female with history of colon cancer currently undergoing chemotherapy and status post right hemicolectomy (December 2024). Her last treatment was May 02. States this week she has had increased diarrhea, decreased appetite and dizziness. Denies any blood in her stool. Denies any vomiting. Yesterday was going unlock the door before her grandson came over andshe passed out. She did hit the right side of her head. She states everything went black before she fell. She woke up on the ground. She is not exactly surehow long she was on the ground was able to get herself back up. Told her daughter about it today who called the office and they recommended either pushing fluids or coming in for evaluation. They opted to come in. Patient denies any fever or chills. Denies any chest pain or shortness of breath. Denies any swelling of her legs. Does not have a colostomy. PFSH PFS Medical History Anemia Diarrhea due to drug [...] ?Type lisinopril 20 1 tab PO DAILY 03/18/2105/02 History mg-hydrochlorothiazide 25 mg tablet metoprolol succinate 50 mg 50 mg PO DAILY 05/13/2510/26 History tablet,extended release 24 hr Allergy/AdvReac Type Severity Reaction Status Date / Time No Known Allergies Allergy Verified 05/02/25 08:04 Family History Father Heart disease Aunt Breast cancer Surgical History History of hysteroscopy History of colectomy History of total right knee replacement Hx of colonoscopy Social History Smoking Status: Former smoker Tobacco: How many years used: 5 alcohol intake: never substance use type: does not use ROS ROS ED Constitutional Constitutional ED: Reports other Details: Decreased appetite ; Denies chills or fever(s) Eyes Eyes: Denies change in vision ENT ENT ED: Denies sore throat Cardiovascular Cardiovascular: Denies chest pain or palpitations Respiratory/Chest Respiratory/Chest: Denies cough or dyspnea Gastrointestinal Gastrointestinal: Reports diarrhea and nausea; Denies abdominal pain or vomiting Musculoskeletal Musculoskeletal: Denies arthralgias or myalgias Integumentary Reports other Details: Bruising to the right mandaeism Neurologic Neurologic: Reports weakness; Denies headache(s) or paresthesias Hematologic/Lymphatic Hematologic/Lymphatic: Denies easy bleeding or easy bruising EXAM Physical Exam Const Vital Signs: 05/13/25 12:11 05/13/25 12:13 05/13/25 12:27 Temperature 98.3 F 98.9 F Temperature Source Oral Oral Pulse Rate 17 L 93 Pulse Rate [Lying] Pulse Rate [Sitting (for 1 minute prior to obtaining)] Pulse Rate [Standing (for 1 minute prior to obtaining)] Respiratory Rate 120 H 14 Respiratory Effort Normal Respiratory Pattern Normal Blood Pressure 89/53 L 99/72 Blood Pressure [Lying] Blood Pressure [Sitting (for 1 minute prior to obtaining)] Blood Pressure [Standing (for 1 minute prior to obtaining)] Blood Pressure Mean 65 81 Blood Pressure Mean [Lying] Blood Pressure Mean [Sitting (for 1 minute prior to obtaining)] Blood Pressure Mean [Standing (for 1 minute prior to obtaining)] Pulse Ox 94 97 Oxygen Delivery Method Room Air Room Air 05/13/25 13:13 05/13/25 14:00 05/13/25 15:00 Temperature 98.6 F 98.7 F 98.7 F Temperature Source Temporal Temporal Oral Pulse Rate 89 89 78 Pulse Rate [Lying] Pulse Rate [Sitting (for 1 minute prior to obtaining)] Pulse Rate [Standing (for 1 minute prior to obtaining)] Respiratory Rate 18 18 27 H Respiratory Effort Respiratory Pattern Blood Pressure 100/60 107/59 L 105/67 Blood Pressure [Lying] Blood Pressure [Sitting (for 1 minute prior to obtaining)] Blood Pressure [Standing (for 1 minute prior to obtaining)] Blood Pressure Mean 73 75 79 Blood Pressure Mean [Lying] Blood Pressure Mean [Sitting (for 1 minute prior to obtaining)] Blood Pressure Mean [Standing (for 1 minute prior to obtaining)] Pulse Ox 99 97 95 Oxygen Delivery Method Room Air Room Air 05/13/25 16:00 05/13/25 16:02 Temperature Temperature Source Pulse Rate 81 Pulse Rate [Lying] 85 Pulse Rate [Sitting (for 1 minute prior to obtaining)] 92 Pulse Rate [Standing (for 1 minute prior to obtaining)] 114 H Respiratory Rate 14 Respiratory Effort Respiratory Pattern Blood Pressure 126/74 H Blood Pressure [Lying] 115/69 Blood Pressure [Sitting (for 1 minute prior to obtaining)] 114/75 Blood Pressure [Standing (for 1 minute prior to obtaining)] 114/92 H Blood Pressure Mean 91 Blood Pressure Mean [Lying] 84 Blood Pressure Mean [Sitting (for 1 minute prior to obtaining)] 88 Blood Pressure Mean [Standing (for 1 minute prior to obtaining)] 99 Pulse Ox 96 Oxygen Delivery Method Room Air Positive well nourished and well developed General Appearance ED: well developed and NAD HEENT Reports dry mucous membranes HEENT Narrative: Ecchymosis to the right mandaeism area. No hematoma appreciated. No signs of facial trauma. No hemotympanum. trauma Mouth ED: Yes dry mucous membranes Mouth: dry mucous membranes Neck supple and no JVD Chest Wall inspection of chest normal and palpation of chest normal Resp normal respiratory effort and clear to auscultation bilaterally Cardio regular rhythm and no murmurs Rate: tachycardic GI normal to inspection, nondistended, normoactive bowel sounds and non-tender Auscultation: normoactive bowel sounds Palpation: soft; Negative for tender or guarding Extremity normal to inspection General Extremety ED: Negative for edema General Extremity: Negative for edema Neuro oriented x3 Sensorium / Orientation: alert Motor Exam: general weakness Psych mental status grossly normal MDM MDM MDM Narrative Medical decision making narrative: Patient evaluated for near syncopal episode that occurred yesterday with subsequent head injury. She is been very weak. Upon arrival she is tachycardicand hypotensive. Side claiming chest pain shortness of breath. Has been havingongoing diarrhea. No report of any fevers. Differential includes dehydration, sepsis, RODOLFO, hypovolemia, arrhythmia, intracranial hemorrhage, electrolyte disturbance. Given her ongoing diarrhea lower suspicion for bowel obstruction. She is not any abdominal pain is low suspicion for acute intra-abdominal infection or acute surgical process. Patient does have a leukopenia with white blood cell count of 2.4 and absolute neutrophil count of 0.7. She is afebrile. She does not require empiric antibiotics or cultures at this time. Lactate elevated 2.4 and it is unclear ifthis is from hypovolemia, hypoperfusion or sepsis. BMP shows hyponatremia the sodium 132, potassium 3.1 however bicarb and anion gap as well as kidney function are normal. Liver enzymes are normal. CT of the brain obtained because of her syncopal episode and head injury. Thereis a focal dense calcification of the left parotid lobe measuring 1.8 cm which is concern for metastatic spread. No report of any vasogenic edema associated with it. Patient is given 2 L of IV fluid. On repeat evaluation she states she is feeling better. She is finally able to provide urine. This is pending. Will obtain orthostatic vital signs. She is unaware of any history of atrial fibrillation which she states once her PCP did tell her that her heart sounded irregular. Case discussed with Dr. Conn, oncology on-call about the CT findings. He states she will need an MRI. If she gets discharged home they can arrange for it on Thursday. States that for diarrhea associated with her chemotherapy she canoff-label use Imodium every 2 hours for up to 12 doses in 1 day. No other recommendations at this time. Repeat EKG continues show atrial flutter. I do not see any prior record in our system of a history of atrial flutter. After 2 L of fluid patient's blood pressure is no longer orthostatic positive but her heart rate does go up. Her urinalysis is concerning for infection with 500 leukocyte esterase, 5-10 white blood cells and 2+ bacteria. Given presentation of syncope, leukopenia, urinary tract infection, dehydration,head injury and possible new onset atrial flutter I do think she would benefit from admission for further monitoring overnight. Patient is agreeable at this time. Will discuss with hospitalist for admission. Will hold off on anticoagulation given her recent head injury and possible new brain mass. Does not require rate control at this time. Lab Data Attestation: I reviewed the patient's lab results. Labs: Laboratory Results - last 24 hr 05/13/25 05/13/25 12:54 15:43 WBC 2.4 L RBC 3.80 L Hgb 11.5 L Hct 34.0 L MCV 89.5 MCH 30.3 MCHC 33.8 RDW Std Deviation 45.4 H RDW Coeff of Kecia 14.7 H Plt Count 225 MPV 9.0 Neut % (Auto) Not Reportable Absolute Neuts (auto) 0.7 L Absolute Lymphs (auto) 0.98 Total Counted 100 Neutrophils % (Manual) 28 L Band Neutrophils % 2 Lymphocytes % (Manual) 40 Monocytes % (Manual) 29 H Eosinophils % (Manual) 1 Sodium 132 L Potassium 3.1 L Chloride 98 Carbon Dioxide 21.5 Anion Gap 13 BUN 12 Creatinine 0.83 Estim Creat Clear Calc 57.64 Est GFR (MDRD) Non-Af 74 BUN/Creatinine Ratio 15.0 Glucose 147 H Lactic Acid 2.4 H* Calcium 8.7 Magnesium 1.9 Total Bilirubin 0.42 AST 24 ALT 25 Alkaline Phosphatase 74 Total Protein 6.4 Albumin 3.1 L Globulin 3.4 Albumin/Globulin Ratio 0.9 Lipase 13 Urine Color Yellow Urine Clarity Sl. Cloudy Urine pH 6.5 Ur Specific [place] 1.010 Urine Protein 30 H Urine Glucose (UA) Normal Urine Ketones Negative Urine Occult Blood 10 H Urine Nitrite Negative Urine Bilirubin Negative Urine Urobilinogen Normal Ur Leukocyte Esterase 500 H Urine RBC 0-5 SEEN Urine WBC 5-10 SEEN Ur Squamous Epith Cells 0-5 SEEN Amorphous Sediment 1+ Urine Bacteria 2+ Hyaline Casts 0-5 SEEN Urine Mucus 1+ Radiography Chest X-Ray - ED: 1 View, Read by ED Physician, Read by Radiologist and No AcuteDisease Diagnostic Testing: Clinical Impression(s) from Imaging Studies Brain CT 05/13/25 12:46 IMPRESSION: Focal calcification in the left parietal lobe measuring up to 1.8 cm, concerningfor metastatic spread in this patient with history of colon cancer. Differential also includes other neoplasms (meningioma)or sequela of prior insult (vascular, infectious/inflammatory). Recommend contrast-enhanced MRI for further evaluation, if not previously performed. Reading Location: [id number] Chest X-Ray 05/13/25 13:05 IMPRESSION: No acute cardiopulmonary abnormality. Reading Location: [id number] Rhythm Strip Rhythm Strip: A-fib Rate: 97 Ectopy: None EKG Initial EKG: Attestation: I personally reviewed and interpreted this EKG as follows: Interpretation: Atrial Flutter Comments: Atrial flutter rate of 97 bpm with variable AV block Normal axis Normal ST segments Normal QT/QTc Compared to prior EKG patient now appears to have atrial flutter Follow-up EKG: Attestation: I personally reviewed and interpreted this EKG as follows: Interpretation: Atrial Flutter Comments: Atrial flutter with variable AV block at a rate of 82 bpm Normal axis Normal intervals Normal ST segments Low voltage QRS Management Discussion w/another healthcare provider: [employer] (oncology ) Discharge Plan Triage Chief Complaint: Syncope ED Provider: Cadence Castillo Dx/Rx/DC Orders Clinical Impression: Syncope and collapse, Colon cancer, Closed head injury, Acute hypokalemia, Neutropenia, Acidosis, lactic, New onset atrial flutter, Leukopenia, Abnormal brain CT, Acute UTI, Personal history of chemotherapy Prescriptions: No Action lisinopril-hydrochlorothiazide 20-25 mg Tablet 1 tab PO DAILY metoprolol succinate 50 mg tablet extended release 24 hr 50 mg PO DAILY Primary Care Provider: Shu Chow Referrals: Shu Chow PA [Primary Care Provider] - Print Language: [place]an What to do if you have Problems For any increased pain, shortness of breath, bleeding, nausea or vomiting, chestpain, or any unexpected problems, contact your Primary Care Provider. Call [facility] ([phone]) or report to the closest Emergency Room. Call 911 if necessary. 05/13/25 1700 <Electronically signed by Cadence Castillo DO> Cosigner Signature (if applicable): CC: JUVENTINO Pérez ~ Signed [facility] Work Phone: 1(630) 616-812107-12-2025 Radiology Diagnostic study note [facility] Imaging Services [address] [place] [id number] Brain/Head without Contrast MR#: [id number] Acct: [id number] Name: JESSIKA CARRILLO Rep #: [id number] : 1950 F 74 From: Alix Tinsley MD PCP: JUVENTINO Pérez Status: REG ER Study:Brain/Head without Contrast Date of Exa m: 05/13/25 Exam# [id number] Ordering Dr: Dane Castillo DO PROCEDURE: BRAIN/HEAD WITHOUT CONTRAST 05/13/2025 REASON FOR EXAM: HEAD TRAUMA TECHNIQUE: BRAIN/HEAD WITHOUT CONTRAST Coronal and Sagittal reconstruction series were provided. One or more dose reduction techniques were used (e.g., Automated exposure control, adjustment of the mA and/or kV according to patient size, use of iterative reconstruction technique. RADIATION DOSE SUMMARY: CTDlvol: 45 mGy DLP: 779 mGycm COMPARISON: None FINDINGS: Brain: There is calcification in the left parietal lobe measuring approximately 1.8 x 1.5 cm trans axially (series 2, image 26). No midline shift or mass effect. Bilateral basal ganglia calcifications. CSF Spaces: Unremarkable for age Sinuses/Mastoids: Clear at visualized levels Bones: No displaced fracture. Atherosclerotic calcification of the intracranial vasculature. CT/Brain/Head without Contrast IMPRESSION: Focal calcification in the left parietal lobe measuring up to 1.8 cm, concerningfor metastatic spread in this patient with history of colon cancer. Differential also includes other neoplasms (meningioma)or sequela of priorinsult (vascular, infectious/inflammatory). Recommend contrast-enhanced MRI for further evaluation, if not previouslyperformed. Reading Location: [id number] CC: Dr. Cadence Castillo DO; JUVENTINO Pérez ~ Loop Puller: Signed [facility]07-12-2025 Radiology Diagnostic study note [facility] Imaging Services [address] [place], [place] [id number] Chest 1 View (Portable) MR#: [id number] Acct: [id number] Name: JESSIKA CARRILLO Rep #: [id number] : 1950 F 74 From: Alix Tinsley MD PCP: JUVENTINO Pérez Status: REG ER Study:Chest 1 View (Portable) Date of Exam: 05/13/25 Exam# [id number] Ordering Dr: Dane Castillo DO PROCEDURE: CHEST 1 VIEW (PORTABLE) 05/13/2025 REASON FOR EXAM: WEAKNESS TECHNIQUE: Frontal view of the chest. COMPARISON: Chest radiograph dated 03/20/2025 FINDINGS: Hardware: Left chest port with tip in the superior vena cava, unchanged. Heart: Cardiac and mediastinal contours are stable. Lungs: No focal consolidation or pleural effusion. Bones: Degenerative changes are identified within the shoulders and thoracic spine. RAD/Chest 1 View (Portable) IMPRESSION: No acute cardiopulmonary abnormality. Reading Location: [facility] CC: Dr. Cadence Castillo DO; JUVENTINO Pérez ~ Loop Puller: Signed [facility]07-01-2025 Progress [facility] [address] [place] [address] OFFICE VISIT Date of Service: 05/02/25 0800 MR#: [id number] Acct: [id number] Name: JESSIKA CARRILLO Rep #: [id number] : 1950 From: Alyssa Zavala ch [employer]SULTANT [employer] CONSULTANT-C Age/Sex: 74/F Location: [facility] Status: Signed HPI Subjective Date of Service 05/02/25 Chief Complaint Colon cancer on treatment History of Present Illness 74-year-old female with no family of colon cancer had screening colonoscopy August 17, 2024 by at [facility] with 2 sessile polypoid lesions were found, [...] left kidney. Patient was then referred to [facility] for further management. December 31, 2024 MRI [...] January 23, 2025 robotic right hemicolectomy at [facility] by Dr. Antonio. Pathology: Right colon terminal [...] January 23, 2025 robotic right hemicolectomy at [facility]. March 21, 2025 adjuvant modified FOLFOX 6 Interval History The patient is presenting to clinic accompanied by adult daughter, Alyson for an evaluation anticipating she will begin cycle 4 adjuvant mFOLFOX. Reports she had 4-6 episodes of diarrhea on days 4-6 of each cycle. Admits she usually has "some episodes" before she decides to use loperamide. However, loperamide is effective. . Appetite fair, PO fluid intake estimated as 2 L of fluid each day, water. No numbness/tingling outside of cold exposure. Denies fever/chills, sweats, headaches, dizziness, mouth sores, rash, abd pain, N/V, swelling of her extremities. PFS Medical History Anemia Diarrhea due to drug [...] lisinopril 20 1 tab PO DAILY 03/18/21 07/0 11/26 History mg-hydrochlorothiazide 25 mg tablet metoprolol tartrate [...] post robotic assistedright hemicolectomy December 2024 at [facility]. There are 2 subcentimeter too small to [...] you fallen in the past year?: No 05/02/25 0923 h [employer] CONSULTANT [employer]CI[employer] CONSULTANT-C> Date _ Alyssa AllenKeila [employer] CONSULTANT [employer] CONSULTANT-C Cosigner Signature: Date (if applicable) CC: ~ [facility]07-01-2025 Progress note Author Alyssa Keila [facility] Note Date/Time May 02, 2025 9:23a m [facility] [address] [address] OFFICE VISIT Date of Service: 05/02/25 0800 MR#: [id number] Acct: [id number] Name: JESSIKA CARRILLO Perry Rep #: [id number] : 1950 From: Alyssa Zavala [employer] CONSULTANT [employer] CONSULTANT-C Age/Sex: 74/F Location: [facility] Status: Signed HPI Subjective Date of Service 05/02/25 Chief Complaint Colon cancer on treatment History of Present Illness 74-year-old female with no family of colon cancer had screening colonoscopy August 17, [address] Boles at [facility] with 2 sessile polypoid lesions were found, [...] left kidney. Patient was then referred to [facility] for further management. December 31, 2024 MRI [...] January 23, 2025 robotic right hemicolectomy at [facility] by Dr. Antonio. Pathology: Right colon terminal [...] January 23, 2025 robotic right hemicolectomy at [facility]. March 21, 2025 adjuvant modified FOLFOX 6 Interval History The patient is presenting to clinic accompanied by adult daughter, Alyson for an evaluation anticipating she will begin cycle 4 adjuvant mFOLFOX. Reports she had 4-6 episodes of diarrhea on days 4-6 of each cycle. Admits she usually has "some episodes" before she decides to use loperamide. However, loperamide is effective. . Appetite fair, PO fluid intake estimated as 2 L of fluid each day, water. No numbness/tingling outside of cold exposure. Denies fever/chills, sweats, headaches, dizziness, mouth sores, rash, abd pain, N/V, swelling of her extremities. [facility] Medical History Anemia Diarrhea due to drug [...] ?Type lisinopril 20 1 tab PO DAILY 03/18/21/11/26 History mg-hydrochlorothiazide 25 mg tablet metoprolol tartrate [...] robotic assisted right hemicolectomy December 2024 at [facility]. There are 2 subcentimeter too small to [...] you fallen in the past year?: No 05/02/25 0923 <Electronically signed by Alyssa TORRESC> Date _ Alyssa HAWKINS Cosigner Signature: Date (if applicable) CC: ~ [facility] [employer] [facility] Work Phone: 1(664) 998-886406-17-2025 Evaluation note* Diagnosis Onset Date Resolution Status Admit Date Anemia chronic April 18 8:49am Colon cancer chronic April 18 8:49am Lung nodules chronic April 18 8:49am Regional lymph node metastasis present chronic April 18 8:49am Diarrhea due to drug resolved April 18, 2025 8:49am Encounter for chemotherapy management acute May 02, 2025 7 :29am Anemia chronic May 02, 2025 7:29am Colon cancer chronic May 02 7:29am Lung nodules chronic May 02 7:29am Regional lymph node metastasis present chronic May 02 7:29am Diarrhea due to drug resolved May 02, 2025 7:29am Syncope and collapse acute May 13, 2025 5:23pm Colon cancer chronic Rosemarie 12th, 2 025 5:23pm Abnormal brain CT inactive May 132024 5:23pm Acidosis, lactic inactive May 5:23pm Acute hypokalemia inactive May 132024 5:23pm Acute UTI inactive May 13 5:23pm Closed head injury inactive May 022024 5:23pm Leukopenia inactive May 13 5:23pm Neutropenia inactive May 13 5:23pm New onset atrial flutter inactive May 13, 2025 5:23pm Personal history of chemotherapy inactive May 13, 2025 5:23pm Encounter for chemotherapy management acute May 30, 2025 7:28am Anemia chronic May 30 7:28am Colon cancer chronic May 30 7:28am Lung nodules chronic May 30 7:28am Regional lymph node metastasis present chronic May 30 7:28am Diarrhea due to drug resolved May 30, 2025 7:28am Anemia chronic June 13 8:19am Colon cancer chronic June 13, 2025 8:19am Lung nodules chronic June 13, 2025 8:19am Regional lymph node metastasis present chronic June 13, 2025 8:19am Diarrhea due to drug resolved 2024 8:19am Encounter for chemotherapy management acute June 27 8:53am Anemia chronic June 27 8:53am Colon cancer chronic June 27, 2025 8:53am Lung nodules chronic June 27, 2025 8:53am Regional lymph node metastasis present chronic June 27, 2025 8:53am Diarrhea due to drug resolved 2024 8:53am Anemia chronic July 11, 2025 8:50am Colon cancer chronic July 8:50am Lung nodules chronic July 8:50am Regional lymph node metastasis present chronic July 8:50am Diarrhea due to drug resolved Jul 8:50am Anemia chronic July 8:48am Colon cancer chronic July 252024 8:48am Lung nodules chronic July 252024 8:48am Regional lymph node metastasis present chronic July d2024 8:48am Diarrhea due to drug resolved Jul 8:48am Atrial flutter acute July 26, 2025 1:29pm Hypertension chronic July 262024 1:29pm Anemia chronic August 08, 2 025 9:12am Colon cancer chronic August 08, 2025 9:12am Lung nodules chronic August 08, 2025 9:12am Regional lymph node metastasis present chronic August 08, 2025 9:12am [facility] Work Phone: 1(891) 430-486706-17-2025 Progress [facility] [address] [place] [address] OFFICE VISIT Date of Service: 04/18/25 0929 MR#: [id number] Acct: [id number] Name: JESSIKA CARRILLO Rep #: [id number] : 1950 From: New peterson MD Age/Sex: 74/F Location: [facility] Status: Signed HPI Subjective Date of Service 04/18/25 Chief Complaint Colon cancer on treatment History of Present Illness 74-year-old female with no family of colon cancer had screening colonoscopy August 17, 2024 by at [facility] with 2 sessile polypoid lesions were found, [...] left kidney. Patient was then referred to [facility] for further management. December 31, 2024 MRI [...] January 23, 2025 robotic right hemicolectomy at [facility] by Dr. Antonio. Pathology: Right colon terminal [...] January 23, 2025 robotic right hemicolectomy at [facility]. March 21, 2025 adjuvant modified FOLFOX 6 [...] Delivery Method room air room air Intake Yoke Setter Required: No Accompanied by: Daughter Is patient [...] no focal motor deficits Coordination / Balance: [id number] test normal Speech: speech normal Gait (Neuro): [...] post robotic assistedright hemicolectomy December 2024 at [facility]. There are 2 subcentimeter too small to [...] impression and plan discussed. [place] MD Gas Engine Performance Engineer, [facility] Divisions of Medical Oncology & Hematology Department of Internal Medicine [place] [address] This note was generated using a voice [...] Cosigner Signature: Date (if applicable) CC: ~ [facility]06-17-2025 Progress note Author [place] [facility] Note Date/Time April 18, 2025 9:54 am [facility] [address] [place] [address] OFFICE VISIT Date of Service: 04/18/25 0929 MR#: [id number] Acct: [id number] Name: JESSIKA CARRILLO Rep #: [id number] : 1950 From: New peterson MD Age/Sex: 74/F Location: [facility] Status: Signed HPI Subjective Date of Service 04/18/25 Chief Complaint Colon cancer on treatment History of Present Illness 74-year-old female with no family of colon cancer had screening colonoscopy August 17, [address] Boles at [facility] with 2 sessile polypoid lesions were found, [...] left kidney. Patient was then referred to [facility] for further management. December 31, 2024 MRI [...] January 23, 2025 robotic right hemicolectomy at [facility] by Dr. Antonio. Pathology: Right colon terminal [...] January 23, 2025 robotic right hemicolectomy at [facility]. March 21, 2025 adjuvant modified FOLFOX 6 [...] Delivery Method room air room air Intake Yoke Setter Required: No Accompanied by: Daughter Is patient [...] no focal motor deficits Coordination / Balance: [id number]-[id number] test normal Speech: speech normal Gait (Neuro): [...] robotic assisted right hemicolectomy December 2024 at [facility]. There are 2 subcentimeter too small to [...] impression and plan discussed. [place] MD Gas Engine Performance Engineer, [facility] Divisions of Medical Oncology & Hematology Department of Internal Medicine [place] [address] This note was generated using a voice [...] Cosigner Signature: Date (if applicable) CC: ~ [facility] [employer] [facility] Work Phone: 1(564) 489-776806-03-2025 Evaluation note* Diagnosis Onset Date Resolution Status Admit Date Encounter for chemotherapy management acute April 04, 2025 7 :42am Colon cancer chronic April 04 7:42am Lung nodules chronic April 04 7:42am Regional lymph node metastasis present chronic April 04 7:42am Diarrhea due to drug resolved April 04, 2025 7:42am Anemia acute April 18 8:49am Colon cancer chronic April 18, 025 8:49am Lung nodules chronic April 18 025 8:49am Regional lymph node metastasis present chronic April 18 8:49am Diarrhea due to drug resolved April 18, 2025 8:49am Anemia acute May 02, 2025 7:29am Encounter for chemotherapy management acute May 02, 2025 7 :29am Colon cancer chronic May 02 7:29am Lung nodules chronic May 02 7:29am Regional lymph node metastasis present chronic May 02 7:29am Diarrhea due to drug resolved May 02, 2025 7:29am Syncope and collapse acute May 13, 2025 5:23pm Colon cancer chronic May 13, 5:23pm Abnormal brain CT inactive May 132024 5:23pm Acidosis, lactic inactive May 5:23pm Acute hypokalemia inactive May 132024 5:23pm Acute UTI inactive May 13 5:23pm Closed head injury inactive May 022024 5:23pm Leukopenia inactive May 13 5:23pm Neutropenia inactive May 13 5:23pm New onset atrial flutter inactive May 13, 2025 5:23pm Personal history of chemotherapy inactive May 13, 2025 5:23pm Anemia acute May 30 7:28am Encounter for chemotherapy management acute May 30, 2025 7:28am Colon cancer chronic May 30 7:28am Lung nodules chronic May 30 7:28am Regional lymph node metastasis present chronic May 30 7:28am Diarrhea due to drug resolved May 30, 2025 7:28am Anemia acute June 13 8:19am Colon cancer chronic June 13, 2025 8:19am Lung nodules chronic June 13, 2025 8:19am Regional lymph node metastasis present chronic June 13, 2025 8:19am Diarrhea due to drug resolved 2024 8:19am Anemia acute June 27 8:53am Encounter for chemotherapy management acute June 27 8:53am Colon cancer chronic June 27, 2025 8:53am Lung nodules chronic June 27, 2025 8:53am Regional lymph node metastasis present chronic June 27, 2025 8:53am Diarrhea due to drug resolved 2024 8:53am Anemia acute July 11, 2025 8:50am Colon cancer chronic July 8:50am Lung nodules chronic July 8:50am Regional lymph node metastasis present chronic July 8:50am Diarrhea due to drug resolved Jul 8:50am Anemia acute July 8:48am Colon cancer chronic July 252024 8:48am Lung nodules chronic July 252024 8:48am Regional lymph node metastasis present chronic July d2024 8:48am Diarrhea due to drug resolved Jul 8:48am Atrial flutter acute July 26, 2025 1:29pm Hypertension chronic July 262024 1:29pm [facility] Work Phone: 1(133) 634-380305-20-2025 Progress [facility] [address] [place], [place] [address] [address] OFFICE VISIT Date of Service: 03/21/25 0800 MR#: [id number] Acct: [id number] Name: JESSIKA CARRILLO Rep #: [id number] : 1950 From: Alyssa Zavala ch WORKDAY FINANCIALS CONSULTANT WORKDAY FINANCIALS CONSULTANT-C Age/Sex: 74/F Location: [facility] Status: Signed HPI Subjective Date of Service 03/21/25 Chief Complaint Colon cancer History of Present Illness 74-year-old female with no family of colon cancer had screening colonoscopy August 17, 2024 by at [facility] with 2 sessile polypoid lesions were found, [...] left kidney. Patient was then referred to [facility] for further management. December 31, 2024 MRI [...] January 23, 2025 robotic right hemicolectomy at [facility] by Dr. Antonio. Pathology: Right colon terminal [...] January 23, 2025 robotic right hemicolectomy at [facility]. March 21, 2025- mFOLFOX Interval History The patient is presenting to clinic accompanied by adult daughter, Alyson for an evaluation anticipating she will begin adjuvant mFOLFOX. No diarrhea. LBM 03/21/25. Reports active lifestyle and good support system by way of daughters. [facility] Medical History (Updated 03/21/25 @ 08:45 by Alyssa Lynch WORKDAY FINANCIALS CONSULTANT, WORKDAY FINANCIALS CONSULTANT-C) Encounter for chemotherapy management Loss of hearing [...] ?Type lisinopril 20 1 tab PO DAILY 03/18/21/2 History mg-hydrochlorothiazide 25 mg tablet metoprolol tartrate [...] post robotic assistedright hemicolectomy December 2024 at [facility]. There are 2 subcentimeter too small to [...] the past year?: No 03/21/25 0848 h WORKDAY FINANCIALS CONSULTANT WORKDAY FINANCIALS CONSULTANT-C> Date _ Alyssa Lynch WORKDAY FINANCIALS CONSULTANT WORKDAY FINANCIALS CONSULTANT-C Cosigner Signature: Date (if applicable) CC: ~ [facility]05-20-2025 Progress note Author Alyssa Lynch [facility] Note Date/Time March 21, 2025 8:48a m [facility] [address] [place], [place] [address] [address] OFFICE VISIT Date of Service: 03/21/25 0800 MR#: [id number] Acct: [id number] Name: JESSIKA CARRILLO Rep #: [id number] : 1950 From: Alyssa Zavala ch WORKDAY FINANCIALS CONSULTANT WORKDAY FINANCIALS CONSULTANT-C Age/Sex: 74/F Location: [facility] Status: Signed HPI Subjective Date of Service 03/21/25 Chief Complaint Colon cancer History of Present Illness 74-year-old female with no family of colon cancer had screening colonoscopy August 17, [address] Boles at [facility] with 2 sessile polypoid lesions were found, [...] left kidney. Patient was then referred to [facility] for further management. December 31, 2024 MRI [...] January 23, 2025 robotic right hemicolectomy at [facility] by Dr. Antonio. Pathology: Right colon terminal [...] January 23, 2025 robotic right hemicolectomy at [facility]. March 21, 2025- mFOLFOX Interval History The patient is presenting to clinic accompanied by adult daughterAlyson for an evaluation anticipating she will begin adjuvant mFOLFOX. No diarrhea. LBM 03/21/25. Reports active lifestyle and good support system by way of daughters. [facility] Medical History (Updated 03/21/25 @ 08:45 by Alyssa Lynch NP, WORKDAY FINANCIALS CONSULTANT-C) Encounter for chemotherapy management Loss of hearing [...] robotic assisted right hemicolectomy December 2024 at [facility]. There are 2 subcentimeter too small to [...] No 03/21/25 0848 <Electronically signed by Alyssa HAWKINS> Date _ Alyssa HAWKINS Cosigner Signature: Date (if applicable) CC: ~ [facility] Work Phone: 1(332) 945-524305-19-2025 Radiology Diagnostic study note [facility] Imaging Services [address] [place], [place] [address] CXR for Line Placement MR#: [id number] Acct: [id number] Name: JESSIKA CARRILLO Rep #: [id number] : 1950 F 74 From: Tomer Greco MD PCP: JUVENTINO Pérez Status: [facility] Study:CXR for Line Placement Date of Exam: 03/20/25 Exam# [id number] Ordering Dr: St lou Gaines MD PROCEDURE: [...] No infiltrates. 3. No pneumothorax. Reading Location: [facility] CC: Dr. Michael Gaines MD; JUVENTINO Pérez ~ Loop Puller: Signed [facility]05-19-2025 Consult note [facility] Medical Records Department [address] [place] [address] Anesthesia Postop Eval II 03/20/25 1424 MR#: [id number] Acct: [id number] Name: JESSIKA CARRILLO Rep #:[id number] : 1950 74 From: Josue Ceballos MD PCP: JUVENTINO Pérez Status:[facility] Y Race: C Location: [place] [address] Anesthesia Postop Eval I Sum Postop Eval Completion status Anesthesia document: Postop Eval 1 completed: Yes Anesthesia Postop Eval I Summary Anesthesia Postop Eval I Summary: Anesthesia Postop Eval I: Assessment Summary Airway patent Yes 03/20/25 13:18 PROTECTIVE SERVICES SOCIAL WORKER.HBARR Spontaneous unlabored Yes 03/20/25 13:18 PROTECTIVE SERVICES SOCIAL WORKER.HBARR respirations Mental status Awake 03/20/25 13:18 PROTECTIVE SERVICES SOCIAL WORKER.HBARR nausea No 03/20/25 13:18 PROTECTIVE SERVICES SOCIAL WORKER.HBARR Vomiting No 03/20/25 13:18 PROTECTIVE SERVICES SOCIAL WORKER.HBARR Anesthesia Postop Eval I: Fluid Summary Crystalloid volume administer 500 03/20/25 13:18 PROTECTIVE SERVICES SOCIAL WORKER.HBARR (ml) Colloids volume administered ( ml) Blood Product volume administered (ml) Total IV fluid infused 500 03/20/25 13:18 PROTECTIVE SERVICES SOCIAL WORKER.HBARR Anesthesia Postop Eval I: Summary Notes Anesthesia Complication No 03/20/25 13:18 PROTECTIVE SERVICES SOCIAL WORKER.HBARR Anesthesia Complication Comment: Post-operative progress note Anesthesia: Postop Eval II Evaluation Mental status: Awake Pain Level: 0 nausea: No Vomiting: No 03/20/25 1424 > Date _ Josue Smyth Signature: Date CC: ~ Signed [facility]05-19-2025 History and physical note Author Michael Gaines [facility] Note Date/Time March 20, 2025 12:07 pm [facility] Medical Records Department [address] [place] [address] History & Physical Exam 03/20/25 1205 MR#: [id number] Acct: [id number] Name: JESSIKA CARRILLO Rep #:[id number] : 1950 74 From: Michael Gaines MD PCP: JUVENTINO Pérez Status:[facility] Location: [place] [address] HPI - General General Date of Admission: 03/20/25 Date of Service: 03/20/25 Chief Complaint: Mediport placement HPI Narrative JESSIKA CARRILLO, is a 74 F who presents today for Mediport placement. She was recently discovered to have colon cancer. Her treating oncologist have recommended chemotherapy. She is supposed to begin chemotherapy I believe on March 21. [facility] Medical History Loss of hearing Wears glasses [...] Dr. Michael Gaines MD; JUVENTINO Pérez~ Signed [facility] Work Phone: [phone]) 107-857205-19-2025 Procedure note [facility] Medical Records Department [address] [place] [address] Operative Report 03/20/25 1321 MR#: [id number] Acct: [id number] Name: JESSIKA CARRILLO Rep #:[id number] : 1950 74 From: Michael Gaines MD PCP: JUVENTINO Pérez Status:[facility] Location: [facility]22-1 Problems Associated Problem List Diagnoses (1) Colon cancer: Procedures Cardiovascular CF Procedures [id number]-[id number]: [id number] Insert tunneled cv cath Operative Report (Standard) Operative Information Date of Procedure: 03/20/25 Pre-Operative Diagnosis: Colon cancer Post-Operative Diagnosis: Colon cancer Surgery/Procedure Performed: Left subclavian Mediport placement with C arm policy checker: No Type of Anesthesia: Local and MAC [...] Dr. Michael Gaines MD; JUVENTINO Pérez~ Signed [facility]05-19-2025 Discharge summary [facility] Medical Records Department [address] [place] [address] Instructions for Home/Discharge Instructions 03/20/25 1316 MR#: [id number] Acct: [id number] Name: JESSIKA CARRILLO Rep #:[id number] : 1950 74 From: Michael Gaines MD PCP: JUVENTINO Pérez Status:[facility] Discharge Instructions Diet Discharge [...] Care Provider: Shu Chow Instructions Print Language: Sierra Leonean Discharge Orders/Prescriptions Prescriptions: New oxycodone-acetaminophen [Percocet] 5-325 [...] Gaines MD CC: JUVENTINO Pérez ~ Signed [facility]05-19-2025 Consult note [facility] Medical Records Department [address] [place] [address] Anesthesia Postop Eval I 03/20/25 1317 MR#: [id number] Acct: [id number] Name: JESSIKA CARRILLO Rep #:[id number] : 1950 74 From: Ora Perez CRNA PCP: JUVENTINO Pérez Status:[facility] Y Race: C Location: [place] [address] Anesthesia: Postop Eval I Current Vital Signs [...] CRNA Cosigner Signature: Date CC: ~ Signed [facility]05-19-2025 Consult note Author Josue Ceballos [facility] Note Date/Time March 20, 2025 11:16 am [facility] Medical Records Department [address] [place] [address] Pre-Anesthesia Evaluation 03/20/25 1115 MR#: [id number] Acct: [id number] Name: JESSIKA CARRILLO Rep #:[id number] : 1950 74 From: Josue Ceballos MD PCP: JUVENTINO Pérez Status:[facility] Y Race: C Location: [place] [address] ASA Classification* ASA Classification ASA Classification: 2 [...] PORT LEFT Anesthesia History Anesthesia History - email marketing specialist: Anesthesia History - email marketing specialist Hx Hospitalization No 03/17/25 11:44 Any Problems [...] take am of surgery PONV PONV - email marketing specialist: PONV - email marketing specialist Female Yes 03/17/25 11:44 HX of Motion [...] 03/17/25 08:59 Respiratory Assessment Respiratory Assessment - email marketing specialist: Respiratory Tract Infection Hx - email marketing specialist Hx Respiratory Tract Infection No 03/17/25 11:44 STOP Sleep Apnea STOP Sleep Apnea - email marketing specialist: STOP Sleep Apnea - email marketing specialist Hx Hypertension Yes: controlled with med 03/17/25 [...] Tobacco Use History Tobacco Use History - email marketing specialist: Tobacco Use History - email marketing specialist Tobacco Use Non-smoker 03/18/21 09:51 Smoking Status Former smoker 03/17/25 11:44 Hx Tobacco Use No 03/17/25 11:44 Years Smoking Packs Smoked per Day Smoking Cessation Date was No - quit smoking greater 03/17/25 11:44 within the last 15 years than 15 years ago Hx Smoking Cessation Date 11/02/89 03/17/25 11:44 Hx Smoking Cessation No 03/17/25 11:44 Counseling Hematologic Medial History Hematologic Hx - email marketing specialist: Hematologic Medical Hx - manager transfer Hx of Blood Transfusion No 03/17/25 11:44 [...] confused, unrespo /Reproduction History /Reproductive History - email marketing specialist: /Reproductive Hx- email marketing specialist Hx Now Gestational Age (in weeks): EDC: [...] MD Cosigner Signature: Date CC: ~ Signed [facility] Work Phone: 1(192) 937-659105-19-2025 History and physical note [facility] Medical Records Department [address] [place] [address] History & Physical Exam 03/20/25 1205 MR#: [id number] Acct: [id number] Name: JESSIKA CARRILLO Rep #:[id number] : 1950 74 From: Michael Gaines MD PCP: JUVENTINO Pérez Status:[facility] Location: [place] [address] HPI - General General Date of Admission: 03/20/25 Date of Service: 03/20/25 Chief Complaint: Mediport placement HPI Narrative JESSIKA CARRILLO, is a 74 F who presents today for Mediport placement. She was recently discovered to have colon cancer. Her treating oncologist have recommended chemotherapy. She is supposed to begin chemotherapy I believe on March 21. [facility] Medical History Loss of hearing Wears glasses [...] Dr. Michael Gaines MD; JUVENTINO Pérez~ Signed [facility]05-19-2025 [facility] Consult note [facility] Medical Records Department [address] [place] [address] Pre-Anesthesia Evaluation 03/20/25 1115 MR#: [id number] Acct: [id number] Name: JESSIKA CARRILLO Rep #:[id number] : 1950 74 From: Josue Ceballos MD PCP: JUVENTINO Pérez Status:[facility] Y Race: C Location: [place] [address] ASA Classification* ASA Classification ASA Classification: 2 [...] PORT LEFT Anesthesia History Anesthesia History - email marketing specialist: Anesthesia History - email marketing specialist Hx Hospitalization No 03/17/25 11:44 Any Problems [...] take am of surgery PONV PONV - email marketing specialist: PONV - email marketing specialist Female Yes 03/17/25 11:44 HX of Motion [...] 03/17/25 08:59 Respiratory Assessment Respiratory Assessment - email marketing specialist: Respiratory Tract Infection Hx - email marketing specialist Hx Respiratory Tract Infection No 03/17/25 11:44 STOP Sleep Apnea STOP Sleep Apnea - email marketing specialist: STOP Sleep Apnea - email marketing specialist Hx Hypertension Yes: controlled with med 03/17/25 [...] Tobacco Use History Tobacco Use History - email marketing specialist: Tobacco Use History - email marketing specialist Tobacco Use Non-smoker 03/18/21 09:51 Smoking Status Former smoker 03/17/25 11:44 Hx Tobacco Use No 03/17/25 11:44 Years Smoking Packs Smoked per Day Smoking Cessation Date was No - quit smoking greater 03/17/25 11:44 within the last 15 years than 15 years ago Hx Smoking Cessation Date 11/02/89 03/17/25 11:44 Hx Smoking Cessation No 03/17/25 11:44 Counseling Hematologic Medial History Hematologic Hx - email marketing specialist: Hematologic Medical Hx - manager transfer Hx of Blood Transfusion No 03/17/25 11:44 [...] confused, unrespo /Reproduction History /Reproductive History - email marketing specialist: /Reproductive Hx- email marketing specialist Hx Now Gestational Age (in weeks): EDC: [...] documented. 03/20/25 1116 > Date _ Josue Ceballos MD Cosigner Signature: Date CC: ~ Signed [facility]05-14-2025 Evaluation note* Diagnosis Onset Date Resolution Status Admit Date Colon cancer chronic March 15 7:58am Lung nodules chronic March 15 7:58am Regional lymph node metastasis present chronic March 15 7:58am Encounter for education resolved M ay 2024 7:58am Colon cancer chronic March 15 9:51am Colon cancer chronic March 20 11:03am Encounter for chemotherapy management acute March 21, 2025 7 :21am Colon cancer chronic March 21 7:21am Lung nodules chronic March 21 7:21am Regional lymph node metastasis present chronic March 21 7:21am Encounter for chemotherapy management acute April 04, 2025 7 :42am Colon cancer chronic Xuan 3rd, 20 25 7:42am Lung nodules chronic April 04 7:42am Regional lymph node metastasis present chronic April 04 7:42am Diarrhea due to drug resolved April 04, 2025 7:42am Anemia acute April 18 8:49am Colon cancer chronic April 18 8:49am Lung nodules chronic April 18 8:49am Regional lymph node metastasis present chronic April 18 8:49am Diarrhea due to drug resolved April 18, 2025 8:49am Anemia acute May 02, 2025 7:29am Encounter for chemotherapy management acute May 02, 2025 7 :29am Colon cancer chronic May 02 7:29am Lung nodules chronic May 02 7:29am Regional lymph node metastasis present chronic May 02 7:29am Diarrhea due to drug resolved May 02, 2025 7:29am Syncope and collapse acute May 13, 2025 5:23pm Colon cancer chronic May 13 5:23pm Abnormal brain CT inactive May 132024 5:23pm Acidosis, lactic inactive May 5:23pm Acute hypokalemia inactive May 132024 5:23pm Acute UTI inactive May 13 5:23pm Closed head injury inactive May 022024 5:23pm Leukopenia inactive May 13 5:23pm Neutropenia inactive May 13 5:23pm New onset atrial flutter inactive May 13, 2025 5:23pm Personal history of chemotherapy inactive May 13, 2025 5:23pm Anemia acute May 30 7:28am Encounter for chemotherapy management acute May 30, 2025 7:28am Colon cancer chronic May 30 7:28am Lung nodules chronic May 30 7:28am Regional lymph node metastasis present chronic May 30 7:28am Diarrhea due to drug resolved May 30, 2025 7:28am Anemia acute June 13 8:19am Colon cancer chronic June 13, 2025 8:19am Lung nodules chronic June 13, 2025 8:19am Regional lymph node metastasis present chronic June 13, 2025 8:19am Diarrhea due to drug resolved 2024 8:19am Anemia acute June 27 025 8:53am Encounter for chemotherapy management acute June 27 8:53am Colon cancer chronic June 27, 2025 8:53am Lung nodules chronic June 27, 2025 8:53am Regional lymph node metastasis present chronic June 27, 2025 8:53am Diarrhea due to drug resolved Augu st 2024 8:53am Anemia acute July 11, 2025 8:50am Colon cancer chronic July 8:50am Lung nodules chronic July 8:50am Regional lymph node metastasis present chronic July 8:50am Diarrhea due to drug resolved Sept ember 2024 8:50am [facility] Work Phone: 1(103) 393-548405-14-2025 [facility] [address] [place] [id number] OFFICE VISIT Date of Service: 03/15/25 0805 MR#: [id number] Acct: [id number] Name: JESSIKA CARRILLO Rep #: [id number] : 1950 From: Alyssa Zavala ch WORKDAY FINANCIALS CONSULTANT WORKDAY FINANCIALS CONSULTANT-C Age/Sex: 74/F Location: [facility] Status: Signed HPI Subjective Date of Service 03/15/25 Chief Complaint Colon cancer History of Present Illness 74-year-old female with no family of colon cancer had screening colonoscopy August 17, 2024 by at [facility] with 2 sessile polypoid lesions were found, [...] left kidney. Patient was then referred to [facility] for further management. December 31, 2024 MRI [...] January 23, 2025 robotic right hemicolectomy at [facility] by Dr. Antonio. Pathology: Right colon terminal [...] January 23, 2025 robotic right hemicolectomy at [facility]. Interval History The patient is presenting to clinic accompanied by adult daughter, Alyson for an education visit. No diarrhea, has not identified any aggravating foods. Reports active lifestyle and good support system by way of daughters. [facility] Medical History (Updated 03/15/25 @ 08:16 by Alyssa Lynch WORKDAY FINANCIALS CONSULTANT, WORKDAY FINANCIALS CONSULTANT-C) Encounter for education Lung nodules Regional lymph [...] post robotic assistedright hemicolectomy December 2024 at [facility]. There are 2 subcentimeter too small to [...] the past year?: No 03/15/25 0930 h WORKDAY FINANCIALS CONSULTANT WORKDAY FINANCIALS CONSULTANT-C> Date _ Alyssa Lynch NP WORKDAY FINANCIALS CONSULTANT-C Cosigner Signature: Date (if applicable) CC: ~ [facility]05-14-2025 Progress note Author Alyssa Lynch [facility] Note Date/Time March 15, 2025 9:30a m [facility] [address] [address] OFFICE VISIT Date of Service: 03/15/25 0805 MR#: [id number] Acct: [id number] Name: JESSIKA CARRILLO Rep #: [id number] : 1950 From: Alyssa Zavala FUNMILAYO WORKDAY FINANCIALS CONSULTANT-C Age/Sex: 74/F Location: [facility] Status: Signed HPI Subjective Date of Service 03/15/25 Chief Complaint Colon cancer History of Present Illness 74-year-old female with no family of colon cancer had screening colonoscopy August 17, [address] Boles at [facility] with 2 sessile polypoid lesions were found, [...] left kidney. Patient was then referred to [facility] for further management. December 31, 2024 MRI [...] January 23, 2025 robotic right hemicolectomy at [facility] by Dr. Antonio. Pathology: Right colon terminal [...] January 23, 2025 robotic right hemicolectomy at [facility]. Interval History The patient is presenting to clinic accompanied by adult daughter, Alyson for an education visit. No diarrhea, has not identified any aggravating foods. Reports active lifestyle and good support system by way of daughters. [facility] Medical History (Updated 03/15/25 @ 08:16 by Alyssa Lynch NP, WORKDAY FINANCIALS CONSULTANT-C) Encounter for education Lung nodules Regional lymph [...] robotic assisted right hemicolectomy December 2024 at [facility]. There are 2 subcentimeter too small to [...] 03/15/25 0930 <Electronically signed by Alyssa li WORKDAY FINANCIALS CONSULTANT WORKDAY FINANCIALS CONSULTANT-C> Date _ Alyssa Lynch NP WORKDAY FINANCIALS CONSULTANT-C Cosigner Signature: Date (if applicable) CC: ~ [facility] Work Phone: 1(305) 553-479005-08-2025 Evaluation note* Diagnosis Onset Date Resolution Status Admit Date Colon cancer acute March 09 8:53am Lung nodules acute March 09 8:53am Regional lymph node metastas is present acute March 09, 2025 8: 53am Colon cancer acute March 15 7:58am Encounter for education acute ay 2024 7:58am Lung nodules acute March 15 7:58am Regional lymph node metastas is present acute March 15, 2025 7 :58am [facility] [employer] Work Phone: 1(396) 321-229505-08-2025 Evaluation note* Diagnosis Onset Date Resolution Status [...] 9:51am Colon cancer acute March 20 11:03am [facility] Work Phone: 1(345) 522-170605-08-2025 Evaluation note* Diagnosis Onset Date Resolution Status [...] present acute March 21, 2025 7 :21am [facility] Work Phone: 1(123) 969-235105-08-2025 Evaluation note* Diagnosis Onset Date Resolution Status [...] present acute April 04, 2025 7 :42am [facility] Work Phone: 1(470) 591-225905-08-2025 Evaluation note* Diagnosis Onset Date Resolution Status [...] April 18 8:49am Colon cancer acute April 18, 025 8:49am Diarrhea due to drug acute April 18, 2025 8:49am Lung nodules acute April 18, 025 8:49am Regional lymph node metastas is present acute April 18, 2025 8:49am [facility] Work Phone: 1(188) 587-328205-08-2025 Evaluation note* Diagnosis Onset Date Resolution Status [...] present acute May 02, 2025 7 :29am [facility] Work Phone: 1(820) 824-370105-08-2025 Evaluation note* Diagnosis Onset Date Resolution Status Admit Date Colon cancer acute March 09 8:53am Lung nodules acute March 09 8:53am Regional lymph node metastas is present acute March 09, 2025 8: 53am Colon cancer acute March 15 7:58am Encounter for education acute 2024 7:58am Lung nodules acute March 15 [...] April 18 8:49am Colon cancer acute April 18, 8:49am Diarrhea due to drug acute April [...] present acute May 02, 2025 7 :29am Abnormal brain CT acute May 132024 5:23pm Acidosis, lactic acute May 5:23pm Acute hypokalemia acute May 132024 5:23pm Acute UTI acute May 13 5:23pm Closed head injury acute May 022024 5:23pm Colon cancer acute May 13 5:23pm Leukopenia acute May 13 5:23pm Neutropenia acute May 13 5:23pm New onset atrial flutter acute May 13, 2025 5:23pm Personal history of chemotherapy acu te May 13, 2025 5:23pm Syncope and collapse acute May 13, 2025 5:23pm [facility] Work Phone: 1(925) 724-845905-08-2025 Evaluation note* Diagnosis Onset Date Resolution Status Admit Date Colon cancer chronic March 09 8:53am Lung nodules chronic March 09 8:53am Regional lymph node metastas is present chronic March 09, 2025 8: 53am Encounter for education acute M 2024 7:58am Colon cancer chronic March 15 7:58am Lung nodules chronic March 15 7:58am Regional lymph node metastas is present chronic March 15, 2025 7 :58am Colon cancer chronic March 15 9:51am Colon cancer chronic March 20 11:03am Encounter for chemotherapy management acute March 21, 2025 7 :21am Colon cancer chronic March 21 7:21am Lung nodules chronic March 21 7:21am Regional lymph node metastas is present chronic March 21, 2025 7 :21am Diarrhea due to drug acute April 04, 2025 7:42am Encounter for chemotherapy management acute April 04, 2025 7 :42am Colon cancer chronic April 04 7:42am Lung nodules chronic April 04 7:42am Regional lymph node metastas is present April 04, 2025 7 :42am Anemia acute April 18 8:49am Diarrhea due to drug acute April 18, 2025 8:49am Colon cancer chronic April 18 8:49am Lung nodules chronic April 18 8:49am Regional lymph node metastas is present chronic April 18, 2025 8:49am Anemia acute May 02, 2025 7:29am Diarrhea due to drug acute May 02, 2025 7:29am Encounter for chemotherapy management acute May 02, 2025 7 :29am Colon cancer chronic May 02 7:29am Lung nodules chronic May 02 7:29am Regional lymph node metastas is present chronic May 02, 2025 7 :29am Colon cancer chronic May 13, 025 5:23pm Abnormal brain CT inactive May 132024 5:23pm Acidosis, lactic inactive May 5:23pm Acute hypokalemia inactive May 132024 5:23pm Acute UTI inactive May 13 5:23pm Closed head injury inactive May 022024 5:23pm Leukopenia inactive May 13 5:23pm Neutropenia inactive May 13 5:23pm New onset atrial flutter inactive May 13, 2025 5:23pm Personal history of chemotherapy inactive May 13, 2025 5:23pm Syncope and collapse inactive May 13, 2025 5:23pm Anemia acute May 30 7:28am Diarrhea due to drug acute May 30, 2025 7:28am Encounter for chemotherapy management acute May 30, 2025 7:28am Colon cancer chronic May 30, 025 7:28am Lung nodules chronic May 30 7:28am Regional lymph node metastas is present chronic May 30, 2025 7:28am [facility] Work Phone: 1(460) 706-570205-08-2025 Evaluation note* Diagnosis Onset Date Resolution Status Admit Date Colon cancer chronic March 09 8:53am Lung nodules chronic March 09 8:53am Regional lymph node metastas is present chronic March 09, 2025 8: 53am Encounter for education acute 2024 7:58am Colon cancer chronic March 15 7:58am Lung nodules chronic March 15 7:58am Regional lymph node metastas is present chronic March 15, 2025 7 :58am Colon cancer chronic March 15 9:51am Colon cancer chronic March 20 11:03am Encounter for chemotherapy management acute March 21, 2025 7 :21am Colon cancer chronic March 21 7:21am Lung nodules chronic March 21 7:21am Regional lymph node metastas is present chronic March 21, 2025 7 :21am Diarrhea due to drug acute April 04, 2025 7:42am Encounter for chemotherapy management acute April 04, 2025 7 :42am Colon cancer chronic April 04 7:42am Lung nodules chronic April 04 7:42am Regional lymph node metastas is present chronic April 04, 2025 7 :42am Anemia acute April 18 8:49am Diarrhea due to drug acute April 18, 2025 8:49am Colon cancer chronic April 18 8:49am Lung nodules chronic April 18 8:49am Regional lymph node metastas is present chronic April 18, 2025 8:49am Anemia acute May 02, 2025 7:29am Diarrhea due to drug acute May 02, 2025 7:29am Encounter for chemotherapy management acute May 02, 2025 7 :29am Colon cancer chronic May 02 7:29am Lung nodules chronic May 02 7:29am Regional lymph node metastas is present chronic May 02, 2025 7 :29am Colon cancer chronic May 13 5:23pm Abnormal brain CT inactive May 132024 5:23pm Acidosis, lactic inactive May 5:23pm Acute hypokalemia inactive May 132024 5:23pm Acute UTI inactive May 13 5:23pm Closed head injury inactive May 022024 5:23pm Leukopenia inactive May 13 5:23pm Neutropenia inactive May 13 5:23pm New onset atrial flutter inactive May 13, 2025 5:23pm Personal history of chemotherapy inactive May 13, 2025 5:23pm Syncope and collapse inactive May 13, 2025 5:23pm Anemia acute May 30 7:28am Diarrhea due to drug acute May 30, 2025 7:28am Encounter for chemotherapy management acute May 30, 2025 7:28am Colon cancer chronic May 30 7:28am Lung nodules chronic May 30 7:28am Regional lymph node metastas is present chronic May 30, 2025 7:28am Anemia acute June 13 8:19am Diarrhea due to drug acute 2024 8:19am Colon cancer chronic June 13, 2025 8:19am Lung nodules chronic June 13, 2025 8:19am Regional lymph node metastas is present chronic June 13 8:19am [facility] [employer] Work Phone: 1([phone]) 788-793405-08-2025 Evaluation note* Diagnosis Onset Date Resolution Status Admit Date Colon cancer chronic March 09 8:53am Lung nodules chronic March 09 8:53am Regional lymph node metastas is present chronic March 09, 2025 8: 53am Colon cancer chronic March 15 7:58am Lung nodules chronic March 15 7:58am Regional lymph node metastas is present chronic March 15, 2025 7 :58am Encounter for education resolved M 2024 7:58am Colon cancer chronic March 15 9:51am Colon cancer chronic March 20 11:03am Encounter for chemotherapy management acute March 21, 2025 7 :21am Colon cancer chronic March 21 7:21am Lung nodules chronic March 21 7:21am Regional lymph node metastas is present chronic March 21, 2025 7 :21am Encounter for chemotherapy management acute April 04, 2025 7 :42am Colon cancer chronic April 04 7:42am Lung nodules chronic April 04 7:42am Regional lymph node metastas is present chronic April 04, 2025 7 :42am Diarrhea due to drug resolved April 04, 2025 7:42am Anemia acute April 18 8:49am Colon cancer chronic April 18 8:49am Lung nodules chronic April 18 8:49am Regional lymph node metastas is present chronic April 18, 2025 8:49am Diarrhea due to drug resolved April 18, 2025 8:49am Anemia acute May 02, 2025 7:29am Encounter for chemotherapy management acute May 02, 2025 7 :29am Colon cancer chronic May 02 7:29am Lung nodules chronic May 02 7:29am Regional lymph node metastas is present chronic May 02, 2025 7 :29am Diarrhea due to drug resolved May 02, 2025 7:29am Syncope and collapse acute May 13, 2025 5:23pm Colon cancer chronic May 13 5:23pm Abnormal brain CT inactive May 132024 5:23pm Acidosis, lactic inactive May 5:23pm Acute hypokalemia inactive May 132024 5:23pm Acute UTI inactive May 13 5:23pm Closed head injury inactive May 022024 5:23pm Leukopenia inactive May 13 5:23pm Neutropenia inactive May 13 5:23pm New onset atrial flutter inactive May 13, 2025 5:23pm Personal history of chemotherapy inactive May 13, 2025 5:23pm Anemia acute May 30 7:28am Encounter for chemotherapy management acute May 30, 2025 7:28am Colon cancer chronic May 30 7:28am Lung nodules chronic May 30 7:28am Regional lymph node metastas is present chronic May 30, 2025 7:28am Diarrhea due to drug resolved May 30, 2025 7:28am Anemia acute June 13 8:19am Colon cancer chronic June 13, 2025 8:19am Lung nodules chronic June 13, 2025 8:19am Regional lymph node metastas is present chronic June 13 8:19am Diarrhea due to drug resolved 2024 8:19am Anemia acute June 27 8:53am Encounter for chemotherapy management acute June 27 8:53am Colon cancer chronic June 27, 2025 8:53am Lung nodules chronic June 27, 2025 8:53am Regional lymph node metastas is present chronic June 27 8:53am Diarrhea due to drug resolved Augu st 2024 8:53am [facility] Work Phone: 1(777) 623-703904-22-2025 History of Present illness Narrative* Malick Ricci, NUCLEAR FUEL PROCESSING TECHNICIAN-COMMISSARY PRODUCTION SUPERVISOR - 02/21/2025 1:45 PM EDT Chief Complaint: [...] (Infrared) Resp 18 Ht 1.549 m (5' 1") Wt 85.5 kg (188 lb 9.6 oz) [...] oncology. Prefer to establish with [facility] as this is closer to home. Referral placed and faxed. Patient was seen in conjunction with Dr. Rosas and the plan of care was developed by him. [facility] * AFRICA Thomas - 02/21/2025 1:45 PM EDT I saw and evaluated the patient with WORKDAY FINANCIALS CONSULTANT. I personally reviewed the chart / imaging [...] on as needed basis. documented in this encounterC[facility] Instructions* Patient Instructions* Irish Boyce RN - 02/21/2025 1:45 PM EDT Survey Following your visit today, you may receive a survey via text or email asking about your experience. We are always looking for ways to improve your visit. Please share your feedback and comments withus- We would love to hear from you! documented in this encounterOSU [facility] Telephone encounter Note* Telephone Encounter - Tricia Otero RN - 01/29/2025 12:15 PM EDT AUTOMATED POST DISCHARGE FOLLOW UP CALL Jessika Carrillo received an automated post discharge call on 01/29/2025 , after discharge from the hospital yesterday. An alert in the [employer] ([employer]) system was received after the patient completed the automated call assessment. The ([employer] System) Alert, medical record, and discharge summary were reviewed. A call back to the patient was then placed to the patient on 01/29/2025. exsulin Questionnaire with Alert: Feedback and alerts Question [...] care instructions that we have provided? Yes "Alert" We like to recognize any employee or doctor who did an excellent job for you while you were in the facility. Are there any employees or doctors you'd like to recognize? When you were discharged, were you prescribed any new medications? No SITUATION: The nurse followed up with the patient with regard to the (above) exsulin post- discharge alerts. In discussion of how [...] appointments with your primary doctor at the [facility]? Yes 02/21/2025 1:45 PM Sachi Rosas Division of Colon & Rectal Surgery Arrive at: Arrive to [facility] Registration [phone] How do you plan to get to [...] that this number is routed to the [facility] Clinical Call Center nurse triage [...] s office, which is routed to the [facility] nurse triage team afterhours. Discussed emergency plan with patient. If patient has a medical emergency, patient instructed to call 911, or proceed to their nearest emergency room. Assisted the patient to formulate a plan, such as keeping all healthcare provider numbers in a prominent place. Tricia Otero RN, BSN, OCN [facility] Post Discharge Call Team & Nurse Clinical Call Center Team [facility]03-30-2025 Miscellaneous Notes* Telephone Encounter - Tricia Otero RN - 01/29/2025 12:15 PM EDT AUTOMATED POST DISCHARGE FOLLOW UP CALL Jessika Carrillo received an automated post discharge call on 01/29/2025 , after discharge from the hospital yesterday. An alert in the [employer]) system was received after the patient completed the automated call assessment. The ([employer] System) Alert, medical record, and discharge summary were reviewed. A call back to the patient was then placed to the patient on 01/29/2025. exsulin Questionnaire with Alert: Feedback and alerts Question [...] care instructions that we have provided? Yes "Alert" We like to recognize any employee or doctor who did an excellent job for you while you were in the facility. Are there any employees or doctors you'd like to recognize? When you were discharged, were you prescribed any new medications? No SITUATION: The nurse followed up with the patient with regard to the (above) [employer] post- discharge alerts. In discussion of how [...] appointments with your primary doctor at the [facility]? Yes 02/21/2025 1:45 PM Sachi Rosas Division of Colon & Rectal Surgery Arrive at: Arrive to [facility] Registration [phone] How do you plan to get to [...] that this number is routed to the [facility] nurse triage team after hours. Do [...] s office, which is routed to the [facility] nurse triage team afterhours. Discussed emergency plan with patient. If patient has a medical emergency, patient instructed to call 911, or proceed to their nearest emergency room. Assisted the patient to formulate a plan, such as keeping all healthcare provider numbers in a prominent place. Tricia Otero RN, BSN, OCN [facility] Post Discharge Call Team & Nurse Clinical Call Center Team documented in this encounterOSCleveland [facility]03-29-[facility] Nurse Note* Nursing Notes - Reyna Maher RN - 01/28/2025 12:28 PM EDT AVS read to pt and family they voice understanding. IV's removed. Meds reviewed. Pt d/c'd in stablecondition at this time. [facility]03-29-2025 Miscellaneous Notes* Nursing Notes - Reyna Maher [...] Transport Request Mode of Transfer Private Vehicle [facility] PCR Discharge Note Jessika Carrillo was discussed [...] & Rectal Surgery Arrive at: Arrive to [facility] First Floor Registration [facility] Risk of Readmission: 2.9% Risk of Readmission: [...] and weekend discharge assistance please page the infection control preventionist PCRM at [phone]. PCRM to continue to follow and provide support. Natalia Etienne RN Float PCRM [phone] * Nursing Notes - Reyna Maher RN [...] Cowart PT , DPT, CLT License #: [id number] * Nursing Notes - Lianna Charles RN - 01/25/2025 8:09 PM EDT 195 (R) PIV Infiltrated and removed. Pictured in chart along with abdominal sites 2007 Contacted infection control preventionist regarding [id number] Jessika Carrillo. Pt's BP 191/111 (MAP 144). Hx HTN. Resting in bed. Denied pain/symptoms. No PRN for increased BP. Looks like she was elevated during the day as well. CB [phone] [id number] Inquired about tele order due to labetalol admin instructions 0420 Contacted infection control preventionist regarding [id number] Jessika Carrillo. Pt reports having three loose black stools on shift. Patient states that this has been ongoing postoperatively. She was wondering if there was anything to help w/ BM. CB [phone] * Plan of Care - Nelly Ramirez RN - 01/25/2025 5:32 PM EDT Problem: Adult Inpatient Plan of Care Goal: Optimal Comfort and Wellbeing Intervention: Monitor Pain and Promote Comfort Flowsheets (Taken 01/25/2025 1731) Pain Management Interventions: zhtxro-cbw-mgyep dosing utilized diversional activity provided pain management [...] Transport Request Mode of Transfer Private Vehicle [facility] PCRM Discharge Note Jessika Carrillo was discussed [...] & Rectal Surgery Arrive at: Arrive to [facility] Floor Registration [facility] Risk of Readmission: 2.9% Risk of Readmission: [...] and weekend discharge assistance please page the infection control preventionist PCRM at [phone]. PCRM to continue to follow and provide support. Natalia Etienne RN Float PCRM [phone] * Nursing Notes - Miracle Etienne RN - 01/24/2025 10:45 AM EDT 01/24/25 1045 Referral Information Arrived From operating room Readmission Information Was patient readmitted within 30 Days? No Information Source Information Source patient ;child Information Source Name Lucy Rosen Information Source Number [phone] Outpatient Providers Outpatient Providers Updated In IHIS Yes Contact Information Lieutenant Ballistics/SW Added to Care Team Yes This Director Of Revenue Cycle Management is Primary Lieutenant Ballistics/SW No Lieutenant Ballistics Name Natalia Etienne Lieutenant Ballistics's Social Work Contact Name Cluster coverage. Executive Kitchen Manager's Phone Number see care team. Living Environment Lives With alone (daughter Alyson lives close by) Living Arrangement and Set Up house Provides Primary Care For no one Caregiving Concerns NA Primary Care Provided By self Support System Immediate family;Oriental Orthodox;Extended family;Friends;Neighbors Able to Return to Prior Arrangements [...] Yes Initial Discharge Planning Home Care Services (PRINTING AGENT) No Home Therapies (PRINTING AGENT) None DME (PRINTING AGENT) None Medical Supplies (PRINTING AGENT) None Patient Goal for Discharge Get better Anticipated Services at Discharge Outpatient clinical services (ie: lab draws, transfusions, injectables) Anticipated Changes Related to Illness none Current Discharge Risk chronically ill Transportation Available car Discharge Coordination/Progress pt to DC to home once medically stable. Home Care Services (PRINTING AGENT) Additional Home Care Services (PRINTING AGENT) no Assessment/Concerns to be Addressed Concerns To [...] in her home alone but her daughter Alyson lives close by. She also has great support from her friends, neighbors and confucianist. She hs no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 911-961103-24-2025 Nurse Surgical operation note* Whitney Castillo RN - 01/23/2025 8:18 AM EDT 0810 Family notified of surgery start 937 Family updated 1040 Hand-off report sent to PACU charge nurse 1058 PACU given notice of arrival 1132 Patient extubated and transported to PACU with anesthesia at bedside on oxygen inhalation. [facility] Note* Whitney Castillo RN - [...] seizure or stroke. documented [facility] encounterOS[facility] Nurse Surgical operation note* Maurisio Finn RN - 01/23/2025 6:21 AM EDT Patient denies hx of chemo and radiation. Patient denies metal or foreign objects in body. EXCEPT Rknee replacement. Patient denies hx of seizure or stroke. [facility]03-11[facility] History and physical note* Mackenzie Reyes APRN-COMMISSARY PRODUCTION SUPERVISOR - 01/10/2025 3:00 PM EDT Images from the original note were not included. PREOPERATIVE ASSESSMENT H[facility]P [facility] Name: Jessika Carrillo Date of Surgery: 01/23/2025 [...] Oral Opening - 3 FB Teeth - marshall dentition Cervical range of motion - within [...] no Do you take anti-coagulations? no Beta Leonardo: yes - metoprolol Patient denies a history of cardiac events or KS. Denies chest pain, palpitation or worsening SOB over the last few months ASSESSMENT AND PLAN- # Functional status - METS: Moderate: 4-7 METS functional status. 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 It is intended as ghvd-wd-ewmx communication. It is written in medical language and may contain abbreviations or verbiagethat are unfamiliar. It may appear blunt or direct. Medical documents are intended to carry relevant information, facts as evident, and the clinical opinion of the practitioner. Mackenzie Reyes, NUCLEAR FUEL PROCESSING TECHNICIAN-COMMISSARY PRODUCTION SUPERVISOR [facility] Perioperative Clinic [address] Review of Systems (OSUROS) Review of Systems [...] resp. rate 16, height 1.549 m (5' 1"), weight 86.8 kg (191 lb 4.8 oz), [...] Chow PA-C as PCP - General (Physician Cashier Greeter) Family History Problem Relation Age of Onset Heart Disease - Other Father Breast Cancer Paternal Aunt 2 aunts with breast cancer Social History Socioeconomic History Marital status: Tobacco Use Smoking status: Former Current packs/day: 0.00 Types: Cigarettes Quit date: 12/06/2019 Years since quittin.1 Smokeless tobacco: Never Substance and Sexual Activity Alcohol use: Yes Comment: wine twice per year Drug use: Never [facility]03-[facility]25 History and physical note* KIRBY Segovia - 01/10/2025 3:00 PM EDT Images from the original note were not included. PREOPERATIVE ASSESSMENT H&P [facility] Name: Jessika Carrillo Date of Surgery: 01/23/2025 [...] Oral Opening - 3 FB Teeth - marshall dentition Cervical range of motion - within [...] no Do you take anti-coagulations? no Beta Leonardo: yes - metoprolol Patient denies a history of cardiac events or KS. Denies chest pain, palpitation or worsening SOB over the last few months ASSESSMENT AND PLAN- # Functional status - METS: Moderate: 4-7 METS functional status. 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 It is intended as jzwv-wc-xgdm communication. It is written in medical language and may contain abbreviations or verbiagethat are unfamiliar. It may appear blunt or direct. Medical documents are intended to carry relevant information, facts as evident, and the clinical opinion of the practitioner. Mackenzie Reyes, NUCLEAR FUEL PROCESSING TECHNICIAN-COMMISSARY PRODUCTION SUPERVISOR [facility] Perioperative Clinic [facility] [address] [facility] Review of Systems (OSUROS) Review of [...] resp. rate 16, height 1.549 m (5' 1"), weight 86.8 kg (191 lb 4.8 oz), [...] Chow PA-C as PCP - General (Physician Cashier Greeter) Family History Problem Relation Age of Onset [...] year Drug use: Never documented in this encounterC[facility]-11-2025 Instructions* Patient Instructions* Shanell Mayo LPN - [...] TRANSFUSE OR RED BLOOD CELLS: 2 Units FL ECG, CLINIC PERFORMED PREOPERATIVE MEDICATION INSTRUCTIONS Below are instructions for what to do with your medicines before your surgery/procedure. Take the medications marked take the morning of surgery/procedure with a sip of water. Please follow this table below for instructions on which medications to hold prior to surgery If you have a change in daily medications prior to surgery/procedure, call the [facility] Clinic at [phone]. Current Outpatient Medications Medication Sig Acetaminophen 325 [...] as, but not limited to, fish oil ([place]-3), garlic,glucosamine -chondroitin, gingko, ginseng, probiotics, or multivitamins) [...] givenyou CHG soap today and written instructions; "Getting Your Skin Ready for Surgery". Please review the instructions carefully prior to [...] Do not wear artificial nails or nail ukrainian the day of surgery. Do NOT bring [...] area for 1 week prior to surgery. [place] your teeth and rinse your mouth the [...] your scheduled surgery, please notify our team ([facility])and your surgeon's office. You may need to have your surgery moved, as we would not want to put youat risk for complications, You MUST arrange for a responsible adult to drive you to your procedure, stay for the surgery, listen to discharge instructions, and drive you home after surgery, otherwise your surgery may be cancelled. [facility] Preoperative Testing Clinic Mary Cain [phone] AVS/EE documented in this [facility]OS[facility] History of Present illness Narrative* Hali Barnett [...] a coupon for Ensureproducts. documented in this encounterOS[facility]25 Instructions* Patient Instructions* Hali Barnett [...] to make arrangements for lodging at the [facility] , or the [facility], [address] [place] [address], . Discounted rates are available upon request at the time [facility]. Please inquire about free shuttle service to and from the hospital. Cricket shuttle service can be contacted at . On the Day of Surgery: Please check in at the central Registration Office on the administrative assistant data entry (2 hours prior to surgery time). After Registration you be directed to our Perioperative Unit for your procedure. Surgery times can vary from the actual scheduled times. They can be either longer or shorter than expected. Please check the below website for our current Visitor Policy prior to your scheduled Surgery: [email or web address] Pre-Operative Bowel Preparation [facility] A bowel prep is done to prepare the bowel for surgery or a procedure. Its purpose is to clear out the bowel of all solid matter. Please follow these instructions. Begin the bowel prep on the day before your scheduled surgery. Prescriptions will be sent to your pharmacy [facility] [address] [place] [phone] [facility] for: Dulcolax 20 mg (available [...] pulp Popsicles Ice Soft drinks Gatorade (Lemon [place] preferred) Clear broth or bouillon Jell-O Coffee [...] is not red, orange, or purplein color. Lemon-saxman is preferred. You may need to pour [...] program. You can also get help through: [facility] Tobacco Dependency [facility], National Quit Line, [place] Lung Association, [place] Cancer Society, Smokefree.gov website Stop Alcohol Use [...] Anonymous (AA) http://www.aa.org/ Rethinking Drinking https://www.rethinkingdrinking.niaaa.nih.gov/ National [place] of Alcohol Abuse and Alcoholism https://niaaa.nih.gov/ Andrews Jerome 726-019-0189 -Inpatient, partial hospitalization and outpatient services for [...] Patient Controlled Analgesia (also known as a INSTRUMENTATION MANAGER) A INSTRUMENTATION MANAGER is a pain pump that could be [...] Care Everywhere. * Colorectal Resection (Lexis Paul) (Sierra Leonean) * Use of Incentive Spirometer Before Your Surgery (Lexis Paul) (Sierra Leonean) documented in this encounterC[facility]-04-20[facility] History of Present illness Narrative* AFRICA Thomas [...] resp. rate 18, height 1.54 m (5' 0.63"), weight 87.2 kg (192 lb 3.2 oz), [...] regarding the kidney abnormality. documented in this [facility]02-04-2025 Instructions* Patient Instructions* Irish Boyce RN [...] to hear from you! documented in this encounterOSC[facility]ult note Author Ora Perez [facility] Note Date/Time March 20, 2025 1:18p m [facility] Medical Records Department [address] [place] [address] Anesthesia Postop Eval I 03/20/251316 MR#: [id number] Acct: [id number] Name: JESSIKA CARRILLO Rep #:[id number] : 1950 74 From: Ora Perez CRNA PCP: JUVENTINO Pérez Status:REG SD Y Race: C Location: [place] [address] Anesthesia: Postop Eval I Current Vital Signs [...] Anesthesia document: Postop Eval 1 completed: Yes 03/20/258 <Electronically signed by Ora Perez CR NA> Date _ Ora Perez CRNA Cosigner Signature: Date CC: ~ Signed [facility] Work Phone: Consult note Author Josue Ceballos [facility] Note Date/Time March 20, 2025 2:24p [facility] Medical Records Department [address] [place] [address] Anesthesia Postop Eval II 03/20/25 1424 MR#: [id number] Acct: [id number] Name: JESSIKA CARRILLO Rep #:[id number] : 1950 74 From: Josue Ceballos MD PCP: JUVENTINO Pérez Status:REG SDC Y Race: C Location: [address] Anesthesia Postop Eval I Sum Postop Eval Completion status Anesthesia document: Postop Eval 1 completed: Yes Anesthesia Postop Eval I Summary Anesthesia Postop Eval I Summary: Anesthesia Postop Eval I: Assessment Summary Airway patent Yes 03/20/25 13:18 PROTECTIVE SERVICES SOCIAL WORKER.HBARR Spontaneous unlabored Yes 03/20/25 13:18 PROTECTIVE SERVICES SOCIAL WORKER.HBARR respirations Mental status Awake 03/20/25 13:18 PROTECTIVE SERVICES SOCIAL WORKER.HBARR nausea No 03/20/25 13:18 PROTECTIVE SERVICES SOCIAL WORKER.HBARR Vomiting No 03/20/25 13:18 PROTECTIVE SERVICES SOCIAL WORKER.HBARR Anesthesia Postop Eval I: Fluid Summary Crystalloid volume administer 500 03/20/25 13:18 PROTECTIVE SERVICES SOCIAL WORKER.HBARR (ml) Colloids volume administered ( ml) Blood Product volume administered (ml) Total IV fluid infused 500 03/20/25 13:18 PROTECTIVE SERVICES SOCIAL WORKER.HBARR Anesthesia Postop Eval I: Summary Notes Anesthesia Complication No 03/20/25 13:18 PROTECTIVE SERVICES SOCIAL WORKER.HBARR Anesthesia Complication Comment: Post-operative progress note Anesthesia: Postop Eval II Evaluation Mental status: Awake Pain Level: 0 nausea: No Vomiting: No 03/20/254 <Electronically signed by Josue Ceballos MD > Date _ Josue Anandign Signature: Date CC: ~ Signed [facility] Work Phone: Discharge summary Author Michael Gaines [facility] Note Date/Time March 20, 2025 1:20p m [facility] Medical Records Department [address] [place] [address] Instructions for Home/Discharge Instructions 03/20/25 1316 MR#: [id number] Acct: [id number] Name: JESSIKA CARRILLO Rep #:[id number] : 1950 74 From: Michael Gaines MD PCP: JUVENTINO Pérez Status:REG [facility] Discharge Instructions Diet Discharge [...] Care Provider: Shu Chow Instructions Print Language: Sierra Leonean Discharge Orders/Prescriptions Prescriptions: New oxycodone-acetaminophen [Percocet] 5-325 [...] Gaines MD CC: JUVENTINO Pérez ~ Signed [facility] Work Phone: Discharge summary Author Maciel Montesinos [facility] Note Date/Time May 15, 2025 4:45 pm [facility] Medical Records Department [address] [place] [address] Instructions for Home/Discharge Instructions 05/15/25 1630 MR#: [id number] Acct: [id number] Name: JESSIKA CARRILLO Rep #:[id number] : 1950 74 From: Maciel Montesinos DO PCP: JUVENTINO Pérez Status:ADM IN Discharge Instructions DC O2, CPAP, BIPAP needs Home O2 Discharge instructions: No Dressing / Incision Discharge Activity: Return to Normal Activity Weight Bearing Status: Full weight bearing Follow Up Care Test Results: Test results from this visit will be discussed in further detail at your follow- up appointment, if applicable. Discharge Plan Admission Admit Date/Time: 05/13/25 17:23 Primary Reason for Your Visit: urinary tract infection, low potassium Attending Provider: Maciel Montesinos Primary Care Provider: Shu Chow Discharge Orders/Prescriptions Prescriptions: New ondansetron HCl 8 mg tablet 8 mg PO Q8H PRN (Reason: nausea and vomiting) Qty: 30 0RF dicyclomine 20 mg tablet 20 mg PO .QID PRN (Reason: diarrhea) Qty: 40 0RF cephalexin 500 mg capsule 500 mg PO TID Qty: 15 0RF Rx Instructions: start on 05/16/25 losartan 50 mg tablet 50 mg PO DAILY Qty: 30 0RF Continued metoprolol succinate 50 mg tablet extended release 24 hr 50 mg PO DAILY Discontinued lisinopril-hydrochlorothiazide 20-25 mg Tablet 1 tab PO DAILY Referrals / Follow Up: Shu Chow PA [Primary Care Provider] - In 1 Week [place] MD [Med Staff - Active Staff] - See Referral Note (Do not go to your appointment on 05/16/2025, office will call you for a follow-up appointment) Disposition Disposition (needs filled in before D/C Order can be placed): Home, Self Care 05/15/25 1645<Electronically signed by Maciel Montesinos DO>Maciel Montesinos DO CC: JUVENTINO Pérez ~ Signed [facility] Work Phone: Evaluation note* Diagnosis Malignant neoplasm of ascending colon- Primary [facility] Diagnosis Malignant neoplasm of ascending colon [facility]* Diagnosis Malignant neoplasm of ascending colon [facility] in [facility] Diagnosis Malignant neoplasm of ascending colon- Primary Malignant neoplasm of ascending colon documented in this encounter [facility]* Diagnosis Preop exam for internal medicine- Primary Other specified pre-operative examination Malignant neoplasm of ascending colon Essential hypertension Unspecified essential hypertension Mixed hyperlipidemia Abnormal coagulation profile Malignant neoplasm of ascending colon [facility] Diagnosis Colon cancer- Primary Malignant neoplasm of colon, unspecified site Malignant neoplasm of ascending colon [facility] Diagnosis Malignant neoplasm of ascending colon- Primary documented in this encounter [facility] and physical note Author Maciel [facility] Note Date/Time May 13, 2025 5:58 pm [facility] Medical Records Department [address] [place] [address] H&P Exam - Hospitalist 05/13/25 1750 MR#: [id number] Acct: [id number] Name: JESSIKA CARRILLO Rep #:[id number] : 1950 74 From: Maciel Montesinos DO PCP: JUVENTINO Pérez Status:ADM IN Location: [place] [id number] HPI - General General Date of Admission: 05/13/25 Date of Service: 05/13/25 Chief Complaint: Syncope, weakness HPI Narrative JESSIKA CARRILLO, is a 74 F who presents to the emergency room at [facility] at the advice of her PCP due to a syncopal episode she had yesterday and generalized weakness. Patient was under treatment for colon cancer and is on chemotherapy. Workup in the emergency room included a CT of the brain which showed evidence of a left parietal calcification concerning for metastatic disease, she was noted to be hypotensive and tachycardic, EKG was obtained and it was noted that she was in atrial flutter-patient denied ever having that rhythm before. Patient was fluids and labs were obtained, patient's total whiteblood cell count was low at 2.4, hemoglobin was 11.5, chemistry profile was remarkable for sodium 132 and a potassium of 3.1. Lactic acid was 2.4 and glucose was 147. UA was obtained which showed +2 bacteria, 5-10 WBCs and 0-5 RBCs. Patient was felt to have acute cystitis and new onset atrial flutter with rapid ventricular response as well as hypokalemia. Patient's blood pressure improved with administration of IV fluid, patient was given IV Rocephin, she was not given anything for her atrial flutter as her rate eventually lowered. Patient will be admitted to PCU, IV antibiotics will be continued and she will be given IV fluids, patient will undergo an MRI on 05/15/2025 due to her abnormal brain CT. [facility] Medical History Anemia Diarrhea due to drug [...] ?Type lisinopril 20 1 tab PO DAILY 03/18/2105/02 History mg-hydrochlorothiazide 25 mg tablet metoprolol succinate 50 mg 50 mg PO DAILY 05/13/2510/26 History tablet,extended release 24 hr Allergy/AdvReac Type Severity Reaction Status Date / Time No Known Allergies Allergy Verified 05/02/25 08:04 Family History Father Heart disease Aunt Breast cancer Surgical History History of hysteroscopy History of colectomy History of total right knee replacement Hx of colonoscopy Social History Smoking Status: Former smoker Tobacco: How many years used: 5 alcohol intake: never substance use type: does not use ROS Constitutional Constitutional: Reports fatigue and weakness; Denies anorexia, change in weight,chills, fever(s) or night sweats Eyes Eyes: Denies blurry vision, change in vision, discharge from eye(s) or eye pain Cardiovascular Cardiovascular: Reports lightheadedness and syncope; Denies chest pain, claudication, edema or palpitations Respiratory/Chest Respiratory/Chest: Denies cough, hemoptysis, shortness of breath at rest or shortness of breath with exertion Gastrointestinal Gastrointestinal: Denies abdominal pain, constipation, diarrhea, hematemesis, hematochezia, melena, nausea or vomiting Genitourinary Genitourinary: Denies dysuria, hematuria, urinary frequency, urinary hesitancy, urinary incontinence or urinary urgency Musculoskeletal Musculoskeletal: Denies back pain, joint pain, joint stiffness, joint swelling, myalgias or neck pain Neurologic Neurologic: Denies abnormal gait, abnormal speech, dizziness, focal weakness, headache(s), loss of vision, numbness, other visual disturbances, paresthesias, syncope or tingling Psychiatric Psychiatric: Denies anxiety, cognitive impairment, depression, irritability, mood swings or suicidal ideation Endocrine Endocrinology: Denies change in body appearance, cold intolerance, excessive sweating, heat intolerance, polydipsia or polyuria Hematologic/Lymphatic Hematologic/Lymphatic: Denies none, anemia, easy bleeding, easy bruising or lymphadenopathy Allergic/Immunologic Allergic/Immunologic: Denies rhinitis, urticaria, eczemia or asthma Vital Signs Vital Signs Vital Signs: 05/13/25 12:11 05/13/25 12:13 05/13/25 12:27 Temperature 98.3 F 98.9 F Temperature Source Oral Oral Pulse Rate 17 L 93 Pulse Rate [Lying] Pulse Rate [Sitting (for 1 minute prior to obtaining)] Pulse Rate [Standing (for 1 minute prior to obtaining)] Respiratory Rate 120 H 14 Respiratory Effort Normal Respiratory Pattern Normal Blood Pressure 89/53 L 99/72 Blood Pressure [Lying] Blood Pressure [Sitting (for 1 minute prior to obtaining)] Blood Pressure [Standing (for 1 minute prior to obtaining)] Blood Pressure Mean 65 81 Blood Pressure Mean [Lying] Blood Pressure Mean [Sitting (for 1 minute prior to obtaining)] Blood Pressure Mean [Standing (for 1 minute prior to obtaining)] Pulse Ox 94 97 Oxygen Delivery Method Room Air Room Air 05/13/25 13:13 05/13/25 14:00 05/13/25 15:00 Temperature 98.6 F 98.7 F 98.7 F Temperature Source Temporal Temporal Oral Pulse Rate 89 89 78 Pulse Rate [Lying] Pulse Rate [Sitting (for 1 minute prior to obtaining)] Pulse Rate [Standing (for 1 minute prior to obtaining)] Respiratory Rate 18 18 27 H Respiratory Effort Respiratory Pattern Blood Pressure 100/60 107/59 L 105/67 Blood Pressure [Lying] Blood Pressure [Sitting (for 1 minute prior to obtaining)] Blood Pressure [Standing (for 1 minute prior to obtaining)] Blood Pressure Mean 73 75 79 Blood Pressure Mean [Lying] Blood Pressure Mean [Sitting (for 1 minute prior to obtaining)] Blood Pressure Mean [Standing (for 1 minute prior to obtaining)] Pulse Ox 99 97 95 Oxygen Delivery Method Room Air Room Air 05/13/25 16:00 05/13/25 16:02 05/13/25 17:00 Temperature Temperature Source Pulse Rate 81 91 Pulse Rate [Lying] 85 Pulse Rate [Sitting (for 1 minute prior to obtaining)] 92 Pulse Rate [Standing (for 1 minute prior to obtaining)] 114 H Respiratory Rate 14 17 Respiratory Effort Respiratory Pattern Blood Pressure 126/74 H 116/86 H Blood Pressure [Lying] 115/69 Blood Pressure [Sitting (for 1 minute prior to obtaining)] 114/75 Blood Pressure [Standing (for 1 minute prior to obtaining)] 114/92 H Blood Pressure Mean 91 96 Blood Pressure Mean [Lying] 84 Blood Pressure Mean [Sitting (for 1 minute prior to obtaining)] 88 Blood Pressure Mean [Standing (for 1 minute prior to obtaining)] 99 Pulse Ox 96 Oxygen Delivery Method Room Air 05/13/25 17:13 Temperature 98.7 F Temperature Source Pulse Rate 91 Pulse Rate [Lying] Pulse Rate [Sitting (for 1 minute prior to obtaining)] Pulse Rate [Standing (for 1 minute prior to obtaining)] Respiratory Rate 17 Respiratory Effort Respiratory Pattern Blood Pressure 116/86 H Blood Pressure [Lying] Blood Pressure [Sitting (for 1 minute prior to obtaining)] Blood Pressure [Standing (for 1 minute prior to obtaining)] Blood Pressure Mean 96 Blood Pressure Mean [Lying] Blood Pressure Mean [Sitting (for 1 minute prior to obtaining)] Blood Pressure Mean [Standing (for 1 minute prior to obtaining)] Pulse Ox 96 Oxygen Delivery Method Weight Weight: 80.7 kg Body Mass Index (BMI) 32.5 Physical Exam Const alert, oriented x3 and no apparent distress General Appearance: cooperative, well kempt and well developed Orientation / Consciousness: awake, oriented to person, oriented to place and oriented to time HEENT normocephalic, head/scalp atraumatic, hearing grossly normal bilaterally and moist oral mucous membranes Eyes PERRL, EOMs intact bilaterally and conjunctivae normal Neck supple, no JVD, thyroid normal and no carotid bruits General: trachea midline Resp normal respiratory effort, no retractions, no use of accessory muscles and clearto auscultation bilaterally Auscultation: Negative for rales, rhonchi or wheezes Cardio S1 normal heart sound, S2 normal heart sound, no murmurs, no rub and no gallops Cardio Narrative: Heart rate and rhythm is irregular GI normal to inspection, nondistended, normoactive bowel sounds, soft to palpation,non-tender and non-distended Extremity no clubbing, cyanosis or edema Skin no rashes or lesions noted General Skin Exam: no breakdown Neuro oriented x3, CN's II-XII intact bilaterally, moves all extremities, no focal motor deficits and no sensory deficits noted Sensorium / Orientation: awake and alert Speech: speech normal Psych affect normal Results Lab / Micro Data 05/13/25 12:54 05/13/25 12:54 Labs: Laboratory Results - last 24 hr 05/13/25 12:54: WBC 2.4 L, RBC 3.80 L, Hgb 11.5 L, Hct 34.0 L, MCV 89.5, MCH 30.3, MCHC 33.8, RDW Std Deviation 45.4 H, RDW Coeff of Kec[place] 14.7 H, Plt Count 225, MPV 9.0, Neut % (Auto) Not Reportable, Absolute Neuts (auto) 0.7 L, Absolute Lymphs (auto) 0.98, Total Counted 100, Neutrophils % (Manual) 28 L, Band Neutrophils % 2, Lymphocytes % (Manual) 40, Monocytes % (Manual) 29 H, Eosinophils % (Manual) 1, Sodium 132 L, Potassium 3.1 L, Chloride 98, Carbon Dioxide 21.5, Anion Gap 13, BUN 12, Creatinine 0.83, Estim Creat Clear Calc 57.64, Est GFR (MDRD) Non-Af 74, BUN/Creatinine Ratio 15.0, Glucose 147 H, Lactic Acid 2.4 H*, Calcium 8.7, Magnesium 1.9, Total Bilirubin 0.42, AST 24, ALT25, Alkaline Phosphatase 74, Total Protein 6.4, Albumin 3.1 L, Globulin 3.4, Albumin/Globulin Ratio 0.9, Lipase 13 05/13/25 15:43: Urine Color Yellow, Urine Clarity Sl. Cloudy, Urine pH 6.5, Ur Specific [place] 1.010, Urine Protein 30 H, Urine Glucose (UA) Normal, Urine Ketones Negative, Urine Occult Blood 10 H, Urine Nitrite Negative, Urine Bilirubin Negative, Urine Urobilinogen Normal, Ur Leukocyte Esterase 500 H, Urine RBC 0-5 SEEN, Urine WBC 5-10 SEEN, Ur Squamous Epith Cells 0-5 SEEN, Amorphous Sediment 1+, Urine Bacteria 2+, Hyaline Casts 0-5 SEEN, Urine Mucus 1+ Rhythm Strip Rhythm Strip: A-fib Rate: 97 Ectopy: None Imaging Radiology Impression Brain CT 05/13/25 12:46 IMPRESSION: Focal calcification in the left parietal lobe measuring up to 1.8 cm, concerningfor metastatic spread in this patient with history of colon cancer. Differential also includes other neoplasms (meningioma)or sequela of prior insult (vascular, infectious/inflammatory). Recommend contrast-enhanced MRI for further evaluation, if not previously performed. Reading Location: [id number] Chest X-Ray 05/13/25 13:05 IMPRESSION: No acute cardiopulmonary abnormality. Reading Location: [facility] Assessment & Plan Assessment/Plan (1) Syncope and collapse: PLAN: Plan 1. Syncope secondary to hypotension from atrial flutter-patient's rate is improved at this time, patient will be admitted to PCU, she will be monitored ontelemetry, she already is on a beta-leonardo as an outpatient and this will be continued. Patient will be given IV fluids #2 new onset atrial flutter with RVR-I will talk with the patient tomorrow concerning full anticoagulation, for now, patient will be monitored and will receive beta-leonardo, patient will undergo an echocardiogram on 05/15/2025. #[address] of the brain indicating possible metastatic cancer-patient will undergo an MRI on 05/15/2025, she follows up with oncology as an outpatient. #4 colon cancer-under active treatment with chemotherapy, complicates care, management, recovery, and prognosis #5 hypokalemia-patient will be given potassium supplementation through her IV, BMP will be rechecked #6 acute cystitis-patient will be treated with Rocephin, cultures are pending Total clinical time spent by myself addressing the patient's medical issues, reviewing all of her data, and collaborating with patient's care team: 75 minutes Charges/Coding Visit Charges Inpatient E&M: 80707 Init Hosp L3 05/13/25 4156 <Electronically signed by Maciel Montesinos DO> Cosigner Signature (if applicable): CC: Dr. Maciel Montesinos DO; JUVENTINO Pérez~ Signed [facility] Work Phone: Progress note Author [place] [facility] Note Date/Time July 25, 2025 10:56am [facility] [address] [address] OFFICE VISIT Date of Service: 07/25/25 1039 MR#: [id number] Acct: [id number] Name: JESSIKA CARRILLO Rep #: [id number] : 1950 From: New p[place] MD Age/Sex: 74/F [place] [facility] [place]: Signed HPI Subjective Date of Service 07/25/25 Chief Complaint Colon cancer on treatment History of Present Illness 74-year-old female with no family of colon cancer had screening colonoscopy August 17, [address] Boles at [facility] with 2 sessile polypoid lesions were found, [...] left kidney. Patient was then referred to [facility] for further management. December 31, 2024 MRI [...] January 23, 2025 robotic right hemicolectomy at [facility] by Dr. Antonio. Pathology: Right colon terminal [...] isnot present. No further testing was indicated. May 15, 2025 brain MRI: Following a syncopal episode: IMPRESSION: 1. There is an area of abnormal signal on the gradient echo images corresponding to the coarse calcifications seen in the left parietal lobe, posteriorly. There is no associated vasogenic edema or contrast enhancement. This is likely a chronic finding, of questionable clinical significance. 2. There are no foci of abnormal intracranial contrast enhancement or vasogenicedema to suggest metastatic disease. 3. Findings consistent with chronic ischemic white matter disease. Treatment summary and response: January 23, 2025 robotic right hemicolectomy at [facility]. March 21, 2025 adjuvant modified FOLFOX 6 PFSH Medical History NELSON (obstructive sleep apnea) Obesity Vitamin D deficiency Dizziness New onset a-fib Abnormal brain CT Neutropenia Syncope and collapse Lung nodules Colon cancer Back pain Atrial flutter Anemia Diarrhea due to drug Encounter for chemotherapy management Loss of hearing Asthma Encounter for education Regional lymph node metastasis present Degenerative joint disease Arthritis High cholesterol History of Meniere's disease Hypertension Surgical History History of hysteroscopy History [...] and no addt'l complaints, except as documented, diarrhea and other Details: diarrhea is manageable with diet modification and Imodium ; Denies dysphagia, hematochezia, melena or nausea Genitourinary Genitourinary: Reports systems reviewed and no [...] addt'l complaints, exceptas documented Intake Vital Signs 06/27/25 09:43 07/25/25 10:40 07/25/25 10:41 Height 5 ft 1 in 5 ft 1 in 5 ft 1 in Weight: 81.76 kg BMI 34.0 BP 150/85 H Blood Pressure Location Rt brachial Position Sitting Respiration 16 Pulse 70 Pulse Source Monitor Temp 97.7 F L Temperature Source Temporal Artery Pulse Oximetry (%) 97 Oxygen Delivery Method room air Intake Is patient in pain?: No Allergies No Known Allergies Allergy (Verified 07/25/25 10:41) Medications ?Medication ?Instructions ?Recorded ?Confirmed ?Type metoprolol succinate 50 mg 50 mg PO DAILY 05/13/25 History tablet,extended release 24 hr dicyclomine 20 mg tablet 20 mg PO .QID PRN diarrhea # 40 tabs 05/15/25 07/25/25 Rx losartan 50 mg tablet 50 mg PO DAILY #30 tabs 05/0207/25/25 Rx ondansetron HCl 8 mg tablet 8 mg PO Q8H PRN nausea and 05/15/25 07/25/25 Rx vomiting #30 tabs apixaban 5 mg tablet (Eliquis) 5 mg PO BID 05/30/25 History loperamide 2 mg capsule (Imodium 2 mg PO Q6H PRN 05/3007/25/25 History A-D) Tumeric PO 06/23/25 07/25/25 History calcium 600 mg (as 1 tab PO QDAY 06/23/2507/25 History carbonate)-vitamin D3 10 mcg (400 unit) tablet (Calcium with Vitamin D) multivitamin 1 tab PO QDAY 06/23/2507/25 History Have you fallen in the past year?: No Central Venous Access Central Venous Access: Yes Port/PICC: Port CBC, CMP July 25, 2025 reviewed in EMR Exam Physical Exam Narrative ECOG 0-1 Const [...] no focal motor deficits Coordination / Balance: ionrqx-pc-masu test normal Speech: speech normal Gait (Neuro): normal gait Psych mental status grossly normal Coding Level of Care Code Off vis,est,level 4 Exam Problem Focused Diagnoses Malignant neoplasm of ascending colon C18.2 Colon location: ascending Regional lymph node metastasis present C77.9 Lung nodules R91.8 Anemia D64.9 Diarrhea due to drug K52.1 Assessment and Plan Assessment and Plan (1) Colon cancer: Status: Chronic Qualifiers: Colon location: ascending Qualified Code(s): C18.2 - Malignant neoplasmof ascending colon (2) Regional lymph node metastasis present: Status: Chronic (3) Lung nodules: Status: Chronic (4) Anemia: Status: Acute (5) Diarrhea due to drug: Status: Resolved Plan 74-year-old female with high risk stage III colon cancer (T3, N2, M0), status post robotic assisted right hemicolectomy December 2024 at [facility]. There are 2 subcentimeter too small to characterize lung nodules that will be followedup. Started adjuvant modified FOLFOX March 2025 with diarrhea being main side effect experienced manageable after fluorouracil leucovorin boluses were laminated. Chronic comorbid conditions: Hypertension, dyslipidemia, DJD, obesity and history of M?ni?re's disease. Recommendations: Based on NCCN guidelines and up-to-date review of treatment of stage III high risk colon cancer with intent to cure advise: 1. Continue 6 months adjuvant modified FOLFOX 6. She was dose adjusted by eliminating 5-FU bolus as of cycle 5 due to diarrhea. 2. Supportive treatment with antiemetics and Imodium 3. 2 lung nodules will be followed up with CT of the chest, abdomen and pelvis at the end of treatment. 4. Will follow CEA to normalization, a preoperative CEA from outside was not found. 5. Anemia of cancer and chemotherapy, no evidence for nutritional deficiencies of iron or B12 Patient was seen with her daughter, impression and plan discussed. [place] MD [employer], [facility] Divisions of Medical Oncology & Hematology Department of Internal Medicine [place] [id number] This note was generated using a voice [...] you fallen in the past year?: No 07/25/25 1056 <Electronically signed by New bar[place] MD> Date _ [place] MD Cosigner Signature: Date (if applicable) CC: Dr. [place] MD ~ [facility] Work Phone: Progress note Author [place] [facility] Note Date/Time August 22, 2025 1 1:21am [facility] [address] [address] OFFICE VISIT Date of Service: 08/22/25 1003 MR#: [id number] Acct: [id number] Name: JESSIKA CARRILLO Rep #: [id number] : 1950 From: New peterson MD Age/Sex: 75/F Location: [facility] Status: Signed HPI Subjective Date of Service 08/22/25 Chief Complaint Colon cancer on treatment History of Present Illness 75-year-old female with no family of colon cancer had screening colonoscopy August 17, [address] Boles at [facility] with 2 sessile polypoid lesions were found, [...] left kidney. Patient was then referred to [facility] for further management. December 31, 2024 MRI [...] January 23, 2025 robotic right hemicolectomy at [facility] by Dr. Antonio. Pathology: Right colon terminal [...] isnot present. No further testing was indicated. May 15, 2025 brain MRI: Following a syncopal episode: IMPRESSION: 1. There is an area of abnormal signal on the gradient echo images corresponding to the coarse calcifications seen in the left parietal lobe, posteriorly. There is no associated vasogenic edema or contrast enhancement. This is likely a chronic finding, of questionable clinical significance. 2. There are no foci of abnormal intracranial contrast enhancement or vasogenicedema to suggest metastatic disease. 3. Findings consistent with chronic ischemic white matter disease. Treatment summary and response: January 23, 2025 robotic right hemicolectomy at [facility]. March 21, 2025 adjuvant modified FOLFOX 6 Interval History She developed an infusion reaction "trash" to oxaliplatin cycle 9. Recovered. [facility] Medical History NELSON (obstructive sleep apnea) Obesity Vitamin D deficiency Dizziness New onset a-fib Abnormal brain CT Neutropenia Syncope and collapse Lung nodules Colon cancer Back pain Atrial flutter Anemia Diarrhea due to drug Encounter for chemotherapy management Loss of hearing Asthma Encounter for education Regional lymph node metastasis present Degenerative joint disease Arthritis High cholesterol History of Meniere's disease Hypertension Surgical History History of hysteroscopy History [...] and no addt'l complaints, except as documented, diarrhea and other Details: diarrhea is manageable with diet modification and Imodium ; Denies dysphagia, hematochezia, melena or nausea Genitourinary Genitourinary: Reports systems reviewed and no [...] addt'l complaints, exceptas documented Intake Vital Signs 06/27/25 09:43 08/22/25 10:04 08/22/25 10:06 Height 5 ft 1 in 5 ft 1 in 5 ft 1 in Weight: 83.688 kg BMI 34.8 BP 137/81 H Blood Pressure Location Lt brachial Position Sitting Respiration 18 Pulse 76 Pulse Source Monitor Temp 97.7 F L Temperature Source Temporal Artery Pulse Oximetry (%) 95 Oxygen Delivery Method room air Intake Is patient in pain?: No Allergies oxaliplatin Allergy (Intermediate, Verified 08/08/25 10:55) Rash Have you fallen in the past year?: No Central Venous Access Central Venous Access: Yes Port/PICC: Port Laboratory Tests 03/09/25 03/21/25 05/02/25 10:15 07:56 07:50 Carcinoembryonic Ag 6.3 H 5.5 H 8.3 H 06/27/25 09:30 Carcinoembryonic Ag 7.9 H Exam Physical Exam Narrative ECOG 0-1 [...] no focal motor deficits Coordination / Balance: ymgcuo-um-ygck test normal Speech: speech normal Gait (Neuro): normal gait Psych mental status grossly normal Coding Level of Care Code Off vis,est,level 4 Exam Problem Focused Diagnoses Malignant neoplasm of ascending colon C18.2 Colon location: ascending Regional lymph node metastasis present C77.9 Lung nodules R91.8 Anemia D64.9 Diarrhea due to drug K52.1 Assessment and Plan Assessment and Plan (1) Colon cancer: Status: Chronic Qualifiers: Colon location: ascending Qualified Code(s): C18.2 - Malignant neoplasmof ascending colon (2) Regional lymph node metastasis present: Status: Chronic (3) Lung nodules: Status: Chronic (4) Anemia: Status: Chronic (5) Diarrhea due to drug: Status: Chronic Plan 74-year-old female with high risk stage III colon cancer (T3, N2, M0), status post robotic assisted right hemicolectomy December 2024 at [facility]. There are 2 subcentimeter too small to characterize lung nodules that will be followedup. Started adjuvant modified FOLFOX March 2025 with diarrhea being main side effect experienced manageable after fluorouracil leucovorin boluses were laminated. She developed an infusion reaction "trash" to oxaliplatin cycle 9. Recovered. Oxaliplatin discontinued as of cycle 10 Chronic comorbid conditions: Hypertension, dyslipidemia, DJD, obesity and history of M?ni?re's disease. Recommendations: Based on NCCN guidelines and up-to-date review of treatment of stage III high risk colon cancer with intent to cure advise: 1. Continue 6 months adjuvant modified FOLFOX 6. She was dose adjusted by eliminating 5-FU bolus as of cycle 5 due to diarrhea and eliminating oxaliplatinas of cycle 10 due to rash (cycle 9). 2. Supportive treatment with antiemetics and Imodium 3. 2 lung nodules will be followed up with CT of the chest, abdomen and pelvis at the end of treatment. 4. Will follow CEA to normalization, a preoperative CEA from outside was not found. 5. Anemia of cancer and chemotherapy, no evidence for nutritional deficiencies of iron or B12 Patient was seen with her daughter, impression and plan discussed. [place] MD [employer] Engineer, [facility] Divisions of Medical Oncology & Hematology Department of Internal Medicine [place] [phone] This note was generated using a voice [...] you fallen in the past year?: No 08/22/25 1024 <Electronically signed by [place] MD> Date _ [place] MD Cosigner Signature: Date (if applicable) CC: ~ [facility] Work Phone: Reason for visit Narrative* MRI/CAT Scan (Routine) - Closed Specialty Diagnoses / Procedures Referred By Yaw gayle Referred To Contact Diagnoses Malignant neoplasm of ascending colon Procedures CT CHEST WITH CONTRAST CHG DIAGNOSTIC COMPUTED TOMOGRAPHY THORAX W/CONTRAST Sachi [facility]as [employer] [address] [address] Phone: tel: fax: Referral ID Status Reason Start Date Expiration Date Visits Re quested Visits Authorized [id number] Closed 12/06/2024 12/31/2025 [facility] MRI/CAT Scan (Routine) - Closed Specialty Diagnoses / Procedures Referred By Yaw gayle Referred To Contact Diagnoses Malignant neoplasm of ascending colon Procedures MRI ABDOMEN WITH AND WITHOUT CONTRAST CHG MRI ABDOMEN W/O CONTRAST FLWD BY W/CONTRAST Sachi Rosas [employer] [address] [address] Phone: tel: fax: Referral ID Status Reason Start Date Expiration Date Visits Re quested Visits Authorized [id number] Closed 12/06/2024 12/31/2025 1 1 [facility]* Auth/Cert Specialty Diagnoses / Procedures Referred By Yaw gayle Referred To Contact Diagnoses Malignant neoplasm of ascending colon Malignant neoplasm of ascending colon [C18.2] Procedures FL LAPAROSCOPY COLECTOMY PARTIAL W/ANASTOMOSIS COLECTOMY PARTIAL ROBOTIC XI RIGHT Sachi Rosas [employer] [address] [facility] [address] [place] [address] Phone: tel: fax: [facility] [address] [place] [address] Referral ID Status Reason Start Date Expiration Date Visits Re quested Visits Authorized [id number] 1 1 [facility] Summary Purpose Family History No Family History [...] Do you have a Healthcare Power of Shared Services And Outsourcing Manager? No March 17, 2025 11:44am Advance Directive Response Recorded Date/ Time Do you have a Healthcare Power of Shared Services And Outsourcing Manager? No March 17, 2025 11:44am Advance Directives on File No March 032024 11:35am Living Will No March 23, 2025 1 1:35am Do you have a Healthcare Power of Shared Services And Outsourcing Manager? No March 23, 2025 11:35am Advance Directives No March 23 11:35am Advance Directive Response Recorded Date/ Time Do you have a Healthcare Power of Shared Services And Outsourcing Manager? No March 17, 2025 11:44am Advance Directives on File No April 06, 2025 3:33pm Living Will No April 06, 2025 3 :33pm Do you have a Healthcare Power of Shared Services And Outsourcing Manager? No April 06, 2025 3:33pm Advance Directives No April 06 3:33pm Advance Directive Response Recorded Date/ Time Do you have a Healthcare Power of Shared Services And Outsourcing Manager? No March 17, 2025 11:44am Advance Directives on File No April 20, 2025 12:28pm Living Will No April 20, 2025 12:28pm Do you have a Healthcare Power of Shared Services And Outsourcing Manager? No April 20, 2025 12:28pm Advance Directives No April 20 12:28pm Advance Directive Response Recorded Date/ Time Do you have a Healthcare Power of Shared Services And Outsourcing Manager? No March 17, 2025 11:44am Do you have a Healthcare Power of Shared Services And Outsourcing Manager? No May 13, 2025 12:27pm Advance Directives on File No May 04, 2025 12:10pm Living Will No May 04, 2025 1 2:10pm Do you have a Healthcare Power of Shared Services And Outsourcing Manager? No May 04, 2025 12:10pm Advance Directives No May 04 12:10pm Advance Directive Response Recorded Date/ Time Do you have a Healthcare Pow er of Shared Services And Outsourcing Manager? No March 17, 2025 11:44am Do you have a Healthcare Pow er of Shared Services And Outsourcing Manager? Yes May 13, 2025 6:50pm Name of Medical Power of Shared Services And Outsourcing Manager alyson bennett May 13, 2025 6:50pm Advance Directives on File No May 04, 2025 12:10pm Living Will No May 04, 2025 1 2:10pm Do you have a Healthcare Pow er of Shared Services And Outsourcing Manager? No May 04, 2025 12:10pm Advance Directives No May 04 12:10pm Advance Directive Response Recorded Date/ Time Do you have a Healthcare Pow er of Shared Services And Outsourcing Manager? No March 17, 2025 11:44am Do you have a Healthcare Pow er of Shared Services And Outsourcing Manager? Yes May 13, 2025 6:50pm Name of Medical Power of Shared Services And Outsourcing Manager alyson islas donald May 13, 2025 6:50pm Advance Directives on File No June 01, 2025 12:29pm Living Will No June 01, 2025 12:29pm Do you have a Healthcare Pow er of Shared Services And Outsourcing Manager? No June 01, 2025 12:29pm Advance Directives No June 01 12:29pm Advance Directive Response Recorded Date/ Time Do you have a Healthcare Pow er of Shared Services And Outsourcing Manager? No March 17, 2025 11:44am Do you have a Healthcare Pow er of Shared Services And Outsourcing Manager? Yes May 13, 2025 6:50pm Name of Medical Power of Shared Services And Outsourcing Manager alyson oconnell jaenl bennett May 13, 2025 6:50pm Advance Directives on File No 2024 8:36am Living Will No June 13 8:36am Do you have a Healthcare Pow er of Shared Services And Outsourcing Manager? No June 13, 2025 8:36am Advance Directives No June 13, 2025 8:36am Advance Directive Response Recorded Date/ Time Do you have a Healthcare Pow er of Shared Services And Outsourcing Manager? No March 17, 2025 11:44am Do you have a Healthcare Pow er of Shared Services And Outsourcing Manager? Yes May 13, 2025 6:50pm Name of Medical Power of Shared Services And Outsourcing Manager alyson islas donald May 13, 2025 6:50pm Advance Directives on File No 2024 10:57am Living Will No June 27 10:57am Do you have a Healthcare Pow er of Shared Services And Outsourcing Manager? No June 27, 2025 10:57am Advance Directives No June 27, 2025 10:57am Advance Directive Response Recorded Date/ Time Do you have a Healthcare Pow er of Shared Services And Outsourcing Manager? No March 17, 2025 11:44am Do you have a Healthcare Pow er of Shared Services And Outsourcing Manager? Yes May 13, 2025 6:50pm Name of Medical Power of Shared Services And Outsourcing Manager alysno islas donald May 13, 2025 6:50pm Advance Directives on File No Naida cazares 2024 10:08am Living Will No July 11 10:08am Do you have a Healthcare Pow er of Shared Services And Outsourcing Manager? No July 11, 2025 10:08am Advance Directives No July 10:08am Advance Directive Response Recorded Date/ Time Do you have a Healthcare Pow er of Shared Services And Outsourcing Manager? Yes May 13, 2025 6:50pm Name of Medical Power of Shared Services And Outsourcing Manager alyson islas donald May 13, 2025 6:50pm Advance Directives on File No 2024 1:25pm Living Will No July 27, 2025 1:25pm Do you have a Healthcare Pow er of Shared Services And Outsourcing Manager? No July 27, 2025 1:25pm Advance Directives No July 1:25pm Advance Directive Response Recorded Date/ Time Do you have a Healthcare Pow er of Shared Services And Outsourcing Manager? Yes May 13, 2025 5:50pm Name of Medical Power of Shared Services And Outsourcing Manager alyson islas donald May 13, 2025 5:50pm Advance Directives on File No 2024 10:38am Living Will No September 05 10:38am Do you have a Healthcare Pow er of Shared Services And Outsourcing Manager? No September 05, 2025 10:38am Advance Directives No September 05, 2025 10:38am Chief Complaint and Reason for Visit Chief [...] 2025 7:42a m Encounter for chemotherapy management Ju ne 2024 7:42am Lung nodules April 04, 2025 7:42a m Regional lymph node metastasis present J [facility] 2024 7:42am Chief Complaint Admit Date Amb [...] m Regional lymph node metastasis present J [facility] 2024 7:42am Anemia April 18, 2025 8:49 am Colon cancer April 18, 2025 8:49 am Diarrhea due to drug April 18, 2025 8:4 9am Lung nodules April 18, 2025 8:49 am Regional lymph node metastasis present J [facility] 2024 8:49am Chief Complaint Admit Date Amb [...] node metastasis present J [facility] 2024 7:29am Chief Complaint Admit Date Amb Documentation March [...] [facility] - LABS - [facility] May 04, 2025 12:00pm NEW ONSET ATRIAL FIB WITH RVR, URINARY T RACT May 13, 2025 5:23pm SYNCOPE,ATRIAL FLUTTER, UTI May 13, 5:50pm Reason for Visit Admit Date Colon cancer March 09, 2025 8:53am Lung nodules March 09, 2025 8:53am Regional lymph node metastasis present M 2024 8:53am Colon cancer March 15, 2025 7:58a m Encounter for education March 15, 2025 7 :58am Lung nodules March 15, 2025 7:58a m Regional lymph node metastasis present M 2024 7:58am Colon cancer March 15, 2025 9:51a m Colon cancer March 20, 2025 11:03 am Colon cancer March 21, 2025 7:21a m Encounter for chemotherapy management Ma y 2024 7:21am Lung nodules March 21, 2025 7:21a m Regional lymph node metastasis present M 2024 7:21am Colon cancer April 04, 2025 7:42a m Diarrhea due to drug April 04, 2025 7:42 am Encounter for chemotherapy management Ju ne 2024 7:42am Lung nodules April 04, 2025 7:42a m Regional lymph node metastasis present J [facility] 2024 7:42am Anemia April 18, 2025 8:49 am Colon cancer April 18, 2025 8:49 am Diarrhea due to drug April 18, 2025 8:4 9am Lung nodules April 18, 2025 8:49 am Regional lymph node metastasis present J [facility] 2024 8:49am Anemia May 02, 2025 7:29a m Colon cancer May 02, 2025 7:29a m Diarrhea due to drug May 02, 2025 7:29 am Encounter for chemotherapy management Ju ly 2024 7:29am Lung nodules May 02, 2025 7:29a m Regional lymph node metastasis present J [facility] 2024 7:29am Abnormal brain CT May 13, 2025 5:23 pm Acidosis, lactic May 13, 2025 5:23 pm Acute hypokalemia May 13, 2025 5:23 pm Acute UTI May 13, 2025 5:23 pm Closed head injury May 13, 2025 5:23 pm Colon cancer May 13, 2025 5:23 pm Leukopenia May 13, 2025 5:23 pm Neutropenia May 13, 2025 5:23 pm New onset atrial flutter May 13, 2025 5:23pm Personal history of chemotherapy May [id number] 5:23pm Syncope and collapse May 13, 2025 5:2 3pm Chief Complaint Admit Date Amb Documentation March [...] [facility] - LABS - [facility] May 04, 2025 12:00pm NEW ONSET ATRIAL FIB WITH RVR, URINARY T RACT May 13, 2025 5:23pm SYNCOPE,ATRIAL FLUTTER, UTI May 13 5:50pm NEW ONSET ATRIAL FIB WITH RVR, URINARY T RACT May 14, 2025 3:33pm Chief Complaint Admit Date Amb Documentation March [...] [facility] May 02, 2025 7:2 9am NEW ONSET ATRIAL FIB WITH RVR, URINARY T RACT May 13, 2025 5:23pm SYNCOPE,ATRIAL FLUTTER, UTI May 13, 2 025 5:50pm NEW ONSET ATRIAL FIB WITH RVR, URINARY T RACT May 14, 2025 3:33pm NEW ONSET ATRIAL FIB WITH RVR, URINARY T RACT May 15, 2025 4:45pm 2 WKS - LABS - [facility] May 30, 2025 7: 28am NEW START - LABS - [facility] May 30 7:45am Reason for Visit Admit Date Colon cancer March 09, 2025 8:53am Lung nodules March 09, 2025 8:53am Regional lymph node metastasis present M ay 2024 8:53am Encounter for education March 15, 2025 7 :58am Colon cancer March 15, 2025 7:58a m Lung nodules March 15, 2025 7:58a m Regional lymph node metastasis present M ay 2024 7:58am Colon cancer March 15, 2025 9:51a m Colon cancer March 20, 2025 11:03 am Encounter for chemotherapy management Ma y 2024 7:21am Colon cancer March 21, 2025 7:21a m Lung nodules March 21, 2025 7:21a m Regional lymph node metastasis present M ay 2024 7:21am Diarrhea due to drug April 04, 2025 7:42 am Encounter for chemotherapy management Ju ne 2024 7:42am Colon cancer April 04, 2025 7:42a m Lung nodules April 04, 2025 7:42a m Regional lymph node metastasis present J une 2024 7:42am Anemia April 18, 2025 8:49 am Diarrhea due to drug April 18, 2025 8:4 9am Colon cancer April 18, 2025 8:49 am Lung nodules April 18, 2025 8:49 am Regional lymph node metastasis present J une 2024 8:49am Anemia May 02, 2025 7:29a m Diarrhea due to drug May 02, 2025 7:29 am Encounter for chemotherapy management Ju ly 2024 7:29am Colon cancer May 02, 2025 7:29a m Lung nodules May 02, 2025 7:29a m Regional lymph node metastasis present J [facility] 2024 7:29am Colon cancer May 13, 2025 5:[address] Rosemarie 12th, 2025 5:23 pm Acidosis, lactic May 13, 2025 5:23 pm Acute hypokalemia May 13, 2025 5:23 pm Acute UTI May 13, 2025 5:23 pm Closed head injury May 13, 2025 5:23 pm Leukopenia May 13, 2025 5:23 pm Neutropenia May 13, 2025 5:23 pm New onset atrial flutter May 13, 2025 5:23pm Personal history of chemotherapy May [id number] 5:23pm Syncope and collapse May 13, 2025 5:2 3pm Anemia May 30, 2025 7:28 am Diarrhea due to drug May 30, 2025 7:2 8am Encounter for chemotherapy management Ju ly 2024 7:28am Colon cancer May 30, 2025 7:28 am Lung nodules May 30, 2025 7:28 am Regional lymph node metastasis present J [facility] 2024 7:28am Chief Complaint Admit Date Amb Documentation March [...] [facility] May 02, 2025 7:2 9am NEW ONSET ATRIAL FIB WITH RVR, URINARY T RACT May 13, 2025 5:23pm SYNCOPE,ATRIAL FLUTTER, UTI May 13, 2 025 5:50pm NEW ONSET ATRIAL FIB WITH RVR, URINARY T RACT May 14, 2025 3:33pm NEW ONSET ATRIAL FIB WITH RVR, URINARY T RACT May 15, 2025 4:45pm 2 WKS - LABS - [facility] May 30, 2025 7: 28am NEW START - LABS - [facility] June 01 12:00pm AFIB June 05, 2025 12: 50pm Chief Complaint Admit Date Amb Documentation March 06, 2025 4:41pm COLON CA May 8th, 2025 8:53am CHEMO ED March 15, 2025 [...] [facility] May 02, 2025 7:2 9am NEW ONSET ATRIAL FIB WITH RVR, URINARY T RACT May 13, 2025 5:23pm SYNCOPE,ATRIAL FLUTTER, UTI May 13, 025 5:50pm NEW ONSET ATRIAL FIB WITH RVR, URINARY T RACT May 14, 2025 3:33pm NEW ONSET ATRIAL FIB WITH RVR, URINARY T RACT May 15, 2025 4:45pm 2 WKS - LABS - [place] May 30, 2025 7: 28am AFIB June 05, 2025 12: 50pm 2 WKS - LABS - 5FU June 13, 2025 8: 19am NEW [facility] - LABS - [facility] June 13 8:30am Reason for Visit Admit Date Colon cancer March 09, 2025 8:53am Lung nodules March 09, 2025 8:53am Regional lymph node metastasis present M ay 2024 8:53am Encounter for education March 15, 2025 7 :58am Colon cancer March 15, 2025 7:58a m Lung nodules March 15, 2025 7:58a m Regional lymph node metastasis present M ay 2024 7:58am Colon cancer March 15, 2025 9:51a m Colon cancer March 20, 2025 11:03 am Encounter for chemotherapy management Ma y 2024 7:21am Colon cancer March 21, 2025 7:21a m Lung nodules March 21, 2025 7:21a m Regional lymph node metastasis present M ay 2024 7:21am Diarrhea due to drug April 04, 2025 7:42 am Encounter for chemotherapy management Ju ne 2024 7:42am Colon cancer April 04, 2025 7:42a m Lung nodules April 04, 2025 7:42a m Regional lymph node metastasis present J une 2024 7:42am Anemia April 18, 2025 8:49 am Diarrhea due to drug April 18, 2025 8:4 9am Colon cancer April 18, 2025 8:49 am Lung nodules April 18, 2025 8:49 am Regional lymph node metastasis present J [facility] 2024 8:49am Anemia May 02, 2025 7:29a m Diarrhea due to drug May 02, 2025 7:29 am Encounter for chemotherapy management Ju ly 2024 7:29am Colon cancer May 02, 2025 7:29a m Lung nodules May 02, 2025 7:29a m Regional lymph node metastasis present J [facility] 2024 7:29am Colon cancer May 13, 2025 5:[address] May 13, 2025 5:23 pm Acidosis, lactic May 13, 2025 5:23 pm Acute hypokalemia May 13, 2025 5:23 pm Acute UTI May 13, 2025 5:23 pm Closed head injury May 13, 2025 5:23 pm Leukopenia May 13, 2025 5:23 pm Neutropenia May 13, 2025 5:23 pm New onset atrial flutter May 13, 2025 5:23pm Personal history of chemotherapy May [id number] 5:23pm Syncope and collapse May 13, 2025 5:2 3pm Anemia May 30, 2025 7:28 am Diarrhea due to drug May 30, 2025 7:2 8am Encounter for chemotherapy management Rachell butler 2024 7:28am Colon cancer May 30, 2025 7:28 am Lung nodules May 30, 2025 7:28 am Regional lymph node metastasis present J [facility] 2024 7:28am Anemia June 13, 2025 8: 19am Diarrhea due to drug June 13, 2025 8 :19am Colon cancer June 13, 2025 8: 19am Lung nodules June 13, 2025 8: 19am Regional lymph node metastasis present A ugust 2024 8:19am Chief Complaint Admit Date Amb Documentation March [...] [place] May 02, 2025 7:2 9am NEW ONSET ATRIAL FIB WITH RVR, URINARY T RACT May 13, 2025 5:23pm SYNCOPE,ATRIAL FLUTTER, UTI May 13, 025 5:50pm NEW ONSET ATRIAL FIB WITH RVR, URINARY T RACT May 14, 2025 3:33pm NEW ONSET ATRIAL FIB WITH RVR, URINARY T RACT May 15, 2025 4:45pm 2 WKS - LABS - [facility] May 30, 2025 7: 28am AFIB June 05, 2025 12: 50pm 2 WKS - LABS - 5FU June 13, 2025 8: 19am NEW START - LABS - [facility] June 27, 025 8:45am 2 WKS - LABS - 5FU June 27, 2025 8: 53am Reason for Visit Admit Date Colon cancer March 09, 2025 8:53am Lung nodules March 09, 2025 8:53am Regional lymph node metastasis present M ay 2024 8:53am Colon cancer March 15, 2025 7:58a m Lung nodules March 15, 2025 7:58a m Regional lymph node metastasis present M ay 2024 7:58am Encounter for education March 15, 2025 7 :58am Colon cancer March 15, 2025 9:51a m Colon cancer March 20, 2025 11:03 am Encounter for chemotherapy management Ma y 2024 7:21am Colon cancer March 21, 2025 7:21a m Lung nodules March 21, 2025 7:21a m Regional lymph node metastasis present M ay 2024 7:21am Encounter for chemotherapy management Ju ne 2024 7:42am Colon cancer April 04, 2025 7:42a m Lung nodules April 04, 2025 7:42a m Regional lymph node metastasis present J une 2024 7:42am Diarrhea due to drug April 04, 2025 7:42 am Anemia April 18, 2025 8:49 am Colon cancer April 18, 2025 8:49 am Lung nodules April 18, 2025 8:49 am Regional lymph node metastasis present J une 2024 8:49am Diarrhea due to drug April 18, 2025 8:4 9am Anemia May 02, 2025 7:29a m Encounter for chemotherapy management Ju ly 2024 7:29am Colon cancer May 02, 2025 7:29a m Lung nodules May 02, 2025 7:29a m Regional lymph node metastasis present J [facility] 2024 7:29am Diarrhea due to drug May 02, 2025 7:29 am Syncope and collapse May 13, 2025 5:2 3pm Colon cancer May 13, 2025 5:[address] May 13, 2025 5:23 pm Acidosis, lactic May 13, 2025 5:23 pm Acute hypokalemia May 13, 2025 5:23 pm Acute UTI May 13, 2025 5:23 pm Closed head injury May 13, 2025 5:23 pm Leukopenia May 13, 2025 5:23 pm Neutropenia May 13, 2025 5:23 pm New onset atrial flutter May 13, 2025 5:23pm Personal history of chemotherapy May [id number] 5:23pm Anemia May 30, 2025 7:28 am Encounter for chemotherapy management Rachell butler 2024 7:28am Colon cancer May 30, 2025 7:28 am Lung nodules May 30, 2025 7:28 am Regional lymph node metastasis present J [facility] 2024 7:28am Diarrhea due to drug May 30, 2025 7:2 8am Anemia June 13, 2025 8: 19am Colon cancer June 13, 2025 8: 19am Lung nodules June 13, 2025 8: 19am Regional lymph node metastasis present A [facility] 2024 8:19am Diarrhea due to drug June 13, 2025 8 :19am Anemia June 27, 2025 8: 53am Encounter for chemotherapy management Concepción mccormick 2024 8:53am Colon cancer June 27, 2025 8: 53am Lung nodules June 27, 2025 8: 53am Regional lymph node metastasis present A [facility] 2024 8:53am Diarrhea due to drug June 27, 2025 8 :53am Chief Complaint Admit Date CHEMO ED March 15, 2025 7:58a m [...] [place] May 02, 2025 7:2 9am NEW ONSET ATRIAL FIB WITH RVR, URINARY T RACT May 13, 2025 5:23pm SYNCOPE,ATRIAL FLUTTER, UTI May 13 025 5:50pm NEW ONSET ATRIAL FIB WITH RVR, URINARY T RACT May 14, 2025 3:33pm NEW ONSET ATRIAL FIB WITH RVR, URINARY T RACT May 15, 2025 4:45pm 2 WKS - LABS - [place] May 30, 2025 7: 28am AFIB June 05, 2025 12: 50pm 2 WKS - LABS - 5FU June 13, 2025 8: 19am 2 WKS - LABS - 5FU June 27, 2025 8: 53am NEW START - LABS - [facility] July 11, 2025 8:45am 2 WKS - LABS - [facility] July 11 8:50am Reason for Visit Admit Date Colon cancer March 15, 2025 7:58a m Lung nodules March 15, 2025 7:58a m Regional lymph node metastasis present M ay 2024 7:58am Encounter for education March 15, 2025 7 :58am Colon cancer March 15, 2025 9:51a m Colon cancer March 20, 2025 11:03 am Encounter for chemotherapy management Ma y 2024 7:21am Colon cancer March 21, 2025 7:21a m Lung nodules March 21, 2025 7:21a m Regional lymph node metastasis present M ay 2024 7:21am Encounter for chemotherapy management Ju ne 2024 7:42am Colon cancer April 04, 2025 7:42a m Lung nodules April 04, 2025 7:42a m Regional lymph node metastasis present J une 2024 7:42am Diarrhea due to drug April 04, 2025 7:42 am Anemia April 18, 2025 8:49 am Colon cancer April 18, 2025 8:49 am Lung nodules April 18, 2025 8:49 am Regional lymph node metastasis present J [facility] 2024 8:49am Diarrhea due to drug April 18, 2025 8:4 9am Anemia May 02, 2025 7:29a m Encounter for chemotherapy management Ju ly 2024 7:29am Colon cancer May 02, 2025 7:29a m Lung nodules May 02, 2025 7:29a m Regional lymph node metastasis present J [facility] 2024 7:29am Diarrhea due to drug May 02, 2025 7:29 am Syncope and collapse May 13, 2025 5:2 3pm Colon cancer May 13, 2025 5:[address] May 13, 2025 5:23 pm Acidosis, lactic May 13, 2025 5:23 pm Acute hypokalemia May 13, 2025 5:23 pm Acute UTI May 13, 2025 5:23 pm Closed head injury May 13, 2025 5:23 pm Leukopenia May 13, 2025 5:23 pm Neutropenia May 13, 2025 5:23 pm New onset atrial flutter May 13, 2025 5:23pm Personal history of chemotherapy May [id number] 5:23pm Anemia May 30, 2025 7:28 am Encounter for chemotherapy management Ju carrie 2024 7:28am Colon cancer May 30, 2025 7:28 am Lung nodules May 30, 2025 7:28 am Regional lymph node metastasis present J [facility] 2024 7:28am Diarrhea due to drug May 30, 2025 7:2 8am Anemia June 13, 2025 8: 19am Colon cancer June 13, 2025 8: 19am Lung nodules June 13, 2025 8: 19am Regional lymph node metastasis present A [facility] 2024 8:19am Diarrhea due to drug June 13, 2025 8 :19am Anemia June 27, 2025 8: 53am Encounter for chemotherapy management Concepción anny 2024 8:53am Colon cancer June 27, 2025 8: 53am Lung nodules June 27, 2025 8: 53am Regional lymph node metastasis present A [facility] 2024 8:53am Diarrhea due to drug June 27, 2025 8 :53am Anemia July 11, 2025 8:50am Colon cancer July 11, 2025 8:50am Lung nodules July 11, 2025 8:50am Regional lymph node metastasis present S eptember 2024 8:50am Diarrhea due to drug July 11, 2025 8:50am Chief Complaint Admit Date 2 WKS - LABS - [facility] April 04, 2025 7:4 2am 2 WKS - LABS - [facility] April 18, 2025 8: 49am 2 WKS - LABS - [facility] May 02, 2025 7:2 9am NEW ONSET ATRIAL FIB WITH RVR, URINARY T RACT May 13, 2025 5:23pm SYNCOPE,ATRIAL FLUTTER, UTI May 13 5:50pm NEW ONSET ATRIAL FIB WITH RVR, URINARY T RACT May 14, 2025 3:33pm NEW ONSET ATRIAL FIB WITH RVR, URINARY T RACT May 15, 2025 4:45pm 2 WKS - LABS - [place] May 30, 2025 7: 28am AFIB June 05, 2025 12: 50pm 2 WKS - LABS - 5FU June 13, 2025 8: 19am 2 WKS - LABS - 5FU June 27, 2025 8: 53am 2 WKS - LABS - [facility] July 11 8:50am 2 WKS - LABS - [facility] July 25 8:48am NEW ONSET AFIB (CHOW) July 26, 2025 1:29pm hydration July 27, 2025 11:45am Reason for Visit Admit Date Encounter for chemotherapy management Rachell ne 2024 7:42am Colon cancer April 04, 2025 7:42a m Lung nodules April 04, 2025 7:42a m Regional lymph node metastasis present J une 2024 7:42am Diarrhea due to drug April 04, 2025 7:42 am Anemia April 18, 2025 8:49 am Colon cancer April 18, 2025 8:49 am Lung nodules April 18, 2025 8:49 am Regional lymph node metastasis present J une 2024 8:49am Diarrhea due to drug April 18, 2025 8:4 9am Anemia May 02, 2025 7:29a m Encounter for chemotherapy management Rachell butler 2024 7:29am Colon cancer May 02, 2025 7:29a m Lung nodules May 02, 2025 7:29a m Regional lymph node metastasis present J [facility] 2024 7:29am Diarrhea due to drug May 02, 2025 7:29 am Syncope and collapse May 13, 2025 5:2 3pm Colon cancer May 13, 2025 5:[address] May 13, 2025 5:23 pm Acidosis, lactic May 13, 2025 5:23 pm Acute hypokalemia May 13, 2025 5:23 pm Acute UTI May 13, 2025 5:23 pm Closed head injury May 13, 2025 5:23 pm Leukopenia May 13, 2025 5:23 pm Neutropenia May 13, 2025 5:23 pm New onset atrial flutter May 13, 2025 5:23pm Personal history of chemotherapy May [id number] 5:23pm Anemia May 30, 2025 7:28 am Encounter for chemotherapy management Ju ly 2024 7:28am Colon cancer May 30, 2025 7:28 am Lung nodules May 30, 2025 7:28 am Regional lymph node metastasis present J [facility] 2024 7:28am Diarrhea due to drug May 30, 2025 7:2 8am Anemia June 13, 2025 8: 19am Colon cancer June 13, 2025 8: 19am Lung nodules June 13, 2025 8: 19am Regional lymph node metastasis present A ugust 2024 8:19am Diarrhea due to drug June 13, 2025 8 :19am Anemia June 27, 2025 8: 53am Encounter for chemotherapy management Concepción mccormick 2024 8:53am Colon cancer June 27, 2025 8: 53am Lung nodules June 27, 2025 8: 53am Regional lymph node metastasis present A ugust 2024 8:53am Diarrhea due to drug June 27, 2025 8 :53am Anemia July 11, 2025 8:50am Colon cancer July 11, 2025 8:50am Lung nodules July 11, 2025 8:50am Regional lymph node metastasis present S eptember 2024 8:50am Diarrhea due to drug July 11, 2025 8:50am Anemia July 25, 2025 8:48am Colon cancer July 25, 2025 8:48am Lung nodules July 25, 2025 8:48am Regional lymph node metastasis present S virgiltember 2024 8:48am Diarrhea due to drug July 25 8:48am Atrial flutter July 26, 2025 1:29pm Hypertension July 26, 2025 1:29pm Chief Complaint Admit Date 2 WKS - LABS - [facility] April 18, 2025 8: 49am 2 WKS - LABS - [facility] May 02, 2025 7:2 9am NEW ONSET ATRIAL FIB WITH RVR, URINARY T RACT May 13, 2025 5:23pm SYNCOPE,ATRIAL FLUTTER, UTI May 13 5:50pm NEW ONSET ATRIAL FIB WITH RVR, URINARY T RACT May 14, 2025 3:33pm NEW ONSET ATRIAL FIB WITH RVR, URINARY T RACT May 15, 2025 4:45pm 2 WKS - LABS - [place] May 30, 2025 7: 28am AFIB June 05, 2025 12: 50pm 2 WKS - LABS - 5FU June 13, 2025 8: 19am 2 WKS - LABS - 5FU June 27, 2025 8: 53am 2 WKS - LABS - [place] July 11 8:50am 2 WKS - LABS - [facility] July 25 8:48am NEW ONSET AFIB (CHOW) July 26, 2025 1:29pm atrial fib August 02, 2025 6: 32am 2 WKS - LABS - [facility] August 08, 2025 9:12am hydration August 08, 2025 9: 15am Reason for Visit Admit Date Anemia April 18, 2025 8:49 am Colon cancer April 18, 2025 8:49 am Lung nodules April 18, 2025 8:49 am Regional lymph node metastasis present J une 2024 8:49am Diarrhea due to drug April 18, 2025 8:4 9am Encounter for chemotherapy management Ju ly 2024 7:29am Anemia May 02, 2025 7:29a m Colon cancer May 02, 2025 7:29a m Lung nodules May 02, 2025 7:29a m Regional lymph node metastasis present J [facility]ata 2024 7:29am Diarrhea due to drug May 02, 2025 7:29 am Syncope and collapse May 13, 2025 5:2 3pm Colon cancer May 13, 2025 5:[address] May 13, 2025 5:23 pm Acidosis, lactic May 13, 2025 5:23 pm Acute hypokalemia May 13, 2025 5:23 pm Acute UTI May 13, 2025 5:23 pm Closed head injury May 13, 2025 5:23 pm Leukopenia May 13, 2025 5:23 pm Neutropenia May 13, 2025 5:23 pm New onset atrial flutter May 13, 2025 5:23pm Personal history of chemotherapy May [id number] 5:23pm Encounter for chemotherapy management Ju 2024 7:28am Anemia May 30, 2025 7:28 am Colon cancer May 30, 2025 7:28 am Lung nodules May 30, 2025 7:28 am Regional lymph node metastasis present J [facility] 2024 7:28am Diarrhea due to drug May 30, 2025 7:2 8am Anemia June 13, 2025 8: 19am Colon cancer June 13, 2025 8: 19am Lung nodules June 13, 2025 8: 19am Regional lymph node metastasis present A 2024 8:19am Diarrhea due to drug June 13, 2025 8 :19am Encounter for chemotherapy management [facility] 2024 8:53am Anemia June 27, 2025 8: 53am Colon cancer June 27, 2025 8: 53am Lung nodules June 27, 2025 8: 53am Regional lymph node metastasis present A [facility] 2024 8:53am Diarrhea due to drug June 27, 2025 8 :53am Anemia July 11, 2025 8:50am Colon cancer July 11, 2025 8:50am Lung nodules July 11, 2025 8:50am Regional lymph node metastasis present S eptember 2024 8:50am Diarrhea due to drug July 11, 2025 8:50am Anemia July 25, 2025 8:48am Colon cancer July 25, 2025 8:48am Lung nodules July 25, 2025 8:48am Regional lymph node metastasis present S eptember 2024 8:48am Diarrhea due to drug July 25 8:48am Atrial flutter July 26, 2025 1:29pm Hypertension July 26, 2025 1:29pm Anemia August 08, 2025 9: 12am Colon cancer August 08, 2025 9: 12am Lung nodules August 08, 2025 9: 12am Regional lymph node metastasis present O ct2024 9:12am Chief Complaint Admit Date NEW ONSET ATRIAL FIB WITH RVR, URINARY T RACT May 13, 2025 5:23pm SYNCOPE,ATRIAL FLUTTER, UTI May 13, 025 5:50pm NEW ONSET ATRIAL FIB WITH RVR, URINARY T RACT May 14, 2025 3:33pm NEW ONSET ATRIAL FIB WITH RVR, URINARY T RACT May 15, 2025 4:45pm 2 WKS - LABS - [facility] May 30, 2025 7: 28am AFIB June 05, 2025 12: 50pm 2 WKS - LABS - 5FU June 13, 2025 8: 19am 2 WKS - LABS - 5FU June 27, 2025 8: 53am 2 WKS - LABS - FOLFOX July 11 8:50am 2 WKS - LABS - FOLFOX July 25 8:48am NEW ONSET AFIB (CHOW) July 26, 2025 1:29pm atrial fib August 02, 2025 6: 32am 2 WKS - LABS - FOLFOX August 08, 2025 9:12am 2 WKS - LABS - FOLFOX August 22, 2025 9:06am 2 WKS - LABS - FOLFOX September 05, 2025 9:00am hydration September 07, 2025 9 :30am Reason for Visit Admit Date Syncope and collapse May 13, 2025 5:2 3pm Colon cancer May 13, 2025 5:[address] May 13, 2025 5:23 pm Acidosis, lactic May 13, 2025 5:23 pm Acute hypokalemia May 13, 2025 5:23 pm Acute UTI May 13, 2025 5:23 pm Closed head injury May 13, 2025 5:23 pm Leukopenia May 13, 2025 5:23 pm Neutropenia May 13, 2025 5:23 pm New onset atrial flutter May 13, 2025 5:23pm Personal history of chemotherapy May 132024 5:23pm Encounter for chemotherapy management Ju ly 2024 7:28am Anemia May 30, 2025 7:28 am Colon cancer May 30, 2025 7:28 am Diarrhea due to drug May 30, 2025 7:2 8am Lung nodules May 30, 2025 7:28 am Regional lymph node metastasis present J chata 2024 7:28am Anemia June 13, 2025 8: 19am Colon cancer June 13, 2025 8: 19am Diarrhea due to drug June 13, 2025 8 :19am Lung nodules June 13, 2025 8: 19am Regional lymph node metastasis present A ugust 2024 8:19am Encounter for chemotherapy management Au anny 2024 8:53am Anemia June 27, 2025 8: 53am Colon cancer June 27, 2025 8: 53am Diarrhea due to drug June 27, 2025 8 :53am Lung nodules June 27, 2025 8: 53am Regional lymph node metastasis present A ugust 2024 8:53am Anemia July 11, 2025 8:50am Colon cancer July 11, 2025 8:50am Diarrhea due to drug July 11, 2025 8:50am Lung nodules July 11, 2025 8:50am Regional lymph node metastasis present S eptember 2024 8:50am Anemia July 25, 2025 8:48am Colon cancer July 25, 2025 8:48am Diarrhea due to drug July 25 8:48am Lung nodules July 25, 2025 8:48am Regional lymph node metastasis present S eptember 2024 8:48am Atrial flutter July 26, 2025 1:29pm Hypertension July 26, 2025 1:29pm Anemia August 08, 2025 9: 12am Colon cancer August 08, 2025 9: 12am Diarrhea due to drug August 08, 2025 9 :12am Lung nodules August 08, 2025 9: 12am Regional lymph node metastasis present O ctober 2024 9:12am Anemia August 22, 2025 9 :06am Colon cancer August 22, 2025 9 :06am Diarrhea due to drug August 22, 2025 9:06am Lung nodules August 22, 2025 9 :06am Regional lymph node metastasis present O ctober 2024 9:06am Anemia September 05, 2025 9 :00am Colon cancer September 05, 2025 9 :00am Diarrhea due to drug September 05, 2025 9:00am Lung nodules September 05, 2025 9 :00am Regional lymph node metastasis present N ovember 2024 9:00am Additional Source Comments INFORMATION SOURCE (unrecogn ized section and content) DATE CREATED AUTHOR 04/27/2018 [facility] DATE CREATED AUTHOR AUTHOR'S ORGANIZ ATION 01/02/2024 [facility] ([place]) DATE CREATED AUTHOR AUTHOR'S ORGANIZ ATION 09/26/[address] [facility] DATE CREATED AUTHOR AUTHOR'S ORGANIZ ATION 04/29/2025 [facility] DATE CREATED AUTHOR AUTHOR'S ORGANIZ ATION 05/26/2025 [facility] DATE CREATED AUTHOR AUTHOR'S ORGANIZ ATION 08/07/2025 [facility] DATE CREATED AUTHOR AUTHOR'S ORGANIZ ATION 09/09/2025 [facility] Reason for Visit (unrecogniz ed section and content) Reason Comments New Patient Colon adenocarcinoma at 30 cm, possible mets Specialty Diagnoses / Procedures Referred By Contac t Referred To Contact Colon & Rectal Surgery Diagnoses Adenocarcinoma of colon Flex Boles MD [address] [address] Phone: tel: fax: [facility] [address] [place] [address] Referral ID Status Reason Start Date Expiration Date V isits Requested Visits Authorized [id number] Pending Review 11/22/2024 12/17/2025 1 1 Reason Comments Other Pre op teaching- CER Reason Comments Preoperative Assessment Specialty Diagnoses / Procedures Referred By Contac t Referred To Contact PreOp Diagnoses Malignant neoplasm of ascending colon Sachi Rosas MBBS [address] [place] [address] Phone: tel: fax: Referral ID Status Reason Start Date Expiration Date V isits Requested Visits Authorized [id number] New Request 01/03/2025 01/28/2026 1 1 Reason Onset Date Comments Post-Discharge Follow Up 01/29/2025 Do you have any questions about your follow up process or care instructions that we have provided? Yes Patient Education 01/29/2025 Reason Comments Post Op Visit 01/23/2025 COLECTOMY PARTIAL ROBOTIC XI RIGHT Care Teams (unrecognized sec tion and content) Boss Dyer Relationship Specialty Start Date End Date Shu Chow PA-C [address] [place] [address] PCP - General Physician Cashier Greeter 12/06/24 Boss Dyer Relationship Specialty Start Date End Date Shu Chow PA-C [address] [place] [address] PCP - General Physician Cashier Greeter 12/06/24 Boss Dyer Relationship Specialty Start Date End Date Shu Chow PA-C [address] [place] [address] PCP - General Physician Cashier Greeter 12/06/24 Boss Dyer Relationship Specialty Start Date End Date Shu Chow PA-C [address] [place] [address] PCP - General Physician Cashier Greeter 12/06/24 Boss Dyer Relationship Specialty Start Date End Date Shu Chow PA-C [address] [place] [address] PCP - General Physician Cashier Greeter 12/06/24 Boss Dyer Relationship Specialty Start Date End Date Shu Chow PA-C [address] [place] [address] PCP - General Physician Cashier Greeter 12/06/24 Sachi Rosas MBBS [address] [facility] [address] [place] [address] Colon Rectal Surgeon Colon And Rectal Surgery 01/24/25 Eleonora Mcgarry, director of counterintelligence 01/27/25 Boss Dyer Relationship Specialty Start Date End Date Shu Chow PA-C [address] [place] [address] [place] [address] PCP - General Physician Cashier Greeter 12/06/24 Sachi Rosas MBBS [address] [id number] Colon Rectal Surgeon Colon And Rectal Surgery 01/24/25 Eleonora Mcgarry, director of counterintelligence 01/27/25 Boss Dyer Relationship Specialty Start Date End Date Shu Chow PA-C PCP - General Physician Cashier Greeter 12/06/24 Sachi Rosas MBBS [address] [address] Colon Rectal Surgeon Colon And Rectal Surgery 01/24/25 Desiree Luna LISW Executive Kitchen Manager 02/21/25 Team Status: Active Member Role Status Dates JUVENTINO Hi Primary Care Provider Active Team Status: Active Member Role Status Dates JUVENTINO Hi Primary Care Provider Active Start: March 06, 2025 Shikha Marroquin LPN Attending Provider Active S tart: March 06, 2025 Team Status: Inactive Member Role Status Dates JUVENTINO Hi Primary Care Provider Active Start: March 09, 2025 End: March 09, 2025 Dr. Sachi Rosas MD Referring Provider Active S tart: March 09, 2025 End: March 09, 2025 Dr. [place] MD Attending Provider Active Start: March 09, 2025 End: March 09, 2025 Team Status: Active Member Role Status Dates JUVENTINO Hi Primary Care Provider Active Start: March 09, [...] 2025 End: March 15, 2025 Alyssa Lynch WORKDAY FINANCIALS CONSULTANT, WORKDAY FINANCIALS CONSULTANT-C Attending Provider Active Start: March 15, 2025 [...] 2025 End: March 21, 2025 Alyssa Lynch WORKDAY FINANCIALS CONSULTANT, WORKDAY FINANCIALS CONSULTANT-C Attending Provider Active Start: March 21, 2025 [...] 2025 End: April 04, 2025 Alyssa Lynch WORKDAY FINANCIALS CONSULTANT, WORKDAY FINANCIALS CONSULTANT-C Attending Provider Active Start: April 04, 2025 [...] 2025 End: March 15, 2025 Alyssa Lynch WORKDAY FINANCIALS CONSULTANT, WORKDAY FINANCIALS CONSULTANT-C Attending Provider Active Start: March 15, 2025 End: March 15, 2025 Team Status: Inactive Member Role/Relationship Status Dates Shu Chow PA, PA Primary Care Provider Active Start: March 15, 2025 End: March 15, 2025 Shu Chow PA, PA Referring Provider Active Start: March 15, 2025 End: March 15, 2025 Dr. Michael Gaiens MD Attending Provider Active Start: March 15, [...] 2025 End: March 21, 2025 Alyssa Lynch WORKDAY FINANCIALS CONSULTANT, WORKDAY FINANCIALS CONSULTANT-C Attending Provider Active Start: March 21, 2025 End: March 21, 2025 Team Status: Inactive Member Role/Relationship Status Dates Shu Chow PA, PA Primary Care Provider Active Start: April 04, 2025 End: April 04, 2025 Shu Chow PA, PA Referring Provider Active Start: April 04, 2025 End: April 04, 2025 Alyssa Lynch WORKDAY FINANCIALS CONSULTANT, WORKDAY FINANCIALS CONSULTANT-C Attending Provider Active Start: April 04, 2025 [...] 2025 End: May 02, 2025 Alyssa Lynch WORKDAY FINANCIALS CONSULTANT, WORKDAY FINANCIALS CONSULTANT-C Attending Provider Active Start: May 02, 2025 End: May 02, 2025 Team Status: Active Member Role/Relationship Status Dates Shu Chow PA, PA Primary Care Provider Active Start: May 02, 2025 Dr. [place] MD Attending Provider Active Start: May 02, 2025 Dr. New Cnon MD Referring Provider Active Start: May 02, 2025 Team Status: Active Member Role/Relationship Status Dates Shu Chow PA, PA Primary Care Provider Active Start: May 04, 2025 Dr. [place] MD Attending Provider Active Start: May 04, 2025 Dr. [place] MD Referring Provider Active Start: May 04, 2025 Team Status: Active Member Role/Relationship Status Dates Shu Chow PA, PA Primary Care Provider Active Start: May 13, 2025 Dr. Cadence Castillo DO Emergency Provider Active Start: May 13, 2025 Dr. Maciel Montesinos DO Admit Provider Active S tart: May 13, 2025 Dr. Maciel Montesinos DO Attending Provider Active Start: May 13, 2025 Team Status: Active Member Role/Relationship Status Dates Shu Chow PA, PA Primary Care Provider Active Start: May 13, 2025 Dr. Cadence Castillo DO Emergency Provider Active Start: May 13, 2025 Dr. Maciel Montesinos DO Admit Provider Active S tart: May 13, 2025 Dr. Maciel Montesinos DO Attending Provider Active Start: May 13, 2025 Dr. Maciel Montesinos , Other Provider Active S tart: May 13, 2025 Team Status: Inactive Member Role/Relationship Status Dates Shu Chow PA, PA Primary Care Provider Active Start: May 13, 2025 End: May 15, 2025 Dr. Cadence Castillo , Emergency Provider Active Start: May 13, 2025 End: May 15, 2025 Dr. Maciel Montesinos , DO Admit Provider Active S tart: May 13, 2025 End: May 15, 2025 Dr. Maciel Montesinos , Attending Provider Active Start: May 13, 2025 End: May 15, 2025 Team Status: Active Member Role/Relationship Status Dates Shu Chow PA, PA Primary Care Provider Active Start: May 14, 2025 Dr. Cadence Castillo , Emergency Provider Active Start: May 14, 2025 Dr. Maciel Montesinos , DO Admit Provider Active S tart: May 14, 2025 Dr. Maciel Montesinos , Attending Provider Active Start: May 14, 2025 Dr. Maciel Montesinos , Other Provider Active S tart: May 14, 2025 Team Status: Inactive Member Role/Relationship Status Dates Shu Chow PA, PA Primary Care Provider Active Start: May 13, 2025 End: May 15, 2025 Dr. Cadence Castillo , Emergency Provider Active Start: May 13, 2025 End: May 15, 2025 Dr. Maciel Montesinos , Admit Provider Active S tart: May 13, 2025 End: May 15, 2025 Dr. Maciel Montesinos , Attending Provider Active Start: May 13, 2025 End: May 15, 2025 Team Status: Active Member Role/Relationship Status Dates Shu Chwo PA, PA Primary Care Provider Active Start: May 13, 2025 Dr. Cadence Castillo , Emergency Provider Active Start: May 13, 2025 Dr. Maciel Montesinos , Admit Provider Active S tart: May 13, 2025 Dr. Maciel Montesinos , Attending Provider Active Start: May 13, 2025 Dr. Maciel Montesinos , DO Other Provider Active S tart: May 13, 2025 Team Status: Active Member Role/Relationship Status Dates Shu Chow PA, PA Primary Care Provider Active Start: May 14, 2025 Dr. Cadence Castillo , DO Emergency Provider Active Start: May 14, 2025 Dr. Maciel Montesinos , Admit Provider Active S tart: May 14, 2025 Dr. Maciel Montesinos , Attending Provider Active Start: May 14, 2025 Dr. Maciel Montesinos , DO Other Provider Active S tart: May 14, 2025 Team Status: Active Member Role/Relationship Status Dates Shu Chow PA, PA Primary Care Provider Active Start: May 15, 2025 Dr. Cadence Castillo , Emergency Provider Active Start: May 15, 2025 Dr. Maciel Montesinos , DO Admit Provider Active S tart: May 15, 2025 Dr. Maciel Montesinos , Attending Provider Active Start: May 15, 2025 Dr. Maciel Montesinos , DO Other Provider Active S tart: May 15, 2025 Team Status: Inactive Member Role/Relationship Status Dates Shu Chow PA, PA Primary Care Provider Active Start: May 30, 2025 End: May 30, 2025 Shu Chow PA, PA Referring Provider Active Start: May 30, 2025 End: May 30, 2025 Dr. John Esquivel MD Attending Provider Active S tart: May 30, 2025 End: May 30, 2025 Team Status: Active Member Role/Relationship Status Dates Shu Chow PA, PA Primary Care Provider Active Start: May 30, 2025 Dr. [place] MD Attending Provider Active Start: May 30, 2025 Dr. [place] MD Referring Provider Active Start: May 30, 2025 Team Status: Active Member Role/Relationship Status Dates Shu Chow PA, PA Primary Care Provider Active Start: June 01, 2025 Dr. [place] MD Attending Provider Active Start: June 01, 2025 Dr. [place] MD Referring Provider Active Start: June 01, 2025 Team Status: Inactive Member Role/Relationship Status Dates Shu Chow PA, PA Primary Care Provider Active Start: June 05, 2025 End: June 05, 2025 Shu Chow PA, PA Attending Provider Active Start: June 05, 2025 End: June 05, 2025 Shu Chow PA, PA Referring Provider Active Start: June 05, 2025 End: June 05, 2025 Team Status: Active Member Role/Relationship Status Dates Shu Chow PA, PA Primary Care Provider Active Start: June 05, 2025 Dr. Marty Brown MD Attending Provider Active S tart: June 05, 2025 Team Status: Inactive Member Role/Relationship Status Dates Shu Chow PA, PA Primary Care Provider Active Start: June 05, 2025 End: June 05, 2025 Shu Chow PA, PA Attending Provider Active Start: June 05, 2025 End: June 05, 2025 Shu Chow PA, PA Referring Provider Active Start: June 05, 2025 End: June 05, 2025 Team Status: Active Member Role/Relationship Status Dates Shu Chow PA, PA Primary Care Provider Active Start: June 05, 2025 Dr. Marty Brown MD Attending Provider Active S tart: June 05, 2025 Team Status: Inactive Member Role/Relationship Status Dates Shu Chow PA, PA Primary Care Provider Active Start: June 13, 2025 End: June 13, 2025 Shu Chow PA, PA Referring Provider Active Start: June 13, 2025 End: June 13, 2025 Dr. [place] MD Attending Provider Active Start: June 13, 2025 End: June 13, 2025 Team Status: Active Member Role/Relationship Status Dates Shu Chow PA, PA Primary Care Provider Active Start: June 13, 2025 Dr. [place] MD Attending Provider Active Start: June 13, 2025 Dr. [place] MD Referring Provider Active Start: June 13, 2025 Team Status: Active Member Role/Relationship Status Dates Shu Chow PA, PA Primary Care Provider Active Start: June 27, 2025 Dr. New [place] MD Attending Provider Active Start: June 27, 2025 Dr. New [place] MD Referring Provider Active Start: June 27, 2025 Team Status: Inactive Member Role/Relationship Status Dates Shu Chow PA, PA Primary Care Provider Active Start: June 27, 2025 End: June 27, 2025 Shu Chow PA, PA Referring Provider Active Start: June 27, 2025 End: June 27, 2025 Alyssa Lynch WORKDAY FINANCIALS CONSULTANT, WORKDAY FINANCIALS CONSULTANT-C Attending Provider Active Start: June 27, 2025 End: June 27, 2025 Team Status: Inactive Member Role/Relationship Status Dates Shu Chow PA, PA Primary Care Provider Active Start: March 15, 2025 End: March 15, 2025 Shu Chow PA, PA Referring Provider Active Start: March 15, 2025 End: March 15, 2025 Alyssa Lynch WORKDAY FINANCIALS CONSULTANT, WORKDAY FINANCIALS CONSULTANT-C Attending Provider Active Start: March 15, 2025 [...] 2025 End: March 21, 2025 Alyssa Lynch WORKDAY FINANCIALS CONSULTANT, WORKDAY FINANCIALS CONSULTANT-C Attending Provider Active Start: March 21, 2025 End: March 21, 2025 Team Status: Inactive Member Role/Relationship Status Dates Shu Chow PA, PA Primary Care Provider Active Start: April 04, 2025 End: April 04, 2025 Shu Chow PA, PA Referring Provider Active Start: April 04, 2025 End: April 04, 2025 Alyssa Lynch WORKDAY FINANCIALS CONSULTANT, WORKDAY FINANCIALS CONSULTANT-C Attending Provider Active Start: April 04, 2025 [...] 2025 End: May 02, 2025 Alyssa Lynch WORKDAY FINANCIALS CONSULTANT, WORKDAY FINANCIALS CONSULTANT-C Attending Provider Active Start: May 02, 2025 End: May 02, 2025 Team Status: Inactive Member Role/Relationship Status Dates Shu Chow PA, PA Primary Care Provider Active Start: May 13, 2025 End: May 15, 2025 Dr. Cadence Castillo , Emergency Provider Active Start: May 13, 2025 End: May 15, 2025 Dr. Maciel Montesinos , Admit Provider Active S tart: May 13, 2025 End: May 15, 2025 Dr. Maciel Montesinos DO Attending Provider Active Start: May 13, 2025 End: May 15, 2025 Team Status: Active Member Role/Relationship Status Dates Shu Chow PA, PA Primary Care Provider Active Start: May 13, 2025 Dr. Cadence Castillo DO Emergency Provider Active Start: May 13, 2025 Dr. Maciel Montesinos DO Admit Provider Active S tart: May 13, 2025 Dr. Maciel Montesinos DO Attending Provider Active Start: May 13, 2025 Dr. Maciel Montesinos DO Other Provider Active S tart: May 13, 2025 Team Status: Active Member Role/Relationship Status Dates Shu Chow PA, PA Primary Care Provider Active Start: May 14, 2025 Dr. Cadence Castillo DO Emergency Provider Active Start: May 14, 2025 Dr. Maciel Montesinos DO Admit Provider Active S tart: May 14, 2025 Dr. Maciel Montesinos DO Attending Provider Active Start: May 14, 2025 Dr. Maciel Montesinos , DO Other Provider Active S tart: May 14, 2025 Team Status: Active Member Role/Relationship Status Dates Shu Chow PA, PA Primary Care Provider Active Start: May 15, 2025 Dr. Cadence Castillo , Emergency Provider Active Start: May 15, 2025 Dr. Maciel Montesinos , DO Admit Provider Active S tart: May 15, 2025 Dr. Maciel Montesinos , Attending Provider Active Start: May 15, 2025 Dr. Maciel Montesinos , DO Other Provider Active S tart: May 15, 2025 Team Status: Inactive Member Role/Relationship Status Dates Shu Chow PA, PA Primary Care Provider Active Start: May 30, 2025 End: May 30, 2025 Shu Chow PA, PA Referring Provider Active Start: May 30, 2025 End: May 30, 2025 Dr. John Esquivel MD Attending Provider Active S tart: May 30, 2025 End: May 30, 2025 Team Status: Inactive Member Role/Relationship Status Dates Shu Chow PA, PA Primary Care Provider Active Start: June 05, 2025 End: June 05, 2025 Shu Chow PA, PA Attending Provider Active Start: June 05, 2025 End: June 05, 2025 Shu Chow PA, PA Referring Provider Active Start: June 05, 2025 End: June 05, 2025 Team Status: Active Member Role/Relationship Status Dates Shu Chow PA, PA Primary Care Provider Active Start: June 05, 2025 Dr. Marty Brown MD Attending Provider Active S tart: June 05, 2025 Team Status: Inactive Member Role/Relationship Status Dates Shu Chow PA, PA Primary Care Provider Active Start: June 13, 2025 End: June 13, 2025 Shu Chow PA, PA Referring Provider Active Start: June 13, 2025 End: June 13, 2025 Dr. [place] MD Attending Provider Active Start: June 13, 2025 End: June 13, 2025 Team Status: Inactive Member Role/Relationship Status Dates Shu Chow PA, PA Primary Care Provider Active Start: June 27, 2025 End: June 27, 2025 Shu Chow PA, PA Referring Provider Active Start: June 27, 2025 End: June 27, 2025 Alyssa Lynch WORKDAY FINANCIALS CONSULTANT, WORKDAY FINANCIALS CONSULTANT-C Attending Provider Active Start: June 27, 2025 End: June 27, 2025 Team Status: Active Member Role/Relationship Status Dates Shu Chow PA, PA Primary Care Provider Active Start: July 11, 2025 Dr. [place] MD Attending Provider Active Start: July 11, 2025 Dr. [place] MD Referring Provider Active Start: July 11, 2025 Team Status: Inactive Member Role/Relationship Status Dates Shu Chow PA, PA Primary Care Provider Active Start: July 11, 2025 End: July 11, 2025 Shu Chow PA, PA Referring Provider Active Start: July 11, 2025 End: July 11, 2025 Dr. [place] MD Attending Provider Active Start: July 11, 2025 End: July 11, 2025 Team Status: Active Member Role/Relationship Status Dates Shu Chow PA, PA Primary care physician Active Team Status: Inactive Member Role/Relationship Status Dates Shu Chow PA, PA Primary care physician Active Start: April 04, 2025 End: April 04, 2025 Shu Chow PA, PA Referring Provider Active Start: April 04, 2025 End: April 04, 2025 Alyssa Lynch NP, WORKDAY FINANCIALS CONSULTANT-C Attending physician Active Start: April 04, 2025 End: April 04, 2025 Team Status: Inactive Member Role/Relationship Status Dates Shu Chow PA, PA Primary care physician Active Start: April 18, 2025 End: April 18, 2025 Shu Chow PA, PA Referring Provider Active Start: April 18, 2025 End: April 18, 2025 Dr. [place] MD Attending physician Active Start: April 18, 2025 End: April 18, 2025 Team Status: Inactive Member Role/Relationship Status Dates Shu Chow PA, PA Primary care physician Active Start: May 02, 2025 End: May 02, 2025 Shu Chow PA, PA Referring Provider Active Start: May 02, 2025 End: May 02, 2025 Alyssa Lynch NP, WORKDAY FINANCIALS CONSULTANT-C Attending physician Active Start: May 02, 2025 End: May 02, 2025 Team Status: Inactive Member Role/Relationship Status Dates Shu Chow PA, PA Primary care physician Active Start: May 13, 2025 End: May 15, 2025 Dr. Cadence Castillo , Emergency Department Physician Active Start: May 13, 2025 End: May 15, 2025 Dr. Maciel Montesinos DO Admitting physician Active Start: May 13, 2025 End: May 15, 2025 Dr. Maciel Montesinos , Attending physician Active Start: May 13, 2025 End: May 15, 2025 Team Status: Active Member Role/Relationship Status Dates Shu Chow PA, PA Primary care physician Active Start: May 13, 2025 Dr. Cadence Castillo , Emergency Department Physician Active Start: May 13, 2025 Dr. Maciel Montesinos DO Admitting physician Active Start: May 13, 2025 Dr. Maciel Montesinos DO Attending physician Active Start: May 13, 2025 Dr. Maciel Montesinos , Nurse Practitioner Active Start: May 13, 2025 Team Status: Active Member Role/Relationship Status Dates Shu Chow PA, PA Primary care physician Active Start: May 14, 2025 Dr. Cadence Castillo DO Emergency Department Physician Active Start: May 14, 2025 Dr. Maciel Montesinos DO Admitting physician Active Start: May 14, 2025 Dr. Maciel Monteisnos DO Attending physician Active Start: May 14, 2025 Dr. Maciel Montesinos DO Nurse Practitioner Active Start: May 14, 2025 Team Status: Active Member Role/Relationship Status Dates Shu Chow PA, PA Primary care physician Active Start: May 15, 2025 Dr. Cadence Castillo DO Emergency Department Physician Active Start: May 15, 2025 Dr. Maciel Montesinos DO Admitting physician Active Start: May 15, 2025 Dr. Maciel Montesinos DO Attending physician Active Start: May 15, 2025 Dr. Maciel Montesinos DO Nurse Practitioner Active Start: May 15, 2025 Team Status: Inactive Member Role/Relationship Status Dates Shu Chow PA, PA Primary care physician Active Start: May 30, 2025 End: May 30, 2025 Shu Chow PA, PA Referring Provider Active Start: May 30, 2025 End: May 30, 2025 Dr. John Esquivel MD Attending physician Active Start: May 30, 2025 End: May 30, 2025 Team Status: Inactive Member Role/Relationship Status Dates Shu Chow PA, PA Primary care physician Active Start: June 05, 2025 End: June 05, 2025 Shu Chow PA, PA Attending physician Active Start: June 05, 2025 End: June 05, 2025 Shu Chow PA, PA Referring Provider Active Start: June 05, 2025 End: June 05, 2025 Team Status: Active Member Role/Relationship Status Dates Shu Chow PA, PA Primary care physician Active Start: June 05, 2025 Dr. Marty Brown MD Attending physician Active Start: June 05, 2025 Team Status: Inactive Member Role/Relationship Status Dates Shu Chow PA, PA Primary care physician Active Start: June 13, 2025 End: June 13, 2025 Shu Chow PA, PA Referring Provider Active Start: June 13, 2025 End: June 13, 2025 Dr. New [place] MD Attending physician Active Start: June 13, 2025 End: June 13, 2025 Team Status: Inactive Member Role/Relationship Status Dates Shu Chow PA, PA Primary care physician Active Start: June 27, 2025 End: June 27, 2025 Shu Chow PA, PA Referring Provider Active Start: June 27, 2025 End: June 27, 2025 Alyssa Lynch [employer], [employer]-C Attending physician Active Start: June 27, 2025 End: June 27, 2025 Team Status: Inactive Member Role/Relationship Status Dates Shu Chow PA, PA Primary care physician Active Start: July 11, 2025 End: July 11, 2025 Shu Chow PA, PA Referring Provider Active Start: July 11, 2025 End: July 11, 2025 Dr. [place] MD Attending physician Active Start: July 11, 2025 End: July 11, 2025 Team Status: Inactive Member Role/Relationship Status Dates Shu Chow PA, PA Primary care physician Active Start: July 25, 2025 End: July 25, 2025 Shu Chow PA, PA Referring Provider Active Start: July 25, 2025 End: July 25, 2025 Dr. [place] MD Attending physician Active Start: July 25, 2025 End: July 25, 2025 Team Status: Inactive Member Role/Relationship Status Dates Shu Chow PA, PA Primary care physician Active Start: July 26, 2025 End: July 26, 2025 Shu Chow PA, PA Referring Provider Active Start: July 26, 2025 End: July 26, 2025 Dr. Marty Brown MD Attending physician Active Start: July 26, 2025 End: July 26, 2025 Team Status: Active Member Role/Relationship Status Dates Shu Chow PA, PA Primary care physician Active Start: July 27, 2025 Dr. New [place] MD Attending physician Active Start: July 27, 2025 Dr. New [place] MD Referring Provider Active Start: July 27, 2025 Team Status: Inactive Member Role/Relationship Status Dates Shu Chow PA, PA Primary care physician Active Start: April 18, 2025 End: April 18, 2025 Shu Chow PA, PA Referring Provider Active Start: April 18, 2025 End: April 18, 2025 Dr. New [place] MD Attending physician Active Start: April 18, 2025 End: April 18, 2025 Team Status: Inactive Member Role/Relationship Status Dates Shu Chow PA, PA Primary care physician Active Start: May 02, 2025 End: May 02, 2025 Shu Chow PA, PA Referring Provider Active Start: May 02, 2025 End: May 02, 2025 Alyssa Lynch [employer], [employer] Attending physician Active Start: May 02, 2025 End: May 02, 2025 Team Status: Inactive Member Role/Relationship Status Dates Shu Chow PA, PA Primary care physician Active Start: May 13, 2025 End: May 15, 2025 Dr. Cadence Castillo DO Emergency Department Physician Active Start: May 13, 2025 End: May 15, 2025 Dr. Maciel Montesinos DO Admitting physician Active Start: May 13, 2025 End: May 15, 2025 Dr. Maciel Montesinos DO Attending physician Active Start: May 13, 2025 End: May 15, 2025 Team Status: Active Member Role/Relationship Status Dates Shu Chow PA, PA Primary care physician Active Start: May 13, 2025 Dr. Cadence Castillo DO Emergency Department Physician Active Start: May 13, 2025 Dr. Maciel Montesinos , Admitting physician Active Start: May 13, 2025 Dr. Maciel Montesinos , Attending physician Active Start: May 13, 2025 Dr. Maciel Montesinos , Nurse Practitioner Active Start: May 13, 2025 Team Status: Active Member Role/Relationship Status Dates Shu Chow PA, PA Primary care physician Active Start: May 14, 2025 Dr. Cadence Castillo , Emergency Department Physician Active Start: May 14, 2025 Dr. Maciel Montesinos , Admitting physician Active Start: May 14, 2025 Dr. Maciel Montesinos , Attending physician Active Start: May 14, 2025 Dr. Maciel Montesinos , Nurse Practitioner Active Start: May 14, 2025 Team Status: Active Member Role/Relationship Status Dates Shu Chow PA, PA Primary care physician Active Start: May 15, 2025 Dr. Cadence Castillo , Emergency Department Physician Active Start: May 15, 2025 Dr. Maciel Montesinos DO Admitting physician Active Start: May 15, 2025 Dr. Maciel Montesinos DO Attending physician Active Start: May 15, 2025 Dr. Maciel Montesinos , Nurse Practitioner Active Start: May 15, 2025 Team Status: Inactive Member Role/Relationship Status Dates Shu Chow PA, PA Primary care physician Active Start: May 30, 2025 End: May 30, 2025 Shu Chow PA, PA Referring Provider Active Start: May 30, 2025 End: May 30, 2025 Dr. John Esquivel MD Attending physician Active Start: May 30, 2025 End: May 30, 2025 Team Status: Inactive Member Role/Relationship Status Dates Shu Chow PA, PA Primary care physician Active Start: June 05, 2025 End: June 05, 2025 Shu Chow PA, PA Attending physician Active Start: June 05, 2025 End: June 05, 2025 Shu Chow PA, PA Referring Provider Active Start: June 05, 2025 End: June 05, 2025 Team Status: Active Member Role/Relationship Status Dates Shu Chow PA, PA Primary care physician Active Start: June 05, 2025 Dr. Marty Brown MD Attending physician Active Start: June 05, 2025 Team Status: Inactive Member Role/Relationship Status Dates Shu Chow PA, PA Primary care physician Active Start: June 13, 2025 End: June 13, 2025 Shu Chow PA, PA Referring Provider Active Start: June 13, 2025 End: June 13, 2025 Dr. [place] MD Attending physician Active Start: June 13, 2025 End: June 13, 2025 Team Status: Inactive Member Role/Relationship Status Dates Shu Chow PA, PA Primary care physician Active Start: June 27, 2025 End: June 27, 2025 Shu Chow PA, PA Referring Provider Active Start: June 27, 2025 End: June 27, 2025 Alyssa Lynch [employer], [employer] Attending physician Active Start: June 27, 2025 End: June 27, 2025 Team Status: Inactive Member Role/Relationship Status Dates Shu Chow PA, PA Primary care physician Active Start: July 11, 2025 End: July 11, 2025 Shu Chow PA, PA Referring Provider Active Start: July 11, 2025 End: July 11, 2025 Dr. [place] MD Attending physician Active Start: July 11, 2025 End: July 11, 2025 Team Status: Inactive Member Role/Relationship Status Dates Shu Chow PA, PA Primary care physician Active Start: July 25, 2025 End: July 25, 2025 Shu Chow PA, PA Referring Provider Active Start: July 25, 2025 End: July 25, 2025 Dr. [place] MD Attending physician Active Start: July 25, 2025 End: July 25, 2025 Team Status: Inactive Member Role/Relationship Status Dates Shu Chow PA, PA Primary care physician Active Start: July 26, 2025 End: July 26, 2025 Shu Chow PA, PA Referring Provider Active Start: July 26, 2025 End: July 26, 2025 Dr. Marty Brown MD Attending physician Active Start: July 26, 2025 End: July 26, 2025 Team Status: Active Member Role/Relationship Status Dates Dr. Marty Brown MD Attending physician Active Start: August 02, 2025 Dr. Marty Brown MD Referring Provider Active S tart: August 02, 2025 Shu Chow PA, PA Primary care physician Active Start: August 02, 2025 Team Status: Inactive Member Role/Relationship Status Dates Shu Chow PA, PA Primary care physician Active Start: August 08, 2025 End: August 08, 2025 Shu Chow PA, PA Referring Provider Active Start: August 08, 2025 End: August 08, 2025 Dr. [place] MD Attending physician Active Start: August 08, 2025 End: August 08, 2025 Team Status: Active Member Role/Relationship Status Dates Shu Chow PA, PA Primary care physician Active Start: August 08, 2025 Dr. [place] MD Attending physician Active Start: August 08, 2025 Dr. [place] MD Referring Provider Active Start: August 08, 2025 Team Status: Inactive Member Role/Relationship Status Dates Shu Chow PA, PA Primary care physician Active Start: May 13, 2025 End: May 15, 2025 Dr. Cadence Castillo , Emergency Department Physician Active Start: May 13, 2025 End: May 15, 2025 Dr. Maciel Montesinos , Admitting physician Active Start: May 13, 2025 End: May 15, 2025 Dr. Maciel Montesinos , Attending physician Active Start: May 13, 2025 End: May 15, 2025 Team Status: Active Member Role/Relationship Status Dates Shu Chow PA, PA Primary care physician Active Start: May 13, 2025 Dr. Cadence Castillo DO Emergency Department Physician Active Start: May 13, 2025 Dr. Maciel Montesinos DO Admitting physician Active Start: May 13, 2025 Dr. Maciel Montesinos DO Attending physician Active Start: May 13, 2025 Dr. Maciel Montesinos , Nurse Practitioner Active Start: May 13, 2025 Team Status: Active Member Role/Relationship Status Dates Shu Chow PA, PA Primary care physician Active Start: May 14, 2025 Dr. Cadence Castillo DO Emergency Department Physician Active Start: May 14, 2025 Dr. Maciel Montesinos DO Admitting physician Active Start: May 14, 2025 Dr. Maciel Montesinos DO Attending physician Active Start: May 14, 2025 Dr. Maciel Montesinos , Nurse Practitioner Active Start: May 14, 2025 Team Status: Active Member Role/Relationship Status Dates Shu Chow PA, PA Primary care physician Active Start: May 15, 2025 Dr. Cadence Castillo DO Emergency Department Physician Active Start: May 15, 2025 Dr. Maciel Montesinos DO Admitting physician Active Start: May 15, 2025 Dr. Maciel Montesinos DO Attending physician Active Start: May 15, 2025 Dr. Maciel Montesinos DO Nurse Practitioner Active Start: May 15, 2025 Team Status: Inactive Member Role/Relationship Status Dates Shu Chow PA, PA Primary care physician Active Start: May 30, 2025 End: May 30, 2025 Shu Chow PA, PA Referring Provider Active Start: May 30, 2025 End: May 30, 2025 Dr. John Esquivel MD Attending physician Active Start: May 30, 2025 End: May 30, 2025 Team Status: Inactive Member Role/Relationship Status Dates Shu Chow PA, PA Primary care physician Active Start: June 05, 2025 End: June 05, 2025 Shu Chow PA, PA Attending physician Active Start: June 05, 2025 End: June 05, 2025 Shu Chow PA, PA Referring Provider Active Start: June 05, 2025 End: June 05, 2025 Team Status: Active Member Role/Relationship Status Dates Shu Chow PA, PA Primary care physician Active Start: June 05, 2025 Dr. Marty Brown MD Attending physician Active Start: June 05, 2025 Team Status: Inactive Member Role/Relationship Status Dates Shu Chow PA, PA Primary care physician Active Start: June 13, 2025 End: June 13, 2025 Shu Chow PA, PA Referring Provider Active Start: June 13, 2025 End: June 13, 2025 Dr. [place] MD Attending physician Active Start: June 13, 2025 End: June 13, 2025 Team Status: Inactive Member Role/Relationship Status Dates Shu Chow PA, PA Primary care physician Active Start: June 27, 2025 End: June 27, 2025 Shu Chow PA, PA Referring Provider Active Start: June 27, 2025 End: June 27, 2025 Alyssa Lynch [employer], [employer]-C Attending physician Active Start: June 27, 2025 End: June 27, 2025 Team Status: Inactive Member Role/Relationship Status Dates Shu Chow PA, PA Primary care physician Active Start: July 11, 2025 End: July 11, 2025 Shu Chow PA, PA Referring Provider Active Start: July 11, 2025 End: July 11, 2025 Dr. [place] MD Attending physician Active Start: July 11, 2025 End: July 11, 2025 Team Status: Inactive Member Role/Relationship Status Dates Shu Chow PA, PA Primary care physician Active Start: July 25, 2025 End: July 25, 2025 Shu Chow PA, PA Referring Provider Active Start: July 25, 2025 End: July 25, 2025 Dr. [place] MD Attending physician Active Start: July 25, 2025 End: July 25, 2025 Team Status: Inactive Member Role/Relationship Status Dates Shu Chow PA, PA Primary care physician Active Start: July 26, 2025 End: July 26, 2025 Shu Chow PA, PA Referring Provider Active Start: July 26, 2025 End: July 26, 2025 Dr. Marty Brown MD Attending physician Active Start: July 26, 2025 End: July 26, 2025 Team Status: Active Member Role/Relationship Status Dates Dr. Marty Brown MD Attending physician Active Start: August 02, 2025 Dr. Marty Brown MD Referring Provider Active S tart: August 02, 2025 Shu Chow PA, PA Primary care physician Active Start: August 02, 2025 Team Status: Inactive Member Role/Relationship Status Dates Shu Chow PA, PA Primary care physician Active Start: August 08, 2025 End: August 08, 2025 Shu Chow PA, PA Referring Provider Active Start: August 08, 2025 End: August 08, 2025 Dr. [place] MD Attending physician Active Start: August 08, 2025 End: August 08, 2025 Team Status: Inactive Member Role/Relationship Status Dates Shu Chow PA, PA Primary care physician Active Start: August 22, 2025 End: August 22, 2025 Shu Chow PA, PA Referring Provider Active Start: August 22, 2025 End: August 22, 2025 Dr. [place] MD Attending physician Active Start: August 22, 2025 End: August 22, 2025 Team Status: Inactive Member Role/Relationship Status Dates JUVENTINO Hi Primary care physician Active Start: September 05, 2025 End: September 05, 2025 JUVENTINO Hi Referring Provider Active Start: September 05, 2025 End: September 05, 2025 Dr. New [place] MD Attending physician Active Start: September 05, 2025 End: September 05, 2025 Team Status: Active Member Role/Relationship Status Dates JUVENTINO Hi Primary care physician Active Start: September 07, 2025 Dr. New [place] MD Attending physician Active Start: September 07, 2025 Dr. New [place] MD Referring Provider Active Start: September 07, 2025 Scheduled Active and Recently Administ ered [...] 0758 (Unheld by provider - Provider: Malick Ricci APRN-ALICE)0852 (Given - Provider: Rickie Armstrong RN) 0859 [...] Provider: Reyna Maher RN - Reason: Patient/family refused)231 (Given - Provider: Sara Ghotra RN) 0627 (Given - Provider: Sara Ghotra RN) hydroCHLOROthiazide (HYDRODIURIL) tablet 25 mg 25 mg, Oral, DAILY, First dose on Thu01/27/25 at 0900, Until Discontinued 0900 (Given - Provider: Reyna Maher RN) 09 (Given - Provider: Reyna Maher RN) Ibuprofen [...] half., Post-op/Post-Proc 0852 (Given - Provider: Rickie Armstrong, RN) 0900 (Given - Provider: Reyna Maher, RN) 0906 (Given - Provider: Reyna Maher, RN) Continuous Medication Order 01/26/2025 01/27/2025 01/28/2025 [...] bpm 0304 (Given - Provider: Lianna Charles, OMER) Labetalol (NORMODYNE) injection 10 mg 10 mg, Intravenous, EVERY 6 HOURS NEEDED, Starting on Thu01/25/25 at 2031, Until 01/28/25 at 1438, SBP > 160 mmHg with HR >60 bpm, Administration duration: up to 20 mg over 2 minutes. Telemetry required except for MEDICAL DEVICE patients on [address] Floors 6 and 7. For vials: labetalol should be treated as a SINGLE USE VIAL. Discard remaining contents after one use. 0004 (Given - Provider: Lianna Charles, OMER) Melatonin tablet 6 mg 6 mg, Oral, DAILY AT BEDTIME NEEDED, Starting on 01/23/25 at 1444, Until 01/28/25 at 1438, Insomnia, Post-op/Post-Proc Ondansetron 4mg/2ml (ZOFRAN) injection 4 mg 4 mg, Intravenous, EVERY 6 HOURS NEEDED, Starting on Thu01/24/25 at 0720, Until 01/28/25 at 1438, Nausea [...] PRN used in previous 12 hours., Post-op/Post-Proc 0414 (See Alternative - Provider: Lianna Charles RN) Phenol (CHLORASEPTIC) 1.4 % oral spray 1 [...] Oral, EVERY 6 HOURS NEEDED, Starting on Thu01/23/25 [...] BE BASED ON THE PRIMARY CLINICAL RECORDS. [employer] provides no warranty or guarantee of the accuracy or completeness of information in this document.
[2025-09-11 21:26] LABS: Color, Urine Straw (Yellow); Glucose, Dipstick Normal (Normal); Ketone-Dipstick Negative (Negative); Leukocyte Esterase-Dipstick 100 /ul (Negative); Nitrite-Dipstick Negative (Negative); Occult Blood-Urine Negative /ul (Negative); Protein-Dipstick Negative (Negative); Specific Gravity, Urine 1.010 (1.002-1.030); Urine Bilirubin Dipstick Negative (Negative)
[2025-09-11 22:06] LABS: Red Blood Cells-Urine 0-5 SEEN /hpf (0-5); Squamous Epithelial Cells - UA 10-25 SEEN /hpf (5-10)
== END 2025-09-11 22:30 | disposition home or self-care (01) ==
PROVIDERS: Emergency Provider Emergency Medicine; PCP Physician Assistant; Visit Provider Emergency Medicine
DX: J06.9 Acute upper respiratory infection, unspecified (principal); I10 Essential (primary) hypertension; E78.00 Pure hypercholesterolemia, unspecified; G47.33 Obstructive sleep apnea (adult) (pediatric); Z87.891 Personal history of nicotine dependence; Z79.01 Long term (current) use of anticoagulants; Z79.899 Other long term (current) drug therapy
CPT/HCPCS: 36591; 71046; 80053; 81001; 85025; 87631; 99285; A4216

== ENCOUNTER → 2025-10-10 | Outpatient (CLI) | payer MEDICARE, SELFPAY ==
--- NOTE | 2025-10-10 08:23 | CT_ITS ---
PROCEDURE: CT CHEST, ABD, PEL W/CONTRAST 10/10/2025 REASON FOR EXAM: RESTAGING COLON CANCER END OF RX TECHNIQUE: Chest, abdomen and pelvis CT with intravenous contrast. Coronal and Sagittal reconstruction series were provided. One or more dose reduction techniques were used (e.g., Automated exposure control, adjustment of the mA and/or kV according to patient size, use of iterative reconstruction technique. PATIENT PREPARATION: Per protocol ORAL CONTRAST: Was administered. CONTRAST: Isovue 370 VOLUME: 93mL . RADIATION DOSE SUMMARY: Total DLP: 1559.52 MGycm COMPARISON: MR abdomen of December 31, [address] chest of December 31, 2024. CT of the abdomen and pelvis of November 17, 2024. FINDINGS: CT CHEST: Lungs and Airways: The lungs are normally expanded and clear. Pulmonary Nodules: No suspicious pulmonary nodules. Lymph Nodes:No mediastinal hilar or axillary lymphadenopathy. Heart and Pericardium:Mild cardiomegaly and coronary arterial calcifications. Aorta: Thoracic aorta has normal contours; noncontrast technique limits evaluation. Pulmonary Arteries: The pulmonary arteries are grossly unremarkable. Lungs and Airways: The lungs are normally expanded and clear. Pleura:No pleural effusion. No pneumothorax. Upper Abdomen:Visualized portions of the upper abdominal viscera are unremarkable. Bones:Bone windows are unremarkable. Degenerative changes. No destructive bone lesion. Chest wall:Left-sided chest port with tip in the superior vena cava. CT ABDOMEN/PELVIS: LIVER:No enlargement, atrophy, abnormal density, or significant focal lesion. Stable hepatic cysts as noted on previous MR. GALLBLADDER/BILIARY:No dilatation or calcification. No gallstones PANCREAS:No lesion, fluid collection, or duct dilatation. SPLEEN:Unremarkable ADRENALS:No mass or enlargement. KIDNEYS AND URETERS:Multiple bilateral simple renal cysts the largest in the right mid kidney measuring 2.3 cm. No stone. No hydronephrosis. URINARY BLADDER:No focal wall thickening, trabeculation, lesion, or calculus. PELVIC ORGANS:Normal uterus and adnexa. AORTA/VASCULAR:No aneurysm or dissection. RETROPERITONEUM:No mass or adenopathy. LYMPH NODES:Enlarged mesenteric lymph nodes the largest measuring 2 by 1.7 cm (image 66 series 3 and image 41 series 604. increase in size of portal hepatis lymph node now measuring 0.8 x 2.2 cm. INTRAPERITONEAL SPACE:No free air. No significant fluid collection. No mass or adenopathy. STOMACH/BOWEL/MESENTERY:Large duodenal diverticulum. No mass, obstruction, or bowel wall thickening. Status post right hemicolectomy. Normal area of anastomosis. ABDOMINAL WALL:No fluid collections or foreign bodies. No mass or adenopathy. BONES:No osseous lesions or fractures. Multilevel spondylosis and degenerative disc disease. No destructive bone lesion. CT/CT Chest, Abd, Pel w/Contrast IMPRESSION: Status post right hemicolectomy for resection or neoplasm. No bowel obstructio n. Enlarged lymph nodes in the mesentery and gianna hepatis which are concerning fo r localized spread of disease. No evidence of new liver, lung or osseous metastatic disease. Reading Location: [id number]
[2025-10-10] MEDS: 0.9% Saline Lock 10 ML Syringe IV (08:30)
== END | disposition home or self-care (01) ==
LOC: CT 08:23
PROVIDERS: PCP Physician Assistant; Referring Provider Internal Medicine Hematology & Oncology; Visit Provider Internal Medicine Hematology & Oncology
DX: C18.2 Malignant neoplasm of ascending colon (principal); C77.9 Secondary and unspecified malignant neoplasm of lymph node, unspecified
CPT/HCPCS: 71260; 74177; Q9967; A4216